=== PATIENT | male | born 1955 | race Caucasian/White ===

== ENCOUNTER → 2017-01-29 | Day surgery (SDC) | payer OTHER ==
[2017-01-20 13:38] VITALS: Ht 175.3 cm; Wt 64.1 kg
[~2017-01-29] VITALS: Ht 175.3 cm; Wt 64.1 kg
[~2017-01-29] MED LIST: ACET-1311 PO; ALUMSUS2 PO; CALC500C3 PO; CHOL20007 PO; CLON0.5T3 PO; DIPH50TA10 PO; ESCI1TAB6 PO; EpHEDrine SULFATE 50MG/5ML SYR ONE; FERR325T51 PO; FLUT115A INH; GLIM4TAB PO; GUAI1TAB55 PO; LIDOCAINE HCL 2% 2 ML VIAL (20MG/ML) ONE; MAGN400T6 PO; METF-384 PO; METO-157 PO; ONDANSETRON INJ 2 MG/ML 2 ML VIAL IV PRN; PENT400T PO; PRLSR20 PO; PROPOFOL IV EMULSION 10 MG/ML 20 ML VIAL IV ONE; RISP0.258 PO; RSTOPS OP; SIMV40TA2 PO; SITA100T3 PO; TIOTCAP INH; TRAZ-119 PO; ZAFI1TAB10 PO
--- NOTE | 2017-01-29 10:32 | Endo History and Physical ---
History & Physical Date of Service: Jan 29, 2017. Chief Complaint: WEIGHT LOSS, HX OF POLYPS Referring Physician: DR MCDONALD History of Present Illness Patient referred for a history of weight loss and numerous colon polyps. Past Medical History Diabetes, Osteoporosis, Fractures, Reflux, High Cholesterol, Sleep Apnea, Thrombophlebitis, COPD, Kidney Disease Past Surgical History Hx Cardiac Surgery: No Hx Internal Defibrillator: No Hx Pacemaker: No Hx Abdominal Surgery: No Hx of Implantable Prosthesis: No Hx Post-Op Nausea and Vomiting: No Hx Cancer Surgery: No Hx Thoracic Surgery: No Hx Orthopedic: No Hx Urinary Tract Surgery: No Family History None Social History Smoking Status: Former Smoker Hx Substance Use: No Hx Alcohol Use: No Allergies Coded Allergies: Aspirin (Verified Allergy, Unknown, UNKNOWN REACTION, 01/29/17) Cephalexin (Verified Allergy, Unknown, UNKNOWN REACTION, 01/29/17) Cephalosporins (Verified Allergy, Unknown, UNKNOWN REACTION, 01/29/17) Corticosteroids (Verified Allergy, Unknown, UNKNOWN REACTION, 01/29/17) Lactose Intolerance (GI) (Verified Allergy, Unknown, GI SYMPTOMS, 01/29/17) Caregiver reports diarrhea after drinking milk Methylprednisolone (Verified Allergy, Unknown, UNKNOWN REACTION, 01/29/17) Shellfish (Verified Allergy, Unknown, UNKNOWN REACTION, 01/29/17) Current Medications Reported Home Medications Medications Dose Route/Sig Max Daily Dose Days Date Category Lexapro (Escitalopram Oxalate) 5 Mg Tab 5 Mg PO QAM 01/20/17 Reported Accolate (Zafirlukast) 20 Mg Tab 20 Mg PO BID 01/20/17 Reported Advair Hfa 115/21 Mcg (Fluticasone-Salmeterol 115/21 Mcg) 1 Aer Aer 2 Puff INH BID 01/20/17 Reported Diphenhydramine Hcl (Diphenhydramine Hcl (Sleep)) 50 Mg Tab 25 Mg PO DAILY PRN 09/08/16 Reported Zocor (Simvastatin) 40 Mg Tab 40 Mg PO HS 12/13/15 Reported Restasis Eye Drops (Cyclosporine) Soln 1 Drop OP BID PRN 12/13/15 Reported Desyrel (Trazodone Hcl) 50 Mg Tab 50 Mg PO HS 12/13/15 Reported Maalox Max Susp (Al Hydrox/Mg Hydrox/Simethicone) Susp 30 Ml PO HS 10/04/15 Reported Amaryl (Glimepiride) 4 Mg Tab 4 Mg PO BIDM 10/04/15 Reported Vitamin D3 (Cholecalciferol) 2,000 Unit Tab 2,000 Unit PO QAM 10/04/15 Reported Mucinex Ext Rel (Guaifenesin) 600 Mg Tab 600 Mg PO Q12 10/04/15 Reported Mag-Ox (Magnesium Oxide) 400 Mg Tab 400 Mg PO BID 10/04/15 Reported Januvia (Sitagliptin Phosphate) 100 Mg Tab 100 Mg PO HS 09/22/15 Reported Risperdal (Risperidone) 0.25 Mg Tab 0.25 Mg PO HS 07/29/15 Reported Klonopin (Clonazepam) 0.5 Mg Tab 1 Tab PO HS 07/29/15 Reported Iron Supplement (Ferrous Sulfate) 325 Mg Tab 1 Tab PO BID 07/29/15 Reported Tums (Calcium Carbonate) 500 Mg Chew 1 Tab PO BID 07/29/15 Reported Prilosec (Omeprazole) 20 Mg Capcr 20 Mg PO QAM 07/29/15 Reported Spiriva Handihaler (Tiotropium [place]) 18 Mcg/ Aerp 1 Cap INH BID 07/29/15 Reported Reglan (Metoclopramide HCl) 10 Mg Tab 5 Mg PO QID 07/28/15 Reported Glucophage (Metformin Hcl) 1,000 Mg Tab 1,000 Mg PO BID 07/28/15 Reported Tylenol (Acetaminophen) 325 Mg Tab 650 Mg PO QAM 07/31/11 Reported Trental (Pentoxifylline) 400 Mg Tabcr 400 Mg PO TIDM 01/23/11 Reported Vital Signs Weight (Kilograms): 64.09 Height (Feet): 5 Height (Inches): 9 Date Time Temp Pulse Resp B/P Pulse Ox O2 Delivery O2 Flow Rate FiO2 01/29/17 10:25 36.9 68 20 123/61 97 Room Air Physical Exam General Appearance: no apparent distress Respiratory/Chest: Auscultation: deminished air movement Cardiovascular: Heart Auscultation: II/ RICHIE Abdomen: Inspection & Palpation: soft Assessment and Plan Patient with a history of numerous colon polyps for a surveillance colonoscopy today. Also referred by PCM for a history of weight loss (unclear if patient is having dysphagia today). plan EGD Colonoscopy
--- NOTE | 2017-01-29 11:19 | GI REPORT ---
Procedure Date: 01/29/2017 10:52 AM Procedure: Upper GI endoscopy Indications: Dysphagia, Weight loss Medicines: Monitored Anesthesia Care Complications: No immediate complications. Estimated blood loss: Minimal. Estimated Blood Loss: Estimated blood loss was minimal. Procedure: Pre-Anesthesia Assessment: - Prior to the procedure, a History and Physical was performed, and patient medications, allergies and sensitivities were reviewed. The patient's tolerance of previous anesthesia was reviewed. - The risks and benefits of the procedure and the sedation options and risks were discussed with the patient. All questions were answered and informed consent was obtained. - Patient identification and proposed procedure were verified prior to the procedure by the physician, the nurse and the cable tester. The procedure was verified in the procedure room. - Pre-procedure physical examination revealed no contraindications to sedation. - ASA Grade Assessment: III - A patient with severe systemic disease. - After reviewing the risks and benefits, the patient was deemed in satisfactory condition to undergo the procedure. - The anesthesia plan was to use monitored anesthesia care (MAC). - Immediately prior to administration of medications, the patient was re-assessed for adequacy to receive sedatives. - The heart rate, respiratory rate, oxygen saturations, blood pressure, adequacy of pulmonary ventilation, and response to care were monitored throughout the procedure. - The physical status of the patient was re-assessed after the procedure. After obtaining informed consent, the endoscope was passed under direct vision. Throughout the procedure, the patient's blood pressure, pulse, and oxygen saturations were monitored continuously. The scope was introduced through the mouth, and advanced to the second part of duodenum. The upper GI endoscopy was accomplished without difficulty. The patient tolerated the procedure well. Findings: Diffuse candidiasis was found in the entire esophagus. Cells for cytology were obtained by brushing. Estimated blood loss was minimal. No endoscopic abnormality was evident in the esophagus to explain the patient's complaint of dysphagia. It was decided, however, to proceed with dilation of the entire esophagus. A guidewire was placed and the scope was withdrawn. Dilation was performed with a Savary dilator with no resistance at 54 Fr. The endoscope was then reinserted to evaluate the success of the procedure. Estimated blood loss was minimal. The Z-line was regular and was found 36 cm from the incisors. Diffuse mild inflammation characterized by congestion (edema), erythema and granularity was found in the entire examined stomach. Biopsies were taken with a cold forceps for histology. Estimated blood loss was minimal. The examined duodenum was normal. Biopsies were taken with a cold forceps for histology. Estimated blood loss was minimal. Impression: - No endoscopic esophageal abnormality to explain patient's dysphagia (perhaps candidiasis). Esophagus dilated to 54 fr - Z-line regular, 36 cm from the incisors. - Gastritis. Biopsied. - Normal examined duodenum. Biopsied. Recommendation: - Perform a colonoscopy today. - Await pathology results. - Return to referring physician as previously scheduled. - Diflucan for 14 days. Mariana Leslie D.O. Mariana Leslie, 01/29/2017 11:19:41 AM This report has been signed electronically. Note Initiated On: 01/29/2017 10:52 AM I attest to the content of the Intraoperative Record and orders documented therein, exceptions below
--- NOTE | 2017-01-29 11:22 | GI REPORT ---
Procedure Date: 01/29/2017 10:52 AM Procedure: Colonoscopy Indications: High risk colon cancer surveillance: Personal history of colonic polyps Medicines: Monitored Anesthesia Care Complications: No immediate complications. Estimated blood loss: Minimal. Estimated Blood Loss: Estimated blood loss was minimal. Procedure: Pre-Anesthesia Assessment: - Prior to the procedure, a History and Physical was performed, and patient medications, allergies and sensitivities were reviewed. The patient's tolerance of previous anesthesia was reviewed. - The risks and benefits of the procedure and the sedation options and risks were discussed with the patient. All questions were answered and informed consent was obtained. - Patient identification and proposed procedure were verified prior to the procedure by the physician, the nurse and the gastroenterology technician. The procedure was verified in the procedure room. - Pre-procedure physical examination revealed no contraindications to sedation. - ASA Grade Assessment: III - A patient with severe systemic disease. - After reviewing the risks and benefits, the patient was deemed in satisfactory condition to undergo the procedure. - The anesthesia plan was to use monitored anesthesia care (MAC). - Immediately prior to administration of medications, the patient was re-assessed for adequacy to receive sedatives. - The heart rate, respiratory rate, oxygen saturations, blood pressure, adequacy of pulmonary ventilation, and response to care were monitored throughout the procedure. - The physical status of the patient was re-assessed after the procedure. After I obtained informed consent, the scope was passed under direct vision. Throughout the procedure, the patient's blood pressure, pulse, and oxygen saturations were monitored continuously. The scope was introduced through the anus and advanced to the cecum, identified by appendiceal orifice and ileocecal valve. The colonoscopy was performed without difficulty. The patient tolerated the procedure well. The quality of the bowel preparation was good. Findings: The digital rectal exam findings include non-thrombosed external hemorrhoids. Pertinent negatives include normal sphincter tone. The terminal ileum appeared normal. A 6 mm polyp was found in the ascending colon. The polyp was sessile. The polyp was removed with a hot snare. Resection and retrieval were complete. Estimated blood loss was minimal. A post polypectomy scar was found at the hepatic flexure. There was no evidence of the previous polyp. Internal hemorrhoids were found during retroflexion. The hemorrhoids were mild. The exam was otherwise without abnormality. Impression: - Non-thrombosed external hemorrhoids found on digital rectal exam. - The examined portion of the ileum was normal. - One 6 mm polyp in the ascending colon, removed with a hot snare. Resected and retrieved. - Post-polypectomy scar at the hepatic flexure. - Internal hemorrhoids. - The examination was otherwise normal. Recommendation: - Discharge patient to home (ambulatory). - Advance diet as tolerated today. - Await pathology results. - Repeat colonoscopy in 3 - 5 years for surveillance based on pathology results. - Return to GI office PRN. Mariana Leslie D.O. Mariana Leslie, 01/29/2017 11:22:12 AM This report has been signed electronically. Note Initiated On: 01/29/2017 10:52 AM I attest to the content of the Intraoperative Record and orders documented therein, exceptions below
--- NOTE | 2017-01-29 11:25 | Discharge Instructions ---
Endoscopy Patient Instructions Date / Procedure(s) Performed Jan 29, 2017. Colonoscopy, EGD Allergy Information Coded Allergies: Aspirin (Verified Allergy, Unknown, UNKNOWN REACTION, 01/29/17) Cephalexin (Verified Allergy, Unknown, UNKNOWN REACTION, 01/29/17) Cephalosporins (Verified Allergy, Unknown, UNKNOWN REACTION, 01/29/17) Corticosteroids (Verified Allergy, Unknown, UNKNOWN REACTION, 01/29/17) Lactose Intolerance (GI) (Verified Allergy, Unknown, GI SYMPTOMS, 01/29/17) Caregiver reports diarrhea after drinking milk Methylprednisolone (Verified Allergy, Unknown, UNKNOWN REACTION, 01/29/17) Shellfish (Verified Allergy, Unknown, UNKNOWN REACTION, 01/29/17) Discharge Date / Findings Jan 29, 2017. Jayshree esophagitis Mild gastirits 1 colon polyp Hemorrhoids Medication Instructions Stopped Medication(s): PER CAREGIVER PATIENT WAS TOLD TO HOLD MEDICATIONS AFTER FRIDAY Reported Home Medications Medications Dose Route/Sig Max Daily Dose Days Date Category Lexapro (Escitalopram Oxalate) 5 Mg Tab 5 Mg PO QAM 01/20/17 Reported Accolate (Zafirlukast) 20 Mg Tab 20 Mg PO BID 01/20/17 Reported Advair Hfa 115/21 Mcg (Fluticasone-Salmeterol 115/21 Mcg) 1 Aer Aer 2 Puff INH BID 01/20/17 Reported Diphenhydramine Hcl (Diphenhydramine Hcl (Sleep)) 50 Mg Tab 25 Mg PO DAILY PRN 09/08/16 Reported Zocor (Simvastatin) 40 Mg Tab 40 Mg PO HS 12/13/15 Reported Restasis Eye Drops (Cyclosporine) Soln 1 Drop OP BID PRN 12/13/15 Reported Desyrel (Trazodone Hcl) 50 Mg Tab 50 Mg PO HS 12/13/15 Reported Maalox Max Susp (Al Hydrox/Mg Hydrox/Simethicone) Susp 30 Ml PO HS 10/04/15 Reported Amaryl (Glimepiride) 4 Mg Tab 4 Mg PO BIDM 10/04/15 Reported Vitamin D3 (Cholecalciferol) 2,000 Unit Tab 2,000 Unit PO QAM 10/04/15 Reported Mucinex Ext Rel (Guaifenesin) 600 Mg Tab 600 Mg PO Q12 10/04/15 Reported Mag-Ox (Magnesium Oxide) 400 Mg Tab 400 Mg PO BID 10/04/15 Reported Januvia (Sitagliptin Phosphate) 100 Mg Tab 100 Mg PO HS 09/22/15 Reported Risperdal (Risperidone) 0.25 Mg Tab 0.25 Mg PO HS 07/29/15 Reported Klonopin (Clonazepam) 0.5 Mg Tab 1 Tab PO HS 07/29/15 Reported Iron Supplement (Ferrous Sulfate) 325 Mg Tab 1 Tab PO BID 07/29/15 Reported Tums (Calcium Carbonate) 500 Mg Chew 1 Tab PO BID 07/29/15 Reported Prilosec (Omeprazole) 20 Mg Capcr 20 Mg PO QAM 07/29/15 Reported Spiriva Handihaler (Tiotropium [place]) 18 Mcg/ Aerp 1 Cap INH BID 07/29/15 Reported Reglan (Metoclopramide HCl) 10 Mg Tab 5 Mg PO QID 07/28/15 Reported Glucophage (Metformin Hcl) 1,000 Mg Tab 1,000 Mg PO BID 07/28/15 Reported Tylenol (Acetaminophen) 325 Mg Tab 650 Mg PO QAM 07/31/11 Reported Trental (Pentoxifylline) 400 Mg Tabcr 400 Mg PO TIDM 01/23/11 Reported Provider Instructions Activity Restrictions - No exercising or heavy lifting for 24 hours. - Do not drink alcohol the day of the procedure. - Do not drive a car or operate machinery until the day after the procedure. - Do not make any important decisions or sign important papers in 24 hours after the procedure. Following Day: - Return to full activity which may include returning to work/school. Diet Start your diet with liquids and light foods (jello, soup, juice, toast). Then eat your usual diet if not nauseated. Treatment For Common After Affects For mild abdominal pain, bloating, or excessive gas: - Rest - Eat lightly - Lie on right side Follow-Up Information Diflucan 100 mg per day x 2 weeks Please stop Zocor 5 days prior to starting Anesthesia Information What You Should Know You have had a procedure that required some medicine to reduce anxiety and discomfort. This treatment is called moderate sedation. After receiving the treatment, you may be sleepy, but you will be able to breathe on your own. The effects of the treatment may last for several hours. Follow these instructions along with Activity/Diet recommendations noted above: * Do NOT do anything where dizziness or clumsiness would be dangerous. * Rest quietly at home today, then you can be up and about tomorrow. * Have a responsible person stay with you the rest of today. * You may have had an I.V. today. If so, you may take the dressing off later today. Recommendations Call your doctor if: * Trouble breathing * Continuous vomiting for more than 24 hours * Temperature above 101 degrees * Severe abdominal pain or bloating * Pain not relieved by pain medicine ordered * There is increased drainage or redness from any incision * A large amount of rectal bleeding greater than 2-3 tablespoons. (If you had a polyp/s removed or have hemorrhoids, a small amount of blood - from the rectum is to be expected.) * You have any unanswered questions or concerns. IN THE EVENT OF A SERIOUS EMERGENCY, GO TO THE NEAREST EMERGENCY ROOM Your discharge instructions were prepared by provider Mariana Leslie. Patient Instructions Signature Page Isai Kendall Patient (or Guardian) Signature/Date: I have read and understand the instructions given to me by my caregivers. Caregiver/RN/Doctor Signature/Date: The above-named patient and/or guardian has received patient instructions on this date. + Original Patient Signature Page (only) stays with chart. Please make copy for patient.
[2017-01-29 11:55] VITALS: BP 131/60; PULSE 84; O2SAT 100
--- NOTE | 2017-01-29 12:04 | Anesthesiology Progress Note ---
Anesthesia Post Op Note Date & Time Jan 29, 2017 at 12:04 Vital Signs Pain Intensity: 0 Vital Signs Past 12 Hours Date Time Temp Pulse Resp B/P Pulse Ox O2 Delivery O2 Flow Rate FiO2 01/29/17 11:55 84 20 131/60 100 Room Air 01/29/17 11:40 88 20 107/67 99 Room Air 01/29/17 11:25 90 16 88/56 99 Room Air 01/29/17 10:25 36.9 68 20 123/61 97 Room Air Notes Mental Status: alert / awake / arousable, participated in evaluation Pt Amnestic to Procedure: Yes Nausea / Vomiting: adequately controlled Pain: adequately controlled Airway Patency, RR, SpO2: stable & adequate BP & HR: stable & adequate Hydration State: stable & adequate Anesthetic Complications: no major complications apparent Pt doing well.
== END | disposition home or self-care (01) ==
LOC: C.GI 09:34
PROVIDERS: ATTEND Internal Medicine Gastroenterology
DX: Z12.11 Encounter for screening for malignant neoplasm of colon (principal); R13.10 Dysphagia, unspecified; Z86.010 Personal history of colon polyps; R63.4 Abnormal weight loss; D12.2 Benign neoplasm of ascending colon; K29.70 Gastritis, unspecified, without bleeding; K64.4 Residual hemorrhoidal skin tags; K64.8 Other hemorrhoids; K21.9 Gastro-esophageal reflux disease without esophagitis; E11.9 Type 2 diabetes mellitus without complications; G47.30 Sleep apnea, unspecified; J44.9 Chronic obstructive pulmonary disease, unspecified; M81.0 Age-related osteoporosis without current pathological fracture; I80.9 Phlebitis and thrombophlebitis of unspecified site; E78.5 Hyperlipidemia, unspecified; F17.210 Nicotine dependence, cigarettes, uncomplicated; Z88.5 Allergy status to narcotic agent; Z88.8 Allergy status to other drugs, medicaments and biological substances

== ENCOUNTER 2018-01-29 07:53 | Emergency (ER) | payer OTHER ==
[~2018-01-29 07:53] MED LIST changes: -EpHEDrine SULFATE 50MG/5ML SYR ONE; -LIDOCAINE HCL 2% 2 ML VIAL (20MG/ML) ONE; -ONDANSETRON INJ 2 MG/ML 2 ML VIAL IV PRN; -PROPOFOL IV EMULSION 10 MG/ML 20 ML VIAL IV ONE
[2018-01-29 08:04] VITALS: TEMP 36.8
--- NOTE | 2018-01-29 08:45 | EMERGENCY ROOM VISIT NOTE ---
ED Visit Note First contact with patient: 07:55 I have seen and examined this patient with Sandeep Horan and generally agree with the treatment plan as discussed. 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: Chronic (4) Diab Sunshine Wo Compl, Type Ii Or Unspec Type, Not Uncntrld Status: Chronic (5) Esophageal Reflux Status: Chronic (6) Pancreatic Disease Nos Status: Chronic Current/Historical Medications Scheduled Acetaminophen (Tylenol), 650 MG PO QAM Aluminum/Magnesium/Simeth (Maalox Max Susp), 30 ML PO HS Calcium Carbonate (Tums), 1 TAB PO BID Cholecalciferol (Vitamin D3), 2,000 UNIT PO QAM Clonazepam (Klonopin), 1 TAB PO HS Escitalopram Oxalate (Lexapro), 5 MG PO QAM Ferrous Sulfate (Iron Supplement), 1 TAB PO BID Fluticasone-Salmeterol 115/21 Mcg (Advair Hfa 115/21 Mcg), 2 PUFF INH BID Glimepiride (Amaryl), 4 MG PO BIDM Guaifenesin Ext Rel (Mucinex Ext Rel), 600 MG PO Q12 Magnesium Oxide (Mag-Ox), 400 MG PO BID Metformin Hcl (Glucophage), 1,000 MG PO BID Metoclopramide (Reglan), 5 MG PO QID Omeprazole (Prilosec), 20 MG PO QAM Pentoxifylline (Trental), 400 MG PO TIDM Risperidone (Risperdal), 0.25 MG PO HS Simvastatin (Zocor), 40 MG PO HS Sitagliptin Phosphate (Januvia), 100 MG PO HS Tiotropium [place] (Spiriva Handihaler), 1 CAP INH BID Trazodone Hcl (Desyrel), 50 MG PO HS Zafirlukast (Accolate), 20 MG PO BID Scheduled PRN Cyclosporine (Restasis Eye Drops), 1 DROP OP BID PRN for DRY EYES Diphenhydramine Hcl (Sleep) (Diphenhydramine Hcl), 25 MG PO DAILY PRN for allergies Allergies Coded Allergies: Aspirin (Verified Allergy, Unknown, UNKNOWN REACTION, 01/29/17) Cephalexin (Verified Allergy, Unknown, UNKNOWN REACTION, 01/29/17) Cephalosporins (Verified Allergy, Unknown, UNKNOWN REACTION, 01/29/17) Corticosteroids (Verified Allergy, Unknown, UNKNOWN REACTION, 01/29/17) Lactose Intolerance (GI) (Verified Allergy, Unknown, GI SYMPTOMS, 01/29/17) Caregiver reports diarrhea after drinking milk Methylprednisolone (Verified Allergy, Unknown, UNKNOWN REACTION, 01/29/17) Shellfish (Verified Allergy, Unknown, UNKNOWN REACTION, 01/29/17) Vital Signs Date Time Temp Pulse Resp B/P (MAP) Pulse Ox O2 Delivery O2 Flow Rate FiO2 01/29/18 08:04 36.8 86 20 127/62 96 Room Air Laboratory Results Test 01/29/18 08:24 Bedside Glucose 276 mg/dl (70-99) Departure Information Referrals Andrew Montague III, M.D. (PCP) Patient Instructions My [facility]
--- NOTE | 2018-01-29 09:01 | DIAGNOSTIC IMAGING REPORT ---
HEAD CT NONCONTRAST CT DOSE: 1612.57 mGycm HISTORY: Fall with injuries TECHNIQUE: Multiaxial CT images of the head were performed without the use of intravenous contrast. Automated exposure control was utilized for this study. A dose lowering technique was utilized adhering to the principles of ALARA. Comparison: None. Findings: The paranasal sinuses and mastoid air cells are clear. The calvarium and skull base are intact. There is no mass, hematoma, midline shift, acute infarct. White matter hypodensity is nonspecific but suggestive of microvascular ischemic change. The ventricles and sulci demonstrate mild age-related involutional changes. Mild motion artifact. Impression: No acute intracranial abnormality. Electronically signed by: Luan Nair M.D. 01/29/2018 8:59 AM Dictated Date/Time: 01/29/2018 8:53 AM
[2018-01-29] MEDS ORDERED: LACT12LO28 TOP (09:20)
[2018-01-29] MEDS ORDERED: DENO60SO SQ (09:20)
--- NOTE | 2018-01-29 09:23 | DIAGNOSTIC IMAGING REPORT ---
L HIP UNILATERAL 2 VIEWS CLINICAL HISTORY: Left hip pain status post trauma COMPARISON: None. DISCUSSION: No fractures or dislocations are visualized. IMPRESSION: No fractures identified. Electronically signed by: Blair Breaux M.D. 01/29/2018 9:22 AM Dictated Date/Time: 01/29/2018 9:22 AM
--- NOTE | 2018-01-29 09:27 | DIAGNOSTIC IMAGING REPORT ---
L KNEE 3 VIEWS CLINICAL HISTORY: Left knee pain status post trauma COMPARISON: None. DISCUSSION: The bones are osteopenic. There is an old proximal fibular fracture. There is proximal tibiofibular fusion. There are no acute fractures. There are degenerative changes with narrowing of the lateral joint compartment. There is corticated fragmentation of the medial patella. This is felt to be old. IMPRESSION: 1. Osteopenia 2. Old posttraumatic changes 3. No acute fractures 4. Degenerative changes within the lateral joint compartment Electronically signed by: Blair Breaux M.D. 01/29/2018 9:25 AM Dictated Date/Time: 01/29/2018 9:24 AM
[2018-01-29 10:13] VITALS: BP 134/87; PULSE 67; O2SAT 97
--- NOTE | 2018-01-29 13:13 | EMERGENCY ROOM VISIT NOTE ---
History First contact with patient: 07:55 Chief Complaint: FALL Stated Complaint: FALL/L-HIP PAIN History of Present Illness The patient is a 62 year old male [facility] patient, history of mental retardation , type 2 diabetes, bilateral hearing loss and COPD, who presents to the Emergency Room via ambulance for evaluation of injuries from a fall last night/ early this morning. According to EMS, it was uncertain as to whether this fall was witnessed. Upon their arrival, the patient was complaining of left hip pain , however was able to walk to the ambulance with his walker. When asked if the patient had any additional pain on initial evaluation in the emergency department, he reported left knee pain. He was found to have an area of bruising over the medial aspect of the knee. The patient currently denies any other pain, including back pain, neck pain, headache, chest pain or shortness of breath. The patient reports that he is otherwise been healthy recently. He rates his discomfort a 4 out of 10. After staff members arrived from [facility], it was determined that they did hear the patient fall this morning. He immediately called for help, and was found sitting on his buttocks against the wall. They believe that he hit his knee on his walker when he fell. There was no loss of consciousness. They report that he was able to ambulate with his walker, but elected to send him to the emergency department for further evaluation of injuries. Review of Systems Complete review of systems was difficult because of mental retardation history Past Medical/Surgical History Medical Problems: (1) Anemia Nos (2) Asthma, Unspecified (3) Dementia, Unspecified, Without Behavioral Disturbance (4) Diab Sunshine Wo Compl, Type Ii Or Unspec Type, Not Uncntrld (5) Esophageal Reflux (6) Hospital-acquired pneumonia (7) Pancreatic Disease Nos (8) Pneumonia Family History Heart disease Social History Smoking Status: Never Smoker Alcohol Use: occasionally Drug Use: none Marital Status: single Housing Status: other Occupation Status: unemployed, disabled Current/Historical Medications Scheduled Acetaminophen (Tylenol), 650 MG PO QAM Aluminum/Magnesium/Simeth (Maalox Max Susp), 30 ML PO HS Calcium Carbonate (Tums), 1 TAB PO BID Cholecalciferol (Vitamin D3), 2,000 UNIT PO QAM Clonazepam (Klonopin), 0.25 MG PO HS Denosumab (Prolia), 60 MG SQ Q6MO Escitalopram Oxalate (Lexapro), 5 MG PO QAM Ferrous Sulfate (Iron Supplement), 1 TAB PO BID Glimepiride (Amaryl), 4 MG PO BIDM Guaifenesin Ext Rel (Mucinex Ext Rel), 600 MG PO Q12 Magnesium Oxide (Mag-Ox), 400 MG PO BID Metoclopramide (Reglan), 5 MG PO QID Omeprazole (Prilosec), 20 MG PO QAM Pentoxifylline (Trental), 400 MG PO TIDM Risperidone (Risperdal), 0.25 MG PO HS Simvastatin (Zocor), 40 MG PO HS Sitagliptin Phosphate (Januvia), 100 MG PO HS Tiotropium [place] (Spiriva Handihaler), 1 CAP INH BID Trazodone Hcl (Desyrel), 50 MG PO 2000 Zafirlukast (Accolate), 20 MG PO BID Scheduled PRN Lactic Acid (Ammonium Lactate) (Ammonium Lactate), 0 TOP UD PRN for DRYNESS Physical Exam Vital Signs Date Time Temp Pulse Resp B/P (MAP) Pulse Ox O2 Delivery O2 Flow Rate FiO2 01/29/18 10:13 67 20 134/87 97 01/29/18 08:04 36.8 86 20 127/62 96 Room Air Physical Exam CONSTITUTIONAL: Healthy and well nourished. Alert and oriented X 3 with positive affect. Patient does not appear in any acute distress. GCS 15. HEENT: Normocephalic, atraumatic. Pupils equal, round and reactive. No obvious scalp hematomas, abrasions, ecchymosis, epistaxis, hemotympanum, raccoon 's eyes or leal sign. NECK: Full active range of motion without discomfort. No focal tenderness to palpation through the central cervical spine or cervical musculature. RESPIRATORY: Clear to auscultation bilaterally with no wheezing, crackles, rhonchi or stridor. CARDIOVASCULAR: Regular rate and rhythm with a grade 2 out of 6 systolic ejection murmur. No rubs or gallops. GASTROINTESTINAL: Bowel sounds present in all quadrants. Soft and nontender to palpation. MUSCULOSKELETAL: Examination shows generalized tenderness to palpation over the left lateral hip with an area of ecchymosis. He also has an area of ecchymosis and edema over the left medial knee region. Patient has no significant worsening discomfort with range of motion of the hip or knee. Pelvis stable with rock. Patient has no other tenderness to palpation through the other extremities, ribs or thoracic or lumbar spine. Equal handgrip bilaterally. Ankle plantar/dorsiflexion strength is 4 out of 5 and symmetric bilaterally. The patient has calluses over the lateral plantar foot region without evidence for infection. Distal pulses are intact. INTEGUMENTARY: No rash or other significant dermatologic conditions noted. NEUROLOGIC: No focal neurologic deficits noted. Upper and lower extremities are sensory intact. Medical Decision & Procedures ER Provider Diagnostic Interpretation: My interpretation of an ECG shows a normal sinus rhythm of [address] elevation or other conduction abnormalities. Noncontrast CT of the head does not show any intracranial bleed, midline shift or mass-effect. Radiologist report is as follows: HEAD CT NONCONTRAST CT DOSE: 1612.57 mGycm HISTORY: Fall with injuries TECHNIQUE: Multiaxial CT images of the head were performed without the use of intravenous contrast. Automated exposure control was utilized for this study. A dose lowering technique was utilized adhering to the principles of ALARA. Comparison: None. Findings: The paranasal sinuses and mastoid air cells are clear. The calvarium and skull base are intact. There is no mass, hematoma, midline shift, acute infarct. White matter hypodensity is nonspecific but suggestive of microvascular ischemic change. The ventricles and sulci demonstrate mild age-related involutional changes. Mild motion artifact. Impression: No acute intracranial abnormality. My interpretation of left hip x-rays does not show any obvious fractures or dislocation. Radiologist report is as follows: L HIP UNILATERAL 2 VIEWS CLINICAL HISTORY: Left hip pain status post trauma COMPARISON: None. DISCUSSION: No fractures or dislocations are visualized. IMPRESSION: No fractures identified. My interpretation of left knee x-rays does not show any obvious fractures, dislocation or joint effusion. Radiologist report is as follows: L KNEE 3 VIEWS CLINICAL HISTORY: Left knee pain status post trauma COMPARISON: None. DISCUSSION: The bones are osteopenic. There is an old proximal fibular fracture. There is proximal tibiofibular fusion. There are no acute fractures. There are degenerative changes with narrowing of the lateral joint compartment. There is corticated fragmentation of the medial patella. This is felt to be old. IMPRESSION: 1. Osteopenia 2. Old posttraumatic changes 3. No acute fractures 4. Degenerative changes within the lateral joint compartment Laboratory Results Test 01/29/18 08:24 Bedside Glucose 276 mg/dl (70-99) ED Course Patient history and physical exam were performed. Nurse's notes were reviewed. Vital signs were reviewed and were normal. Patient does not appear in any acute distress. BSG was 276.ECG was normal. Noncontrast CT of the head did not show any acute fractures or intracranial bleed. X-rays of the left hip and left knee were also both normal. On reexam, the nurse told me that the patient was able to ambulate to the bathroom with his walker without any obvious discomfort. At this point, staff from [facility] was present. They were encouraged to intermittently apply ice to areas of discomfort. Continue using his walker to minimize risk of falling. The patient already takes Tylenol daily as needed for pain. I did suggest PCP follow-up with any persistent pain. Both the patient and staff member voiced understanding of all discharge instructions, and the patient denied any significant pain at the time of discharge. The patient was also seen and examined by Dr. Herrera, ED attending physician, who agrees with workup and plan of care. Medical Decision Medication Reconcilliation Current Medication List: was personally reviewed by me Blood Pressure Screening Patient's blood pressure: Normal blood pressure Impression Primary Impression: Contusion of left hip Additional Impressions: Contusion of left knee Fall from ground level Departure Information Referrals Andrew Montague III, M.D. (PCP) Patient Instructions My [facility] Problem Qualifiers Primary Impression: Contusion of left hip Encounter type: initial encounter Qualified Codes: S70.02XA - Contusion of left hip, initial encounter Additional Impressions: Contusion of left knee Encounter type: initial encounter Qualified Codes: S80.02XA - Contusion of left knee, initial encounter
== END 2018-01-29 10:15 | disposition home or self-care (01) ==
LOC: EDBD 07:53 → C.EDB 07:56
DX: S70.02XA Contusion of left hip, initial encounter (principal); S80.02XA Contusion of left knee, initial encounter; W18.30XA Fall on same level, unspecified, initial encounter; E11.9 Type 2 diabetes mellitus without complications; F79 Unspecified intellectual disabilities; J44.9 Chronic obstructive pulmonary disease, unspecified; J45.909 Unspecified asthma, uncomplicated; F03.90 Unspecified dementia, unspecified severity, without behavioral disturbance, psychotic disturbance, mood disturbance, and anxiety; K21.9 Gastro-esophageal reflux disease without esophagitis; Z87.01 Personal history of pneumonia (recurrent); Z79.899 Other long term (current) drug therapy; Z88.6 Allergy status to analgesic agent; Z88.1 Allergy status to other antibiotic agents; Z88.8 Allergy status to other drugs, medicaments and biological substances; Z91.013 Allergy to seafood

== ENCOUNTER 2021-03-02 16:32 | Inpatient (IN) ==
[2021-03-02] MEDS ORDERED: ONDANSETRON INJ 2 MG/ML 2 ML VIAL IV STA (17:13)
[2021-03-02] MEDS ORDERED: SODIUM CHLORIDE 0.9% 500 ML IV SCH (17:15)
[2021-03-02] MEDS ORDERED: NovoLIN-R INSULIN PER UNIT CHARGE IV STA ×2 (17:16→18:28)
--- NOTE | 2021-03-02 17:19 | Emergency Department Note ---
Impression & Plan Hypotension, Pneumonia, Elevated troponin, Diffuse abdominal pain ED Provider Note NAME: JIMMY MABRY AGE: 65 SEX: M : 1955 ARRIVES VIA: Ambulance INFORMANT: [Patient][staff] ED PROVIDER(S): [Beka Sears MD] CHIEF COMPLAINT: Hyperglycemia HISTORY OF PRESENT ILLNESS: The patient is a 65-year-old male presents to the ER with high blood sugars. The sugar has been over 400. The patient has complained of some fatigue and abdominal pain. There has been no vomiting, no fever. The staff at [facility] has noticed a slight cough. The patient cannot give any real history because of his mental state. His caregivers provided the history for us. When asked, the patient complains of some abdominal pain, he denies other areas of pain. No further history obtainable given the mental state. REVIEW OF SYSTEMS: Unobtainable given his mental state. PMHx/PSHx: See Below SOCIAL HISTORY: See Below. PHYSICAL EXAM: GENERAL: Patient is in no acute distress. HEENT: No acute trauma, normocephalic atraumatic, mucous membranes moist, no nasal congestion, no scleral icterus. NECK: No stridor, no adenopathy, no meningismus, trachea is midline. LUNGS: Clear to auscultation bilaterally when listening anteriorly, no wheeze, no rhonchi, breath sounds equal. No respiratory distress. HEART: 2/6 systolic murmur, regular rate and rhythm. ABDOMEN: Soft, mildly diffusely tender, bowel sounds positive, no hernias, no peritonitis. EXTREMITIES: No cyanosis or edema, full range of motion of all the joints without pain or difficulty, no signs for acute trauma. NEUROLOGIC: Awake and alert, no acute motor or sensory deficits, no focal weakness. SKIN: No rash, no jaundice, no diaphoresis. DIFFERENTIAL DIAGNOSIS: Infection, dehydration, metabolic abnormality, diverticulitis, bowel obstruction, DKA, hypo/hyperglycemia, electrolyte disturbance, anemia, hypoxia, cardiac sources, intracerebral event, toxicologic issues, stroke, TIA, as well as other pathologies. EMERGENCY DEPARTMENT COURSE/PROCEDURES: ECG: Indication was abdominal pain. The ECG shows a normal sinus rhythm with a rate of 70. There is no ST elevation, no PVCs. The QTc is 408. Continuous Cardiac Monitoring: An order was placed for continuous cardiac monitoring. The monitor shows a rate of 75 with normal sinus rhythm. Critical Care Note: I have personally spent 47 minutes of critical care time in the direct management of this patient. This includes bedside care, interpreta tion of diagnostic studies, and testing, discussion with consultants, patient, and family members, and other required patient management activities. This 47 minutes is in excess of all separately billable procedures. MEDICAL DECISION MAKING: There is no leukocytosis. The patient does have anemia with a hemoglobin of 10.8. This is a slight drop for him but does not require any emergent correction. Patient did have a lower platelet count but this is baseline loo maldonado back at previous testing. There is no coagulopathy. No kidney failure. Glucose was high at over 300. Lactic acid level was not elevated making severe sepsis less likely. Magnesium was somewhat low at 1.6. No worrisome liver enzyme elevation. Patient appeared to be in a euthyroid state. ECG shows a sinus rhythm, no acute ischemic change. Cardiac enzyme testing x1 does show a slight elevation, this elevation would be consistent with cardiac injury or strain. Urinalysis does not show infection. Covid and influenza testing were negative. Chest film does show a left lung pneumonia. Abdominal and pelvis CT does not show any bowel obstruction. There was some constipation. The left lung pneumonia was seen on the CT. The patient received IV saline, he was given a total of 1 L. He received IV Levaquin as antibiotic coverage. He was given IV magnesium. Patient did receive IV insulin, 6 units. The patient presents with some abdominal pain and cough. He appears to have pne umonia by work-up. He does have a lower blood pressure, he has a high blood sugar. He has an elevated troponin. Given his findings and presentation, a hospital stay is warranted. I spoke to the patient and his staff. I spoke with case management. The on- call hospitalist was consulted. Past Med/Surg History Medical History COPD (chronic obstructive pulmonary disease) Diabetes mellitus, type II GERD (gastroesophageal reflux disease) Intellectual disability [place] (obstructive sleep apnea) PNA (pneumonia) Presence of IVC filter PVD (peripheral vascular disease) Surgical History History of cholecystectomy Family History (Updated 03/02/21 @ 21:34 by Ting Lara PA-C) Father Coronary heart disease Social History Smoking Status: Former smoker Hx Alcohol Use: No Hx Substance Use: No Current Living Situation: Other Current Living Situation Comment: Skills Feels Safe at Home: Yes Allergies Allergies Allergy/AdvReac Type Severity Reaction Status Date / Time lactose Allergy Intermediate GI SYMPTOMS Verified 03/02/21 17:17 aspirin Allergy Unknown UNKNOWN Verified 03/02/21 17:17 REACTION cephalexin Allergy Unknown UNKNOWN Verified 03/02/21 17:17 REACTION Cephalosporins Allergy Unknown UNKNOWN Verified 03/02/21 17:17 REACTION Corticosteroids Allergy Unknown UNKNOWN Verified 03/02/21 17:17 (Glucocorticoids) REACTION methylprednisolone Allergy Unknown UNKNOWN Verified 03/02/21 17:17 REACTION shellfish derived Allergy Unknown UNKNOWN Verified 03/02/21 17:17 REACTION Home Meds Home Medications Medication Instructions Recorded Confirmed acetaminophen 650 mg PO BID 12/23/18 03/02/21 acetaminophen 650 mg PO Q4H PRN MDD 3 GRAM/24 12/23/18 03/02/21 HOURS albuterol sulfate [ProAir HFA] 2 puff INHALATION Q4H PRN 12/23/18 03/02/21 calcium carbonate [Tums] 1 tab PO BID 12/23/18 03/02/21 cholecalciferol (vitamin D3) 1,000 unit PO QAM 12/23/18 03/02/21 [Vitamin D3] clonazepam 0.25 mg PO BID 12/23/18 03/02/21 denosumab [Prolia] 60 mg SUBCUT DIRECTED 12/23/18 03/02/21 escitalopram oxalate [Lexapro] 5 mg PO QAM 12/23/18 03/02/21 glimepiride [Amaryl] 4 mg PO BIDM 12/23/18 03/02/21 guaifenesin [Mucinex] 600 mg PO Q12H 12/23/18 03/02/21 loperamide [Imodium A-D] 2 mg PO UD PRN 12/23/18 03/02/21 magnesium oxide 400 mg PO BID 12/23/18 03/02/21 metformin 1,000 mg PO QAM 12/23/18 03/02/21 metoclopramide HCl [Reglan] 5 mg PO ACHS 12/23/18 03/02/21 omeprazole 20 mg PO QAM 12/23/18 03/02/21 simvastatin [Zocor] 40 mg PO HS 12/23/18 03/02/21 sitagliptin [Januvia] 100 mg PO QAM 12/23/18 03/02/21 trazodone 50 mg PO HS 12/23/18 03/02/21 zafirlukast [Accolate] 20 mg PO BID 12/23/18 03/02/21 alum-mag hydroxide-simeth [Maalox 30 ml PO QPM 04/03/20 03/02/21 Advanced] loratadine [Claritin] 10 mg PO DAILY 04/03/20 03/02/21 pentoxifylline 400 mg PO TID 04/03/20 03/02/21 risperidone 0.25 mg PO QPM 04/03/20 03/02/21 haloperidol 0.5 mg PO BID PRN 03/02/21 03/02/21 umeclidinium [Incruse Ellipta] 1 inh INHALATION DAILY 03/02/21 03/02/21 Results & Data (ED) Vital Signs Vital Signs - 24 hr 03/02/21 16:36 03/02/21 16:40 03/02/21 16:58 Temperature 37.3 C Temperature Source Oral Pulse Rate 77 75 79 Pulse Rate [Bilateral Apical] Pulse Rate from SpO2 Sensor 77 79 Pulse Rhythm Regular Regular Pulse Strength Normal Pulse Strength [Bilateral Apical] Respiratory Rate 25 H 24 25 H Respiratory Effort / Characteristics Non-Labored Spontaneous Respiratory Depth Normal Respiratory Pattern Regular Blood Pressure 101/54 L Blood Pressure [Left Arm] Blood Pressure Mean 69 Blood Pressure Mean [Left Arm] Blood Pressure Position Sitting Pulse Oximetry 95 90 95 Oxygen Delivery Method Room Air Room Air Sepsis Recent Fever Within 48 Hours Yes Sepsis New/Unexplained Change in Mental Status No Sepsis Action Taken by Nursing No Action Required 03/02/21 17:00 03/02/21 17:01 03/02/21 17:10 Temperature Temperature Source Pulse Rate 78 78 77 Pulse Rate [Bilateral Apical] Pulse Rate from SpO2 Sensor 78 78 78 Pulse Rhythm Pulse Strength Pulse Strength [Bilateral Apical] Respiratory Rate 22 25 H 22 Respiratory Effort / Characteristics Respiratory Depth Respiratory Pattern Blood Pressure 90/63 L Blood Pressure [Left Arm] Blood Pressure Mean 72 Blood Pressure Mean [Left Arm] Blood Pressure Position Pulse Oximetry 95 95 96 Oxygen Delivery Method Sepsis Recent Fever Within 48 Hours Sepsis New/Unexplained Change in Mental Status Sepsis Action Taken by Nursing 03/02/21 17:20 03/02/21 17:30 03/02/21 17:31 Temperature Temperature Source Pulse Rate 79 80 78 Pulse Rate [Bilateral Apical] Pulse Rate from SpO2 Sensor 78 79 78 Pulse Rhythm Pulse Strength Pulse Strength [Bilateral Apical] Respiratory Rate 26 H 18 24 Respiratory Effort / Characteristics Respiratory Depth Respiratory Pattern Blood Pressure 92/51 L Blood Pressure [Left Arm] Blood Pressure Mean 64 Blood Pressure Mean [Left Arm] Blood Pressure Position Pulse Oximetry 98 97 96 Oxygen Delivery Method Sepsis Recent Fever Within 48 Hours Sepsis New/Unexplained Change in Mental Status Sepsis Action Taken by Nursing 03/02/21 17:40 03/02/21 17:50 03/02/21 18:00 Temperature Temperature Source Pulse Rate 75 75 77 Pulse Rate [Bilateral Apical] Pulse Rate from SpO2 Sensor 75 75 77 Pulse Rhythm Pulse Strength Pulse Strength [Bilateral Apical] Respiratory Rate 24 26 H 23 Respiratory Effort / Characteristics Respiratory Depth Respiratory Pattern Blood Pressure 98/54 L Blood Pressure [Left Arm] Blood Pressure Mean 68 Blood Pressure Mean [Left Arm] Blood Pressure Position Pulse Oximetry 97 97 96 Oxygen Delivery Method Sepsis Recent Fever Within 48 Hours Sepsis New/Unexplained Change in Mental Status Sepsis Action Taken by Nursing 03/02/21 18:01 03/02/21 18:30 03/02/21 18:31 Temperature Temperature Source Pulse Rate 75 69 68 Pulse Rate [Bilateral Apical] Pulse Rate from SpO2 Sensor 75 69 69 Pulse Rhythm Pulse Strength Pulse Strength [Bilateral Apical] Respiratory Rate 23 21 20 Respiratory Effort / Characteristics Respiratory Depth Respiratory Pattern Blood Pressure 91/49 L Blood Pressure [Left Arm] Blood Pressure Mean 63 Blood Pressure Mean [Left Arm] Blood Pressure Position Pulse Oximetry 96 97 97 Oxygen Delivery Method Sepsis Recent Fever Within 48 Hours Sepsis New/Unexplained Change in Mental Status Sepsis Action Taken by Nursing 03/02/21 19:05 03/02/21 19:46 03/02/21 20:48 Temperature Temperature Source Pulse Rate Pulse Rate [Bilateral Apical] 77 71 Pulse Rate from SpO2 Sensor Pulse Rhythm Pulse Strength Pulse Strength [Bilateral Apical] Normal Respiratory Rate 20 20 20 Respiratory Effort / Characteristics Respiratory Depth Respiratory Pattern Blood Pressure Blood Pressure [Left Arm] 81/53 L 99/57 L 86/51 L Blood Pressure Mean Blood Pressure Mean [Left Arm] 62 71 62 Blood Pressure Position Pulse Oximetry 95 99 97 Oxygen Delivery Method Room Air Room Air Room Air Sepsis Recent Fever Within 48 Hours Sepsis New/Unexplained Change in Mental Status Sepsis Action Taken by Jail Medications Current Medication List: was personally reviewed by me Laboratory Data Attestation: I reviewed the patient's lab results. Result diagrams: 03/02/21 17:10 03/02/21 17:10 Lab Results 03/02/21 03/02/21 03/02/21 Range/Units 16:42 16:44 17:10 WBC 10.72 (4.8-10.8) K/uL RBC 3.37 L (4.7-6.1) M/uL Hgb 10.8 L (14.0-18.0) g/dL Hct 34.5 L (42-52) % MCV 102.4 H (80-100) fL MCH 32.0 (25-34) pg MCHC 31.3 L (32-36) g/dL RDW Std Deviation 53.4 H (36.4-46.3) fL RDW Coeff of Drew 14.2 (11.5-14.5) % Plt Count 129 L (130-400) K/uL MPV 11.1 H (7.4-10.4) fL Immature Gran % (Auto) 0.1 % Neut % (Auto) 86.4 % Lymph % (Auto) 6.7 % [place] % (Auto) 6.6 % Eos % (Auto) 0.1 % Baso % (Auto) 0.1 % Neut # (Auto) 9.26 H (1.4-6.5) K/uL Lymph # (Auto) 0.72 L (1.2-3.4) K/uL [place] # (Auto) 0.71 H (0.11-0.59) K/uL Eos # (Auto) 0.01 (0-0.5) K/uL Baso # (Auto) 0.01 (0-0.2) K/uL Immature Gran # (Auto) 0.01 (0.00-0.02) K/uL PT (9.0-12.0) Seconds INR (0.9-1.1) APTT (21.0-31.0) Seconds PTT Ratio Sodium (136-145) mmol/L Potassium (3.5-5.1) mmol/L Chloride (98-107) mmol/L Carbon Dioxide (21-32) mmol/L Anion Gap (3-11) BUN (7-18) mg/dl Creatinine (0.6-1.4) mg/dl Est Cr Clr Drug Dosing ml/min Est GFR ( Amer) Est GFR (Non-Af Amer) BUN/Creatinine Ratio (10-20) Glucose (70-99) mg/dl POC Glucose 328 H* 345 H* (70-99) mg/dl Lactate (0.4-2.0) mmol/L Calcium (8.5-10.1) mg/dl Magnesium (1.8-2.4) mg/dl Total Bilirubin (0.2-1) mg/dl AST (15-37) U/L ALT (12-78) U/L Alkaline Phosphatase (45-117) U/L Troponin I (0-0.045) ng/ml Total Protein (6.4-8.2) gm/dl Albumin (3.4-5.0) gm/dl Globulin (2.5-4.0) gm/dl Albumin/Globulin Ratio (0.9-2) Beta-Hydroxybutyric Acd TSH (0.300-4.500) uIu/ml Urine Color Urine Appearance (Clear) Urine pH (4.5-7.5) Ur Specific Led[place] (1.000-1.030) Urine Protein (Negative) Urine Glucose (UA) (Negative) Urine Ketones (Negative) Urine Blood (Negative) Urine Nitrite (Negative) Urine Bilirubin (Negative) Urine Urobilinogen (Negative) Ur Leukocyte Esterase (Negative) COVID-19 Eval Order SARS-CoV-2 (PCR) (Negative) Influenza Type A (PCR) (Neg) Influenza Type B (PCR) (Neg) RSV (RT-PCR) (Neg) 03/02/21 03/02/21 03/02/21 Range/Units 17:10 17:10 18:15 WBC (4.8-10.8) K/uL RBC (4.7-6.1) M/uL Hgb (14.0-18.0) g/dL Hct (42-52) % MCV (80-100) fL MCH (25-34) pg MCHC (32-36) g/dL RDW Std Deviation (36.4-46.3) fL RDW Coeff of Drew (11.5-14.5) % Plt Count (130-400) K/uL MPV (7.4-10.4) fL Immature Gran % (Auto) % Neut % (Auto) % Lymph % (Auto) % [place] % (Auto) % Eos % (Auto) % Baso % (Auto) % Neut # (Auto) (1.4-6.5) K/uL Lymph # (Auto) (1.2-3.4) K/uL [place] # (Auto) (0.11-0.59) K/uL Eos # (Auto) (0-0.5) K/uL Baso # (Auto) (0-0.2) K/uL Immature Gran # (Auto) (0.00-0.02) K/uL PT 10.7 (9.0-12.0) Seconds INR 1.1 (0.9-1.1) APTT 26.1 (21.0-31.0) Seconds PTT Ratio 1.0 Sodium 139 (136-145) mmol/L Potassium 4.6 (3.5-5.1) mmol/L Chloride 105 (98-107) mmol/L Carbon Dioxide 29 (21-32) mmol/L Anion Gap 4.0 (3-11) BUN 32 H (7-18) mg/dl Creatinine 1.17 (0.6-1.4) mg/dl Est Cr Clr Drug Dosing 57.7 ml/min Est GFR ( Amer) 74.9 Est GFR (Non-Af Amer) 64.6 BUN/Creatinine Ratio 27.0 H (10-20) Glucose 303 H* (70-99) mg/dl POC Glucose 297 H (70-99) mg/dl Lactate (0.4-2.0) mmol/L Calcium 9.8 (8.5-10.1) mg/dl Magnesium 1.6 L (1.8-2.4) mg/dl Total Bilirubin 0.4 (0.2-1) mg/dl AST 14 L (15-37) U/L ALT 17 (12-78) U/L Alkaline Phosphatase 70 (45-117) U/L Troponin I 0.061 H* (0-0.045) ng/ml Total Protein 6.1 L (6.4-8.2) gm/dl Albumin 3.0 L (3.4-5.0) gm/dl Globulin 3.1 (2.5-4.0) gm/dl Albumin/Globulin Ratio 1.0 (0.9-2) Beta-Hydroxybutyric Acd TNP TSH 1.730 (0.300-4.500) uIu/ml Urine Color Urine Appearance (Clear) Urine pH (4.5-7.5) Ur Specific Ledbetter (1.000-1.030) Urine Protein (Negative) Urine Glucose (UA) (Negative) Urine Ketones (Negative) Urine Blood (Negative) Urine Nitrite (Negative) Urine Bilirubin (Negative) Urine Urobilinogen (Negative) Ur Leukocyte Esterase (Negative) COVID-19 Eval Order SARS-CoV-2 (PCR) (Negative) Influenza Type A (PCR) (Neg) Influenza Type B (PCR) (Neg) RSV (RT-PCR) (Neg) 03/02/21 03/02/21 03/02/21 Range/Units 18:29 18:29 18:51 WBC (4.8-10.8) K/uL RBC (4.7-6.1) M/uL Hgb (14.0-18.0) g/dL Hct (42-52) % MCV (80-100) fL MCH (25-34) pg MCHC (32-36) g/dL RDW Std Deviation (36.4-46.3) fL RDW Coeff of Drew (11.5-14.5) % Plt Count (130-400) K/uL MPV (7.4-10.4) fL Immature Gran % (Auto) % Neut % (Auto) % Lymph % (Auto) % [place] % (Auto) % Eos % (Auto) % Baso % (Auto) % Neut # (Auto) (1.4-6.5) K/uL Lymph # (Auto) (1.2-3.4) K/uL [place] # (Auto) (0.11-0.59) K/uL Eos # (Auto) (0-0.5) K/uL Baso # (Auto) (0-0.2) K/uL Immature Gran # (Auto) (0.00-0.02) K/uL PT (9.0-12.0) Seconds INR (0.9-1.1) APTT (21.0-31.0) Seconds PTT Ratio Sodium (136-145) mmol/L Potassium (3.5-5.1) mmol/L Chloride (98-107) mmol/L Carbon Dioxide (21-32) mmol/L Anion Gap (3-11) BUN (7-18) mg/dl Creatinine (0.6-1.4) mg/dl Est Cr Clr Drug Dosing ml/min Est GFR ( Amer) Est GFR (Non-Af Amer) BUN/Creatinine Ratio (10-20) Glucose (70-99) mg/dl POC Glucose (70-99) mg/dl Lactate 1.9 (0.4-2.0) mmol/L Calcium (8.5-10.1) mg/dl Magnesium (1.8-2.4) mg/dl Total Bilirubin (0.2-1) mg/dl AST (15-37) U/L ALT (12-78) U/L Alkaline Phosphatase (45-117) U/L Troponin I (0-0.045) ng/ml Total Protein (6.4-8.2) gm/dl Albumin (3.4-5.0) gm/dl Globulin (2.5-4.0) gm/dl Albumin/Globulin Ratio (0.9-2) Beta-Hydroxybutyric Acd TSH (0.300-4.500) uIu/ml Urine Color Urine Appearance (Clear) Urine pH (4.5-7.5) Ur Specific [place] (1.000-1.030) Urine Protein (Negative) Urine Glucose (UA) (Negative) Urine Ketones (Negative) Urine Blood (Negative) Urine Nitrite (Negative) Urine Bilirubin (Negative) Urine Urobilinogen (Negative) Ur Leukocyte Esterase (Negative) COVID-19 Eval Order CovFluRsv at [facility] [place] SARS-CoV-2 (PCR) NEGATIVE (Negative) Influenza Type A (PCR) Negative (Neg) Influenza Type B (PCR) Negative (Neg) RSV (RT-PCR) Negative (Neg) 03/02/21 Range/Units 20:22 WBC (4.8-10.8) K/uL RBC (4.7-6.1) M/uL Hgb (14.0-18.0) g/dL Hct (42-52) % MCV (80-100) fL MCH (25-34) pg MCHC (32-36) g/dL RDW Std Deviation (36.4-46.3) fL RDW Coeff of Drew (11.5-14.5) % Plt Count (130-400) K/uL MPV (7.4-10.4) fL Immature Gran % (Auto) % Neut % (Auto) % Lymph % (Auto) % [place] % (Auto) % Eos % (Auto) % Baso % (Auto) % Neut # (Auto) (1.4-6.5) K/uL Lymph # (Auto) (1.2-3.4) K/uL [place] # (Auto) (0.11-0.59) K/uL Eos # (Auto) (0-0.5) K/uL Baso # (Auto) (0-0.2) K/uL Immature Gran # (Auto) (0.00-0.02) K/uL PT (9.0-12.0) Seconds INR (0.9-1.1) APTT (21.0-31.0) Seconds PTT Ratio Sodium (136-145) mmol/L Potassium (3.5-5.1) mmol/L Chloride (98-107) mmol/L Carbon Dioxide (21-32) mmol/L Anion Gap (3-11) BUN (7-18) mg/dl Creatinine (0.6-1.4) mg/dl Est Cr Clr Drug Dosing ml/min Est GFR ( Amer) Est GFR (Non-Af Amer) BUN/Creatinine Ratio (10-20) Glucose (70-99) mg/dl POC Glucose (70-99) mg/dl Lactate (0.4-2.0) mmol/L Calcium (8.5-10.1) mg/dl Magnesium (1.8-2.4) mg/dl Total Bilirubin (0.2-1) mg/dl AST (15-37) U/L ALT (12-78) U/L Alkaline Phosphatase (45-117) U/L Troponin I (0-0.045) ng/ml Total Protein (6.4-8.2) gm/dl Albumin (3.4-5.0) gm/dl Globulin (2.5-4.0) gm/dl Albumin/Globulin Ratio (0.9-2) Beta-Hydroxybutyric Acd TSH (0.300-4.500) uIu/ml Urine Color Yellow Urine Appearance Clear (Clear) Urine pH 5.5 (4.5-7.5) Ur Specific [place] 1.045 H (1.000-1.030) Urine Protein Negative (Negative) Urine Glucose (UA) Negative (Negative) Urine Ketones Negative (Negative) Urine Blood Negative (Negative) Urine Nitrite Negative (Negative) Urine Bilirubin Negative (Negative) Urine Urobilinogen Negative (Negative) Ur Leukocyte Esterase Negative (Negative) COVID-19 Eval Order SARS-CoV-2 (PCR) (Negative) Influenza Type A (PCR) (Neg) Influenza Type B (PCR) (Neg) RSV (RT-PCR) (Neg) Administered Medications Sodium Chloride (Nss 1000ml) 1,000 mls @ 100 mls/hr IV .Q10H STA Stop: 03/03/21 07:04 Last Admin: 03/02/21 21:35 Dose: 100 mls/hr Documented by: [id number] Discontinued Medications Sodium Chloride (Nss) 500 mls @ 999 mls/hr IV .Q31M SEN Stop: 03/02/21 17:45 Last Infusion: 03/02/21 19:38 Dose: 0 mls/hr Documented by: [id number] Admin: 03/02/21 18:17 Dose: 999 mls/hr Documented by: [id number] Magnesium Sulfate/Dextrose (Magnesium Sulfate / D5w) 1 gm in 100 mls @ 100 mls/hr IV NOW STA Stop: 03/02/21 18:53 Last Infusion: 03/02/21 19:47 Dose: 0 mls/hr Documented by: [id number] Admin: 03/02/21 18:49 Dose: 100 mls/hr Documented by: [id number] Levofloxacin/Dextrose (Levaquin/D5w) 750 mg in 150 mls @ 100 mls/hr IV NOW STA Stop: 03/02/21 19:35 Last Infusion: 03/02/21 21:23 Dose: 0 mls/hr Documented by: [id number] Admin: 03/02/21 19:49 Dose: 100 mls/hr Documented by: [id number] Sodium Chloride (Nss 1000ml) 500 mls @ 999 mls/hr IV .Q31M ONE Stop: 03/02/21 19:45 Last Infusion: 03/02/21 20:28 Dose: 0 mls/hr Documented by: [id number] Admin: 03/02/21 19:33 Dose: 999 mls/hr Documented by: [id number] Piperacillin Sod/Tazobactam Sod (Zosyn) 4.5 gm in 120 mls @ 240 mls/hr IV NOW STA Stop: 03/02/21 21:33 Last Admin: 03/02/21 21:35 Dose: 240 mls/hr Documented by: [id number] Insulin Glargine (Insulin Glargine Solostar 100 Units/Ml 3 Ml Pen) 10 units SC NOW STA Stop: 03/02/21 20:41 Last Admin: 03/02/21 21:36 Dose: 10 units Documented by: [id number] Cosigned by: [id number] Insulin Human Regular (Novolin-R Insulin Per Unit Charge) 8 units IV NOW STA Stop: 03/02/21 17:17 Last Admin: 03/02/21 18:42 Dose: Not Given Documented by: [id number] Insulin Human Regular (Novolin-R Insulin Per Unit Charge) 6 units IV NOW STA Stop: 03/02/21 18:29 Last Admin: 03/02/21 18:46 Dose: 6 units Documented by: [id number] Cosigned by: [id number] Ioversol (Optiray 300 100ml) 87 ml IV ONCE ONE Stop: 03/02/21 19:14 Last Admin: 03/02/21 19:14 Dose: 87 ml Documented by: [id number] Ondansetron HCl (Ondansetron Inj 2 Mg/Ml 2 Ml Vial) 4 mg IV NOW STA Stop: 03/02/21 17:14 Last Admin: 03/02/21 18:17 Dose: 4 mg Documented by: [id number] Imaging Data Radiologist's Impression: Abdomen/Pelvis CT 03/02/21 17:13 CT SCAN OF THE ABDOMEN AND PELVIS WITH IV CONTRAST CLINICAL HISTORY: Generalized abdominal pain. Nausea. COMPARISON STUDY: Abdominal CT dated 04/03/2020. TECHNIQUE: Following the IV administration of 87 cc of Optiray 300, CT scan of the abdomen and pelvis is performed from the lung bases to the proximal femora. Images are reviewed in the axial, sagittal, and coronal planes. IV contrast was administered without complication. A dose lowering technique was utilized adhering to the principles of ALARA. The Examination is compromised by motion artifact, as well as by streak artifact from the arms which could not be elevated above the abdomen. CT DOSE: 569.99 mGy.cm FINDINGS: Lung bases: The heart is mildly enlarged and without pericardial effusion. There are coronary artery calcifications. Airspace consolidation is seen at the left lung base, with trace left pleural effusion. Minimal opacities are also seen at the right lung base. Liver: The contrast-enhanced liver is enlarged, measuring 22.5 cm in length. The liver is otherwise normal in contour and attenuation. There is no intrahepatic biliary ductal dilatation. The hepatic veins and portal veins are patent. Gallbladder: Surgically absent noting clips in the gallbladder fossa. Spleen: Normal in size and attenuation. Pancreas: Unremarkable. Adrenal glands: Unremarkable. Kidneys: The contrast enhanced kidneys demonstrate cortical atrophy and are without hydronephrosis. The kidneys enhance symmetrically. Abdominal vasculature: The abdominal aorta is normal in course and caliber noting mild to moderate atherosclerotic calcification. A suprarenal IVC filter is in place. Bowel: There is no bowel obstruction. Moderate fecal retention is seen throughout the colon. The appendix is well-visualized and normal. Peritoneum: No intraperitoneal free air is identified. There is trace perihepatic and pelvic ascites. Lymphadenopathy: None. Pelvic viscera: The prostate gland is diminutive and heterogeneous. There is median lobe hypertrophy. The bladder wall appears thickened and trabeculated indicating chronic outlet obstruction. Skeletal structures: The skeletal structures are osteopenic. Mild lumbosacral spondylosis is noted. No lytic or blastic lesions are seen. There are chronic compression for his of T11, T12, and L1. There are healed bilateral pubic ring fractures. Chronic posterior matter deformity is also noted in the sacrum. There are numerous healed bilateral rib fractures. IMPRESSION: 1. Significantly streak and motion compromised examination. 2. Patchy airspace consolidation is seen throughout the left lower lobe with trace left pleural effusion. Minimal opacities are also seen at the right lung base. The appearance is typical for pneumonia/aspiration pneumonitis. Radiographic follow-up to resolution is recommended. 3. There is trace abdominopelvic ascites. 4. Hepatomegaly. 5. Mild/moderate constipation. 6. Additional findings as above. ACT 112: Negative or not required by law. Electronically signed by: Beka Irby M.D. 03/02/2021 7:55 PM Chest X-Ray 03/02/21 17:13 SINGLE VIEW CHEST CLINICAL HISTORY: Generalized weakness. FINDINGS: An AP, portable, upright chest radiograph is compared to study dated 04/03/2020 and correlated with chest CT dated 09/08/2016. The examination is degraded by portable technique and patient rotation. The heart is enlarged. The pulmonary vasculature is noncongested. There is mild elevation of the left hemidiaphragm. Airspace consolidation is seen in the left mid to lower lung. No large pleural effusion or pneumothorax is seen. The skeletal structures are osteopenic. There are numerous healed right-sided rib fractures. Degenerative change and scoliosis are noted in the thoracic spine. An IVC filter is noted in the upper abdomen. IMPRESSION: 1. Cardiomegaly without radiographic evidence of congestive failure. 2. Airspace consolidation is seen in the left mid to lower lung. Correlate clinically for evidence of pneumonia/aspiration pneumonitis. Radiographic follow-up to resolution is recommended. ACT 112: Negative or not required by law. Electronically signed by: Beka Irby M.D. 03/02/2021 6:00 PM Discharge Plan Visit Data Chief Complaint: Hyperglycemia Stated Complaint: HYPERGLYCEMIA, ILLNESS ED Provider: Beka Sears Discharge Problem: Hypotension, Pneumonia, Elevated troponin, Diffuse abdominal pain Patient Disposition: Admitted As Inpatient Condition: Fair Forms Stand Alone Forms: [facility] Prescriptions Prescriptions: No Action clonazepam 0.5 mg tablet 0.25 mg PO BID RF: 0 trazodone 50 mg Tablet 50 mg PO HS RF: 0 loperamide [Imodium A-D] 2 mg Tablet 2 mg PO UD PRN (Reason: Diarrhea) RF: 0 simvastatin [Zocor] 40 mg Tablet 40 mg PO HS RF: 0 acetaminophen 650 mg Tablet Extended Release 650 mg PO BID RF: 0 acetaminophen 650 mg Tablet Extended Release 650 mg PO Q4H MDD 3 GRAM/24 HOURS PRN (Reason: Pain) RF: 0 metoclopramide HCl [Reglan] 5 mg Tablet 5 mg PO ACHS RF: 0 glimepiride [Amaryl] 4 mg Tablet 4 mg PO BIDM RF: 0 calcium carbonate [Tums] 200 mg calcium (500 mg) Tablet,Chewable 1 tab PO BID RF: 0 zafirlukast [Accolate] 20 mg Tablet 20 mg PO BID RF: 0 albuterol sulfate [ProAir HFA] 90 mcg/actuation Hfa Aerosol Inhaler 2 puff INHALATION Q4H PRN (Reason: Shortness Of Breath) RF: 0 cholecalciferol (vitamin D3) [Vitamin D3] 1,000 unit Capsule 1,000 unit PO QAM RF: 0 escitalopram oxalate [Lexapro] 5 mg Tablet 5 mg PO QAM RF: 0 Januvia 100 mg tablet 100 mg PO QAM RF: 0 omeprazole 20 mg Tablet,Delayed Release (Dr/Ec) 20 mg PO QAM RF: 0 Prolia 60 mg/mL Syringe 60 mg SUBCUT DIRECTED RF: 0 guaifenesin [Mucinex] 600 mg Tablet Extended Release 12hr 600 mg PO Q12H RF: 0 magnesium oxide 400 mg magnesium Tablet 400 mg PO BID RF: 0 metformin 500 mg Tablet Extended Release 24 Hr 1,000 mg PO QAM RF: 0 risperidone 0.25 mg tablet 0.25 mg PO QPM RF: 0 pentoxifylline 400 mg tablet extended release 400 mg PO TID RF: 0 alum-mag hydroxide-simeth [Maalox Advanced] 200-200-20 mg/5 mL Suspension 30 ml PO QPM RF: 0 loratadine [Claritin] 10 mg Tablet 10 mg PO DAILY RF: 0 haloperidol 0.5 mg tablet 0.5 mg PO BID PRN (Reason: ANXIETY/AGGITATION) RF: 0 Incruse Ellipta 62.5 mcg/actuation blister with device 1 inh INHALATION DAILY RF: 0 Referrals Referrals: Andrew Montague MD [Primary Care Provider] - Discharge Problem: Hypotension Qualifiers: Hypotension type: unspecified hypotension type Qualified Code(s): I95.9 - Hypotension, unspecified Pneumonia Qualifiers: Pneumonia type: due to unspecified organism Laterality: left Lung location: lower lobe of lung Qualified Code(s): J18.9 - Pneumonia, unspecified organism
[2021-03-02 17:24] LABS: Basophils # (auto) 0.01 K/uL (0-0.2); Basophils % (auto) 0.1 %; Eosinophils # (auto) 0.01 K/uL (0-0.5); Eosinophils % (auto) 0.1 %; Hematocrit (blood only) 34.5 % (42-52); Hemoglobin 10.8 g/dL (14.0-18.0); Immature Granulocytes # (auto) 0.01 K/uL (0.00-0.02); Immature Granulocytes % (auto) 0.1 %; Lymphocytes # (auto) 0.72 K/uL (1.2-3.4); Lymphocytes % (auto) 6.7 %; Mean Corpuscular Hgb Conc 31.3 g/dL (32-36); Mean Corpuscular Volume 102.4 fL (80-100); Mean Platelet Volume 11.1 fL (7.4-10.4); Monocytes # (auto) 0.71 K/uL (0.11-0.59); Monocytes % (auto) 6.6 %; Neutrophils # (auto) 9.26 K/uL (1.4-6.5); Neutrophils % (auto) 86.4 %; Platelet Count 129 K/uL (130-400); RDW Coefficient of Variation 14.2 % (11.5-14.5); RDW Standard Deviation 53.4 fL (36.4-46.3); Red Blood Count 3.37 M/uL (4.7-6.1); White Blood Count 10.72 K/uL (4.8-10.8)
[2021-03-02 17:49] LABS: Alanine Aminotransferase 17 U/L (12-78); Alkaline Phosphatase 70 U/L (45-117); Aspartate Aminotransferase 14 U/L (15-37); Bilirubin,Total 0.4 mg/dl (0.2-1); Blood Urea Nitrogen 32 mg/dl (7-18); Calcium 9.8 mg/dl (8.5-10.1); Carbon Dioxide 29 mmol/L (21-32); Chloride 105 mmol/L (98-107); Creatinine Clr Calc Pharmacy 57.7 ml/min; Est GFR (African American) 74.9; Est GFR (Non-African American) 64.6; Globulin 3.1 gm/dl (2.5-4.0); Glucose 303 mg/dl (70-99); Magnesium 1.6 mg/dl (1.8-2.4); Potassium 4.6 mmol/L (3.5-5.1); Sodium 139 mmol/L (136-145); Total Protein 6.1 gm/dl (6.4-8.2)
[2021-03-02] MEDS ORDERED: MAGNESIUM SULFATE / D5W 1 GM/100 ML BAG IV STA ×2 (17:54→22:17)
--- NOTE | 2021-03-02 18:01 | XRay Report ---
SINGLE VIEW CHEST CLINICAL HISTORY: Generalized weakness. FINDINGS: An AP, portable, upright chest radiograph is compared to study dated 04/03/2020 and correlate d with chest CT dated 09/08/2016. The examination is degraded by portable technique and patient rotat ion. The heart is enlarged. The pulmonary vasculature is noncongested. There is mild elevation of t he left hemidiaphragm. Airspace consolidation is seen in the left mid to lower lung. No large pleural effusion or pneumothorax is seen. The skeletal structures are osteopenic. There are numerous healed right-sided rib fractures. Degenerative change and scoliosis are noted in the thoracic spine. An IVC filter is noted in the upper abdomen. IMPRESSION: 1. Cardiomegaly without radiographic evidence of congestive failure. 2. Airspace consolidation is seen in the left mid to lower lung. Correlate clinically for evidence of pneumonia/aspiration pneumonitis. Radiographic follow-up to resolution is recommended. ACT 112: Negative or not required by law. Electronically signed by: Beka Irby M.D. 03/02/2021 6:00 PM
[2021-03-02] MEDS ORDERED: levoFLOXacin/D5W 750 MG/150 ML BAG IV STA (18:06)
[2021-03-02 18:38] LABS: Troponin I 0.061 ng/ml (0-0.045)
[2021-03-02] MEDS ORDERED: OPTIRAY 300 100mL IV ONE (19:13)
[2021-03-02] MEDS ORDERED: SODIUM CHLORIDE 0.9% 1000ML 500 ML IV ONE (19:15)
--- NOTE | 2021-03-02 19:57 | CT Scan Report ---
CT SCAN OF THE ABDOMEN AND PELVIS WITH IV CONTRAST CLINICAL HISTORY: Generalized abdominal pain. Nausea. COMPARISON STUDY: Abdominal CT dated 04/03/2020. TECHNIQUE: Following the IV administration of 87 cc of Optiray 300, CT scan of the abdomen and pelvi s is performed from the lung bases to the proximal femora. Images are reviewed in the axial, sagittal , and coronal planes. IV contrast was administered without complication. A dose lowering technique wa s utilized adhering to the principles of ALARA. The Examination is compromised by motion artifact, as well as by streak artifact from the arms which could not be elevated above the abdomen. CT DOSE: 569.99 mGy.cm FINDINGS: Lung bases: The heart is mildly enlarged and without pericardial effusion. There are coronary artery calcifications. Airspace consolidation is seen at the left lung base, with trace left pleural effusio n. Minimal opacities are also seen at the right lung base. Liver: The contrast-enhanced liver is enlarged, measuring 22.5 cm in length. The liver is otherwise n ormal in contour and attenuation. There is no intrahepatic biliary ductal dilatation. The hepatic vei ns and portal veins are patent. Gallbladder: Surgically absent noting clips in the gallbladder fossa. Spleen: Normal in size and attenuation. Pancreas: Unremarkable. Adrenal glands: Unremarkable. Kidneys: The contrast enhanced kidneys demonstrate cortical atrophy and are without hydronephrosis. T he kidneys enhance symmetrically. Abdominal vasculature: The abdominal aorta is normal in course and caliber noting mild to moderate at herosclerotic calcification. A suprarenal IVC filter is in place. Bowel: There is no bowel obstruction. Moderate fecal retention is seen throughout the colon. The appe ndix is well-visualized and normal. Peritoneum: No intraperitoneal free air is identified. There is trace perihepatic and pelvic ascites. Lymphadenopathy: None. Pelvic viscera: The prostate gland is diminutive and heterogeneous. There is median lobe hypertrophy. The bladder wall appears thickened and trabeculated indicating chronic outlet obstruction. Skeletal structures: The skeletal structures are osteopenic. Mild lumbosacral spondylosis is noted. N o lytic or blastic lesions are seen. There are chronic compression for his of T11, T12, and L1. There are healed bilateral pubic ring fractures. Chronic posterior matter deformity is also noted in the s acrum. There are numerous healed bilateral rib fractures. IMPRESSION: 1. Significantly streak and motion compromised examination. 2. Patchy airspace consolidation is seen throughout the left lower lobe with trace left pleural effus ion. Minimal opacities are also seen at the right lung base. The appearance is typical for pneumonia/ aspiration pneumonitis. Radiographic follow-up to resolution is recommended. 3. There is trace abdominopelvic ascites. 4. Hepatomegaly. 5. Mild/moderate constipation. 6. Additional findings as above. ACT 112: Negative or not required by law. Electronically signed by: Beka Irby M.D. 03/02/2021 7:55 PM
[2021-03-02 20:05] LABS: Influenza A virus by PCR Negative (Neg); Influenza B virus by PCR Negative (Neg); RSV by PCR Negative (Neg); SARS CoV2 RNA(COVID-19) InHosp NEGATIVE (Negative)
[2021-03-02] MEDS ORDERED: PIPERACILL/TAZOBAC CONSULT ACTIVE PRN (20:31)
[2021-03-02 20:32] LABS: Appearance Urine Clear (Clear); Bilirubin Urine Negative (Negative); Blood Urine Negative (Negative); Color Urine Yellow; Glucose Urine UA Negative (Negative); Ketones Urine Negative (Negative); Leukocyte Esterase Urine Negative (Negative); Nitrite Urine Negative (Negative); Protein Urine Negative (Negative); Specific Gravity Urine 1.045 (1.000-1.030); Urobilinogen Urine Negative (Negative); pH Urine 5.5 (4.5-7.5)
[2021-03-02] MEDS ORDERED: INSULIN GLARGINE SOLOSTAR 100 UNITS/ML 3 ML PEN SC STA (20:40)
[2021-03-02] MEDS ORDERED: PIPERACILLIN/TAZOBACTAM 4.5 GM/120 ML BAG IV STA (21:04)
[2021-03-02] MEDS ORDERED: SODIUM CHLORIDE 0.9% 1000ML 1,000 ML IV STA (21:05)
[2021-03-02 21:36] LABS: INR 1.1 (0.9-1.1); Partial Thromboplastin Time 26.1 Seconds (21.0-31.0); Prothrombin Time 10.7 Seconds (9.0-12.0)
--- NOTE | 2021-03-02 21:37 | History & Physical Report ---
Date of Service March 02, 2021 Assessment & Plan (1) Pneumonia: (2) Hyperglycemia: (3) Elevated troponin: (4) Diabetes mellitus, type II: (5) COPD (chronic obstructive pulmonary disease): (6) GERD (gastroesophageal reflux disease): (7) TRINIDAD (obstructive sleep apnea): Pt is 65 y/o M with PMH intellectual disability, DM II, COPD, GERD, PVD, TRINIDAD presented to ER for hyperglycemia, dry cough, feeling ill, abdominal pain today. HPI, medical history, PE completed by Ting Lara PA-C. Assessment and Plan per Dr Cohen. See addendum History of Present Illness Chief Complaint: Elevated BSGs Primary Care Provider: Andrew Montague MD Pt is 65 y/o M with PMH intellectual disability, DM II, COPD, GERD, PVD, TRINIDAD presented to ER for hyperglycemia. Patient resides at [facility]. History assisted by caregiver. Reports that today patient was complaining of not feeling well complaining of neck pain and abdominal pain. Patient points to mid abdomen. She states they noticed dry cough today and noted patient's BSG is to be elevated so brought patient to the ER for evaluation. States patient with history of choking in past. Is unaware of any recent choking. Patient does require small bite sized food as she states he does not chew his food well. Caregiver feels pt appeared to be slightly short of breath today. Patient rec ently had pneumonia vaccine. He had to doses a COVID-19 vaccine second dose was in December 17. Denies any known COVID-19 exposures. Last BM 2 days ago. Denies any noted fever or chills, vomiting. Patient denies headache, dizziness, or pain in chest, dysuria, sore throat. Denies recent falls, syncope, diarrhea, extremity edema. Caregiver states pt makes medical decisions and no POA or living will on file. Allergies Allergy/AdvReac Type Severity Reaction Status Date / Time lactose Allergy Intermediate GI SYMPTOMS Verified 03/02/21 17:17 aspirin Allergy Unknown UNKNOWN Verified 03/02/21 17:17 REACTION cephalexin Allergy Unknown UNKNOWN Verified 03/02/21 17:17 REACTION Cephalosporins Allergy Unknown UNKNOWN Verified 03/02/21 17:17 REACTION Corticosteroids Allergy Unknown UNKNOWN Verified 03/02/21 17:17 (Glucocorticoids) REACTION methylprednisolone Allergy Unknown UNKNOWN Verified 03/02/21 17:17 REACTION shellfish derived Allergy Unknown UNKNOWN Verified 03/02/21 17:17 REACTION Home Medications Medication Instructions Recorded Confirmed Type acetaminophen 650 mg PO BID 12/23/18 03/02/21 History acetaminophen 650 mg PO Q4H PRN MDD 3 GRAM/24 12/23/18 03/02/21 History HOURS albuterol sulfate [ProAir HFA] 2 puff INHALATION Q4H PRN 12/23/18 03/02/21 History calcium carbonate [Tums] 1 tab PO BID 12/23/18 03/02/21 History cholecalciferol (vitamin D3) 1,000 unit PO QAM 12/23/18 03/02/21 History [Vitamin D3] clonazepam 0.25 mg PO BID 12/23/18 03/02/21 History denosumab [Prolia] 60 mg SUBCUT DIRECTED 12/23/18 03/02/21 History escitalopram oxalate [Lexapro] 5 mg PO QAM 12/23/18 03/02/21 History glimepiride [Amaryl] 4 mg PO BIDM 12/23/18 03/02/21 History guaifenesin [Mucinex] 600 mg PO Q12H 12/23/18 03/02/21 History loperamide [Imodium A-D] 2 mg PO UD PRN 12/23/18 03/02/21 History magnesium oxide 400 mg PO BID 12/23/18 03/02/21 History metformin 1,000 mg PO QAM 12/23/18 03/02/21 History metoclopramide HCl [Reglan] 5 mg PO ACHS 12/23/18 03/02/21 History omeprazole 20 mg PO QAM 12/23/18 03/02/21 History simvastatin [Zocor] 40 mg PO HS 12/23/18 03/02/21 History sitagliptin [Januvia] 100 mg PO QAM 12/23/18 03/02/21 History trazodone 50 mg PO HS 12/23/18 03/02/21 History zafirlukast [Accolate] 20 mg PO BID 12/23/18 03/02/21 History alum-mag hydroxide-simeth [Maalox 30 ml PO QPM 04/03/20 03/02/21 History Advanced] loratadine [Claritin] 10 mg PO DAILY 04/03/20 03/02/21 History pentoxifylline 400 mg PO TID 04/03/20 03/02/21 History risperidone 0.25 mg PO QPM 04/03/20 03/02/21 History haloperidol 0.5 mg PO BID PRN 03/02/21 03/02/21 History umeclidinium [Incruse Ellipta] 1 inh INHALATION DAILY 03/02/21 03/02/21 History Past Med/Surg History Medical History COPD (chronic obstructive pulmonary disease) Diabetes mellitus, type II GERD (gastroesophageal reflux disease) Intellectual disability TRINIDAD (obstructive sleep apnea) PNA (pneumonia) Presence of IVC filter PVD (peripheral vascular disease) Surgical History History of cholecystectomy Family History (Updated 03/02/21 @ 21:34 by Ting Lara PA-C) Father Coronary heart disease Social History Smoking Status: Former smoker Smoking End Date: 15 years ago; Second Hand Exposure: No; Do You Dip or Chew Tobacco: No; Tobacco Cessation Education Requested by Patient: No Hx Alcohol Use: Yes Alcohol type: beer Hx Substance Use: No Preferred Language: Upper Sorbian Communication Ability: Impaired Carcass Splitter Required: No Beliefs That Will Affect Care: None Current Living Situation: Boarding [place] Current Living Situation Comment: Lives in shelter Other Information That Helps Us Care for You: No Feels Safe at Home: Yes Safety Concerns: Feels Safe At This Time Assistive Devices: None Review of Systems Review of Systems: All systems reviewed & are unremarkable except as noted in HPI & below Physical Exam Physical Exam: General: no distress, WDWN Head: normocephalic, atraumatic Eyes: conjunctiva non-injected, anicteric ENT: normal inspection external ears, nose, mucous membranes mildly dry Neck: supple, trachea midline Lungs: no respiratory distress, +rales bilateral bases, no wheezing noted CV: RRR, no murmur, no pretibial edema Abd: normal BS, soft, non-tender Ext: no cyanosis, no calf tenderness; BLE with venous stasis skin discoloration Neuro: alert, oriented to person, pt with intellectual disability - is at baseline mental status per caregiver, no focal deficits noted, cooperative Skin: warm, dry Results & Data Results & Data ([facility]) Vital Signs (Past 12 Hours) Vital Signs Temp Pulse Pulse Resp BP BP Pulse Ox 03/02/21 20:48 20 86/51 L 97 03/02/21 19:46 71 20 99/57 L 99 03/02/21 19:05 77 20 81/53 L 95 03/02/21 18:31 68 20 97 03/02/21 18:30 69 21 91/49 L 97 03/02/21 18:01 75 23 96 03/02/21 18:00 77 23 98/54 L 96 03/02/21 17:50 75 26 H 97 03/02/21 17:40 75 24 97 03/02/21 17:31 78 24 96 03/02/21 17:30 80 18 92/51 L 97 03/02/21 17:20 79 26 H 98 03/02/21 17:10 77 22 96 03/02/21 17:01 78 25 H 95 03/02/21 17:00 78 22 90/63 L 95 03/02/21 16:58 79 25 H 95 03/02/21 16:40 75 24 90 03/02/21 16:36 37.3 C 77 25 H 101/54 L 95 Laboratory Results Short CBC 03/02/21 Range/Units 17:10 WBC 10.72 (4.8-10.8) K/uL Hgb 10.8 L (14.0-18.0) g/dL Hct 34.5 L (42-52) % Plt Count 129 L (130-400) K/uL BMP 03/02/21 17:10 Sodium 139 Potassium 4.6 Chloride 105 Carbon Dioxide 29 BUN 32 H Creatinine 1.17 Glucose 303 H* Calcium 9.8 Cardiac Enzymes 03/02/21 Range/Units 17:10 Troponin I 0.061 H* (0-0.045) ng/ml Liver Function 03/02/21 Range/Units 17:10 Total Bilirubin 0.4 (0.2-1) mg/dl AST 14 L (15-37) U/L ALT 17 (12-78) U/L Alkaline Phosphatase 70 (45-117) U/L Albumin 3.0 L (3.4-5.0) gm/dl Urine 03/02/21 Range/Units 20:22 Urine Color Yellow Urine Appearance Clear (Clear) Urine pH 5.5 (4.5-7.5) Ur Specific [place]il 1.045 H (1.000-1.030) Urine Protein Negative (Negative) Urine Glucose (UA) Negative (Negative) Diagnostic Findings Abdomen/Pelvis CT 03/02/21 17:13 CT SCAN OF THE ABDOMEN AND PELVIS WITH IV CONTRAST CLINICAL HISTORY: Generalized abdominal pain. Nausea. COMPARISON STUDY: Abdominal CT dated 04/03/2020. TECHNIQUE: Following the IV administration of 87 cc of Optiray 300, CT scan of the abdomen and pelvis is performed from the lung bases to the proximal femora. Images are reviewed in the axial, sagittal, and coronal planes. IV contrast was administered without complication. A dose lowering technique was utilized adhering to the principles of ALARA. The Examination is compromised by motion artifact, as well as by streak artifact from the arms which could not be elevated above the abdomen. CT DOSE: 569.99 mGy.cm FINDINGS: Lung bases: The heart is mildly enlarged and without pericardial effusion. There are coronary artery calcifications. Airspace consolidation is seen at the left lung base, with trace left pleural effusion. Minimal opacities are also seen at the right lung base. Liver: The contrast-enhanced liver is enlarged, measuring 22.5 cm in length. The liver is otherwise normal in contour and attenuation. There is no intrahepatic biliary ductal dilatation. The hepatic veins and portal veins are patent. Gallbladder: Surgically absent noting clips in the gallbladder fossa. Spleen: Normal in size and attenuation. Pancreas: Unremarkable. Adrenal glands: Unremarkable. Kidneys: The contrast enhanced kidneys demonstrate cortical atrophy and are without hydronephrosis. The kidneys enhance symmetrically. Abdominal vasculature: The abdominal aorta is normal in course and caliber noting mild to moderate atherosclerotic calcification. A suprarenal IVC filter is in place. Bowel: There is no bowel obstruction. Moderate fecal retention is seen throughout the colon. The appendix is well-visualized and normal. Peritoneum: No intraperitoneal free air is identified. There is trace perihepatic and pelvic ascites. Lymphadenopathy: None. Pelvic viscera: The prostate gland is diminutive and heterogeneous. There is median lobe hypertrophy. The bladder wall appears thickened and trabeculated indicating chronic outlet obstruction. Skeletal structures: The skeletal structures are osteopenic. Mild lumbosacral spondylosis is noted. No lytic or blastic lesions are seen. There are chronic compression for his of T11, T12, and L1. There are healed bilateral pubic ring fractures. Chronic posterior matter deformity is also noted in the sacrum. There are numerous healed bilateral rib fractures. IMPRESSION: 1. Significantly streak and motion compromised examination. 2. Patchy airspace consolidation is seen throughout the left lower lobe with trace left pleural effusion. Minimal opacities are also seen at the right lung base. The appearance is typical for pneumonia/aspiration pneumonitis. Radiographic follow-up to resolution is recommended. 3. There is trace abdominopelvic ascites. 4. Hepatomegaly. 5. Mild/moderate constipation. 6. Additional findings as above. ACT 112: Negative or not required by law. Electronically signed by: Beka Irby M.D. 03/02/2021 7:55 PM Chest X-Ray 03/02/21 17:13 SINGLE VIEW CHEST CLINICAL HISTORY: Generalized weakness. FINDINGS: An AP, portable, upright chest radiograph is compared to study dated 04/03/2020 and correlated with chest CT dated 09/08/2016. The examination is degraded by portable technique and patient rotation. The heart is enlarged. The pulmonary vasculature is noncongested. There is mild elevation of the left hemidiaphragm. Airspace consolidation is seen in the left mid to lower lung. No large pleural effusion or pneumothorax is seen. The skeletal structures are osteopenic. There are numerous healed right-sided rib fractures. Degenerative change and scoliosis are noted in the thoracic spine. An IVC filter is noted in the upper abdomen. IMPRESSION: 1. Cardiomegaly without radiographic evidence of congestive failure. 2. Airspace consolidation is seen in the left mid to lower lung. Correlate clinically for evidence of pneumonia/aspiration pneumonitis. Radiographic follow-up to resolution is recommended. ACT 112: Negative or not required by law. Electronically signed by: Beka Irby M.D. 03/02/2021 6:00 PM Supervising Physician Co-Signing Physician Notes IM ATTENDING : Patient seen and examined. History obtained from patient, caregiver, and records. Limited history from patient secondary to intellectual impairment. Preceding documentation by Ms. Ting Lara PA-C reviewed. FINAL ASSESSMENT AND PLAN as follows : HCAP, possible aspiration No overt sepsis for now. Hyperglycemia secondary to illness DM2 on oral medications, well-controlled as of recent hemoglobin A1c of 6.02 November 2020 Hypotension secondary to hypovolemia secondary to poor p.o. intake secondary to illness troponin elevation secondary to illness Abdominal pain secondary to constipation PVD as per records Chronic anemia, hemoglobin better than baseline of 10 likely secondary to hemoconcentration Chronic thrombocytopenia Intellectual impairment PCU given low blood pressure and troponin elevation Zosyn for HCAP Swallow eval, aspiration precautions IVF Follow troponin, TTE if with progression Bowel regimen Basal insulin, ISS BG goal 1 10-1 40, carb count coverage, update hemoglobin A1c DVT prophylaxis. SCDs Re: Chronic thrombocytopenia Full code Attempted to contact patient's brother/POA (Mr. Piter Kendall, contact #[phone]) to address CODE STATUS and give update on plan of care. No answer. Will request AM provider to reattempt contact in a.m. Text document was generated using Dragon Ports voice recognition software. It may contain grammatical or spelling errors. Kindly contact undersigned for clarification of any documentation item in question.
[2021-03-02] MEDS ORDERED: OLANZapine 10 MG/2.1 ML SDV IM PRN (23:20)
[2021-03-02] MEDS ORDERED: ACETAMINOPHEN 325 MG TAB PO PRN (23:20)
[2021-03-02] MEDS ORDERED: GLUCOSE 40% GEL 15 GM TUBE PO PRN (23:20)
[2021-03-02] MEDS ORDERED: CARBOHYDRATES FOR HYPOGLYCEMIA PO PRN (23:20)
[2021-03-02] MEDS ORDERED: PROMETHAZINE HCL 6.25 MG in SODIUM CHLORIDE 0.9% 50 ML IV PRN (23:20)
[2021-03-02] MEDS ORDERED: POLYETHYLENE (MIRALAX) 17 GM PACK PO PRN (23:20)
[2021-03-02] MEDS ORDERED: GLUCAGON FOR INJ 1 MG VIAL SQ PRN (23:20)
[2021-03-02] MEDS ORDERED: DEXTROSE 50% 50 ML SYRINGE IV PRN (23:20)
[2021-03-02] MEDS ORDERED: GLUCOSE 10 TABS/TUBE PO PRN (23:20)
[2021-03-02] MEDS ORDERED: POLYETHYLENE (MIRALAX) 17 GM PACK PO STA (23:57)
[2021-03-03] MEDS: DOCUSATE SODIUM/SENNA 50/8.6MG TAB PO SCH ×3 (00:32→21:04)
[2021-03-03] MEDS: INSULIN ASPART 100 UNITS/ML 3 ML PEN SC SCH ×5 (00:38→21:06)
[2021-03-03] MEDS ORDERED: MAGNESIUM SULFATE / D5W 1 GM/100 ML BAG IV SCH (00:45)
[2021-03-03] MEDS: PIPERACILLIN/TAZOBACTAM 3.375 GM in DEXTROSE 5% 100 ML IV SCH ×3 (02:03→17:17)
[2021-03-03 06:50] LABS: Estimated Average Glucose 131 mg/dl; Hemoglobin A1C 6.2 % (4.5-5.6)
[2021-03-03 07:27] LABS: Creatinine Clr Calc Pharmacy 86.9 ml/min; Est GFR (African American) 106.3; Est GFR (Non-African American) 91.7; Magnesium 2.2 mg/dl (1.8-2.4)
[2021-03-03] MEDS: ESCITALOPRAM OXALATE 10 MG TAB PO SCH (07:27)
[2021-03-03] MEDS: PANTOprazole 40 MG TAB PO SCH (07:29)
[2021-03-03] MEDS: MAGNESIUM OXIDE 400 MG TAB PO SCH ×2 (07:29→21:03)
[2021-03-03] MEDS: METOCLOPRAMIDE HCL 5 MG TABLET PO SCH ×4 (07:30→21:03)
[2021-03-03] MEDS: LORATADINE 10 MG TAB PO SCH (07:30)
[2021-03-03] MEDS: PENTOXIFYLLINE 400MG EXT REL TAB PO SCH ×3 (07:30→21:03)
[2021-03-03] MEDS: UMECLIDINIUM BROMIDE 62.5MCG/BLISTER 7 PUFFS/INHALER INH SCH (07:31)
[2021-03-03] MEDS: clonazePAM 0.25 MG TAB PO SCH ×4 (08:57→21:02)
--- NOTE | 2021-03-03 09:56 | Electrocardiogram Report ---
Test Reason : Blood Pressure : / mmHG Vent. Rate : 070 BPM Atrial Rate : 070 BPM P-R Int : 186 ms QRS Dur : 066 ms QT Int : 378 ms P-R-T Axes : 045 002 011 degrees QTc Int : 408 ms Normal sinus rhythm Nonspecific ST abnormality Abnormal ECG When compared with ECG of 03-APR-2020 11:10, Premature atrial complexes are no longer Present Confirmed by Harvey Bland ([id number]) on 03/03/2021 9:55:56 AM Referred By: REFERRED SELF Confirmed By:Harvey Bland
--- NOTE | 2021-03-03 15:28 | Electrocardiogram Report ---
Test Reason : Blood Pressure : / mmHG Vent. Rate : 078 BPM Atrial Rate : 078 BPM P-R Int : 178 ms QRS Dur : 064 ms QT Int : 368 ms P-R-T Axes : 035 017 019 degrees QTc Int : 419 ms Poor data quality, interpretation may be adversely affected Normal sinus rhythm Nonspecific T wave abnormality Abnormal ECG When compared with ECG of 02-MAR-2021 18:27, No significant change was found Confirmed by Harvey Bland ([id number]) on 03/03/2021 3:27:45 PM Referred By: REFERRED SELF Confirmed By:Harvey Bland
--- NOTE | 2021-03-03 17:22 | Hospitalist Progress Note ---
Date of Service March 03, 2021 Assessment & Plan (1) Pneumonia: CXR showed airspace consolidation is seen in the left mid to lower lung. Received Levaquin in the ER Pt was starting on IV Zosyn Blood cx pending Continue monitor closely (2) Diabetes mellitus, type II: (3) Hyperglycemia: Hgb A1c 6.2 on 03/03/21 Continue to hold PO diabetes meds Continue lantus and novolog sliding scale while inpatient Continue monitor BS (4) Elevated troponin: Troponin elevated on admission at 0.060, then trending down 0.058 EKG showed no ischemic changes Will get an echo (5) Neck pain: Will get an xray of the neck Continue tylenol for pain (6) COPD (chronic obstructive pulmonary disease): Continue inhaler Continue monitor (7) GERD (gastroesophageal reflux disease): Coontinue PPI (8) TRINIDAD (obstructive sleep apnea): Will call brother to confirm if pt used Cpap at night Thrombocytopenia Platelet 129 today No sign of bleeding Continue monitor CBC DVT px on SCD Admission and Anticipated Discharge Date Admission Date: March 02, 2021 Subjective Pt was seen and examined for follow of neck pain and abdominal pain Sitting in bed with no distress eating lunch Pt said that he continues to have neck tenderness Denies any chest pain, palpitation and fever Review of Systems Review of Systems: All systems reviewed & are unremarkable except as noted in Subjective Physical Exam Physical Exam: General- No acute distress Head- atraumatic Eyes- PERRL, EOMI, ENT- oropharynx clear Neck- supple, no JVD Lungs- Coarse BS Heart- regular rhythm; no murmur Abdomen- normal bowel sounds, soft, nontender Extremities- no calf tenderness Neuro- alert, oriented x 3; PERRL, EOMI; no facial palsy; no dysarthria Skin- warm & dry Results & Data Results & Data ([facility]) Vital Signs (Past 12 Hours) Vital Signs Temp Pulse Pulse Resp BP Pulse Ox Pulse Ox 03/03/21 15:36 37.0 C 66 18 90/56 L 96 03/03/21 12:45 37.1 C 68 17 99/61 L 93 03/03/21 08:00 72 96 03/03/21 07:47 36.6 C 69 17 100/60 96
--- NOTE | 2021-03-03 18:34 | XRay Report ---
XR cervical spine 2 or 3V CLINICAL HISTORY: neck pain COMPARISON STUDY: Cervical spine CT August 11, 2014. FINDINGS: S-shaped scoliosis of the thoracic spine is incidentally noted. Several old left rib fractu res are incidentally noted. No acute fracture within the cervical spine is noted. Mild multilevel deg enerative disc disease and facet arthrosis is noted. Prevertebral soft tissues are unremarkable. IMPRESSION: 1. No acute cervical spine fracture or subluxation. 2. Mild multilevel degenerative changes within the cervical spine. ACT 112: Negative or not required by law. Electronically signed by: Matias Benson M.D. 03/03/2021 6:33 PM
[2021-03-03] MEDS: SIMVASTATIN 40 MG TAB PO SCH (21:02)
[2021-03-03] MEDS: risperiDONE 0.5 MG TABLET PO SCH (21:02)
[2021-03-03] MEDS: traZODone HCL 50 MG TAB PO SCH (21:02)
[2021-03-03] MEDS: INSULIN GLARGINE SOLOSTAR 100 UNITS/ML 3 ML PEN SC SCH (21:06)
[2021-03-04] MEDS: PIPERACILLIN/TAZOBACTAM 3.375 GM in DEXTROSE 5% 100 ML IV SCH ×3 (01:56→17:58)
[2021-03-04 08:09] LABS: Creatinine Clr Calc Pharmacy 83.9 ml/min; Est GFR (African American) 104.7; Est GFR (Non-African American) 90.4
[2021-03-04] MEDS: INSULIN ASPART 100 UNITS/ML 3 ML PEN SC SCH ×4 (08:30→21:04)
[2021-03-04] MEDS: PENTOXIFYLLINE 400MG EXT REL TAB PO SCH ×3 (08:31→21:06)
[2021-03-04] MEDS: ESCITALOPRAM OXALATE 10 MG TAB PO SCH (08:31)
[2021-03-04] MEDS: METOCLOPRAMIDE HCL 5 MG TABLET PO SCH ×4 (08:31→21:05)
[2021-03-04] MEDS: LORATADINE 10 MG TAB PO SCH (08:31)
[2021-03-04] MEDS: PANTOprazole 40 MG TAB PO SCH (08:31)
[2021-03-04] MEDS: MAGNESIUM OXIDE 400 MG TAB PO SCH ×2 (08:32→21:05)
[2021-03-04] MEDS: DOCUSATE SODIUM/SENNA 50/8.6MG TAB PO SCH ×2 (08:32→21:04)
[2021-03-04] MEDS: UMECLIDINIUM BROMIDE 62.5MCG/BLISTER 7 PUFFS/INHALER INH SCH (08:33)
[2021-03-04] MEDS: clonazePAM 0.25 MG TAB PO SCH ×2 (09:53→21:04)
--- NOTE | 2021-03-04 18:13 | Hospitalist Progress Note ---
Date of Service March 04, 2021 Assessment & Plan (1) Pneumonia: CXR showed airspace consolidation is seen in the left mid to lower lung. Received Levaquin in the ER Continue IV Zosyn for now, will transition to PO in am Blood cx no growth Continue monitor closely (2) Diabetes mellitus, type II: (3) Hyperglycemia: Hgb A1c 6.2 on 03/03/21 Continue to hold PO diabetes meds Continue lantus and novolog sliding scale while inpatient Continue monitor BS (4) Elevated troponin: Troponin elevated on admission at 0.060, then trending down 0.058 EKG showed no ischemic changes ECHO showed no wall motion abnormality with EF 55-60% Denies any chest pain (5) Neck pain: CXR showed no acute cervical spine fracture or subluxation. Mild multilevel degenerative changes within the cervical spine. Continue tylenol for pain (6) COPD (chronic obstructive pulmonary disease): Continue inhaler Continue monitor (7) GERD (gastroesophageal reflux disease): Coontinue PPI (8) TRINIDAD (obstructive sleep apnea): Will call brother to confirm if pt used Cpap at night Thrombocytopenia Platelet 129 today No sign of bleeding Continue monitor CBC DVT px on SCD Admission and Anticipated Discharge Date Admission Date: March 02, 2021 Subjective Pt was seen and examined for follow of neck pain and abdominal pain Sitting in bed with no distress Pt said that the neck tenderness improves Denies any chest pain, palpitation and fever Review of Systems Review of Systems: All systems reviewed & are unremarkable except as noted in Subjective Physical Exam Physical Exam: General- No acute distress Head- atraumatic Eyes- PERRL, EOMI, ENT- oropharynx clear Neck- supple, no JVD Lungs- Coarse BS Heart- regular rhythm; +murmur Abdomen- normal bowel sounds, soft, nontender Extremities- no calf tenderness Neuro- alert, oriented x 3; PERRL, EOMI; no facial palsy; no dysarthria Skin- warm & dry Results & Data Results & Data ([facility]) Vital Signs (Past 12 Hours) Vital Signs Temp Pulse Pulse Resp BP Pulse Ox Pulse Ox 03/04/21 15:53 37.2 C 58 L 19 132/68 94 03/04/21 15:52 51 L 03/04/21 11:29 36.8 C 48 L 18 126/72 94 03/04/21 08:17 36.9 C 53 L 19 120/72 95 03/04/21 08:00 57 L 95
[2021-03-04] MEDS: INSULIN GLARGINE SOLOSTAR 100 UNITS/ML 3 ML PEN SC SCH (21:05)
[2021-03-04] MEDS: risperiDONE 0.5 MG TABLET PO SCH (21:06)
[2021-03-04] MEDS: SIMVASTATIN 40 MG TAB PO SCH (21:06)
[2021-03-04] MEDS: traZODone HCL 50 MG TAB PO SCH (21:06)
[2021-03-05] MEDS: PIPERACILLIN/TAZOBACTAM 3.375 GM in DEXTROSE 5% 100 ML IV SCH ×3 (02:12→17:05)
[2021-03-05 06:45] LABS: Hematocrit (blood only) 33.7 % (42-52); Hemoglobin 10.3 g/dL (14.0-18.0); Mean Corpuscular Hemoglobin 31.7 pg (25-34); Mean Corpuscular Hgb Conc 30.6 g/dL (32-36); Mean Corpuscular Volume 103.7 fL (80-100); Mean Platelet Volume 10.6 fL (7.4-10.4); Platelet Count 102 K/uL (130-400); RDW Coefficient of Variation 13.9 % (11.5-14.5); RDW Standard Deviation 53.2 fL (36.4-46.3); Red Blood Count 3.25 M/uL (4.7-6.1); White Blood Count 4.27 K/uL (4.8-10.8)
[2021-03-05 07:16] LABS: BUN Creatinine Ratio 18.3 (10-20); Calcium 9.1 mg/dl (8.5-10.1); Creatinine Clr Calc Pharmacy 87.9 ml/min; Est GFR (African American) 105.7; Est GFR (Non-African American) 91.2; Potassium 4.5 mmol/L (3.5-5.1)
[2021-03-05] MEDS: METOCLOPRAMIDE HCL 5 MG TABLET PO SCH ×4 (08:11→21:59)
[2021-03-05] MEDS: MAGNESIUM OXIDE 400 MG TAB PO SCH ×2 (08:11→21:59)
[2021-03-05] MEDS: PENTOXIFYLLINE 400MG EXT REL TAB PO SCH ×3 (08:11→21:59)
[2021-03-05] MEDS: UMECLIDINIUM BROMIDE 62.5MCG/BLISTER 7 PUFFS/INHALER INH SCH (08:11)
[2021-03-05] MEDS: PANTOprazole 40 MG TAB PO SCH (08:12)
[2021-03-05] MEDS: LORATADINE 10 MG TAB PO SCH (08:12)
[2021-03-05] MEDS: ESCITALOPRAM OXALATE 10 MG TAB PO SCH (08:12)
[2021-03-05] MEDS: DOCUSATE SODIUM/SENNA 50/8.6MG TAB PO SCH ×2 (08:12→21:53)
[2021-03-05] MEDS: clonazePAM 0.25 MG TAB PO SCH ×2 (08:14→21:59)
[2021-03-05] MEDS: INSULIN ASPART 100 UNITS/ML 3 ML PEN SC SCH ×4 (08:16→22:00)
--- NOTE | 2021-03-05 13:49 | XRay Report ---
KUB CLINICAL HISTORY: Abdominal pain. COMPARISON STUDY: CT of the abdomen and pelvis March 02, 2021. FINDINGS: Incidental note is made of an IVC filter and cholecystectomy clips. Old pelvic, rib and spi ne fractures are noted. The bowel gas pattern is normal. Sensitivity for detection of free air is dim inished on this unenhanced exam but there is no evidence for free air. IMPRESSION: No evidence for a bowel obstruction. ACT 112: Negative or not required by law. Electronically signed by: Matias Benson M.D. 03/05/2021 1:48 PM
--- NOTE | 2021-03-05 17:24 | Hospitalist Progress Note ---
Date of Service March 05, 2021 Assessment & Plan (1) Pneumonia: Sepsis r/o CXR showed airspace consolidation is seen in the left mid to lower lung. Received Levaquin in the ER Continue IV Zosyn for now, will transition to PO in am Blood cx no growth Continue monitor closely (2) Diabetes mellitus, type II: (3) Hyperglycemia: Hgb A1c 6.2 on 03/03/21 Continue to hold PO diabetes meds Continue lantus and novolog sliding scale while inpatient Continue monitor BS (4) Elevated troponin: Demand ischemia in setting of pneumonia Troponin elevated on admission at 0.060, then trending down 0.058 EKG showed no ischemic changes ECHO showed no wall motion abnormality with EF 55-60% Denies any chest pain (5) Neck pain: CXR showed no acute cervical spine fracture or subluxation. Mild multilevel degenerative changes within the cervical spine. Continue tylenol for pain Abdominal pain Possible due to mild ingestion since pt is lactose intolerant KUB showed No evidence for a bowel obstruction. Clinically improves (6) COPD (chronic obstructive pulmonary disease): Continue inhaler Continue monitor (7) GERD (gastroesophageal reflux disease): Coontinue PPI (8) TRINIDAD (obstructive sleep apnea): Will call brother to confirm if pt used Cpap at night Thrombocytopenia Platelet 102 today No sign of bleeding Continue monitor CBC DVT px on SCD Admission and Anticipated Discharge Date Admission Date: March 02, 2021 Subjective Pt was seen and examined for follow of neck pain and abdominal pain Lying in bed with no distress. Pt was having mid abdominal discomfort Nurse said that they spoke to outpatient pharmacy manager and said that pt is lactose intolerant that whenever he drinks mild that it caused him to have abdominal tenderness Denies any chest pain, palpitation and fever Review of Systems Review of Systems: All systems reviewed & are unremarkable except as noted in Subjective Physical Exam Physical Exam: General- No acute distress Head- atraumatic Eyes- PERRL, EOMI, ENT- oropharynx clear Neck- supple, no JVD Lungs- Coarse BS Heart- regular rhythm; +murmur Abdomen- normal bowel sounds, soft, nontender Extremities- no calf tenderness Neuro- alert, oriented x 3; PERRL, EOMI; no facial palsy; no dysarthria Skin- warm & dry Results & Data Results & Data ([facility]) Vital Signs (Past 12 Hours) Vital Signs Temp Pulse Pulse Resp BP Pulse Ox 05/10/21 15:58 36.7 C 60 20 121/70 92 03/05/21 15:54 36.8 C 67 20 161/72 H 93 03/05/21 11:00 36.6 C 63 18 127/68 96 03/05/21 08:00 61 03/05/21 07:30 36.8 C 87 20 125/63 95
[2021-03-05] MEDS: SIMVASTATIN 40 MG TAB PO SCH (21:58)
[2021-03-05] MEDS: risperiDONE 0.5 MG TABLET PO SCH (21:59)
[2021-03-05] MEDS: traZODone HCL 50 MG TAB PO SCH (21:59)
[2021-03-05] MEDS: INSULIN GLARGINE SOLOSTAR 100 UNITS/ML 3 ML PEN SC SCH (22:00)
[2021-03-06] MEDS: PIPERACILLIN/TAZOBACTAM 3.375 GM in DEXTROSE 5% 100 ML IV SCH ×2 (02:01→12:22)
[2021-03-06 06:36] LABS: Hematocrit (blood only) 34.5 % (42-52); Hemoglobin 10.9 g/dL (14.0-18.0); Mean Corpuscular Hemoglobin 32.5 pg (25-34); Mean Corpuscular Hgb Conc 31.6 g/dL (32-36); Mean Platelet Volume 10.9 fL (7.4-10.4); Platelet Count 123 K/uL (130-400); RDW Standard Deviation 52.8 fL (36.4-46.3); Red Blood Count 3.35 M/uL (4.7-6.1); White Blood Count 4.43 K/uL (4.8-10.8)
[2021-03-06 07:15] LABS: Creatinine Clr Calc Pharmacy 75.4 ml/min; Est GFR (African American) 100.1; Est GFR (Non-African American) 86.4
[2021-03-06] MEDS: INSULIN ASPART 100 UNITS/ML 3 ML PEN SC SCH ×2 (07:43→12:25)
[2021-03-06] MEDS: MAGNESIUM OXIDE 400 MG TAB PO SCH (07:45)
[2021-03-06] MEDS: METOCLOPRAMIDE HCL 5 MG TABLET PO SCH ×2 (07:45→12:26)
[2021-03-06] MEDS: PENTOXIFYLLINE 400MG EXT REL TAB PO SCH ×2 (07:46→12:26)
[2021-03-06] MEDS: PANTOprazole 40 MG TAB PO SCH (07:46)
[2021-03-06] MEDS: ESCITALOPRAM OXALATE 10 MG TAB PO SCH (07:47)
[2021-03-06] MEDS: clonazePAM 0.25 MG TAB PO SCH (07:56)
[2021-03-06] MEDS: DOCUSATE SODIUM/SENNA 50/8.6MG TAB PO SCH ×2 (09:26→09:27)
[2021-03-06] MEDS: LORATADINE 10 MG TAB PO SCH (09:27)
[2021-03-06] MEDS: UMECLIDINIUM BROMIDE 62.5MCG/BLISTER 7 PUFFS/INHALER INH SCH (09:27)
--- NOTE | 2021-03-06 15:15 | Hospitalist Progress Note ---
Date of Service March 06, 2021 Assessment & Plan (1) Pneumonia: Sepsis r/o CXR showed airspace consolidation is seen in the left mid to lower lung. Received Levaquin in the ER Continue IV Zosyn for now, will transition to PO augmentin to complete a total of 7 days course Blood cx no growth Continue monitor closely (2) Diabetes mellitus, type II: (3) Hyperglycemia: Hgb A1c 6.2 on 03/03/21 Continue to hold PO diabetes meds Continue lantus and novolog sliding scale while inpatient Continue monitor BS (4) Elevated troponin: Demand ischemia in setting of pneumonia Troponin elevated on admission at 0.060, then trending down 0.058 EKG showed no ischemic changes ECHO showed no wall motion abnormality with EF 55-60% Denies any chest pain (5) Neck pain: CXR showed no acute cervical spine fracture or subluxation. Mild multilevel degenerative changes within the cervical spine. Continue tylenol for pain Abdominal pain Possible due to mild ingestion since pt is lactose intolerant KUB showed No evidence for a bowel obstruction. Clinically improves (6) COPD (chronic obstructive pulmonary disease): Continue inhaler Continue monitor (7) GERD (gastroesophageal reflux disease): Coontinue PPI (8) TRINIDAD (obstructive sleep apnea): Will call brother to confirm if pt used Cpap at night Thrombocytopenia Platelet 123 today No sign of bleeding Continue monitor CBC DVT px on SCD Admission and Anticipated Discharge Date Admission Date: March 02, 2021 Subjective Pt was seen and examined for follow of neck pain and abdominal pain Lying in bed with no distress. Pt said that he feels much better Nurse said that he had diarrhea early Abdominal pain improves Denies any chest pain, palpitation and fever Review of Systems Review of Systems: All systems reviewed & are unremarkable except as noted in Subjective Physical Exam Physical Exam: General- No acute distress Head- atraumatic Eyes- PERRL, EOMI, ENT- oropharynx clear Neck- supple, no JVD Lungs- Coarse BS Heart- regular rhythm; +murmur Abdomen- normal bowel sounds, soft, nontender Extremities- no calf tenderness Neuro- alert, oriented x 3; PERRL, EOMI; no facial palsy; no dysarthria Skin- warm & dry Results & Data Results & Data ([facility]) Vital Signs (Past 12 Hours) Vital Signs Temp Pulse Pulse Resp BP Pulse Ox 03/06/21 11:36 36.6 C 62 155/73 H 95 03/06/21 09:20 60 03/06/21 07:30 36.9 C 61 18 138/72 91 03/06/21 03:27 37 C 50 L 18 100/56 L 92
[2021-03-06] MEDS ORDERED: AMOXICILLIN/CLAVULANATE 875 MG TAB PO SCH (17:00)
--- NOTE | 2021-03-14 00:05 | Discharge Summary ---
Date of Service March 06, 2021 Admission HPI Per Admitting Provider Pt is 65 y/o M with PMH intellectual disability, DM II, COPD, GERD, PVD, TRINIDAD presented to ER for hyperglycemia. Patient resides at [facility]. History assisted by caregiver. Reports that today patient was complaining of not feeling well complaining of neck pain and abdominal pain. Patient points to mid abdomen. She states they noticed dry cough today and noted patient's BSG is to be elevated so brought patient to the ER for evaluation. States patient with history of choking in past. Is unaware of any recent choking. Patient does require small bite sized food as she states he does not chew his food well. Caregiver feels pt appeared to be slightly short of breath today. Patient recently had pneumonia vaccine. He had to doses a COVID-19 vaccine second dose was in December 17. Denies any known COVID-19 exposures. Last BM 2 days ago. Denies any noted fever or chills, vomiting. Patient denies headache, dizziness, or pain in chest, dysuria, sore throat. Denies recent falls, syncope, diarrhea, extremity edema. Caregiver states pt makes medical decisions and no POA or living will on file. Admission Exam Per Admitting Provider General: no distress, WDWN Head: normocephalic, atraumatic Eyes: conjunctiva non-injected, anicteric ENT: normal inspection external ears, nose, mucous membranes mildly dry Neck: supple, trachea midline Lungs: no respiratory distress, +rales bilateral bases, no wheezing noted CV: RRR, no murmur, no pretibial edema Abd: normal BS, soft, non-tender Ext: no cyanosis, no calf tenderness; BLE with venous stasis skin discoloration Neuro: alert, oriented to person, pt with intellectual disability - is at baseline mental status per caregiver, no focal deficits noted, cooperative Skin: warm, dry Principal Diagnosis Pneumonia: Diabetes mellitus, type II: Hyperglycemia: Elevated troponin: Neck pain: Abdominal pain COPD (chronic obstructive pulmonary disease): GERD (gastroesophageal reflux disease): TRINIDAD (obstructive sleep apnea): Thrombocytopenia Discharge Exam General- No acute distress Head- atraumatic Eyes- PERRL, EOMI, ENT- oropharynx clear Neck- supple, no JVD Lungs- Coarse BS Heart- regular rhythm; +murmur Abdomen- normal bowel sounds, soft, nontender Extremities- no calf tenderness Neuro- alert, oriented x 3; PERRL, EOMI; no facial palsy; no dysarthria Skin- warm & dry Discharge Data Allergies Allergy/AdvReac Type Severity Reaction Status Date / Time lactose Allergy Intermediate GI SYMPTOMS Verified 03/11/21 01:49 aspirin Allergy Unknown UNKNOWN Verified 03/11/21 01:49 REACTION cephalexin Allergy Unknown UNKNOWN Verified 03/11/21 01:49 REACTION Cephalosporins Allergy Unknown UNKNOWN Verified 03/11/21 01:49 REACTION Corticosteroids Allergy Unknown UNKNOWN Verified 03/11/21 01:49 (Glucocorticoids) REACTION methylprednisolone Allergy Unknown UNKNOWN Verified 03/11/21 01:49 REACTION shellfish derived Allergy Unknown UNKNOWN Verified 03/11/21 01:49 REACTION Consultations 03/02/21 20:17 ED Decision to Admit Stat Ordered Studies 03/02/21 17:13 CT abd pelvis IV con only Stat KUB CLINICAL HISTORY: Abdominal pain. COMPARISON STUDY: CT of the abdomen and pelvis March 02, 2021. FINDINGS: Incidental note is made of an IVC filter and cholecystectomy clips. Old pelvic, rib and spine fractures are noted. The bowel gas pattern is normal. Sensitivity for detection of free air is diminished on this unenhanced exam but there is no evidence for free air. IMPRESSION: No evidence for a bowel obstruction. ACT 112: Negative or not required by law. XR cervical spine 2 or 3V CLINICAL HISTORY: neck pain COMPARISON STUDY: Cervical spine CT August 11, 2014. FINDINGS: S-shaped scoliosis of the thoracic spine is incidentally noted. Several old left rib fractures are incidentally noted. No acute fracture within the cervical spine is noted. Mild multilevel degenerative disc disease and facet arthrosis is noted. Prevertebral soft tissues are unremarkable. IMPRESSION: 1. No acute cervical spine fracture or subluxation. 2. Mild multilevel degenerative changes within the cervical spine. ACT 112: Negative or not required by law. Electronically signed by: Matias Benson M.D. 03/03/2021 6:33 PM Dictated: 03/03/[id number]: 03/03/211830 SINGLE VIEW CHEST CLINICAL HISTORY: Generalized weakness. FINDINGS: An AP, portable, upright chest radiograph is compared to study dated 04/03/2020 and correlated with chest CT dated 09/08/2016. The examination is degraded by portable technique and patient rotation. The heart is enlarged. The pulmonary vasculature is noncongested. There is mild elevation of the left hemidiaphragm. Airspace consolidation is seen in the left mid to lower lung. No large pleural effusion or pneumothorax is seen. The skeletal structures are osteopenic. There are numerous healed right-sided rib fractures. Degenerative change and scoliosis are noted in the thoracic spine. An IVC filter is noted in the upper abdomen. IMPRESSION: 1. Cardiomegaly without radiographic evidence of congestive failure. 2. Airspace consolidation is seen in the left mid to lower lung. Correlate clinically for evidence of pneumonia/aspiration pneumonitis. Radiographic follow-up to resolution is recommended. ACT 112: Negative or not required by law. Electronically signed by: Beka Irby M.D. 03/02/2021 6:00 PM Dictated: 03/02/[id number]: 03/02/211757 CT SCAN OF THE ABDOMEN AND PELVIS WITH IV CONTRAST CLINICAL HISTORY: Generalized abdominal pain. Nausea. COMPARISON STUDY: Abdominal CT dated 04/03/2020. TECHNIQUE: Following the IV administration of 87 cc of Optiray 300, CT scan of the abdomen and pelvis is performed from the lung bases to the proximal femora. Images are reviewed in the axial, sagittal, and coronal planes. IV contrast was administered without complication. A dose lowering technique was utilized adhering to the principles of ALARA. The Examination is compromised by motion artifact, as well as by streak artifact from the arms which could not be elevated above the abdomen. CT DOSE: 569.99 mGy.cm FINDINGS: Lung bases: The heart is mildly enlarged and without pericardial effusion. There are coronary artery calcifications. Airspace consolidation is seen at the left lung base, with trace left pleural effusion. Minimal opacities are also seen at the right lung base. Liver: The contrast-enhanced liver is enlarged, measuring 22.5 cm in length. The liver is otherwise normal in contour and attenuation. There is no intrahepatic biliary ductal dilatation. The hepatic veins and portal veins are patent. Gallbladder: Surgically absent noting clips in the gallbladder fossa. Spleen: Normal in size and attenuation. Pancreas: Unremarkable. Adrenal glands: Unremarkable. Kidneys: The contrast enhanced kidneys demonstrate cortical atrophy and are without hydronephrosis. The kidneys enhance symmetrically. Abdominal vasculature: The abdominal aorta is normal in course and caliber noting mild to moderate atherosclerotic calcification. A suprarenal IVC filter is in place. Bowel: There is no bowel obstruction. Moderate fecal retention is seen throughout the colon. The appendix is well-visualized and normal. Peritoneum: No intraperitoneal free air is identified. There is trace perihepatic and pelvic ascites. Lymphadenopathy: None. Pelvic viscera: The prostate gland is diminutive and heterogeneous. There is median lobe hypertrophy. The bladder wall appears thickened and trabeculated indicating chronic outlet obstruction. Skeletal structures: The skeletal structures are osteopenic. Mild lumbosacral spondylosis is noted. No lytic or blastic lesions are seen. There are chronic compression for his of T11, T12, and L1. There are healed bilateral pubic ring fractures. Chronic posterior matter deformity is also noted in the sacrum. There are numerous healed bilateral rib fractures. IMPRESSION: 1. Significantly streak and motion compromised examination. 2. Patchy airspace consolidation is seen throughout the left lower lobe with trace left pleural effusion. Minimal opacities are also seen at the right lung base. The appearance is typical for pneumonia/aspiration pneumonitis. Radiographic follow-up to resolution is recommended. 3. There is trace abdominopelvic ascites. 4. Hepatomegaly. 5. Mild/moderate constipation. 6. Additional findings as above. ACT 112: Negative or not required by law. Electronically signed by: Beka Irby M.D. 03/02/2021 7:55 PM Dictated: 03/02/[id number]: 03/02/211947 Hospital Course (1) Pneumonia: Sepsis r/o CXR showed airspace consolidation is seen in the left mid to lower lung. Received Levaquin in the ER Continue IV Zosyn for now, will transition to PO augmentin to complete a total of 7 days course Blood cx no growth Continue monitor closely (2) Diabetes mellitus, type II: (3) Hyperglycemia: Hgb A1c 6.2 on 03/03/21 Continue to hold PO diabetes meds Continue lantus and novolog sliding scale while inpatient Continue monitor BS (4) Elevated troponin: Demand ischemia in setting of pneumonia Troponin elevated on admission at 0.060, then trending down 0.058 EKG showed no ischemic changes ECHO showed no wall motion abnormality with EF 55-60% Denies any chest pain (5) Neck pain: CXR showed no acute cervical spine fracture or subluxation. Mild multilevel degenerative changes within the cervical spine. Continue tylenol for pain Abdominal pain Possible due to mild ingestion since pt is lactose intolerant KUB showed No evidence for a bowel obstruction. Clinically improves (6) COPD (chronic obstructive pulmonary disease): Continue inhaler Continue monitor (7) GERD (gastroesophageal reflux disease): Coontinue PPI (8) TRINIDAD (obstructive sleep apnea): Will call brother to confirm if pt used Cpap at night Thrombocytopenia Platelet 123 today No sign of bleeding Continue monitor CBC DVT px on SCD Total Time Total Time Spent Total Time Spent (In Minutes): 35 minutes Total Time Includes: Examination of the Patient, Discharge Planning, Medication Reconciliation, Communication With Other Providers and Other Discharge Plan Discharge Items Patient Disposition: Personal Senior Care Reason For Visit: ANEMIA, GI BLEED Discharge Diagnosis: Pneumonia: Diabetes mellitus, type II: Hyperglycemia: Elevated troponin: Neck pain: Abdominal pain COPD (chronic obstructive pulmonary disease): GERD (gastroesophageal reflux disease): TRINIDAD (obstructive sleep apnea): Thrombocytopenia Condition on Discharge: Fair Activity: Resume your previous activity Non-emergency contact: Primary Care Provider Call non-emergency contact if: you have any medication questions, your symptoms worsen and your temperature is above 101 Follow-up/Referrals: Andrew Montague MD [Primary Care Provider] - (Date & Time 03/08/2021 11:00 AM Provider Andrew Montague III, MD Department [facility] ) Diet: Lactose Intolerant Diet Texture: Easy to Chew Addtl Attending Provider Instructions: Follow up with your primary care provider Dr. Montague on 03/08/2021 @ 11:00 AM at the [facility] Fall precaution Complete the course of the antibiotic Speech recommended easy to chew food and aspiration precaution Pending Studies at Discharge: No Stand-Alone Forms: [facility] CANDDi, Smoking Cessation Skilled Items Patient informed of condition?: Yes DNR: No Discharge Level of Care: Other Communicable Disease: No Discharge Prognosis: Stable Lines: None Urinary Catheter: No Medications and DC Order Prescriptions: Continued clonazepam 0.5 mg tablet 0.5 mg PO BID RF: 0 trazodone 50 mg Tablet 50 mg PO HS RF: 0 loperamide [Imodium A-D] 2 mg Tablet 2 mg PO UD PRN (Reason: Diarrhea) RF: 0 simvastatin [Zocor] 40 mg Tablet 40 mg PO HS RF: 0 acetaminophen 650 mg Tablet Extended Release 650 mg PO DAILY RF: 0 acetaminophen 650 mg Tablet Extended Release 650 mg PO Q4H MDD 3 GRAM/24 HOURS PRN (Reason: Pain) RF: 0 metoclopramide HCl [Reglan] 5 mg Tablet 5 mg PO ACHS RF: 0 glimepiride [Amaryl] 4 mg Tablet 4 mg PO BIDM RF: 0 calcium carbonate [Tums] 200 mg calcium (500 mg) Tablet,Chewable 1 tab PO BID RF: 0 albuterol sulfate [ProAir HFA] 90 mcg/actuation Hfa Aerosol Inhaler 2 puff INHALATION Q4H PRN (Reason: Shortness Of Breath) RF: 0 cholecalciferol (vitamin D3) [Vitamin D3] 1,000 unit Capsule 1,000 unit PO QAM RF: 0 Januvia 100 mg tablet 100 mg PO QAM RF: 0 omeprazole 20 mg Tablet,Delayed Release (Dr/Ec) 20 mg PO QAM RF: 0 Prolia 60 mg/mL Syringe 60 mg SUBCUT DIRECTED RF: 0 guaifenesin [Mucinex] 600 mg Tablet Extended Release 12hr 600 mg PO Q12H RF: 0 magnesium oxide 400 mg magnesium Tablet 400 mg PO BID RF: 0 metformin 500 mg Tablet Extended Release 24 Hr 1,000 mg PO BID RF: 0 pentoxifylline 400 mg tablet extended release 400 mg PO TID RF: 0 alum-mag hydroxide-simeth [Maalox Advanced] 200-200-20 mg/5 mL Suspension 30 ml PO QPM RF: 0 loratadine [Claritin] 10 mg Tablet 10 mg PO DAILY RF: 0 Incruse Ellipta 62.5 mcg/actuation blister with device 1 inh INHALATION DAILY RF: 0 No Action haloperidol 0.5 mg tablet 0.5 mg PO BID RF: 0 risperidone 2 mg tablet 2 mg PO BID RF: 0 escitalopram oxalate 10 mg tablet 10 mg PO DAILY RF: 0 Incruse Ellipta 62.5 mcg/actuation blister with device 1 inh INHALATION DAILY RF: 0 Discharge Orders: Discharge Order (Routine); Ordered 03/06/21 Ordered By: Florecita Brandon Admission Data Admit Date/Time: 03/02/21 22:04 Attending Provider: Florecita Brandon Admit Provider: Jose Daniel Cohen Primary Care Provider: Andrew Montague Other Providers: Jose Daniel Cohen Other Interventions: Discharge Summary Assessment (RN) Last Done: 03/06/21 15:55
--- NOTE | 2021-03-15 11:35 | Coding Query ---
SEPSIS To promote full compliance with coding requirements relating to patient care, physician participation is requested in all cases of protective signal operator uncertainty. Please assist us with the question(s) below: In responding to this query, please exercise your independent professional judgement. The fact that a question is asked does not imply that any particular answer is desired or expected. We appreciate your clarification on this issue. Throughout the medical record, you have clearly documented a localized infection and your patient has clinical evidence of a generalized sepsis or severe sepsis. The term urosepsis is a nonspecific entity and is coded as an UTI. If the patient has sepsis, severe sepsis, from an urinary source or some other source, please clarify in your response below. The medical record reflects the following clinical findings: Patient presenting with pneumonia and hypotention. Progress notes and D/S mention rule out sepsis . Please check below the applicable phrase regarding the presence/absence of Sepsis .Thank you. Lukas Loo [employer] [facility] ____ ( )Bacteremia (Nonspecific laboratory finding of bacteria in the blood) Specify Organism ( ) Present on Admission ( ) Not present on admission ( ) Unable to clinically determine ( ) Septicemia (Systemic disease associated with the presence of pathogenic microorganisms in the blood): Specify Organism ( ) Present on Admission ( ) Not present on admission ( ) Unable to clinically determine ( ) Sepsis Specify Organism Specify Associated Condition/Diagnosis ( ) Present on Admission ( ) Not present on admission ( ) Unable to clinically determine ( ) Severe Sepsis (Sepsis associated with acute organ dysfunction) Specify Organism Specify Associated Condition/Diagnosis ( ) Present on Admission ( ) Not present on admission ( ) Unable to clinically determine ( ) Septic Shock (Severe sepsis with acute circulatory failure, unexplained by other causes) ( ) Present on Admission ( ) Not present on admission ( ) Unable to clinically determine (x ) Other, patient has: No bacteremia. Sepsis ruled out MTDD
== END 2021-03-06 16:25 | disposition home or self-care (01) | DRG 194 ==
LOC: ED 16:32 → SUATTDRO 22:04 → 2S 22:04

== ENCOUNTER 2022-01-03 06:37 | Inpatient (IN) ==
--- NOTE | 2022-01-03 06:41 | Emergency Department Note ---
Impression & Plan Acute hypoxemic respiratory failure, Intellectual disability, Anemia, Sepsis, Pneumonia, Elevated troponin, Decubital ulcer ED Provider Note NAME: JIMMY MABRY AGE: 66 SEX: M : 1955 ARRIVES VIA: Ambulance INFORMANT: Patient, ED PROVIDER(S): Ronaldo Rodrigues MD Chief Complaint: Mental status change, shortness of breath HPI: Patient presents from skills and has known history of CP and COPD where staff noted the patient has been a little more lethargic than normal. Upon arrival by EMS they noted patient was hypotensive 70/40 hypoxic 88% on room air seemed improved with 4 L nasal cannula. Patient was incontinent of stool and was to see wound care for a wound to the buttocks. Patient reportedly has been compliant with his medications. Upon questioning the patient denies any chest pains or abdominal pain. Patient denies any leg pain or upper extremity pain. ROS: See HPI for pertinent positives and negatives. A total of 10 systems were reviewed and otherwise negative. Past medical history: See below Surgical history: See below Social history: See below Physical Exam: GENERAL: Mildly ill in appearance, wearing a mask, nasal cannula in place. EYE EXAM: Normal conjunctiva. PERRL, no anisocoria and EOM's grossly intact w/o pain. NECK: Supple, no nuchal rigidity, no adenopathy, non-tender. No signs of meningismus. LUNGS: Scant wheezing bilaterally. Normal chest wall mechanics. HEART: Tachycardic and regular, no MRG. ABDOMEN: Abdomen soft, non-tender, normo-active bowel sounds, no masses, no rebound or guarding. BACK: No CVA TTP. SKIN: No rashes and no bruising. Stage II ulceration over the right side of the sacrum. No active drainage. : No obvious swelling redness or crepitus to the scrotum or perineum. UPPER EXTREMITIES: Upper extremities are grossly normal. Slight skin breakdown to the webspace between between the first and second digit with no obvious erythema fluctuance or drainage. No crepitus. LOWER EXTREMITIES: Grossly normal, no edema. NEURO EXAM: Awake and alert, follows basic commands, moves all 4 extremities. Differential diagnoses: Sepsis, UTI, pneumonia, metabolic, electrolyte abnormalities, cardiac sources, intracerebral event, toxicologic, neurologic, as well as other pathologies. Course: Patient was seen and evaluated the bedside. Full history physical exam was performed. EKG interpreted by me Sinus tachycardia, rate of 126, normal intervals, normal axis, no obvious ST changes. Imaging Studies: See Below Cardiac monitoring: An order was placed for continuous cardiac monitoring. The monitor shows a rate of 119 with tachycardia tachycardic and regular rhythm. MDM: Was seen due to concern for hypoxemia and cough. Blood work was obtained along with blood cultures and the patient was treated empirically with Zosyn. MRSA swab and Covid swabs obtained. The patient did receive IV fluids for dehydration. Patient did receive 1500 mL which was somewhat precautionary as well as the patient does have a history of aortic stenosis ie not 30 cc/kg bolus. Patient does have leukopenia with anemia that is chronic and stable at 10.6. Platelet count is unremarkable. Patient's kidney function grossly unremarkable but believe the patient to be likely volume down. Initial lactate 2.2. Patient's initial troponin 2.2. No obvious ST elevations on EKG. currently believe this to be likely demand ischemia. His history concerning for left-sided pneumonia. Pro-Ja of 12. Patient was ordered vancomycin to broaden coverage. MRSA screen negative with negative Covid. I did speak with the on- call hospitalist Brittney Robledo and the patient was admitted by Dr. Martin. Patient's tachycardia has improved significantly. Critical Care: I have personally spent 55 minutes of critical care time in direct management of this patient. This includes bedside care, interpretation of diagnostic studies, and testing, discussion with consultants, patient, and family members, and other require inpatient management activities. This 55 minutes is in excess of all separately billable procedures. Past Med/Surg History Medical History (Updated 01/03/22 @ 13:52 by Ronaldo Rodrigues MD) Anxiety Aortic stenosis Mild per 09/2021 ECHO CAP (community acquired pneumonia) Cerebral palsy Chronic obstructive pulmonary disease Well controlled > hasnt used res inh for 2 yrs Depression Diabetes mellitus, type 2 DJD (degenerative joint disease) Femoral condyle fracture GERD (gastroesophageal reflux disease) History of COVID-19 Tested positive 09/21/21 [facility] ([facility] Sinus congestion only. no hospitalization. No current problems. Hospital-acquired pneumonia Hyperlipidemia Hypotension Intellectual disability Lives at [facility] facility Neuropathy [place] (obstructive sleep apnea) Per records Osteoporosis Peroneal palsy Presence of IVC filter Placed in 1997 per records PVD (peripheral vascular disease) Scoliosis Tibia fracture TMJ (temporomandibular joint disorder) Venous insufficiency Surgical History History of cholecystectomy History of colonoscopy History of tooth extraction S/P cataract surgery Left and Right Family History Father Coronary heart disease Social History Smoking Status: Smoker, status unknown Second Hand Exposure: No; Hx Alcohol Use: Yes Alcohol type: beer Hx Substance Use: No Preferred Language: Polish Communication Ability: Impaired Fire Engineer Required: No Beliefs That Will Affect Care: None marital status: Single Current Living Situation: Boarding Home and Personal Care Facility Current Living Situation Comment: [facility] > with caregivers Feels Safe at Home: Yes Assistive Devices: Denture - Upper, Glasses, Hearing Aid - Left and Walker Allergies Allergies Allergy/AdvReac Type Severity Reaction Status Date / Time lactose Allergy Intermediate GI SYMPTOMS Verified 01/03/22 08:18 aspirin Allergy Unknown UNKNOWN Verified 01/03/22 08:06 REACTION cephalexin Allergy Unknown UNKNOWN Verified 01/03/22 08:06 REACTION Cephalosporins Allergy Unknown UNKNOWN Verified 01/03/22 08:18 REACTION Corticosteroids Allergy Unknown UNKNOWN Verified 01/03/22 08:06 (Glucocorticoids) REACTION methylprednisolone Allergy Unknown UNKNOWN Verified 01/03/22 08:06 REACTION shellfish derived Allergy Unknown UNKNOWN Verified 01/03/22 08:18 REACTION Home Meds Home Medications Medication Instructions Recorded Confirmed albuterol sulfate 90 mcg/actuation 2 puff INHALATION Q4H PRN 12/23/18 01/03/22 aerosol inhaler (ProAir HFA) cholecalciferol (vitamin D3) 25 1,000 unit PO QAM 12/23/18 01/03/22 mcg (1,000 unit) capsule (Vitamin D3) guaifenesin 600 mg tablet, 600 mg PO Q12H 12/23/18 01/03/22 extended release 12 hr (Mucinex) loperamide 2 mg tablet (Imodium 2 mg PO UD PRN 12/23/18 01/03/22 A-D) magnesium oxide 400 mg PO BID 12/23/18 01/03/22 metoclopramide HCl 5 mg tablet 5 mg PO ACHS 12/23/18 01/03/22 (Reglan) omeprazole 20 mg tablet,delayed 20 mg PO QAM 12/23/18 01/03/22 release simvastatin 40 mg tablet (Zocor) 40 mg PO HS 12/23/18 01/03/22 sitagliptin 100 mg tablet (Januvia) 100 mg PO QAM 12/23/18 01/03/22 trazodone 50 mg tablet 50 mg PO HS 12/23/18 01/03/22 loratadine 10 mg tablet (Claritin) 10 mg PO QAM 04/03/20 01/03/22 pentoxifylline 400 mg 400 mg PO TID 04/03/20 01/03/22 tablet,extended release umeclidinium 62.5 mcg/actuation 1 inh INHALATION QAM 03/02/21 01/03/22 blister powder for inhalation (Incruse Ellipta) risperidone 2 mg tablet 2 mg PO BID 03/11/21 01/03/22 artificial tears(hypromellose) 0.3 1 drp OPB QID 11/09/21 01/03/22 % eye gel (Systane Gel) guaifenesin 100 mg/5 mL oral 200 mg PO TID PRN 11/09/21 01/03/22 liquid (Siltussin SA) aluminum-mag hydroxide-simethicone 30 ml PO QPM 11/23/21 01/03/22 200 mg-200 mg-20 mg/5 mL oral susp calcium carbonate 500 mg calcium 500 mg PO BID 11/23/21 01/03/22 (1,250 mg) chewable tablet clonazepam 0.5 mg tablet 0.5 mg PO BID 11/23/21 01/03/22 glimepiride 4 mg tablet 4 mg PO BID 11/23/21 01/03/22 multivitamin (Daily-Shaka) 1 tab PO QAM #0 11/23/21 01/03/22 acetaminophen 650 mg 650 mg PO AMHS MDD 3gm/24hr 01/03/22 01/03/22 tablet,extended release (Arthritis Pain Reliever) escitalopram oxalate 20 mg tablet 20 mg PO QAM 01/03/22 01/03/22 metformin 500 mg tablet,extended 500 - 1,000 mg PO BIDM 01/03/22 01/03/22 release 24 hr mupirocin 2 % topical ointment 1 applic TOPICAL BID 01/03/22 01/03/22 Results & Data (ED) Vital Signs Vital Signs - 24 hr 01/03/22 06:28 01/03/22 06:55 01/03/22 07:30 Temperature 37.6 C H Temperature Source Oral Pulse Rate 121 H Pulse Rate [Apical] 110 H 101 H Pulse Rate from SpO2 Sensor Pulse Rhythm Regular Pulse Rhythm [Apical] Regular Regular Pulse Strength Normal Pulse Strength [Apical] Normal Normal Respiratory Rate 16 20 20 Respiratory Effort / Characteristics Non-Labored Non-Labored Spontaneous Non-Labored Spontaneous Respiratory Depth Normal Normal Normal Respiratory Pattern Regular Regular Blood Pressure 89/63 L Blood Pressure [Right Arm] 83/52 L 82/54 L Blood Pressure Mean 71 Blood Pressure Mean [Right Arm] 62 63 Blood Pressure Position Lying Blood Pressure Position [Right Arm] Sitting Sitting Pulse Oximetry 94 98 98 Oxygen Delivery Method Nasal Cannula Nasal Cannula Nasal Cannula Oxygen Flow Rate 2 2 2 Sepsis Recent Fever Within 48 Hours No Sepsis New/Unexplained Change in Mental Status Yes Sepsis Action Taken by Nursing Physician Notified 01/03/22 08:08 01/03/22 08:15 01/03/22 08:30 Temperature Temperature Source Pulse Rate 120 H 112 H 105 H Pulse Rate [Apical] Pulse Rate from SpO2 Sensor 121 H 113 H 106 H Pulse Rhythm Pulse Rhythm [Apical] Pulse Strength Pulse Strength [Apical] Respiratory Rate 20 22 22 Respiratory Effort / Characteristics Respiratory Depth Respiratory Pattern Blood Pressure 87/41 L 82/47 L 86/43 L Blood Pressure [Right Arm] Blood Pressure Mean 56 58 57 Blood Pressure Mean [Right Arm] Blood Pressure Position Blood Pressure Position [Right Arm] Pulse Oximetry 94 93 95 Oxygen Delivery Method Nasal Cannula Nasal Cannula Nasal Cannula Oxygen Flow Rate 2 2 2 Sepsis Recent Fever Within 48 Hours Sepsis New/Unexplained Change in Mental Status Sepsis Action Taken by Nursing 01/03/22 08:45 01/03/22 09:00 01/03/22 09:15 Temperature Temperature Source Pulse Rate 101 H 108 H 98 H Pulse Rate [Apical] Pulse Rate from SpO2 Sensor 104 H 111 H 99 H Pulse Rhythm Pulse Rhythm [Apical] Pulse Strength Pulse Strength [Apical] Respiratory Rate 20 22 18 Respiratory Effort / Characteristics Respiratory Depth Respiratory Pattern Blood Pressure 89/45 L 95/48 L 93/48 L Blood Pressure [Right Arm] Blood Pressure Mean 59 63 63 Blood Pressure Mean [Right Arm] Blood Pressure Position Blood Pressure Position [Right Arm] Pulse Oximetry 95 98 97 Oxygen Delivery Method Nasal Cannula Nasal Cannula Nasal Cannula Oxygen Flow Rate 2 2 2 Sepsis Recent Fever Within 48 Hours Sepsis New/Unexplained Change in Mental Status Sepsis Action Taken by Detention Medications Current Medication List: was personally reviewed by me Laboratory Data Attestation: I reviewed the patient's lab results. Result diagrams: 01/03/22 06:55 01/03/22 06:55 Lab Results 01/03/22 01/03/22 01/03/22 Range/Units 06:55 06:55 06:55 WBC 2.43 L (4.8-10.8) K/uL RBC 3.16 L (4.7-6.1) M/uL Hgb 10.6 L (14.0-18.0) g/dL Hct 33.4 L (42-52) % MCV 105.7 H (80-100) fL MCH 33.5 (25-34) pg MCHC 31.7 L (32-36) g/dL RDW Std Deviation 56.5 H (36.4-46.3) fL RDW Coeff of Drew 14.5 (11.5-14.5) % Plt Count 182 (130-400) K/uL MPV 10.7 H (7.4-10.4) fL Neutrophils % (Manual) 88.6 % Lymphocytes % (Manual) 9.6 % Monocytes % (Manual) 1.8 % Neutrophils # (Manual) 2.15 (1.4-6.5) K/uL Total Absolute Neuts 2.15 (1.4-6.5) K/uL Lymphocytes # (Manual) 0.23 L (1.2-3.4) K/uL Total Abs Lymphocytes 0.23 L (1.2-3.4) K/uL Monocytes # (Manual) 0.04 L (0.11-0.59) K/uL PT (9.0-12.0) Seconds INR (0.9-1.1) APTT (21.0-31.0) Seconds PTT Ratio Sodium 140 (136-145) mmol/L Potassium 4.3 (3.5-5.1) mmol/L Chloride 105 (98-107) mmol/L Carbon Dioxide 27 (21-32) mmol/L Anion Gap 8 (3-11) BUN 22 (6-23) mg/dl Creatinine 0.76 (0.6-1.4) mg/dl Est Cr Clr Drug Dosing 82.4 ml/min Est GFR ( Amer) 109.4 ml/min Est GFR (Non-Af Amer) 94.4 ml/min BUN/Creatinine Ratio 28.9 H (10-20) Glucose 205 H (70-99(Fasting)) mg/dl Lactate (0.4-2.0) mmol/L Calcium 8.5 (8.5-10.1) mg/dl Magnesium 1.4 L (1.7-2.4) mg/dl Total Bilirubin 0.3 (0.2-1.0) mg/dl AST 15 (13-39) U/L ALT 13 (7-52) U/L Alkaline Phosphatase 83 (34-104) U/L Troponin I 0.20 H* (0-0.04) ng/ml Total Protein 5.3 L (6.0-8.3) gm/dl Albumin 2.8 L (3.4-5.0) gm/dl Globulin 2.5 (2.5-4.0) gm/dl Albumin/Globulin Ratio 1.1 (0.9-2) Procalcitonin Cancelled Nasal Screen MRSA (PCR) (Negative) SARS-CoV-2, RNA, NAAT (NEGATIVE) 01/03/22 01/03/22 01/03/22 Range/Units 06:55 06:55 07:26 WBC (4.8-10.8) K/uL RBC (4.7-6.1) M/uL Hgb (14.0-18.0) g/dL Hct (42-52) % MCV (80-100) fL MCH (25-34) pg MCHC (32-36) g/dL RDW Std Deviation (36.4-46.3) fL RDW Coeff of Drew (11.5-14.5) % Plt Count (130-400) K/uL MPV (7.4-10.4) fL Neutrophils % (Manual) % Lymphocytes % (Manual) % Monocytes % (Manual) % Neutrophils # (Manual) (1.4-6.5) K/uL Total Absolute Neuts (1.4-6.5) K/uL Lymphocytes # (Manual) (1.2-3.4) K/uL Total Abs Lymphocytes (1.2-3.4) K/uL Monocytes # (Manual) (0.11-0.59) K/uL PT 10.3 (9.0-12.0) Seconds INR 1.0 (0.9-1.1) APTT 22.0 (21.0-31.0) Seconds PTT Ratio 0.8 Sodium (136-145) mmol/L Potassium (3.5-5.1) mmol/L Chloride (98-107) mmol/L Carbon Dioxide (21-32) mmol/L Anion Gap (3-11) BUN (6-23) mg/dl Creatinine (0.6-1.4) mg/dl Est Cr Clr Drug Dosing ml/min Est GFR ( Amer) ml/min Est GFR (Non-Af Amer) ml/min BUN/Creatinine Ratio (10-20) Glucose (70-99(Fasting)) mg/dl Lactate 2.2 H* (0.4-2.0) mmol/L Calcium (8.5-10.1) mg/dl Magnesium (1.7-2.4) mg/dl Total Bilirubin (0.2-1.0) mg/dl AST (13-39) U/L ALT (7-52) U/L Alkaline Phosphatase (34-104) U/L Troponin I (0-0.04) ng/ml Total Protein (6.0-8.3) gm/dl Albumin (3.4-5.0) gm/dl Globulin (2.5-4.0) gm/dl Albumin/Globulin Ratio (0.9-2) Procalcitonin Nasal Screen MRSA (PCR) (Negative) SARS-CoV-2, RNA, NAAT NEGATIVE (NEGATIVE) 01/03/22 01/03/22 Range/Units 07:26 07:36 WBC (4.8-10.8) K/uL RBC (4.7-6.1) M/uL Hgb (14.0-18.0) g/dL Hct (42-52) % MCV (80-100) fL MCH (25-34) pg MCHC (32-36) g/dL RDW Std Deviation (36.4-46.3) fL RDW Coeff of Drew (11.5-14.5) % Plt Count (130-400) K/uL MPV (7.4-10.4) fL Neutrophils % (Manual) % Lymphocytes % (Manual) % Monocytes % (Manual) % Neutrophils # (Manual) (1.4-6.5) K/uL Total Absolute Neuts (1.4-6.5) K/uL Lymphocytes # (Manual) (1.2-3.4) K/uL Total Abs Lymphocytes (1.2-3.4) K/uL Monocytes # (Manual) (0.11-0.59) K/uL PT (9.0-12.0) Seconds INR (0.9-1.1) APTT (21.0-31.0) Seconds PTT Ratio Sodium (136-145) mmol/L Potassium (3.5-5.1) mmol/L Chloride (98-107) mmol/L Carbon Dioxide (21-32) mmol/L Anion Gap (3-11) BUN (6-23) mg/dl Creatinine (0.6-1.4) mg/dl Est Cr Clr Drug Dosing ml/min Est GFR ( Amer) ml/min Est GFR (Non-Af Amer) ml/min BUN/Creatinine Ratio (10-20) Glucose (70-99(Fasting)) mg/dl Lactate (0.4-2.0) mmol/L Calcium (8.5-10.1) mg/dl Magnesium (1.7-2.4) mg/dl Total Bilirubin (0.2-1.0) mg/dl AST (13-39) U/L ALT (7-52) U/L Alkaline Phosphatase (34-104) U/L Troponin I (0-0.04) ng/ml Total Protein (6.0-8.3) gm/dl Albumin (3.4-5.0) gm/dl Globulin (2.5-4.0) gm/dl Albumin/Globulin Ratio (0.9-2) Procalcitonin 12.42 H Nasal Screen MRSA (PCR) Negative (Negative) SARS-CoV-2, RNA, NAAT (NEGATIVE) Administered Medications Artificial Tears (Artificial Tears) 1 drops OPB QID SEN Stop: 02/02/22 12:59 Last Admin: 01/03/22 13:22 Dose: 1 drops Documented by: [id number] Guaifenesin (Guaifenesin 600 Mg Tabcr) 600 mg PO Q12H [facility] Stop: 02/02/22 11:14 Last Admin: 01/03/22 12:03 Dose: 600 mg Documented by: [id number] Magnesium Sulfate/Dextrose (Magnesium Sulfate / D5w) 1 gm in 100 mls @ 50 mls/hr IV Q2H SEN Stop: 01/03/22 15:51 Last Admin: 01/03/22 13:14 Dose: 50 mls/hr Documented by: [id number] Infusion: 01/03/22 12:47 Dose: 50 mls/hr Documented by: [id number] Admin: 01/03/22 10:47 Dose: 50 mls/hr Documented by: [id number] Piperacillin Sod/Tazobactam (Sod 3.375 gm/ Dextrose) 115 mls @ 28.75 mls/hr IV Q8H [facility]; Protocol Stop: 01/10/22 11:59 Last Admin: 01/03/22 11:48 Dose: 28.8 mls/hr Documented by: [id number] Sodium Chloride (Nss 1000ml) 1,000 mls @ 80 mls/hr IV .[id number] [facility] Stop: 01/03/22 23:59 Last Admin: 01/03/22 11:47 Dose: 80 mls/hr Documented by: [id number] Insulin Aspart (Insulin Aspart Per Unit) 0 units SC [facility] Stop: 02/02/22 11:29 Last Admin: 01/03/22 12:03 Dose: 6 units Documented by: [id number] Cosigned by: [id number] Metoclopramide HCl (Metoclopramide Hcl 5 Mg Tablet) 5 mg PO ACHS [facility] Stop: 02/02/22 11:29 Last Admin: 01/03/22 12:03 Dose: 5 mg Documented by: [id number] Pentoxifylline (Pentoxifylline 400mg Ext Rel Tab) 400 mg PO TID [facility] Stop: 02/02/22 13:59 Last Admin: 01/03/22 12:03 Dose: 400 mg Documented by: [id number] Discontinued Medications Albuterol (Albut/Ipratrop 3mg/0.5mg Neb 3 Ml Vial) 3 ml NEB NOW STA; Protocol Stop: 01/03/22 06:52 Last Admin: 01/03/22 07:35 Dose: 3 ml Documented by: [id number] Sodium Chloride (Nss 1000ml) 1,000 mls @ 999 mls/hr IV .Q1H1M SEN Stop: 01/03/22 08:00 Last Infusion: 01/03/22 08:29 Dose: 0 mls/hr Documented by: [id number] Admin: 01/03/22 07:29 Dose: 999 mls/hr Documented by: [id number] Piperacillin Sod/Tazobactam Sod (Zosyn) 4.5 gm in 120 mls @ 240 mls/hr IV NOW ONE Stop: 01/03/22 07:22 Last Infusion: 01/03/22 08:05 Dose: 0 mls/hr Documented by: [id number] Admin: 01/03/22 07:35 Dose: 240 mls/hr Documented by: [id number] Sodium Chloride (Nss) 500 mls @ 999 mls/hr IV .Q31M ONE Stop: 01/03/22 08:16 Last Infusion: 01/03/22 08:50 Dose: 0 mls/hr Documented by: [id number] Admin: 01/03/22 08:20 Dose: 999 mls/hr Documented by: [id number] Vancomycin HCl 1,500 mg/ (Sodium Chloride) 530 mls @ 200 mls/hr IV NOW ONE Stop: 01/03/22 11:01 Last Infusion: 01/03/22 11:46 Dose: 0 mls/hr Documented by: [id number] Admin: 01/03/22 08:47 Dose: 200 mls/hr Documented by: [id number] Imaging Data Radiologist's Impression: Chest X-Ray 01/03/22 06:52 XR chest 1V portable CLINICAL HISTORY: SEPSIS. Evaluate cardiopulmonary status COMPARISON STUDY: 11/09/2021 TECHNIQUE: 1 view of the chest FINDINGS: Single frontal view of the chest demonstrates the cardiomediastinal silhouette to be within normal limits. Compared to previous examination, there has been interval development of a large alveolar opacity within the left mid to lower lung with air bronchograms present. The findings are characteristic of pneumonia. The remainder of the lungs are clear of alveolar opacities. There is no evidence for pleural effusion. There is no evidence for vascular congestion. There is no acute osseous pathology. IMPRESSION: 1. Large alveolar opacity within the left mid to lower lung most characteristic of pneumonia. ACT 112: Negative or not required by law. Electronically signed by: Melvin Rivera M.D. 01/03/2022 7:09 AM Discharge Plan Visit Data Chief Complaint: Illness Stated Complaint: illness ED Provider: Ronaldo Rodrigues Discharge Problem: Acute hypoxemic respiratory failure, Intellectual disability, Anemia, Sepsis, Pneumonia, Elevated troponin, Decubital ulcer Patient Disposition: Admitted As Inpatient Discharge Instructions Interventions: ED Discharge Assessment Last Done: 01/03/22 09:50
[2022-01-03] MEDS ORDERED: ALBUT/IPRATROP 3MG/0.5MG NEB 3 ML VIAL NEB STA (06:51)
[2022-01-03] MEDS ORDERED: PIPERACILL/TAZOBAC CONSULT ACTIVE PRN (06:53)
[2022-01-03] MEDS ORDERED: PIPERACILLIN/TAZOBACTAM 4.5 GM/120 ML BAG IV ONE (06:53)
[2022-01-03] MEDS ORDERED: SODIUM CHLORIDE 0.9% 1000ML 1,000 ML IV SCH ×2 (07:00→11:30)
--- NOTE | 2022-01-03 07:11 | XRay Report ---
XR chest 1V portable CLINICAL HISTORY: SEPSIS. Evaluate cardiopulmonary status COMPARISON STUDY: 11/09/2021 TECHNIQUE: 1 view of the chest FINDINGS: Single frontal view of the chest demonstrates the cardiomediastinal silhouette to be within normal li mits. Compared to previous examination, there has been interval development of a large alveolar opaci ty within the left mid to lower lung with air bronchograms present. The findings are characteristic o f pneumonia. The remainder of the lungs are clear of alveolar opacities. There is no evidence for pleural effusio n. There is no evidence for vascular congestion. There is no acute osseous pathology. IMPRESSION: 1. Large alveolar opacity within the left mid to lower lung most characteristic of pneumonia. ACT 112: Negative or not required by law. Electronically signed by: Melvin Rivera M.D. 01/03/2022 7:09 AM
[2022-01-03 07:14] LABS: Hematocrit (blood only) 33.4 % (42-52); Hemoglobin 10.6 g/dL (14.0-18.0); Mean Corpuscular Hemoglobin 33.5 pg (25-34); Mean Corpuscular Hgb Conc 31.7 g/dL (32-36); Mean Corpuscular Volume 105.7 fL (80-100); Mean Platelet Volume 10.7 fL (7.4-10.4); Platelet Count 182 K/uL (130-400); RDW Coefficient of Variation 14.5 % (11.5-14.5); RDW Standard Deviation 56.5 fL (36.4-46.3); Red Blood Count 3.16 M/uL (4.7-6.1); White Blood Count 2.43 K/uL (4.8-10.8)
[2022-01-03 07:25] LABS: Partial Thromboplastin Ratio 0.8; Prothrombin Time 10.3 Seconds (9.0-12.0)
[2022-01-03 07:41] LABS: ALC (manual) 0.23 K/uL (1.2-3.4); ANC (manual) 2.15 K/uL (1.4-6.5); Lymphocytes # (manual) 0.23 K/uL (1.2-3.4); Lymphocytes % (manual) 9.6 %; Monocytes # (manual) 0.04 K/uL (0.11-0.59); Monocytes % (manual) 1.8 %; Neutrophils # (manual) 2.15 K/uL (1.4-6.5); Neutrophils % (manual) 88.6 %
[2022-01-03 07:43] LABS: Troponin I 0.2 ng/ml (0-0.04)
[2022-01-03] MEDS ORDERED: SODIUM CHLORIDE 0.9% 500 ML IV ONE (07:46)
[2022-01-03 07:48] LABS: Albumin Globulin Ratio 1.1 (0.9-2); Albumin Level 2.8 gm/dl (3.4-5.0); BUN Creatinine Ratio 28.9 (10-20); Bilirubin,Total 0.3 mg/dl (0.2-1.0); Calcium 8.5 mg/dl (8.5-10.1); Creatinine Clr Calc Pharmacy 82.4 ml/min; Est GFR (African American) 109.4 ml/min; Est GFR (Non-African American) 94.4 ml/min; Globulin 2.5 gm/dl (2.5-4.0); Magnesium 1.4 mg/dl (1.7-2.4); Potassium 4.3 mmol/L (3.5-5.1); Total Protein 5.3 gm/dl (6.0-8.3)
[2022-01-03] MEDS ORDERED: VANCOMYCIN HCL 1,500 MG in SODIUM CHLORIDE 0.9% 500 ML IV ONE (08:23)
[2022-01-03] MEDS ORDERED: VANCOMYCIN CONSULT ACTIVE PRN (08:23)
--- NOTE | 2022-01-03 08:48 | Electrocardiogram Report ---
Test Reason : Blood Pressure : / mmHG Vent. Rate : 126 BPM Atrial Rate : 126 BPM P-R Int : 150 ms QRS Dur : 092 ms QT Int : 310 ms P-R-T Axes : 044 -09 032 degrees QTc Int : 448 ms Poor data quality, interpretation may be adversely affected Sinus tachycardia Incomplete right bundle branch block Borderline Criteria for Septal infarct Abnormal ECG When compared with ECG of 11-MAR-2021 00:10, Vent. rate has increased BY 50 BPM Incomplete right bundle branch block is now Present Confirmed by Bro Prather ([id number]) on 01/03/2022 8:47:54 AM Referred By: REFERRED SELF Confirmed By:Bro Prather
--- NOTE | 2022-01-03 09:26 | History & Physical Report ---
Date of Service January 03, 2022 Assessment & Plan (1) Sepsis: Plan: IVF started in ED - 1500 ml ordered due to hx of aortic stenosis. Will re-eval BP after initial IVF to determine additional need for IVF. - Admit to PCU - Repeat lactate per protocol - Blood cultures pending - Discussed empiric antibiotics with pharmacy - will start with broad coverage with Zosyn/Vanco but will deescalate when able (2) Pneumonia: Plan: No noted episode of aspiration or concerns for aspiration per staff at long term. - Antibiotic coverage as above - Incentive spirometry/flutter valve - Continue O2 prn to maintain sats (3) Elevated troponin: Plan: No acute changes noted on EKG in ED - Monitor on telemetry - Trend troponin - Repeat EKG in AM (4) Decubital ulcer: Plan: - Consult wound care nurse for additional recommendations - pt was to see [facility] wound care as outpatient today, staff would like pt to f/u with them at discharge - Wound culture (5) Acute hypoxemic respiratory failure: Plan: See plan for #2 (6) Chronic obstructive pulmonary disease: (7) Diabetes mellitus, type 2: (8) GERD (gastroesophageal reflux disease): (9) Intellectual disability: (10) PVD (peripheral vascular disease): Plan: - Continue other home meds as appropriate - PT/OT evals once medically improving Pt seen and reviewed with collaborating physician, Dr. Whiting. Plan of care discussed and as outlined above. Code Status: Full Code DVT Prophylaxis: SCDs, Lovenox Oliva Robledo PA-C History of Present Illness Chief Complaint: cough, lethargy Primary Care Provider: Andrew Montague MD This is a 66 y/o male with a PMH of intellectual disability, DM2, COPD, PVD, TRINIDAD, GERD, chronic stasis dermatitis, hearing loss, osteoporosis, and valvular heart disease (mild MR/TR/Aortic Stenosis) who presents to the ED today from his long term with new-onset cough, lethargy, and abnormal vital signs including hypoxia. History obtained from both the patient and his caregiver at the bedside. Pt was apparently in his usual state of health yesterday - had a visit with his PCP, went out to eat, and was interacting as per usual. This morning when he woke up, he had developed a cough with some questionable wheezing. His AM vital signs revealed hypotension, tachycardia, and hypoxia so EMS was called. Pt was also noted to be more lethargic this usual. Temp this AM was 98.8F and pt did not c/o any chills or sweats. He has not had any vomiting, diarrhea, or loss of appetite. There was no known aspiration episode. He has not been complaining of any more pain than usual. Pt did have a radial shaft fracture earlier this year that did not heal with non-operative management so he underwent surgical intervention in November. He was wearing a splint, which has rubbed the webspace of his left hand to the point that he now has an open wound. He also has a known stage II decubitus ulcer on his buttock. He had been referred to wound care for both of these issues and was to be seen today. Caregiver reports that they saw orthopedics this week who said that pt could discontinue the splint. Pt does have a history of pneumonia with most recent episode in February 2021. Pt also has a hx of MRSA per outpt records. NOTE: Caregiver from his long term states that pt makes all of his own medical decisions and there is no POA or living will on file. He does have a brother but he is only listed as "next of kin" in their records. Allergies Allergy/AdvReac Type Severity Reaction Status Date / Time lactose Allergy Intermediate GI SYMPTOMS Verified 01/03/22 08:18 aspirin Allergy Unknown UNKNOWN Verified 01/03/22 08:06 REACTION cephalexin Allergy Unknown UNKNOWN Verified 01/03/22 08:06 REACTION Cephalosporins Allergy Unknown UNKNOWN Verified 01/03/22 08:18 REACTION Corticosteroids Allergy Unknown UNKNOWN Verified 01/03/22 08:06 (Glucocorticoids) REACTION methylprednisolone Allergy Unknown UNKNOWN Verified 01/03/22 08:06 REACTION shellfish derived Allergy Unknown UNKNOWN Verified 01/03/22 08:18 REACTION Home Medications Medication Instructions Recorded Confirmed Type albuterol sulfate 90 mcg/actuation 2 puff INHALATION Q4H PRN 12/23/18 01/03/22 History aerosol inhaler (ProAir HFA) cholecalciferol (vitamin D3) 25 1,000 unit PO QAM 12/23/18 01/03/22 History mcg (1,000 unit) capsule (Vitamin D3) guaifenesin 600 mg tablet, 600 mg PO Q12H 12/23/18 01/03/22 History extended release 12 hr (Mucinex) loperamide 2 mg tablet (Imodium 2 mg PO UD PRN 12/23/18 01/03/22 History A-D) magnesium oxide 400 mg PO BID 12/23/18 01/03/22 History metoclopramide HCl 5 mg tablet 5 mg PO ACHS 12/23/18 01/03/22 History (Reglan) omeprazole 20 mg tablet,delayed 20 mg PO QAM 12/23/18 01/03/22 History release simvastatin 40 mg tablet (Zocor) 40 mg PO HS 12/23/18 01/03/22 History sitagliptin 100 mg tablet (Januvia) 100 mg PO QAM 12/23/18 01/03/22 History trazodone 50 mg tablet 50 mg PO HS 12/23/18 01/03/22 History loratadine 10 mg tablet (Claritin) 10 mg PO QAM 04/03/20 01/03/22 History pentoxifylline 400 mg 400 mg PO TID 04/03/20 01/03/22 History tablet,extended release umeclidinium 62.5 mcg/actuation 1 inh INHALATION QAM 03/02/21 01/03/22 History blister powder for inhalation (Incruse Ellipta) risperidone 2 mg tablet 2 mg PO BID 03/11/21 01/03/22 History artificial tears(hypromellose) 0.3 1 drp OPB QID 11/09/21 01/03/22 History % eye gel (Systane Gel) guaifenesin 100 mg/5 mL oral 200 mg PO TID PRN 11/09/21 01/03/22 History liquid (Siltussin SA) aluminum-mag hydroxide-simethicone 30 ml PO QPM 11/23/21 01/03/22 History 200 mg-200 mg-20 mg/5 mL oral susp calcium carbonate 500 mg calcium 500 mg PO BID 11/23/21 01/03/22 History (1,250 mg) chewable tablet clonazepam 0.5 mg tablet 0.5 mg PO BID 11/23/21 01/03/22 History glimepiride 4 mg tablet 4 mg PO BID 11/23/21 01/03/22 History multivitamin (Daily-Shaka) 1 tab PO QAM #0 11/23/21 01/03/22 History acetaminophen 650 mg 650 mg PO AMHS MDD 3gm/24hr 01/03/22 01/03/22 History tablet,extended release (Arthritis Pain Reliever) escitalopram oxalate 20 mg tablet 20 mg PO QAM 01/03/22 01/03/22 History metformin 500 mg tablet,extended 500 - 1,000 mg PO BIDM 01/03/22 01/03/22 History release 24 hr mupirocin 2 % topical ointment 1 applic TOPICAL BID 01/03/22 01/03/22 History Past Med/Surg History Medical History (Updated 01/03/22 @ 09:47 by Lorie Robledo PA-C) Anxiety Aortic stenosis Mild per 09/2021 ECHO CAP (community acquired pneumonia) Cerebral palsy Chronic obstructive pulmonary disease Well controlled > hasnt used res inh for 2 yrs Depression Diabetes mellitus, type 2 DJD (degenerative joint disease) Femoral condyle fracture GERD (gastroesophageal reflux disease) History of COVID-19 Tested positive 09/21/21 [facility] ([facility] Sinus congestion only. no hospitalization. No current problems. Hospital-acquired pneumonia Hyperlipidemia Hypotension Intellectual disability [facility] at [facility] Neuropathy TRINIDAD (obstructive sleep apnea) Per records Osteoporosis Peroneal palsy Presence of IVC filter Placed in 1997 per records PVD (peripheral vascular disease) Scoliosis Tibia fracture TMJ (temporomandibular joint disorder) Venous insufficiency Surgical History History of cholecystectomy History of colonoscopy History of tooth extraction S/P cataract surgery Left and Right Family History Father Coronary heart disease Social History Smoking Status: Smoker, status unknown Second Hand Exposure: No; Hx Alcohol Use: Yes Alcohol type: beer Hx Substance Use: No Preferred Language: Vietnamese Communication Ability: Impaired Manager Change Required: No Beliefs That Will Affect Care: None marital status: Single Current Living Situation: [facility] Current Living Situation Comment: long term with [facility] with caregivers Feels Safe at Home: Yes Assistive Devices: Denture - Upper, Glasses, Hearing Aid - Left and Walker Review of Systems Review of Systems: Other (Limited due to intellectual disability - please see HPI for additional details.) Physical Exam Constitutional: + thin and + frail appearing; no acute distress Eyes: PERRL, conjunctivae normal, anicteric sclerae Neck: trachea midline Respiratory: no respiratory distress and no labored breathing Auscultation: + crackles (left mid to lower lung); no wheezes otherwise clear Cardiovascular: Rate/Rhythm: regular rhythm and + tachycardic Heart Sounds: + murmur Vessels: posterior tibial pulses present and radial pulses present Extremities: no pedal edema Gastrointestinal (Abdomen): Inspection/Auscultation: normal bowel sounds; abdomen not distended Percussion/Palpation: abdomen soft; abdomen nontender Musculoskeletal: Head/Neck/Chest: normocephalic, head atraumatic and neck supple Skin: chronic stasis changes bilateral LE. Ulcer webspace of left hand - dressing applied by nursing. stage 2 ulcer right sacral area Neurologic: moves all extremities; no focal motor deficits Results & Data Results & Data ([facility]) Vital Signs (Past 12 Hours) Vital Signs Temp Pulse Pulse Resp BP BP Pulse Ox 01/03/22 07:30 101 H 20 82/54 L 98 01/03/22 06:55 110 H 20 83/52 L 98 01/03/22 06:28 37.6 C H 121 H 16 89/63 L 94 Laboratory Results Laboratory Results - last 24 hr 01/03/22 01/03/22 01/03/22 06:55 06:55 06:55 WBC 2.43 L RBC 3.16 L Hgb 10.6 L Hct 33.4 L MCV 105.7 H MCH 33.5 MCHC 31.7 L RDW Std Deviation 56.5 H RDW Coeff of Drew 14.5 Plt Count 182 MPV 10.7 H Neutrophils % (Manual) 88.6 Lymphocytes % (Manual) 9.6 Monocytes % (Manual) 1.8 Neutrophils # (Manual) 2.15 Total Absolute Neuts 2.15 Lymphocytes # (Manual) 0.23 L Total Abs Lymphocytes 0.23 L Monocytes # (Manual) 0.04 L PT INR APTT PTT Ratio Sodium 140 Potassium 4.3 Chloride 105 Carbon Dioxide 27 Anion Gap 8 BUN 22 Creatinine 0.76 Est Cr Clr Drug Dosing 82.4 Est GFR ( Amer) 109.4 Est GFR (Non-Af Amer) 94.4 BUN/Creatinine Ratio 28.9 H Glucose 205 H Lactate Calcium 8.5 Magnesium 1.4 L Total Bilirubin 0.3 AST 15 ALT 13 Alkaline Phosphatase 83 Troponin I 0.20 H* Total Protein 5.3 L Albumin 2.8 L Globulin 2.5 Albumin/Globulin Ratio 1.1 Procalcitonin Cancelled Nasal Screen MRSA (PCR) SARS-CoV-2, RNA, NAAT 01/03/22 01/03/22 01/03/22 06:55 06:55 07:26 WBC RBC Hgb Hct MCV MCH MCHC RDW Std Deviation RDW Coeff of Drew Plt Count MPV Neutrophils % (Manual) Lymphocytes % (Manual) Monocytes % (Manual) Neutrophils # (Manual) Total Absolute Neuts Lymphocytes # (Manual) Total Abs Lymphocytes Monocytes # (Manual) PT 10.3 INR 1.0 APTT 22.0 PTT Ratio 0.8 Sodium Potassium Chloride Carbon Dioxide Anion Gap BUN Creatinine Est Cr Clr Drug Dosing Est GFR ( Amer) Est GFR (Non-Af Amer) BUN/Creatinine Ratio Glucose Lactate 2.2 H* Calcium Magnesium Total Bilirubin AST ALT Alkaline Phosphatase Troponin I Total Protein Albumin Globulin Albumin/Globulin Ratio Procalcitonin Nasal Screen MRSA (PCR) SARS-CoV-2, RNA, NAAT NEGATIVE 01/03/22 01/03/22 07:26 07:36 WBC RBC Hgb Hct MCV MCH MCHC RDW Std Deviation RDW Coeff of Drew Plt Count MPV Neutrophils % (Manual) Lymphocytes % (Manual) Monocytes % (Manual) Neutrophils # (Manual) Total Absolute Neuts Lymphocytes # (Manual) Total Abs Lymphocytes Monocytes # (Manual) PT INR APTT PTT Ratio Sodium Potassium Chloride Carbon Dioxide Anion Gap BUN Creatinine Est Cr Clr Drug Dosing Est GFR ( Amer) Est GFR (Non-Af Amer) BUN/Creatinine Ratio Glucose Lactate Calcium Magnesium Total Bilirubin AST ALT Alkaline Phosphatase Troponin I Total Protein Albumin Globulin Albumin/Globulin Ratio Procalcitonin 12.42 H Nasal Screen MRSA (PCR) Negative SARS-CoV-2, RNA, NAAT Diagnostic Findings Chest X-ray 01/03/22 - IMPRESSION: 1. Large alveolar opacity within the left mid to lower lung most characteristic of pneumonia. Medications Administered Vancomycin HCl 1,500 mg/ (Sodium Chloride) 530 mls @ 200 mls/hr IV NOW ONE Stop: 01/03/22 11:01 Last Admin: 01/03/22 08:47 Dose: 200 mls/hr Documented by: [id number] Discontinued Medications Albuterol (Albut/Ipratrop 3mg/0.5mg Neb 3 Ml Vial) 3 ml NEB NOW STA; Protocol Stop: 01/03/22 06:52 Last Admin: 01/03/22 07:35 Dose: 3 ml Documented by: [id number] Sodium Chloride (Nss 1000ml) 1,000 mls @ 999 mls/hr IV .Q1H1M SEN Stop: 01/03/22 08:00 Last Infusion: 01/03/22 08:29 Dose: 0 mls/hr Documented by: [id number] Admin: 01/03/22 07:29 Dose: 999 mls/hr Documented by: [id number] Piperacillin Sod/Tazobactam Sod (Zosyn) 4.5 gm in 120 mls @ 240 mls/hr IV NOW ONE Stop: 01/03/22 07:22 Last Infusion: 01/03/22 08:05 Dose: 0 mls/hr Documented by: [id number] Admin: 01/03/22 07:35 Dose: 240 mls/hr Documented by: [id number] Sodium Chloride (Nss) 500 mls @ 999 mls/hr IV .Q31M ONE Stop: 01/03/22 08:16 Last Infusion: 01/03/22 08:50 Dose: 0 mls/hr Documented by: [id number] Admin: 01/03/22 08:20 Dose: 999 mls/hr Documented by: [id number] Code Status & VTE Plan VTE Prophylaxis Plan VTE Prophylaxis will be ordered: Yes Supervising Physician Co-Signing Physician Notes Attending addendum: The patient was seen and examined in telemetry unit He is a 66-year-old male with cerebral palsy apparently was brought into ER with change in mental status, hypotension, hypoxia with increasing lactate and procalcitonin level Noted to have sepsis secondary to multilobar pneumonia on the left side He has been minimally communicative but denies any acute distress On examination Minimally communicative but no acute distress at rest Blood pressure noted to be low at 87/49 Chestdecreased breath sounds by basally with crackles at the left base HeartS1, S2 with a 2/6 ESM over precordium Abdomenbenign Extremitieschronic skin changes but no edema has osteoarthritic changes with deformity involving the toes CNSalert and awake. Minimally communicative. Generally very weak. No focal weakness Her admission labs, EKG and imaging studies reviewed Has severe sepsis secondary to left-sided multilobar pneumonia and likely complicated by sacral decubiti Blood cultures were taken and received appropriate amount of IV fluid(history of aortic stenosis) and antibiotics Agree with assessment and plan as outlined above by CHERELLE Curran Dr
[2022-01-03] MEDS ORDERED: NITROGLYCERIN SL 0.4 MG/TAB TAB SL PRN (10:25)
[2022-01-03] MEDS ORDERED: GLUCOSE 40% GEL 15 GM TUBE PO PRN (10:47)
[2022-01-03] MEDS ORDERED: GLUCOSE 10 TABS/TUBE PO PRN (10:47)
[2022-01-03] MEDS: MAGNESIUM SULFATE / D5W 1 GM/100 ML BAG IV SCH ×3 (10:47→15:37)
[2022-01-03] MEDS ORDERED: GLUCAGON FOR INJ 1 MG VIAL SQ PRN (10:47)
[2022-01-03] MEDS ORDERED: DEXTROSE 50% 50 ML SYRINGE IV PRN (10:47)
--- NOTE | 2022-01-03 10:58 | Pharmacy Report ---
Pharmacy Vanc AUC Short Note - Date of Service January 03, 2022 - Assessment & Plan Assessment 66 year old M receiving empiric vancomycin and Zosyn for treatment of possible pneumonia/concern for infected wounds with history of MRSA (per outpatient records). Pertinent microbiologic data includes: MRSA nasal swab negative, blood cultures x 2 ordered/pending. Day # 1 of antimicrobial therapy. Open wound noted on left hand and stage II decubitus ulcer on buttock. Uncertain if aspiration event occurred. Follow cultures. Regimen can likely be de- escalated in next couple of days. Plan Vancomycin * Loading dose of 1500 mg IV x 1 (~24 mg/kg) given at 0847 today 01/03/22 * AUC/HOPE is the preferred PK/PD target for vancomycin * AUC guided dosing is effective and associated with decreased risk of nephrotoxicity compared to traditional trough targets * Ordered dose of 750 mg IV q12h is predicted to achieve target AUC/HOPE of 400- 600 mg/L.hr and may be associated with a 9 % risk of nephrotoxicity * Will order vanco trough once at steady-state and if extended beyond 48 hours Zosyn * 3.375 g IV q8h - okay for now Pharmacy will continue to follow and will adjust dose/frequency as necessary. Thank you.
[2022-01-03] MEDS: PIPERACILLIN/TAZOBACTAM 3.375 GM in DEXTROSE 5% 100 ML IV SCH ×2 (11:48→19:56)
[2022-01-03] MEDS: PENTOXIFYLLINE 400MG EXT REL TAB PO SCH ×2 (12:03→21:03)
[2022-01-03] MEDS: METOCLOPRAMIDE HCL 5 MG TABLET PO SCH ×3 (12:03→21:02)
[2022-01-03] MEDS: guaiFENesin 600 MG TABCR PO SCH ×2 (12:03→21:06)
[2022-01-03] MEDS: INSULIN ASPART PER UNIT SC SCH ×3 (12:03→21:34)
[2022-01-03] MEDS: ARTIFICIAL TEARS OPB SCH ×3 (13:22→21:00)
[2022-01-03 16:39] LABS: Appearance Urine Clear (Clear); Bilirubin Urine Negative (Negative); Blood Urine Negative (Negative); Color Urine Yellow; Glucose Urine UA Negative (Negative); Ketones Urine Negative (Negative); Leukocyte Esterase Urine Negative (Negative); Nitrite Urine Negative (Negative); Protein Urine Negative (Negative); Urobilinogen Urine Negative (Negative); pH Urine 5.5 (4.5-7.5)
[2022-01-03] MEDS: VANCOMYCIN HCL 750 MG in SODIUM CHLORIDE 0.9% 250 ML IV SCH (18:29)
[2022-01-03] MEDS ORDERED: Flu Vaccine-High Dose (Fluzone-HD) PF 65+ 0.7mL SYR IM ONE (18:45)
[2022-01-03] MEDS ORDERED: PNEUMOCOCCAL Polysaccharide Vaccine 25mcg/0.5mL vial/Syr IM ONE (18:45)
[2022-01-03] MEDS: clonazePAM 0.5 MG TAB PO SCH (21:01)
[2022-01-03] MEDS: MAGNESIUM OXIDE 400 MG TAB PO SCH (21:02)
[2022-01-03] MEDS: risperiDONE 2 MG TABLET PO SCH (21:04)
[2022-01-03] MEDS: traZODone HCL 50 MG TAB PO SCH (21:04)
[2022-01-03] MEDS: SIMVASTATIN 40 MG TAB PO SCH (21:05)
[2022-01-04] MEDS: PIPERACILLIN/TAZOBACTAM 3.375 GM in DEXTROSE 5% 100 ML IV SCH ×3 (04:47→19:12)
[2022-01-04] MEDS: VANCOMYCIN HCL 750 MG in SODIUM CHLORIDE 0.9% 250 ML IV SCH (04:57)
[2022-01-04] MEDS: ACETAMINOPHEN 325 MG TAB PO PRN (05:04)
--- NOTE | 2022-01-04 07:08 | Electrocardiogram Report ---
Test Reason : Blood Pressure : / mmHG Vent. Rate : 069 BPM Atrial Rate : 069 BPM P-R Int : 162 ms QRS Dur : 080 ms QT Int : 388 ms P-R-T Axes : 060 009 014 degrees QTc Int : 415 ms Sinus rhythm Abnormal ECG When compared with ECG of 03-JAN-2022 06:44, Vent. rate has decreased BY 57 BPM Incomplete right bundle branch block is no longer Present Borderline Criteria for Septal infarct no longer present Confirmed by Bro Prather ([id number]) on 01/04/2022 7:08:22 AM Referred By: REFERRED SELF Confirmed By:Bro Prather
[2022-01-04 07:59] LABS: Hematocrit (blood only) 30.3 % (42-52); Hemoglobin 9.4 g/dL (14.0-18.0); Mean Corpuscular Hemoglobin 32.8 pg (25-34); Mean Corpuscular Volume 105.6 fL (80-100); Mean Platelet Volume 10.7 fL (7.4-10.4); Platelet Count 146 K/uL (130-400); RDW Coefficient of Variation 14.9 % (11.5-14.5); RDW Standard Deviation 57.4 fL (36.4-46.3); Red Blood Count 2.87 M/uL (4.7-6.1); White Blood Count 7.78 K/uL (4.8-10.8)
[2022-01-04 08:28] LABS: Basophils # (auto) 0.02 K/uL (0-0.2); Basophils % (auto) 0.3 %; Eosinophils # (auto) 0.03 K/uL (0-0.5); Eosinophils % (auto) 0.4 %; Immature Granulocytes # (auto) 0.14 K/uL (0.00-0.02); Immature Granulocytes % (auto) 1.8 %; Lymphocytes # (auto) 0.85 K/uL (1.2-3.4); Lymphocytes % (auto) 10.9 %; Monocytes # (auto) 0.46 K/uL (0.11-0.59); Monocytes % (auto) 5.9 %; Neutrophils # (auto) 6.28 K/uL (1.4-6.5); Neutrophils % (auto) 80.7 %
[2022-01-04] MEDS: METOCLOPRAMIDE HCL 5 MG TABLET PO SCH ×4 (08:34→20:09)
[2022-01-04] MEDS: CHOLECALCIFEROL 1,000 UNITS 25 MCG TAB PO SCH (08:34)
[2022-01-04] MEDS: ARTIFICIAL TEARS OPB SCH ×4 (08:34→20:07)
[2022-01-04] MEDS: clonazePAM 0.5 MG TAB PO SCH ×2 (08:34→20:08)
[2022-01-04] MEDS: ENOXAPARIN INJ 30 MG/0.3 ML SYR SQ SCH (08:34)
[2022-01-04] MEDS: MAGNESIUM OXIDE 400 MG TAB PO SCH ×2 (08:35→20:10)
[2022-01-04] MEDS: ESCITALOPRAM OXALATE 20 MG TAB PO SCH (08:35)
[2022-01-04] MEDS: LORATADINE 10 MG TAB PO SCH (08:35)
[2022-01-04] MEDS: MULTIVITAMIN TAB PO SCH (08:35)
[2022-01-04] MEDS: PANTOprazole 40 MG TAB PO SCH (08:36)
[2022-01-04] MEDS: guaiFENesin 600 MG TABCR PO SCH ×2 (08:38→20:11)
[2022-01-04] MEDS: UMECLIDINIUM BROMIDE 62.5MCG/BLISTER 7 PUFFS/INHALER INH SCH (08:38)
[2022-01-04] MEDS: risperiDONE 2 MG TABLET PO SCH ×2 (08:38→20:12)
[2022-01-04] MEDS: PENTOXIFYLLINE 400MG EXT REL TAB PO SCH ×3 (08:38→20:10)
[2022-01-04] MEDS ORDERED: INSULIN GLARGINE SOLOSTAR 100 UNITS/ML 3 ML PEN SC SCH (09:00)
[2022-01-04 09:12] LABS: BUN Creatinine Ratio 28.3 (10-20); Calcium 7.9 mg/dl (8.5-10.1); Creatinine Clr Calc Pharmacy 109.5 ml/min; Est GFR (African American) 120.6 ml/min; Magnesium 1.6 mg/dl (1.7-2.4); Potassium 4.1 mmol/L (3.5-5.1)
[2022-01-04] MEDS ORDERED: SODIUM CHLORIDE 0.9% 1000ML 1,000 ML IV SCH ×2 (09:15→22:30)
[2022-01-04] MEDS: INSULIN ASPART PER UNIT SC SCH ×4 (09:27→20:35)
[2022-01-04 10:25] LABS: Estimated Average Glucose 114 mg/dl; Hemoglobin A1C 5.6 % (4.5-5.6)
--- NOTE | 2022-01-04 13:27 | Hospitalist Progress Note ---
Date of Service January 04, 2022 Assessment & Plan (1) Sepsis: Plan: Sepsis Multifocal pneumonia --CXR:Large alveolar opacity within the left mid to lower lung most characteristic of pneumonia. --Blood Culture:Negative to date Lactic acid levels normalized with IV fluids Procalcitonin 12.42 Continue vancomycin, Zosyn Continue IV fluids Follow-up cultures Influenza, RSV screen pending Aspiration precautions Wean off of supplemental oxygen as able (2) Pneumonia: (3) Elevated troponin: Plan: Likely demand ischemia secondary to above Troponin trended down (4) Decubital ulcer: Plan: Stage II decubitus ulcer Continue wound care Needs follow-up with wound care clinic upon discharge (5) Acute hypoxemic respiratory failure: Plan: Management as above (6) Chronic obstructive pulmonary disease: Plan: No signs of exacerbation Continue home inhalers (7) Diabetes mellitus, type 2: Plan: Hold p.o. medications Continue insulin treatment Glycemic pharmacy consulted to help with glycemic management Hypomagnesemia Magnesium 1.6 Replace electrolytes as needed (8) GERD (gastroesophageal reflux disease): Plan: Continue PPI (9) Intellectual disability: Plan: On risperidone, escitalopram (10) PVD (peripheral vascular disease): Plan: DVT Px: Lovenox SQ Code Status: Full Code Admission and Anticipated Discharge Date Admission Date: January 03, 2022 Subjective Patient is seen and examined at bedside Poor historian secondary to intellectual disability No distress on exam BP low today Saturating well on minimal supplemental oxygen Afebrile No significant cough as per staff Review of Systems Review of Systems: All systems reviewed & are unremarkable except as noted in Subjective Physical Exam Physical Exam: Physical Exam: Vitals signs as noted above General Appearance:Thin, frail, chronic ill appearing, no apparent distress Head: normocephalic, Atraumatic Eyes: normal inspection, EOMI Neck: supple, Trachea midline Respiratory/Chest: Normal breath sounds, L basal crackles, No accessory muscle use Cardiovascular: S1, S2, + murmur Abdomen/GI:Soft, Non tender, Bowel sounds present Extremities/Musculoskeletal:normal inspection, Trace edema, + chronic venous st asis changes, stage 2 sacral ulcer Neurologic/Psych:grossly no focal neurological deficits, + Intellectual disability Skin: normal color, warm Results & Data Results & Data ([facility]) Vital Signs (Past 12 Hours) Vital Signs Temp Pulse Pulse Resp BP BP Pulse Ox 01/04/22 13:12 16 95 01/04/22 11:28 36.9 C 80 17 94/58 L 97 01/04/22 10:22 66 01/04/22 10:00 98 01/04/22 08:11 36.5 C 57 L 16 90/53 L 97 01/04/22 08:00 85 96 01/04/22 04:49 36.8 C 78 16 93/52 L 92 Laboratory Results Short CBC 01/04/22 Range/Units 07:42 WBC 7.78 (4.8-10.8) K/uL Hgb 9.4 L (14.0-18.0) g/dL Hct 30.3 L (42-52) % Plt Count 146 (130-400) K/uL BMP 01/04/22 07:42 Sodium 136 Potassium 4.1 Chloride 106 Carbon Dioxide 26 BUN 17 Creatinine 0.60 Glucose 168 H Calcium 7.9 L Cardiac Enzymes 01/03/22 01/03/22 Range/Units 13:01 19:00 Troponin I 0.14 H* 0.08 H* (0-0.04) ng/ml Urine 01/03/22 Range/Units 14:22 Urine Color Yellow Urine Appearance Clear (Clear) Urine pH 5.5 (4.5-7.5) Ur Specific Dix 1.010 (1.000-1.030) Urine Protein Negative (Negative) Urine Glucose (UA) Negative (Negative) (1) Sepsis Acute respiratory failure type: with hypoxia Sepsis acute organ dysfunction status: with acute organ dysfunction Sepsis type: sepsis due to unspecified organism Severe sepsis acute organ dysfunction type: acute respiratory failure Severe sepsis shock status: unspecified Qualified Code(s): A41.9 - Sepsis, unspecified organism; R65.20 - Severe sepsis without septic shock; J96.01 - Acute respiratory failure with hypoxia (2) Pneumonia Laterality: left Lung location: unspecified part of lung Pneumonia type: due to unspecified organism Qualified Code(s): J18.9 - Pneumonia, unspecified organism (3) Decubital ulcer Pressure injury location: sacral region Pressure injury stage: stage 2 Qualified Code(s): L89.152 - Pressure ulcer of sacral region, stage 2
[2022-01-04] MEDS ORDERED: PHARMACY GLYCEMIC MGMT CONSULT PRN (13:34)
[2022-01-04] MEDS ORDERED: INSULIN GLARGINE SOLOSTAR 100 UNITS/ML 3 ML PEN SC ONE (14:00)
--- NOTE | 2022-01-04 14:31 | Pharmacy Report ---
Pharmacy Glycemic Short Note 2 - Date of Service January 04, 2022 - Glycemic Short BSG Results (Last 24 hours): 01/03/22 01/03/22 01/04/22 16:29 21:22 07:17 Glucose POC Glucose 210 H 129 H 196 H 01/04/22 01/04/22 01/04/22 07:42 13:23 13:25 Glucose 168 H POC Glucose 351 H* 346 H* OUTPATIENT ANTIDIABETIC REGIMEN: * Metformin 1000 mg PO qAM, 500 mg PO qPM * Januvia 100 mg PO daily * Glimepiride 4 mg PO BID * HbA1c: 5.6% (01/04/22) ASSESSMENT: * BC is a 66 year old male admitted on 01/03/22 with sepsis secondary to suspected multifocal pneumonia * Pharmacy consulted for glycemic management due to lunch BSG of 346 mg/dL * Patient has excellent HbA1c on three oral medications * Will be slightly conservative with initial insulin dosing PLAN FOR INPATIENT GLYCEMIC CONTROL: * Hold outpatient oral diabetes medications * Basal insulin * Lantus 5 units SC given this morning * Will order one-time 10 unit dose (15 units total for full weight-based in between stress of 1-2) * Bolus insulin * NovoLog per scale ACHS or Q6hrs while NPO * Goal Range: Low 110 mg/dL - High 140 mg/dL * Correction Factor: 30 mg/dL/unit * Nutritional / Prandial insulin per carb ratio of 1 unit per 10 grams CHO consumed * Overnight checks with same parameters at 00,04
[2022-01-04 15:19] LABS: Influenza A virus by PCR Negative (Neg); Influenza B virus by PCR Negative (Neg); RSV by PCR Negative (Neg); SARS CoV2 RNA(COVID-19) InHosp NEGATIVE (Negative)
[2022-01-04] MEDS: DOXYCYCLINE HYCLATE 100 MG CAP PO SCH (16:53)
[2022-01-04] MEDS ORDERED: MAGNESIUM SULFATE / D5W 1 GM/100 ML BAG IV ONE (17:00)
[2022-01-04] MEDS: SIMVASTATIN 40 MG TAB PO SCH (20:12)
[2022-01-04] MEDS: traZODone HCL 50 MG TAB PO SCH (20:12)
[2022-01-04] MEDS ORDERED: SODIUM CHLORIDE 0.9% 1000ML 1,000 ML IV ONE (21:25)
[2022-01-04] MEDS ORDERED: AMIODARONE / D5W 150 MG/100 ML BAG IV STA (21:26)
[2022-01-04] MEDS ORDERED: 0.2 MICRON FILTER SET 1 EA IV ONE (21:26)
[2022-01-04] MEDS ORDERED: STAT IV Infusion **Titration per Protocol STA (21:26)
[2022-01-04] MEDS ORDERED: AMIODARONE IV BOLUS & DRIP IV STA (21:26)
--- NOTE | 2022-01-04 21:26 | Communication Note ---
Date of Service: January 04, 2022 Patient noted to be tachycardic, heart rate 1 50-1 60s, SBP 70s as per RN. SVT on the monitor briefly as per RN. Patient unable to express symptoms secondary to intellectual disability. AP Hypotension secondary to SVT IVF bolus Amiodarone infusion TTE, Cardiology consult Re: SVT Will relay to AM provider.
[2022-01-04] MEDS ORDERED: AMIODARONE / D5W 360 MG/200 ML BAG IV ONE (21:37)
[2022-01-04] MEDS: MAGNESIUM SULFATE / D5W 1 GM/100 ML BAG IV SCH (22:39)
[2022-01-05] MEDS: MAGNESIUM SULFATE / D5W 1 GM/100 ML BAG IV SCH (00:35)
[2022-01-05] MEDS ORDERED: SODIUM CHLORIDE 0.9% 1000ML 1,000 ML IV ONE (01:09)
[2022-01-05] MEDS ORDERED: INSULIN ASPART PER UNIT SC SCH ×2 (02:00)
[2022-01-05] MEDS: AMIODARONE / D5W 360 MG/200 ML BAG IV SCH ×2 (03:01→14:57)
[2022-01-05] MEDS: PIPERACILLIN/TAZOBACTAM 3.375 GM in DEXTROSE 5% 100 ML IV SCH ×3 (04:49→20:19)
[2022-01-05] MEDS: DOXYCYCLINE HYCLATE 100 MG CAP PO SCH ×2 (05:44→17:25)
[2022-01-05 06:59] LABS: Basophils # (auto) 0.01 K/uL (0-0.2); Basophils % (auto) 0.1 %; Eosinophils # (auto) 0.06 K/uL (0-0.5); Eosinophils % (auto) 0.8 %; Hematocrit (blood only) 29.6 % (42-52); Hemoglobin 9.1 g/dL (14.0-18.0); Immature Granulocytes # (auto) 0.03 K/uL (0.00-0.02); Immature Granulocytes % (auto) 0.4 %; Lymphocytes # (auto) 0.74 K/uL (1.2-3.4); Lymphocytes % (auto) 10.2 %; Mean Corpuscular Hemoglobin 32.9 pg (25-34); Mean Corpuscular Hgb Conc 30.7 g/dL (32-36); Mean Corpuscular Volume 106.9 fL (80-100); Mean Platelet Volume 10.8 fL (7.4-10.4); Monocytes # (auto) 0.33 K/uL (0.11-0.59); Monocytes % (auto) 4.6 %; Neutrophils # (auto) 6.08 K/uL (1.4-6.5); Neutrophils % (auto) 83.9 %; Platelet Count 151 K/uL (130-400); RDW Coefficient of Variation 14.9 % (11.5-14.5); RDW Standard Deviation 57.9 fL (36.4-46.3); Red Blood Count 2.77 M/uL (4.7-6.1); White Blood Count 7.25 K/uL (4.8-10.8)
[2022-01-05 07:27] LABS: Calcium 7.6 mg/dl (8.5-10.1); Est GFR (Non-African American) 112.1 ml/min; Magnesium 1.9 mg/dl (1.7-2.4); Potassium 4.2 mmol/L (3.5-5.1)
--- NOTE | 2022-01-05 08:09 | Electrocardiogram Report ---
Test Reason : Blood Pressure : / mmHG Vent. Rate : 081 BPM Atrial Rate : 081 BPM P-R Int : 156 ms QRS Dur : 068 ms QT Int : 364 ms P-R-T Axes : 023 -04 075 degrees QTc Int : 422 ms Sinus rhythm with Premature atrial complexes with Aberrant conduction Diffuse Minor Nonspecific T wave abnormality Abnormal ECG When compared with ECG of 04-JAN-2022 04:56, Aberrant conduction is now Present Nonspecific T wave abnormality now present Confirmed by Bro Prather ([id number]) on 01/05/2022 8:09:23 AM Referred By: REFERRED SELF Confirmed By:Bro Prather
[2022-01-05] MEDS: INSULIN ASPART PER UNIT SC SCH ×4 (08:11→21:54)
--- NOTE | 2022-01-05 08:11 | Electrocardiogram Report ---
Test Reason : Blood Pressure : / mmHG Vent. Rate : 115 BPM Atrial Rate : 082 BPM P-R Int : 000 ms QRS Dur : 112 ms QT Int : 362 ms P-R-T Axes : 000 -25 025 degrees QTc Int : 500 ms Atrial fibrillation with rapid ventricular response with premature ventricular or aberrantly conducte d complexes Incomplete right bundle branch block Diffuse Minor Nonspecific T wave abnormality Abnormal ECG When compared with ECG of 04-JAN-2022 16:26, Atrial fibrillation has replaced Sinus rhythm HR has increased 34 bpm Incomplete right bundle branch block is now Present Confirmed by Bro Prather ([id number]) on 01/05/2022 8:11:14 AM Referred By: REFERRED SELF Confirmed By:Bro Prather
[2022-01-05] MEDS: METOCLOPRAMIDE HCL 5 MG TABLET PO SCH ×4 (08:17→20:32)
[2022-01-05] MEDS: ARTIFICIAL TEARS OPB SCH ×4 (08:18→20:31)
[2022-01-05] MEDS: UMECLIDINIUM BROMIDE 62.5MCG/BLISTER 7 PUFFS/INHALER INH SCH (08:19)
[2022-01-05] MEDS: PENTOXIFYLLINE 400MG EXT REL TAB PO SCH ×3 (08:21→20:33)
[2022-01-05] MEDS: MULTIVITAMIN TAB PO SCH (08:21)
[2022-01-05] MEDS: CHOLECALCIFEROL 1,000 UNITS 25 MCG TAB PO SCH (08:21)
[2022-01-05] MEDS: MAGNESIUM OXIDE 400 MG TAB PO SCH ×2 (08:21→20:32)
[2022-01-05] MEDS: risperiDONE 2 MG TABLET PO SCH ×2 (08:21→20:33)
[2022-01-05] MEDS: ESCITALOPRAM OXALATE 20 MG TAB PO SCH (08:21)
[2022-01-05] MEDS: LORATADINE 10 MG TAB PO SCH (08:21)
--- NOTE | 2022-01-05 08:21 | Electrocardiogram Report ---
Test Reason : Blood Pressure : / mmHG Vent. Rate : 160 BPM Atrial Rate : 170 BPM P-R Int : 000 ms QRS Dur : 104 ms QT Int : 282 ms P-R-T Axes : 000 -73 037 degrees QTc Int : 460 ms Atrial fibrillation Incomplete right bundle branch block Left anterior fascicular block Abnormal ECG When compared with ECG of 04-JAN-2022 16:27, HR has increased by 45 bpm Left anterior fascicular block is now Present Nonspecific T wave abnormality no longer evident in Anterior leads Confirmed by Bro Prather ([id number]) on 01/05/2022 8:21:45 AM Referred By: REFERRED SELF Confirmed By:Bro Prather
[2022-01-05] MEDS: PANTOprazole 40 MG TAB PO SCH (08:22)
[2022-01-05] MEDS: INSULIN GLARGINE SOLOSTAR 100 UNITS/ML 3 ML PEN SC SCH (08:22)
[2022-01-05] MEDS: ENOXAPARIN INJ 30 MG/0.3 ML SYR SQ SCH (08:22)
[2022-01-05] MEDS: clonazePAM 0.5 MG TAB PO SCH ×2 (08:25→20:32)
--- NOTE | 2022-01-05 08:58 | Cardiology Consultation ---
Date of Consultation January 05, 2022 Assessment & Plan (1) Acute hypoxemic respiratory failure: (2) Pneumonia: (3) Sepsis: (4) Elevated troponin: (5) Anemia: (6) Presence of IVC filter: (7) Intellectual disability: (8) PAF (paroxysmal atrial fibrillation): I would tend to agree with not fully anticoagulating the patient at this time. He has an IVC filter in place. He has an anemia. He also has a low burden of PAF. I would continue with the IV amiodarone at present. Reassess andrea m daily and consider switching him over to a beta-justine. Troponin elevation is most likely a type II. History of Present Illness Attending Physician: Tab Martin MD History of Present Illness This is a 66-year-old male patient who is mentally challenged and admitted from a [facility]. He was admitted with sepsis and pneumonia. The patient has no significant cardiac history according to records. After admission he had atrial fibrillation. He has been on IV amiodarone following that episode and has maintained sinus rhythm. He is currently on DVT prophylaxis with Lovenox He does have anemia which is of concern and obviously he is a risk for long-term an ticoagulation. He does have an IVC filter. He appears comfortable. He is not able to provide any history. It appears that he may have had mild aortic stenosis on a previous echocardiogram. No other significant valvular pathology. Mildly dilated left atrium. LV function was preserved. Allergies Allergy/AdvReac Type Severity Reaction Status Date / Time lactose Allergy Intermediate GI SYMPTOMS Verified 01/03/22 08:18 aspirin Allergy Unknown UNKNOWN Verified 01/03/22 08:06 REACTION cephalexin Allergy Unknown UNKNOWN Verified 01/03/22 08:06 REACTION Cephalosporins Allergy Unknown UNKNOWN Verified 01/03/22 08:18 REACTION Corticosteroids Allergy Unknown UNKNOWN Verified 01/03/22 08:06 (Glucocorticoids) REACTION methylprednisolone Allergy Unknown UNKNOWN Verified 01/03/22 08:06 REACTION shellfish derived Allergy Unknown UNKNOWN Verified 01/03/22 08:18 REACTION Home Medications Medication Instructions Recorded Confirmed Type albuterol sulfate 90 mcg/actuation 2 puff INHALATION Q4H PRN 12/23/18 01/03/22 History aerosol inhaler (ProAir HFA) cholecalciferol (vitamin D3) 25 1,000 unit PO QAM 12/23/18 01/03/22 History mcg (1,000 unit) capsule (Vitamin D3) guaifenesin 600 mg tablet, 600 mg PO Q12H 12/23/18 01/03/22 History extended release 12 hr (Mucinex) loperamide 2 mg tablet (Imodium 2 mg PO UD PRN 12/23/18 01/03/22 History A-D) magnesium oxide 400 mg PO BID 12/23/18 01/03/22 History metoclopramide HCl 5 mg tablet 5 mg PO ACHS 12/23/18 01/03/22 History (Reglan) omeprazole 20 mg tablet,delayed 20 mg PO QAM 12/23/18 01/03/22 History release simvastatin 40 mg tablet (Zocor) 40 mg PO HS 12/23/18 01/03/22 History sitagliptin 100 mg tablet (Januvia) 100 mg PO QAM 12/23/18 01/03/22 History trazodone 50 mg tablet 50 mg PO HS 12/23/18 01/03/22 History loratadine 10 mg tablet (Claritin) 10 mg PO QAM 04/03/20 01/03/22 History pentoxifylline 400 mg 400 mg PO TID 04/03/20 01/03/22 History tablet,extended release umeclidinium 62.5 mcg/actuation 1 inh INHALATION QAM 03/02/21 01/03/22 History blister powder for inhalation (Incruse Ellipta) risperidone 2 mg tablet 2 mg PO BID 03/11/21 01/03/22 History artificial tears(hypromellose) 0.3 1 drp OPB QID 11/09/21 01/03/22 History % eye gel (Systane Gel) guaifenesin 100 mg/5 mL oral 200 mg PO TID PRN 11/09/21 01/03/22 History liquid (Siltussin SA) aluminum-mag hydroxide-simethicone 30 ml PO QPM 11/23/21 01/03/22 History 200 mg-200 mg-20 mg/5 mL oral susp calcium carbonate 500 mg calcium 500 mg PO BID 11/23/21 01/03/22 History (1,250 mg) chewable tablet clonazepam 0.5 mg tablet 0.5 mg PO BID 11/23/21 01/03/22 History glimepiride 4 mg tablet 4 mg PO BID 11/23/21 01/03/22 History multivitamin (Daily-Shaka) 1 tab PO QAM #0 11/23/21 01/03/22 History acetaminophen 650 mg 650 mg PO [facility]HS MDD 3gm/24hr 01/03/22 01/03/22 History tablet,extended release (Arthritis Pain Reliever) escitalopram oxalate 20 mg tablet 20 mg PO QAM 01/03/22 01/03/22 History metformin 500 mg tablet,extended 500 - 1,000 mg PO BIDM 01/03/22 01/03/22 History release 24 hr mupirocin 2 % topical ointment 1 applic TOPICAL BID 01/03/22 01/03/22 History Patient History Medical History Anxiety Aortic stenosis Mild per 09/2021 ECHO CAP (community acquired pneumonia) Cerebral palsy Chronic obstructive pulmonary disease Well controlled > hasnt used res inh for 2 yrs Depression Diabetes mellitus, type 2 DJD (degenerative joint disease) Femoral condyle fracture GERD (gastroesophageal reflux disease) History of COVID-19 Tested positive 09/21/21 [facility] ([facility] Sinus congestion only. no hospitalization. No current problems. Hospital-acquired pneumonia Hyperlipidemia Hypotension Intellectual disability [facility] Neuropathy [place] (obstructive sleep apnea) Per records Osteoporosis Peroneal palsy Presence of IVC filter Placed in 1997 per records PVD (peripheral vascular disease) Scoliosis Tibia fracture TMJ (temporomandibular joint disorder) Venous insufficiency Surgical History History of cholecystectomy History of colonoscopy History of tooth extraction S/P cataract surgery Left and Right Family History Father Coronary heart disease Social History Smoking Status: Unknown if ever smoked Second Hand Exposure: No; Preferred Language: Slovak Communication Ability: Effective Payroll Assistant Required: No Beliefs That Will Affect Care: None marital status: Single Current Living Situation: Personal Care Facility Current Living Situation Comment: [facility] with caregivers How many Children do You have: 0 Feels Safe at Home: Yes Assistive Devices: Oxygen - Continuous Review of Systems Review of Systems: Review of Systems: See HPI for pertinent positives. All other 10 point review of systems are negative. Physical Exam Physical Exam: General: no acute distress and stated age Head: normocephalic, no masses, lesions, tenderness or abnormalities Eyes: conjunctiva are pink and non-injected, sclera clear Neck: supple, no adenopathy, no bruits, normal jugular venous pulse, no hepatojugular reflux Chest: normal shape and normal respiratory effort Lungs: clear to auscultation and percussion Cardiac Exam: - regular rate & rhythm, no murmurs gallops or rubs - normal S1, normal S2 Pulses: 2(+) throughout Abdomen: abdomen soft, non-tender, no abnormal masses and no hepatosplenomegaly Musculoskeletal: no gait disturbance, no joint inflammation, no deforming arthritis Extremities: no edema and no cyanosis Neuro: grossly normal exam Results & Data ([facility]) Vital Signs (Past 12 Hours) Vital Signs Temp Pulse Pulse Resp BP BP Pulse Ox 01/05/22 08:00 72 96 01/05/22 07:33 90/56 L 01/05/22 07:29 36.4 C L 66 16 89/43 L 96 01/05/22 02:41 36.7 C 81 16 103/59 L 95 01/04/22 23:43 95 H 01/04/22 22:32 37.4 C 102 H 16 91/54 L 97 01/04/22 21:22 153 H 88/54 L 94 01/04/22 21:20 162 H 91/46 L 95 01/04/22 21:18 36.8 C 154 H 72/39 L 96 Laboratory Results Laboratory Results - last 24 hr 01/04/22 01/04/22 01/04/22 07:42 07:42 07:42 WBC RBC Hgb Hct MCV MCH MCHC RDW Std Deviation RDW Coeff of Drew Plt Count MPV Immature Gran % (Auto) Neut % (Auto) Lymph % (Auto) Gem % (Auto) Eos % (Auto) Baso % (Auto) Neut # (Auto) Lymph # (Auto) Gem # (Auto) Eos # (Auto) Baso # (Auto) Immature Gran # (Auto) Sodium 136 Potassium 4.1 Chloride 106 Carbon Dioxide 26 Anion Gap 4 BUN 17 Creatinine 0.60 Est Cr Clr Drug Dosing 109.5 Est GFR ( Amer) 120.6 Est GFR (Non-Af Amer) 104.0 BUN/Creatinine Ratio 28.3 H Glucose 168 H POC Glucose Estimat Average Glucose 114 Hemoglobin A1c 5.6 Lactate Calcium 7.9 L Magnesium 1.6 L Procalcitonin TSH 2.234 SARS-CoV-2 (PCR) Influenza Type A (PCR) Influenza Type B (PCR) RSV (RT-PCR) 01/04/22 01/04/22 01/04/22 13:23 13:25 16:37 WBC RBC Hgb Hct MCV MCH MCHC RDW Std Deviation RDW Coeff of Drew Plt Count MPV Immature Gran % (Auto) Neut % (Auto) Lymph % (Auto) Gem % (Auto) Eos % (Auto) Baso % (Auto) Neut # (Auto) Lymph # (Auto) Gem # (Auto) Eos # (Auto) Baso # (Auto) Immature Gran # (Auto) Sodium Potassium Chloride Carbon Dioxide Anion Gap BUN Creatinine Est Cr Clr Drug Dosing Est GFR ( Amer) Est GFR (Non-Af Amer) BUN/Creatinine Ratio Glucose POC Glucose 351 H* 346 H* 110 H Estimat Average Glucose Hemoglobin A1c Lactate Calcium Magnesium Procalcitonin TSH SARS-CoV-2 (PCR) Influenza Type A (PCR) Influenza Type B (PCR) RSV (RT-PCR) 01/04/22 01/04/22 01/04/22 20:31 22:58 Unknown WBC RBC Hgb Hct MCV MCH MCHC RDW Std Deviation RDW Coeff of Drew Plt Count MPV Immature Gran % (Auto) Neut % (Auto) Lymph % (Auto) Gem % (Auto) Eos % (Auto) Baso % (Auto) Neut # (Auto) Lymph # (Auto) Gem # (Auto) Eos # (Auto) Baso # (Auto) Immature Gran # (Auto) Sodium Potassium Chloride Carbon Dioxide Anion Gap BUN Creatinine Est Cr Clr Drug Dosing Est GFR ( Amer) Est GFR (Non-Af Amer) BUN/Creatinine Ratio Glucose POC Glucose 91 Estimat Average Glucose Hemoglobin A1c Lactate 0.8 Calcium Magnesium Procalcitonin TSH SARS-CoV-2 (PCR) NEGATIVE Influenza Type A (PCR) Negative Influenza Type B (PCR) Negative RSV (RT-PCR) Negative 01/05/22 01/05/22 01/05/22 01:27 05:44 05:44 WBC RBC Hgb Hct MCV MCH MCHC RDW Std Deviation RDW Coeff of Drew Plt Count MPV Immature Gran % (Auto) Neut % (Auto) Lymph % (Auto) Gem % (Auto) Eos % (Auto) Baso % (Auto) Neut # (Auto) Lymph # (Auto) Gem # (Auto) Eos # (Auto) Baso # (Auto) Immature Gran # (Auto) Sodium 139 Potassium 4.2 Chloride 109 H Carbon Dioxide 26 Anion Gap 4 BUN 14 Creatinine 0.50 L Est Cr Clr Drug Dosing 133.0 Est GFR ( Amer) 130.0 Est GFR (Non-Af Amer) 112.1 BUN/Creatinine Ratio 28.0 H Glucose 117 H POC Glucose 208 H Estimat Average Glucose Hemoglobin A1c Lactate Calcium 7.6 L Magnesium 1.9 Procalcitonin 27.32 H TSH SARS-CoV-2 (PCR) Influenza Type A (PCR) Influenza Type B (PCR) RSV (RT-PCR) 01/05/22 01/05/22 05:44 07:47 WBC 7.25 RBC 2.77 L Hgb 9.1 L Hct 29.6 L MCV 106.9 H MCH 32.9 MCHC 30.7 L RDW Std Deviation 57.9 H RDW Coeff of Drew 14.9 H Plt Count 151 MPV 10.8 H Immature Gran % (Auto) 0.4 Neut % (Auto) 83.9 Lymph % (Auto) 10.2 Gem % (Auto) 4.6 Eos % (Auto) 0.8 Baso % (Auto) 0.1 Neut # (Auto) 6.08 Lymph # (Auto) 0.74 L Gem # (Auto) 0.33 Eos # (Auto) 0.06 Baso # (Auto) 0.01 Immature Gran # (Auto) 0.03 H Sodium Potassium Chloride Carbon Dioxide Anion Gap BUN Creatinine Est Cr Clr Drug Dosing Est GFR ( Amer) Est GFR (Non-Af Amer) BUN/Creatinine Ratio Glucose POC Glucose 141 H Estimat Average Glucose Hemoglobin A1c Lactate Calcium Magnesium Procalcitonin TSH SARS-CoV-2 (PCR) Influenza Type A (PCR) Influenza Type B (PCR) RSV (RT-PCR) Medications Administered Current Inpatient Medications Acetaminophen (Acetaminophen 325 Mg Tab) 650 mg PO Q4H PRN PRN Reason: Pain or Fever Stop: 02/02/22 10:24 Last Admin: 01/04/22 05:04 Dose: 650 mg Documented by: Artificial Tears (Artificial Tears) 1 drops OPB QID [facility] Stop: 02/02/22 12:59 Last Admin: 01/05/22 08:18 Dose: 1 drops Documented by: Clonazepam (Clonazepam 0.5 Mg Tab) 0.5 mg PO BID [facility] Stop: 02/02/22 20:59 Last Admin: 01/05/22 08:25 Dose: 0.5 mg Documented by: Dextrose (Dextrose 50% 50 Ml Syringe) 25 - 50 ml IV UD PRN; Protocol PRN Reason: Hypoglycemia Protocol Stop: 02/02/22 10:46 Doxycycline Hyclate (Doxycycline Hyclate 100 Mg Cap) 100 mg PO BID@0600,1800 [facility]; Protocol Stop: 01/11/22 14:59 Last Admin: 01/05/22 05:44 Dose: 100 mg Documented by: Enoxaparin Sodium (Enoxaparin Inj 30 Mg/0.3 Ml Syr) 30 mg SQ QAM [facility] Stop: 02/03/22 08:59 Last Admin: 01/05/22 08:22 Dose: 30 mg Documented by: Escitalopram Oxalate (Escitalopram Oxalate 20 Mg Tab) 20 mg PO QAM [facility] Stop: 02/03/22 08:59 Last Admin: 01/05/22 08:21 Dose: 20 mg Documented by: Glucagon (Glucagon For Inj 1 Mg Vial) 1 mg SQ UD PRN; Protocol PRN Reason: Hypoglycemia Protocol Stop: 02/02/22 10:46 Glucose (Glucose 10 Tabs/Tube) 4 - 8 tabs PO UD PRN; Protocol PRN Reason: Hypoglycemia Protocol Stop: 02/02/22 10:46 Glucose (Glucose 40% Gel 15 Gm Tube) 15 - 30 gm PO UD PRN; Protocol PRN Reason: Hypoglycemia Protocol Stop: 02/02/22 10:46 Guaifenesin (Guaifenesin 600 Mg Tabcr) 600 mg PO Q12H [facility] Stop: 02/02/22 11:14 Last Admin: 01/04/22 20:11 Dose: 600 mg Documented by: Piperacillin Sod/Tazobactam (Sod 3.375 gm/ Dextrose) 115 mls @ 28.75 mls/hr IV Q8H [facility]; Protocol Stop: 01/10/22 11:59 Last Admin: 01/05/22 04:49 Dose: 28.8 mls/hr Documented by: Amiodarone HCl/Dextrose (Nexterone / D5w) 360 mg in 200 mls @ 16.667 mls/hr IV .Q12H [facility] Stop: 02/04/22 03:29 Last Infusion: 01/05/22 06:56 Dose: 0.5 mg/min, 16.7 mls/hr Documented by: Sodium Chloride (Nss 1000ml) 1,000 mls @ 100 mls/hr IV .Q10H [facility] Stop: 01/05/22 11:08 Last Admin: 01/05/22 01:15 Dose: 100 mls/hr Documented by: Insulin Aspart (Insulin Aspart Per Unit) 0 units [facility] Stop: 02/02/22 11:29 Last Admin: 01/05/22 08:11 Dose: 10 units Documented by: Insulin Glargine (Insulin Glargine Solostar 100 Units/Ml 3 Ml Pen) 18 units SC DAILY [facility]; Protocol Stop: 02/04/22 08:59 Last Admin: 01/05/22 08:22 Dose: 18 units Documented by: Loratadine ([facility]ine 10 Mg Tab) [facility]: 02/03/22 08:59 Last Admin: 01/05/22 08:21 Dose: 10 mg Documented by: Magnesium Oxide (Magnesium Oxide 400 Mg Tab) 400 mg PO BID [facility] Stop: 02/02/22 20:59 Last Admin: 01/05/22 08:21 Dose: 400 mg Documented by: Metoclopramide HCl (Metoclopramide Hcl 5 Mg Tablet) 5 mg PO [facility] Stop: 02/02/22 11:29 Last Admin: 01/05/22 08:17 Dose: 5 mg Documented by: Miscellaneous (Carbohydrates For Hypoglycemia ) 15 - 30 gm PO UD PRN PRN Reason: Hypoglycemia Protocol Stop: 02/02/22 10:46 Miscellaneous Information (Piperacill/Tazobac Consult Active) 1 ea N/A UD PRN PRN Reason: Consult Stop: 02/02/22 06:52 Miscellaneous Information (Pharmacy Glycemic Mgmt Consult) 1 ea N/A UD PRN PRN Reason: Consult Stop: 02/03/22 13:33 Multivitamins (Multivitamin Tab) 1 tab PO QAM [facility] Stop: 02/03/22 08:59 Last Admin: 01/05/22 08:21 Dose: 1 tab Documented by: Nitroglycerin (Nitroglycerin Sl 0.4 Mg/Tab Tab) 0.4 mg SL UD PRN PRN Reason: Chest Pain Stop: 02/02/22 10:24 Pantoprazole Sodium (Pantoprazole 40 Mg Tab) 40 mg PO QAM [facility] Stop: 02/03/22 08:59 Last Admin: 01/05/22 08:22 Dose: 40 mg Documented by: Pentoxifylline (Pentoxifylline 400mg Ext Rel Tab) 400 mg PO TID [facility] Stop: 02/02/22 13:59 Last Admin: 01/05/22 08:21 Dose: 400 mg Documented by: Risperidone (Risperidone 2 Mg Tablet) 2 mg PO BID [facility] Stop: 02/02/22 20:59 Last Admin: 01/05/22 08:21 Dose: 2 mg Documented by: Simvastatin (Simvastatin 20 Mg Tab) 20 mg [address] [facility] Stop: 02/04/22 20:59 Trazodone HCl (Trazodone Hcl 50 Mg Tab) 50 mg [address] [facility] Stop: 02/02/22 20:59 Last Admin: 01/04/22 20:12 Dose: 50 mg Documented by: Umeclidinium Chappells (Umeclidinium Chappells 62.5mcg/Blister 7 Puffs/Inhaler) 1 puffs INH [facility] Stop: 02/03/22 08:59 Last Admin: 01/05/22 08:19 Dose: 1 puffs Documented by: Vitamin D (Cholecalciferol 1,000 Units 25 Mcg Tab) 1,000 units PO [facility] Stop: 02/03/22 08:59 Last Admin: 01/05/22 08:21 Dose: 1,000 units Documented by: (1) Anemia Anemia type: unspecified type Qualified Code(s): D64.9 - Anemia, unspecified (2) Sepsis Acute respiratory failure type: with hypoxia Sepsis acute organ dysfunction status: with acute organ dysfunction Sepsis type: sepsis due to unspecified organism Severe sepsis acute organ dysfunction type: acute respiratory failure Severe sepsis shock status: unspecified Qualified Code(s): A41.9 - Sepsis, unspecified organism; R65.20 - Severe sepsis without septic shock; J96.01 - Acute respiratory failure with hypoxia (3) Pneumonia Laterality: left Lung location: unspecified part of lung Pneumonia type: due to unspecified organism Qualified Code(s): J18.9 - Pneumonia, unspecified organism
--- NOTE | 2022-01-05 10:55 | Pharmacy Report ---
Pharmacy Glycemic Short Note 2 - Date of Service January 05, 2022 - Glycemic Short BSG Results (Last 24 hours): 01/04/22 01/04/22 01/04/22 13:23 13:25 16:37 Glucose POC Glucose 351 H* 346 H* 110 H 01/04/22 01/05/22 01/05/22 20:31 01:27 05:44 Glucose 117 H POC Glucose 91 208 H 01/05/22 07:47 Glucose POC Glucose 141 H OUTPATIENT ANTIDIABETIC REGIMEN: * Metformin 1000 mg PO qAM, 500 mg PO qPM * Januvia 100 mg PO daily * Glimepiride 4 mg PO BID * HbA1c: 5.6% (01/04/22) ASSESSMENT: 01/05/22 * Patient received 37 units of insulin yesterday, 15 units basal, fasting blood sugar 141mg/dl after 3 units of correctional for BSG 208mg/dl overnight * Increase basal slightly, continue CF/CR, pt sensitive to insulin 01/04/22 * BC is a 66 year old male admitted on 01/03/22 with sepsis secondary to suspected multifocal pneumonia * Pharmacy consulted for glycemic management due to lunch BSG of 346 mg/dL * Patient has excellent HbA1c on three oral medications * Will be slightly conservative with initial insulin dosing PLAN FOR INPATIENT GLYCEMIC CONTROL: * Hold outpatient oral diabetes medications * Basal insulin * Lantus 18 units SQ daily * Bolus insulin * NovoLog per scale ACHS or Q6hrs while NPO * Goal Range: Low 110 mg/dL - High 140 mg/dL * Correction Factor: 30 mg/dL/unit * Nutritional / Prandial insulin per carb ratio of 1 unit per 10 grams CHO consumed
[2022-01-05] MEDS: guaiFENesin 600 MG TABCR PO SCH ×2 (12:25→21:54)
--- NOTE | 2022-01-05 15:36 | Hospitalist Progress Note ---
Date of Service January 05, 2022 Assessment & Plan (1) Sepsis: Plan: Sepsis Multifocal pneumonia --CXR:Large alveolar opacity within the left mid to lower lung most characteristic of pneumonia. --COVID, Influenza, RSV negative --Blood Culture:Negative to date Lactic acid levels normalized with IV fluids Procalcitonin 12.42 MRSA Negative Continue vancomycin, Zosyn>>Transitioned to Doxy, Zosyn Blood Cultures: Negative to date Received IV fluids Aspiration precautions Wean off of supplemental oxygen as able Currently on 1 L supplemental Oxygen Paroxysmal atrial fibrillation Continue Amiodarone ggt Plan to transition to Metoprolol when BP more stable Appreciate Cardiology Input Patient has IVC filter No full anticoagulation as recommended by Cardiology (2) Pneumonia: (3) Elevated troponin: Plan: Likely demand ischemia secondary to above Troponin trended down (4) Decubital ulcer: Plan: Stage II decubitus ulcer Continue wound care Needs follow-up with wound care clinic upon discharge (5) Acute hypoxemic respiratory failure: Plan: Management as above (6) Chronic obstructive pulmonary disease: Plan: No signs of exacerbation Continue home inhalers (7) Diabetes mellitus, type 2: Plan: Hold p.o. medications Continue insulin treatment Glycemic pharmacy consulted to help with glycemic management Hypomagnesemia Replace electrolytes as needed (8) GERD (gastroesophageal reflux disease): Plan: Continue PPI (9) Intellectual disability: Plan: On risperidone, escitalopram (10) PVD (peripheral vascular disease): Plan: DVT Px: Lovenox SQ Code Status: Full Code Admission and Anticipated Discharge Date Admission Date: January 03, 2022 Subjective Patient is seen and examined at bedside Poor historian secondary to intellectual disability Currently on IV Amiodarone Discussed with Cardiology today Afebrile Sleepy during my encounter Review of Systems Review of Systems: Unobtainable due to cognitive status Physical Exam Physical Exam: Physical Exam: Vitals signs as noted above General Appearance:Thin, frail, chronic ill appearing, no apparent distress Head: normocephalic, Atraumatic Eyes: normal inspection, EOMI Neck: supple, Trachea midline Respiratory/Chest: Normal breath sounds, L basal crackles, No accessory muscle use Cardiovascular: S1, S2, + murmur Abdomen/GI:Soft, Non tender, Bowel sounds present Extremities/Musculoskeletal:normal inspection, Trace edema, + chronic venous stasis changes, stage 2 sacral ulcer Neurologic/Psych:grossly no focal neurological deficits, + Intellectual disability Skin: normal color, warm Results & Data Results & [facility] Vital Signs (Past 12 Hours) Vital Signs Temp Pulse Pulse Resp BP BP Pulse Ox 01/05/22 14:00 20 95 01/05/22 12:00 20 95 01/05/22 11:45 36.7 C 78 20 91/54 L 95 01/05/22 10:00 16 96 01/05/22 08:00 72 96 01/05/22 07:33 90/56 L 01/05/22 07:29 36.4 C L 66 16 89/43 L 96 Laboratory Results Short CBC 01/05/22 Range/Units 05:44 WBC 7.25 (4.8-10.8) K/uL Hgb 9.1 L (14.0-18.0) g/dL Hct 29.6 L (42-52) % Plt Count 151 (130-400) K/uL BMP 01/05/22 05:44 Sodium 139 Potassium 4.2 Chloride 109 H Carbon Dioxide 26 BUN 14 Creatinine 0.50 L Glucose 117 H Calcium 7.6 L (1) Sepsis Acute respiratory failure type: with hypoxia Sepsis acute organ dysfunction status: with acute organ dysfunction Sepsis type: sepsis due to unspecified organism Severe sepsis acute organ dysfunction type: acute respiratory failure Severe sepsis shock status: unspecified Qualified Code(s): A41.9 - Sepsis, unspecified organism; R65.20 - Severe sepsis without septic shock; J96.01 - Acute respiratory failure with hypoxia (2) Pneumonia Laterality: left Lung location: unspecified part of lung Pneumonia type: due to unspecified organism Qualified Code(s): J18.9 - Pneumonia, unspecified organism (3) Decubital ulcer Pressure injury location: sacral region Pressure injury stage: stage 2 Qualified Code(s): L89.152 - Pressure ulcer of sacral region, stage 2
[2022-01-05] MEDS: ACETAMINOPHEN 325 MG TAB PO PRN (20:27)
[2022-01-05] MEDS: SIMVASTATIN 20 MG TAB PO SCH (20:33)
[2022-01-05] MEDS: traZODone HCL 50 MG TAB PO SCH (20:34)
[2022-01-06] MEDS: AMIODARONE / D5W 360 MG/200 ML BAG IV SCH (03:39)
[2022-01-06] MEDS: PIPERACILLIN/TAZOBACTAM 3.375 GM in DEXTROSE 5% 100 ML IV SCH ×3 (04:50→20:56)
[2022-01-06] MEDS: DOXYCYCLINE HYCLATE 100 MG CAP PO SCH ×2 (05:36→17:15)
[2022-01-06 06:34] LABS: Hematocrit (blood only) 29.4 % (42-52); Mean Corpuscular Hemoglobin 32.5 pg (25-34); Mean Corpuscular Hgb Conc 30.6 g/dL (32-36); Mean Corpuscular Volume 106.1 fL (80-100); Mean Platelet Volume 9.9 fL (7.4-10.4); Platelet Count 158 K/uL (130-400); RDW Coefficient of Variation 14.9 % (11.5-14.5); RDW Standard Deviation 58.1 fL (36.4-46.3); Red Blood Count 2.77 M/uL (4.7-6.1); White Blood Count 5.28 K/uL (4.8-10.8)
[2022-01-06 07:12] LABS: Calcium 8.9 mg/dl (8.5-10.1); Creatinine Clr Calc Pharmacy 137.8 ml/min; Est GFR (African American) 127.9 ml/min; Est GFR (Non-African American) 110.3 ml/min; Magnesium 1.4 mg/dl (1.7-2.4); Potassium 4.4 mmol/L (3.5-5.1)
[2022-01-06] MEDS: METOCLOPRAMIDE HCL 5 MG TABLET PO SCH ×4 (07:19→20:52)
[2022-01-06] MEDS: INSULIN ASPART PER UNIT SC SCH ×4 (08:04→20:51)
[2022-01-06] MEDS: INSULIN GLARGINE SOLOSTAR 100 UNITS/ML 3 ML PEN SC SCH (08:05)
[2022-01-06] MEDS: LORATADINE 10 MG TAB PO SCH (08:38)
[2022-01-06] MEDS: clonazePAM 0.5 MG TAB PO SCH ×2 (08:38→20:50)
[2022-01-06] MEDS: ENOXAPARIN INJ 30 MG/0.3 ML SYR SQ SCH (08:38)
[2022-01-06] MEDS: ESCITALOPRAM OXALATE 20 MG TAB PO SCH (08:38)
[2022-01-06] MEDS: CHOLECALCIFEROL 1,000 UNITS 25 MCG TAB PO SCH (08:38)
[2022-01-06] MEDS: PENTOXIFYLLINE 400MG EXT REL TAB PO SCH ×3 (08:39→20:53)
[2022-01-06] MEDS: MAGNESIUM OXIDE 400 MG TAB PO SCH ×2 (08:39→21:41)
[2022-01-06] MEDS: MULTIVITAMIN TAB PO SCH (08:39)
[2022-01-06] MEDS: ARTIFICIAL TEARS OPB SCH ×4 (08:39→20:50)
[2022-01-06] MEDS: PANTOprazole 40 MG TAB PO SCH (08:39)
[2022-01-06] MEDS: UMECLIDINIUM BROMIDE 62.5MCG/BLISTER 7 PUFFS/INHALER INH SCH (08:40)
[2022-01-06] MEDS: risperiDONE 2 MG TABLET PO SCH ×2 (08:40→21:41)
[2022-01-06] MEDS ORDERED: MAGNESIUM SULFATE / D5W 1 GM/100 ML BAG IV ONE (09:00)
--- NOTE | 2022-01-06 11:21 | Cardiology Progress Note ---
Date of Service January 06, 2022 Assessment & Plan (1) Acute hypoxemic respiratory failure: (2) Pneumonia: (3) Sepsis: (4) Elevated troponin: (5) Anemia: (6) Presence of IVC filter: (7) Intellectual disability: (8) PAF (paroxysmal atrial fibrillation): Plan: The patient is clinically stable and I believe doing better. I reviewed his entire telemetry this morning. When he presented with his acute pneumonia and sepsis he was having a SVT which is most likely PAF. The patient was started on amiodarone and spontaneously converted to normal sinus rhythm. Now that his pneumonia has been treated and he is improving he has not had any additional atrial arrhythmias and has maintained sinus rhythm. I think it is reasonable to stop the amiodarone infusion. I would continue the telemetry. If he develops atrial fibrillation with RVR again then the amiodarone can be restarted and/or the patient can be treated with a beta-justine. Admission and Anticipated Discharge Date Admission Date: January 03, 2022 Subjective The patient appears to be alert and in no acute distress Review of Systems Review of Systems: Not obtainable Physical Exam Physical Exam: General: no acute distress and stated age Head: normocephalic, no masses, lesions, tenderness or abnormalities Eyes: conjunctiva are pink and non-injected, sclera clear Neck: supple, no adenopathy, no bruits, normal jugular venous pulse, no hepatojugular reflux Chest: normal shape and normal respiratory effort Lungs: clear to auscultation and percussion Cardiac Exam: - regular rate & rhythm, no murmurs gallops or rubs - normal S1, normal S2 Pulses: 2(+) throughout Abdomen: abdomen soft, non-tender, no abnormal masses and no hepatosplenomegaly Musculoskeletal: no gait disturbance, no joint inflammation, no deforming arthritis Extremities: no edema and no cyanosis Neuro: grossly normal exam Results & Data ([facility]) Vital Signs (Past 12 Hours) Vital Signs Temp Pulse Pulse Resp BP Pulse Ox 01/06/22 08:00 36.6 C 73 18 102/67 91 01/06/22 07:00 16 91 01/06/22 05:23 36.6 C 70 16 91/53 L 91 01/05/22 23:59 65 01/05/22 23:23 36.7 C 67 16 85/45 L 90 Laboratory Results Laboratory Results - last 24 hr 01/05/22 01/05/22 01/05/22 11:19 16:14 20:49 WBC RBC Hgb Hct MCV MCH MCHC RDW Std Deviation RDW Coeff of Drew Plt Count MPV Sodium Potassium Chloride Carbon Dioxide Anion Gap BUN Creatinine Est Cr Clr Drug Dosing Est GFR ( Amer) Est GFR (Non-Af Amer) BUN/Creatinine Ratio Glucose POC Glucose 185 H 71 150 H Calcium Magnesium 01/06/22 01/06/22 01/06/22 06:12 06:12 07:37 WBC 5.28 RBC 2.77 L Hgb 9.0 L Hct 29.4 L MCV 106.1 H MCH 32.5 MCHC 30.6 L RDW Std Deviation 58.1 H RDW Coeff of Drew 14.9 H Plt Count 158 MPV 9.9 Sodium 140 Potassium 4.4 Chloride 106 Carbon Dioxide 28 Anion Gap 6 BUN 13 Creatinine 0.52 L Est Cr Clr Drug Dosing 137.8 Est GFR ( Amer) 127.9 Est GFR (Non-Af Amer) 110.3 BUN/Creatinine Ratio 25.0 H Glucose 143 H POC Glucose 208 H Calcium 8.9 Magnesium 1.4 L 01/06/22 11:16 WBC RBC Hgb Hct MCV MCH MCHC RDW Std Deviation RDW Coeff of Drew Plt Count MPV Sodium Potassium Chloride Carbon Dioxide Anion Gap BUN Creatinine Est Cr Clr Drug Dosing Est GFR ( Amer) Est GFR (Non-Af Amer) BUN/Creatinine Ratio Glucose POC Glucose 109 H Calcium Magnesium Medications Administered Current Inpatient Medications Acetaminophen (Acetaminophen 325 Mg Tab) 650 mg PO Q4H PRN PRN Reason: Pain or Fever Stop: 02/02/22 10:24 Last Admin: 01/05/22 20:27 Dose: 650 mg Documented by: Artificial Tears (Artificial Tears) 1 drops OPB QID [facility] Stop: 02/02/22 12:59 Last Admin: 01/06/22 08:39 Dose: 1 drops Documented by: Clonazepam (Clonazepam 0.5 Mg Tab) 0.5 mg PO BID [facility] Stop: 02/02/22 20:59 Last Admin: 01/06/22 08:38 Dose: 0.5 mg Documented by: Dextrose (Dextrose 50% 50 Ml Syringe) 25 - 50 ml IV UD PRN; Protocol PRN Reason: Hypoglycemia Protocol Stop: 02/02/22 10:46 Doxycycline Hyclate (Doxycycline Hyclate 100 Mg Cap) 100 mg PO BID@0600,1800 [facility]; Protocol Stop: 01/11/22 14:59 Last Admin: 01/06/22 05:36 Dose: 100 mg Documented by: Enoxaparin Sodium (Enoxaparin Inj 30 Mg/0.3 Ml Syr) 30 mg SQ QAM [facility] Stop: 02/03/22 08:59 Last Admin: 01/06/22 08:38 Dose: 30 mg Documented by: Escitalopram Oxalate (Escitalopram Oxalate 20 Mg Tab) 20 mg PO QAM [facility] Stop: 02/03/22 08:59 Last Admin: 01/06/22 08:38 Dose: 20 mg Documented by: Glucagon (Glucagon For Inj 1 Mg Vial) 1 mg SQ UD PRN; Protocol PRN Reason: Hypoglycemia Protocol Stop: 02/02/22 10:46 Glucose (Glucose 10 Tabs/Tube) 4 - 8 tabs PO UD PRN; Protocol PRN Reason: Hypoglycemia Protocol Stop: 02/02/22 10:46 Glucose (Glucose 40% Gel 15 Gm Tube) 15 - 30 gm PO UD PRN; Protocol PRN Reason: Hypoglycemia Protocol Stop: 02/02/22 10:46 Guaifenesin (Guaifenesin 600 Mg Tabcr) 600 mg PO Q12H [facility] Stop: 02/02/22 11:14 Last Admin: 01/05/22 21:54 Dose: 600 mg Documented by: Piperacillin Sod/Tazobactam (Sod 3.375 gm/ Dextrose) 115 mls @ 28.75 mls/hr IV Q8H [facility]; Protocol Stop: 01/10/22 11:59 Last Infusion: 01/06/22 08:53 Dose: Infused Documented by: Insulin Aspart (Insulin Aspart Per Unit) 0 units SC ACHS [facility] Stop: 02/02/22 11:29 Last Admin: 01/06/22 08:04 Dose: 13 units Documented by: Insulin Glargine (Insulin Glargine Solostar 100 Units/Ml 3 Ml Pen) 18 units SC DAILY [facility]; Protocol Stop: 02/04/22 08:59 Last Admin: 01/06/22 08:05 Dose: 18 units Documented by: Loratadine (Loratadine 10 Mg Tab) 10 mg PO QAM [facility] Stop: 02/03/22 08:59 Last Admin: 03/13/22 08:38 Dose: 10 mg Documented by: Magnesium Oxide (Magnesium Oxide 400 Mg Tab) 400 mg PO BID [facility] Stop: 02/02/22 20:59 Last Admin: 01/06/22 08:39 Dose: 400 mg Documented by: Metoclopramide HCl (Metoclopramide Hcl 5 Mg Tablet) 5 mg PO ACHS [facility] Stop: 02/02/22 11:29 Last Admin: 01/06/22 07:19 Dose: 5 mg Documented by: Miscellaneous (Carbohydrates For Hypoglycemia ) 15 - 30 gm PO UD PRN PRN Reason: Hypoglycemia Protocol Stop: 02/02/22 10:46 Miscellaneous Information (Piperacill/Tazobac Consult Active) 1 ea N/A UD PRN PRN Reason: Consult Stop: 02/02/22 06:52 Miscellaneous Information (Pharmacy Glycemic Mgmt Consult) 1 ea N/A UD PRN PRN Reason: Consult Stop: 02/03/22 13:33 Multivitamins (Multivitamin Tab) 1 tab PO QAM [facility] Stop: 02/03/22 08:59 Last Admin: 01/06/22 08:39 Dose: 1 tab Documented by: Nitroglycerin (Nitroglycerin Sl 0.4 Mg/Tab Tab) 0.4 mg SL UD PRN PRN Reason: Chest Pain Stop: 02/02/22 10:24 Pantoprazole Sodium (Pantoprazole 40 Mg Tab) 40 mg PO QAM [facility] Stop: 02/03/22 08:59 Last Admin: 01/06/22 08:39 Dose: 40 mg Documented by: Pentoxifylline (Pentoxifylline 400mg Ext Rel Tab) 400 mg PO TID [facility] Stop: 02/02/22 13:59 Last Admin: 01/06/22 08:39 Dose: 400 mg Documented by: Risperidone (Risperidone 2 Mg Tablet) 2 mg PO BID [facility] Stop: 02/02/22 20:59 Last Admin: 01/06/22 08:40 Dose: 2 mg Documented by: Simvastatin (Simvastatin 20 Mg Tab) 20 mg PO HS [facility] Stop: 02/04/22 20:59 Last Admin: 01/05/22 20:33 Dose: 20 mg Documented by: Trazodone HCl (Trazodone Hcl 50 Mg Tab) 50 mg PO [facility] Stop: 04/09/22 20:59 Last Admin: 01/05/22 20:34 Dose: 50 mg Documented by: Umeclidinium [place] (Umeclidinium [place] 62.5mcg/Blister 7 Puffs/Inhaler) 1 puffs INH QAM [facility] Stop: 02/03/22 08:59 Last Admin: 01/06/22 08:40 Dose: 1 puffs Documented by: Vitamin D (Cholecalciferol 1,000 Units 25 Mcg Tab) 1,000 units PO QAM [facility] Stop: 02/03/22 08:59 Last Admin: 01/06/22 08:38 Dose: 1,000 units Documented by: (1) Anemia Anemia type: unspecified type Qualified Code(s): D64.9 - Anemia, unspecified (2) Sepsis Acute respiratory failure type: with hypoxia Sepsis acute organ dysfunction status: with acute organ dysfunction Sepsis type: sepsis due to unspecified organism Severe sepsis acute organ dysfunction type: acute respiratory failure Severe sepsis shock status: unspecified Qualified Code(s): A41.9 - Sepsis, unspecified organism; R65.20 - Severe sepsis without septic shock; J96.01 - Acute respiratory failure with hypoxia (3) Pneumonia Laterality: left Lung location: unspecified part of lung Pneumonia type: due to unspecified organism Qualified Code(s): J18.9 - Pneumonia, unspecified organism
[2022-01-06] MEDS: guaiFENesin 600 MG TABCR PO SCH (12:20)
--- NOTE | 2022-01-06 16:18 | Hospitalist Progress Note ---
Date of Service January 06, 2022 Assessment & Plan (1) Sepsis: Plan: Sepsis Multifocal pneumonia --CXR:Large alveolar opacity within the left mid to lower lung most characteristic of pneumonia. --COVID, Influenza, RSV negative --Blood Culture:Negative to date Lactic acid levels normalized with IV fluids Procalcitonin 12.42 MRSA Negative Continue vancomycin, Zosyn>>Transitioned to Doxy, Zosyn Blood Cultures: Negative to date Received IV fluids Aspiration precautions Wean off of supplemental oxygen as able Still on 1 L supplemental Oxygen Slowly improving Paroxysmal atrial fibrillation Amiodarone ggt discontinued Appreciate Cardiology Input Patient has IVC filter No full anticoagulation as recommended by Cardiology Spontaneously converted to Sinus (2) Pneumonia: (3) Elevated troponin: Plan: Likely demand ischemia secondary to above Troponin trended down (4) Decubital ulcer: Plan: Stage II decubitus ulcer Continue wound care Needs follow-up with wound care clinic upon discharge (5) Acute hypoxemic respiratory failure: Plan: Management as above (6) Chronic obstructive pulmonary disease: Plan: No signs of exacerbation Continue home inhalers (7) Diabetes mellitus, type 2: Plan: Hold p.o. medications Continue insulin treatment Glycemic pharmacy consulted to help with glycemic management Hypomagnesemia Replace electrolytes as needed (8) GERD (gastroesophageal reflux disease): Plan: Continue PPI (9) Intellectual disability: Plan: On risperidone, escitalopram (10) PVD (peripheral vascular disease): Plan: DVT Px: Lovenox SQ Code Status: Full Code Admission and Anticipated Discharge Date Admission Date: January 03, 2022 Subjective Patient is seen and examined at bedside Poor historian secondary to intellectual disability Spontaneously converted to sinus yesterday Pleasant during my encounter Review of Systems Review of Systems: Unobtainable due to cognitive status Physical Exam Physical Exam: Physical Exam: Vitals signs as noted above General Appearance:Thin, frail, chronic ill appearing, no apparent distress Head: normocephalic, Atraumatic Eyes: normal inspection, EOMI Neck: supple, Trachea midline Respiratory/Chest: Normal breath sounds, L basal crackles improving, No accessory muscle use Cardiovascular: S1, S2, + murmur Abdomen/GI:Soft, Non tender, Bowel sounds present Extremities/Musculoskeletal:normal inspection, Trace edema, + chronic venous stasis changes, stage 2 sacral ulcer Neurologic/Psych:grossly no focal neurological deficits, + Intellectual disability Skin: normal color, warm Results & Data Results & Data ([facility]) Vital Signs (Past 12 Hours) Vital Signs Temp Pulse Pulse Resp BP Pulse Ox 01/06/22 15:38 36.5 C 74 20 104/62 95 01/06/22 15:00 18 95 01/06/22 14:45 70 01/06/22 13:00 18 96 01/06/22 11:30 37.0 C 66 18 107/58 L 96 01/06/22 11:21 75 01/06/22 11:00 18 91 01/06/22 09:00 16 91 01/06/22 08:00 36.6 C 73 18 102/67 91 01/06/22 07:00 16 91 01/06/22 05:23 36.6 C 70 16 91/53 L 91 Laboratory Results Short CBC 01/06/22 Range/Units 06:12 WBC 5.28 (4.8-10.8) K/uL Hgb 9.0 L (14.0-18.0) g/dL Hct 29.4 L (42-52) % Plt Count 158 (130-400) K/uL BMP 01/06/22 06:12 Sodium 140 Potassium 4.4 Chloride 106 Carbon Dioxide 28 BUN 13 Creatinine 0.52 L Glucose 143 H Calcium 8.9 (1) Sepsis Acute respiratory failure type: with hypoxia Sepsis acute organ dysfunction status: with acute organ dysfunction Sepsis type: sepsis due to unspecified organism Severe sepsis acute organ dysfunction type: acute respiratory failure Severe sepsis shock status: unspecified Qualified Code(s): A41.9 - Sepsis, unspecified organism; R65.20 - Severe sepsis without septic shock; J96.01 - Acute respiratory failure with hypoxia (2) Pneumonia Laterality: left Lung location: unspecified part of lung Pneumonia type: due to unspecified organism Qualified Code(s): J18.9 - Pneumonia, unspecified organism (3) Decubital ulcer Pressure injury location: sacral region Pressure injury stage: stage 2 Qualified Code(s): L89.152 - Pressure ulcer of sacral region, stage 2
[2022-01-06] MEDS: traZODone HCL 50 MG TAB PO SCH (20:52)
[2022-01-06] MEDS: SIMVASTATIN 20 MG TAB PO SCH (21:41)
[2022-01-07] MEDS: guaiFENesin 600 MG TABCR PO SCH ×3 (01:16→20:13)
[2022-01-07] MEDS: PIPERACILLIN/TAZOBACTAM 3.375 GM in DEXTROSE 5% 100 ML IV SCH ×3 (04:17→20:12)
[2022-01-07] MEDS: DOXYCYCLINE HYCLATE 100 MG CAP PO SCH ×2 (05:42→17:00)
[2022-01-07 06:43] LABS: Hematocrit (blood only) 29.5 % (42-52); Hemoglobin 9.2 g/dL (14.0-18.0)
[2022-01-07 07:07] LABS: BUN Creatinine Ratio 29.8 (10-20); Calcium 9.2 mg/dl (8.5-10.1); Creatinine Clr Calc Pharmacy 152.5 ml/min; Est GFR (African American) 133.3 ml/min; Magnesium 1.4 mg/dl (1.7-2.4); Potassium 4.3 mmol/L (3.5-5.1)
[2022-01-07] MEDS: METOCLOPRAMIDE HCL 5 MG TABLET PO SCH ×4 (08:02→20:14)
[2022-01-07] MEDS: INSULIN ASPART PER UNIT SC SCH ×4 (08:08→22:18)
[2022-01-07] MEDS: ENOXAPARIN INJ 30 MG/0.3 ML SYR SQ SCH (08:13)
[2022-01-07] MEDS: PENTOXIFYLLINE 400MG EXT REL TAB PO SCH ×3 (08:14→20:13)
[2022-01-07] MEDS: LORATADINE 10 MG TAB PO SCH (08:14)
[2022-01-07] MEDS: risperiDONE 2 MG TABLET PO SCH ×2 (08:14→20:13)
[2022-01-07] MEDS: PANTOprazole 40 MG TAB PO SCH (08:15)
[2022-01-07] MEDS: CHOLECALCIFEROL 1,000 UNITS 25 MCG TAB PO SCH (08:15)
[2022-01-07] MEDS: MULTIVITAMIN TAB PO SCH (08:15)
[2022-01-07] MEDS: ESCITALOPRAM OXALATE 20 MG TAB PO SCH (08:16)
[2022-01-07] MEDS: MAGNESIUM OXIDE 400 MG TAB PO SCH ×2 (08:16→20:14)
[2022-01-07] MEDS: UMECLIDINIUM BROMIDE 62.5MCG/BLISTER 7 PUFFS/INHALER INH SCH (08:17)
[2022-01-07] MEDS: clonazePAM 0.5 MG TAB PO SCH ×2 (08:20→20:12)
[2022-01-07] MEDS ORDERED: INSULIN GLARGINE SOLOSTAR 100 UNITS/ML 3 ML PEN SC SCH (09:00)
[2022-01-07] MEDS: MAGNESIUM SULFATE / D5W 1 GM/100 ML BAG IV SCH ×2 (09:36→11:22)
[2022-01-07] MEDS: ARTIFICIAL TEARS OPB SCH ×4 (09:37→20:12)
[2022-01-07] MEDS: ADVANCED PROBIOTIC 1250 MG CAPSULE PO SCH (10:10)
--- NOTE | 2022-01-07 10:41 | Cardiology Progress Note ---
Date of Service January 07, 2022 Assessment & Plan (1) Acute hypoxemic respiratory failure: (2) Pneumonia: (3) Sepsis: (4) Elevated troponin: (5) Anemia: (6) Presence of IVC filter: (7) Intellectual disability: (8) PAF (paroxysmal atrial fibrillation): Plan: Reviewed the patient's telemetry for the past several days and he has been in sinus rhythm. At this point I would continue current treatment. No additional cardiac testing is indicated. At this time I do not believe any additional treatment is required for his cardiac rhythm. Admission and Anticipated Discharge Date Admission Date: January 03, 2022 Subjective The patient appears to be comfortable. Review of Systems Review of Systems: Not obtainable Physical Exam Physical Exam: General: no acute distress and stated age Head: normocephalic, no masses, lesions, tenderness or abnormalities Eyes: conjunctiva are pink and non-injected, sclera clear Neck: supple, no adenopathy, no bruits, normal jugular venous pulse, no hepatojugular reflux Chest: normal shape and normal respiratory effort Lungs: clear to auscultation and percussion Cardiac Exam: - regular rate & rhythm, no murmurs gallops or rubs - normal S1, normal S2 Pulses: 2(+) throughout Abdomen: abdomen soft, non-tender, no abnormal masses and no hepatosplenomegaly Musculoskeletal: no gait disturbance, no joint inflammation, no deforming arthritis Extremities: no edema and no cyanosis Neuro: grossly normal exam Results & Data ([facility]) Vital Signs (Past 12 Hours) Vital Signs Temp Pulse Pulse Resp BP Pulse Ox 01/07/22 09:07 59 L 01/07/22 09:00 18 97 01/07/22 07:16 36.4 C L 70 18 100/60 97 01/07/22 03:21 37.1 C 77 17 115/69 95 01/06/22 23:59 58 L 01/06/22 23:32 37.0 C 72 18 108/61 96 Laboratory Results Laboratory Results - last 24 hr 01/06/22 01/06/22 01/06/22 11:16 16:27 20:09 Hgb Hct Sodium Potassium Chloride Carbon Dioxide Anion Gap BUN Creatinine Est Cr Clr Drug Dosing Est GFR ( Amer) Est GFR (Non-Af Amer) BUN/Creatinine Ratio Glucose POC Glucose 109 H 84 215 H Calcium Magnesium 01/07/22 01/07/22 01/07/22 06:03 06:20 07:14 Hgb 9.2 L Hct 29.5 L Sodium 141 Potassium 4.3 Chloride 106 Carbon Dioxide 30 Anion Gap 5 BUN 14 Creatinine 0.47 L Est Cr Clr Drug Dosing 152.5 Est GFR ( Amer) 133.3 Est GFR (Non-Af Amer) 115.0 BUN/Creatinine Ratio 29.8 H Glucose 94 POC Glucose 193 H Calcium 9.2 Magnesium 1.4 L Medications Administered Current Inpatient Medications Acetaminophen (Acetaminophen 325 Mg Tab) 650 mg PO Q4H PRN PRN Reason: Pain or Fever Stop: 02/02/22 10:24 Last Admin: 01/05/22 20:27 Dose: 650 mg Documented by: Artificial Tears (Artificial Tears) 1 drops OPB QID [facility] Stop: 02/02/22 12:59 Last Admin: 01/07/22 09:37 Dose: 1 drops Documented by: Clonazepam (Clonazepam 0.5 Mg Tab) 0.5 mg PO BID [facility] Stop: 02/02/22 20:59 Last Admin: 01/07/22 08:20 Dose: 0.5 mg Documented by: Dextrose (Dextrose 50% 50 Ml Syringe) 25 - 50 ml IV UD PRN; Protocol PRN Reason: Hypoglycemia Protocol Stop: 02/02/22 10:46 Doxycycline Hyclate (Doxycycline Hyclate 100 Mg Cap) 100 mg PO BID@0600,1800 [facility]; Protocol Stop: 01/11/22 14:59 Last Admin: 01/07/22 05:42 Dose: 100 mg Documented by: Enoxaparin Sodium (Enoxaparin Inj 30 Mg/0.3 Ml Syr) 30 mg SQ QAM [facility] Stop: 02/03/22 08:59 Last Admin: 01/07/22 08:13 Dose: 30 mg Documented by: Escitalopram Oxalate (Escitalopram Oxalate 20 Mg Tab) 20 mg PO QAM [facility] Stop: 02/03/22 08:59 Last Admin: 01/07/22 08:16 Dose: 20 mg Documented by: Glucagon (Glucagon For Inj 1 Mg Vial) 1 mg SQ UD PRN; Protocol PRN Reason: Hypoglycemia Protocol Stop: 02/02/22 10:46 Glucose (Glucose 10 Tabs/Tube) 4 - 8 tabs PO UD PRN; Protocol PRN Reason: Hypoglycemia Protocol Stop: 02/02/22 10:46 Glucose (Glucose 40% Gel 15 Gm Tube) 15 - 30 gm PO UD PRN; Protocol PRN Reason: Hypoglycemia Protocol Stop: 02/02/22 10:46 Guaifenesin (Guaifenesin 600 Mg Tabcr) 600 mg PO Q12H [facility] Stop: 02/02/22 11:14 Last Admin: 01/07/22 01:16 Dose: Not Given Documented by: Piperacillin Sod/Tazobactam (Sod 3.375 gm/ Dextrose) 115 mls @ 28.75 mls/hr IV Q8H [facility]; Protocol Stop: 01/10/22 11:59 Last Infusion: 01/07/22 08:45 Dose: Infused Documented by: Magnesium Sulfate/Dextrose (Magnesium Sulfate / D5w) 1 gm in 100 mls @ 50 mls/hr IV Q2H [facility] Stop: 01/07/22 13:29 Last Admin: 01/07/22 09:36 Dose: 50 mls/hr Documented by: Insulin Aspart (Insulin Aspart Per Unit) 0 units SC [facility] Stop: 02/02/22 11:29 Last Admin: 01/07/22 08:08 Dose: 9 units Documented by: Insulin Glargine (Insulin Glargine Solostar 100 Units/Ml 3 Ml Pen) 15 units SC DAILY [facility]; Protocol Stop: 02/06/22 08:59 Last Admin: 01/07/22 08:17 Dose: 15 units Documented by: Lactobacillus Acidophilus (Advanced Probiotic 1250 Mg Capsule) 2 cap PO DAILY [facility] Stop: 02/06/22 08:59 Last Admin: 01/07/22 10:10 Dose: 2 cap Documented by: Loratadine (Loratadine 10 Mg Tab) 10 mg PO QAM [facility] Stop: 02/03/22 08:59 Last Admin: 01/07/22 08:14 Dose: 10 mg Documented by: Magnesium Oxide (Magnesium Oxide 400 Mg Tab) 400 mg PO BID [facility] Stop: 02/02/22 20:59 Last Admin: 01/07/22 08:16 Dose: 400 mg Documented by: Metoclopramide HCl (Metoclopramide Hcl 5 Mg Tablet) 5 mg PO ACHS [facility] Stop: 02/02/22 11:29 Last Admin: 01/07/22 08:02 Dose: 5 mg Documented by: Miscellaneous (Carbohydrates For Hypoglycemia ) 15 - 30 gm PO UD PRN PRN Reason: Hypoglycemia Protocol Stop: 02/02/22 10:46 Miscellaneous Information (Piperacill/Tazobac Consult Active) 1 ea N/A UD PRN PRN Reason: Consult Stop: 02/02/22 06:52 Miscellaneous Information (Pharmacy Glycemic Mgmt Consult) 1 ea N/A UD PRN PRN Reason: Consult Stop: 02/03/22 13:33 Multivitamins (Multivitamin Tab) 1 tab PO QAM [facility] Stop: 02/03/22 08:59 Last Admin: 01/07/22 08:15 Dose: 1 tab Documented by: Nitroglycerin (Nitroglycerin Sl 0.4 Mg/Tab Tab) 0.4 mg SL UD PRN PRN Reason: Chest Pain Stop: 02/02/22 10:24 Pantoprazole Sodium (Pantoprazole 40 Mg Tab) [facility] Stop: 02/03/22 08:59 Last Admin: 01/07/22 08:15 Dose: 40 mg Documented by: Pentoxifylline (Pentoxifylline 400mg Ext Rel Tab) 400 mg PO TID [facility] Stop: 02/02/22 13:59 Last Admin: 01/07/22 08:14 Dose: 400 mg Documented by: Risperidone (Risperidone 2 Mg Tablet) 2 mg PO BID [facility] Stop: 02/02/22 20:59 Last Admin: 01/07/22 08:14 Dose: 2 mg Documented by: Simvastatin (Simvastatin 20 Mg Tab) [address] [facility] Stop: 02/04/22 20:59 Last Admin: 01/06/22 21:41 Dose: 20 mg Documented by: Trazodone HCl (Trazodone Hcl 50 Mg Tab) [address] [facility] Stop: 02/02/22 20:59 Last Admin: 01/06/22 20:52 Dose: 50 mg Documented by: Umeclidinium [place] (Umeclidinium [place] 62.5mcg/Blister 7 Puffs/Inhaler) 1 puffs INH [facility] Stop: 02/03/22 08:59 Last Admin: 01/07/22 08:17 Dose: 1 puffs Documented by: Vitamin D (Cholecalciferol 1,000 Units 25 Mcg Tab) 1,000 [facility] Stop: 02/03/22 08:59 Last Admin: 01/07/22 08:15 Dose: 1,000 units Documented by: (1) Pneumonia Laterality: left Lung location: unspecified part of lung Pneumonia type: due to unspecified organism Qualified Code(s): J18.9 - Pneumonia, unspecified organism (2) Sepsis Acute respiratory failure type: with hypoxia Sepsis acute organ dysfunction status: with acute organ dysfunction Sepsis type: sepsis due to unspecified organism Severe sepsis acute organ dysfunction type: acute respiratory failure Severe sepsis shock status: unspecified Qualified Code(s): A41.9 - Sepsis, unspecified organism; R65.20 - Severe sepsis without septic shock; J96.01 - Acute respiratory failure with hypoxia (3) Anemia Anemia type: unspecified type Qualified Code(s): D64.9 - Anemia, unspecified
--- NOTE | 2022-01-07 11:35 | Pharmacy Report ---
Pharmacy Glycemic Short Note 2 - Date of Service January 07, 2022 - Glycemic Short BSG Results (Last 24 hours): 01/06/22 01/06/22 01/07/22 16:27 20:09 06:20 Glucose 94 POC Glucose 84 215 H 01/07/22 01/07/22 07:14 11:03 Glucose POC Glucose 193 H 132 H OUTPATIENT ANTIDIABETIC REGIMEN: * Metformin 1000 mg PO qAM, 500 mg PO qPM * Januvia 100 mg PO daily * Glimepiride 4 mg PO BID * HbA1c: 5.6% (01/04/22) ASSESSMENT: 01/07/22 * Patient's BSGs yesterday were [phone] mg/dL. * Patient received 43 units of insulin yesterday (18 units of basal and 25 units of bolus). * Fasting today was 94 on PRP and 193 on POC. * Will decrease basal insulin since PRP BSG was much lower than yesterday. * Loosen CF/CR as patient tends to drop throughout the day. Change lower BSG to 80 to prevent rebound hyperglycemia. 01/05/22 * Patient received 37 units of insulin yesterday, 15 units basal, fasting blood sugar 141mg/dl after 3 units of correctional for BSG 208mg/dl overnight * Increase basal slightly, continue CF/CR, pt sensitive to insulin 01/04/22 * BC is a 66 year old male admitted on 01/03/22 with sepsis secondary to suspected multifocal pneumonia * Pharmacy consulted for glycemic management due to lunch BSG of 346 mg/dL * Patient has excellent HbA1c on three oral medications * Will be slightly conservative with initial insulin dosing PLAN FOR INPATIENT GLYCEMIC CONTROL: * Hold outpatient oral diabetes medications * Basal insulin * Lantus 15 units SQ daily * Bolus insulin * NovoLog per scale ACHS or Q6hrs while NPO * Goal Range: Low 80 mg/dL - High 140 mg/dL * Correction Factor: 35 mg/dL/unit * Nutritional / Prandial insulin per carb ratio of 1 unit per 12 grams CHO consumed
--- NOTE | 2022-01-07 14:43 | Hospitalist Progress Note ---
Date of Service January 07, 2022 Assessment & Plan (1) Sepsis: Plan: Sepsis Multifocal pneumonia --CXR:Large alveolar opacity within the left mid to lower lung most characteristic of pneumonia. --COVID, Influenza, RSV negative --Blood Culture:Negative to date Lactic acid levels normalized with IV fluids Procalcitonin 12.42 MRSA Negative Continue vancomycin, Zosyn>>Transitioned to Doxy, Zosyn Blood Cultures: Negative to date Received IV fluids Aspiration precautions Wean off of supplemental oxygen as able Recheck procalcitonin tmw De-escalate antibiotics as able Needs 2 step prior to discharge Paroxysmal atrial fibrillation Amiodarone ggt discontinued Appreciate Cardiology Input Patient has IVC filter No full anticoagulation as recommended by Cardiology Spontaneously converted to Sinus (2) Pneumonia: (3) Elevated troponin: Plan: Likely demand ischemia secondary to above Troponin trended down (4) Decubital ulcer: Plan: Stage II decubitus ulcer Continue wound care Needs follow-up with wound care clinic upon discharge (5) Acute hypoxemic respiratory failure: Plan: Management as above (6) Chronic obstructive pulmonary disease: Plan: No signs of exacerbation Continue home inhalers (7) Diabetes mellitus, type 2: Plan: Hold p.o. medications Continue insulin treatment Glycemic pharmacy consulted to help with glycemic management Hypomagnesemia Replace electrolytes as needed (8) GERD (gastroesophageal reflux disease): Plan: Continue PPI (9) Intellectual disability: Plan: On risperidone, escitalopram (10) PVD (peripheral vascular disease): Plan: DVT Px: Lovenox SQ Code Status: Full Code Admission and Anticipated Discharge Date Admission Date: January 03, 2022 Subjective Patient is seen and examined at bedside Poor historian secondary to intellectual disability Remains in Sinus Afebrile Currently on 1 L KS Review of Systems Review of Systems: Unobtainable due to cognitive status Physical Exam Physical Exam: Physical Exam: Vitals signs as noted above General Appearance:Thin, frail, chronic ill appearing, no apparent distress Head: normocephalic, Atraumatic Eyes: normal inspection, EOMI Neck: supple, Trachea midline Respiratory/Chest: Normal breath sounds, basal crackles, No accessory muscle use Cardiovascular: S1, S2, + murmur Abdomen/GI:Soft, Non tender, Bowel sounds present Extremities/Musculoskeletal:normal inspection, Trace edema, + chronic venous stasis changes, stage 2 sacral ulcer Neurologic/Psych:grossly no focal neurological deficits, + Intellectual disability Skin: normal color, warm Results & Data Results & Data ([facility]) Vital Signs (Past 12 Hours) Vital Signs Temp Pulse Pulse Resp BP Pulse Ox 01/07/22 10:54 36.7 C 57 L 16 112/67 97 01/07/22 09:07 59 L 01/07/22 09:00 18 97 01/07/22 07:16 36.4 C L 70 18 100/60 97 01/07/22 03:21 37.1 C 77 17 115/69 95 (1) Sepsis Acute respiratory failure type: with hypoxia Sepsis acute organ dysfunction status: with acute organ dysfunction Sepsis type: sepsis due to unspecified organism Severe sepsis acute organ dysfunction type: acute respiratory failure Severe sepsis shock status: unspecified Qualified Code(s): A41.9 - Sepsis, unspecified organism; R65.20 - Severe sepsis without septic shock; J96.01 - Acute respiratory failure with hypoxia (2) Pneumonia Laterality: left Lung location: unspecified part of lung Pneumonia type: due to unspecified organism Qualified Code(s): J18.9 - Pneumonia, unspecified organism (3) Decubital ulcer Pressure injury location: sacral region Pressure injury stage: stage 2 Qualified Code(s): L89.152 - Pressure ulcer of sacral region, stage 2
[2022-01-07] MEDS: SIMVASTATIN 20 MG TAB PO SCH (20:14)
[2022-01-07] MEDS: traZODone HCL 50 MG TAB PO SCH (20:14)
[2022-01-08] MEDS: PIPERACILLIN/TAZOBACTAM 3.375 GM in DEXTROSE 5% 100 ML IV SCH ×3 (03:45→20:01)
[2022-01-08] MEDS: ACETAMINOPHEN 325 MG TAB PO PRN (05:21)
[2022-01-08] MEDS: DOXYCYCLINE HYCLATE 100 MG CAP PO SCH ×2 (05:21→17:19)
[2022-01-08 07:43] LABS: BUN Creatinine Ratio 23.4 (10-20); Calcium 7.9 mg/dl (8.5-10.1); Est GFR (African American) 117.4 ml/min; Est GFR (Non-African American) 101.3 ml/min; Magnesium 1.5 mg/dl (1.7-2.4); Potassium 4.4 mmol/L (3.5-5.1)
[2022-01-08] MEDS: INSULIN ASPART PER UNIT SC SCH ×4 (08:11→20:30)
[2022-01-08] MEDS: ENOXAPARIN INJ 30 MG/0.3 ML SYR SQ SCH (08:15)
[2022-01-08] MEDS: CHOLECALCIFEROL 1,000 UNITS 25 MCG TAB PO SCH (08:16)
[2022-01-08] MEDS: PANTOprazole 40 MG TAB PO SCH (08:17)
[2022-01-08] MEDS: MAGNESIUM OXIDE 400 MG TAB PO SCH ×2 (08:17→20:02)
[2022-01-08] MEDS: ADVANCED PROBIOTIC 1250 MG CAPSULE PO SCH (08:18)
[2022-01-08] MEDS: PENTOXIFYLLINE 400MG EXT REL TAB PO SCH ×3 (08:18→20:08)
[2022-01-08] MEDS: MULTIVITAMIN TAB PO SCH (08:18)
[2022-01-08] MEDS: ESCITALOPRAM OXALATE 20 MG TAB PO SCH (08:19)
[2022-01-08] MEDS: METOCLOPRAMIDE HCL 5 MG TABLET PO SCH ×4 (08:19→20:02)
[2022-01-08] MEDS: LORATADINE 10 MG TAB PO SCH (08:19)
[2022-01-08] MEDS: risperiDONE 2 MG TABLET PO SCH ×2 (08:20→20:08)
[2022-01-08] MEDS: UMECLIDINIUM BROMIDE 62.5MCG/BLISTER 7 PUFFS/INHALER INH SCH (08:21)
[2022-01-08] MEDS: clonazePAM 0.5 MG TAB PO SCH ×2 (08:25→20:01)
[2022-01-08] MEDS: ARTIFICIAL TEARS OPB SCH ×4 (08:26→20:01)
[2022-01-08] MEDS ORDERED: METOPROLOL TARTRATE 25 MG TAB PO SCH (09:00)
[2022-01-08] MEDS ORDERED: INSULIN GLARGINE SOLOSTAR 100 UNITS/ML 3 ML PEN SC SCH (09:00)
[2022-01-08] MEDS: MAGNESIUM SULFATE / D5W 1 GM/100 ML BAG IV SCH ×2 (09:07→11:01)
--- NOTE | 2022-01-08 09:21 | Pharmacy Report ---
Pharmacy Glycemic Short Note 2 - Date of Service January 08, 2022 - Glycemic Short BSG Results (Last 24 hours): 01/07/22 01/07/22 01/07/22 11:03 16:10 16:11 Glucose POC Glucose 132 H 65 L* 58 L* 01/07/22 01/07/22 01/07/22 17:49 20:20 20:21 Glucose POC Glucose 128 H 66 L* 70 01/08/22 01/08/22 07:03 07:20 Glucose 196 H POC Glucose 202 H OUTPATIENT ANTIDIABETIC REGIMEN: * Metformin 1000 mg PO qAM, 500 mg PO qPM * Januvia 100 mg PO daily * Glimepiride 4 mg PO BID * HbA1c: 5.6% (01/04/22) ASSESSMENT: 01/08/22 * Isai received 29 units of insulin yesterday with the majority of BSGs at goal * 15 units Lantus + 14 units novolog * Fasting BSG of 202 mg/dL this morning. Lantus dose was decreased ~17% yesterday. I will slightly increase today. * BSG at bedtime was below goal last evening (70 mg/dL). If this becomes a trend, may consider loosening CF/CR with dinner. 01/07/22 * Patient's BSGs yesterday were 161-031-54-215 mg/dL. * Patient received 43 units of insulin yesterday (18 units of basal and 25 units of bolus). * Fasting today was 94 on PRP and 193 on POC. * Will decrease basal insulin since PRP BSG was much lower than yesterday. * Loosen CF/CR as patient tends to drop throughout the day. Change lower BSG to 80 to prevent rebound hyperglycemia. 01/05/22 * Patient received 37 units of insulin yesterday, 15 units basal, fasting blood sugar 141mg/dl after 3 units of correctional for BSG 208mg/dl overnight * Increase basal slightly, continue CF/CR, pt sensitive to insulin 01/04/22 * BC is a 66 year old male admitted on 01/03/22 with sepsis secondary to suspected multifocal pneumonia * Pharmacy consulted for glycemic management due to lunch BSG of 346 mg/dL * Patient has excellent HbA1c on three oral medications * Will be slightly conservative with initial insulin dosing PLAN FOR INPATIENT GLYCEMIC CONTROL: * Hold outpatient oral diabetes medications * Basal insulin * Lantus 17 units SQ daily * Bolus insulin * NovoLog per scale ACHS or Q6hrs while NPO * Goal Range: Low 80 mg/dL - High 140 mg/dL * Correction Factor: 35 mg/dL/unit * Nutritional / Prandial insulin per carb ratio of 1 unit per 12 grams CHO consumed
--- NOTE | 2022-01-08 09:44 | XRay Report ---
SINGLE VIEW CHEST CLINICAL HISTORY: Pneumonia. FINDINGS: An AP, portable, upright chest radiograph is compared to study dated 01/03/2022 and correlat ed with chest CT dated 08/15/2021. The examination is mild degraded by portable technique and patient rotation. The heart is enlarged. The pulmonary vasculature is noncongested. Chronic interstitial th ickening and mild elevation of the left hemidiaphragm is similar to previous. Airspace consolidation in the left lower lung has partially cleared as compared to previous. The right lung is clear noting basilar atelectasis. No large pleural effusion is identified. No pneumothorax is seen. The skeletal s tructures are osteopenic. There are healed bilateral rib fractures. Degenerative change and scoliosis is noted in the thoracic spine. An IVC filter is noted in the upper abdomen. IMPRESSION: 1. Airspace consolidation in the left lower lung has partially cleared as compared to 01/03/2022. Cont inued follow-up to resolution is recommended. 2. Cardiomegaly without radiographic evidence of congestive failure. ACT 112: Negative or not required by law. Electronically signed by: Beka Irby M.D. 01/08/2022 9:43 AM
[2022-01-08] MEDS: METOPROLOL TARTRATE 25 MG TAB PO SCH ×2 (11:19→20:31)
[2022-01-08] MEDS: guaiFENesin 600 MG TABCR PO SCH ×2 (11:20→21:53)
--- NOTE | 2022-01-08 16:59 | Hospitalist Progress Note ---
Date of Service January 08, 2022 Assessment & Plan (1) Sepsis: Plan: Sepsis Multifocal pneumonia --CXR:Large alveolar opacity within the left mid to lower lung most characteristic of pneumonia. --COVID, Influenza, RSV negative --Blood Culture:Negative to date Lactic acid levels normalized with IV fluids Procalcitonin 12.42>>27.32>>3.86 MRSA Negative Continue vancomycin, Zosyn>>Transitioned to Doxy, Zosyn Blood Cultures: Negative to date Received IV fluids Aspiration precautions Wean off of supplemental oxygen as able procalcitonin trending down but febrile today Needs 2 step prior to discharge Continue Current antibiotics Consider repeat Blood cultures if fever persists CXR today showed improved airspace consolidation of the left lower lung when compared to prior imaging. NSVT Paroxysmal atrial fibrillation Amiodarone ggt discontinued Appreciate Cardiology Input Patient has IVC filter No full anticoagulation as recommended by Cardiology Spontaneously converted to Sinus Started on Metoprolol 12.5mg BID Monitor Hypomagnesemia Replete electrolytes as needed (2) Pneumonia: (3) Elevated troponin: Plan: Likely demand ischemia secondary to above Troponin trended down (4) Decubital ulcer: Plan: Stage II decubitus ulcer Continue wound care Needs follow-up with wound care clinic upon discharge (5) Acute hypoxemic respiratory failure: Plan: Management as above (6) Chronic obstructive pulmonary disease: Plan: No signs of exacerbation Continue home inhalers (7) Diabetes mellitus, type 2: Plan: Hold p.o. medications Continue insulin treatment Glycemic pharmacy consulted to help with glycemic management (8) GERD (gastroesophageal reflux disease): Plan: Continue PPI (9) Intellectual disability: Plan: On risperidone, escitalopram (10) PVD (peripheral vascular disease): Plan: DVT Px: Lovenox SQ Code Status: Full Code Admission and Anticipated Discharge Date Admission Date: January 03, 2022 Subjective Patient is seen and examined at bedside Poor historian secondary to intellectual disability Patient had 7 beats of NSVT today Asymptomatic during my encounter Febrile this AM No distress on exam Review of Systems Review of Systems: Unobtainable due to cognitive status Physical Exam Physical Exam: Physical Exam: Vitals signs as noted above General Appearance:Thin, frail, chronic ill appearing, no apparent distress Head: normocephalic, Atraumatic Eyes: normal inspection, EOMI Neck: supple, Trachea midline Respiratory/Chest: Normal breath sounds, Minimal crackles at bases, No accessory muscle use Cardiovascular: S1, S2, + murmur Abdomen/GI:Soft, Non tender, Bowel sounds present Extremities/Musculoskeletal:normal inspection, Trace edema, + chronic venous stasis changes, stage 2 sacral ulcer Neurologic/Psych:grossly no focal neurological deficits, + Intellectual disability Skin: normal color, warm Results & Data Results & Data ([facility]) Vital Signs (Past 12 Hours) Vital Signs Temp Pulse Pulse Resp BP Pulse Ox 01/08/22 15:28 36.5 C 66 19 112/61 94 01/08/22 14:49 68 01/08/22 11:15 36.9 C 65 18 109/58 L 94 01/08/22 10:03 66 91/51 L 01/08/22 07:21 36.5 C 60 18 124/62 96 01/08/22 06:25 64 01/08/22 05:00 18 Laboratory Results BMP 01/08/22 07:03 Sodium 138 Potassium 4.4 Chloride 103 Carbon Dioxide 29 BUN 15 Creatinine 0.64 Glucose 196 H Calcium 7.9 L (1) Sepsis Acute respiratory failure type: with hypoxia Sepsis acute organ dysfunction status: with acute organ dysfunction Sepsis type: sepsis due to unspecified org anism Severe sepsis acute organ dysfunction type: acute respiratory failure Severe sepsis shock status: unspecified Qualified Code(s): A41.9 - Sepsis, unspecified organism; R65.20 - Severe sepsis without septic shock; J96.01 - Acute respiratory failure with hypoxia (2) Pneumonia Laterality: left Lung location: unspecified part of lung Pneumonia type: due to unspecified organism Qualified Code(s): J18.9 - Pneumonia, unspecified organism (3) Decubital ulcer Pressure injury location: sacral region Pressure injury stage: stage 2 Qualified Code(s): L89.152 - Pressure ulcer of sacral region, stage 2
[2022-01-08] MEDS: traZODone HCL 50 MG TAB PO SCH (20:08)
[2022-01-08] MEDS: SIMVASTATIN 20 MG TAB PO SCH (20:08)
[2022-01-09] MEDS: PIPERACILLIN/TAZOBACTAM 3.375 GM in DEXTROSE 5% 100 ML IV SCH ×3 (03:52→20:51)
[2022-01-09] MEDS: DOXYCYCLINE HYCLATE 100 MG CAP PO SCH ×2 (05:43→17:31)
[2022-01-09 06:19] LABS: Hematocrit (blood only) 25.8 % (42-52); Hemoglobin 8.2 g/dL (14.0-18.0); Mean Corpuscular Hemoglobin 32.9 pg (25-34); Mean Corpuscular Hgb Conc 31.8 g/dL (32-36); Mean Corpuscular Volume 103.6 fL (80-100); Platelet Count 178 K/uL (130-400); RDW Coefficient of Variation 14.8 % (11.5-14.5); RDW Standard Deviation 56.4 fL (36.4-46.3); Red Blood Count 2.49 M/uL (4.7-6.1)
[2022-01-09] MEDS: PANTOprazole 40 MG TAB PO SCH (08:02)
[2022-01-09] MEDS: LORATADINE 10 MG TAB PO SCH (08:02)
[2022-01-09] MEDS: ENOXAPARIN INJ 30 MG/0.3 ML SYR SQ SCH (08:02)
[2022-01-09] MEDS: PENTOXIFYLLINE 400MG EXT REL TAB PO SCH ×3 (08:02→20:54)
[2022-01-09] MEDS: ADVANCED PROBIOTIC 1250 MG CAPSULE PO SCH (08:02)
[2022-01-09] MEDS: MAGNESIUM OXIDE 400 MG TAB PO SCH ×2 (08:02→20:55)
[2022-01-09] MEDS: risperiDONE 2 MG TABLET PO SCH ×2 (08:02→20:53)
[2022-01-09] MEDS: CHOLECALCIFEROL 1,000 UNITS 25 MCG TAB PO SCH (08:02)
[2022-01-09] MEDS: METOCLOPRAMIDE HCL 5 MG TABLET PO SCH ×4 (08:02→20:52)
[2022-01-09] MEDS: METOPROLOL TARTRATE 25 MG TAB PO SCH (08:02)
[2022-01-09] MEDS: MULTIVITAMIN TAB PO SCH (08:02)
[2022-01-09] MEDS: ESCITALOPRAM OXALATE 20 MG TAB PO SCH (08:02)
[2022-01-09] MEDS: UMECLIDINIUM BROMIDE 62.5MCG/BLISTER 7 PUFFS/INHALER INH SCH (08:03)
[2022-01-09] MEDS: ARTIFICIAL TEARS OPB SCH ×4 (08:03→20:54)
[2022-01-09] MEDS: clonazePAM 0.5 MG TAB PO SCH ×2 (08:10→21:00)
[2022-01-09 08:11] LABS: BUN Creatinine Ratio 29.5 (10-20); Calcium 8.9 mg/dl (8.5-10.1); Creatinine Clr Calc Pharmacy 91.9 ml/min; Est GFR (African American) 108.3 ml/min; Est GFR (Non-African American) 93.4 ml/min; Magnesium 1.6 mg/dl (1.7-2.4); Potassium 4.2 mmol/L (3.5-5.1)
[2022-01-09] MEDS ORDERED: INSULIN GLARGINE SOLOSTAR 100 UNITS/ML 3 ML PEN SC SCH (09:00)
[2022-01-09] MEDS: INSULIN ASPART PER UNIT SC SCH ×5 (09:19→20:32)
--- NOTE | 2022-01-09 10:57 | Pharmacy Report ---
Pharmacy Glycemic Short Note 2 - Date of Service January 09, 2022 - Glycemic Short BSG Results (Last 24 hours): 01/08/22 01/08/22 01/08/22 11:20 16:13 20:10 Glucose POC Glucose 258 H 93 66 L* 01/08/22 01/09/22 01/09/22 20:57 05:27 07:16 Glucose 82 POC Glucose 117 H 120 H OUTPATIENT ANTIDIABETIC REGIMEN: * Metformin 1000 mg PO qAM, 500 mg PO qPM * Januvia 100 mg PO daily * Glimepiride 4 mg PO BID * HbA1c: 5.6% (01/04/22) ASSESSMENT: 01/09/22 * Stressors stable * Hypoglycemia noted yesterday evening after tightened CHO ratio at dinner. However, post-prandial BSG's before lunch was significantly elevated and managed prior with a tighter CHO ratio with breakfast. Will therefore have tighter CHO ratio at breakfast and looser CHO ratio at the other checks * AM fasting BSG trended down significantly after dose increase in Lantus yesterday. Will slightly decrease Lantus to prevent further decline 01/08/22 * Isai received 29 units of insulin yesterday with the majority of BSGs at goal * 15 units Lantus + 14 units novolog * Fasting BSG of 202 mg/dL this morning. Lantus dose was decreased ~17% yesterday. I will slightly increase today. * BSG at bedtime was below goal last evening (70 mg/dL). If this becomes a trend, may consider loosening CF/CR with dinner. 01/07/22 * Patient's BSGs yesterday were 604-722-13-215 mg/dL. * Patient received 43 units of insulin yesterday (18 units of basal and 25 units of bolus). * Fasting today was 94 on PRP and 193 on POC. * Will decrease basal insulin since PRP BSG was much lower than yesterday. * Loosen CF/CR as patient tends to drop throughout the day. Change lower BSG to 80 to prevent rebound hyperglycemia. 01/05/22 * Patient received 37 units of insulin yesterday, 15 units basal, fasting blood sugar 141mg/dl after 3 units of correctional for BSG 208mg/dl overnight * Increase basal slightly, continue CF/CR, pt sensitive to insulin 01/04/22 * BC is a 66 year old male admitted on 01/03/22 with sepsis secondary to suspected multifocal pneumonia * Pharmacy consulted for glycemic management due to lunch BSG of 346 mg/dL * Patient has excellent HbA1c on three oral medications * Will be slightly conservative with initial insulin dosing PLAN FOR INPATIENT GLYCEMIC CONTROL: * Hold outpatient oral diabetes medications * Basal insulin * Lantus 13-17 units SQ daily, based on BSG * Bolus insulin * NovoLog per scale ACHS or Q6hrs while NPO * Goal Range: Low 80 mg/dL - High 140 mg/dL * Correction Factor: 35 mg/dL/unit * CHO ratio: 10 g CHO/unit with breakfast, 12 g CHO/unit with lunch, dinner, bedtime
[2022-01-09] MEDS: guaiFENesin 600 MG TABCR PO SCH ×2 (12:19→23:37)
--- NOTE | 2022-01-09 13:45 | Hospitalist Progress Note ---
Date of Service January 09, 2022 Assessment & Plan (1) Pneumonia: (2) Acute hypoxemic respiratory failure: (3) Sepsis: Plan: Sepsis Multifocal pneumonia --CXR:Large alveolar opacity within the left mid to lower lung most characteristic of pneumonia. --COVID, Influenza, RSV negative --Blood Culture:Negative to date Lactic acid levels normalized with IV fluids Procalcitonin 12.42>>27.32>>3.86 MRSA Negative Continue vancomycin, Zosyn>>Transitioned to Doxy, Zosyn Blood Cultures: Negative to date Received IV fluids Aspiration precautions Weaned off supplemental oxygen as able Had temp of 38 yesterday Continue antibiotics to complete 7 days if no more fevers NSVT Paroxysmal atrial fibrillation Appreciate Cardiology Input Patient has IVC filter No full anticoagulation as recommended by Cardiology Spontaneously converted to Sinus Was bradycardic this morning. Metoprolol started yesterday discontinued Hypomagnesemia Replete and monitor (4) Elevated troponin: Plan: Likely demand ischemia secondary to above Troponin trended down (5) Decubital ulcer: Plan: Stage II decubitus ulcer Continue wound care Needs follow-up with wound care clinic upon discharge (6) Chronic obstructive pulmonary disease: Plan: No signs of exacerbation Continue home inhalers (7) Diabetes mellitus, type 2: Plan: Hold p.o. medications Continue insulin treatment Glycemic pharmacy on board with glycemic management (8) GERD (gastroesophageal reflux disease): Plan: Continue PPI (9) Intellectual disability: Plan: On risperidone, escitalopram (10) PVD (peripheral vascular disease): Plan: DVT Px: Lovenox SQ Code Status: Full Code Admission and Anticipated Discharge Date Admission Date: January 03, 2022 Subjective Patient seen and examined Patient is a poor historian. Difficulty getting ROS due to intellectual disability No complaints No event overnight per RN Physical Exam Constitutional: + well hydrated; no acute distress Thin, chronic ill looking Eyes: PERRL, conjunctivae normal, anicteric sclerae ENMT: external ear and nose normal, oropharynx normal Respiratory: Normal respiratory effort. Not in respiratory distress. On room air Mild basilar crackles. Cardiovascular: Rate/Rhythm: regular rate and regular rhythm S1 S2 Gastrointestinal (Abdomen): normal bowel sounds, soft, nontender, no hepatosplenomegaly Musculoskeletal: Trace edema Chronic venous stasis changes Neurologic: PERRL, EOMI. Intellectual disability Results & Data Results & Data ([facility]) Vital Signs (Past 12 Hours) Vital Signs Temp Pulse Resp BP BP Pulse Ox 01/09/22 11:50 36.5 C 64 16 95/61 L 90 01/09/22 08:02 36.6 C 55 L 16 120/57 L 91 01/09/22 07:58 77 121/77 01/09/22 05:00 16 01/09/22 03:23 36.6 C 64 15 104/63 95 Laboratory Results Abnormal lab results 01/08/22 01/08/22 01/09/22 Range/Units 20:10 20:57 05:27 WBC (4.8-10.8) K/uL RBC (4.7-6.1) M/uL Hgb (14.0-18.0) g/dL Hct (42-52) % MCV (80-100) fL MCHC (32-36) g/dL RDW Std Deviation (36.4-46.3) fL RDW Coeff of Drew (11.5-14.5) % BUN/Creatinine Ratio 29.5 H (10-20) POC Glucose 66 L* 117 H (70-99) mg/dl Magnesium 1.6 L (1.7-2.4) mg/dl 01/09/22 01/09/22 01/09/22 Range/Units 05:27 07:16 11:14 WBC 4.10 L (4.8-10.8) K/uL RBC 2.49 L (4.7-6.1) M/uL Hgb 8.2 L (14.0-18.0) g/dL Hct 25.8 L (42-52) % MCV 103.6 H (80-100) fL MCHC 31.8 L (32-36) g/dL RDW Std Deviation 56.4 H (36.4-46.3) fL RDW Coeff of Drew 14.8 H (11.5-14.5) % BUN/Creatinine Ratio (10-20) POC Glucose 120 H 183 H (70-99) mg/dl Magnesium (1.7-2.4) mg/dl 01/09/22 Range/Units 16:02 WBC (4.8-10.8) K/uL RBC (4.7-6.1) M/uL Hgb (14.0-18.0) g/dL Hct (42-52) % MCV (80-100) fL MCHC (32-36) g/dL RDW Std Deviation (36.4-46.3) fL RDW Coeff of Drew (11.5-14.5) % BUN/Creatinine Ratio (10-20) POC Glucose 103 H (70-99) mg/dl Magnesium (1.7-2.4) mg/dl (1) Sepsis Acute respiratory failure type: with hypoxia Sepsis acute organ dysfunction status: with acute organ dysfunction Sepsis type: sepsis due to unspecified organism Severe sepsis acute organ dysfunction type: acute respiratory failure Severe sepsis shock status: unspecified Qualified Code(s): A41.9 - Sepsis, unspecified organism; R65.20 - Severe sepsis without septic shock; J96.01 - Acute respiratory failure with hypoxia (2) Pneumonia Laterality: left Lung location: unspecified part of lung Pneumonia type: due to unspecified organism Qualified Code(s): J18.9 - Pneumonia, unspecified organism (3) Decubital ulcer Pressure injury location: sacral region Pressure injury stage: stage 2 Qualified Code(s): L89.152 - Pressure ulcer of sacral region, stage 2
[2022-01-09] MEDS ORDERED: MAGNESIUM SULFATE / D5W 1 GM/100 ML BAG IV ONE (17:00)
[2022-01-09] MEDS: SIMVASTATIN 20 MG TAB PO SCH (20:54)
[2022-01-09] MEDS: traZODone HCL 50 MG TAB PO SCH (21:00)
[2022-01-10] MEDS: PIPERACILLIN/TAZOBACTAM 3.375 GM in DEXTROSE 5% 100 ML IV SCH (04:07)
[2022-01-10] MEDS: DOXYCYCLINE HYCLATE 100 MG CAP PO SCH ×2 (05:02→17:20)
[2022-01-10 06:53] LABS: BUN Creatinine Ratio 28.6 (10-20); Calcium 8.9 mg/dl (8.5-10.1); Creatinine Clr Calc Pharmacy 93.1 ml/min; Est GFR (African American) 108.8 ml/min; Est GFR (Non-African American) 93.9 ml/min; Potassium 4.2 mmol/L (3.5-5.1)
[2022-01-10 06:55] LABS: Hematocrit (blood only) 28.4 % (42-52); Hemoglobin 8.8 g/dL (14.0-18.0); Mean Corpuscular Hemoglobin 32.1 pg (25-34); Mean Corpuscular Volume 103.6 fL (80-100); Mean Platelet Volume 10.3 fL (7.4-10.4); Platelet Count 197 K/uL (130-400); RDW Coefficient of Variation 14.9 % (11.5-14.5); RDW Standard Deviation 56.3 fL (36.4-46.3); Red Blood Count 2.74 M/uL (4.7-6.1); White Blood Count 4.04 K/uL (4.8-10.8)
[2022-01-10] MEDS: MULTIVITAMIN TAB PO SCH (08:33)
[2022-01-10] MEDS: risperiDONE 2 MG TABLET PO SCH ×2 (08:33→20:23)
[2022-01-10] MEDS: MAGNESIUM OXIDE 400 MG TAB PO SCH ×2 (08:34→20:25)
[2022-01-10] MEDS: PENTOXIFYLLINE 400MG EXT REL TAB PO SCH ×3 (08:34→20:26)
[2022-01-10] MEDS: ESCITALOPRAM OXALATE 20 MG TAB PO SCH (08:34)
[2022-01-10] MEDS: PANTOprazole 40 MG TAB PO SCH (08:34)
[2022-01-10] MEDS: METOCLOPRAMIDE HCL 5 MG TABLET PO SCH ×4 (08:34→20:24)
[2022-01-10] MEDS: ENOXAPARIN INJ 30 MG/0.3 ML SYR SQ SCH (08:34)
[2022-01-10] MEDS: ADVANCED PROBIOTIC 1250 MG CAPSULE PO SCH (08:34)
[2022-01-10] MEDS: LORATADINE 10 MG TAB PO SCH (08:34)
[2022-01-10] MEDS: ARTIFICIAL TEARS OPB SCH ×4 (08:34→20:31)
[2022-01-10] MEDS: INSULIN GLARGINE SOLOSTAR 100 UNITS/ML 3 ML PEN SC SCH (08:35)
[2022-01-10] MEDS: UMECLIDINIUM BROMIDE 62.5MCG/BLISTER 7 PUFFS/INHALER INH SCH (08:35)
[2022-01-10] MEDS: CHOLECALCIFEROL 1,000 UNITS 25 MCG TAB PO SCH (08:35)
[2022-01-10] MEDS: INSULIN ASPART PER UNIT SC SCH ×4 (08:37→20:45)
[2022-01-10] MEDS: clonazePAM 0.5 MG TAB PO SCH ×2 (08:39→20:41)
[2022-01-10] MEDS: guaiFENesin 600 MG TABCR PO SCH ×2 (12:29→23:34)
--- NOTE | 2022-01-10 12:38 | Hospitalist Progress Note ---
Date of Service January 10, 2022 Assessment & Plan (1) Pneumonia: (2) Acute hypoxemic respiratory failure: (3) Sepsis: Plan: Sepsis Multifocal pneumonia --CXR:Large alveolar opacity within the left mid to lower lung most characteristic of pneumonia. --COVID, Influenza, RSV negative --Blood Culture:Negative to date Lactic acid levels normalized with IV fluids Procalcitonin 12.42>>27.32>>3.86 MRSA Negative Blood Cultures: Negative to date Received IV fluids Aspiration precautions Weaned off supplemental oxygen Fever resolved Completed antibiotics NSVT Paroxysmal atrial fibrillation Appreciate Cardiology Input Patient has IVC filter No full anticoagulation as recommended by Cardiology Spontaneously converted to Sinus Was bradycardic and metoprolol was stopped Hypomagnesemia Monitor (4) Elevated troponin: Plan: Likely demand ischemia secondary to above Troponin trended down (5) Decubital ulcer: Plan: Stage II decubitus ulcer Continue wound care Needs follow-up with wound care clinic upon discharge (6) Chronic obstructive pulmonary disease: Plan: No signs of exacerbation Continue home inhalers (7) Diabetes mellitus, type 2: Plan: Hold p.o. medications Continue insulin treatment Glycemic pharmacy on board with glycemic management (8) GERD (gastroesophageal reflux disease): Plan: Continue PPI (9) Intellectual disability: Plan: On risperidone, escitalopram (10) PVD (peripheral vascular disease): Plan: DVT Px: Lovenox SQ Code Status: Full Code PT/OT evaluation noted Patient will need some rehab/SNF Patient is currently medically stable for DC CM working with [facility] regarding dc needs/possible rehab placement Admission and Anticipated Discharge Date Admission Date: January 03, 2022 Subjective Patient seen and examined Patient is a poor historian. Difficulty getting ROS due to intellectual disability No event overnight per RN Physical Exam Constitutional: + well hydrated; no acute distress Eyes: PERRL, conjunctivae normal, anicteric sclerae ENMT: external ear and nose normal, oropharynx normal Respiratory: normal respiratory effort, lungs clear to auscultation Cardiovascular: Rate/Rhythm: regular rate and regular rhythm S1 S2 Gastrointestinal (Abdomen): normal bowel sounds, soft, nontender, no hepatosplenomegaly Musculoskeletal: Trace pedal. Chronic venous stasis changes Neurologic: PERRL, EOMI. Intellectual disability Results & Data Results & Data ([facility]) Vital Signs (Past 12 Hours) Vital Signs Temp Pulse Pulse Pulse Pulse Resp Resp 01/10/22 11:30 36.8 C 80 16 01/10/22 10:42 100 H 95 H 22 01/10/22 08:28 36.5 C 73 18 01/10/22 06:04 19 01/10/22 04:51 19 01/10/22 03:55 36.9 C 82 16 01/10/22 03:00 17 01/10/22 01:53 70 01/10/22 01:00 17 Resp BP BP Pulse Ox Pulse Ox Pulse Ox 01/10/22 11:30 131/68 98 01/10/22 10:42 18 94 96 01/10/22 08:28 93/60 L 93 01/10/22 06:04 95 01/10/22 04:51 97 01/10/22 03:55 108/63 90 01/10/22 03:00 01/10/22 01:53 01/10/22 01:00 96 (1) Pneumonia Laterality: left Lung location: unspecified part of lung Pneumonia type: due to unspecified organism Qualified Code(s): J18.9 - Pneumonia, unspecified organ ism (2) Sepsis Acute respiratory failure type: with hypoxia Sepsis acute organ dysfunction status: with acute organ dysfunction Sepsis type: sepsis due to unspecified organism Severe sepsis acute organ dysfunction type: acute respiratory failure Severe sepsis shock status: unspecified Qualified Code(s): A41.9 - Sepsis, unspecified organism; R65.20 - Severe sepsis without septic shock; J96.01 - Acute respiratory failure with hypoxia (3) Decubital ulcer Pressure injury location: sacral region Pressure injury stage: stage 2 Qualified Code(s): L89.152 - Pressure ulcer of sacral region, stage 2
[2022-01-10] MEDS: SIMVASTATIN 20 MG TAB PO SCH (20:24)
[2022-01-10] MEDS: traZODone HCL 50 MG TAB PO SCH (20:41)
[2022-01-11] MEDS: DOXYCYCLINE HYCLATE 100 MG CAP PO SCH (05:01)
[2022-01-11] MEDS: LORATADINE 10 MG TAB PO SCH (08:09)
[2022-01-11] MEDS: CHOLECALCIFEROL 1,000 UNITS 25 MCG TAB PO SCH (08:09)
[2022-01-11] MEDS: PANTOprazole 40 MG TAB PO SCH (08:09)
[2022-01-11] MEDS: METOCLOPRAMIDE HCL 5 MG TABLET PO SCH ×4 (08:09→20:42)
[2022-01-11] MEDS: ADVANCED PROBIOTIC 1250 MG CAPSULE PO SCH (08:09)
[2022-01-11] MEDS: MAGNESIUM OXIDE 400 MG TAB PO SCH ×2 (08:09→20:42)
[2022-01-11] MEDS: risperiDONE 2 MG TABLET PO SCH ×2 (08:09→20:42)
[2022-01-11] MEDS: ESCITALOPRAM OXALATE 20 MG TAB PO SCH (08:09)
[2022-01-11] MEDS: PENTOXIFYLLINE 400MG EXT REL TAB PO SCH ×3 (08:09→20:42)
[2022-01-11] MEDS: MULTIVITAMIN TAB PO SCH (08:10)
[2022-01-11] MEDS: UMECLIDINIUM BROMIDE 62.5MCG/BLISTER 7 PUFFS/INHALER INH SCH (08:10)
[2022-01-11] MEDS: ARTIFICIAL TEARS OPB SCH ×4 (08:11→20:43)
[2022-01-11] MEDS: ACETAMINOPHEN 325 MG TAB PO PRN ×2 (08:21→15:49)
[2022-01-11] MEDS: clonazePAM 0.5 MG TAB PO SCH ×2 (08:21→20:47)
[2022-01-11 08:32] LABS: BUN Creatinine Ratio 32.1 (10-20); Calcium 8.7 mg/dl (8.5-10.1); Creatinine Clr Calc Pharmacy 91.9 ml/min; Est GFR (African American) 108.3 ml/min; Est GFR (Non-African American) 93.4 ml/min; Magnesium 1.4 mg/dl (1.7-2.4); Potassium 4.3 mmol/L (3.5-5.1)
[2022-01-11] MEDS: INSULIN GLARGINE SOLOSTAR 100 UNITS/ML 3 ML PEN SC SCH (09:24)
[2022-01-11] MEDS: INSULIN ASPART PER UNIT SC SCH ×4 (09:33→20:50)
[2022-01-11] MEDS: ENOXAPARIN INJ 30 MG/0.3 ML SYR SQ SCH (09:37)
--- NOTE | 2022-01-11 10:27 | Pharmacy Report ---
Pharmacy Glycemic Short Note 2 - Date of Service January 11, 2022 - Glycemic Short BSG Results (Last 24 hours): 01/10/22 01/10/22 01/10/22 11:34 16:12 20:35 Glucose POC Glucose 159 H 114 H 83 01/11/22 01/11/22 07:42 08:09 Glucose 207 H POC Glucose 225 H OUTPATIENT ANTIDIABETIC REGIMEN: * Metformin 1000 mg PO qAM, 500 mg PO qPM * Januvia 100 mg PO daily * Glimepiride 4 mg PO BID * HbA1c: 5.6% (01/04/22) ASSESSMENT: 01/11/22 * Patient received total of 41 units of insulin yesterday, of which 16 units were basal * Fasting BSG 207 mg/dL - will continue with 16 units for now (day 2 of dose in crease). Appears patient sensitive to changes with basal. * BSGs trending down throughout the day yesterday, will loosen CR more at lunch time today 01/09/22 * Stressors stable * Hypoglycemia noted yesterday evening after tightened CHO ratio at dinner. However, post-prandial BSG's before lunch was significantly elevated and managed prior with a tighter CHO ratio with breakfast. Will therefore have tighter CHO ratio at breakfast and looser CHO ratio at the other checks * AM fasting BSG trended down significantly after dose increase in Lantus yesterday. Will slightly decrease Lantus to prevent further decline 01/08/22 * Isai received 29 units of insulin yesterday with the majority of BSGs at goal * 15 units Lantus + 14 units novolog * Fasting BSG of 202 mg/dL this morning. Lantus dose was decreased ~17% yesterday. I will slightly increase today. * BSG at bedtime was below goal last evening (70 mg/dL). If this becomes a trend, may consider loosening CF/CR with dinner. 01/07/22 * Patient's BSGs yesterday were 545-795-23-215 mg/dL. * Patient received 43 units of insulin yesterday (18 units of basal and 25 units of bolus). * Fasting today was 94 on PRP and 193 on POC. * Will decrease basal insulin since PRP BSG was much lower than yesterday. * Loosen CF/CR as patient tends to drop throughout the day. Change lower BSG to 80 to prevent rebound hyperglycemia. 01/05/22 * Patient received 37 units of insulin yesterday, 15 units basal, fasting blood sugar 141mg/dl after 3 units of correctional for BSG 208mg/dl overnight * Increase basal slightly, continue CF/CR, pt sensitive to insulin 01/04/22 * BC is a 66 year old male admitted on 01/03/22 with sepsis secondary to suspected multifocal pneumonia * Pharmacy consulted for glycemic management due to lunch BSG of 346 mg/dL * Patient has excellent HbA1c on three oral medications * Will be slightly conservative with initial insulin dosing PLAN FOR INPATIENT GLYCEMIC CONTROL: * Hold outpatient oral diabetes medications * Basal insulin * Lantus 16 units daily * Bolus insulin * NovoLog per scale ACHS or Q6hrs while NPO * Goal Range: Low 80 mg/dL - High 140 mg/dL * Correction Factor: 35-40 mg/dL/unit * CHO ratio: 10 g CHO/unit with breakfast, 16 g CHO/unit with lunch, dinner, bedtime
[2022-01-11] MEDS: guaiFENesin 600 MG TABCR PO SCH ×2 (12:45→23:49)
--- NOTE | 2022-01-11 16:49 | Hospitalist Progress Note ---
Date of Service January 11, 2022 Assessment & Plan (1) Pneumonia: (2) Acute hypoxemic respiratory failure: (3) Sepsis: Plan: Sepsis Multifocal pneumonia --CXR:Large alveolar opacity within the left mid to lower lung most characteristic of pneumonia. --COVID, Influenza, RSV negative --Blood Culture:Negative to date Lactic acid levels normalized with IV fluids Procalcitonin 12.42>>27.32>>3.86 MRSA Negative Blood Cultures: Negative to date Received IV fluids Aspiration precautions Weaned off supplemental oxygen Fever resolved Completed antibiotics NSVT Paroxysmal atrial fibrillation Appreciate Cardiology Input Patient has IVC filter No full anticoagulation as recommended by Cardiology Spontaneously converted to Sinus Was bradycardic and metoprolol was stopped Hypomagnesemia Replete and monitor (4) Elevated troponin: Plan: Likely demand ischemia secondary to above Troponin trended down (5) Decubital ulcer: Plan: Stage II decubitus ulcer Continue wound care Needs follow-up with wound care clinic upon discharge (6) Chronic obstructive pulmonary disease: Plan: No signs of exacerbation Continue home inhalers (7) Diabetes mellitus, type 2: Plan: Hold p.o. medications Continue insulin treatment Glycemic pharmacy on board with glycemic management (8) GERD (gastroesophageal reflux disease): Plan: Continue PPI (9) Intellectual disability: Plan: On risperidone, escitalopram (10) PVD (peripheral vascular disease): Plan: DVT Px: Lovenox SQ Code Status: Full Code PT/OT evaluation noted CM working on placement Admission and Anticipated Discharge Date Admission Date: January 03, 2022 Subjective Patient seen and examined Patient is a poor historian. Reports some pain in knee that improved with tylenol Difficulty getting ROS due to intellectual disability No concern per RN Physical Exam Constitutional: + well hydrated; no acute distress Eyes: PERRL, conjunctivae normal, anicteric sclerae ENMT: external ear and nose normal, oropharynx normal Respiratory: normal respiratory effort, lungs clear to auscultation Cardiovascular: Rate/Rhythm: regular rate and regular rhythm S1 S2 Gastrointestinal (Abdomen): normal bowel sounds, soft, nontender, no hepatosplenomegaly Musculoskeletal: Trace pedal. Chronic venous stasis changes Neurologic: PERRL, EOMI, accommodation nl, no face palsy, no dysarthria Results & Data Results & Data ([facility]) Vital Signs (Past 12 Hours) Vital Signs Temp Pulse Resp BP BP Pulse Ox 01/11/22 15:45 37 C 78 16 98/59 L 93 01/11/22 07:35 36.7 C 66 18 122/72 93 Laboratory Results Abnormal lab results 01/11/22 01/11/22 01/11/22 Range/Units 07:42 08:09 11:59 BUN 25 H (6-23) mg/dl BUN/Creatinine Ratio 32.1 H (10-20) Glucose 207 H (70-99(Fasting)) mg/dl POC Glucose 225 H 236 H (70-99) mg/dl Magnesium 1.4 L (1.7-2.4) mg/dl (1) Pneumonia Laterality: left Lung location: unspecified part of lung Pneumonia type: due to unspecified organism Qualified Code(s): J18.9 - Pneumonia, unspecified organism (2) Sepsis Acute respiratory failure type: with hypoxia Sepsis acute organ dysfunction status: with acute organ dysfunction Sepsis type: sepsis due to unspecified organism Severe sepsis acute organ dysfunction type: acute respiratory failure Severe sepsis shock status: unspecified Qualified Code(s): A41.9 - Sepsis, unspecified organism; R65.20 - Severe sepsis without septic shock; J96.01 - Acute respiratory failure with hypoxia (3) Decubital ulcer Pressure injury location: sacral region Pressure injury stage: stage 2 Q ualified Code(s): L89.152 - Pressure ulcer of sacral region, stage 2
[2022-01-11] MEDS: MAGNESIUM SULFATE / D5W 1 GM/100 ML BAG IV SCH ×2 (19:29→21:32)
[2022-01-11] MEDS: SIMVASTATIN 20 MG TAB PO SCH (20:42)
[2022-01-11] MEDS: traZODone HCL 50 MG TAB PO SCH (20:47)
[2022-01-12] MEDS: clonazePAM 0.5 MG TAB PO SCH ×2 (08:34→21:00)
[2022-01-12] MEDS: METOCLOPRAMIDE HCL 5 MG TABLET PO SCH ×4 (08:34→21:03)
[2022-01-12] MEDS: MAGNESIUM OXIDE 400 MG TAB PO SCH ×2 (08:34→21:02)
[2022-01-12] MEDS: CHOLECALCIFEROL 1,000 UNITS 25 MCG TAB PO SCH (08:35)
[2022-01-12] MEDS: ESCITALOPRAM OXALATE 20 MG TAB PO SCH (08:35)
[2022-01-12] MEDS: PANTOprazole 40 MG TAB PO SCH (08:35)
[2022-01-12] MEDS: ADVANCED PROBIOTIC 1250 MG CAPSULE PO SCH (08:35)
[2022-01-12] MEDS: PENTOXIFYLLINE 400MG EXT REL TAB PO SCH ×3 (08:35→21:01)
[2022-01-12] MEDS: LORATADINE 10 MG TAB PO SCH (08:35)
[2022-01-12] MEDS: risperiDONE 2 MG TABLET PO SCH ×2 (08:35→21:02)
[2022-01-12] MEDS: UMECLIDINIUM BROMIDE 62.5MCG/BLISTER 7 PUFFS/INHALER INH SCH (08:36)
[2022-01-12] MEDS: ARTIFICIAL TEARS OPB SCH ×4 (08:36→20:50)
[2022-01-12] MEDS: ENOXAPARIN INJ 30 MG/0.3 ML SYR SQ SCH (08:36)
[2022-01-12] MEDS: ACETAMINOPHEN 325 MG TAB PO PRN (08:40)
[2022-01-12] MEDS: INSULIN ASPART PER UNIT SC SCH ×4 (08:49→21:00)
[2022-01-12] MEDS: INSULIN GLARGINE SOLOSTAR 100 UNITS/ML 3 ML PEN SC SCH (08:50)
[2022-01-12 09:12] LABS: BUN Creatinine Ratio 37.9 (10-20); Calcium 8.8 mg/dl (8.5-10.1); Creatinine Clr Calc Pharmacy 108.6 ml/min; Magnesium 1.8 mg/dl (1.7-2.4); Phosphorus 4.6 mg/dl (2.5-4.9); Potassium 4.1 mmol/L (3.5-5.1)
[2022-01-12] MEDS: MULTIVITAMIN TAB PO SCH (09:18)
[2022-01-12] MEDS ORDERED: Nursing to Pharmacy Communication SCH (11:30)
[2022-01-12] MEDS: guaiFENesin 600 MG TABCR PO SCH ×2 (11:35→21:04)
--- NOTE | 2022-01-12 12:04 | Hospitalist Progress Note ---
Date of Service January 12, 2022 Assessment & Plan (1) Pneumonia: (2) Acute hypoxemic respiratory failure: (3) Sepsis: Plan: Sepsis Multifocal pneumonia --CXR:Large alveolar opacity within the left mid to lower lung most characteristic of pneumonia. --COVID, Influenza, RSV negative --Blood Culture:Negative to date Lactic acid levels normalized with IV fluids Procalcitonin 12.42>>27.32>>3.86 MRSA Negative Blood Cultures: Negative to date Received IV fluids Aspiration precautions Weaned off supplemental oxygen Fever resolved Completed antibiotics NSVT Paroxysmal atrial fibrillation Appreciate Cardiology Input Patient has IVC filter No full anticoagulation as recommended by Cardiology Spontaneously converted to Sinus Was bradycardic and metoprolol was stopped (4) Elevated troponin: Plan: Likely demand ischemia secondary to above Troponin trended down (5) Decubital ulcer: Plan: Stage II decubitus ulcer Continue wound care Needs follow-up with wound care clinic upon discharge (6) Chronic obstructive pulmonary disease: Plan: No signs of exacerbation Continue home inhalers (7) Diabetes mellitus, type 2: Plan: Hold p.o. medications Continue insulin treatment Hyperglycemic due to patient requesting a lot of snacks/soda. RN to minimize these Glycemic pharmacy on board with glycemic management (8) GERD (gastroesophageal reflux disease): Plan: Continue PPI (9) Intellectual disability: Plan: On risperidone, escitalopram (10) PVD (peripheral vascular disease): Plan: DVT Px: Lovenox SQ Code Status: Full Code PT/OT evaluation noted CM working on placement Admission and Anticipated Discharge Date Admission Date: January 03, 2022 Subjective Patient seen and examined Patient is a poor historian. Difficulty getting ROS due to intellectual disability No concern per RN Physical Exam Constitutional: + well hydrated; no acute distress Eyes: PERRL, conjunctivae normal, anicteric sclerae ENMT: external ear and nose normal, oropharynx normal Respiratory: normal respiratory effort, lungs clear to auscultation Cardiovascular: Rate/Rhythm: regular rate and regular rhythm S1 S2 Gastrointestinal (Abdomen): normal bowel sounds, soft, nontender, no hepatosplenomegaly Musculoskeletal: Trace pedal edema. Chronic stasis changes Neurologic: PERRL, EOMI, accommodation nl, no face palsy, no dysarthria Results & Data Results & Data ([facility]) Vital Signs (Past 12 Hours) Vital Signs Temp Pulse Resp BP Pulse Ox 01/12/22 07:17 36.5 C 60 17 123/64 92 Laboratory Results Abnormal lab results 01/11/22 01/12/22 01/12/22 Range/Units 20:33 08:05 08:17 BUN 25 H (6-23) mg/dl BUN/Creatinine Ratio 37.9 H (10-20) Glucose 176 H (70-99(Fasting)) mg/dl POC Glucose 173 H 185 H (70-99) mg/dl 01/12/22 01/12/22 01/12/22 Range/Units 11:43 11:44 14:07 BUN (6-23) mg/dl BUN/Creatinine Ratio (10-20) Glucose (70-99(Fasting)) mg/dl POC Glucose 349 H* 348 H* 256 H (70-99) mg/dl (1) Pneumonia Laterality: left Lung location: unspecified part of lung Pneumonia type: due to unspecified organism Qualified Code(s): J18.9 - Pneumonia, unspecified organism (2) Sepsis Acute respiratory failure type: with hypoxia Sepsis acute organ dysfunction status: with acute organ dysfunction Sepsis type: sepsis due to unspecified organism Severe sepsis acute organ dysfunction type: acute respiratory failure Severe sepsis shock status: unspecified Qualified Code(s): A41.9 - Sepsis, unspecified organism; R65.20 - Severe sepsis without septic shock; J96.01 - Acute respiratory failure with hypoxia (3) Decubital ulcer Pressure injury location: sacral region Pressure injury stage: stage 2 Qualified Code(s): L89.152 - Pressure ulcer of sacral region, stage 2
--- NOTE | 2022-01-12 15:06 | Pharmacy Report ---
Pharmacy Glycemic Short Note 2 - Date of Service January 12, 2022 - Glycemic Short BSG Results (Last 24 hours): 01/11/22 01/11/22 01/12/22 17:17 20:33 08:05 Glucose POC Glucose 97 173 H 185 H 01/12/22 01/12/22 01/12/22 08:17 11:43 11:44 Glucose 176 H POC Glucose 349 H* 348 H* 01/12/22 14:07 Glucose POC Glucose 256 H OUTPATIENT ANTIDIABETIC REGIMEN: * Metformin 1000 mg PO qAM, 500 mg PO qPM * Januvia 100 mg PO daily * Glimepiride 4 mg PO BID * HbA1c: 5.6% (01/04/22) ASSESSMENT: 01/12/22: * Patient received total 35 units of insulin yesterday; 16 units basal + 19 units bolus * BSGs yesterday were [phone] mg/dl. * Fasting BSG today was 185 mg/dl, continued with same basal dose but tightened Novolog CR slightly at breakfast. * Nurse called with lunch BSG check greater than 300 mg/dl. She reported that patient with intellectual disability and he consumed 4 bowls of crackers before the lunch check. So the high BSG is post-prandial. 01/11/22 * Patient received total of 41 units of insulin yesterday, of which 16 units were basal * Fasting BSG 207 mg/dL - will continue with 16 units for now (day 2 of dose increase). Appears patient sensitive to changes with basal. * BSGs trending down throughout the day yesterday, will loosen CR more at lunch time today 01/09/22 * Stressors stable * Hypoglycemia noted yesterday evening after tightened CHO ratio at dinner. However, post-prandial BSG's before lunch was significantly elevated and managed prior with a tighter CHO ratio with breakfast. Will therefore have tighter CHO ratio at breakfast and looser CHO ratio at the other checks * AM fasting BSG trended down significantly after dose increase in Lantus yesterday. Will slightly decrease Lantus to prevent further decline 01/08/22 * Isai received 29 units of insulin yesterday with the majority of BSGs at goal * 15 units Lantus + 14 units novolog * Fasting BSG of 202 mg/dL this morning. Lantus dose was decreased ~17% yesterday. I will slightly increase today. * BSG at bedtime was below goal last evening (70 mg/dL). If this becomes a trend, may consider loosening CF/CR with dinner. 01/07/22 * Patient's BSGs yesterday were [phone] mg/dL. * Patient received 43 units of insulin yesterday (18 units of basal and 25 units of bolus). * Fasting today was 94 on PRP and 193 on POC. * Will decrease basal insulin since PRP BSG was much lower than yesterday. * Loosen CF/CR as patient tends to drop throughout the day. Change lower BSG to 80 to prevent rebound hyperglycemia. 01/05/22 * Patient received 37 units of insulin yesterday, 15 units basal, fasting blood sugar 141mg/dl after 3 units of correctional for BSG 208mg/dl overnight * Increase basal slightly, continue CF/CR, pt sensitive to insulin 01/04/22 * BC is a 66 year old male admitted on 01/03/22 with sepsis secondary to suspected multifocal pneumonia * Pharmacy consulted for glycemic management due to lunch BSG of 346 mg/dL * Patient has excellent HbA1c on three oral medications * Will be slightly conservative with initial insulin dosing PLAN FOR INPATIENT GLYCEMIC CONTROL: * Hold outpatient oral diabetes medications * Basal insulin * Lantus 16 units daily * Bolus insulin * NovoLog per scale ACHS or Q6hrs while NPO * Goal Range: Low 80 mg/dL - High 140 mg/dL * Correction Factor: 35-40 mg/dL/unit * CHO ratio: 9 g CHO/unit with breakfast, 16 g CHO/unit with lunch, dinner, bedtime
[2022-01-12] MEDS: SIMVASTATIN 20 MG TAB PO SCH (21:02)
[2022-01-12] MEDS: traZODone HCL 50 MG TAB PO SCH (21:03)
[2022-01-13] MEDS ORDERED: Nursing to Pharmacy Communication SCH (08:15)
[2022-01-13] MEDS: LOPERAMIDE HCL 2 MG CAP PO PRN ×2 (08:47→16:46)
[2022-01-13 09:50] LABS: BUN Creatinine Ratio 34.5 (10-20); Calcium 8.5 mg/dl (8.5-10.1); Creatinine Clr Calc Pharmacy 130.3 ml/min; Est GFR (Non-African American) 107.8 ml/min; Potassium 4.6 mmol/L (3.5-5.1)
[2022-01-13] MEDS: ENOXAPARIN INJ 30 MG/0.3 ML SYR SQ SCH (09:57)
[2022-01-13] MEDS: MAGNESIUM OXIDE 400 MG TAB PO SCH ×2 (09:57→20:02)
[2022-01-13] MEDS: guaiFENesin 600 MG TABCR PO SCH ×2 (09:57→20:01)
[2022-01-13] MEDS: MULTIVITAMIN TAB PO SCH (09:57)
[2022-01-13] MEDS: PENTOXIFYLLINE 400MG EXT REL TAB PO SCH ×3 (09:57→20:02)
[2022-01-13] MEDS: ACETAMINOPHEN 325 MG TAB PO PRN ×3 (09:57→23:41)
[2022-01-13] MEDS: LORATADINE 10 MG TAB PO SCH (09:57)
[2022-01-13] MEDS: ADVANCED PROBIOTIC 1250 MG CAPSULE PO SCH (09:57)
[2022-01-13] MEDS: risperiDONE 2 MG TABLET PO SCH ×2 (09:58→20:02)
[2022-01-13] MEDS: PANTOprazole 40 MG TAB PO SCH (09:58)
[2022-01-13] MEDS: ARTIFICIAL TEARS OPB SCH ×4 (09:58→20:01)
[2022-01-13] MEDS: ESCITALOPRAM OXALATE 20 MG TAB PO SCH (09:58)
[2022-01-13] MEDS: CHOLECALCIFEROL 1,000 UNITS 25 MCG TAB PO SCH (09:58)
[2022-01-13] MEDS: METOCLOPRAMIDE HCL 5 MG TABLET PO SCH ×4 (09:58→20:03)
[2022-01-13] MEDS: clonazePAM 0.5 MG TAB PO SCH ×2 (09:59→20:01)
[2022-01-13] MEDS: UMECLIDINIUM BROMIDE 62.5MCG/BLISTER 7 PUFFS/INHALER INH SCH (10:00)
[2022-01-13] MEDS: INSULIN GLARGINE SOLOSTAR 100 UNITS/ML 3 ML PEN SC SCH (10:07)
[2022-01-13] MEDS: INSULIN ASPART PER UNIT SC SCH ×5 (10:08→20:15)
--- NOTE | 2022-01-13 15:00 | Hospitalist Progress Note ---
Date of Service January 13, 2022 Assessment & Plan (1) Pneumonia: (2) Acute hypoxemic respiratory failure: (3) Sepsis: Plan: Sepsis Multifocal pneumonia --CXR:Large alveolar opacity within the left mid to lower lung most characteristic of pneumonia. --COVID, Influenza, RSV negative --Blood Culture:Negative to date Lactic acid levels normalized with IV fluids Procalcitonin 12.42>>27.32>>3.86 MRSA Negative Blood Cultures: Negative to date Received IV fluids Aspiration precautions Weaned off supplemental oxygen Fever resolved Completed antibiotics NSVT Paroxysmal atrial fibrillation Appreciate Cardiology Input Patient has IVC filter No full anticoagulation as recommended by Cardiology Spontaneously converted to Sinus Was bradycardic and metoprolol was stopped (4) Elevated troponin: Plan: Likely demand ischemia secondary to above Troponin trended down (5) Decubital ulcer: Plan: Stage II decubitus ulcer Continue wound care Needs follow-up with wound care clinic upon discharge (6) Chronic obstructive pulmonary disease: Plan: No signs of exacerbation Continue home inhalers (7) Diabetes mellitus, type 2: Plan: Hold p.o. medications Continue insulin treatment Hyperglycemic due to patient requesting a lot of snacks/soda. RN to minimize these Glycemic pharmacy on board with glycemic management (8) GERD (gastroesophageal reflux disease): Plan: Continue PPI (9) Intellectual disability: Plan: On risperidone, escitalopram (10) PVD (peripheral vascular disease): Plan: DVT Px: Lovenox SQ Left knee pain Patient does have OA from old XRays Tylenol prn Code Status: Full Code PT/OT evaluation noted CM working on placement Admission and Anticipated Discharge Date Admission Date: January 03, 2022 Subjective Patient seen and examined Patient is a poor historian. Though ROS is usually difficult to obtain, he was able to report some left knee pain RN reported some loose stools in the past 24h. C diff is negative. Home loperamide resumed Physical Exam Constitutional: + well hydrated; no acute distress Eyes: PERRL, conjunctivae normal, anicteric sclerae ENMT: external ear and nose normal, oropharynx normal Respiratory: normal respiratory effort, lungs clear to auscultation Cardiovascular: Rate/Rhythm: regular rate and regular rhythm S1 S2 Gastrointestinal (Abdomen): normal bowel sounds, soft, nontender, no hepatosplenomegaly Musculoskeletal: Chronic stasis changes No erythema/swelling/tenderness of right knee Neurologic: PERRL, EOMI, accommodation nl, no face palsy, no dysarthria Results & Data Results & Data ([facility]) Vital Signs (Past 12 Hours) Vital Signs Temp Pulse Resp BP BP Pulse Ox 01/13/22 13:54 36.5 C 76 17 114/62 94 01/13/22 07:09 36.8 C 63 18 101/57 L 92 Laboratory Results Abnormal lab results 01/12/22 01/13/22 01/13/22 Range/Units 20:28 08:04 09:13 Sodium 130 L (136-145) mmol/L Creatinine 0.55 L (0.6-1.4) mg/dl BUN/Creatinine Ratio 34.5 H (10-20) Glucose 269 H (70-99(Fasting)) mg/dl POC Glucose 107 H 159 H (70-99) mg/dl 01/13/22 Range/Units 12:11 Sodium (136-145) mmol/L Creatinine (0.6-1.4) mg/dl BUN/Creatinine Ratio (10-20) Glucose (70-99(Fasting)) mg/dl POC Glucose 219 H (70-99) mg/dl (1) Sepsis Acute respiratory failure type: with hypoxia Sepsis acute organ dysfunction status: with acute organ dysfunction Sepsis type: sepsis due to unspecified organism Severe sepsis acute organ dysfunction type: acute respiratory failure Severe sepsis shock status: unspecified Qualified Code(s): A41.9 - Sepsis, unspecified organism; R65.20 - Severe sepsis without septic shock; J96.01 - Acute respiratory failure with hypoxia (2) Decubital ulcer Pressure injury location: sacral region Pressure injury stage: stage 2 Qualified Code(s): L89.152 - Pressure ulcer of sacral region, stage 2 (3) Pneumonia Laterality: left Lung location: unspecified part of lung Pneumonia type: due to unspecified organism Qualified Code(s): J18.9 - Pneumonia, unspecified organism
[2022-01-13] MEDS: traZODone HCL 50 MG TAB PO SCH (20:01)
[2022-01-13] MEDS: SIMVASTATIN 20 MG TAB PO SCH (20:03)
[2022-01-14] MEDS: LOPERAMIDE HCL 2 MG CAP PO PRN (07:49)
[2022-01-14] MEDS: ACETAMINOPHEN 325 MG TAB PO PRN ×2 (07:53→13:27)
[2022-01-14] MEDS: INSULIN ASPART PER UNIT SC SCH ×4 (09:08→20:31)
[2022-01-14] MEDS ORDERED: INSULIN ASPART PER UNIT SC PRN (09:08)
[2022-01-14] MEDS: INSULIN GLARGINE SOLOSTAR 100 UNITS/ML 3 ML PEN SC SCH (09:09)
--- NOTE | 2022-01-14 09:15 | Pharmacy Report ---
Pharmacy Glycemic Short Note 2 - Date of Service January 14, 2022 - Glycemic Short BSG Results (Last 24 hours): 01/13/22 01/13/22 01/13/22 09:13 12:11 17:11 Glucose 269 H POC Glucose 219 H 87 01/13/22 01/14/22 01/14/22 20:05 08:08 08:09 Glucose POC Glucose 145 H 403 H* 417 H* OUTPATIENT ANTIDIABETIC REGIMEN: * Metformin 1000 mg PO qAM, 500 mg PO qPM * Januvia 100 mg PO daily * Glimepiride 4 mg PO BID * HbA1c: 5.6% (01/04/22) ASSESSMENT: 01/14/22: * BSGs yesterday of 159, 219, 87, and 145 mg/dL * Received 33 units of insulin (16 units of Lantus and 17 units of prandial/correctional Novolog) * Unfortunately, BSG is 417 mg/dL this morning, although not a true fasting BSG * Per RN, patient ate many packs of soda crackers overnight * Will add PRN Novolog order today to cover snacks/although snacking should be discouraged as best as possible * BSG of 56 mg/dL at lunch, likely overcorrected AM BSG - patient asymptomatic per RN 01/12/22: * Patient received total 35 units of insulin yesterday; 16 units basal + 19 units bolus * BSGs yesterday were 692-904-24-173 mg/dl. * Fasting BSG today was 185 mg/dl, continued with same basal dose but tightened Novolog CR slightly at breakfast. * Nurse called with lunch BSG check greater than 300 mg/dl. She reported that patient with intellectual disability and he consumed 4 bowls of crackers before the lunch check. So the high BSG is post-prandial. 01/11/22 * Patient received total of 41 units of insulin yesterday, of which 16 units were basal * Fasting BSG 207 mg/dL - will continue with 16 units for now (day 2 of dose increase). Appears patient sensitive to changes with basal. * BSGs trending down throughout the day yesterday, will loosen CR more at lunch time today Background: * BC is a 66 year old male admitted on 01/03/22 with sepsis secondary to suspected multifocal pneumonia * Pharmacy consulted for glycemic management due to lunch BSG of 346 mg/dL * Patient has excellent HbA1c on three oral medications * Will be slightly conservative with initial insulin dosing PLAN FOR INPATIENT GLYCEMIC CONTROL: * Hold outpatient oral diabetes medications * Basal insulin * Lantus 16 units daily * Bolus insulin * NovoLog per scale ACHS or Q6hrs while NPO * Goal Range: Low 80 mg/dL - High 140 mg/dL * Correction Factor: 35-40 mg/dL/unit * CHO ratio: 9 g CHO/unit with breakfast, 16 g CHO/unit with lunch, dinner, bedtime * PRN order added to cover soda crackers/snacks using CHO ratio of 12 g CHO/unit
[2022-01-14] MEDS: risperiDONE 2 MG TABLET PO SCH ×2 (09:16→20:17)
[2022-01-14] MEDS: MAGNESIUM OXIDE 400 MG TAB PO SCH ×2 (09:17→20:17)
[2022-01-14] MEDS: PENTOXIFYLLINE 400MG EXT REL TAB PO SCH ×3 (09:17→20:17)
[2022-01-14] MEDS: LORATADINE 10 MG TAB PO SCH (09:17)
[2022-01-14] MEDS: MULTIVITAMIN TAB PO SCH (09:17)
[2022-01-14] MEDS: PANTOprazole 40 MG TAB PO SCH (09:17)
[2022-01-14] MEDS: CHOLECALCIFEROL 1,000 UNITS 25 MCG TAB PO SCH (09:18)
[2022-01-14] MEDS: guaiFENesin 600 MG TABCR PO SCH ×2 (09:18→20:16)
[2022-01-14] MEDS: ADVANCED PROBIOTIC 1250 MG CAPSULE PO SCH (09:18)
[2022-01-14] MEDS: ESCITALOPRAM OXALATE 20 MG TAB PO SCH (09:18)
[2022-01-14] MEDS: METOCLOPRAMIDE HCL 5 MG TABLET PO SCH ×4 (09:19→20:17)
[2022-01-14] MEDS: ENOXAPARIN INJ 30 MG/0.3 ML SYR SQ SCH (09:19)
[2022-01-14] MEDS: clonazePAM 0.5 MG TAB PO SCH ×2 (09:19→20:16)
[2022-01-14] MEDS: ARTIFICIAL TEARS OPB SCH ×4 (09:20→20:16)
[2022-01-14] MEDS: UMECLIDINIUM BROMIDE 62.5MCG/BLISTER 7 PUFFS/INHALER INH SCH (09:20)
[2022-01-14] MEDS: CARBOHYDRATES FOR HYPOGLYCEMIA PO PRN (12:15)
--- NOTE | 2022-01-14 13:26 | Hospitalist Progress Note ---
Date of Service January 14, 2022 Assessment & Plan (1) Pneumonia: (2) Acute hypoxemic respiratory failure: (3) Sepsis: Plan: Sepsis Multifocal pneumonia --CXR:Large alveolar opacity within the left mid to lower lung most characteristic of pneumonia. --COVID, Influenza, RSV negative --Blood Culture:Negative to date Lactic acid levels normalized with IV fluids Procalcitonin 12.42>>27.32>>3.86 MRSA Negative Blood Cultures: Negative to date Received IV fluids Aspiration precautions Weaned off supplemental oxygen Fever resolved Completed antibiotics NSVT Paroxysmal atrial fibrillation Appreciate Cardiology Input Patient has IVC filter No full anticoagulation as recommended by Cardiology Spontaneously converted to Sinus Was bradycardic and metoprolol was stopped (4) Elevated troponin: Plan: Likely demand ischemia secondary to above Troponin trended down (5) Decubital ulcer: Plan: Stage II decubitus ulcer Continue wound care Needs follow-up with wound care clinic upon discharge (6) Chronic obstructive pulmonary disease: Plan: No signs of exacerbation Continue home inhalers (7) Diabetes mellitus, type 2: Plan: Hold p.o. medications Continue insulin treatment Hyperglycemic due to patient requesting a lot of snacks/soda.Discussed with RN to moderate this Glycemic pharmacy on board with glycemic management (8) GERD (gastroesophageal reflux disease): Plan: Continue PPI (9) Intellectual disability: Plan: On risperidone, escitalopram (10) PVD (peripheral vascular disease): Plan: DVT Px: Lovenox SQ Left knee pain Patient does have OA from old XRays Tylenol prn Code Status: Full Code PT/OT evaluation noted CM working on placement Admission and Anticipated Discharge Date Admission Date: January 03, 2022 Subjective Patient seen and examined Patient is a poor historian. Difficulty getting ROS due to intellectual disability No concern per RN Physical Exam Constitutional: + well hydrated; no acute distress Eyes: PERRL, conjunctivae normal, anicteric sclerae ENMT: external ear and nose normal, oropharynx normal Respiratory: normal respiratory effort, lungs clear to auscultation Cardiovascular: Rate/Rhythm: regular rate and regular rhythm S1 S2 Gastrointestinal (Abdomen): normal bowel sounds, soft, nontender, no hepatosplenomegaly Musculoskeletal: Chronic stasis changes Trace pedal edema Neurologic: PERRL, EOMI, accommodation nl, no face palsy, no dysarthria Results & Data Results & Data ([facility]) Vital Signs (Past 12 Hours) Vital Signs Temp Pulse Resp BP Pulse Ox 01/14/22 07:22 36.8 C 75 16 105/58 L 93 Laboratory Results Abnormal lab results 01/13/22 01/14/22 01/14/22 Range/Units 20:05 08:08 08:09 POC Glucose 145 H 403 H* 417 H* (70-99) mg/dl 01/14/22 01/14/22 Range/Units 12:11 12:12 POC Glucose 56 L* 57 L* (70-99) mg/dl (1) Pneumonia Laterality: left Lung location: unspecified part of lung Pneumonia type: due to unspecified organism Qualified Code(s): J18.9 - Pneumonia, unspecified organism (2) Sepsis Acute respiratory failure type: with hypoxia Sepsis acute organ dysfunction status: with acute organ dysfunction Sepsis type: sepsis due to unspecified organism Severe sepsis acute organ dysfunction type: acute respiratory failure Severe sepsis shock status: unspecified Qualified Code(s): A41.9 - Sepsis, unspecified organism; R65.20 - Severe sepsis without septic shock; J96.01 - Acute respiratory failure with hypoxia (3) Decubital ulcer Pressure injury location: sacral region Pressure injury stage: stage 2 Qualified Code(s): L89.152 - Pressure ulcer of sacral region, stage 2
[2022-01-14] MEDS: traZODone HCL 50 MG TAB PO SCH (20:17)
[2022-01-14] MEDS: SIMVASTATIN 20 MG TAB PO SCH (20:17)
[2022-01-15] MEDS: ACETAMINOPHEN 325 MG TAB PO PRN ×2 (00:08→09:34)
[2022-01-15 07:44] VITALS: TEMP 97.9
[2022-01-15] MEDS: METOCLOPRAMIDE HCL 5 MG TABLET PO SCH ×3 (09:33→17:34)
[2022-01-15] MEDS: INSULIN GLARGINE SOLOSTAR 100 UNITS/ML 3 ML PEN SC SCH (09:46)
[2022-01-15] MEDS: INSULIN ASPART PER UNIT SC SCH ×3 (09:47→17:34)
[2022-01-15] MEDS: UMECLIDINIUM BROMIDE 62.5MCG/BLISTER 7 PUFFS/INHALER INH SCH (09:53)
[2022-01-15] MEDS: clonazePAM 0.5 MG TAB PO SCH (09:57)
[2022-01-15] MEDS: CHOLECALCIFEROL 1,000 UNITS 25 MCG TAB PO SCH (09:57)
[2022-01-15] MEDS: ENOXAPARIN INJ 30 MG/0.3 ML SYR SQ SCH (09:57)
[2022-01-15] MEDS: ARTIFICIAL TEARS OPB SCH ×3 (09:58→17:35)
[2022-01-15] MEDS: ESCITALOPRAM OXALATE 20 MG TAB PO SCH (09:59)
[2022-01-15] MEDS: guaiFENesin 600 MG TABCR PO SCH (09:59)
[2022-01-15] MEDS: ADVANCED PROBIOTIC 1250 MG CAPSULE PO SCH (09:59)
[2022-01-15] MEDS: MULTIVITAMIN TAB PO SCH (10:00)
[2022-01-15] MEDS: PANTOprazole 40 MG TAB PO SCH (10:00)
[2022-01-15] MEDS: LORATADINE 10 MG TAB PO SCH (10:00)
[2022-01-15] MEDS: MAGNESIUM OXIDE 400 MG TAB PO SCH (10:00)
[2022-01-15] MEDS: risperiDONE 2 MG TABLET PO SCH (10:01)
[2022-01-15] MEDS: PENTOXIFYLLINE 400MG EXT REL TAB PO SCH ×2 (10:01→12:59)
[2022-01-15 11:06] VITALS: O2SAT 95
--- NOTE | 2022-01-15 14:50 | Discharge Summary ---
Date of Service January 15, 2022 Admission HPI Per Admitting Provider This is a 66 y/o male with a PMH of intellectual disability, DM2, COPD, PVD, TRINIDAD, GERD, chronic stasis dermatitis, hearing loss, osteoporosis, and valvular heart disease (mild MR/TR/Aortic Stenosis) who presents to the ED today from his snf with new-onset cough, lethargy, and abnormal vital signs including hypoxia. History obtained from both the patient and his caregiver at the bedside. Pt was apparently in his usual state of health yesterday - had a visit with his PCP, went out to eat, and was interacting as per usual. This morning when he woke up, he had developed a cough with some questionable wheezing. His AM vital signs revealed hypotension, tachycardia, and hypoxia so EMS was called. Pt was also noted to be more lethargic this usual. Temp this AM was 98.8F and pt did not c/o any chills or sweats. He has not had any vomiting, diarrhea, or loss of appetite. There was no known aspiration episode. He has not been complaining of any more pain than usual. Pt did have a radial shaft fracture earlier this year that did not heal with non-operative management so he underwent surgical intervention in November. He was wearing a splint, which has rubbed the webspace of his left hand to the point that he now has an open wound. He also has a known stage II decubitus ulcer on his buttock. He had been referred to wound care for both of these issues and was to be seen today. Caregiver reports that they saw orthopedics this week who said that pt could discontinue the splint. Pt does have a history of pneumonia with most recent episode in February 2021. Pt also has a hx of MRSA per outpt records. NOTE: Caregiver from his snf states that pt makes all of his own medical decisions and there is no POA or living will on file. He does have a brother but he is only listed as "next of kin" in their records. Principal Diagnosis Constitutional: + thin and + frail appearing; no acute d istress Eyes: PERRL, conjunctivae normal, anicteric sclerae Neck: trachea midline Respiratory: no respiratory distress and no labored breathing Auscultation: + crackles (left mid to lower lung); no wheezes otherwise clear Cardiovascular: Rate/Rhythm: regular rhythm and + tachycardic Heart Sounds: + murmur Vessels: posterior tibial pulses present and radial pulses present Extremities: no pedal edema Gastrointestinal (Abdomen): Inspection/Auscultation: normal bowel sounds; abdomen not distended Percussion/Palpation: abdomen soft; abdomen nontender Musculoskeletal: Head/Neck/Chest: normocephalic, head atraumatic and neck supple Skin: chronic stasis changes bilateral LE. Ulcer webspace of left hand - dressing applied by nursing. stage 2 ulcer right sacral area Neurologic: moves all extremities; no focal motor deficits Discharge Exam Constitutional + well hydrated; no acute distress Eyes PERRL, conjunctivae normal, anicteric sclerae ENMT external ear and nose normal, oropharynx normal Respiratory normal respiratory effort, lungs clear to auscultation Cardiovascular Rate/Rhythm: regular rate and regular rhythm S1 S2 Gastrointestinal (Abdomen) normal bowel sounds, soft, nontender, no hepatosplenomegaly Musculoskeletal Chronic stasis changes Trace pedal edema Neurologic PERRL, EOMI, accommodation nl, no face palsy, no dysarthria Discharge Data Allergies Allergy/AdvReac Type Severity Reaction Status Date / Time lactose Allergy Intermediate GI SYMPTOMS Verified 01/03/22 08:18 aspirin Allergy Unknown UNKNOWN Verified 01/03/22 08:06 REACTION cephalexin Allergy Unknown UNKNOWN Verified 01/03/22 08:06 REACTION Cephalosporins Allergy Unknown UNKNOWN Verified 01/03/22 08:18 REACTION Corticosteroids Allergy Unknown UNKNOWN Verified 01/03/22 08:06 (Glucocorticoids) REACTION methylprednisolone Allergy Unknown UNKNOWN Verified 01/03/22 08:06 REACTION shellfish derived Allergy Unknown UNKNOWN Verified 01/03/22 08:18 REACTION Consultations 01/03/22 08:23 ED Decision to Admit Stat 01/04/22 21:44 Consult Cardiology Routine Hospital Course (1) Pneumonia: (2) Acute hypoxemic respiratory failure: (3) Sepsis: Sepsis Multifocal pneumonia --CXR:Large alveolar opacity within the left mid to lower lung most characteristic of pneumonia. --COVID, Influenza, RSV negative --Blood Culture:Negative to date Lactic acid levels normalized with IV fluids Procalcitonin 12.42>>27.32>>3.86 MRSA Negative Blood Cultures: Negative to date Received IV fluids Aspiration precautions Weaned off supplemental oxygen Fever resolved Completed antibiotics NSVT Paroxysmal atrial fibrillation Appreciate Cardiology Input Patient has IVC filter No full anticoagulation as recommended by Cardiology Spontaneously converted to Sinus (4) Elevated troponin: Likely demand ischemia secondary to above Troponin trended down (5) Decubital ulcer: Stage II decubitus ulcer Healing well Continue care (6) Chronic obstructive pulmonary disease: No signs of exacerbation Continue home inhalers (7) Diabetes mellitus, type 2: Continue home antidiabetics (8) GERD (gastroesophageal reflux disease): Continue PPI (9) Intellectual disability: On risperidone, escitalopram (10) PVD (peripheral vascular disease): Total Time Total Time Spent Total Time Spent (In Minutes): 45 Total Time Includes: Examination of the Patient, Discharge Planning and Medication Reconciliation Discharge Plan Discharge Items Patient Disposition: Transfer Inpatient Rehab Fac Reason For Visit: SEPSIS, PNEUMONIA, HYPOXIA Discharge Diagnosis: Sepsis Multifocal pneumonia Activity: As commented below Activity Comment: Per physical therapy instructions Non-emergency contact: Primary Care Provider Call non-emergency contact if: you have any medication questions and your s ymptoms worsen Follow-up/Referrals: Andrew Montague MD [Primary Care Provider] - 01/16/22 2:00 pm (Date & Time 01/16/2022 2:00 PM Provider Andrew Montague III, MD Department [facility] ) Diet: Carb Consistent or DM2 and Heart Healthy Addtl Attending Provider Instructions: Mr Enoch Jensen were brought to the hospital for cough and lethargy. You were evaluated and managed for sepsis and pneumonia. You also required oxygen for sometime but has been successfully weaned off. You completed treatment while inpatient. You are being discharged to rehab. Please continue medications as prescribed. Please follow up with your Primary Doctor It was a pleasure taking care of you. Pending Studies at Discharge: No Stand-Alone Forms: My [facility] Skilled Items Patient informed of condition?: Yes DNR: No Discharge Level of Care: Acute rehab Communicable Disease: No Discharge Prognosis: Stable Lines: None Urinary Catheter: No Medications and DC Order Prescriptions: Continued trazodone 50 mg Tablet 50 mg PO HS RF: 0 loperamide [Imodium A-D] 2 mg Tablet 2 mg PO UD PRN (Reason: Diarrhea) RF: 0 simvastatin [Zocor] 40 mg Tablet 40 mg PO HS RF: 0 metoclopramide HCl [Reglan] 5 mg Tablet 5 mg PO ACHS RF: 0 albuterol sulfate [ProAir HFA] 90 mcg/actuation Hfa Aerosol Inhaler 2 puff INHALATION Q4H PRN (Reason: Shortness Of Breath) RF: 0 cholecalciferol (vitamin D3) [Vitamin D3] 1,000 unit Capsule 1,000 unit PO QAM RF: 0 Januvia 100 mg tablet 100 mg PO QAM RF: 0 omeprazole 20 mg Tablet,Delayed Release (Dr/Ec) 20 mg PO QAM RF: 0 guaifenesin [Mucinex] 600 mg Tablet Extended Release 12hr 600 mg PO Q12H RF: 0 magnesium oxide 400 mg magnesium Tablet 400 mg PO BID RF: 0 pentoxifylline 400 mg tablet extended release 400 mg PO TID RF: 0 loratadine [Claritin] 10 mg Tablet 10 mg PO QAM RF: 0 Incruse Ellipta 62.5 mcg/actuation blister with device 1 inh INHALATION QAM RF: 0 multivitamin [Daily-Shaka] Tablet 1 tab PO QAM Qty: 0 RF: 0 clonazepam 0.5 mg Tablet 0.5 mg PO BID RF: 0 glimepiride 4 mg Tablet 4 mg PO BID RF: 0 calcium carbonate 500 mg calcium (1,250 mg) Tablet,Chewable 500 mg PO BID RF: 0 alum-mag hydroxide-simeth 200-200-20 mg/5 mL Suspension 30 ml PO QPM RF: 0 acetaminophen [Arthritis Pain Reliever] 650 mg Tablet Extended Release 650 mg PO AMHS MDD 3gm/24hr RF: 0 escitalopram oxalate 20 mg tablet 20 mg PO QAM RF: 0 metformin 500 mg tablet extended release 24 hr 500 - 1,000 mg PO BIDM RF: 0 mupirocin 2 % ointment 1 applic TOPICAL BID RF: 0 risperidone 2 mg tablet 2 mg PO BID RF: 0 guaifenesin [Siltussin SA] 100 mg/5 mL Liquid 200 mg PO TID PRN (Reason: Cough) RF: 0 Systane Gel 0.3 % Gel 1 drp OPB QID RF: 0 Discharge Orders: Discharge Order (Routine); Ordered 01/15/22 Ordered By: Galilea Parham Admission Data Admit Date/Time: 01/03/22 09:16 Attending Provider: Galilea Parham I. Admit Provider: Bebe Whiting Primary Care Provider: Andrew Montague Other Providers: [facility] ; Tab Martin ; Jef Muro ; Andrew Becker ; Delonte Saldivar ; Juan Daniel Myers ; Rome Stein ; Aditya Conte ; Jenn Fraser ; Karlee Gray ; Natasha Avery ; Inocente Gale Other Interventions: Discharge Summary Assessment (RN) Last Done: 01/15/22 13:35
[2022-01-15 15:06] VITALS: BP 100/59; PULSE 72
[2022-01-15] MEDS: CARBOHYDRATES FOR HYPOGLYCEMIA PO PRN (17:28)
== END 2022-01-15 18:12 | DRG 871 ==
LOC: ED 06:37 → SUATTDRO 09:16 → 2S 09:16 → 3W 01-10 18:14

== ENCOUNTER 2022-05-01 08:08 | Inpatient (IN) ==
--- NOTE | 2022-05-01 08:39 | Emergency Department Note ---
Impression & Plan Fracture of pubic ramus, Ambulatory dysfunction, Hyponatremia, Fall ED Provider Note NAME: JIMMY MABRY AGE: 66 SEX: M : 1955 ARRIVES VIA: Ambulance INFORMANT: Patient, ED PROVIDER(S): Ronaldo Rodrigues MD Chief Complaint: Fall HPI: Patient presents from skills with the caregiver and the patient had a repor estephania unwitnessed fall this morning. This was from standing presumptively but this was unwitnessed. The patient does complain of some left hip and femur pain. Patient does not take any blood thinning medications. Patient reportedly has prior history of broken femur in the past. Patient did not take anything for pain prior to arrival. History is somewhat limited given the patient's history of CP and intellectual disability. ROS: Limited given the patient's history of cerebral palsy and intellectual disability. Past medical history: See below Surgical history: See below Social history: See below Physical Exam: GENERAL: NAD, wearing glasses, wearing a mask, non-toxic. EYE EXAM: Normal conjunctiva. PERRL, no anisocoria and EOM's grossly intact w/o pain. Head: Normocephalic/atraumatic, more pronounced occiput. No obvious deformity. OROPHARYNX: Moist mucus membranes. Grossly normal dentition. NECK: Supple, no nuchal rigidity, no adenopathy, non-tender. No signs of meningismus. No midline C-spine TTP. Chest: No reproducible chest wall pain LUNGS: Clear to auscultation. Normal chest wall mechanics. HEART: NSR, no MRG. ABDOMEN: Abdomen soft, non-tender, normo-active bowel sounds, no masses, no rebound or guarding. BACK: No CVA TTP. SKIN: No rashes and no bruising. UPPER EXTREMITIES: Upper extremities are grossly normal. No TTP or obvious deformity. LOWER EXTREMITIES: Pain to left proximal hip/pelvis and femur area, no obvious deformity, small bruise to distal anterior portion of femur but soft compartments neurovascular intact distally but decreased range of motion seco ndary to pain NEURO EXAM: A&O x3, cranial nerves II-XII grossly intact, normal speech, moves all 4 extremities on command w/o issue. Good finger to nose, no drift, no sensory deficits. Differential diagnoses: Course: Patient was seen and evaluated the bedside. Full history physical exam was per formed. EKG interpreted by me Normal sinus rhythm, rate of 74, normal intervals, normal axis, no obvious ST elevations Imaging Studies: See Below Cardiac monitoring: An order was placed for continuous cardiac monitoring. The monitor shows a rate of 72 with regular rhythm. MDM: Patient did have a CT ordered of the head and the patient also had plain films completed of the pelvis left hip and femur. CT had negative. The patient's plain films do show concern for pubic rami fractures. The patient does walk with a walker at baseline. I did speak with Dr. Ledbetter with [facility] stated the patient may be weightbearing as tolerated but if he was unable to do so may benefit from admission PT OT and orthopedic consultation. The patient was attempted with an ambulatory trial but was unsuccessful. I did speak to the on-call hospitalist when CHERELLE Lynn and the patient was admitted by Dr. Yanes. Blood work was ordered along with COVID swab. Patient has a normal white counts with mild anemia with hemoglobin of 10. Patient's platelet count is unremarkable. Kidney function with prerenal azotemia. Patient's hemoglobin is chronic and stable COVID-negative. As the patient was unable to ambulate appropriately I did message Kin Gusman PA-C with orthopedics. He is aware the patient will be admitted inpatient. Past Med/Surg History Medical History Anxiety Aortic stenosis Mild per 09/2021 ECHO CAP (community acquired pneumonia) Cerebral palsy Chronic obstructive pulmonary disease Well controlled > hasnt used res inh for 2 yrs Depression Diabetes mellitus, type 2 DJD (degenerative joint disease) Femoral condyle fracture GERD (gastroesophageal reflux disease) History of COVID-19 Tested positive 09/21/21 [facility] ([facility] Sinus congestion only. no hospitalization. No current problems. Hospital-acquired pneumonia Hyperlipidemia Hypotension Intellectual disability Lives at [facility] facility Neuropathy TRINIDAD (obstructive sleep apnea) Per records Osteoporosis Peroneal palsy Presence of IVC filter Placed in 1997 per records PVD (peripheral vascular disease) Scoliosis Tibia fracture TMJ (temporomandibular joint disorder) Venous insufficiency Surgical History History of cholecystectomy History of colonoscopy History of tooth extraction S/P cataract surgery Left and Right Family History Father Coronary heart disease Social History Smoking Status: Never smoker Second Hand Exposure: No; Hx Alcohol Use: No Hx Substance Use: No Preferred Language: French Communication Ability: Impaired Communication Tools: Other Visual Impairment: No Limitations Hearing Ability: Use of Hearing Aid Liquefaction And Regasification Helper Required: No Beliefs That Will Affect Care: None marital status: Single marital status details: Skills Current Living Situation: Personal Care Facility Current Living Situation Comment: alf with Skills > with caregivers current occupational status: disabled How many Children do You have: 0 Feels Safe at Home: Yes caffeine: No Assistive Devices: Denture - Upper, Hearing Aid - Bilateral, Special Shoe and Walker Allergies Allergies Allergy/AdvReac Type Severity Reaction Status Date / Time lactose Allergy Intermediate GI SYMPTOMS Verified 04/08/22 09:04 aspirin Allergy Unknown UNKNOWN Verified 04/08/22 09:04 REACTION cephalexin Allergy Unknown UNKNOWN Verified 04/08/22 09:04 REACTION Cephalosporins Allergy Unknown UNKNOWN Verified 04/08/22 09:04 REACTION Corticosteroids Allergy Unknown UNKNOWN Verified 04/08/22 09:04 (Glucocorticoids) REACTION methylprednisolone Allergy Unknown UNKNOWN Verified 04/08/22 09:04 REACTION shellfish derived Allergy Unknown UNKNOWN Verified 04/08/22 09:04 REACTION Home Meds Home Medications Medication Instructions Recorded Confirmed albuterol sulfate 90 mcg/actuation 2 puff INHALATION Q4H PRN 12/23/18 05/01/22 aerosol inhaler (ProAir HFA) cholecalciferol (vitamin D3) 25 1,000 unit PO QAM 12/23/18 05/01/22 mcg (1,000 unit) capsule (Vitamin D3) guaifenesin 600 mg tablet, 600 mg PO Q12H 12/23/18 05/01/22 extended release 12 hr (Mucinex) loperamide 2 mg tablet (Imodium 2 mg PO UD PRN 12/23/18 05/01/22 A-D) magnesium oxide 400 mg PO BID 12/23/18 05/01/22 metoclopramide HCl 5 mg tablet 5 mg PO ACHS 12/23/18 05/01/22 (Reglan) omeprazole 20 mg tablet,delayed 20 mg PO QAM 12/23/18 05/01/22 release simvastatin 40 mg tablet (Zocor) 40 mg PO HS 12/23/18 05/01/22 sitagliptin 100 mg tablet (Januvia) 100 mg PO QAM 12/23/18 05/01/22 trazodone 50 mg tablet 50 mg PO HS 12/23/18 05/01/22 loratadine 10 mg tablet (Claritin) 10 mg PO QAM 04/03/20 05/01/22 pentoxifylline 400 mg 400 mg PO TID 04/03/20 05/01/22 tablet,extended release umeclidinium 62.5 mcg/actuation 1 inh INHALATION QAM 03/02/21 05/01/22 blister powder for inhalation (Incruse Ellipta) risperidone 2 mg tablet 2 mg PO TID 03/11/21 05/01/22 aluminum-mag hydroxide-simethicone 30 ml PO QPM 11/23/21 05/01/22 200 mg-200 mg-20 mg/5 mL oral susp clonazepam 0.5 mg tablet 0.5 mg PO BID 11/23/21 05/01/22 glimepiride 4 mg tablet 4 mg PO BID 11/23/21 05/01/22 multivitamin (Daily-Shaka) 1 tab PO QAM #0 11/23/21 05/01/22 escitalopram oxalate 20 mg tablet 20 mg PO QAM 01/03/22 05/01/22 metformin 500 mg tablet,extended 1,000 mg PO BIDM 01/03/22 05/01/22 release 24 hr acetaminophen 325 mg tablet 650 mg PO BID tab 04/08/22 05/01/22 (Tylenol) artificial tears(hypromellose) 0.3 1 drp OPHTHALMIC (EYE) QID PRN 04/08/22 05/01/22 % eye gel (Systane Gel) oxcarbazepine 150 mg tablet 150 mg PO BID 04/08/22 05/01/22 Results & Data (ED) Vital Signs Vital Signs - 24 hr 05/01/22 08:01 05/01/22 12:39 Temperature 36.7 C Temperature Source Oral Pulse Rate 70 Respiratory Rate 20 Blood Pressure 152/70 H Blood Pressure Mean 97 Pulse Oximetry 98 98 Oxygen Delivery Method Room Air Room Air Sepsis Recent Fever Within 48 Hours No Sepsis New/Unexplained Change in Mental Status No Sepsis Action Taken by Nursing No Action Required Home Medications Current Medication List: was personally reviewed by me Laboratory Data Attestation: I reviewed the patient's lab results. Result diagrams: 05/01/22 13:04 05/01/22 13:04 Lab Results 05/01/22 05/01/22 05/01/22 Range/Units 12:55 13:04 13:04 WBC 6.82 (4.8-10.8) K/ul RBC 3.47 L (4.63-6.08) M/uL Hgb 10.7 L (14.0-18.0) g/dl Hct 33.7 L (40.1-51.0) % MCV 97.1 (80.0-100.0) fL MCH 30.8 (25.0-34.0) pg MCHC 31.8 L (32.0-36.0) g/dL RDW Std Deviation 50.8 H (36.4-46.3) fL RDW Coeff of Drew 14.3 (11.5-14.5) % Plt Count 141 (130-400) K/uL MPV 10.4 (9.4-12.4) fL Immature Gran % (Auto) 0.3 % Neut % (Auto) 81.8 % Lymph % (Auto) 11.0 % [place] % (Auto) 6.2 % Eos % (Auto) 0.1 % Baso % (Auto) 0.6 % Neut # (Auto) 5.58 (1.4-6.5) K/uL Lymph # (Auto) 0.75 L (1.2-3.4) K/uL [place] # (Auto) 0.42 (0.24-0.82) K/uL Eos # (Auto) 0.01 (0-0.50) K/uL Baso # (Auto) 0.04 (0-0.2) K/uL Immature Gran # (Auto) 0.02 (0.00-0.02) K/uL Sodium 132 L (136-145) mmol/L Potassium 4.8 (3.5-5.1) mmol/L Chloride 97 L (98-107) mmol/L Carbon Dioxide 30 (21-32) mmol/L Anion Gap 5 (3-11) BUN 28 H (6-23) mg/dl Creatinine 0.57 L (0.6-1.4) mg/dl Est Cr Clr Drug Dosing Not Reportable Est GFR ( Amer) 123.2 ml/min Est GFR (Non-Af Amer) 106.3 ml/min BUN/Creatinine Ratio 49.1 H (10-20) Glucose 158 H (70-99(Fasting)) mg/dl Calcium 9.7 (8.5-10.1) mg/dl Total Bilirubin 0.5 (0.2-1.0) mg/dl AST 21 (13-39) U/L ALT 23 (7-52) U/L Alkaline Phosphatase 79 (34-104) U/L Total Protein 6.8 (6.0-8.3) gm/dl Albumin 4.0 (3.4-5.0) gm/dl Globulin 2.8 (2.5-4.0) gm/dl Albumin/Globulin Ratio 1.4 (0.9-2) TSH (0.300-4.500) uIu/ml SARS-CoV-2, RNA, NAAT NEGATIVE (NEGATIVE) 05/01/22 Range/Units 13:04 WBC (4.8-10.8) K/ul RBC (4.63-6.08) M/uL Hgb (14.0-18.0) g/dl Hct (40.1-51.0) % MCV (80.0-100.0) fL MCH (25.0-34.0) pg MCHC (32.0-36.0) g/dL RDW Std Deviation (36.4-46.3) fL RDW Coeff of Drew (11.5-14.5) % Plt Count (130-400) K/uL MPV (9.4-12.4) fL Immature Gran % (Auto) % Neut % (Auto) % Lymph % (Auto) % [place] % (Auto) % Eos % (Auto) % Baso % (Auto) % Neut # (Auto) (1.4-6.5) K/uL Lymph # (Auto) (1.2-3.4) K/uL [place] # (Auto) (0.24-0.82) K/uL Eos # (Auto) (0-0.50) K/uL Baso # (Auto) (0-0.2) K/uL Immature Gran # (Auto) (0.00-0.02) K/uL Sodium (136-145) mmol/L Potassium (3.5-5.1) mmol/L Chloride (98-107) mmol/L Carbon Dioxide (21-32) mmol/L Anion Gap (3-11) BUN (6-23) mg/dl Creatinine (0.6-1.4) mg/dl Est Cr Clr Drug Dosing Est GFR ( Amer) ml/min Est GFR (Non-Af Amer) ml/min BUN/Creatinine Ratio (10-20) Glucose (70-99(Fasting)) mg/dl Calcium (8.5-10.1) mg/dl Total Bilirubin (0.2-1.0) mg/dl AST (13-39) U/L ALT (7-52) U/L Alkaline Phosphatase (34-104) U/L Total Protein (6.0-8.3) gm/dl Albumin (3.4-5.0) gm/dl Globulin (2.5-4.0) gm/dl Albumin/Globulin Ratio (0.9-2) TSH 1.547 (0.300-4.500) uIu/ml SARS-CoV-2, RNA, NAAT (NEGATIVE) Administered Medications Discontinued Medications Acetaminophen (Acetaminophen 500 Mg Tab) 1,000 mg PO NOW STA Stop: 05/01/22 08:55 Last Admin: 05/01/22 09:04 Dose: 1,000 mg Documented by: [id number] Imaging Data Radiologist's Impression: Femur X-Ray 05/01/22 08:54 XR hip LT 2V w pelvis, XR femur LT 2V routine CLINICAL HISTORY: fall, L hip/femur pain. COMPARISON STUDY: 11/09/2021 TECHNIQUE: AP pelvis along with 2 left hip and AP and lateral left femur views FINDINGS: Bones: There is evidence for minimally displaced ischial pubic rami fracture present on the left. There is no evidence for an acute hip fracture or dislocation. There is no lytic or blastic lesion. Joints: There is mild to moderate narrowing of the left hip joint space superio rly. The right hip joint space is maintained. The bones are in anatomic alignment. Soft tissues: There is no focal soft tissue abnormality. There is no radiopaque foreign body. IMPRESSION: 1. Evidence for minimally displaced fractures of the ischial pubic rami on the left. ACT 112: Negative or not required by law. Electronically signed by: Melvin Rivera M.D. 05/01/2022 10:[address] 05/01/22 08:54 CT SCAN OF THE BRAIN WITHOUT IV CONTRAST CLINICAL HISTORY: Fall. COMPARISON STUDY: CT of the brain dated 03/23/2022. TECHNIQUE: Unenhanced axial CT scan of the brain is performed from the vertex to the skull base. A dose lowering technique was utilized adhering to the principles of ALARA. The examination is degraded by motion artifact. The patient was scanned twice in an effort to improve image quality. CT DOSE: 1646.23 mGy.cm FINDINGS: Brain parenchyma: There is age-related involutional change noting mild subcor tical and periventricular microangiopathic disease. There is no hemorrhage, mass effect, or evidence of acute territorial ischemia by CT criteria. Alvarez-white matter differentiation is preserved. No extra-axial fluid collection is seen. Mineralization is noted in the basal ganglia. Ventricles, sulci, cisterns: Prominent secondary to involutional change. Intracranial vasculature: There is atherosclerotic calcification of the cavernous carotid and vertebral arteries. Calvarium: The skeletal structures are osteopenic. No depressed calvarial fracture is identified. Sinuses and mastoids: The paranasal sinuses are clear. There is trace left mastoid effusion. The right mastoid air cells are well pneumatized. Orbits: The bony orbits are grossly intact. There are bilateral ocular lens implants. IMPRESSION: There is no hemorrhage, mass effect, or evidence of acute territorial ischemia by CT criteria. ACT 112: Negative or not required by law. Electronically signed by: Beka Irby M.D. 05/01/2022 9:41 AM Hip/Pelvis X-Ray 05/01/22 08:54 XR hip LT 2V w pelvis, XR femur LT 2V routine CLINICAL HISTORY: fall, L hip/femur pain. COMPARISON STUDY: 11/09/2021 TECHNIQUE: AP pelvis along with 2 left hip and AP and lateral left femur views FINDINGS: Bones: There is evidence for minimally displaced ischial pubic rami fracture pr esent on the left. There is no evidence for an acute hip fracture or dislocation. There is no lytic or blastic lesion. Joints: There is mild to moderate narrowing of the left hip joint space superiorly. The right hip joint space is maintained. The bones are in anatomic alignment. Soft tissues: There is no focal soft tissue abnormality. There is no radiopaque foreign body. IMPRESSION: 1. Evidence for minimally displaced fractures of the ischial pubic rami on the left. ACT 112: Negative or not required by law. Electronically signed by: Melvin Rivera M.D. 05/01/2022 10:47 AM Discharge Plan Visit Data Chief Complaint: Fall Stated Complaint: fall ED Provider: Ronaldo Rodrigues Discharge Problem: Fracture of pubic ramus, Ambulatory dysfunction, Hyponatremia, Fall Patient Disposition: Admitted As Inpatient Discharge Instructions Interventions: ED Discharge Assessment Last Done: 05/01/22 16:17
[2022-05-01] MEDS ORDERED: ACETAMINOPHEN 500 MG TAB PO STA (08:54)
--- NOTE | 2022-05-01 09:42 | CT Scan Report ---
CT SCAN OF THE BRAIN WITHOUT IV CONTRAST CLINICAL HISTORY: Fall. COMPARISON STUDY: CT of the brain dated 03/23/2022. TECHNIQUE: Unenhanced axial CT scan of the brain is performed from the vertex to the skull base. A do se lowering technique was utilized adhering to the principles of ALARA. The examination is degraded b y motion artifact. The patient was scanned twice in an effort to improve image quality. CT DOSE: 1646.23 mGy.cm FINDINGS: Brain parenchyma: There is age-related involutional change noting mild subcortical and periventricula r microangiopathic disease. There is no hemorrhage, mass effect, or evidence of acute territorial isc hemia by CT criteria. Alvarez-white matter differentiation is preserved. No extra-axial fluid collection is seen. Mineralization is noted in the basal ganglia. Ventricles, sulci, cisterns: Prominent secondary to involutional change. Intracranial vasculature: There is atherosclerotic calcification of the cavernous carotid and vertebr al arteries. Calvarium: The skeletal structures are osteopenic. No depressed calvarial fracture is identified. Sinuses and mastoids: The paranasal sinuses are clear. There is trace left mastoid effusion. The righ t mastoid air cells are well pneumatized. Orbits: The bony orbits are grossly intact. There are bilateral ocular lens implants. IMPRESSION: There is no hemorrhage, mass effect, or evidence of acute territorial ischemia by CT anna humphreys. ACT 112: Negative or not required by law. Electronically signed by: Beka Irby M.D. 05/01/2022 9:41 AM
--- NOTE | 2022-05-01 10:49 | XRay Report ---
XR hip LT 2V w pelvis, XR femur LT 2V routine CLINICAL HISTORY: fall, L hip/femur pain. COMPARISON STUDY: 11/09/2021 TECHNIQUE: AP pelvis along with 2 left hip and AP and lateral left femur views FINDINGS: Bones: There is evidence for minimally displaced ischial pubic rami fracture present on the left. The re is no evidence for an acute hip fracture or dislocation. There is no lytic or blastic lesion. Joints: There is mild to moderate narrowing of the left hip joint space superiorly. The right hip frieda nt space is maintained. The bones are in anatomic alignment. Soft tissues: There is no focal soft tissue abnormality. There is no radiopaque foreign body. IMPRESSION: 1. Evidence for minimally displaced fractures of the ischial pubic rami on the left. ACT 112: Negative or not required by law. Electronically signed by: Melvin Rivera M.D. 05/01/2022 10:47 AM
[2022-05-01 13:19] LABS: Basophils # (auto) 0.04 K/uL (0-0.2); Basophils % (auto) 0.6 %; Eosinophils # (auto) 0.01 K/uL (0-0.50); Eosinophils % (auto) 0.1 %; Hematocrit (blood only) 33.7 % (40.1-51.0); Hemoglobin 10.7 g/dl (14.0-18.0); Immature Granulocytes # (auto) 0.02 K/uL (0.00-0.02); Immature Granulocytes % (auto) 0.3 %; Lymphocytes # (auto) 0.75 K/uL (1.2-3.4); Mean Corpuscular Hemoglobin 30.8 pg (25.0-34.0); Mean Corpuscular Hgb Conc 31.8 g/dL (32.0-36.0); Mean Corpuscular Volume 97.1 fL (80.0-100.0); Mean Platelet Volume 10.4 fL (9.4-12.4); Monocytes # (auto) 0.42 K/uL (0.24-0.82); Monocytes % (auto) 6.2 %; Neutrophils # (auto) 5.58 K/uL (1.4-6.5); Neutrophils % (auto) 81.8 %; Platelet Count 141 K/uL (130-400); RDW Coefficient of Variation 14.3 % (11.5-14.5); RDW Standard Deviation 50.8 fL (36.4-46.3); Red Blood Count 3.47 M/uL (4.63-6.08); White Blood Count 6.82 K/ul (4.8-10.8)
[2022-05-01 13:40] LABS: Alanine Aminotransferase 23 U/L (7-52); Albumin Globulin Ratio 1.4 (0.9-2); Alkaline Phosphatase 79 U/L (34-104); Anion Gap 5 (3-11); Aspartate Aminotransferase 21 U/L (13-39); BUN Creatinine Ratio 49.1 (10-20); Bilirubin,Total 0.5 mg/dl (0.2-1.0); Blood Urea Nitrogen 28 mg/dl (6-23); Calcium 9.7 mg/dl (8.5-10.1); Carbon Dioxide 30 mmol/L (21-32); Chloride 97 mmol/L (98-107); Est GFR (African American) 123.2 ml/min; Est GFR (Non-African American) 106.3 ml/min; Globulin 2.8 gm/dl (2.5-4.0); Glucose 158 mg/dl (70-99(Fasting)); Potassium 4.8 mmol/L (3.5-5.1); Sodium 132 mmol/L (136-145); Total Protein 6.8 gm/dl (6.0-8.3)
--- NOTE | 2022-05-01 13:46 | History & Physical Report ---
Date of Service May 01, 2022 Assessment & Plan (1) Fracture of pubic ramus: (2) Ambulatory dysfunction: Plan: - Admit to med surg with tele - Ortho consulted - Dr. Ledbetter, no plans for surgical intervention but will consult for ambulation recommendations - PT/OT consults - possible placement needed - pt is resident of [facility] and lives in a residential alf -Pain control with Tylenol 1000 mg every 8 hours -Continue bowel regimen -Patient has cane and walker for outside of home use, will work asked that PT/OT encourage use, provide educational material regarding fall precautions, trip hazards etc. (3) Intellectual disability: Plan: -Noted, patient is unable to provide reliable ROS due to intellectual disability (4) Aortic stenosis: Plan: -Stable, [place] on exam - Echo from december reviewed : EF of 60 to 65%, no WMA, systolic function is normal, left atrium mildly dilated, no ASD defect detected, mild aortic stenosis - Was admitted in December 2021 where he had paroxysmal atrial fibrillation, they did not anticoagulate him at that time as he has an IVC filter in place, low burden of PAF per Dr. Stein's note. -monitor on telemetry with unwitnessed fall as described above (5) Diabetes mellitus, type 2: Plan: - ISS with Accu-Cheks ACHS- Allow HH/DM and lactose intolerant diet -Holding Jardiance, glimepiride -Last A1c = 5.6 in December 2021, recheck with a.m. labs (6) Hyponatremia: Plan: - Na is 132 on admission, possibly contributed to the reason the patient fell - Will give NSS at 125 mL /hr for 1 L and recheck BMP this evening - Trend BMP with am labs (7) Chronic obstructive pulmonary disease: Plan: -Noted, chronic, poor compliance with inhalers per caregiver we will order Incruse Ellipta while admitted DVT PPx - teds, scds, heparin subcu CODE: DNR/DNI-discussed with the patient's caregiver and reviewed advanced directive at bedside Dispo: From home, likely to remain in the hospital x 1-2 days History of Present Illness Chief Complaint: Fall Primary Care Provider: Andrew Montague MD This is a 66 yo F with PMHx of intellectual disability, DM2, COPD, PVD, TRINIDAD, GERD, chronic stasis dermatitis, hearing loss, osteoporosis, and valvular heart disease (mild MR/TR/Aortic Stenosis)who presents after unwitnessed fall. He is a member of [employer], and caregiver is here with him at bedside. Caregiver provides the majority of the history as the patient mostly nods his head yes to all my questions. His intellectual disability makes it difficult to understand him as his speech is slurred/muffled at baseline. He reports having pain and points to "down there", referring to his pelvis. He admits to falling this morning. Caregiver states he was walking in the hallway and fell. Inside the home he does not use ambulatory device, but outside, uses either a cane or a walker. Pt does not report pain anywhere else. Caregiver notes he didn't get any of his morning medications today. The patient is pleasant, and asks if I have any cats during our visit. Caregiver states he will say yes to all questions, and loves attention from others. Pt is found to have left sided pubic rami fracture which is minimally displaced on admission. Allergies Allergy/AdvReac Type Severity Reaction Status Date / Time lactose Allergy Intermediate GI SYMPTOMS Verified 04/08/22 09:04 aspirin Allergy Unknown UNKNOWN Verified 04/08/22 09:04 REACTION cephalexin Allergy Unknown UNKNOWN Verified 04/08/22 09:04 REACTION Cephalosporins Allergy Unknown UNKNOWN Verified 04/08/22 09:04 REACTION Corticosteroids Allergy Unknown UNKNOWN Verified 04/08/22 09:04 (Glucocorticoids) REACTION methylprednisolone Allergy Unknown UNKNOWN Verified 04/08/22 09:04 REACTION shellfish derived Allergy Unknown UNKNOWN Verified 04/08/22 09:04 REACTION Home Medications Medication Instructions Recorded Confirmed Type albuterol sulfate 90 mcg/actuation 2 puff INHALATION Q4H PRN 12/23/18 05/01/22 History aerosol inhaler (ProAir HFA) cholecalciferol (vitamin D3) 25 1,000 unit PO QAM 12/23/18 05/01/22 History mcg (1,000 unit) capsule (Vitamin D3) guaifenesin 600 mg tablet, 600 mg PO Q12H 12/23/18 05/01/22 History extended release 12 hr (Mucinex) loperamide 2 mg tablet (Imodium 2 mg PO UD PRN 12/23/18 05/01/22 History A-D) magnesium oxide 400 mg PO BID 12/23/18 05/01/22 History metoclopramide HCl 5 mg tablet 5 mg PO ACHS 12/23/18 05/01/22 History (Reglan) omeprazole 20 mg tablet,delayed 20 mg PO QAM 12/23/18 05/01/22 History release simvastatin 40 mg tablet (Zocor) 40 mg PO HS 12/23/18 05/01/22 History sitagliptin 100 mg tablet (Januvia) 100 mg PO QAM 12/23/18 05/01/22 History trazodone 50 mg tablet 50 mg PO HS 12/23/18 05/01/22 History loratadine 10 mg tablet (Claritin) 10 mg PO QAM 04/03/20 05/01/22 History pentoxifylline 400 mg 400 mg PO TID 04/03/20 05/01/22 History tablet,extended release umeclidinium 62.5 mcg/actuation 1 inh INHALATION QAM 03/02/21 05/01/22 History blister powder for inhalation (Incruse Ellipta) risperidone 2 mg tablet 2 mg PO TID 03/11/21 05/01/22 History aluminum-mag hydroxide-simethicone 30 ml PO QPM 11/23/21 05/01/22 History 200 mg-200 mg-20 mg/5 mL oral susp clonazepam 0.5 mg tablet 0.5 mg PO BID 11/23/21 05/01/22 History glimepiride 4 mg tablet 4 mg PO BID 11/23/21 05/01/22 History multivitamin (Daily-Shaka) 1 tab PO QAM #0 11/23/21 05/01/22 History escitalopram oxalate 20 mg tablet 20 mg PO QAM 01/03/22 05/01/22 History metformin 500 mg tablet,extended 1,000 mg PO BIDM 01/03/22 05/01/22 History release 24 hr acetaminophen 325 mg tablet 650 mg PO BID tab 04/08/22 05/01/22 History (Tylenol) artificial tears(hypromellose) 0.3 1 drp OPHTHALMIC (EYE) QID PRN 04/08/22 05/01/22 History % eye gel (Systane Gel) oxcarbazepine 150 mg tablet 150 mg PO BID 04/08/22 05/01/22 History Past Med/Surg History Medical History Anxiety Aortic stenosis Mild per 09/2021 ECHO CAP (community acquired pneumonia) Cerebral palsy Chronic obstructive pulmonary disease Well controlled > hasnt used res inh for 2 yrs Depression Diabetes mellitus, type 2 DJD (degenerative joint disease) Femoral condyle fracture GERD (gastroesophageal reflux disease) History of COVID-19 Tested positive 09/21/21 [facility] ([facility] Sinus congestion only. no hospitalization. No current problems. Hospital-acquired pneumonia Hyperlipidemia Hypotension Intellectual disability Lives at [facility] facility Neuropathy TRINIDAD (obstructive sleep apnea) Per records Osteoporosis Peroneal palsy Presence of IVC filter Placed in 1997 per records PVD (peripheral vascular disease) Scoliosis Tibia fracture TMJ (temporomandibular joint disorder) Venous insufficiency Surgical History History of cholecystectomy History of colonoscopy History of tooth extraction S/P cataract surgery Left and Right Family History Father Coronary heart disease Social History Smoking Status: Unknown if ever smoked Second Hand Exposure: No; Do You Dip or Chew Tobacco: No; Tobacco Cessation Education Requested by Patient: No Hx Alcohol Use: No Preferred Language: Swazi Communication Ability: Effective Communication Tools: Other Visual Impairment: No Limitations Hearing Ability: Use of Hearing Aid Handyman Required: No Beliefs That Will Affect Care: None marital status: Single marital status details: [facility] Current Living Situation: Other Current Living Situation Comment: [facility] in alf current occupational status: disabled How many Children do You have: 0 Other Information That Helps Us Care for You: No Feels Safe at Home: Yes caffeine: No Assistive Devices: Walker Review of Systems Review of Systems: Unobtainable due to mental health condition (Intellectual disability) Physical Exam Physical Exam: General: awake, alert, no apparent distress, + underbite Head: Normocephalic, atraumatic ENT: PERRL, EOMI, no pharyngeal exudate, mucous membranes moist Chest: Clear to auscultation, on room air, no adventitious breath sounds Cardiac: Regular rate and rhythm, + systolic ejection murmur, no JVD, normal peripheral pulses, good capillary refill Abdominal: NABS x 4 quadrants, soft, nondistended, nontender to palpation, no rebound or guarding Extremities: + few areas of ecchymosis on bilateral arms and legs, otherise normal inspection, no peripheral edema or erythema, calfs nontender to palpation Psych: Happy mood and affect Neuro: AAO x 3, strength intact bilaterally and rated 5/5, no motor deficits, speech is clear, no peripheral sensory deficits Results & Data Results & Data ([facility]) Vital Signs (Past 12 Hours) Vital Signs Temp Pulse Resp BP Pulse Ox 05/01/22 12:39 98 05/01/22 08:01 36.7 C 70 20 152/70 H 98 Laboratory Results 05/01/22 05/01/22 05/01/22 13:04 13:04 13:04 WBC 6.82 RBC 3.47 L Hgb 10.7 L Hct 33.7 L MCV 97.1 MCH 30.8 MCHC 31.8 L RDW Std Deviation 50.8 H RDW Coeff of Drew 14.3 Plt Count 141 MPV 10.4 Immature Gran % (Auto) 0.3 Neut % (Auto) 81.8 Lymph % (Auto) 11.0 [place] % (Auto) 6.2 Eos % (Auto) 0.1 Baso % (Auto) 0.6 Neut # (Auto) 5.58 Lymph # (Auto) 0.75 L [place] # (Auto) 0.42 Eos # (Auto) 0.01 Baso # (Auto) 0.04 Immature Gran # (Auto) 0.02 Sodium 132 L Potassium 4.8 Chloride 97 L Carbon Dioxide 30 Anion Gap 5 BUN 28 H Creatinine 0.57 L Est Cr Clr Drug Dosing Not Reportable Est GFR ( Amer) 123.2 Est GFR (Non-Af Amer) 106.3 BUN/Creatinine Ratio 49.1 H Glucose 158 H Calcium 9.7 Total Bilirubin 0.5 AST 21 ALT 23 Alkaline Phosphatase 79 Total Protein 6.8 Albumin 4.0 Globulin 2.8 Albumin/Globulin Ratio 1.4 TSH 1.547 SARS-CoV-2, RNA, NAAT 05/01/22 12:55 WBC RBC Hgb Hct MCV MCH MCHC RDW Std Deviation RDW Coeff of Drew Plt Count MPV Immature Gran % (Auto) Neut % (Auto) Lymph % (Auto) [place] % (Auto) Eos % (Auto) Baso % (Auto) Neut # (Auto) Lymph # (Auto) [place] # (Auto) Eos # (Auto) Baso # (Auto) Immature Gran # (Auto) Sodium Potassium Chloride Carbon Dioxide Anion Gap BUN Creatinine Est Cr Clr Drug Dosing Est GFR ( Amer) Est GFR (Non-Af Amer) BUN/Creatinine Ratio Glucose Calcium Total Bilirubin AST ALT Alkaline Phosphatase Total Protein Albumin Globulin Albumin/Globulin Ratio TSH SARS-CoV-2, RNA, NAAT NEGATIVE Diagnostic Findings Femur X-Ray 05/01/22 08:54 XR hip LT 2V w pelvis, XR femur LT 2V routine CLINICAL HISTORY: fall, L hip/femur pain. COMPARISON STUDY: 11/09/2021 TECHNIQUE: AP pelvis along with 2 left hip and AP and lateral left femur views FINDINGS: Bones: There is evidence for minimally displaced ischial pubic rami fracture present on the left. There is no evidence for an acute hip fracture or dislocation. There is no lytic or blastic lesion. Joints: There is mild to moderate narrowing of the left hip joint space superiorly. The right hip joint space is maintained. The bones are in anatomic alignment. Soft tissues: There is no focal soft tissue abnormality. There is no radiopaque foreign body. IMPRESSION: 1. Evidence for minimally displaced fractures of the ischial pubic rami on the left. ACT 112: Negative or not required by law. Electronically signed by: Melvin Rivera M.D. 05/01/2022 10:[address] 05/01/22 08:54 CT SCAN OF THE BRAIN WITHOUT IV CONTRAST CLINICAL HISTORY: Fall. COMPARISON STUDY: CT of the brain dated 03/23/2022. TECHNIQUE: Unenhanced axial CT scan of the brain is performed from the vertex to the skull base. A dose lowering technique was utilized adhering to the principles of ALARA. The examination is degraded by motion artifact. The patient was scanned twice in an effort to improve image quality. CT DOSE: 1646.23 mGy.cm FINDINGS: Brain parenchyma: There is age-related involutional change noting mild subcortical and periventricular microangiopathic disease. There is no hemorrhage, mass effect, or evidence of acute territorial ischemia by CT criteria. Alvarez-white matter differentiation is preserved. No extra-axial fluid collection is seen. Mineralization is noted in the basal ganglia. Ventricles, sulci, cisterns: Prominent secondary to involutional change. Intracranial vasculature: There is atherosclerotic calcification of the cavernous carotid and vertebral arteries. Calvarium: The skeletal structures are osteopenic. No depressed calvarial fracture is identified. Sinuses and mastoids: The paranasal sinuses are clear. There is trace left mastoid effusion. The right mastoid air cells are well pneumatized. Orbits: The bony orbits are grossly intact. There are bilateral ocular lens implants. IMPRESSION: There is no hemorrhage, mass effect, or evidence of acute territorial ischemia by CT criteria. ACT 112: Negative or not required by law. Electronically signed by: Beak Irby M.D. 05/01/2022 9:41 AM Hip/Pelvis X-Ray 05/01/22 08:54 XR hip LT 2V w pelvis, XR femur LT 2V routine CLINICAL HISTORY: fall, L hip/femur pain. COMPARISON STUDY: 11/09/2021 TECHNIQUE: AP pelvis along with 2 left hip and AP and lateral left femur views FINDINGS: Bones: There is evidence for minimally displaced ischial pubic rami fracture present on the left. There is no evidence for an acute hip fracture or dislocation. There is no lytic or blastic lesion. Joints: There is mild to moderate narrowing of the left hip joint space superiorly. The right hip joint space is maintained. The bones are in anatomic alignment. Soft tissues: There is no focal soft tissue abnormality. There is no radiopaque foreign body. IMPRESSION: 1. Evidence for minimally displaced fractures of the ischial pubic rami on the left. ACT 112: Negative or not required by law. Electronically signed by: Melvin Rivera M.D. 05/01/2022 10:47 AM Code Status & VTE Plan Code Status DNR/DNI - advanced directive reviewed with caregiver Supervising Physician Co-Signing Physician Notes Patient seen and examined by me, care coordinated with Odalis Lynn PA-C, please refer to her note above for further detail. Pt is a 66 yo M with intellectual disability, DM2, COPD, PVD, [place]INID[place], GERD, chronic stasis dermatitis, hearing loss, osteoporosis, and valvular heart disease (mild MR/TR/Aortic Stenosis)who presents after unwitnessed fall. He is a member of [employer]. Pt's intellectual disability makes it difficult to understand him as his speech is slurred/muffled at baseline. He reports that he tripped, and that he has pain in his leg. Per report, inside the home he does not use ambulatory device, but outside, uses either a cane or a walker. Pt was found to have left sided pubic rami fracture which is minimally displaced on admission. Currently he is sitting up in bed, in no acute distress. He is awake, able to answer few simple questions. Lungs are clear to auscultation bilaterally. Heart sounds regular, positive systolic murmur. Abdomen soft nontender nondistended. Given reported pain, did not move lower extremities by myself. Skin is warm and dry. Orthopedics consulted for pubic rami fracture. Given unwitnessed fall, will monitor on telemetry. Patient reports that he tripped. MD Farzana
[2022-05-01] MEDS ORDERED: DEXTROSE 50% 50 ML SYRINGE IV PRN (16:31)
[2022-05-01] MEDS ORDERED: GLUCOSE 40% GEL 15 GM TUBE PO PRN (16:31)
[2022-05-01] MEDS ORDERED: CARBOHYDRATES FOR HYPOGLYCEMIA PO PRN (16:31)
[2022-05-01] MEDS ORDERED: GLUCAGON FOR INJ 1 MG VIAL SQ PRN (16:31)
[2022-05-01] MEDS ORDERED: ONDANSETRON INJ 2 MG/ML 2 ML VIAL IV PRN (16:31)
[2022-05-01] MEDS ORDERED: GLUCOSE 10 TAB/TUBE PO PRN (16:31)
[2022-05-01] MEDS ORDERED: SODIUM CHLORIDE 0.9% 1000ML 1,000 ML IV SCH (16:31)
[2022-05-01] MEDS ORDERED: ARTIFICIAL TEARS OP PRN (17:05)
--- NOTE | 2022-05-01 17:27 | Orthopedic Consultation ---
Date of Consultation May 01, 2022 Assessment & Plan (1) Fracture of pubic ramus: Noted fracture of the left ischial pubic rami. Minimal displacement. No obvious fractures of the hip or femur. Patient can be weightbearing as tolerated on the left lower extremity. Pain control as needed. He will need PT and OT to work with him for bed to chair transfers and possible ambulation. It may be very difficult for him to be weightbearing at this time but we will see how he progresses. Patient may follow-up in the office with Dr. Purcell in 2 weeks. History of Present Illness Reason for Consultation: Left ischial pubic ring fracture Attending Physician: Champ Yanes MD History of Present Illness Patient is a 66 yo male with PMHx of intellectual disability, DM2, COPD, PVD, TRINIDAD, GERD, chronic stasis dermatitis, hearing loss, osteoporosis, and valvular heart disease (mild MR/TR/Aortic Stenosis)who presents after unwitnessed fall. Patient is a member of the [employer]. His current caregiver is not with him. Patient is somewhat difficult to understand but I can discern some information from him. Most information is from the chart. Patient apparently had a fall earlier today. He began complaining of pain in around his pelvis. He was having difficulty ambulating. Patient was brought to the emergency room here at [facility] and x-rays were taken. He was found to have a left ischial pubic ring fracture that was minimally displaced. Per the chart history, his caregiver states that the patient does ambulate inside without a assistive device. However when he does go outside he does use a cane or a walker. Apparently his caregiver had said he tends to answer yes to a lot of questions. Currently he appears comfortable. He is having pain in the left groin when moving the left lower extremity. We have been asked to see him for his left ischial pubic fracture. Allergies Allergy/AdvReac Type Severity Reaction Status Date / Time lactose Allergy Intermediate GI SYMPTOMS Verified 04/08/22 09:04 aspirin Allergy Unknown UNKNOWN Verified 04/08/22 09:04 REACTION cephalexin Allergy Unknown UNKNOWN Verified 04/08/22 09:04 REACTION Cephalosporins Allergy Unknown UNKNOWN Verified 04/08/22 09:04 REACTION Corticosteroids Allergy Unknown UNKNOWN Verified 04/08/22 09:04 (Glucocorticoids) REACTION methylprednisolone Allergy Unknown UNKNOWN Verified 04/08/22 09:04 REACTION shellfish derived Allergy Unknown UNKNOWN Verified 04/08/22 09:04 REACTION Home Medications Medication Instructions Recorded Confirmed Type albuterol sulfate 90 mcg/actuation 2 puff INHALATION Q4H PRN 12/23/18 05/01/22 History aerosol inhaler (ProAir HFA) cholecalciferol (vitamin D3) 25 1,000 unit PO QAM 12/23/18 05/01/22 History mcg (1,000 unit) capsule (Vitamin D3) guaifenesin 600 mg tablet, 600 mg PO Q12H 12/23/18 05/01/22 History extended release 12 hr (Mucinex) loperamide 2 mg tablet (Imodium 2 mg PO UD PRN 12/23/18 05/01/22 History A-D) magnesium oxide 400 mg PO BID 12/23/18 05/01/22 History metoclopramide HCl 5 mg tablet 5 mg PO ACHS 12/23/18 05/01/22 History (Reglan) omeprazole 20 mg tablet,delayed 20 mg PO QAM 12/23/18 05/01/22 History release simvastatin 40 mg tablet (Zocor) 40 mg PO HS 12/23/18 05/01/22 History sitagliptin 100 mg tablet (Januvia) 100 mg PO QAM 12/23/18 05/01/22 History trazodone 50 mg tablet 50 mg PO HS 12/23/18 05/01/22 History loratadine 10 mg tablet (Claritin) 10 mg PO QAM 04/03/20 05/01/22 History pentoxifylline 400 mg 400 mg PO TID 04/03/20 05/01/22 History tablet,extended release umeclidinium 62.5 mcg/actuation 1 inh INHALATION QAM 03/02/21 05/01/22 History blister powder for inhalation (Incruse Ellipta) risperidone 2 mg tablet 2 mg PO TID 03/11/21 05/01/22 History aluminum-mag hydroxide-simethicone 30 ml PO QPM 11/23/21 05/01/22 History 200 mg-200 mg-20 mg/5 mL oral susp clonazepam 0.5 mg tablet 0.5 mg PO BID 11/23/21 05/01/22 History glimepiride 4 mg tablet 4 mg PO BID 11/23/21 05/01/22 History multivitamin (Daily-Shaka) 1 tab PO QAM #0 11/23/21 05/01/22 History escitalopram oxalate 20 mg tablet 20 mg PO QAM 01/03/22 05/01/22 History metformin 500 mg tablet,extended 1,000 mg PO BIDM 01/03/22 05/01/22 History release 24 hr acetaminophen 325 mg tablet 650 mg PO BID tab 04/08/22 05/01/22 History (Tylenol) artificial tears(hypromellose) 0.3 1 drp OPHTHALMIC (EYE) QID PRN 04/08/22 05/01/22 History % eye gel (Systane Gel) oxcarbazepine 150 mg tablet 150 mg PO BID 04/08/22 05/01/22 History Patient History Medical History Anxiety Aortic stenosis Mild per 09/2021 ECHO CAP (community acquired pneumonia) Cerebral palsy Chronic obstructive pulmonary disease Well controlled > hasnt used res inh for 2 yrs Depression Diabetes mellitus, type 2 DJD (degenerative joint disease) Femoral condyle fracture GERD (gastroesophageal reflux disease) History of COVID-19 Tested positive 09/21/21 [facility] ([facility] Sinus congestion only. no hospitalization. No current problems. Hospital-acquired pneumonia Hyperlipidemia Hypotension Intellectual disability Lives at [facility] facility Neuropathy TRINIDAD (obstructive sleep apnea) Per records Osteoporosis Peroneal palsy Presence of IVC filter Placed in 1997 per records PVD (peripheral vascular disease) Scoliosis Tibia fracture TMJ (temporomandibular joint disorder) Venous insufficiency Surgical History History of cholecystectomy History of colonoscopy History of tooth extraction S/P cataract surgery Left and Right Family History Father Coronary heart disease Social History Smoking Status: Unknown if ever smoked Second Hand Exposure: No; Do You Dip or Chew Tobacco: No; Tobacco Cessation Education Requested by Patient: No Hx Alcohol Use: No Preferred Language: [place] Zeal[place] Communication Ability: Effective Communication Tools: Other Visual Impairment: No Limitations Hearing Ability: Use of Hearing Aid Senior Data [employer]st Required: No Beliefs That Will Affect Care: None marital status: Single marital status details: [employer] Current Living Situation: Other Current Living Situation Comment: [employer] in [employer] current occupational status: disabled How many Children do You have: 0 Other Information That Helps Us Care for You: No Feels Safe at Home: Declines to Answer caffeine: No Assistive Devices: None Physical Exam Physical Exam: Patient is a thin 66-year-old white male. No acute distress, pleasant and cooperative. He answers a lot of his questions with a yes but does answer some questions appropriately. He discusses that he fell this morning. Examination of the left lower extremity reveals the hip to be in flexion and his knee is in about 30 degrees of flexion which is comfortable for him. Attempts to do internal and external rotation of the left hip causes him discomfort. He also experiences some discomfort with flexion and abduction. His knee is nontender on palpation and there is no overt effusion. Left ankle appears nontender. He is not following some commands when asked to do range of motion of some portions of his lower extremities. His right lower extremity appears to be unaffected and he does not complain of pain in the hip, knee, ankle. Upper extremities appear to be unaffected and he is nontender at the shoulders, elbows, and wrist. Results & Data ([facility]) Vital Signs (Past 12 Hours) Vital Signs Temp Pulse Pulse Resp BP BP Pulse Ox 05/01/22 16:47 37.2 C 62 16 176/71 H 95 05/01/22 12:39 98 05/01/22 08:01 36.7 C 70 20 152/70 H 98 Diagnostic Findings Patient:JIMMY MABRY Admit Date:05/01/22 MR#:[id number] Address1:[address] [place] [address] Acct ID:[id number] Address2: Date:1955 [facility] Zip:[place] [address] Age:66 Location:ED Sex:M Room/Bed: Att Phy: Diagnosis:fall Kiki Phy:Andrew Montague III, MD Service Date:05/01/22 [facility] Phy: Interpreting Phy:Melvin Rivera MDAdmit Phy: Ordering Phy:Ronaldo Rodrigues MD cc: ~ XR hip LT 2V w pelvis, XR femur LT 2V routine CLINICAL HISTORY: fall, L hip/femur pain. COMPARISON STUDY: 11/09/2021 TECHNIQUE: AP pelvis along with 2 left hip and AP and lateral left femur views FINDINGS: Bones: There is evidence for minimally displaced ischial pubic rami fracture present on the left. There is no evidence for an acute hip fracture or dislocation. There is no lytic or blastic lesion. Joints: There is mild to moderate narrowing of the left hip joint space superiorly. The right hip joint space is maintained. The bones are in anatomic alignment. Soft tissues: There is no focal soft tissue abnormality. There is no radiopaque foreign body. IMPRESSION: 1. Evidence for minimally displaced fractures of the ischial pubic rami on the left. ACT 112: Negative or not required by law. (1) Fracture of pubic ramus Encounter type: initial encounter Fracture type: closed Laterality: left Qualified Code(s): S32.592A - Other specified fracture of left pubis, initial encounter for closed fracture
[2022-05-01] MEDS: INSULIN ASPART PER UNIT SC SCH ×2 (17:53→21:16)
[2022-05-01] MEDS: METOCLOPRAMIDE HCL 5 MG TABLET PO SCH ×2 (18:07→21:12)
[2022-05-01] MEDS: guaiFENesin 600 MG TABCR PO SCH (18:07)
[2022-05-01] MEDS: metFORMIN HCL ER 500 MG TABCR PO SCH (18:07)
[2022-05-01] MEDS: PENTOXIFYLLINE 400MG EXT REL TAB PO SCH (21:10)
[2022-05-01] MEDS: ACETAMINOPHEN 500 MG TAB PO SCH (21:10)
[2022-05-01] MEDS: risperiDONE 2 MG TABLET PO SCH (21:11)
[2022-05-01] MEDS: traZODone HCL 50 MG TAB PO SCH (21:11)
[2022-05-01] MEDS: clonazePAM 0.5 MG TAB PO SCH (21:11)
[2022-05-01] MEDS: SIMVASTATIN 40 MG TAB PO SCH (21:11)
[2022-05-01] MEDS: MAGNESIUM OXIDE 400 MG TAB PO SCH (21:11)
[2022-05-01] MEDS: HEPARIN SOD 5,000 UNIT/0.5 ML VIAL SQ SCH (21:18)
[2022-05-01 21:40] LABS: Anion Gap 5 (3-11); BUN Creatinine Ratio 33.3 (10-20); Blood Urea Nitrogen 23 mg/dl (6-23); Calcium 9.2 mg/dl (8.5-10.1); Carbon Dioxide 29 mmol/L (21-32); Chloride 98 mmol/L (98-107); Est GFR (African American) 113.9 ml/min; Est GFR (Non-African American) 98.2 ml/min; Glucose 100 mg/dl (70-99(Fasting)); Potassium 4.8 mmol/L (3.5-5.1); Sodium 132 mmol/L (136-145)
[2022-05-02] MEDS: ACETAMINOPHEN 500 MG TAB PO SCH ×3 (05:59→21:09)
[2022-05-02] MEDS: guaiFENesin 600 MG TABCR PO SCH ×2 (05:59→16:52)
[2022-05-02] MEDS: ESCITALOPRAM OXALATE 20 MG TAB PO SCH (08:12)
[2022-05-02] MEDS: METOCLOPRAMIDE HCL 5 MG TABLET PO SCH ×4 (08:12→21:07)
[2022-05-02] MEDS: MULTIVITAMIN TAB PO SCH (08:12)
[2022-05-02] MEDS: metFORMIN HCL ER 500 MG TABCR PO SCH ×2 (08:12→16:47)
[2022-05-02] MEDS: CHOLECALCIFEROL 1,000 UNITS 25 MCG TAB PO SCH (08:12)
[2022-05-02] MEDS: LORATADINE 10 MG TAB PO SCH (08:12)
[2022-05-02 08:13] LABS: Alanine Aminotransferase 19 U/L (7-52); Albumin Globulin Ratio 1.4 (0.9-2); Albumin Level 3.9 gm/dl (3.4-5.0); Alkaline Phosphatase 94 U/L (34-104); Anion Gap 5 (3-11); Aspartate Aminotransferase 19 U/L (13-39); BUN Creatinine Ratio 36.7 (10-20); Bilirubin,Total 0.4 mg/dl (0.2-1.0); Blood Urea Nitrogen 18 mg/dl (6-23); Calcium 9.3 mg/dl (8.5-10.1); Carbon Dioxide 28 mmol/L (21-32); Chloride 96 mmol/L (98-107); Est GFR (African American) 131.1 ml/min; Est GFR (Non-African American) 113.1 ml/min; Globulin 2.8 gm/dl (2.5-4.0); Glucose 180 mg/dl (70-99(Fasting)); Potassium 4.6 mmol/L (3.5-5.1); Sodium 129 mmol/L (136-145); Total Protein 6.7 gm/dl (6.0-8.3)
[2022-05-02] MEDS: UMECLIDINIUM BROMIDE 62.5MCG/BLISTER 7 PUFFS/INHALER INH SCH (08:13)
[2022-05-02] MEDS: PANTOprazole 40 MG TAB PO SCH (08:13)
[2022-05-02] MEDS: risperiDONE 2 MG TABLET PO SCH ×3 (08:13→21:07)
[2022-05-02] MEDS: MAGNESIUM OXIDE 400 MG TAB PO SCH ×2 (08:13→21:06)
[2022-05-02] MEDS: HEPARIN SOD 5,000 UNIT/0.5 ML VIAL SQ SCH ×2 (08:14→21:05)
[2022-05-02] MEDS: clonazePAM 0.5 MG TAB PO SCH ×2 (08:16→21:06)
[2022-05-02] MEDS: INSULIN ASPART PER UNIT SC SCH ×4 (08:17→21:03)
[2022-05-02 08:23] LABS: Estimated Average Glucose 137 mg/dl; Hemoglobin A1C 6.4 % (4.5-5.6)
[2022-05-02] MEDS: PENTOXIFYLLINE 400MG EXT REL TAB PO SCH ×3 (08:27→21:06)
[2022-05-02 08:43] LABS: Hematocrit (blood only) 34.4 % (40.1-51.0); Hemoglobin 10.9 g/dl (14.0-18.0); Mean Corpuscular Hemoglobin 30.4 pg (25.0-34.0); Mean Corpuscular Hgb Conc 31.7 g/dL (32.0-36.0); Mean Corpuscular Volume 95.8 fL (80.0-100.0); Mean Platelet Volume 10.1 fL (9.4-12.4); Platelet Count 128 K/uL (130-400); Platelet Estimate Decreased (Normal); RDW Coefficient of Variation 14.5 % (11.5-14.5); RDW Standard Deviation 50.8 fL (36.4-46.3); Red Blood Count 3.59 M/uL (4.63-6.08); White Blood Count 4.91 K/ul (4.8-10.8)
--- NOTE | 2022-05-02 10:50 | Hospitalist Progress Note ---
Date of Service May 02, 2022 Assessment & Plan (1) Fracture of pubic ramus: (2) Ambulatory dysfunction: Plan: Hip XR showed minimally displaced fractures of the ischial pubic rami on the left Ortho evaluation noted No surgical intervention required PT/OT eval Pain control (3) Intellectual disability: (4) Aortic stenosis: Plan: Echo from december reviewed : EF of 60 to 65%, no WMA, systolic function is normal, left atrium mildly dilated, no ASD defect detected, mild aortic stenosis Was admitted in December 2021 where he had paroxysmal atrial fibrillation, they did not anticoagulate him at that time as he has an IVC filter in place, low burden of PAF per Dr. Stein's note. Monitor on telemetry with unwitnessed fall as described above (5) Diabetes mellitus, type 2: Plan: ISS with Accu-Cheks ACHS- Allow HH/DM and lactose intolerant diet Holding Jardiance, glimepiride Last A1c = 5.6 in December 2021 A1c today is 6.4 (6) Hyponatremia: Plan: - Na is 132 on admission Got NSS at 125 mL /hr for 1 L on admission Na is 129 today Get Serum osm, urine osm, Gabe Monitor Na Monitor fluid intake. From my experience with patient in the past, he likes to drink a lot of soda Limit this and fluid restrict (7) Chronic obstructive pulmonary disease: Plan: -Noted, chronic, poor compliance with inhalers per caregiver we will order Incruse Ellipta while admitted DVT PPx - teds, scds, heparin subcu CODE: DNR/DNI-discussed with the patient's caregiver and reviewed advanced directive at bedside Admission and Anticipated Discharge Date Admission Date: May 01, 2022 Subjective Patient seen and examined ROS limited due to intellectual disability. Patient has limited speech and occasionally answers 'yes' to questions. Some speech is unintelligent No event per RN Physical Exam Constitutional: + well hydrated; no acute distress Eyes: PERRL, conjunctivae normal, anicteric sclerae ENMT: external ear and nose normal, oropharynx normal Respiratory: normal respiratory effort, lungs clear to auscultation Cardiovascular: Rate/Rhythm: regular rate and regular rhythm S1 S2 Gastrointestinal (Abdomen): normal bowel sounds, soft, nontender, no hepatosplenomegaly Musculoskeletal: No pedal edema Neurologic: Limited due to intellectual disability. Able to follow simple commands. Psychiatric: Difficult to assess Results & Data Results & Data ([facility]) Vital Signs (Past 12 Hours) Vital Signs Temp Pulse Pulse Resp BP Pulse Ox 05/02/22 07:41 36.6 C 53 L 18 167/80 H 96 05/02/22 02:50 37.1 C 70 20 108/63 95 05/01/22 23:17 62 05/01/22 23:14 36.8 C 70 19 97/60 L 94 Laboratory Results Abnormal lab results 05/01/22 05/01/22 05/01/22 Range/Units 17:09 20:45 20:58 RBC (4.63-6.08) M/uL Hgb (14.0-18.0) g/dl Hct (40.1-51.0) % MCHC (32.0-36.0) g/dL RDW Std Deviation (36.4-46.3) fL Plt Count (130-400) K/uL Platelet Estimate (Normal) Sodium 132 L (136-145) mmol/L Chloride (98-107) mmol/L Creatinine (0.6-1.4) mg/dl BUN/Creatinine Ratio 33.3 H (10-20) Glucose 100 H (70-99(Fasting)) mg/dl POC Glucose 167 H 105 H (70-99) mg/dl Hemoglobin A1c (4.5-5.6) % 05/02/22 05/02/22 05/02/22 Range/Units 07:23 07:37 07:37 RBC 3.59 L (4.63-6.08) M/uL Hgb 10.9 L (14.0-18.0) g/dl Hct 34.4 L (40.1-51.0) % MCHC 31.7 L (32.0-36.0) g/dL RDW Std Deviation 50.8 H (36.4-46.3) fL Plt Count 128 L (130-400) K/uL Platelet Estimate Decreased L (Normal) Sodium 129 L (136-145) mmol/L Chloride 96 L (98-107) mmol/L Creatinine 0.49 L (0.6-1.4) mg/dl BUN/Creatinine Ratio 36.7 H (10-20) Glucose 180 H (70-99(Fasting)) mg/dl POC Glucose 192 H (70-99) mg/dl Hemoglobin A1c (4.5-5.6) % 05/02/22 Range/Units 07:37 RBC (4.63-6.08) M/uL Hgb (14.0-18.0) g/dl Hct (40.1-51.0) % MCHC (32.0-36.0) g/dL RDW Std Deviation (36.4-46.3) fL Plt Count (130-400) K/uL Platelet Estimate (Normal) Sodium (136-145) mmol/L Chloride (98-107) mmol/L Creatinine (0.6-1.4) mg/dl BUN/Creatinine Ratio (10-20) Glucose (70-99(Fasting)) mg/dl POC Glucose (70-99) mg/dl Hemoglobin A1c 6.4 H (4.5-5.6) % (1) Fracture of pubic ramus Encounter type: initial encounter Fracture type: closed Laterality: left Qualified Code(s): S32.592A - Other specified fracture of left pubis, initial encounter for closed fracture
[2022-05-02] MEDS: SIMVASTATIN 40 MG TAB PO SCH (21:06)
[2022-05-02] MEDS: traZODone HCL 50 MG TAB PO SCH (21:06)
--- NOTE | 2022-05-02 22:29 | Electrocardiogram Report ---
Test Reason : Blood Pressure : / mmHG Vent. Rate : 074 BPM Atrial Rate : 074 BPM P-R Int : 172 ms QRS Dur : 076 ms QT Int : 364 ms P-R-T Axes : 064 035 041 degrees QTc Int : 404 ms Normal sinus rhythm with sinus arrhythmia Normal ECG When compared with ECG of 23-MAR-2022 15:36, Incomplete right bundle branch block is no longer Present Confirmed by Marcelino Gallegos ([id number]) on 05/02/2022 10:29:14 PM Referred By: REFERRED SELF Confirmed By:Marcelino Gallegos
[2022-05-03] MEDS: ACETAMINOPHEN 500 MG TAB PO SCH ×2 (06:09→13:28)
[2022-05-03] MEDS: guaiFENesin 600 MG TABCR PO SCH (06:10)
[2022-05-03 07:09] LABS: Hematocrit (blood only) 32.6 % (40.1-51.0); Hemoglobin 10.4 g/dl (14.0-18.0); Mean Corpuscular Hemoglobin 30.3 pg (25.0-34.0); Mean Corpuscular Hgb Conc 31.9 g/dL (32.0-36.0); Mean Platelet Volume 9.8 fL (9.4-12.4); Platelet Count 124 K/uL (130-400); RDW Coefficient of Variation 14.6 % (11.5-14.5); RDW Standard Deviation 50.1 fL (36.4-46.3); Red Blood Count 3.43 M/uL (4.63-6.08); White Blood Count 3.56 K/ul (4.8-10.8)
[2022-05-03 07:51] LABS: Alanine Aminotransferase 18 U/L (7-52); Albumin Globulin Ratio 1.3 (0.9-2); Albumin Level 3.6 gm/dl (3.4-5.0); Alkaline Phosphatase 85 U/L (34-104); Anion Gap 6 (3-11); Aspartate Aminotransferase 16 U/L (13-39); BUN Creatinine Ratio 28.2 (10-20); Bilirubin,Total 0.4 mg/dl (0.2-1.0); Blood Urea Nitrogen 20 mg/dl (6-23); Calcium 9.7 mg/dl (8.5-10.1); Carbon Dioxide 29 mmol/L (21-32); Chloride 98 mmol/L (98-107); Est GFR (African American) 112.5 ml/min; Est GFR (Non-African American) 97.1 ml/min; Globulin 2.7 gm/dl (2.5-4.0); Glucose 201 mg/dl (70-99(Fasting)); Potassium 4.6 mmol/L (3.5-5.1); Sodium 133 mmol/L (136-145); Total Protein 6.3 gm/dl (6.0-8.3)
[2022-05-03] MEDS: metFORMIN HCL ER 500 MG TABCR PO SCH (08:38)
[2022-05-03] MEDS: PENTOXIFYLLINE 400MG EXT REL TAB PO SCH (08:39)
[2022-05-03] MEDS: LORATADINE 10 MG TAB PO SCH (08:39)
[2022-05-03] MEDS: PANTOprazole 40 MG TAB PO SCH (08:39)
[2022-05-03] MEDS: MULTIVITAMIN TAB PO SCH (08:39)
[2022-05-03] MEDS: UMECLIDINIUM BROMIDE 62.5MCG/BLISTER 7 PUFFS/INHALER INH SCH (08:39)
[2022-05-03] MEDS: METOCLOPRAMIDE HCL 5 MG TABLET PO SCH ×2 (08:39→12:26)
[2022-05-03] MEDS: CHOLECALCIFEROL 1,000 UNITS 25 MCG TAB PO SCH (08:39)
[2022-05-03] MEDS: risperiDONE 2 MG TABLET PO SCH ×2 (08:39→13:28)
[2022-05-03] MEDS: ESCITALOPRAM OXALATE 20 MG TAB PO SCH (08:39)
[2022-05-03] MEDS: MAGNESIUM OXIDE 400 MG TAB PO SCH (08:40)
[2022-05-03] MEDS: HEPARIN SOD 5,000 UNIT/0.5 ML VIAL SQ SCH (08:40)
[2022-05-03] MEDS: clonazePAM 0.5 MG TAB PO SCH (08:46)
[2022-05-03] MEDS: INSULIN ASPART PER UNIT SC SCH ×2 (08:46→12:25)
--- NOTE | 2022-05-03 11:27 | Discharge Summary ---
Date of Service May 03, 2022 Admission HPI Per Admitting Provider This is a 66 yo F with PMHx of intellectual disability, DM2, COPD, PVD, TRINIDAD, GERD, chronic stasis dermatitis, hearing loss, osteoporosis, and valvular heart disease (mild MR/TR/Aortic Stenosis)who presents after unwitnessed fall. He is a member of [employer], and caregiver is here with him at bedside. Caregiver provides the majority of the history as the patient mostly nods his head yes to all my questions. His intellectual disability makes it difficult to understand him as his speech is slurred/muffled at baseline. He reports having pain and points to "down there", referring to his pelvis. He admits to falling this morning. Caregiver states he was walking in the hallway and fell. Inside the home he does not use ambulatory device, but outside, uses either a cane or a walker. Pt does not report pain anywhere else. Caregiver notes he didn't get any of his morning medications today. The patient is pleasant, and asks if I have any cats during our visit. Caregiver states he will say yes to all questions, and loves attention from others. Pt is found to have left sided pubic rami fracture which is minimally displaced on admission. Admission Exam Per Admitting Provider General: awake, alert, no apparent distress, + underbite Head: Normocephalic, atraumatic ENT: PERRL, EOMI, no pharyngeal exudate, mucous membranes moist Chest: Clear to auscultation, on room air, no adventitious breath sounds Cardiac: Regular rate and rhythm, + systolic ejection murmur, no JVD, normal peripheral pulses, good capillary refill Abdominal: NABS x 4 quadrants, soft, nondistended, nontender to palpation, no rebound or guarding Extremities: + few areas of ecchymosis on bilateral arms and legs, otherise normal inspection, no peripheral edema or erythema, calfs nontender to palpation Psych: Happy mood and affect Neuro: AAO x 3, strength intact bilaterally and rated 5/5, no motor deficits, speech is clear, no peripheral sensory deficits Principal Diagnosis Fracture of left pubic ramus Ambulatory dysfunction Hyponatremia Discharge Exam Constitutional + well hydrated; no acute distress Eyes PERRL, conjunctivae normal, anicteric sclerae ENMT external ear and nose normal, oropharynx normal Respiratory normal respiratory effort, lungs clear to auscultation Cardiovascular Rate/Rhythm: regular rate and regular rhythm S1 S2 Gastrointestinal (Abdomen) normal bowel sounds, soft, nontender, no hepatosplenomegaly Musculoskeletal No pedal edema Neurologic Follows simple commands Discharge Data Allergies Allergy/AdvReac Type Severity Reaction Status Date / Time lactose Allergy Intermediate GI SYMPTOMS Verified 04/08/22 09:04 aspirin Allergy Unknown UNKNOWN Verified 04/08/22 09:04 REACTION cephalexin Allergy Unknown UNKNOWN Verified 04/08/22 09:04 REACTION Cephalosporins Allergy Unknown UNKNOWN Verified 04/08/22 09:04 REACTION Corticosteroids Allergy Unknown UNKNOWN Verified 04/08/22 09:04 (Glucocorticoids) REACTION methylprednisolone Allergy Unknown UNKNOWN Verified 04/08/22 09:04 REACTION shellfish derived Allergy Unknown UNKNOWN Verified 04/08/22 09:04 REACTION Consultations 05/01/22 14:27 Consult Orthopedic Surgery Routine 05/01/22 14:53 ED Decision to Admit Stat Ordered Studies 05/01/22 08:54 CT head/brain wo con Stat Brain parenchyma: There is age-related involutional change noting mild subcortical and periventricular microangiopathic disease. There is no hemorrhage, mass effect, or evidence of acute territorial ischemia by CT criteria. Alvarez-white matter differentiation is preserved. No extra-axial fluid collection is seen. Mineralization is noted in the basal ganglia. Ventricles, sulci, cisterns: Prominent secondary to involutional change. Intracranial vasculature: There is atherosclerotic calcification of the cavernous carotid and vertebral arteries. Calvarium: The skeletal structures are osteopenic. No depressed calvarial fracture is identified. Sinuses and mastoids: The paranasal sinuses are clear. There is trace left mastoid effusion. The right mastoid air cells are well pneumatized. Orbits: The bony orbits are grossly intact. There are bilateral ocular lens implants. IMPRESSION: There is no hemorrhage, mass effect, or evidence of acute territorial ischemia by CT criteria. Hospital Course (1) Fracture of pubic ramus: (2) Ambulatory dysfunction: Hip XR showed minimally displaced fractures of the ischial pubic rami on the left Ortho evaluation noted No surgical intervention required PT/OT evaluated and rehab recommended (3) Intellectual disability: (4) Aortic stenosis: Echo from december : EF of 60 to 65%, no WMA, systolic function is normal, left atrium mildly dilated, no ASD defect detected, mild aortic stenosis Was admitted in December 2021 where he had paroxysmal atrial fibrillation, they did not anticoagulate him at that time as he has an IVC filter in place, low burden of PAF per Dr. Stein's note. Monitor on telemetry with unwitnessed fall as described above (5) Diabetes mellitus, type 2: Last A1c = 5.6 in December 2021 A1c today is 6.4 Continue home antidiabetics (6) Hyponatremia: - Na is 132 on admission Got NSS at 125 mL /hr for 1 L on admission Na is 133 today (7) Chronic obstructive pulmonary disease: -Noted, chronic, poor compliance with inhalers per caregiver we will order Incruse Ellipta while admitted Total Time Total Time Spent Total Time Spent (In Minutes): 35 Total Time Includes: Examination of the Patient, Discharge Planning and Medication Reconciliation Discharge Plan Discharge Items Patient Disposition: Transfer Inpatient Rehab Fac Reason For Visit: Fall Discharge Diagnosis: Fall Fracture of pubic ramus Hyponatremia Activity: As commented below Activity Comment: Per physical therapist Weightbearing Comment: Weight bearing as tolerated Non-emergency contact: Primary Care Provider Call non-emergency contact if: you have any medication questions Follow-up/Referrals: Andrew Montague MD [Primary Care Provider] - Maximiliano Purcell MD [Surgeon] - Diet: Carb Consistent or DM2 and Heart Healthy Addtl Attending Provider Instructions: Mr Kendall was brought to the hospital after an unwitnessed fall. Evaluation revealed a minimally displaced fracture of left ischial pubic ramus. He is discharged to [facility] for rehab. He may follow up with Surgeon Dr Purcell in 2 weeks. Pending Studies at Discharge: No Stand-Alone Forms: My [facility] Skilled Items Patient informed of condition?: Yes DNR: Yes Discharge Level of Care: Acute rehab Communicable Disease: No Discharge Prognosis: Stable Lines: None Urinary Catheter: No Medications and DC Order Prescriptions: Continued oxcarbazepine 150 mg tablet 150 mg PO BID RF: 0 Systane Gel 0.3 % gel 1 drp ophthalmic (eye) QID PRN (Reason: Dry Eyes) RF: 0 trazodone 50 mg Tablet 50 mg PO HS RF: 0 loperamide [Imodium A-D] 2 mg Tablet 2 mg PO UD PRN (Reason: Diarrhea) RF: 0 simvastatin [Zocor] 40 mg Tablet 40 mg PO HS RF: 0 metoclopramide HCl [Reglan] 5 mg Tablet 5 mg PO ACHS RF: 0 albuterol sulfate [ProAir HFA] 90 mcg/actuation Hfa Aerosol Inhaler 2 puff INHALATION Q4H PRN (Reason: Shortness Of Breath) RF: 0 cholecalciferol (vitamin D3) [Vitamin D3] 1,000 unit Capsule 1,000 unit PO QAM RF: 0 Januvia 100 mg tablet 100 mg PO QAM RF: 0 omeprazole 20 mg Tablet,Delayed Release (Dr/Ec) 20 mg PO QAM RF: 0 guaifenesin [Mucinex] 600 mg Tablet Extended Release 12hr 600 mg PO Q12H RF: 0 magnesium oxide 400 mg magnesium Tablet 400 mg PO BID RF: 0 pentoxifylline 400 mg tablet extended release 400 mg PO TID RF: 0 loratadine [Claritin] 10 mg Tablet 10 mg PO QAM RF: 0 Incruse Ellipta 62.5 mcg/actuation blister with device 1 inh INHALATION QAM RF: 0 multivitamin [Daily-Shaka] Tablet 1 tab PO QAM Qty: 0 RF: 0 clonazepam 0.5 mg Tablet 0.5 mg PO BID RF: 0 glimepiride 4 mg Tablet 4 mg PO BID RF: 0 alum-mag hydroxide-simeth 200-200-20 mg/5 mL Suspension 30 ml PO QPM RF: 0 escitalopram oxalate 20 mg tablet 20 mg PO QAM RF: 0 metformin 500 mg tablet extended release 24 hr 1,000 mg PO BIDM RF: 0 risperidone 2 mg tablet 2 mg PO TID RF: 0 Changed acetaminophen [Tylenol] 325 mg tablet 650 mg PO QID PRN (Reason: pain) Qty: 0 RF: 0 Discharge Orders: Discharge Order (Routine); Ordered 05/03/22 Ordered By: Galilea Parham Admission Data Admit Date/Time: 05/01/22 15:28 Attending Provider: Galilea Parham I. Admit Provider: Champ Yanes Primary Care Provider: Andrew Montague Other Providers: Renard Ledbetter ; Champ Yanes ; [facility] Other Interventions: Discharge Summary Assessment (RN) Last Done: 05/03/22 11:59
== END 2022-05-03 15:52 | DRG 536 ==
LOC: ED 08:08 → 3N 15:28 → SUATTDRO 15:28 → 3N 16:17 → 2N 19:05

== ENCOUNTER 2022-11-24 07:59 | Inpatient (IN) ==
[2022-11-24] MEDS ORDERED: SODIUM CHLORIDE 0.9% 1000ML 1,000 ML IV SCH ×2 (08:15→11:05)
--- NOTE | 2022-11-24 08:19 | Emergency Department Note ---
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 fib, type 2 diabetes who has been dealing with recurrent sacral ulcers. He arrives for evaluation of worsening mental status. On examination patient is encephalopathic he is dehydrated he has very poor lung sounds and he is hypoxic with tachycardia. Rectal temperature is elevated. This is consistent with sev ere sepsis given his hypoxia and encephalopathy. Initial blood pressures were stable. He was ordered 2.5 L normal saline bolus IV. He was given empiric Unasyn IV for presumed aspiration because of large pneumonia seen on chest x- ray. Laboratory findings are consistent with infectious etiology. His sacral ulcer is not consistent with acute infection. Following fluid resuscitation patient is much more awake and looking around room. He appears well-hydrated. Hospitalist consulted for further management. I will note that the chemistry machine in the lab was down and POC chemistries were done at bedside. Prior Medical Record and Triage/Nursing Notes reviewed by Me Extensive outpatient records reviewed including his wound care appointment from just a few days ago. Differentials:Sepsis, pneumonia, sacral infection, influenza, COVID, electrolyte imbalance, uti, ACS, neurologic amongst many other pathologies considered Vital Signs: reviewed and remarkable for mild tachycardia, hypoxia, fever Interventions: Normal saline bolus 2.5 L IV, Unasyn 3 g IV, acetaminophen 1 g IV Labs:Reviewed and remarkable for elevated procalcitonin, hyperglycemia Imagin view chest x-ray interpreted by me reveals a large right lower/middle lobe infiltrate which is new from previous x-rays EKG:As per my interpretation. Indication illness. Normal sinus rhythm at 78 bpm with a QTC of 423. There is a right bundle branch block which appears so mewhat new compared to the EKG from May 01, 2022. There is no ectopy nor significant ischemia Cardiac/Tele Monitoring: Cardiac Monitoring: An Order was placed for continuous cardiac monitoring. The monitor shows a rate of 80 with a normal sinus rhythm. [facility] Plan: Disposition:Hospitalization. Condition: Fair History of Present Illness:59-year-old male arrives for evaluation of illness. Patient with a long history of medical comorbidities including paroxysmal A. fib, cerebral palsy, GERD, diabetes, COPD, anemia, hyponatremia, difficulty dealing with pressure ulcers of sacrum and heels. He has been treated for a sacral ulcer the last few months which per wound care has been slowly improving. He has been on an amoxicillin regimen for the last 2 weeks for sacral infection as well. Over the last few days worsening weakness and fatigue. This morning cough and shortness of breath and confusion. EMS arrived to find patient hypoxic placed on nasal cannula O2 brought to ER. No interventions prior to arrival. Unknown if anything makes better or worse. No falls, trauma, injuries. No known sick contacts. Past History:See Below as per chart Home Medications:See Below Allergies:See Below Vitals:Blood Pressure: 110/60, Pulse 110, RR 24, T 38.6C, O2 82% on RA Physical Exam: GENERAL: Patient is chronically unwell appearing and in minimal distress. Appears somnolent but opens eyes to void EYES: No scleral icterus, unremarkable pupils. ENT: Mucous membranes moist, ++ nasal congestion. RESPIRATORY: Mild tachypnea with junky breath sounds throughout, Right worse than left CARDIOVASCULAR: Tachycardic irregular and mild systolic murmur GASTROINTESTINAL: Abdomen soft, non-tender, no peritonitis.Bowel sounds positive.No masses appreciated. EXTREMITIES: Generalized weakness all extremities at cachexia. Healing ulceration right heel. Mild erythema of the left foot no specific cellulitis noted NEUROLOGIC: Somnolent awakens to voice weakly moves arms no movement in legs noted. SKIN: No rash, no jaundice, no diaphoresis. ED Course: Times/Reassessments: Multiple repeat evaluations patient throughout his stay. He is vastly improved after IV hydration he is interactive his blood pressure has remained stable his heart rate is down into the 70s. Oxygenation remains at mid 90s while on nasal cannula. He is awake and much more interactive. Critical Care: I have personally spent 40 minutes of critical care time in the direct management of this patient. Acute severe sepsis secondary to pneumonia resulting in hypoxia and encephalopathy requiring rapid resuscitation. This was a life/limb threatening event. This 40 minutes is in excess of all separately billable procedures. Varun Win MD Past Med/Surg History Medical History Anxiety Aortic stenosis Mild per 09/2021 ECHO Asthma CAP (community acquired pneumonia) Cerebral palsy Chronic obstructive pulmonary disease Well controlled > hasnt used res inh for 2 yrs Depression Diabetes mellitus, type 2 DJD (degenerative joint disease) Femoral condyle fracture GERD (gastroesophageal reflux disease) History of COVID-19 Tested positive 09/21/21 [facility] ([facility] Sinus congestion only. no hospitalization. No current problems. Hospital-acquired pneumonia Hyperlipidemia Hypotension Intellectual disability Lives at [facility] Neuropathy [place] (obstructive sleep apnea) Per records Osteoporosis Peroneal palsy Pica Presence of IVC filter Placed in 1997 per records PVD (peripheral vascular disease) Scoliosis Tibia fracture TMJ (temporomandibular joint disorder) Venous insufficiency Surgical History History of cholecystectomy History of colonoscopy History of tooth extraction S/P cataract surgery Left and Right Family History Father Coronary heart disease Social History (Updated 11/24/22 @ 11:29 by Amy Huston PA-C) Smoking Status: Former smoker packs per day: 30; Second Hand Exposure: No; Hx Alcohol Use: No Preferred Language: Portuguese Communication Ability: Effective Communication Tools: Other Visual Impairment: No Limitations Hearing Ability: Use of Hearing Aid Fiscal Economist Required: No Beliefs That Will Affect Care: None marital status: Single marital status details: Skills Current Living Situation: Other Current Living Situation Comment: Skilled in intermediate current occupational status: disabled How many Children do You have: 0 Feels Safe at Home: Yes caffeine: No Assistive Devices: Walker Allergies Allergies Allergy/AdvReac Type Severity Reaction Status Date / Time lactose Allergy Intermediate GI SYMPTOMS Verified 11/24/22 09:50 aspirin Allergy Unknown UNKNOWN Verified 11/24/22 09:50 REACTION cephalexin Allergy Unknown UNKNOWN Verified 11/24/22 09:50 REACTION Cephalosporins Allergy Unknown UNKNOWN Verified 11/24/22 09:50 REACTION Corticosteroids Allergy Unknown UNKNOWN Verified 11/24/22 09:50 (Glucocorticoids) REACTION methylprednisolone Allergy Unknown UNKNOWN Verified 11/24/22 09:50 REACTION shellfish derived Allergy Unknown UNKNOWN Verified 11/24/22 09:50 REACTION Home Meds Home Medications Medication Instructions Recorded Confirmed albuterol sulfate 90 mcg/actuation 2 puff inhalation Q4H PRN 12/23/18 11/24/22 aerosol inhaler (ProAir HFA) Shortness Of Breath cholecalciferol (vitamin D3) 25 1,000 unit PO QAM 12/23/18 11/24/22 mcg (1,000 unit) capsule (Vitamin D3) guaifenesin 600 mg tablet, 600 mg PO Q12H 12/23/18 11/24/22 extended release 12 hr (Mucinex) loperamide 2 mg tablet (Imodium 2 mg PO UD PRN Diarrhea 12/23/18 11/24/22 A-D) magnesium oxide 400 mg PO BID 12/23/18 11/24/22 metoclopramide HCl 5 mg tablet 5 mg PO ACHS 12/23/18 11/24/22 (Reglan) omeprazole 20 mg tablet,delayed 20 mg PO QAM 12/23/18 11/24/22 release simvastatin 40 mg tablet (Zocor) 40 mg PO HS 12/23/18 11/24/22 sitagliptin phosphate 100 mg 100 mg PO QAM 12/23/18 11/24/22 tablet (Januvia) trazodone 50 mg tablet 50 mg PO HS MOOD 12/23/18 11/24/22 loratadine 10 mg tablet (Claritin) 10 mg PO QAM 04/03/20 11/24/22 pentoxifylline 400 mg 400 mg PO TID 04/03/20 11/24/22 tablet,extended release umeclidinium 62.5 mcg/actuation 1 inh inhalation QAM 03/02/21 11/24/22 blister powder for inhalation (Incruse Ellipta) risperidone 2 mg tablet 2 mg PO TID 03/11/21 11/24/22 aluminum-mag hydroxide-simethicone 30 ml PO QPM 11/23/21 11/24/22 200 mg-200 mg-20 mg/5 mL oral susp clonazepam 0.5 mg tablet 0.5 mg PO BID anxiety 11/23/21 11/24/22 multivitamin (Daily-Shaka tablet) 1 tab PO QAM ##0 11/23/21 11/24/22 escitalopram oxalate 20 mg tablet 20 mg PO QAM 01/03/22 11/24/22 metformin 500 mg tablet,extended 1,000 mg PO BIDM 01/03/22 11/24/22 release 24 hr artificial tears(hypromellose) 0.3 1 drp ophthalmic (eye) QID PRN Dry 04/08/22 11/24/22 % eye gel (Systane Gel) Eyes oxcarbazepine 150 mg tablet 150 mg PO BID 04/08/22 11/24/22 gabapentin 300 mg capsule 300 mg PO TID 11/24/22 11/24/22 glimepiride 1 mg tablet 1 mg PO DAILY 11/24/22 11/24/22 Previous Rx's Medication Instructions Recorded acetaminophen 325 mg tablet 650 mg PO QID PRN pain #0 tabs 05/03/22 (Tylenol) Results & Data (ED) Vital Signs Vital Signs - 24 hr 11/24/22 08:29 11/24/22 08:37 11/24/22 08:05 Temperature 38.8 C H Temperature Source Rectal Pulse Rate 97 H Pulse Rate from SpO2 Sensor Respiratory Rate 26 H Respiratory Effort / Characteristics Non-Labored Blood Pressure 110/54 L 111/55 L Blood Pressure Mean 72 73 Pulse Oximetry 97 97 Oxygen Delivery Method Nasal Cannula Nasal Cannula Oxygen Flow Rate 3 3 Sepsis Recent Fever Within 48 Hours Yes Sepsis New/Unexplained Change in Mental Status Yes Sepsis Action Taken by Nursing Physician Notified 11/24/22 08:05 11/24/22 08:22 11/24/22 08:22 Temperature Temperature Source Pulse Rate 99 H 97 H Pulse Rate from SpO2 Sensor 99 H 97 H Respiratory Rate 26 H 24 Respiratory Effort / Characteristics Blood Pressure 110/56 L Blood Pressure Mean 74 Pulse Oximetry 97 97 Oxygen Delivery Method Oxygen Flow Rate 3 3 Sepsis Recent Fever Within 48 Hours Sepsis New/Unexplained Change in Mental Status Sepsis Action Taken by Nursing 11/24/22 08:30 11/24/22 08:30 11/24/22 09:00 Temperature Temperature Source Pulse Rate 93 H Pulse Rate from SpO2 Sensor 93 H Respiratory Rate 21 Respiratory Effort / Characteristics Blood Pressure 110/54 L 109/51 L Blood Pressure Mean 72 70 Pulse Oximetry 98 Oxygen Delivery Method Oxygen Flow Rate 3 Sepsis Recent Fever Within 48 Hours Sepsis New/Unexplained Change in Mental Status Sepsis Action Taken by Nursing 11/24/22 09:00 Temperature Temperature Source Pulse Rate 92 H Pulse Rate from SpO2 Sensor 92 H Respiratory Rate 25 H Respiratory Effort / Characteristics Blood Pressure Blood Pressure Mean Pulse Oximetry 99 Oxygen Delivery Method Oxygen Flow Rate 3 Sepsis Recent Fever Within 48 Hours Sepsis New/Unexplained Change in Mental Status Sepsis Action Taken by Nursing Laboratory Data 11/24/22 08:26 11/24/22 08:26 Lab Results 11/24/22 11/24/22 11/24/22 Range/Units 08:24 08:24 08:26 WBC 8.15 (4.8-10.8) K/ul RBC 3.10 L (4.70-6.10) M/uL Hgb 10.1 L (14.0-18.0) g/dl Hct 31.0 L (42.0-52.0) % MCV 100.0 (80.0-100.0) fL MCH 32.6 (25.0-34.0) pg MCHC 32.6 (32.0-36.0) g/dL RDW Std Deviation 50.4 H (36.4-46.3) fL RDW Coeff of Drew 13.7 (11.5-14.5) % Plt Count 154 (130-400) K/uL MPV 11.4 (9.4-12.4) fL Immature Gran % (Auto) 0.5 % Neut % (Auto) 91.2 % Lymph % (Auto) 3.4 % [place] % (Auto) 4.5 % Eos % (Auto) 0.0 % Baso % (Auto) 0.4 % Neut # (Auto) 7.43 H (1.40-6.50) K/uL Lymph # (Auto) 0.28 L (1.2-3.4) K/uL [place] # (Auto) 0.37 (0.11-0.59) K/uL Eos # (Auto) 0.00 (0-0.50) K/uL Baso # (Auto) 0.03 (0-0.2) K/uL Immature Gran # (Auto) 0.04 (0.01-0.20) K/uL Toxic Vacuolation 1+ Lactate (0.4-2.0) mmol/L Troponin I High Sens (0-20) pg/ml Procalcitonin Urine Color Dark Yellow Urine Appearance Clear (Clear) Urine pH 5.0 (4.5-7.5) Ur Specific [place] 1.024 (1.000-1.030) Urine Protein Trace H (Negative) Urine Glucose (UA) Negative (Negative) Urine Ketones 1+ H (Negative) Urine Blood Negative (Negative) Urine Nitrite Negative (Negative) Urine Bilirubin Negative (Negative) Urine Urobilinogen Negative (Negative) Ur Leukocyte Esterase Negative (Negative) Urine WBC (Auto) 1-5 (0-5) /hpf Urine RBC (Auto) 0-4 (0-4) /hpf U Hyaline Cast (Auto) 1-5 (0-5) /lpf U Epithel Cells (Auto) 5-10 H (0-5) /lpf Urine Bacteria (Auto) Negative (Negative) Nasal Screen MRSA (PCR) (Negative) SARS-CoV-2 (PCR) NEGATIVE (Negative) Influenza Type A (PCR) Negative (Neg) Influenza Type B (PCR) Negative (Neg) RSV (RT-PCR) Negative (Neg) 11/24/22 11/24/22 11/24/22 Range/Units 08:26 08:26 08:26 WBC (4.8-10.8) K/ul RBC (4.70-6.10) M/uL Hgb (14.0-18.0) g/dl Hct (42.0-52.0) % MCV (80.0-100.0) fL MCH (25.0-34.0) pg MCHC (32.0-36.0) g/dL RDW Std Deviation (36.4-46.3) fL RDW Coeff of Drew (11.5-14.5) % Plt Count (130-400) K/uL MPV (9.4-12.4) fL Immature Gran % (Auto) % Neut % (Auto) % Lymph % (Auto) % [place] % (Auto) % Eos % (Auto) % Baso % (Auto) % Neut # (Auto) (1.40-6.50) K/uL Lymph # (Auto) (1.2-3.4) K/uL [place] # (Auto) (0.11-0.59) K/uL Eos # (Auto) (0-0.50) K/uL Baso # (Auto) (0-0.2) K/uL Immature Gran # (Auto) (0.01-0.20) K/uL Toxic Vacuolation Lactate 0.7 (0.4-2.0) mmol/L Troponin I High Sens 163.8 H* (0-20) pg/ml Procalcitonin Cancelled Urine Color Urine Appearance (Clear) Urine pH (4.5-7.5) Ur Specific [place] (1.000-1.030) Urine Protein (Negative) Urine Glucose (UA) (Negative) Urine Ketones (Negative) Urine Blood (Negative) Urine Nitrite (Negative) Urine Bilirubin (Negative) Urine Urobilinogen (Negative) Ur Leukocyte Esterase (Negative) Urine WBC (Auto) (0-5) /hpf Urine RBC (Auto) (0-4) /hpf U Hyaline Cast (Auto) (0-5) /lpf U Epithel Cells (Auto) (0-5) /lpf Urine Bacteria (Auto) (Negative) Nasal Screen MRSA (PCR) (Negative) SARS-CoV-2 (PCR) (Negative) Influenza Type A (PCR) (Neg) Influenza Type B (PCR) (Neg) RSV (RT-PCR) (Neg) 11/24/22 11/24/22 Range/Units 09:03 09:06 WBC (4.8-10.8) K/ul RBC (4.70-6.10) M/uL Hgb (14.0-18.0) g/dl Hct (42.0-52.0) % MCV (80.0-100.0) fL MCH (25.0-34.0) pg MCHC (32.0-36.0) g/dL RDW Std Deviation (36.4-46.3) fL RDW Coeff of Drew (11.5-14.5) % Plt Count (130-400) K/uL MPV (9.4-12.4) fL Immature Gran % (Auto) % Neut % (Auto) % Lymph % (Auto) % [place] % (Auto) % Eos % (Auto) % Baso % (Auto) % Neut # (Auto) (1.40-6.50) K/uL Lymph # (Auto) (1.2-3.4) K/uL [place] # (Auto) (0.11-0.59) K/uL Eos # (Auto) (0-0.50) K/uL Baso # (Auto) (0-0.2) K/uL Immature Gran # (Auto) (0.01-0.20) K/uL Toxic Vacuolation Lactate (0.4-2.0) mmol/L Troponin I High Sens (0-20) pg/ml Procalcitonin 9.29 H Urine Color Urine Appearance (Clear) Urine pH (4.5-7.5) Ur Specific [place] (1.000-1.030) Urine Protein (Negative) Urine Glucose (UA) (Negative) Urine Ketones (Negative) Urine Blood (Negative) Urine Nitrite (Negative) Urine Bilirubin (Negative) Urine Urobilinogen (Negative) Ur Leukocyte Esterase (Negative) Urine WBC (Auto) (0-5) /hpf Urine RBC (Auto) (0-4) /hpf U Hyaline Cast (Auto) (0-5) /lpf U Epithel Cells (Auto) (0-5) /lpf Urine Bacteria (Auto) (Negative) Nasal Screen MRSA (PCR) Negative (Negative) SARS-CoV-2 (PCR) (Negative) Influenza Type A (PCR) (Neg) Influenza Type B (PCR) (Neg) RSV (RT-PCR) (Neg) Administered Medications Guaifenesin (Guaifenesin 600 Mg Tabcr) 600 mg PO Q12 [facility] Stop: 12/24/22 11:04 Last Admin: 11/24/22 12:34 Dose: Not Given Documented By: GENOVEVA Sodium Chloride (Nss 1000ml) 1,000 mls @ 70 mls/hr IV .[id number] [facility] Stop: 11/25/22 01:22 Last Admin: 11/24/22 12:39 Dose: 70 mls/hr Documented By: GENOVEVA Insulin Aspart (Insulin Aspart Per Unit) 0 units SC [facility] Stop: 12/24/22 11:29 Last Admin: 11/24/22 12:39 Dose: 7 units Documented By: GENOVEVA Co-signed By: CONRADO Metoclopramide HCl (Metoclopramide Hcl 5 Mg Tablet) 5 mg PO [facility]; Protocol Stop: 12/24/22 11:29 Last Admin: 11/24/22 12:34 Dose: Not Given Documented By: GENOVEVA Risperidone (Risperidone 2 Mg Tablet) 2 mg PO TID [facility] Stop: 12/24/22 13:59 Last Admin: 11/24/22 14:02 Dose: Not Given Documented By: GENOVEVA Discontinued Medications Sodium Chloride (Nss 1000ml) 1,000 mls @ 999 mls/hr IV .Q1H1M SEN Stop: 11/24/22 09:15 Last Infusion: 11/24/22 09:36 Dose: 0 mls/hr Documented By: Admin: 11/24/22 08:28 Dose: 999 mls/hr Documented By: DARNELL Sodium Chloride (Nss 1000ml) 1,000 mls @ 999 mls/hr IV .Q1H1M ONE Stop: 11/24/22 09:50 Last Infusion: 11/24/22 10:16 Dose: 0 mls/hr Documented By: Admin: 11/24/22 08:58 Dose: 999 mls/hr Documented By: DARNELL Sodium Chloride (Nss 1000ml) 500 mls @ 999 mls/hr IV .Q31M ONE Stop: 11/24/22 09:20 Last Infusion: 11/24/22 09:36 Dose: 0 mls/hr Documented By: Admin: 11/24/22 08:59 Dose: 999 mls/hr Documented By: DARNELL Ampicillin Sodium/Sulbactam Sodium 3,000 mg/ Sodium Chloride 108 mls @ 200 mls/hr IV NOW STA; Protocol Stop: 11/24/22 09:22 Last Infusion: 11/24/22 09:45 Dose: 0 mls/hr Documented By: Admin: 11/24/22 09:08 Dose: 200 mls/hr Documented By: JM Acetaminophen (Ofirmev) 1,000 mg in 100 mls @ 400 mls/hr IV NOW STA Stop: 11/24/22 09:05 Last Infusion: 11/24/22 09:13 Dose: 0 mls/hr Documented By: Admin: 11/24/22 08:57 Dose: 400 mls/hr Documented By: DARNELL Insulin Glargine (Lantus Per Unit Charge) 10 units SQ NOW STA Stop: 11/24/22 12:49 Last Admin: 11/24/22 14:02 Dose: 10 units Documented By: GENOVEVA Co-signed By: [facility] Imaging Data Radiologist's Impression: Chest X-Ray 11/24/22 08:14 XR chest 1V portable CLINICAL HISTORY: Sepsis. COMPARISON STUDY: Chest CT August 15, 2021 and chest radiograph March 23, 2022. FINDINGS: IVC filter is unchanged in position. There is no pneumothorax or pleural effusion. Extensive right mid and lower lung airspace opacity has developed. Lower lung interstitial thickening is unchanged. Cardiomegaly is unchanged. There are old bilateral rib fractures. S-shaped thoracolumbar spine scoliosis. IMPRESSION: Right mid and lower lung consolidation suggestive of pneumonia. Pos t treatment radiographs to ensure resolution are recommended. ACT 112: Negative or not required by law. Electronically signed by: Matias Benson M.D. 11/24/2022 8:54 AM Discharge Plan Visit Data Chief Complaint: Illness Stated Complaint: illness ED Provider: Varun Win Discharge Problem: Severe sepsis, Hypoxia, Right lower lobe pneumonia Patient Disposition: Admitted As Inpatient Discharge Instructions Interventions: ED Discharge Assessment Last Done: 11/24/22 10:32 : Right lower lobe pneumonia Qualifiers: Pneumonia type: aspiration pneumonia Aspiration pneumonia type: unspecified Qualified Code(s): J69.0 - Pneumonitis due to inhalation of food and vomit
[2022-11-24 08:41] LABS: Hemoglobin 10.1 g/dl (14.0-18.0); Mean Corpuscular Hemoglobin 32.6 pg (25.0-34.0); Mean Corpuscular Hgb Conc 32.6 g/dL (32.0-36.0); Mean Platelet Volume 11.4 fL (9.4-12.4); Platelet Count 154 K/uL (130-400); RDW Coefficient of Variation 13.7 % (11.5-14.5); RDW Standard Deviation 50.4 fL (36.4-46.3); White Blood Count 8.15 K/ul (4.8-10.8)
[2022-11-24] MEDS ORDERED: SODIUM CHLORIDE 0.9% 1000ML 1,000 ML IV ONE (08:50)
[2022-11-24] MEDS ORDERED: AMPICILLIN/SULBACTAM SOD 3,000 MG in 0.9 % SODIUM CHLORIDE 100 ML IV STA (08:50)
[2022-11-24] MEDS ORDERED: SODIUM CHLORIDE 0.9% 1000ML 500 ML IV ONE (08:50)
[2022-11-24] MEDS ORDERED: ACETAMINOPHEN 1,000 MG/100 ML VIAL IV STA (08:51)
--- NOTE | 2022-11-24 08:55 | XRay Report ---
XR chest 1V portable CLINICAL HISTORY: Sepsis. COMPARISON STUDY: Chest CT August 15, 2021 and chest radiograph March 23, 2022. FINDINGS: IVC filter is unchanged in position. There is no pneumothorax or pleural effusion. Extensiv e right mid and lower lung airspace opacity has developed. Lower lung interstitial thickening is unch anged. Cardiomegaly is unchanged. There are old bilateral rib fractures. S-shaped thoracolumbar spine scoliosis. IMPRESSION: Right mid and lower lung consolidation suggestive of pneumonia. Post treatment radiograp hs to ensure resolution are recommended. ACT 112: Negative or not required by law. Electronically signed by: Matias Benson M.D. 11/24/2022 8:54 AM
[2022-11-24 09:00] LABS: Basophils # (auto) 0.03 K/uL (0-0.2); Basophils % (auto) 0.4 %; Immature Granulocytes # (auto) 0.04 K/uL (0.01-0.20); Immature Granulocytes % (auto) 0.5 %; Lymphocytes # (auto) 0.28 K/uL (1.2-3.4); Lymphocytes % (auto) 3.4 %; Monocytes # (auto) 0.37 K/uL (0.11-0.59); Monocytes % (auto) 4.5 %; Neutrophils # (auto) 7.43 K/uL (1.40-6.50); Neutrophils % (auto) 91.2 %; Toxic Vacuolation 1+
[2022-11-24 09:03] LABS: Appearance Urine Clear (Clear); Bacteria Urine Automated Negative (Negative); Bilirubin Urine Negative (Negative); Blood Urine Negative (Negative); Color Urine Dark Yellow; Glucose Urine UA Negative (Negative); Ketones Urine 1+ (Negative); Leukocyte Esterase Urine Negative (Negative); Nitrite Urine Negative (Negative); Protein Urine Trace (Negative); RBC Urine Automated 0-4 /hpf (0-4); Specific Gravity Urine 1.024 (1.000-1.030); Urobilinogen Urine Negative (Negative)
[2022-11-24 09:18] LABS: Troponin I High Sensitivity 163.8 pg/ml (0-20)
[2022-11-24 09:43] LABS: Influenza A virus by PCR Negative (Neg); Influenza B virus by PCR Negative (Neg); RSV by PCR Negative (Neg); SARS CoV2 RNA(COVID-19) Ceph NEGATIVE (Negative)
--- NOTE | 2022-11-24 09:58 | History & Physical Report ---
Date of Service November 24, 2022 Assessment & Plan (1) Sepsis: (2) Acute hypoxemic respiratory failure: (3) Pneumonia: (4) Elevated troponin: (5) Pressure ulcer of coccygeal region, stage 3: (6) Diabetes mellitus, type 2: (7) Anemia: (8) Intellectual disability: Plan This is a 67-year-old male who has a significant past medical history of PAF, T2DM, COPD, TRINIDAD, chronic stasis dermatitis, intellectual disability and hyperlipidemia who presents to ED secondary to unresponsiveness and hypoxia. Per CMS criteria patient meets for sepsis secondary to tachycardia and fever. In ED he received 2.7 L of IV fluid resuscitation with improvement in tachycardia. He received APAP for fever. Source: Right sided pneumonia He received broad-spectrum antibiotics with IV Unasyn. Blood cultures are pending He was hemodynamically stable at time of admission with low to normal blood p ressure 99/50 but heart rate of 85. Sepsis Acute hypoxic respiratory failure Right-sided pneumonia Admit to telemetry Continue IV Unasyn Supplemental oxygen, titrate as needed Albuterol neb treatment as needed, continue daily incruse Continue with gentle IV fluid for additional 1 L, 70 cc/h Aspirations precautions Speech therapy eval, former eval approximately 1 year ago, reviewed notes awaiting bmp, lactate results Elevated troponin No formal history of CAD documented Likely demand in setting of underlying sepsis, no reports of chest pain or ischemic EKG change Cycle troponins, repeat EKG in a.m. obtain echocardiogram Last echo December 2021 which revealed preserved EF 60 to 65%, mild concentric LVH, mild valvular aortic stenosis T2DM Last A1c 6.2 on 08/16/2022; obtain A1c in a.m. Lantus/NovoLog per protocol Hold home medications of metformin and Januvia Stage 3 coccyx wound following wound care has been on oral amoxicillin, to finish 11/25 currently on IV unasyn turn and position q2, consult wound care continue Howard Intellectual disability resides at [facility] longterm wheel chair bound at baseline continue oxcarbazepine, trazodone, risperidone COPD no acute exac continue incruse prn albuterol Hx of PAF in NSR, not on any rate/rhythm agents not on OAC HLD continue statin PVD/PAD Chronic stasis dermatitis no signs of cellulitis continue pentoxifylline DVT ppx: SQ Lovenox Dispo: Tele PCP: Clari FULL CODE - discussed with [facility] Pt was seen and examined in collaboration with Dr. Alcantar, please see addendum A total of 75 minutes were spent with greater than 50% of that time face to face with the patient, personally reviewing all current laboratories, imaging studies, past medication reconciliation, outpatient chart review, and discussion with specialists to collaborate care for the patient with attending. Please see attending documentation for corrections and/or additions. History of Present Illness Chief Complaint: Cough x 2 days. Primary Care Provider: Andrew Montague MD This is a 67-year-old male who has a significant past medical history of PAF, T2DM, COPD, TRINIDAD, chronic stasis dermatitis, intellectual disability and hyperlipidemia who presents to ED secondary to unresponsiveness and hypoxia. Patient has underlying intellectual ability and lives at [facility]. Per staff at facility they noted a decline in patient over the last 2 days. He has had a wet cough for the last 2 days and overall just moving more slow. They also report a decreased appetite over the last 2 days. He did have elevated temperature at 100.2 but denied any nausea, vomiting or diarrhea. At baseline patient is usually alert and happy. His blood sugars have been running in the 200s. ROS unreliable from patient. He is alert and somewhat able to answer questions but very difficult to understand given underlying electro disability. He is in a wheelchair at baseline. Patient presented via EMS and was hypoxic in the 80s requiring 3 L of oxygen supplementation. He was also febrile on arrival. He did meet sepsis criteria secondary to fever and tachycardia. According to chart he received 2700 mL of IV fluid in ED. His tachycardia did resolve. He did still remain febrile at 38.8. His WBC was WNL. His hemoglobin hematocrit were stable from baseline at 10.1 and 31.0. His BMP and LFTs are currently pending. He did have an elevated troponin at 163.8. His procalcitonin was elevated at 9.29. Urinalysis was negative for infection. Chest x-ray concerning for right-sided pneumonia. Blood cultures were sent. He did receive IV Unasyn in ED for concern for aspiration pneumonia. Per staff at [facility] he is a aspiration risk. Allergies Allergy/AdvReac Type Severity Reaction Status Date / Time lactose Allergy Intermediate GI SYMPTOMS Verified 11/24/22 09:50 aspirin Allergy Unknown UNKNOWN Verified 11/24/22 09:50 REACTION cephalexin Allergy Unknown UNKNOWN Verified 11/24/22 09:50 REACTION Cephalosporins Allergy Unknown UNKNOWN Verified 11/24/22 09:50 REACTION Corticosteroids Allergy Unknown UNKNOWN Verified 11/24/22 09:50 (Glucocorticoids) REACTION methylprednisolone Allergy Unknown UNKNOWN Verified 11/24/22 09:50 REACTION shellfish derived Allergy Unknown UNKNOWN Verified 11/24/22 09:50 REACTION Home Medications Medication Instructions Recorded Confirmed Type albuterol sulfate 90 mcg/actuation 2 puff inhalation Q4H PRN 12/23/18 11/24/22 History aerosol inhaler (ProAir HFA) Shortness Of Breath cholecalciferol (vitamin D3) 25 1,000 unit PO QAM 12/23/18 11/24/22 History mcg (1,000 unit) capsule (Vitamin D3) guaifenesin 600 mg tablet, 600 mg PO Q12H 12/23/18 11/24/22 History extended release 12 hr (Mucinex) loperamide 2 mg tablet (Imodium 2 mg PO UD PRN Diarrhea 12/23/18 11/24/22 History A-D) magnesium oxide 400 mg PO BID 12/23/18 11/24/22 History metoclopramide HCl 5 mg tablet 5 mg PO ACHS 12/23/18 11/24/22 History (Reglan) omeprazole 20 mg tablet,delayed 20 mg PO QAM 12/23/18 11/24/22 History release simvastatin 40 mg tablet (Zocor) 40 mg PO HS 12/23/18 11/24/22 History sitagliptin phosphate 100 mg 100 mg PO QAM 12/23/18 11/24/22 History tablet (Januvia) trazodone 50 mg tablet 50 mg PO HS MOOD 12/23/18 11/24/22 History loratadine 10 mg tablet (Claritin) 10 mg PO QAM 04/03/20 11/24/22 History pentoxifylline 400 mg 400 mg PO TID 04/03/20 11/24/22 History tablet,extended release umeclidinium 62.5 mcg/actuation 1 inh inhalation QAM 03/02/21 11/24/22 History blister powder for inhalation (Incruse Ellipta) risperidone 2 mg tablet 2 mg PO TID 03/11/21 11/24/22 History aluminum-mag hydroxide-simethicone 30 ml PO QPM 11/23/21 11/24/22 History 200 mg-200 mg-20 mg/5 mL oral susp clonazepam 0.5 mg tablet 0.5 mg PO BID anxiety 11/23/21 11/24/22 History multivitamin (Daily-Shaka tablet) 1 tab PO QAM ##0 11/23/21 11/24/22 History escitalopram oxalate 20 mg tablet 20 mg PO QAM 01/03/22 11/24/22 History metformin 500 mg tablet,extended 1,000 mg PO BIDM 01/03/22 11/24/22 History release 24 hr artificial tears(hypromellose) 0.3 1 drp ophthalmic (eye) QID PRN Dry 04/08/22 11/24/22 History % eye gel (Systane Gel) Eyes oxcarbazepine 150 mg tablet 150 mg PO BID 04/08/22 11/24/22 History acetaminophen 325 mg tablet 650 mg PO QID PRN pain #0 tabs 05/03/22 11/24/22 Rx (Tylenol) gabapentin 300 mg capsule 300 mg PO TID 11/24/22 11/24/22 History glimepiride 1 mg tablet 1 mg PO DAILY 11/24/22 11/24/22 History Past Med/Surg History Medical History Anxiety Aortic stenosis Mild per 09/2021 ECHO Asthma CAP (community acquired pneumonia) Cerebral palsy Chronic obstructive pulmonary disease Well controlled > hasnt used res inh for 2 yrs Depression Diabetes mellitus, type 2 DJD (degenerative joint disease) Femoral condyle fracture GERD (gastroesophageal reflux disease) History of COVID-19 Tested positive 09/21/21 [facility] Sinus congestion only. no hospitalization. No current problems. Hospital-acquired pneumonia Hyperlipidemia Hypotension Intellectual disability Lives at [facility] facility Neuropathy TRINIDAD (obstructive sleep apnea) Per records Osteoporosis Peroneal palsy Pica Presence of IVC filter Placed in 1997 per records PVD (peripheral vascular disease) Scoliosis Tibia fracture TMJ (temporomandibular joint disorder) Venous insufficiency Surgical History History of cholecystectomy History of colonoscopy History of tooth extraction S/P cataract surgery Left and Right Family History Father Coronary heart disease Social History (Updated 11/24/22 @ 11:29 by Amy Huston PA-C) Smoking Status: Former smoker packs per day: 30; Second Hand Exposure: No; Hx Alcohol Use: No Preferred Language: Dutch Communication Ability: Effective Communication Tools: Other Visual Impairment: No Limitations Hearing Ability: Use of Hearing Aid Conche Operator Required: No Beliefs That Will Affect Care: None marital status: Single marital status details: Skills Current Living Situation: Other Current Living Situation Comment: Skilled in longterm current occupational status: disabled How many Children do You have: 0 Feels Safe at Home: Yes caffeine: No Assistive Devices: Walker Review of Systems Review of Systems: Unobtainable due to cognitive status Physical Exam Physical Exam: Constitutional: WD/WN, male, appears older than stated age, vitals as above, NAD, sitting up in bed, alert and arousable to verbal stimulation, able to respond but difficult to understand given electrical stability Head: Normocephalic, Atraumatic Eyes: PERRL, conjunctivae normal, anicteric sclerae ENMT: external ear and nose normal, oropharynx normal very dry mucous membranes with dried sputum on lips Neck: trachea midline, no thyromegaly normal visual inspection Respiratory: normal respiratory effort, lungs clear to auscultation, no wheeze, rales, + rhonchi RLL. Normal insp/exp effort, no accessory muscle use Cardiovascular: RRR,1/6 mark, no edema but bilateral chronic venous stasis changes vessels: no JVD or carotid bruit Chest: normal inspection of chest Abdomen: normal bowel sounds, soft, nontender, no hepatosplenomegaly Musculoskeletal: no cyanosis or clubbing, unable to assess MSK due to pt unable to follow direction Skin: no rashes, warm and moderate normal turgor Neurologic: PERRL, EOMI, accommodation nl, no face palsy, no dysarthria CN's II-XI intact bilaterally and moves all extremities Psychiatric: A+O to self and place only, euthymic affect Lymphatic: no cervical or axillary lymphadenopathy : deferred Results & Data Results & Data ([facility]) Vital Signs (Past 12 Hours) Vital Signs Temp Pulse Resp BP Pulse Ox O2 Del Method O2 Flow Rate 11/24/22 09:30 90 19 97 11/24/22 09:30 91/46 L 11/24/22 09:00 92 H 25 H 99 3 11/24/22 09:00 109/51 L 11/24/22 08:30 93 H 21 98 3 11/24/22 08:30 110/54 L 11/24/22 08:22 97 H 24 97 3 11/24/22 08:22 110/56 L 11/24/22 08:05 99 H 26 H 97 3 11/24/22 08:05 111/55 L 11/24/22 08:37 97 Nasal Cannula 3 11/24/22 08:29 38.8 C H 97 H 26 H 110/54 L 97 Nasal Cannula 3 Diagnostic Findings Chest X-Ray 11/24/22 08:14 XR chest 1V portable CLINICAL HISTORY: Sepsis. COMPARISON STUDY: Chest CT August 15, 2021 and chest radiograph March 23, 2022. FINDINGS: IVC filter is unchanged in position. There is no pneumothorax or pleural effusion. Extensive right mid and lower lung airspace opacity has developed. Lower lung interstitial thickening is unchanged. Cardiomegaly is unchanged. There are old bilateral rib fractures. S-shaped thoracolumbar spine scoliosis. IMPRESSION: Right mid and lower lung consolidation suggestive of pneumonia. Post treatment radiographs to ensure resolution are recommended. ACT 112: Negative or not required by law. Electronically signed by: Matias Benson M.D. 11/24/2022 8:54 AM Medications Administered Medication List Discontinued Medications Sodium Chloride (Nss 1000ml) 1,000 mls @ 999 mls/hr IV .Q1H1M SEN Stop: 11/24/22 09:15 Last Infusion: 11/24/22 09:36 Dose: 0 mls/hr Documented By: Admin: 11/24/22 08:28 Dose: 999 mls/hr Documented By: DARNELL Sodium Chloride (Nss 1000ml) 1,000 mls @ 999 mls/hr IV .Q1H1M ONE Stop: 11/24/22 09:50 Last Admin: 11/24/22 08:58 Dose: 999 mls/hr Documented By: DARNELL Sodium Chloride (Nss 1000ml) 500 mls @ 999 mls/hr IV .Q31M ONE Stop: 11/24/22 09:20 Last Infusion: 11/24/22 09:36 Dose: 0 mls/hr Documented By: Admin: 11/24/22 08:59 Dose: 999 mls/hr Documented By: DARNELL Ampicillin Sodium/Sulbactam Sodium 3,000 mg/ Sodium Chloride 108 mls @ 200 mls/hr IV NOW STA; Protocol Stop: 11/24/22 09:22 Last Infusion: 11/24/22 09:45 Dose: 0 mls/hr Documented By: Admin: 11/24/22 09:08 Dose: 200 mls/hr Documented By: JM Acetaminophen (Ofirmev) 1,000 mg in 100 mls @ 400 mls/hr IV NOW STA Stop: 11/24/22 09:05 Last Infusion: 11/24/22 09:13 Dose: 0 mls/hr Documented By: Admin: 11/24/22 08:57 Dose: 400 mls/hr Documented By: DARNELL ECG Rate (beats per minute): 98 Additional Comments: NSR, incomblete RBBB, t wave inversion V1 and V2 new from previous incomplete RBBB noted on previous ecgs COVID-19 Results Results COVID-19 Adm Lab Results: RBC 3.10 M/uL (4.70-6.10) L 11/24/22 WBC 8.15 K/ul (4.8-10.8) 11/24/22 Hgb 10.1 g/dl (14.0-18.0) L 11/24/22 Hct 31.0 % (42.0-52.0) L 11/24/22 Plt Count 154 K/uL (130-400) 11/24/22 Neutrophils (%) (Auto) 91.2 % 11/24/22 Lymphocytes (%) (Auto) 3.4 % 11/24/22 Monocytes # (Auto) 0.37 K/uL (0.11-0.59) 11/24/22 Eosinophils # (Auto) 0.00 K/uL (0-0.50) 11/24/22 Immature Granulocyte % (Auto) 0.5 % 11/24/22 Neutrophils # (Auto) 7.43 K/uL (1.40-6.50) H 11/24/22 Lymphocytes # (Auto) 0.28 K/uL (1.2-3.4) L 11/24/22 Monocytes # (Auto) 0.37 K/uL (0.11-0.59) 11/24/22 Eosinophils # (Auto) 0.00 K/uL (0-0.50) 11/24/22 Basophils # (Auto) 0.03 K/uL (0-0.2) 11/24/22 Immature Granulocyte # (Auto) 0.04 K/uL (0.01-0.20) 3 Toxic Vacuolation 1+ 11/24/22 Na 136 mmol/L (136-145) 11/24/22 K 4.7 mmol/L (3.5-5.1) 11/24/22 Cl 102 mmol/L (98-107) 11/24/22 CO2 26 mmol/L (21-32) 11/24/22 Anion Gap 8 (3-11) 11/24/22 BUN 40 mg/dl (6-23) H 11/24/22 Creatinine 1.04 mg/dl (0.6-1.4) 11/24/22 BUN/Creatinine Ratio 38.5 (10-20) H 11/24/22 Glucose Level 361 mg/dl (70-99(Fasting)) H* 11/24/22 Ca 8.4 mg/dl (8.5-10.1) L 11/24/22 Total Bilirubin 0.3 mg/dl (0.2-1.0) 11/24/22 Direct Bilirubin 0.1 mg/dl (0-0.2) 11/24/22 AST/SGOT 44 U/L (13-39) H 11/24/22 ALT/SGPT 25 U/L (7-52) 11/24/22 Alkaline Phosphatase 64 U/L (34-104) 11/24/22 Total Protein 6.4 gm/dl (6.0-8.3) 11/24/22 Albumin 3.1 gm/dl (3.4-5.0) L 11/24/22 Procalcitonin 9.29 ng/ml (0-0.5) H 11/24/22 COVID-19 PCR NEGATIVE (Negative) 11/24/22 Influenza Virus Type A (PCR) Negative (Neg) 11/24/22 Influenza Virus Type B (PCR) Negative (Neg) 11/24/22 Chest X-Ray 11/24/22 Code Status & VTE Plan Code Status FULL CODE - discussed with SKILLS VTE Prophylaxis Plan VTE Prophylaxis will be ordered: Yes Supervising Physician Co-Signing Physician Notes I have seen and examined the patient and have discussed the case with the provider above. I agree with the assessment and plan as stated with the following exceptions. 67-year-old cerebral palsy patient who is bedridden with chronic issues with swallowing presents with decline in the last 2 days. Work-up reveals right- sided pneumonia likely related to aspiration as he is known to cough and choke during feeds. He is also less responsive and hypoxic. Head CT revealed no acute intracranial findings. He is minimally responsive although can follow instructions. Review of systems is unobtainable as patient is dehydrated, cognitively declined and unable to articulate how he feels clearly. On physical exam he is weak and appears dehydrated. He is a dentulous and small framed. Generalized weakness is present although he can perform handgrip bilaterally and he can somewhat move his arms on his own. He is unable to sit up independently. On pulmonary auscultation he has some decreased breath sounds at the bases bilaterally. There is no wheezing and there is no increased respiratory effort. Cardiac exam reveals S1/S2 heard with a systolic ejection murmur 3 out of 6 throughout the precordium. There is a regular rate and rhythm present. Abdomen is soft nontender nondistended. Extremities are warm and well-perfused and skin is dry. Agree with plan to continue with Unasyn for broad-spectrum coverage of presumed gram-negative pneumonia from aspiration. He was adequately resuscitated with IV fluids in the ER. Continuing with a small amount for maintenance at this time given ongoing dehydration and poor p.o. intake. Acute metabolic encephalopathy is likely although it is unclear what his baseline status is at this point. He is hyperglycemic and was started on basal bolus insulin with resolution this evening. Replacing magnesium and repeat in a.m. Otherwise continue with plan above. DO Ortiz (1) Anemia Anemia type: unspecified type Qualified Code(s): D64.9 - Anemia, unspecified (2) Sepsis Acute respiratory failure type: with hypoxia Sepsis acute organ dysfunction status: with acute organ dysfunction Sepsis type: sepsis due to unspecified organism Severe sepsis acute organ dysfunction type: acute respiratory failure Severe sepsis shock status: unspecified Qualified Code(s): A41.9 - Sepsis, unspecified organism; R65.20 - Severe sepsis without septic shock; J96.01 - Acute respiratory failure with hypoxia (3) Pneumonia Laterality: left Lung location: unspecified part of lung Pneumonia type: due to unspecified organism Qualified Code(s): J18.9 - Pneumonia, unspecified organism
[2022-11-24] MEDS ORDERED: DEXTROSE 50% 50 ML SYRINGE IV PRN (11:05)
[2022-11-24] MEDS ORDERED: GLUCAGON FOR INJ 1 MG VIAL SQ PRN (11:05)
[2022-11-24] MEDS ORDERED: GLUCOSE 10 TAB/TUBE PO PRN (11:05)
[2022-11-24] MEDS ORDERED: CARBOHYDRATES FOR HYPOGLYCEMIA PO PRN (11:05)
[2022-11-24] MEDS ORDERED: ALBUTEROL 0.083% NEBU SOLN 3 ML VIAL NEB PRN (11:05)
[2022-11-24] MEDS ORDERED: GLUCOSE 40% GEL 15 GM TUBE PO PRN (11:05)
[2022-11-24] MEDS ORDERED: ARTIFICIAL TEARS OP PRN (11:11)
[2022-11-24] MEDS: METOCLOPRAMIDE HCL 5 MG TABLET PO SCH ×3 (12:34→20:27)
[2022-11-24] MEDS: guaiFENesin 600 MG TABCR PO SCH ×2 (12:34→20:23)
[2022-11-24] MEDS: INSULIN ASPART PER UNIT SC SCH ×3 (12:39→20:14)
[2022-11-24] MEDS ORDERED: LANTUS PER UNIT CHARGE SQ STA (12:48)
[2022-11-24] MEDS: risperiDONE 2 MG TABLET PO SCH ×2 (14:02→20:29)
[2022-11-24 14:57] LABS: Adenovirus F 40/41 PCR Not Detected (NotDetected); Astrovirus PCR Not Detected (NotDetected); Campylobacter PCR Not Detected (NotDetected); Cryptosporidium PCR Not Detected (NotDetected); Cyclospora cayetanensis PCR Not Detected (NotDetected); Entamoeba histolytica PCR Not Detected (NotDetected); Enteroaggregative E.coli(EAEC) Not Detected (NotDetected); Enteropathogenic E.coli (EPEC) Not Detected (NotDetected); Enterotoxigenic E.coli (ETEC) Not Detected (NotDetected); Giardia lamblia PCR Not Detected (NotDetected); Norovirus GI/GII PCR Not Detected (NotDetected); Plesiomonas shigelloides PCR Not Detected (NotDetected); Rotavirus A PCR Not Detected (NotDetected); Salmonella PCR Not Detected (NotDetected); Sapovirus PCR Not Detected (NotDetected); Shiga-like Toxin E.coli (STEC) Not Detected (NotDetected); Shigella/Enteroinvasive E.coli Not Detected (NotDetected); Vibrio cholerae PCR Not Detected (NotDetected); Vibrio species PCR Not Detected (NotDetected); Yersinia enterocolitica PCR Not Detected (NotDetected)
[2022-11-24 15:02] LABS: BUN Creatinine Ratio 38.5 (10-20); Creatinine Clr Calc Pharmacy 64.3 ml/min; Est GFR (African American) 85.1 ml/min; Est GFR (Non-African American) 73.4 ml/min; Total Protein 6.4 gm/dl (6.0-8.3)
--- NOTE | 2022-11-24 15:07 | CT Scan Report ---
CT OF THE HEAD WITHOUT CONTRAST CLINICAL HISTORY: Confusion. COMPARISON STUDY: Head CT May 01, 2022. CT DOSE: 614.27 mGy.cm TECHNIQUE: Helical axial images of the head were obtained without IV contrast. Automated exposure con trol was utilized for the study. A dose lowering technique was utilized adhering to the principles o f ALARA. FINDINGS: No acute intracranial hemorrhage, midline shift or mass effect is present. White matter hyp odensities are unchanged and favor small vessel disease. There is bilateral basal ganglia calcificati on. The ventricular system is unremarkable. The basal cisterns are patent. No extra-axial collections are present. There are no findings to suggest acute dural sinus thrombosis or acute territorial infa rct. No significant calvarial abnormalities are present. Trace fluid within the left mastoid air cell s. Apparent rotation/subluxation of C1 on C2 is partially imaged on this exam. This is probably posit ional. IMPRESSION: No acute intracranial findings. No change in appearance of the brain. ACT 112: Negative or not required by law. Electronically signed by: Matias Benson M.D. 11/24/2022 3:05 PM
[2022-11-24 15:24] LABS: Albumin Level 3.1 gm/dl (3.4-5.0); Bilirubin Direct 0.1 mg/dl (0-0.2); Bilirubin,Total 0.3 mg/dl (0.2-1.0); Calcium 8.4 mg/dl (8.5-10.1); Magnesium 1.1 mg/dl (1.7-2.4); Potassium 4.7 mmol/L (3.5-5.1)
[2022-11-24] MEDS: AMPICILLIN/SULBACTAM SOD 3,000 MG in 0.9 % SODIUM CHLORIDE 100 ML IV SCH ×2 (15:45→23:00)
[2022-11-24] MEDS: PENTOXIFYLLINE 400MG EXT REL TAB PO SCH ×2 (15:46→20:19)
[2022-11-24] MEDS: MAGNESIUM SULFATE / D5W 1 GM/100 ML BAG IV SCH ×3 (16:30→20:25)
[2022-11-24 16:44] LABS: Cdiff Antigen Positive; Cdiff Toxin A+B Negative Cdiff Toxin (Negative)
[2022-11-24 16:46] LABS: Cdiff Toxin B Gene (2yr or >) Positive Cdiff Gene (Neg)
[2022-11-24] MEDS: ENOXAPARIN INJ 40 MG/0.4 ML SYR SQ SCH (20:13)
[2022-11-24] MEDS: LANTUS PER UNIT CHARGE SQ SCH (20:14)
[2022-11-24] MEDS: traZODone HCL 50 MG TAB PO SCH (20:21)
[2022-11-24] MEDS: clonazePAM 0.5 MG TAB PO SCH (20:22)
[2022-11-24] MEDS: MAGNESIUM OXIDE 400 MG TAB PO SCH (20:26)
[2022-11-24] MEDS: OXcarbazepine 150 MG TABLET PO SCH (20:28)
[2022-11-24] MEDS: SIMVASTATIN 40 MG TAB PO SCH (20:30)
--- NOTE | 2022-11-24 21:15 | Electrocardiogram Report ---
Test Reason : Blood Pressure : / mmHG Vent. Rate : 098 BPM Atrial Rate : 098 BPM P-R Int : 156 ms QRS Dur : 108 ms QT Int : 332 ms P-R-T Axes : 061 -07 021 degrees QTc Int : 423 ms Sinus rhythm with Premature atrial complexes Incomplete right bundle branch block Borderline ECG When compared with ECG of 01-MAY-2022 12:53, Premature atrial complexes are now Present Incomplete right bundle branch block is now Present Confirmed by Sreedhar Dowling ([id number]) on 11/24/2022 9:15:15 PM Referred By: REFERRED SELF Confirmed By:Evan Dowling
[2022-11-25] MEDS: AMPICILLIN/SULBACTAM SOD 3,000 MG in 0.9 % SODIUM CHLORIDE 100 ML IV SCH ×4 (03:18→20:59)
[2022-11-25 06:48] LABS: Hematocrit (blood only) 27.4 % (42.0-52.0); Hemoglobin 8.6 g/dl (14.0-18.0); Mean Corpuscular Hemoglobin 32.5 pg (25.0-34.0); Mean Corpuscular Hgb Conc 31.4 g/dL (32.0-36.0); Mean Corpuscular Volume 103.4 fL (80.0-100.0); Mean Platelet Volume 10.9 fL (9.4-12.4); Platelet Count 117 K/uL (130-400); RDW Coefficient of Variation 13.9 % (11.5-14.5); RDW Standard Deviation 52.5 fL (36.4-46.3); Red Blood Count 2.65 M/uL (4.70-6.10); White Blood Count 7.75 K/ul (4.8-10.8)
[2022-11-25 07:13] LABS: Estimated Average Glucose 171 mg/dl; Hemoglobin A1C 7.6 % (4.5-5.6)
[2022-11-25 07:20] LABS: Magnesium 1.9 mg/dl (1.7-2.4)
[2022-11-25 07:26] LABS: Phosphorus 3.1 mg/dl (2.5-4.9)
[2022-11-25] MEDS: CHOLECALCIFEROL 1,000 UNITS 25 MCG TAB PO SCH (08:17)
[2022-11-25] MEDS: ESCITALOPRAM OXALATE 20 MG TAB PO SCH (08:19)
[2022-11-25] MEDS: MULTIVITAMIN TAB PO SCH (08:19)
[2022-11-25] MEDS: LORATADINE 10 MG TAB PO SCH (08:19)
[2022-11-25] MEDS: PANTOprazole 40 MG TAB PO SCH (08:19)
[2022-11-25] MEDS: SACCHAROMYCES BOULARDII 250 MG CAP PO SCH (08:20)
[2022-11-25] MEDS: PENTOXIFYLLINE 400MG EXT REL TAB PO SCH ×3 (08:20→20:31)
[2022-11-25] MEDS: guaiFENesin 600 MG TABCR PO SCH ×2 (08:20→20:32)
[2022-11-25] MEDS: risperiDONE 2 MG TABLET PO SCH ×3 (08:20→20:33)
[2022-11-25] MEDS: MAGNESIUM OXIDE 400 MG TAB PO SCH ×2 (08:21→20:33)
[2022-11-25] MEDS: METOCLOPRAMIDE HCL 5 MG TABLET PO SCH ×4 (08:21→20:33)
[2022-11-25] MEDS: OXcarbazepine 150 MG TABLET PO SCH ×2 (08:22→20:33)
[2022-11-25] MEDS: UMECLIDINIUM BROMIDE 62.5MCG/BLISTER 7 PUFFS/INHALER INH SCH (08:23)
[2022-11-25] MEDS: INSULIN ASPART PER UNIT SC SCH ×4 (08:56→20:39)
[2022-11-25] MEDS: LANTUS PER UNIT CHARGE SQ SCH ×2 (08:57→20:42)
[2022-11-25] MEDS: clonazePAM 0.5 MG TAB PO SCH ×2 (08:58→20:32)
--- NOTE | 2022-11-25 10:05 | Electrocardiogram Report ---
Test Reason : Blood Pressure : / mmHG Vent. Rate : 072 BPM Atrial Rate : 072 BPM P-R Int : 174 ms QRS Dur : 074 ms QT Int : 370 ms P-R-T Axes : 064 045 056 degrees QTc Int : 405 ms Normal sinus rhythm Normal ECG When compared with ECG of 24-NOV-2022 08:03, Premature atrial complexes are no longer Present Incomplete right bundle branch block is no longer Present Confirmed by Harvey Bland ([id number]) on 11/25/2022 10:05:10 AM Referred By: REFERRED SELF Confirmed By:Harvey Bland
[2022-11-25] MEDS: ALBUTEROL 0.083% NEBU SOLN 3 ML VIAL NEB SCH ×2 (11:24→19:58)
--- NOTE | 2022-11-25 15:01 | Hospitalist Progress Note ---
Date of Service November 25, 2022 Assessment & Plan (1) Sepsis: (2) Acute hypoxemic respiratory failure: (3) Pneumonia: (4) Elevated troponin: (5) Pressure ulcer of coccygeal region, stage 3: (6) Diabetes mellitus, type 2: (7) Anemia: (8) Intellectual disability: Plan This is a 67-year-old male who has a significant past medical history of PAF, T2DM, COPD, [place], chronic stasis dermatitis, intellectual disability and hyperlipidemia who presents to ED secondary to unresponsiveness and hypoxia. Patient meets for sepsis secondary to tachycardia and fever. In ED he received 2.7 L of IV fluid resuscitation with improvement in tachycardia. He received APAP for fever. Source: Right sided pneumonia He received broad-spectrum antibiotics with IV Unasyn. Blood cultures are pending He was hemodynamically stable at time of admission. Sepsis Acute hypoxic respiratory failure Right-sided pneumonia Normotensive, oxygen requirement down trended to room air. Pro-Ja elevated to 18.6 Plan; - DOCUMENTUM CONSULTANT eval r; assuring bedside swallow evaluation. Will discuss if patient will need VFSS. Continue on Unasyn. Continue airway clearance with bilateral duo nebs and hypertonic saline and CoughAssist. Supplemental oxygen as needed. Elevated troponin likely Demand ischemia No formal history of CAD documented Likely demand in setting of underlying sepsis, no reports of chest pain or ischemic EKG change High sensitive troponin down trended from 160 to 70s. Last echo December 2021 which revealed preserved EF 60 to 65%, mild concentric LVH, mild valvular aortic stenosis We will obtain repeat echo T2DM Last A1c 6.2 on 08/16/2022; obtain A1c in a.m. Lantus/NovoLog per protocol Hold home medications of metformin and Januvia Stage 3 coccyx wound following wound care has been on oral amoxicillin, to finish 11/25 currently on IV unasyn turn and position q2, consult wound care continue [place] Intellectual disability resides at [facility] wheel chair bound at baseline continue oxcarbazepine, trazodone, risperidone COPD no acute exac continue incruse prn albuterol Hx of PAF in NSR, not on any rate/rhythm agents not on OAC HLD continue statin PVD/PAD Chronic stasis dermatitis no signs of cellulitis continue pentoxifylline DVT ppx: SQ Lovenox Dispo: Tele PCP: Clari FULL CODE Dispo- From skilled nursing. PT/OT ordered. Admission and Anticipated Discharge Date Admission Date: November 24, 2022 Subjective Patient seen and examined at bedside. He is wean off supplemental oxygen. Review of Systems Review of Systems: All systems reviewed & are unremarkable except as noted in Subjective Physical Exam Physical Exam: Constitutional: Alert, oriented to self; not in any distress. Respiratory: coarse crackles heard in bilateral bases; more in right side. Cardiovascular: RRR,1/6 mark, no edema but bilateral chronic venous stasis changes vessels: no JVD or carotid bruit Chest: normal inspection of chest Abdomen: normal bowel sounds, soft, nontender, no hepatosplenomegaly Musculoskeletal: no cyanosis or clubbing, unable to assess MSK due to pt unable to follow direction Skin: no rashes, warm and moderate normal turgor Neurologic: PERRL, EOMI, accommodation nl, no face palsy, no dysarthria CN's II-XI intact bilaterally and moves all extremities Psychiatric: A+O to self and place only, euthymic affect Lymphatic: no cervical or axillary lymphadenopathy : deferred Results & Data Results & Data ([facility]) Vital Signs (Past 12 Hours) Vital Signs Temp Pulse Pulse Resp BP BP Pulse Ox 11/25/22 11:24 72 18 91 11/25/22 11:11 36.8 C 71 17 108/64 93 11/25/22 11:20 69 11/25/22 11:09 69 11/25/22 08:14 11/25/22 07:21 36.4 C L 65 17 106/64 99 11/25/22 03:05 37.3 C 77 16 96/49 L 97 Pulse Ox O2 Del Method O2 Del Method O2 Flow Rate 11/25/22 11:24 Room Air 11/25/22 11:11 Room Air 11/25/22 11:20 11/25/22 11:09 11/25/22 08:14 97 Room Air 11/25/22 07:21 Nasal Cannula 2.0 11/25/22 03:05 Nasal Cannula 2 Laboratory Results Laboratory Results WBC 7.75 K/ul (4.8-10.8) 11/25/22 05:39 RBC 2.65 M/uL (4.70-6.10) L 11/25/22 05:39 Hgb 8.6 g/dl (14.0-18.0) L 11/25/22 05:39 Hct 27.4 % (42.0-52.0) L 11/25/22 05:39 MCV 103.4 fL (80.0-100.0) H 11/25/22 05:39 MCH 32.5 pg (25.0-34.0) 11/25/22 05:39 MCHC 31.4 g/dL (32.0-36.0) L 11/25/22 05:39 RDW Std Deviation 52.5 fL (36.4-46.3) H 11/25/22 05:39 RDW Coeff of Drew 13.9 % (11.5-14.5) 11/25/22 05:39 Plt Count 117 K/uL (130-400) L 11/25/22 05:39 MPV 10.9 fL (9.4-12.4) 11/25/22 05:39 Immature Gran % (Auto) 0.5 % 11/24/22 08:26 Neut % (Auto) 91.2 % 11/24/22 08:26 Lymph % (Auto) 3.4 % 11/24/22 08:26 [place] % (Auto) 4.5 % 11/24/22 08:26 Eos % (Auto) 0.0 % 11/24/22 08:26 Baso % (Auto) 0.4 % 11/24/22 08:26 Neut # (Auto) 7.43 K/uL (1.40-6.50) H 11/24/22 08:26 Lymph # (Auto) 0.28 K/uL (1.2-3.4) L 11/24/22 08:26 [place] # (Auto) 0.37 K/uL (0.11-0.59) 11/24/22 08:26 Eos # (Auto) 0.00 K/uL (0-0.50) 11/24/22 08:26 Baso # (Auto) 0.03 K/uL (0-0.2) 11/24/22 08:26 Immature Gran # (Auto) 0.04 K/uL (0.01-0.20) 11/24/22 08:26 Toxic Vacuolation 1+ 11/24/22 08:26 Sodium 136 mmol/L (136-145) 11/24/22 08:26 Potassium 4.7 mmol/L (3.5-5.1) 11/24/22 08:26 Chloride 102 mmol/L (98-107) 11/24/22 08:26 Carbon Dioxide 26 mmol/L (21-32) 11/24/22 08:26 Anion Gap 8 (3-11) 11/24/22 08:26 BUN 40 mg/dl (6-23) H 11/24/22 08:26 Creatinine 1.04 mg/dl (0.6-1.4) 11/24/22 08:26 Est Cr Clr Drug Dosing 64.3 ml/min 11/24/22 08:26 Est GFR ( Amer) 85.1 ml/min 11/24/22 08:26 Est GFR (Non-Af Amer) 73.4 ml/min 11/24/22 08:26 BUN/Creatinine Ratio 38.5 (10-20) H 11/24/22 08:26 Glucose 361 mg/dl (70-99(Fasting)) H* 11/24/22 08:26 POC Glucose 209 mg/dl (70-99) H 11/25/22 11:50 Estimat Average Glucose 171 mg/dl 11/25/22 05:39 Hemoglobin A1c 7.6 % (4.5-5.6) H 11/25/22 05:39 Lactate 0.7 mmol/L (0.4-2.0) 11/24/22 08:26 Calcium 8.4 mg/dl (8.5-10.1) L 11/24/22 08:26 Phosphorus 3.1 mg/dl (2.5-4.9) 11/25/22 05:39 Magnesium 1.9 mg/dl (1.7-2.4) 11/25/22 05:39 Total Bilirubin 0.3 mg/dl (0.2-1.0) 11/24/22 08:26 Direct Bilirubin 0.1 mg/dl (0-0.2) 11/24/22 08:26 AST 44 U/L (13-39) H 11/24/22 08:26 ALT 25 U/L (7-52) 11/24/22 08:26 Alkaline Phosphatase 64 U/L (34-104) 11/24/22 08:26 Troponin I High Sens 74.3 pg/ml (0-20) H* D 11/24/22 20:32 Total Protein 6.4 gm/dl (6.0-8.3) 11/24/22 08:26 Albumin 3.1 gm/dl (3.4-5.0) L 11/24/22 08:26 Procalcitonin 18.61 ng/ml (0-0.5) H 11/25/22 05:39 Urine Color Dark Yellow 11/24/22 08:24 Urine Appearance Clear (Clear) 11/24/22 08:24 Urine pH 5.0 (4.5-7.5) 11/24/22 08:24 Ur Specific [place] 1.024 (1.000-1.030) 11/24/22 08:24 Urine Protein Trace (Negative) H 11/24/22 08:24 Urine Glucose (UA) Negative (Negative) 11/24/22 08:24 Urine Ketones 1+ (Negative) H 11/24/22 08:24 Urine Blood Negative (Negative) 11/24/22 08:24 Urine Nitrite Negative (Negative) 11/24/22 08:24 Urine Bilirubin Negative (Negative) 11/24/22 08:24 Urine Urobilinogen Negative (Negative) 11/24/22 08:24 Ur Leukocyte Esterase Negative (Negative) 11/24/22 08:24 Urine WBC (Auto) 1-5 /hpf (0-5) 11/24/22 08:24 Urine RBC (Auto) 0-4 /hpf (0-4) 11/24/22 08:24 U Hyaline Cast (Auto) 1-5 /lpf (0-5) 11/24/22 08:24 U Epithel Cells (Auto) 5-10 /lpf (0-5) H 11/24/22 08:24 Urine Bacteria (Auto) Negative (Negative) 11/24/22 08:24 Nasal Screen MRSA (PCR) Negative (Negative) 11/25/22 09:42 Stl C. cayetanensis PCR Not Detected (NotDetected) 11/24/22 12:45 Stool Rotavirus A PCR Not Detected (NotDetected) 11/24/22 12:45 Stl Adenov F 40/41 PCR Not Detected (NotDetected) 11/24/22 12:45 Stool Astrovirus (PCR) Not Detected (NotDetected) 11/24/22 12:45 Stool Campylobacter PCR Not Detected (NotDetected) 11/24/22 12:45 Stl C. diff Tox B Gene Positive Cdiff Gene (Neg) H 11/24/22 12:45 Stl C.difficile Tox A&B Negative Cdiff Toxin (Negative) 11/24/22 12:45 Stool Cryptosporidium PCR Not Detected (NotDetected) 11/24/22 12:45 Stl E.coli Shiga Tox PCR Not Detected (NotDetected) 11/24/22 12:45 Stl Enterotoxigenic E PCR Not Detected (NotDetected) 11/24/22 12:45 Stool EPEC (PCR) Not Detected (NotDetected) 11/24/22 12:45 Stool EAEC (PCR) Not Detected (NotDetected) 11/24/22 12:45 Stl E. histolytica PCR Not Detected (NotDetected) 11/24/22 12:45 Stool Giardia Lamblia PCR Not Detected (NotDetected) 11/24/22 12:45 Stool Salmonella PCR Not Detected (NotDetected) 11/24/22 12:45 Stool Sapovirus (PCR) Not Detected (NotDetected) 11/24/22 12:45 Stl P. shigelloides PCR Not Detected (NotDetected) 11/24/22 12:45 Stl Shigella/EIEC PCR Not Detected (NotDetected) 11/24/22 12:45 St Y.enterocolitica PCR Not Detected (NotDetected) 11/24/22 12:45 Stool Vibrio (PCR) Not Detected (NotDetected) 11/24/22 12:45 Stl Vibrio cholerae PCR Not Detected (NotDetected) 11/24/22 12:45 Stl Norovirus GI/GII PCR Not Detected (NotDetected) 11/24/22 12:45 SARS-CoV-2 (PCR) NEGATIVE (Negative) 11/24/22 08:24 Influenza Type A (PCR) Negative (Neg) 11/24/22 08:24 Influenza Type B (PCR) Negative (Neg) 11/24/22 08:24 RSV (RT-PCR) Negative (Neg) 11/24/22 08:24 Impressions Chest X-Ray 11/24/22 08:14 XR chest 1V portable CLINICAL HISTORY: Sepsis. COMPARISON STUDY: Chest CT August 15, 2021 and chest radiograph March 23, 2022. FINDINGS: IVC filter is unchanged in position. There is no pneumothorax or pleural effusion. Extensive right mid and lower lung airspace opacity has developed. Lower lung interstitial thickening is unchanged. Cardiomegaly is unchanged. There are old bilateral rib fractures. S-shaped thoracolumbar spine scoliosis. IMPRESSION: Right mid and lower lung consolidation suggestive of pneumonia. Post treatment radiographs to ensure resolution are recommended. ACT 112: Negative or not required by law. Electronically signed by: Matias Benson M.D. 11/24/2022 8:[address] 11/24/22 13:31 CT OF THE HEAD WITHOUT CONTRAST CLINICAL HISTORY: Confusion. COMPARISON STUDY: Head CT May 01, 2022. CT DOSE: 614.27 mGy.cm TECHNIQUE: Helical axial images of the head were obtained without IV contrast. Automated exposure control was utilized for the study. A dose lowering technique was utilized adhering to the principles of ALARA. FINDINGS: No acute intracranial hemorrhage, midline shift or mass effect is present. White matter hypodensities are unchanged and favor small vessel disease. There is bilateral basal ganglia calcification. The ventricular system is unremarkable. The basal cisterns are patent. No extra-axial collections are present. There are no findings to suggest acute dural sinus thrombosis or acute territorial infarct. No significant calvarial abnormalities are present. Trace fluid within the left mastoid air cells. Apparent rotation/subluxation of C1 on C2 is partially imaged on this exam. This is probably positional. IMPRESSION: No acute intracranial findings. No change in appearance of the brain. ACT 112: Negative or not required by law. Electronically signed by: Matias Benson M.D. 11/24/2022 3:05 PM (1) Anemia Anemia type: unspecified type Qualified Code(s): D64.9 - Anemia, unspecified (2) Sepsis Acute respiratory failure type: with hypoxia Sepsis acute organ dysfunction status: with acute organ dysfunction Sepsis type: sepsis due to unspecified organism Severe sepsis acute organ dysfunction type: acute respiratory failure Severe sepsis shock status: unspecified Qualified Code(s): A41.9 - Sepsis, unspecified organism; R65.20 - Severe sepsis without septic shock; J96.01 - Acute respiratory failure with hypoxia (3) Pneumonia Laterality: left Lung location: unspecified part of lung Pneumonia type: due to unspecified organism Qualified Code(s): J18.9 - Pneumonia, unspecified organism
[2022-11-25] MEDS: ACETAMINOPHEN 325 MG TAB PO PRN (16:36)
[2022-11-25] MEDS: SODIUM CHLOR 7% 4 ML NEB NEB SCH (19:58)
[2022-11-25] MEDS: traZODone HCL 50 MG TAB PO SCH (20:32)
[2022-11-25] MEDS: ENOXAPARIN INJ 40 MG/0.4 ML SYR SQ SCH (20:32)
[2022-11-25] MEDS: SIMVASTATIN 40 MG TAB PO SCH (20:34)
[2022-11-26] MEDS: ACETAMINOPHEN 325 MG TAB PO PRN (03:36)
[2022-11-26] MEDS: AMPICILLIN/SULBACTAM SOD 3,000 MG in 0.9 % SODIUM CHLORIDE 100 ML IV SCH ×3 (03:42→14:17)
[2022-11-26 06:38] LABS: Albumin Globulin Ratio 1.2 (0.9-2); BUN Creatinine Ratio 41.7 (10-20); Bilirubin,Total 0.3 mg/dl (0.2-1.0); Calcium 8.8 mg/dl (8.5-10.1); Creatinine Clr Calc Pharmacy 111.4 ml/min; Est GFR (African American) 119.7 ml/min; Est GFR (Non-African American) 103.3 ml/min; Globulin 2.5 gm/dl (2.5-4.0); Potassium 4.7 mmol/L (3.5-5.1); Total Protein 5.5 gm/dl (6.0-8.3)
[2022-11-26 06:44] LABS: Basophils # (auto) 0.03 K/uL (0-0.2); Basophils % (auto) 0.5 %; Eosinophils # (auto) 0.02 K/uL (0-0.50); Eosinophils % (auto) 0.3 %; Hemoglobin 8.6 g/dl (14.0-18.0); Immature Granulocytes # (auto) 0.02 K/uL (0.01-0.20); Immature Granulocytes % (auto) 0.3 %; Lymphocytes # (auto) 0.71 K/uL (1.2-3.4); Lymphocytes % (auto) 11.5 %; Mean Corpuscular Hemoglobin 32.3 pg (25.0-34.0); Mean Corpuscular Hgb Conc 31.9 g/dL (32.0-36.0); Mean Corpuscular Volume 101.5 fL (80.0-100.0); Mean Platelet Volume 10.7 fL (9.4-12.4); Monocytes # (auto) 0.35 K/uL (0.11-0.59); Monocytes % (auto) 5.7 %; Neutrophils # (auto) 5.06 K/uL (1.40-6.50); Neutrophils % (auto) 81.7 %; Platelet Count 117 K/uL (130-400); Platelet Estimate Decreased (Normal); RDW Coefficient of Variation 13.5 % (11.5-14.5); RDW Standard Deviation 50.8 fL (36.4-46.3); Red Blood Count 2.66 M/uL (4.70-6.10); Rouleaux 1+; White Blood Count 6.19 K/ul (4.8-10.8)
[2022-11-26] MEDS: ALBUTEROL 0.083% NEBU SOLN 3 ML VIAL NEB SCH ×2 (06:52→19:46)
[2022-11-26] MEDS: SODIUM CHLOR 7% 4 ML NEB NEB SCH ×2 (06:53→19:46)
[2022-11-26] MEDS: clonazePAM 0.5 MG TAB PO SCH ×2 (08:03→21:17)
[2022-11-26] MEDS: MULTIVITAMIN TAB PO SCH (08:03)
[2022-11-26] MEDS: CHOLECALCIFEROL 1,000 UNITS 25 MCG TAB PO SCH (08:03)
[2022-11-26] MEDS: PANTOprazole 40 MG TAB PO SCH (08:03)
[2022-11-26] MEDS: SACCHAROMYCES BOULARDII 250 MG CAP PO SCH (08:03)
[2022-11-26] MEDS: ESCITALOPRAM OXALATE 20 MG TAB PO SCH (08:03)
[2022-11-26] MEDS: LORATADINE 10 MG TAB PO SCH (08:03)
[2022-11-26] MEDS: OXcarbazepine 150 MG TABLET PO SCH ×2 (08:04→21:00)
[2022-11-26] MEDS: MAGNESIUM OXIDE 400 MG TAB PO SCH ×2 (08:04→21:01)
[2022-11-26] MEDS: risperiDONE 2 MG TABLET PO SCH ×3 (08:04→20:56)
[2022-11-26] MEDS: PENTOXIFYLLINE 400MG EXT REL TAB PO SCH ×3 (08:04→20:58)
[2022-11-26] MEDS: METOCLOPRAMIDE HCL 5 MG TABLET PO SCH ×4 (08:04→21:01)
[2022-11-26] MEDS: UMECLIDINIUM BROMIDE 62.5MCG/BLISTER 7 PUFFS/INHALER INH SCH (08:05)
[2022-11-26] MEDS: guaiFENesin 600 MG TABCR PO SCH ×2 (08:05→20:59)
[2022-11-26] MEDS: LANTUS PER UNIT CHARGE SQ SCH ×3 (08:14→21:16)
[2022-11-26] MEDS: INSULIN ASPART PER UNIT SC SCH ×4 (08:14→21:16)
--- NOTE | 2022-11-26 10:38 | Fluoroscopy Report ---
FL video swallow CLINICAL HISTORY: 67 years-old Male with r/o aspiration. Dysphasia with possible aspiration TECHNIQUE: Video fluoroscopic evaluation of swallowing was performed in the AP and lateral projection s by the speech pathology staff. The patient is fed thin liquid, mildly thick and pudding consistenci es. FLUOROSCOPY TIME: 1.5 minutes. COMPARISON STUDY: CT cervical spine 03/23/2022 FINDINGS: The patient is edentulous. There is normal hyoid excursion and epiglottic deflection. No si gnificant penetration or aspiration identified. Swallowing function is within normal limits. IMPRESSION: 1. No aspiration identified. 2. Please see the speech pathologist report for detailed findings and recommendations. ACT 112: Negative or not required by law. Electronically signed by: Bradley Whalen M.D. 11/26/2022 10:37 AM
--- NOTE | 2022-11-26 12:40 | Hospitalist Progress Note ---
Date of Service November 26, 2022 Assessment & Plan (1) Sepsis: (2) Acute hypoxemic respiratory failure: (3) Pneumonia: (4) Elevated troponin: (5) Pressure ulcer of coccygeal region, stage 3: (6) Diabetes mellitus, type 2: (7) Anemia: (8) Intellectual disability: Plan This is a 67-year-old male who has a significant past medical history of PAF, T2DM, COPD, [place], chronic stasis dermatitis, intellectual disability and hyperlipidemia who presents to ED secondary to unresponsiveness and hypoxia. Patient meets for sepsis secondary to tachycardia and fever. In ED he received 2.7 L of IV fluid resuscitation with improvement in tachycardia. He received APAP for fever. Source: Right sided pneumonia He received broad-spectrum antibiotics with IV Unasyn. Blood cultures are pending He was hemodynamically stable at time of admission. Sepsis Acute hypoxic respiratory failure Right-sided pneumonia Normotensive, oxygen requirement down trended to room air. Pro-Ja elevated to 18.6 Plan; - SENIOR ARCHITECT/DESIGN MANAGER eval ; assuring bedside swallow evaluation. VFSS doesn't show any signs of aspiration. Continue on Unasyn. Continue airway clearance with bilateral duo nebs and hypertonic saline and CoughAssist. Supplemental oxygen as needed. Elevated troponin likely Demand ischemia SVT No formal history of CAD documented Likely demand in setting of underlying sepsis, no reports of chest pain or ischemic EKG change High sensitive troponin down trended from 160 to 70s. Last echo December 2021 which revealed preserved EF 60 to 65%, mild concentric LVH, mild valvular aortic stenosis Echo shows EF of 60 to 65%; grade 1 diastolic function. On telemetry on 11/26; patient had burst of SVT for short period. We will add metoprolol 12.5 twice daily and continue to monitor on telemetry. T2DM Last A1c 6.2 on 08/16/2022; obtain A1c in a.m. Lantus/NovoLog per protocol Hold home medications of metformin and Januvia Stage 3 coccyx wound following wound care has been on oral amoxicillin, to finish 11/25 currently on IV unasyn turn and position q2, consult wound care continue [place] Intellectual disability resides at [facility] wheel chair bound at baseline continue oxcarbazepine, trazodone, risperidone COPD no acute exac continue incruse prn albuterol Hx of PAF in NSR, not on any rate/rhythm agents not on OAC HLD continue statin PVD/PAD Chronic stasis dermatitis no signs of cellulitis continue pentoxifylline DVT ppx: SQ Lovenox Dispo: Tele PCP: Clari FULL CODE Dispo- From long term. PT/OT ordered. Admission and Anticipated Discharge Date Admission Date: November 24, 2022 Subjective Patient seen and examined at bedside. He is awake; not in any distress. He continues to saturate well in room air. Review of Systems Review of Systems: All systems reviewed & are unremarkable except as noted in Subjective Physical Exam Physical Exam: Constitutional: Alert, oriented to self; not in any distress. Respiratory: coarse crackles heard in bilateral bases; more in right side. Cardiovascular: RRR,1/6 mark, no edema but bilateral chronic venous stasis changes vessels: no JVD or carotid bruit Chest: normal inspection of chest Abdomen: normal bowel sounds, soft, nontender, no hepatosplenomegaly Musculoskeletal: no cyanosis or clubbing, unable to assess MSK due to pt unable to follow direction Skin: no rashes, warm and moderate normal turgor Neurologic: PERRL, EOMI, accommodation nl, no face palsy, no dysarthria CN's II-XI intact bilaterally and moves all extremities Psychiatric: A+O to self and place only, euthymic affect Lymphatic: no cervical or axillary lymphadenopathy : deferred Results & Data Results & Data ([facility]) Vital Signs (Past 12 Hours) Vital Signs Temp Pulse Pulse Resp BP BP Pulse Ox 11/26/22 10:42 36.8 C 68 16 117/68 91 11/26/22 08:51 11/26/22 08:50 11/26/22 08:48 71 11/26/22 08:00 36.8 C 78 20 113/53 L 93 11/26/22 06:53 68 16 94 11/26/22 02:02 37.2 C 76 16 104/56 L 91 Pulse Ox O2 Del Method O2 Del Method 11/26/22 10:42 Room Air 11/26/22 08:51 Room Air 11/26/22 08:50 92 Room Air 11/26/22 08:48 11/26/22 08:00 Room Air 11/26/22 06:53 Room Air 11/26/22 02:02 Room Air Laboratory Results Laboratory Results WBC 6.19 K/ul (4.8-10.8) 11/26/22 05:38 RBC 2.66 M/uL (4.70-6.10) L 11/26/22 05:38 Hgb 8.6 g/dl (14.0-18.0) L 11/26/22 05:38 Hct 27.0 % (42.0-52.0) L 11/26/22 05:38 MCV 101.5 fL (80.0-100.0) H 11/26/22 05:38 MCH 32.3 pg (25.0-34.0) 11/26/22 05:38 MCHC 31.9 g/dL (32.0-36.0) L 11/26/22 05:38 RDW Std Deviation 50.8 fL (36.4-46.3) H 11/26/22 05:38 RDW Coeff of Drew 13.5 % (11.5-14.5) 11/26/22 05:38 Plt Count 117 K/uL (130-400) L 11/26/22 05:38 MPV 10.7 fL (9.4-12.4) 11/26/22 05:38 Immature Gran % (Auto) 0.3 % 11/26/22 05:38 Neut % (Auto) 81.7 % 11/26/22 05:38 Lymph % (Auto) 11.5 % 11/26/22 05:38 Pope % (Auto) 5.7 % 11/26/22 05:38 Eos % (Auto) 0.3 % 11/26/22 05:38 Baso % (Auto) 0.5 % 11/26/22 05:38 Neut # (Auto) 5.06 K/uL (1.40-6.50) 11/26/22 05:38 Lymph # (Auto) 0.71 K/uL (1.2-3.4) L 11/26/22 05:38 Pope # (Auto) 0.35 K/uL (0.11-0.59) 11/26/22 05:38 Eos # (Auto) 0.02 K/uL (0-0.50) 11/26/22 05:38 Baso # (Auto) 0.03 K/uL (0-0.2) 11/26/22 05:38 Immature Gran # (Auto) 0.02 K/uL (0.01-0.20) 11/26/22 05:38 Toxic Vacuolation 1+ 11/24/22 08:26 Platelet Estimate Decreased (Normal) L 11/26/22 05:38 Rouleaux 1+ 11/26/22 05:38 Sodium 138 mmol/L (136-145) 11/26/22 05:38 Potassium 4.7 mmol/L (3.5-5.1) 11/26/22 05:38 Chloride 103 mmol/L (98-107) 11/26/22 05:38 Carbon Dioxide 30 mmol/L (21-32) 11/26/22 05:38 Anion Gap 5 (3-11) 11/26/22 05:38 BUN 25 mg/dl (6-23) H 11/26/22 05:38 Creatinine 0.60 mg/dl (0.6-1.4) D 11/26/22 05:38 Est Cr Clr Drug Dosing 111.4 ml/min 11/26/22 05:38 Est GFR ( Amer) 119.7 ml/min 11/26/22 05:38 Est GFR (Non-Af Amer) 103.3 ml/min 11/26/22 05:38 BUN/Creatinine Ratio 41.7 (10-20) H 11/26/22 05:38 Glucose 59 mg/dl (70-99(Fasting)) L 11/26/22 05:38 POC Glucose 249 mg/dl (70-99) H 11/26/22 12:05 Estimat Average Glucose 171 mg/dl 11/25/22 05:39 Hemoglobin A1c 7.6 % (4.5-5.6) H 11/25/22 05:39 Lactate 0.7 mmol/L (0.4-2.0) 11/24/22 08:26 Calcium 8.8 mg/dl (8.5-10.1) 11/26/22 05:38 Phosphorus 3.1 mg/dl (2.5-4.9) 11/25/22 05:39 Magnesium 1.9 mg/dl (1.7-2.4) 11/25/22 05:39 Total Bilirubin 0.3 mg/dl (0.2-1.0) 11/26/22 05:38 Direct Bilirubin 0.1 mg/dl (0-0.2) 11/24/22 08:26 AST 44 U/L (13-39) H 11/26/22 05:38 ALT 42 U/L (7-52) 11/26/22 05:38 Alkaline Phosphatase 67 U/L (34-104) 11/26/22 05:38 Troponin I High Sens 74.3 pg/ml (0-20) H* D 11/24/22 20:32 Total Protein 5.5 gm/dl (6.0-8.3) L 11/26/22 05:38 Albumin 3.0 gm/dl (3.4-5.0) L 11/26/22 05:38 Globulin 2.5 gm/dl (2.5-4.0) 11/26/22 05:38 Albumin/Globulin Ratio 1.2 (0.9-2) 11/26/22 05:38 Procalcitonin 18.61 ng/ml (0-0.5) H 11/25/22 05:39 Urine Color Dark Yellow 11/24/22 08:24 Urine Appearance Clear (Clear) 11/24/22 08:24 Urine pH 5.0 (4.5-7.5) 11/24/22 08:24 Ur Specific [place] 1.024 (1.000-1.030) 11/24/22 08:24 Urine Protein Trace (Negative) H 11/24/22 08:24 Urine Glucose (UA) Negative (Negative) 11/24/22 08:24 Urine Ketones 1+ (Negative) H 11/24/22 08:24 Urine Blood Negative (Negative) 11/24/22 08:24 Urine Nitrite Negative (Negative) 11/24/22 08:24 Urine Bilirubin Negative (Negative) 11/24/22 08:24 Urine Urobilinogen Negative (Negative) 11/24/22 08:24 Ur Leukocyte Esterase Negative (Negative) 11/24/22 08:24 Urine WBC (Auto) 1-5 /hpf (0-5) 11/24/22 08:24 Urine RBC (Auto) 0-4 /hpf (0-4) 11/24/22 08:24 U Hyaline Cast (Auto) 1-5 /lpf (0-5) 11/24/22 08:24 U Epithel Cells (Auto) 5-10 /lpf (0-5) H 11/24/22 08:24 Urine Bacteria (Auto) Negative (Negative) 11/24/22 08:24 Nasal Screen MRSA (PCR) Negative (Negative) 11/25/22 09:42 Stl C. cayetanensis PCR Not Detected (NotDetected) 11/24/22 12:45 Stool Rotavirus A PCR Not Detected (NotDetected) 11/24/22 12:45 Stl Adenov F 40/41 PCR Not Detected (NotDetected) 11/24/22 12:45 Stool Astrovirus (PCR) Not Detected (NotDetected) 11/24/22 12:45 Stool Campylobacter PCR Not Detected (NotDetected) 11/24/22 12:45 Stl C. diff Tox B Gene Positive Cdiff Gene (Neg) H 11/24/22 12:45 Stl C.difficile Tox A&B Negative Cdiff Toxin (Negative) 11/24/22 12:45 Stool Cryptosporidium PCR Not Detected (NotDetected) 11/24/22 12:45 Stl E.coli Shiga Tox PCR Not Detected (NotDetected) 11/24/22 12:45 Stl Enterotoxigenic E PCR Not Detected (NotDetected) 11/24/22 12:45 Stool EPEC (PCR) Not Detected (NotDetected) 11/24/22 12:45 Stool EAEC (PCR) Not Detected (NotDetected) 11/24/22 12:45 Stl E. histolytica PCR Not Detected (NotDetected) 11/24/22 12:45 Stool Giardia Lamblia PCR Not Detected (NotDetected) 11/24/22 12:45 Stool Salmonella PCR Not Detected (NotDetected) 11/24/22 12:45 Stool Sapovirus (PCR) Not Detected (NotDetected) 11/24/22 12:45 Stl P. shigelloides PCR Not Detected (NotDetected) 11/24/22 12:45 Stl Shigella/EIEC PCR Not Detected (NotDetected) 11/24/22 12:45 St Y.enterocolitica PCR Not Detected (NotDetected) 11/24/22 12:45 Stool Vibrio (PCR) Not Detected (NotDetected) 11/24/22 12:45 Stl Vibrio cholerae PCR Not Detected (NotDetected) 11/24/22 12:45 Stl Norovirus GI/GII PCR Not Detected (NotDetected) 11/24/22 12:45 SARS-CoV-2 (PCR) NEGATIVE (Negative) 11/24/22 08:24 Influenza Type A (PCR) Negative (Neg) 11/24/22 08:24 Influenza Type B (PCR) Negative (Neg) 11/24/22 08:24 RSV (RT-PCR) Negative (Neg) 11/24/22 08:[address] 11/24/22 13:31 CT OF THE HEAD WITHOUT CONTRAST CLINICAL HISTORY: Confusion. COMPARISON STUDY: Head CT May 01, 2022. CT DOSE: 614.27 mGy.cm TECHNIQUE: Helical axial images of the head were obtained without IV contrast. Automated exposure control was utilized for the study. A dose lowering technique was utilized adhering to the principles of ALARA. FINDINGS: No acute intracranial hemorrhage, midline shift or mass effect is present. White matter hypodensities are unchanged and favor small vessel disease. There is bilateral basal ganglia calcification. The ventricular system is unremarkable. The basal cisterns are patent. No extra-axial collections are present. There are no findings to suggest acute dural sinus thrombosis or acute territorial infarct. No significant calvarial abnormalities are present. Trace fluid within the left mastoid air cells. Apparent rotation/subluxation of C1 on C2 is partially imaged on this exam. This is probably positional. IMPRESSION: No acute intracranial findings. No change in appearance of the brain. ACT 112: Negative or not required by law. Electronically signed by: Matias Benson M.D. 11/24/2022 3:05 PM Videofluoroscopic Swallow 11/26/22 09:45 FL video swallow CLINICAL HISTORY: 67 years-old Male with r/o aspiration. Dysphasia with possible aspiration TECHNIQUE: Video fluoroscopic evaluation of swallowing was performed in the AP and lateral projections by the speech pathology staff. The patient is fed thin liquid, mildly thick and pudding consistencies. FLUOROSCOPY TIME: 1.5 minutes. COMPARISON STUDY: CT cervical spine 03/23/2022 FINDINGS: The patient is edentulous. There is normal hyoid excursion and epiglottic deflection. No significant penetration or aspiration identified. Swallowing function is within normal limits. IMPRESSION: 1. No aspiration identified. 2. Please see the speech pathologist report for detailed findings and recommendations. ACT 112: Negative or not required by law. Electronically signed by: Bradley Whalen M.D. 11/26/2022 10:37 AM (1) Sepsis Acute respiratory failure type: with hypoxia Sepsis acute organ dysfunction status: with acute organ dysfunction Sepsis type: sepsis due to unspecified organism Severe sepsis acute organ dysfunction type: acute respiratory failure Severe sepsis shock status: unspecified Qualified Code(s): A41.9 - Sepsis, unspecified organism; R65.20 - Severe sepsis without septic shock; J96.01 - Acute respiratory failure with hypoxia (2) Pneumonia Laterality: left Lung location: unspecified part of lung Pneumonia type: due to unspecified organism Qualified Code(s): J18.9 - Pneumonia, unspecified organism (3) Anemia Anemia type: unspecified type Qualified Code(s): D64.9 - Anemia, unspecified
[2022-11-26] MEDS: METOPROLOL TARTRATE 25 MG TAB PO SCH ×2 (14:17→21:02)
--- NOTE | 2022-11-26 14:18 | XRay Report ---
XR chest 1V portable CLINICAL HISTORY: Follow up on b/l lung infiltrates COMPARISON STUDY: Chest radiograph November 24, 2022. FINDINGS: Extensive bilateral airspace opacities have progressed since prior examination. Patient is rotated. There is no pneumothorax or pleural effusion. There is cardiomegaly. Multiple old bilateral rib fractures are incidentally noted. IMPRESSION: Progression of extensive bilateral airspace opacities. Multifocal pneumonia is favored h owever pulmonary edema could appear similar. ACT 112: Negative or not required by law. Electronically signed by: Matias Benson M.D. 11/26/2022 2:16 PM
[2022-11-26] MEDS: levoFLOXacin/D5W 750 MG/150 ML BAG IV SCH (15:06)
[2022-11-26] MEDS: traZODone HCL 50 MG TAB PO SCH (20:57)
[2022-11-26] MEDS: ENOXAPARIN INJ 40 MG/0.4 ML SYR SQ SCH (20:58)
[2022-11-26] MEDS: SIMVASTATIN 40 MG TAB PO SCH (20:59)
[2022-11-27] MEDS: SODIUM CHLOR 7% 4 ML NEB NEB SCH ×2 (07:23→19:19)
[2022-11-27] MEDS: ALBUTEROL 0.083% NEBU SOLN 3 ML VIAL NEB SCH ×2 (07:23→19:19)
[2022-11-27] MEDS: CHOLECALCIFEROL 1,000 UNITS 25 MCG TAB PO SCH (07:45)
[2022-11-27] MEDS: guaiFENesin 600 MG TABCR PO SCH ×2 (07:45→21:36)
[2022-11-27] MEDS: METOCLOPRAMIDE HCL 5 MG TABLET PO SCH ×4 (07:45→21:35)
[2022-11-27] MEDS: ESCITALOPRAM OXALATE 20 MG TAB PO SCH (07:45)
[2022-11-27] MEDS: SACCHAROMYCES BOULARDII 250 MG CAP PO SCH (07:46)
[2022-11-27] MEDS: MAGNESIUM OXIDE 400 MG TAB PO SCH ×2 (07:46→21:38)
[2022-11-27] MEDS: MULTIVITAMIN TAB PO SCH (07:46)
[2022-11-27] MEDS: PENTOXIFYLLINE 400MG EXT REL TAB PO SCH ×3 (07:46→21:35)
[2022-11-27] MEDS: risperiDONE 2 MG TABLET PO SCH ×3 (07:46→21:36)
[2022-11-27] MEDS: METOPROLOL TARTRATE 25 MG TAB PO SCH ×2 (07:46→21:14)
[2022-11-27] MEDS: PANTOprazole 40 MG TAB PO SCH (07:46)
[2022-11-27] MEDS: OXcarbazepine 150 MG TABLET PO SCH ×2 (07:46→21:37)
[2022-11-27] MEDS: LORATADINE 10 MG TAB PO SCH (07:47)
[2022-11-27] MEDS: UMECLIDINIUM BROMIDE 62.5MCG/BLISTER 7 PUFFS/INHALER INH SCH (07:47)
[2022-11-27] MEDS: clonazePAM 0.5 MG TAB PO SCH ×2 (07:51→21:34)
[2022-11-27] MEDS: INSULIN ASPART PER UNIT SC SCH ×4 (08:08→21:37)
[2022-11-27] MEDS: LANTUS PER UNIT CHARGE SQ SCH ×2 (08:08→21:39)
[2022-11-27] MEDS: levoFLOXacin/D5W 750 MG/150 ML BAG IV SCH (14:45)
--- NOTE | 2022-11-27 15:42 | Hospitalist Progress Note ---
Date of Service November 27, 2022 Assessment & Plan (1) Sepsis: (2) Acute hypoxemic respiratory failure: (3) Pneumonia: (4) Elevated troponin: (5) Pressure ulcer of coccygeal region, stage 3: (6) Diabetes mellitus, type 2: (7) Anemia: (8) Intellectual disability: Plan This is a 67-year-old male who has a significant past medical history of PAF, T2DM, COPD, [place], chronic stasis dermatitis, intellectual disability and hyperlipidemia who presents to ED secondary to unresponsiveness and hypoxia. Patient meets for sepsis secondary to tachycardia and fever. In ED he received 2.7 L of IV fluid resuscitation with improvement in tachycardia. He received APAP for fever. Source: Right sided pneumonia He received broad-spectrum antibiotics with IV Unasyn. Blood cultures are pending He was hemodynamically stable at time of admission. Sepsis Acute hypoxic respiratory failure Right-sided pneumonia Normotensive, oxygen requirement down trended to room air. Pro-Ja elevated to 18.6 Plan; - LUMBER STRAIGHTENED eval ; assuring bedside swallow evaluation. VFSS doesn't show any signs of aspiration. Switch over to Levaquin as aspiration is rule dout. Continue airway clearance with bilateral duo nebs and hypertonic saline and CoughAssist. Supplemental oxygen as needed. Elevated troponin Demand ischemia SVT No formal history of CAD documented Likely demand in setting of underlying sepsis, no reports of chest pain or ischemic EKG change High sensitive troponin down trended from 160 to 70s. Last echo December 2021 which revealed preserved EF 60 to 65%, mild concentric LVH, mild valvular aortic stenosis Echo shows EF of 60 to 65%; grade 1 diastolic function. On telemetry on 11/26; patient had burst of SVT for short period. We will add metoprolol 12.5 twice daily and continue to monitor on telemetry. T2DM Last A1c 6.2 on 08/16/2022; Lantus/NovoLog per protocol Hold home medications of metformin and Januvia Stage 3 coccyx wound following wound care has been on oral amoxicillin, to finish 11/25 currently on levaquin turn and position q2, consult wound care continue Howard Intellectual disability resides at [facility] wheel chair bound at baseline continue oxcarbazepine, trazodone, risperidone COPD no acute exac continue incruse prn albuterol Hx of PAF in NSR, not on any rate/rhythm agents not on OAC HLD continue statin PVD/PAD Chronic stasis dermatitis no signs of cellulitis continue pentoxifylline DVT ppx: SQ Lovenox Dispo: Tele PCP: Clari FULL CODE Dispo- From longterm. PT/OT ordered; dc back to [facility] if he continues to be clinically stable tomorrow am Admission and Anticipated Discharge Date Admission Date: November 24, 2022 Subjective He is comfortable; not in any distress. Currently in RA. Urine output of 4.5 Litre in last 24 hours. Review of Systems Review of Systems: All systems reviewed & are unremarkable except as noted in Subjective Physical Exam Physical Exam: Constitutional: Alert, oriented to self; not in any distress. Respiratory: coarse crackles heard in bilateral bases; more in right side. Cardiovascular: RRR,1/6 mark, no edema but bilateral chronic venous stasis changes vessels: no JVD or carotid bruit Chest: normal inspection of chest Abdomen: normal bowel sounds, soft, nontender, no hepatosplenomegaly Musculoskeletal: no cyanosis or clubbing, unable to assess MSK due to pt unable to follow direction Skin: no rashes, warm and moderate normal turgor Neurologic: PERRL, EOMI, accommodation nl, no face palsy, no dysarthria CN's II-XI intact bilaterally and moves all extremities Psychiatric: A+O to self and place only, euthymic affect Lymphatic: no cervical or axillary lymphadenopathy : deferred Results & Data Results & Data ([facility]) Vital Signs (Past 12 Hours) Vital Signs Temp Pulse Pulse Resp BP Pulse Ox O2 Del Method 11/27/22 11:35 37.1 C 64 18 123/74 92 Room Air 11/27/22 08:00 Room Air 11/27/22 08:00 66 11/27/22 07:52 36.6 C 66 18 132/73 91 Room Air 11/27/22 07:23 80 18 94 Room Air Laboratory Results Laboratory Results WBC 6.19 K/ul (4.8-10.8) 11/26/22 05:38 RBC 2.66 M/uL (4.70-6.10) L 11/26/22 05:38 Hgb 8.6 g/dl (14.0-18.0) L 11/26/22 05:38 Hct 27.0 % (42.0-52.0) L 11/26/22 05:38 MCV 101.5 fL (80.0-100.0) H 11/26/22 05:38 MCH 32.3 pg (25.0-34.0) 11/26/22 05:38 MCHC 31.9 g/dL (32.0-36.0) L 11/26/22 05:38 RDW Std Deviation 50.8 fL (36.4-46.3) H 11/26/22 05:38 RDW Coeff of Drew 13.5 % (11.5-14.5) 11/26/22 05:38 Plt Count 117 K/uL (130-400) L 11/26/22 05:38 MPV 10.7 fL (9.4-12.4) 11/26/22 05:38 Immature Gran % (Auto) 0.3 % 11/26/22 05:38 Neut % (Auto) 81.7 % 11/26/22 05:38 Lymph % (Auto) 11.5 % 11/26/22 05:38 [place] % (Auto) 5.7 % 11/26/22 05:38 Eos % (Auto) 0.3 % 11/26/22 05:38 Baso % (Auto) 0.5 % 11/26/22 05:38 Neut # (Auto) 5.06 K/uL (1.40-6.50) 11/26/22 05:38 Lymph # (Auto) 0.71 K/uL (1.2-3.4) L 11/26/22 05:38 [place] # (Auto) 0.35 K/uL (0.11-0.59) 11/26/22 05:38 Eos # (Auto) 0.02 K/uL (0-0.50) 11/26/22 05:38 Baso # (Auto) 0.03 K/uL (0-0.2) 11/26/22 05:38 Immature Gran # (Auto) 0.02 K/uL (0.01-0.20) 11/26/22 05:38 Toxic Vacuolation 1+ 11/24/22 08:26 Platelet Estimate Decreased (Normal) L 11/26/22 05:38 Rouleaux 1+ 11/26/22 05:38 Sodium 138 mmol/L (136-145) 11/26/22 05:38 Potassium 4.7 mmol/L (3.5-5.1) 11/26/22 05:38 Chloride 103 mmol/L (98-107) 11/26/22 05:38 Carbon Dioxide 30 mmol/L (21-32) 11/26/22 05:38 Anion Gap 5 (3-11) 11/26/22 05:38 BUN 25 mg/dl (6-23) H 11/26/22 05:38 Creatinine 0.60 mg/dl (0.6-1.4) D 11/26/22 05:38 Est Cr Clr Drug Dosing 111.4 ml/min 11/26/22 05:38 Est GFR ( Amer) 119.7 ml/min 11/26/22 05:38 Est GFR (Non-Af Amer) 103.3 ml/min 11/26/22 05:38 BUN/Creatinine Ratio 41.7 (10-20) H 11/26/22 05:38 Glucose 59 mg/dl (70-99(Fasting)) L 11/26/22 05:38 POC Glucose 234 mg/dl (70-99) H 11/27/22 11:27 Estimat Average Glucose 171 mg/dl 11/25/22 05:39 Hemoglobin A1c 7.6 % (4.5-5.6) H 11/25/22 05:39 Lactate 0.7 mmol/L (0.4-2.0) 11/24/22 08:26 Calcium 8.8 mg/dl (8.5-10.1) 11/26/22 05:38 Phosphorus 3.1 mg/dl (2.5-4.9) 11/25/22 05:39 Magnesium 1.9 mg/dl (1.7-2.4) 11/25/22 05:39 Total Bilirubin 0.3 mg/dl (0.2-1.0) 11/26/22 05:38 Direct Bilirubin 0.1 mg/dl (0-0.2) 11/24/22 08:26 AST 44 U/L (13-39) H 11/26/22 05:38 ALT 42 U/L (7-52) 11/26/22 05:38 Alkaline Phosphatase 67 U/L (34-104) 11/26/22 05:38 Troponin I High Sens 74.3 pg/ml (0-20) H* D 11/24/22 20:32 Total Protein 5.5 gm/dl (6.0-8.3) L 11/26/22 05:38 Albumin 3.0 gm/dl (3.4-5.0) L 11/26/22 05:38 Globulin 2.5 gm/dl (2.5-4.0) 11/26/22 05:38 Albumin/Globulin Ratio 1.2 (0.9-2) 11/26/22 05:38 Procalcitonin 18.61 ng/ml (0-0.5) H 11/25/22 05:39 Urine Color Dark Yellow 11/24/22 08:24 Urine Appearance Clear (Clear) 11/24/22 08:24 Urine pH 5.0 (4.5-7.5) 11/24/22 08:24 Ur Specific [place] 1.024 (1.000-1.030) 11/24/22 08:24 Urine Protein Trace (Negative) H 11/24/22 08:24 Urine Glucose (UA) Negative (Negative) 11/24/22 08:24 Urine Ketones 1+ (Negative) H 11/24/22 08:24 Urine Blood Negative (Negative) 11/24/22 08:24 Urine Nitrite Negative (Negative) 11/24/22 08:24 Urine Bilirubin Negative (Negative) 11/24/22 08:24 Urine Urobilinogen Negative (Negative) 11/24/22 08:24 Ur Leukocyte Esterase Negative (Negative) 11/24/22 08:24 Urine WBC (Auto) 1-5 /hpf (0-5) 11/24/22 08:24 Urine RBC (Auto) 0-4 /hpf (0-4) 11/24/22 08:24 U Hyaline Cast (Auto) 1-5 /lpf (0-5) 11/24/22 08:24 U Epithel Cells (Auto) 5-10 /lpf (0-5) H 11/24/22 08:24 Urine Bacteria (Auto) Negative (Negative) 11/24/22 08:24 Nasal Screen MRSA (PCR) Negative (Negative) 11/25/22 09:42 Stl C. cayetanensis PCR Not Detected (NotDetected) 11/24/22 12:45 Stool Rotavirus A PCR Not Detected (NotDetected) 11/24/22 12:45 Stl Adenov F 40/41 PCR Not Detected (NotDetected) 11/24/22 12:45 Stool Astrovirus (PCR) Not Detected (NotDetected) 11/24/22 12:45 Stool Campylobacter PCR Not Detected (NotDetected) 11/24/22 12:45 Stl C. diff Tox B Gene Positive Cdiff Gene (Neg) H 11/24/22 12:45 Stl C.difficile Tox A&B Negative Cdiff Toxin (Negative) 11/24/22 12:45 Stool Cryptosporidium PCR Not Detected (NotDetected) 11/24/22 12:45 Stl E.coli Shiga Tox PCR Not Detected (NotDetected) 11/24/22 12:45 Stl Enterotoxigenic E PCR Not Detected (NotDetected) 11/24/22 12:45 Stool EPEC (PCR) Not Detected (NotDetected) 11/24/22 12:45 Stool EAEC (PCR) Not Detected (NotDetected) 11/24/22 12:45 Stl E. histolytica PCR Not Detected (NotDetected) 11/24/22 12:45 Stool Giardia Lamblia PCR Not Detected (NotDetected) 11/24/22 12:45 Stool Salmonella PCR Not Detected (NotDetected) 11/24/22 12:45 Stool Sapovirus (PCR) Not Detected (NotDetected) 11/24/22 12:45 Stl P. shigelloides PCR Not Detected (NotDetected) 11/24/22 12:45 Stl Shigella/EIEC PCR Not Detected (NotDetected) 11/24/22 12:45 St Y.enterocolitica PCR Not Detected (NotDetected) 11/24/22 12:45 Stool Vibrio (PCR) Not Detected (NotDetected) 11/24/22 12:45 Stl Vibrio cholerae PCR Not Detected (NotDetected) 11/24/22 12:45 Stl Norovirus GI/GII PCR Not Detected (NotDetected) 11/24/22 12:45 SARS-CoV-2 (PCR) NEGATIVE (Negative) 11/24/22 08:24 Influenza Type A (PCR) Negative (Neg) 11/24/22 08:24 Influenza Type B (PCR) Negative (Neg) 11/24/22 08:24 RSV (RT-PCR) Negative (Neg) 11/24/22 08:[address] 11/24/22 13:31 CT OF THE HEAD WITHOUT CONTRAST CLINICAL HISTORY: Confusion. COMPARISON STUDY: Head CT May 01, 2022. CT DOSE: 614.27 mGy.cm TECHNIQUE: Helical axial images of the head were obtained without IV contrast. Automated exposure control was utilized for the study. A dose lowering technique was utilized adhering to the principles of ALARA. FINDINGS: No acute intracranial hemorrhage, midline shift or mass effect is present. White matter hypodensities are unchanged and favor small vessel disease. There is bilateral basal ganglia calcification. The ventricular system is unremarkable. The basal cisterns are patent. No extra-axial collections are present. There are no findings to suggest acute dural sinus thrombosis or acute territorial infarct. No significant calvarial abnormalities are present. Trace fluid within the left mastoid air cells. Apparent rotation/subluxation of C1 on C2 is partially imaged on this exam. This is probably positional. IMPRESSION: No acute intracranial findings. No change in appearance of the brain. ACT 112: Negative or not required by law. Electronically signed by: Matias Benson M.D. 11/24/2022 3:05 PM Videofluoroscopic Swallow 11/26/22 09:45 FL video swallow CLINICAL HISTORY: 67 years-old Male with r/o aspiration. Dysphasia with possible aspiration TECHNIQUE: Video fluoroscopic evaluation of swallowing was performed in the AP and lateral projections by the speech pathology staff. The patient is fed thin liquid, mildly thick and pudding consistencies. FLUOROSCOPY TIME: 1.5 minutes. COMPARISON STUDY: CT cervical spine 03/23/2022 FINDINGS: The patient is edentulous. There is normal hyoid excursion and epiglottic deflection. No significant penetration or aspiration identified. Swallowing function is within normal limits. IMPRESSION: 1. No aspiration identified. 2. Please see the speech pathologist report for detailed findings and recommendations. ACT 112: Negative or not required by law. Electronically signed by: Bradley Whalen M.D. 11/26/2022 10:37 AM Chest X-Ray 11/26/22 11:32 XR chest 1V portable CLINICAL HISTORY: Follow up on b/l lung infiltrates COMPARISON STUDY: Chest radiograph November 24, 2022. FINDINGS: Extensive bilateral airspace opacities have progressed since prior examination. Patient is rotated. There is no pneumothorax or pleural effusion. There is cardiomegaly. Multiple old bilateral rib fractures are incidentally noted. IMPRESSION: Progression of extensive bilateral airspace opacities. Multifocal pneumonia is favored however pulmonary edema could appear similar. ACT 112: Negative or not required by law. Electronically signed by: Maitas Benson M.D. 11/26/2022 2:16 PM (1) Sepsis Acute respiratory failure type: with hypoxia Sepsis acute organ dysfunction status: with acute organ dysfunction Sepsis type: sepsis due to unspecified organism Severe sepsis acute organ dysfunction type: acute respiratory failure Severe sepsis shock status: unspecified Qualified Code(s): A41.9 - Sepsis, unspecified organism; R65.20 - Severe sepsis without septic shock; J96.01 - Acute respiratory failure with hypoxia (2) Pneumonia Laterality: left Lung location: unspecified part of lung Pneumonia type: due to unspecified organism Qualified Code(s): J18.9 - Pneumonia, unspecified organism (3) Anemia Anemia type: unspecified type Qualified Code(s): D64.9 - Anemia, unspecified
[2022-11-27] MEDS: traZODone HCL 50 MG TAB PO SCH (21:35)
[2022-11-27] MEDS: ENOXAPARIN INJ 40 MG/0.4 ML SYR SQ SCH (21:38)
[2022-11-27] MEDS: SIMVASTATIN 40 MG TAB PO SCH (21:38)
[2022-11-28] MEDS: SODIUM CHLOR 7% 4 ML NEB NEB SCH ×2 (06:56→19:33)
[2022-11-28] MEDS: ALBUTEROL 0.083% NEBU SOLN 3 ML VIAL NEB SCH ×2 (06:56→19:33)
[2022-11-28] MEDS: CHOLECALCIFEROL 1,000 UNITS 25 MCG TAB PO SCH (08:23)
[2022-11-28] MEDS: MAGNESIUM OXIDE 400 MG TAB PO SCH ×2 (08:24→20:41)
[2022-11-28] MEDS: PENTOXIFYLLINE 400MG EXT REL TAB PO SCH ×3 (08:24→20:40)
[2022-11-28] MEDS: PANTOprazole 40 MG TAB PO SCH (08:24)
[2022-11-28] MEDS: METOPROLOL TARTRATE 25 MG TAB PO SCH ×2 (08:24→20:42)
[2022-11-28] MEDS: ESCITALOPRAM OXALATE 20 MG TAB PO SCH (08:24)
[2022-11-28] MEDS: METOCLOPRAMIDE HCL 5 MG TABLET PO SCH ×4 (08:24→20:42)
[2022-11-28] MEDS: LORATADINE 10 MG TAB PO SCH (08:24)
[2022-11-28] MEDS: SACCHAROMYCES BOULARDII 250 MG CAP PO SCH (08:24)
[2022-11-28] MEDS: UMECLIDINIUM BROMIDE 62.5MCG/BLISTER 7 PUFFS/INHALER INH SCH (08:25)
[2022-11-28] MEDS: risperiDONE 2 MG TABLET PO SCH ×3 (08:25→20:43)
[2022-11-28] MEDS: OXcarbazepine 150 MG TABLET PO SCH ×2 (08:25→20:43)
[2022-11-28] MEDS: MULTIVITAMIN TAB PO SCH (08:25)
[2022-11-28] MEDS: guaiFENesin 600 MG TABCR PO SCH ×2 (08:25→20:40)
[2022-11-28] MEDS: clonazePAM 0.5 MG TAB PO SCH ×2 (08:36→20:47)
[2022-11-28] MEDS: INSULIN ASPART PER UNIT SC SCH ×4 (09:39→21:59)
[2022-11-28] MEDS: LANTUS PER UNIT CHARGE SQ SCH (09:39)
[2022-11-28] MEDS ORDERED: PHARMACY GLYCEMIC MGMT CONSULT PRN (11:41)
[2022-11-28] MEDS ORDERED: LANTUS PER UNIT CHARGE SQ ONE (12:00)
--- NOTE | 2022-11-28 13:28 | Hospitalist Progress Note ---
Date of Service November 28, 2022 Assessment & Plan (1) Sepsis: (2) Acute hypoxemic respiratory failure: (3) Pneumonia: (4) Elevated troponin: (5) Pressure ulcer of coccygeal region, stage 3: (6) Diabetes mellitus, type 2: (7) Anemia: (8) Intellectual disability: Plan This is a 67-year-old male who has a significant past medical history of PAF, T2DM, COPD, [place], chronic stasis dermatitis, intellectual disability and hyperlipidemia who presents to ED secondary to unresponsiveness and hypoxia. Patient meets for sepsis secondary to tachycardia and fever. In ED he received 2.7 L of IV fluid resuscitation with improvement in tachycardia. He received APAP for fever. Source: Right sided pneumonia He received broad-spectrum antibiotics with IV Unasyn. Blood cultures are pending He was hemodynamically stable at time of admission. Sepsis Acute hypoxic respiratory failure Right-sided pneumonia Normotensive, oxygen requirement down trended to room air. Pro-Ja elevated to 18.6 Repeat x-ray shows persistent pneumonia. 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 VFSS doesn't show any signs of aspiration. Switch over to Levaquin as aspiration is rule out Continue airway clearance with bilateral duo nebs and hypertonic saline and CoughAssist. Supplemental oxygen as needed. Elevated troponin Demand ischemia SVT No formal history of CAD documented Likely demand in setting of underlying sepsis, no reports of chest pain or ischemic EKG change High sensitive troponin down trended from 160 to 70s. Last echo December 2021 which revealed preserved EF 60 to 65%, mild concentric LVH, mild valvular aortic stenosis Echo shows EF of 60 to 65%; grade 1 diastolic function. On telemetry on 11/26; patient had intermittent episodes of SVT for short period. We will add metoprolol 12.5 twice daily and continue to monitor on telemetry. T2DM Last A1c 6.2 on 08/16/2022; Lantus/NovoLog per protocol Pharmacy on board. Stage 3 coccyx wound following wound care has been on oral amoxicillin, to finish 11/25 currently on levaquin turn and position q2, consult wound care continue Howard Intellectual disability resides at [facility] wheel chair bound at baseline continue oxcarbazepine, trazodone, risperidone COPD no acute exac continue incruse Hx of PAF in NSR, not on any rate/rhythm agents not on OAC HLD continue statin PVD/PAD Chronic stasis dermatitis no signs of cellulitis continue pentoxifylline DVT ppx: SQ Lovenox Dispo: Tele PCP: Clari FULL CODE Dispo- From custodial. PT/OT ordered; patient will need rehab before he can go back to [facility]. Case management on board. Admission and Anticipated Discharge Date Admission Date: November 24, 2022 Subjective Patient seen and examined at bedside. Is comfortably sitting up; not in distress. He is saturating well on room air. Telemetry shows short run of SVT. Review of Systems Review of Systems: All systems reviewed & are unremarkable except as noted in Subjective Physical Exam Physical Exam: Constitutional: Alert, oriented to self; not in any distress. Respiratory: coarse crackles heard in bilateral bases; more in right side. Improved compared to admission. Cardiovascular: RRR,1/6 mark, no edema but bilateral chronic venous stasis changes vessels: no JVD or carotid bruit Chest: normal inspection of chest Abdomen: normal bowel sounds, soft, nontender, no hepatosplenomegaly Musculoskeletal: no cyanosis or clubbing, unable to assess MSK due to pt unable to follow direction Skin: no rashes, warm and moderate normal turgor Neurologic: PERRL, EOMI, accommodation nl, no face palsy, no dysarthria CN's II-XI intact bilaterally and moves all extremities Psychiatric: A+O to self and place only, euthymic affect Lymphatic: no cervical or axillary lymphadenopathy : deferred Results & Data Results & Data ([facility]) Vital Signs (Past 12 Hours) Vital Signs Temp Pulse Pulse Resp BP Pulse Ox O2 Del Method 11/28/22 08:00 95 H 11/28/22 10:29 36.7 C 74 18 110/67 93 Room Air 11/28/22 07:16 36.9 C 101 H 17 138/64 100 Room Air 11/28/22 06:56 104 H 16 93 Room Air 11/28/22 03:54 36.5 C 99 H 18 128/80 98 Room Air Laboratory Results Laboratory Results WBC 6.19 K/ul (4.8-10.8) 11/26/22 05:38 RBC 2.66 M/uL (4.70-6.10) L 11/26/22 05:38 Hgb 8.6 g/dl (14.0-18.0) L 11/26/22 05:38 Hct 27.0 % (42.0-52.0) L 11/26/22 05:38 MCV 101.5 fL (80.0-100.0) H 11/26/22 05:38 MCH 32.3 pg (25.0-34.0) 11/26/22 05:38 MCHC 31.9 g/dL (32.0-36.0) L 11/26/22 05:38 RDW Std Deviation 50.8 fL (36.4-46.3) H 11/26/22 05:38 RDW Coeff of Drew 13.5 % (11.5-14.5) 11/26/22 05:38 Plt Count 117 K/uL (130-400) L 11/26/22 05:38 MPV 10.7 fL (9.4-12.4) 11/26/22 05:38 Immature Gran % (Auto) 0.3 % 11/26/22 05:38 Neut % (Auto) 81.7 % 11/26/22 05:38 Lymph % (Auto) 11.5 % 11/26/22 05:38 [place] % (Auto) 5.7 % 11/26/22 05:38 Eos % (Auto) 0.3 % 11/26/22 05:38 Baso % (Auto) 0.5 % 11/26/22 05:38 Neut # (Auto) 5.06 K/uL (1.40-6.50) 11/26/22 05:38 Lymph # (Auto) 0.71 K/uL (1.2-3.4) L 11/26/22 05:38 [place] # (Auto) 0.35 K/uL (0.11-0.59) 11/26/22 05:38 Eos # (Auto) 0.02 K/uL (0-0.50) 11/26/22 05:38 Baso # (Auto) 0.03 K/uL (0-0.2) 11/26/22 05:38 Immature Gran # (Auto) 0.02 K/uL (0.01-0.20) 11/26/22 05:38 Toxic Vacuolation 1+ 11/24/22 08:26 Platelet Estimate Decreased (Normal) L 11/26/22 05:38 Rouleaux 1+ 11/26/22 05:38 Sodium 138 mmol/L (136-145) 11/26/22 05:38 Potassium 4.7 mmol/L (3.5-5.1) 11/26/22 05:38 Chloride 103 mmol/L (98-107) 11/26/22 05:38 Carbon Dioxide 30 mmol/L (21-32) 11/26/22 05:38 Anion Gap 5 (3-11) 11/26/22 05:38 BUN 25 mg/dl (6-23) H 11/26/22 05:38 Creatinine 0.60 mg/dl (0.6-1.4) D 11/26/22 05:38 Est Cr Clr Drug Dosing 111.4 ml/min 11/26/22 05:38 Est GFR ( Amer) 119.7 ml/min 11/26/22 05:38 Est GFR (Non-Af Amer) 103.3 ml/min 11/26/22 05:38 BUN/Creatinine Ratio 41.7 (10-20) H 11/26/22 05:38 Glucose 59 mg/dl (70-99(Fasting)) L 11/26/22 05:38 POC Glucose 326 mg/dl (70-99) H* 11/28/22 11:35 Estimat Average Glucose 171 mg/dl 11/25/22 05:39 Hemoglobin A1c 7.6 % (4.5-5.6) H 11/25/22 05:39 Lactate 0.7 mmol/L (0.4-2.0) 11/24/22 08:26 Calcium 8.8 mg/dl (8.5-10.1) 11/26/22 05:38 Phosphorus 3.1 mg/dl (2.5-4.9) 11/25/22 05:39 Magnesium 1.9 mg/dl (1.7-2.4) 11/25/22 05:39 Total Bilirubin 0.3 mg/dl (0.2-1.0) 11/26/22 05:38 Direct Bilirubin 0.1 mg/dl (0-0.2) 11/24/22 08:26 AST 44 U/L (13-39) H 11/26/22 05:38 ALT 42 U/L (7-52) 11/26/22 05:38 Alkaline Phosphatase 67 U/L (34-104) 11/26/22 05:38 Troponin I High Sens 74.3 pg/ml (0-20) H* D 11/24/22 20:32 Total Protein 5.5 gm/dl (6.0-8.3) L 11/26/22 05:38 Albumin 3.0 gm/dl (3.4-5.0) L 11/26/22 05:38 Globulin 2.5 gm/dl (2.5-4.0) 11/26/22 05:38 Albumin/Globulin Ratio 1.2 (0.9-2) 11/26/22 05:38 Procalcitonin 18.61 ng/ml (0-0.5) H 11/25/22 05:39 Urine Color Dark Yellow 11/24/22 08:24 Urine Appearance Clear (Clear) 11/24/22 08:24 Urine pH 5.0 (4.5-7.5) 11/24/22 08:24 Ur Specific [place] 1.024 (1.000-1.030) 11/24/22 08:24 Urine Protein Trace (Negative) H 11/24/22 08:24 Urine Glucose (UA) Negative (Negative) 11/24/22 08:24 Urine Ketones 1+ (Negative) H 11/24/22 08:24 Urine Blood Negative (Negative) 11/24/22 08:24 Urine Nitrite Negative (Negative) 11/24/22 08:24 Urine Bilirubin Negative (Negative) 11/24/22 08:24 Urine Urobilinogen Negative (Negative) 11/24/22 08:24 Ur Leukocyte Esterase Negative (Negative) 11/24/22 08:24 Urine WBC (Auto) 1-5 /hpf (0-5) 11/24/22 08:24 Urine RBC (Auto) 0-4 /hpf (0-4) 11/24/22 08:24 U Hyaline Cast (Auto) 1-5 /lpf (0-5) 11/24/22 08:24 U Epithel Cells (Auto) 5-10 /lpf (0-5) H 11/24/22 08:24 Urine Bacteria (Auto) Negative (Negative) 11/24/22 08:24 Nasal Screen MRSA (PCR) Negative (Negative) 11/25/22 09:42 Stl C. cayetanensis PCR Not Detected (NotDetected) 11/24/22 12:45 Stool Rotavirus A PCR Not Detected (NotDetected) 11/24/22 12:45 Stl Adenov F 40/41 PCR Not Detected (NotDetected) 11/24/22 12:45 Stool Astrovirus (PCR) Not Detected (NotDetected) 11/24/22 12:45 Stool Campylobacter PCR Not Detected (NotDetected) 11/24/22 12:45 Stl C. diff Tox B Gene Positive Cdiff Gene (Neg) H 11/24/22 12:45 Stl C.difficile Tox A&B Negative Cdiff Toxin (Negative) 11/24/22 12:45 Stool Cryptosporidium PCR Not Detected (NotDetected) 11/24/22 12:45 Stl E.coli Shiga Tox PCR Not Detected (NotDetected) 11/24/22 12:45 Stl Enterotoxigenic E PCR Not Detected (NotDetected) 11/24/22 12:45 Stool EPEC (PCR) Not Detected (NotDetected) 11/24/22 12:45 Stool EAEC (PCR) Not Detected (NotDetected) 11/24/22 12:45 Stl E. histolytica PCR Not Detected (NotDetected) 11/24/22 12:45 Stool Giardia Lamblia PCR Not Detected (NotDetected) 11/24/22 12:45 Stool Salmonella PCR Not Detected (NotDetected) 11/24/22 12:45 Stool Sapovirus (PCR) Not Detected (NotDetected) 11/24/22 12:45 Stl P. shigelloides PCR Not Detected (NotDetected) 11/24/22 12:45 Stl Shigella/EIEC PCR Not Detected (NotDetected) 11/24/22 12:45 St Y.enterocolitica PCR Not Detected (NotDetected) 11/24/22 12:45 Stool Vibrio (PCR) Not Detected (NotDetected) 11/24/22 12:45 Stl Vibrio cholerae PCR Not Detected (NotDetected) 11/24/22 12:45 Stl Norovirus GI/GII PCR Not Detected (NotDetected) 11/24/22 12:45 SARS-CoV-2 (PCR) NEGATIVE (Negative) 11/24/22 08:24 Influenza Type A (PCR) Negative (Neg) 11/24/22 08:24 Influenza Type B (PCR) Negative (Neg) 11/24/22 08:24 RSV (RT-PCR) Negative (Neg) 11/24/22 08:[address] 11/24/22 13:31 CT OF THE HEAD WITHOUT CONTRAST CLINICAL HISTORY: Confusion. COMPARISON STUDY: Head CT May 01, 2022. CT DOSE: 614.27 mGy.cm TECHNIQUE: Helical axial images of the head were obtained without IV contrast. Automated exposure control was utilized for the study. A dose lowering technique was utilized adhering to the principles of ALARA. FINDINGS: No acute intracranial hemorrhage, midline shift or mass effect is present. White matter hypodensities are unchanged and favor small vessel disease. There is bilateral basal ganglia calcification. The ventricular system is unremarkable. The basal cisterns are patent. No extra-axial collections are present. There are no findings to suggest acute dural sinus thrombosis or acute territorial infarct. No significant calvarial abnormalities are present. Trace fluid within the left mastoid air cells. Apparent rotation/subluxation of C1 on C2 is partially imaged on this exam. This is probably positional. IMPRESSION: No acute intracranial findings. No change in appearance of the brain. ACT 112: Negative or not required by law. Electronically signed by: Matias Benson M.D. 11/24/2022 3:05 PM Videofluoroscopic Swallow 11/26/22 09:45 FL video swallow CLINICAL HISTORY: 67 years-old Male with r/o aspiration. Dysphasia with possible aspiration TECHNIQUE: Video fluoroscopic evaluation of swallowing was performed in the AP and lateral projections by the speech pathology staff. The patient is fed thin liquid, mildly thick and pudding consistencies. FLUOROSCOPY TIME: 1.5 minutes. COMPARISON STUDY: CT cervical spine 03/23/2022 FINDINGS: The patient is edentulous. There is normal hyoid excursion and epiglottic deflection. No significant penetration or aspiration identified. Swallowing function is within normal limits. IMPRESSION: 1. No aspiration identified. 2. Please see the speech pathologist report for detailed findings and recommendations. ACT 112: Negative or not required by law. Electronically signed by: Bradley Whalen M.D. 11/26/2022 10:37 AM Chest X-Ray 11/26/22 11:32 XR chest 1V portable CLINICAL HISTORY: Follow up on b/l lung infiltrates COMPARISON STUDY: Chest radiograph November 24, 2022. FINDINGS: Extensive bilateral airspace opacities have progressed since prior examination. Patient is rotated. There is no pneumothorax or pleural effusion. There is cardiomegaly. Multiple old bilateral rib fractures are incidentally noted. IMPRESSION: Progression of extensive bilateral airspace opacities. Multifocal pneumonia is favored however pulmonary edema could appear similar. ACT 112: Negative or not required by law. Electronically signed by: Matias Benson M.D. 11/26/2022 2:16 PM (1) Sepsis Acute respiratory failure type: with hypoxia Sepsis acute organ dysfunction status: with acute organ dysfunction Sepsis type: sepsis due to unspecified organism Severe sepsis acute organ dysfunction type: acute respiratory failure Severe sepsis shock status: unspecified Qualified Code(s): A41.9 - Sepsis, unspecified organism; R65.20 - Severe sepsis without septic shock; J96.01 - Acute respiratory failure with hypoxia (2) Pneumonia Laterality: left Lung location: unspecified part of lung Pneumonia type: due to unspecified organism Qualified Code(s): J18.9 - Pneumonia, unspecified organism (3) Anemia Anemia type: unspecified type Qualified Code(s): D64.9 - Anemia, unspecified
[2022-11-28] MEDS: levoFLOXacin/D5W 750 MG/150 ML BAG IV SCH (13:32)
--- NOTE | 2022-11-28 14:02 | Pharmacy Report ---
Pharmacy Glycemic Short Note 2 - Date of Service November 28, 2022 - Glycemic Short BSG Results (Last 24 hours): 11/27/22 11/27/22 11/28/22 16:47 21:24 07:51 POC Glucose 241 H 134 H 230 H 11/28/22 11/28/22 11/28/22 11:33 11:34 11:35 POC Glucose 313 H* 285 H 326 H* OUTPATIENT ANTIDIABETIC REGIMEN: * Metformin 1 g PO BIDM * Glimepiride 1 mg PO daily HbA1c: 7.6% (11/25/22) ASSESSMENT: * ALLYN is a 67 year old male admitted on 11/24/22 with sepsis secondary to possible infected coccyx wound/aspiration pneumonia * BSGs have been labile since time of admission, pharmacy consulted for glycemic management today at lunchtime for BSG of 326 mg/dL * Historical inpatient data suggests hx of labile BSGs with both hyper/hypoglycemia * Provider originally tightened Novolog parameters at time of consult, but will loosen carb ratio with dinner given past lows with too much bolus insulin * Previously seemed to be reasonable controlled with 16 units of basal - will give total of 15 units today and reassess in AM * T2DM diet ordered PLAN FOR INPATIENT GLYCEMIC CONTROL: * Hold outpatient oral diabetes medications * Basal insulin * Lantus 5 units SC x 1 this morning, 10 units SC x 1 this afternoon at time of consult * Reassess in AM * Bolus insulin * NovoLog per scale ACHS or Q6hrs while NPO * Goal Range: Low 110 mg/dL - High 140 mg/dL * Correction Factor: 35 mg/dL/unit * Nutritional / Prandial insulin per carb ratio of 1 unit per 15 grams CHO consumed
--- NOTE | 2022-11-28 14:12 | Electrocardiogram Report ---
Test Reason : Blood Pressure : / mmHG Vent. Rate : 089 BPM Atrial Rate : 089 BPM P-R Int : 158 ms QRS Dur : 074 ms QT Int : 336 ms P-R-T Axes : 069 038 060 degrees QTc Int : 408 ms Sinus rhythm with Premature atrial complexes with Aberrant conduction Otherwise normal ECG When compared with ECG of 25-NOV-2022 05:02, Aberrant conduction is now Present Confirmed by Harvey Bland ([id number]) on 11/28/2022 2:12:03 PM Referred By: REFERRED SELF Confirmed By:Harvey Bland
[2022-11-28] MEDS: traZODone HCL 50 MG TAB PO SCH (20:38)
[2022-11-28] MEDS: ENOXAPARIN INJ 40 MG/0.4 ML SYR SQ SCH (20:39)
[2022-11-28] MEDS: SIMVASTATIN 40 MG TAB PO SCH (20:44)
[2022-11-28] MEDS ORDERED: LANTUS PER UNIT CHARGE SQ SCH (21:00)
[2022-11-29 05:31] LABS: Basophils # (auto) 0.04 K/uL (0-0.2); Basophils % (auto) 0.8 %; Eosinophils # (auto) 0.09 K/uL (0-0.50); Eosinophils % (auto) 1.7 %; Hematocrit (blood only) 29.3 % (42.0-52.0); Hemoglobin 9.3 g/dl (14.0-18.0); Immature Granulocytes # (auto) 0.01 K/uL (0.01-0.20); Immature Granulocytes % (auto) 0.2 %; Lymphocytes # (auto) 1.39 K/uL (1.2-3.4); Lymphocytes % (auto) 26.8 %; Mean Corpuscular Hemoglobin 31.6 pg (25.0-34.0); Mean Corpuscular Hgb Conc 31.7 g/dL (32.0-36.0); Mean Corpuscular Volume 99.7 fL (80.0-100.0); Mean Platelet Volume 10.6 fL (9.4-12.4); Monocytes # (auto) 0.46 K/uL (0.11-0.59); Monocytes % (auto) 8.9 %; Neutrophils % (auto) 61.6 %; Platelet Count 177 K/uL (130-400); RDW Coefficient of Variation 13.4 % (11.5-14.5); Red Blood Count 2.94 M/uL (4.70-6.10); White Blood Count 5.19 K/ul (4.8-10.8)
[2022-11-29 05:44] LABS: Albumin Globulin Ratio 1.1 (0.9-2); BUN Creatinine Ratio 42.2 (10-20); Bilirubin,Total 0.4 mg/dl (0.2-1.0); Calcium 9.3 mg/dl (8.5-10.1); Creatinine Clr Calc Pharmacy 80.5 ml/min; Est GFR (African American) 104.8 ml/min; Est GFR (Non-African American) 90.4 ml/min; Globulin 2.8 gm/dl (2.5-4.0); Potassium 4.8 mmol/L (3.5-5.1); Total Protein 5.8 gm/dl (6.0-8.3)
[2022-11-29] MEDS: ALBUTEROL 0.083% NEBU SOLN 3 ML VIAL NEB SCH ×2 (06:53→19:10)
[2022-11-29] MEDS: SODIUM CHLOR 7% 4 ML NEB NEB SCH ×2 (06:53→19:10)
[2022-11-29] MEDS: MULTIVITAMIN TAB PO SCH (08:34)
[2022-11-29] MEDS: METOCLOPRAMIDE HCL 5 MG TABLET PO SCH ×4 (08:34→20:45)
[2022-11-29] MEDS: PENTOXIFYLLINE 400MG EXT REL TAB PO SCH ×3 (08:34→20:42)
[2022-11-29] MEDS: PANTOprazole 40 MG TAB PO SCH (08:34)
[2022-11-29] MEDS: ESCITALOPRAM OXALATE 20 MG TAB PO SCH (08:34)
[2022-11-29] MEDS: SACCHAROMYCES BOULARDII 250 MG CAP PO SCH (08:34)
[2022-11-29] MEDS: LORATADINE 10 MG TAB PO SCH (08:34)
[2022-11-29] MEDS: OXcarbazepine 150 MG TABLET PO SCH ×2 (08:35→20:45)
[2022-11-29] MEDS: CHOLECALCIFEROL 1,000 UNITS 25 MCG TAB PO SCH (08:35)
[2022-11-29] MEDS: risperiDONE 2 MG TABLET PO SCH ×3 (08:35→20:44)
[2022-11-29] MEDS: METOPROLOL TARTRATE 25 MG TAB PO SCH (08:35)
[2022-11-29] MEDS: guaiFENesin 600 MG TABCR PO SCH ×2 (08:35→20:46)
[2022-11-29] MEDS: INSULIN ASPART PER UNIT SC SCH ×4 (08:37→20:34)
[2022-11-29] MEDS: clonazePAM 0.5 MG TAB PO SCH ×2 (08:37→20:42)
[2022-11-29] MEDS: LANTUS PER UNIT CHARGE SQ SCH (08:39)
[2022-11-29] MEDS: UMECLIDINIUM BROMIDE 62.5MCG/BLISTER 7 PUFFS/INHALER INH SCH (08:57)
[2022-11-29] MEDS: MAGNESIUM OXIDE 400 MG TAB PO SCH ×2 (08:57→20:46)
--- NOTE | 2022-11-29 12:52 | Pharmacy Report ---
Pharmacy Glycemic Short Note 2 - Date of Service November 29, 2022 - Glycemic Short BSG Results (Last 24 hours): 11/28/22 11/28/22 11/28/22 14:53 16:37 16:38 Glucose POC Glucose 159 H 69 L* 75 11/28/22 11/29/22 11/29/22 20:26 04:35 07:39 Glucose 204 H POC Glucose 173 H 247 H 11/29/22 11:54 Glucose POC Glucose 216 H OUTPATIENT ANTIDIABETIC REGIMEN: * Metformin 1 g PO BIDM * Glimepiride 1 mg PO daily HbA1c: 7.6% (11/25/22) ASSESSMENT: 11/29/22: * Hypoglycemia noted at dinnertime yesterday following tightened Novolog parameters, parameters loosened at time of consult and will continue these * Fasting BSG elevated this morning, likely related to inadequate basal insulin on days prior * Previous admission data shows that 16 units SC daily is typically appropriate - will continue this now * Novolog parameters per last admission as well 11/28/22: * BC is a 67 year old male admitted on 11/24/22 with sepsis secondary to possible infected coccyx wound/aspiration pneumonia * BSGs have been labile since time of admission, pharmacy consulted for glycemic management today at lunchtime for BSG of 326 mg/dL * Historical inpatient data suggests hx of labile BSGs with both hyper/h ypoglycemia * Provider originally tightened Novolog parameters at time of consult, but will loosen carb ratio with dinner given past lows with too much bolus insulin * Previously seemed to be reasonable controlled with 16 units of basal - will give total of 15 units today and reassess in AM * T2DM diet ordered PLAN FOR INPATIENT GLYCEMIC CONTROL: * Hold outpatient oral diabetes medications * Basal insulin * Lantus 16 units SC daily * Bolus insulin * NovoLog per scale ACHS or Q6hrs while NPO * Goal Range: Low 110 mg/dL - High 140 mg/dL * Correction Factor: 35 mg/dL/unit at breakfast and 40 mg/dL/unit at lunch, dinner, HS * Nutritional / Prandial insulin per carb ratio of 1 unit per 9 grams CHO consumed with breakfast, 1 unit per 16 grams CHO consumed with lunch, dinner, and HS
--- NOTE | 2022-11-29 14:37 | Hospitalist Progress Note ---
Date of Service November 29, 2022 Assessment & Plan (1) Sepsis: (2) Acute hypoxemic respiratory failure: (3) Pneumonia: (4) Elevated troponin: (5) Pressure ulcer of coccygeal region, stage 3: (6) Diabetes mellitus, type 2: (7) Anemia: (8) Intellectual disability: Plan This is a 67-year-old male who has a significant past medical history of PAF, T2DM, COPD, [place], chronic stasis dermatitis, intellectual disability and hyperlipidemia who presents to ED secondary to unresponsiveness and hypoxia. Patient meets for sepsis secondary to tachycardia and fever. In ED he received 2.7 L of IV fluid resuscitation with improvement in tachycardia. He received APAP for fever. Source: Right sided pneumonia He received broad-spectrum antibiotics with IV Unasyn. Blood cultures are pending He was hemodynamically stable at time of admission. Sepsis Acute hypoxic respiratory failure Right-sided pneumonia Normotensive, oxygen requirement down trended to room air. Pro-Ja elevated to 18.6 Repeat x-ray shows persistent pneumonia. Plan; - ELECTRICIAN DECK eval ; assuring bedside swallow evaluation. VFSS doesn't show any signs of aspiration. Switch over to Levaquin as aspiration is rule out Continue airway clearance withduo nebs and hypertonic . Supplemental oxygen as needed. Elevated troponin Demand ischemia SVT No formal history of CAD documented Likely demand in setting of underlying sepsis, no reports of chest pain or ischemic EKG change High sensitive troponin down trended from 160 to 70s. Last echo December 2021 which revealed preserved EF 60 to 65%, mild concentric LVH, mild valvular aortic stenosis Echo shows EF of 60 to 65%; grade 1 diastolic function. On telemetry on 11/26; patient had intermittent episodes of SVT for short period. We will add metoprolol 12.5 twice daily and continue to monitor on telemetry. T2DM Last A1c 6.2 on 08/16/2022; Lantus/NovoLog per protocol Pharmacy on board. Stage 3 coccyx wound following wound care has been on oral amoxicillin, to finish 11/25 currently on levaquin turn and position q2, consult wound care continue Howard Intellectual disability resides at [facility] home wheel chair bound at baseline continue oxcarbazepine, trazodone, risperidone COPD no acute exac continue incruse Hx of PAF in NSR, not on any rate/rhythm agents not on OAC HLD continue statin PVD/PAD Chronic stasis dermatitis no signs of cellulitis continue pentoxifylline DVT ppx: SQ Lovenox Dispo: Tele PCP: Clari FULL CODE Dispo- From residential. PT/OT ordered; patient will need rehab before he can go back to detention. Case management on board. Admission and Anticipated Discharge Date Admission Date: November 24, 2022 Subjective Patient seen and examined at bedside. Comfortable; not in any distress. Saturating well in RA. Review of Systems Review of Systems: All systems reviewed & are unremarkable except as noted in Subjective Physical Exam Physical Exam: Constitutional: Alert, oriented to self; not in any distress. Respiratory: coarse crackles heard in bilateral bases; more in right side. Improved compared to admission. Cardiovascular: RRR,1/6 mark, no edema but bilateral chronic venous stasis changes vessels: no JVD or carotid bruit Chest: normal inspection of chest Abdomen: normal bowel sounds, soft, nontender, no hepatosplenomegaly Musculoskeletal: no cyanosis or clubbing, unable to assess MSK due to pt unable to follow direction Skin: no rashes, warm and moderate normal turgor Neurologic: PERRL, EOMI, accommodation nl, no face palsy, no dysarthria CN's II-XI intact bilaterally and moves all extremities Psychiatric: A+O to self and place only, euthymic affect Lymphatic: no cervical or axillary lymphadenopathy : deferred Results & Data Results & Data ([facility]) Vital Signs (Past 12 Hours) Vital Signs Temp Pulse Pulse Resp BP Pulse Ox O2 Del Method 11/29/22 11:44 36.8 C 64 18 111/67 92 Room Air 11/29/22 08:00 58 L 11/29/22 07:30 36.4 C L 64 20 121/69 92 Room Air 11/29/22 06:56 68 18 95 Room Air Laboratory Results Laboratory Results WBC 5.19 K/ul (4.8-10.8) 11/29/22 04:35 RBC 2.94 M/uL (4.70-6.10) L 11/29/22 04:35 Hgb 9.3 g/dl (14.0-18.0) L 11/29/22 04:35 Hct 29.3 % (42.0-52.0) L 11/29/22 04:35 MCV 99.7 fL (80.0-100.0) 11/29/22 04:35 MCH 31.6 pg (25.0-34.0) 11/29/22 04:35 MCHC 31.7 g/dL (32.0-36.0) L 11/29/22 04:35 RDW Std Deviation 49.0 fL (36.4-46.3) H 11/29/22 04:35 RDW Coeff of Drew 13.4 % (11.5-14.5) 11/29/22 04:35 Plt Count 177 K/uL (130-400) 11/29/22 04:35 MPV 10.6 fL (9.4-12.4) 11/29/22 04:35 Immature Gran % (Auto) 0.2 % 11/29/22 04:35 Neut % (Auto) 61.6 % 11/29/22 04:35 Lymph % (Auto) 26.8 % 11/29/22 04:35 [place] % (Auto) 8.9 % 11/29/22 04:35 Eos % (Auto) 1.7 % 11/29/22 04:35 Baso % (Auto) 0.8 % 11/29/22 04:35 Neut # (Auto) 3.20 K/uL (1.40-6.50) 11/29/22 04:35 Lymph # (Auto) 1.39 K/uL (1.2-3.4) 11/29/22 04:35 [place]ay # (Auto) 0.46 K/uL (0.11-0.59) 11/29/22 04:35 Eos # (Auto) 0.09 K/uL (0-0.50) 11/29/22 04:35 Baso # (Auto) 0.04 K/uL (0-0.2) 11/29/22 04:35 Immature Gran # (Auto) 0.01 K/uL (0.01-0.20) 11/29/22 04:35 Toxic Vacuolation 1+ 11/24/22 08:26 Platelet Estimate Decreased (Normal) L 11/26/22 05:38 Rouleaux 1+ 11/26/22 05:38 Sodium 136 mmol/L (136-145) 11/29/22 04:35 Potassium 4.8 mmol/L (3.5-5.1) 11/29/22 04:35 Chloride 100 mmol/L (98-107) 11/29/22 04:35 Carbon Dioxide 33 mmol/L (21-32) H 11/29/22 04:35 Anion Gap 3 (3-11) 11/29/22 04:35 BUN 35 mg/dl (6-23) H 11/29/22 04:35 Creatinine 0.83 mg/dl (0.6-1.4) 11/29/22 04:35 Est Cr Clr Drug Dosing 80.5 ml/min 11/29/22 04:35 Est GFR ( Amer) 104.8 ml/min 11/29/22 04:35 Est GFR (Non-Af Amer) 90.4 ml/min 11/29/22 04:35 BUN/Creatinine Ratio 42.2 (10-20) H 11/29/22 04:35 Glucose 204 mg/dl (70-99(Fasting)) H 11/29/22 04:35 POC Glucose 216 mg/dl (70-99) H 11/29/22 11:54 Estimat Average Glucose 171 mg/dl 11/25/22 05:39 Hemoglobin A1c 7.6 % (4.5-5.6) H 11/25/22 05:39 Lactate 0.7 mmol/L (0.4-2.0) 11/24/22 08:26 Calcium 9.3 mg/dl (8.5-10.1) 11/29/22 04:35 Phosphorus 3.1 mg/dl (2.5-4.9) 11/25/22 05:39 Magnesium 1.9 mg/dl (1.7-2.4) 11/25/22 05:39 Total Bilirubin 0.4 mg/dl (0.2-1.0) 11/29/22 04:35 Direct Bilirubin 0.1 mg/dl (0-0.2) 11/24/22 08:26 AST 22 U/L (13-39) 11/29/22 04:35 ALT 36 U/L (7-52) 11/29/22 04:35 Alkaline Phosphatase 86 U/L (34-104) 11/29/22 04:35 Troponin I High Sens 74.3 pg/ml (0-20) H* D 11/24/22 20:32 Total Protein 5.8 gm/dl (6.0-8.3) L 11/29/22 04:35 Albumin 3.0 gm/dl (3.4-5.0) L 11/29/22 04:35 Globulin 2.8 gm/dl (2.5-4.0) 11/29/22 04:35 Albumin/Globulin Ratio 1.1 (0.9-2) 11/29/22 04:35 Procalcitonin 18.61 ng/ml (0-0.5) H 11/25/22 05:39 Urine Color Dark Yellow 11/24/22 08:24 Urine Appearance Clear (Clear) 11/24/22 08:24 Urine pH 5.0 (4.5-7.5) 11/24/22 08:24 Ur Specific [place] 1.024 (1.000-1.030) 11/24/22 08:24 Urine Protein Trace (Negative) H 11/24/22 08:24 Urine Glucose (UA) Negative (Negative) 11/24/22 08:24 Urine Ketones 1+ (Negative) H 11/24/22 08:24 Urine Blood Negative (Negative) 11/24/22 08:24 Urine Nitrite Negative (Negative) 11/24/22 08:24 Urine Bilirubin Negative (Negative) 11/24/22 08:24 Urine Urobilinogen Negative (Negative) 11/24/22 08:24 Ur Leukocyte Esterase Negative (Negative) 11/24/22 08:24 Urine WBC (Auto) 1-5 /hpf (0-5) 11/24/22 08:24 Urine RBC (Auto) 0-4 /hpf (0-4) 11/24/22 08:24 U Hyaline Cast (Auto) 1-5 /lpf (0-5) 11/24/22 08:24 U Epithel Cells (Auto) 5-10 /lpf (0-5) H 11/24/22 08:24 Urine Bacteria (Auto) Negative (Negative) 11/24/22 08:24 Nasal Screen MRSA (PCR) Negative (Negative) 11/25/22 09:42 Stl C. cayetanensis PCR Not Detected (NotDetected) 11/24/22 12:45 Stool Rotavirus A PCR Not Detected (NotDetected) 11/24/22 12:45 Stl Adenov F 40/41 PCR Not Detected (NotDetected) 11/24/22 12:45 Stool Astrovirus (PCR) Not Detected (NotDetected) 11/24/22 12:45 Stool Campylobacter PCR Not Detected (NotDetected) 11/24/22 12:45 Stl C. diff Tox B Gene Positive Cdiff Gene (Neg) H 11/24/22 12:45 Stl C.difficile Tox A&B Negative Cdiff Toxin (Negative) 11/24/22 12:45 Stool Cryptosporidium PCR Not Detected (NotDetected) 11/24/22 12:45 Stl E.coli Shiga Tox PCR Not Detected (NotDetected) 11/24/22 12:45 Stl Enterotoxigenic E PCR Not Detected (NotDetected) 11/24/22 12:45 Stool EPEC (PCR) Not Detected (NotDetected) 11/24/22 12:45 Stool EAEC (PCR) Not Detected (NotDetected) 11/24/22 12:45 Stl E. histolytica PCR Not Detected (NotDetected) 11/24/22 12:45 Stool Giardia Lamblia PCR Not Detected (NotDetected) 11/24/22 12:45 Stool Salmonella PCR Not Detected (NotDetected) 11/24/22 12:45 Stool Sapovirus (PCR) Not Detected (NotDetected) 11/24/22 12:45 Stl P. shigelloides PCR Not Detected (NotDetected) 11/24/22 12:45 Stl Shigella/EIEC PCR Not Detected (NotDetected) 11/24/22 12:45 St Y.enterocolitica PCR Not Detected (NotDetected) 11/24/22 12:45 Stool Vibrio (PCR) Not Detected (NotDetected) 11/24/22 12:45 Stl Vibrio cholerae PCR Not Detected (NotDetected) 11/24/22 12:45 Stl Norovirus GI/GII PCR Not Detected (NotDetected) 11/24/22 12:45 SARS-CoV-2 (PCR) NEGATIVE (Negative) 11/24/22 08:24 Influenza Type A (PCR) Negative (Neg) 11/24/22 08:24 Influenza Type B (PCR) Negative (Neg) 11/24/22 08:24 RSV (RT-PCR) Negative (Neg) 11/24/22 08:[address] 11/24/22 13:31 CT OF THE HEAD WITHOUT CONTRAST CLINICAL HISTORY: Confusion. COMPARISON STUDY: Head CT May 01, 2022. CT DOSE: 614.27 mGy.cm TECHNIQUE: Helical axial images of the head were obtained without IV contrast. Automated exposure control was utilized for the study. A dose lowering technique was utilized adhering to the principles of ALARA. FINDINGS: No acute intracranial hemorrhage, midline shift or mass effect is present. White matter hypodensities are unchanged and favor small vessel disease. There is bilateral basal ganglia calcification. The ventricular system is unremarkable. The basal cisterns are patent. No extra-axial collections are present. There are no findings to suggest acute dural sinus thrombosis or acute territorial infarct. No significant calvarial abnormalities are present. Trace fluid within the left mastoid air cells. Apparent rotation/subluxation of C1 on C2 is partially imaged on this exam. This is probably positional. IMPRESSION: No acute intracranial findings. No change in appearance of the brain. ACT 112: Negative or not required by law. Electronically signed by: Matias Benson M.D. 11/24/2022 3:05 PM Videofluoroscopic Swallow 11/26/22 09:45 FL video swallow CLINICAL HISTORY: 67 years-old Male with r/o aspiration. Dysphasia with p ossible aspiration TECHNIQUE: Video fluoroscopic evaluation of swallowing was performed in the AP and lateral projections by the speech pathology staff. The patient is fed thin liquid, mildly thick and pudding consistencies. FLUOROSCOPY TIME: 1.5 minutes. COMPARISON STUDY: CT cervical spine 03/23/2022 FINDINGS: The patient is edentulous. There is normal hyoid excursion and epiglottic deflection. No significant penetration or aspiration identified. Swallowing function is within normal limits. IMPRESSION: 1. No aspiration identified. 2. Please see the speech pathologist report for detailed findings and recommendations. ACT 112: Negative or not required by law. Electronically signed by: Bradley Whalen M.D. 11/26/2022 10:37 AM Chest X-Ray 11/26/22 11:32 XR chest 1V portable CLINICAL HISTORY: Follow up on b/l lung infiltrates COMPARISON STUDY: Chest radiograph November 24, 2022. FINDINGS: Extensive bilateral airspace opacities have progressed since prior examination. Patient is rotated. There is no pneumothorax or pleural effusion. There is cardiomegaly. Multiple old bilateral rib fractures are incidentally noted. IMPRESSION: Progression of extensive bilateral airspace opacities. Multifocal pneumonia is favored however pulmonary edema could appear similar. ACT 112: Negative or not required by law. Electronically signed by: Matias Benson M.D. 11/26/2022 2:16 PM (1) Anemia Anemia type: unspecified type Qualified Code(s): D64.9 - Anemia, unspecified (2) Sepsis Acute respiratory failure type: with hypoxia Sepsis acute organ dysfunction status: with acute organ dysfunction Sepsis type: sepsis due to unspecified organism Severe sepsis acute organ dysfunction type: acute respiratory failure Severe sepsis shock status: unspecified Qualified Code(s): A41.9 - Sepsis, unspecified organism; R65.20 - Severe sepsis without septic shock; J96.01 - Acute respiratory failure with hypoxia (3) Pneumonia Laterality: left Lung location: unspecified part of lung Pneumonia type: due to unspecified organism Qualified Code(s): J18.9 - Pneumonia, unspecified organism
[2022-11-29] MEDS: levoFLOXacin/D5W 750 MG/150 ML BAG IV SCH (14:54)
[2022-11-29] MEDS: traZODone HCL 50 MG TAB PO SCH (20:43)
[2022-11-29] MEDS: ENOXAPARIN INJ 40 MG/0.4 ML SYR SQ SCH (20:47)
[2022-11-29] MEDS: SIMVASTATIN 40 MG TAB PO SCH (20:48)
[2022-11-30] MEDS: METOPROLOL TARTRATE 25 MG TAB PO SCH ×2 (00:36→08:41)
[2022-11-30 05:21] LABS: Basophils # (auto) 0.03 K/uL (0-0.2); Basophils % (auto) 0.8 %; Eosinophils % (auto) 2.7 %; Hematocrit (blood only) 30.3 % (42.0-52.0); Hemoglobin 9.4 g/dl (14.0-18.0); Immature Granulocytes # (auto) 0.02 K/uL (0.01-0.20); Immature Granulocytes % (auto) 0.5 %; Lymphocytes # (auto) 1.19 K/uL (1.2-3.4); Lymphocytes % (auto) 32.4 %; Mean Corpuscular Hemoglobin 31.9 pg (25.0-34.0); Mean Corpuscular Volume 102.7 fL (80.0-100.0); Mean Platelet Volume 10.5 fL (9.4-12.4); Monocytes # (auto) 0.36 K/uL (0.11-0.59); Monocytes % (auto) 9.8 %; Neutrophils # (auto) 1.97 K/uL (1.40-6.50); Neutrophils % (auto) 53.8 %; Platelet Count 188 K/uL (130-400); RDW Coefficient of Variation 13.5 % (11.5-14.5); RDW Standard Deviation 50.9 fL (36.4-46.3); Red Blood Count 2.95 M/uL (4.70-6.10); White Blood Count 3.67 K/ul (4.8-10.8)
[2022-11-30] MEDS: SODIUM CHLOR 7% 4 ML NEB NEB SCH (07:05)
[2022-11-30] MEDS: ALBUTEROL 0.083% NEBU SOLN 3 ML VIAL NEB SCH (07:05)
[2022-11-30 07:22] LABS: Bilirubin,Total 0.3 mg/dl (0.2-1.0); Calcium 9.9 mg/dl (8.5-10.1); Potassium 4.8 mmol/L (3.5-5.1)
[2022-11-30 07:28] LABS: Albumin Globulin Ratio 1.1 (0.9-2); BUN Creatinine Ratio 52.7 (10-20); Creatinine Clr Calc Pharmacy 73.5 ml/min; Est GFR (Non-African American) 86.3 ml/min; Globulin 2.7 gm/dl (2.5-4.0); Total Protein 5.7 gm/dl (6.0-8.3)
[2022-11-30] MEDS: MAGNESIUM OXIDE 400 MG TAB PO SCH (08:41)
[2022-11-30] MEDS: OXcarbazepine 150 MG TABLET PO SCH (08:41)
[2022-11-30] MEDS: guaiFENesin 600 MG TABCR PO SCH (08:41)
[2022-11-30] MEDS: METOCLOPRAMIDE HCL 5 MG TABLET PO SCH ×2 (08:41→12:25)
[2022-11-30] MEDS: risperiDONE 2 MG TABLET PO SCH ×2 (08:42→14:20)
[2022-11-30] MEDS: CHOLECALCIFEROL 1,000 UNITS 25 MCG TAB PO SCH (08:42)
[2022-11-30] MEDS: PENTOXIFYLLINE 400MG EXT REL TAB PO SCH (08:42)
[2022-11-30] MEDS: PANTOprazole 40 MG TAB PO SCH (08:42)
[2022-11-30] MEDS: ESCITALOPRAM OXALATE 20 MG TAB PO SCH (08:42)
[2022-11-30] MEDS: LORATADINE 10 MG TAB PO SCH (08:42)
[2022-11-30] MEDS: MULTIVITAMIN TAB PO SCH (08:42)
[2022-11-30] MEDS: SACCHAROMYCES BOULARDII 250 MG CAP PO SCH (08:42)
[2022-11-30] MEDS: UMECLIDINIUM BROMIDE 62.5MCG/BLISTER 7 PUFFS/INHALER INH SCH (08:43)
[2022-11-30] MEDS: clonazePAM 0.5 MG TAB PO SCH (08:47)
[2022-11-30] MEDS: INSULIN ASPART PER UNIT SC SCH ×2 (09:12→12:32)
[2022-11-30] MEDS: LANTUS PER UNIT CHARGE SQ SCH (09:12)
[2022-11-30] MEDS: ACETAMINOPHEN 325 MG TAB PO PRN (09:47)
--- NOTE | 2022-11-30 12:21 | Hospitalist Progress Note ---
Date of Service November 30, 2022 Assessment & Plan (1) Sepsis: (2) Acute hypoxemic respiratory failure: (3) Pneumonia: (4) Elevated troponin: (5) Pressure ulcer of coccygeal region, stage 3: (6) Diabetes mellitus, type 2: (7) Anemia: (8) Intellectual disability: Plan This is a 67-year-old male who has a significant past medical history of PAF, T2DM, COPD, TRINIDAD, chronic stasis dermatitis, intellectual disability and hyperlipidemia who presents to ED secondary to unresponsiveness and hypoxia. Patient meets for sepsis secondary to tachycardia and fever. In ED he received 2.7 L of IV fluid resuscitation with improvement in tachycardia. He received APAP for fever. Source: Right sided pneumonia He received broad-spectrum antibiotics with IV Unasyn. Blood cultures are pending He was hemodynamically stable at time of admission. Sepsis Acute hypoxic respiratory failure Right-sided pneumonia Normotensive, oxygen requirement down trended to room air. Pro-Ja elevated to 18.6 on admission; Pro-Ja repeated today; 0.70. Repeat x-ray shows persistent pneumonia. Plan; - ASSISTANT PROFESSOR OF PHYSICS eval ; assuring bedside swallow evaluation. VFSS doesn't show any signs of aspiration. Last dose of antibiotic today with Levaquin; will finish 7-day course. Continue airway clearance withduo nebs and hypertonic . Supplemental oxygen as needed. Elevated troponin Demand ischemia SVT No formal history of CAD documented Likely demand in setting of underlying sepsis, no reports of chest pain or ischemic EKG change High sensitive troponin down trended from 160 to 70s. Last echo December 2021 which revealed preserved EF 60 to 65%, mild concentric LVH, mild valvular aortic stenosis Echo shows EF of 60 to 65%; grade 1 diastolic function. On telemetry on 11/26; patient had intermittent episodes of SVT for short period. Metoprolol 12.5 twice daily added; frequency of SVT has improved. He has occasional PACs. T2DM Last A1c 6.2 on 08/16/2022; Lantus/NovoLog per protocol Pharmacy on board. Stage 3 coccyx wound following wound care turn and position q2, consult wound care continue Howard Intellectual disability resides at [facility] home wheel chair bound at baseline continue oxcarbazepine, trazodone, risperidone COPD no acute exac continue incruse Hx of PAF in NSR, not on any rate/rhythm agents not on OAC HLD continue statin PVD/PAD Chronic stasis dermatitis no signs of cellulitis continue pentoxifylline DVT ppx: SQ Lovenox Dispo: Tele PCP: Clari FULL CODE Dispo- From halfway. PT/OT ordered; patient will need rehab before he can go back to correction. Case management on board. Admission and Anticipated Discharge Date Admission Date: November 24, 2022 Subjective Patient seen and examined at bedside. He is sitting up on the bed; not in any distress. He continues to be on room air. Telemetry review shows normal sinus rhythm with occasional PAC. Frequency of SVT decreased. Review of Systems Review of Systems: All systems reviewed & are unremarkable except as noted in Subjective Physical Exam Physical Exam: Constitutional: Alert, oriented to self; not in any distress. Respiratory: coarse crackles heard in bilateral bases; more in right side. Improved compared to admission. Cardiovascular: RRR,1/6 mark, no edema but bilateral chronic venous stasis changes vessels: no JVD or carotid bruit Chest: normal inspection of chest Abdomen: normal bowel sounds, soft, nontender, no hepatosplenomegaly Musculoskeletal: no cyanosis or clubbing, unable to assess MSK due to pt unable to follow direction Skin: no rashes, warm and moderate normal turgor Neurologic: PERRL, EOMI, accommodation nl, no face palsy, no dysarthria CN's II-XI intact bilaterally and moves all extremities Psychiatric: A+O to self and place only, euthymic affect Lymphatic: no cervical or axillary lymphadenopathy : deferred Results & Data Results & Data ([facility]) Vital Signs (Past 12 Hours) Vital Signs Temp Pulse Pulse Resp BP Pulse Ox O2 Del Method 11/30/22 08:00 62 11/30/22 07:22 36.7 C 66 20 123/62 96 Room Air 11/30/22 07:05 67 18 90 Room Air 11/30/22 04:01 75 11/30/22 02:46 36.7 C 80 16 110/66 96 Room Air Laboratory Results Laboratory Results WBC 3.67 K/ul (4.8-10.8) L 11/30/22 04:27 RBC 2.95 M/uL (4.70-6.10) L 11/30/22 04:27 Hgb 9.4 g/dl (14.0-18.0) L 11/30/22 04:27 Hct 30.3 % (42.0-52.0) L 11/30/22 04:27 MCV 102.7 fL (80.0-100.0) H 11/30/22 04:27 MCH 31.9 pg (25.0-34.0) 11/30/22 04: MCHC 31.0 g/dL (32.0-36.0) L 11/30/22 04: RDW Std Deviation 50.9 fL (36.4-46.3) H 11/30/22 04: RDW Coeff of Drew 13.5 % (11.5-14.5) 11/30/22 04:27 Plt Count 188 K/uL (130-400) 11/30/22 04: MPV 10.5 fL (9.4-12.4) 11/30/22 04: Immature Gran % (Auto) 0.5 % 11/30/22 04: Neut % (Auto) 53.8 % 11/30/22 04:27 Lymph % (Auto) 32.4 % 11/30/22 04:27 Charles % (Auto) 9.8 % 11/30/22 04:27 Eos % (Auto) 2.7 % 11/30/22 04:27 Baso % (Auto) 0.8 % 11/30/22 04:27 Neut # (Auto) 1.97 K/uL (1.40-6.50) 11/30/22 04:27 Lymph # (Auto) 1.19 K/uL (1.2-3.4) L 11/30/22 04:27 Charles # (Auto) 0.36 K/uL (0.11-0.59) 11/30/22 04:27 Eos # (Auto) 0.10 K/uL (0-0.50) 11/30/22 04:27 Baso # (Auto) 0.03 K/uL (0-0.2) 11/30/22 04:27 Immature Gran # (Auto) 0.02 K/uL (0.01-0.20) 11/30/22 04:27 Toxic Vacuolation 1+ 11/24/22 08:26 Platelet Estimate Decreased (Normal) L 11/26/22 05:38 Rouleaux 1+ 11/26/22 05:38 Sodium 139 mmol/L (136-145) 11/30/22 04:27 Potassium 4.8 mmol/L (3.5-5.1) 11/30/22 04:27 Chloride 101 mmol/L (98-107) 11/30/22 04:27 Carbon Dioxide 35 mmol/L (21-32) H 11/30/22 04:27 Anion Gap 3 (3-11) 11/30/22 04:27 BUN 48 mg/dl (6-23) H 11/30/22 04:27 Creatinine 0.91 mg/dl (0.6-1.4) 11/30/22 04:27 Est Cr Clr Drug Dosing 73.5 ml/min 11/30/22 04:27 Est GFR ( Amer) 100.0 ml/min 11/30/22 04:27 Est GFR (Non-Af Amer) 86.3 ml/min 11/30/22 04:27 BUN/Creatinine Ratio 52.7 (10-20) H 11/30/22 04:27 Glucose 141 mg/dl (70-99(Fasting)) H 11/30/22 04:27 POC Glucose 275 mg/dl (70-99) H 11/30/22 08:15 Estimat Average Glucose 171 mg/dl 11/25/22 05:39 Hemoglobin A1c 7.6 % (4.5-5.6) H 11/25/22 05:39 Lactate 0.7 mmol/L (0.4-2.0) 11/24/22 08:26 Calcium 9.9 mg/dl (8.5-10.1) 11/30/22 04:27 Phosphorus 3.1 mg/dl (2.5-4.9) 11/25/22 05:39 Magnesium 1.9 mg/dl (1.7-2.4) 11/25/22 05:39 Total Bilirubin 0.3 mg/dl (0.2-1.0) 11/30/22 04:27 Direct Bilirubin 0.1 mg/dl (0-0.2) 11/24/22 08:26 AST 21 U/L (13-39) 11/30/22 04:27 ALT 32 U/L (7-52) 11/30/22 04:27 Alkaline Phosphatase 85 U/L (34-104) 11/30/22 04:27 Troponin I High Sens 74.3 pg/ml (0-20) H* D 11/24/22 20:32 Total Protein 5.7 gm/dl (6.0-8.3) L 11/30/22 04:27 Albumin 3.0 gm/dl (3.4-5.0) L 11/30/22 04:27 Globulin 2.7 gm/dl (2.5-4.0) 11/30/22 04:27 Albumin/Globulin Ratio 1.1 (0.9-2) 11/30/22 04:27 Procalcitonin 0.73 ng/ml (0-0.5) H 11/30/22 04:27 Urine Color Dark Yellow 11/24/22 08:24 Urine Appearance Clear (Clear) 11/24/22 08:24 Urine pH 5.0 (4.5-7.5) 11/24/22 08:24 Ur Specific Cranberry 1.024 (1.000-1.030) 11/24/22 08:24 Urine Protein Trace (Negative) H 11/24/22 08:24 Urine Glucose (UA) Negative (Negative) 11/24/22 08:24 Urine Ketones 1+ (Negative) H 11/24/22 08:24 Urine Blood Negative (Negative) 11/24/22 08:24 Urine Nitrite Negative (Negative) 11/24/22 08:24 Urine Bilirubin Negative (Negative) 11/24/22 08:24 Urine Urobilinogen Negative (Negative) 11/24/22 08:24 Ur Leukocyte Esterase Negative (Negative) 11/24/22 08:24 Urine WBC (Auto) 1-5 /hpf (0-5) 11/24/22 08:24 Urine RBC (Auto) 0-4 /hpf (0-4) 11/24/22 08:24 U Hyaline Cast (Auto) 1-5 /lpf (0-5) 11/24/22 08:24 U Epithel Cells (Auto) 5-10 /lpf (0-5) H 11/24/22 08:24 Urine Bacteria (Auto) Negative (Negative) 11/24/22 08:24 Nasal Screen MRSA (PCR) Negative (Negative) 11/25/22 09:42 Stl C. cayetanensis PCR Not Detected (NotDetected) 11/24/22 12:45 Stool Rotavirus A PCR Not Detected (NotDetected) 11/24/22 12:45 Stl Adenov F 40/41 PCR Not Detected (NotDetected) 11/24/22 12:45 Stool Astrovirus (PCR) Not Detected (NotDetected) 11/24/22 12:45 Stool Campylobacter PCR Not Detected (NotDetected) 11/24/22 12:45 Stl C. diff Tox B Gene Positive Cdiff Gene (Neg) H 11/24/22 12:45 Stl C.difficile Tox A&B Negative Cdiff Toxin (Negative) 11/24/22 12:45 Stool Cryptosporidium PCR Not Detected (NotDetected) 11/24/22 12:45 Stl E.coli Shiga Tox PCR Not Detected (NotDetected) 11/24/22 12:45 Stl Enterotoxigenic E PCR Not Detected (NotDetected) 11/24/22 12:45 Stool EPEC (PCR) Not Detected (NotDetected) 11/24/22 12:45 Stool EAEC (PCR) Not Detected (NotDetected) 11/24/22 12:45 Stl E. histolytica PCR Not Detected (NotDetected) 11/24/22 12:45 Stool Giardia Lamblia PCR Not Detected (NotDetected) 11/24/22 12:45 Stool Salmonella PCR Not Detected (NotDetected) 11/24/22 12:45 Stool Sapovirus (PCR) Not Detected (NotDetected) 11/24/22 12:45 Stl P. shigelloides PCR Not Detected (NotDetected) 11/24/22 12:45 Stl Shigella/EIEC PCR Not Detected (NotDetected) 11/24/22 12:45 St Y.enterocolitica PCR Not Detected (NotDetected) 11/24/22 12:45 Stool Vibrio (PCR) Not Detected (NotDetected) 11/24/22 12:45 Stl Vibrio cholerae PCR Not Detected (NotDetected) 11/24/22 12:45 Stl Norovirus GI/GII PCR Not Detected (NotDetected) 11/24/22 12:45 SARS-CoV-2 (PCR) NEGATIVE (Negative) 11/24/22 08:24 Influenza Type A (PCR) Negative (Neg) 11/24/22 08:24 Influenza Type B (PCR) Negative (Neg) 11/24/22 08:24 RSV (RT-PCR) Negative (Neg) 11/24/22 08:[address] 11/24/22 13:31 CT OF THE HEAD WITHOUT CONTRAST CLINICAL HISTORY: Confusion. COMPARISON STUDY: Head CT May 01, 2022. CT DOSE: 614.27 mGy.cm TECHNIQUE: Helical axial images of the head were obtained without IV contrast. Automated exposure control was utilized for the study. A dose lowering technique was utilized adhering to the principles of ALARA. FINDINGS: No acute intracranial hemorrhage, midline shift or mass effect is present. White matter hypodensities are unchanged and favor small vessel disease. There is bilateral basal ganglia calcification. The ventricular system is unremarkable. The basal cisterns are patent. No extra-axial collections are present. There are no findings to suggest acute dural sinus thrombosis or acute territorial infarct. No significant calvarial abnormalities are present. Trace fluid within the left mastoid air cells. Apparent rotation/subluxation of C1 on C2 is partially imaged on this exam. This is probably positional. IMPRESSION: No acute intracranial findings. No change in appearance of the brain. ACT 112: Negative or not required by law. Electronically signed by: Matias Benson M.D. 11/24/2022 3:05 PM Videofluoroscopic Swallow 11/26/22 09:45 FL video swallow CLINICAL HISTORY: 67 years-old Male with r/o aspiration. Dysphasia with possible aspiration TECHNIQUE: Video fluoroscopic evaluation of swallowing was performed in the AP and lateral projections by the speech pathology staff. The patient is fed thin liquid, mildly thick and pudding consistencies. FLUOROSCOPY TIME: 1.5 minutes. COMPARISON STUDY: CT cervical spine 03/23/2022 FINDINGS: The patient is edentulous. There is normal hyoid excursion and epiglottic deflection. No significant penetration or aspiration identified. Swallowing function is within normal limits. IMPRESSION: 1. No aspiration identified. 2. Please see the speech pathologist report for detailed findings and recommendations. ACT 112: Negative or not required by law. Electronically signed by: Bradley Whalen M.D. 11/26/2022 10:37 AM Chest X-Ray 01/31/23 11:32 XR chest 1V portable CLINICAL HISTORY: Follow up on b/l lung infiltrates COMPARISON STUDY: Chest radiograph November 24, 2022. FINDINGS: Extensive bilateral airspace opacities have progressed since prior examination. Patient is rotated. There is no pneumothorax or pleural effusion. There is cardiomegaly. Multiple old bilateral rib fractures are incidentally noted. IMPRESSION: Progression of extensive bilateral airspace opacities. Multifocal pneumonia is favored however pulmonary edema could appear similar. ACT 112: Negative or not required by law. Electronically signed by: Matias Benson M.D. 11/26/2022 2:16 PM (1) Sepsis Acute respiratory failure type: with hypoxia Sepsis acute organ dysfunction status: with acute organ dysfunction Sepsis type: sepsis due to unspecified organism Severe sepsis acute organ dysfunction type: acute respiratory failure Severe sepsis shock status: unspecified Qualified Code(s): A41.9 - Sepsis, unspecified organism; R65.20 - Severe sepsis without septic shock; J96.01 - Acute respiratory failure with hypoxia (2) Pneumonia Laterality: left Lung location: unspecified part of lung Pneumonia type: due to unspecified organism Qualified Code(s): J18.9 - Pneumonia, unspecified organism (3) Anemia Anemia type: unspecified type Qualified Code(s): D64.9 - Anemia, unspecified
[2022-11-30] MEDS ORDERED: levoFLOXacin/D5W 750 MG/150 ML BAG IV ONE (13:00)
--- NOTE | 2022-11-30 13:53 | Discharge Summary ---
Date of Service November 30, 2022 Admission HPI Per Admitting Provider This is a 67-year-old male who has a significant past medical history of PAF, T2DM, COPD, TRINIDAD, chronic stasis dermatitis, intellectual disability and hyperlipidemia who presents to ED secondary to unresponsiveness and hypoxia. Patient has underlying intellectual ability and lives at [facility]. Per staff at [facility] they noted a decline in patient over the last 2 days. He has had a wet cough for the last 2 days and overall just moving more slow. They also report a decreased appetite over the last 2 days. He did have elevated temperature at 100.2 but denied any nausea, vomiting or diarrhea. At baseline patient is usually alert and happy. His blood sugars have been running in the 200s. ROS unreliable from patient. He is alert and somewhat able to answer questions but very difficult to understand given underlying electro disability. He is in a wheelchair at baseline. Patient presented via EMS and was hypoxic in the 80s requiring 3 L of oxygen supplementation. He was also febrile on arr ival. He did meet sepsis criteria secondary to fever and tachycardia. According to chart he received 2700 mL of IV fluid in ED. His tachycardia did resolve. He did still remain febrile at 38.8. His WBC was WNL. His hemoglobin hematocrit were stable from baseline at 10.1 and 31.0. His BMP and LFTs are currently pending. He did have an elevated troponin at 163.8. His procalcitonin was elevated at 9.29. Urinalysis was negative for infection. Chest x-ray concerning for right-sided pneumonia. Blood cultures were sent. He did receive IV Unasyn in ED for concern for aspiration pneumonia. Per staff at [facility] he is a aspiration risk. Admission Exam Per Admitting Provider Constitutional: WD/WN, male, appears older than stated age, vitals as above, NAD, sitting up in bed, alert and arousable to verbal stimulation, able to respond but difficult to understand given electrical stability Head: Normocephalic, Atraumatic Eyes: PERRL, conjunctivae normal, anicteric sclerae ENMT: external ear and nose normal, oropharynx normal very dry mucous membranes with dried sputum on lips Neck: trachea midline, no thyromegaly normal visual inspection Respiratory: normal respiratory effort, lungs clear to auscultation, no wheeze, rales, + rhonchi RLL. Normal insp/exp effort, no accessory muscle use Cardiovascular: RRR,1/6 mark, no edema but bilateral chronic venous stasis changes vessels: no JVD or carotid bruit Chest: normal inspection of chest Abdomen: normal bowel sounds, soft, nontender, no hepatosplenomegaly Musculoskeletal: no cyanosis or clubbing, unable to assess MSK due to pt unable to follow direction Skin: no rashes, warm and moderate normal turgor Neurologic: PERRL, EOMI, accommodation nl, no face palsy, no dysarthria CN's II-XI intact bilaterally and moves all extremities Psychiatric: A+O to self and place only, euthymic affect Lymphatic: no cervical or axillary lymphadenopathy : deferred Principal Diagnosis Sepsis Acute hypoxic respiratory failure Right-sided pneumonia Discharge Exam Constitutional: Alert, oriented to self; not in any distress. Respiratory: coarse crackles heard in bilateral bases; more in right side. Improved compared to admission. Cardiovascular: RRR,1/6 mark, no edema but bilateral chronic venous stasis changes vessels: no JVD or carotid bruit Chest: normal inspection of chest Abdomen: normal bowel sounds, soft, nontender, no hepatosplenomegaly Musculoskeletal: no cyanosis or clubbing, unable to assess MSK due to pt unable to follow direction Skin: no rashes, warm and moderate normal turgor Neurologic: PERRL, EOMI, accommodation nl, no face palsy, no dysarthria CN's II-XI intact bilaterally and moves all extremities Psychiatric: A+O to self and place only, euthymic affect Lymphatic: no cervical or axillary lymphadenopathy : deferred Discharge Data Allergies Allergy/AdvReac Type Severity Reaction Status Date / Time lactose Allergy Intermediate GI SYMPTOMS Verified 11/24/22 09:50 aspirin Allergy Unknown UNKNOWN Verified 11/24/22 09:50 REACTION cephalexin Allergy Unknown UNKNOWN Verified 11/24/22 09:50 REACTION Cephalosporins Allergy Unknown UNKNOWN Verified 11/24/22 09:50 REACTION Corticosteroids Allergy Unknown UNKNOWN Verified 11/24/22 09:50 (Glucocorticoids) REACTION methylprednisolone Allergy Unknown UNKNOWN Verified 11/24/22 09:50 REACTION shellfish derived Allergy Unknown UNKNOWN Verified 11/24/22 09:50 REACTION Consultations 11/24/22 09:13 ED Decision to Admit Stat Ordered Studies 11/24/22 13:[address] [CT head/brain wo con] Routine 01/31/23 09:45 FL video swallow Routine Hospital Course (1) Sepsis: (2) Acute hypoxemic respiratory failure: (3) Pneumonia: (4) Elevated troponin: (5) Pressure ulcer of coccygeal region, stage 3: (6) Diabetes mellitus, type 2: (7) Anemia: (8) Intellectual disability: Plan This is a 67-year-old male who has a significant past medical history of PAF, T2DM, COPD, TRINIDAD, chronic stasis dermatitis, intellectual disability, wheelchair- bound and hyperlipidemia who presents to ED secondary to unresponsiveness and hypoxia. On presentation to the ED, patient was tachycardic and febrile. In the ED, he was given IV fluid resuscitation. Chest x-ray showed bilateral pneumonia more on the right side. Pro-Ja was elevated. Patient was placed on oxygen by nasal cannula and admitted to telemetry floor. Patient was initially placed on Unasyn. He was treated with duo nebs and hypertonic saline for airway clearance. Patient's oxygenation improved throughout the course of the hospitalization; was saturating well in room air. STOCK SPECULATOR evaluation was done which was reassuring. Video swallow evaluation was done which did not show any signs of aspiration. Patient was treated with 7 days of Unasyn and Levaquin total. Patient had occasional run of SVT on telemetry. Echocardiogram was done which showed EF of 60 to 65% with grade 1 diastolic dysfunction. Metoprolol 12.5 twice daily was added. Patient's SVT frequency improved. He was mostly sinus rhythm with occasional PACs for the remainder of the hospitalization. Wound care evaluation was done; wound care instruction placed in the discharge instructions. PT OT evaluation was done; recommending inpatient rehab. Patient will need to be in rehab prior to going to senior care. Patient will need follow-up with his primary care doctor after discharge from rehab. Total Time Total Time Spent Total Time Spent (In Minutes): 45 Total Time Includes: Examination of the Patient, Discharge Planning, Medication Reconciliation, Communication With Other Providers and Other Discharge Plan Discharge Items Patient Disposition: Transfer Inpatient Rehab Fac Reason For Visit: HYPOXIA, ASPIRATION PNEUMONIA Discharge Diagnosis: (1) Sepsis: (2) Acute hypoxemic respiratory failure: (3) Pneumonia: (4) Elevated troponin Activity: Resume your previous activity Non-emergency contact: Primary Care Provider Call non-emergency contact if: you have any medication questions and your symptoms worsen Follow-up/Referrals: Andrew Montague MD [Primary Care Provider] - ( ) Diet: Carb Consistent or DM2 Diet Texture: Pureed (blended smooth) Addtl Attending Provider Instructions: Patient is a 67-year-old male who was admitted with pneumonia. During the hospitalization he completed 7-day course of antibiotic. He had brief episodes of supraventricular tachycardia for which he is started on metoprolol 12.5 twice daily. All other medication are continued as before. Please follow-up following wound care instructions; 1) coccyx woundclean with saline. Cover with Aquacel and secured with OPTifoam. Change every other day and as needed for drainage or swelling 2) scrotumapply Yennifer antifungal cream after cleaning Pending Studies at Discharge: No Stand-Alone Forms: My [facility] Skilled Items Patient informed of condition?: Yes DNR: No Discharge Level of Care: Acute rehab Communicable Disease: No Discharge Prognosis: Stable Lines: None Urinary Catheter: No Medications and DC Order Prescriptions: New metoprolol tartrate 25 mg Tablet 12.5 mg PO BID Qty: 60 0RF Continued oxcarbazepine 150 mg tablet 150 mg PO BID Systane Gel 0.3 % gel 1 drp ophthalmic (eye) QID PRN (Reason: Dry Eyes) trazodone 50 mg Tablet 50 mg PO HS Rx Instructions: take at 1999. loperamide [Imodium A-D] 2 mg Tablet 2 mg PO UD PRN (Reason: Diarrhea) Rx Instructions: Chewable simvastatin [Zocor] 40 mg Tablet 40 mg PO HS metoclopramide HCl [Reglan] 5 mg Tablet 5 mg PO ACHS Rx Instructions: take 4X daily with meals and at bedtime. Friday Through Friday albuterol sulfate [ProAir HFA] 90 mcg/actuation Hfa Aerosol Inhaler 2 puff INHALATION Q4H PRN (Reason: Shortness Of Breath) cholecalciferol (vitamin D3) [Vitamin D3] 1,000 unit Capsule 1,000 unit PO QAM Januvia 100 mg tablet 100 mg PO QAM omeprazole 20 mg Tablet,Delayed Release (Dr/Ec) 20 mg PO QAM guaifenesin [Mucinex] 600 mg Tablet Extended Release 12hr 600 mg PO Q12H magnesium oxide 400 mg magnesium Tablet 400 mg PO BID pentoxifylline 400 mg tablet extended release 400 mg PO TID Rx Instructions: Daily at 0800, 1600, & 2000 loratadine [Claritin] 10 mg Tablet 10 mg PO QAM Incruse Ellipta 62.5 mcg/actuation blister with device 1 inh INHALATION QAM multivitamin [Daily-Shaka] Tablet 1 tab PO QAM Qty: 0 clonazepam 0.5 mg Tablet 0.5 mg PO BID alum-mag hydroxide-simeth 200-200-20 mg/5 mL Suspension 30 ml PO QPM escitalopram oxalate 20 mg tablet 20 mg PO QAM metformin 500 mg tablet extended release 24 hr 1,000 mg PO BIDM glimepiride 1 mg tablet 1 mg PO DAILY gabapentin 300 mg capsule 300 mg PO TID risperidone 2 mg tablet 2 mg PO TID acetaminophen [Tylenol] 325 mg tablet 650 mg PO QID PRN (Reason: pain) Qty: 0 0RF Discharge Orders: Discharge Order (Routine); Ordered 11/30/22 Ordered By: Joe Ingram/Other Patient Handouts: Managing Type 2 Diabetes Admission Data Admit Date/Time: 11/24/22 09:16 Attending Provider: Joe Lopez Admit Provider: Stefany Alcantar Primary Care Provider: Andrew Montague Other Providers: Stefany Alcantar ; [facility]
== END 2022-11-30 15:25 | DRG 871 ==
LOC: ED 07:59 → SUATTDRO 09:16 → 4W 09:16

== ENCOUNTER 2022-12-14 07:14 | Inpatient (IN) ==
--- NOTE | 2022-12-14 07:23 | Emergency Department Note ---
History of Present Illness General Chief complaint: Shortness of Breath/Dyspnea Stated complaint: HYPOXIA, ILLNESS Time Seen by Provider: 12/14/22 07:16 History of Present Illness Provider complaint: Hypoxia confusion 59-year-old male with intellectual disability from skills snf presents emergency department for altered mental status and low oxygen level. Home Medications Medication Instructions Recorded Confirmed Type albuterol sulfate 90 mcg/actuation 2 puff inhalation Q4H PRN 12/23/18 12/14/22 History aerosol inhaler (ProAir HFA) Shortness Of Breath cholecalciferol (vitamin D3) 25 1,000 unit PO QAM 12/23/18 12/14/22 History mcg (1,000 unit) capsule (Vitamin D3) loperamide 2 mg tablet (Imodium 2 mg PO UD PRN Diarrhea 12/23/18 12/14/22 History A-D) magnesium oxide 200 mg PO BID 12/23/18 12/14/22 History metoclopramide HCl 5 mg tablet 5 mg PO ACHS 12/23/18 12/14/22 History (Reglan) omeprazole 20 mg tablet,delayed 20 mg PO QAM 12/23/18 12/14/22 History release simvastatin 40 mg tablet (Zocor) 40 mg PO HS 12/23/18 12/14/22 History sitagliptin phosphate 100 mg 100 mg PO QAM 12/23/18 12/14/22 History tablet (Januvia) trazodone 50 mg tablet 50 mg PO HS MOOD 12/23/18 12/14/22 History loratadine 10 mg tablet (Claritin) 10 mg PO QAM 04/03/20 12/14/22 History pentoxifylline 400 mg 400 mg PO TID 04/03/20 12/14/22 History tablet,extended release umeclidinium 62.5 mcg/actuation 1 inh inhalation QAM 03/02/21 12/14/22 History blister powder for inhalation (Incruse Ellipta) risperidone 2 mg tablet 2 mg PO TID 03/11/21 12/14/22 History aluminum-mag hydroxide-simethicone 30 ml PO QPM 11/23/21 12/14/22 History 200 mg-200 mg-20 mg/5 mL oral susp clonazepam 0.5 mg tablet 0.5 mg PO BID anxiety 11/23/21 12/14/22 History multivitamin (Daily-Shaka tablet) 1 tab PO QAM ##0 11/23/21 12/14/22 History escitalopram oxalate 20 mg tablet 20 mg PO QAM 01/03/22 12/14/22 History metformin 500 mg tablet,extended 1,000 mg PO BIDM 01/03/22 12/14/22 History release 24 hr oxcarbazepine 150 mg tablet 150 mg PO BID 04/08/22 12/14/22 History acetaminophen 325 mg tablet 650 mg PO QID PRN pain #0 tabs 05/03/22 12/14/22 Rx (Tylenol) gabapentin 300 mg capsule 300 mg PO TID 11/24/22 12/14/22 History glimepiride 1 mg tablet 1 mg PO DAILY 11/24/22 12/14/22 History metoprolol tartrate 25 mg tablet 12.5 mg PO BID #60 tabs 11/30/22 12/14/22 Rx Allergies Allergy/AdvReac Type Severity Reaction Status Date / Time lactose Allergy Intermediate GI SYMPTOMS Verified 11/24/22 09:50 aspirin Allergy Unknown UNKNOWN Verified 11/24/22 09:50 REACTION cephalexin Allergy Unknown UNKNOWN Verified 11/24/22 09:50 REACTION Cephalosporins Allergy Unknown UNKNOWN Verified 11/24/22 09:50 REACTION Corticosteroids Allergy Unknown UNKNOWN Verified 11/24/22 09:50 (Glucocorticoids) REACTION methylprednisolone Allergy Unknown UNKNOWN Verified 11/24/22 09:50 REACTION shellfish derived Allergy Unknown UNKNOWN Verified 11/24/22 09:50 REACTION Past Med/Surg History Medical History Anxiety Aortic stenosis Mild per 09/2021 ECHO Asthma CAP (community acquired pneumonia) Cerebral palsy Chronic obstructive pulmonary disease Well controlled > hasnt used res inh for 2 yrs Depression Diabetes mellitus, type 2 DJD (degenerative joint disease) Femoral condyle fracture GERD (gastroesophageal reflux disease) History of COVID-19 Tested positive 09/21/21 [facility] ([facility] Sinus congestion only. no hospitalization. No current problems. Hospital-acquired pneumonia Hyperlipidemia Hypotension Intellectual disability Lives at Located Within [facility] facility Neuropathy [place] (obstructive sleep apnea) Per records Osteoporosis Peroneal palsy Pica Presence of IVC filter Placed in 1997 per records PVD (peripheral vascular disease) Scoliosis Tibia fracture TMJ (temporomandibular joint disorder) Venous insufficiency Surgical History History of cholecystectomy History of colonoscopy History of tooth extraction S/P cataract surgery Left and Right Family History Father Coronary heart disease Social History Smoking Status: Former smoker packs per day: 30; Second Hand Exposure: No; Hx Alcohol Use: No Hx Substance Use: No Preferred Language: Kazakh Communication Ability: Impaired Communication Ability Comment: MR [facility] SKILL[facility] Communication Tools: Other Visual Impairment: No Limitations Hearing Ability: Use of Hearing Aid Regional Psychiatric Director Required: No Beliefs That Will Affect Care: None marital status: Single marital status details: Skills Current Living Situation: Personal Care Facility Current Living Situation Comment: Skilled in snf current occupational status: disabled How many Children do You have: 0 Other Information That Helps Us Care for You: No Feels Safe at Home: Yes Safety Concerns: Feels Safe At This Time caffeine: No Assistive Devices: Wheelchair Physical Exam Vital Signs Vital Signs - 24 hr 12/14/22 07:17 12/14/22 07:17 12/14/22 07:20 Temperature 37.7 C H Temperature Source Oral Pulse Rate 98 H Pulse Rate [Apical] Pulse Rhythm [Apical] Respiratory Rate 18 Respiratory Effort / Characteristics Non-Labored Respiratory Depth Normal Blood Pressure 99/46 L Blood Pressure [Left Arm] Blood Pressure Mean 63 Blood Pressure Mean [Left Arm] Pulse Oximetry 86 L 95 Oxygen Delivery Method Room Air Room Air Nasal Cannula Oxygen Flow Rate 3 Sepsis Recent Fever Within 48 Hours Yes Sepsis New/Unexplained Change in Mental Status No Sepsis Action Taken by Nursing No Action Required 12/14/22 07:45 12/14/22 08:02 12/14/22 08:06 Temperature Temperature Source Pulse Rate 77 Pulse Rate [Apical] 80 79 Pulse Rhythm [Apical] Respiratory Rate 16 16 Respiratory Effort / Characteristics Non-Labored Respiratory Depth Normal Blood Pressure Blood Pressure [Left Arm] 110/49 L 102/52 L Blood Pressure Mean Blood Pressure Mean [Left Arm] 69 68 Pulse Oximetry 96 97 Oxygen Delivery Method Nasal Cannula Nasal Cannula Oxygen Flow Rate 3 3 Sepsis Recent Fever Within 48 Hours Sepsis New/Unexplained Change in Mental Status Sepsis Action Taken by Nursing 12/14/22 09:00 Temperature Temperature Source Pulse Rate Pulse Rate [Apical] 80 Pulse Rhythm [Apical] Regular Respiratory Rate 16 Respiratory Effort / Characteristics Non-Labored Respiratory Depth Normal Blood Pressure Blood Pressure [Left Arm] 96/51 L Blood Pressure Mean Blood Pressure Mean [Left Arm] 66 Pulse Oximetry 98 Oxygen Delivery Method Nasal Cannula Oxygen Flow Rate 2 Sepsis Recent Fever Within 48 Hours Sepsis New/Unexplained Change in Mental Status Sepsis Action Taken by Nursing Physical Exam HENT: Exam performed. - Head: Normocephalic and atraumatic. EYES: Conjunctivae and EOM are normal. Right eye exhibits no discharge. Left eye exhibits no discharge. No scleral icterus. NECK: Normal range of motion. Neck supple. No JVD present. CV: Normal rate, regular rhythm, normal heart sounds and intact distal pulses. There is no peripheral edema. Palpable radial pulses bue. PULM/CHEST: Rhonchi bilaterally and rales at the bases bilaterally. ABD: The abdomen is soft. There is no tenderness. NEURO: Motor and sensation grossly intact. SKIN: Skin is warm and dry. He is not diaphoretic. Stage II sacral decubitus ulcer that is clean no surrounding erythema or discharge. Course Course 07: The patient was evaluated in room B4. A complete history and physical exam was performed Cardiac monitoring: An order was placed for continuous cardiac monitoring. The monitor shows a rate of 100 with sinus rhythm interpreted by me. Patient was found to be hypoxic on room air at 86%. Supplemental oxygen was applied via nasal cannula which improved the patient's oxygen saturation 0930: Vital signs stable on supplemental oxygen. Labs show white blood cell count 5.39 hemoglobin 10.8 VBG within normal limits. Patient's magnesium is 0.9. Magnesium repletion was started in the emergency department. Patient's BNP is elevated at 180. Troponin negative. Chest x-ray reviewed by me showed cardiomegaly with cephalization. Chest x-ray formal read showed pulmonary edema and mild left greater than right mid to lower lung zone dominant airspace opacities. Given that the patient was recently admitted for pneumonia and does live in assisted living facility the patient will be treated with antibiotics for HCAP with Zosyn and vancomycin ordered for the patient. Discussed the case with [facility] hospitalist Brittney who stated to admit to Dr. Camilo and they will determine diuretics for the patient Administered Medications Escitalopram Oxalate (Escitalopram Oxalate 20 Mg Tab) [facility] Stop: 01/13/23 11:06 Last Admin: 12/14/22 12:12 Dose: 20 mg Documented By: IRIS Magnesium Sulfate/Dextrose (Magnesium Sulfate / D5w) 1 gm in 100 mls @ 50 mls/h r IV Q2H [facility] Stop: 12/14/22 14:14 Last Admin: 12/14/22 12:19 Dose: 50 mls/hr Documented By: Infusion: 12/14/22 12:18 Dose: 0 mls/hr Documented By: Admin: 12/14/22 11:14 Dose: 50 mls/hr Documented By: IRIS Insulin Aspart (Insulin Aspart Per Unit) 0 units SC [facility] Stop: 01/13/23 11:29 Last Admin: 12/14/22 12:15 Dose: 7 units Documented By: IRIS Co-signed By: IVETTE Loratadine (Loratadine 10 Mg Tab) 10 mg PO [facility] Stop: 01/13/23 11:06 Last Admin: 12/14/22 12:12 Dose: 10 mg Documented By: IRIS Metoclopramide HCl (Metoclopramide Hcl 5 Mg Tablet) 5 mg PO [facility] Stop: 01/13/23 11:29 Last Admin: 12/14/22 12:15 Dose: 5 mg Documented By: IRIS Oxcarbazepine (Oxcarbazepine 150 Mg Tablet) 150 mg PO BID [facility] Stop: 01/13/23 11:06 Last Admin: 12/14/22 12:12 Dose: 150 mg Documented By: IRIS Pantoprazole Sodium (Pantoprazole 40 Mg Tab) 40 mg PO [facility] Stop: 01/13/23 11:06 Last Admin: 12/14/22 12:11 Dose: 40 mg Documented By: IRIS Umeclidinium [place] (Umeclidinium [place] 62.5mcg/Blister 7 Puffs/Inhaler) 1 puffs INH [facility] Stop: 01/13/23 11:06 Last Admin: 12/14/22 12:12 Dose: 1 puffs Documented By: IRIS Discontinued Medications Sodium Chloride (Nss 1000ml) 1,000 mls @ 999 mls/hr IV .Q1H1M [facility] Stop: 12/14/22 08:30 Last Infusion: 12/14/22 08:37 Dose: 0 mls/hr Documented By: Admin: 12/14/22 07:32 Dose: 999 mls/hr Documented By: TOM Magnesium Sulfate/Dextrose (Magnesium Sulfate / D5w) 1 gm in 100 mls @ 100 mls/hr IV Q1H [facility] Stop: 12/14/22 10:29 Last Infusion: 12/14/22 12:20 Dose: 0 mls/hr Documented By: Admin: 12/14/22 11:14 Dose: 100 mls/hr Documented By: Infusion: 12/14/22 11:12 Dose: 0 mls/hr Documented By: Admin: 12/14/22 09:38 Dose: 100 mls/hr Documented By: TOM Piperacillin Sod/Tazobactam Sod (Zosyn) 4.5 gm in 120 mls @ 240 mls/hr IV NOW ONE Stop: 12/14/22 09:58 Last Infusion: 12/14/22 10:09 Dose: 0 mls/hr Documented By: Admin: 12/14/22 09:38 Dose: 240 mls/hr Documented By: TOM Vancomycin HCl 1,500 mg/ (Sodium Chloride) 530 mls @ 200 mls/hr IV NOW ONE Stop: 12/14/22 12:07 Last Admin: 12/14/22 10:21 Dose: 200 mls/hr Documented By: TOM Medical Decision Making Medical Records Attestation: I reviewed the patient's medical records. External medical records reviewed. Patient was admitted to this facility from November 24 to November 30, 2022. He was admitted for sepsis and aspiration pneumonia. Patient presented with similar chief complaint and appearance hypoxic and febrile. While admitted to the hospital patient had several runs of SVT. Patient was started on metoprolol to control his SVT and was treated with Unasyn for his aspiration pneumonia. Patient had an echo done which showed a 60 to 65% ejection fraction and mild aortic stenosis. Patient also has a coccyx wound. Patient was discharged to [facility] External medical records from [facility] were reviewed and the patient was admitted from November 30 to December 06, 2022 at [facility] and received rehab and then was discharged back to halfway home. Laboratory Data Attestation: I reviewed the patient's lab results. 12/14/22 07:26 12/14/22 07:26 Lab Results 02/12/14/22 12/14/22 Range/Units 07:26 07:26 07:26 WBC 5.39 (4.8-10.8) K/ul RBC 3.36 L (4.70-6.10) M/uL Hgb 10.8 L (14.0-18.0) g/dl Hct 33.8 L (42.0-52.0) % MCV 100.6 H (80.0-100.0) fL MCH 32.1 (25.0-34.0) pg MCHC 32.0 (32.0-36.0) g/dL RDW Std Deviation 50.9 H (36.4-46.3) fL RDW Coeff of Drew 13.9 (11.5-14.5) % Plt Count 163 (130-400) K/uL MPV 10.1 (9.4-12.4) fL Immature Gran % (Auto) 0.2 % Neut % (Auto) 87.7 % Lymph % (Auto) 5.0 % Chase % (Auto) 6.5 % Eos % (Auto) 0.2 % Baso % (Auto) 0.4 % Neut # (Auto) 4.73 (1.40-6.50) K/uL Lymph # (Auto) 0.27 L (1.2-3.4) K/uL Chase # (Auto) 0.35 (0.11-0.59) K/uL Eos # (Auto) 0.01 (0-0.50) K/uL Baso # (Auto) 0.02 (0-0.2) K/uL Immature Gran # (Auto) 0.01 (0.01-0.20) K/uL PT 10.8 (9.0-12.0) Seconds INR 1.0 (0.9-1.1) APTT 24.7 (21.0-31.0) Seconds PTT Ratio 0.9 VBG pH (7.36-7.41) VBG pCO2 (38-50) mmHg VBG pO2 mmHg VBG HCO3 mmol/L VBG O2 Saturation % VBG Base Excess mEq/L Sodium 134 L (136-145) mmol/L Potassium 4.4 (3.5-5.1) mmol/L Chloride 98 (98-107) mmol/L Carbon Dioxide 33 H (21-32) mmol/L Anion Gap 3 (3-11) BUN 21 (6-23) mg/dl Creatinine 0.67 (0.6-1.4) mg/dl Est Cr Clr Drug Dosing Not Reportable Est GFR ( Amer) 114.4 ml/min Est GFR (Non-Af Amer) 98.7 ml/min BUN/Creatinine Ratio 31.3 H (10-20) Glucose 279 H (70-99(Fasting)) mg/dl Calcium 9.6 (8.5-10.1) mg/dl Magnesium 0.9 L* (1.7-2.4) mg/dl Total Bilirubin 0.4 (0.2-1.0) mg/dl Direct Bilirubin 0.1 (0-0.2) mg/dl AST 15 (13-39) U/L ALT 15 (7-52) U/L Alkaline Phosphatase 77 (34-104) U/L Troponin I High Sens 19.0 (0-20) pg/ml B-Natriuretic Peptide (0-100) pg/ml Total Protein 6.4 (6.0-8.3) gm/dl Albumin 3.8 (3.4-5.0) gm/dl Procalcitonin (0-0.5) ng/ml Urine Color Urine Appearance (Clear) Urine pH (4.5-7.5) Ur Specific [place] (1.000-1.030) Urine Protein (Negative) Urine Glucose (UA) (Negative) Urine Ketones (Negative) Urine Blood (Negative) Urine Nitrite (Negative) Urine Bilirubin (Negative) Urine Urobilinogen (Negative) Ur Leukocyte Esterase (Negative) SARS-CoV-2 (PCR) (Negative) Influenza Type A (PCR) (Neg) Influenza Type B (PCR) (Neg) RSV (RT-PCR) (Neg) 12/14/22 12/14/22 12/14/22 Range/Units 07:26 07:36 07:39 WBC (4.8-10.8) K/ul RBC (4.70-6.10) M/uL Hgb (14.0-18.0) g/dl Hct (42.0-52.0) % MCV (80.0-100.0) fL MCH (25.0-34.0) pg MCHC (32.0-36.0) g/dL RDW Std Deviation (36.4-46.3) fL RDW Coeff of Drew (11.5-14.5) % Plt Count (130-400) K/uL MPV (9.4-12.4) fL Immature Gran % (Auto) % Neut % (Auto) % Lymph % (Auto) % Chase % (Auto) % Eos % (Auto) % Baso % (Auto) % Neut # (Auto) (1.40-6.50) K/uL Lymph # (Auto) (1.2-3.4) K/uL Chase # (Auto) (0.11-0.59) K/uL Eos # (Auto) (0-0.50) K/uL Baso # (Auto) (0-0.2) K/uL Immature Gran # (Auto) (0.01-0.20) K/uL PT (9.0-12.0) Seconds INR (0.9-1.1) APTT (21.0-31.0) Seconds PTT Ratio VBG pH 7.45 H (7.36-7.41) VBG pCO2 46 (38-50) mmHg VBG pO2 52 mmHg VBG HCO3 32 mmol/L VBG O2 Saturation 86.1 % VBG Base Excess 7.1 mEq/L Sodium (136-145) mmol/L Potassium (3.5-5.1) mmol/L Chloride (98-107) mmol/L Carbon Dioxide (21-32) mmol/L Anion Gap (3-11) BUN (6-23) mg/dl Creatinine (0.6-1.4) mg/dl Est Cr Clr Drug Dosing Est GFR ( Amer) ml/min Est GFR (Non-Af Amer) ml/min BUN/Creatinine Ratio (10-20) Glucose (70-99(Fasting)) mg/dl Calcium (8.5-10.1) mg/dl Magnesium (1.7-2.4) mg/dl Total Bilirubin (0.2-1.0) mg/dl Direct Bilirubin (0-0.2) mg/dl AST (13-39) U/L ALT (7-52) U/L Alkaline Phosphatase (34-104) U/L Troponin I High Sens (0-20) pg/ml B-Natriuretic Peptide 180 H (0-100) pg/ml Total Protein (6.0-8.3) gm/dl Albumin (3.4-5.0) gm/dl Procalcitonin 0.45 (0-0.5) ng/ml Urine Color Urine Appearance (Clear) Urine pH (4.5-7.5) Ur Specific [place] (1.000-1.030) Urine Protein (Negative) Urine Glucose (UA) (Negative) Urine Ketones (Negative) Urine Blood (Negative) Urine Nitrite (Negative) Urine Bilirubin (Negative) Urine Urobilinogen (Negative) Ur Leukocyte Esterase (Negative) SARS-CoV-2 (PCR) (Negative) Influenza Type A (PCR) (Neg) Influenza Type B (PCR) (Neg) RSV (RT-PCR) (Neg) 12/14/22 12/14/22 Range/Units 07:40 07:55 WBC (4.8-10.8) K/ul RBC (4.70-6.10) M/uL Hgb (14.0-18.0) g/dl Hct (42.0-52.0) % MCV (80.0-100.0) fL MCH (25.0-34.0) pg MCHC (32.0-36.0) g/dL RDW Std Deviation (36.4-46.3) fL RDW Coeff of Drew (11.5-14.5) % Plt Count (130-400) K/uL MPV (9.4-12.4) fL Immature Gran % (Auto) % Neut % (Auto) % Lymph % (Auto) % Chase % (Auto) % Eos % (Auto) % Baso % (Auto) % Neut # (Auto) (1.40-6.50) K/uL Lymph # (Auto) (1.2-3.4) K/uL Chase # (Auto) (0.11-0.59) K/uL Eos # (Auto) (0-0.50) K/uL Baso # (Auto) (0-0.2) K/uL Immature Gran # (Auto) (0.01-0.20) K/uL PT (9.0-12.0) Seconds INR (0.9-1.1) APTT (21.0-31.0) Seconds PTT Ratio VBG pH (7.36-7.41) VBG pCO2 (38-50) mmHg VBG pO2 mmHg VBG HCO3 mmol/L VBG O2 Saturation % VBG Base Excess mEq/L Sodium (136-145) mmol/L Potassium (3.5-5.1) mmol/L Chloride (98-107) mmol/L Carbon Dioxide (21-32) mmol/L Anion Gap (3-11) BUN (6-23) mg/dl Creatinine (0.6-1.4) mg/dl Est Cr Clr Drug Dosing Est GFR ( Amer) ml/min Est GFR (Non-Af Amer) ml/min BUN/Creatinine Ratio (10-20) Glucose (70-99(Fasting)) mg/dl Calcium (8.5-10.1) mg/dl Magnesium (1.7-2.4) mg/dl Total Bilirubin (0.2-1.0) mg/dl Direct Bilirubin (0-0.2) mg/dl AST (13-39) U/L ALT (7-52) U/L Alkaline Phosphatase (34-104) U/L Troponin I High Sens (0-20) pg/ml B-Natriuretic Peptide (0-100) pg/ml Total Protein (6.0-8.3) gm/dl Albumin (3.4-5.0) gm/dl Procalcitonin (0-0.5) ng/ml Urine Color Yellow Urine Appearance Clear (Clear) Urine pH 5.5 (4.5-7.5) Ur Specific [place] 1.013 (1.000-1.030) Urine Protein Negative (Negative) Urine Glucose (UA) Negative (Negative) Urine Ketones Negative (Negative) Urine Blood Negative (Negative) Urine Nitrite Negative (Negative) Urine Bilirubin Negative (Negative) Urine Urobilinogen Negative (Negative) Ur Leukocyte Esterase Negative (Negative) SARS-CoV-2 (PCR) NEGATIVE (Negative) Influenza Type A (PCR) Negative (Neg) Influenza Type B (PCR) Negative (Neg) RSV (RT-PCR) Negative (Neg) Imaging Data Attestation: I personally reviewed and interpreted this imaging study as follows: My Impression: Chest x-ray reviewed by me showed cardiomegaly with cephalization. Radiologist's Impression: Chest X-Ray 12/14/22 07:17 XR chest 1V portable HISTORY: 67 years-old Male Sepsis acute sepsis with altered mental status COMPARISON: November 26, 2022 TECHNIQUE: AP view of the chest FINDINGS: Cardiac silhouette is enlarged. Pulmonary vascular congestion with interstitial coarsening. No pneumothorax. Small pleural effusions with mild left greater than right bibasilar densities. There is improved aeration of the lungs compared to the prior study. IVC filter. Degenerative changes of the shoulders and spine with sigmoidal scoliosis. IMPRESSION: 1. Cardiomegaly with pulmonary edema and small pleural effusions. 2. Mild left greater than right mid to lower lung zone predominant airspace opacities have improved from the prior study. Correlate clinically to exclude pneumonia. ACT 112: Negative or not required by law. The above report was generated using voice recognition software. It may contain grammatical, syntax or spelling errors. Electronically signed by: Bradley Whalen M.D. 12/14/2022 8:[address] 12/14/22 07:17 CT head/brain wo con CLINICAL HISTORY: 67 years-old Male with ams. Acutely altered mental status TECHNIQUE: Multiple axial CT images of the head were obtained without contrast. A dose lowering technique was utilized adhering to the principles of ALARA. CT DOSE: 1944.98 mGy.cm COMPARISON: 11/24/2022 FINDINGS: No acute intracranial hemorrhage, midline shift, intracranial mass, hydrocephalus, territorial ischemia or abnormal extra-axial collection. Motion degraded exam. Involutional changes with chronic microvascular ischemic disease. Unchanged calcifications of the anterior falx cerebri. The calvarium is intact. Prior bilateral lens repair. The paranasal sinuses, mastoid air cells, and middle ear cavities are clear. IMPRESSION: Motion degraded exam. No acute intracranial abnormality identified. ACT 112: Negative or not required by law. The above report was generated using voice recognition software. It may contain grammatical, syntax or spelling errors. Electronically signed by: Bradley Whalen M.D. 12/14/2022 9:10 AM ECG Data Attestation: I personally reviewed and interpreted this ECG as follows: Indication: + altered mental status Rate (beats per minute): 101 Rhythm: + sinus tachycardia ECG Intervals/blocks: + Right Bundle branch block, + Normal QRS, + Normal MT and + Normal QT-c ECG ST segments: + Normal ST segments Comparison ECG Date: from (October 2022) Change: the following changes noted (Right bundle branch block is new when compared to EKGs from October 2022) [facility] Narrative 0716: The patient was evaluated in room B4. A complete history and physical exam was performed Cardiac monitoring: An order was placed for continuous cardiac monitoring. The monitor shows a rate of 100 with sinus rhythm interpreted by me. Patient was found to be hypoxic on room air at 86%. Supplemental oxygen was applied via nasal cannula which improved the patient's oxygen saturation 0930: Vital signs stable on supplemental oxygen. Labs show white blood cell count 5.39 hemoglobin 10.8 VBG within normal limits. Patient's magnesium is 0.9. Magnesium repletion was started in the emergency department. Patient's BNP is elevated at 180. Troponin negative. Chest x-ray reviewed by me showed cardiomegaly with cephalization. Chest x-ray formal read showed pulmonary edema and mild left greater than right mid to lower lung zone dominant airspace opacities. Given that the patient was recently admitted for pneumonia and does live in assisted living facility the patient will be treated with antibiotics for HCAP with Zosyn and vancomycin ordered for the patient. Discussed the case with [facility] hospitalist Brittney who stated to admit to Dr. Camilo and they will determine diuretics for the patient Impression & Plan Hypoxia, Hypomagnesemia, Decubital ulcer, CHF exacerbation Discharge Plan Visit Data Chief Complaint: Shortness of Breath/Dyspnea Stated Complaint: HYPOXIA, ILLNESS ED Provider: Jose Rutherford Discharge Problem: Hypoxia, Hypomagnesemia, Decubital ulcer, CHF exacerbation Patient Disposition: Admitted As Inpatient Discharge Instructions Interventions: ED Discharge Assessment Last Done: 12/14/22 10:24
[2022-12-14] MEDS ORDERED: SODIUM CHLORIDE 0.9% 1000ML 1,000 ML IV SCH (07:30)
[2022-12-14 07:52] LABS: Base Excess VBG 7.1 mEq/L; HCO3 VBG 32 mmol/L; Oxygen Saturation VBG 86.1 %; PCO2 VBG 46 mmHg (38-50); PO2 VBG 52 mmHg; pH VBG 7.45 (7.36-7.41)
[2022-12-14 07:54] LABS: Basophils # (auto) 0.02 K/uL (0-0.2); Basophils % (auto) 0.4 %; Eosinophils # (auto) 0.01 K/uL (0-0.50); Eosinophils % (auto) 0.2 %; Hematocrit (blood only) 33.8 % (42.0-52.0); Hemoglobin 10.8 g/dl (14.0-18.0); Immature Granulocytes # (auto) 0.01 K/uL (0.01-0.20); Immature Granulocytes % (auto) 0.2 %; Lymphocytes # (auto) 0.27 K/uL (1.2-3.4); Mean Corpuscular Hemoglobin 32.1 pg (25.0-34.0); Mean Corpuscular Volume 100.6 fL (80.0-100.0); Mean Platelet Volume 10.1 fL (9.4-12.4); Monocytes # (auto) 0.35 K/uL (0.11-0.59); Monocytes % (auto) 6.5 %; Neutrophils # (auto) 4.73 K/uL (1.40-6.50); Neutrophils % (auto) 87.7 %; Platelet Count 163 K/uL (130-400); RDW Coefficient of Variation 13.9 % (11.5-14.5); RDW Standard Deviation 50.9 fL (36.4-46.3); Red Blood Count 3.36 M/uL (4.70-6.10); White Blood Count 5.39 K/ul (4.8-10.8)
[2022-12-14 08:04] LABS: Appearance Urine Clear (Clear); Bilirubin Urine Negative (Negative); Blood Urine Negative (Negative); Color Urine Yellow; Glucose Urine UA Negative (Negative); Ketones Urine Negative (Negative); Leukocyte Esterase Urine Negative (Negative); Nitrite Urine Negative (Negative); Protein Urine Negative (Negative); Specific Gravity Urine 1.013 (1.000-1.030); Urobilinogen Urine Negative (Negative); pH Urine 5.5 (4.5-7.5)
[2022-12-14 08:12] LABS: Anion Gap 3 (3-11); BUN Creatinine Ratio 31.3 (10-20); Blood Urea Nitrogen 21 mg/dl (6-23); Calcium 9.6 mg/dl (8.5-10.1); Carbon Dioxide 33 mmol/L (21-32); Chloride 98 mmol/L (98-107); Est GFR (African American) 114.4 ml/min; Est GFR (Non-African American) 98.7 ml/min; Glucose 279 mg/dl (70-99(Fasting)); Potassium 4.4 mmol/L (3.5-5.1); Sodium 134 mmol/L (136-145)
[2022-12-14 08:19] LABS: Alanine Aminotransferase 15 U/L (7-52); Albumin Level 3.8 gm/dl (3.4-5.0); Alkaline Phosphatase 77 U/L (34-104); Aspartate Aminotransferase 15 U/L (13-39); Bilirubin Direct 0.1 mg/dl (0-0.2); Bilirubin,Total 0.4 mg/dl (0.2-1.0); Magnesium 0.9 mg/dl (1.7-2.4); Total Protein 6.4 gm/dl (6.0-8.3)
--- NOTE | 2022-12-14 08:27 | XRay Report ---
XR chest 1V portable HISTORY: 67 years-old Male Sepsis acute sepsis with altered mental status COMPARISON: November 26, 2022 TECHNIQUE: AP view of the chest FINDINGS: Cardiac silhouette is enlarged. Pulmonary vascular congestion with interstitial coarsening. No pneumo thorax. Small pleural effusions with mild left greater than right bibasilar densities. There is impro lauren aeration of the lungs compared to the prior study. IVC filter. Degenerative changes of the should ers and spine with sigmoidal scoliosis. IMPRESSION: 1. Cardiomegaly with pulmonary edema and small pleural effusions. 2. Mild left greater than right mid to lower lung zone predominant airspace opacities have improved f rom the prior study. Correlate clinically to exclude pneumonia. ACT 112: Negative or not required by law. The above report was generated using voice recognition software. It may contain grammatical, syntax o r spelling errors. Electronically signed by: Bradley Whalen M.D. 12/14/2022 8:26 AM
[2022-12-14 08:42] LABS: Influenza A virus by PCR Negative (Neg); Influenza B virus by PCR Negative (Neg); RSV by PCR Negative (Neg); SARS CoV2 RNA(COVID-19) Ceph NEGATIVE (Negative)
[2022-12-14 08:43] LABS: Partial Thromboplastin Ratio 0.9; Partial Thromboplastin Time 24.7 Seconds (21.0-31.0); Prothrombin Time 10.8 Seconds (9.0-12.0)
--- NOTE | 2022-12-14 09:12 | CT Scan Report ---
CT head/brain wo con CLINICAL HISTORY: 67 years-old Male with ams. Acutely altered mental status TECHNIQUE: Multiple axial CT images of the head were obtained without contrast. A dose lowering tech nique was utilized adhering to the principles of ALARA. CT DOSE: 1944.98 mGy.cm COMPARISON: 11/24/2022 FINDINGS: No acute intracranial hemorrhage, midline shift, intracranial mass, hydrocephalus, territorial ischem ia or abnormal extra-axial collection. Motion degraded exam. Involutional changes with chronic microv ascular ischemic disease. Unchanged calcifications of the anterior falx cerebri. The calvarium is intact. Prior bilateral lens repair. The paranasal sinuses, mastoid air cells, and m iddle ear cavities are clear. IMPRESSION: Motion degraded exam. No acute intracranial abnormality identified. ACT 112: Negative or not required by law. The above report was generated using voice recognition software. It may contain grammatical, syntax o r spelling errors. Electronically signed by: Bradley Whalen M.D. 12/14/2022 9:10 AM
[2022-12-14] MEDS ORDERED: VANCOMYCIN CONSULT ACTIVE PRN (09:29)
[2022-12-14] MEDS ORDERED: VANCOMYCIN HCL 1,500 MG in SODIUM CHLORIDE 0.9% 500 ML IV ONE (09:29)
[2022-12-14] MEDS ORDERED: PIPERACILLIN/TAZOBACTAM 4.5 GM/120 ML BAG IV ONE (09:29)
[2022-12-14] MEDS: MAGNESIUM SULFATE / D5W 1 GM/100 ML BAG IV SCH ×4 (09:38→12:19)
--- NOTE | 2022-12-14 10:40 | History & Physical Report ---
Date of Service December 14, 2022 Assessment & Plan (1) Bilateral pneumonia: Plan: 67 y/o male with complicated medical history of DM2, COPD, multiple admissions for pneumonia and hypoxia with recent discharge on 11/30/22 for same, PAF, aortic stenosis, PVD, and chronic ambulatory dysfunction, typically using a wheelchair at baseline who presented to the ED this morning with new fever and hypoxia. Work-up in the ED seems most consistent with recurrent pneumonia. Pt was evaluated for aspiration during last admission, which was negative, and caregiver denies recent witnessed aspiration episodes. Concern for a hospital- acquired pneumonia with recent admission to [facility] then discharge to [facility] so broad-spectrum antibiotics started in the ED. - Admit to PCU - Continue broad-spectrum antibiotics - Zosyn and Vancomycin - Continue O2 for now but will wean as tolerated once respiratory status improves - Minced and moist diet with thin liquids as per facility (2) Hypoxemia: Plan: See plan for #1 (3) Hypomagnesemia: Plan: Noted to have marked hypomag with a level of 0.9 on presentation today - has a history of hypomag in the past for which he is on oral mag oxide 200 mg BID at baselined - Replete IV - given two grams mag sulfate in the ED, will give an additional two grams and repeat mag level tonight (4) Pressure ulcer of coccygeal region, stage 3: Plan: Consult wound care nurse - documentation from facility about what dressings pt is currently using placed on the chart for reference (5) Diabetes mellitus, type 2: Plan: Hold oral meds while admitted Diabetic diet Insulin sliding scale (6) Cerebral palsy: (7) PAF (paroxysmal atrial fibrillation): (8) GERD (gastroesophageal reflux disease): (9) Aortic stenosis: (10) Chronic obstructive pulmonary disease: (11) PVD (peripheral vascular disease): (12) Intellectual disability: Plan Medication list from facility reviewed and reconciled. Continue home meds as appropriate. PT/OT consults - of note, pt did not seem to do well at [facility] after last admission, refused to participate per staff. Pt seen and reviewed with collaborating physician, Dr. Gillespie. Plan of care discussed and as outlined above. Code Status: Full code per caregiver DVT Prophylaxis: Andres Robledo PA-C History of Present Illness Chief Complaint: Low oxygen level and fever Primary Care Provider: Andrew Montague MD This is a 66 y/o male with a PMH of intellectual disability due to cerebral palsy, DM2, COPD, PVD, TRINIDAD, GERD, chronic stasis dermatitis, hearing loss, osteoporosis, and valvular heart disease (mild MR/TR/Aortic Stenosis) who presents to the ED today from [facility] with new-onset hypoxia and fever early this morning. History was obtained by extensive review of patient's chart and from the pt's caregiver at bedside as pt was unable to contribute to the history due to intellectual disability. Pt recently admitted to this facility from 11/24-11/30/22 with acute hypoxemic respiratory failure and sepsis with underlying pneumonia. Pt was treated with Unasyn and Levaquin. Evaluated by speech therapy due to concerns for aspiration - video swallow was negative for aspiration. Discharged to [facility] for rehab. However, pt apparently refused to participate with much of the rehab activities so he was sent back to [facility] after a few days. When he first returned, he continued to have weakness and some issues with falls. Over the last several days, this has been improving with no falls in the last few days per caregiver. Appetite was initially decreased but has gradually improved back to baseline. Pt was seen by PCP yesterday and was doing well. Sometime overnight, pt developed a fever with a temp this AM of 102F. Staff also noted pt to be hypoxic on room air with a Pox of 84%. Due to these findings, pt was referred to the ED for evaluation. In the ED, he had persistent hypoxia but improved with 2-3L of O2. Given broad spectrum IV antibiotics with Zosyn and Vancomycin due to concern for hospital- acquired pneumonia in view of recent admission. Magnesium also noted to be low despite oral supplementation at baseline - IV mag repletion started in the ED. No vomiting, diarrhea, urinary difficulties. Chronic cough has not been worse than usual. Per caregiver, they have noted intermittent LE described as "noticeable" but not severe. She notes that pt's gabapentin dose was recently increased. Allergies Allergy/AdvReac Type Severity Reaction Status Date / Time lactose Allergy Intermediate GI SYMPTOMS Verified 11/24/22 09:50 aspirin Allergy Unknown UNKNOWN Verified 11/24/22 09:50 REACTION cephalexin Allergy Unknown UNKNOWN Verified 11/24/22 09:50 REACTION Cephalosporins Allergy Unknown UNKNOWN Verified 11/24/22 09:50 REACTION Corticosteroids Allergy Unknown UNKNOWN Verified 11/24/22 09:50 (Glucocorticoids) REACTION methylprednisolone Allergy Unknown UNKNOWN Verified 11/24/22 09:50 REACTION shellfish derived Allergy Unknown UNKNOWN Verified 11/24/22 09:50 REACTION Home Medications Medication Instructions Recorded Confirmed Type albuterol sulfate 90 mcg/actuation 2 puff inhalation Q4H PRN 12/23/18 12/14/22 History aerosol inhaler (ProAir HFA) Shortness Of Breath cholecalciferol (vitamin D3) 25 1,000 unit PO QAM 12/23/18 12/14/22 History mcg (1,000 unit) capsule (Vitamin D3) loperamide 2 mg tablet (Imodium 2 mg PO UD PRN Diarrhea 12/23/18 12/14/22 History A-D) magnesium oxide 200 mg PO BID 12/23/18 12/14/22 History metoclopramide HCl 5 mg tablet 5 mg PO ACHS 12/23/18 12/14/22 History (Reglan) omeprazole 20 mg tablet,delayed 20 mg PO QAM 12/23/18 12/14/22 History release simvastatin 40 mg tablet (Zocor) 40 mg PO HS 12/23/18 12/14/22 History sitagliptin phosphate 100 mg 100 mg PO QAM 12/23/18 12/14/22 History tablet (Januvia) trazodone 50 mg tablet 50 mg PO HS MOOD 12/23/18 12/14/22 History loratadine 10 mg tablet (Claritin) 10 mg PO QAM 04/03/20 12/14/22 History pentoxifylline 400 mg 400 mg PO TID 04/03/20 12/14/22 History tablet,extended release umeclidinium 62.5 mcg/actuation 1 inh inhalation QAM 03/02/21 12/14/22 History blister powder for inhalation (Incruse Ellipta) risperidone 2 mg tablet 2 mg PO TID 03/11/21 12/14/22 History aluminum-mag hydroxide-simethicone 30 ml PO QPM 11/23/21 12/14/22 History 200 mg-200 mg-20 mg/5 mL oral susp clonazepam 0.5 mg tablet 0.5 mg PO BID anxiety 11/23/21 12/14/22 History multivitamin (Daily-Shaka tablet) 1 tab PO QAM ##0 11/23/21 12/14/22 History escitalopram oxalate 20 mg tablet 20 mg PO QAM 01/03/22 12/14/22 History metformin 500 mg tablet,extended 1,000 mg PO BIDM 01/03/22 12/14/22 History release 24 hr oxcarbazepine 150 mg tablet 150 mg PO BID 04/08/22 12/14/22 History acetaminophen 325 mg tablet 650 mg PO QID PRN pain #0 tabs 05/03/22 12/14/22 Rx (Tylenol) gabapentin 300 mg capsule 300 mg PO TID 11/24/22 12/14/22 History glimepiride 1 mg tablet 1 mg PO DAILY 11/24/22 12/14/22 History metoprolol tartrate 25 mg tablet 12.5 mg PO BID #60 tabs 11/30/22 12/14/22 Rx Past Med/Surg History Medical History Anxiety Aortic stenosis Mild per 09/2021 ECHO Asthma CAP (community acquired pneumonia) Cerebral palsy Chronic obstructive pulmonary disease Well controlled > hasnt used res inh for 2 yrs Depression Diabetes mellitus, type 2 DJD (degenerative joint disease) Femoral condyle fracture GERD (gastroesophageal reflux disease) History of COVID-19 Tested positive 09/21/21 [facility]). Sinus congestion only. no hospitalization. No current problems. Hospital-acquired pneumonia Hyperlipidemia Hypotension Intellectual disability Lives at [facility] facility Neuropathy TRINIDAD (obstructive sleep apnea) Per records Osteoporosis Peroneal palsy Pica Presence of IVC filter Placed in 1997 per records PVD (peripheral vascular disease) Scoliosis Tibia fracture TMJ (temporomandibular joint disorder) Venous insufficiency Surgical History History of cholecystectomy History of colonoscopy History of tooth extraction S/P cataract surgery Left and Right Family History Father Coronary heart disease Social History Smoking Status: Former smoker packs per day: 30; Second Hand Exposure: No; Hx Alcohol Use: No Hx Substance Use: No Preferred Language: Turkish Communication Ability: Impaired Communication Ability Comment: [facility] Communication Tools: Other Visual Impairment: No Limitations Hearing Ability: Use of Hearing Aid Resistor Coater Required: No Beliefs That Will Affect Care: None marital status: Single marital status details: [facility] Current Living Situation: Personal Care Facility Current Living Situation Comment: [facility] current occupational status: disabled How many Children do You have: 0 Other Information That Helps Us Care for You: No Feels Safe at Home: Yes Safety Concerns: Feels Safe At This Time caffeine: No Assistive Devices: Wheelchair Review of Systems Review of Systems: Unobtainable due to cognitive status Physical Exam Constitutional: + cachectic; no acute distress Eyes: + anicteric sclerae Neck: trachea midline Respiratory: no respiratory distress and no labored breathing Auscultation: + crackles and + rales (left > right ) Cardiovascular: Rate/Rhythm: regular rate and regular rhythm Heart Sounds: + murmur Vessels: dorsalis pedis pulses present and radial pulses present Extremities: no pedal edema Gastrointestinal (Abdomen): Inspection/Auscultation: normal bowel sounds; abdomen not distended Percussion/Palpation: abdomen soft; abdomen nontender Musculoskeletal: Head/Neck/Chest: normocephalic and neck supple Skin: stasis changes bilateral LE Neurologic: moves all extremities; no focal motor deficits Psychiatric: Orientation: alert and oriented to person Results & Data Results & Data ([facility]) Vital Signs (Past 12 Hours) Vital Signs Temp Pulse Pulse Resp BP BP Pulse Ox 12/14/22 10:00 72 16 96 12/14/22 09:00 80 16 96/51 L 98 12/14/22 08:06 77 12/14/22 08:02 79 16 102/52 L 97 12/14/22 07:45 80 16 110/49 L 96 12/14/22 07:20 95 12/14/22 07:17 12/14/22 07:17 37.7 C H 98 H 18 99/46 L 86 L O2 Del Method O2 Flow Rate 12/14/22 10:00 Nasal Cannula 2 12/14/22 09:00 Nasal Cannula 2 12/14/22 08:06 12/14/22 08:02 Nasal Cannula 3 12/14/22 07:45 Nasal Cannula 3 12/14/22 07:20 Nasal Cannula 3 12/14/22 07:17 Room Air 12/14/22 07:17 Room Air Laboratory Results Laboratory Results - last 24 hr 12/14/22 12/14/22 12/14/22 07:26 07:26 07:26 WBC 5.39 RBC 3.36 L Hgb 10.8 L Hct 33.8 L MCV 100.6 H MCH 32.1 MCHC 32.0 RDW Std Deviation 50.9 H RDW Coeff of Drew 13.9 Plt Count 163 MPV 10.1 Immature Gran % (Auto) 0.2 Neut % (Auto) 87.7 Lymph % (Auto) 5.0 [place] % (Auto) 6.5 Eos % (Auto) 0.2 Baso % (Auto) 0.4 Neut # (Auto) 4.73 Lymph # (Auto) 0.27 L [place] # (Auto) 0.35 Eos # (Auto) 0.01 Baso # (Auto) 0.02 Immature Gran # (Auto) 0.01 PT 10.8 INR 1.0 APTT 24.7 PTT Ratio 0.9 VBG pH VBG pCO2 VBG pO2 VBG HCO3 VBG O2 Saturation VBG Base Excess Sodium 134 L Potassium 4.4 Chloride 98 Carbon Dioxide 33 H Anion Gap 3 BUN 21 Creatinine 0.67 Est Cr Clr Drug Dosing Not Reportable Est GFR ( Amer) 114.4 Est GFR (Non-Af Amer) 98.7 BUN/Creatinine Ratio 31.3 H Glucose 279 H Lactate Calcium 9.6 Magnesium 0.9 L* Total Bilirubin 0.4 Direct Bilirubin 0.1 AST 15 ALT 15 Alkaline Phosphatase 77 Troponin I High Sens 19.0 B-Natriuretic Peptide Total Protein 6.4 Albumin 3.8 Procalcitonin Urine Color Urine Appearance Urine pH Ur Specific [place] Urine Protein Urine Glucose (UA) Urine Ketones Urine Blood Urine Nitrite Urine Bilirubin Urine Urobilinogen Ur Leukocyte Esterase SARS-CoV-2 (PCR) Influenza Type A (PCR) Influenza Type B (PCR) RSV (RT-PCR) 12/14/22 12/14/22 12/14/22 07:26 07:36 07:39 WBC RBC Hgb Hct MCV MCH MCHC RDW Std Deviation RDW Coeff of [place] Plt Count MPV Immature Gran % (Auto) Neut % (Auto) Lymph % (Auto) [place] % (Auto) Eos % (Auto) Baso % (Auto) Neut # (Auto) Lymph # (Auto) [place] # (Auto) Eos # (Auto) Baso # (Auto) Immature Gran # (Auto) PT INR APTT PTT Ratio VBG pH 7.45 H VBG pCO2 46 VBG pO2 52 VBG HCO3 32 VBG O2 Saturation 86.1 VBG Base Excess 7.1 Sodium Potassium Chloride Carbon Dioxide Anion Gap BUN Creatinine Est Cr Clr Drug Dosing Est GFR ( Amer) Est GFR (Non-Af Amer) BUN/Creatinine Ratio Glucose Lactate Calcium Magnesium Total Bilirubin Direct Bilirubin AST ALT Alkaline Phosphatase Troponin I High Sens B-Natriuretic Peptide 180 H Total Protein Albumin Procalcitonin 0.45 Urine Color Urine Appearance Urine pH Ur Specific [place] Urine Protein Urine Glucose (UA) Urine Ketones Urine Blood Urine Nitrite Urine Bilirubin Urine Urobilinogen Ur Leukocyte Esterase SARS-CoV-2 (PCR) Influenza Type A (PCR) Influenza Type B (PCR) RSV (RT-PCR) 12/14/22 12/14/22 12/14/22 07:40 07:55 09:54 WBC RBC Hgb Hct MCV MCH MCHC RDW Std Deviation RDW Coeff of Drew Plt Count MPV Immature Gran % (Auto) Neut % (Auto) Lymph % (Auto) [place] % (Auto) Eos % (Auto) Baso % (Auto) Neut # (Auto) Lymph # (Auto) [place] # (Auto) Eos # (Auto) Baso # (Auto) Immature Gran # (Auto) PT INR APTT PTT Ratio VBG pH VBG pCO2 VBG pO2 VBG HCO3 VBG O2 Saturation VBG Base Excess Sodium Potassium Chloride Carbon Dioxide Anion Gap BUN Creatinine Est Cr Clr Drug Dosing Est GFR ( Amer) Est GFR (Non-Af Amer) BUN/Creatinine Ratio Glucose Lactate 1.0 Calcium Magnesium Total Bilirubin Direct Bilirubin AST ALT Alkaline Phosphatase Troponin I High Sens B-Natriuretic Peptide Total Protein Albumin Procalcitonin Urine Color Yellow Urine Appearance Clear Urine pH 5.5 Ur Specific [place] 1.013 Urine Protein Negative Urine Glucose (UA) Negative Urine Ketones Negative Urine Blood Negative Urine Nitrite Negative Urine Bilirubin Negative Urine Urobilinogen Negative Ur Leukocyte Esterase Negative SARS-CoV-2 (PCR) NEGATIVE Influenza Type A (PCR) Negative Influenza Type B (PCR) Negative RSV (RT-PCR) Negative Diagnostic Findings CT Head 12/14/22 - IMPRESSION: Motion degraded exam. No acute intracranial abnormality identified. CXR 12/14/22 - IMPRESSION: 1. Cardiomegaly with pulmonary edema and small pleural effusions. 2. Mild left greater than right mid to lower lung zone predominant airspace opacities have improved from the prior study. Correlate clinically to exclude pneumonia. Medications Administered Vancomycin HCl 1,500 mg/ (Sodium Chloride) 530 mls @ 200 mls/hr IV NOW ONE Stop: 12/14/22 12:07 Last Admin: 12/14/22 10:21 Dose: 200 mls/hr Documented By: TOM Discontinued Medications Sodium Chloride (Nss 1000ml) 1,000 mls @ 999 mls/hr IV .Q1H1M [facility] Stop: 12/14/22 08:30 Last Infusion: 12/14/22 08:37 Dose: 0 mls/hr Documented By: Admin: 12/14/22 07:32 Dose: 999 mls/hr Documented By: TOM Magnesium Sulfate/Dextrose (Magnesium Sulfate / D5w) 1 gm in 100 mls @ 100 mls/hr IV Q1H [facility] Stop: 12/14/22 10:29 Last Admin: 12/14/22 09:38 Dose: 100 mls/hr Documented By: TOM Piperacillin Sod/Tazobactam Sod (Zosyn) 4.5 gm in 120 mls @ 240 mls/hr IV NOW ONE Stop: 12/14/22 09:58 Last Infusion: 12/14/22 10:09 Dose: 0 mls/hr Documented By: Admin: 12/14/22 09:38 Dose: 240 mls/hr Documented By: TOM Supervising Physician Co-Signing Physician Notes Pt is a 67 y/o M with hx of Intellectual disability, ambulatory dysfunction with wheelchair bound, DMII, hx of aspiration pneumonia, Afib, TRINIDAD, decreased hearing, Mild brought admitted for acute respiratory failure due to pneumonia PE: NAD, NC in place, well developed Lungs: fair air entry b/l with b/l lower lobes rales (L>R) Cardiac: Normal S1/S2 with systolic murmur Abd: ND, NT, Soft MSK: no LE edema Skin: stage 3 5x3mm ulcer near the gluteal cleft. No erythema or drainage Psych: AAOx1 with minimally verbal (at his baseline) A/P: Acute respiratory failure 2/2 pneumonia: -CXR: Mild left greater than right mid to lower lung zone predominant airspace opacities have improved from the prior study. Correlate clinically to exclude pneumonia. - SpO2 improved with 2L of oxygen - recent Video swallow study did not show aspiration ---- however will cover for anaerobes empirically with zosyn -continue vanc and zosyn -taper off oxygen as tolerates -at this time not suspecting fluid overload ---however if no improvement in respiratory status then will repeat CXR HypoMg: -will replete and monitor the level more frequently Stage 3 Sacral ulcer: -no signs of infection -appeared to be healing well -will get wound consult Other chronic conditions: plan as above Agree with A/p By Lorie Robledo PA-C
[2022-12-14] MEDS ORDERED: GLUCOSE 10 TAB/TUBE PO PRN (11:07)
[2022-12-14] MEDS ORDERED: ALBUTEROL HFA 8 GM INHALER INH PRN (11:07)
[2022-12-14] MEDS ORDERED: CARBOHYDRATES FOR HYPOGLYCEMIA PO PRN (11:07)
[2022-12-14] MEDS ORDERED: GLUCOSE 40% GEL 15 GM TUBE PO PRN (11:07)
[2022-12-14] MEDS ORDERED: GLUCAGON FOR INJ 1 MG VIAL SQ PRN (11:07)
[2022-12-14] MEDS ORDERED: DEXTROSE 50% 50 ML SYRINGE IV PRN (11:07)
--- NOTE | 2022-12-14 11:39 | Electrocardiogram Report ---
Test Reason : Blood Pressure : / mmHG Vent. Rate : 101 BPM Atrial Rate : 101 BPM P-R Int : 150 ms QRS Dur : 104 ms QT Int : 344 ms P-R-T Axes : 061 004 033 degrees QTc Int : 446 ms Poor data quality, interpretation may be adversely affected Sinus tachycardia Incomplete right bundle branch block Abnormal ECG When compared with ECG of 28-NOV-2022 03:33, PAC's with Aberrant conduction is no longer Present Incomplete right bundle branch block now present Confirmed by Pepe Knowles ([id number]) on 12/14/2022 11:39:10 AM Referred By: Confirmed By:Pepe Knowles
[2022-12-14] MEDS: PANTOprazole 40 MG TAB PO SCH (12:11)
[2022-12-14] MEDS: UMECLIDINIUM BROMIDE 62.5MCG/BLISTER 7 PUFFS/INHALER INH SCH (12:12)
[2022-12-14] MEDS: OXcarbazepine 150 MG TABLET PO SCH ×2 (12:12→20:43)
[2022-12-14] MEDS: LORATADINE 10 MG TAB PO SCH (12:12)
[2022-12-14] MEDS: ESCITALOPRAM OXALATE 20 MG TAB PO SCH (12:12)
--- NOTE | 2022-12-14 12:14 | Pharmacy Report ---
Pharmacy PK ABX Note - Date of Service December 14, 2022 - Assessment and Plan Assessment 67 year old M receiving Vancomycin and Zosyn for treatment of HAP * Patient presents from [facility] with new onset fever and hypoxia * H/o COPD and multiple admissions for pneumonia * Blood cultures pending Plan Vancomycin * Loading dose: 1500 mg IV x 1 * Maintenance dose: 1000 mg IV every 12 hours * Regimen is predicted to achieve target AUC/HOPE of 400-600 mg/L.hr * Random level ordered for: 12/16/22 Zosyn * 4.5 g IV x 1 loading dose followed by 3.375 g IV every 8 hours Pharmacy will continue to follow and will adjust dose/frequency as necessary. Thank you. Pharmacy has transitioned to AUC monitoring for vancomycin. AUC/HOPE is the preferred PK/PD target and is associated with decreased risk of nephrotoxicity compared to traditional trough targets.
[2022-12-14] MEDS: INSULIN ASPART PER UNIT SC SCH ×3 (12:15→20:34)
[2022-12-14] MEDS: METOCLOPRAMIDE HCL 5 MG TABLET PO SCH ×3 (12:15→20:43)
[2022-12-14] MEDS: risperiDONE 2 MG TABLET PO SCH ×2 (14:10→20:43)
[2022-12-14] MEDS: GABAPENTIN 300 MG CAP PO SCH ×2 (14:10→20:43)
[2022-12-14] MEDS: PIPERACILLIN/TAZOBACTAM 3.375 GM in DEXTROSE 5% 100 ML IV SCH ×2 (14:35→23:01)
[2022-12-14] MEDS: PENTOXIFYLLINE 400MG EXT REL TAB PO SCH ×2 (16:57→20:43)
[2022-12-14] MEDS: SIMVASTATIN 40 MG TAB PO SCH (20:42)
[2022-12-14] MEDS: MAGNESIUM OXIDE 400 MG TAB PO SCH (20:43)
[2022-12-14] MEDS: traZODone HCL 50 MG TAB PO SCH (20:43)
[2022-12-14] MEDS: METOPROLOL TARTRATE 25 MG TAB PO SCH (20:43)
[2022-12-14] MEDS: VANCOMYCIN HCL 1,000 MG in SODIUM CHLORIDE 0.9% 250 ML IV SCH (23:01)
[2022-12-15] MEDS ORDERED: ONDANSETRON INJ 2 MG/ML 2 ML VIAL IV STA (04:11)
[2022-12-15] MEDS: PIPERACILLIN/TAZOBACTAM 3.375 GM in DEXTROSE 5% 100 ML IV SCH ×3 (05:30→23:39)
[2022-12-15] MEDS: ACETAMINOPHEN 325 MG TAB PO PRN ×2 (06:34→16:51)
[2022-12-15 06:51] LABS: Basophils # (auto) 0.02 K/uL (0-0.2); Basophils % (auto) 0.3 %; Eosinophils # (auto) 0.04 K/uL (0-0.50); Eosinophils % (auto) 0.6 %; Hematocrit (blood only) 28.5 % (42.0-52.0); Hemoglobin 9.2 g/dl (14.0-18.0); Immature Granulocytes # (auto) 0.02 K/uL (0.01-0.20); Immature Granulocytes % (auto) 0.3 %; Lymphocytes # (auto) 0.66 K/uL (1.2-3.4); Lymphocytes % (auto) 10.1 %; Mean Corpuscular Hemoglobin 32.1 pg (25.0-34.0); Mean Corpuscular Hgb Conc 32.3 g/dL (32.0-36.0); Mean Corpuscular Volume 99.3 fL (80.0-100.0); Mean Platelet Volume 10.4 fL (9.4-12.4); Monocytes # (auto) 0.39 K/uL (0.11-0.59); Neutrophils # (auto) 5.39 K/uL (1.40-6.50); Neutrophils % (auto) 82.7 %; Platelet Count 119 K/uL (130-400); Red Blood Count 2.87 M/uL (4.70-6.10); White Blood Count 6.52 K/ul (4.8-10.8)
[2022-12-15 07:01] LABS: BUN Creatinine Ratio 33.9 (10-20); Calcium 9.2 mg/dl (8.5-10.1); Creatinine Clr Calc Pharmacy 127.1 ml/min; Est GFR (African American) 123.2 ml/min; Est GFR (Non-African American) 106.3 ml/min; Magnesium 1.4 mg/dl (1.7-2.4); Potassium 4.6 mmol/L (3.5-5.1)
[2022-12-15] MEDS: INSULIN ASPART PER UNIT SC SCH ×4 (08:51→20:44)
[2022-12-15] MEDS: GABAPENTIN 300 MG CAP PO SCH ×3 (08:52→20:43)
[2022-12-15] MEDS: METOPROLOL TARTRATE 25 MG TAB PO SCH ×3 (08:52→20:52)
[2022-12-15] MEDS: OXcarbazepine 150 MG TABLET PO SCH ×2 (08:52→20:43)
[2022-12-15] MEDS: MAGNESIUM OXIDE 400 MG TAB PO SCH ×2 (08:52→20:44)
[2022-12-15] MEDS: METOCLOPRAMIDE HCL 5 MG TABLET PO SCH ×4 (08:52→20:43)
--- NOTE | 2022-12-15 08:54 | Hospitalist Progress Note ---
Date of Service December 15, 2022 Assessment & Plan (1) Bilateral pneumonia: Plan: 67 y/o male with complicated medical history of DM2, COPD, multiple admissions for pneumonia and hypoxia with recent discharge on 11/30/22 for same, PAF, aortic stenosis, PVD, and chronic ambulatory dysfunction, typically using a wheelchair at baseline who presented to the ED with new fever and hypoxia. Work-up in the ED seems most consistent with recurrent pneumonia/ hosp-acquired. Pt was evaluated for aspiration during last admission, which was negative, and caregiver denies recent witnessed aspiration episodes. Concern for a hospital-acquired pneumonia with recent admission to [facility] then discharge to [facility] so broad-spectrum antibiotics started in the ED. - Admitted to PCU - Continue broad-spectrum antibiotics - Zosyn and Vancomycin - hypoxic 84-86% on RA on admission and required 2L O2 for now on RA - crackles on left side noted - will repeat CXR - add guafenesin, flutter valve, IS - discussed w/ RN - Minced and moist diet with thin liquids as per facility (2) Hypoxemia: Plan: See plan for #1 (3) Hypomagnesemia: Plan: Noted to have marked hypomag with a level of 0.9 in ED - has a history of hypomag in the past for which he is on oral mag oxide 200 mg BID at baselined - Replete and monitor (4) Pressure ulcer of coccygeal region, stage 3: Plan: Consult wound care nurse - documentation from facility about what dressings pt is currently using placed on the chart for reference (5) Diabetes mellitus, type 2: Plan: Hold oral meds while admitted Diabetic diet Insulin sliding scale (6) Cerebral palsy: (7) PAF (paroxysmal atrial fibrillation): (8) GERD (gastroesophageal reflux disease): (9) Aortic stenosis: (10) Chronic obstructive pulmonary disease: (11) PVD (peripheral vascular disease): (12) Intellectual disability: Plan PT/OT consults - of note, pt did not seem to do well at [facility] after last admission, refused to participate per staff. Code Status: Full code per caregiver DVT Prophylaxis: Lovenox Admission and Anticipated Discharge Date Admission Date: December 14, 2022 Subjective Patient seen in follow-up of hypoxia, pneumonia, recent admission for pneumonia Patient with intellectual disability, now treated for hospital-acquired pneumonia, hypomagnesemia Laying /sitting up in bed in no acute distress, he is awake and alert, laying on his left side, and says that his left side feels uncomfortable He is currently on room air Reports minimal cough Currently no other complaints, also somewhat difficult to get full history /ROS from the patient Review of Systems Review of Systems: All systems reviewed & are unremarkable except as noted in Subjective Physical Exam Physical Exam: Constitutional:L + cachectic M; no acute distress Eyes: + anicteric sclera e Neck: supple Respiratory: no respiratory dis tress and no labor ed breathing Ausc ultation: + crackl es and + rales (le ft > right ) Cardiovascular:L Rate/Rhythm: regul ar rate and regula r rhythm Heart So unds: + murmur, E xtremities: no ped al edema Gastrointestinal ( Abdomen): normal bowel soun ds; abdomen not di stended, soft, non tender Musculoskeletal: Head/Neck/Chest: n ormocephalic and n rigoberto supple Skin: stasis changes bi lateral LE Neuro/Psych: awake and alert, p leasant, able to a nswer simple quest ions, moves all ex tremities Results & Data Results & Data ([facility]) Vital Signs (Past 12 Hours) Vital Signs Temp Pulse Pulse Resp BP Pulse Ox O2 Del Method 12/15/22 07:56 36.7 C 64 19 113/56 L 93 Room Air 12/15/22 02:57 36.6 C 61 20 110/64 96 Room Air 12/14/22 23:37 68 12/14/22 22:39 36.8 C 66 20 121/65 96 Room Air Laboratory Results 12/15/22 12/15/22 12/15/22 Range/Units 07:22 07:21 06:18 WBC (4.8-10.8) K/ul RBC (4.70-6.10) M/uL Hgb (14.0-18.0) g/dl Hct (42.0-52.0) % MCV (80.0-100.0) fL MCH (25.0-34.0) pg MCHC (32.0-36.0) g/dL RDW Std Deviation (36.4-46.3) fL RDW Coeff of Drew (11.5-14.5) % Plt Count (130-400) K/uL MPV (9.4-12.4) fL Immature Gran % (Auto) % Neut % (Auto) % Lymph % (Auto) % [place] % (Auto) % Eos % (Auto) % Baso % (Auto) % Neut # (Auto) (1.40-6.50) K/uL Lymph # (Auto) (1.2-3.4) K/uL [place] # (Auto) (0.11-0.59) K/uL Eos # (Auto) (0-0.50) K/uL Baso # (Auto) (0-0.2) K/uL Immature Gran # (Auto) (0.01-0.20) K/uL Sodium 129 L (136-145) mmol/L Potassium 4.6 (3.5-5.1) mmol/L Chloride 95 L (98-107) mmol/L Carbon Dioxide 31 (21-32) mmol/L Anion Gap 3 (3-11) BUN 19 (6-23) mg/dl Creatinine 0.56 L (0.6-1.4) mg/dl Est Cr Clr Drug Dosing 127.1 ml/min Est GFR ( Amer) 123.2 ml/min Est GFR (Non-Af Amer) 106.3 ml/min BUN/Creatinine Ratio 33.9 H (10-20) Glucose 251 H (70-99(Fasting)) mg/dl POC Glucose 291 H 304 H* (70-99) mg/dl Lactate (0.4-2.0) mmol/L Calcium 9.2 (8.5-10.1) mg/dl Magnesium 1.4 L (1.7-2.4) mg/dl Nasal Screen MRSA (PCR) (Negative) 12/15/22 12/14/22 12/14/22 Range/Units 06:18 Unknown 20:07 WBC 6.52 (4.8-10.8) K/ul RBC 2.87 L (4.70-6.10) M/uL Hgb 9.2 L (14.0-18.0) g/dl Hct 28.5 L (42.0-52.0) % MCV 99.3 (80.0-100.0) fL MCH 32.1 (25.0-34.0) pg MCHC 32.3 (32.0-36.0) g/dL RDW Std Deviation 51.0 H (36.4-46.3) fL RDW Coeff of Drew 14.0 (11.5-14.5) % Plt Count 119 L (130-400) K/uL MPV 10.4 (9.4-12.4) fL Immature Gran % (Auto) 0.3 % Neut % (Auto) 82.7 % Lymph % (Auto) 10.1 % [place] % (Auto) 6.0 % Eos % (Auto) 0.6 % Baso % (Auto) 0.3 % Neut # (Auto) 5.39 (1.40-6.50) K/uL Lymph # (Auto) 0.66 L (1.2-3.4) K/uL [place] # (Auto) 0.39 (0.11-0.59) K/uL Eos # (Auto) 0.04 (0-0.50) K/uL Baso # (Auto) 0.02 (0-0.2) K/uL Immature Gran # (Auto) 0.02 (0.01-0.20) K/uL Sodium (136-145) mmol/L Potassium (3.5-5.1) mmol/L Chloride (98-107) mmol/L Carbon Dioxide (21-32) mmol/L Anion Gap (3-11) BUN (6-23) mg/dl Creatinine (0.6-1.4) mg/dl Est Cr Clr Drug Dosing ml/min Est GFR ( Amer) ml/min Est GFR (Non-Af Amer) ml/min BUN/Creatinine Ratio (10-20) Glucose (70-99(Fasting)) mg/dl POC Glucose 205 H (70-99) mg/dl Lactate (0.4-2.0) mmol/L Calcium (8.5-10.1) mg/dl Magnesium (1.7-2.4) mg/dl Nasal Screen MRSA (PCR) Negative (Negative) 12/14/22 12/14/22 12/14/22 Range/Units 18:08 16:14 11:17 WBC (4.8-10.8) K/ul RBC (4.70-6.10) M/uL Hgb (14.0-18.0) g/dl Hct (42.0-52.0) % MCV (80.0-100.0) fL MCH (25.0-34.0) pg MCHC (32.0-36.0) g/dL RDW Std Deviation (36.4-46.3) fL RDW Coeff of Drew (11.5-14.5) % Plt Count (130-400) K/uL MPV (9.4-12.4) fL Immature Gran % (Auto) % Neut % (Auto) % Lymph % (Auto) % [place] % (Auto) % Eos % (Auto) % Baso % (Auto) % Neut # (Auto) (1.40-6.50) K/uL Lymph # (Auto) (1.2-3.4) K/uL [place] # (Auto) (0.11-0.59) K/uL Eos # (Auto) (0-0.50) K/uL Baso # (Auto) (0-0.2) K/uL Immature Gran # (Auto) (0.01-0.20) K/uL Sodium (136-145) mmol/L Potassium (3.5-5.1) mmol/L Chloride (98-107) mmol/L Carbon Dioxide (21-32) mmol/L Anion Gap (3-11) BUN (6-23) mg/dl Creatinine (0.6-1.4) mg/dl Est Cr Clr Drug Dosing ml/min Est GFR ( Amer) ml/min Est GFR (Non-Af Amer) ml/min BUN/Creatinine Ratio (10-20) Glucose (70-99(Fasting)) mg/dl POC Glucose 97 257 H (70-99) mg/dl Lactate (0.4-2.0) mmol/L Calcium (8.5-10.1) mg/dl Magnesium 1.5 L (1.7-2.4) mg/dl Nasal Screen MRSA (PCR) (Negative) 12/14/22 Range/Units 09:54 WBC (4.8-10.8) K/ul RBC (4.70-6.10) M/uL Hgb (14.0-18.0) g/dl Hct (42.0-52.0) % MCV (80.0-100.0) fL MCH (25.0-34.0) pg MCHC (32.0-36.0) g/dL RDW Std Deviation (36.4-46.3) fL RDW Coeff of Drew (11.5-14.5) % Plt Count (130-400) K/uL MPV (9.4-12.4) fL Immature Gran % (Auto) % Neut % (Auto) % Lymph % (Auto) % [place] % (Auto) % Eos % (Auto) % Baso % (Auto) % Neut # (Auto) (1.40-6.50) K/uL Lymph # (Auto) (1.2-3.4) K/uL [place] # (Auto) (0.11-0.59) K/uL Eos # (Auto) (0-0.50) K/uL Baso # (Auto) (0-0.2) K/uL Immature Gran # (Auto) (0.01-0.20) K/uL Sodium (136-145) mmol/L Potassium (3.5-5.1) mmol/L Chloride (98-107) mmol/L Carbon Dioxide (21-32) mmol/L Anion Gap (3-11) BUN (6-23) mg/dl Creatinine (0.6-1.4) mg/dl Est Cr Clr Drug Dosing ml/min Est GFR ( Amer) ml/min Est GFR (Non-Af Amer) ml/min BUN/Creatinine Ratio (10-20) Glucose (70-99(Fasting)) mg/dl POC Glucose (70-99) mg/dl Lactate 1.0 (0.4-2.0) mmol/L Calcium (8.5-10.1) mg/dl Magnesium (1.7-2.4) mg/dl Nasal Screen MRSA (PCR) (Negative) Medications Administered Current Inpatient Medications Acetaminophen (Acetaminophen 325 Mg Tab) 650 mg PO Q4H PRN PRN Reason: Pain or Fever Stop: 01/13/23 11:06 Last Admin: 12/15/22 06:34 Dose: 650 mg Albuterol (Albuterol Hfa 8 Gm Inhaler) 2 puffs INH Q4H PRN PRN Reason: Shortness Of Breath Stop: 01/13/23 11:06 Dextrose (Dextrose 50% 50 Ml Syringe) 25 - 50 ml IV UD PRN; Protocol PRN Reason: Hypoglycemia Protocol Stop: 01/13/23 11:06 Enoxaparin Sodium (Enoxaparin Inj 40 Mg/0.4 Ml Syr) 40 mg SQ QAM [facility] Stop: 01/14/23 08:59 Escitalopram Oxalate (Escitalopram Oxalate 20 Mg Tab) 20 mg PO QAM [facility] Stop: 01/13/23 11:06 Last Admin: 12/14/22 12:12 Dose: 20 mg Gabapentin (Gabapentin 300 Mg Cap) 300 mg PO TID [facility] Stop: 01/13/23 13:59 Last Admin: 12/14/22 20:43 Dose: 300 mg Glucagon (Glucagon For Inj 1 Mg Vial) 1 mg SQ UD PRN; Protocol PRN Reason: Hypoglycemia Protocol Stop: 01/13/23 11:06 Glucose (Glucose 10 Tab/Tube) 4 - 8 tab PO UD PRN; Protocol PRN Reason: Hypoglycemia Treatment Stop: 01/13/23 11:06 Glucose (Glucose 40% Gel 15 Gm Tube) 15 - 30 gm PO UD PRN; Protocol PRN Reason: Hypoglycemia Protocol Stop: 01/13/23 11:06 Piperacillin Sod/Tazobactam (Sod 3.375 gm/ Dextrose) 115 mls @ 28.75 mls/hr IV Q8H [facility]; Protocol Stop: 12/21/22 17:29 Last Admin: 12/15/22 05:30 Dose: 28.8 mls/hr Vancomycin HCl 1,000 mg/ (Sodium Chloride) 270 mls @ 200 mls/hr IV Q12H [facility]; Protocol Stop: 12/21/22 21:59 Last Infusion: 12/15/22 00:38 Dose: Infused Insulin Aspart (Insulin Aspart Per Unit) 0 units SC [facility] Stop: 01/13/23 11:29 Last Admin: 12/14/22 20:34 Dose: 5 units Loratadine (Loratadine 10 Mg Tab) 10 mg PO QAM [facility] Stop: 01/13/23 11:06 Last Admin: 12/14/22 12:12 Dose: 10 mg Magnesium Oxide (Magnesium Oxide 400 Mg Tab) 400 mg PO BID [facility] Stop: 01/13/23 20:59 Last Admin: 12/14/22 20:43 Dose: 400 mg Metoclopramide HCl (Metoclopramide Hcl 5 Mg Tablet) 5 mg PO ACHS [facility] Stop: 01/13/23 11:29 Last Admin: 12/14/22 20:43 Dose: 5 mg Metoprolol Tartrate (Metoprolol Tartrate 25 Mg Tab) 12.5 mg PO BID [facility] Stop: 01/13/23 20:59 Last Admin: 12/14/22 20:43 Dose: 12.5 mg Miscellaneous (Carbohydrates For Hypoglycemia ) 15 - 30 gm PO UD PRN PRN Reason: Hypoglycemia Protocol Stop: 01/13/23 11:06 Miscellaneous Information (Vancomycin Consult Active) 1 each N/A UD PRN PRN Reason: Consult Stop: 01/13/23 09:28 Multivitamins (Multivitamin Tab) 1 tab PO QAM [facility] Stop: 01/14/23 08:59 Oxcarbazepine (Oxcarbazepine 150 Mg Tablet) 150 mg PO BID [facility] Stop: 01/13/23 11:06 Last Admin: 12/14/22 20:43 Dose: 150 mg Pantoprazole Sodium (Pantoprazole 40 Mg Tab) 40 mg PO QAM [facility] Stop: 01/13/23 11:06 Last Admin: 12/14/22 12:11 Dose: 40 mg Pentoxifylline (Pentoxifylline 400mg Ext Rel Tab) 400 mg PO TID@0800,1600,2000 [facility] Stop: 01/13/23 15:59 Last Admin: 12/14/22 20:43 Dose: 400 mg Risperidone (Risperidone 2 Mg Tablet) 2 mg PO TID [facility] Stop: 01/13/23 13:59 Last Admin: 12/14/22 20:43 Dose: 2 mg Simvastatin (Simvastatin 40 Mg Tab) 40 mg PO HS [facility] Stop: 01/13/23 20:59 Last Admin: 12/14/22 20:42 Dose: 40 mg Trazodone HCl (Trazodone Hcl 50 Mg Tab) 50 mg PO Q24H [facility] Stop: 01/13/23 19:59 Last Admin: 12/14/22 20:43 Dose: 50 mg Umeclidinium Smilax (Umeclidinium Smilax 62.5mcg/Blister 7 Puffs/Inhaler) 1 puffs INH QAM [facility] Stop: 01/13/23 11:06 Last Admin: 12/14/22 12:12 Dose: 1 puffs Vitamin D (Cholecalciferol 1,000 Units 25 Mcg Tab) 1,000 units PO QAM [facility] Stop: 01/14/23 08:59
[2022-12-15] MEDS: PENTOXIFYLLINE 400MG EXT REL TAB PO SCH ×3 (08:55→19:48)
[2022-12-15] MEDS ORDERED: MAGNESIUM SULFATE / D5W 1 GM/100 ML BAG IV ONE (08:55)
[2022-12-15] MEDS: CHOLECALCIFEROL 1,000 UNITS 25 MCG TAB PO SCH (08:55)
[2022-12-15] MEDS: LORATADINE 10 MG TAB PO SCH (08:55)
[2022-12-15] MEDS: MULTIVITAMIN TAB PO SCH (08:56)
[2022-12-15] MEDS: ENOXAPARIN INJ 40 MG/0.4 ML SYR SQ SCH (08:56)
[2022-12-15] MEDS: ESCITALOPRAM OXALATE 20 MG TAB PO SCH (08:56)
[2022-12-15] MEDS: risperiDONE 2 MG TABLET PO SCH ×3 (08:56→20:42)
[2022-12-15] MEDS: PANTOprazole 40 MG TAB PO SCH (08:57)
[2022-12-15] MEDS: UMECLIDINIUM BROMIDE 62.5MCG/BLISTER 7 PUFFS/INHALER INH SCH (08:57)
[2022-12-15] MEDS: VANCOMYCIN HCL 1,000 MG in SODIUM CHLORIDE 0.9% 250 ML IV SCH ×2 (10:54→22:09)
[2022-12-15] MEDS: guaiFENesin 600 MG TABCR PO SCH ×2 (11:01→20:43)
--- NOTE | 2022-12-15 11:05 | XRay Report ---
SINGLE VIEW CHEST CLINICAL HISTORY: Follow-up congestive failure FINDINGS: An AP, portable, upright chest radiograph is compared to study dated 12/14/2022. Correlation is made with chest CT dated 08/15/2021. The examination is degraded by portable technique and patien t rotation. The heart is enlarged with atherosclerotic calcification of the thoracic aorta. There is pulmonary vascular congestion with evidence of interstitial edema . Atelectasis is seen at the lung b ases. No large pleural effusion or pneumothorax is identified. The skeletal structures are osteopenic . There are chronic/healed bilateral rib fractures. Degenerative change and scoliosis is noted in the spine. IVC filter is seen below the right hemidiaphragm. IMPRESSION: 1. Cardiomegaly with evidence of congestive failure and pulmonary edema. This as worsened as compared to yesterday. Correlate clinically for evidence of a superimposed infectious/inflammatory pneumoniti s. 2. No large pleural effusion is identified. ACT 112: Negative or not required by law. Electronically signed by: Beka Irby M.D. 12/15/2022 11:04 AM
[2022-12-15] MEDS ORDERED: FUROSEMIDE INJ 20 MG/2 ML VIAL IV ONE ×2 (14:15→18:03)
[2022-12-15] MEDS: traZODone HCL 50 MG TAB PO SCH (19:48)
[2022-12-15 19:51] LABS: BUN Creatinine Ratio 38.2 (10-20); Calcium 8.9 mg/dl (8.5-10.1); Creatinine Clr Calc Pharmacy 93.7 ml/min; Est GFR (African American) 108.7 ml/min; Est GFR (Non-African American) 93.7 ml/min; Magnesium 1.4 mg/dl (1.7-2.4); Potassium 4.5 mmol/L (3.5-5.1)
[2022-12-15] MEDS: SIMVASTATIN 40 MG TAB PO SCH (20:42)
[2022-12-16] MEDS: PIPERACILLIN/TAZOBACTAM 3.375 GM in DEXTROSE 5% 100 ML IV SCH ×3 (06:00→21:04)
[2022-12-16] MEDS: ACETAMINOPHEN 325 MG TAB PO PRN (06:00)
[2022-12-16] MEDS ORDERED: MAGNESIUM SULFATE / D5W 1 GM/100 ML BAG IV ONE (07:17)
--- NOTE | 2022-12-16 07:17 | Hospitalist Progress Note ---
Date of Service December 16, 2022 Assessment & Plan (1) Bilateral pneumonia: Plan: 67 y/o male with complicated medical history of DM2, COPD, multiple admissions for pneumonia and hypoxia with recent discharge on 11/30/22 for same, PAF, aortic stenosis, PVD, and chronic ambulatory dysfunction, typically using a wheelchair at baseline who presented to the ED with new fever and hypoxia. Work-up in the ED seems most consistent with recurrent pneumonia/ hosp-acquired. Pt was evaluated for aspiration during last admission, which was negative, and caregiver denies recent witnessed aspiration episodes. Concern for a hospital-acquired pneumonia with recent admission to [facility] then discharge to [facility] so broad-spectrum antibiotics started in the ED. - Admitted to PCU - Continue broad-spectrum antibiotics - Zosyn and Vancomycin - hypoxic 84-86% on RA on admission and required 2L O2, now on RA - crackles on left side noted - repeat CXR - significant for pulm. vasc. congestion - added guafenesin, flutter valve, IS - discussed w/ RN - Minced and moist diet with thin liquids as per facility - started IV lasix for pulm. congestion, fluid overload - discussed w/ nephro (2) Hypoxemia: Plan: See plan for #1 (3) Hypomagnesemia: Plan: Noted to have marked hypomag with a level of 0.9 in ED - has a history of hypomag in the past for which he is on oral mag oxide 200 mg BID at baselined - Replete and monitor Hyponatremia Na 129 on 12/15 Discussed with nephrology, Dr. Stevenson, seems that this is hypervolemic, recommend to give small dose IV Lasix. 20 IV Lasix given, BMP rechecked in the evening sodium 122 Checked this a.m. sodium 126 Nephrology consulted - continue with IV lasix, urea, cont. to monitor BMP at least twice a day (4) Pressure ulcer of coccygeal region, stage 3: Plan: Consult wound care nurse - documentation from facility about what dressings pt is currently using placed on the chart for reference (5) Diabetes mellitus, type 2: Plan: Hold oral meds while admitted Diabetic diet Insulin sliding scale (6) Cerebral palsy: (7) PAF (paroxysmal atrial fibrillation): (8) GERD (gastroesophageal reflux disease): (9) Aortic stenosis: (10) Chronic obstructive pulmonary disease: (11) PVD (peripheral vascular disease): (12) Intellectual disability: Plan PT/OT consults - of note, pt did not seem to do well at [facility] after last admission, refused to participate per staff. Code Status: Full code per caregiver DVT Prophylaxis: Lovenox Admission and Anticipated Discharge Date Admission Date: December 14, 2022 Subjective Patient seen in follow-up of hypoxia, pneumonia, recent admission for pneumonia Patient with intellectual disability, now treated for hospital-acquired pneumonia, hypomagnesemia, hyponatremia Laying /sitting up in bed in no acute distress, he is awake and alert, 1:! sitter present at the bedside Patient appears comfortable, currently on room air Reports minimal cough Currently no other complaints, also somewhat difficult to get full history /ROS from the patient Review of Systems Review of Systems: Other Physical Exam Physical Exam: Constitutional:L + cachectic M; no acute distress Eyes: + anicteric sclera e Neck: supple Respiratory: no respiratory dis tress and no labor ed breathing Ausc ultation: + crackl es and + rales (le ft > right ) Cardiovascular:L Rate/Rhythm: regul ar rate and regula r rhythm Heart So unds: + murmur, E xtremities: no ped al edema Gastrointestinal ( Abdomen): normal bowel soun ds; abdomen not di stended, soft, non tender Musculoskeletal: Head/Neck/Chest: n ormocephalic and n rigoberto supple Skin: stasis changes bi lateral LE Neuro/Psych: awake and alert, p leasant, able to a nswer simple quest ions, moves all ex tremities Results & Data Results & Data ([facility]) Vital Signs (Past 12 Hours) Vital Signs Temp Pulse Pulse Pulse Resp BP Pulse Ox 12/16/22 06:58 36.7 C 58 L 20 133/79 92 12/16/22 03:57 36.7 C 57 L 16 97/57 L 93 12/15/22 22:03 68 12/15/22 19:30 12/15/22 23:38 36.5 C 60 16 100/58 L 91 12/15/22 20:51 66 92/54 L 12/15/22 19:59 37.1 C 64 18 103/61 94 O2 Del Method 12/16/22 06:58 Room Air 12/16/22 03:57 Room Air 12/15/22 22:03 12/15/22 19:30 Room Air 12/15/22 23:38 Room Air 12/15/22 20:51 12/15/22 19:59 Room Air Laboratory Results 12/16/22 12/16/22 12/16/22 Range/Units 07:11 06:56 06:56 WBC 5.53 (4.8-10.8) K/ul RBC 2.88 L (4.70-6.10) M/uL Hgb 9.3 L (14.0-18.0) g/dl Hct 28.3 L (42.0-52.0) % MCV 98.3 (80.0-100.0) fL MCH 32.3 (25.0-34.0) pg MCHC 32.9 (32.0-36.0) g/dL RDW Std Deviation 49.1 H (36.4-46.3) fL RDW Coeff of Drew 13.6 (11.5-14.5) % Plt Count 113 L (130-400) K/uL MPV 11.0 (9.4-12.4) fL Sodium 126 L (136-145) mmol/L Potassium 4.5 (3.5-5.1) mmol/L Chloride 90 L (98-107) mmol/L Carbon Dioxide 32 (21-32) mmol/L Anion Gap 4 (3-11) BUN 26 H (6-23) mg/dl Creatinine 0.65 (0.6-1.4) mg/dl Est Cr Clr Drug Dosing 110.3 ml/min Est GFR ( Amer) 115.9 ml/min Est GFR (Non-Af Amer) 100.0 ml/min BUN/Creatinine Ratio 40.0 H (10-20) Glucose 218 H (70-99(Fasting)) mg/dl POC Glucose 222 H (70-99) mg/dl Calcium 9.3 (8.5-10.1) mg/dl Phosphorus 3.9 (2.5-4.9) mg/dl Magnesium 1.4 L (1.7-2.4) mg/dl Random Vancomycin (10-20) mcg/ml 12/16/22 12/15/22 12/15/22 Range/Units 06:56 19:06 16:08 WBC (4.8-10.8) K/ul RBC (4.70-6.10) M/uL Hgb (14.0-18.0) g/dl Hct (42.0-52.0) % MCV (80.0-100.0) fL MCH (25.0-34.0) pg MCHC (32.0-36.0) g/dL RDW Std Deviation (36.4-46.3) fL RDW Coeff of Drew (11.5-14.5) % Plt Count (130-400) K/uL MPV (9.4-12.4) fL Sodium 122 L (136-145) mmol/L Potassium 4.5 (3.5-5.1) mmol/L Chloride 88 L (98-107) mmol/L Carbon Dioxide 30 (21-32) mmol/L Anion Gap 4 (3-11) BUN 29 H (6-23) mg/dl Creatinine 0.76 (0.6-1.4) mg/dl Est Cr Clr Drug Dosing 93.7 ml/min Est GFR ( Amer) 108.7 ml/min Est GFR (Non-Af Amer) 93.7 ml/min BUN/Creatinine Ratio 38.2 H (10-20) Glucose 184 H (70-99(Fasting)) mg/dl POC Glucose 119 H (70-99) mg/dl Calcium 8.9 (8.5-10.1) mg/dl Phosphorus (2.5-4.9) mg/dl Magnesium 1.4 L (1.7-2.4) mg/dl Random Vancomycin 16.4 (10-20) mcg/ml 12/15/22 Range/Units 11:22 WBC (4.8-10.8) K/ul RBC (4.70-6.10) M/uL Hgb (14.0-18.0) g/dl Hct (42.0-52.0) % MCV (80.0-100.0) fL MCH (25.0-34.0) pg MCHC (32.0-36.0) g/dL RDW Std Deviation (36.4-46.3) fL RDW Coeff of Drew (11.5-14.5) % Plt Count (130-400) K/uL MPV (9.4-12.4) fL Sodium (136-145) mmol/L Potassium (3.5-5.1) mmol/L Chloride (98-107) mmol/L Carbon Dioxide (21-32) mmol/L Anion Gap (3-11) BUN (6-23) mg/dl Creatinine (0.6-1.4) mg/dl Est Cr Clr Drug Dosing ml/min Est GFR ( Amer) ml/min Est GFR (Non-Af Amer) ml/min BUN/Creatinine Ratio (10-20) Glucose (70-99(Fasting)) mg/dl POC Glucose 231 H (70-99) mg/dl Calcium (8.5-10.1) mg/dl Phosphorus (2.5-4.9) mg/dl Magnesium (1.7-2.4) mg/dl Random Vancomycin (10-20) mcg/ml Medications Administered Current Inpatient Medications Acetaminophen (Acetaminophen 325 Mg Tab) 650 mg PO Q4H PRN PRN Reason: Pain or Fever Stop: 01/13/23 11:06 Last Admin: 12/16/22 06:00 Dose: 650 mg Albuterol (Albuterol Hfa 8 Gm Inhaler) 2 puffs INH Q4H PRN PRN Reason: Shortness Of Breath Stop: 01/13/23 11:06 Dextrose (Dextrose 50% 50 Ml Syringe) 25 - 50 ml IV UD PRN; Protocol PRN Reason: Hypoglycemia Protocol Stop: 01/13/23 11:06 Enoxaparin Sodium (Enoxaparin Inj 40 Mg/0.4 Ml Syr) 40 mg SQ QAM [facility]1983 Stop: 01/14/23 08:59 Last Admin: 12/15/22 08:56 Dose: 40 mg Escitalopram Oxalate (Escitalopram Oxalate 20 Mg Tab) 20 mg PO QAM [facility]1983 Stop: 01/13/23 11:06 Last Admin: 12/15/22 08:56 Dose: 20 mg Gabapentin (Gabapentin 300 Mg Cap) 300 mg PO TID [facility]1983 Stop: 01/13/23 13:59 Last Admin: 12/15/22 20:43 Dose: 300 mg Glucagon (Glucagon For Inj 1 Mg Vial) 1 mg SQ UD PRN; Protocol PRN Reason: Hypoglycemia Protocol Stop: 01/13/23 11:06 Glucose (Glucose 10 Tab/Tube) 4 - 8 tab PO UD PRN; Protocol PRN Reason: Hypoglycemia Treatment Stop: 01/13/23 11:06 Glucose (Glucose 40% Gel 15 Gm Tube) 15 - 30 gm PO UD PRN; Protocol PRN Reason: Hypoglycemia Protocol Stop: 01/13/23 11:06 Guaifenesin (Guaifenesin 600 Mg Tabcr) 600 mg PO Q12 [facility]1983 Stop: 01/14/23 10:14 Last Admin: 12/15/22 20:43 Dose: 600 mg Piperacillin Sod/Tazobactam (Sod 3.375 gm/ Dextrose) 115 mls @ 28.75 mls/hr IV Q8H [facility], [facility]; Protocol Stop: 12/21/22 17:29 Last Admin: 12/16/22 06:00 Dose: 29 mls/hr Vancomycin HCl 1,000 mg/ (Sodium Chloride) 270 mls @ 200 mls/hr IV Q12H [facility], [facility]; Protocol Stop: 12/21/22 21:59 Last Infusion: 12/15/22 23:30 Dose: Infused Magnesium Sulfate/Dextrose (Magnesium Sulfate / D5w) 1 gm in 100 mls @ 50 mls/hr IV ONE ONE Stop: 12/16/22 09:16 Insulin Aspart (Insulin Aspart Per Unit) 0 units SC ACHS [facility] Stop: 01/13/23 11:29 Last Admin: 12/15/22 20:44 Dose: 1 units Loratadine (Loratadine 10 Mg Tab) 10 mg PO QAM [facility] Stop: 01/13/23 11:06 Last Admin: 12/15/22 08:55 Dose: 10 mg Magnesium Oxide (Magnesium Oxide 400 Mg Tab) 400 mg PO BID [facility] Stop: 01/13/23 20:59 Last Admin: 12/15/22 20:44 Dose: 400 mg Metoclopramide HCl (Metoclopramide Hcl 5 Mg Tablet) 5 mg PO ACHS [facility]1983 Stop: 01/13/23 11:29 Last Admin: 12/15/22 20:43 Dose: 5 mg Metoprolol Tartrate (Metoprolol Tartrate 25 Mg Tab) 12.5 mg PO BID [facility] Stop: 01/13/23 20:59 Last Admin: 12/15/22 20:52 Dose: Not Given Miscellaneous (Carbohydrates For Hypoglycemia ) 15 - 30 gm PO UD PRN PRN Reason: Hypoglycemia Protocol Stop: 01/13/23 11:06 Miscellaneous Information (Vancomycin Consult Active) 1 each N/A UD PRN PRN Reason: Consult Stop: 01/13/23 09:28 Multivitamins (Multivitamin Tab) 1 tab PO QAM [facility] Stop: 01/14/23 08:59 Last Admin: 12/15/22 08:56 Dose: 1 tab Oxcarbazepine (Oxcarbazepine 150 Mg Tablet) 150 mg PO BID [facility] Stop: 01/13/23 11:06 Last Admin: 12/15/22 20:43 Dose: 150 mg Pantoprazole Sodium (Pantoprazole 40 Mg Tab) [facility] Stop: 01/13/23 11:06 Last Admin: 12/15/22 08:57 Dose: 40 mg Pentoxifylline (Pentoxifylline 400mg Ext Rel Tab) 400 mg PO TID@0800,1600,2000 [facility] Stop: 01/13/23 15:59 Last Admin: 12/15/22 19:48 Dose: 400 mg Risperidone (Risperidone 2 Mg Tablet) 2 mg PO TID [facility] Stop: 01/13/23 13:59 Last Admin: 12/15/22 20:42 Dose: 2 mg Simvastatin (Simvastatin 40 Mg Tab) 40 mg PO HS [facility] Stop: 01/13/23 20:59 Last Admin: 12/15/22 20:42 Dose: 40 mg Trazodone HCl (Trazodone Hcl 50 Mg Tab) 50 mg PO Q24H [facility] Stop: 01/13/23 19:59 Last Admin: 12/15/22 19:48 Dose: 50 mg Umeclidinium [place] (Umeclidinium [place] 62.5mcg/Blister 7 Puffs/Inhaler) [address] [facility] Stop: 01/13/23 11:06 Last Admin: 12/15/22 08:57 Dose: 1 puffs Vitamin D (Cholecalciferol 1,000 Units 25 Mcg Tab) 1,000 units PO QAM [facility] Stop: 01/14/23 08:59 Last Admin: 12/15/22 08:55 Dose: 1,000 units
[2022-12-16 07:31] LABS: Hematocrit (blood only) 28.3 % (42.0-52.0); Hemoglobin 9.3 g/dl (14.0-18.0); Mean Corpuscular Hemoglobin 32.3 pg (25.0-34.0); Mean Corpuscular Hgb Conc 32.9 g/dL (32.0-36.0); Mean Corpuscular Volume 98.3 fL (80.0-100.0); Platelet Count 113 K/uL (130-400); RDW Coefficient of Variation 13.6 % (11.5-14.5); RDW Standard Deviation 49.1 fL (36.4-46.3); Red Blood Count 2.88 M/uL (4.70-6.10); White Blood Count 5.53 K/ul (4.8-10.8)
[2022-12-16 07:43] LABS: Calcium 9.3 mg/dl (8.5-10.1); Creatinine Clr Calc Pharmacy 110.3 ml/min; Est GFR (African American) 115.9 ml/min; Magnesium 1.4 mg/dl (1.7-2.4); Phosphorus 3.9 mg/dl (2.5-4.9); Potassium 4.5 mmol/L (3.5-5.1)
[2022-12-16] MEDS: risperiDONE 2 MG TABLET PO SCH ×3 (08:27→20:33)
[2022-12-16] MEDS: PANTOprazole 40 MG TAB PO SCH (08:27)
[2022-12-16] MEDS: METOPROLOL TARTRATE 25 MG TAB PO SCH ×2 (08:27→20:35)
[2022-12-16] MEDS: UMECLIDINIUM BROMIDE 62.5MCG/BLISTER 7 PUFFS/INHALER INH SCH (08:27)
[2022-12-16] MEDS: OXcarbazepine 150 MG TABLET PO SCH ×2 (08:27→20:32)
[2022-12-16] MEDS: CHOLECALCIFEROL 1,000 UNITS 25 MCG TAB PO SCH (08:28)
[2022-12-16] MEDS: guaiFENesin 600 MG TABCR PO SCH ×2 (08:28→20:32)
[2022-12-16] MEDS: ENOXAPARIN INJ 40 MG/0.4 ML SYR SQ SCH (08:28)
[2022-12-16] MEDS: GABAPENTIN 300 MG CAP PO SCH ×3 (08:28→20:31)
[2022-12-16] MEDS: LORATADINE 10 MG TAB PO SCH (08:28)
[2022-12-16] MEDS: MULTIVITAMIN TAB PO SCH (08:28)
[2022-12-16] MEDS: MAGNESIUM OXIDE 400 MG TAB PO SCH ×2 (08:28→20:31)
[2022-12-16] MEDS: PENTOXIFYLLINE 400MG EXT REL TAB PO SCH ×3 (08:28→20:32)
[2022-12-16] MEDS: METOCLOPRAMIDE HCL 5 MG TABLET PO SCH ×4 (08:28→20:31)
[2022-12-16] MEDS: INSULIN ASPART PER UNIT SC SCH ×4 (08:41→21:04)
[2022-12-16] MEDS: ESCITALOPRAM OXALATE 20 MG TAB PO SCH (08:42)
[2022-12-16] MEDS: FUROSEMIDE INJ 20 MG/2 ML VIAL IV SCH ×2 (09:48→21:05)
--- NOTE | 2022-12-16 10:35 | Consultation Report ---
NEPHROLOGY CONSULTATION NOTE REASON FOR CONSULTATION: Hyponatremia. HISTORY OF PRESENT ILLNESS: The patient is a 67-year-old male with intellectual disability due to cerebral palsy and a resident of [facility] who presented to the hospital 2 days ago with new onset hypoxia, fever. The patient has extensive baseline medical problems including COPD, peripheral vascular disease, type 2 diabetes, sleep apnea, GERD, chronic stasis dermatitis, osteoporosis. The patient was recently admitted to the hospital from 11/24 to 11/30 with a diagnosis of acute hypoxemic respiratory failure and sepsis with underlying pneumonia. He was treated with Unasyn and Levaquin. On admission 3 days ago, his sodium was 134, but since then it started to drop into 129 and 122. Yesterday, he had a chest x-ray done, which shows pulmonary congestion with pulmonary edema after which he received Lasix IV, with that he did increase his urine output and sodium also improved to 126 this morning. Patient is unable to give me any history because of intellectual disability. As per the bedside attendant, patient is eating everything. He is not on any fluid restriction at this time. He is also presumed to have bilateral pneumonia at this time and he is being treated accordingly with broad-spectrum antibiotics. He also has a low magnesium for which he is getting IV magnesium. He has a urine catheter and he is making urine. After the Lasix yesterday, his urine output went up to 2200 mL, but the day prior, it was only 875 mL. Patient vital signs looks normal. He is on 2 liter nasal cannula. PAST MEDICAL AND SURGICAL HISTORY: Includes cerebral palsy with intellectual disability and long-term resident of [facility] facility, COPD, depression, type 2 diabetes, degenerative joint disease, GERD, obstructive sleep apnea, hyperlipidemia, history of hypertension, presence of IVC filter in 1997, peripheral vascular disease, scoliosis, cholecystectomy, tooth extraction, cataract surgery. FAMILY HISTORY: Negative for renal disease or dialysis. SOCIAL HISTORY: The patient is a permanent resident in a personal care facility in a [facility]. He is fully disabled. He uses wheelchair for ambulation. He has severe intellectual disability from cerebral palsy. He is a former smoker. No alcohol. ALLERGIES: Allergy list was reviewed in detail and is as per the H and P and the medicine reconciliation list. MEDICATIONS: Home medication list was reviewed in detail and is as per the reconciliation list. He is not on any diuretics as an outpatient, he does take magnesium supplement. REVIEW OF SYSTEMS: Unable to obtain secondary to cognitive status. PHYSICAL EXAMINATION: GENERAL: Middle-aged white male who is awake and alert. I could not test orientation secondary to intellectual disability. He is cachectic. He looks pale, does not appear to be in overt respiratory distress at rest. HEENT: Mucous membranes moist. NECK: Supple. No jugular venous distention. CHEST: Bilateral decreased breath sounds, occasional crackles. Poor inspiratory effort. CARDIOVASCULAR: S1 and S2, regular. Systolic murmur heard. ABDOMEN: Soft, nontender. EXTREMITIES: Show 1+ edema with some chronic venous stasis changes. VITAL SIGNS: Shows blood pressure 123/79, pulse rate 61, temperature 36.7, 92% on 2 liters nasal cannula. LABORATORY TEST: Blood work showed sodium of 134 on admission 2 days ago. Since then dropped to 122 yesterday evening, but this morning it is slightly higher at 126. Potassium is 4.5, BUN 26, creatinine 0.6, magnesium 1.4. Chest x-ray done yesterday shows clear evidence of cardiomegaly with evidence of congestive heart failure and pulmonary edema and is worse than the day prior. Hemoglobin is 9.3, WBC count is 5.5, platelet count 113. ASSESSMENT AND PLAN: A 67-year-old male with severe intellectual disability, long-term resident of [facility], now admitted with hypoxia and shortness of breath. He developed progressive hyponatremia while in the hospital for which I have been consulted. 1. Hyponatremia: This appears to be hypervolemic hyponatremia given the picture of the x-ray. It is also encouraging to see that after significant increase in the urine output yesterday with IV Lasix, sodium actually went up from 122 to 126. Prior to Lasix, his sodium was actually dropping. I will give him Lasix 20 mg IV now and twice daily and continue to monitor urine output and labs. At this point, I would like to do BMP at least twice daily. I would also add urea 15 grams twice daily to help with the sodium correction. Also put him on fluid restriction 1500 mL per day. 2. Hypoxic respiratory failure, looks like a combination of congestive heart failure/pulmonary edema as well as bilateral pneumonia for which he is getting antibiotics. Now with the addition of IV Lasix and some diuresis, hopefully his breathing will also get slightly better. I will continue to follow the patient. Thank you very much for the consult. Job ID: [id number] [email or web address]
[2022-12-16] MEDS: UREA (UREA-NA) 15 GM PACK PO SCH ×2 (10:58→20:31)
[2022-12-16 18:45] LABS: BUN Creatinine Ratio 56.5 (10-20); Calcium 9.7 mg/dl (8.5-10.1); Creatinine Clr Calc Pharmacy 84.4 ml/min; Est GFR (African American) 103.8 ml/min; Est GFR (Non-African American) 89.5 ml/min; Potassium 4.7 mmol/L (3.5-5.1)
[2022-12-16] MEDS: traZODone HCL 50 MG TAB PO SCH (20:32)
[2022-12-16] MEDS: SIMVASTATIN 40 MG TAB PO SCH (20:32)
[2022-12-17] MEDS: PIPERACILLIN/TAZOBACTAM 3.375 GM in DEXTROSE 5% 100 ML IV SCH ×3 (05:46→20:41)
[2022-12-17] MEDS: ACETAMINOPHEN 325 MG TAB PO PRN (06:04)
--- NOTE | 2022-12-17 07:02 | Hospitalist Progress Note ---
Date of Service December 17, 2022 Assessment & Plan (1) Bilateral pneumonia: Plan: 67 y/o male with complicated medical history of DM2, COPD, multiple admissions for pneumonia and hypoxia with recent discharge on 11/30/22 for same, PAF, aortic stenosis, PVD, and chronic ambulatory dysfunction, typically using a wheelchair at baseline who presented to the ED with new fever and hypoxia. Work-up in the ED seems most consistent with recurrent pneumonia/ hosp-acquired. Pt was evaluated for aspiration during last admission, which was negative, and caregiver denies recent witnessed aspiration episodes. Concern for a hospital-acquired pneumonia with recent admission to [facility] then discharge to [facility] so broad-spectrum antibiotics started in the ED. - Admitted to PCU - Continue broad-spectrum antibiotics - Zosyn and Vancomycin - hypoxic 84-86% on RA on admission and required 2L O2 - crackles on left side noted - repeat CXR - significant for pulm. vasc. congestion - added guafenesin, flutter valve, IS - discussed w/ RN - Minced and moist diet with thin liquids as per facility - started IV lasix for pulm. congestion, fluid overload - discussed w/ nephro (2) Hypoxemia: Plan: See plan for #1 (3) Hypomagnesemia: Plan: Noted to have marked hypomag with a level of 0.9 in ED - has a history of hypomag in the past for which he is on oral mag oxide 200 mg BID at baselined - Replete and monitor Hyponatremia Na 129 on 12/15 Na 122 on 12/15 pm Now Na 133 Discussed with nephrology, likely hypervolemic Nephrology consulted - continue with IV lasix, urea stopped -cont. to monitor BMP, repeat BMP AM (4) Pressure ulcer of coccygeal region, stage 3: Plan: Consult wound care nurse - documentation from facility about what dressings pt is currently using placed on the chart for reference (5) Diabetes mellitus, type 2: Plan: Hold oral meds while admitted Diabetic diet Insulin sliding scale (6) Cerebral palsy: (7) PAF (paroxysmal atrial fibrillation): (8) GERD (gastroesophageal reflux disease): (9) Aortic stenosis: (10) Chronic obstructive pulmonary disease: (11) PVD (peripheral vascular disease): (12) Intellectual disability: Plan PT/OT consults - of note, pt did not seem to do well at [facility] after last admission, refused to participate per staff. Code Status: Full code per caregiver DVT Prophylaxis: Lovenox Admission and Anticipated Discharge Date Admission Date: December 14, 2022 Subjective Patient seen in follow-up of hypoxia, pneumonia, recent admission for pneumonia Patient with intellectual disability, now treated for hospital-acquired pneumon ia, hypomagnesemia, hyponatremia, fluid overload Laying /sitting up in bed in no acute distress, he is awake and alert, 1:1 sitter present at the bedside Patient appears comfortable, currently on 2L of suppl. O2 Reports minimal cough Currently no other complaints, also somewhat difficult to get full history /ROS from the patient Review of Systems Review of Systems: Unobtainable due to cognitive status Physical Exam Physical Exam: Constitutional:L + cachectic M; no acute distress Eyes: + anicteric sclera e Neck: supple Respiratory: no respiratory dis tress and no labor ed breathing Ausc ultation: + crackl es (left > right b ut much improved f rom previous exam) Cardiovascular:L Rate/Rhythm: regul ar rate and regula r rhythm Heart So unds: + murmur, E xtremities: no ped al edema Gastrointestinal ( Abdomen): normal bowel soun ds; abdomen not di stended, soft, non tender Musculoskeletal: Head/Neck/Chest: n ormocephalic and n rigoberto supple Skin: stasis changes bi lateral LE Neuro/Psych: awake and alert, p leasant, able to s omewhat answer sim ple questions, mov es all extremities Results & Data Results & Data ([facility]) Vital Signs (Past 12 Hours) Vital Signs Temp Pulse Resp BP Pulse Ox O2 Del Method O2 Flow Rate 12/17/22 05:45 36.7 C 81 17 115/65 97 Nasal Cannula 2 12/17/22 01:21 93 Nasal Cannula 2 12/17/22 01:01 36.7 C 67 16 103/62 88 L Room Air 12/16/22 20:24 36.8 C 61 16 116/69 93 Room Air Laboratory Results 12/17/22 12/17/22 12/16/22 Range/Units 07:09 06:30 20:28 Sodium 133 L (136-145) mmol/L Potassium 4.3 (3.5-5.1) mmol/L Chloride 91 L (98-107) mmol/L Carbon Dioxide 38 H (21-32) mmol/L Anion Gap 4 (3-11) BUN 54 H (6-23) mg/dl Creatinine 0.75 (0.6-1.4) mg/dl Est Cr Clr Drug Dosing 87.5 ml/min Est GFR ( Amer) 109.2 ml/min Est GFR (Non-Af Amer) 94.3 ml/min BUN/Creatinine Ratio 72.0 H (10-20) Glucose 281 H (70-99(Fasting)) mg/dl POC Glucose 269 H 311 H* (70-99) mg/dl Calcium 9.9 (8.5-10.1) mg/dl Phosphorus 5.6 H (2.5-4.9) mg/dl Magnesium 1.5 L (1.7-2.4) mg/dl 12/16/22 12/16/22 12/16/22 Range/Units 17:52 16:27 11:28 Sodium 129 L (136-145) mmol/L Potassium 4.7 (3.5-5.1) mmol/L Chloride 89 L (98-107) mmol/L Carbon Dioxide 38 H (21-32) mmol/L Anion Gap 2 L (3-11) BUN 48 H D (6-23) mg/dl Creatinine 0.85 (0.6-1.4) mg/dl Est Cr Clr Drug Dosing 84.4 ml/min Est GFR ( Amer) 103.8 ml/min Est GFR (Non-Af Amer) 89.5 ml/min BUN/Creatinine Ratio 56.5 H (10-20) Glucose 168 H (70-99(Fasting)) mg/dl POC Glucose 91 238 H (70-99) mg/dl Calcium 9.7 (8.5-10.1) mg/dl Phosphorus (2.5-4.9) mg/dl Magnesium (1.7-2.4) mg/dl Medications Administered Current Inpatient Medications Acetaminophen (Acetaminophen 325 Mg Tab) 650 mg PO Q4H PRN PRN Reason: Pain or Fever Stop: 01/13/23 11:06 Last Admin: 12/17/22 06:04 Dose: 650 mg Albuterol (Albuterol Hfa 8 Gm Inhaler) 2 puffs INH Q4H PRN PRN Reason: Shortness Of Breath Stop: 01/13/23 11:06 Dextrose (Dextrose 50% 50 Ml Syringe) 25 - 50 ml IV UD PRN; Protocol PRN Reason: Hypoglycemia Protocol Stop: 01/13/23 11:06 Enoxaparin Sodium (Enoxaparin Inj 40 Mg/0.4 Ml Syr) 40 mg SQ QAM [facility] Stop: 01/14/23 08:59 Last Admin: 12/16/22 08:28 Dose: 40 mg Escitalopram Oxalate (Escitalopram Oxalate 20 Mg Tab) 20 mg PO QAM [facility] Stop: 01/13/23 11:06 Last Admin: 12/16/22 08:42 Dose: 20 mg Furosemide (Furosemide Inj 20 Mg/2 Ml Vial) 20 mg IV Q12H [facility] Stop: 01/15/23 09:14 Last Admin: 12/16/22 21:05 Dose: 20 mg Gabapentin (Gabapentin 300 Mg Cap) 300 mg PO TID [facility] Stop: 01/13/23 13:59 Last Admin: 12/16/22 20:31 Dose: 300 mg Glucagon (Glucagon For Inj 1 Mg Vial) 1 mg SQ UD PRN; Protocol PRN Reason: Hypoglycemia Protocol Stop: 01/13/23 11:06 Glucose (Glucose 10 Tab/Tube) 4 - 8 tab PO UD PRN; Protocol PRN Reason: Hypoglycemia Treatment Stop: 01/13/23 11:06 Glucose (Glucose 40% Gel 15 Gm Tube) 15 - 30 gm PO UD PRN; Protocol PRN Reason: Hypoglycemia Protocol Stop: 01/13/23 11:06 Guaifenesin (Guaifenesin 600 Mg Tabcr) 600 mg PO Q12 [facility] Stop: 01/14/23 10:14 Last Admin: 12/16/22 20:32 Dose: 600 mg Piperacillin Sod/Tazobactam (Sod 3.375 gm/ Dextrose) 115 mls @ 28.75 mls/hr IV Q8H [facility]; Protocol Stop: 12/21/22 17:29 Last Admin: 12/17/22 05:46 Dose: 28.8 mls/hr Insulin Aspart (Insulin Aspart Per Unit) 0 units SC ACHS [facility] Stop: 01/13/23 11:29 Last Admin: 12/16/22 21:04 Dose: 6 units Loratadine (Loratadine 10 Mg Tab) 10 mg PO QAM [facility] Stop: 01/13/23 11:06 Last Admin: 12/16/22 08:28 Dose: 10 mg Magnesium Oxide (Magnesium Oxide 400 Mg Tab) 400 mg PO BID [facility] Stop: 01/13/23 20:59 Last Admin: 12/16/22 20:31 Dose: 400 mg Metoclopramide HCl (Metoclopramide Hcl 5 Mg Tablet) 5 mg PO ACHS [facility] Stop: 01/13/23 11:29 Last Admin: 12/16/22 20:31 Dose: 5 mg Metoprolol Tartrate (Metoprolol Tartrate 25 Mg Tab) 12.5 mg PO BID [facility] Stop: 01/13/23 20:59 Last Admin: 12/16/22 20:35 Dose: Not Given Miscellaneous (Carbohydrates For Hypoglycemia ) 15 - 30 gm PO UD PRN PRN Reason: Hypoglycemia Protocol Stop: 01/13/23 11:06 Multivitamins (Multivitamin Tab) 1 tab PO QAM [facility] Stop: 01/14/23 08:59 Last Admin: 12/16/22 08:28 Dose: 1 tab Oxcarbazepine (Oxcarbazepine 150 Mg Tablet) 150 mg PO BID [facility] Stop: 01/13/23 11:06 Last Admin: 12/16/22 20:32 Dose: 150 mg Pantoprazole Sodium (Pantoprazole 40 Mg Tab) 40 mg PO QAM [facility] Stop: 01/13/23 11:06 Last Admin: 12/16/22 08:27 Dose: 40 mg Pentoxifylline (Pentoxifylline 400mg Ext Rel Tab) 400 mg PO TID@0800,1600,2000 [facility] Stop: 01/13/23 15:59 Last Admin: 12/16/22 20:32 Dose: 400 mg Risperidone (Risperidone 2 Mg Tablet) 2 mg PO TID [facility] Stop: 01/13/23 13:59 Last Admin: 12/16/22 20:33 Dose: 2 mg Simvastatin (Simvastatin 40 Mg Tab) 40 mg PO HS [facility] Stop: 01/13/23 20:59 Last Admin: 12/16/22 20:32 Dose: 40 mg Trazodone HCl (Trazodone Hcl 50 Mg Tab) 50 mg PO Q24H [facility] Stop: 01/13/23 19:59 Last Admin: 12/16/22 20:32 Dose: 50 mg Umeclidinium [place] (Umeclidinium [place] 62.5mcg/Blister 7 Puffs/Inhaler) 1 puffs INH QAM [facility] Stop: 01/13/23 11:06 Last Admin: 12/16/22 08:27 Dose: 1 puffs Urea (Urea (Urea-Na) 15 Gm Pack) 15 gm PO BID [facility] Stop: 01/15/23 09:29 Last Admin: 12/16/22 20:31 Dose: 15 gm Vitamin D (Cholecalciferol 1,000 Units 25 Mcg Tab) 1,000 units PO QAM [facility] Stop: 01/14/23 08:59 Last Admin: 12/16/22 08:28 Dose: 1,000 units
[2022-12-17 07:42] LABS: Calcium 9.9 mg/dl (8.5-10.1); Creatinine Clr Calc Pharmacy 87.5 ml/min; Est GFR (African American) 109.2 ml/min; Est GFR (Non-African American) 94.3 ml/min; Magnesium 1.5 mg/dl (1.7-2.4); Phosphorus 5.6 mg/dl (2.5-4.9); Potassium 4.3 mmol/L (3.5-5.1)
[2022-12-17] MEDS: guaiFENesin 600 MG TABCR PO SCH ×2 (08:25→20:40)
[2022-12-17] MEDS: UMECLIDINIUM BROMIDE 62.5MCG/BLISTER 7 PUFFS/INHALER INH SCH (08:25)
[2022-12-17] MEDS: UREA (UREA-NA) 15 GM PACK PO SCH (08:25)
[2022-12-17] MEDS: METOPROLOL TARTRATE 25 MG TAB PO SCH ×2 (08:26→20:41)
[2022-12-17] MEDS: OXcarbazepine 150 MG TABLET PO SCH ×2 (08:26→20:39)
[2022-12-17] MEDS: PANTOprazole 40 MG TAB PO SCH (08:26)
[2022-12-17] MEDS: MULTIVITAMIN TAB PO SCH (08:26)
[2022-12-17] MEDS: risperiDONE 2 MG TABLET PO SCH ×3 (08:26→20:38)
[2022-12-17] MEDS: ENOXAPARIN INJ 40 MG/0.4 ML SYR SQ SCH (08:26)
[2022-12-17] MEDS: PENTOXIFYLLINE 400MG EXT REL TAB PO SCH ×3 (08:27→20:38)
[2022-12-17] MEDS: ESCITALOPRAM OXALATE 20 MG TAB PO SCH (08:27)
[2022-12-17] MEDS: GABAPENTIN 300 MG CAP PO SCH ×3 (08:27→20:38)
[2022-12-17] MEDS: METOCLOPRAMIDE HCL 5 MG TABLET PO SCH ×4 (08:27→20:39)
[2022-12-17] MEDS: FUROSEMIDE INJ 20 MG/2 ML VIAL IV SCH ×2 (08:27→20:41)
[2022-12-17] MEDS: MAGNESIUM OXIDE 400 MG TAB PO SCH ×2 (08:27→20:40)
[2022-12-17] MEDS: LORATADINE 10 MG TAB PO SCH (08:27)
[2022-12-17] MEDS: CHOLECALCIFEROL 1,000 UNITS 25 MCG TAB PO SCH (08:27)
[2022-12-17] MEDS: INSULIN ASPART PER UNIT SC SCH ×4 (08:33→20:41)
[2022-12-17] MEDS ORDERED: MAGNESIUM SULFATE / D5W 1 GM/100 ML BAG IV ONE (09:08)
--- NOTE | 2022-12-17 09:26 | Nephrology Progress Note ---
Date of Service December 17, 2022 Assessment & Plan Admission and Anticipated Discharge Date Admission Date: December 14, 2022 Subjective S--no new issues. very good urine output with iv lasix. na went up also. \ PHYSICAL EXAMINATION: GENERAL: Middle-aged white male who is awake and alert. I could not test orientation secondary to intellectual disability. He is cachectic. He looks pale, does not appear to be in overt respiratory distress at rest. HEENT: Mucous membranes moist. NECK: Supple. No jugular venous distention. CHEST: Bilateral decreased breath sounds, occasional crackles. Poor inspira tory effort. CARDIOVASCULAR: S1 and S2, regular. Systolic murmur heard. ABDOMEN: Soft, nontender. EXTREMITIES: Show 1+ edema with some chronic venous stasis changes. VITAL SIGNS: Shows blood pressure 123/79, pulse rate 61, temperature 36.7, 92% on 2 liters nasal cannula. LABORATORY TEST:na now 133. Chest x-ray done yesterday shows clear evidence of cardiomegaly with evidence of congestive heart failure and pulmonary edema and is worse than the day prior. Hemoglobin is 9.3, WBC count is 5.5, platelet count 113. ASSESSMENT AND PLAN: A 67-year-old male with severe intellectual disability, long-term resident of [facility], now admitted with hypoxia and shortness of breath. He developed progressive hyponatremia while in the hospital for which I have been consulted. 1. Hyponatremia: This appears to be hypervolemic hyponatremia given the picture of the x-ray. It is also encouraging to see that after significant increase in the urine output yesterday with IV Lasix, sodium actually went up t0 133 Prior to Lasix, his sodium was actually dropping. Continue Lasix 20 mg IV twice daily and continue to monitor urine output and labs. At this point, I would like to do BMP at least daily. D/c Urea. fluid restriction 1500 mL per day. 2. Hypoxic respiratory failure, looks like a combination of congestive heart failure/pulmonary edema as well as bilateral pneumonia for which he is getting antibiotics. Now with the addition of IV Lasix and some diuresis, hopefully his breathing will also get slightly better. I will continue to follow the patient. Results & Data ([facility]) Vital Signs (Past 12 Hours) Vital Signs Temp Pulse Pulse Resp BP Pulse Ox O2 Del Method 12/17/22 07:24 67 12/17/22 07:24 Nasal Cannula 12/17/22 07:13 36.7 C 58 L 16 128/66 100 Nasal Cannula 12/17/22 05:45 36.7 C 81 17 115/65 97 Nasal Cannula 12/17/22 01:21 93 Nasal Cannula 12/17/22 01:01 36.7 C 67 16 103/62 88 L Room Air O2 Flow Rate 12/17/22 07:24 12/17/22 07:24 2 12/17/22 07:13 2 12/17/22 05:45 2 12/17/22 01:21 2 12/17/22 01:01
[2022-12-17] MEDS: LANTUS PER UNIT CHARGE SQ SCH (12:14)
[2022-12-17] MEDS: SIMVASTATIN 40 MG TAB PO SCH (20:39)
[2022-12-17] MEDS: traZODone HCL 50 MG TAB PO SCH (20:40)
[2022-12-18] MEDS: PIPERACILLIN/TAZOBACTAM 3.375 GM in DEXTROSE 5% 100 ML IV SCH ×2 (06:02→14:02)
[2022-12-18 06:34] LABS: Hematocrit (blood only) 32.9 % (42.0-52.0); Hemoglobin 10.9 g/dl (14.0-18.0); Mean Corpuscular Hemoglobin 32.9 pg (25.0-34.0); Mean Corpuscular Hgb Conc 33.1 g/dL (32.0-36.0); Mean Corpuscular Volume 99.4 fL (80.0-100.0); Mean Platelet Volume 10.5 fL (9.4-12.4); Platelet Count 157 K/uL (130-400); RDW Coefficient of Variation 13.9 % (11.5-14.5); RDW Standard Deviation 51.3 fL (36.4-46.3); Red Blood Count 3.31 M/uL (4.70-6.10); White Blood Count 4.02 K/ul (4.8-10.8)
[2022-12-18 07:25] LABS: BUN Creatinine Ratio 58.4 (10-20); Calcium 10.4 mg/dl (8.5-10.1); Creatinine Clr Calc Pharmacy 73.7 ml/min; Est GFR (African American) 101.8 ml/min; Est GFR (Non-African American) 87.9 ml/min; Magnesium 1.7 mg/dl (1.7-2.4); Phosphorus 4.7 mg/dl (2.5-4.9); Potassium 4.2 mmol/L (3.5-5.1)
[2022-12-18] MEDS: OXcarbazepine 150 MG TABLET PO SCH ×2 (08:42→20:53)
[2022-12-18] MEDS: PANTOprazole 40 MG TAB PO SCH (08:42)
[2022-12-18] MEDS: guaiFENesin 600 MG TABCR PO SCH ×2 (08:42→20:52)
[2022-12-18] MEDS: MAGNESIUM OXIDE 400 MG TAB PO SCH ×2 (08:42→20:52)
[2022-12-18] MEDS: ESCITALOPRAM OXALATE 20 MG TAB PO SCH (08:42)
[2022-12-18] MEDS: MULTIVITAMIN TAB PO SCH (08:43)
[2022-12-18] MEDS: GABAPENTIN 300 MG CAP PO SCH ×3 (08:43→20:51)
[2022-12-18] MEDS: risperiDONE 2 MG TABLET PO SCH ×3 (08:43→20:52)
[2022-12-18] MEDS: LORATADINE 10 MG TAB PO SCH (08:43)
[2022-12-18] MEDS: CHOLECALCIFEROL 1,000 UNITS 25 MCG TAB PO SCH (08:43)
[2022-12-18] MEDS: PENTOXIFYLLINE 400MG EXT REL TAB PO SCH ×3 (08:43→20:51)
[2022-12-18] MEDS: METOCLOPRAMIDE HCL 5 MG TABLET PO SCH ×4 (08:43→20:53)
[2022-12-18] MEDS: ENOXAPARIN INJ 40 MG/0.4 ML SYR SQ SCH (08:44)
[2022-12-18] MEDS: METOPROLOL TARTRATE 25 MG TAB PO SCH ×2 (08:44→20:49)
[2022-12-18] MEDS: UMECLIDINIUM BROMIDE 62.5MCG/BLISTER 7 PUFFS/INHALER INH SCH (08:44)
--- NOTE | 2022-12-18 08:44 | Hospitalist Progress Note ---
Date of Service December 18, 2022 Assessment & Plan (1) Bilateral pneumonia: Plan: 67 y/o male with complicated medical history of DM2, COPD, multiple admissions for pneumonia and hypoxia with recent discharge on 11/30/22 for same, PAF, aortic stenosis, PVD, and chronic ambulatory dysfunction, typically using a wheelchair at baseline who presented to the ED with new fever and hypoxia. Work-up in the ED seems most consistent with recurrent pneumonia/ hosp-acquired. Pt was evaluated for aspiration during last admission, which was negative, and caregiver denies recent witnessed aspiration episodes. Concern for a hospital-acquired pneumonia with recent admission to [facility] then discharge to [facility] so broad-spectrum antibiotics started in the ED. - Admitted to PCU - Continued broad-spectrum antibiotics - Zosyn and Vancomycin, vanco stopped - hypoxic 84-86% on RA on admission and required 2L O2 - crackles on left side noted - repeat CXR - significant for pulm. vasc. congestion - added guafenesin, flutter valve, IS - discussed w/ RN - Minced and moist diet with thin liquids as per facility - started IV lasix for pulm. congestion, fluid overload - discussed w/ nephro 12/18 Appears that pt diuresed quite a bit, Na much improved and bicarb up Will obtain procalcitonin, will repeat chest x-ray to further assess Pt reports some abd. discomfort -even though on physical exam abdomen is soft, and per one-on-one sitter, patient has been having good appetite, it is difficult to obtain detailed history from the patient with intel. disability - will obtain KUB (2) Hypoxemia: Plan: See plan for #1 (3) Hypomagnesemia: Plan: Noted to have marked hypomag with a level of 0.9 in ED - has a history of hypomag in the past for which he is on oral mag oxide 200 mg BID at baselined - Replete and monitor Hyponatremia Na 129 on 12/15 Na 122 on 12/15 pm Na 133 on 12/17 Now Na 139 Discussed with nephrology, likely hypervolemic Nephrology consulted - continued with IV lasix, urea stopped - bicarb now elevated and Na up as well, stop lasix (4) Pressure ulcer of coccygeal region, stage 3: Plan: Consult wound care nurse - documentation from facility about what dressings pt is currently using placed on the chart for reference (5) Diabetes mellitus, type 2: Plan: Hold oral meds while admitted Diabetic diet Insulin sliding scale (6) Cerebral palsy: (7) PAF (paroxysmal atrial fibrillation): (8) GERD (gastroesophageal reflux disease): (9) Aortic stenosis: (10) Chronic obstructive pulmonary disease: (11) PVD (peripheral vascular disease): (12) Intellectual disability: Plan PT/OT consults - of note, pt did not seem to do well at [facility] after last admission, refused to participate per staff. Code Status: Full code per caregiver DVT Prophylaxis: Lovenox Admission and Anticipated Discharge Date Admission Date: December 14, 2022 Subjective Patient seen in follow-up of hypoxia, pneumonia, recent admission for pneumonia Patient with intellectual disability, now treated for hospital-acquired pneumonia, hypomagnesemia, hyponatremia, fluid overload Laying /sitting up in bed in no acute distress, he is awake and alert, 1:1 sitter present at the bedside Patient appears comfortable, currently on 2L of suppl. O2 Reports minimal cough Reports some epigastric discomfort When asked about appetite, patient grimaces and appears that she is not appetite. However sitter present at the bedside says that he has been eating everything the whole time. We will obtain KUB somewhat difficult to get full history /ROS from the patient due to his intellectual disability CXR - pending, procalcitonin pending Review of Systems Review of Systems: All systems reviewed & are unremarkable except as noted in Subjective Physical Exam Physical Exam: BConstitutional:L + cachectic M; no acute distress Eyes: + anicteric sclera e Neck: supple Respiratory: no respiratory dis tress and no labor ed breathing Ausc ultation: + minima l crackles (left > right, but much i mproved from previ ous exam) Cardiovascular:L Rate/Rhythm: regul ar rate and regula r rhythm Heart So unds: + murmur, E xtremities: no ped al edema Gastrointestinal ( Abdomen): normal bowel soun ds; abdomen not di stended, soft, non tender Musculoskeletal: Head/Neck/Chest: n ormocephalic and n rigoberto supple Skin: stasis changes bi lateral LE Neuro/Psych: awake and alert, p leasant, able to s omewhat answer sim ple questions, mov es all extremities Results & Data Results & Data ([facility]) Vital Signs (Past 12 Hours) Vital Signs Temp Pulse Pulse Resp BP Pulse Ox O2 Del Method 12/18/22 07:00 69 12/18/22 07:00 Nasal Cannula 12/18/22 06:51 36.7 C 65 16 125/67 94 Nasal Cannula 12/18/22 03:00 36.4 C L 60 16 101/63 96 Room Air O2 Flow Rate 12/18/22 07:00 12/18/22 07:00 2 12/18/22 06:51 2 12/18/22 03:00 Laboratory Results 12/18/22 12/18/22 12/18/22 Range/Units 07:16 05:59 05:59 WBC 4.02 L (4.8-10.8) K/ul RBC 3.31 L (4.70-6.10) M/uL Hgb 10.9 L (14.0-18.0) g/dl Hct 32.9 L (42.0-52.0) % MCV 99.4 (80.0-100.0) fL MCH 32.9 (25.0-34.0) pg MCHC 33.1 (32.0-36.0) g/dL RDW Std Deviation 51.3 H (36.4-46.3) fL RDW Coeff of Drew 13.9 (11.5-14.5) % Plt Count 157 (130-400) K/uL MPV 10.5 (9.4-12.4) fL Sodium 139 (136-145) mmol/L Potassium 4.2 (3.5-5.1) mmol/L Chloride 91 L (98-107) mmol/L Carbon Dioxide 44 H* (21-32) mmol/L Anion Gap 4 (3-11) BUN 52 H (6-23) mg/dl Creatinine 0.89 (0.6-1.4) mg/dl Est Cr Clr Drug Dosing 73.7 ml/min Est GFR ( Amer) 101.8 ml/min Est GFR (Non-Af Amer) 87.9 ml/min BUN/Creatinine Ratio 58.4 H (10-20) Glucose 224 H (70-99(Fasting)) mg/dl POC Glucose 223 H (70-99) mg/dl Calcium 10.4 H (8.5-10.1) mg/dl Phosphorus 4.7 (2.5-4.9) mg/dl Magnesium 1.7 (1.7-2.4) mg/dl 12/17/22 12/17/22 12/17/22 Range/Units 20:08 16:27 11:23 WBC (4.8-10.8) K/ul RBC (4.70-6.10) M/uL Hgb (14.0-18.0) g/dl Hct (42.0-52.0) % MCV (80.0-100.0) fL MCH (25.0-34.0) pg MCHC (32.0-36.0) g/dL RDW Std Deviation (36.4-46.3) fL RDW Coeff of Drew (11.5-14.5) % Plt Count (130-400) K/uL MPV (9.4-12.4) fL Sodium (136-145) mmol/L Potassium (3.5-5.1) mmol/L Chloride (98-107) mmol/L Carbon Dioxide (21-32) mmol/L Anion Gap (3-11) BUN (6-23) mg/dl Creatinine (0.6-1.4) mg/dl Est Cr Clr Drug Dosing ml/min Est GFR ( Amer) ml/min Est GFR (Non-Af Amer) ml/min BUN/Creatinine Ratio (10-20) Glucose (70-99(Fasting)) mg/dl POC Glucose 100 H 123 H 267 H (70-99) mg/dl Calcium (8.5-10.1) mg/dl Phosphorus (2.5-4.9) mg/dl Magnesium (1.7-2.4) mg/dl Medications Administered Current Inpatient Medications Acetaminophen (Acetaminophen 325 Mg Tab) 650 mg PO Q4H PRN PRN Reason: Pain or Fever Stop: 01/13/23 11:06 Last Admin: 12/17/22 06:04 Dose: 650 mg Albuterol (Albuterol Hfa 8 Gm Inhaler) 2 puffs INH Q4H PRN PRN Reason: Shortness Of Breath Stop: 01/13/23 11:06 Dextrose (Dextrose 50% 50 Ml Syringe) 25 - 50 ml IV UD PRN; Protocol PRN Reason: Hypoglycemia Protocol Stop: 01/13/23 11:06 Enoxaparin Sodium (Enoxaparin Inj 40 Mg/0.4 Ml Syr) 40 mg SQ QAM [facility] Stop: 01/14/23 08:59 Last Admin: 12/17/22 08:26 Dose: 40 mg Escitalopram Oxalate (Escitalopram Oxalate 20 Mg Tab) 20 mg PO QAM [facility] Stop: 01/13/23 11:06 Last Admin: 12/17/22 08:27 Dose: 20 mg Furosemide (Furosemide Inj 20 Mg/2 Ml Vial) 20 mg IV Q12H [facility] Stop: 01/15/23 09:14 Last Admin: 12/17/22 20:41 Dose: 20 mg Gabapentin (Gabapentin 300 Mg Cap) 300 mg PO TID [facility] Stop: 01/13/23 13:59 Last Admin: 12/17/22 20:38 Dose: 300 mg Glucagon (Glucagon For Inj 1 Mg Vial) 1 mg SQ UD PRN; Protocol PRN Reason: Hypoglycemia Protocol Stop: 01/13/23 11:06 Glucose (Glucose 10 Tab/Tube) 4 - 8 tab PO UD PRN; Protocol PRN Reason: Hypoglycemia Treatment Stop: 01/13/23 11:06 Glucose (Glucose 40% Gel 15 Gm Tube) 15 - 30 gm PO UD PRN; Protocol PRN Reason: Hypoglycemia Protocol Stop: 01/13/23 11:06 Guaifenesin (Guaifenesin 600 Mg Tabcr) 600 mg PO Q12 [facility] Stop: 01/14/23 10:14 Last Admin: 12/17/22 20:40 Dose: 600 mg Piperacillin Sod/Tazobactam (Sod 3.375 gm/ Dextrose) 115 mls @ 28.75 mls/hr IV Q8H [facility]; Protocol Stop: 12/21/22 17:29 Last Admin: 12/18/22 06:02 Dose: 28.8 mls/hr Insulin Aspart (Insulin Aspart Per Unit) 0 units SC ACHS [facility] Stop: 01/13/23 11:29 Last Admin: 12/17/22 20:41 Dose: Not Given Insulin Glargine (Lantus Per Unit Charge) 10 units SQ DAILY [facility] Stop: 01/16/23 10:44 Last Admin: 12/17/22 12:14 Dose: 10 units Loratadine (Loratadine 10 Mg Tab) 10 mg PO QAM [facility] Stop: 01/13/23 11:06 Last Admin: 12/17/22 08:27 Dose: 10 mg Magnesium Oxide (Magnesium Oxide 400 Mg Tab) 400 mg PO BID [facility] Stop: 01/13/23 20:59 Last Admin: 12/17/22 20:40 Dose: 400 mg Metoclopramide HCl (Metoclopramide Hcl 5 Mg Tablet) 5 mg PO ACHS [facility] Stop: 01/13/23 11:29 Last Admin: 12/17/22 20:39 Dose: 5 mg Metoprolol Tartrate (Metoprolol Tartrate 25 Mg Tab) 12.5 mg PO BID [facility] Stop: 01/13/23 20:59 Last Admin: 12/17/22 20:41 Dose: 12.5 mg Miscellaneous (Carbohydrates For Hypoglycemia ) 15 - 30 gm PO UD PRN PRN Reason: Hypoglycemia Protocol Stop: 01/13/23 11:06 Multivitamins (Multivitamin Tab) 1 tab PO QAM [facility] Stop: 01/14/23 08:59 Last Admin: 12/17/22 08:26 Dose: 1 tab Oxcarbazepine (Oxcarbazepine 150 Mg Tablet) 150 mg PO BID [facility] Stop: 01/13/23 11:06 Last Admin: 12/17/22 20:39 Dose: 150 mg Pantoprazole Sodium (Pantoprazole 40 Mg Tab) 40 mg PO QAM [facility] Stop: 01/13/23 11:06 Last Admin: 12/17/22 08:26 Dose: 40 mg Pentoxifylline (Pentoxifylline 400mg Ext Rel Tab) 400 mg PO TID@0800,1600,2000 [facility] Stop: 01/13/23 15:59 Last Admin: 12/17/22 20:38 Dose: 400 mg Risperidone (Risperidone 2 Mg Tablet) 2 mg PO TID [facility] Stop: 01/13/23 13:59 Last Admin: 12/17/22 20:38 Dose: 2 mg Simvastatin (Simvastatin 40 Mg Tab) 40 mg PO HS [facility] Stop: 01/13/23 20:59 Last Admin: 12/17/22 20:39 Dose: 40 mg Trazodone HCl (Trazodone Hcl 50 Mg Tab) 50 mg PO Q24H [facility] Stop: 01/13/23 19:59 Last Admin: 12/17/22 20:40 Dose: 50 mg Umeclidinium [place] (Umeclidinium [place] 62.5mcg/Blister 7 Puffs/Inhaler) 1 puffs INH [facility] Stop: 01/13/23 11:06 Last Admin: 12/17/22 08:25 Dose: 1 puffs Vitamin D (Cholecalciferol 1,000 Units 25 Mcg Tab) 1,000 units PO [facility] Stop: 01/14/23 08:59 Last Admin: 12/17/22 08:27 Dose: 1,000 units
[2022-12-18] MEDS: INSULIN ASPART PER UNIT SC SCH ×4 (08:56→20:35)
[2022-12-18] MEDS: LANTUS PER UNIT CHARGE SQ SCH (08:57)
--- NOTE | 2022-12-18 09:54 | Nephrology Progress Note ---
Date of Service December 18, 2022 Assessment & Plan Admission and Anticipated Discharge Date Admission Date: December 14, 2022 Subjective Subjective S--no new issues. very good urine output 2900 ml urine \ PHYSICAL EXAMINATION: GENERAL: Middle-aged white male who is awake and alert. I could not test orientation secondary to intellectual disability. He is cachectic. He looks pale, does not appear to be in overt respiratory distress at rest. HEENT: Mucous membranes moist. NECK: Supple. No jugular venous distention. CHEST: Bilateral decreased breath sounds, occasional crackles. Poor inspiratory effort. CARDIOVASCULAR: S1 and S2, regular. Systolic murmur heard. ABDOMEN: Soft, nontender. EXTREMITIES: No edema w LABORATORY TEST:na now 133. Chest x-ray done yesterday shows clear evidence of cardiomegaly with evidence of congestive heart failure and pulmonary edema and is worse than the day prior. Hemoglobin is 9.3, WBC count is 5.5, platelet count 113. ASSESSMENT AND PLAN: A 67-year-old male with severe intellectual disability, long-term resident of [facility], now admitted with hypoxia and shortness of breath. He developed progressive hyponatremia while in the hospital for which I have been consulted. 1. Hyponatremia: This was hypervolemic hyponatremia given the picture of the x-ray. Na now normal after few days of good diuresis At this point, I would like to do BMP at least daily. Fluid restriction 2000 mL per day. No Iv lasix today--he had enough diuresis and now having high bicarb. 2. Hypoxic respiratory failure, looks like a combination of congestive heart failure/pulmonary edema as well as bilateral pneumonia for which he is getting antibiotics. Now with the addition of IV Lasix and some diuresis, hopefully his breathing will also get slightly better. I will continue to follow the patient. Results & Data ([facility]) Vital Signs (Past 12 Hours) Vital Signs Temp Pulse Pulse Resp BP Pulse Ox O2 Del Method 12/18/22 07:00 69 12/18/22 07:00 Nasal Cannula 12/18/22 06:51 36.7 C 65 16 125/67 94 Nasal Cannula 12/18/22 03:00 36.4 C L 60 16 101/63 96 Room Air O2 Flow Rate 12/18/22 07:00 12/18/22 07:00 2 12/18/22 06:51 2 12/18/22 03:00
--- NOTE | 2022-12-18 11:50 | XRay Report ---
XR chest 1V portable CLINICAL HISTORY: follow up COMPARISON STUDY: Chest radiograph December 15, 2022. FINDINGS: Patient is rotated. S-shaped scoliosis of the thoracic spine is incidentally noted. There i s an IVC filter. Old bilateral fractures are present. No pneumothorax or pleural effusion is present. Interstitial and alveolar opacities have moderately improved since exam of December 15, 2022. Cardio megaly is unchanged. IMPRESSION: Moderate interval improvement in interstitial thickening and bilateral airspace opacitie s since prior exam. The findings favor improving pulmonary edema. An infectious process could appear similar. ACT 112: Negative or not required by law. Electronically signed by: Matias Benson M.D. 12/18/2022 11:48 AM
--- NOTE | 2022-12-18 16:08 | XRay Report ---
KUB HISTORY: Abdominal discomfort. COMPARISON: KUB 03/05/2021. FINDINGS: An IVC filter and cholecystectomy clips remain unchanged in position. Scoliosis and old com pression deformities within the thoracolumbar spine remain unchanged. There are old, healed bilateral rib fractures again noted. There are old pubic bone fractures. Moderate fecal retention. No dilated loops of bowel to suggest an obstruction. No renal calculi. No ureteral calculi. No pneumoperitoneum or pneumatosis. IMPRESSION: 1. No evidence for a bowel obstruction. 2. Moderate fecal retention. ACT 112: Negative or not required by law. Electronically signed by: Luan Nair M.D. 12/18/2022 4:06 PM
[2022-12-18] MEDS: SIMVASTATIN 40 MG TAB PO SCH (20:51)
[2022-12-18] MEDS: traZODone HCL 50 MG TAB PO SCH (20:52)
[2022-12-19] MEDS ORDERED: METOPROLOL TARTRATE 25 MG TAB PO SCH (01:45)
--- NOTE | 2022-12-19 01:57 | Communication Note ---
Date of Service: December 19, 2022
[2022-12-19] MEDS ORDERED: ALBUMIN 25% 12.5 GM/50 ML VIAL IV ONE (01:59)
[2022-12-19] MEDS ORDERED: METOPROLOL TARTRATE 1 MG/ML VIAL IV STA (01:59)
[2022-12-19] MEDS: MAGNESIUM SULFATE / D5W 1 GM/100 ML BAG IV SCH ×2 (02:30→04:25)
[2022-12-19 07:28] LABS: Hemoglobin 9.4 g/dl (14.0-18.0); Mean Corpuscular Hemoglobin 32.2 pg (25.0-34.0); Mean Corpuscular Hgb Conc 31.3 g/dL (32.0-36.0); Mean Corpuscular Volume 102.7 fL (80.0-100.0); Mean Platelet Volume 10.6 fL (9.4-12.4); Platelet Count 148 K/uL (130-400); RDW Coefficient of Variation 13.8 % (11.5-14.5); RDW Standard Deviation 51.6 fL (36.4-46.3); Red Blood Count 2.92 M/uL (4.70-6.10); White Blood Count 4.49 K/ul (4.8-10.8)
[2022-12-19 07:47] LABS: BUN Creatinine Ratio 51.9 (10-20); Calcium 9.7 mg/dl (8.5-10.1); Creatinine Clr Calc Pharmacy 81.8 ml/min; Est GFR (African American) 106.9 ml/min; Est GFR (Non-African American) 92.3 ml/min; Magnesium 2.2 mg/dl (1.7-2.4); Potassium 4.3 mmol/L (3.5-5.1)
[2022-12-19 07:59] LABS: Partial Thromboplastin Ratio 0.8; Partial Thromboplastin Time 22.6 Seconds (21.0-31.0)
[2022-12-19] MEDS: METOPROLOL TARTRATE 25 MG TAB PO SCH ×2 (08:29→20:37)
[2022-12-19] MEDS: INSULIN ASPART PER UNIT SC SCH ×4 (08:30→20:39)
[2022-12-19] MEDS: LANTUS PER UNIT CHARGE SQ SCH (08:32)
[2022-12-19] MEDS: GABAPENTIN 300 MG CAP PO SCH ×3 (08:33→20:36)
[2022-12-19] MEDS: guaiFENesin 600 MG TABCR PO SCH ×2 (08:33→20:40)
[2022-12-19] MEDS: OXcarbazepine 150 MG TABLET PO SCH ×2 (08:33→20:38)
[2022-12-19] MEDS: MAGNESIUM OXIDE 400 MG TAB PO SCH ×2 (08:33→20:35)
[2022-12-19] MEDS: risperiDONE 2 MG TABLET PO SCH ×3 (08:33→20:36)
[2022-12-19] MEDS: AMOXICILLIN/CLAVULANATE 875 MG TAB PO SCH ×2 (08:34→17:12)
[2022-12-19] MEDS: METOCLOPRAMIDE HCL 5 MG TABLET PO SCH ×4 (08:34→20:39)
[2022-12-19] MEDS: LORATADINE 10 MG TAB PO SCH (08:34)
[2022-12-19] MEDS: PENTOXIFYLLINE 400MG EXT REL TAB PO SCH ×3 (08:34→20:38)
[2022-12-19] MEDS: MULTIVITAMIN TAB PO SCH (08:34)
[2022-12-19] MEDS: ESCITALOPRAM OXALATE 20 MG TAB PO SCH (08:34)
[2022-12-19] MEDS: PANTOprazole 40 MG TAB PO SCH (08:34)
[2022-12-19] MEDS: CHOLECALCIFEROL 1,000 UNITS 25 MCG TAB PO SCH (08:34)
[2022-12-19] MEDS: ENOXAPARIN INJ 40 MG/0.4 ML SYR SQ SCH (08:35)
[2022-12-19] MEDS: UMECLIDINIUM BROMIDE 62.5MCG/BLISTER 7 PUFFS/INHALER INH SCH (08:35)
--- NOTE | 2022-12-19 10:36 | Hospitalist Progress Note ---
Date of Service December 19, 2022 Assessment & Plan (1) Bilateral pneumonia: Plan: 67 y/o male with complicated medical history of DM2, COPD, multiple admissions for pneumonia and hypoxia with recent discharge on 11/30/22 for same, PAF, aortic stenosis, PVD, and chronic ambulatory dysfunction, typically using a wheelchair at baseline who presented to the ED with new fever and hypoxia. Work-up in the ED seems most consistent with recurrent pneumonia/ hosp-acquired. Pt was evaluated for aspiration during last admission, which was negative, and caregiver denies recent witnessed aspiration episodes. Concern for a hospital-acquired pneumonia with recent admission to [facility] then discharge to [facility] so broad-spectrum antibiotics started in the ED. - Admitted to PCU - Continued broad-spectrum antibiotics - Zosyn and Vancomycin, vanco stopped -> and zosyn switched to PO Augmentin - hypoxic 84-86% on RA on admission and required 2L O2 - crackles on left side noted - repeat CXR - significant for pulm. vasc. congestion - added guafenesin, flutter valve, IS - discussed w/ RN - Minced and moist diet with thin liquids as per facility - started IV lasix for pulm. congestion, fluid overload - discussed w/ nephro 12/18 Appears that pt diuresed quite a bit, Na much improved and bicarb up Repeated CXR - pulm. congestion much improved 12/19 Na improved, IV lasix on hold - will give PO lasix (2) Hypoxemia: Plan: See plan for #1 (3) Hypomagnesemia: Plan: Noted to have marked hypomag with a level of 0.9 in ED - has a history of hypomag in the past for which he is on oral mag oxide 200 mg BID at baselined - Replete and monitor Hyponatremia Na 129 on 12/15 Na 122 on 12/15 pm Na 133 on 12/17 Na 139 on 12/18 and IV lasix held Na 135 now Discussed with nephrology, likely hypervolemic Nephrology consulted - continued with IV lasix, urea stopped - bicarb now elevated and Na up as well, stopped IV lasix - give one dose PO lasix today Afib w/ RVR - overnight pt had short burst of afib w/ RVR, received metoprolol, magnesium -converted back to sinus rhythm immediately - monitor K and Mag w/ diuresis - replete as needed goal K ~4 and Mag ~2 (4) Pressure ulcer of coccygeal region, stage 3: Plan: Consult wound care nurse - documentation from facility about what dressings pt is currently using placed on the chart for reference (5) Diabetes mellitus, type 2: Plan: Hold oral meds while admitted Diabetic diet Insulin sliding scale (6) Cerebral palsy: (7) PAF (paroxysmal atrial fibrillation): (8) GERD (gastroesophageal reflux disease): (9) Aortic stenosis: (10) Chronic obstructive pulmonary disease: (11) PVD (peripheral vascular disease): (12) Intellectual disability: Plan PT/OT consults - of note, pt did not seem to do well at [facility] after last admission, refused to participate per staff. Code Status: Full code per caregiver DVT Prophylaxis: Lovenox Admission and Anticipated Discharge Date Admission Date: December 14, 2022 Subjective Patient seen in follow-up of hypoxia, pneumonia, recent admission for pneumonia Patient with intellectual disability, now treated for hospital-acquired p neumonia, hypomagnesemia, hyponatremia, fluid overload Laying /sitting up in bed in no acute distress, he is awake and alert Patient appears comfortable, currently on 2L of suppl. O2 Reports minimal cough somewhat difficult to get full history /ROS from the patient due to his intellectual disability nephrology following for hyponatremia Review of Systems Review of Systems: Unobtainable due to cognitive status Physical Exam Physical Exam: Constitutional:L + cachectic M; no acute distress Eyes: + anicteric sclera e Neck: supple Respiratory: no respiratory dis tress and no labor ed breathing Ausc ultation: + minima l crackles (left > right, but much i mproved from previ ous exam) Cardiovascular:L Rate/Rhythm: regul ar rate and regula r rhythm Heart So unds: + murmur, E xtremities: no ped al edema Gastrointestinal ( Abdomen): normal bowel soun ds; abdomen not di stended, soft, non tender Musculoskeletal: Head/Neck/Chest: n ormocephalic and n rigoberto supple Skin: stasis changes bi lateral LE Neuro/Psych: awake and alert, p leasant, able to s omewhat answer sim ple questions, mov es all extremities Results & Data Results & Data ([facility]) Vital Signs (Past 12 Hours) Vital Signs Temp Pulse Pulse Resp BP BP Pulse Ox 02/23/23 08:00 65 12/19/22 08:00 12/19/22 07:05 36.7 C 70 18 134/68 95 12/19/22 02:40 36.6 C 63 18 108/58 L 94 12/19/22 01:30 120 H 14 103/63 12/18/22 22:45 36.3 C L 66 18 127/72 95 12/19/22 02:15 122 H 103/63 O2 Del Method O2 Flow Rate 12/19/22 08:00 12/19/22 08:00 Nasal Cannula 2 12/19/22 07:05 Nasal Cannula 2 12/19/22 02:40 Nasal Cannula 2 12/19/22 01:30 12/18/22 22:45 Nasal Cannula 2 12/19/22 02:15 Laboratory Results 12/19/22 12/19/22 12/19/22 Range/Units 07:39 06:47 06:47 WBC (4.8-10.8) K/ul RBC (4.70-6.10) M/uL Hgb (14.0-18.0) g/dl Hct (42.0-52.0) % MCV (80.0-100.0) fL MCH (25.0-34.0) pg MCHC (32.0-36.0) g/dL RDW Std Deviation (36.4-46.3) fL RDW Coeff of Drew (11.5-14.5) % Plt Count (130-400) K/uL MPV (9.4-12.4) fL APTT 22.6 (21.0-31.0) Seconds PTT Ratio 0.8 Sodium (136-145) mmol/L Potassium (3.5-5.1) mmol/L Chloride (98-107) mmol/L Carbon Dioxide (21-32) mmol/L Anion Gap (3-11) BUN (6-23) mg/dl Creatinine (0.6-1.4) mg/dl Est Cr Clr Drug Dosing ml/min Est GFR ( Amer) ml/min Est GFR (Non-Af Amer) ml/min BUN/Creatinine Ratio (10-20) Glucose (70-99(Fasting)) mg/dl POC Glucose 250 H (70-99) mg/dl Calcium (8.5-10.1) mg/dl Magnesium (1.7-2.4) mg/dl Procalcitonin (0-0.5) ng/ml TSH 1.373 (0.300-4.500) uIu/ml 12/19/22 12/19/22 12/18/22 Range/Units 06:47 06:47 20:08 WBC 4.49 L (4.8-10.8) K/ul RBC 2.92 L (4.70-6.10) M/uL Hgb 9.4 L (14.0-18.0) g/dl Hct 30.0 L (42.0-52.0) % MCV 102.7 H (80.0-100.0) fL MCH 32.2 (25.0-34.0) pg MCHC 31.3 L (32.0-36.0) g/dL RDW Std Deviation 51.6 H (36.4-46.3) fL RDW Coeff of Drew 13.8 (11.5-14.5) % Plt Count 148 (130-400) K/uL MPV 10.6 (9.4-12.4) fL APTT (21.0-31.0) Seconds PTT Ratio Sodium 135 L (136-145) mmol/L Potassium 4.3 (3.5-5.1) mmol/L Chloride 92 L (98-107) mmol/L Carbon Dioxide 40 H (21-32) mmol/L Anion Gap 3 (3-11) BUN 41 H (6-23) mg/dl Creatinine 0.79 (0.6-1.4) mg/dl Est Cr Clr Drug Dosing 81.8 ml/min Est GFR ( Amer) 106.9 ml/min Est GFR (Non-Af Amer) 92.3 ml/min BUN/Creatinine Ratio 51.9 H (10-20) Glucose 263 H (70-99(Fasting)) mg/dl POC Glucose 135 H (70-99) mg/dl Calcium 9.7 (8.5-10.1) mg/dl Magnesium 2.2 (1.7-2.4) mg/dl Procalcitonin (0-0.5) ng/ml TSH (0.300-4.500) uIu/ml 12/18/22 12/18/22 12/18/22 Range/Units 16:07 11:24 09:14 WBC (4.8-10.8) K/ul RBC (4.70-6.10) M/uL Hgb (14.0-18.0) g/dl Hct (42.0-52.0) % MCV (80.0-100.0) fL MCH (25.0-34.0) pg MCHC (32.0-36.0) g/dL RDW Std Deviation (36.4-46.3) fL RDW Coeff of Drew (11.5-14.5) % Plt Count (130-400) K/uL MPV (9.4-12.4) fL APTT (21.0-31.0) Seconds PTT Ratio Sodium (136-145) mmol/L Potassium (3.5-5.1) mmol/L Chloride (98-107) mmol/L Carbon Dioxide (21-32) mmol/L Anion Gap (3-11) BUN (6-23) mg/dl Creatinine (0.6-1.4) mg/dl Est Cr Clr Drug Dosing ml/min Est GFR ( Amer) ml/min Est GFR (Non-Af Amer) ml/min BUN/Creatinine Ratio (10-20) Glucose (70-99(Fasting)) mg/dl POC Glucose 82 234 H (70-99) mg/dl Calcium (8.5-10.1) mg/dl Magnesium (1.7-2.4) mg/dl Procalcitonin 0.41 (0-0.5) ng/ml TSH (0.300-4.500) uIu/ml Medications Administered Current Inpatient Medications Acetaminophen (Acetaminophen 325 Mg Tab) 650 mg PO Q4H PRN PRN Reason: Pain or Fever Stop: 01/13/23 11:06 Last Admin: 12/17/22 06:04 Dose: 650 mg Albuterol (Albuterol Hfa 8 Gm Inhaler) 2 puffs INH Q4H PRN PRN Reason: Shortness Of Breath Stop: 01/13/23 11:06 Amoxicillin/Clavulanate Potassium (Amoxicillin/Clavulanate 875 Mg Tab) 1 tab PO BIDM SEN Stop: 12/26/22 07:59 Last Admin: 12/19/22 08:34 Dose: 1 tab Dextrose (Dextrose 50% 50 Ml Syringe) 25 - 50 ml IV UD PRN; Protocol PRN Reason: Hypoglycemia Protocol Stop: 01/13/23 11:06 Enoxaparin Sodium (Enoxaparin Inj 40 Mg/0.4 Ml Syr) 40 mg SQ QAM SEN Stop: 01/14/23 08:59 Last Admin: 12/19/22 08:35 Dose: 40 mg Escitalopram Oxalate (Escitalopram Oxalate 20 Mg Tab) 20 mg PO QAM SEN Stop: 01/13/23 11:06 Last Admin: 12/19/22 08:34 Dose: 20 mg Gabapentin (Gabapentin 300 Mg Cap) 300 mg PO TID SEN Stop: 01/13/23 13:59 Last Admin: 12/19/22 08:33 Dose: 300 mg Glucagon (Glucagon For Inj 1 Mg Vial) 1 mg SQ UD PRN; Protocol PRN Reason: Hypoglycemia Protocol Stop: 01/13/23 11:06 Glucose (Glucose 10 Tab/Tube) 4 - 8 tab PO UD PRN; Protocol PRN Reason: Hypoglycemia Treatment Stop: 01/13/23 11:06 Glucose (Glucose 40% Gel 15 Gm Tube) 15 - 30 gm PO UD PRN; Protocol PRN Reason: Hypoglycemia Protocol Stop: 01/13/23 11:06 Guaifenesin (Guaifenesin 600 Mg Tabcr) 600 mg PO Q12 [facility] Stop: 01/14/23 10:14 Last Admin: 12/19/22 08:33 Dose: 600 mg Insulin Aspart (Insulin Aspart Per Unit) 0 units SC [facility] Stop: 01/13/23 11:29 Last Admin: 12/19/22 08:30 Dose: 8 units Insulin Glargine (Lantus Per Unit Charge) 10 units SQ DAILY SEN Stop: 01/16/23 10:44 Last Admin: 12/19/22 08:32 Dose: 10 units Loratadine (Loratadine 10 Mg Tab) 10 mg PO QAM [facility] Stop: 01/13/23 11:06 Last Admin: 12/19/22 08:34 Dose: 10 mg Magnesium Oxide (Magnesium Oxide 400 Mg Tab) 400 mg PO BID [facility] Stop: 01/13/23 20:59 Last Admin: 12/19/22 08:33 Dose: 400 mg Metoclopramide HCl (Metoclopramide Hcl 5 Mg Tablet) 5 mg PO ACHS SEN Stop: 01/13/23 11:29 Last Admin: 12/19/22 08:34 Dose: 5 mg Metoprolol Tartrate (Metoprolol Tartrate 25 Mg Tab) 12.5 mg PO BID SEN Stop: 01/18/23 08:59 Last Admin: 12/19/22 08:29 Dose: 12.5 mg Miscellaneous (Carbohydrates For Hypoglycemia ) 15 - 30 gm PO UD PRN PRN Reason: Hypoglycemia Protocol Stop: 01/13/23 11:06 Multivitamins (Multivitamin Tab) 1 tab PO QAM SEN Stop: 01/14/23 08:59 Last Admin: 12/19/22 08:34 Dose: 1 tab Oxcarbazepine (Oxcarbazepine 150 Mg Tablet) 150 mg PO BID SEN Stop: 01/13/23 11:06 Last Admin: 12/19/22 08:33 Dose: 150 mg Pantoprazole Sodium (Pantoprazole 40 Mg Tab) 40 mg PO QAM SEN Stop: 01/13/23 11:06 Last Admin: 12/19/22 08:34 Dose: 40 mg Pentoxifylline (Pentoxifylline 400mg Ext Rel Tab) 400 mg PO TID@0800,1600,2000 SEN Stop: 01/13/23 15:59 Last Admin: 12/19/22 08:34 Dose: 400 mg Risperidone (Risperidone 2 Mg Tablet) 2 mg PO TID SEN Stop: 01/13/23 13:59 Last Admin: 12/19/22 08:33 Dose: 2 mg Simvastatin (Simvastatin 40 Mg Tab) 40 mg PO HS SEN Stop: 01/13/23 20:59 Last Admin: 12/18/22 20:51 Dose: 40 mg Trazodone HCl (Trazodone Hcl 50 Mg Tab) 50 mg PO Q24H SEN Stop: 01/13/23 19:59 Last Admin: 12/18/22 20:52 Dose: 50 mg Umeclidinium Bradford (Umeclidinium Bradford 62.5mcg/Blister 7 Puffs/Inhaler) 1 puffs INH QAM SEN Stop: 01/13/23 11:06 Last Admin: 12/19/22 08:35 Dose: 1 puffs Vitamin D (Cholecalciferol 1,000 Units 25 Mcg Tab) 1,000 units PO QAM SEN Stop: 01/14/23 08:59 Last Admin: 12/19/22 08:34 Dose: 1,000 units
--- NOTE | 2022-12-19 11:04 | Electrocardiogram Report ---
Test Reason : Blood Pressure : / mmHG Vent. Rate : 064 BPM Atrial Rate : 064 BPM P-R Int : 170 ms QRS Dur : 070 ms QT Int : 390 ms P-R-T Axes : 060 025 036 degrees QTc Int : 402 ms Sinus rhythm When compared with ECG of 14-DEC-2022 07:16, Vent. rate has decreased BY 37 BPM Confirmed by Sreedhar Dowling ([id number]) on 12/19/2022 11:03:54 AM Referred By: REFERRED SELF Confirmed By:Evan Dowling
--- NOTE | 2022-12-19 11:23 | Electrocardiogram Report ---
Test Reason : Blood Pressure : / mmHG Vent. Rate : 125 BPM Atrial Rate : 159 BPM P-R Int : 000 ms QRS Dur : 110 ms QT Int : 322 ms P-R-T Axes : 000 014 047 degrees QTc Int : 464 ms Atrial fibrillation with rapid ventricular response Incomplete right bundle branch block Abnormal ECG When compared with ECG of 18-DEC-2022 17:07, (unconfirmed) Atrial fibrillation has replaced sinus rhythm Vent. rate has increased BY 61 BPM Incomplete right bundle branch block is now Present Confirmed by Sreedhar Dowling ([id number]) on 12/19/2022 11:23:21 AM Referred By: REFERRED SELF Confirmed By:Evan Dowling
--- NOTE | 2022-12-19 13:49 | Nephrology Progress Note ---
Date of Service December 19, 2022 Assessment & Plan (1) Hyponatremia: Plan: This was hypervolemic hyponatremia given the picture of the x-ray. Na now normal after few days of good diuresis. -Lasix was withheld yesterday, UOP has decreased , but sodium is still acceptable , His Co2 continues to be high. -Continue to hold lasix . -Fluid restriction 2000 mL per day. (2) Acute hypoxemic respiratory failure: Plan: Likley 2/ combination of congestive heart failure/pulmonary edema and bilateral pneumonia -Improved with Diuresis, presnetly on hold 2/ Alkalosis. -Low threshold for restarting the diuretic if Oxygen requirements increase. Admission and Anticipated Discharge Date Admission Date: December 14, 2022 Subjective Patient with intellectual disability,a/w hospital-acquired pneumonia, hypomagnesemia, hyponatremia, fluid overload Patient appears comfortable, currently on 2L of suppl. O2 Review of Systems Review of Systems: All systems reviewed & are unremarkable except as noted in HPI & below Physical Exam Physical Exam: General - Comfortable. Lungs: fair air entry b/l with b/l lower lobes rales (L>R) Cardiac: Normal S1/S2 with systolic murmur Abd: ND, NT, Soft MSK: no LE edema Skin: stage 3 5x3mm ulcer near the gluteal cleft. No erythema or drainage Psych: AAOx1 with minimally verbal (at his baseline) Results & Data ([facility]) Vital Signs (Past 12 Hours) Vital Signs Temp Pulse Pulse Resp BP BP Pulse Ox 12/19/22 11:15 36.4 C L 58 L 18 123/66 96 12/19/22 08:00 65 12/19/22 08:00 12/19/22 07:05 36.7 C 70 18 134/68 95 12/19/22 02:40 36.6 C 63 18 108/58 L 94 12/19/22 02:15 122 H 103/63 O2 Del Method O2 Flow Rate 12/19/22 11:15 Room Air 12/19/22 08:00 12/19/22 08:00 Nasal Cannula 2 12/19/22 07:05 Nasal Cannula 2 12/19/22 02:40 Nasal Cannula 2 12/19/22 02:15 Laboratory Results 12/19/22 06:47 12/19/22 06:47
[2022-12-19] MEDS ORDERED: FUROSEMIDE 40 MG TAB PO ONE (14:55)
[2022-12-19] MEDS: POLYETHYLENE (MIRALAX) 17 GM PACK PO SCH (15:28)
[2022-12-19] MEDS: SIMVASTATIN 40 MG TAB PO SCH (20:38)
[2022-12-19] MEDS: traZODone HCL 50 MG TAB PO SCH (20:39)
[2022-12-20] MEDS: ACETAMINOPHEN 325 MG TAB PO PRN (05:17)
[2022-12-20 06:04] LABS: Hemoglobin 9.4 g/dl (14.0-18.0); Mean Corpuscular Hgb Conc 31.3 g/dL (32.0-36.0); Mean Platelet Volume 10.4 fL (9.4-12.4); Platelet Count 143 K/uL (130-400); RDW Coefficient of Variation 13.6 % (11.5-14.5); RDW Standard Deviation 50.9 fL (36.4-46.3); Red Blood Count 2.94 M/uL (4.70-6.10); White Blood Count 3.71 K/ul (4.8-10.8)
[2022-12-20 06:22] LABS: BUN Creatinine Ratio 58.7 (10-20); Calcium 9.7 mg/dl (8.5-10.1); Creatinine Clr Calc Pharmacy 103.2 ml/min; Est GFR (African American) 117.4 ml/min; Est GFR (Non-African American) 101.3 ml/min; Magnesium 1.7 mg/dl (1.7-2.4); Phosphorus 3.1 mg/dl (2.5-4.9); Potassium 4.1 mmol/L (3.5-5.1)
--- NOTE | 2022-12-20 07:59 | Hospitalist Progress Note ---
Date of Service December 20, 2022 Assessment & Plan (1) Bilateral pneumonia: Plan: 67 y/o male with complicated medical history of DM2, COPD, multiple admissions for pneumonia and hypoxia with recent discharge on 11/30/22 for same, PAF, aortic stenosis, PVD, and chronic ambulatory dysfunction, typically using a wheelchair at baseline who presented to the ED with new fever and hypoxia. Work-up in the ED seems most consistent with recurrent pneumonia/ hosp-acquired. Pt was evaluated for aspiration during last admission, which was negative, and caregiver denies recent witnessed aspiration episodes. Concern for a hospital-acquired pneumonia with recent admission to [facility] then discharge to [facility] so broad-spectrum antibiotics started in the ED. - Admitted to PCU - Continued broad-spectrum antibiotics - Zosyn and Vancomycin, vanco stopped -> and zosyn switched to PO Augmentin - hypoxic 84-86% on RA on admission and required 2L O2 - crackles on left side noted - repeat CXR - significant for pulm. vasc. congestion - added guafenesin, flutter valve, IS - discussed w/ RN - Minced and moist diet with thin liquids as per facility - started IV lasix for pulm. congestion, fluid overload - discussed w/ nephro 12/18 Appears that pt diuresed quite a bit, Na much improved and bicarb up Repeated CXR - pulm. congestion much improved 12/19 Na improved, IV lasix on hold - gave PO lasix (2) Hypoxemia: Plan: See plan for #1 (3) Hypomagnesemia: Plan: Noted to have marked hypomag with a level of 0.9 in ED - has a history of hypomag in the past for which he is on oral mag oxide 200 mg BID at baselined - Replete and monitor Hyponatremia Na 129 on 12/15 Na 122 on 12/15 pm Na 133 on 12/17 Na 139 on 12/18 and IV lasix held Na 134-135 now Discussed with nephrology, likely hypervolemic Nephrology consulted - continued with IV lasix, urea stopped - bicarb then elevated and Na up as well, stopped IV lasix - give one dose PO lasix yesterday (12/19) Afib w/ RVR - overnight pt had short burst of afib w/ RVR, received metoprolol, magnesium -converted back to sinus rhythm immediately - monitor K and Mag w/ diuresis - replete as needed goal K ~4 and Mag ~2 (4) Pressure ulcer of coccygeal region, stage 3: Plan: Consult wound care nurse - documentation from facility about what dressings pt is currently using placed on the chart for reference (5) Diabetes mellitus, type 2: Plan: Hold oral meds while admitted Diabetic diet Insulin sliding scale (6) Cerebral palsy: (7) PAF (paroxysmal atrial fibrillation): (8) GERD (gastroesophageal reflux disease): (9) Aortic stenosis: (10) Chronic obstructive pulmonary disease: (11) PVD (peripheral vascular disease): (12) Intellectual disability: Plan PT/OT consults - of note, pt did not seem to do well at [facility] after last admission, refused to participate per staff. Code Status: Full code per caregiver DVT Prophylaxis: Lovenox Admission and Anticipated Discharge Date Admission Date: December 14, 2022 Subjective Patient seen in follow-up of hypoxia, pneumonia, recent admission for pneumonia Patient with intellectual disability, now treated for hospital-acquired pneumonia, hypomagnesemia, hyponatremia, fluid overload Laying /sitting up in bed in no acute distress, he is awake and alert Patient appears comfortable, currently on 2L of suppl. O2 Reports minimal cough somewhat difficult to get full history /ROS from the patient due to his intellectual disability nephrology following for hyponatremia Review of Systems Review of Systems: All systems reviewed & are unremarkable except as noted in Subjective Physical Exam 2 Physical Exam: Constitutional:L + cachectic M; no acute distress Eyes: + anicteric sclera e Neck: supple Respiratory: no respiratory dis tress and no labor ed breathing Ausc ultation: + minima l crackles (left > right, but much i mproved from previ ous exam) Cardiovascular:L Rate/Rhythm: regul ar rate and regula r rhythm Heart So unds: + murmur, E xtremities: no ped al edema Gastrointestinal ( Abdomen): normal bowel soun ds; abdomen not di stended, soft, non tender Musculoskeletal: Head/Neck/Chest: n ormocephalic and n rigoberto supple Skin: stasis changes bi lateral LE Neuro/Psych: awake and alert, p leasant, able to s omewhat answer sim ple questions, mov es all extremities Results & Data Results & Data ([facility]) Vital Signs (Past 12 Hours) Vital Signs Temp Pulse Pulse Resp BP Pulse Ox O2 Del Method 12/20/22 02:45 36.5 C 97 H 20 126/64 97 Nasal Cannula 12/19/22 23:41 56 L 12/19/22 22:38 37.0 C 60 16 101/57 L 97 Nasal Cannula 12/19/22 20:45 Nasal Cannula O2 Flow Rate 12/20/22 02:45 2 12/19/22 23:41 12/19/22 22:38 2 12/19/22 20:45 2 Laboratory Results 12/20/22 12/20/22 12/20/22 Range/Units 07:10 05:35 05:35 WBC 3.71 L (4.8-10.8) K/ul RBC 2.94 L (4.70-6.10) M/uL Hgb 9.4 L (14.0-18.0) g/dl Hct 30.0 L (42.0-52.0) % MCV 102.0 H (80.0-100.0) fL MCH 32.0 (25.0-34.0) pg MCHC 31.3 L (32.0-36.0) g/dL RDW Std Deviation 50.9 H (36.4-46.3) fL RDW Coeff of Drew 13.6 (11.5-14.5) % Plt Count 143 (130-400) K/uL MPV 10.4 (9.4-12.4) fL APTT (21.0-31.0) Seconds PTT Ratio Sodium 134 L (136-145) mmol/L Potassium 4.1 (3.5-5.1) mmol/L Chloride 91 L (98-107) mmol/L Carbon Dioxide 40 H (21-32) mmol/L Anion Gap 3 (3-11) BUN 37 H (6-23) mg/dl Creatinine 0.63 (0.6-1.4) mg/dl Est Cr Clr Drug Dosing 103.2 ml/min Est GFR ( Amer) 117.4 ml/min Est GFR (Non-Af Amer) 101.3 ml/min BUN/Creatinine Ratio 58.7 H (10-20) Glucose 161 H (70-99(Fasting)) mg/dl POC Glucose 170 H (70-99) mg/dl Calcium 9.7 (8.5-10.1) mg/dl Phosphorus 3.1 D (2.5-4.9) mg/dl Magnesium 1.7 (1.7-2.4) mg/dl TSH (0.300-4.500) uIu/ml 12/19/22 12/19/22 12/19/22 Range/Units 20:30 16:18 11:14 WBC (4.8-10.8) K/ul RBC (4.70-6.10) M/uL Hgb (14.0-18.0) g/dl Hct (42.0-52.0) % MCV (80.0-100.0) fL MCH (25.0-34.0) pg MCHC (32.0-36.0) g/dL RDW Std Deviation (36.4-46.3) fL RDW Coeff of Drew (11.5-14.5) % Plt Count (130-400) K/uL MPV (9.4-12.4) fL APTT (21.0-31.0) Seconds PTT Ratio Sodium (136-145) mmol/L Potassium (3.5-5.1) mmol/L Chloride (98-107) mmol/L Carbon Dioxide (21-32) mmol/L Anion Gap (3-11) BUN (6-23) mg/dl Creatinine (0.6-1.4) mg/dl Est Cr Clr Drug Dosing ml/min Est GFR ( Amer) ml/min Est GFR (Non-Af Amer) ml/min BUN/Creatinine Ratio (10-20) Glucose (70-99(Fasting)) mg/dl POC Glucose 100 H 75 199 H (70-99) mg/dl Calcium (8.5-10.1) mg/dl Phosphorus (2.5-4.9) mg/dl Magnesium (1.7-2.4) mg/dl TSH (0.300-4.500) uIu/ml 12/19/22 12/19/22 Range/Units 06:47 06:47 WBC (4.8-10.8) K/ul RBC (4.70-6.10) M/uL Hgb (14.0-18.0) g/dl Hct (42.0-52.0) % MCV (80.0-100.0) fL MCH (25.0-34.0) pg MCHC (32.0-36.0) g/dL RDW Std Deviation (36.4-46.3) fL RDW Coeff of Drew (11.5-14.5) % Plt Count (130-400) K/uL MPV (9.4-12.4) fL APTT 22.6 (21.0-31.0) Seconds PTT Ratio 0.8 Sodium (136-145) mmol/L Potassium (3.5-5.1) mmol/L Chloride (98-107) mmol/L Carbon Dioxide (21-32) mmol/L Anion Gap (3-11) BUN (6-23) mg/dl Creatinine (0.6-1.4) mg/dl Est Cr Clr Drug Dosing ml/min Est GFR ( Amer) ml/min Est GFR (Non-Af Amer) ml/min BUN/Creatinine Ratio (10-20) Glucose (70-99(Fasting)) mg/dl POC Glucose (70-99) mg/dl Calcium (8.5-10.1) mg/dl Phosphorus (2.5-4.9) mg/dl Magnesium (1.7-2.4) mg/dl TSH 1.373 (0.300-4.500) uIu/ml Medications Administered Current Inpatient Medications Acetaminophen (Acetaminophen 325 Mg Tab) 650 mg PO Q4H PRN PRN Reason: Pain or Fever Stop: 01/13/23 11:06 Last Admin: 12/20/22 05:17 Dose: 650 mg Albuterol (Albuterol Hfa 8 Gm Inhaler) 2 puffs INH Q4H PRN PRN Reason: Shortness Of Breath Stop: 01/13/23 11:06 Amoxicillin/Clavulanate Potassium (Amoxicillin/Clavulanate 875 Mg Tab) 1 tab PO BIDM [facility] Stop: 12/26/22 07:59 Last Admin: 12/19/22 17:12 Dose: 1 tab Dextrose (Dextrose 50% 50 Ml Syringe) 25 - 50 ml IV UD PRN; Protocol PRN Reason: Hypoglycemia Protocol Stop: 01/13/23 11:06 Enoxaparin Sodium (Enoxaparin Inj 40 Mg/0.4 Ml Syr) 40 mg SQ QAM [facility] Stop: 01/14/23 08:59 Last Admin: 12/19/22 08:35 Dose: 40 mg Escitalopram Oxalate (Escitalopram Oxalate 20 Mg Tab) 20 mg PO QAM [facility] Stop: 01/13/23 11:06 Last Admin: 12/19/22 08:34 Dose: 20 mg Gabapentin (Gabapentin 300 Mg Cap) 300 mg PO TID [facility] Stop: 01/13/23 13:59 Last Admin: 12/19/22 20:36 Dose: 300 mg Glucagon (Glucagon For Inj 1 Mg Vial) 1 mg SQ UD PRN; Protocol PRN Reason: Hypoglycemia Protocol Stop: 01/13/23 11:06 Glucose (Glucose 10 Tab/Tube) 4 - 8 tab PO UD PRN; Protocol PRN Reason: Hypoglycemia Treatment Stop: 01/13/23 11:06 Glucose (Glucose 40% Gel 15 Gm Tube) 15 - 30 gm PO UD PRN; Protocol PRN Reason: Hypoglycemia Protocol Stop: 01/13/23 11:06 Guaifenesin (Guaifenesin 600 Mg Tabcr) 600 mg PO Q12 [facility] Stop: 01/14/23 10:14 Last Admin: 12/19/22 20:40 Dose: 600 mg Insulin Aspart (Insulin Aspart Per Unit) 0 units SC [facility] Stop: 01/13/23 11:29 Last Admin: 12/19/22 20:39 Dose: Not Given Insulin Glargine (Lantus Per Unit Charge) 10 units SQ DAILY [facility] Stop: 01/16/23 10:44 Last Admin: 12/19/22 08:32 Dose: 10 units [facility]atadine ([facility] 10 Mg Tab) [facility] [place]: 01/13/23 11:06 Last Admin: 12/19/22 08:34 Dose: 10 mg Magnesium Oxide (Magnesium Oxide 400 Mg Tab) 400 mg PO BID [facility] Stop: 01/13/23 20:59 Last Admin: 12/19/22 20:35 Dose: 400 mg Metoclopramide HCl (Metoclopramide Hcl 5 Mg Tablet) 5 mg PO ACHS [facility] Stop: 01/13/23 11:29 Last Admin: 12/19/22 20:39 Dose: 5 mg Metoprolol Tartrate (Metoprolol Tartrate 25 Mg Tab) 12.5 mg PO BID [facility] Stop: 01/18/23 08:59 Last Admin: 12/19/22 20:37 Dose: 12.5 mg Miscellaneous (Carbohydrates For Hypoglycemia ) 15 - 30 gm PO UD PRN PRN Reason: Hypoglycemia Protocol Stop: 01/13/23 11:06 Multivitamins (Multivitamin Tab) 1 tab PO QA [facility] Stop: 01/14/23 08:59 Last Admin: 12/19/22 08:34 Dose: 1 tab Oxcarbazepine (Oxcarbazepine 150 Mg Tablet) 150 mg PO BID [facility] Stop: 01/13/23 11:06 Last Admin: 12/19/22 20:38 Dose: 150 mg Pantoprazole Sodium (Pantoprazole 40 Mg Tab) 40 mg PO QAM [facility] Stop: 01/13/23 11:06 Last Admin: 12/19/22 08:34 Dose: 40 mg Pentoxifylline (Pentoxifylline 400mg Ext Rel Tab) 400 mg PO TID@0800,1600,2000 [facility] Stop: 01/13/23 15:59 Last Admin: 12/19/22 20:38 Dose: 400 mg Polyethylene Glycol (Polyethylene (Miralax) 17 Gm Pack) 17 gm PO DAILY [facility] Stop: 01/18/23 14:59 Last Admin: 12/19/22 15:28 Dose: Not Given Risperidone (Risperidone 2 Mg Tablet) 2 mg PO TID [facility] Stop: 01/13/23 13:59 Last Admin: 12/19/22 20:36 Dose: 2 mg Simvastatin (Simvastatin 40 Mg Tab) 40 mg PO HS [facility] Stop: 01/13/23 20:59 Last Admin: 12/19/22 20:38 Dose: 40 mg Trazodone HCl (Trazodone Hcl 50 Mg Tab) 50 mg PO Q24H [facility] Stop: 01/13/23 19:59 Last Admin: 12/19/22 20:39 Dose: 50 mg Umeclidinium [place] (Umeclidinium [place] 62.5mcg/Blister 7 Puffs/Inhaler) 1 puffs [facility] [place]: 01/13/23 11:06 Last Admin: 12/19/22 08:35 Dose: 1 puffs Vitamin D (Cholecalciferol 1,000 Units 25 Mcg Tab) 1,000 units PO QAM [facility] Stop: 01/14/23 08:59 Last Admin: 12/19/22 08:34 Dose: 1,000 units
[2022-12-20] MEDS: AMOXICILLIN/CLAVULANATE 875 MG TAB PO SCH ×2 (08:26→17:22)
[2022-12-20] MEDS: METOCLOPRAMIDE HCL 5 MG TABLET PO SCH ×3 (08:26→17:21)
[2022-12-20] MEDS: PENTOXIFYLLINE 400MG EXT REL TAB PO SCH ×2 (08:27→15:14)
[2022-12-20] MEDS: ESCITALOPRAM OXALATE 20 MG TAB PO SCH (08:27)
[2022-12-20] MEDS: CHOLECALCIFEROL 1,000 UNITS 25 MCG TAB PO SCH (08:27)
[2022-12-20] MEDS: ENOXAPARIN INJ 40 MG/0.4 ML SYR SQ SCH (08:27)
[2022-12-20] MEDS: LORATADINE 10 MG TAB PO SCH (08:28)
[2022-12-20] MEDS: guaiFENesin 600 MG TABCR PO SCH (08:28)
[2022-12-20] MEDS: MAGNESIUM OXIDE 400 MG TAB PO SCH (08:28)
[2022-12-20] MEDS: GABAPENTIN 300 MG CAP PO SCH ×2 (08:28→15:13)
[2022-12-20] MEDS: OXcarbazepine 150 MG TABLET PO SCH (08:29)
[2022-12-20] MEDS: METOPROLOL TARTRATE 25 MG TAB PO SCH (08:29)
[2022-12-20] MEDS: PANTOprazole 40 MG TAB PO SCH (08:29)
[2022-12-20] MEDS: MULTIVITAMIN TAB PO SCH (08:29)
[2022-12-20] MEDS: UMECLIDINIUM BROMIDE 62.5MCG/BLISTER 7 PUFFS/INHALER INH SCH (08:30)
[2022-12-20] MEDS: risperiDONE 2 MG TABLET PO SCH ×2 (08:30→15:13)
[2022-12-20] MEDS: POLYETHYLENE (MIRALAX) 17 GM PACK PO SCH (08:30)
[2022-12-20] MEDS: LANTUS PER UNIT CHARGE SQ SCH (08:49)
[2022-12-20] MEDS: INSULIN ASPART PER UNIT SC SCH ×3 (08:50→17:19)
[2022-12-20] MEDS ORDERED: MAGNESIUM SULFATE / D5W 1 GM/100 ML BAG IV ONE (10:55)
[2022-12-20] MEDS: ADVANCED PROBIOTIC 1250 MG CAPSULE PO SCH (13:32)
[2022-12-21] MEDS: GABAPENTIN 300 MG CAP PO SCH ×4 (00:02→22:39)
[2022-12-21] MEDS: OXcarbazepine 150 MG TABLET PO SCH ×3 (00:02→22:43)
[2022-12-21] MEDS: MAGNESIUM OXIDE 400 MG TAB PO SCH ×3 (00:02→22:43)
[2022-12-21] MEDS: traZODone HCL 50 MG TAB PO SCH ×2 (00:02→23:07)
[2022-12-21] MEDS: PENTOXIFYLLINE 400MG EXT REL TAB PO SCH ×4 (00:02→22:40)
[2022-12-21] MEDS: METOCLOPRAMIDE HCL 5 MG TABLET PO SCH ×5 (00:02→22:43)
[2022-12-21] MEDS: risperiDONE 2 MG TABLET PO SCH ×4 (00:02→22:39)
[2022-12-21] MEDS: SIMVASTATIN 40 MG TAB PO SCH ×2 (00:02→22:43)
[2022-12-21] MEDS: METOPROLOL TARTRATE 25 MG TAB PO SCH ×3 (00:02→22:43)
[2022-12-21] MEDS: INSULIN ASPART PER UNIT SC SCH ×5 (00:21→23:46)
[2022-12-21] MEDS: ACETAMINOPHEN 325 MG TAB PO PRN ×4 (00:24→23:07)
[2022-12-21 07:34] LABS: Hematocrit (blood only) 31.2 % (42.0-52.0); Hemoglobin 9.8 g/dl (14.0-18.0); Mean Corpuscular Hemoglobin 31.9 pg (25.0-34.0); Mean Corpuscular Hgb Conc 31.4 g/dL (32.0-36.0); Mean Corpuscular Volume 101.6 fL (80.0-100.0); Mean Platelet Volume 10.2 fL (9.4-12.4); Platelet Count 153 K/uL (130-400); RDW Coefficient of Variation 13.7 % (11.5-14.5); RDW Standard Deviation 50.7 fL (36.4-46.3); Red Blood Count 3.07 M/uL (4.70-6.10); White Blood Count 3.24 K/ul (4.8-10.8)
[2022-12-21 07:43] LABS: Calcium 9.6 mg/dl (8.5-10.1); Creatinine Clr Calc Pharmacy 98.8 ml/min; Est GFR (African American) 115.1 ml/min; Est GFR (Non-African American) 99.3 ml/min; Magnesium 1.7 mg/dl (1.7-2.4); Potassium 4.3 mmol/L (3.5-5.1)
[2022-12-21] MEDS: guaiFENesin 600 MG TABCR PO SCH ×3 (08:31→22:43)
[2022-12-21] MEDS: POLYETHYLENE (MIRALAX) 17 GM PACK PO SCH (08:31)
[2022-12-21] MEDS: UMECLIDINIUM BROMIDE 62.5MCG/BLISTER 7 PUFFS/INHALER INH SCH (08:32)
[2022-12-21] MEDS: ESCITALOPRAM OXALATE 20 MG TAB PO SCH (08:32)
[2022-12-21] MEDS: LANTUS PER UNIT CHARGE SQ SCH (08:32)
[2022-12-21] MEDS: PANTOprazole 40 MG TAB PO SCH (08:32)
[2022-12-21] MEDS: ADVANCED PROBIOTIC 1250 MG CAPSULE PO SCH (08:32)
[2022-12-21] MEDS: AMOXICILLIN/CLAVULANATE 875 MG TAB PO SCH ×2 (08:32→16:59)
[2022-12-21] MEDS: LORATADINE 10 MG TAB PO SCH (08:32)
[2022-12-21] MEDS: MULTIVITAMIN TAB PO SCH (08:32)
[2022-12-21] MEDS: CHOLECALCIFEROL 1,000 UNITS 25 MCG TAB PO SCH (08:32)
[2022-12-21] MEDS: ENOXAPARIN INJ 40 MG/0.4 ML SYR SQ SCH (08:33)
--- NOTE | 2022-12-21 10:11 | CT Scan Report ---
CT OF THE CHEST WITHOUT IV CONTRAST CLINICAL HISTORY: pulmonary edema, effusion vs pneumonia COMPARISON STUDY: Chest radiograph December 18, 2022. Chest CT August 15, 2021. CT DOSE: 556.03 mGy.cm TECHNIQUE: Axial images of the chest were obtained without IV contrast. Images were reviewed in the axial, sagittal, and coronal planes. IV contrast was not administered for this examination. Automat ed exposure control was utilized for the study. A dose lowering technique was utilized adhering to t he principles of ALARA. FINDINGS: This study is compromised by motion artifact. Moderate cardiomegaly and dilatation of the central pulmonary arteries is again noted. There is no pericardial effusion. No pneumothorax or pleur al effusion is present. There is no thoracic lymphadenopathy. Levoscoliosis centered within the lower thoracic spine is again noted. There are multiple old thoracic spine compression fractures. These ar e unchanged since CT of August 15, 2021. Central airways are grossly patent. Moderate multifocal air space opacities throughout the lungs are present. These are similar to chest radiograph of November 282022 and remain improved since CT of December 15, 2022. The abdomen and pelvis CT will be reported separately. There are old bilateral rib fractures. IMPRESSION: 1. Moderate airspace opacities throughout the lungs, similar to chest radiograph of December 18, 2022 but improved since chest radiograph of December 15, 2022. These may reflect pneumonia or pulmonary e suhail. No pleural effusions. No pneumothorax. 2. Cardiomegaly. Dilatation of the central pulmonary arteries which suggests pulmonary arterial hyper tension. ACT 112: Negative or not required by law. Electronically signed by: Matias Benson M.D. 12/21/2022 10:09 AM
--- NOTE | 2022-12-21 10:26 | CT Scan Report ---
CT OF THE ABDOMEN AND PELVIS WITHOUT CONTRAST CLINICAL HISTORY: Right sided abdominal pain. COMPARISON STUDY: KUB December 18, 2022. CT of the abdomen and pelvis August 15, 2021. TECHNIQUE: Axial images of the abdomen and pelvis were obtained without IV contrast. Images were revi ewed in the axial, sagittal, and coronal planes. Automated exposure control was utilized for the jonathan dy. A dose lowering technique was utilized adhering to the principles of ALARA. FINDINGS: Moderate airspace opacities are noted within the lungs. The chest CT will be reported separ ately. This study is significantly compromised by motion artifact. No pneumatosis, free air or portal venous gas is present. Gallbladder is surgically absent. IVC filter is in place. Unenhanced images o f the liver, spleen, adrenal glands, kidneys and pancreas are grossly unremarkable. There is no hydro nephrosis. There is no evidence for a bowel obstruction. The appendix is unremarkable. Bladder is dis tended. No fluid collection is identified. There is minimal presacral stranding. Moderate amount of s tool within the colon and rectum is present. No definite lymphadenopathy. Multiple old fractures are noted, clearing fractures of multiple lower thoracic vertebra, bilateral pubic rami, the sacrum and m edial left iliac bone. No acute fractures are identified. IMPRESSION: 1. Exam significantly compromised by motion artifact. No definite acute process. No bowel obstruction . 2. Moderate amount of stool within the colon and rectum. 3. Airspace opacities within lungs which may reflect pneumonia or pulmonary edema. ACT 112: Negative or not required by law. Electronically signed by: Matias Benson M.D. 12/21/2022 10:23 AM
--- NOTE | 2022-12-21 10:28 | Nephrology Progress Note ---
Date of Service December 21, 2022 Assessment & Plan (1) Hyponatremia: Plan: This was hypervolemic hyponatremia given the picture of the x-ray. Na now normal after few days of good diuresis. -Resume Lasix at 20 mg p.o. twice daily -Fluid restriction 2000 mL per day. (2) Acute hypoxemic respiratory failure: Plan: Jasmin 2/ combination of congestive heart failure/pulmonary edema and bilateral pneumonia -Improved with Diuresis but still requiring oxygen nasal cannula Admission and Anticipated Discharge Date Admission Date: December 14, 2022 Subjective Seen for electrolyte imbalance and CHF. Patient is pleasant and follows in structions. He is on oxygen nasal cannula. Review of Systems Review of Systems: Unable to obtain due to altered mental status Physical Exam Physical Exam: General exam: Appears comfortable, no acute distress HEENT: Pupils are equal and reactive to light Neck: No JVD, neck is supple trachea is midline Respiratory system: Clear breath sounds bilaterally. Gastrointestinal: Abdomen is soft, non distended, non tender, bowel sounds are present CVS: Regular rate and rhythm. No murmurs, rubs or gallops Musculoskeletal: No joint or muscle tenderness Extremities: Non tender, no edema, peripheral pulses are present Neuro: Oriented, no tremors, no focal neurological deficits Skin: No rashes Results & Data ([facility]) Vital Signs (Past 12 Hours) Vital Signs Temp Pulse Pulse Resp BP Pulse Ox O2 Del Method 12/21/22 08:00 36.6 C 59 L 16 160/89 H 99 Nasal Cannula 12/21/22 07:30 66 12/20/22 23:57 95 Nasal Cannula 12/20/22 23:56 36.5 C 76 16 132/69 O2 Flow Rate 12/21/22 08:00 2 12/21/22 07:30 12/20/22 23:57 2 12/20/22 23:56 Laboratory Results 12/21/22 06:50 12/21/22 06:50 WBC 3.24 L RBC 3.07 L MCV 101.6 H MCH 31.9 MCHC 31.4 L RDW Std Deviation 50.7 H RDW Coeff of Drew 13.7 Plt Count 153 MPV 10.2
[2022-12-21] MEDS ORDERED: FUROSEMIDE 40 MG TAB PO ONE (13:25)
--- NOTE | 2022-12-21 13:27 | Hospitalist Progress Note ---
Date of Service December 21, 2022 Assessment & Plan (1) Bilateral pneumonia: Plan: per Dr. Yanes's notes with addendum: 67 y/o male with complicated medical history of DM2, COPD, multiple admissions for pneumonia and hypoxia with recent discharge on 11/30/22 for same, PAF, aortic stenosis, PVD, and chronic ambulatory dysfunction, typically using a wheelchair at baseline who presented to the ED with new fever and hypoxia. Work-up in the ED seems most consistent with recurrent pneumonia/ hosp-acquired. Pt was evaluated for aspiration during last admission, which was negative, and caregiver denies recent witnessed aspiration episodes. Concern for a hospital-acquired pneumonia with recent admission to [facility] then discharge to [facility] so broad-spectrum antibiotics started in the ED. - Admitted to PCU - Continued broad-spectrum antibiotics - Zosyn and Vancomycin, vanco stopped -> and zosyn switched to PO Augmentin - hypoxic 84-86% on RA on admission and required 2L O2 - crackles on left side noted - repeat CXR - significant for pulm. vasc. congestion - added guafenesin, flutter valve, IS - discussed w/ RN - Minced and moist diet with thin liquids as per facility - started IV lasix for pulm. congestion, fluid overload - discussed w/ nephro 12/18 Appears that pt diuresed quite a bit, Na much improved and bicarb up Repeated CXR - pulm. congestion much improved 12/19 Na improved, IV lasix on hold - gave PO lasix 12/21 still on 2 L via nasal cannula CT Chest: 1. Moderate airspace opacities throughout the lungs, similar to chest radiograph of December 18, 2022 but improved since chest radiograph of December 15, 2022. These may reflect pneumonia or pulmonary edema. No pleural effusions. No pneumothorax. 2. Cardiomegaly. Dilatation of the central pulmonary arteries which suggests pulmonary arterial hypertension. already completed Unasyn + Levaquin x 7 days during last admission completed Zosyn x 4 days this admission, on Augmentin Day 3 resume Lasix 40mg today then 20mg po BID monitor BMP wean off o2 accordingly (2) Hypoxemia: Plan: See plan for #1 (3) Hypomagnesemia: Plan: Noted to have marked hypomag with a level of 0.9 in ED - has a history of hypomag in the past for which he is on oral mag oxide 200 mg BID at baselined - Replete and monitor Hyponatremia Na 129 on 12/15 Na 122 on 12/15 pm Na 133 on 12/17 Na 139 on 12/18 and IV lasix held Na 134-135 now Discussed with nephrology, likely hypervolemic Nephrology consulted - continued with IV lasix, urea stopped - bicarb then elevated and Na up as well, stopped IV lasix - give one dose PO lasix yesterday (12/19) 12/21 Na 137 monitor Afib w/ RVR - overnight pt had short burst of afib w/ RVR, received metoprolol, magnesium -converted back to sinus rhythm immediately - monitor K and Mag w/ diuresis - replete as needed goal K ~4 and Mag ~2 12/21 currently in SR K and Mg stable (4) Pressure ulcer of coccygeal region, stage 3: Plan: Consult wound care nurse - documentation from facility about what dressings pt is currently using placed on the chart for reference (5) Diabetes mellitus, type 2: Plan: Hold oral meds while admitted Diabetic diet Insulin sliding scale (6) Cerebral palsy: (7) PAF (paroxysmal atrial fibrillation): (8) GERD (gastroesophageal reflux disease): (9) Aortic stenosis: (10) Chronic obstructive pulmonary disease: (11) PVD (peripheral vascular disease): (12) Intellectual disability: Plan PT/OT consults - of note, pt did not seem to do well at [facility] after last admission, refused to participate per staff. Code Status: Full code per caregiver DVT Prophylaxis: Lovenox Admission and Anticipated Discharge Date Admission Date: December 14, 2022 Subjective ff up for hypoxia, CHF, pneumonia, etc seen resting in bed, seems to be crying initially reassured, patient became calm on 2 L NS no signs of distress per RN, patient having r sided abdominal tenderness (+) BM no other symptoms Review of Systems Review of Systems: all noted and negative except for above Physical Exam Physical Exam: General- oriented x 0, not in distress,breathing with no effort or accessory muscle use Eyes- anicteric Neck- no JVD Lungs- clear breath sounds bilaterally, no rales/wheezes Heart- normal rate, regular rhythm; no murmurs Abdomen- normal bowel sounds, nondistended, soft, nontender Extremities- trace pretibial edema, no calf tenderness Neuro- alert, oriented x 0; no gross focal neurologic deficits Skin- warm & dry Results & Data Results & Data ([facility]) Vital Signs (Past 12 Hours) Vital Signs Temp Pulse Pulse Resp BP Pulse Ox O2 Del Method 12/21/22 11:09 36.6 C 62 18 113/65 97 Room Air 12/21/22 08:00 36.6 C 59 L 16 160/89 H 99 Nasal Cannula 12/21/22 07:30 66 O2 Flow Rate 12/21/22 11:09 12/21/22 08:00 2 12/21/22 07:30 all noted and reviewed including below
[2022-12-22] MEDS: ACETAMINOPHEN 325 MG TAB PO PRN ×2 (04:06→10:59)
[2022-12-22 08:34] LABS: BUN Creatinine Ratio 57.4 (10-20); Calcium 10.1 mg/dl (8.5-10.1); Creatinine Clr Calc Pharmacy 108.9 ml/min; Est GFR (African American) 118.9 ml/min; Est GFR (Non-African American) 102.6 ml/min; Magnesium 1.6 mg/dl (1.7-2.4); Potassium 4.6 mmol/L (3.5-5.1)
[2022-12-22] MEDS: FUROSEMIDE 20 MG TAB PO SCH ×2 (09:03→17:01)
[2022-12-22] MEDS: METOCLOPRAMIDE HCL 5 MG TABLET PO SCH ×4 (09:04→20:25)
[2022-12-22] MEDS: METOPROLOL TARTRATE 25 MG TAB PO SCH ×2 (09:04→19:58)
[2022-12-22] MEDS: AMOXICILLIN/CLAVULANATE 875 MG TAB PO SCH ×2 (09:04→17:01)
[2022-12-22] MEDS: LORATADINE 10 MG TAB PO SCH (09:05)
[2022-12-22] MEDS: MULTIVITAMIN TAB PO SCH (09:05)
[2022-12-22] MEDS: INSULIN ASPART PER UNIT SC SCH ×4 (09:05→19:57)
[2022-12-22] MEDS: OXcarbazepine 150 MG TABLET PO SCH ×2 (09:05→20:24)
[2022-12-22] MEDS: ESCITALOPRAM OXALATE 20 MG TAB PO SCH (09:05)
[2022-12-22] MEDS: PANTOprazole 40 MG TAB PO SCH (09:05)
[2022-12-22] MEDS: risperiDONE 2 MG TABLET PO SCH ×3 (09:05→20:24)
[2022-12-22] MEDS: guaiFENesin 600 MG TABCR PO SCH ×2 (09:05→20:26)
[2022-12-22] MEDS: MAGNESIUM OXIDE 400 MG TAB PO SCH ×2 (09:05→20:25)
[2022-12-22] MEDS: ADVANCED PROBIOTIC 1250 MG CAPSULE PO SCH (09:05)
[2022-12-22] MEDS: CHOLECALCIFEROL 1,000 UNITS 25 MCG TAB PO SCH (09:05)
[2022-12-22] MEDS: PENTOXIFYLLINE 400MG EXT REL TAB PO SCH ×3 (09:05→20:26)
[2022-12-22] MEDS: GABAPENTIN 300 MG CAP PO SCH ×3 (09:06→20:27)
[2022-12-22] MEDS: ENOXAPARIN INJ 40 MG/0.4 ML SYR SQ SCH (09:06)
[2022-12-22] MEDS: LANTUS PER UNIT CHARGE SQ SCH (09:06)
[2022-12-22] MEDS: UMECLIDINIUM BROMIDE 62.5MCG/BLISTER 7 PUFFS/INHALER INH SCH (09:07)
[2022-12-22] MEDS: POLYETHYLENE (MIRALAX) 17 GM PACK PO SCH (09:07)
--- NOTE | 2022-12-22 09:14 | Nephrology Progress Note ---
Date of Service December 22, 2022 Assessment & Plan (1) Hyponatremia: Plan: This was hypervolemic hyponatremia given the picture of the x-ray. Na now normal after few days of good diuresis. -Continue Lasix at 20 mg p.o. twice daily -Fluid restriction 2000 mL per day. -Renal will sign off case. Please call if additional questions or concerns (2) Acute hypoxemic respiratory failure: Plan: Likely 2/ combination of congestive heart failure/pulmonary edema and bilateral pneumonia -Improving with Diuresis Admission and Anticipated Discharge Date Admission Date: December 14, 2022 Subjective Seen for volume management. Patient is now off oxygen. He is tolerating Lasix well. Labs stable Review of Systems Review of Systems: Unable to obtain due to altered mental status Physical Exam Physical Exam: General exam: Appears comfortable, no acute distress HEENT: Pupils are equal and reactive to light Neck: No JVD, neck is supple trachea is midline Respiratory system: Clear breath sounds bilaterally. Gastrointestinal: Abdomen is soft, non distended, non tender, bowel sounds are present CVS: Regular rate and rhythm. No murmurs, rubs or gallops Musculoskeletal: No joint or muscle tenderness Extremities: Non tender, no edema, peripheral pulses are present Neuro: Oriented, no tremors, no focal neurological deficits Skin: No rashes Results & Data ([facility]) Vital Signs (Past 12 Hours) Vital Signs Temp Pulse Pulse Resp BP BP Pulse Ox 12/22/22 07:45 36.6 C 63 18 158/84 H 93 12/22/22 07:14 61 12/22/22 04:26 36.4 C L 58 L 16 124/71 94 12/21/22 23:00 12/21/22 22:02 64 12/21/22 23:31 36.7 C 63 16 120/72 92 12/21/22 23:50 36 C L 67 16 151/78 H 96 O2 Del Method 12/22/22 07:45 Room Air 12/22/22 07:14 12/22/22 04:26 Room Air 12/21/22 23:00 Room Air 12/21/22 22:02 12/21/22 23:31 Room Air 12/21/22 23:50 Room Air Laboratory Results 12/22/22 07:10
--- NOTE | 2022-12-22 14:32 | Hospitalist Progress Note ---
Date of Service December 22, 2022 Assessment & Plan (1) Bilateral pneumonia: Plan: per Dr. Yanes's notes with addendum: 67 y/o male with complicated medical history of DM2, COPD, multiple admissions for pneumonia and hypoxia with recent discharge on 11/30/22 for same, PAF, aortic stenosis, PVD, and chronic ambulatory dysfunction, typically using a wheelchair at baseline who presented to the ED with new fever and hypoxia. Work-up in the ED seems most consistent with recurrent pneumonia/ hosp-acquired. Pt was evaluated for aspiration during last admission, which was negative, and caregiver denies recent witnessed aspiration episodes. Concern for a hospital-acquired pneumonia with recent admission to [facility] then discharge to [facility] so broad-spectrum antibiotics started in the ED. - Admitted to PCU - Continued broad-spectrum antibiotics - Zosyn and Vancomycin, vanco stopped -> and zosyn switched to PO Augmentin - hypoxic 84-86% on RA on admission and required 2L O2 - crackles on left side noted - repeat CXR - significant for pulm. vasc. congestion - added guafenesin, flutter valve, IS - discussed w/ RN - Minced and moist diet with thin liquids as per facility - started IV lasix for pulm. congestion, fluid overload - discussed w/ nephro 12/18 Appears that pt diuresed quite a bit, Na much improved and bicarb up Repeated CXR - pulm. congestion much improved 12/19 Na improved, IV lasix on hold - gave PO lasix 12/21 still on 2 L via nasal cannula CT Chest: 1. Moderate airspace opacities throughout the lungs, similar to chest radiograph of December 18, 2022 but improved since chest radiograph of December 15, 2022. These may reflect pneumonia or pulmonary edema. No pleural effusions. No pneumothorax. 2. Cardiomegaly. Dilatation of the central pulmonary arteries which suggests pulmonary arterial hypertension. already completed Unasyn + Levaquin x 7 days during last admission completed Zosyn x 4 days this admission, on Augmentin Day 3 resume Lasix 40mg today then 20mg po BID monitor BMP wean off o2 accordingly 12/22 Currently on room air Breath sounds clear Continue Lasix 20 mg p.o. twice daily today, may just need daily dosing Monitor closely (2) Hypoxemia: Plan: See plan for #1 (3) Hypomagnesemia: Plan: Noted to have marked hypomag with a level of 0.9 in ED - has a history of hypomag in the past for which he is on oral mag oxide 200 mg BID at baselined - Replete and monitor Hyponatremia Na 129 on 12/15 Na 122 on 12/15 pm Na 133 on 12/17 Na 139 on 12/18 and IV lasix held Na 134-135 now Discussed with nephrology, likely hypervolemic Nephrology consulted - continued with IV lasix, urea stopped - bicarb then elevated and Na up as well, stopped IV lasix - give one dose PO lasix yesterday (12/19) 12/21 Na 137 monitor Afib w/ RVR - overnight pt had short burst of afib w/ RVR, received metoprolol, magnesium -converted back to sinus rhythm immediately - monitor K and Mag w/ diuresis - replete as needed goal K ~4 and Mag ~2 12/22 currently in SR K stable Replace magnesium (4) Pressure ulcer of coccygeal region, stage 3: Plan: Consult wound care nurse - documentation from facility about what dressings pt is currently using placed on the chart for reference (5) Diabetes mellitus, type 2: Plan: Hold oral meds while admitted Diabetic diet Insulin sliding scale BSG 296 will consult Pharmacy Glycemic Control (6) Cerebral palsy: (7) PAF (paroxysmal atrial fibrillation): (8) GERD (gastroesophageal reflux disease): (9) Aortic stenosis: (10) Chronic obstructive pulmonary disease: (11) PVD (peripheral vascular disease): (12) Intellectual disability: Plan PT/OT consults - of note, pt did not seem to do well at [facility] after last admission, refused to participate per staff. Code Status: Full code per caregiver DVT Prophylaxis: Lovenox Admission and Anticipated Discharge Date Admission Date: December 14, 2022 Subjective ff up for hypoxia, CHF, pneumonia, etc seen resting in bed, not in distress appears comfortable awake, alert, gestures he wants to drink no signs of pain, distress No other symptoms noted by anchor operator of Systems Review of Systems: all noted and negative except for above Physical Exam Physical Exam: General- oriented x 0, not in distress, speaks in sentences with no effort or accessory muscle use Eyes- anicteric Neck- no JVD Lungs- clear breath sounds bilaterally, no wheezing Heart- normal rate, regular rhythm; no murmurs Abdomen- normal bowel sounds, nondistended, soft, no tenderness Extremities- no pretibial edema, no calf tenderness Neuro- alert, oriented x 0; no new gross focal neurologic deficits Skin- warm & dry Results & Data Results & Data ([facility]) Vital Signs (Past 12 Hours) Vital Signs Temp Pulse Pulse Resp BP Pulse Ox O2 Del Method 12/22/22 11:38 36.9 C 65 19 121/66 93 Room Air 12/22/22 07:45 36.6 C 63 18 158/84 H 93 Room Air 12/22/22 07:14 61 12/22/22 04:26 36.4 C L 58 L 16 124/71 94 Room Air all noted and reviewed including below
[2022-12-22] MEDS ORDERED: PHARMACY GLYCEMIC MGMT CONSULT PRN (17:46)
[2022-12-22] MEDS: SIMVASTATIN 40 MG TAB PO SCH (20:24)
[2022-12-22] MEDS: traZODone HCL 50 MG TAB PO SCH (20:24)
[2022-12-23] MEDS ORDERED: INSULIN ASPART PER UNIT SC ONE (08:45)
--- NOTE | 2022-12-23 08:53 | Pharmacy Report ---
Pharmacy Glycemic Short Note 2 - Date of Service December 23, 2022 - Glycemic Short BSG Results (Last 24 hours): 12/22/22 12/22/22 12/22/22 11:30 15:32 16:59 POC Glucose 213 H 88 180 H 12/22/22 12/23/22 12/23/22 19:52 08:21 08:32 POC Glucose 104 H 379 H* 389 H* OUTPATIENT ANTIDIABETIC REGIMEN: * 7.6% 11/25/25 * Metformin 1 gm BID, glimepiride 1 mg qd, Januvia 100 mg qd ASSESSMENT: * Patient with complicated PMH including type II diabetes, consulted on day 10 of admission for hyperglycemia. AM BSGs have been elevated in the 300s. Discussed with RN this AM, patient was eating overnight and AM BSG was while patient was eating breakfast. Do suspect patient needs more basal but difficult to determine amount given uncovered carbohydrates overnight. Will increase basal to 15 units this morning. * T2DM diet ordered, will tighten novolog parameters with breakfast and loosen for other meals, patient trends down throughout the day. * Add overnight checks for tonight PLAN FOR INPATIENT GLYCEMIC CONTROL: * Hold outpatient oral diabetes medications * Basal insulin * Lantus 15 units SQ this AM * Bolus insulin * NovoLog per scale ACHS or Q6hrs while NPO * Goal Range: Low 110 mg/dL - High 150 mg/dL * Correction Factor: 35 mg/dL/unit * Nutritional / Prandial insulin per carb ratio of 1 unit per 10 grams CHO consumed with breakfast, 12 grams CHO consumed lunch, dinner, HS
[2022-12-23] MEDS ORDERED: ALUMINUM/MAGNESIUM SUSP 30 ML UDC PO STA (09:10)
[2022-12-23] MEDS ORDERED: ALUMINUM/MAGNESIUM SUSP 30 ML UDC PO PRN (09:10)
[2022-12-23] MEDS: POLYETHYLENE (MIRALAX) 17 GM PACK PO SCH (09:51)
[2022-12-23] MEDS: OXcarbazepine 150 MG TABLET PO SCH ×2 (09:51→21:54)
[2022-12-23] MEDS: GABAPENTIN 300 MG CAP PO SCH ×3 (09:51→21:54)
[2022-12-23] MEDS: ADVANCED PROBIOTIC 1250 MG CAPSULE PO SCH (09:51)
[2022-12-23] MEDS: PANTOprazole 40 MG TAB PO SCH (09:51)
[2022-12-23] MEDS: METOCLOPRAMIDE HCL 5 MG TABLET PO SCH ×4 (09:51→21:55)
[2022-12-23] MEDS: PENTOXIFYLLINE 400MG EXT REL TAB PO SCH ×3 (09:51→21:54)
[2022-12-23] MEDS: METOPROLOL TARTRATE 25 MG TAB PO SCH ×2 (09:51→21:51)
[2022-12-23] MEDS: MAGNESIUM OXIDE 400 MG TAB PO SCH ×2 (09:51→21:53)
[2022-12-23] MEDS: guaiFENesin 600 MG TABCR PO SCH ×2 (09:51→21:55)
[2022-12-23] MEDS: ESCITALOPRAM OXALATE 20 MG TAB PO SCH (09:51)
[2022-12-23] MEDS: risperiDONE 2 MG TABLET PO SCH ×3 (09:51→21:55)
[2022-12-23] MEDS: CHOLECALCIFEROL 1,000 UNITS 25 MCG TAB PO SCH (09:51)
[2022-12-23] MEDS: MULTIVITAMIN TAB PO SCH (09:52)
[2022-12-23] MEDS: AMOXICILLIN/CLAVULANATE 875 MG TAB PO SCH ×2 (09:52→17:58)
[2022-12-23] MEDS: UMECLIDINIUM BROMIDE 62.5MCG/BLISTER 7 PUFFS/INHALER INH SCH (09:52)
[2022-12-23] MEDS: LORATADINE 10 MG TAB PO SCH (09:52)
[2022-12-23] MEDS: FUROSEMIDE 20 MG TAB PO SCH ×2 (09:52→17:57)
[2022-12-23] MEDS: ENOXAPARIN INJ 40 MG/0.4 ML SYR SQ SCH (09:53)
[2022-12-23] MEDS: ACETAMINOPHEN 325 MG TAB PO PRN (09:58)
[2022-12-23] MEDS: INSULIN ASPART PER UNIT SC SCH ×4 (09:59→21:52)
[2022-12-23] MEDS: LANTUS PER UNIT CHARGE SQ SCH (09:59)
--- NOTE | 2022-12-23 10:04 | XRay Report ---
KUB CLINICAL HISTORY: Abdominal pain. COMPARISON STUDY: CT of the abdomen and pelvis December 21, 2022. FINDINGS: IVC filter and cholecystectomy clips are incidentally noted noted. There are old bilateral pubic ring and rib fractures. Gas throughout small and large bowel is noted. There is no evidence for a bowel obstruction. Amount of stool is within normal limits. No evidence for free air although sens itivity diminished on supine exam. IMPRESSION: No evidence for a bowel obstruction. ACT 112: Negative or not required by law. Electronically signed by: Matias Benson M.D. 12/23/2022 10:03 AM
[2022-12-23] MEDS ORDERED: DICYCLOMINE HCL 10 MG CAP PO ONE (12:31)
--- NOTE | 2022-12-23 17:11 | Hospitalist Progress Note ---
Date of Service December 23, 2022 Assessment & Plan (1) Hypoxia: Plan: (1) Bilateral pneumonia: Plan: per Dr. Yanes's notes with addendum: 67 y/o male with complicated medical history of DM2, COPD, multiple admissions for pneumonia and hypoxia with recent discharge on 11/30/22 for same, PAF, aortic stenosis, PVD, and chronic ambulatory dysfunction, typically using a wheelchair at baseline who presented to the ED with new fever and hypoxia. Work-up in the ED seems most consistent with recurrent pneumonia/ hosp- acquired. Pt was evaluated for aspiration during last admission, which was negative, and caregiver denies recent witnessed aspiration episodes. Concern for a hospital-acquired pneumonia with recent admission to [facility] then discharge to [facility] so broad-spectrum antibiotics started in the ED. - Admitted to PCU - Continued broad-spectrum antibiotics - Zosyn and Vancomycin, vanco stopped -> and zosyn switched Jeannine Augmentin - hypoxic 84-86% on RA on admission and required 2L O2 - crackles on left side noted - repeat CXR - significant for pulm. vasc. congestion - added guafenesin, flutter valve, IS - discussed w/ RN - Minced and moist diet with thin liquids as per facility - started IV lasix for pulm. congestion, fluid overload - discussed w/ nephro 12/18 Appears that pt diuresed quite a bit, Na much improved and bicarb up Repeated CXR - pulm. congestion much improved 12/19 Na improved, IV lasix on hold - gavePO lasix 12/21 still on 2 L via nasal cannula CT Chest: 1. Moderate airspace opacities throughout the lungs, similar to chest radiograph of December 18, 2022 but improved since chest radiograph of December 15, 2022. These may reflect pneumonia or pulmonary edema. No pleural effusions. No pneumothorax. 2. Cardiomegaly. Dilatation of the central pulmonary arteries which suggests pulmonary arterial hypertension. already completed Unasyn + Levaquin x 7 days during last admission completed Zosyn x 4 days this admission, on Augmentin Day 3 resume Lasix 40mg today then 20mg po BID monitor BMP wean off o2 accordingly 12/22 Currently on room air Breath sounds clear Continue Lasix 20 mg p.o. twice daily today, may just need daily dosing Monitor closely 12/23 Remains on room air Euvolemic Change Lasix to 20 mg p.o. daily Repeat chest x-ray tomorrow Monitor (2) Hypoxemia: Plan: See plan for #1 (3) Hypomagnesemia: Plan: Noted to have marked hypomag with a level of 0.9 in ED - has a history of hypomag in the past for which he is on oral mag oxide 200 mg BID at baselined - Replete and monitor Hyponatremia Na 129 on 12/15 Na 122 on 12/15 pm Na 133 on 12/17 Na 139 on 12/18 and IV lasix held Na 134-135 now Discussed with nephrology, likely hypervolemic Nephrology consulted - continued with IV lasix, urea stopped - bicarb then elevated and Na up as well, stopped IV lasix - give one dose PO lasix yesterday (12/19) 12/21 Na 137 monitor Afib w/ RVR - overnight pt had short burst of afib w/ RVR, received metoprolol, magnesium -converted back to sinus rhythm immediately - monitor K and Mag w/ diuresis - replete as needed goal K ~4 and Mag ~2 12/22 currently in SR K stable Replace magnesium 12/23 In sinus rhythm (4) Pressure ulcer of coccygeal region, stage 3: Plan: Consult wound care nurse - documentation from facility about what dressings pt is currently using placed on the chart for reference Abdominal pain Per caregiver at long term, patient frequently gestures/indicates abdominal pain Work-up previously unrevealing CT abdomen pelvis: Unrevealing Repeat KUB today: Also unrevealing Given Maalox, and Tylenol Patient reassessed in the afternoon, patient more comfortable, smiling Has a history of reflux disease, already on Protonix (5) Diabetes mellitus, type 2: Plan: Hold oral meds while admitted Diabetic diet Insulin sliding scale consult Pharmacy Glycemic Control (6) Cerebral palsy: (7) PAF (paroxysmal atrial fibrillation): (8) GERD (gastroesophageal reflux disease): (9) Aortic stenosis: (10) Chronic obstructive pulmonary disease: (11) PVD (peripheral vascular disease): (12) Intellectual disability: Admission and Anticipated Discharge Date Admission Date: December 14, 2022 Subjective Follow-up for hypoxia, pneumonia, diastolic CHF, etc. seen resting in bed patient was calm, watching tv but upon seeing me enter the room, seemed to be upset, almost crying when asked if he is in pain, patient nodded when asked where the pain is, patient puts hand on his abdomen no signs of shortness of breath or any other issues RN also observed similar behavior discussed with caregiver at long term- confirms patient does behave this way frequently at , has had 2 ER visits for abdominal pain, but work up unrevealing Review of Systems Constitutional: all noted and negative except for above Physical Exam Physical Exam: General- oriented x 3, not in distress, speaks in sentences with no effort or accessory muscle use Eyes- anicteric Neck- no JVD Lungs- clear breath sounds bilaterally, no rales/wheezes Heart- normal rate, regular rhythm; no murmurs Abdomen- normal bowel sounds, nondistended, soft, nontender Extremities- no pretibial edema, no calf tenderness Neuro- alert, oriented x 3; no gross focal neurologic deficits Skin- warm & dry Results & Data Results & Data ([facility]) Vital Signs (Past 12 Hours) Vital Signs Temp Pulse Resp BP BP Pulse Ox O2 Del Method 12/23/22 15:35 36.7 C 67 18 109/63 94 Room Air 12/23/22 11:36 36.4 C L 56 L 20 152/83 H 93 Room Air 12/23/22 08:17 36.5 C 65 20 122/73 94 Room Air all noted and reviewed including below
[2022-12-23] MEDS ORDERED: LANTUS PER UNIT CHARGE SQ SCH (21:00)
[2022-12-23] MEDS: SIMVASTATIN 40 MG TAB PO SCH (21:54)
[2022-12-23] MEDS: traZODone HCL 50 MG TAB PO SCH (21:59)
[2022-12-24] MEDS: INSULIN ASPART PER UNIT SC SCH ×4 (00:41→12:11)
[2022-12-24] MEDS: CHOLECALCIFEROL 1,000 UNITS 25 MCG TAB PO SCH (08:24)
[2022-12-24] MEDS: LORATADINE 10 MG TAB PO SCH (08:25)
[2022-12-24] MEDS: risperiDONE 2 MG TABLET PO SCH ×2 (08:25→15:12)
[2022-12-24] MEDS: guaiFENesin 600 MG TABCR PO SCH (08:25)
[2022-12-24] MEDS: MULTIVITAMIN TAB PO SCH (08:27)
[2022-12-24] MEDS: AMOXICILLIN/CLAVULANATE 875 MG TAB PO SCH (08:27)
[2022-12-24] MEDS: ADVANCED PROBIOTIC 1250 MG CAPSULE PO SCH (08:27)
[2022-12-24] MEDS: MAGNESIUM OXIDE 400 MG TAB PO SCH (08:27)
[2022-12-24] MEDS: ESCITALOPRAM OXALATE 20 MG TAB PO SCH (08:27)
[2022-12-24] MEDS: PANTOprazole 40 MG TAB PO SCH (08:27)
[2022-12-24] MEDS: OXcarbazepine 150 MG TABLET PO SCH (08:28)
[2022-12-24] MEDS: PENTOXIFYLLINE 400MG EXT REL TAB PO SCH ×2 (08:28→15:40)
[2022-12-24] MEDS: GABAPENTIN 300 MG CAP PO SCH ×2 (08:30→15:00)
[2022-12-24] MEDS: METOPROLOL TARTRATE 25 MG TAB PO SCH (08:30)
[2022-12-24] MEDS: METOCLOPRAMIDE HCL 5 MG TABLET PO SCH ×2 (08:31→12:14)
[2022-12-24] MEDS: ENOXAPARIN INJ 40 MG/0.4 ML SYR SQ SCH (08:32)
[2022-12-24] MEDS: UMECLIDINIUM BROMIDE 62.5MCG/BLISTER 7 PUFFS/INHALER INH SCH (08:34)
[2022-12-24] MEDS: LANTUS PER UNIT CHARGE SQ SCH (08:41)
[2022-12-24] MEDS: POLYETHYLENE (MIRALAX) 17 GM PACK PO SCH (09:31)
[2022-12-24 12:28] LABS: Calcium 9.7 mg/dl (8.5-10.1); Creatinine Clr Calc Pharmacy 98.3 ml/min; Est GFR (African American) 115.1 ml/min; Est GFR (Non-African American) 99.3 ml/min; Potassium 4.2 mmol/L (3.5-5.1)
--- NOTE | 2022-12-24 12:45 | Pharmacy Report ---
Pharmacy Glycemic Short Note 2 - Date of Service December 24, 2022 - Glycemic Short BSG Results (Last 24 hours): 12/23/22 12/23/22 12/23/22 17:53 18:07 20:00 Glucose POC Glucose 101 H 120 H 214 H 12/24/22 12/24/22 12/24/22 00:39 04:17 07:25 Glucose POC Glucose 136 H 126 H 192 H 12/24/22 12/24/22 11:34 11:41 Glucose 178 H POC Glucose 177 H OUTPATIENT ANTIDIABETIC REGIMEN: * 7.6% 11/25/25 * Metformin 1 gm BID, glimepiride 1 mg qd, Januvia 100 mg qd ASSESSMENT: 12/24 * BSGs have trended down, AM BSG 192 mg/dL- will continue with 15 units of lantus qAM and set scale for pm 5/10 units * Lunch BSG slightly above goal but tending down. Continue current novolog parameters 12/23 * Patient with complicated PMH including type II diabetes, consulted on day 10 of admission for hyperglycemia. AM BSGs have been elevated in the 300s. Discussed with RN this AM, patient was eating overnight and AM BSG was while patient was eating breakfast. Do suspect patient needs more basal but difficult to determine amount given uncovered carbohydrates overnight. Will increase basal to 15 units this morning. * T2DM diet ordered, will tighten novolog parameters with breakfast and loosen for other meals, patient trends down throughout the day. * Add overnight checks for tonight PLAN FOR INPATIENT GLYCEMIC CONTROL: * Hold outpatient oral diabetes medications * Basal insulin * Lantus 15 units SQ this AM; 5/10 units this PM * Bolus insulin * NovoLog per scale ACHS or Q6hrs while NPO * Goal Range: Low 110 mg/dL - High 150 mg/dL * Correction Factor: 35 mg/dL/unit * Nutritional / Prandial insulin per carb ratio of 1 unit per 10 grams CHO consumed with breakfast, 12 grams CHO consumed lunch, dinner, HS
--- NOTE | 2022-12-24 14:42 | Hospitalist Progress Note ---
Date of Service December 24, 2022 Assessment & Plan (1) Hypoxia: Plan: ACUTE HYPOXIC RESPIRATORY FAILURE, SECONDARY TO ACUTE ON CHRONIC DIASTOLIC CHF EXACERBATION, PNEUMONIA per Dr. Yanes's notes with addendum: 67 y/o male with complicated medical history of DM2, COPD, multiple admissions for pneumonia and hypoxia with recent discharge on 11/30/22 for same, PAF, aortic stenosis, PVD, and chronic ambulatory dysfunction, typically using a wheelchair at baseline who presented to the ED with new fever and hypoxia. Work-up in the ED seems most consistent with recurrent pneumonia/ hosp- acquired. Pt was evaluated for aspiration during last admission, which was negative, and caregiver denies recent witnessed aspiration episodes. Concern for a hospital-acquired pneumonia with recent admission to [facility] then discharge to [facility] so broad-spectrum antibiotics started in the ED. - Admitted to PCU - Continued broad-spectrum antibiotics - Zosyn and Vancomycin, vanco stopped -> and zosyn switched Jeannine Augmentin - hypoxic 84-86% on RA on admission and required 2L O2 - crackles on left side noted - repeat CXR - significant for pulm. vasc. congestion - added guafenesin, flutter valve, IS - discussed w/ RN - Minced and moist diet with thin liquids as per facility - started IV lasix for pulm. congestion, fluid overload - discussed w/ nephro CT Chest: 1. Moderate airspace opacities throughout the lungs, similar to chest radiograph of December 18, 2022 but improved since chest radiograph of December 15, 2022. These may reflect pneumonia or pulmonary edema. No pleural effusions. No pneumothorax. 2. Cardiomegaly. Dilatation of the central pulmonary arteries which suggests pulmonary arterial hypertension. Patient completed 10-day course of antibiotics including Zosyn plus Augmentin Financial Counselor consulted Placed on Lasix 20 mg p.o. twice daily Patient gradually improved Weaned off oxygen supplement Chest x-ray showing improvement Hyponatremia resolved Discharge plan Lasix 20 mg p.o. daily Fluid restriction of 2 L/day Repeat basic metabolic profile in 2 to 3 days to monitor sodium level Monitor volume status closely Hypomagnesemia: Plan: -- Continue magnesium 400 mg twice daily Hyponatremia Secondary to volume overload Given Lasix as per #1 Sodium gradually improved, now 133 Management per #1 Pressure ulcer of coccygeal region, stage 3: Consulted wound care nurse Daily wound care and dressings Abdominal pain Per caregiver at long-term, patient frequently gestures/indicates abdominal pain Work-up previously unrevealing CT abdomen pelvis: Unrevealing Repeat KUB: Also unrevealing Given Maalox, and Tylenol Patient reassessed, patient more comfortable, smiling Has a history of reflux disease, already on Protonix -- Monitor closely Diabetes mellitus, type 2: Plan: --Continue usual medication regimen Other chronic issues: Cerebral palsy PAF (paroxysmal atrial fibrillation) GERD (gastroesophageal reflux disease) Aortic stenosis Chronic obstructive pulmonary disease PVD (peripheral vascular disease) Intellectual disability Admission and Anticipated Discharge Date Admission Date: December 14, 2022 Subjective ff up for hypoxia, diastolic CHF, pneumonia, etc seen resting in bed, comfortable smiling denies pain, shortness of breath in good spirits ate breakfast with no problems on room air no other issues Review of Systems Review of Systems: all noted and negative except for above Physical Exam Physical Exam: General- awake, alert, not in distress, speaks in sentences with no effort or accessory muscle use Eyes- anicteric Neck- no JVD Lungs- clear BS BL Heart- normal rate, regular rhythm; no murmurs Abdomen- normal bowel sounds, nondistended, soft, nontender Extremities- no pretibial edema, no calf tenderness Neuro- alert, oriented x 3; no gross focal neurologic deficits Skin- warm & dry Results & Data Results & Data ([facility]) Vital Signs (Past 12 Hours) Vital Signs Temp Pulse Pulse Resp BP BP Pulse Ox 12/24/22 11:18 36.5 C 67 117/61 93 12/24/22 08:46 12/24/22 07:46 36.7 C 64 117/73 91 12/24/22 07:19 59 L 12/24/22 03:53 36.8 C 61 18 112/63 91 O2 Del Method 12/24/22 11:18 Room Air 12/24/22 08:46 Room Air 12/24/22 07:46 Room Air 12/24/22 07:19 12/24/22 03:53 Room Air all noted and reviewed including below
--- NOTE | 2022-12-24 14:43 | XRay Report ---
XR chest 1V portable CLINICAL HISTORY: ff up pulmonary edema TECHNIQUE: Single frontal radiograph of the chest was obtained. Comparison: Comparison is made to chest radiograph 12/18/2022 FINDINGS: No lines and tubes are seen. The cardiomediastinal silhouette is normal. Interval improvement in airs pace opacities compatible with improving pulmonary edema. Residual opacity is seen at the left lower lung compatible with atelectasis, pneumonia, and/or aspiration. No evidence of pleural effusion or pn eumothorax. Old healed rib fractures are seen on the right. IMPRESSION: 1. Interval improvement in pulmonary edema, essentially resolved. 2. Redemonstration of left lower lung airspace opacity which may represent atelectasis, pneumonia, a nd/or aspiration. ACT 112: Negative or not required by law. Electronically signed by: Linwood Crews M.D. 12/24/2022 2:42 PM
--- NOTE | 2022-12-24 15:15 | Discharge Summary ---
Discharge Summary Date of Service December 24, 2022 Notes For Next Care Provider Please monitor volume status closely. Titrate Lasix p.o. accordingly. Repeat basic metabolic profile in 2 to 3 days. Monitor sodium level closely. Medication Changes From Visit Lasix 20 mg p.o. daily Increase magnesium from 200 mg twice a day to 400 mg twice a day MiraLAX daily Admission HPI Per Admitting Provider This is a 66 y/o male with a PMH of intellectual disability due to cerebral palsy, DM2, COPD, PVD, TRINIDAD, GERD, chronic stasis dermatitis, hearing loss, osteo porosis, and valvular heart disease (mild MR/TR/Aortic Stenosis) who presents to the ED today from [facility] with new-onset hypoxia and fever early this morning. History was obtained by extensive review of patient's chart and from the pt's caregiver at bedside as pt was unable to contribute to the history due to intellectual disability. Pt recently admitted to this facility from 11/24-11/30/22 with acute hypoxemic respiratory failure and sepsis with underlying pneumonia. Pt was treated with Unasyn and Levaquin. Evaluated by speech therapy due to concerns for aspiration - video swallow was negative for aspiration. Discharged to [facility] for rehab. However, pt apparently refused to participate with much of the rehab activities so he was sent back to [facility] after a few days. When he first returned, he continued to have weakness and some issues with falls. Over the last several days, this has been improving with no falls in the last few days per caregiver. Appetite was initially decreased but has gradually improved back to baseline. Pt was seen by PCP yesterday and was doing well. Sometime overnight, pt developed a fever with a temp this AM of 102F. Staff also noted pt to be hypoxic on room air with a Pox of 84%. Due to these findings, pt was referred to the ED for evaluation. In the ED, he had persistent hypoxia but improved with 2-3L of O2. Given broad spectrum IV antibiotics with Zosyn and Vancomycin due to concern for hospital- acquired pneumonia in view of recent admission. Magnesium also noted to be low despite oral supplementation at baseline - IV mag repletion started in the ED. No vomiting, diarrhea, urinary difficulties. Chronic cough has not been worse than usual. Per caregiver, they have noted intermittent LE described as "notic eable" but not severe. She notes that pt's gabapentin dose was recently increased. Admission Exam Per Admitting Provider Neck: trachea midline Respiratory: no respiratory distress and no labored breathing Auscultation: + crackles and + rales (left > right ) Cardiovascular: Rate/Rhythm: regular rate and regular rhythm Heart Sounds: + murmur Vessels: dorsalis pedis pulses present and radial pulses present Extremities: no pedal edema Gastrointestinal (Abdomen): Inspection/Auscultation: normal bowel sounds; abdomen not distended Percussion/Palpation: abdomen soft; abdomen nontender Musculoskeletal: Head/Neck/Chest: normocephalic and neck supple Skin: stasis changes bilateral LE Neurologic: moves all extremities; no focal motor deficits Psychiatric: Orientation: alert and oriented to person Principal Dx & Hospital Course #1 = Principal Diagnosis (1) Hypoxia: ACUTE HYPOXIC RESPIRATORY FAILURE, SECONDARY TO ACUTE ON CHRONIC DIASTOLIC CHF EXACERBATION, PNEUMONIA per Dr. Yanes's notes with addendum: 67 y/o male with complicated medical history of DM2, COPD, multiple admissions for pneumonia and hypoxia with recent discharge on 11/30/22 for same, PAF, aortic stenosis, PVD, and chronic ambulatory dysfunction, typically using a wheelchair at baseline who presented to the ED with new fever and hypoxia. Work-up in the ED seems most consistent with recurrent pneumonia/ hosp- acquired. Pt was evaluated for aspiration during last admission, which was negative, and caregiver denies recent witnessed aspiration episodes. Concern for a hospital-acquired pneumonia with recent admission to [facility] then discharge to [facility] so broad-spectrum antibiotics started in the ED. - Admitted to PCU - Continued broad-spectrum antibiotics - Zosyn and Vancomycin, vanco stopped -> and zosyn switched Jeannine Augmentin - hypoxic 84-86% on RA on admission and required 2L O2 - crackles on left side noted - repeat CXR - significant for pulm. vasc. conges tion - added guafenesin, flutter valve, IS - discussed w/ RN - Minced and moist diet with thin liquids as per facility - started IV lasix for pulm. congestion, fluid overload - discussed w/ nephro CT Chest: 1. Moderate airspace opacities throughout the lungs, similar to chest radiograph of December 18, 2022 but improved since chest radiograph of December 15, 2022. These may reflect pneumonia or pulmonary edema. No pleural effusions. No pneumothorax. 2. Cardiomegaly. Dilatation of the central pulmonary arteries which suggests pulmonary arterial hypertension. Patient completed 10-day course of antibiotics including Zosyn plus Augmentin Out Of Town Collection Clerk consulted Placed on Lasix 20 mg p.o. twice daily Patient gradually improved Weaned off oxygen supplement Chest x-ray showing improvement Hyponatremia resolved Discharge plan Lasix 20 mg p.o. daily Fluid restriction of 2 L/day Repeat basic metabolic profile in 2 to 3 days to monitor sodium level Monitor volume status closely Hypomagnesemia: Plan: -- Continue magnesium 400 mg twice daily Hyponatremia Secondary to volume overload Given Lasix as per #1 Sodium gradually improved, now 133 Management per #1 Pressure ulcer of coccygeal region, stage 3: Consulted wound care nurse Daily wound care and dressings Abdominal pain Per caregiver at [facility], patient frequently gestures/indicates abdominal pain Work-up previously unrevealing CT abdomen pelvis: Unrevealing Repeat KUB: Also unrevealing Given Maalox, and Tylenol Patient reassessed, patient more comfortable, smiling Has a history of reflux disease, already on Protonix -- Monitor closely Diabetes mellitus, type 2: Plan: --Continue usual medication regimen Other chronic issues: Cerebral palsy PAF (paroxysmal atrial fibrillation) GERD (gastroesophageal reflux disease) Aortic stenosis Chronic obstructive pulmonary disease PVD (peripheral vascular disease) Intellectual disability Discharge Exam General- awake, alert, not in distress, breathing with no effort or accessory muscle use Eyes- anicteric Neck- no JVD Lungs- clear BS BL Heart- normal rate, regular rhythm; no murmurs Abdomen- normal bowel sounds, nondistended, soft, nontender Extremities- no pretibial edema, no calf tenderness Neuro- alert, oriented x 3; no gross focal neurologic deficits Skin- warm & dry Updated Medication List Medication Instructions Recorded Confirmed Type albuterol sulfate 90 mcg/actuation 2 puff inhalation Q4H PRN 12/23/18 12/14/22 History aerosol inhaler (ProAir HFA) Shortness Of Breath cholecalciferol (vitamin D3) 25 1,000 unit PO QAM 12/23/18 12/14/22 History mcg (1,000 unit) capsule (Vitamin D3) loperamide 2 mg tablet (Imodium 2 mg PO UD PRN Diarrhea 12/23/18 12/14/22 History A-D) magnesium oxide 200 mg PO BID 12/23/18 12/14/22 History metoclopramide HCl 5 mg tablet 5 mg PO ACHS 12/23/18 12/14/22 History (Reglan) omeprazole 20 mg tablet,delayed 20 mg PO QAM 12/23/18 12/14/22 History release simvastatin 40 mg tablet (Zocor) 40 mg PO HS 12/23/18 12/14/22 History sitagliptin phosphate 100 mg 100 mg PO QAM 12/23/18 12/14/22 History tablet (Januvia) trazodone 50 mg tablet 50 mg PO HS MOOD 12/23/18 12/14/22 History loratadine 10 mg tablet (Claritin) 10 mg PO QAM 04/03/20 12/14/22 History pentoxifylline 400 mg 400 mg PO TID 04/03/20 12/14/22 History tablet,extended release umeclidinium 62.5 mcg/actuation 1 inh inhalation QAM 03/02/21 12/14/22 History blister powder for inhalation (Incruse Ellipta) risperidone 2 mg tablet 2 mg PO TID 03/11/21 12/14/22 History aluminum-mag hydroxide-simethicone 30 ml PO QPM 11/23/21 12/14/22 History 200 mg-200 mg-20 mg/5 mL oral susp clonazepam 0.5 mg tablet 0.5 mg PO BID anxiety 11/23/21 12/14/22 History multivitamin (Daily-Shaka tablet) 1 tab PO QAM ##0 11/23/21 12/14/22 History escitalopram oxalate 20 mg tablet 20 mg PO QAM 01/03/22 12/14/22 History metformin 500 mg tablet,extended 1,000 mg PO BIDM 01/03/22 12/14/22 History release 24 hr oxcarbazepine 150 mg tablet 150 mg PO BID 04/08/22 12/14/22 History acetaminophen 325 mg tablet 650 mg PO QID PRN pain #0 tabs 05/03/22 12/14/22 Rx (Tylenol) gabapentin 300 mg capsule 300 mg PO TID 11/24/22 12/14/22 History glimepiride 1 mg tablet 1 mg PO DAILY 11/24/22 12/14/22 History metoprolol tartrate 25 mg tablet 12.5 mg PO BID #60 tabs 11/30/22 12/14/22 Rx L.acidop,casei,lactis,rham-B.lact,lakia 2 cap PO DAILY 30 days #60 caps 12/24/22 Rx 625 mg (10 billion cell) capsule (Advanced Probiotic) furosemide 20 mg tablet 20 mg PO DAILY #30 tabs 12/24/22 Rx magnesium oxide 400 mg (241.3 mg 400 mg PO BID 30 days #60 tabs 12/24/22 Rx magnesium) tablet polyethylene glycol 3350 17 gram 17 g PO DAILY 30 days #30 ea 12/24/22 Rx oral powder packet (Miralax) Hospital Stay Data Consultations 12/14/22 09:27 ED Decision to Admit Stat 12/16/22 07:15 Consult Nephrology Routine Diagnostic Imagining Performed 12/14/22 07:17 CT head/brain wo con Stat CT DOSE: 1944.98 mGy.cm COMPARISON: 11/24/2022 FINDINGS: No acute intracranial hemorrhage, midline shift, intracranial mass, hydrocephalus, territorial ischemia or abnormal extra-axial collection. Motion degraded exam. Involutional changes with chronic microvascular ischemic disease. Unchanged calcifications of the anterior falx cerebri. The calvarium is intact. Prior bilateral lens repair. The paranasal sinuses, mastoid air cells, and middle ear cavities are clear. IMPRESSION: Motion degraded exam. No acute intracranial abnormality identified. ACT 112: Negative or not required by law. The above report was generated using voice recognition software. It may contain grammatical, syntax or spelling errors. Electronically signed by: Bradley Whalen M.D. 12/14/2022 9:10 AM 12/21/22 07:53 CT chest diagnostic wo con Routine CT DOSE: 556.03 mGy.cm TECHNIQUE: Axial images of the chest were obtained without IV contrast. Images were reviewed in the axial, sagittal, and coronal planes. IV contrast was not administered for this examination. Automated exposure control was utilized for the study. A dose lowering technique was utilized adhering to the principles of ALARA. FINDINGS: This study is compromised by motion artifact. Moderate cardiomegaly and dilatation of the central pulmonary arteries is again noted. There is no pericardial effusion. No pneumothorax or pleural effusion is present. There is no thoracic lymphadenopathy. Levoscoliosis centered within the lower thoracic spine is again noted. There are multiple old thoracic spine compression fractures. These are unchanged since CT of August 15, 2021. Central airways are grossly patent. Moderate multifocal airspace opacities throughout the lungs are present. These are similar to chest radiograph of December 16, 2022 and remain improved since CT of December 15, 2022. The abdomen and pelvis CT will be reported separately. There are old bilateral rib fractures. IMPRESSION: 1. Moderate airspace opacities throughout the lungs, similar to chest radiograph of December 18, 2022 but improved since chest radiograph of December 15, 2022. These may reflect pneumonia or pulmonary edema. No pleural effusions. No pneumothorax. 2. Cardiomegaly. Dilatation of the central pulmonary arteries which suggests pulmonary arterial hypertension. ACT 112: Negative or not required by law. 12/21/22 08:46 CT abd pelvis wo con Stat COMPARISON STUDY: KUB December 18, 2022. CT of the abdomen and pelvis August 15, 2021. TECHNIQUE: Axial images of the abdomen and pelvis were obtained without IV contrast. Images were reviewed in the axial, sagittal, and coronal planes. Automated exposure control was utilized for the study. A dose lowering technique was utilized adhering to the principles of ALARA. FINDINGS: Moderate airspace opacities are noted within the lungs. The chest CT will be reported separately. This study is significantly compromised by motion artifact. No pneumatosis, free air or portal venous gas is present. Gallbladder is surgically absent. IVC filter is in place. Unenhanced images of the liver, spleen, adrenal glands, kidneys and pancreas are grossly unremarkable. There is no hydronephrosis. There is no evidence for a bowel obstruction. The appendix is unremarkable. Bladder is distended. No fluid collection is identified. There is minimal presacral stranding. Moderate amount of stool within the colon and rectum is present. No definite lymphadenopathy. Multiple old fractures are noted, clearing fractures of multiple lower thoracic vertebra, bilateral pubic rami, the sacrum and medial left iliac bone. No acute fractures are identified. IMPRESSION: 1. Exam significantly compromised by motion artifact. No definite acute process. No bowel obstruction. 2. Moderate amount of stool within the colon and rectum. 3. Airspace opacities within lungs which may reflect pneumonia or pulmonary edema. ACT 112: Negative or not required by law. Electronically signed by: Matias Benson M.D. 12/21/2022 10:23 AM Pending Results Patient Have Any Pending Studies at Discharge: Yes Discharge Instructions Given to Patient (Per Discharging Provider) PLEASE REFER TO YOUR NEW MEDICATION LIST AND FOLLOW INSTRUCTIONS CAREFULLY. YOUR NEW MEDICATIONS INCLUDE: Lasix 20 mg p.o. daily Increase magnesium from 200 mg twice a day to 400 mg twice a day MiraLAX daily PLEASE CONTINUE FLUID RESTRICTION TO 2000ML OR 8 CUPS PER DAY. PLEASE CALL YOUR PRIMARY CARE PHYSICIAN OR RETURN TO THE ER IF WITH WORSENING OF SYMPTOMS, INCLUDING Shortness of breath, cough, fevers or chills, nausea vomiting, weakness, leg swelling, etc. FOLLOW UP WITH PRIMARY CARE PHYSICIAN OUTLINED ABOVE. Total Time Total Time Spent Total Time Spent (In Minutes): >30 minutes
[2022-12-25] MEDS ORDERED: FUROSEMIDE 20 MG TAB PO SCH (09:00)
== END 2022-12-24 16:19 | disposition home health service (06) | DRG 193 ==
LOC: ED 07:14 → SUATTDRO 09:49 → 2S 09:49 → 2W 12-20 14:18

== ENCOUNTER 2023-02-08 09:34 | Inpatient (IN) ==
[2023-02-08] MEDS ORDERED: SODIUM CHLORIDE 0.9% 1000ML 1,000 ML IV SCH (09:45)
--- NOTE | 2023-02-08 09:46 | Emergency Department Note ---
Impression & Plan Hypoxia ADMIT ED Provider Note HPI: The patient is a 59-year-old gentleman with history of intellectual disability secondary to cerebral palsy, presents the emergency department with a chief complaint from his long-term of fever and cough. Patient reportedly was hypox ic this morning and placed on nasal cannula oxygen via EMS. On arrival here to the ED the patient is noted to be hypotensive he is alert, does not appear to be in any acute physical distress, he is unable to provide me with history secondary to his disability. Patient is noted to be hypotensive in the 80s systolic on my initial assessment, he is not tachycardic, he arrives without fever, he is saturating well on nasal cannula oxygen on my initial assessment. ROS: - Per HPI *Outpatient medications and allergy history reviewed. *Pertinent external medical records reviewed. PE: General: Alert, frail-appearing, no acute distress HEENT: Normocephalic, trachea midline Eyes: Extraocular eye movement is intact, no scleral erythema Pulmonary: Diminished breath sounds bilaterally, somewhat coarse at the bases, no expiratory wheezing Cardio: Regular rate and rhythm GI: Abdomen is soft to palpation : No suprapubic tenderness MSK: No evidence of trauma or malformation of the extremities, no edema Skin: No evidence of rash Neuro: Alert, baseline deficits with history of cerebral palsy Psychiatric: Cooperative night monitor: (As interpreted by myself): - An order was placed for continuous cardiac monitoring - Patient was noted to be in sinus rhythm with a rate of 90 EKG: (As interpreted by myself): Rate: 110 Rhythm: Sinus tachycardia Intervals: Within normal limits ST changes: No ST elevation VA criteria present Time: 937 Interventions provided in ED: -IV fluid bolus, IV Zosyn Differential Diagnosis: Sepsis, urinary tract infection, pneumonia, pulmonary embolism, acute coronary syndrome, viral URI, acute colitis, viral gastroenteritis, amongst other potential pathologies. Medical Decision Making: The patient is a frail-appearing 67-year-old gentleman with history of cerebral palsy, presented to the emergency department with hypoxia from his living facility. On arrival here to the ED the patient did have oxygen saturations down to 88% and therefore was placed on nasal cannula oxygen with good improvement. IV was established and lab work obtained, patient was placed on groundwater monitoring technician. Chest x-ray did not show any evidence of pneumonia, septic work-up was initiated including blood cultures. There is no leukocytosis, hemoglobin is stable at 13.2, platelet count is slightly reduced at 129 which has been an issue for the patient previously. Venous blood gas was obtained and shows slight acidosis with pH of 7.30, PCO2 slightly elevated at 52, given the patient's history of COPD with diminished breath sounds bilaterally he was given DuoNeb breathing treatment and IV Solu-Medrol here in the ED. Patient's abdomen is soft on my exam, he did have several episodes of watery diarrhea while here in the ED. Stool PCR was sent. Did return positive for norovirus. C. difficile gene is positive, reflex is pending. Troponin slightly elevated at 25.6, patient denies any pain when asked, we will plan to trend upon admission, EKG does not show any evidence of ST elevation VA. Magnesium low at 1.0 which will be ordered for IV repletion. Sodium also slightly low at 131, patient was given IV fluids with normal saline. Glucose also elevated at 331, no evidence of any anion gap elevation. Urinalysis shows trace ketones, 2+ leukocyte Estrace, pyuria, nitrite negative. Patient's blood pressure did improve with IV fluid bolus at 30 cc/kg, he was given IV Zosyn given history of cephalosporin allergy for possible urinary tract infection. I did discuss all the above findings with the on-call hospitalist for [facility], Dr. King, patient was placed for admission in stable condition. All of the above was discussed with the patient's engine emission technician from his living facility at the bedside. She is updated and aware of the plan for admission. Consultants: Hospitalist service, Dr. King Disposition discussion held by myself with: Patient's engine emission technician at bedside Critical care time: (37 minutes) -Stabilization of hypoxia requiring supplemental oxygen for correction, time spent at the bedside, interpretation of diagnostic studies, discussion with patient support member at the bedside, discussion with other physicians and arrangement of admission Diagnosis: 1. Hypoxia, acute 2. COPD exacerbation with hypercapnia 3. Viral illness with diarrhea, norovirus positive 4. Hypomagnesemia, acute 5. Elevated high-sensitivity troponin level Disposition: Admission Aditya Andujar DO Emergency Medicine Past Med/Surg History Medical History Anxiety Aortic stenosis Mild per 09/2021 ECHO Asthma CAP (community acquired pneumonia) Cerebral palsy Chronic obstructive pulmonary disease Well controlled > hasnt used res inh for 2 yrs COPD (chronic obstructive pulmonary disease) Depression Diabetes mellitus, type 2 Diabetes mellitus, type II DJD (degenerative joint disease) Elevated troponin Femoral condyle fracture GERD (gastroesophageal reflux disease) GERD (gastroesophageal reflux disease) History of COVID-19 Tested positive 09/21/21 [facility] ([facility] Sinus congestion only. no hospitalization. No current problems. Hospital-acquired pneumonia Hyperglycemia Hyperlipidemia Hypotension Intellectual disability Lives at [facility] facility Neck pain Neuropathy TRINIDAD (obstructive sleep apnea) TRINIDAD (obstructive sleep apnea) Per records Osteoporosis Peroneal palsy Pica Pneumonia Presence of IVC filter Placed in 1997 per records PVD (peripheral vascular disease) Scoliosis Severe sepsis Tibia fracture TMJ (temporomandibular joint disorder) Venous insufficiency Surgical History History of cholecystectomy History of colonoscopy History of tooth extraction S/P cataract surgery Left and Right Family History Father Coronary heart disease Social History Smoking Status: Never smoker packs per day: 30; Second Hand Exposure: No; Hx Alcohol Use: No Hx Substance Use: No Preferred Language: Comoran Communication Ability: Impaired Communication Ability Comment: MR [facility]IVES AT [facility] Communication Tools: Other Visual Impairment: No Limitations Hearing Ability: Use of Hearing Aid Naphthalene Still Operator Required: No Beliefs That Will Affect Care: None marital status: Single marital status details: Skills Current Living Situation: Personal Care Facility Current Living Situation Comment: Skilled in long-term current occupational status: disabled How many Children do You have: 0 Feels Safe at Home: Yes caffeine: No Assistive Devices: Hospital Bed and Wheelchair Allergies Allergies Allergy/AdvReac Type Severity Reaction Status Date / Time lactose Allergy Intermediate GI SYMPTOMS Verified 01/13/23 11:09 aspirin Allergy Unknown UNKNOWN Verified 01/13/23 11:09 REACTION cephalexin Allergy Unknown UNKNOWN Verified 01/13/23 11:09 REACTION Cephalosporins Allergy Unknown UNKNOWN Verified 01/13/23 11:09 REACTION Corticosteroids Allergy Unknown UNKNOWN Verified 01/13/23 11:09 (Glucocorticoids) REACTION methylprednisolone Allergy Unknown UNKNOWN Verified 01/13/23 11:09 REACTION shellfish derived Allergy Unknown UNKNOWN Verified 01/13/23 11:09 REACTION Home Meds Home Medications Medication Instructions Recorded Confirmed albuterol sulfate 90 mcg/actuation 2 puff inhalation Q4H PRN 12/23/18 02/08/23 aerosol inhaler (ProAir HFA) Shortness Of Breath cholecalciferol (vitamin D3) 25 1,000 unit PO QAM 12/23/18 02/08/23 mcg (1,000 unit) capsule (Vitamin D3) loperamide 2 mg tablet (Imodium 2 mg PO UD PRN Diarrhea 12/23/18 02/08/23 A-D) metoclopramide HCl 5 mg tablet 5 mg PO ACHS 12/23/18 02/08/23 (Reglan) omeprazole 20 mg tablet,delayed 20 mg PO QAM 12/23/18 02/08/23 release simvastatin 40 mg tablet (Zocor) 40 mg PO HS 12/23/18 02/08/23 sitagliptin phosphate 100 mg 100 mg PO QAM 12/23/18 02/08/23 tablet (Januvia) trazodone 50 mg tablet 50 mg PO HS MOOD 12/23/18 02/08/23 loratadine 10 mg tablet (Claritin) 10 mg PO QAM 04/03/20 02/08/23 pentoxifylline 400 mg 400 mg PO TID 04/03/20 02/08/23 tablet,extended release umeclidinium 62.5 mcg/actuation 1 inh inhalation QAM 03/02/21 02/08/23 blister powder for inhalation (Incruse Ellipta) risperidone 2 mg tablet 2 mg PO TID 03/11/21 02/08/23 aluminum-mag hydroxide-simethicone 30 ml PO QPM 11/23/21 02/08/23 200 mg-200 mg-20 mg/5 mL oral susp clonazepam 0.5 mg tablet 0.5 mg PO BID anxiety 11/23/21 02/08/23 multivitamin (Daily-Shaka tablet) 1 tab PO QAM ##0 11/23/21 02/08/23 escitalopram oxalate 20 mg tablet 20 mg PO QAM 01/03/22 02/08/23 metformin 500 mg tablet,extended 1,000 mg PO BIDM 01/03/22 02/08/23 release 24 hr oxcarbazepine 150 mg tablet 225 mg PO BID 04/08/22 02/08/23 gabapentin 300 mg capsule 300 mg PO TID 11/24/22 02/08/23 glimepiride 1 mg tablet 1 mg PO DAILY 11/24/22 02/08/23 Previous Rx's Medication Instructions Recorded acetaminophen 325 mg tablet 650 mg PO QID PRN pain #0 tabs 05/03/22 (Tylenol) metoprolol tartrate 25 mg tablet 12.5 mg PO BID #60 tabs 11/30/22 L.acidop,casei,lactis,rham-B.lact,lakia 2 cap PO DAILY 30 days #60 caps 12/24/22 625 mg (10 billion cell) capsule (Advanced Probiotic) furosemide 20 mg tablet 20 mg PO DAILY #30 tabs 12/24/22 magnesium oxide 400 mg (241.3 mg 400 mg PO BID 30 days #60 tabs 12/24/22 magnesium) tablet polyethylene glycol 3350 17 gram 17 g PO DAILY 30 days #30 ea 12/24/22 oral powder packet (Miralax) Results & Data (ED) Vital Signs Vital Signs - 24 hr 02/08/23 09:37 02/08/23 09:43 02/08/23 09:44 Temperature 37.6 C H Temperature Source Oral Pulse Rate 108 H Pulse Rate [Apical] Pulse Rate from SpO2 Sensor Respiratory Rate 20 Respiratory Effort / Characteristics Non-Labored Respiratory Depth Normal Blood Pressure 85/46 L Blood Pressure Mean 59 Pulse Oximetry 91 89 L 92 Oxygen Delivery Method Room Air Room Air Nasal Cannula Oxygen Flow Rate 2 Sepsis Recent Fever Within 48 Hours Yes Sepsis New/Unexplained Change in Mental Status No Sepsis Action Taken by Nursing Physician Notified 02/08/23 09:45 02/08/23 09:45 02/08/23 10:00 Temperature Temperature Source Pulse Rate Pulse Rate [Apical] 107 H Pulse Rate from SpO2 Sensor Respiratory Rate Respiratory Effort / Characteristics Respiratory Depth Blood Pressure 88/47 L Blood Pressure Mean 60 Pulse Oximetry 94 Oxygen Delivery Method Nasal Cannula Oxygen Flow Rate 2 Sepsis Recent Fever Within 48 Hours Sepsis New/Unexplained Change in Mental Status Sepsis Action Taken by Nursing 02/08/23 10:00 02/08/23 10:22 02/08/23 10:22 Temperature Temperature Source Pulse Rate 95 H 96 H Pulse Rate [Apical] Pulse Rate from SpO2 Sensor 95 H 96 H Respiratory Rate 27 H 21 Respiratory Effort / Characteristics Respiratory Depth Blood Pressure 98/54 L Blood Pressure Mean 68 Pulse Oximetry 94 96 Oxygen Delivery Method Nasal Cannula Nasal Cannula Oxygen Flow Rate 2 2 Sepsis Recent Fever Within 48 Hours Sepsis New/Unexplained Change in Mental Status Sepsis Action Taken by Nursing 02/08/23 10:29 02/08/23 10:30 02/08/23 10:30 Temperature Temperature Source Pulse Rate 92 H 91 H Pulse Rate [Apical] Pulse Rate from SpO2 Sensor 91 H Respiratory Rate 18 Respiratory Effort / Characteristics Respiratory Depth Blood Pressure 91/52 L Blood Pressure Mean 65 Pulse Oximetry 98 Oxygen Delivery Method Nasal Cannula Oxygen Flow Rate 2 Sepsis Recent Fever Within 48 Hours Sepsis New/Unexplained Change in Mental Status Sepsis Action Taken by Nursing 02/08/23 11:00 02/08/23 11:00 02/08/23 11:15 Temperature Temperature Source Pulse Rate 91 H 99 H Pulse Rate [Apical] Pulse Rate from SpO2 Sensor Respiratory Rate 22 23 Respiratory Effort / Characteristics Respiratory Depth Blood Pressure 92/49 L Blood Pressure Mean 63 Pulse Oximetry Oxygen Delivery Method Oxygen Flow Rate 2 Sepsis Recent Fever Within 48 Hours Sepsis New/Unexplained Change in Mental Status Sepsis Action Taken by Nursing 02/08/23 11:30 02/08/23 11:30 02/08/23 11:45 Temperature Temperature Source Pulse Rate 86 93 H Pulse Rate [Apical] Pulse Rate from SpO2 Sensor 86 93 H Respiratory Rate 21 17 Respiratory Effort / Characteristics Respiratory Depth Blood Pressure 97/56 L Blood Pressure Mean 69 Pulse Oximetry 100 100 Oxygen Delivery Method Nebulizer Oxygen Flow Rate Sepsis Recent Fever Within 48 Hours Sepsis New/Unexplained Change in Mental Status Sepsis Action Taken by Nursing 02/08/23 12:00 02/08/23 12:00 02/08/23 12:15 Temperature Temperature Source Pulse Rate 93 H 90 Pulse Rate [Apical] Pulse Rate from SpO2 Sensor 90 Respiratory Rate 26 H 16 Respiratory Effort / Characteristics Respiratory Depth Blood Pressure 92/49 L Blood Pressure Mean 63 Pulse Oximetry 99 Oxygen Delivery Method Nasal Cannula Oxygen Flow Rate 2 Sepsis Recent Fever Within 48 Hours Sepsis New/Unexplained Change in Mental Status Sepsis Action Taken by Nursing 02/08/23 12:30 02/08/23 12:30 Temperature Temperature Source Pulse Rate 91 H Pulse Rate [Apical] Pulse Rate from SpO2 Sensor Respiratory Rate 21 Respiratory Effort / Characteristics Respiratory Depth Blood Pressure 102/56 L Blood Pressure Mean 71 Pulse Oximetry Oxygen Delivery Method Oxygen Flow Rate Sepsis Recent Fever Within 48 Hours Sepsis New/Unexplained Change in Mental Status Sepsis Action Taken by Nursing Laboratory Data 02/08/23 09:48 02/08/23 09:48 Lab Results 02/08/23 02/08/23 02/08/23 Range/Units 09:45 09:48 09:48 WBC 6.58 (4.8-10.8) K/ul RBC 4.05 L (4.70-6.10) M/uL Hgb 13.2 L (14.0-18.0) g/dl Hct 40.2 L (42.0-52.0) % MCV 99.3 (80.0-100.0) fL MCH 32.6 (25.0-34.0) pg MCHC 32.8 (32.0-36.0) g/dL RDW Std Deviation 51.7 H (36.4-46.3) fL RDW Coeff of Drew 14.1 (11.5-14.5) % Plt Count 129 L (130-400) K/uL MPV 11.4 (9.4-12.4) fL Immature Gran % (Auto) 0.3 % Neut % (Auto) 91.6 % Lymph % (Auto) 2.4 % [place] % (Auto) 5.2 % Eos % (Auto) 0.2 % Baso % (Auto) 0.3 % Neut # (Auto) 6.03 (1.40-6.50) K/uL Lymph # (Auto) 0.16 L (1.2-3.4) K/uL [place] # (Auto) 0.34 (0.11-0.59) K/uL Eos # (Auto) 0.01 (0-0.50) K/uL Baso # (Auto) 0.02 (0-0.2) K/uL Immature Gran # (Auto) 0.02 (0.01-0.20) K/uL RBC Morphology Unremarkable PT (9.0-12.0) Seconds INR (0.9-1.1) VBG pH (7.36-7.41) VBG pCO2 (38-50) mmHg VBG pO2 mmHg VBG HCO3 mmol/L VBG O2 Saturation % VBG Base Excess mEq/L Sodium 131 L (136-145) mmol/L Potassium 4.5 (3.5-5.1) mmol/L Chloride 96 L (98-107) mmol/L Carbon Dioxide 27 (21-32) mmol/L Anion Gap 8 (3-11) BUN 37 H (6-23) mg/dl Creatinine 0.97 (0.6-1.4) mg/dl Est Cr Clr Drug Dosing 68.1 ml/min Est GFR ( Amer) 92.6 ml/min Est GFR (Non-Af Amer) 79.9 ml/min BUN/Creatinine Ratio 38.1 H (10-20) Glucose 331 H* (70-99(Fasting)) mg/dl Lactate (0.4-2.0) mmol/L Calcium 9.4 (8.6-10.3) mg/dl Magnesium 1.0 L (1.7-2.4) mg/dl Total Bilirubin 0.3 (0.2-1.0) mg/dl Direct Bilirubin 0.0 (0-0.2) mg/dl AST 19 (13-39) U/L ALT 16 (7-52) U/L Alkaline Phosphatase 100 (34-104) U/L Troponin I High Sens 25.6 H (0-20) pg/ml Total Protein 7.2 (6.0-8.3) gm/dl Albumin 4.0 (3.4-5.0) gm/dl Procalcitonin (0-0.5) ng/ml Urine Color Urine Appearance (Clear) Urine pH (4.5-7.5) Ur Specific [place] (1.000-1.030) Urine Protein (Negative) Urine Glucose (UA) (Negative) Urine Ketones (Negative) Urine Blood (Negative) Urine Nitrite (Negative) Urine Bilirubin (Negative) Urine Urobilinogen (Negative) Ur Leukocyte Esterase (Negative) Urine WBC (Auto) (0-5) /hpf Urine RBC (Auto) (0-4) /hpf U Hyaline Cast (Auto) (0-5) /lpf U Epithel Cells (Auto) (0-5) /lpf Urine Bacteria (Auto) (Negative) Stl C. cayetanensis PCR (NotDetected) Stool Rotavirus A PCR (NotDetected) Stl Adenov F 40/41 PCR (NotDetected) Stool Astrovirus (PCR) (NotDetected) Stool Campylobacter PCR (NotDetected) Stl C. diff Tox B Gene (Neg) Stool Cryptosporidium PCR (NotDetected) Stl E.coli Shiga Tox PCR (NotDetected) Stl Enterotoxigenic E PCR (NotDetected) Stool EPEC (PCR) (NotDetected) Stool EAEC (PCR) (NotDetected) Stl E. histolytica PCR (NotDetected) Stool Giardia Lamblia PCR (NotDetected) Stool Salmonella PCR (NotDetected) Stool Sapovirus (PCR) (NotDetected) Stl P. shigelloides PCR (NotDetected) Stl Shigella/EIEC PCR (NotDetected) St Y.enterocolitica PCR (NotDetected) Stool Vibrio (PCR) (NotDetected) Stl Vibrio cholerae PCR (NotDetected) Stl Norovirus GI/GII PCR (NotDetected) Adenovirus (PCR) Not Detected (NotDetected) B. pertussis DNA (PCR) Not Detected (NotDetected) B.parapertussis DNA PCR Not Detected (NotDetected) C. pneumoniae DNA (PCR) Not Detected (NotDetected) Coronavirus OC43 (PCR) Not Detected (NotDetected) Coronavirus HKU1 (PCR) Not Detected (NotDetected) Coronavirus 229E (PCR) Not Detected (NotDetected) SARS-CoV-2 (PCR) Not Detected (NotDetected) Coronavirus NL63 (PCR) Not Detected (NotDetected) Human Metapneumovir PCR Not Detected (NotDetected) Influenza Type A (PCR) Not Detected (NotDetected) Influenza Type B (PCR) Not Detected (NotDetected) M. pneumoniae (PCR) Not Detected (NotDetected) Parainfluenza 1 (PCR) Not Detected (NotDetected) Parainfluenza 2 (PCR) Not Detected (NotDetected) Parainfluenza 3 (PCR) Not Detected (NotDetected) Parainfluenza 4 (PCR) Not Detected (NotDetected) RSV (PCR) Not Detected (NotDetected) Entero/Rhino (PCR) Not Detected (NotDetected) 02/08/23 02/08/23 02/08/23 Range/Units 09:48 09:48 09:48 WBC (4.8-10.8) K/ul RBC (4.70-6.10) M/uL Hgb (14.0-18.0) g/dl Hct (42.0-52.0) % MCV (80.0-100.0) fL MCH (25.0-34.0) pg MCHC (32.0-36.0) g/dL RDW Std Deviation (36.4-46.3) fL RDW Coeff of Drew (11.5-14.5) % Plt Count (130-400) K/uL MPV (9.4-12.4) fL Immature Gran % (Auto) % Neut % (Auto) % Lymph % (Auto) % [place] % (Auto) % Eos % (Auto) % Baso % (Auto) % Neut # (Auto) (1.40-6.50) K/uL Lymph # (Auto) (1.2-3.4) K/uL [place] # (Auto) (0.11-0.59) K/uL Eos # (Auto) (0-0.50) K/uL Baso # (Auto) (0-0.2) K/uL Immature Gran # (Auto) (0.01-0.20) K/uL RBC Morphology PT 10.9 (9.0-12.0) Seconds INR 1.0 (0.9-1.1) VBG pH (7.36-7.41) VBG pCO2 (38-50) mmHg VBG pO2 mmHg VBG HCO3 mmol/L VBG O2 Saturation % VBG Base Excess mEq/L Sodium (136-145) mmol/L Potassium (3.5-5.1) mmol/L Chloride (98-107) mmol/L Carbon Dioxide (21-32) mmol/L Anion Gap (3-11) BUN (6-23) mg/dl Creatinine (0.6-1.4) mg/dl Est Cr Clr Drug Dosing ml/min Est GFR ( Amer) ml/min Est GFR (Non-Af Amer) ml/min BUN/Creatinine Ratio (10-20) Glucose (70-99(Fasting)) mg/dl Lactate 2.5 H* (0.4-2.0) mmol/L Calcium (8.6-10.3) mg/dl Magnesium (1.7-2.4) mg/dl Total Bilirubin (0.2-1.0) mg/dl Direct Bilirubin (0-0.2) mg/dl AST (13-39) U/L ALT (7-52) U/L Alkaline Phosphatase (34-104) U/L Troponin I High Sens (0-20) pg/ml Total Protein (6.0-8.3) gm/dl Albumin (3.4-5.0) gm/dl Procalcitonin 0.49 (0-0.5) ng/ml Urine Color Urine Appearance (Clear) Urine pH (4.5-7.5) Ur Specific [place] (1.000-1.030) Urine Protein (Negative) Urine Glucose (UA) (Negative) Urine Ketones (Negative) Urine Blood (Negative) Urine Nitrite (Negative) Urine Bilirubin (Negative) Urine Urobilinogen (Negative) Ur Leukocyte Esterase (Negative) Urine WBC (Auto) (0-5) /hpf Urine RBC (Auto) (0-4) /hpf U Hyaline Cast (Auto) (0-5) /lpf U Epithel Cells (Auto) (0-5) /lpf Urine Bacteria (Auto) (Negative) Stl C. cayetanensis PCR (NotDetected) Stool Rotavirus A PCR (NotDetected) Stl Adenov F 40/41 PCR (NotDetected) Stool Astrovirus (PCR) (NotDetected) Stool Campylobacter PCR (NotDetected) Stl C. diff Tox B Gene (Neg) Stool Cryptosporidium PCR (NotDetected) Stl E.coli Shiga Tox PCR (NotDetected) Stl Enterotoxigenic E PCR (NotDetected) Stool EPEC (PCR) (NotDetected) Stool EAEC (PCR) (NotDetected) Stl E. histolytica PCR (NotDetected) Stool Giardia Lamblia PCR (NotDetected) Stool Salmonella PCR (NotDetected) Stool Sapovirus (PCR) (NotDetected) Stl P. shigelloides PCR (NotDetected) Stl Shigella/EIEC PCR (NotDetected) St Y.enterocolitica PCR (NotDetected) Stool Vibrio (PCR) (NotDetected) Stl Vibrio cholerae PCR (NotDetected) Stl Norovirus GI/GII PCR (NotDetected) Adenovirus (PCR) (NotDetected) B. pertussis DNA (PCR) (NotDetected) B.parapertussis DNA PCR (NotDetected) C. pneumoniae DNA (PCR) (NotDetected) Coronavirus OC43 (PCR) (NotDetected) Coronavirus HKU1 (PCR) (NotDetected) Coronavirus 229E (PCR) (NotDetected) SARS-CoV-2 (PCR) (NotDetected) Coronavirus NL63 (PCR) (NotDetected) Human Metapneumovir PCR (NotDetected) Influenza Type A (PCR) (NotDetected) Influenza Type B (PCR) (NotDetected) M. pneumoniae (PCR) (NotDetected) Parainfluenza 1 (PCR) (NotDetected) Parainfluenza 2 (PCR) (NotDetected) Parainfluenza 3 (PCR) (NotDetected) Parainfluenza 4 (PCR) (NotDetected) RSV (PCR) (NotDetected) Entero/Rhino (PCR) (NotDetected) 02/08/23 02/08/23 02/08/23 Range/Units 09:55 09:55 10:03 WBC (4.8-10.8) K/ul RBC (4.70-6.10) M/uL Hgb (14.0-18.0) g/dl Hct (42.0-52.0) % MCV (80.0-100.0) fL MCH (25.0-34.0) pg MCHC (32.0-36.0) g/dL RDW Std Deviation (36.4-46.3) fL RDW Coeff of Drew (11.5-14.5) % Plt Count (130-400) K/uL MPV (9.4-12.4) fL Immature Gran % (Auto) % Neut % (Auto) % Lymph % (Auto) % [place] % (Auto) % Eos % (Auto) % Baso % (Auto) % Neut # (Auto) (1.40-6.50) K/uL Lymph # (Auto) (1.2-3.4) K/uL [place] # (Auto) (0.11-0.59) K/uL Eos # (Auto) (0-0.50) K/uL Baso # (Auto) (0-0.2) K/uL Immature Gran # (Auto) (0.01-0.20) K/uL RBC Morphology PT (9.0-12.0) Seconds INR (0.9-1.1) VBG pH (7.36-7.41) VBG pCO2 (38-50) mmHg VBG pO2 mmHg VBG HCO3 mmol/L VBG O2 Saturation % VBG Base Excess mEq/L Sodium (136-145) mmol/L Potassium (3.5-5.1) mmol/L Chloride (98-107) mmol/L Carbon Dioxide (21-32) mmol/L Anion Gap (3-11) BUN (6-23) mg/dl Creatinine (0.6-1.4) mg/dl Est Cr Clr Drug Dosing ml/min Est GFR ( Amer) ml/min Est GFR (Non-Af Amer) ml/min BUN/Creatinine Ratio (10-20) Glucose (70-99(Fasting)) mg/dl Lactate (0.4-2.0) mmol/L Calcium (8.6-10.3) mg/dl Magnesium (1.7-2.4) mg/dl Total Bilirubin (0.2-1.0) mg/dl Direct Bilirubin (0-0.2) mg/dl AST (13-39) U/L ALT (7-52) U/L Alkaline Phosphatase (34-104) U/L Troponin I High Sens (0-20) pg/ml Total Protein (6.0-8.3) gm/dl Albumin (3.4-5.0) gm/dl Procalcitonin (0-0.5) ng/ml Urine Color Yellow Urine Appearance Cloudy A (Clear) Urine pH 5.5 (4.5-7.5) Ur Specific [place] 1.016 (1.000-1.030) Urine Protein Trace H (Negative) Urine Glucose (UA) Negative (Negative) Urine Ketones Trace H (Negative) Urine Blood Negative (Negative) Urine Nitrite Negative (Negative) Urine Bilirubin Negative (Negative) Urine Urobilinogen Negative (Negative) Ur Leukocyte Esterase 2+ H (Negative) Urine WBC (Auto) >30 H (0-5) /hpf Urine RBC (Auto) 0-4 (0-4) /hpf U Hyaline Cast (Auto) 1-5 (0-5) /lpf U Epithel Cells (Auto) 10-20 H (0-5) /lpf Urine Bacteria (Auto) Negative (Negative) Stl C. cayetanensis PCR Not Detected (NotDetected) Stool Rotavirus A PCR Not Detected (NotDetected) Stl Adenov F 40/41 PCR Not Detected (NotDetected) Stool Astrovirus (PCR) Not Detected (NotDetected) Stool Campylobacter PCR Not Detected (NotDetected) Stl C. diff Tox B Gene Positive Cdiff Gene H (Neg) Stool Cryptosporidium PCR Not Detected (NotDetected) Stl E.coli Shiga Tox PCR Not Detected (NotDetected) Stl Enterotoxigenic E PCR Not Detected (NotDetected) Stool EPEC (PCR) Not Detected (NotDetected) Stool EAEC (PCR) Not Detected (NotDetected) Stl E. histolytica PCR Not Detected (NotDetected) Stool Giardia Lamblia PCR Not Detected (NotDetected) Stool Salmonella PCR Not Detected (NotDetected) Stool Sapovirus (PCR) Not Detected (NotDetected) Stl P. shigelloides PCR Not Detected (NotDetected) Stl Shigella/EIEC PCR Not Detected (NotDetected) St Y.enterocolitica PCR Not Detected (NotDetected) Stool Vibrio (PCR) Not Detected (NotDetected) Stl Vibrio cholerae PCR Not Detected (NotDetected) Stl Norovirus GI/GII PCR DETECTED A* (NotDetected) Adenovirus (PCR) (NotDetected) B. pertussis DNA (PCR) (NotDetected) B.parapertussis DNA PCR (NotDetected) C. pneumoniae DNA (PCR) (NotDetected) Coronavirus OC43 (PCR) (NotDetected) Coronavirus HKU1 (PCR) (NotDetected) Coronavirus 229E (PCR) (NotDetected) SARS-CoV-2 (PCR) (NotDetected) Coronavirus NL63 (PCR) (NotDetected) Human Metapneumovir PCR (NotDetected) Influenza Type A (PCR) (NotDetected) Influenza Type B (PCR) (NotDetected) M. pneumoniae (PCR) (NotDetected) Parainfluenza 1 (PCR) (NotDetected) Parainfluenza 2 (PCR) (NotDetected) Parainfluenza 3 (PCR) (NotDetected) Parainfluenza 4 (PCR) (NotDetected) RSV (PCR) (NotDetected) Entero/Rhino (PCR) (NotDetected) 02/08/23 02/08/23 Range/Units 10:20 12:12 WBC (4.8-10.8) K/ul RBC (4.70-6.10) M/uL Hgb (14.0-18.0) g/dl Hct (42.0-52.0) % MCV (80.0-100.0) fL MCH (25.0-34.0) pg MCHC (32.0-36.0) g/dL RDW Std Deviation (36.4-46.3) fL RDW Coeff of Drew (11.5-14.5) % Plt Count (130-400) K/uL MPV (9.4-12.4) fL Immature Gran % (Auto) % Neut % (Auto) % Lymph % (Auto) % [place] % (Auto) % Eos % (Auto) % Baso % (Auto) % Neut # (Auto) (1.40-6.50) K/uL Lymph # (Auto) (1.2-3.4) K/uL [place] # (Auto) (0.11-0.59) K/uL Eos # (Auto) (0-0.50) K/uL Baso # (Auto) (0-0.2) K/uL Immature Gran # (Auto) (0.01-0.20) K/uL RBC Morphology PT (9.0-12.0) Seconds INR (0.9-1.1) VBG pH 7.30 L (7.36-7.41) VBG pCO2 52 H (38-50) mmHg VBG pO2 33 mmHg VBG HCO3 26 mmol/L VBG O2 Saturation < 60.0 % VBG Base Excess -1.3 mEq/L Sodium (136-145) mmol/L Potassium (3.5-5.1) mmol/L Chloride (98-107) mmol/L Carbon Dioxide (21-32) mmol/L Anion Gap (3-11) BUN (6-23) mg/dl Creatinine (0.6-1.4) mg/dl Est Cr Clr Drug Dosing ml/min Est GFR ( Amer) ml/min Est GFR (Non-Af Amer) ml/min BUN/Creatinine Ratio (10-20) Glucose (70-99(Fasting)) mg/dl Lactate 2.0 (0.4-2.0) mmol/L Calcium (8.6-10.3) mg/dl Magnesium (1.7-2.4) mg/dl Total Bilirubin (0.2-1.0) mg/dl Direct Bilirubin (0-0.2) mg/dl AST (13-39) U/L ALT (7-52) U/L Alkaline Phosphatase (34-104) U/L Troponin I High Sens (0-20) pg/ml Total Protein (6.0-8.3) gm/dl Albumin (3.4-5.0) gm/dl Procalcitonin (0-0.5) ng/ml Urine Color Urine Appearance (Clear) Urine pH (4.5-7.5) Ur Specific [place] (1.000-1.030) Urine Protein (Negative) Urine Glucose (UA) (Negative) Urine Ketones (Negative) Urine Blood (Negative) Urine Nitrite (Negative) Urine Bilirubin (Negative) Urine Urobilinogen (Negative) Ur Leukocyte Esterase (Negative) Urine WBC (Auto) (0-5) /hpf Urine RBC (Auto) (0-4) /hpf U Hyaline Cast (Auto) (0-5) /lpf U Epithel Cells (Auto) (0-5) /lpf Urine Bacteria (Auto) (Negative) Stl C. cayetanensis PCR (NotDetected) Stool Rotavirus A PCR (NotDetected) Stl Adenov F 40/41 PCR (NotDetected) Stool Astrovirus (PCR) (NotDetected) Stool Campylobacter PCR (NotDetected) Stl C. diff Tox B Gene (Neg) Stool Cryptosporidium PCR (NotDetected) Stl E.coli Shiga Tox PCR (NotDetected) Stl Enterotoxigenic E PCR (NotDetected) Stool EPEC (PCR) (NotDetected) Stool EAEC (PCR) (NotDetected) Stl E. histolytica PCR (NotDetected) Stool Giardia Lamblia PCR (NotDetected) Stool Salmonella PCR (NotDetected) Stool Sapovirus (PCR) (NotDetected) Stl P. shigelloides PCR (NotDetected) Stl Shigella/EIEC PCR (NotDetected) St Y.enterocolitica PCR (NotDetected) Stool Vibrio (PCR) (NotDetected) Stl Vibrio cholerae PCR (NotDetected) Stl Norovirus GI/GII PCR (NotDetected) Adenovirus (PCR) (NotDetected) B. pertussis DNA (PCR) (NotDetected) B.parapertussis DNA PCR (NotDetected) C. pneumoniae DNA (PCR) (NotDetected) Coronavirus OC43 (PCR) (NotDetected) Coronavirus HKU1 (PCR) (NotDetected) Coronavirus 229E (PCR) (NotDetected) SARS-CoV-2 (PCR) (NotDetected) Coronavirus NL63 (PCR) (NotDetected) Human Metapneumovir PCR (NotDetected) Influenza Type A (PCR) (NotDetected) Influenza Type B (PCR) (NotDetected) M. pneumoniae (PCR) (NotDetected) Parainfluenza 1 (PCR) (NotDetected) Parainfluenza 2 (PCR) (NotDetected) Parainfluenza 3 (PCR) (NotDetected) Parainfluenza 4 (PCR) (NotDetected) RSV (PCR) (NotDetected) Entero/Rhino (PCR) (NotDetected) Administered Medications Magnesium Sulfate/Dextrose (Magnesium Sulfate / D5w) 1 gm in 100 mls @ 50 mls/hr IV Q2H SEN Stop: 02/08/23 17:44 Last Admin: 02/08/23 12:25 Dose: 50 mls/hr Documented By: ANTONIETA Sodium Chloride (Nss 1000ml) 1,000 mls @ 70 mls/hr IV .[id number] SEN Stop: 03/10/23 12:14 Last Admin: 02/08/23 12:24 Dose: 70 mls/hr Documented By: ANTONIETA Discontinued Medications Albuterol (Albut/Ipratrop 3mg/0.5mg Neb 3 Ml Vial) 3 ml NEB NOW STA; Protocol Stop: 02/08/23 10:57 Last Admin: 02/08/23 11:24 Dose: 3 ml Documented By: ANTONIETA Sodium Chloride (Nss 1000ml) 1,000 mls @ 999 mls/hr IV .Q1H1M SEN Stop: 02/08/23 10:45 Last Infusion: 02/08/23 10:47 Dose: 0 mls/hr Documented By: Admin: 02/08/23 09:46 Dose: 999 mls/hr Documented By: RADHA Sodium Chloride (Nss 1000ml) 2,000 mls @ 999 mls/hr IV .Q2H1M ONE Stop: 02/08/23 12:14 Last Admin: 02/08/23 10:19 Dose: Not Given Documented By: ANTONIETA Sodium Chloride (Nss 1000ml) 1,000 mls @ 999 mls/hr IV .Q1H1M ONE Stop: 02/08/23 11:18 Last Infusion: 02/08/23 11:21 Dose: 0 mls/hr Documented By: Admin: 02/08/23 10:20 Dose: 999 mls/hr Documented By: ANTONIETA Piperacillin Sod/Tazobactam Sod (Zosyn) 4.5 gm in 120 mls @ 240 mls/hr IV NOW ONE Stop: 02/08/23 11:33 Last Infusion: 02/08/23 12:13 Dose: 0 mls/hr Documented By: Admin: 02/08/23 11:43 Dose: 240 mls/hr Documented By: ANTONIETA Methylprednisolone (Methylprednisolone 125 Mg/2 Ml Vial) 125 mg IV NOW STA Stop: 02/08/23 10:57 Last Admin: 02/08/23 11:03 Dose: 125 mg Documented By: ANTONIETA Imaging Data Radiologist's Impression: Chest X-Ray 02/08/23 09:43 SINGLE VIEW CHEST CLINICAL HISTORY: Sepsis. FINDINGS: 2 AP, portable, upright chest radiographs are compared to study dated 12/24/2022 and correlated with chest CT dated 12/21/2022. The heart is enlarged. The pulmonary vasculature is noncongested. Chronic interstitial thickening is similar to previous. Scarring/atelectasis is seen at the lung bases. No airspace consolidation or large pleural effusion is identified. No pneumothorax is seen. The skeletal structures are osteopenic. There are chronic/healed bilateral rib fractures. Degenerative change and scoliosis is noted in the spine. An IVC filter is seen below the right hemidiaphragm. IMPRESSION: Cardiomegaly with no acute cardiopulmonary abnormality identified. ACT 112: Negative or not required by law. Electronically signed by: Beka Irby M.D. 02/08/2023 10:28 AM Discharge Plan Visit Data Chief Complaint: Illness Stated Complaint: HYPOXIA, FEVER ED Provider: Aditya Andujar Discharge Problem: Hypoxia Forms Stand Alone Forms: [facility] Prescriptions Prescriptions: No Action oxcarbazepine 150 mg tablet 225 mg PO BID trazodone 50 mg Tablet 50 mg PO HS Rx Instructions: take at 1999. loperamide [Imodium A-D] 2 mg Tablet 2 mg PO UD PRN (Reason: Diarrhea) Rx Instructions: Chewable simvastatin [Zocor] 40 mg Tablet 40 mg PO HS metoclopramide HCl [Reglan] 5 mg Tablet 5 mg PO ACHS Rx Instructions: take 4X daily with meals and at bedtime. Friday Through Friday albuterol sulfate [ProAir HFA] 90 mcg/actuation Hfa Aerosol Inhaler 2 puff INHALATION Q4H PRN (Reason: Shortness Of Breath) cholecalciferol (vitamin D3) [Vitamin D3] 1,000 unit Capsule 1,000 unit PO QAM Januvia 100 mg tablet 100 mg PO QAM omeprazole 20 mg Tablet,Delayed Release (Dr/Ec) 20 mg PO QAM pentoxifylline 400 mg tablet extended release 400 mg PO TID Rx Instructions: Daily at 0800, 1600, & 2000 loratadine [Claritin] 10 mg Tablet 10 mg PO QAM Incruse Ellipta 62.5 mcg/actuation blister with device 1 inh INHALATION QAM multivitamin [Daily-Shaka] Tablet 1 tab PO QAM Qty: 0 clonazepam 0.5 mg Tablet 0.5 mg PO BID alum-mag hydroxide-simeth 200-200-20 mg/5 mL Suspension 30 ml PO QPM escitalopram oxalate 20 mg tablet 20 mg PO QAM metformin 500 mg tablet extended release 24 hr 1,000 mg PO BIDM glimepiride 1 mg tablet 1 mg PO DAILY gabapentin 300 mg capsule 300 mg PO TID metoprolol tartrate 25 mg Tablet 12.5 mg PO BID Qty: 60 0RF risperidone 2 mg tablet 2 mg PO TID acetaminophen [Tylenol] 325 mg tablet 650 mg PO QID PRN (Reason: pain) Qty: 0 0RF furosemide 20 mg Tablet 20 mg PO DAILY Qty: 30 2RF magnesium oxide 400 mg (241.3 mg magnesium) Tablet 400 mg PO BID 30 Days Qty: 60 2RF Advanced Probiotic 625 mg (10 billion cell) Capsule 2 cap PO DAILY 30 Days Qty: 60 1RF polyethylene glycol 3350 [Miralax] 17 gram Powder In Packet 17 g PO DAILY 30 Days Qty: 30 1RF Referrals Referrals: Andrew Montague MD [Primary Care Provider] -
[2023-02-08] MEDS ORDERED: SODIUM CHLORIDE 0.9% 1000ML 2,000 ML IV ONE (10:14)
[2023-02-08 10:18] LABS: Appearance Urine Cloudy (Clear); Bacteria Urine Automated Negative (Negative); Bilirubin Urine Negative (Negative); Blood Urine Negative (Negative); Color Urine Yellow; Glucose Urine UA Negative (Negative); Ketones Urine Trace (Negative); Leukocyte Esterase Urine 2+ (Negative); Nitrite Urine Negative (Negative); Protein Urine Trace (Negative); RBC Urine Automated 0-4 /hpf (0-4); Specific Gravity Urine 1.016 (1.000-1.030); Urobilinogen Urine Negative (Negative); WBC Urine Automated >30 /hpf (0-5); pH Urine 5.5 (4.5-7.5)
[2023-02-08] MEDS ORDERED: SODIUM CHLORIDE 0.9% 1000ML 1,000 ML IV ONE (10:18)
[2023-02-08 10:27] LABS: Base Excess VBG -1.3 mEq/L; HCO3 VBG 26 mmol/L; Oxygen Saturation VBG < 60.0 %; PCO2 VBG 52 mmHg (38-50); PO2 VBG 33 mmHg
--- NOTE | 2023-02-08 10:29 | XRay Report ---
SINGLE VIEW CHEST CLINICAL HISTORY: Sepsis. FINDINGS: 2 AP, portable, upright chest radiographs are compared to study dated 12/24/2022 and correla estephania with chest CT dated 12/21/2022. The heart is enlarged. The pulmonary vasculature is noncongested. Chronic interstitial thickening is similar to previous. Scarring/atelectasis is seen at the lung base s. No airspace consolidation or large pleural effusion is identified. No pneumothorax is seen. The sk eletal structures are osteopenic. There are chronic/healed bilateral rib fractures. Degenerative orozco ge and scoliosis is noted in the spine. An IVC filter is seen below the right hemidiaphragm. IMPRESSION: Cardiomegaly with no acute cardiopulmonary abnormality identified. ACT 112: Negative or not required by law. Electronically signed by: eBka Irby M.D. 02/08/2023 10:28 AM
[2023-02-08 10:32] LABS: Prothrombin Time 10.9 Seconds (9.0-12.0)
[2023-02-08 10:38] LABS: Basophils # (auto) 0.02 K/uL (0-0.2); Basophils % (auto) 0.3 %; Eosinophils # (auto) 0.01 K/uL (0-0.50); Eosinophils % (auto) 0.2 %; Hematocrit (blood only) 40.2 % (42.0-52.0); Hemoglobin 13.2 g/dl (14.0-18.0); Immature Granulocytes # (auto) 0.02 K/uL (0.01-0.20); Immature Granulocytes % (auto) 0.3 %; Lymphocytes # (auto) 0.16 K/uL (1.2-3.4); Lymphocytes % (auto) 2.4 %; Mean Corpuscular Hemoglobin 32.6 pg (25.0-34.0); Mean Corpuscular Hgb Conc 32.8 g/dL (32.0-36.0); Mean Corpuscular Volume 99.3 fL (80.0-100.0); Mean Platelet Volume 11.4 fL (9.4-12.4); Monocytes # (auto) 0.34 K/uL (0.11-0.59); Monocytes % (auto) 5.2 %; Neutrophils # (auto) 6.03 K/uL (1.40-6.50); Neutrophils % (auto) 91.6 %; Platelet Count 129 K/uL (130-400); RBC Morphology Unremarkable; RDW Coefficient of Variation 14.1 % (11.5-14.5); RDW Standard Deviation 51.7 fL (36.4-46.3); Red Blood Count 4.05 M/uL (4.70-6.10); White Blood Count 6.58 K/ul (4.8-10.8)
[2023-02-08 10:40] LABS: BUN Creatinine Ratio 38.1 (10-20); Bilirubin,Total 0.3 mg/dl (0.2-1.0); Calcium 9.4 mg/dl (8.6-10.3); Creatinine Clr Calc Pharmacy 68.1 ml/min; Est GFR (African American) 92.6 ml/min; Est GFR (Non-African American) 79.9 ml/min; Potassium 4.5 mmol/L (3.5-5.1); Total Protein 7.2 gm/dl (6.0-8.3); Troponin I High Sensitivity 25.6 pg/ml (0-20)
[2023-02-08] MEDS ORDERED: methylPREDNISolone 125 MG/2 ML VIAL IV STA (10:56)
[2023-02-08] MEDS ORDERED: ALBUT/IPRATROP 3MG/0.5MG NEB 3 ML VIAL NEB STA (10:56)
[2023-02-08 10:58] LABS: Adenovirus PCR Not Detected (NotDetected); Bordetella parapertussis PCR Not Detected (NotDetected); Bordetella pertussis PCR Not Detected (NotDetected); Chlamydia pneumoniae PCR Not Detected (NotDetected); Coronavirus 229E PCR Not Detected (NotDetected); Coronavirus CoV-2 (COVID19)PCR Not Detected (NotDetected); Coronavirus HKU1 PCR Not Detected (NotDetected); Coronavirus NL63 PCR Not Detected (NotDetected); Coronavirus OC43PCR Not Detected (NotDetected); Human Metapneumovirus PCR Not Detected (NotDetected); Influenza A PCR Not Detected (NotDetected); Influenza B PCR Not Detected (NotDetected); Mycoplasma pneumoniae PCR Not Detected (NotDetected); Parainfluenza Virus 1 PCR Not Detected (NotDetected); Parainfluenza Virus 2 PCR Not Detected (NotDetected); Parainfluenza Virus 3 PCR Not Detected (NotDetected); Parainfluenza Virus 4 PCR Not Detected (NotDetected); Respiratory Syncytial VirusPCR Not Detected (NotDetected); Rhinovirus/Enterovirus PCR Not Detected (NotDetected)
[2023-02-08] MEDS ORDERED: PIPERACILLIN/TAZOBACTAM 4.5 GM/120 ML BAG IV ONE (11:04)
--- NOTE | 2023-02-08 11:37 | History & Physical Report ---
Date of Service February 08, 2023 Assessment & Plan (1) Gastroenteritis: (2) Abnormal urinalysis: (3) Sepsis: (4) Hypoxia: (5) Diabetes mellitus, type 2: (6) Cerebral palsy: (7) Elevated troponin: (8) Aortic stenosis: (9) Chronic obstructive pulmonary disease: (10) Intellectual disability: (11) Pressure ulcer of coccygeal region, stage 3: Plan This is a 66yo male with a PMH of intellectual disability due to cerebral palsy, DM2, COPD, PVD, TRINIDAD, GERD, chronic stasis dermatitis, hearing loss, osteoporosis, and valvular heart disease (mild MR/TR/Aortic Stenosis) who presents to the ED today from [facility] with fever and cough. N/V, diarrhea 2/2 norovirus Developed symptoms overnight Stool cx gene positive but toxin negative CT abd/pelvis with liquid stool throughout colon, nonspecific proctitis Supportive care with fluids, antiemetics Hypomagnesemia Initial Mg 1 2/2 GI losses. Replaced, afternoon labs ordered Complicated UTI UA abnormal, follow urine culture. Given Zosyn in ED, will continue (cephalosporin allergy). Continue probiotics DM II A1c 7.6 in Oct 2022, repeat a1c tomorrow Hold home agents SSI while in-patient BSG AC HS Hypoxia 2/2 COPD, recent PNA Recent admissions for PNA, on minced and moist diet due to aspiration concerns. No worsening cough per [employer] CXR with cardiomegaly with no acute cardiopulmonary abnormality identified Has been weaned off of O2 previously during admission. Continue albuterol inh, Incruse Ellipta, consider bipap if patient becomes lethargic Stage 3 coccyx wound -> recently healed Has been following with wound care, Turn and position q2, keep area dry Intellectual disability Resides at [facility] Wheel chair bound at baseline Continue oxcarbazepine, trazodone, risperidone Hx of PAF In NSR, not on any rate/rhythm agents Not on anticoagulation HLD Continue statin PVD/PAD Chronic stasis dermatitis No signs of cellulitis. Continue pentoxifylline DVT ppx:SQ Lovenox Code status: FULL PCP: Clari Dispo: Admitted to PCU Patient seen in collaboration with Dr. King. Please see addendum. I spent a total of 80 minutes coordinating, documenting, and providing care for this patient excluding time spent in the performance of separately billed services. History of Present Illness Chief Complaint: SOB Primary Care Provider: Andrew Montague MD This is a 66yo male with a PMH of intellectual disability due to cerebral palsy, DM2, COPD, PVD, TRINIDAD, GERD, chronic stasis dermatitis, hearing loss, osteoporosis, and valvular heart disease (mild MR/TR/Aortic Stenosis) who presents to the ED today from [employer] [facility] with fever and cough. Was reportedly hypoxic this AM and placed on NC O2 by EMS. History was obtained by chart review and patient's caregiver at bedside as pt was unable to contribute to the history due to intellectual disability. Developed nausea, vomiting and diarrhea overnight and was felt to be little bit more lethargic than usual so brought in for further evaluation. Also notably had cough, although when discussed with care provider at bedside, this is residual from last month's pneumonia admission and not worsening. Has been admitted twice previously in 2022 for hypoxia in the setting of pneumonia. Caregiver denies any complaints of difficulty breathing from patient, although difficult to obtain reliable his tory from him. Appears comfortable at bedside but having multiple episodes of diarrhea. Taking medications as prescribed. At discharge from previous admission, sent out on increased magnesium dose to 400 mg twice daily, Lasix 20 daily. Is still taking a probiotic. Unable to obtain remainder of ROS due to patient's intellectual disability. Allergies Allergy/AdvReac Type Severity Reaction Status Date / Time lactose Allergy Intermediate GI SYMPTOMS Verified 01/13/23 11:09 aspirin Allergy Unknown UNKNOWN Verified 01/13/23 11:09 REACTION cephalexin Allergy Unknown UNKNOWN Verified 01/13/23 11:09 REACTION Cephalosporins Allergy Unknown UNKNOWN Verified 01/13/23 11:09 REACTION Corticosteroids Allergy Unknown UNKNOWN Verified 01/13/23 11:09 (Glucocorticoids) REACTION methylprednisolone Allergy Unknown UNKNOWN Verified 01/13/23 11:09 REACTION shellfish derived Allergy Unknown UNKNOWN Verified 01/13/23 11:09 REACTION Home Medications Medication Instructions Recorded Confirmed Type albuterol sulfate 90 mcg/actuation 2 puff inhalation Q4H PRN 12/23/18 02/08/23 History aerosol inhaler (ProAir HFA) Shortness Of Breath cholecalciferol (vitamin D3) 25 1,000 unit PO QAM 12/23/18 02/08/23 History mcg (1,000 unit) capsule (Vitamin D3) loperamide 2 mg tablet (Imodium 2 mg PO UD PRN Diarrhea 12/23/18 02/08/23 History A-D) metoclopramide HCl 5 mg tablet 5 mg PO ACHS 12/23/18 02/08/23 History (Reglan) omeprazole 20 mg tablet,delayed 20 mg PO QAM 12/23/18 02/08/23 History release simvastatin 40 mg tablet (Zocor) 40 mg PO HS 12/23/18 02/08/23 History sitagliptin phosphate 100 mg 100 mg PO QAM 12/23/18 02/08/23 History tablet (Januvia) trazodone 50 mg tablet 50 mg PO HS MOOD 12/23/18 02/08/23 History loratadine 10 mg tablet (Claritin) 10 mg PO QAM 04/03/20 02/08/23 History pentoxifylline 400 mg 400 mg PO TID 04/03/20 02/08/23 History tablet,extended release umeclidinium 62.5 mcg/actuation 1 inh inhalation QAM 03/02/21 02/08/23 History blister powder for inhalation (Incruse Ellipta) risperidone 2 mg tablet 2 mg PO TID 03/11/21 02/08/23 History aluminum-mag hydroxide-simethicone 30 ml PO QPM 11/23/21 02/08/23 History 200 mg-200 mg-20 mg/5 mL oral susp clonazepam 0.5 mg tablet 0.5 mg PO BID anxiety 11/23/21 02/08/23 History multivitamin (Daily-Shaka tablet) 1 tab PO QAM ##0 11/23/21 02/08/23 History escitalopram oxalate 20 mg tablet 20 mg PO QAM 01/03/22 02/08/23 History metformin 500 mg tablet,extended 1,000 mg PO BIDM 01/03/22 02/08/23 History release 24 hr oxcarbazepine 150 mg tablet 225 mg PO BID 04/08/22 02/08/23 History acetaminophen 325 mg tablet 650 mg PO QID PRN pain #0 tabs 05/03/22 02/08/23 Rx (Tylenol) gabapentin 300 mg capsule 300 mg PO TID 11/24/22 02/08/23 History glimepiride 1 mg tablet 1 mg PO DAILY 11/24/22 02/08/23 History metoprolol tartrate 25 mg tablet 12.5 mg PO BID #60 tabs 11/30/22 02/08/23 Rx L.acidop,casei,lactis,rham-B.lact,lakia 2 cap PO DAILY 30 days #60 caps 12/24/22 02/08/23 Rx 625 mg (10 billion cell) capsule (Advanced Probiotic) furosemide 20 mg tablet 20 mg PO DAILY #30 tabs 12/24/22 02/08/23 Rx magnesium oxide 400 mg (241.3 mg 400 mg PO BID 30 days #60 tabs 12/24/22 02/08/23 Rx magnesium) tablet polyethylene glycol 3350 17 gram 17 g PO DAILY 30 days #30 ea 12/24/22 02/08/23 Rx oral powder packet (Miralax) Past Med/Surg History Medical History Anxiety Aortic stenosis Mild per 09/2021 ECHO Asthma CAP (community acquired pneumonia) Cerebral palsy Chronic obstructive pulmonary disease Well controlled > hasnt used res inh for 2 yrs COPD (chronic obstructive pulmonary disease) Depression Diabetes mellitus, type 2 Diabetes mellitus, type II DJD (degenerative joint disease) Elevated troponin Femoral condyle fracture GERD (gastroesophageal reflux disease) GERD (gastroesophageal reflux disease) History of COVID-19 Tested positive 09/21/21 [facility] ([facility] Sinus congestion only. no hospitalization. No current problems. Hospital-acquired pneumonia Hyperglycemia Hyperlipidemia Hypotension Intellectual disability Lives at [facility] facility Neck pain Neuropathy TRINIDAD (obstructive sleep apnea) TRINIDAD (obstructive sleep apnea) Per records Osteoporosis Peroneal palsy Pica Pneumonia Presence of IVC filter Placed in 1997 per records PVD (peripheral vascular disease) Scoliosis Severe sepsis Tibia fracture TMJ (temporomandibular joint disorder) Venous insufficiency Surgical History History of cholecystectomy History of colonoscopy History of tooth extraction S/P cataract surgery Left and Right Family History Father Coronary heart disease Social History Smoking Status: Former smoker packs per day: 30; Second Hand Exposure: No; Do You Dip or Chew Tobacco: No; Tobacco Cessation Education Requested by Patient: No Hx Alcohol Use: No Hx Substance Use: No Preferred Language: [place] Communication Ability: Effective Communication Ability Comment: [facility] [employer] Communication Tools: Other Visual Impairment: No Limitations Hearing Ability: Use of Hearing Aid Meter Installer And Remover Required: No Beliefs That Will Affect Care: None marital status: Single marital status details: [employer] Current Living Situation: Personal Care Facility Current Living Situation Comment: [facility] current occupational status: disabled How many Children do You have: 0 Other Information That Helps Us Care for You: No Feels Safe at Home: Yes Safety Concerns: Feels Safe At This Time caffeine: No Assistive Devices: Hospital Bed, Mechanical Lift and Wheelchair Review of Systems Review of Systems: Unobtainable due to cognitive status Physical Exam Physical Exam: General Appearance: WD/WN, vitals as above, NAD, sitting up in bed, pleasant Head: normocephalic, atraumatic Eyes: normal inspection, PERRL, conjunctivae normal, anicteric sclerae ENT: external ear and nose normal, oropharynx normal Neck: normal visual inspection, trachea midline, no thyromegaly Respiratory: normal respiratory effort, decreased breath sounds but no wheeze or rhonchi Cardiovascular: tachycardic rate, regular rhythm, systolic murmur, normal peripheral pulses, trace BLE edema. Vessels: no JVD Chest: normal inspection of chest Abdomen/GI: hyperactive bowel sounds, soft, nontender, no hepatosplenomegaly Extremities/Musculoskeletal: no cyanosis or clubbing, extremities motor strength 5/5 Neurologic: PERRL, CN's II-XI intact bilaterally and moves all extremities Psychiatric: Alert and verbal although difficult to understand, at baseline with intellectual disability per care provider at baseline Skin: no rashes, normal color, warm/dry Results & Data Results & Data Vital Signs (Past 12 Hours) Vital Signs Temp Pulse Pulse Resp BP Pulse Ox O2 Del Method 02/08/23 11:30 86 21 100 Nebulizer 02/08/23 11:30 97/56 L 02/08/23 11:15 99 H 23 02/08/23 11:00 91 H 22 02/08/23 11:00 92/49 L 02/08/23 10:30 91 H 18 98 Nasal Cannula 02/08/23 10:30 91/52 L 02/08/23 10:29 92 H 02/08/23 10:22 96 H 21 96 Nasal Cannula 02/08/23 10:22 98/54 L 02/08/23 10:00 95 H 27 H 94 Nasal Cannula 02/08/23 10:00 88/47 L 02/08/23 09:45 107 H 02/08/23 09:45 94 Nasal Cannula 02/08/23 09:44 92 Nasal Cannula 02/08/23 09:43 89 L Room Air 02/08/23 09:37 37.6 C H 108 H 20 85/46 L 91 Room Air O2 Flow Rate 02/08/23 11:30 02/08/23 11:30 02/08/23 11:15 2 02/08/23 11:00 02/08/23 11:00 02/08/23 10:30 2 02/08/23 10:30 02/08/23 10:29 02/08/23 10:22 2 02/08/23 10:22 02/08/23 10:00 2 02/08/23 10:00 02/08/23 09:45 02/08/23 09:45 2 02/08/23 09:44 2 02/08/23 09:43 02/08/23 09:37 Laboratory Results Short CBC 02/08/23 Range/Units 09:48 WBC 6.58 (4.8-10.8) K/ul Hgb 13.2 L (14.0-18.0) g/dl Hct 40.2 L (42.0-52.0) % Plt Count 129 L (130-400) K/uL BMP 02/08/23 09:48 Sodium 131 L Potassium 4.5 Chloride 96 L Carbon Dioxide 27 BUN 37 H Creatinine 0.97 Glucose 331 H* Calcium 9.4 Liver Function 02/08/23 Range/Units 09:48 Total Bilirubin 0.3 (0.2-1.0) mg/dl Direct Bilirubin 0.0 (0-0.2) mg/dl AST 19 (13-39) U/L ALT 16 (7-52) U/L Alkaline Phosphatase 100 (34-104) U/L Albumin 4.0 (3.4-5.0) gm/dl Urine 02/08/23 Range/Units 10:03 Urine Color Yellow Urine Appearance Cloudy A (Clear) Urine pH 5.5 (4.5-7.5) Ur Specific [place] 1.016 (1.000-1.030) Urine Protein Trace H (Negative) Urine Glucose (UA) Negative (Negative) Diagnostic Findings Chest X-Ray 02/08/23 09:43 SINGLE VIEW CHEST CLINICAL HISTORY: Sepsis. FINDINGS: 2 AP, portable, upright chest radiographs are compared to study dated 12/24/2022 and correlated with chest CT dated 12/21/2022. The heart is enlarged. The pulmonary vasculature is noncongested. Chronic interstitial thickening is similar to previous. Scarring/atelectasis is seen at the lung bases. No airspace consolidation or large pleural effusion is identified. No pneumothorax is seen. The skeletal structures are osteopenic. There are chronic/healed bilateral rib fractures. Degenerative change and scoliosis is noted in the spine. An IVC filter is seen below the right hemidiaphragm. IMPRESSION: Cardiomegaly with no acute cardiopulmonary abnormality identified. ACT 112: Negative or not required by law. Electronically signed by: Beka Irby M.D. 02/08/2023 10:28 AM ECG Additional Comments: Sinus tachycardia at 110, nonspecific changes in anterior and septal leads, repeating EKG Code Status & VTE Plan VTE Prophylaxis Plan VTE Prophylaxis will be ordered: Yes Supervising Physician Co-Signing Physician Notes Patient was seen and examined independently. Chart reviewed. Case discussed with NELLY (3) Sepsis Acute respiratory failure type: with hypoxia Sepsis acute organ dysfunction status: with acute organ dysfunction Sepsis type: sepsis due to unspecified organism Severe sepsis acute organ dysfunction type: acute respiratory failure Severe sepsis shock status: unspecified Qualified Code(s): A41.9 - Sepsis, unspecified organism; R65.20 - Severe sepsis without septic shock; J96.01 - Acute respiratory failure with hypoxia
[2023-02-08 11:41] LABS: Cdiff Toxin B Gene (2yr or >) Positive Cdiff Gene (Neg)
[2023-02-08 11:48] LABS: Adenovirus F 40/41 PCR Not Detected (NotDetected); Astrovirus PCR Not Detected (NotDetected); Campylobacter PCR Not Detected (NotDetected); Cryptosporidium PCR Not Detected (NotDetected); Cyclospora cayetanensis PCR Not Detected (NotDetected); Entamoeba histolytica PCR Not Detected (NotDetected); Enteroaggregative E.coli(EAEC) Not Detected (NotDetected); Enteropathogenic E.coli (EPEC) Not Detected (NotDetected); Enterotoxigenic E.coli (ETEC) Not Detected (NotDetected); Giardia lamblia PCR Not Detected (NotDetected); Plesiomonas shigelloides PCR Not Detected (NotDetected); Rotavirus A PCR Not Detected (NotDetected); Salmonella PCR Not Detected (NotDetected); Sapovirus PCR Not Detected (NotDetected); Shiga-like Toxin E.coli (STEC) Not Detected (NotDetected); Shigella/Enteroinvasive E.coli Not Detected (NotDetected); Vibrio cholerae PCR Not Detected (NotDetected); Vibrio species PCR Not Detected (NotDetected); Yersinia enterocolitica PCR Not Detected (NotDetected)
--- NOTE | 2023-02-08 12:05 | Electrocardiogram Report ---
Test Reason : Blood Pressure : / mmHG Vent. Rate : 110 BPM Atrial Rate : 110 BPM P-R Int : 174 ms QRS Dur : 108 ms QT Int : 342 ms P-R-T Axes : 042 -28 003 degrees QTc Int : 462 ms Sinus tachycardia Incomplete right bundle branch block Abnormal ECG When compared with ECG of 19-DEC-2022 01:51, Sinus rhythm has replaced Atrial fibrillation QRS axis Shifted left Serial changes of evolving Anteroseptal infarct Present Confirmed by Sreedhar Dowling ([id number]) on 02/08/2023 12:04:54 PM Referred By: ED Confirmed By:Evan Dowling
[2023-02-08 12:18] LABS: Norovirus GI/GII PCR DETECTED (NotDetected)
[2023-02-08] MEDS: SODIUM CHLORIDE 0.9% 1000ML 1,000 ML IV SCH (12:24)
[2023-02-08] MEDS: MAGNESIUM SULFATE / D5W 1 GM/100 ML BAG IV SCH ×3 (12:25→16:49)
[2023-02-08 12:46] LABS: Cdiff Antigen Positive; Cdiff Toxin A+B Negative Cdiff Toxin (Negative)
[2023-02-08] MEDS ORDERED: GLUCAGON FOR INJ 1 MG VIAL SQ PRN (12:54)
[2023-02-08] MEDS ORDERED: GLUCOSE 40% GEL 15 GM TUBE PO PRN (12:54)
[2023-02-08] MEDS ORDERED: CARBOHYDRATES FOR HYPOGLYCEMIA PO PRN (12:54)
[2023-02-08] MEDS ORDERED: GLUCOSE 10 TAB/TUBE PO PRN (12:54)
[2023-02-08] MEDS ORDERED: ACETAMINOPHEN 500 MG TAB PO STA (13:30)
[2023-02-08] MEDS ORDERED: POLYETHYLENE (MIRALAX) 17 GM PACK PO PRN (13:31)
[2023-02-08] MEDS ORDERED: ONDANSETRON INJ 2 MG/ML 2 ML VIAL IV PRN (13:31)
[2023-02-08] MEDS ORDERED: ACETAMINOPHEN 325 MG TAB PO PRN ×2 (13:31)
[2023-02-08] MEDS ORDERED: ALBUTEROL HFA 8 GM INHALER INH PRN (13:31)
[2023-02-08] MEDS ORDERED: LOPERAMIDE HCL 2 MG CAP PO PRN (13:51)
[2023-02-08] MEDS ORDERED: OPTIRAY 350 100ml IV ONE (13:59)
--- NOTE | 2023-02-08 14:16 | CT Scan Report ---
CT SCAN OF THE ABDOMEN AND PELVIS WITH IV CONTRAST CLINICAL HISTORY: Nausea and vomiting. Diarrhea. COMPARISON STUDY: Abdominal CT dated 12/21/2022. TECHNIQUE: Following the IV administration of 88 cc of Optiray 350, CT scan of the abdomen and pelvi s is performed from the lung bases to the proximal femora. Images are reviewed in the axial, sagittal , and coronal planes. IV contrast was administered without complication. A dose lowering technique wa s utilized adhering to the principles of ALARA. The examination is compromised by motion artifact. CT DOSE: 294.45 mGy.cm FINDINGS: Lung bases: The heart is enlarged and without pericardial effusion. The aortic valve leaflets and antony ral annulus are densely calcified. Airspace consolidation is seen at both lung bases. No pleural effu zhanna is identified. A small hiatal hernia is noted. Liver: The contrast-enhanced liver is enlarged, measuring 21.7 cm in length. The liver is otherwise n ormal in contour and attenuation. There is no intrahepatic biliary ductal dilatation. The hepatic vei ns and portal veins are patent. Periportal edema is noted. Gallbladder: Surgically absent noting clips in the gallbladder fossa. Spleen: Normal in size and attenuation. Pancreas: Unremarkable. Adrenal glands: Unremarkable. Kidneys: The contrast enhanced kidneys demonstrate mild cortical atrophy and/or without hydronephrosi s. The kidneys enhance symmetrically. Abdominal vasculature: The abdominal aorta is normal in course and caliber noting mild to moderate at herosclerotic calcification. A suprarenal IVC filter is in place. Bowel: The rectal wall is thickened and hyperemic with mild surrounding infiltration. Liquid stool is seen throughout the colon. No bowel obstruction is seen. The appendix is not visualized. There is a small duodenal diverticulum. Peritoneum: There is no intraperitoneal free air or abdominal ascites. Lymphadenopathy: None. Pelvic viscera: The bladder wall is circumferentially thickened and appears hyperemic. The prostate g land is diminutive and heterogeneous. Skeletal structures: The skeletal structures are osteopenic. No lytic or blastic lesions are seen. Th ere is chronic posterior neck deformity of both pubic rings and the sacrum. There are chronic tamika zhanna deformities of T11, T12, and L1. Kmzs-ah-jrpgxnzt lumbosacral spondylosis is observed. There are numerous chronic/healed bilateral rib fractures. IMPRESSION: 1. There is evidence of a nonspecific proctitis. Correlate clinically. 2. Liquid stool is seen throughout the colon. Correlate for evidence of a diarrheal illness. 3. The bladder wall is thickened and hyperemic. Correlate with clinical findings and urinalysis. 4. Mild patchy airspace consolidation is seen at both lung bases. Correlate clinically for evidence o f an infectious/inflammatory pneumonitis. 5. Mild cardiomegaly. 6. Hepatomegaly. 7. Additional findings as above. ACT 112: Negative or not required by law. Electronically signed by: Beka Irby M.D. 02/08/2023 2:14 PM
[2023-02-08] MEDS ORDERED: LANTUS PER UNIT CHARGE SQ STA (14:35)
[2023-02-08] MEDS: ENOXAPARIN INJ 40 MG/0.4 ML SYR SQ SCH (14:47)
[2023-02-08] MEDS: risperiDONE 2 MG TABLET PO SCH ×2 (14:47→20:57)
[2023-02-08] MEDS: GABAPENTIN 300 MG CAP PO SCH ×2 (14:48→20:58)
[2023-02-08] MEDS: INSULIN ASPART PER UNIT CHARGE SC SCH ×3 (14:53→21:02)
[2023-02-08] MEDS ORDERED: PHARMACY GLYCEMIC MGMT CONSULT PRN (16:26)
[2023-02-08] MEDS ORDERED: INSULIN ASPART PER UNIT CHARGE SC SCH (16:30)
[2023-02-08] MEDS: PENTOXIFYLLINE 400MG EXT REL TAB PO SCH ×2 (17:28→20:54)
[2023-02-08 17:44] LABS: Calcium 8.1 mg/dl (8.6-10.3); Creatinine Clr Calc Pharmacy 84.5 ml/min; Est GFR (African American) 107.5 ml/min; Est GFR (Non-African American) 92.8 ml/min; Magnesium 1.7 mg/dl (1.7-2.4); Potassium 4.1 mmol/L (3.5-5.1)
[2023-02-08 17:53] LABS: Troponin I High Sensitivity 41.8 pg/ml (0-20)
[2023-02-08] MEDS: PIPERACILLIN/TAZOBACTAM 3.375 GM in DEXTROSE 5% 100 ML IV SCH (18:32)
[2023-02-08] MEDS ORDERED: SODIUM CHLORIDE 0.9% 500 ML IV SCH ×2 (20:00→22:45)
[2023-02-08] MEDS ORDERED: INSULIN HUMAN REGULAR PER UNIT 5 UNITS in SYRINGE 4.95 ML IV STA (20:11)
[2023-02-08] MEDS: traZODone HCL 50 MG TAB PO SCH (20:55)
[2023-02-08] MEDS: OXcarbazepine 150 MG TABLET PO SCH (20:55)
[2023-02-08] MEDS: SIMVASTATIN 40 MG TAB PO SCH (20:55)
[2023-02-08] MEDS: METOPROLOL TARTRATE 25 MG TAB PO SCH (20:56)
[2023-02-08] MEDS: MAGNESIUM OXIDE 400 MG TAB PO SCH (20:57)
[2023-02-08] MEDS: clonazePAM 0.5 MG TAB PO SCH (20:57)
[2023-02-08] MEDS ORDERED: LANTUS PER UNIT CHARGE SC SCH (21:00)
[2023-02-08] MEDS: ALUMINUM/MAGNESIUM/SIMETH (MAALOX MAX) 30 ML UDC PO SCH (21:01)
[2023-02-09] MEDS: INSULIN ASPART PER UNIT CHARGE SC SCH ×6 (00:16→20:30)
[2023-02-09] MEDS: SODIUM CHLORIDE 0.9% 1000ML 1,000 ML IV SCH (01:40)
[2023-02-09] MEDS: PIPERACILLIN/TAZOBACTAM 3.375 GM in DEXTROSE 5% 100 ML IV SCH ×3 (01:40→18:25)
[2023-02-09] MEDS: DEXTROSE 50% 50 ML SYRINGE IV PRN (04:14)
[2023-02-09 06:47] LABS: BUN Creatinine Ratio 42.9 (10-20); Calcium 7.5 mg/dl (8.6-10.3); Creatinine Clr Calc Pharmacy 116.8 ml/min; Est GFR (African American) 123.2 ml/min; Est GFR (Non-African American) 106.3 ml/min; Potassium 3.8 mmol/L (3.5-5.1)
[2023-02-09 06:50] LABS: Hematocrit (blood only) 29.5 % (42.0-52.0); Hemoglobin 9.8 g/dl (14.0-18.0); Mean Corpuscular Hemoglobin 32.8 pg (25.0-34.0); Mean Corpuscular Hgb Conc 33.2 g/dL (32.0-36.0); Mean Corpuscular Volume 98.7 fL (80.0-100.0); Mean Platelet Volume 11.1 fL (9.4-12.4); Platelet Count 91 K/uL (130-400); Platelet Estimate Decreased (Normal); RDW Coefficient of Variation 14.5 % (11.5-14.5); RDW Standard Deviation 52.3 fL (36.4-46.3); Red Blood Count 2.99 M/uL (4.70-6.10); White Blood Count 4.87 K/ul (4.8-10.8)
--- NOTE | 2023-02-09 07:17 | Electrocardiogram Report ---
Test Reason : Blood Pressure : / mmHG Vent. Rate : 062 BPM Atrial Rate : 062 BPM P-R Int : 280 ms QRS Dur : 080 ms QT Int : 428 ms P-R-T Axes : 057 002 -20 degrees QTc Int : 434 ms Sinus rhythm with 1st degree A-V block Otherwise normal ECG When compared with ECG of 08-FEB-2023 09:38, MS interval has increased Vent. rate has decreased BY 48 BPM Questionable change in QRS duration Criteria for Anteroseptal infarct are no longer Present Minimal criteria for Inferior infarct are no longer Present Confirmed by Sreedhar Dowling ([id number]) on 02/09/2023 7:17:16 AM Referred By: REFERRED SELF Confirmed By:Evan Dowling
[2023-02-09] MEDS: MULTIVITAMIN TAB PO SCH (08:24)
[2023-02-09] MEDS: MAGNESIUM OXIDE 400 MG TAB PO SCH ×2 (08:24→19:56)
[2023-02-09] MEDS: OXcarbazepine 150 MG TABLET PO SCH ×2 (08:24→19:56)
[2023-02-09] MEDS: CHOLECALCIFEROL 1,000 UNITS 25 MCG TAB PO SCH (08:24)
[2023-02-09] MEDS: LORATADINE 10 MG TAB PO SCH (08:25)
[2023-02-09] MEDS: PANTOprazole 40 MG TAB PO SCH (08:25)
[2023-02-09] MEDS: GABAPENTIN 300 MG CAP PO SCH ×3 (08:25→19:55)
[2023-02-09] MEDS: ADVANCED PROBIOTIC 1250 MG CAPSULE PO SCH (08:25)
[2023-02-09] MEDS: ENOXAPARIN INJ 40 MG/0.4 ML SYR SQ SCH (08:25)
[2023-02-09] MEDS: METOPROLOL TARTRATE 25 MG TAB PO SCH ×2 (08:25→19:55)
[2023-02-09] MEDS: risperiDONE 2 MG TABLET PO SCH ×3 (08:25→19:55)
[2023-02-09] MEDS: ESCITALOPRAM OXALATE 20 MG TAB PO SCH (08:25)
[2023-02-09] MEDS: PENTOXIFYLLINE 400MG EXT REL TAB PO SCH ×3 (08:25→19:56)
[2023-02-09] MEDS: clonazePAM 0.5 MG TAB PO SCH ×2 (08:40→19:55)
[2023-02-09] MEDS ORDERED: UMECLIDINIUM BROMIDE 62.5MCG/BLISTER 7 PUFFS/INHALER INH SCH (09:00)
--- NOTE | 2023-02-09 11:10 | Hospitalist Progress Note ---
Date of Service February 09, 2023 Assessment & Plan (1) Gastroenteritis: (2) Abnormal urinalysis: (3) Sepsis: (4) Hypoxia: (5) Diabetes mellitus, type 2: (6) Cerebral palsy: (7) Elevated troponin: (8) Aortic stenosis: (9) Chronic obstructive pulmonary disease: (10) Intellectual disability: (11) Pressure ulcer of coccygeal region, stage 3: Plan This is a 66yo male with a PMH of intellectual disability due to cerebral palsy, DM2, COPD, PVD, TRINIDAD, GERD, chronic stasis dermatitis, hearing loss, osteoporosis, and valvular heart disease (mild MR/TR/Aortic Stenosis) who presents to the ED today from [facility] with fever and cough. N/V, diarrhea 2/2 norovirus Presented from [facility] with fever and cough. C. difficile gene positive but toxin negative GI PCR panel positive for norovirus CT abd/pelvis with liquid stool throughout colon, nonspecific proctitis Patient tolerating food; continue on current diet. Monitor for diarrhea. Complicated UTI Urine analysis suggestive of infection Urine culture shows probable Enterococcus Continue on Zosyn for now; will follow final culture and sensitivity. Acute hypoxic respiratory failure History of frequent pneumonia in the past. CT abdomen pelvis also suggestive of consolidation. Aspiration precautions Airway clearance therapy with DuoNebs and hypertonic saline. Hypomagnesemia Repleted Repeat labs reviewed; improvement noted. DM II A1c 7.6 in Oct 2022, Hold home agents SSI while in-patient BSG AC HS Stage 3 coccyx wound -> recently healed Has been following with wound care, Turn and position q2, keep area dry Intellectual disability Resides at [facility] Wheel chair bound at baseline Continue oxcarbazepine, trazodone, risperidone Hx of SVT Continue on metoprolol Telemetry monitoring HLD Continue statin PVD/PAD Chronic stasis dermatitis No signs of cellulitis. Continue pentoxifylline DVT ppx:SQ Lovenox Code status: FULL PCP: Clari Dispo: Admitted to PCU Time spent evaluating patient, direct bedside care, chart review, placing orders, interpretation of diagnostic studies, discussion with consultants, patient, and family members, as well as other required patient management activities is 50 minutes. Please note the above document was generated using voice recognition software. It may contain grammatical, syntax or spelling errors. Any formal questions or concerns about the content, text or information contained within the body of this dictation should be directly addressed to the provider for clarification Admission and Anticipated Discharge Date Admission Date: February 08, 2023 Subjective Patient seen and examined at bedside. He is sitting up on the bed; comfortable. He ate all of his breakfast. Did not appear to be in significant discomfort. Review of Systems Review of Systems: Unobtainable due to mental health condition Physical Exam Physical Exam: Constitutional: Alert, oriented to self; not in any distress. Respiratory: Decreased breath sound at bases. Cardiovascular: RRR,1/6 mark, no edema but bilateral chronic venous stasis changes vessels: no JVD or carotid bruit Chest: normal inspection of chest Abdomen: normal bowel sounds, soft, nontender, no hepatosplenomegaly Musculoskeletal: no cyanosis or clubbing, unable to assess MSK due to pt unable to follow direction Skin: no rashes, warm and moderate normal turgor Neurologic: PERRL, EOMI, accommodation nl, no face palsy, no dysarthria CN's II-XI intact bilaterally and moves all extremities Psychiatric: A+O to self and place only, euthymic affect Lymphatic: no cervical or axillary lymphadenopathy : deferred Results & Data Results & Data Vital Signs (Past 12 Hours) Vital Signs Temp Pulse Pulse Resp BP Pulse Ox O2 Del Method 02/09/23 07:44 Nasal Cannula 02/09/23 07:26 36.7 C 61 17 96/52 L 100 Nasal Cannula 02/09/23 02:31 36.8 C 59 L 18 99/53 L 100 Nasal Cannula 02/08/23 23:35 59 L O2 Flow Rate 02/09/23 07:44 2 02/09/23 07:26 2 02/09/23 02:31 2 02/08/23 23:35 Laboratory Results Laboratory Results WBC 4.87 K/ul (4.8-10.8) 02/09/23 05:19 RBC 2.99 M/uL (4.70-6.10) L 02/09/23 05:19 Hgb 9.8 g/dl (14.0-18.0) L D 02/09/23 05:19 Hct 29.5 % (42.0-52.0) L 02/09/23 05:19 MCV 98.7 fL (80.0-100.0) 02/09/23 05:19 MCH 32.8 pg (25.0-34.0) 02/09/23 05:19 MCHC 33.2 g/dL (32.0-36.0) 02/09/23 05:19 RDW Std Deviation 52.3 fL (36.4-46.3) H 02/09/23 05:19 RDW Coeff of Drew 14.5 % (11.5-14.5) 02/09/23 05:19 Plt Count 91 K/uL (130-400) L 02/09/23 05:19 MPV 11.1 fL (9.4-12.4) 02/09/23 05:19 Immature Gran % (Auto) 0.3 % 02/08/23 09:48 Neut % (Auto) 91.6 % 02/08/23 09:48 Lymph % (Auto) 2.4 % 02/08/23 09:48 [place] % (Auto) 5.2 % 02/08/23 09:48 Eos % (Auto) 0.2 % 02/08/23 09:48 Baso % (Auto) 0.3 % 02/08/23 09:48 Neut # (Auto) 6.03 K/uL (1.40-6.50) 02/08/23 09:48 Lymph # (Auto) 0.16 K/uL (1.2-3.4) L 02/08/23 09:48 [place] # (Auto) 0.34 K/uL (0.11-0.59) 02/08/23 09:48 Eos # (Auto) 0.01 K/uL (0-0.50) 02/08/23 09:48 Baso # (Auto) 0.02 K/uL (0-0.2) 02/08/23 09:48 Immature Gran # (Auto) 0.02 K/uL (0.01-0.20) 02/08/23 09:48 Platelet Estimate Decreased (Normal) L 02/09/23 05:19 RBC Morphology Unremarkable 02/08/23 09:48 PT 10.9 Seconds (9.0-12.0) 02/08/23 09:48 INR 1.0 (0.9-1.1) 02/08/23 09:48 VBG pH 7.30 (7.36-7.41) L 02/08/23 10:20 VBG pCO2 52 mmHg (38-50) H 02/08/23 10:20 VBG pO2 33 mmHg 02/08/23 10:20 VBG HCO3 26 mmol/L 02/08/23 10:20 VBG O2 Saturation < 60.0 % 02/08/23 10:20 VBG Base Excess -1.3 mEq/L 02/08/23 10:20 Sodium 136 mmol/L (136-145) 02/09/23 05:19 Potassium 3.8 mmol/L (3.5-5.1) 02/09/23 05:19 Chloride 106 mmol/L (98-107) 02/09/23 05:19 Carbon Dioxide 25 mmol/L (21-32) 02/09/23 05:19 Anion Gap 5 (3-11) 02/09/23 05:19 BUN 24 mg/dl (6-23) H 02/09/23 05:19 Creatinine 0.56 mg/dl (0.6-1.4) L 02/09/23 05:19 Est Cr Clr Drug Dosing 116.8 ml/min 02/09/23 05:19 Est GFR ( Amer) 123.2 ml/min 02/09/23 05:19 Est GFR (Non-Af Amer) 106.3 ml/min 02/09/23 05:19 BUN/Creatinine Ratio 42.9 (10-20) H 02/09/23 05:19 Glucose 70 mg/dl (70-99(Fasting)) 02/09/23 05:19 POC Glucose 96 mg/dl (70-99) 02/09/23 07:13 Lactate 2.0 mmol/L (0.4-2.0) 02/08/23 12:12 Calcium 7.5 mg/dl (8.6-10.3) L 02/09/23 05:19 Magnesium 1.7 mg/dl (1.7-2.4) 02/08/23 16:59 Total Bilirubin 0.3 mg/dl (0.2-1.0) 02/08/23 09:48 Direct Bilirubin 0.0 mg/dl (0-0.2) 02/08/23 09:48 AST 19 U/L (13-39) 02/08/23 09:48 ALT 16 U/L (7-52) 02/08/23 09:48 Alkaline Phosphatase 100 U/L (34-104) 02/08/23 09:48 Troponin I High Sens 41.8 pg/ml (0-20) H D 02/08/23 16:59 Total Protein 7.2 gm/dl (6.0-8.3) 02/08/23 09:48 Albumin 4.0 gm/dl (3.4-5.0) 02/08/23 09:48 Procalcitonin 0.49 ng/ml (0-0.5) 02/08/23 09:48 Urine Color Yellow 02/08/23 10:03 Urine Appearance Cloudy (Clear) A 02/08/23 10:03 Urine pH 5.5 (4.5-7.5) 02/08/23 10:03 Ur Specific [place] 1.016 (1.000-1.030) 02/08/23 10:03 Urine Protein Trace (Negative) H 02/08/23 10:03 Urine Glucose (UA) Negative (Negative) 02/08/23 10:03 Urine Ketones Trace (Negative) H 02/08/23 10:03 Urine Blood Negative (Negative) 02/08/23 10:03 Urine Nitrite Negative (Negative) 02/08/23 10:03 Urine Bilirubin Negative (Negative) 02/08/23 10:03 Urine Urobilinogen Negative (Negative) 02/08/23 10:03 Ur Leukocyte Esterase 2+ (Negative) H 02/08/23 10:03 Urine WBC (Auto) >30 /hpf (0-5) H 02/08/23 10:03 Urine RBC (Auto) 0-4 /hpf (0-4) 02/08/23 10:03 U Hyaline Cast (Auto) 1-5 /lpf (0-5) 02/08/23 10:03 U Epithel Cells (Auto) 10-20 /lpf (0-5) H 02/08/23 10:03 Urine Bacteria (Auto) Negative (Negative) 02/08/23 10:03 Nasal Screen MRSA (PCR) Negative (Negative) 02/08/23 11:48 Stl C. cayetanensis PCR Not Detected (NotDetected) 02/08/23 09:55 Stool Rotavirus A PCR Not Detected (NotDetected) 02/08/23 09:55 Stl Adenov F 40/41 PCR Not Detected (NotDetected) 02/08/23 09:55 Stool Astrovirus (PCR) Not Detected (NotDetected) 02/08/23 09:55 Stool Campylobacter PCR Not Detected (NotDetected) 02/08/23 09:55 Stl C. diff Tox B Gene Positive Cdiff Gene (Neg) H 02/08/23 09:55 Stl C.difficile Tox A&B Negative Cdiff Toxin (Negative) 02/08/23 09:55 Stool Cryptosporidium PCR Not Detected (NotDetected) 02/08/23 09:55 Stl E.coli Shiga Tox PCR Not Detected (NotDetected) 02/08/23 09:55 Stl Enterotoxigenic E PCR Not Detected (NotDetected) 02/08/23 09:55 Stool EPEC (PCR) Not Detected (NotDetected) 02/08/23 09:55 Stool EAEC (PCR) Not Detected (NotDetected) 02/08/23 09:55 Stl E. histolytica PCR Not Detected (NotDetected) 02/08/23 09:55 Stool Giardia Lamblia PCR Not Detected (NotDetected) 02/08/23 09:55 Stool Salmonella PCR Not Detected (NotDetected) 02/08/23 09:55 Stool Sapovirus (PCR) Not Detected (NotDetected) 02/08/23 09:55 Stl P. shigelloides PCR Not Detected (NotDetected) 02/08/23 09:55 Stl Shigella/EIEC PCR Not Detected (NotDetected) 02/08/23 09:55 St Y.enterocolitica PCR Not Detected (NotDetected) 02/08/23 09:55 Stool Vibrio (PCR) Not Detected (NotDetected) 02/08/23 09:55 Stl Vibrio cholerae PCR Not Detected (NotDetected) 02/08/23 09:55 Stl Norovirus GI/GII PCR DETECTED (NotDetected) A* 02/08/23 09:55 Adenovirus (PCR) Not Detected (NotDetected) 02/08/23 09:45 B. pertussis DNA (PCR) Not Detected (NotDetected) 02/08/23 09:45 B.parapertussis DNA PCR Not Detected (NotDetected) 02/08/23 09:45 C. pneumoniae DNA (PCR) Not Detected (NotDetected) 02/08/23 09:45 Coronavirus OC43 (PCR) Not Detected (NotDetected) 02/08/23 09:45 Coronavirus HKU1 (PCR) Not Detected (NotDetected) 02/08/23 09:45 Coronavirus 229E (PCR) Not Detected (NotDetected) 02/08/23 09:45 SARS-CoV-2 (PCR) Not Detected (NotDetected) 02/08/23 09:45 Coronavirus NL63 (PCR) Not Detected (NotDetected) 02/08/23 09:45 Human Metapneumovir PCR Not Detected (NotDetected) 02/08/23 09:45 Influenza Type A (PCR) Not Detected (NotDetected) 02/08/23 09:45 Influenza Type B (PCR) Not Detected (NotDetected) 02/08/23 09:45 M. pneumoniae (PCR) Not Detected (NotDetected) 02/08/23 09:45 Parainfluenza 1 (PCR) Not Detected (NotDetected) 02/08/23 09:45 Parainfluenza 2 (PCR) Not Detected (NotDetected) 02/08/23 09:45 Parainfluenza 3 (PCR) Not Detected (NotDetected) 02/08/23 09:45 Parainfluenza 4 (PCR) Not Detected (NotDetected) 02/08/23 09:45 RSV (PCR) Not Detected (NotDetected) 02/08/23 09:45 Entero/Rhino (PCR) Not Detected (NotDetected) 02/08/23 09:45 Impressions Chest X-Ray 02/08/23 09:43 SINGLE VIEW CHEST CLINICAL HISTORY: Sepsis. FINDINGS: 2 AP, portable, upright chest radiographs are compared to study dated 12/24/2022 and correlated with chest CT dated 12/21/2022. The heart is enlarged. The pulmonary vasculature is noncongested. Chronic interstitial thickening is similar to previous. Scarring/atelectasis is seen at the lung bases. No airspace consolidation or large pleural effusion is identified. No pneumothorax is seen. The skeletal structures are osteopenic. There are chronic/healed bilateral rib fractures. Degenerative change and scoliosis is noted in the spine. An IVC filter is seen below the right hemidiaphragm. IMPRESSION: Cardiomegaly with no acute cardiopulmonary abnormality identified. ACT 112: Negative or not required by law. Electronically signed by: Beka Irby M.D. 02/08/2023 10:28 AM Abdomen/Pelvis CT 02/08/23 13:21 CT SCAN OF THE ABDOMEN AND PELVIS WITH IV CONTRAST CLINICAL HISTORY: Nausea and vomiting. Diarrhea. COMPARISON STUDY: Abdominal CT dated 12/21/2022. TECHNIQUE: Following the IV administration of 88 cc of Optiray 350, CT scan of the abdomen and pelvis is performed from the lung bases to the proximal femora. Images are reviewed in the axial, sagittal, and coronal planes. IV contrast was administered without complication. A dose lowering technique was utilized adhe ring to the principles of ALARA. The examination is compromised by motion artifact. CT DOSE: 294.45 mGy.cm FINDINGS: Lung bases: The heart is enlarged and without pericardial effusion. The aortic valve leaflets and mitral annulus are densely calcified. Airspace consolidation is seen at both lung bases. No pleural effusion is identified. A small hiatal hernia is noted. Liver: The contrast-enhanced liver is enlarged, measuring 21.7 cm in length. The liver is otherwise normal in contour and attenuation. There is no intrahepatic biliary ductal dilatation. The hepatic veins and portal veins are patent. Periportal edema is noted. Gallbladder: Surgically absent noting clips in the gallbladder fossa. Spleen: Normal in size and attenuation. Pancreas: Unremarkable. Adrenal glands: Unremarkable. Kidneys: The contrast enhanced kidneys demonstrate mild cortical atrophy and/or without hydronephrosis. The kidneys enhance symmetrically. Abdominal vasculature: The abdominal aorta is normal in course and caliber noting mild to moderate atherosclerotic calcification. A suprarenal IVC filter is in place. Bowel: The rectal wall is thickened and hyperemic with mild surrounding infi ltration. Liquid stool is seen throughout the colon. No bowel obstruction is seen. The appendix is not visualized. There is a small duodenal diverticulum. Peritoneum: There is no intraperitoneal free air or abdominal ascites. Lymphadenopathy: None. Pelvic viscera: The bladder wall is circumferentially thickened and appears hyperemic. The prostate gland is diminutive and heterogeneous. Skeletal structures: The skeletal structures are osteopenic. No lytic or blastic lesions are seen. There is chronic posterior neck deformity of both pubic rings and the sacrum. There are chronic compression deformities of T11, T12, and L1. [id number] lumbosacral spondylosis is observed. There are numerous chronic/healed bilateral rib fractures. IMPRESSION: 1. There is evidence of a nonspecific proctitis. Correlate clinically. 2. Liquid stool is seen throughout the colon. Correlate for evidence of a diarrheal illness. 3. The bladder wall is thickened and hyperemic. Correlate with clinical findings and urinalysis. 4. Mild patchy airspace consolidation is seen at both lung bases. Correlate clinically for evidence of an infectious/inflammatory pneumonitis. 5. Mild cardiomegaly. 6. Hepatomegaly. 7. Additional findings as above. ACT 112: Negative or not required by law. Electronically signed by: Beka Irby M.D. 02/08/2023 2:14 PM (3) Sepsis Acute respiratory failure type: with hypoxia Sepsis acute organ dysfunction status: with acute organ dysfunction Sepsis type: sepsis due to unspecified organism Severe sepsis acute organ dysfunction type: acute respiratory failure Severe sepsis shock status: unspecified Qualified Code(s): A41.9 - Sepsis, unspecified organism; R65.20 - Severe sepsis without septic shock; J96.01 - Acute respiratory failure with hypoxia
[2023-02-09] MEDS: ALBUT/IPRATROP 3MG/0.5MG NEB 3 ML VIAL NEB SCH ×2 (11:57→19:25)
--- NOTE | 2023-02-09 15:09 | Pharmacy Report ---
Pharmacy Glycemic Short Note 2 - Date of Service February 09, 2023 - Glycemic Short BSG Results (Last 24 hours): 02/08/23 02/08/23 02/08/23 16:14 16:59 20:01 Glucose 411 H* POC Glucose 413 H* 354 H* 02/08/23 02/09/23 02/09/23 20:02 00:10 04:10 Glucose POC Glucose 348 H* 168 H 57 L* 02/09/23 02/09/23 02/09/23 04:11 04:31 05:19 Glucose 70 POC Glucose 60 L* 111 H 02/09/23 02/09/23 02/09/23 05:28 07:13 11:12 Glucose POC Glucose 81 96 87 OUTPATIENT ANTIDIABETIC REGIMEN: * Metformin 1000 mg PO BID + Januvia 100 mg PO qAM * A1c = 7.6% ASSESSMENT: * 66yo male with a PMH of intellectual disability due to cerebral palsy, DM2, COPD, PVD, TRINIDAD, GERD, chronic stasis dermatitis, hearing loss, osteoporosis, and valvular heart disease (mild MR/TR/Aortic Stenosis) who presented with fever and cough. Recent gastroenteritis, however physician notes indicate patient is tolerating an oral diet. * Severe hyperglycemia on admission. Patient received 31 units of Lantus + 21 units of Novolog yesterday. * Today BSGs are below goal (70, 87 mg/dL). Review of past admission data shows that patient typically requires Lantus 16 units per day. I will start with a reduced Lantus scale this evening - may consider starting 16 units daily tomorrow if BSGs have recovered. PLAN FOR INPATIENT GLYCEMIC CONTROL: * Hold outpatient oral diabetes medications * Basal insulin * Lantus 0-10 units SQ HS (0 for BSG < 120, 5 for BSG 120-180, 10 for BSG > 180) * Bolus insulin * NovoLog per scale ACHS or Q6hrs while NPO * Goal Range: Low 120 mg/dL - High 150 mg/dL Breakfast: * Correction Factor: 35 mg/dL/unit * Nutritional / Prandial insulin per carb ratio of 1 unit per 9 grams CHO consumed Lunch/dinner/HS: * Correction Factor: 40 mg/dL/unit * Nutritional / Prandial insulin per carb ratio of 1 unit per 16 grams CHO consumed
[2023-02-09] MEDS ORDERED: INSULIN ASPART PER UNIT CHARGE SC SCH (16:30)
[2023-02-09] MEDS: SODIUM CHLOR 7% 4 ML NEB NEB SCH (19:25)
[2023-02-09] MEDS: traZODone HCL 50 MG TAB PO SCH (19:56)
[2023-02-09] MEDS: ALUMINUM/MAGNESIUM/SIMETH (MAALOX MAX) 30 ML UDC PO SCH (19:56)
[2023-02-09] MEDS: SIMVASTATIN 40 MG TAB PO SCH (19:56)
[2023-02-09] MEDS ORDERED: LANTUS PER UNIT CHARGE SC SCH (21:00)
[2023-02-10] MEDS ORDERED: DEXTROSE 50% 50 ML SYRINGE IV STA (00:13)
[2023-02-10] MEDS: PIPERACILLIN/TAZOBACTAM 3.375 GM in DEXTROSE 5% 100 ML IV SCH ×2 (02:09→08:50)
[2023-02-10 06:42] LABS: Albumin Globulin Ratio 1.3 (0.9-2); Albumin Level 3.1 gm/dl (3.4-5.0); BUN Creatinine Ratio 29.8 (10-20); Bilirubin,Total 0.2 mg/dl (0.2-1.0); Calcium 7.9 mg/dl (8.6-10.3); Est GFR (African American) 122.3 ml/min; Est GFR (Non-African American) 105.5 ml/min; Globulin 2.4 gm/dl (2.5-4.0); Potassium 4.9 mmol/L (3.5-5.1); Total Protein 5.5 gm/dl (6.0-8.3)
[2023-02-10] MEDS: SODIUM CHLOR 7% 4 ML NEB NEB SCH ×2 (07:00→20:49)
[2023-02-10] MEDS: ALBUT/IPRATROP 3MG/0.5MG NEB 3 ML VIAL NEB SCH ×2 (07:00→20:49)
[2023-02-10 07:10] LABS: Hematocrit (blood only) 29.8 % (42.0-52.0); Hemoglobin 9.5 g/dl (14.0-18.0); Mean Corpuscular Hemoglobin 32.8 pg (25.0-34.0); Mean Corpuscular Hgb Conc 31.9 g/dL (32.0-36.0); Mean Corpuscular Volume 102.8 fL (80.0-100.0); Mean Platelet Volume 10.9 fL (9.4-12.4); Platelet Count 99 K/uL (130-400); RDW Coefficient of Variation 14.6 % (11.5-14.5); RDW Standard Deviation 54.8 fL (36.4-46.3); White Blood Count 3.31 K/ul (4.8-10.8)
[2023-02-10 07:21] LABS: Basophils # (auto) 0.02 K/uL (0-0.2); Basophils % (auto) 0.6 %; Eosinophils # (auto) 0.05 K/uL (0-0.50); Eosinophils % (auto) 1.5 %; Immature Granulocytes # (auto) 0.01 K/uL (0.01-0.20); Immature Granulocytes % (auto) 0.3 %; Lymphocytes % (auto) 12.1 %; Monocytes # (auto) 0.21 K/uL (0.11-0.59); Monocytes % (auto) 6.3 %; Neutrophils # (auto) 2.62 K/uL (1.40-6.50); Neutrophils % (auto) 79.2 %
[2023-02-10] MEDS: INSULIN ASPART PER UNIT CHARGE SC SCH ×4 (08:40→21:13)
[2023-02-10] MEDS: PENTOXIFYLLINE 400MG EXT REL TAB PO SCH ×3 (08:40→19:59)
[2023-02-10] MEDS: CHOLECALCIFEROL 1,000 UNITS 25 MCG TAB PO SCH (08:41)
[2023-02-10] MEDS: ENOXAPARIN INJ 40 MG/0.4 ML SYR SQ SCH (08:41)
[2023-02-10] MEDS: ESCITALOPRAM OXALATE 20 MG TAB PO SCH (08:42)
[2023-02-10] MEDS: GABAPENTIN 300 MG CAP PO SCH ×3 (08:42→20:01)
[2023-02-10] MEDS: ADVANCED PROBIOTIC 1250 MG CAPSULE PO SCH (08:43)
[2023-02-10] MEDS: MULTIVITAMIN TAB PO SCH (08:44)
[2023-02-10] MEDS: OXcarbazepine 150 MG TABLET PO SCH ×2 (08:44→20:04)
[2023-02-10] MEDS: METOPROLOL TARTRATE 25 MG TAB PO SCH ×2 (08:44→20:02)
[2023-02-10] MEDS: LORATADINE 10 MG TAB PO SCH (08:44)
[2023-02-10] MEDS: MAGNESIUM OXIDE 400 MG TAB PO SCH ×2 (08:44→20:02)
[2023-02-10] MEDS: risperiDONE 2 MG TABLET PO SCH ×3 (08:45→20:07)
[2023-02-10] MEDS: PANTOprazole 40 MG TAB PO SCH (08:45)
[2023-02-10] MEDS: clonazePAM 0.5 MG TAB PO SCH ×2 (08:50→20:11)
--- NOTE | 2023-02-10 11:30 | Hospitalist Progress Note ---
Date of Service February 10, 2023 Assessment & Plan (1) Gastroenteritis: (2) Abnormal urinalysis: (3) Sepsis: (4) Hypoxia: (5) Diabetes mellitus, type 2: (6) Cerebral palsy: (7) Elevated troponin: (8) Aortic stenosis: (9) Chronic obstructive pulmonary disease: (10) Intellectual disability: (11) Pressure ulcer of coccygeal region, stage 3: Plan This is a 66yo male with a PMH of intellectual disability due to cerebral palsy, DM2, COPD, PVD, TRINIDAD, GERD, chronic stasis dermatitis, hearing loss, osteoporosis, and valvular heart disease (mild MR/TR/Aortic Stenosis) who presents to the ED today from [facility] with fever and cough. N/V, diarrhea 2/2 norovirus Presented from [facility] with fever and cough. C. difficile gene positive but toxin negative GI PCR panel positive for norovirus CT abd/pelvis personally reviewed; liquid stool throughout colon, nonspecific proctitis Patient tolerating food; continue on current diet. Monitor for diarrhea. Complicated UTI Urine analysis suggestive of infection Urine culture grew E faecalis; sensitive to penicillin We will change the antibiotics to amoxicillin 1 g 3 times daily for 3 more days. Discussed with pharmacy. Acute hypoxic respiratory failure History of frequent pneumonia in the past. CT abdomen pelvis also suggestive of consolidation. Aspiration precautions Airway clearance therapy with DuoNebs and hypertonic saline. Will complete antibiotic course with 3 more days of amoxicillin. Hypomagnesemia Repleted Repeat labs reviewed; improvement noted. DM II A1c 7.6 in Oct 2022, Hold home agents SSI while in-patient BSG AC HS Stage 3 coccyx wound -> recently healed Has been following with wound care, Turn and position q2, keep area dry Intellectual disability Resides at [facility] Wheel chair bound at baseline Continue oxcarbazepine, trazodone, risperidone Hx of SVT Continue on metoprolol Telemetry monitoring HLD Continue statin PVD/PAD Chronic stasis dermatitis No signs of cellulitis. Continue pentoxifylline DVT ppx:SQ Lovenox Code status: FULL PCP: Clari Dispo: Admitted to PCU. PT OT ordered. Plan to to eventually discharge back to [facility]; awaiting PT OT recommendation. Time spent evaluating patient, direct bedside care, chart review, placing orders, interpretation of diagnostic studies, discussion with consultants, patient, and family members, as well as other required patient management activities is 50 minutes. Please note the above document was generated using voice recognition software. It may contain grammatical, syntax or spelling errors. Any formal questions or concerns about the content, text or information contained within the body of this dictation should be directly addressed to the provider for clarification Admission and Anticipated Discharge Date Admission Date: February 08, 2023 Subjective Patient seen and examined at bedside. He is comfortably sitting up on the bed; not in any distress. Saturating well on room air. Review of Systems Review of Systems: Unobtainable due to mental health condition Physical Exam Physical Exam: Constitutional: Alert, oriented to self; not in any distress. Respiratory: Decreased breath sound at bases. Cardiovascular: RRR,1/6 mark, no edema but bilateral chronic venous stasis changes vessels: no JVD or carotid bruit Chest: normal inspection of chest Abdomen: normal bowel sounds, soft, nontender, no hepatosplenomegaly Musculoskeletal: no cyanosis or clubbing, unable to assess MSK due to pt unable to follow direction Skin: no rashes, warm and moderate normal turgor Neurologic: PERRL, EOMI, accommodation nl, no face palsy, no dysarthria CN's II-XI intact bilaterally and moves all extremities Psychiatric: A+O to self and place only, euthymic affect Lymphatic: no cervical or axillary lymphadenopathy : deferred Results & Data Results & Data Vital Signs (Past 12 Hours) Vital Signs Temp Pulse Pulse Resp BP Pulse Ox O2 Del Method 02/10/23 11:09 36.7 C 57 L 18 118/59 L 96 Room Air 02/10/23 11:09 Room Air 02/10/23 11:05 69 02/10/23 07:01 58 L 16 99 Nasal Cannula 02/10/23 06:48 36.8 C 62 18 126/65 99 Nasal Cannula 02/10/23 02:43 36.5 C 71 20 107/65 99 Room Air, Nasal Cannula O2 Flow Rate 02/10/23 11:09 02/10/23 11:09 02/10/23 11:05 02/10/23 07:01 2 02/10/23 06:48 2 02/10/23 02:43 2 Laboratory Results Laboratory Results WBC 3.31 K/ul (4.8-10.8) L 02/10/23 05:34 RBC 2.90 M/uL (4.70-6.10) L 02/10/23 05:34 Hgb 9.5 g/dl (14.0-18.0) L 02/10/23 05:34 Hct 29.8 % (42.0-52.0) L 02/10/23 05:34 MCV 102.8 fL (80.0-100.0) H 02/10/23 05:34 MCH 32.8 pg (25.0-34.0) 02/10/23 05:34 MCHC 31.9 g/dL (32.0-36.0) L 02/10/23 05:34 RDW Std Deviation 54.8 fL (36.4-46.3) H 02/10/23 05:34 RDW Coeff of Drew 14.6 % (11.5-14.5) H 02/10/23 05:34 Plt Count 99 K/uL (130-400) L 02/10/23 05:34 MPV 10.9 fL (9.4-12.4) 02/10/23 05:34 Immature Gran % (Auto) 0.3 % 02/10/23 05:34 Neut % (Auto) 79.2 % 02/10/23 05:34 Lymph % (Auto) 12.1 % 02/10/23 05:34 [place] % (Auto) 6.3 % 02/10/23 05:34 Eos % (Auto) 1.5 % 02/10/23 05:34 Baso % (Auto) 0.6 % 02/10/23 05:34 Neut # (Auto) 2.62 K/uL (1.40-6.50) 02/10/23 05:34 Lymph # (Auto) 0.40 K/uL (1.2-3.4) L 02/10/23 05:34 [place] # (Auto) 0.21 K/uL (0.11-0.59) 02/10/23 05:34 Eos # (Auto) 0.05 K/uL (0-0.50) 02/10/23 05:34 Baso # (Auto) 0.02 K/uL (0-0.2) 02/10/23 05:34 Immature Gran # (Auto) 0.01 K/uL (0.01-0.20) 02/10/23 05:34 Platelet Estimate Decreased (Normal) L 02/09/23 05:19 RBC Morphology Unremarkable 02/08/23 09:48 PT 10.9 Seconds (9.0-12.0) 02/08/23 09:48 INR 1.0 (0.9-1.1) 02/08/23 09:48 VBG pH 7.30 (7.36-7.41) L 02/08/23 10:20 VBG pCO2 52 mmHg (38-50) H 02/08/23 10:20 VBG pO2 33 mmHg 02/08/23 10:20 VBG HCO3 26 mmol/L 02/08/23 10:20 VBG O2 Saturation < 60.0 % 02/08/23 10:20 VBG Base Excess -1.3 mEq/L 02/08/23 10:20 Sodium 134 mmol/L (136-145) L 02/10/23 05:34 Potassium 4.9 mmol/L (3.5-5.1) D 02/10/23 05:34 Chloride 107 mmol/L (98-107) 02/10/23 05:34 Carbon Dioxide 28 mmol/L (21-32) 02/10/23 05:34 Anion Gap -1 (3-11) L 02/10/23 05:34 BUN 17 mg/dl (6-23) 02/10/23 05:34 Creatinine 0.57 mg/dl (0.6-1.4) L 02/10/23 05:34 Est Cr Clr Drug Dosing 116.0 ml/min 02/10/23 05:34 Est GFR ( Amer) 122.3 ml/min 02/10/23 05:34 Est GFR (Non-Af Amer) 105.5 ml/min 02/10/23 05:34 BUN/Creatinine Ratio 29.8 (10-20) H 02/10/23 05:34 Glucose 88 mg/dl (70-99(Fasting)) 02/10/23 05:34 POC Glucose 97 mg/dl (70-99) 02/10/23 11:15 Lactate 2.0 mmol/L (0.4-2.0) 02/08/23 12:12 Calcium 7.9 mg/dl (8.6-10.3) L 02/10/23 05:34 Magnesium 1.7 mg/dl (1.7-2.4) 02/08/23 16:59 Total Bilirubin 0.2 mg/dl (0.2-1.0) 02/10/23 05:34 Direct Bilirubin 0.0 mg/dl (0-0.2) 02/08/23 09:48 AST 25 U/L (13-39) 02/10/23 05:34 ALT 20 U/L (7-52) 02/10/23 05:34 Alkaline Phosphatase 61 U/L (34-104) 02/10/23 05:34 Troponin I High Sens 41.8 pg/ml (0-20) H D 02/08/23 16:59 Total Protein 5.5 gm/dl (6.0-8.3) L D 02/10/23 05:34 Albumin 3.1 gm/dl (3.4-5.0) L 02/10/23 05:34 Globulin 2.4 gm/dl (2.5-4.0) L 02/10/23 05:34 Albumin/Globulin Ratio 1.3 (0.9-2) 02/10/23 05:34 Procalcitonin 0.49 ng/ml (0-0.5) 02/08/23 09:48 Urine Color Yellow 02/08/23 10:03 Urine Appearance Cloudy (Clear) A 02/08/23 10:03 Urine pH 5.5 (4.5-7.5) 02/08/23 10:03 Ur Specific Embarrass 1.016 (1.000-1.030) 02/08/23 10:03 Urine Protein Trace (Negative) H 02/08/23 10:03 Urine Glucose (UA) Negative (Negative) 02/08/23 10:03 Urine Ketones Trace (Negative) H 02/08/23 10:03 Urine Blood Negative (Negative) 02/08/23 10:03 Urine Nitrite Negative (Negative) 02/08/23 10:03 Urine Bilirubin Negative (Negative) 02/08/23 10:03 Urine Urobilinogen Negative (Negative) 02/08/23 10:03 Ur Leukocyte Esterase 2+ (Negative) H 02/08/23 10:03 Urine WBC (Auto) >30 /hpf (0-5) H 02/08/23 10:03 Urine RBC (Auto) 0-4 /hpf (0-4) 02/08/23 10:03 U Hyaline Cast (Auto) 1-5 /lpf (0-5) 02/08/23 10:03 U Epithel Cells (Auto) 10-20 /lpf (0-5) H 02/08/23 10:03 Urine Bacteria (Auto) Negative (Negative) 02/08/23 10:03 Nasal Screen MRSA (PCR) Negative (Negative) 02/08/23 11:48 Stl C. cayetanensis PCR Not Detected (NotDetected) 02/08/23 09:55 Stool Rotavirus A PCR Not Detected (NotDetected) 02/08/23 09:55 Stl Adenov F 40/41 PCR Not Detected (NotDetected) 02/08/23 09:55 Stool Astrovirus (PCR) Not Detected (NotDetected) 02/08/23 09:55 Stool Campylobacter PCR Not Detected (NotDetected) 02/08/23 09:55 Stl C. diff Tox B Gene Positive Cdiff Gene (Neg) H 02/08/23 09:55 Stl C.difficile Tox A&B Negative Cdiff Toxin (Negative) 02/08/23 09:55 Stool Cryptosporidium PCR Not Detected (NotDetected) 02/08/23 09:55 Stl E.coli Shiga Tox PCR Not Detected (NotDetected) 02/08/23 09:55 Stl Enterotoxigenic E PCR Not Detected (NotDetected) 02/08/23 09:55 Stool EPEC (PCR) Not Detected (NotDetected) 02/08/23 09:55 Stool EAEC (PCR) Not Detected (NotDetected) 02/08/23 09:55 Stl E. histolytica PCR Not Detected (NotDetected) 02/08/23 09:55 Stool Giardia Lamblia PCR Not Detected (NotDetected) 02/08/23 09:55 Stool Salmonella PCR Not Detected (NotDetected) 02/08/23 09:55 Stool Sapovirus (PCR) Not Detected (NotDetected) 02/08/23 09:55 Stl P. shigelloides PCR Not Detected (NotDetected) 02/08/23 09:55 Stl Shigella/EIEC PCR Not Detected (NotDetected) 02/08/23 09:55 St Y.enterocolitica PCR Not Detected (NotDetected) 02/08/23 09:55 Stool Vibrio (PCR) Not Detected (NotDetected) 02/08/23 09:55 Stl Vibrio cholerae PCR Not Detected (NotDetected) 02/08/23 09:55 Stl Norovirus GI/GII PCR DETECTED (NotDetected) A* 02/08/23 09:55 Adenovirus (PCR) Not Detected (NotDetected) 02/08/23 09:45 B. pertussis DNA (PCR) Not Detected (NotDetected) 02/08/23 09:45 B.parapertussis DNA PCR Not Detected (NotDetected) 02/08/23 09:45 C. pneumoniae DNA (PCR) Not Detected (NotDetected) 02/08/23 09:45 Coronavirus OC43 (PCR) Not Detected (NotDetected) 02/08/23 09:45 Coronavirus HKU1 (PCR) Not Detected (NotDetected) 02/08/23 09:45 Coronavirus 229E (PCR) Not Detected (NotDetected) 02/08/23 09:45 SARS-CoV-2 (PCR) Not Detected (NotDetected) 02/08/23 09:45 Coronavirus NL63 (PCR) Not Detected (NotDetected) 02/08/23 09:45 Human Metapneumovir PCR Not Detected (NotDetected) 02/08/23 09:45 Influenza Type A (PCR) Not Detected (NotDetected) 02/08/23 09:45 Influenza Type B (PCR) Not Detected (NotDetected) 02/08/23 09:45 M. pneumoniae (PCR) Not Detected (NotDetected) 02/08/23 09:45 Parainfluenza 1 (PCR) Not Detected (NotDetected) 02/08/23 09:45 Parainfluenza 2 (PCR) Not Detected (NotDetected) 02/08/23 09:45 Parainfluenza 3 (PCR) Not Detected (NotDetected) 02/08/23 09:45 Parainfluenza 4 (PCR) Not Detected (NotDetected) 02/08/23 09:45 RSV (PCR) Not Detected (NotDetected) 02/08/23 09:45 Entero/Rhino (PCR) Not Detected (NotDetected) 02/08/23 09:45 Impressions Chest X-Ray 02/08/23 09:43 SINGLE VIEW CHEST CLINICAL HISTORY: Sepsis. FINDINGS: 2 AP, portable, upright chest radiographs are compared to study dated 12/24/2022 and correlated with chest CT dated 12/21/2022. The heart is enlarged. The pulmonary vasculature is noncongested. Chronic interstitial thickening is similar to previous. Scarring/atelectasis is seen at the lung bases. No airspace consolidation or large pleural effusion is identified. No pneumothorax is seen. The skeletal structures are osteopenic. There are chronic/healed bilateral rib fractures. Degenerative change and scoliosis is noted in the spine. An IVC filter is seen below the right hemidiaphragm. IMPRESSION: Cardiomegaly with no acute cardiopulmonary abnormality identified. ACT 112: Negative or not required by law. Electronically signed by: Beka Irby M.D. 02/08/2023 10:28 AM Abdomen/Pelvis CT 02/08/23 13:21 CT SCAN OF THE ABDOMEN AND PELVIS WITH IV CONTRAST CLINICAL HISTORY: Nausea and vomiting. Diarrhea. COMPARISON STUDY: Abdominal CT dated 12/21/2022. TECHNIQUE: Following the IV administration of 88 cc of Optiray 350, CT scan of the abdomen and pelvis is performed from the lung bases to the proximal femora. Images are reviewed in the axial, sagittal, and coronal planes. IV contrast was administered without complication. A dose lowering technique was utilized adhering to the principles of ALARA. The examination is compromised by motion artifact. CT DOSE: 294.45 mGy.cm FINDINGS: Lung bases: The heart is enlarged and without pericardial effusion. The aortic valve leaflets and mitral annulus are densely calcified. Airspace consolidation is seen at both lung bases. No pleural effusion is identified. A small hiatal hernia is noted. Liver: The contrast-enhanced liver is enlarged, measuring 21.7 cm in length. The liver is otherwise normal in contour and attenuation. There is no intrahepatic biliary ductal dilatation. The hepatic veins and portal veins are patent. Periportal edema is noted. Gallbladder: Surgically absent noting clips in the gallbladder fossa. Spleen: Normal in size and attenuation. Pancreas: Unremarkable. Adrenal glands: Unremarkable. Kidneys: The contrast enhanced kidneys demonstrate mild cortical atrophy and/or without hydronephrosis. The kidneys enhance symmetrically. Abdominal vasculature: The abdominal aorta is normal in course and caliber noting mild to moderate atherosclerotic calcification. A suprarenal IVC filter is in place. Bowel: The rectal wall is thickened and hyperemic with mild surrounding infiltration. Liquid stool is seen throughout the colon. No bowel obstruction is seen. The appendix is not visualized. There is a small duodenal diverticulum. Peritoneum: There is no intraperitoneal free air or abdominal ascites. Lymphadenopathy: None. Pelvic viscera: The bladder wall is circumferentially thickened and appears hyperemic. The prostate gland is diminutive and heterogeneous. Skeletal structures: The skeletal structures are osteopenic. No lytic or blastic lesions are seen. There is chronic posterior neck deformity of both pubic rings and the sacrum. There are chronic compression deformities of T11, T12, and L1. [id number] lumbosacral spondylosis is observed. There are numerous chronic/healed bilateral rib fractures. IMPRESSION: 1. There is evidence of a nonspecific proctitis. Correlate clinically. 2. Liquid stool is seen throughout the colon. Correlate for evidence of a diarr heal illness. 3. The bladder wall is thickened and hyperemic. Correlate with clinical findings and urinalysis. 4. Mild patchy airspace consolidation is seen at both lung bases. Correlate clinically for evidence of an infectious/inflammatory pneumonitis. 5. Mild cardiomegaly. 6. Hepatomegaly. 7. Additional findings as above. ACT 112: Negative or not required by law. Electronically signed by: Beka Irby M.D. 02/08/2023 2:14 PM (3) Sepsis Acute respiratory failure type: with hypoxia Sepsis acute organ dysfunction status: with acute organ dysfunction Sepsis type: sepsis due to unspecified o rganism Severe sepsis acute organ dysfunction type: acute respiratory failure Severe sepsis shock status: unspecified Qualified Code(s): A41.9 - Sepsis, unspecified organism; R65.20 - Severe sepsis without septic shock; J96.01 - Acute respiratory failure with hypoxia
[2023-02-10] MEDS: AMOXICILLIN 500 MG CAP PO SCH ×2 (12:20→19:59)
[2023-02-10] MEDS ORDERED: AMOXICILLIN SUSP 400 MG/5 ML UDP PO SCH (14:00)
[2023-02-10] MEDS ORDERED: AMOXICILLIN/CLAVULANATE SUSP 250/62.5MG 5 ML UDP PO SCH (14:00)
[2023-02-10] MEDS: DEXTROSE 50% 50 ML SYRINGE IV PRN (14:38)
[2023-02-10] MEDS: TAMSULOSIN HCL 0.4 MG CAP PO SCH (14:47)
--- NOTE | 2023-02-10 14:47 | Pharmacy Report ---
Pharmacy Glycemic Short Note 2 - Date of Service February 10, 2023 - Glycemic Short BSG Results (Last 24 hours): 02/09/23 02/09/23 02/09/23 16:05 20:20 23:04 Glucose POC Glucose 171 H 163 H 87 02/10/23 02/10/23 02/10/23 00:01 02:09 04:36 Glucose POC Glucose 75 94 92 02/10/23 02/10/23 02/10/23 05:34 07:20 11:15 Glucose 88 POC Glucose 104 H 97 OUTPATIENT ANTIDIABETIC REGIMEN: * Metformin 1000 mg PO BID + Januvia 100 mg PO qAM * A1c = 7.6% ASSESSMENT: 02/10 * BSGs yesterday were 61-73-266-163-75 mg/dL. Fasting this morning was 104 mg/dL * Will further loosen HS novolog to try and prevent overnight downtrend. Will also decrease evening scale, with the intent of transitioning to qam lantus if possible. * Patient is tolerating a diet 02/09 * 66yo male with a PMH of intellectual disability due to cerebral palsy, DM2, COPD, PVD, TRINIDAD, GERD, chronic stasis dermatitis, hearing loss, osteoporosis, and valvular heart disease (mild MR/TR/Aortic Stenosis) who presented with fever and cough. Recent gastroenteritis, however physician notes indicate patient is tolerating an oral diet. * Severe hyperglycemia on admission. Patient received 31 units of Lantus + 21 units of Novolog yesterday. * Today BSGs are below goal (70, 87 mg/dL). Review of past admission data shows that patient typically requires Lantus 16 units per day. I will start with a reduced Lantus scale this evening - may consider starting 16 units daily tomorrow if BSGs have recovered. PLAN FOR INPATIENT GLYCEMIC CONTROL: * Hold outpatient oral diabetes medications * Basal insulin * Lantus 0-5 units SQ HS (0 for BSG < 160, 5 for BSG > 160) * Bolus insulin * NovoLog per scale ACHS or Q6hrs while NPO * Goal Range: Low 120 mg/dL - High 150 mg/dL Breakfast: * Correction Factor: 35 mg/dL/unit * Nutritional / Prandial insulin per carb ratio of 1 unit per 9 grams CHO consumed Lunch/dinner/HS: * Correction Factor: 40 mg/dL/unit * Nutritional / Prandial insulin per carb ratio of 1 unit per 16 grams CHO consumed HS: * Correction Factor: 55 mg/dL/unit * Nutritional / Prandial insulin per carb ratio of 1 unit per 22 grams CHO consumed
[2023-02-10] MEDS: ALUMINUM/MAGNESIUM/SIMETH (MAALOX MAX) 30 ML UDC PO SCH (20:00)
[2023-02-10] MEDS: SIMVASTATIN 40 MG TAB PO SCH (20:08)
[2023-02-10] MEDS: traZODone HCL 50 MG TAB PO SCH (20:11)
[2023-02-11] MEDS: SODIUM CHLOR 7% 4 ML NEB NEB SCH ×2 (06:49→19:08)
[2023-02-11] MEDS: ALBUT/IPRATROP 3MG/0.5MG NEB 3 ML VIAL NEB SCH ×2 (06:49→19:08)
[2023-02-11 07:14] LABS: Basophils # (auto) 0.02 K/uL (0-0.2); Basophils % (auto) 0.7 %; Eosinophils # (auto) 0.05 K/uL (0-0.50); Eosinophils % (auto) 1.9 %; Hematocrit (blood only) 31.7 % (42.0-52.0); Hemoglobin 10.2 g/dl (14.0-18.0); Lymphocytes # (auto) 0.47 K/uL (1.2-3.4); Lymphocytes % (auto) 17.6 %; Mean Corpuscular Hemoglobin 32.7 pg (25.0-34.0); Mean Corpuscular Hgb Conc 32.2 g/dL (32.0-36.0); Mean Corpuscular Volume 101.6 fL (80.0-100.0); Monocytes # (auto) 0.25 K/uL (0.11-0.59); Monocytes % (auto) 9.4 %; Neutrophils # (auto) 1.88 K/uL (1.40-6.50); Neutrophils % (auto) 70.4 %; Platelet Count 97 K/uL (130-400); RDW Coefficient of Variation 14.6 % (11.5-14.5); Red Blood Count 3.12 M/uL (4.70-6.10); White Blood Count 2.67 K/ul (4.8-10.8)
[2023-02-11 07:18] LABS: Albumin Globulin Ratio 1.2 (0.9-2); Albumin Level 3.2 gm/dl (3.4-5.0); Bilirubin,Total 0.3 mg/dl (0.2-1.0); Calcium 8.4 mg/dl (8.6-10.3); Creatinine Clr Calc Pharmacy 132.2 ml/min; Est GFR (African American) 129.1 ml/min; Est GFR (Non-African American) 111.4 ml/min; Globulin 2.6 gm/dl (2.5-4.0); Potassium 5.1 mmol/L (3.5-5.1); Total Protein 5.8 gm/dl (6.0-8.3)
[2023-02-11] MEDS: INSULIN ASPART PER UNIT CHARGE SC SCH ×4 (08:37→20:13)
[2023-02-11] MEDS: ENOXAPARIN INJ 40 MG/0.4 ML SYR SQ SCH (08:38)
[2023-02-11] MEDS: CHOLECALCIFEROL 1,000 UNITS 25 MCG TAB PO SCH (08:39)
[2023-02-11] MEDS: PANTOprazole 40 MG TAB PO SCH (08:39)
[2023-02-11] MEDS: METOPROLOL TARTRATE 25 MG TAB PO SCH ×2 (08:39→20:14)
[2023-02-11] MEDS: ADVANCED PROBIOTIC 1250 MG CAPSULE PO SCH (08:39)
[2023-02-11] MEDS: ESCITALOPRAM OXALATE 20 MG TAB PO SCH (08:39)
[2023-02-11] MEDS: risperiDONE 2 MG TABLET PO SCH ×3 (08:39→20:14)
[2023-02-11] MEDS: GABAPENTIN 300 MG CAP PO SCH ×3 (08:39→20:13)
[2023-02-11] MEDS: OXcarbazepine 150 MG TABLET PO SCH ×2 (08:40→20:11)
[2023-02-11] MEDS: MULTIVITAMIN TAB PO SCH (08:40)
[2023-02-11] MEDS: PENTOXIFYLLINE 400MG EXT REL TAB PO SCH ×3 (08:41→20:14)
[2023-02-11] MEDS: LORATADINE 10 MG TAB PO SCH (08:41)
[2023-02-11] MEDS: AMOXICILLIN 500 MG CAP PO SCH ×3 (08:42→20:12)
[2023-02-11] MEDS: TAMSULOSIN HCL 0.4 MG CAP PO SCH (08:42)
[2023-02-11] MEDS: clonazePAM 0.5 MG TAB PO SCH ×2 (08:44→20:12)
[2023-02-11] MEDS ORDERED: LANTUS PER UNIT CHARGE SC SCH (09:00)
--- NOTE | 2023-02-11 11:10 | Hospitalist Progress Note ---
Date of Service February 11, 2023 Assessment & Plan (1) Gastroenteritis: (2) Abnormal urinalysis: (3) Sepsis: (4) Hypoxia: (5) Diabetes mellitus, type 2: (6) Cerebral palsy: (7) Elevated troponin: (8) Aortic stenosis: (9) Chronic obstructive pulmonary disease: (10) Intellectual disability: (11) Pressure ulcer of coccygeal region, stage 3: Plan This is a 66yo male with a PMH of intellectual disability due to cerebral palsy, DM2, COPD, PVD, TRINIDAD, GERD, chronic stasis dermatitis, hearing loss, osteoporosis, and valvular heart disease (mild MR/TR/Aortic Stenosis) who presents to the ED today from [facility] with fever and cough. N/V, diarrhea 2/2 norovirus Presented from [facility] with fever and cough. C. difficile gene positive but toxin negative GI PCR panel positive for norovirus CT abd/pelvis personally reviewed; liquid stool throughout colon, nonspecific proctitis Patient tolerating food; continue on current diet. Monitor for diarrhea. Complicated UTI Acute urinary retention acute urinary retention Urine analysis suggestive of infection Urine culture grew E faecalis; sensitive to penicillin We will change the antibiotics to amoxicillin 1 g 3 times daily for 3 more days (end date of February 13). Discussed with pharmacy. Blue placed due to repeated urinary retention on February 10. Maintain Blue for 1 week; trial of void in 1 week duration. Acute hypoxic respiratory failure He desaturated to less than 90% in room air and was tachypneic on admission. History of frequent pneumonia in the past. CT abdomen pelvis also suggestive of consolidation. Aspiration precautions Airway clearance therapy with DuoNebs and hypertonic saline. Will complete antibiotic course with 3 more days of amoxicillin. Hypomagnesemia Repleted Repeat labs reviewed; improvement noted. DM II A1c 7.6 in Oct 2022, Hold home agents SSI while in-patient BSG AC HS Stage 3 coccyx wound -> recently healed Has been following with wound care, Turn and position q2, keep area dry Intellectual disability Resides at [facility] Wheel chair bound at baseline Continue oxcarbazepine, trazodone, risperidone Hx of SVT Continue on metoprolol Telemetry monitoring HLD Continue statin PVD/PAD Chronic stasis dermatitis No signs of cellulitis. Continue pentoxifylline DVT ppx:SQ Lovenox Code status:FULL PCP:Clari Dispo:Admitted to PCU. PT OT ordered. Plan to to eventually discharge back to [facility]; awaiting PT OT recommendation. Please note the above document was generated using voice recognition software. It may contain grammatical, syntax or spelling errors. Any formal questions or concerns about the content, text or information contained within the body of this dictation should be directly addressed to the provider for clarification Admission and Anticipated Discharge Date Admission Date: February 08, 2023 Subjective Patient seen and examined at bedside. He is comfortable lying on the bed; not in any distress. Saturating well on room air. No episode of diarrhea. Review of Systems Review of Systems: All systems reviewed & are unremarkable except as noted in Subjective Physical Exam Physical Exam: Constitutional: Alert, oriented to self; not in any distress. Respiratory: Decreased breath sound at bases. Cardiovascular: RRR,1/6 mark, no edema but bilateral chronic venous stasis changes vessels: no JVD or carotid bruit Chest: normal inspection of chest Abdomen: normal bowel sounds, soft, nontender, no hepatosplenomegaly Musculoskeletal: no cyanosis or clubbing, unable to assess MSK due to pt unable to follow direction Skin: no rashes, warm and moderate normal turgor Neurologic: PERRL, EOMI, accommodation nl, no face palsy, no dysarthria CN's II-XI intact bilaterally and moves all extremities Psychiatric: A+O to self and place only, euthymic affect Lymphatic: no cervical or axillary lymphadenopathy : deferred Results & Data Results & Data Vital Signs (Past 12 Hours) Vital Signs Temp Pulse Pulse Resp BP Pulse Ox O2 Del Method 02/11/23 09:13 66 02/11/23 07:11 37.1 C 60 16 134/63 100 Nebulizer 02/11/23 06:49 77 18 94 Room Air 02/11/23 04:01 36.8 C 82 20 143/73 H 95 Room Air 02/10/23 23:28 65 O2 Flow Rate 02/11/23 09:13 02/11/23 07:11 8.5 02/11/23 06:49 02/11/23 04:01 02/10/23 23:28 Laboratory Results Laboratory Results WBC 2.67 K/ul (4.8-10.8) L 02/11/23 05:48 RBC 3.12 M/uL (4.70-6.10) L 02/11/23 05:48 Hgb 10.2 g/dl (14.0-18.0) L 02/11/23 05:48 Hct 31.7 % (42.0-52.0) L 02/11/23 05:48 MCV 101.6 fL (80.0-100.0) H 02/11/23 05:48 MCH 32.7 pg (25.0-34.0) 02/11/23 05:48 MCHC 32.2 g/dL (32.0-36.0) 02/11/23 05:48 RDW Std Deviation 54.0 fL (36.4-46.3) H 02/11/23 05:48 RDW Coeff of Drew 14.6 % (11.5-14.5) H 02/11/23 05:48 Plt Count 97 K/uL (130-400) L 02/11/23 05:48 MPV 11.0 fL (9.4-12.4) 02/11/23 05:48 Immature Gran % (Auto) 0.0 % 02/11/23 05:48 Neut % (Auto) 70.4 % 02/11/23 05:48 Lymph % (Auto) 17.6 % 02/11/23 05:48 [place] % (Auto) 9.4 % 02/11/23 05:48 Eos % (Auto) 1.9 % 02/11/23 05:48 Baso % (Auto) 0.7 % 02/11/23 05:48 Neut # (Auto) 1.88 K/uL (1.40-6.50) 02/11/23 05:48 Lymph # (Auto) 0.47 K/uL (1.2-3.4) L 02/11/23 05:48 [place] # (Auto) 0.25 K/uL (0.11-0.59) 02/11/23 05:48 Eos # (Auto) 0.05 K/uL (0-0.50) 02/11/23 05:48 Baso # (Auto) 0.02 K/uL (0-0.2) 02/11/23 05:48 Immature Gran # (Auto) 0.00 K/uL (0.01-0.20) L 02/11/23 05:48 Platelet Estimate Decreased (Normal) L 02/09/23 05:19 RBC Morphology Unremarkable 02/08/23 09:48 PT 10.9 Seconds (9.0-12.0) 02/08/23 09:48 INR 1.0 (0.9-1.1) 02/08/23 09:48 VBG pH 7.30 (7.36-7.41) L 02/08/23 10:20 VBG pCO2 52 mmHg (38-50) H 02/08/23 10:20 VBG pO2 33 mmHg 02/08/23 10:20 VBG HCO3 26 mmol/L 02/08/23 10:20 VBG O2 Saturation < 60.0 % 02/08/23 10:20 VBG Base Excess -1.3 mEq/L 02/08/23 10:20 Sodium 133 mmol/L (136-145) L 02/11/23 05:48 Potassium 5.1 mmol/L (3.5-5.1) 02/11/23 05:48 Chloride 101 mmol/L (98-107) 02/11/23 05:48 Carbon Dioxide 29 mmol/L (21-32) 02/11/23 05:48 Anion Gap 3 (3-11) 02/11/23 05:48 BUN 12 mg/dl (6-23) 02/11/23 05:48 Creatinine 0.50 mg/dl (0.6-1.4) L 02/11/23 05:48 Est Cr Clr Drug Dosing 132.2 ml/min 02/11/23 05:48 Est GFR ( Amer) 129.1 ml/min 02/11/23 05:48 Est GFR (Non-Af Amer) 111.4 ml/min 02/11/23 05:48 BUN/Creatinine Ratio 24.0 (10-20) H 02/11/23 05:48 Glucose 202 mg/dl (70-99(Fasting)) H 02/11/23 05:48 POC Glucose 229 mg/dl (70-99) H 02/11/23 07:18 Lactate 2.0 mmol/L (0.4-2.0) 02/08/23 12:12 Calcium 8.4 mg/dl (8.6-10.3) L 02/11/23 05:48 Magnesium 1.7 mg/dl (1.7-2.4) 02/08/23 16:59 Total Bilirubin 0.3 mg/dl (0.2-1.0) 02/11/23 05:48 Direct Bilirubin 0.0 mg/dl (0-0.2) 02/08/23 09:48 AST 23 U/L (13-39) 02/11/23 05:48 ALT 21 U/L (7-52) 02/11/23 05:48 Alkaline Phosphatase 75 U/L (34-104) 02/11/23 05:48 Troponin I High Sens 41.8 pg/ml (0-20) H D 02/08/23 16:59 Total Protein 5.8 gm/dl (6.0-8.3) L 02/11/23 05:48 Albumin 3.2 gm/dl (3.4-5.0) L 02/11/23 05:48 Globulin 2.6 gm/dl (2.5-4.0) 02/11/23 05:48 Albumin/Globulin Ratio 1.2 (0.9-2) 02/11/23 05:48 Procalcitonin 0.49 ng/ml (0-0.5) 02/08/23 09:48 Urine Color Yellow 02/08/23 10:03 Urine Appearance Cloudy (Clear) A 02/08/23 10:03 Urine pH 5.5 (4.5-7.5) 02/08/23 10:03 Ur Specific [place] 1.016 (1.000-1.030) 02/08/23 10:03 Urine Protein Trace (Negative) H 02/08/23 10:03 Urine Glucose (UA) Negative (Negative) 02/08/23 10:03 Urine Ketones Trace (Negative) H 02/08/23 10:03 Urine Blood Negative (Negative) 02/08/23 10:03 Urine Nitrite Negative (Negative) 02/08/23 10:03 Urine Bilirubin Negative (Negative) 02/08/23 10:03 Urine Urobilinogen Negative (Negative) 02/08/23 10:03 Ur Leukocyte Esterase 2+ (Negative) H 02/08/23 10:03 Urine WBC (Auto) >30 /hpf (0-5) H 02/08/23 10:03 Urine RBC (Auto) 0-4 /hpf (0-4) 02/08/23 10:03 U Hyaline Cast (Auto) 1-5 /lpf (0-5) 02/08/23 10:03 U Epithel Cells (Auto) 10-20 /lpf (0-5) H 02/08/23 10:03 Urine Bacteria (Auto) Negative (Negative) 02/08/23 10:03 Nasal Screen MRSA (PCR) Negative (Negative) 02/08/23 11:48 Stl C. cayetanensis PCR Not Detected (NotDetected) 02/08/23 09:55 Stool Rotavirus A PCR Not Detected (NotDetected) 02/08/23 09:55 Stl Adenov F 40/41 PCR Not Detected (NotDetected) 02/08/23 09:55 Stool Astrovirus (PCR) Not Detected (NotDetected) 02/08/23 09:55 Stool Campylobacter PCR Not Detected (NotDetected) 02/08/23 09:55 Stl C. diff Tox B Gene Positive Cdiff Gene (Neg) H 02/08/23 09:55 Stl C.difficile Tox A&B Negative Cdiff Toxin (Negative) 02/08/23 09:55 Stool Cryptosporidium PCR Not Detected (NotDetected) 02/08/23 09:55 Stl E.coli Shiga Tox PCR Not Detected (NotDetected) 02/08/23 09:55 Stl Enterotoxigenic E PCR Not Detected (NotDetected) 02/08/23 09:55 Stool EPEC (PCR) Not Detected (NotDetected) 02/08/23 09:55 Stool EAEC (PCR) Not Detected (NotDetected) 02/08/23 09:55 Stl E. histolytica PCR Not Detected (NotDetected) 02/08/23 09:55 Stool Giardia Lamblia PCR Not Detected (NotDetected) 02/08/23 09:55 Stool Salmonella PCR Not Detected (NotDetected) 02/08/23 09:55 Stool Sapovirus (PCR) Not Detected (NotDetected) 02/08/23 09:55 Stl P. shigelloides PCR Not Detected (NotDetected) 02/08/23 09:55 Stl Shigella/EIEC PCR Not Detected (NotDetected) 02/08/23 09:55 St Y.enterocolitica PCR Not Detected (NotDetected) 02/08/23 09:55 Stool Vibrio (PCR) Not Detected (NotDetected) 02/08/23 09:55 Stl Vibrio cholerae PCR Not Detected (NotDetected) 02/08/23 09:55 Stl Norovirus GI/GII PCR DETECTED (NotDetected) A* 02/08/23 09:55 Adenovirus (PCR) Not Detected (NotDetected) 02/08/23 09:45 B. pertussis DNA (PCR) Not Detected (NotDetected) 02/08/23 09:45 B.parapertussis DNA PCR Not Detected (NotDetected) 02/08/23 09:45 C. pneumoniae DNA (PCR) Not Detected (NotDetected) 02/08/23 09:45 Coronavirus OC43 (PCR) Not Detected (NotDetected) 02/08/23 09:45 Coronavirus HKU1 (PCR) Not Detected (NotDetected) 02/08/23 09:45 Coronavirus 229E (PCR) Not Detected (NotDetected) 02/08/23 09:45 SARS-CoV-2 (PCR) Not Detected (NotDetected) 02/08/23 09:45 Coronavirus NL63 (PCR) Not Detected (NotDetected) 02/08/23 09:45 Human Metapneumovir PCR Not Detected (NotDetected) 02/08/23 09:45 Influenza Type A (PCR) Not Detected (NotDetected) 02/08/23 09:45 Influenza Type B (PCR) Not Detected (NotDetected) 02/08/23 09:45 M. pneumoniae (PCR) Not Detected (NotDetected) 02/08/23 09:45 Parainfluenza 1 (PCR) Not Detected (NotDetected) 02/08/23 09:45 Parainfluenza 2 (PCR) Not Detected (NotDetected) 02/08/23 09:45 Parainfluenza 3 (PCR) Not Detected (NotDetected) 02/08/23 09:45 Parainfluenza 4 (PCR) Not Detected (NotDetected) 02/08/23 09:45 RSV (PCR) Not Detected (NotDetected) 02/08/23 09:45 Entero/Rhino (PCR) Not Detected (NotDetected) 02/08/23 09:45 Impressions Chest X-Ray 02/08/23 09:43 SINGLE VIEW CHEST CLINICAL HISTORY: Sepsis. FINDINGS: 2 AP, portable, upright chest radiographs are compared to study dated 12/24/2022 and correlated with chest CT dated 12/21/2022. The heart is enlarged. The pulmonary vasculature is noncongested. Chronic interstitial thickening is similar to previous. Scarring/atelectasis is seen at the lung bases. No airspace consolidation or large pleural effusion is identified. No pneumothorax is seen. The skeletal structures are osteopenic. There are chronic/healed bilateral rib fractures. Degenerative change and scoliosis is noted in the spine. An IVC filter is seen below the right hemidiaphragm. IMPRESSION: Cardiomegaly with no acute cardiopulmonary abnormality identified. ACT 112: Negative or not required by law. Electronically signed by: Beka Irby M.D. 02/08/2023 10:28 AM Abdomen/Pelvis CT 02/08/23 13:21 CT SCAN OF THE ABDOMEN AND PELVIS WITH IV CONTRAST CLINICAL HISTORY: Nausea and vomiting. Diarrhea. COMPARISON STUDY: Abdominal CT dated 12/21/2022. TECHNIQUE: Following the IV administration of 88 cc of Optiray 350, CT scan of the abdomen and pelvis is performed from the lung bases to the proximal femora. Images are reviewed in the axial, sagittal, and coronal planes. IV contrast was administered without complication. A dose lowering technique was utilized adhering to the principles of ALARA. The examination is compromised by motion artifact. CT DOSE: 294.45 mGy.cm FINDINGS: Lung bases: The heart is enlarged and without pericardial effusion. The aortic valve leaflets and mitral annulus are densely calcified. Airspace consolidation is seen at both lung bases. No pleural effusion is identified. A small hiatal hernia is noted. Liver: The contrast-enhanced liver is enlarged, measuring 21.7 cm in length. The liver is otherwise normal in contour and attenuation. There is no intrahepatic biliary ductal dilatation. The hepatic veins and portal veins are patent. Periportal edema is noted. Gallbladder: Surgically absent noting clips in the gallbladder fossa. Spleen: Normal in size and attenuation. Pancreas: Unremarkable. Adrenal glands: Unremarkable. Kidneys: The contrast enhanced kidneys demonstrate mild cortical atrophy and/or without hydronephrosis. The kidneys enhance symmetrically. Abdominal vasculature: The abdominal aorta is normal in course and caliber noting mild to moderate atherosclerotic calcification. A suprarenal IVC filter is in place. Bowel: The rectal wall is thickened and hyperemic with mild surrounding infiltration. Liquid stool is seen throughout the colon. No bowel obstruction is seen. The appendix is not visualized. There is a small duodenal diverticulum. Peritoneum: There is no intraperitoneal free air or abdominal ascites. Lymphadenopathy: None. Pelvic viscera: The bladder wall is circumferentially thickened and appears hyperemic. The prostate gland is diminutive and heterogeneous. Skeletal structures: The skeletal structures are osteopenic. No lytic or blastic lesions are seen. There is chronic posterior neck deformity of both pubic rings and the sacrum. There are chronic compression deformities of T11, T12, and L1. [id number] lumbosacral spondylosis is observed. There are numerous chronic/healed bilateral rib fractures. IMPRESSION: 1. There is evidence of a nonspecific proctitis. Correlate clinically. 2. Liquid stool is seen throughout the colon. Correlate for evidence of a diarrheal illness. 3. The bladder wall is thickened and hyperemic. Correlate with clinical findings and urinalysis. 4. Mild patchy airspace consolidation is seen at both lung bases. Correlate clinically for evidence of an infectious/inflammatory pneumonitis. 5. Mild cardiomegaly. 6. Hepatomegaly. 7. Additional findings as above. ACT 112: Negative or not required by law. Electronically signed by: Beka Irby M.D. 02/08/2023 2:14 PM (3) Sepsis Acute respiratory failure type: with hypoxia Sepsis acute organ dysfunction status: with acute organ dysfunction Sepsis type: sepsis due to unspecified organism Severe sepsis acute organ dysfunction type: acute respiratory failure Severe sepsis shock status: unspecified Qualified Code(s): A41.9 - Sepsis, unspecified organism; R65.20 - Severe sepsis without septic shock; J96.01 - Acute respiratory failure with hypoxia
[2023-02-11] MEDS: MAGNESIUM OXIDE 400 MG TAB PO SCH ×2 (11:53→20:14)
--- NOTE | 2023-02-11 13:13 | Pharmacy Report ---
Pharmacy Glycemic Short Note 2 - Date of Service February 11, 2023 - Glycemic Short BSG Results (Last 24 hours): 02/10/23 02/10/23 02/10/23 14:34 14:53 16:21 Glucose POC Glucose 60 L* 152 H 120 H 02/10/23 02/11/23 02/11/23 20:13 05:48 07:05 Glucose 202 H POC Glucose 170 H 231 H 02/11/23 02/11/23 07:18 11:22 Glucose POC Glucose 229 H 101 H OUTPATIENT ANTIDIABETIC REGIMEN: * Metformin 1000 mg PO BID + Januvia 100 mg PO qAM * A1c = 7.6% ASSESSMENT: 02/11 * Lantus held yesterday night, Fasting this AM in mid 200s-- will give 5 units of lantus this AM * Continue with current novolog parameters, down to 101 mg/dL at lunch, carb ratio removed with lunch and dinner 02/10 * BSGs yesterday were 30-65-563-163-75 mg/dL. Fasting this morning was 104 mg/dL * Will further loosen HS novolog to try and prevent overnight downtrend. Will also decrease evening scale, with the intent of transitioning to qam lantus if possible. * Patient is tolerating a diet 02/09 * 66yo male with a PMH of intellectual disability due to cerebral palsy, DM2, COPD, PVD, TRINIDAD, GERD, chronic stasis dermatitis, hearing loss, osteoporosis, and valvular heart disease (mild MR/TR/Aortic Stenosis) who presented with fever and cough. Recent gastroenteritis, however physician notes indicate patient is tolerating an oral diet. * Severe hyperglycemia on admission. Patient received 31 units of Lantus + 21 un its of Novolog yesterday. * Today BSGs are below goal (70, 87 mg/dL). Review of past admission data shows that patient typically requires Lantus 16 units per day. I will start with a reduced Lantus scale this evening - may consider starting 16 units daily tomorrow if BSGs have recovered. PLAN FOR INPATIENT GLYCEMIC CONTROL: * Hold outpatient oral diabetes medications * Basal insulin * Lantus 5 units qAM * Bolus insulin * NovoLog per scale ACHS or Q6hrs while NPO * Goal Range: Low 120 mg/dL - High 150 mg/dL Breakfast: * Correction Factor: 35 mg/dL/unit * Nutritional / Prandial insulin per carb ratio of 1 unit per 9 grams CHO consumed Lunch/dinner/HS: * Correction Factor: 40 mg/dL/unit * Nutritional / Prandial insulin per carb ratio of 1 unit per - grams CHO consumed HS: * Correction Factor: 55 mg/dL/unit * Nutritional / Prandial insulin per carb ratio of 1 unit per 40 grams CHO consumed
[2023-02-11] MEDS: ALUMINUM/MAGNESIUM/SIMETH (MAALOX MAX) 30 ML UDC PO SCH (20:12)
[2023-02-11] MEDS: traZODone HCL 50 MG TAB PO SCH (20:14)
[2023-02-11] MEDS: SIMVASTATIN 40 MG TAB PO SCH (20:14)
[2023-02-12 06:41] LABS: Basophils # (auto) 0.03 K/uL (0-0.2); Eosinophils # (auto) 0.05 K/uL (0-0.50); Eosinophils % (auto) 1.7 %; Hematocrit (blood only) 29.9 % (42.0-52.0); Hemoglobin 9.9 g/dl (14.0-18.0); Immature Granulocytes # (auto) 0.01 K/uL (0.01-0.20); Immature Granulocytes % (auto) 0.3 %; Lymphocytes # (auto) 0.69 K/uL (1.2-3.4); Lymphocytes % (auto) 24.1 %; Mean Corpuscular Hemoglobin 32.4 pg (25.0-34.0); Mean Corpuscular Hgb Conc 33.1 g/dL (32.0-36.0); Mean Corpuscular Volume 97.7 fL (80.0-100.0); Mean Platelet Volume 10.5 fL (9.4-12.4); Monocytes # (auto) 0.28 K/uL (0.11-0.59); Monocytes % (auto) 9.8 %; Neutrophils % (auto) 63.1 %; Platelet Count 100 K/uL (130-400); RDW Standard Deviation 50.1 fL (36.4-46.3); Red Blood Count 3.06 M/uL (4.70-6.10); White Blood Count 2.86 K/ul (4.8-10.8)
[2023-02-12] MEDS: ALBUT/IPRATROP 3MG/0.5MG NEB 3 ML VIAL NEB SCH (07:07)
[2023-02-12] MEDS: SODIUM CHLOR 7% 4 ML NEB NEB SCH (07:08)
[2023-02-12 07:12] LABS: Albumin Globulin Ratio 1.3 (0.9-2); Albumin Level 3.1 gm/dl (3.4-5.0); BUN Creatinine Ratio 22.4 (10-20); Bilirubin,Total 0.3 mg/dl (0.2-1.0); Calcium 8.7 mg/dl (8.6-10.3); Creatinine Clr Calc Pharmacy 134.9 ml/min; Est GFR (African American) 130.1 ml/min; Est GFR (Non-African American) 112.3 ml/min; Globulin 2.4 gm/dl (2.5-4.0); Potassium 5.2 mmol/L (3.5-5.1); Total Protein 5.5 gm/dl (6.0-8.3)
[2023-02-12] MEDS: OXcarbazepine 150 MG TABLET PO SCH ×2 (08:15→19:35)
[2023-02-12] MEDS: AMOXICILLIN 500 MG CAP PO SCH ×3 (08:16→19:31)
[2023-02-12] MEDS: GABAPENTIN 300 MG CAP PO SCH ×3 (08:17→19:33)
[2023-02-12] MEDS: MAGNESIUM OXIDE 400 MG TAB PO SCH ×2 (08:17→19:32)
[2023-02-12] MEDS: PENTOXIFYLLINE 400MG EXT REL TAB PO SCH ×3 (08:18→19:32)
[2023-02-12] MEDS: risperiDONE 2 MG TABLET PO SCH ×3 (08:18→19:35)
[2023-02-12] MEDS: PANTOprazole 40 MG TAB PO SCH (08:18)
[2023-02-12] MEDS: ADVANCED PROBIOTIC 1250 MG CAPSULE PO SCH (08:19)
[2023-02-12] MEDS: METOPROLOL TARTRATE 25 MG TAB PO SCH ×2 (08:19→19:29)
[2023-02-12] MEDS: ESCITALOPRAM OXALATE 20 MG TAB PO SCH (08:20)
[2023-02-12] MEDS: MULTIVITAMIN TAB PO SCH (08:20)
[2023-02-12] MEDS: CHOLECALCIFEROL 1,000 UNITS 25 MCG TAB PO SCH (08:21)
[2023-02-12] MEDS: LORATADINE 10 MG TAB PO SCH (08:21)
[2023-02-12] MEDS: TAMSULOSIN HCL 0.4 MG CAP PO SCH (08:21)
[2023-02-12] MEDS: ENOXAPARIN INJ 40 MG/0.4 ML SYR SQ SCH (08:22)
[2023-02-12] MEDS: INSULIN ASPART PER UNIT CHARGE SC SCH ×4 (08:40→19:44)
[2023-02-12] MEDS: clonazePAM 0.5 MG TAB PO SCH ×2 (08:41→19:41)
[2023-02-12] MEDS: LANTUS PER UNIT CHARGE SC SCH (08:46)
--- NOTE | 2023-02-12 13:43 | Pharmacy Report ---
Pharmacy Glycemic Short Note 2 - Date of Service February 12, 2023 - Glycemic Short BSG Results (Last 24 hours): 02/11/23 02/11/23 02/12/23 16:31 19:59 05:47 Glucose 198 H POC Glucose 147 H 217 H 02/12/23 02/12/23 07:22 11:34 Glucose POC Glucose 238 H 148 H OUTPATIENT ANTIDIABETIC REGIMEN: * Metformin 1000 mg PO BID + Januvia 100 mg PO qAM * A1c = 7.6% ASSESSMENT: 02/12 * Fasting continues to be elevated this morning, increased lantus dose to 10 units * BSG trended up yesterday, will add back loose carb ratio with lunch and dinner 02/11 * Lantus held yesterday night, Fasting this AM in mid 200s-- will give 5 units of lantus this AM * Continue with current novolog parameters, down to 101 mg/dL at lunch, carb ratio removed with lunch and dinner 02/10 * BSGs yesterday were 87-77-368-163-75 mg/dL. Fasting this morning was 104 mg/dL * Will further loosen HS novolog to try and prevent overnight downtrend. Will also decrease evening scale, with the intent of transitioning to qam lantus if possible. * Patient is tolerating a diet 02/09 * 66yo male with a PMH of intellectual disability due to cerebral palsy, DM2, COPD, PVD, TRINIDAD, GERD, chronic stasis dermatitis, hearing loss, osteoporosis, and valvular heart disease (mild MR/TR/Aortic Stenosis) who presented with fever and cough. Recent gastroenteritis, however physician notes indicate patient is tolerating an oral diet. * Severe hyperglycemia on admission. Patient received 31 units of Lantus + 21 units of Novolog yesterday. * Today BSGs are below goal (70, 87 mg/dL). Review of past admission data shows that patient typically requires Lantus 16 units per day. I will start with a reduced Lantus scale this evening - may consider starting 16 units daily tomorrow if BSGs have recovered. PLAN FOR INPATIENT GLYCEMIC CONTROL: * Hold outpatient oral diabetes medications * Basal insulin * Lantus 10 units qAM * Bolus insulin * NovoLog per scale ACHS or Q6hrs while NPO * Goal Range: Low 120 mg/dL - High 150 mg/dL Breakfast: * Correction Factor: 35 mg/dL/unit * Nutritional / Prandial insulin per carb ratio of 1 unit per 9 grams CHO consumed Lunch/dinner/HS: * Correction Factor: 40 mg/dL/unit * Nutritional / Prandial insulin per carb ratio of 1 unit per 25 grams CHO consumed HS: * Correction Factor: 55 mg/dL/unit * Nutritional / Prandial insulin per carb ratio of 1 unit per 40 grams CHO consumed
--- NOTE | 2023-02-12 15:24 | Hospitalist Progress Note ---
Date of Service February 12, 2023 Assessment & Plan (1) Gastroenteritis: (2) Abnormal urinalysis: (3) Sepsis: (4) Hypoxia: (5) Diabetes mellitus, type 2: (6) Cerebral palsy: (7) Elevated troponin: (8) Aortic stenosis: (9) Chronic obstructive pulmonary disease: (10) Intellectual disability: (11) Pressure ulcer of coccygeal region, stage 3: Plan per Dr. Lopez's notes with addendum: This is a 66yo male with a PMH of intellectual disability due to cerebral palsy, DM2, COPD, PVD, TRINIDAD, GERD, chronic stasis dermatitis, hearing loss, osteoporosis, and valvular heart disease (mild MR/TR/Aortic Stenosis) who presents to the ED today from [facility] with fever and cough. N/V, diarrhea 2/2 norovirus Presented from senior living with fever and cough. C. difficile gene positive but toxin negative GI PCR panel positive for norovirus CT abd/pelvis personally reviewed; liquid stool throughout colon, nonspecific proctitis Patient tolerating food; continue on current diet. Monitor for diarrhea. 02/12 GI symptoms resolved Tolerating diet well Complicated UTI Acute urinary retention acute urinary retention Urine analysis suggestive of infection Urine culture grew E faecalis; sensitive to penicillin We will change the antibiotics to amoxicillin 1 g 3 times daily for 3 more days (end date of February 13). Discussed with pharmacy. Blue placed due to repeated urinary retention on February 10. Maintain Blue for 1 week; trial of void in 1 week duration. 02/12 Continue oral amoxicillin until February 13 Trial of voiding in 1 week Acute hypoxic respiratory failure He desaturated to less than 90% in room air and was tachypneic on admission. History of frequent pneumonia in the past. CT abdomen pelvis also suggestive of consolidation. Aspiration precautions Airway clearance therapy with DuoNebs and hypertonic saline. Will complete antibiotic course with 3 more days of amoxicillin. 02/12 Add doxycycline p.o. twice daily x7 days Hypomagnesemia Repleted Repeat labs reviewed; improvement noted. DM II A1c 7.6 in Oct 2022, Hold home agents SSI while in-patient BSG AC HS Stage 3 coccyx wound -> recently healed Has been following with wound care, Turn and position q2, keep area dry Intellectual disability Resides at [facility] Wheel chair bound at baseline Continue oxcarbazepine, trazodone, risperidone Hx of SVT Continue on metoprolol Telemetry monitoring HLD Continue statin PVD/PAD Chronic stasis dermatitis No signs of cellulitis. Continue pentoxifylline DVT ppx:SQ Lovenox Code status:FULL PCP:Clari Dispo:Return to senior living when accepted Admission and Anticipated Discharge Date Admission Date: February 08, 2023 Subjective Follow-up for gastroenteritis, UTI, etc. Seen sitting up in bed, having lunch Patient awake and alert, very pleasant, in good spirits States he feels fine overall States breathing is okay, cough has resolved Still has some lower abdominal discomfort, but no nausea or vomiting Tolerating diet well No other new symptoms Review of Systems Review of Systems: all noted and negative except for above Physical Exam Physical Exam: General- oriented x 1-2, not in distress, speaks in sentences with no effort or accessory muscle use Eyes- anicteric Neck- no JVD Lungs-mild rhonchi at the bases, no crackles or wheezing, good air entry bilaterally Heart- normal rate, regular rhythm; no murmurs Abdomen- normal bowel sounds, nondistended, soft, very mild suprapubic tenderness Extremities- no pretibial edema, no calf tenderness Neuro- alert, oriented x 1-2; no new gross focal neurologic deficits Skin- warm & dry Results & Data Results & Data Vital Signs (Past 12 Hours) Vital Signs Temp Pulse Pulse Pulse Resp BP Pulse Ox 02/12/23 15:08 36.6 C 63 18 165/83 H 94 02/12/23 11:35 37.0 C 61 22 144/73 H 96 02/12/23 09:22 57 L 02/12/23 07:21 36.5 C 66 16 144/69 H 95 02/12/23 07:08 63 18 94 02/12/23 03:58 37.0 C 63 18 134/62 92 O2 Del Method 02/12/23 15:08 Room Air 02/12/23 11:35 Room Air 02/12/23 09:22 02/12/23 07:21 Room Air 02/12/23 07:08 Room Air 02/12/23 03:58 Room Air all noted and reviewed including below (3) Sepsis Acute respiratory failure type: with hypoxia Sepsis acute organ dysfunction status: with acute organ dysfunction Sepsis type: sepsis due to unspecified organism Severe sepsis acute organ dysfunction type: acute respiratory failure Severe sepsis shock status: unspecified Qualified Code(s): A41.9 - Sepsis, unspecified organism; R65.20 - Severe sepsis without septic shock; J96.01 - Acute respiratory failure with hypoxia
[2023-02-12] MEDS ORDERED: ALBUT/IPRATROP 3MG/0.5MG NEB 3 ML VIAL NEB PRN (15:50)
[2023-02-12] MEDS ORDERED: SODIUM CHLOR 7% 4 ML NEB NEB PRN (15:52)
[2023-02-12] MEDS: traZODone HCL 50 MG TAB PO SCH (19:28)
[2023-02-12] MEDS: DOXYCYCLINE HYCLATE 100 MG CAP PO SCH (19:28)
[2023-02-12] MEDS: ALUMINUM/MAGNESIUM/SIMETH (MAALOX MAX) 30 ML UDC PO SCH (19:29)
[2023-02-12] MEDS: SIMVASTATIN 40 MG TAB PO SCH (19:34)
[2023-02-13] MEDS: risperiDONE 2 MG TABLET PO SCH ×2 (07:30→12:24)
[2023-02-13] MEDS: AMOXICILLIN 500 MG CAP PO SCH ×2 (07:30→12:23)
[2023-02-13] MEDS: GABAPENTIN 300 MG CAP PO SCH ×2 (07:31→12:23)
[2023-02-13] MEDS: METOPROLOL TARTRATE 25 MG TAB PO SCH (07:32)
[2023-02-13] MEDS: TAMSULOSIN HCL 0.4 MG CAP PO SCH (07:32)
[2023-02-13] MEDS: LORATADINE 10 MG TAB PO SCH (07:32)
[2023-02-13] MEDS: OXcarbazepine 150 MG TABLET PO SCH (07:33)
[2023-02-13] MEDS: ADVANCED PROBIOTIC 1250 MG CAPSULE PO SCH (07:34)
[2023-02-13] MEDS: PENTOXIFYLLINE 400MG EXT REL TAB PO SCH (07:35)
[2023-02-13] MEDS: CHOLECALCIFEROL 1,000 UNITS 25 MCG TAB PO SCH (07:35)
[2023-02-13] MEDS: MULTIVITAMIN TAB PO SCH (07:35)
[2023-02-13] MEDS: ESCITALOPRAM OXALATE 20 MG TAB PO SCH (07:36)
[2023-02-13] MEDS: PANTOprazole 40 MG TAB PO SCH (07:37)
[2023-02-13] MEDS: MAGNESIUM OXIDE 400 MG TAB PO SCH (07:37)
[2023-02-13] MEDS: ENOXAPARIN INJ 40 MG/0.4 ML SYR SQ SCH (07:38)
[2023-02-13] MEDS: INSULIN ASPART PER UNIT CHARGE SC SCH ×2 (08:19→12:22)
[2023-02-13] MEDS: LANTUS PER UNIT CHARGE SC SCH (08:19)
[2023-02-13] MEDS: clonazePAM 0.5 MG TAB PO SCH (08:20)
[2023-02-13] MEDS: DOXYCYCLINE HYCLATE 100 MG CAP PO SCH (10:04)
[2023-02-13 10:09] LABS: BUN Creatinine Ratio 19.6 (10-20); Calcium 8.9 mg/dl (8.6-10.3); Est GFR (African American) 123.2 ml/min; Est GFR (Non-African American) 106.3 ml/min; Potassium 4.5 mmol/L (3.5-5.1)
--- NOTE | 2023-02-13 11:40 | Pharmacy Report ---
Pharmacy Glycemic Short Note 2 - Date of Service February 13, 2023 - Glycemic Short BSG Results (Last 24 hours): 02/12/23 02/12/23 02/13/23 16:28 19:40 07:36 Glucose POC Glucose 113 H 231 H 184 H 02/13/23 02/13/23 09:30 11:31 Glucose 240 H POC Glucose 113 H OUTPATIENT ANTIDIABETIC REGIMEN: * Metformin 1000 mg PO BID + Januvia 100 mg PO qAM * A1c = 7.6% ASSESSMENT: 02/13: * Fasting BSG 184 today (240 appears to be post prandial). BSG trending down from yesterday, will wait another day to assess trend before making any further basal adjustments * Post prandials adequate but continue to be somewhat labile. Will monitor and adjust as needed. 02/12 * Fasting continues to be elevated this morning, increased lantus dose to 10 units * BSG trended up yesterday, will add back loose carb ratio with lunch and dinner 02/11 * Lantus held yesterday night, Fasting this AM in mid 200s-- will give 5 units of lantus this AM * Continue with current novolog parameters, down to 101 mg/dL at lunch, carb ratio removed with lunch and dinner 02/10 * BSGs yesterday were [id number] mg/dL. Fasting this morning was 104 mg/dL * Will further loosen HS novolog to try and prevent overnight downtrend. Will al so decrease evening scale, with the intent of transitioning to qam lantus if possible. * Patient is tolerating a diet 02/09 * 66yo male with a PMH of intellectual disability due to cerebral palsy, DM2, COPD, PVD, TRINIDAD, GERD, chronic stasis dermatitis, hearing loss, osteoporosis, and valvular heart disease (mild MR/TR/Aortic Stenosis) who presented with fever and cough. Recent gastroenteritis, however physician notes indicate patient is tolerating an oral diet. * Severe hyperglycemia on admission. Patient received 31 units of Lantus + 21 units of Novolog yesterday. * Today BSGs are below goal (70, 87 mg/dL). Review of past admission data shows that patient typically requires Lantus 16 units per day. I will start with a reduced Lantus scale this evening - may consider starting 16 units daily to beatris if BSGs have recovered. PLAN FOR INPATIENT GLYCEMIC CONTROL: * Hold outpatient oral diabetes medications * Basal insulin * Lantus 10 units qAM * Bolus insulin * NovoLog per scale ACHS or Q6hrs while NPO * Goal Range: Low 120 mg/dL - High 150 mg/dL Breakfast: * Correction Factor: 35 mg/dL/unit * Nutritional / Prandial insulin per carb ratio of 1 unit per 9 grams CHO consumed Lunch/dinner/HS: * Correction Factor: 40 mg/dL/unit * Nutritional / Prandial insulin per carb ratio of 1 unit per 25 grams CHO consumed HS: * Correction Factor: 55 mg/dL/unit * Nutritional / Prandial insulin per carb ratio of 1 unit per 40 grams CHO consumed
--- NOTE | 2023-02-13 11:52 | Hospitalist Progress Note ---
Date of Service February 13, 2023 Assessment & Plan (1) Gastroenteritis: (2) Abnormal urinalysis: (3) Sepsis: (4) Hypoxia: (5) Diabetes mellitus, type 2: (6) Cerebral palsy: (7) Elevated troponin: (8) Aortic stenosis: (9) Chronic obstructive pulmonary disease: (10) Intellectual disability: (11) Pressure ulcer of coccygeal region, stage 3: Plan per Dr. Lopez's notes with addendum: This is a 66yo male with a PMH of intellectual disability due to cerebral palsy, DM2, COPD, PVD, TRINIDAD, GERD, chronic stasis dermatitis, hearing loss, osteoporosis, and valvular heart disease (mild MR/TR/Aortic Stenosis) who presents to the ED today from [facility] with fever and cough. N/V, diarrhea 2/ norovirus Presented from long term with fever and cough. C. difficile gene positive but toxin negative GI PCR panel positive for norovirus CT abd/pelvis personally reviewed; liquid stool throughout colon, nonspecific proctitis 02/13 GI symptoms resolved Tolerating diet well Complicated UTI Acute urinary retention acute urinary retention Urine culture grew E faecalis; sensitive to penicillin Changed from Zosyn to amoxicillin 1 g 3 times daily Blue placed due to repeated urinary retention on February 10. 02/13 Continue oral amoxicillin 1 g 3 times daily until February 13 Maintain Blue catheter for 1 week, trial of voiding in 1 week Acute hypoxic respiratory failure He desaturated to less than 90% in room air and was tachypneic on admission. History of frequent pneumonia in the past. CT abdomen pelvis also suggestive of consolidation. Aspiration precautions Given DuoNebs and hypertonic saline 02/12 doxycycline p.o. twice daily x 6 more days Probiotics x1 month Hypomagnesemia Repleted DM II A1c 7.6 in Oct 2022, Resume usual regimen Follow-up as an outpatient Stage 3 coccyx wound -> recently healed Has been following with wound care Turn and position q2, keep area dry Intellectual disability Resides at [facility] Wheel chair bound at baseline Continue oxcarbazepine, trazodone, risperidone Hx of SVT Continue on metoprolol HLD Continue statin PVD/PAD Chronic stasis dermatitis No signs of cellulitis. Continue pentoxifylline DVT ppx:SQ Lovenox Code status:FULL PCP:[place] Dispo:Return to long term today Follow-up with PCP in 1 week Admission and Anticipated Discharge Date Admission Date: February 08, 2023 Subjective Follow-up for gastroenteritis, etc. Seen resting in bed, sleeping but easily awakened Not in distress Feels fine overall Denies shortness of breath, abdominal pain, nausea or vomiting Appetite is good Discussed with RN, no other issues No other symptoms Patient states he is okay with discharge back to long term today Review of Systems Review of Systems: all noted and negative except for above Physical Exam Physical Exam: General- oriented x 1-2, not in distress, speaks in sentences with no effort or accessory muscle use Eyes- anicteric Neck- no JVD Lungs- clear breath sounds bilaterally, no rales/wheezes Heart- normal rate, regular rhythm; no murmurs Abdomen- normal bowel sounds, nondistended, soft, nontender Extremities- no pretibial edema, no calf tenderness Neuro- alert, oriented x 1-2; no gross focal neurologic deficits Skin- warm & dry Results & Data Results & Data Vital Signs (Past 12 Hours) Vital Signs Temp Pulse Pulse Resp BP Pulse Ox O2 Del Method 02/13/23 11:03 36.6 C 62 18 134/54 L 95 Room Air 02/13/23 08:00 79 02/13/23 02:47 36.8 C 59 L 18 124/58 L 94 Room Air all noted and reviewed including below (3) Sepsis Acute respiratory failure type: with hypoxia Sepsis acute organ dysfunction status: with acute organ dysfunction Sepsis type: sepsis due to unspecified organism Severe sepsis acute organ dysfunction type: acute respiratory failure Severe sepsis shock status: unspecified Qualified Code(s): A41.9 - Sepsis, unspecified organism; R65.20 - Severe sepsis without septic shock; J96.01 - Acute respiratory failure with hypoxia
--- NOTE | 2023-02-13 12:02 | Discharge Summary ---
Discharge Summary Date of Service February 13, 2023 Notes For Next Care Provider Please maintain Blue catheter for 1 week, then perform trial of voiding. Please repeat sodium level in 2 to 3 days. Medication Changes From Visit New medications: Amoxicillin 1 g 3 times daily x5 more days to complete 10-day course Doxycycline 1 mg p.o. twice daily x6 more days to complete 7-day course Flomax 0.4 mg daily Probiotics daily x1 month Admission HPI Per Admitting Provider This is a 66yo male with a PMH of intellectual disability due to cerebral palsy, DM2, COPD, PVD, TRINIDAD, GERD, chronic stasis dermatitis, hearing loss, osteoporosis, and valvular heart disease (mild MR/TR/Aortic Stenosis) who presents to the ED today from [facility] with fever and cough. Was reportedly hypoxic this AM and placed on NC O2 by EMS. History was obtained by chart review and patient's caregiver at bedside as pt was unable to contribute to the history due to intellectual disability. Developed nausea, vomiting and diarrhea overnight and was felt to be little bit more lethargic than usual so brought in for further evaluation. Also notably had cough, although when di scussed with care provider at bedside, this is residual from last month's pneumonia admission and not worsening. Has been admitted twice previously in 2022 for hypoxia in the setting of pneumonia. Caregiver denies any complaints of difficulty breathing from patient, although difficult to obtain reliable history from him. Appears comfortable at bedside but having multiple episodes of diarrhea. Taking medications as prescribed. At discharge from previous admission, sent out on increased magnesium dose to 400 mg twice daily, Lasix 20 daily. Is still taking a probiotic. Unable to obtain remainder of ROS due to patient's intellectual disability. Admission Exam Per Admitting Provider General Appearance:WD/WN, vitals as above, NAD, sitting up in bed, pleasant Head: normocephalic, atraumatic Eyes:normal inspection, PERRL, conjunctivae normal, anicteric sclerae ENT: external ear and nose normal, oropharynx normal Neck: normal visual inspection, trachea midline, no thyromegaly Respiratory:normal respiratory effort, decreased breath sounds but no wheeze or rhonchi Cardiovascular: tachycardic rate, regular rhythm, systolic murmur, normal peripheral pulses, trace BLE edema. Vessels: no JVD Chest: normal inspection of chest Abdomen/GI: hyperactive bowel sounds, soft, nontender, no hepatosplenomegaly Extremities/Musculoskeletal: no cyanosis or clubbing, extremities motor strength 5/5 Neurologic: PERRL, CN's II-XI intact bilaterally and moves all extremities Psychiatric:Alert and verbal although difficult to understand, at baseline with intellectual disability per care provider at baseline Skin: no rashes, normal color, warm/dry Principal Dx & Hospital Course #1 = Principal Diagnosis (1) Gastroenteritis: (2) Abnormal urinalysis: (3) Sepsis: (4) Hypoxia: (5) Diabetes mellitus, type 2: (6) Cerebral palsy: (7) Elevated troponin: (8) Aortic stenosis: (9) Chronic obstructive pulmonary disease: (10) Intellectual disability: (11) Pressure ulcer of coccygeal region, stage 3: Plan per Dr. Lopez's notes with addendum: This is a 66yo male with a PMH of intellectual disability due to cerebral palsy, DM2, COPD, PVD, TRINIDAD, GERD, chronic stasis dermatitis, hearing loss, osteoporosis, and valvular heart disease (mild MR/TR/Aortic Stenosis) who presents to the ED today from [facility] with fever and cough. N/V, diarrhea 2/2 norovirus Presented from [facility] with fever and cough. C. difficile gene positive but toxin negative GI PCR panel positive for norovirus CT abd/pelvis personally reviewed; liquid stool throughout colon, nonspecific proctitis 02/13 GI symptoms resolved Tolerating diet well Complicated UTI Acute urinary retention acute urinary retention Urine culture grew E faecalis; sensitive to penicillin Changed from Zosyn to amoxicillin 1 g 3 times daily Blue placed due to repeated urinary retention on February 10. 02/13 Continue oral amoxicillin 1 g 3 times daily x 5 more days to complete 10 day course Maintain Blue catheter for 1 week, trial of voiding in 1 week continue Tamsulosin 0.4mg po daily Acute hypoxic respiratory failure He desaturated to less than 90% in room air and was tachypneic on admission. History of frequent pneumonia in the past. CT abdomen pelvis also suggestive of consolidation. Aspiration precautions Given DuoNebs and hypertonic saline 02/12 doxycycline p.o. twice daily x 6 more days to complete 7 day course Probiotics x1 month Hepatomegaly Seen on CT abdomen pelvis Further work-up and management as an outpatient Hypomagnesemia Repleted DM II A1c 7.6 in Oct 2022, Resume usual regimen Follow-up as an outpatient Stage 3 coccyx wound -> recently healed Has been following with wound care Turn and position q2, keep area dry Intellectual disability Resides at [facility] Wheel chair bound at baseline Continue oxcarbazepine, trazodone, risperidone Hx of SVT Continue on metoprolol HLD Continue statin PVD/PAD Chronic stasis dermatitis No signs of cellulitis. Continue pentoxifylline DVT ppx:SQ Lovenox Code status:FULL PCP:Clari Dispo:Return to [facility] today Follow-up with PCP in 1 week Discharge Exam General- oriented x 1-2, not in distress, speaks in sentences with no effort or accessory muscle use Eyes- anicteric Neck- no JVD Lungs- clear breath sounds bilaterally, no rales/wheezes Heart- normal rate, regular rhythm; no murmurs Abdomen- normal bowel sounds, nondistended, soft, nontender Extremities- no pretibial edema, no calf tenderness Neuro- alert, oriented x 1-2; no gross focal neurologic deficits Skin- warm & dry Updated Medication List Medication Instructions Recorded Confirmed Type albuterol sulfate 90 mcg/actuation 2 puff inhalation Q4H PRN 12/23/18 02/08/23 History aerosol inhaler (ProAir HFA) Shortness Of Breath cholecalciferol (vitamin D3) 25 1,000 unit PO QAM 12/23/18 02/08/23 History mcg (1,000 unit) capsule (Vitamin D3) loperamide 2 mg tablet (Imodium 2 mg PO UD PRN Diarrhea 12/23/18 02/08/23 History A-D) metoclopramide HCl 5 mg tablet 5 mg PO ACHS 12/23/18 02/08/23 History (Reglan) omeprazole 20 mg tablet,delayed 20 mg PO QAM 12/23/18 02/08/23 History release simvastatin 40 mg tablet (Zocor) 40 mg PO HS 12/23/18 02/08/23 History sitagliptin phosphate 100 mg 100 mg PO QAM 12/23/18 02/08/23 History tablet (Januvia) trazodone 50 mg tablet 50 mg PO HS MOOD 12/23/18 02/08/23 History loratadine 10 mg tablet (Claritin) 10 mg PO QAM 04/03/20 02/08/23 History pentoxifylline 400 mg 400 mg PO TID 04/03/20 02/08/23 History tablet,extended release umeclidinium 62.5 mcg/actuation 1 inh inhalation QAM 03/02/21 02/08/23 History blister powder for inhalation (Incruse Ellipta) risperidone 2 mg tablet 2 mg PO TID 03/11/21 02/08/23 History aluminum-mag hydroxide-simethicone 30 ml PO QPM 11/23/21 02/08/23 History 200 mg-200 mg-20 mg/5 mL oral susp clonazepam 0.5 mg tablet 0.5 mg PO BID anxiety 11/23/21 02/08/23 History multivitamin (Daily-Shaka tablet) 1 tab PO QAM ##0 11/23/21 02/08/23 History escitalopram oxalate 20 mg tablet 20 mg PO QAM 01/03/22 02/08/23 History metformin 500 mg tablet,extended 1,000 mg PO BIDM 01/03/22 02/08/23 History release 24 hr oxcarbazepine 150 mg tablet 225 mg PO BID 04/08/22 02/08/23 History acetaminophen 325 mg tablet 650 mg PO QID PRN pain #0 tabs 05/03/22 02/08/23 Rx (Tylenol) gabapentin 300 mg capsule 300 mg PO TID 11/24/22 02/08/23 History glimepiride 1 mg tablet 1 mg PO DAILY 11/24/22 02/08/23 History metoprolol tartrate 25 mg tablet 12.5 mg PO BID #60 tabs 11/30/22 02/08/23 Rx L.acidop,casei,lactis,rham-B.lact,lakia 2 cap PO DAILY 30 days #60 caps 12/24/22 02/08/23 Rx 625 mg (10 billion cell) capsule (Advanced Probiotic) furosemide 20 mg tablet 20 mg PO DAILY #30 tabs 12/24/22 02/08/23 Rx magnesium oxide 400 mg (241.3 mg 400 mg PO BID 30 days #60 tabs 12/24/22 02/08/23 Rx magnesium) tablet polyethylene glycol 3350 17 gram 17 g PO DAILY 30 days #30 ea 12/24/22 02/08/23 Rx oral powder packet (Miralax) amoxicillin 500 mg capsule 1,000 mg PO TID 5 days #30 caps 02/13/23 Rx doxycycline hyclate 100 mg capsule 100 mg PO BID 6 days #12 caps 02/13/23 Rx tamsulosin 0.4 mg capsule 0.4 mg PO QAM 14 days #14 caps 02/13/23 Rx Hospital Stay Data Consultations 02/08/23 11:12 ED Decision to Admit Stat Diagnostic Imagining Performed 02/08/23 13:21 CT Abd and Pelvis [CT abd pelvis IV con only] Routine CT SCAN OF THE ABDOMEN AND PELVIS WITH IV CONTRAST CLINICAL HISTORY: Nausea and vomiting. Diarrhea. COMPARISON STUDY: Abdominal CT dated 12/21/2022. TECHNIQUE: Following the IV administration of 88 cc of Optiray 350, CT scan of the abdomen and pelvis is performed from the lung bases to the proximal femora. Images are reviewed in the axial, sagittal, and coronal planes. IV contrast was administered without complication. A dose lowering technique was utilized adhering to the principles of ALARA. The examination is compromised by motion artifact. CT DOSE: 294.45 mGy.cm FINDINGS: Lung bases: The heart is enlarged and without pericardial effusion. The aortic valve leaflets and mitral annulus are densely calcified. Airspace consolidation is seen at both lung bases. No pleural effusion is identified. A small hiatal hernia is noted. Liver: The contrast-enhanced liver is enlarged, measuring 21.7 cm in length. The liver is otherwise normal in contour and attenuation. There is no intrahepatic biliary ductal dilatation. The hepatic veins and portal veins are patent. Periportal edema is noted. Gallbladder: Surgically absent noting clips in the gallbladder fossa. Spleen: Normal in size and attenuation. Pancreas: Unremarkable. Adrenal glands: Unremarkable. Kidneys: The contrast enhanced kidneys demonstrate mild cortical atrophy and/or without hydronephrosis. The kidneys enhance symmetrically. Abdominal vasculature: The abdominal aorta is normal in course and caliber noting mild to moderate atherosclerotic calcification. A suprarenal IVC filter is in place. Bowel: The rectal wall is thickened and hyperemic with mild surrounding infiltration. Liquid stool is seen throughout the colon. No bowel obstruction is seen. The appendix is not visualized. There is a small duodenal diverticulum. Peritoneum: There is no intraperitoneal free air or abdominal ascites. Lymphadenopathy: None. Pelvic viscera: The bladder wall is circumferentially thickened and appears hyperemic. The prostate gland is diminutive and heterogeneous. Skeletal structures: The skeletal structures are osteopenic. No lytic or blastic lesions are seen. There is chronic posterior neck deformity of both pubic rings and the sacrum. There are chronic compression deformities of T11, T12, and L1. [id number] lumbosacral spondylosis is observed. There are numerous chronic/healed bilateral rib fractures. IMPRESSION: 1. There is evidence of a nonspecific proctitis. Correlate clinically. 2. Liquid stool is seen throughout the colon. Correlate for evidence of a diarrheal illness. 3. The bladder wall is thickened and hyperemic. Correlate with clinical findings and urinalysis. 4. Mild patchy airspace consolidation is seen at both lung bases. Correlate clinically for evidence of an infectious/inflammatory pneumonitis. 5. Mild cardiomegaly. 6. Hepatomegaly. 7. Additional findings as above. ACT 112: Negative or not required by law. Pending Results Patient Have Any Pending Studies at Discharge: No Discharge Instructions Given to Patient (Per Discharging Provider) PLEASE REFER TO YOUR NEW MEDICATION LIST AND FOLLOW INSTRUCTIONS CAREFULLY. YOUR NEW MEDICATIONS INCLUDE: Amoxicillin-antibiotic for urinary tract infection Doxycycline-antibiotic for possible pneumonia Tamsulosin-for urinary retention Please provide patient with probiotics x1 month. Trial of voiding in 1 week. PLEASE CALL YOUR PRIMARY CARE PHYSICIAN OR RETURN TO THE ER IF WITH WORSENING OF SYMPTOMS, INCLUDING Fever/chills, abdominal pain, nausea vomiting, cough, sputum production, shortness of breath, etc. FOLLOW UP WITH PRIMARY CARE PHYSICIAN OUTLINED ABOVE. Total Time Total Time Spent Total Time Spent (In Minutes): > 30 minutes
== END 2023-02-13 14:31 | disposition home or self-care (01) | DRG 871 ==
LOC: ED 09:34 → SUATTDRO 11:32 → 2E 11:32

== ENCOUNTER 2023-09-15 21:42 | Inpatient (IN) ==
[2023-09-15] MEDS ORDERED: SODIUM CHLORIDE 0.9% 1,000 ML IV STA (22:22)
--- NOTE | 2023-09-15 22:33 | Emergency Department Note ---
Impression & Plan Nausea vomiting and diarrhea ADMIT ED Provider Note HPI: History obtained from patient's arch support maker at bedside. The patient is a 68-year-old gentleman with history of cerebral palsy, paroxysmal atrial fibrillation, aortic stenosis, type 2 diabetes, COPD, intellectual disability, presents emergency department with an episode of vomiting and diarrhea today. Patient has a arch support maker member at the bedside, states that the patient does live in a group facility and tonight when she was with him he had an episode of yellowish colored vomit and a large bowel movement that was loose in nature. Patient has also been belching fairly consistently. Patient is able to communicate with simple words and seem to at some point point to his chest and indicate he was having some pain. On arrival here to the ED the patient is alert, he is hemodynamically stable on arrival. He is unable to provide me with any history. ROS: - Per HPI Differential Diagnosis: Small bowel obstruction, viral gastroenteritis, C. difficile colitis, acute coronary syndrome, diverticulitis flare, acute cholecystitis, acute pancreatitis, amongst other potential pathologies. *Outpatient medications and allergy history reviewed. *Pertinent external medical records reviewed - PE: General: Alert HEENT: Normocephalic, trachea midline Eyes: Extraocular eye movement is intact, no scleral erythema Pulmonary: Clear to auscultation bilaterally, no wheezing Cardio: Regular rate and rhythm GI: Abdomen is distended, slightly tender to palpation diffusely : No suprapubic tenderness MSK: No evidence of trauma or malformation of the extremities, no edema Skin: No evidence of rash Neuro: Alert, no focal deficits Psychiatric: Cooperative INDEPENDENT INTERPRETATIONS: surveillance monitor: (As interpreted by myself): - An order was placed for continuous cardiac monitoring - Patient was noted to be in sinus rhythm with a rate of 75 EKG: (As interpreted by myself): Rate: 83 Rhythm: Sinus rhythm Intervals: Within normal limits ST changes: No ST elevation Time: 2218 Interventions provided in ED: -IV fluid bolus, IV Zofran Medical Decision Making: IV was established and lab work obtained, patient was placed on copper etcher. Lab work shows no leukocytosis, hemoglobin is stable at 11.4, platelet count is slightly low at 128, CMP shows mild hyponatremia 134, potassium is normal, serum bicarbonate level is normal, no evidence of acute kidney injury, no transaminitis. Troponin is negative. EKG shows sinus rhythm without any acute ischemic changes per my interpretation. Lipase is slightly elevated at 144. CT imaging of the abdomen pelvis was obtained that shows large distended loops of bowel without obvious transition point, concerning for possible ileus versus small bowel obstruction. Given patient's exam and these findings on CT imaging I do suspect he has likely ileus or small bowel obstruction. He has not been actively vomiting since receiving IV fluids and Zofran here, he has had significant diarrhea however stool testing and C. difficile testing are both negative for pathogens. Urinalysis does not show any evidence of infection. Given the patient's symptoms, he will be admitted for observation and further management of her concern for possible small bowel obstruction. Will defer NG tube at this time as the patient has not been vomiting and this will be difficult placement with his intellectual disability and he is at high risk for removing the tube on his own. I did discuss the patient's CT imaging findings with on-call general surgery, Dr. Doty, he is in agreement for consultation and recommends admission to the medicine service. Patient was placed to admission to the medicine service following my discussion with the on-call hospitalist, Dr. Cohen. I did discuss all these findings with the patient's support provider from his group facility and they expressed agreement understanding. Patient was placed for admission in stable condition. Consultants/Discussions held with other healthcare providers: -General surgery, Dr. Doty -Hospitalist, Dr. Cohen Disposition discussion held by myself with: -Patient and arch support maker at bedside Diagnosis: 1. Small bowel obstruction, acute 2. Diarrhea, acute 3. Nausea and vomiting, acute 4. Hyponatremia, acute, mild Disposition: Admission Aditya Andujar DO Emergency Medicine Past Med/Surg History Medical History Anxiety Aortic stenosis Mild per 09/2021 ECHO Asthma CAP (community acquired pneumonia) Cerebral palsy Chronic obstructive pulmonary disease Well controlled > hasnt used res inh for 2 yrs COPD (chronic obstructive pulmonary disease) Depression Diabetes mellitus, type 2 Diabetes mellitus, type II DJD (degenerative joint disease) Elevated troponin Femoral condyle fracture GERD (gastroesophageal reflux disease) GERD (gastroesophageal reflux disease) History of COVID-19 Tested positive 09/21/21 [facility] ([facility] Sinus congestion only. no hospitalization. No current problems. Hospital-acquired pneumonia Hyperglycemia Hyperlipidemia Hypotension Intellectual disability Lives at Skills facility Neck pain Neuropathy TRINIDAD (obstructive sleep apnea) TRINIDAD (obstructive sleep apnea) Per records Osteoporosis Peroneal palsy Pica Pneumonia Presence of IVC filter Placed in 1997 per records PVD (peripheral vascular disease) Scoliosis Severe sepsis Tibia fracture TMJ (temporomandibular joint disorder) Venous insufficiency Surgical History History of cholecystectomy History of colonoscopy History of tooth extraction S/P cataract surgery Left and Right Family History Father Coronary heart disease Social History Smoking Status: Never smoker packs per day: 30; Second Hand Exposure: No; Do You Dip or Chew Tobacco: No; Hx Alcohol Use: No Hx Substance Use: No Preferred Language: Polish Communication Ability: Effective Communication Ability Comment: LIVES AT [facility] Communication Tools: Other Visual Impairment: No Limitations Hearing Ability: Use of Hearing Aid Apartment Property Manager Required: No Beliefs That Will Affect Care: None marital status: Single marital status details: [facility] Current Living Situation: Personal Care Facility Current Living Situation Comment: SNF current occupational status: disabled How many Children do You have: 0 Feels Safe at Home: Yes Diet: diabetic caffeine: No Assistive Devices: Hospital Bed, Mechanical Lift and Wheelchair Allergies Allergies Allergy/AdvReac Type Severity Reaction Status Date / Time lactose Allergy Intermediate GI SYMPTOMS Verified 09/16/23 03:01 aspirin Allergy Unknown UNKNOWN Verified 09/16/23 03:01 REACTION cephalexin Allergy Unknown UNKNOWN Verified 09/16/23 03:01 REACTION Cephalosporins Allergy Unknown UNKNOWN Verified 09/16/23 03:01 REACTION Corticosteroids Allergy Unknown UNKNOWN Verified 09/16/23 03:01 (Glucocorticoids) REACTION methylprednisolone Allergy Unknown UNKNOWN Verified 09/16/23 03:01 REACTION shellfish derived Allergy Unknown UNKNOWN Verified 09/16/23 03:01 REACTION Home Meds Home Medications Medication Instructions Recorded Confirmed Lactobacillus rhamnosus GG 15 2 cap PO DAILY 09/16/23 09/16/23 billion cell sprinkle capsule (Culturelle) acetaminophen 325 mg tablet 650 mg PO Q4 PRN Fever 09/16/23 09/16/23 (Tylenol) acetaminophen 650 mg 1,300 mg PO AMHS 09/16/23 09/16/23 tablet,extended release albuterol sulfate 90 mcg/actuation 2 puff inhalation Q4 PRN Shortness 09/16/23 09/16/23 aerosol inhaler Of Breath Or Wheezing bismuth subsalicylate 262 mg 1 tab PO Q12 PRN .UPSET STOMACH 09/16/23 09/16/23 chewable tablet (Pepto-Bismol) carboxymethylcellulose sodium 0.5 1 drp OPB BID 09/16/23 09/16/23 % eye drops (Refresh Tears) cholecalciferol (vitamin D3) 25 25 mcg PO QAM 09/16/23 09/16/23 mcg (1,000 unit) capsule (Vitamin D3) clonazepam 0.5 mg tablet 0.5 mg PO TID 09/16/23 09/16/23 diphenhydramine HCl 12.5 mg 12.5 mg PO BID PRN Itching 09/16/23 09/16/23 chewable tablet dulaglutide 3 mg/0.5 mL 3 mg subcut .WEEKLY 09/16/23 09/16/23 subcutaneous pen injector (Trulicity) finasteride 5 mg tablet 5 mg PO QAM 09/16/23 09/16/23 food supplemt, lactose-reduced 1 ea PO BID 09/16/23 09/16/23 furosemide 20 mg tablet 20 mg PO DAILY 09/16/23 09/16/23 gabapentin 300 mg capsule 300 mg PO TID 09/16/23 09/16/23 glimepiride 1 mg tablet 1 mg PO DAILY 09/16/23 09/16/23 guaifenesin 100 mg/5 mL oral liquid 200 mg PO TID PRN Cough 09/16/23 09/16/23 guaifenesin 600 mg tablet, 600 mg PO Q12H 09/16/23 09/16/23 extended release 12 hr (Mucinex) loperamide 2 mg capsule (Imodium 2 mg PO TID PRN Diarrhea 09/16/23 09/16/23 A-D) loratadine 10 mg tablet 10 mg PO DAILY 09/16/23 09/16/23 magnesium oxide 400 mg PO BID 09/16/23 09/16/23 metformin 1,000 mg tablet 1,000 mg PO BID 09/16/23 09/16/23 metoprolol tartrate 25 mg tablet 12.5 mg PO BID 09/16/23 09/16/23 multivitamin 1 tab PO DAILY 09/16/23 09/16/23 neomycin-bacitracn Zn-polymyxn 3.5 1 applic topical DIRECTED WOUND 09/16/23 09/16/23 mg-400 unit-5,000 unit top oint CARE pkt (Neosporin(cpi-qvp-weckb)) oxcarbazepine 300 mg tablet 300 mg PO BID 09/16/23 09/16/23 pentoxifylline 400 mg 400 mg PO TID 09/16/23 09/16/23 tablet,extended release polyethylene glycol 3350 17 gram 17 g PO DIRECTED PRN 09/16/23 09/16/23 oral powder packet (Miralax) Constipation quetiapine 100 mg tablet 100 mg PO TID 09/16/23 09/16/23 sertraline 50 mg tablet 50 mg PO DAILY 09/16/23 09/16/23 simvastatin 40 mg tablet 40 mg PO QPM 09/16/23 09/16/23 tamsulosin 0.4 mg capsule 0.4 mg PO DAILY 09/16/23 09/16/23 trazodone 50 mg tablet 50 mg PO HS 09/16/23 09/16/23 umeclidinium 62.5 mcg/actuation 1 inh inhalation DAILY 09/16/23 09/16/23 blister powder for inhalation (Incruse Ellipta) Results & Data (ED) Vital Signs Vital Signs - 24 hr 09/15/23 21:38 09/15/23 21:55 09/15/23 22:44 Temperature 36.8 C Temperature Source Oral Pulse Rate 89 89 78 Pulse Rhythm Regular Respiratory Rate 19 18 Blood Pressure 105/68 Blood Pressure Mean 80 Pulse Oximetry 92 94 Oxygen Delivery Method Room Air Room Air Oxygen Flow Rate Sepsis Recent Fever Within 48 Hours No Sepsis New/Unexplained Change in Mental Status N/A Sepsis Action Taken by Nursing No Action Required 09/15/23 22:45 09/16/23 01:54 Temperature Temperature Source Pulse Rate 78 Pulse Rhythm Respiratory Rate Blood Pressure Blood Pressure Mean Pulse Oximetry 94 Oxygen Delivery Method Room Air Oxygen Flow Rate 0 Sepsis Recent Fever Within 48 Hours Sepsis New/Unexplained Change in Mental Status Sepsis Action Taken by Nursing Laboratory Data 09/16/23 08:11 09/16/23 08:11 Lab Results 09/15/23 09/15/2323 Range/Units 22:00 22:38 Unknown WBC 5.37 (4.8-10.8) K/ul RBC 3.44 L (4.70-6.10) M/uL Hgb 11.4 L (14.0-18.0) g/dl Hct 35.7 L (42.0-52.0) % MCV 103.8 H (80.0-100.0) fL MCH 33.1 (25.0-34.0) pg MCHC 31.9 L (32.0-36.0) g/dL RDW Std Deviation 49.4 H (36.4-46.3) fL RDW Coeff of Drew 13.1 (11.5-14.5) % Plt Count 128 L (130-400) K/uL MPV 11.6 (9.4-12.4) fL Immature Gran % (Auto) 0.2 % Neut % (Auto) 63.6 % Lymph % (Auto) 25.9 % [place] % (Auto) 8.6 % Eos % (Auto) 1.1 % Baso % (Auto) 0.6 % Neut # (Auto) 3.42 (1.40-6.50) K/uL Lymph # (Auto) 1.39 (1.20-3.40) K/uL [place] # (Auto) 0.46 (0.11-0.59) K/uL Eos # (Auto) 0.06 (0.00-0.50) K/uL Baso # (Auto) 0.03 (0.00-0.20) K/uL Immature Gran # (Auto) 0.01 (0.01-0.20) K/uL PT 9.8 (9.0-12.0) Seconds INR 0.9 (0.9-1.1) Sodium 134 L (136-145) mmol/L Potassium 4.3 (3.5-5.1) mmol/L Chloride 101 (98-107) mmol/L Carbon Dioxide 24 (21-32) mmol/L Anion Gap 9 (3-11) BUN 32 H (6-23) mg/dl Creatinine 0.69 (0.6-1.4) mg/dl Est Cr Clr Drug Dosing 94.3 ml/min Est GFR ( Amer) 112.3 ml/min Est GFR (Non-Af Amer) 96.9 ml/min BUN/Creatinine Ratio 46.4 H (10-20) Glucose 264 H (70-99(Fasting)) mg/dl Calcium 9.6 (8.6-10.3) mg/dl Magnesium 1.2 L (1.7-2.4) mg/dl Total Bilirubin 0.3 (0.2-1.0) mg/dl AST 22 (13-39) U/L ALT 20 (7-52) U/L Alkaline Phosphatase 98 (34-104) U/L Troponin I High Sens 8.7 (0-20) pg/ml Total Protein 6.5 (6.0-8.3) gm/dl Albumin 3.7 (3.4-5.0) gm/dl Globulin 2.8 (2.5-4.0) gm/dl Albumin/Globulin Ratio 1.3 (0.9-2) Lipase 144 H (11-82) U/L Urine Color Yellow Urine Appearance Clear (Clear) Urine pH 6.5 (4.5-7.5) Ur Specific [place] 1.020 (1.000-1.030) Urine Protein Negative (Negative) Urine Glucose (UA) Negative (Negative) Urine Ketones Negative (Negative) Urine Blood Negative (Negative) Urine Nitrite Negative (Negative) Urine Bilirubin Negative (Negative) Urine Urobilinogen Negative (Negative) Ur Leukocyte Esterase Negative (Negative) Stl C. cayetanensis PCR Not Detected (NotDetected) Stool Rotavirus A PCR Not Detected (NotDetected) Stl Adenov F 40/41 PCR Not Detected (NotDetected) Stool Astrovirus (PCR) Not Detected (NotDetected) Stool Campylobacter PCR Not Detected (NotDetected) Stl C. diff Tox B Gene Negative Cdiff Gene (Neg) Stool Cryptosporidium PCR Not Detected (NotDetected) Stl E.coli Shiga Tox PCR Not Detected (NotDetected) Stl Enterotoxigenic E PCR Not Detected (NotDetected) Stool EPEC (PCR) Not Detected (NotDetected) Stool EAEC (PCR) Not Detected (NotDetected) Stl E. histolytica PCR Not Detected (NotDetected) Stool Giardia Lamblia PCR Not Detected (NotDetected) Stool Salmonella PCR Not Detected (NotDetected) Stool Sapovirus (PCR) Not Detected (NotDetected) Stl P. shigelloides PCR Not Detected (NotDetected) Stl Shigella/EIEC PCR Not Detected (NotDetected) St Y.enterocolitica PCR Not Detected (NotDetected) Stool Vibrio (PCR) Not Detected (NotDetected) Stl Vibrio cholerae PCR Not Detected (NotDetected) Stl Norovirus GI/GII PCR Not Detected (NotDetected) Administered Medications Clonazepam (Clonazepam 0.5 Mg Tab) 0.5 mg PO TID@0800,1600,2000 [facility] Stop: 10/16/23 07:59 Last Admin: 09/16/23 07:25 Dose: 0.5 mg Documented By: FARRAH Promethazine HCl 6.25 mg/ (Sodium Chloride) 50.25 mls @ 201 mls/hr IV Q6H PRN PRN Reason: Nausea And Vomiting Stop: 10/16/23 02:56 Last Admin: 09/16/23 06:42 Dose: 201 mls/hr Documented By: Sodium Chloride (Nss) 1,000 mls @ 75 mls/hr IV .[id number] ONE Stop: 09/16/23 16:18 Last Admin: 09/16/23 03:40 Dose: 75 mls/hr Documented By: Insulin Aspart (Insulin Aspart Per Unit Charge) 0 units SC Q6 SEN Stop: 10/16/23 05:59 Last Admin: 09/16/23 08:00 Dose: Not Given Documented By: FARRAH Discontinued Medications Sodium Chloride (Nss) 1,000 mls @ 999 mls/hr IV .Q1H1M STA Stop: 09/15/23 23:22 Last Infusion: 09/16/23 03:01 Dose: Infused Documented By: Admin: 09/16/23 01:25 Dose: 999 mls/hr Documented By: ACC Sodium Chloride (Nss) 1,000 mls @ 999 mls/hr IV .Q1H1M ONE Stop: 09/16/23 03:00 Last Admin: 09/16/23 03:20 Dose: Not Given Documented By: Famotidine (Pepcid 20mg Iv Push) 20 mg in 5 mls @ 2.5 mls/min IV NOW STA Stop: 09/16/23 02:46 Last Admin: 09/16/23 03:39 Dose: 2.5 mls/min Documented By: Acetaminophen (Ofirmev) 1,000 mg in 100 mls @ 400 mls/hr IV NOW STA Stop: 09/16/23 03:00 Last Infusion: 09/16/23 04:23 Dose: Infused Documented By: Admin: 09/16/23 03:39 Dose: 400 mls/hr Documented By: Magnesium Sulfate/Dextrose (Magnesium Sulfate / D5w) 1 gm in 100 mls @ 50 mls/hr IV Q2H SEN Stop: 09/16/23 08:59 Last Admin: 09/16/23 07:55 Dose: 50 mls/hr Documented By: Infusion: 09/16/23 07:55 Dose: Infused Documented By: Admin: 09/16/23 06:04 Dose: 50 mls/hr Documented By: Infusion: 09/16/23 06:04 Dose: Infused Documented By: Admin: 09/16/23 03:39 Dose: 50 mls/hr Documented By: Insulin Aspart (Insulin Aspart Per Unit Charge) 0 units SC Q6 SEN Stop: 10/16/23 02:59 Last Admin: 09/16/23 04:37 Dose: Not Given Documented By: Co-signed By: TIMMY Insulin Glargine (Lantus Per Unit Charge) 5 units SQ NOW STA Stop: 09/16/23 02:58 Last Admin: 09/16/23 04:37 Dose: Not Given Documented By: Ondansetron HCl (Ondansetron Inj 2 Mg/Ml 2 Ml Vial) 4 mg IV NOW STA Stop: 09/16/23 02:10 Last Admin: 09/16/23 03:39 Dose: 4 mg Documented By: Imaging Data Radiologist's Impression: Abdomen/Pelvis CT 09/15/23 22:29 Exam(s): CT ABDOMEN + PELVIS Without Contrast EXAM: CT Abdomen and Pelvis Without Intravenous Contrast CLINICAL HISTORY: Reason for exam: N/V, eval for SBO, contrast allx. TECHNIQUE: Axial computed tomography images of the abdomen and pelvis without intravenous contrast. Automated exposure control was utilized for the study. A dose lowering technique was utilized adhering to the principles of ALARA. COMPARISON: 12/21/2022. FINDINGS: Lung bases: Bilateral lower lobe consolidation suggestive of atelectasis versus infiltrate. Heart: Unremarkable. No cardiomegaly. No significant pericardial effusion. Normal cardiac size with coronary artery calcifications. ABDOMEN: Liver: Unremarkable. Gallbladder and bile ducts: Status post cholecystectomy with biliary distention. No ductal dilation. Pancreas: Suboptimally seen pancreatic head. No ductal dilation. Spleen: Unremarkable. No splenomegaly. Adrenals: Unremarkable. No mass. Kidneys and ureters: Unremarkable. No obstructing stones. No hydronephrosis. Stomach and bowel: Nonspecific distention of the small bowel and stomach reaching approximately 4.6 cm suggestive of small bowel ileus versus small bowel obstruction with indeterminate zone of transition. There is mild distention of the right colon with air-fluid level. There is fluid within the descending. No mucosal thickening. PELVIS: Appendix: No findings to suggest acute appendicitis. Bladder: Unremarkable. No stones. Reproductive: Unremarkable as visualized. ABDOMEN and PELVIS: Intraperitoneal space: Unremarkable. No free air. No significant fluid collection. Bones/joints: Multilevel degenerative disease of the spine with scoliosis. Sacral level fractures involving the bilateral superior and inferior pubic. Decrease in vertebral body heights are well done lower thoracic spine and L1, likely sequela of compression fractures, exact age indeterminate and likely old given morphology. There is a good level fractures involving the bilateral ribs. Soft tissues: High density at the level of the left buttock, just lateral to the left greater trochanter suggestive of small hematoma measuring 3.6 x 2.3 cm. Vasculature: IVC filter in place. Tortuosity of aorta with no aneurysm. Calcified atherosclerotic disease of bilateral iliac arteries with no aneurysm. Lymph nodes: Unremarkable. No enlarged lymph nodes. IMPRESSION: 1. Diffuse distention of the small bowel and stomach with air-fluid levels suggestive of ileus versus enteritis. Due to distention of the right colon with fluid within the lumen and presence of fluid within the descending colon, differential diagnosis includes ileus with small bowel obstruction of indeterminate zone of transition less likely but not entirely excluded. 2. Clinical correlation recommended and follow-up with 2 views of the abdomen recommended for further evaluation to evaluate progression. Electronically signed by: Mireya Mccollum MD 09/16/23 01:55 AM Discharge Plan Visit Data Chief Complaint: Cardiac Assessment Stated Complaint: CHEST PAIN, VOMITING ED Provider: Aditya Andujar Discharge Problem: Nausea vomiting and diarrhea Patient Disposition: Admitted As Inpatient Discharge Instructions Interventions: ED Discharge Assessment Last Done: 09/16/23 04:13
[2023-09-15 22:43] LABS: Basophils # (auto) 0.03 K/uL (0.00-0.20); Basophils % (auto) 0.6 %; Eosinophils # (auto) 0.06 K/uL (0.00-0.50); Eosinophils % (auto) 1.1 %; Hematocrit (blood only) 35.7 % (42.0-52.0); Hemoglobin 11.4 g/dl (14.0-18.0); Immature Granulocytes # (auto) 0.01 K/uL (0.01-0.20); Immature Granulocytes % (auto) 0.2 %; Lymphocytes # (auto) 1.39 K/uL (1.20-3.40); Lymphocytes % (auto) 25.9 %; Mean Corpuscular Hemoglobin 33.1 pg (25.0-34.0); Mean Corpuscular Hgb Conc 31.9 g/dL (32.0-36.0); Mean Corpuscular Volume 103.8 fL (80.0-100.0); Mean Platelet Volume 11.6 fL (9.4-12.4); Monocytes # (auto) 0.46 K/uL (0.11-0.59); Monocytes % (auto) 8.6 %; Neutrophils # (auto) 3.42 K/uL (1.40-6.50); Neutrophils % (auto) 63.6 %; Platelet Count 128 K/uL (130-400); RDW Coefficient of Variation 13.1 % (11.5-14.5); RDW Standard Deviation 49.4 fL (36.4-46.3); Red Blood Count 3.44 M/uL (4.70-6.10); White Blood Count 5.37 K/ul (4.8-10.8)
[2023-09-15 22:58] LABS: Albumin Globulin Ratio 1.3 (0.9-2); Albumin Level 3.7 gm/dl (3.4-5.0); BUN Creatinine Ratio 46.4 (10-20); Bilirubin,Total 0.3 mg/dl (0.2-1.0); Calcium 9.6 mg/dl (8.6-10.3); Creatinine Clr Calc Pharmacy 94.3 ml/min; Est GFR (African American) 112.3 ml/min; Est GFR (Non-African American) 96.9 ml/min; Globulin 2.8 gm/dl (2.5-4.0); Potassium 4.3 mmol/L (3.5-5.1); Total Protein 6.5 gm/dl (6.0-8.3)
[2023-09-15 23:05] LABS: Troponin I High Sensitivity 8.7 pg/ml (0-20)
[2023-09-15 23:18] LABS: INR 0.9 (0.9-1.1); Prothrombin Time 9.8 Seconds (9.0-12.0)
--- NOTE | 2023-09-16 01:56 | CT Scan Report ---
Exam(s): CT ABDOMEN + PELVIS Without Contrast EXAM: CT Abdomen and Pelvis Without Intravenous Contrast CLINICAL HISTORY: Reason for exam: N/V, eval for SBO, contrast allx. TECHNIQUE: Axial computed tomography images of the abdomen and pelvis without intravenous contrast. Automated exposure control was utilized for the study. A dose lowering technique was utilized adhering to the principles of ALARA. COMPARISON: 12/21/2022. FINDINGS: Lung bases: Bilateral lower lobe consolidation suggestive of atelectasis versus infiltrate. Heart: Unremarkable. No cardiomegaly. No significant pericardial effusion. Normal cardiac size with coronary artery calcifications. ABDOMEN: Liver: Unremarkable. Gallbladder and bile ducts: Status post cholecystectomy with biliary distention. No ductal dilation. Pancreas: Suboptimally seen pancreatic head. No ductal dilation. Spleen: Unremarkable. No splenomegaly. Adrenals: Unremarkable. No mass. Kidneys and ureters: Unremarkable. No obstructing stones. No hydronephrosis. Stomach and bowel: Nonspecific distention of the small bowel and stomach reaching approximately 4.6 cm suggestive of small bowel ileus versus small bowel obstruction with indeterminate zone of transition. There is mild distention of the right colon with air-fluid level. There is fluid within the descending. No mucosal thickening. PELVIS: Appendix: No findings to suggest acute appendicitis. Bladder: Unremarkable. No stones. Reproductive: Unremarkable as visualized. ABDOMEN and PELVIS: Intraperitoneal space: Unremarkable. No free air. No significant fluid collection. Bones/joints: Multilevel degenerative disease of the spine with scoliosis. Sacral level fractures involving the bilateral superior and inferior pubic. Decrease in vertebral body heights are well done lower thoracic spine and L1, likely sequela of compression fractures, exact age indeterminate and likely old given morphology. There is a good level fractures involving the bilateral ribs. Soft tissues: High density at the level of the left buttock, just lateral to the left greater trochanter suggestive of small hematoma measuring 3.6 x 2.3 cm. Vasculature: IVC filter in place. Tortuosity of aorta with no aneurysm. Calcified atherosclerotic disease of bilateral iliac arteries with no aneurysm. Lymph nodes: Unremarkable. No enlarged lymph nodes. IMPRESSION: 1. Diffuse distention of the small bowel and stomach with air-fluid levels suggestive of ileus versus enteritis. Due to distention of the right colon with fluid within the lumen and presence of fluid within the descending colon, differential diagnosis includes ileus with small bowel obstruction of indeterminate zone of transition less likely but not entirely excluded. 2. Clinical correlation recommended and follow-up with 2 views of the abdomen recommended for further evaluation to evaluate progression. Electronically signed by: Mireya Mccollum MD 09/16/23 01:55 AM
[2023-09-16] MEDS ORDERED: SODIUM CHLORIDE 0.9% 1,000 ML IV ONE ×2 (02:00→02:59)
[2023-09-16 02:08] LABS: Adenovirus F 40/41 PCR Not Detected (NotDetected); Astrovirus PCR Not Detected (NotDetected); Campylobacter PCR Not Detected (NotDetected); Cryptosporidium PCR Not Detected (NotDetected); Cyclospora cayetanensis PCR Not Detected (NotDetected); Entamoeba histolytica PCR Not Detected (NotDetected); Enteroaggregative E.coli(EAEC) Not Detected (NotDetected); Enteropathogenic E.coli (EPEC) Not Detected (NotDetected); Enterotoxigenic E.coli (ETEC) Not Detected (NotDetected); Giardia lamblia PCR Not Detected (NotDetected); Norovirus GI/GII PCR Not Detected (NotDetected); Plesiomonas shigelloides PCR Not Detected (NotDetected); Rotavirus A PCR Not Detected (NotDetected); Salmonella PCR Not Detected (NotDetected); Sapovirus PCR Not Detected (NotDetected); Shiga-like Toxin E.coli (STEC) Not Detected (NotDetected); Shigella/Enteroinvasive E.coli Not Detected (NotDetected); Vibrio cholerae PCR Not Detected (NotDetected); Vibrio species PCR Not Detected (NotDetected); Yersinia enterocolitica PCR Not Detected (NotDetected)
[2023-09-16] MEDS ORDERED: ONDANSETRON INJ 2 MG/ML 2 ML VIAL IV STA (02:09)
[2023-09-16 02:42] LABS: Magnesium 1.2 mg/dl (1.7-2.4)
[2023-09-16] MEDS ORDERED: FAMOTIDINE 20MG IV PUSH 20 MG/5 ML SYR IV STA (02:45)
[2023-09-16] MEDS ORDERED: ACETAMINOPHEN 1,000 MG/100 ML VIAL IV STA (02:46)
--- NOTE | 2023-09-16 02:48 | History & Physical Report ---
Date of Service September 16, 2023 Assessment & Plan (1) Hypomagnesemia: Plan: Secondary to GI illness SBO versus ileus secondary to gastroenteritis rule out C. difficile chronic diastolic heart failure (EF 60-65%, TTE 2022), patient on dry side PAF not on anticoagulation due to fall risk, patient NSR mild PVD on Pentoxifylline hypertension, BP on the lower side hyperlipidemia, on statin Rx COPD, stable lung status currently DM 2 on oral medications, suboptimal control as of recent hemoglobin A1c of 8 last April 2023 hyperprolactinemia attributed to antipsychotic medications as per [facility] Endocrinology note hx cerebral palsy/Klinefelter syndrome, intellectual disability as per records Possible hematoma left buttock on CT read, unclear if patient had recent trauma, hemoglobin currently at baseline chronic thrombocytopenia Past tobacco abuse Medical telemetry Replace magnesium Bowel rest for now General surgery consult Re: Possible SBO (ER provider already in touch with Dr. Doty.) Stool C. difficile IVF Basal bolus insulin adjusted for n.p.o. status, ISS BG goal 1 10-1 40 Follow H&H, hold pentoxifylline for now given left buttock hematoma on initial CT, resume if hemoglobin stable DVT prophylaxis. SCDs Re: Thrombocytopenia, hematoma DNR as per patient prior directives as per discussion with patient guardian/caregiver Ms. Gracia Nichols. She requests updates from providers through [phone]. Text document was generated using [employer] voice recognition software. It may contain grammatical or spelling errors. Kindly contact undersigned for clarification of any documentation item in question. History of Present Illness Chief Complaint: Abdominal pain Primary Care Provider: Andrew Montague MD History obtained from patient, caregiver, and records. Limited history from patient secondary to intellectual impairment. Medical history significant for chronic diastolic heart failure (EF 60-65%, TTE 2022), PAF not on anticoagulation due to fall risk, PSVT, mild , PVD on pentoxifylline, hypertension, hyperlipidemia, COPD, TRINIDAD, DM 2 on oral medicati ons, hyperprolactinemia, cerebral palsy, chronic anemia (baseline hemoglobin of 10), chronic thrombocytopenia, mood disorder, Klinefelter syndrome, intellectual disability, past tobacco abuse. Last confinement January 2023 for gastroenteritis and Enterococcus UTI status post amoxicillin Rx. Patient had sudden onset of abdominal pain going to the chest with diarrhea symptoms yesterday. No bleeding. Patient felt short of breath. Denies cough symptoms or headache symptoms. Patient brought to the ER for evaluation by caregiver. Medical History as above Surgical History : Cataract surgeries, IVC filter placement, cholecystectomy, kidney stone procedures Family History : Heart disease Personal/Social history : Past tobacco abuse, no EtOH intake, [facility] resident Allergies Allergy/AdvReac Type Severity Reaction Status Date / Time lactose Allergy Intermediate GI SYMPTOMS Verified 09/16/23 03:01 aspirin Allergy Unknown UNKNOWN Verified 09/16/23 03:01 REACTION cephalexin Allergy Unknown UNKNOWN Verified 09/16/23 03:01 REACTION Cephalosporins Allergy Unknown UNKNOWN Verified 09/16/23 03:01 REACTION Corticosteroids Allergy Unknown UNKNOWN Verified 09/16/23 03:01 (Glucocorticoids) REACTION methylprednisolone Allergy Unknown UNKNOWN Verified 09/16/23 03:01 REACTION shellfish derived Allergy Unknown UNKNOWN Verified 09/16/23 03:01 REACTION Home Medications Medication Instructions Recorded Confirmed Type Lactobacillus rhamnosus GG 15 2 cap PO DAILY 09/16/23 09/16/23 History billion cell sprinkle capsule (Culturelle) acetaminophen 325 mg tablet 650 mg PO Q4 PRN Fever 09/16/23 09/16/23 History (Tylenol) acetaminophen 650 mg 1,300 mg PO AMHS 09/16/23 09/16/23 History tablet,extended release albuterol sulfate 90 mcg/actuation 2 puff inhalation Q4 PRN Shortness 09/16/23 09/16/23 History aerosol inhaler Of Breath Or Wheezing bismuth subsalicylate 262 mg 1 tab PO Q12 PRN .UPSET STOMACH 09/16/23 09/16/23 History chewable tablet (Pepto-Bismol) carboxymethylcellulose sodium 0.5 1 drp OPB BID 09/16/23 09/16/23 History % eye drops (Refresh Tears) cholecalciferol (vitamin D3) 25 25 mcg PO QAM 09/16/23 09/16/23 History mcg (1,000 unit) capsule (Vitamin D3) clonazepam 0.5 mg tablet 0.5 mg PO TID 09/16/23 09/16/23 History diphenhydramine HCl 12.5 mg 12.5 mg PO BID PRN Itching 09/16/23 09/16/23 History chewable tablet dulaglutide 3 mg/0.5 mL 3 mg subcut .WEEKLY 09/16/23 09/16/23 History subcutaneous pen injector (Trulicity) finasteride 5 mg tablet 5 mg PO QAM 09/16/23 09/16/23 History food supplemt, lactose-reduced 1 ea PO BID 09/16/23 09/16/23 History furosemide 20 mg tablet 20 mg PO DAILY 09/16/23 09/16/23 History gabapentin 300 mg capsule 300 mg PO TID 09/16/23 09/16/23 History glimepiride 1 mg tablet 1 mg PO DAILY 09/16/23 09/16/23 History guaifenesin 100 mg/5 mL oral liquid 200 mg PO TID PRN Cough 09/16/23 09/16/23 History guaifenesin 600 mg tablet, 600 mg PO Q12H 09/16/23 09/16/23 History extended release 12 hr (Mucinex) loperamide 2 mg capsule (Imodium 2 mg PO TID PRN Diarrhea 09/16/23 09/16/23 History A-D) loratadine 10 mg tablet 10 mg PO DAILY 09/16/23 09/16/23 History magnesium oxide 400 mg PO BID 09/16/23 09/16/23 History metformin 1,000 mg tablet 1,000 mg PO BID 09/16/23 09/16/23 History metoprolol tartrate 25 mg tablet 12.5 mg PO BID 09/16/23 09/16/23 History multivitamin 1 tab PO DAILY 09/16/23 09/16/23 History neomycin-bacitracn Zn-polymyxn 3.5 1 applic topical DIRECTED WOUND 09/16/23 09/16/23 History mg-400 unit-5,000 unit top oint CARE pkt (Neosporin([id number])) oxcarbazepine 300 mg tablet 300 mg PO BID 09/16/23 09/16/23 History pentoxifylline 400 mg 400 mg PO TID 09/16/23 09/16/23 History tablet,extended release polyethylene glycol 3350 17 gram 17 g PO DIRECTED PRN 09/16/23 09/16/23 History oral powder packet (Miralax) Constipation quetiapine 100 mg tablet 100 mg PO TID 09/16/23 09/16/23 History sertraline 50 mg tablet 50 mg PO DAILY 09/16/23 09/16/23 History simvastatin 40 mg tablet 40 mg PO QPM 09/16/23 09/16/23 History tamsulosin 0.4 mg capsule 0.4 mg PO DAILY 09/16/23 09/16/23 History trazodone 50 mg tablet 50 mg PO HS 09/16/23 09/16/23 History umeclidinium 62.5 mcg/actuation 1 inh inhalation DAILY 09/16/23 09/16/23 History blister powder for inhalation (Incruse Ellipta) Past Med/Surg History Medical History Anxiety Aortic stenosis Mild per 09/2021 ECHO Asthma CAP (community acquired pneumonia) Cerebral palsy Chronic obstructive pulmonary disease Well controlled > hasnt used res inh for 2 yrs COPD (chronic obstructive pulmonary disease) Depression Diabetes mellitus, type 2 Diabetes mellitus, type II DJD (degenerative joint disease) Elevated troponin Femoral condyle fracture GERD (gastroesophageal reflux disease) GERD (gastroesophageal reflux disease) History of COVID-19 Tested positive 09/21/21 [facility] Sinus congestion only. no hospitalization. No current problems. Hospital-acquired pneumonia Hyperglycemia Hyperlipidemia Hypotension Intellectual disability Lives at [facility] Neck pain Neuropathy TRINIDAD (obstructive sleep apnea) TRINIDAD (obstructive sleep apnea) Per records Osteoporosis Peroneal palsy Pica Pneumonia Presence of IVC filter Placed in 1997 per records PVD (peripheral vascular disease) Scoliosis Severe sepsis Tibia fracture TMJ (temporomandibular joint disorder) Venous insufficiency Surgical History History of cholecystectomy History of colonoscopy History of tooth extraction S/P cataract surgery Left and Right Family History Father Coronary heart disease Social History Smoking Status: Never smoker packs per day: 30; Second Hand Exposure: No; Do You Dip or Chew Tobacco: No; Hx Alcohol Use: No Hx Substance Use: No Preferred Language: French Communication Ability: Effective Communication Ability Comment: [facility] Communication Tools: Other Visual Impairment: No Limitations Hearing Ability: Use of Hearing Aid 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: No Beliefs That Will Affect Care: None marital status: Single marital status details: Skills Current Living Situation: Personal Care Facility Current Living Situation Comment: LONG TERM current occupational status: disabled How many Children do You have: 0 Feels Safe at Home: Yes Diet: diabetic caffeine: No Assistive Devices: Hospital Bed, Mechanical Lift and Wheelchair Review of Systems Review of Systems: Could not be reliably obtained secondary to intellectual impairment Physical Exam Physical Exam: GENERAL: uncomfortable, no respiratory distress SKIN: Normal color, warm HEENT: [place] palpebral conjunctivae, no ptosis, dry buccal mucosa NECK : Supple, no tenderness CHEST : Decreased breath sounds, no tenderness HEART : RRR, systolic murmur ABDOMEN: Some distention, central abdominal tenderness EXTREMITIES : No LE swelling/tenderness, no other conspicuous deformities noted NEUROLOGIC : Coherent, no facial asymmetry, no other gross focality Results & Data Results & Data Vital Signs (Past 12 Hours) Vital Signs Temp Pulse Resp BP Pulse Ox O2 Del Method O2 Flow Rate 09/16/23 01:54 78 09/15/23 22:45 94 Room Air 0 09/15/23 22:44 78 18 94 Room Air 09/15/23 21:55 89 09/15/23 21:38 36.8 C 89 19 105/68 92 Room Air Laboratory Results Laboratory Results WBC 5.37 K/ul (4.8-10.8) 09/15/23 22:00 RBC 3.44 M/uL (4.70-6.10) L 09/15/23 22:00 Hgb 11.4 g/dl (14.0-18.0) L 09/15/23 22:00 Hct 35.7 % (42.0-52.0) L 09/15/23 22:00 MCV 103.8 fL (80.0-100.0) H 09/15/23 22:00 MCH 33.1 pg (25.0-34.0) 09/15/23 22:00 MCHC 31.9 g/dL (32.0-36.0) L 09/15/23 22:00 RDW Std Deviation 49.4 fL (36.4-46.3) H 09/15/23 22:00 RDW Coeff of Drew 13.1 % (11.5-14.5) 09/15/23 22:00 Plt Count 128 K/uL (130-400) L 09/15/23 22:00 MPV 11.6 fL (9.4-12.4) 09/15/23 22:00 Immature Gran % (Auto) 0.2 % 09/15/23 22:00 Neut % (Auto) 63.6 % 09/15/23 22:00 Lymph % (Auto) 25.9 % 09/15/23 22:00 [place] % (Auto) 8.6 % 09/15/23 22:00 Eos % (Auto) 1.1 % 09/15/23 22:00 Baso % (Auto) 0.6 % 09/15/23 22:00 Neut # (Auto) 3.42 K/uL (1.40-6.50) 09/15/23 22:00 Lymph # (Auto) 1.39 K/uL (1.20-3.40) 09/15/23 22:00 [place] # (Auto) 0.46 K/uL (0.11-0.59) 09/15/23 22:00 Eos # (Auto) 0.06 K/uL (0.00-0.50) 09/15/23 22:00 Baso # (Auto) 0.03 K/uL (0.00-0.20) 09/15/23 22:00 Immature Gran # (Auto) 0.01 K/uL (0.01-0.20) 09/15/23 22:00 PT 9.8 Seconds (9.0-12.0) 09/15/23 22:38 INR 0.9 (0.9-1.1) 09/15/23 22:38 Sodium 134 mmol/L (136-145) L 09/15/23 22:00 Potassium 4.3 mmol/L (3.5-5.1) 09/15/23 22:00 Chloride 101 mmol/L (98-107) 09/15/23 22:00 Carbon Dioxide 24 mmol/L (21-32) 09/15/23 22:00 Anion Gap 9 (3-11) 09/15/23 22:00 BUN 32 mg/dl (6-23) H 09/15/23 22:00 Creatinine 0.69 mg/dl (0.6-1.4) 09/15/23 22:00 Est Cr Clr Drug Dosing 94.3 ml/min 09/15/23 22:00 Est GFR ( Amer) 112.3 ml/min 09/15/23 22:00 Est GFR (Non-Af Amer) 96.9 ml/min 09/15/23 22:00 BUN/Creatinine Ratio 46.4 (10-20) H 09/15/23 22:00 Glucose 264 mg/dl (70-99(Fasting)) H 09/15/23 22:00 Calcium 9.6 mg/dl (8.6-10.3) 09/15/23 22:00 Magnesium 1.2 mg/dl (1.7-2.4) L 09/15/23 22:00 Total Bilirubin 0.3 mg/dl (0.2-1.0) 09/15/23 22:00 AST 22 U/L (13-39) 09/15/23 22:00 ALT 20 U/L (7-52) 09/15/23 22:00 Alkaline Phosphatase 98 U/L (34-104) 09/15/23 22:00 Troponin I High Sens 8.7 pg/ml (0-20) 09/15/23 22:00 Total Protein 6.5 gm/dl (6.0-8.3) 09/15/23 22:00 Albumin 3.7 gm/dl (3.4-5.0) 09/15/23 22:00 Globulin 2.8 gm/dl (2.5-4.0) 09/15/23 22:00 Albumin/Globulin Ratio 1.3 (0.9-2) 09/15/23 22:00 Lipase 144 U/L (11-82) H 09/15/23 22:00 Stl C. cayetanensis PCR Not Detected (NotDetected) 09/15/23 Unknown Stool Rotavirus A PCR Not Detected (NotDetected) 09/15/23 Unknown Stl Adenov F 40/41 PCR Not Detected (NotDetected) 09/15/23 Unknown Stool Astrovirus (PCR) Not Detected (NotDetected) 09/15/23 Unknown Stool Campylobacter PCR Not Detected (NotDetected) 09/15/23 Unknown Stl C. diff Tox B Gene Negative Cdiff Gene (Neg) 09/15/23 Unknown Stool Cryptosporidium PCR Not Detected (NotDetected) 09/15/23 Unknown Stl E.coli Shiga Tox PCR Not Detected (NotDetected) 09/15/23 Unknown Stl Enterotoxigenic E PCR Not Detected (NotDetected) 09/15/23 Unknown Stool EPEC (PCR) Not Detected (NotDetected) 09/15/23 Unknown Stool EAEC (PCR) Not Detected (NotDetected) 09/15/23 Unknown Stl E. histolytica PCR Not Detected (NotDetected) 09/15/23 Unknown Stool Giardia Lamblia PCR Not Detected (NotDetected) 09/15/23 Unknown Stool Salmonella PCR Not Detected (NotDetected) 09/15/23 Unknown Stool Sapovirus (PCR) Not Detected (NotDetected) 09/15/23 Unknown Stl P. shigelloides PCR Not Detected (NotDetected) 09/15/23 Unknown Stl Shigella/EIEC PCR Not Detected (NotDetected) 09/15/[address].enterocolitica PCR Not Detected (NotDetected) 09/15/23 Unknown Stool Vibrio (PCR) Not Detected (NotDetected) 09/15/23 Unknown Stl Vibrio cholerae PCR Not Detected (NotDetected) 09/15/23 Unknown Stl Norovirus GI/GII PCR Not Detected (NotDetected) 09/15/23 Unknown Impressions Abdomen/Pelvis CT 09/15/23 22:29 Exam(s): CT ABDOMEN + PELVIS Without Contrast EXAM: CT Abdomen and Pelvis Without Intravenous Contrast CLINICAL HISTORY: Reason for exam: N/V, eval for SBO, contrast allx. TECHNIQUE: Axial computed tomography images of the abdomen and pelvis without intravenous contrast. Automated exposure control was utilized for the study. A dose lowering technique was utilized adhering to the principles of ALARA. COMPARISON: 12/21/2022. FINDINGS: Lung bases: Bilateral lower lobe consolidation suggestive of atelectasis versus infiltrate. Heart: Unremarkable. No cardiomegaly. No significant pericardial effusion. Normal cardiac size with coronary artery calcifications. ABDOMEN: Liver: Unremarkable. Gallbladder and bile ducts: Status post cholecystectomy with biliary distention. No ductal dilation. Pancreas: Suboptimally seen pancreatic head. No ductal dilation. Spleen: Unremarkable. No splenomegaly. Adrenals: Unremarkable. No mass. Kidneys and ureters: Unremarkable. No obstructing stones. No hydronephrosis. Stomach and bowel: Nonspecific distention of the small bowel and stomach reaching approximately 4.6 cm suggestive of small bowel ileus versus small bowel obstruction with indeterminate zone of transition. There is mild distention of the right colon with air-fluid level. There is fluid within the descending. No mucosal thickening. PELVIS: Appendix: No findings to suggest acute appendicitis. Bladder: Unremarkable. No stones. Reproductive: Unremarkable as visualized. ABDOMEN and PELVIS: Intraperitoneal space: Unremarkable. No free air. No significant fluid collection. Bones/joints: Multilevel degenerative disease of the spine with scoliosis. Sacral level fractures involving the bilateral superior and inferior pubic. Decrease in vertebral body heights are well done lower thoracic spine and L1, likely sequela of compression fractures, exact age indeterminate and likely old given morphology. There is a good level fractures involving the bilateral ribs. Soft tissues: High density at the level of the left buttock, just lateral to the left greater trochanter suggestive of small hematoma measuring 3.6 x 2.3 cm. Vasculature: IVC filter in place. Tortuosity of aorta with no aneurysm. Calcified atherosclerotic disease of bilateral iliac arteries with no aneurysm. Lymph nodes: Unremarkable. No enlarged lymph nodes. IMPRESSION: 1. Diffuse distention of the small bowel and stomach with air-fluid levels suggestive of ileus versus enteritis. Due to distention of the right colon with fluid within the lumen and presence of fluid within the descending colon, differential diagnosis includes ileus with small bowel obstruction of indeterminate zone of transition less likely but not entirely excluded. 2. Clinical correlation recommended and follow-up with 2 views of the abdomen recommended for further evaluation to evaluate progression. Electronically signed by: Mireya Mccollum MD 09/16/23 01:55 AM Diagnostic Findings EKG as per my interpretation : Rate 85, NSR, LAD, LAFB, incomplete RBBB, T wave abnormalities inferior leads, PVCs
[2023-09-16] MEDS ORDERED: PROMETHAZINE HCL 6.25 MG in SODIUM CHLORIDE 0.9% 50 ML IV PRN (02:57)
[2023-09-16] MEDS ORDERED: GLUCOSE 10 TAB/TUBE PO PRN (02:57)
[2023-09-16] MEDS ORDERED: GLUCAGON FOR INJ 1 MG VIAL SQ PRN (02:57)
[2023-09-16] MEDS ORDERED: GLUCOSE 40% GEL 15 GM TUBE PO PRN (02:57)
[2023-09-16] MEDS ORDERED: LANTUS PER UNIT CHARGE SQ STA (02:57)
[2023-09-16] MEDS ORDERED: INSULIN ASPART PER UNIT CHARGE SC SCH (03:00)
--- OUTSIDE RECORDS SUMMARY | 2023-09-16 03:07 | External Medical Summary | Summary of Care ---
Author Name Unknown Organization [facility] Address [address] [place] [address] Phone [phone] Care Team Providers Care Pullman Conductor Name Role Phone Clari ORELLANA MD, Andrew Lane Primary Care Provider [phone] Reason for Visit * Reason Onset Date Comments Medication Problem 05/14/2023 Encounter Details Date Type Department Care Team Description 05/14/2023 Telephone Family Practice [facility] [address] [place] [address] Andrew Montague III, MD [address] [place] [address] Medication Problem Allergies Active Allergy Reactions Severity Noted Date Comments Aspirin 04/06/2015 Cephalexin Unknown 11/07/2010 Cephalexin 05/27/2022 Cephalosporins Unknown 01/14/2001 Corticosteroids Unknown 01/14/2001 MEDROL PACK Haloperidol 10/25/2021 Tilactase Diarrhea 05/19/2018 Levofloxacin 07/28/2020 QUESTIONABLE allergy- rash AFTER finishing course of abx on chest Shellfish Allergy 04/06/2015 documented as of this encounter (statuses as of 08/13/2023) Medications Medication Sig Dispensed Refills Start Date End Date Status [facility] SYSTEM W/DEVICE KITIndications:D M type 2, goal A1c below 7 Use up to four times a day as directed 1 Kit 0 1 Active traZODone (DESYREL) 50 MG Tablet TAKE 1 TABLET BY MOUTH ONCE DAILY AT 8PM *MOOD* 28 Tab 5 5 Active denosumab (PROLIA) 60 MG/ML injection Inject 60 mg under the skin. 1 inj every 6 mo. 0 Active Underpads LargeIndications :Urinary incontinence Use as directed for incontinence 90 Each 5 1 Active Escitalopram Oxalate 20 MG Oral TabletIndication s:in am Take 1 Tablet by mouth in the morning. 30 Tab 5 1 Active clonazePAM 0.5 MG Oral Tablet One pill in the AM and one pill at night. 30 Tablet 5 2 Active risperiDONE 2 MG Oral Tablet (RisperDAL) Take 1 Tablet by mouth in the morning and 1 Tablet at noon and 1 Tablet before bedtime. 0 2 Active ProAir HFA 108 (90 Base) MCG/ACT Inhalation Aerosol Solution Inhale by mouth 2 Puffs every 6 hours as needed for Wheezing. 8.5 g 5 2 Active OXcarbazepine 150 MG Oral Tablet (Trileptal) Take 1 Tablet by mouth in the morning and 1 Tablet before bedtime. 0 Active Triple Antibiotic 3.5-400-5000 External Ointment Apply topically to affected area as needed for Wound Care. Apply to * minor cuts / scrapes 28.4 g 5 2 Active guaiFENesin 100 MG/5ML Oral Syrup (Robitussin) Take by mouth 10 mL as needed in the morning AND 10 mL as needed at noon AND 10 mL as needed in the evening for Cough. 120 mL 0 2 Active Theravim-M Oral Tablet TAKE ONE TABLET BY MOUTH ONCE DAILY 90 Tablet 1 2 Active Calmoseptine 0.44-20.6 % External Ointment (Menthol-Zinc Oxide)Indication s:Skin irritation Apply topically to affected area at bedtime as needed for Irritation or Other (Skin breakdown). Apply to buttocks/sacrum 20 g 3 2 Active Acetaminophen 325 MG Oral Tablet (Tylenol)Indicat ions:Inferior pubic ramus fracture, left, with routine healing, subsequent encounter,Closed fracture of multiple pubic rami, left, sequela Take by mouth 2 Tablets every 4 hours as needed for Fever >38C(100.5F) or Pain, Moderate. Do not exceed 4G of Tylenol in a 24 hour period. 100 Tablet 1 2 Active Prevail Breezers XL USE DIRECTED FOR INCONTINENCE 60 Each 5 2 Active Pepto-Bismol 262 MG Oral Tablet (Bismuth Subsalicylate) Take 1 by mouth every 12 hours as needed for upset stomach 60 Tablet 5 2 Active Boost Oral Liquid Take 237 mL by mouth in the morning and 237 mL before bedtime. 90 Each 3 2 Active Refresh Tears 0.5 % Ophthalmic Solution 0 2 Active Magnesium 400 MG Oral Tablet Take 1 Tablet by mouth in the morning and 1 Tablet in the evening. 100 Tablet 8 3 Active DIURETIC TITRATION PLAN If no improvement on day 3, contact heart failure managing provider. 1 Each 0 3 Active Finasteride 5 MG Oral Tablet (Proscar) Take 1 Tablet by mouth in the morning. 90 Tablet 3 3 Active Tamsulosin HCl 0.4 MG Oral Capsule (Flomax) Take 1 Capsule by mouth in the morning. 90 Capsule 3 3 Active Arthritis Pain Relief 650 MG Oral Tablet Extended Release (Acetaminophen ER)Indications:I nferior pubic ramus fracture, left, with routine healing, subsequent encounter,Closed fracture of multiple pubic rami, left, sequela TAKE 2 TABLET BY MOUTH IN THE MORNING AND BEFORE BEDTIME FOR PAIN *MAX 3GMS APAP IN 24HRS* 112 Tablet 5 3 Active Furosemide 20 MG Oral Tablet (Lasix) Take one tab by mouth on Thursday 03/29 and Friday 03/30 in addition to the routine 20 mg daily dose. (Total daily dose for Thursday 03/29 and Friday 03/30 will be 40 mg). 2 Tablet 3 3 Active Polyethylene Glycol 3350 17 GM/SCOOP Oral Powder (MiraLax) Take 17 g by mouth as needed for Constipation. Dissolve one heaping tablespoon in 8 ounces of water or juice.Give every 72 hours if no bowel movement 507 g 8 3 Active Underpads Extra Large Use as directed for incontinence. 90 Each 11 3 Active Testosterone 20.25 MG/ACT (1.62%) Transdermal Gel (AndroGel Pump) APPLY ONE PUMP TO THE SHOULDER DAILY.To clean, dry, unbroken skin on the shoulders or upper arms. 75 g 0 3 Active metFORMIN HCl 1000 MG Oral Tablet (Glucophage) TAKE 1 TABLET BY MOUTH TWICE DAILY WITH MEALS DM 56 Tablet 5 3 Active Loratadine 10 MG Oral Tablet (Claritin) TAKE ONE TABLET BY MOUTH ONCE DAILY FOR ALLERGIES 28 Tablet 5 3 Active Gabapentin 300 MG Oral Capsule (Neurontin) TAKE 1 CAPSULE BY MOUTH THREE TIMES DAILY AT 8AM,4PM AND BEDTIME *PAIN* 84 Capsule 5 3 Active Magnesium Oxide -Mg Supplement 400 (240 Mg) MG Oral Tablet (Mag-Ox) TAKE 1 TABLET BY MOUTH TWICE DAILY IN THE MORNING AND IN THE EVENING FOR SUPPLEMENT 56 Tablet 5 3 Active Petroleum Jelly 100 % External GelIndications:P ruritus Apply topically to affected area 2 times a day. Apply to arms, chest and areas of scratches until feels better then change in once a day 212 g 3 Active diphenhydrAMINE HCl 12.5 MG Oral Tablet Chewable (Benadryl Allergy Childrens)Indica tions:Pruritus Take 12.5 mg by mouth in the morning and 12.5 mg in the evening. For 2 weeks then as needed for itching. 30 Tablet 2 3 Active Incontinence Brief Large USE DIRECTED FOR INCONTINENCE 60 Each 1 07/14/20 23 Discontinued(Re fill) Loperamide HCl 2 MG Oral Tablet (Immodium (A-D)) Take by mouth 1 Tablet as needed in the morning AND 1 Tablet as needed at noon AND 1 Tablet as needed in the evening for Diarrhea. 30 Tablet 0 2 07/07/20 23 Discontinued(Re fill) Incruse Ellipta 62.5 MCG/INH Inhalation Aerosol Powder Breath Activated (umeclidinium Gloster) Inhale by mouth 1 Puff in the morning. 30 Each 2 07/07/20 23 Discontinued(Re fill) D3-1000 25 MCG (1000 UT) Oral Capsule (Cholecalciferol ) Take by mouth 1 Capsule in the morning. 30 Capsule 2 06/18/20 23 Discontinued Metoprolol Tartrate 25 MG Oral Tablet (Lopressor) Take 1/2 tablet 2 times a day. 90 Tablet 1 3 06/18/20 Discontinued guaiFENesin ER 600 MG Oral Tablet Extended Release 12 Hour (Mucinex)Indicat ions:Cough Take 1 Tablet by mouth in the morning and 1 Tablet before bedtime. 60 Tablet 11 3 06/23/20 23 Discontinued(Re fill) Omeprazole 20 MG Oral Capsule Delayed Release (PriLOSEC) TAKE ONE CAPSULE BY MOUTH ONCE DAILY FOR GERD 28 Capsule 5 3 08/07/20 23 Discontinued Simvastatin 40 MG Oral Tablet (Zocor) TAKE ONE TABLET BY MOUTH EVERY EVENING *CHOLESTEROL* 28 Tablet 5 3 08/07/20 23 Discontinued Pentoxifylline ER 400 MG Oral Tablet Extended Release (TRENtal) TAKE ONE TABLET BY MOUTH THREE TIMES DAILY *CIRCULATION* 84 Tablet 5 3 08/07/20 23 Discontinued Probiotic Acidophilus BioBeads Oral Capsule Take 1 Capsule by mouth in the morning and 1 Capsule at noon and 1 Capsule in the evening. Take with meals. 0 07/15/20 23 Discontinued(Re fill) Januvia 100 MG Oral Tablet (SITagliptin)Ind ications:Type 2 diabetes mellitus with hemoglobin A1c goal of less than 7.0% (HCC) TAKE ONE TABLET BY MOUTH ONCE DAILY FOR DM 28 Tablet 5 3 05/23/20 23 Discontinued Glimepiride 1 MG Oral Tablet (Amaryl) TAKE ONE TABLET BY MOUTH DAILY. *DM* 28 Tablet 5 3 07/25/20 23 Discontinued OneTouch Ultra In Vitro Strip (Glucose Blood)Indication s:DM type 2, not at goal (HCC) Please check patients blood sugar before lunch on days that he attends the day program 400 Strip 3 07/03/20 23 Discontinued(Re fill) OneTouch Delica Plus [id number] ions:Type 2 diabetes mellitus with hemoglobin A1c goal of less than 7.0% (HCC) Please check patients blood sugar before lunch on days that he attends the day program 400 Each 3 3 07/03/20 23 Discontinued(Re fill) hydrOXYzine HCl 25 MG Oral TabletIndication s:Pruritus Take 0.5 Tablets by mouth in the morning and 0.5 Tablets at noon and 0.5 Tablets in the evening. For 2 weeks then as needed. 40 Tablet 2 3 05/14/20 23 Discontinued(Fo rmulary/Cost) Triamcinolone Acetonide 0.1 % External Ointment (Aristocort)Jo cations:Pruritus ,Dermatitis Apply topically to affected area 2 times a day. To affected area for 4 weeks or until healed 80 g 1 3 07/10/20 23 Discontinued(Re fill) Hospital, Clinic, or Other Facility Administered Medication Ordered Dose Route Frequency Start Date End Date Status Zinc Oxide (Desitin/Kevon) 40 % ointmentIndications:Skin ulcer of sacrum, unspecified ulcer stage (HCC) TOP Daily(AM) 04/08/2022 Active Zinc Oxide (Desitin) 40 % pasteIndications:Open bite of buttock, unspecified laterality, initial encounter TOP BID (.AM/PM) 11/05/2022 Active documented as of this encounter (statuses as of 08/13/2023) Active Problems Problem Noted Date Primary male hypogonadism 04/14/2023 Cerebral palsy 02/20/2023 Type 2 diabetes mellitus wit h diabetic polyneuropathy, without long-term current use of insulin 02/20/2023 Hyperprolactinemia 02/20/2023 COPD, group A, by GOLD 2017 classificati on 10/07/2022 Overview: Per COPD GOLD Classification PAF (paroxysmal atrial fibrillation) 08/2022 Dyslipidemia 09/06/2022 Protein-calorie malnutrition 05/27/2022 Protein-calorie malnutrition 05/27/2022 Thrombocytopenia 02/06/2022 Diabetes mellitus with peripheral angiop athy 03/03/2019 Type 2 diabetes mellitus with diabetic d ermatitis 11/25/2018 Diabetic complication 11/25/2018 Peripheral vascular disease 11/25/2018 Senile osteoporosis 06/10/2018 Cataract 06/23/2012 History of epistaxis 03/04/2012 Hearing loss 07/05/2011 Obstructive sleep apnea 08/07/2010 Overview: 07/16/10 - AHI 8.7 (no central/mixed), significant nocturnal hypoxemia , started on 3 LPM at bedtime ICD-10 update of inactive term Type 2 diabetes mellitus with hemoglobin A1c goal of less than 7.0% 08/24/2009 Overview: Per Diabetes Taxonomy. ICD-10 update of inactive term Sensorineural hearing loss, bilateral Chronic otitis externa 04/05/2009 ADVANCE DIRECTIVE INFORMATION 09/23/2006 Overview: No, Advance Directive brochure given to patient. Esophageal reflux 04/16/2005 chronic stasis dermatitis 06/09/2002 Mitral valve disorder Intellectual disability Overview: ICD-10 update of inactive term Venous insufficiency Temporomandibular joint disorders, unspe cified documented as of this encounter (statuses as of 08/13/2023) Resolved Problems Problem Noted Date Resolved Date Protein-calorie malnutrition 09/26/202111/2021 Protein-calorie malnutrition 11/25/201805/2019 Chronic obstructive pulmonary disease 05/21/2017 10/10/2022 Overview: Per COPD GOLD Classification Diabetic angiopathy 03/28/2017 12/22/2017 Osteoporosis 02/25/2013 06/10/2018 Keratoconjunctivitis 06/23/2012 09/22/2019 HYPOXEMIA - NOCTURNAL 09/11/2010 09/22/2019 Overview: 09/10/10 on 3 LPM: <=88% for 47 mins, low 83%, mean 92%, CHANDRA 26 11/14/10: Increase to 4 LPM nightly [facility] DM type 2 causing neurological disease 9 03/28/2017 Overview: Per Diabetes Taxonomy. ACTIVE CASE MANAGEMENT Shanthi Dawson RN 05/20/2008 08/13/2010 Type 2 diabetes mellitus wit h hemoglobin A1c goal of less than 7.0% 03/18/2007 08/24/2009 Overview: Per Diabetes Taxonomy. ICD-10 update of inactive term Tobacco use disorder 09/05/2005 11/13/2007 Overview: 30+ pack years DIAB NEURO MANIF ADULT 01/26/2002 9 Overview: Per Diabetes Taxonomy. Type 2 diabetes mellitus wit h hemoglobin A1c goal of less than 7.0% 02/22/2009 Overview: ICD-10 update of inactive term PANCREATIC DISORDER NOS 09/22/20 19 Pressure ulcer 12/31/2016 Overview: ICD-10 update of inactive term ULCER OF LOWER LIMB,UNSPEC 06/01 Phlebitis and thrombophlebitis 0 04/26/2020 Other acute otitis externa 12/22 Overview: Resolved per Benign Acute Dxs Protocol #3 Deviated nasal septum 09/22/2019 documented as of this encounter (statuses as of 08/13/2023) Immunizations Name Administration Dates Next Due COVID-19 mRNA, LNP-s, No Pre serve, 2-Dose Series ([employer]) 09/11/2021,12/20/2020,11/29/2020 Covid-19, Mrna, Lnp-s, Pf, B ivalent, 30 Mcg, IM, 12 yrs and above ([employer]) 09/13/2022 H1N1 2009 Influenza, IM 09/04/2009 Hepatitis B, 20+ yrs 04/06/2014,11/05/19 14,09/29/2013,02/2012,07/23/2010 PPD 04/14/2023,,05/03/2019,04/27,06/10/2014,07/01/2012,07/02/20 11,06/28/2009,07/22/2007,01/08/2006,0 05/27/1998 06/30/2009 Pneumococcal Conjugate Vacc, 13 Valent (Prevnar) 09/22/2019 Pneumococcal Polysaccharide PPV23 (Pneumovax) 02/21/2021,08/13/2014,10/27/1997,10/1988 SEASONAL INFLUENZA, PF, 6 M & Above, IM , (FLULAVAL or FLUZONE) 07/28/2020,08/20/2018,08/21/2017 Seasonal Influenza, Quadriva lent Hd (Fluzone Hd) 07/09/2022,08/22/2021 Seasonal Influenza, Quadriva lent, No Preserve, IM 09/16/2016 Seasonal Influenza, Split, I IV3, With Preserve, Inj 08/02/2015,08/27/2013,07/01/2012,07/28,07/23/2010,09/14/2009,08/01/20 08,08/03/2007,08/06/2006 Seasonal Influenza, Trivalen t, Adjuvanted, 65+ yrs 09/22/2019 TD, Preservative Free 07/04/2020 TDAP (age 11 and older)(Adacel) 05/02/2020,06/29 Varicella Vaccine (Chicken Pox) 06/02/2015 Varicella Zoster Vaccine (Adult) 06/02/2015 Zoster Vaccine Recombinant (Shingrix) 02/13/2019 ,12/12/2018 documented as of this encounter Social History Tobacco Use Types Packs/Day Years Used Date Smoking Tobacco: Former Cigarettes 2 30 Q uit: 12/25/2010 Smokeless Tobacco: Never Comments:04/2010 - unsure tot al amount of years smoked Alcohol Use Standard Drinks/Week Comments No 0 (1 standard drink = 0.6 oz pur e alcohol) Food Insecurity Answer Date Recorded Within the past 12 months, y ou worried that your food would run out before you got money to buy more. Never true 07/09/2022 Within the past 12 months, t he food you bought just didn't last and you didn't have money to get more. Never true 07/09/2022 Sex Assigned at Date Recorded Male 07/09/2022 11:29 AM EDT Job Start Date Occupation Industry Not on file Not on file Not on file documented as of this encounter Miscellaneous Notes * Telephone Encounter - Miladis Latham MD - 05/14/2023 4:10 PM EDT Jose Luis sent * Telephone Encounter - Karen Lopez - 05/14/2023 2:58 PM EDT Roseanna, TECHNICAL WRITER AND EDITOR calling stating hydroxyzine needs a prior auth. Caller said she was told benadryl wont need a prior auth. Caller was wondering if could sen din a d/c order for hydroxyzine and then a new script for benadryl. Thanks, Karen Lopez [employer] [facility] 05/14/2023,3:00 PM documented in this encounter Plan of Treatment Upcoming Encounters Date Type Specialty Care Team Description 08/27/2023 Office Visit Endocrinology Rogers Dwyer MD [address] [place] [address] 08/30/2023 Office Visit Family Medicine ClariAndrew forbes III, MD [address] [place] [address] 09/09/2023 Office Visit Rheumatology Austin Saravia CRNP [address] [place] [address] 09/29/2023 Office Visit Cardiology Natasha Avery CRNP [address] [place] [address] 11/26/2023 Imaging Radiology 12/11/2023 Imaging Radiology 12/23/2023 Telemedicine Urology Joseph Doty MD [address] [place] [id number], Telemed [facility] Urology Ex Rm [address] [place] [id number] Scheduled Procedures Name Priority Associated Diagnoses Date/Ti me COLONOSCOPY FLEXIBLE PROXIMAL DIAGNOSTIC Recall History of colon polyps Health Maintenance Due Date Last Done Comments Alpha-1 Antitrypsin 1972 Albumin/Creatinine Ratio 03/19/2023 022, 04/26/2020, 05/20/2019, Additional history exists DIABETES-EYE EXAM 05/31/2023 05/31/2022, , 05/28/2019, Additional history exists COVID-19 Vaccine (2022- season) 2023 09/13/2022, 09/11/2021, 12/20/2020, Additional history exists Depression Screening 07/09/2023 07/09/2022 B-12 08/01/2023 08/01/2022, 08/0 10/2021, 10/04/2021, Additional history exists HbA1c 11/22/2023 05/22/2023, 04/26, 08/16/2022, Additional history exists GFR 07/09/2024 07/09/2023, 04/27, 05/14/2023, Additional history exists Diabetic Foot Exam 07/16/2024 07/16/2023, 0 07/09/2022, 11/08/2020, Additional history exists O2 ASSESSMENT COMPLETED IN PAST YEAR FOR COPD 07/25/2024 07/25/2023 DXA Scan 03/11/2025 03/11/2023, 04/0 04/2021, 01/18/2019, Additional history exists COLONOSCOPY-EVERY 5 YRS AGES 18-100 02/21/2027 02/21/2022, 02/21/2022, 01/31/2017, Additional history exists Lipid Panel 08/01/2027 08/01/2022, 04/27, 05/12/2018, Additional history exists DTaP,Tdap,and Td Vaccines (4 - Td or Tdap) 07/04/2030 07/04/2020, 05/02/2020, 06/29/2010, Additional history exists Hepatitis B Completed 04/06/2014, 10/27, 09/29/2013, Additional history exists Zoster Vaccines Completed 02/13/2019, 11/27, 06/02/2015 Pneumococcal Vaccine: 65+ Years Completed 02/21/2021, 09/22/2019, 08/13/2014, Additional history exists AAA Screening Completed 05/15/2021, 10/05/2019 VITAMIN D LEVEL ONCE IN A LIFETIME-USE SMARTSET# [id number] Completed 09/26/2022, 08/01/2022, 01/03/2021, Additional history exists LUNG CANCER SCREENING - USE SMARTSET [id number] Completed 11/22/2022, 11/20/2021, 09/04/2020, Additional history exists Influenza Vaccine (FLU shot) Completed , 07/09/2022, 08/22/2021, Additional history exists GARDASIL-HPV IMMUNIZATION SERIES Aged Out No longer eligible based on patient's age to complete this topic MENINGOCOCCAL (MENACTRA/MENVEO) Aged Out No longer eligible based on patient's age to complete this topic documented as of this encounter Medical Devices Not on filedocumented as of this encounter Visit Diagnoses Diagnosis Pruritus- Primary Unspecified pruritic disorder documented in this encounter Additional Health Concerns Infection Onset Date Last Indicated Resolved Time Gastrointestinal Rule-Out 07/23/2023 07/23/2023 5:06 PM EDT documented as of this encounter Care Teams Pullman Conductor Relationship Specialty Start Date End Date Andrew Montague III, MD [address] [place] [id number] PCP - General 12/22/01 documented as of this encounter
--- OUTSIDE RECORDS SUMMARY | 2023-09-16 03:07 | External Medical Summary | Summary of Care ---
Author Name Unknown Organization [facility] Address [address] [place] [address] Phone [phone] Care Team Providers Care Pipeline Inspector Name Role Phone Clari ORELLANA MD, Andrew Lane Primary Care Provider [phone] Reason for Visit * Reason Onset Date Comments Pre Cert/Prior Auth 06/25/2023 Encounter Details Date Type Department Care Team ([facility] Contact Info) Description 06/25/20[address] Medicine [facility] [address] [place] [address] Miladis Latham MD [address] [place] [address] Pre Cert/Prior Auth Allergies Active Allergy Reactions Criticality Noted Date Comments Aspirin 04/06/2015 Cephalexin Unknown 11/07/2010 Cephalexin 05/27/2022 Cephalosporins Unknown 01/14/2001 Corticosteroids Unknown 01/14/2001 MEDROL PACK Haloperidol 10/25/2021 Tilactase Diarrhea 05/19/2018 Levofloxacin 07/28/2020 QUESTIONABLE allergy- rash AFTER finishing course of abx on chest Shellfish Allergy 04/06/2015 documented as of this encounter (statuses as of 08/19/2023) Medications Medication Sig Dispensed Refills Start Date End Date Status scrible SYSTEM W/DEVICE KITIndications:D M type 2, goal [...] for itching. 30 Tablet 2 3 Active D3-1000 25 MCG (1000 UT) Oral Capsule (Cholecalciferol ) TAKE ONE CAPSULE BY MOUTH DAILY. *SUPPLEMENT* 28 Capsule 5 3 Active Metoprolol Tartrate 25 MG Oral Tablet (Lopressor) TAKE 1/2 TABLET (12.5MG) BY MOUTH TWICE DAILY FOR HTN 90 Tablet 3 3 Active guaiFENesin ER 600 MG Oral Tablet Extended Release 12 Hour (Mucinex)Indicat ions:Cough Take 1 Tablet by mouth in the morning and 1 Tablet before bedtime. 60 Tablet 5 3 Active Incontinence Brief Large USE DIRECTED [...] MCG/INH Inhalation Aerosol Powder Breath Activated (umeclidinium [place]) Inhale by mouth 1 Puff in the morning. 30 Each 11 2 07/07/20 23 Discontinued(Re fill) Omeprazole 20 MG Oral [...] with meals. 0 07/15/20 23 Discontinued(Re fill) Glimepiride 1 MG Oral Tablet (Amaryl) TAKE ONE TABLET BY MOUTH DAILY. *DM* 28 Tablet 5 3 07/25/20 23 Discontinued OneTouch Ultra In Vitro Strip (Glucose Blood)Indication s:DM type 2, not at goal (HCC) Please check patients blood sugar before lunch on days that he attends the day program 400 Strip 3 07/03/20 23 Discontinued(Re fill) OneTouch Delica Plus [id number] ions:Type 2 diabetes mellitus with hemoglobin A1c goal of less than 7.0% (HCC) Please check patients blood sugar before lunch on days that he attends the day program 400 Each 3 3 07/03/20 23 Discontinued(Re fill) Triamcinolone Acetonide 0.1 % External Ointment (Aristocort)Jo cations:Pruritus ,Dermatitis Apply topically to affected area 2 times a day. To affected area for 4 weeks or until healed 80 g 1 3 07/10/20 23 Discontinued(Re fill) Trulicity 0.75 MG/0.5ML Subcutaneous Solution Pen-injector (Dulaglutide) Inject 0.75 mg under the skin once a week. 6 mL 6 3 07/25/20 23 Discontinued Hospital, Clinic, or Other Facility Administered Medication Ordered Dose Route Frequency Start Date End Date Status Zinc Oxide (Desitin/Kevon) 40 % ointmentIndications:Skin ulcer of sacrum, unspecified ulcer stage (HCC) TOP Daily(AM) 04/08/2022 Active Zinc Oxide (Desitin) 40 % pasteIndications:Open bite of buttock, unspecified laterality, initial encounter TOP BID (.AM/PM) 11/05/2022 Active documented as of this encounter (statuses as of 08/19/2023) Active Problems Problem Noted Date Diagnosed Date Primary male hypogonadism 04/14/2023 Cerebral palsy 02/20/2023 Type 2 diabetes mellitus wit h diabetic polyneuropathy, without long-term current use of insulin 02/20/2023 Hyperprolactinemia 02/20/2023 COPD, group A, by GOLD 2017 classification 10/07 Overview: Per COPD GOLD Classification PAF (paroxysmal atrial fibrillation) 09/06/2022 Dyslipidemia 09/06/2022 Protein-calorie malnutrition 05/27/2022 Protein-calorie malnutrition 05/27/2022 Thrombocytopenia 02/06/2022 Diabetes mellitus with peripheral angiopathy 05/2019 Type 2 diabetes mellitus with diabetic dermatiti s 11/25/2018 Diabetic complication 11/25/2018 Peripheral vascular disease 11/25/2018 Senile osteoporosis 06/10/2018 Cataract 06/23/2012 History of epistaxis 03/04/2012 Hearing loss 07/05/2011 Obstructive sleep apnea 08/07/2010 Overview: 07/16/10 - AHI 8.7 (no central/mixed), significant nocturnal hypoxemia , started on 3 LPM at bedtime ICD-10 update of inactive term Type 2 diabetes mellitus wit h hemoglobin A1c goal of less than 7.0% 08/24/2009 Overview: Per Diabetes Taxonomy. ICD-10 update of inactive term Sensorineural hearing loss, bilateral 04/05/2009 Chronic otitis externa 04/05/2009 ADVANCE DIRECTIVE INFORMATION 09/23/2006 Overview: No, Advance Directive brochure given to patient. Esophageal reflux 04/16/2005 chronic stasis dermatitis 06/09/2002 Mitral valve disorder Intellectual disability Overview: ICD-10 update of inactive term Venous insufficiency Temporomandibular joint disorders, unspecified documented as of this encounter (statuses as of 08/19/2023) Resolved Problems Problem Noted Date Diagnosed Date Resolved Date Protein-calorie malnutrition 09/26/2021 02/25/2022 Protein-calorie malnutrition 11/25/2018 03/03/2019 Chronic obstructive pulmonary disease 05/21/2017 10/10/2022 Overview: Per COPD GOLD Classification Diabetic angiopathy 03/28/2017 12/22/19 18 Osteoporosis 02/25/2013 06/10/2018 Keratoconjunctivitis 06/23/2012 019 HYPOXEMIA - NOCTURNAL 09/11/20102018 Overview: 09/10/10 on 3 LPM: <=88% for 47 mins, low 83%, mean 92%, CHANDRA 26 11/14/10: Increase to 4 LPM nightly [facility] DM type 2 causing neurological disease 08/24/2009 03/28/2017 Overview: Per Diabetes Taxonomy. ACTIVE CASE MANAGEMENT Shanthi Dawson RN [phone] 05/20/2008 08/13/2010 Type 2 diabetes mellitus wit h hemoglobin A1c goal of less than 7.0% 03/18/2007 08/24/2009 Overview: Per Diabetes Taxonomy. ICD-10 update of inactive term Tobacco use disorder 09/05/2005 008 Overview: 30+ pack years DIAB NEURO MANIF ADULT 01/26/200208/24 Overview: Per Diabetes Taxonomy. Type 2 diabetes mellitus wit h hemoglobin A1c goal of less than 7.0% 02/22/2009 Overview: ICD-10 update of inactive term PANCREATIC DISORDER NOS 08/28 Pressure ulcer 12/31/2016 Overview: ICD-10 update of inactive term ULCER OF LOWER LIMB,UNSPEC 0 06/01/2015 Phlebitis and thrombophlebitis 04/26/2020 Other acute otitis externa 0 12/22/2008 Overview: Resolved per Benign Acute Dxs Protocol #3 Deviated nasal septum 2018 documented as of this encounter (statuses as of 08/19/2023) Immunizations Name Administration Dates Next Due COVID-19 mRNA, LNP-s, No Pre serve, 2-Dose Series ([facility]) 09/11/2021,12/20/2020,11/29/2020 Covid-19, Mrna, Lnp-s, Pf, B ivalent, 30 Mcg, IM, 12 yrs and above ([facility]) 09/13/2022 H1N1 2009 Influenza, IM 09/04/2009 Hepatitis [...] drink = 0.6 oz pur e alcohol) Sex and Gender Information Value Date Recorded Sex Assigned at Male 07/09/2022 11:29 AM EDT Gender Identity Male 07/09/2022 11:29 AM EDT Sexual Orientation Choose not to disclose 2021 11:29 AM EDT Job Start Date Occupation Industry Not on file Not on file Not on file documented as of this encounter Miscellaneous Notes * Telephone Encounter - Effie Nova LPN - 06/26/2023 3:21 PM EDT [place] submitted via covermymeds. Guzman: [email or web address] * Telephone Encounter - TRINIDAD Jimenez - 06/25/2023 12:18 PM EDT Prior auth request Medication: triamcinolone documented in this encounter Plan of Treatment Upcoming Encounters Date Type Department Care Team (Late st Contact Info) Description 08/27/2023 12:00 PM EDT Office Visit Endocrinology, [place] [address] [facility] [place] [address] Rogers Dwyer MD [address] [place] [address] 08/30/2023 1:00 PM EDT Office Visit Family Practice [facility] [address] [facility] [place] [address] Andrew Montague III, MD [address] [place] [address] 09/09/2023 2:00 PM EST Office Visit Rheumatology [place] [id number] [facility] [place] [address] Austin Saravia CRNP [address] [facility] [place] [address] 09/29/2023 1:00 PM EST Office Visit Cardiology, [facility] [address] [facility] [place] [address] Nat[facility]very [facility] [address] [facility] [address] 11/26/2023 10:15 AM EST Imaging Radiology [facility] [address] [address] [place] [address] 12/11/2023 10:00 AM EST Imaging Radiology [facility] [address] [facility] [address] 12/23/2023 11:30 AM EST Telemedicine Urology [address] [place] [address] Joseph Doty MD [address] [place] [address] 7, Telemed [facility] Urology Ex Rm [address] [facility] [place] [address] Scheduled Procedures Name Priority Associated Diagnoses Date/Ti me COLONOSCOPY FLEXIBLE PROXIMAL DIAGNOSTIC Recall History of colon polyps Health Maintenance Due Date Last Done Comments Alpha-1 Antitrypsin 1972 Albumin/Creatinine Ratio 03/19/2023 022, 04/26/2020, 05/20/2019, Additional history exists DIABETES-EYE EXAM 05/31/2023 05/31/2022, , 05/28/2019, Additional history exists COVID-19 Vaccine ( season) 2023 09/13/2022, 09/11/2021, 12/20/2020, Additional history [...] D LEVEL ONCE IN A LIFETIME-USE SMARTSET# [id number] Completed 09/26/2022, 08/01/2022, 01/03/2021, Additional history exists LUNG CANCER SCREENING - USE SMARTSET [id number] Completed 11/22/2022, 11/20/2021, 09/04/2020, Additional history exists Influenza Vaccine (FLU shot) Completed , 07/09/2022, 08/22/2021, Additional history exists GARDASIL-HPV IMMUNIZATION SERIES Aged Out No longer eligible based on patient's age to complete this topic MENINGOCOCCAL (MENACTRA/MENVEO) Aged Out No longer eligible based on patient's age to complete this topic documented as of this encounter Medical Devices Not on filedocumented as of this encounter Additional Health Concerns Infection Onset Date Last Indicated Resolved Time Gastrointestinal Rule-Out 07/23/2023 07/23/2023 5:06 PM EDT documented as of this encounter Care Teams Pipeline Inspector Relationship Specialty Start Date End Date Andrew Montague III, MD [address] [facility] [address] PCP - General 12/22/01 documented as of this encounter
--- OUTSIDE RECORDS SUMMARY | 2023-09-16 03:07 | External Medical Summary | Summary of Care ---
Author Name Unknown Organization [facility] Address [address] [place] [address] Phone [phone] Care Team Providers Care Compounding Technician Name Role Phone Clari ORELLANA MD, Andrew Lane Primary Care Provider [phone] Reason for Visit * Reason Comments Follow Up Encounter Details Date Type Department Care Team ([facility] st Contact Info) Description 08/27/2023 12:00 PM EDT Office Visit Endocrinology, [place] [address] [place] [address] Rogers Dwyer MD [address] [place] [address] Primary male hypogonadism*; Hyperprolactinemia (HCC); Age-related osteoporosis without current pathological fracture; Type 2 diabetes mellitus with diabetic polyneuropathy, without long-term current use of insulin (HCC); Klinefelter syndrome Allergies Active Allergy Reactions Criticality Noted Date Comments Aspirin 04/06/2015 Cephalexin Unknown 11/07/2010 Cephalexin 05/27/2022 Cephalosporins Unknown 01/14/2001 Corticosteroids Unknown 01/14/2001 MEDROL PACK Haloperidol 10/25/2021 Tilactase Diarrhea 05/19/2018 Levofloxacin 07/28/2020 QUESTIONABLE allergy- rash AFTER finishing course of abx on chest Shellfish Allergy 04/06/2015 documented as of this encounter (statuses as of 08/27/2023) Medications Medication Sig Dispensed Refills Start Date End Date Status [email or web address] SYSTEM W/DEVICE KITIndications:DM type 2, goal A1c below 7 Use up to four times a day as directed 1 Kit 0 1 Active traZODone (DESYREL) 50 MG Tablet TAKE 1 TABLET BY MOUTH ONCE DAILY AT 8PM *MOOD* 28 Tab 5 5 Active denosumab (PROLIA) 60 MG/ML injection Inject 60 mg under the skin. 1 inj every 6 mo. 0 Active Underpads LargeIndications: Urinary incontinence Use as directed for incontinence 90 Each 5 1 Active Escitalopram Oxalate 20 MG Oral TabletIndications :in am Take 1 Tablet by mouth in [...] Active Calmoseptine 0.44-20.6 % External Ointment (Menthol-Zinc Oxide)Indications :Skin irritation Apply topically to affected area at bedtime as needed for Irritation or Other (Skin breakdown). Apply to buttocks/sacrum 20 g 3 2 Active Acetaminophen 325 MG Oral Tablet (Tylenol)Indicati ons:Inferior pubic ramus fracture, left, with routine healing, [...] 650 MG Oral Tablet Extended Release (Acetaminophen ER)Indications:In ferior pubic ramus fracture, left, with routine healing, [...] for incontinence. 90 Each 11 3 Active metFORMIN HCl 1000 MG Oral [...] 3 Active Petroleum Jelly 100 % External GelIndications:Pr uritus Apply topically to affected area 2 times a day. Apply to arms, chest and areas of scratches until feels better then change in once a day 212 g 3 Active diphenhydrAMINE HCl 12.5 MG Oral Tablet Chewable (Benadryl Allergy Childrens)Indicat ions:Pruritus Take 12.5 mg by mouth in the morning and 12.5 mg in the evening. For 2 weeks then as needed for itching. 30 Tablet 2 3 Active D3-1000 25 MCG (1000 UT) Oral Capsule (Cholecalciferol) TAKE ONE CAPSULE BY MOUTH DAILY. *SUPPLEMENT* 28 Capsule 5 3 Active Metoprolol Tartrate 25 MG Oral Tablet (Lopressor) TAKE 1/2 TABLET (12.5MG) BY MOUTH TWICE DAILY FOR HTN 90 Tablet 3 3 Active guaiFENesin ER 600 MG Oral Tablet Extended Release 12 Hour (Mucinex)Indicati ons:Cough Take 1 Tablet by mouth in the morning and 1 Tablet before bedtime. 60 Tablet 5 3 Active OneTouch Delica Plus [id number] ons:Type 2 diabetes mellitus with hemoglobin A1c goal of less than 7.0% ([facility]) Please check patients blood sugar before lunch on days that he attends the day program 400 Each 3 3 Active Loperamide HCl 2 MG Oral Tablet (Immodium (A-D)) Take 1 Tablet by mouth 3 times a day as needed for Diarrhea. 30 Tablet 0 3 Active Incruse Ellipta 62.5 MCG/ACT Inhalation Aerosol Powder Breath Activated (umeclidinium Caney) Inhale 1 Puff by mouth in the morning. 30 Each 3 Active Triamcinolone Acetonide 0.1 % External Ointment (Aristocort)Indic ations:Dermatitis ,Pruritus Apply topically to affected area 2 times a day. To affected area for 4 weeks or until healed 80 g 1 3 Active Incontinence Brief Large USE DIRECTED FOR INCONTINENCE and throughout the day program 90 Each 5 3 Active Probiotic Acidophilus BioBeads Oral Capsule Take 1 Capsule by mouth in the morning and 1 Capsule at noon and 1 Capsule in the evening. Take with meals. 100 Capsule 3 3 Active OneTouch Ultra In Vitro Strip (Glucose Blood)Indications :DM type 2, not at goal ([facility]) Please check patients blood sugar before lunch on days that he attends the day program 400 Strip 3 3 Active Amoxicillin-Pot Clavulanate 875-125 MG Oral Tablet 1 Tablet. 0 3 Active Dulaglutide 1.5 MG/0.5ML Subcutaneous Solution Pen-injector ([facility])Indica tions:Type 2 diabetes mellitus with diabetic mononeuropathy, without long-term current use of insulin ([facility]) Inject 1.5 mg under the skin once a week. 2 mL 11 3 Active Glimepiride 1 MG Oral Tablet Take 1 Tablet by mouth in the morning. 30 Tablet 5 3 Active Pentoxifylline ER 400 MG Oral Tablet Extended Release (TRENtal) TAKE ONE TABLET BY MOUTH THREE TIMES DAILY *CIRCULATION* 270 Tablet 1 3 Active Simvastatin 40 MG Oral Tablet (Zocor) TAKE ONE TABLET BY MOUTH EVERY EVENING *CHOLESTEROL* 90 Tablet 1 3 Active Omeprazole 20 MG Oral Capsule Delayed Release (PriLOSEC) TAKE ONE CAPSULE BY MOUTH ONCE DAILY FOR GERD 90 Capsule 1 3 Active Testosterone 20.25 MG/ACT (1.62%) Transdermal Gel (AndroGel Pump) APPLY ONE PUMP TO THE SHOULDER DAILY.To clean, dry, unbroken skin on the shoulders or upper arms. 75 g 0 3 08/27/20 23 Discontinued Hospital, Clinic, or Other Facility Administered Medication Ordered Dose Route Frequency Start Date End Date Status Zinc Oxide (Desitin/Kevon) 40 % ointmentIndications:Skin ulcer of sacrum, unspecified ulcer stage (HCC) TOP Daily(AM) 04/08/2022 Active Zinc Oxide (Desitin) 40 % pasteIndications:Open bite of buttock, unspecified laterality, initial encounter TOP BID (.AM/PM) 11/05/2022 Active documented as of this encounter (statuses as of 08/27/2023) Active Problems Problem Noted Date Diagnosed Date [...] as of this encounter (statuses as of 08/27/2023) Resolved Problems Problem Noted Date Diagnosed Date [...] 26 11/14/10: Increase to 4 LPM nightly [facility] DM type 2 causing neurological disease 08/24/2009 03/28/2017 Overview: Per Diabetes Taxonomy. ACTIVE CASE MANAGEMENT Shanthi Dawson RN [phone] 05/20/2008 08/13/2010 Type 2 diabetes mellitus wit [...] as of this encounter (statuses as of 08/27/2023) Immunizations Name Administration Dates Next Due COVID-19 mRNA, LNP-s, No Pre serve, 2-Dose Series (BTIG) 09/11/2021,12/20/2020,11/29/2020 Covid-19, Mrna, Lnp-s, Pf, B ivalent, 30 Mcg, IM, 12 yrs and above (BTIG) 09/13/2022 H1N1 2009 Influenza, IM 09/04/2009 Hepatitis B, 20+ yrs 04/06/2014,11/05/19 14,09/29/2013,02/2012,07/23/2010 PPD 04/14/2023,,05/03/2019,04/27,06/10/2014,07/01/2012,07/02/20 11,06/28/2009,07/22/2007,01/08/2006,0 05/27/1998 06/30/2009 Pneumococcal Conjugate Vacc, 13 Valent (Prevnar) 09/22/2019 Pneumococcal Polysaccharide PPV23 (Pneumovax) 02/21/2021,08/13/2014,10/27/1997,10/1988 SEASONAL INFLUENZA, PF, 6 M & Above, IM , (FLULAVAL or FLUZONE) 07/28/2020,08/20/2018,08/21/2017 Seasonal Influenza, Quadriva lent Hd (Fluzone Hd) 07/16/2023,07/09/2022,08/22/2021 Seasonal Influenza, Quadriva lent, No Preserve, IM [...] 30 Q uit: 12/25/2010 Smokeless Tobacco: Never Tobacco Cessation:Counseling Given: Not Answered Comments:04/2010 - unsure total amount of years smoked Alcohol Use Standard Drinks/Week Comments No 0 (1 standard drink = 0.6 oz pur e alcohol) PHQ-2 Answer Date Recorded PHQ Adult Total Score 0 07/09/2022 Hunger Vital Sign Answer Date Recorded Within the past 12 months, y ou worried that your food would run out before you got the money to buy more. Never true 07/09/20 22 Within the past 12 months, t he food you bought just didn't last and you didn't have money to get more. Never true 07/09/2022 Sex and Gender Information Value Date Recorded Sex Assigned at Male 07/09/2022 11:29 AM EDT Gender Identity Male 07/09/2022 11:29 AM EDT Sexual Orientation Choose not to disclose 2021 11:29 AM EDT Job Start Date Occupation Industry Not on file Not on file Not on file documented as of this encounter Last Filed Vital Signs Vital Sign Reading Time Taken Comments Blood Pressure 133/81 08/27/2023 11:41 AM EDT Pulse 77 08/27/2023 11:41 AM EDT Temperature - - Respiratory Rate - - Oxygen Saturation - - Inhaled Oxygen Concentration - - Weight 65.1 kg (143 lb 9.6 oz) 08/27/2023 11:41 AM EDT Height 175.3 cm (5' 9") 08/27/2023 11:41 AM EDT Body Mass Index 21.21 08/27/2023 11:41 AM EDT documented in this encounter Patient Instructions * Patient Instructions* Reymundo, Mccloud, MD - 08/27/2023 12:01 PM EDT Continue prolia q 6 months. Continue calcium and vit D supplements Take strict fall precautions. Discontinue androgel as pt is unable to tolerate it. Endocrine fu as needed documented in this encounter Progress Notes * Rogers Dwyer MD - 08/27/2023 11:39 AM EDT Images from the original note were not included. Referring provider: Andrew Montague III, MD Reason for follow-up: Male hypogonadism Date of service: 08/27/2023 Last outpatient endocrine visit: 02/21/2023 Chief complaint: Follow-up for male hypogonadism History of present illness: This is a pleasant 68-year-old male with history of intellectual disability, severe osteoporosis with multiple fragility fractures in past, type 2 diabetes mellitus and sensorineural hearing loss who is followed in endocrinology for hypogonadism. He is accompanied with nurse and caregiver from [facility]. He is resident of [facility] since age 15. He himself is a very limited historian. History obtained partially from patient and partially from from staff and chart review. Background history: He had workup to determine secondary causes of osteoporosis which showed undetectable testosterone levels. PTH, calcium, vitamin-D, TSH were normal. No prior testosterone levels were available for comparison. Labs were repeated which confirmed very low total, free and bioavailable testosterone. He reported symptoms of fatigue, night sweats, loss of muscle mass and mood irritability. He has minimal androgenic hairs (facial hairs, chest, armpit or pubic hairs). He has never fathered any children.He is unable to elaborate on sexual symptoms. He has history of mood disorder and is on trazodone, risperidone, Lexapro and clonazepam. No reported galactorrhea. Noted to have elevated prolactin. No headaches or double vision. For further evaluation, he had MRI sella. Study was limited due to motion artifact and given those limitations did notshow any obvious pituitary adenoma. Elevated prolactin was suspected to be due to being on risperidone and reglan. He was not initiated on cabergoline. IMPRESSION MRI Sella 09/2022: 1. Suboptimal study due to motion artifact. 2. Patchy/confluent nonspecific cerebral white matter T2/FLAIR hyperintense and nonenhancing foci, compatible with moderate microvascular ischemic changes, greater in extent/number for stated age. 3. Chronic brain parenchymal volume loss. 4. Otherwise, negative motion compromised contrast-enhanced sella/pituitary MR. No discrete pituitary microadenoma. Neither definite restricted diffusion concerning for acute CVA nor abnormal enhancement. Interval history: Since last visit, he had chromosomal analysis which confirm diagnosis of Klinefelter syndrome with 49 XXXY karyotyping. Scrotal ultrasound showed hypoplastic/absent testes. He was started on AndroGel1 pump on each shoulder daily. After starting AndroGel, staff noted significant changes in behavior including frequent crying, mood irritability, sexual gestures. These symptoms persisted despite reducing AndroGel dose from 2 pumps a day to 1 pump a day. Given aggression in his behavior and inability to tolerate even very low-dose of AndroGel, TRT therapy was discontinued. He has remained off of TRT at least for past 6 months. Mood is now back to his baseline. He has remained on Prolia along with calcium and vitamin-D supplements. No interval falls or fractures. Diabetes was noted to be deteriorating. Januvia has been switched with Trulicity. He has remained on Amaryl as well as metformin. His weight has remained stable. His appetite is good. Other issues: TRINIDAD has been mentioned in his history. He is not on CPAP. There is no history of erythrocytosis. Infact, he was noted to be anemic. He denies personal or family history of prostate issues. Staff reported urinary urgency and hesitancy. On abdominal imaging in past, prostatic calcifications were noted. PSA was normal. He denies history of ASCVD. He has history of osteoporosis as outlined below. He had left forearm fracture and pubic ramus fracture in 2021 (despite being on denosumab) . On calcium and vitamin-D supplements. Last Prolia injection was in 02/2023. He had DEXA scan in 02/2023 which showed stable BMD at lumbar spine and at hip with out significant change. BMD still in osteoporosis range at hip. Labs: Latest Reference Range & Units 05/14/23 12:47 05/22/23 10:20 Hemoglobin A1C 4.0 - 5.6 % 7.5 (H) 8.0 (H) Testosterone, Total 193.0 - 740.0 ng/dL 2.7 (L) Free Testosterone, Calculation 35.0 - 130.0 pg/mL 0.2 (L) Bioavailable Testosterone Calculation 79.0 - 335.0 ng/dL 0.4 (L) Sex Hormone Binding Globulin 12 - 91 nmol/L 95 (H) Latest Reference Range & Units 05/14/23 12:47 07/09/23 14:09 HGB 14.0 - 16.8 g/dL 11.2 (L) 11.1 (L) HCT 40.0 - 48.4 % 36.6 (L) 36.0 (L) Latest Reference Range & Units 08/16/22 08:15 Testosterone, Total 193.0 - 740.0 ng/dL 5.7 (L) Free Testosterone, Calculation 35.0 - 130.0 pg/mL 0.4 (L) Bioavailable Testosterone Calculation 79.0 - 335.0 ng/dL 0.9 (L) FSH 1.5 - 12.4 mIU/mL 30.0 (H) LH 1.7 - 8.6 mIU/mL 29.0 (H) Prolactin 4.0 - 15.2 ng/mL 112.6 (H) Sex Hormone Binding Globulin 12 - 91 nmol/L 12 - 91 nmol/L 121 (H) Latest Reference Range & Units 08/16/22 08:15 PSA <4.10 ng/mL <0.02 Latest Reference Range & Units 09/26/22 10:00 12/01/22 05:50 HGB 14.0 - 16.8 g/dL 11.5 (L) 9.3 (L) HCT 40.0 - 48.4 % 37.2 (L) 30.4 (L) Ref. Range 08/01/2022 11:23 Testosterone, Total Latest Ref Range: 193.0 - 740.0 ng/dL <2.5 (L) FREE TESTOSTERONE Unknown Uninterpretable Result Bioavailable Testosterone Unknown Uninterpretable Result Sex Hormone Binding Globulin Latest Ref Range: 12 - 91 nmol/L 134 (H) Ref. Range 05/07/2022 06:30 05/14/2022 07:49 08/01/2022 11:23 HCT Latest Ref Range: 40.0 - 48.4 % 32.3 (L) 29.7 (L) 35.1 (L) HGB Latest Ref Range: 14.0 - 16.8 g/dL 9.9 (L) 9.1 (L) 11.2 (L) Ref. Range 03/04/2012 08:17 12/31/2012 10:27 PSA SCREENING Latest Ref Range: <3.1 ng/mL <0.02 <0.02 Imaging: Lumbar spine BMD/T score Left femoral neck BMD/T score 02/2023 [facility] 0.870/-2.2 0.521/-3.0 01/2021 [facility] 0.891/ -2.0 0.543/-2.8 12/2018 [facility] 0.914/-1.8 0.523/-3.0 12/2016 [facility] 0.846/-2.4 0.540/-2.9 12/2014 [facility] 0.853/-2.4 0.559/-2.7 09/2012 [facility] 0.825/-2.6 0.393/-4.0 08/2010 [facility] 0.820/-2.7 0.527/-3.0 Has been on Prolia since 03/2017. So far, has received 12 doses. Last dose was on 02/2023. BMD at lumbar spine and at left femoral neck has been stable since patient is on Prolia. Follows up in [facility]. Next prolia: 08/2023 Noted to have stable compression deformities involving T11, T12 and L1 on recent vertebral imaging (x-ray C-spine, T-spine, L-spine 07/2022). No new or acute fractures noted. Latest Reference Range & Units 08/01/22 11:23 09/26/22 10:00 PTH 15 - 65 pg/mL 22 25-Hydroxy Vitamin D >19 ng/mL 53 70 Latest Reference Range & Units 05/22/23 10:20 07/09/23 14:09 Creatinine 0.6 - 1.2 mg/dL 0.7 0.6 Estimated Glomerular Filtration Rate >=60 mL/min >90 >90 Anion Gap 7 - 15 mmol/L 11 11 Glucose 70 - 120 mg/dL 242 (H) 168 (H) Calcium 8.4 - 10.2 mg/dL 9.7 9.8 Latest Reference Range & Units 09/26/22 10:00 12/01/22 05:50 12/31/22 12:09 01/02/23 00:00 02/20/23 16:12 Creatinine 0.6 - 1.2 mg/dL 0.7 0.7 0.7 0.6 CREATININE-OUTSIDE LAB 0.6 - 1.4 MG/DL 0.70 (E) Estimated Glomerular Filtration Rate >=60 mL/min >90 >90 >90 >90 EGFR-OUTSIDE LAB ML/MIN 97.0 (E) Calcium 8.4 - 10.2 mg/dL 10.0 9.0 10.4 (H) 9.9 PMH, PSH, FH, SH reviewed and no changes noted except for what is mentioned in HPI. Current Outpatient Medications Medication Sig Dispense Refill Acetaminophen 325 MG Oral Tablet (Tylenol) Take by mouth 2 Tablets every 4 hours as needed for Fever >38C(100.5F) or Pain, Moderate. Do not exceed 4G of Tylenol in a 24 hour period. 100 Tablet 1 Amoxicillin-Pot Clavulanate 875-125 MG Oral Tablet 1 Tablet. Arthritis Pain Relief 650 MG Oral Tablet Extended Release (Acetaminophen ER) TAKE 2 TABLET BY MOUTHIN THE MORNING AND BEFORE BEDTIME FOR PAIN *MAX 3GMS APAP IN 24HRS* 112 Tablet 5 Boost Oral Liquid Take 237 mL by mouth in the morning and 237 mL before bedtime. 90 Each 3 Calmoseptine 0.44-20.6 % External Ointment (Menthol-Zinc Oxide) Apply topically to affected area atbedtime as needed for Irritation or Other (Skin breakdown). Apply to buttocks/sacrum 20 g 3 clonazePAM 0.5 MG Oral Tablet One pill in the AM and one pill at night. 30 Tablet 5 D3-1000 25 MCG (1000 UT) Oral Capsule (Cholecalciferol) TAKE ONE CAPSULE BY MOUTH DAILY. *SUPPLEMENT* 28 Capsule 5 denosumab (PROLIA) 60 MG/ML injection Inject 60 mg under the skin. 1 inj every 6 mo. diphenhydrAMINE HCl 12.5 MG Oral Tablet Chewable (Benadryl Allergy Childrens) Take 12.5 mg by mouthin the morning and 12.5 mg in the evening. For 2 weeks then as needed for itching. 30 Tablet 2 DIURETIC TITRATION PLAN If no improvement on day 3, contact heart failure managing provider. 1 Each0 Dulaglutide 1.5 MG/0.5ML Subcutaneous Solution Pen-injector ([employer]) Inject 1.5 mg under the skin once a week. 2 mL 11 Escitalopram Oxalate 20 MG Oral Tablet Take 1 Tablet by mouth in the morning. 30 Tab 5 Finasteride 5 MG Oral Tablet (Proscar) Take 1 Tablet by mouth in the morning. 90 Tablet 3 Furosemide 20 MG Oral Tablet (Lasix) Take one tab by mouth on Thursday 03/29 and Friday 03/30 in addition to the routine 20 mg daily dose. (Total daily dose for Thursday 03/29 and Friday 03/30 will be 40 mg). 2 Tablet 3 Gabapentin 300 MG Oral Capsule (Neurontin) TAKE 1 CAPSULE BY MOUTH THREE TIMES DAILY AT 8AM,4PM ANDBEDTIME *PAIN* 84 Capsule 5 Glimepiride 1 MG Oral Tablet Take 1 Tablet by mouth in the morning. 30 Tablet 5 guaiFENesin 100 MG/5ML Oral Syrup (Robitussin) Take by mouth 10 mL as needed in the morning AND 10 mL as needed at noon AND 10 mL as needed in the evening for Cough. 120 mL 0 guaiFENesin ER 600 MG Oral Tablet Extended Release 12 Hour (Mucinex) Take 1 Tablet by mouth in the morning and 1 Tablet before bedtime. 60 Tablet 5 Incontinence Brief Large USE DIRECTED FOR INCONTINENCE and throughout the day program 90 Each 5 Incruse Ellipta 62.5 MCG/ACT Inhalation Aerosol Powder Breath Activated (umeclidinium Caney) Inhale 1 Puff by mouth in the morning. 30 Each 11 Loperamide HCl 2 MG Oral Tablet (Immodium (A-D)) Take 1 Tablet by mouth 3 times a day as needed forDiarrhea. 30 Tablet 0 Loratadine 10 MG Oral Tablet (Claritin) TAKE ONE TABLET BY MOUTH ONCE DAILY FOR ALLERGIES 28 Tablet5 Magnesium 400 MG Oral Tablet Take 1 Tablet by mouth in the morning and 1 Tablet in the evening. 100Tablet 8 Magnesium Oxide -Mg Supplement 400 (240 Mg) MG Oral Tablet (Mag-Ox) TAKE 1 TABLET BY MOUTH TWICE DAILY IN THE MORNING AND IN THE EVENING FOR SUPPLEMENT 56 Tablet 5 metFORMIN HCl 1000 MG Oral Tablet (Glucophage) TAKE 1 TABLET BY MOUTH TWICE DAILY WITH MEALS DM 56 Tablet 5 Metoprolol Tartrate 25 MG Oral Tablet (Lopressor) TAKE 1/2 TABLET (12.5MG) BY MOUTH TWICE DAILY FORHTN 90 Tablet 3 Omeprazole 20 MG Oral Capsule Delayed Release (PriLOSEC) TAKE ONE CAPSULE BY MOUTH ONCE DAILY FOR GERD 90 Capsule 1 [employer] Delica Plus [id number] Please check patients blood sugar before lunch on days that he attends the day program 400 Each 3 [employer] Ultra In Vitro Strip (Glucose Blood) Please check patients blood sugar before lunch on days that he attends the day program 400 Strip 3 [email or web address] SYSTEM W/DEVICE KIT Use up to four times a day as directed 1 Kit 0 OXcarbazepine 150 MG Oral Tablet (Trileptal) Take 1 Tablet by mouth in the morning and 1 Tablet before bedtime. Pentoxifylline ER 400 MG Oral Tablet Extended Release (TRENtal) TAKE ONE TABLET BY MOUTH THREE TIMES DAILY *CIRCULATION* 270 Tablet 1 Pepto-Bismol 262 MG Oral Tablet (Bismuth Subsalicylate) Take 1 by mouth every 12 hours as needed for upset stomach 60 Tablet 5 Petroleum Jelly 100 % External Gel Apply topically to affected area 2 times a day. Apply to arms, chest and areas of scratches until feels better then change in once a day 212 g 5 Polyethylene Glycol 3350 17 GM/SCOOP Oral Powder (MiraLax) Take 17 g by mouth as needed for Constipation. Dissolve one heaping tablespoon in 8 ounces of water or juice.Give every 72 hours if no bowelmovement 507 g 8 Prevail Breezers XL USE DIRECTED FOR INCONTINENCE 60 Each 5 ProAir HFA 108 (90 Base) MCG/ACT Inhalation Aerosol Solution Inhale by mouth 2 Puffs every 6 hours as needed for Wheezing. 8.5 g 5 Probiotic Acidophilus BioBeads Oral Capsule Take 1 Capsule by mouth in the morning and 1 Capsule atnoon and 1 Capsule in the evening. Take with meals. 100 Capsule 3 Refresh Tears 0.5 % Ophthalmic Solution risperiDONE 2 MG Oral Tablet (RisperDAL) Take 1 Tablet by mouth in the morning and 1 Tablet at noonand 1 Tablet before bedtime. Simvastatin 40 MG Oral Tablet (Zocor) TAKE ONE TABLET BY MOUTH EVERY EVENING *CHOLESTEROL* 90 Tablet 1 Tamsulosin HCl 0.4 MG Oral Capsule (Flomax) Take 1 Capsule by mouth in the morning. 90 Capsule 3 Testosterone 20.25 MG/ACT (1.62%) Transdermal Gel (AndroGel Pump) APPLY ONE PUMP TO THE SHOULDER DAILY.To clean, dry, unbroken skin on the shoulders or upper arms. 75 g 0 Theravim-M Oral Tablet TAKE ONE TABLET BY MOUTH ONCE DAILY 90 Tablet 1 traZODone (DESYREL) 50 MG Tablet TAKE 1 TABLET BY MOUTH ONCE DAILY AT 8PM *MOOD* 28 Tab 5 Triamcinolone Acetonide 0.1 % External Ointment (Aristocort) Apply topically to affected area 2 times a day. To affected area for 4 weeks or until healed 80 g 1 Triple Antibiotic 3.5-400-5000 External Ointment Apply topically to affected area as needed for Wound Care. Apply to * minor cuts / scrapes 28.4 g 5 Underpads Extra Large Use as directed for incontinence. 90 Each 11 Underpads Large Use as directed for incontinence 90 Each 5 Current Facility-Administered Medications Medication Dose Route Frequency Provider Last Rate Last Admin Zinc Oxide (Desitin) 40 % paste Topical BID(AM/PM) Andrew Montague III, MD Zinc Oxide (Desitin/Kevon) 40 % ointment Topical Daily(AM) Andrew Montague III, MD Review of patient's allergies indicates: Allergen Reactions Aspirin Cephalexin Unknown Cephalexin Cephalosporins Unknown Corticosteroids Unknown MEDROL PACK Haldol [Haloperidol] Lactose Intolerance [Tilactase] Diarrhea Levaquin [Levofloxacin] QUESTIONABLE allergy- rash AFTER finishing course of abx on chest Shellfish Allergy As per HPI. Others reviewed and noted to be negative Physical examination: Filed Vitals: 08/27/23 1141 BP: 133/81 Pulse: 77 Weight: 65.1 kg (143 lb 9.6 oz) Height: 1.753 m (5' 9") Body mass index is 21.21 kg/m. Wt Readings from Last 10 Encounters: 08/27/23 65.1 kg (143 lb 9.6 oz) 07/25/23 65.8 kg (145 lb) 07/16/23 66.6 kg (146 lb 12.8 oz) 05/22/23 64.9 kg (143 lb) 05/14/23 64.4 kg (142 lb) 04/14/23 65.2 kg (143 lb 12.8 oz) 04/03/23 64.9 kg (143 lb) 02/07/23 67 kg (147 lb 12.8 oz) 12/13/22 67.1 kg (148 lb) 11/05/22 67 kg (147 lb 9.6 oz) Constitutional: Appears older than his stated age. In wheelchair. Noted to have temporal wasting. Suspected to have microcephaly. Eyes: No Periorbital puffiness, chemosis, diplopia on conjugate gaze.No jaundice noted. Neck: Thyroid appears normal in size. No palpable cervical lymphadenopathy. Skin: Intact without rash or ulcers. Heat conduction noted to be normal. No facial hair noted. Cardiovascular: Murmur along right parasternal border noted. Minimal lower extremity edema noted. Respiratory:Patient is able to speak in complete sentences. No wheeze rhonchi or crackles noted on auscultation. Musculoskeletal: Severe kyphosis noted. Neuro: Minimally verbal. No focal motor or sensory deficits noted. Psych: Patient makes goodeye contact. Endocrine: No fine tremors in hands, sweaty palms, dorsocervical fat pads, hyperpigmentation, or acanthosis nigricans. Records: I have reviewed available records in [facility] including provider notes, labs and imaging and summarizedmy findings in HPI. 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 Assessment & Plan Hypogonadism in male (Primary) Comments and plan: Patient is followed in endocrinology for evaluation and management of severe male hypogonadism in setting of severe osteoporosis with history of fragility fractures, despite being on Prolia for past 6 years. Risk factors for osteoporosis include hypogonadism, low BMI, medicationsincluding oxcarbazepine, PPI, lasix, steroid inhalers and medical conditions including diabetes. He himself is limited historian on account of underlying intellectual disability. Notable points on history and Observations: Loss of muscle mass Loss of androgenic hairs Fatigue, mood irritability Severe osteoporosis Anemia No documented history of ASCVD or BPH or prostate cancer. Prostate calcifications were noted on CT pelvis. He is noted to be on Flomax and Finasteride. PSA noted to be very low. He is on high dose of risperidone ( 6 mg daily) which is commonly associated with hyperprolactinemia which can lead to hypogonadotropic hypogonadism (secondary hypogonadism) . Lab work showed elevated prolactin. MRI Sella ( with limitations) did not show any obvious pituitary adenoma. FSH/LH noted to be significantly elevated and consistent with primary hypogonadism. Since last visit, workup confirms diagnosis of Klinefelter syndrome with [id number] karyotype. Testicular ultrasound showed hypoplastic/absent testes. Given sever hypogonadism, osteoporosis and anemia, he was considered to be a good candidate for TRT(Low dose to keep testosterone level in low normal range). Unfortunately, he was unable to tolerateeven very low-dose of TRT due to changes in his mood and changes in his sexual behavior. TRT has been discontinued. In order to maintain his bone health, I will suggest to continue using once every six-month Prolia along with calcium and vitamin-D supplements. I have reviewed his DEXA scan from 02/2023. Stable BMDcompared to 2020 though still in osteoporotic range at hip with high-risk of fracture. As osteoporosis is being managed by Rheumatology, diabetes is managed by primary care provider and as he is not a good candidate for testosterone replacement, endocrine follow-up is not needed unlessthere is change in clinical status. Primary care provider to consider revising his antipsychotics (if appropriate) regimen given hyperprolactinemia. Type 2 diabetes mellitus with diabetic polyneuropathy, without long-term current use of insulin ([facility]) Comments and plan: Patient has longstanding history of type 2 diabetes mellitus which is complicated with diabetic peripheral neuropathy. Diabetes has deteriorated since last visit with last A1c of 8.0%. He has been switched to Trulicity from Januvia. Continue to take metformin and Amaryl. Target A1c for this patient is 7.5% or less given his underlying neurological issues. Management per primary care provider. I spent a total of 30-39 minutes (exact time 36 mins) on the date of service in preparation, delivery, and documentation of the care provided to Isai Kendall excluding any time spent in the performance of separately billed services. This chart was completed in part utilizing [employer] Voice Recognition Software. Grammatical errors, random word insertions, pronoun errors, and incomplete sentences are an occasional consequence of this system due to software limitations, ambient noise, and hardware issues. Any formal questions or concerns about the content, text, or information contained within the body of this dictation should be directly addressed to the provider for clarification. Rogers Dwyer MD Endocrinology Physician [address], [place] [address] CC:Andrew Montague III, MD documented in this encounter Nursing Notes * Jenifer Ozuna LPN - 08/27/2023 11:32 AM EDT Patient was instructed to not get up on the exam table/exam chair until directed and assisted by their provider; patient is to remain seated in the chair/ wheelchair/ exam table/ exam chair for fall prevention and safety reasons. Patient is aware to have assistance to step down off exam table/exam chair with personnel. Patient voiced full comprehension of instructions. Jenifer Ozuna LPN documented in this encounter Plan of Treatment Upcoming Encounters Date Type Department Care Team (Late st Contact Info) Description 08/30/2023 1:00 PM EDT Office Visit Family Practice [facility] [address] [place] [id number] Andrew Montague III, MD [address] [place] [address] [place] [id number] 09/09/2023 2:00 PM EST Office Visit [place]ology [address] [place] [address] Austin Saravia CRNP [facility] [place] [address] 09/29/2023 1:00 PM EST Office Visit Cardiology, [facility] [address] [address] Natasha Avery CRNP [address] [place] [address] 11/26/2023 10:15 AM EST Imaging Radiology [facility] 1st Floor, [place] [address] [place] [address] [address] 12/11/2023 10:00 AM EST Imaging Radiology [facility] [address] [place] [address] 12/23/2023 11:30 AM EST Telemedicine Urology [facility] [address] [place] [address] [place] [address] Joseph Doty MD [address] [place] [address] [place] [address] 7, Telemed [facility] Ex Rm [address] [place] [id number] Scheduled Procedures Name Priority Associated Diagnoses Date/Ti me COLONOSCOPY FLEXIBLE PROXIMAL DIAGNOSTIC Recall History of colon polyps Health Maintenance Due Date Last Done Comments Alpha-1 Antitrypsin 1972 Albumin/Creatinine Ratio 03/19/2023 022, 04/26/2020, 05/20/2019, Additional history exists Diabetic Eye Exam 05/31/2023 05/31/2022, , 05/28/2019, Additional history exists COVID-19 Vaccine ( season) 2023 09/13/2022, 09/11/2021, 12/20/2020, Additional history exists Depression Screening 07/09/2023 07/09/2022 B-12 08/01/2023 08/01/2022, 08/0 10/2021, 10/04/2021, Additional history exists HbA1c 11/22/2023 05/22/2023, 0706/2023, 08/16/2022, Additional history exists GFR 07/09/2024 07/09/2023, 04/27, 05/14/2023, Additional history exists Diabetic Foot Exam 07/16/2024 07/16/2023, 0 07/09/2022, 11/08/2020, Additional history exists O2 ASSESSMENT COMPLETED IN PAST YEAR FOR COPD 07/25/2024 07/25/2023 DXA Scan 03/11/2025 03/11/2023, 04/2021, 01/18/2019, Additional history exists COLONOSCOPY-EVERY 5 [...] D LEVEL ONCE IN A LIFETIME-USE SMARTSET# [id number] Completed 09/26/2022, 08/01/2022, 01/03/2021, Additional history exists LUNG CANCER SCREENING - USE SMARTSET [id number] Completed 11/22/2022, 11/20/2021, 09/04/2020, Additional history exists [...] as of this encounter Visit Diagnoses Diagnosis Primary male hypogonadism- Primary Other testicular hypofunction Hyperprolactinemia (HCC) Other and unspecified anterior pituitary hyperfunction Age-related osteoporosis without current pathological fracture Senile osteoporosis Type 2 diabetes mellitus with diabetic polyneuropathy, without long-term current use of insulin (HCC) Klinefelter syndrome Klinefelter's syndrome documented in this encounter Care Teams Compounding Technician Relationship Specialty Start Date End Date Andrew Mnotague III, MD [address] [facility] [place] [address] PCP - General 12/22/01 documented as of this encounter
--- OUTSIDE RECORDS SUMMARY | 2023-09-16 03:07 | External Medical Summary | Summary of Care ---
Author Name Unknown Organization [facility] Address [address] [place] [address] Phone [phone] Care Team Providers Care Android Ios Developer Name Role Phone Clari ORELLANA MD, Andrew Lane Primary Care Provider [phone] Reason for Visit * Reason Comments Follow Up Encounter Details Date Type Department Care Team ([facility] st Contact Info) Description 08/30/2023 1:00 PM EDT Office Visit Family Practice [facility] [address] [place] [address] Andrew Montague III, MD [address] [place] [address] Self-injurious behavior*; Type 2 diabetes mellitus with hemoglobin A1c goal of less than 7.5% ([facility]) Allergies Active Allergy Reactions Criticality Noted Date Comments Aspirin 04/06/2015 Cephalexin Unknown 11/07/2010 Cephalexin 05/27/2022 Cephalosporins Unknown 01/14/2001 Corticosteroids Unknown 01/14/2001 MEDROL PACK Haloperidol 10/25/2021 Tilactase Diarrhea 05/19/2018 Levofloxacin 07/28/2020 QUESTIONABLE allergy- rash AFTER finishing course of abx on chest Shellfish Allergy 04/06/2015 documented as of this encounter (statuses as of 08/30/2023) Medications Medication Sig Dispensed Refills Start Date End Date Status Speed Commerce SYSTEM W/DEVICE KITIndications:D M type 2, goal [...] for incontinence 90 Each 5 1 Active ProAir HFA 108 (90 Base) MCG/ACT [...] in once a day 212 g 5 3 Active diphenhydrAMINE HCl 12.5 MG Oral [...] Tablet 5 3 Active OneTouch Delica Plus [id number] ions:Type 2 diabetes mellitus with hemoglobin A1c goal of less than 7.0% ([facility]) Please check patients blood sugar before lunch on days that he attends the day program 400 Each 3 3 Active Loperamide HCl 2 MG Oral Tablet (Immodium (A-D)) Take 1 Tablet by mouth 3 times a day as needed for Diarrhea. 30 Tablet 0 3 Active Incruse Ellipta 62.5 MCG/ACT Inhalation Aerosol Powder Breath Activated (umeclidinium Phoenix) Inhale 1 Puff by mouth in the morning. 30 Each 11 3 Active Triamcinolone Acetonide 0.1 % External Ointment (Aristocort)Jo cations:Dermatit is,Pruritus Apply topically to affected area 2 times [...] Active OneTouch Ultra In Vitro Strip (Glucose Blood)Indication s:DM type 2, not at goal (HCC) Please check patients blood sugar before lunch on days that he attends the day program 400 Strip 3 3 Active Glimepiride 1 MG Oral Tablet [...] FOR GERD 90 Capsule 1 3 Active QUEtiapine Fumarate 100 MG Oral Tablet (SEROquel) Take 1 Tablet by mouth in the morning and 1 Tablet at noon and 1 Tablet before bedtime. 90 Tablet 3 Active Sertraline HCl 50 MG Oral Tablet (Zoloft) Take 1 Tablet by mouth in the morning. 30 Tablet 11 3 Active clonazePAM 0.5 MG Oral Tablet (KlonoPIN) At 0800 and 4 pm 8 pm 45 Tablet 5 3 Active Trulicity 3 MG/0.5ML Subcutaneous Solution Pen-injector (Dulaglutide) Inject 3 mg under the skin once a week. 2 mL 8 3 Active Escitalopram Oxalate 20 MG Oral TabletIndication s:in am Take 1 Tablet by mouth in the morning. 30 Tab 5 1 08/30/20 23 Discontinued(Me dication/Dose Changed) clonazePAM 0.5 MG Oral Tablet Take 1 Tablet by mouth in the morning and 1 Tablet before bedtime. At 0800 and 4 pm.. 30 Tablet 5 2 08/30/20 23 Discontinued(Re fill) risperiDONE 2 MG Oral Tablet (RisperDAL) Take 1 Tablet by mouth in the morning and 1 Tablet at noon and 1 Tablet before bedtime. 0 2 08/30/20 23 Discontinued(Me dication/Dose Changed) Amoxicillin-Pot Clavulanate 875-125 MG Oral Tablet 1 Tablet. 0 3 08/30/20 23 Discontinued(Me dication List Clean Up) Dulaglutide 1.5 MG/0.5ML Subcutaneous Solution Pen-injector ([facility])Indic ations:Type 2 diabetes mellitus with diabetic mononeuropathy, without long-term current use of insulin ([facility]) Inject 1.5 mg under the skin once a week. 2 mL 11 3 08/30/20 23 Discontinued Hospital, Clinic, or Other Facility Administered Medication Ordered Dose Route Frequency Start Date End Date Status Zinc Oxide (Desitin/Kevon) 40 % ointmentIndications:Skin ulcer of sacrum, unspecified ulcer stage ([facility]) TOP Daily(AM) 04/08/2022 Active Zinc Oxide (Desitin) 40 % pasteIndications:Open bite of buttock, unspecified laterality, initial encounter TOP BID (.AM/PM) 11/05/2022 Active documented as of this encounter (statuses as of 08/30/2023) Active Problems Problem Noted Date Diagnosed Date [...] as of this encounter (statuses as of 08/30/2023) Resolved Problems Problem Noted Date Diagnosed Date [...] Taxonomy. ACTIVE CASE MANAGEMENT Shanthi Dawson RN [phone] 05/20/2008 08/13/2010 Type 2 diabetes mellitus wit [...] as of this encounter (statuses as of 08/30/2023) Immunizations Name Administration Dates Next Due COVID-19 mRNA, LNP-s, No Pre serve, 2-Dose Series ([employer]) 09/11/2021,12/20/2020,11/29/2020 Covid-19, Mrna, Lnp-s, Pf, B ivalent, 30 Mcg, IM, 12 yrs and above ([employer]) 09/13/2022 H1N1 2009 Influenza, IM 09/04/2009 Hepatitis [...] 12/25/2010 Smokeless Tobacco: Never Tobacco Cessation:Counseling Given: Yes Comments:04/2010 - unsure total amount of years [...] Sign Reading Time Taken Comments Blood Pressure 128/74 08/30/2023 1:03 PM EDT Pulse 80 08/30/2023 1:03 PM EDT Temperature 36.2 C (97.2 F) 08/30/2023 1:03 PM ED T Respiratory Rate 16 08/30/2023 1:03 PM EDT Oxygen Saturation - - Inhaled Oxygen Concentration - - Weight 65 kg (143 lb 6.4 oz) 08/30/2023 1:03 PM EDT Height 175.3 cm (5' 9") 08/30/2023 1:03 PM EDT Body Mass Index 21.18 08/30/2023 1:03 PM EDT documented in this encounter Progress Notes * Andrew Montague III, MD - 08/30/2023 1:37 PM EDT Subjective: Isai Kendall is a 68 year old male. Chief Complaint Patient presents with Follow Up HPI: Follow-up has been punching himself in the face scratching ask a doc message has been sent beginning of the year this is reviewed also last A1c was 8.0 Trulicity to be increased PMH: Patient Active Problem List Diagnosis Code chronic stasis dermatitis L57.0 Esophageal reflux K21.9 ADVANCE DIRECTIVE INFORMATION Mitral valve disorder I05.9 Intellectual disability F79 Venous insufficiency I87.2 Temporomandibular joint disorders, unspecified M26.609 Sensorineural hearing loss, bilateral H90.3 Chronic otitis externa H60.60 Type 2 diabetes mellitus with hemoglobin A1c goal of less than 7.0% ([facility]) E11.9 Obstructive sleep apnea G47.33 Hearing loss H91.90 History of epistaxis Z87.898 Cataract H26.9 Senile osteoporosis M81.0 Type 2 diabetes mellitus with diabetic dermatitis ([facility]) E11.620 Diabetic complication ([facility]) E11.8 Peripheral vascular disease ([facility]) I73.9 Diabetes mellitus with peripheral angiopathy ([facility]) E11.51 Thrombocytopenia (HCC) D69.6 Protein-calorie malnutrition (HCC) E46 Protein-calorie malnutrition (HCC) E46 PAF (paroxysmal atrial fibrillation) ([facility]) I48.0 Dyslipidemia E78.5 COPD, group A, by GOLD 2017 classification ([facility]) J44.9 Cerebral palsy ([facility]) G80.9 Type 2 diabetes mellitus with diabetic polyneuropathy, without long-term current use of insulin ([facility]) E11.42 Hyperprolactinemia ([facility]) E22.1 Primary male hypogonadism E29.1 Current Outpatient Medications Medication Sig Dispense Refill traZODone (DESYREL) 50 MG Tablet TAKE 1 TABLET BY MOUTH ONCE DAILY AT 8PM *MOOD* 28 Tab 5 ProAir HFA 108 (90 Base) MCG/ACT Inhalation Aerosol Solution Inhale by mouth 2 Puffs every 6 hours as needed for Wheezing. 8.5 g 5 OXcarbazepine 150 MG Oral Tablet (Trileptal) Take 1 Tablet by mouth in the morning and 1 Tablet before bedtime. Acetaminophen 325 MG Oral Tablet (Tylenol) Take by mouth 2 Tablets every 4 hours as needed for Fever >38C(100.5F) or Pain, Moderate. Do not exceed 4G of Tylenol in a 24 hour period. 100 Tablet 1 Boost Oral Liquid Take 237 mL by mouth in the morning and 237 mL before bedtime. 90 Each 3 Magnesium 400 MG Oral Tablet Take 1 Tablet by mouth in the morning and 1 Tablet in the evening. 100Tablet 8 Finasteride 5 MG Oral Tablet (Proscar) Take 1 Tablet by mouth in the morning. 90 Tablet 3 Tamsulosin HCl 0.4 MG Oral Capsule (Flomax) Take 1 Capsule by mouth in the morning. 90 Capsule 3 Arthritis Pain Relief 650 MG Oral Tablet Extended Release (Acetaminophen ER) TAKE 2 TABLET BY MOUTHIN THE MORNING AND BEFORE BEDTIME FOR PAIN *MAX 3GMS APAP IN 24HRS* 112 Tablet 5 Furosemide 20 MG Oral Tablet (Lasix) Take one tab by mouth on Thursday 03/29 and Friday 03/30 in addition to the routine 20 mg daily dose. (Total daily dose for Thursday 03/29 and Friday 03/30 will be 40 mg). 2 Tablet 3 Polyethylene Glycol 3350 17 GM/SCOOP Oral Powder (MiraLax) Take 17 g by mouth as needed for Constipation. Dissolve one heaping tablespoon in 8 ounces of water or juice.Give every 72 hours if no bowelmovement 507 g 8 metFORMIN HCl 1000 MG Oral Tablet (Glucophage) TAKE 1 TABLET BY MOUTH TWICE DAILY WITH MEALS DM 56 Tablet 5 Loratadine 10 MG Oral Tablet (Claritin) TAKE ONE TABLET BY MOUTH ONCE DAILY FOR ALLERGIES 28 Tablet5 Gabapentin 300 MG Oral Capsule (Neurontin) TAKE 1 CAPSULE BY MOUTH THREE TIMES DAILY AT 8AM,4PM ANDBEDTIME *PAIN* 84 Capsule 5 diphenhydrAMINE HCl 12.5 MG Oral Tablet Chewable (Benadryl Allergy Childrens) Take 12.5 mg by mouthin the morning and 12.5 mg in the evening. For 2 weeks then as needed for itching. 30 Tablet 2 D3-1000 25 MCG (1000 UT) Oral Capsule (Cholecalciferol) TAKE ONE CAPSULE BY MOUTH DAILY. *SUPPLEMENT* 28 Capsule 5 Metoprolol Tartrate 25 MG Oral Tablet (Lopressor) TAKE 1/2 TABLET (12.5MG) BY MOUTH TWICE DAILY FORHTN 90 Tablet 3 Loperamide HCl 2 MG Oral Tablet (Immodium (A-D)) Take 1 Tablet by mouth 3 times a day as needed forDiarrhea. 30 Tablet 0 Incruse Ellipta 62.5 MCG/ACT Inhalation Aerosol Powder Breath Activated (umeclidinium Phoenix) Inhale 1 Puff by mouth in the morning. 30 Each 11 Probiotic Acidophilus BioBeads Oral Capsule Take 1 Capsule by mouth in the morning and 1 Capsule atnoon and 1 Capsule in the evening. Take with meals. 100 Capsule 3 Glimepiride 1 MG Oral Tablet Take 1 Tablet by mouth in the morning. 30 Tablet 5 Pentoxifylline ER 400 MG Oral Tablet Extended Release (TRENtal) TAKE ONE TABLET BY MOUTH THREE TIMES DAILY *CIRCULATION* 270 Tablet 1 Simvastatin 40 MG Oral Tablet (Zocor) TAKE ONE TABLET BY MOUTH EVERY EVENING *CHOLESTEROL* 90 Tablet 1 Omeprazole 20 MG Oral Capsule Delayed Release (PriLOSEC) TAKE ONE CAPSULE BY MOUTH ONCE DAILY FOR GERD 90 Capsule 1 QUEtiapine Fumarate 100 MG Oral Tablet (SEROquel) Take 1 Tablet by mouth in the morning and 1 Tablet at noon and 1 Tablet before bedtime. 90 Tablet 11 Sertraline HCl 50 MG Oral Tablet (Zoloft) Take 1 Tablet by mouth in the morning. 30 Tablet 11 clonazePAM 0.5 MG Oral Tablet (KlonoPIN) At 0800 and 4 pm 8 pm 45 Tablet 5 Trulicity 3 MG/0.5ML Subcutaneous Solution Pen-injector (Dulaglutide) Inject 3 mg under the skin once a week. 2 mL 8 Speed [employer] SYSTEM W/DEVICE KIT Use up to four times a day as directed 1 Kit 0 denosumab (PROLIA) 60 MG/ML injection Inject 60 mg under the skin. 1 inj every 6 mo. Underpads Large Use as directed for incontinence 90 Each 5 Triple Antibiotic 3.5-400-5000 External Ointment Apply topically to affected area as needed for Wound Care. Apply to * minor cuts / scrapes 28.4 g 5 guaiFENesin 100 MG/5ML Oral Syrup (Robitussin) Take by mouth 10 mL as needed in the morning AND 10 mL as needed at noon AND 10 mL as needed in the evening for Cough. 120 mL 0 Theravim-M Oral Tablet TAKE ONE TABLET BY MOUTH ONCE DAILY 90 Tablet 1 Calmoseptine 0.44-20.6 % External Ointment (Menthol-Zinc Oxide) Apply topically to affected area atbedtime as needed for Irritation or Other (Skin breakdown). Apply to buttocks/sacrum 20 g 3 Prevail Breezers XL USE DIRECTED FOR INCONTINENCE 60 Each 5 Pepto-Bismol 262 MG Oral Tablet (Bismuth Subsalicylate) Take 1 by mouth every 12 hours as needed for upset stomach 60 Tablet 5 Refresh Tears 0.5 % Ophthalmic Solution DIURETIC TITRATION PLAN If no improvement on day 3, contact heart failure managing provider. 1 Each0 Underpads Extra Large Use as directed for incontinence. 90 Each 11 Magnesium Oxide -Mg Supplement 400 (240 Mg) MG Oral Tablet (Mag-Ox) TAKE 1 TABLET BY MOUTH TWICE DAILY IN THE MORNING AND IN THE EVENING FOR SUPPLEMENT 56 Tablet 5 Petroleum Jelly 100 % External Gel Apply topically to affected area 2 times a day. Apply to arms, chest and areas of scratches until feels better then change in once a day 212 g 5 guaiFENesin ER 600 MG Oral Tablet Extended Release 12 Hour (Mucinex) Take 1 Tablet by mouth in the morning and 1 Tablet before bedtime. 60 Tablet 5 OneTouch Delica Plus [id number] Please check patients blood sugar before lunch on days that he attends the day program 400 Each 3 Triamcinolone Acetonide 0.1 % External Ointment (Aristocort) Apply topically to affected area 2 times a day. To affected area for 4 weeks or until healed 80 g 1 Incontinence Brief Large USE DIRECTED FOR INCONTINENCE and throughout the day program 90 Each 5 OneTouch Ultra In Vitro Strip (Glucose Blood) Please check patients blood sugar before lunch on days that he attends the day program 400 Strip 3 Current Facility-Administered Medications Medication Dose Route Frequency Provider Last Rate Last Admin Zinc Oxide (Desitin/Kevon) 40 % ointment Topical Daily(AM) Andrew Montague III, MD Zinc Oxide (Desitin) 40 % paste Topical BID(AM/PM) Andrew Montague III, MD Review of patient's allergies indicates: Allergen Reactions Aspirin Cephalexin Unknown Cephalexin Cephalosporins Unknown Corticosteroids Unknown MEDROL PACK Haldol [Haloperidol] Lactose Intolerance [Tilactase] Diarrhea Levaquin [Levofloxacin] QUESTIONABLE allergy- rash AFTER finishing course of abx on chest Shellfish Allergy Past Medical History: Diagnosis Date Acute pancreatitis atrophie mumtaz 05/27 legs chronic stasis dermatitis 05/27 legs Closed fracture of pelvis (HCC) Developmental disorder Deviated nasal septum DM type 2, goal A1c below 7 Gout Mitral valve disorder Mitral Valve Prolapse Moderate intellectual disabilities Other acute otitis externa Other specified gastritis without mention of hemorrhage 05/10/08 moderate chronic Phlebitis and thrombophlebitis of other deep vessels of lower extremities previous stasis ulcers 05/27 legs Temporomandibular joint disorders, unspecified Tobacco use disorder 30+ pack years Venous insufficiency Past Surgical History: Procedure Laterality Date CATARACT SURGERY,COMPLEX Left 09/17/2021 CATARACT SURGERY,COMPLEX Right 10/29/2021 COLONOSCOPY, DIAGNOSTIC (RECTUM) 12/19/2015 adenomatous polyps, repeat 1 yr/[facility] COLONOSCOPY, DIAGNOSTIC (RECTUM) 01/29/2017 adenomatous polyps, repeat 5 yrs/[facility] COLONOSCOPY, DIAGNOSTIC (RECTUM) 02/21/2022 normal, repeat 5 yrs / COLONOSCOPY FLEXIBLE PROXIMAL DIAGNOSTIC performed by Jessica Nuno DO at ENDOSCOPY [facility] EGD, FLEXIBLE, DIAGNOSTIC 01/29/2017 gastritis/[facility] EGD, FLEXIBLE, DIAGNOSTIC 02/21/2022 mild gastric irriation on bx / ESOPHAGOGASTRODUODENOSCOPY (EGD), FLEXIBLE, TRANSORAL, DIAGNOSTIC performed by Jessica Nuno DO at ENDOSCOPY [facility] EGD, FLEXIBLE, W/BIOPSY 05/10/2008 mod chronic inflammation FRAGMENT KIDNEY STONE BY SHOCK WAVE 11/27/2005 Lithotripsy (ESWL) rt ureteroscopic laser INSERT URETERAL SUPPORT 11/27/2005 stent placed MA OPEN TREATMENT RADIAL SHAFT FRACTURE Left 11/28/2021 REMOVE GALLBLADDER VEIN FILTER PLACEMENT 02/1998 Objective: The patient is a 68 year old male BP 128/74 | Pulse 80 | Temp 36.2 C (97.2 F) | Resp 16 | Ht 1.753 m (5' 9") | Wt 65 kg (143 lb 6.4 oz) | BMI 21.18 kg/m | BSA 1.78 m General: alert Heart: regular rate & rhythm, no murmur, and no gallops ASSESSMENT: Z72.89 Self-injurious behavior (primary encounter diagnosis) E11.9 Type 2 diabetes mellitus with hemoglobin A1c goal of less than 7.5% ([facility]) PLAN: Discussed caregivers will discontinue Lexapro begin sertraline discontinue Risperdal begin Quetapine increase clonazepam to 3 times daily call if problems Follow up in 1 month(s). Andrew Montague III, MD documented in this encounter Nursing Notes * Clau Hernandez LPN - 08/30/2023 1:03 PM EDT Problems with behavior, scratching himself and punching himself. documented in this encounter Plan of Treatment Upcoming Encounters Date Type Department Care Team (Late st Contact Info) Description 09/09/2023 2:00 PM EST Office Visit Rheumatology [facility] [address] [facility] [place] [address] Austin Saravia CRNP [facility] [place] [address] 09/29/2023 11:00 AM EST [facility] [address] [place] [address] Shayna Lea PA-C [address] [place] [address] 09/29/2023 1:00 PM EST Office Visit Cardiology, [facility] [address] [facility] [place] [address] Natasha Avery CRNP [address] [place] [address] 11/26/2023 10:15 AM EST Imaging Radiology [facility] 1st Floor, [place] [address] [facility] [place] [address] 12/11/2023 10:00 AM EST Imaging Radiology [facility] [address] [facility] [place] [address] 12/23/2023 11:30 AM EST Telemedicine Urology Hernan Calhoun [address] [place] [address] Joseph Doty MD [address] [place] [address] 7, Telemed [facility] Urology Ex Rm [address] [place] [address] Scheduled Procedures Name Priority Associated Diagnoses Date/Ti [...] D LEVEL ONCE IN A LIFETIME-USE SMARTSET# [id number] Completed 09/26/2022, 08/01/2022, 01/03/2021, Additional history exists LUNG CANCER SCREENING - USE SMARTSET [id number] Completed 11/22/2022, 11/20/2021, 09/04/2020, Additional history exists [...] as of this encounter Visit Diagnoses Diagnosis Self-injurious behavior- Primary Unspecified nonpsychotic mental disorder Type 2 diabetes mellitus with hemoglobin A1c goal of less than 7.5% (HCC) documented in this encounter Care Teams Android Ios Developer Relationship Specialty Start Date End Date Andrew Montague III, MD [address] [place] [address] PCP - General 12/22/01 documented as of this encounter
--- OUTSIDE RECORDS SUMMARY | 2023-09-16 03:07 | External Medical Summary | Summary of Care ---
Author Name Unknown Organization [facility] Address [address] [place] [address] Phone [phone] Care Team Providers Care Design Engineer Name Role Phone Clari ORELLANA MD, Andrew Lane Primary Care Provider [phone] Reason for Visit * Reason Onset Date Comments Rheum Follow Up Prolia Medication Administration 09/09/2023 Prolia Encounter Details Date Type Department Care Team ([facility] st Contact Info) Description 09/09/2023 2:00 PM EST Office Visit Rheumatology [address] [address] Austin Saravia CRNP [address] [place] [id number] Senile osteoporosis* Allergies Active Allergy Reactions Criticality Noted Date Comments Aspirin 04/06/2015 Cephalexin Unknown 11/07/2010 Cephalexin 05/27/2022 Cephalosporins Unknown 01/14/2001 Corticosteroids Unknown 01/14/2001 MEDROL PACK Haloperidol 10/25/2021 Tilactase Diarrhea 05/19/2018 Levofloxacin 07/28/2020 QUESTIONABLE allergy- rash AFTER finishing course of abx on chest Shellfish Allergy 04/06/2015 documented as of this encounter (statuses as of 09/10/2023) Medications Medication Sig Dispensed Refills Start Date End Date Status Loopd Via SYSTEM W/DEVICE KITIndications:DM type 2, goal A1c below 7 Use up to four times a day as directed 1 Kit 0 02/14/2011 Active traZODone (DESYREL) 50 MG Tablet TAKE 1 TABLET BY MOUTH ONCE DAILY AT 8PM *MOOD* 28 Tab 5 08/18/2015 Active denosumab (PROLIA) 60 MG/ML injection Inject 60 mg under the skin. 1 inj every 6 mo. 0 Active Underpads LargeIndications:Ur inary incontinence Use as directed for incontinence 90 Each 5 04/18/2021 Active ProAir HFA 108 (90 Base) MCG/ACT Inhalation Aerosol Solution Inhale by mouth 2 Puffs every 6 hours as needed for Wheezing. 8.5 g 5 03/27/2022 Active OXcarbazepine 150 MG Oral Tablet (Trileptal) Take 1 Tablet by mouth in the morning and 1 Tablet before bedtime. 0 Active Triple Antibiotic 3.5-400-5000 External Ointment Apply topically to affected area as needed for Wound Care. Apply to * minor cuts / scrapes 28.4 g 5 05/28/2022 Active guaiFENesin 100 MG/5ML Oral Syrup (Robitussin) Take by mouth 10 mL as needed in the morning AND 10 mL as needed at noon AND 10 mL as needed in the evening for Cough. 120 mL 0 05/29/2022 Active Theravim-M Oral Tablet TAKE ONE TABLET BY MOUTH ONCE DAILY 90 Tablet 1 06/12/2022 Active Calmoseptine 0.44-20.6 % External Ointment (Menthol-Zinc Oxide)Indications:S kin irritation Apply topically to affected area at bedtime as needed for Irritation or Other (Skin breakdown). Apply to buttocks/sacrum 20 g 3 07/10/2022 Active Acetaminophen 325 MG Oral Tablet (Tylenol)Indication s:Inferior pubic ramus fracture, left, with routine healing, subsequent encounter,Closed fracture of multiple pubic rami, left, sequela Take by mouth 2 Tablets every 4 hours as needed for Fever >38C(100.5F) or Pain, Moderate. Do not exceed 4G of Tylenol in a 24 hour period. 100 Tablet 1 07/11/2022 Active Prevail Breezers XL USE DIRECTED FOR INCONTINENCE 60 Each 5 08/16/2022 Active Pepto-Bismol 262 MG Oral Tablet (Bismuth Subsalicylate) Take 1 by mouth every 12 hours as needed for upset stomach 60 Tablet 5 09/30/2022 Active Boost Oral Liquid Take 237 mL by mouth in the morning and 237 mL before bedtime. 90 Each 3 10/24/2022 Active Refresh Tears 0.5 % Ophthalmic Solution 0 09/10/2022 Activ e Magnesium 400 MG Oral Tablet Take 1 Tablet by mouth in the morning and 1 Tablet in the evening. 100 Tablet 8 01/03/2023 Active DIURETIC TITRATION PLAN If no improvement on day 3, contact heart failure managing provider. 1 Each 0 01/28/2023 Active Finasteride 5 MG Oral Tablet (Proscar) Take 1 Tablet by mouth in the morning. 90 Tablet 3 02/21/2023 Active Tamsulosin HCl 0.4 MG Oral Capsule (Flomax) Take 1 Capsule by mouth in the morning. 90 Capsule 3 02/21/2023 Active Arthritis Pain Relief 650 MG Oral Tablet Extended Release (Acetaminophen ER)Indications:Infe rior pubic ramus fracture, left, with routine healing, subsequent encounter,Closed fracture of multiple pubic rami, left, sequela TAKE 2 TABLET BY MOUTH IN THE MORNING AND BEFORE BEDTIME FOR PAIN *MAX 3GMS APAP IN 24HRS* 112 Tablet 5 03/15/2023 Active Furosemide 20 MG Oral Tablet (Lasix) Take one tab by mouth on Thursday 03/29 and Friday 03/30 in addition to the routine 20 mg daily dose. (Total daily dose for Thursday 03/29 and Friday 03/30 will be 40 mg). 2 Tablet 3 04/02/2023 Active Polyethylene Glycol 3350 17 GM/SCOOP Oral Powder (MiraLax) Take 17 g by mouth as needed for Constipation. Dissolve one heaping tablespoon in 8 ounces of water or juice.Give every 72 hours if no bowel movement 507 g 8 04/03/2023 Active Underpads Extra Large Use as directed for incontinence. 90 Each 04/08/2023 Active metFORMIN HCl 1000 MG Oral Tablet (Glucophage) TAKE 1 TABLET BY MOUTH TWICE DAILY WITH MEALS DM 56 Tablet 04/20/2023 Active Loratadine 10 MG Oral Tablet (Claritin) TAKE ONE TABLET BY MOUTH ONCE DAILY FOR ALLERGIES 28 Tablet 5 04/20/2023 Active Gabapentin 300 MG Oral Capsule (Neurontin) TAKE 1 CAPSULE BY MOUTH THREE TIMES DAILY AT 8AM,4PM AND BEDTIME *PAIN* 84 Capsule 5 05/09/2023 Active Magnesium Oxide -Mg Supplement 400 (240 Mg) MG Oral Tablet (Mag-Ox) TAKE 1 TABLET BY MOUTH TWICE DAILY IN THE MORNING AND IN THE EVENING FOR SUPPLEMENT 56 Tablet 5 05/11/2023 Active Petroleum Jelly 100 % External GelIndications:Prur itus Apply topically to affected area 2 times a day. Apply to arms, chest and areas of scratches until feels better then change in once a day 212 g 05/14/2023 Active diphenhydrAMINE HCl 12.5 MG Oral Tablet Chewable (Benadryl Allergy Childrens)Indicatio ns:Pruritus Take 12.5 mg by mouth in the morning and 12.5 mg in the evening. For 2 weeks then as needed for itching. 30 Tablet 2 05/14/2023 Active D3-1000 25 MCG (1000 UT) Oral Capsule (Cholecalciferol) TAKE ONE CAPSULE BY MOUTH DAILY. *SUPPLEMENT* 28 Capsule 5 06/18/2023 Active Metoprolol Tartrate 25 MG Oral Tablet (Lopressor) TAKE 1/2 TABLET (12.5MG) BY MOUTH TWICE DAILY FOR HTN 90 Tablet 3 06/18/2023 Active guaiFENesin ER 600 MG Oral Tablet Extended Release 12 Hour (Mucinex)Indication s:Cough Take 1 Tablet by mouth in the morning and 1 Tablet before bedtime. 60 Tablet 5 06/23/2023 Active OneTouch Delica Plus [id number] s:Type 2 diabetes mellitus with hemoglobin A1c goal of less than 7.0% ([facility]) Please check patients blood sugar before lunch on days that he attends the day program 400 Each 3 07/03/2023 Active Loperamide HCl 2 MG Oral Tablet (Immodium (A-D)) Take 1 Tablet by mouth 3 times a day as needed for Diarrhea. 30 Tablet 0 07/08/2023 Active Incruse Ellipta 62.5 MCG/ACT Inhalation Aerosol Powder Breath Activated (umeclidinium Jelm) Inhale 1 Puff by mouth in the morning. 30 Each 11 07/08/2023 Active Triamcinolone Acetonide 0.1 % External Ointment (Aristocort)Indicat ions:Dermatitis,Pru ritus Apply topically to affected area 2 times a day. To affected area for 4 weeks or until healed 80 g 1 07/11/2023 Active Incontinence Brief Large USE DIRECTED FOR INCONTINENCE and throughout the day program 90 Each 5 07/14/2023 Active Probiotic Acidophilus BioBeads Oral Capsule Take 1 Capsule by mouth in the morning and 1 Capsule at noon and 1 Capsule in the evening. Take with meals. 100 Capsule 3 07/15/2023 Active OneTouch Ultra In Vitro Strip (Glucose Blood)Indications:D M type 2, not at goal ([facility]) Please check patients blood sugar before lunch on days that he attends the day program 400 Strip 3 07/26/2023 Active Glimepiride 1 MG Oral Tablet Take 1 Tablet by mouth in the morning. 30 Tablet 5 08/02/2023 Active Pentoxifylline ER 400 MG Oral Tablet Extended Release (TRENtal) TAKE ONE TABLET BY MOUTH THREE TIMES DAILY *CIRCULATION* 270 Tablet 1 08/07/2023 Active Simvastatin 40 MG Oral Tablet (Zocor) TAKE ONE TABLET BY MOUTH EVERY EVENING *CHOLESTEROL* 90 Tablet 1 08/07/2023 Active Omeprazole 20 MG Oral Capsule Delayed Release (PriLOSEC) TAKE ONE CAPSULE BY MOUTH ONCE DAILY FOR GERD 90 Capsule 1 08/07/2023 Active Sertraline HCl 50 MG Oral Tablet (Zoloft) Take 1 Tablet by mouth in the morning. 30 Tablet 11 08/30/2023 Active clonazePAM 0.5 MG Oral Tablet (KlonoPIN) At 0800 and 4 pm 8 pm 45 Tablet 5 08/30/2023 Active Trulicity 3 MG/0.5ML Subcutaneous Solution Pen-injector (Dulaglutide) Inject 3 mg under the skin once a week. 2 mL 8 08/30/2023 Active QUEtiapine Fumarate 100 MG Oral Tablet (SEROquel) Take 1 tablet by mouth at 8am and 1 tablet at 4pm and 1 tablet at 8pm. 90 Tablet 11 09/02/2023 Active Arexvy 120 MCG/0.5ML Intramuscular Suspension Reconstituted (RSVPreF3 Vac Recomb Adjuvanted) Inject 1 Each into a large muscle once for 1 dose. 1 Each 0 07/25/2023 3 Hospital, Clinic, or Other Facility Administered Medication Ordered Dose Route Frequency Start Date End Date Status Zinc Oxide (Desitin/Kevon) 40 % ointmentIndications:Skin ulcer of sacrum, unspecified ulcer stage ([facility]) TOP Daily(AM) 04/08/2022 Active Zinc Oxide (Desitin) 40 % pasteIndications:Open bite of buttock, unspecified laterality, initial encounter TOP BID (.AM/PM) 11/05/2022 Activ e Denosumab (Prolia) subcut inj 60 mgIndications:Senile osteoporosis 60 mg SC ONCE 09/09/2023 09/09/2023 Ended documented as of this encounter (statuses as of 09/10/2023) Active Problems Problem Noted Date Diagnosed Date [...] as of this encounter (statuses as of 09/10/2023) Resolved Problems Problem Noted Date Diagnosed Date [...] Taxonomy. ACTIVE CASE MANAGEMENT Shanthi Dawson RN [phone] 05/20/2008 08/13/2010 Type 2 diabetes mellitus wit [...] as of this encounter (statuses as of 09/10/2023) Immunizations Name Administration Dates Next Due COVID-19 mRNA, LNP-s, No Pre serve, 2-Dose Series ([facility]) 09/11/2021,12/20/2020,11/29/2020 Covid-19, Mrna, Lnp-s, Pf, B ivalent, 30 Mcg, IM, 12 yrs and above ([facility]) 09/13/2022 H1N1 2009 Influenza, IM 09/04/2009 Hepatitis [...] Sign Reading Time Taken Comments Blood Pressure 120/68 09/09/2023 2:07 PM EST Pulse - - Temperature 36.2 C (97.1 F) 09/09/2023 2:07 PM ES T Respiratory Rate - - Oxygen Saturation - - Inhaled Oxygen Concentration - - Weight - - Height - - Body Mass Index - - documented in this encounter Patient Instructions * Patient Instructions* Austin Saravia CRNP - 09/09/2023 2:21 PM EST Update Vit D Follow up with nurse/prolia visit in at least 6 months plus 1 day Follow up with provider/prolia visit 1 year plus 2 days Prolia administered today in left upper arm with no issues Contact clinic with any questions or concerns documented in this encounter Progress Notes * Austin Saravia CRNP - 09/09/2023 2:11 PM EST [facility] - Follow-up Date of last clinic visit reviewed: 09/03/2022 Current medication therapy: Prolia x13 this visit Prior medication therapy: Fosamax Date of last labs reviewed 07/09/2023: calcium 9.8, creatinine 0.6 09/26/2023 Vit D 70 HPI: Isai Kendall is a 68 year old male who is seen today for follow-up/evaluation and management of osteoporosis. He has tolerated the previous treatment with Prolia. No adverse effects of this medication. Since last visit no falls or fractures. Continues to take Vit D 1,000 IU daily. Gets adequate calcium in his diet. She had a DXA scan performed on 03/11/2023 reviewed with patient. RESULTS: Lumbar spine: 0.870 gms/cm2 T-score: -2.2 Z-score: -1.4 Left femoral neck: 0.521 gms/cm2 T-score: -3.0 Z-score: -1.9 FRAX not indicated. REVIEW OF SYSTEMS: . Constitutional: normal . Head normal . Eyes: normal . Ears, nose, throat, mouth: normal . Cardiovascular: normal . Respiratory: normal . Gastrointestinal: diarrhea and chronic . Musculoskeletal: normal . Neurologic: normal . Skin: normal Past Medical History: Diagnosis Date Acute pancreatitis [...] DIAGNOSTIC (RECTUM) 12/19/2015 adenomatous polyps, repeat 1 yr/[facility] COLONOSCOPY, DIAGNOSTIC (RECTUM) 01/29/2017 adenomatous polyps, repeat 5 yrs/[facility] COLONOSCOPY, DIAGNOSTIC (RECTUM) 02/21/2022 normal, repeat 5 yrs / COLONOSCOPY FLEXIBLE PROXIMAL DIAGNOSTIC performed by Jessica Nuno DO at ENDOSCOPY [facility] EGD, FLEXIBLE, DIAGNOSTIC 01/29/2017 gastritis/[facility] EGD, FLEXIBLE, DIAGNOSTIC 02/21/2022 mild gastric irriation on bx / ESOPHAGOGASTRODUODENOSCOPY (EGD), FLEXIBLE, TRANSORAL, DIAGNOSTIC performed by Jessica Nuno DO at ENDOSCOPY [facility] EGD, FLEXIBLE, W/BIOPSY 05/10/2008 mod chronic inflammation FRAGMENT KIDNEY STONE BY SHOCK WAVE 11/27/2005 Lithotripsy (ESWL) rt ureteroscopic laser INSERT URETERAL SUPPORT 11/27/2005 stent placed NM OPEN TREATMENT RADIAL SHAFT FRACTURE Left 11/28/2021 REMOVE GALLBLADDER VEIN FILTER PLACEMENT 02/1998 Current Outpatient Medications Medication Sig Dispense Refill Loopd Via SYSTEM W/DEVICE KIT Use up to four times a day as directed 1 Kit 0 traZODone (DESYREL) 50 MG Tablet TAKE 1 TABLET BY MOUTH ONCE DAILY AT 8PM *MOOD* 28 Tab 5 denosumab (PROLIA) 60 MG/ML injection Inject 60 mg under the skin. 1 inj every 6 mo. Underpads Large Use as directed for incontinence 90 Each 5 ProAir HFA 108 (90 Base) MCG/ACT Inhalation Aerosol Solution Inhale by mouth 2 Puffs every 6 hours as needed for Wheezing. 8.5 g 5 OXcarbazepine 150 MG Oral Tablet (Trileptal) Take 1 Tablet by mouth in the morning and 1 Tablet before bedtime. Triple Antibiotic 3.5-400-5000 External Ointment Apply topically [...] breakdown). Apply to buttocks/sacrum 20 g 3 Acetaminophen 325 MG Oral Tablet (Tylenol) Take by mouth 2 Tablets every 4 hours as needed for Fever >38C(100.5F) or Pain, Moderate. Do not exceed 4G of Tylenol in a 24 hour period. 100 Tablet 1 Prevail Breezers XL USE DIRECTED FOR INCONTINENCE 60 Each 5 Pepto-Bismol 262 MG Oral Tablet (Bismuth Subsalicylate) Take 1 by mouth every 12 hours as needed for upset stomach 60 Tablet 5 Boost Oral Liquid Take 237 mL by mouth in the morning and 237 mL before bedtime. 90 Each 3 Refresh Tears 0.5 % Ophthalmic Solution Magnesium 400 MG Oral Tablet Take 1 Tablet by mouth in the morning and 1 Tablet in the evening. 100Tablet 8 DIURETIC TITRATION PLAN If no improvement on day 3, contact heart failure managing provider. 1 Each0 Finasteride 5 MG Oral Tablet (Proscar) Take [...] hours if no bowelmovement 507 g 8 Underpads Extra Large Use as directed for incontinence. 90 Each 11 metFORMIN HCl 1000 MG Oral Tablet (Glucophage) TAKE 1 TABLET BY MOUTH TWICE DAILY WITH MEALS DM 56 Tablet 5 Loratadine 10 MG Oral Tablet (Claritin) TAKE ONE TABLET BY MOUTH ONCE DAILY FOR ALLERGIES 28 Tablet5 Gabapentin 300 MG Oral Capsule (Neurontin) TAKE 1 CAPSULE BY MOUTH THREE TIMES DAILY AT 8AM,4PM ANDBEDTIME *PAIN* 84 Capsule 5 Magnesium Oxide -Mg Supplement 400 (240 Mg) [...] in once a day 212 g 5 diphenhydrAMINE HCl 12.5 MG Oral Tablet [...] MOUTH TWICE DAILY FORHTN 90 Tablet 3 OneTouch Delica Plus [id number] Please check patients blood sugar before lunch on days that he attends the day program 400 Each 3 Loperamide HCl 2 MG Oral Tablet (Immodium (A-D)) Take 1 Tablet by mouth 3 times a day as needed forDiarrhea. 30 Tablet 0 Incruse Ellipta 62.5 MCG/ACT Inhalation Aerosol Powder Breath Activated (umeclidinium Jelm) Inhale 1 Puff by mouth in the morning. 30 Each 11 Triamcinolone Acetonide 0.1 % External Ointment (Aristocort) Apply topically to affected area 2 times a day. To affected area for 4 weeks or until healed 80 g 1 Incontinence Brief Large USE DIRECTED FOR INCONTINENCE and throughout the day program 90 Each 5 Probiotic Acidophilus BioBeads Oral Capsule Take 1 Capsule by mouth in the morning and 1 Capsule atnoon and 1 Capsule in the evening. Take with meals. 100 Capsule 3 OneTouch Ultra In Vitro Strip (Glucose Blood) Please check patients blood sugar before lunch on days that he attends the day program 400 Strip 3 Arexvy 120 MCG/0.5ML Intramuscular Suspension Reconstituted (RSVPreF3 Vac Recomb Adjuvanted) Inject1 Each into a large muscle once for 1 dose. 1 Each 0 Glimepiride 1 MG Oral Tablet Take 1 [...] ONCE DAILY FOR GERD 90 Capsule 1 Sertraline HCl 50 MG Oral Tablet (Zoloft) Take 1 Tablet by mouth in the morning. 30 Tablet 11 clonazePAM 0.5 MG Oral Tablet (KlonoPIN) At 0800 and 4 pm 8 pm 45 Tablet 5 Trulicity 3 MG/0.5ML Subcutaneous Solution Pen-injector (Dulaglutide) Inject 3 mg under the skin once a week. 2 mL 8 QUEtiapine Fumarate 100 MG Oral Tablet (SEROquel) Take 1 tablet by mouth at 8am and 1 tablet at 4pmand 1 tablet at 8pm. 90 Tablet 11 guaiFENesin ER 600 MG Oral Tablet Extended Release 12 Hour (Mucinex) Take 1 Tablet by mouth in the morning and 1 Tablet before bedtime. 60 Tablet 5 Current Facility-Administered Medications Medication Dose Route [...] course of abx on chest Shellfish Allergy Family Status Relation Status Mo Alive Fa at age ? ? Bro Social History Tobacco Use Smoking status: Former Packs/day: 2.00 Years: 30.00 Additional pack years: 0.00 Total pack years: 60.00 Types: Cigarettes Quit date: 12/25/2010 Years since quittin.7 Smokeless tobacco: Never Tobacco comments: 04/2010 - unsure total amount of years smoked Substance Use Topics Alcohol use: No Vaping/E-Cigarette Use Vaping/E-Cigarette Use Never User Passive Exposure No Counseling Given? No Vaping/E-Cigarette Substances Nicotine No Other No Flavoring No THC No Cannabidiol (CBD) No Vaping/E-Cigarette Devices Disposable No Pre-filled or Refillable Cartridge No Refillable Tank No Pre-filled Pod No PHYSICAL EXAM: BP 120/68 | Temp 36.2 C (97.1 F) EXAMINATION: Well developed, well nourished and in no acute distress. Skin: No significant lesions. Specifically, no sclerodactyly, telangiectasias, subcutaneous nodulesor periungual abnormalities. HEENT: PERCY. No ocular erythema. No lesions in oral mucosa. Normal oral mucosa moisture. Lymphatics: No palpable nodes. Neck: Supple with no palpable masses. Thyroid was normal. Chest: Clear to A&P. Heart: Rate regular. No murmurs, rubs or gallops. Abdomen: Soft, nontender. No hepatosplenomegaly. Extremities: No edema. Normal pulses. Neurological: Alert and oriented. No focal findings. Strength, reflexes and sensation were intact. No pathological reflexes. Musculoskeletal: Muscle strength 4/5, Kyphosis: Yes ASSESSMENT (M81.0) Senile osteoporosis (primary encounter diagnosis) Plan: Denosumab (Prolia) subcut inj 60 mg, 25-HYDROXY VITAMIN D Mr. Kendall is seen today for evaluation and treatment of osteoporosis. He received her 13 th prolia injection today and tolerated well. No signs or symptoms and muscle strength 4/5. Labs are up to date, need updated Vit D in September. I recommend continuation of a healthy diet with calcium rich foodsas well as calcium and vitamin D supplement. Patient encouraged to participate in weight- bearing exercise (i.e., walking). Discussed fall avoidance measures and recommend fall prevention. Although falls are never planned, I discussed with the patient the goal of therapy to slow down / stop the process of osteoporosis from progressing. Patient voiced understanding of the discussion. PLANS: 1. We discussed this condition in detail. Issues regarding the nature of the condition, clinical manifestations, evaluation, and treatment were discussed. Questions were answered. 2. An adequate amount of calcium and vitamin D intake was emphasized via dietary or supplemental sources. 3. The benefits of exercise and muscle strengthening were reviewed. 4. Issues regarding safety and fall prevention were addressed. 5. Prolia 60 mg subcutaneously was administered today. The patient tolerated the injection well 6. DEXA scan every 2 years 7. Update Vit D 8. Follow up with nurse/prolia visit in at least 6 months plus 1 day 9. Follow up with provider/prolia visit 1 year plus 2 days 10. Prolia administered today in left upper arm with no issues 11. Contact clinic with any questions or concerns CC. RACHEL Carrillo Rheumatology Department The patient was discussed with me. I agree with the findings and plan as documented by Austin RAMOS in this note. Shaq Huerta MD Rheumatology Department documented in this encounter Nursing Notes * Carina Hogan LPN - 09/09/2023 2:08 PM EST Chief Complaint Patient presents with Rheum Follow Up Prolia documented in this encounter Plan of Treatment Upcoming Encounters Date Type Department Care Team (Late st Contact Info) Description 09/29/2023 11:00 AM EST Office Visit [facility] [address] [facility] [place] [address] Shayna Lea PA-C [address] [place] [address] 09/29/2023 1:00 PM EST Office Visit Cardiology, [facility] [address] [facility] [place] [address] Natasha Avery CRNP [address] [place] [address] 11/26/2023 10:15 AM EST [facility] [address] [place] [address] 12/11/2023 10:00 AM EST Imaging Radiology [facility] [address] [facility] [place] [address] 12/23/2023 11:30 AM EST Telemedicine Urology Hernan Calhoun [address] [place] [address] Joseph Doty MD [address] [place] [address] 7, Telemed Kale Mcdonough Urology Ex Rm [address] [place] [address] 03/10/2024 1:30 PM EDT Nurse Only Rheumatology [address] [place] [address] Pf, Nurse Rheum [address] [place] [address] [place] [address] 09/13/2024 2:00 PM EST Office Visit Rheumatology [address] [place] [address] Austin Saravia CRNP [address] [place] [address] [place] [address] Scheduled Orders Name Type Priority Associated Diagnoses Orde r Schedule 25-HYDROXY VITAMIN D Lab Routine Senile osteoporosis Expected: 09/09/2023, Expires: 09/09/2024 Scheduled Procedures Name Priority Associated Diagnoses Date/Ti [...] Depression Screening 07/09/2023 07/09/2022 B-12 08/01/2023 08/01/2022, 0810/2021, 10/04/2021, Additional history exists *BISPHONATE OR OTHER ACCEPTABLE MEDICATION NEEDED FOR OSTEOPOROSIS (REFER TO SMARTSET #[id number]) 09/06/2023 HbA1c 11/22/2023 05/22/2023, 04/26, 08/16/2022, Additional history [...] D LEVEL ONCE IN A LIFETIME-USE SMARTSET# [id number] Completed 09/26/2022, 08/01/2022, 01/03/2021, Additional history exists LUNG CANCER SCREENING - USE SMARTSET [id number] Completed 11/22/2022, 11/20/2021, 09/04/2020, Additional history exists [...] as of this encounter Visit Diagnoses Diagnosis Senile osteoporosis- Primary documented in this encounter Administered Medications Inactive Administered Medications - up to 3 most recent administrations Medication Order MAR Action Action Date Dose Rate Site Denosumab (Prolia) subcut inj 60 mg 60 mg, Subcutaneous, ONCE, On Fri09/09/23 at 1500, For 1 dose Given 09/09/2023 2:22 PM EST 60 mg Arm L eft Upper documented in this encounter Care Teams Design Engineer Relationship Specialty Start Date End Date [place] III, Andrew Lane MD [address] [facility], [place] [id number] PCP - General 12/22/01 documented as of this encounter"
--- OUTSIDE RECORDS SUMMARY | 2023-09-16 03:08 | External Medical Summary | Summary of Care ---
Author Name Unknown Organization [facility] Address [address] [place] [address] Phone [phone] Care Team Providers Care Dyslexia Teacher Name Role Phone Clari ORELLANA MD, Og Lane Primary Care Provider [phone] Reason for Visit * Reason Comments eRx-Medication Refill Encounter Details Date Type Department Care Team Description 08/06/2023 Refill Family Practice [facility] [address] [place] [address] Og Mcdonald III, MD [address] [place] [address] Allergies Active Allergy Reactions Severity Noted Date Comments Aspirin 04/06/2015 Cephalexin Unknown 11/07/2010 Cephalexin 05/27/2022 Cephalosporins Unknown 01/14/2001 Corticosteroids Unknown 01/14/2001 MEDROL PACK Haloperidol 10/25/2021 Tilactase Diarrhea 05/19/2018 Levofloxacin 07/28/2020 QUESTIONABLE allergy- rash AFTER finishing course of abx on chest Shellfish Allergy 04/06/2015 documented as of this encounter (statuses as of 08/07/2023) Medications Medication Sig Dispensed Refills Start Date End Date Status ISIS SYSTEM W/DEVICE KITIndications:DM type 2, goal A1c [...] Tablet 5 3 Active OneTouch Delica Plus [id number] ons:Type 2 diabetes mellitus with hemoglobin A1c goal of less than 7.0% ([facility]) Please check patients blood sugar before lunch on days that he attends the day program 400 Each 3 3 Active Loperamide HCl 2 MG Oral Tablet (Immodium (A-D)) Take 1 Tablet by mouth 3 times a day as needed for Diarrhea. 30 Tablet 0 3 Active Incruse Ellipta 62.5 MCG/ACT Inhalation Aerosol Powder Breath Activated (umeclidinium [place]) Inhale 1 Puff by mouth in the [...] Blood)Indications :DM type 2, not at goal ([facility]) Please check patients blood sugar before lunch on days that he attends the day program 400 Strip 3 3 Active Amoxicillin-Pot Clavulanate 875-125 MG Oral Tablet 1 Tablet. 0 3 Active Dulaglutide 1.5 MG/0.5ML Subcutaneous Solution Pen-injector ([facility])Indica tions:Type 2 diabetes mellitus with diabetic mononeuropathy, without long-term current use of insulin ([facility]) Inject 1.5 mg under the skin once [...] FOR GERD 90 Capsule 1 3 Active Omeprazole 20 MG Oral [...] 84 Tablet 5 3 08/07/20 23 Discontinued Hospital, Clinic, or Other Facility Administered Medication Ordered Dose Route Frequency Start Date End Date Status Zinc Oxide (Desitin/Kevon) 40 % ointmentIndications:Skin ulcer of sacrum, unspecified ulcer stage (HCC) TOP Daily(AM) 04/08/2022 Active Zinc Oxide (Desitin) 40 % pasteIndications:Open bite of buttock, unspecified laterality, initial encounter TOP BID (.AM/PM) 11/05/2022 Active documented as of this encounter (statuses as of 08/07/2023) Active Problems Problem Noted Date Primary male [...] as of this encounter (statuses as of 08/07/2023) Resolved Problems Problem Noted Date Resolved Date [...] as of this encounter (statuses as of 08/07/2023) Immunizations Name Administration Dates Next Due COVID-19 mRNA, LNP-s, No Pre serve, 2-Dose Series ([employer]) 09/11/2021,12/20/2020,11/29/2020 Covid-19, Mrna, Lnp-s, Pf, B ivalent, 30 Mcg, IM, 12 yrs and above ([facility]) 09/13/2022 H1N1 2009 Influenza, IM 09/04/2009 Hepatitis [...] encounter Miscellaneous Notes * Telephone Encounter - Bradley Taylor, [facility] - 08/07/2023 7:47 AM EDTSigned Prescriptions: Disp Refills Pentoxifylline ER 400 MG Oral Tablet Exten*270 Ta*1 Sig: TAKE ONE TABLET BY MOUTH THREE TIMES DAILY *CIRCULATION*Authorizing Provider: OG MCDONALD III User: BRADLEY TAYLOR Simvastatin 40 MG Oral Tablet (Zocor) 90 Tab*1 Sig: TAKE ONE TABLET BY MOUTH EVERY EVENING *CHOLESTEROL*Authorizing Provider: OG MCDONALD III User: BRADLEY TAYLOR Omeprazole 20 MG Oral Capsule Delayed Rele*90 Cap*1 Sig: TAKE ONE CAPSULE BY MOUTH ONCE DAILY FOR GERDAuthorizing Provider: OG MCDONALD III User: BRADLEY TAYLOR documented in this encounter Plan of Treatment Upcoming Encounters Date Type Specialty Care Team Description 08/27/2023 Office Visit Endocrinology Rogers Dwyer MD [address] [place] [address] 08/30/2023 Office Visit Family Medicine Og Mcdonald III, MD [address] [place] [address] 09/09/2023 Office Visit Rheumatology Austin Saravia CRNP [address] [place] [address] 09/29/2023 [facility] [address] [facility] [address] 11/26/2023 Imaging Radiology 12/11/2023 Imaging Radiology 12/23/2023 Telemedicine Urology Joseph Doty MD [address] [place] [address] 7, Telemed [facility] Urology Ex [address] [place] [address] Scheduled Procedures Name Priority Associated Diagnoses Date/Ti [...] D LEVEL ONCE IN A LIFETIME-USE SMARTSET# [id number] Completed 09/26/2022, 08/01/2022, 01/03/2021, Additional history exists LUNG CANCER SCREENING - USE SMARTSET [id number] Completed 11/22/2022, 11/20/2021, 09/04/2020, Additional history exists Influenza Vaccine (FLU shot) Completed , 07/09/2022, 08/22/2021, Additional history exists GARDASIL-HPV IMMUNIZATION SERIES Aged Out No longer eligible based on patient's age to complete this topic MENINGOCOCCAL (MENACTRA/MENVEO) Aged Out No longer eligible based on patient's age to complete this topic documented as of this encounter Medical Devices Not on filedocumented as of this encounter Care Teams Dyslexia Teacher Relationship Specialty Start Date End Date Og Mcdonald III, MD [address] [place] [address], [place] [address] PCP - General 12/22/01 documented as of this encounter
--- OUTSIDE RECORDS SUMMARY | 2023-09-16 03:08 | External Medical Summary | Summary of Care ---
Author Name Unknown Organization [facility] Address [address] [place] [address] Phone [phone] Care Team Providers Care Plant Maintenance Technician Name Role Phone Clari ORELLANA MD, Andrew Lane Primary Care Provider [phone] Encounter Details Date Type Department Care Team Description 07/19/2023 Result Scan Unspecified Department <No scans attached> Allergies Active Allergy Reactions Severity Noted Date Comments Aspirin 04/06/2015 Cephalexin Unknown 11/07/2010 Cephalexin 05/27/2022 Cephalosporins Unknown 01/14/2001 Corticosteroids Unknown 01/14/2001 MEDROL PACK Haloperidol 10/25/2021 Tilactase Diarrhea 05/19/2018 Levofloxacin 07/28/2020 QUESTIONABLE allergy- rash AFTER finishing course of abx on chest Shellfish Allergy 04/06/2015 documented as of this encounter (statuses as of 2023) Medications Medication Sig Dispensed Refills Start Date End Date Status [employer] SYSTEM W/DEVICE KITIndications:DM type 2, goal A1c below 7 Use up to four times a day as directed 1 Kit 0 02/14/2011 Active traZODone (DESYREL) 50 MG Tablet TAKE 1 TABLET BY MOUTH ONCE DAILY AT 8PM *MOOD* 28 Tab 5 08/18/2015 Active denosumab (PROLIA) 60 MG/ML injection Inject 60 mg under the skin. 1 inj every 6 mo. 0 Active Underpads LargeIndications:U rinary incontinence Use as directed for incontinence 90 Each 5 04/18/2021 Active Escitalopram Oxalate 20 MG Oral TabletIndications: in am Take 1 Tablet by mouth in the morning. 30 Tab 5 08/22/2021 Active clonazePAM 0.5 MG Oral Tablet One pill in the AM and one pill at night. 30 Tablet 5 02/04/2022 Active risperiDONE 2 MG Oral Tablet (RisperDAL) Take 1 Tablet by mouth in the morning and 1 Tablet at noon and 1 Tablet before bedtime. 0 02/04/2022 Active ProAir HFA 108 (90 Base) MCG/ACT [...] Active Calmoseptine 0.44-20.6 % External Ointment (Menthol-Zinc Oxide)Indications: Skin irritation Apply topically to affected area at bedtime as needed for Irritation or Other (Skin breakdown). Apply to buttocks/sacrum 20 g 3 07/10/2022 Active Acetaminophen 325 MG Oral Tablet (Tylenol)Indicatio ns:Inferior pubic ramus fracture, left, with routine healing, [...] Tears 0.5 % Ophthalmic Solution 0 09/10/2022 Active Magnesium 400 MG Oral Tablet Take [...] 650 MG Oral Tablet Extended Release (Acetaminophen ER)Indications:Inf erior pubic ramus fracture, left, with routine healing, [...] directed for incontinence. 90 Each 04/08/2023 Active Testosterone 20.25 MG/ACT (1.62%) Transdermal Gel (AndroGel Pump) APPLY ONE PUMP TO THE SHOULDER DAILY.To clean, dry, unbroken skin on the shoulders or upper arms. 75 g 0 04/14/2023 Active metFORMIN HCl 1000 MG Oral Tablet (Glucophage) TAKE 1 TABLET BY MOUTH TWICE DAILY WITH MEALS DM 56 Tablet 5 04/20/2023 Active Loratadine 10 MG Oral Tablet [...] 05/11/2023 Active Petroleum Jelly 100 % External GelIndications:Pru ritus Apply topically to affected area 2 times a day. Apply to arms, chest and areas of scratches until feels better then change in once a day 212 g 05/14/2023 Active diphenhydrAMINE HCl 12.5 MG Oral Tablet Chewable (Benadryl Allergy Childrens)Indicati ons:Pruritus Take 12.5 mg by mouth in the [...] MOUTH TWICE DAILY FOR HTN 90 Tablet 06/18/2023 Active guaiFENesin ER 600 MG Oral Tablet Extended Release 12 Hour (Mucinex)Indicatio ns:Cough Take 1 Tablet by mouth in the morning and 1 Tablet before bedtime. 60 Tablet 5 06/23/2023 Active OneTouch Delica Plus [id number] ns:Type 2 diabetes mellitus with hemoglobin A1c goal of less than 7.0% ([facility]) Please check patients blood sugar before lunch on days that he attends the day program 400 Each 3 07/03/2023 Active Loperamide HCl 2 MG Oral Tablet (Immodium (A-D)) Take 1 Tablet by mouth 3 times a day as needed for Diarrhea. 30 Tablet 0 07/08/2023 Active Incruse Ellipta 62.5 MCG/ACT Inhalation Aerosol Powder Breath Activated (umeclidinium [place]) Inhale 1 Puff by mouth in the morning. 30 Each 11 07/08/2023 Active Triamcinolone Acetonide 0.1 % External Ointment (Aristocort)Indica tions:Dermatitis,P ruritus Apply topically to affected area 2 [...] with meals. 100 Capsule 3 07/15/2023 Active Hospital, Clinic, or Other Facility Administered Medication Ordered Dose Route Frequency Start Date End Date Status Zinc Oxide (Desitin/Kevon) 40 % ointmentIndications:Skin ulcer of sacrum, unspecified ulcer stage (HCC) TOP Daily(AM) 04/08/2022 Active Zinc Oxide (Desitin) 40 % pasteIndications:Open bite of buttock, unspecified laterality, initial encounter TOP BID (.AM/PM) 11/05/2022 Active documented as of this encounter (statuses as of 2023) Active Problems Problem Noted Date Primary male [...] as of this encounter (statuses as of 2023) Resolved Problems Problem Noted Date Resolved Date [...] as of this encounter (statuses as of 2023) Immunizations Name Administration Dates Next Due COVID-19 mRNA, LNP-s, No Pre serve, 2-Dose Series ([employer]) 09/11/2021,12/20/2020,11/29/2020 Covid-19, Mrna, Lnp-s, Pf, B ivalent, 30 Mcg, IM, 12 yrs and above ([employer]) 09/13/2022 H1N1 2009 Influenza, IM 09/04/2009 Hepatitis [...] on file documented as of this encounter Plan of Treatment Upcoming Encounters Date Type Specialty Care Team Description 08/27/2023 [facility] [address] [facility] [address] 08/30/2023 Office Visit Family Medicine Liberty III, Andrew Lane MD [address] [place] [address] 09/09/2023 Office Visit Rheumatology Austin Saravia CRNP [address] [facility], [place] [address] 09/29/2023 Office Visit Cardiology Natasha Avery CRNP [address] [place] [address] 11/26/2023 Imaging Radiology 12/11/2023 Imaging Radiology 12/23/2023 Telemedicine Urology Joseph Doty MD [address] [place] [address] 7, Telemed [facility] Urology Ex R[address] [place] [address] Scheduled Procedures Name Priority Associated Diagnoses Date/Ti [...] D LEVEL ONCE IN A LIFETIME-USE SMARTSET# [id number] Completed 09/26/2022, 08/01/2022, 01/03/2021, Additional history exists LUNG CANCER SCREENING - USE SMARTSET [id number] Completed 11/22/2022, 11/20/2021, 09/04/2020, Additional history exists Influenza Vaccine (FLU shot) Completed , 07/09/2022, 08/22/2021, Additional history exists GARDASIL-HPV IMMUNIZATION SERIES Aged Out No longer eligible based on patient's age to complete this topic MENINGOCOCCAL (MENACTRA/MENVEO) Aged Out No longer eligible based on patient's age to complete this topic documented as of this encounter Medical Devices Not on filedocumented as of this encounter Procedures Procedure Name Priority Date/Time Associated Diagnosis Comments OUTSIDE LAB RESULTS 07/19/2023 documented in this encounter Results * OUTSIDE LAB RESULTS (07/19/2023) 07/19/2023 No Physician Data Unknown LABORATORY documented in this encounter Additional Health Concerns Infection Onset Date Last Indicated Resolved Time Gastrointestinal Rule-Out 07/23/2023 07/23/2023 5:06 PM EDT documented as of this encounter Care Teams Plant Maintenance Technician Relationship Specialty Start Date End Date Clari ORELLANA, Andrew Lane MD [address] [place] [id number] PCP - General 12/22/01 documented as of this encounter
--- OUTSIDE RECORDS SUMMARY | 2023-09-16 03:08 | External Medical Summary | Summary of Care ---
Author Name Unknown Organization [facility] Address [address] [place] [address] Phone [phone] Care Team Providers Care Shipping Support Clerk Name Role Phone Clari ORELLANA MD, Andrew Lane Primary Care Provider [phone] Reason for Visit * Reason Comments Emergency Department Follow-Up Encounter Details Date Type Department Care Team Description 07/25/2023 Office Visit Family Practice [facility] [address] [facility] [place] [address] Zahraa Portillo, [address] [place] [address] Uncontrolled type 2 diabetes mellitus with hyperglycemia (HCC)*; Urinary tract infection without hematuria, site unspecified Allergies Active Allergy Reactions Severity Noted Date Comments Aspirin 04/06/2015 Cephalexin Unknown 11/07/2010 Cephalexin 05/27/2022 Cephalosporins Unknown 01/14/2001 Corticosteroids Unknown 01/14/2001 MEDROL PACK Haloperidol 10/25/2021 Tilactase Diarrhea 05/19/2018 Levofloxacin 07/28/2020 QUESTIONABLE allergy- rash AFTER finishing course of abx on chest Shellfish Allergy 04/06/2015 documented as of this encounter (statuses as of 08/12/2023) Medications Medication Sig Dispensed Refills Start Date End Date Status m[employer] Gateway SYSTEM W/DEVICE KITIndications:DM type 2, goal A1c [...] CAPSULE BY MOUTH DAILY. *SUPPLEMENT* 28 Capsule 3 Active Metoprolol Tartrate 25 MG Oral Tablet (Lopressor) TAKE 1/2 TABLET (12.5MG) BY MOUTH TWICE DAILY FOR HTN 90 Tablet 3 3 Active guaiFENesin ER 600 MG Oral Tablet Extended Release 12 Hour (Mucinex)Indicati ons:Cough Take 1 Tablet by mouth in the morning and 1 Tablet before bedtime. 60 Tablet 5 3 Active OneTouch Delica Plus [id number] ons:Type 2 diabetes mellitus with hemoglobin A1c goal of less than 7.0% ([facility]) Please check patients blood sugar before lunch on days that he attends the day program 400 Each 3 3 Active Loperamide HCl 2 MG Oral Tablet (Immodium (A-D)) Take 1 Tablet by mouth 3 times a day as needed for Diarrhea. 30 Tablet 0 3 Active Incruse Ellipta 62.5 MCG/ACT Inhalation Aerosol Powder Breath Activated (umeclidinium [place]) Inhale 1 Puff by mouth in the morning. 30 Each 3 Active Triamcinolone Acetonide 0.1 % External Ointment (Aristocort)Indic ations:Dermatitis ,Pruritus Apply topically to affected area 2 times a day. To affected area for 4 weeks or until healed 80 g 1 3 Active Incontinence Brief Large USE DIRECTED FOR INCONTINENCE and throughout the day program 90 Each 3 Active Probiotic Acidophilus BioBeads Oral Capsule Take 1 Capsule by mouth in the morning and 1 Capsule at noon and 1 Capsule in the evening. Take with meals. 100 Capsule 3 3 Active Amoxicillin-Pot Clavulanate 875-125 MG Oral Tablet 1 Tablet. 0 3 Active Omeprazole 20 MG Oral Capsule Delayed Release (PriLOSEC) TAKE ONE CAPSULE BY MOUTH ONCE DAILY FOR GERD 28 Capsule 5 3 023 Discontinued Simvastatin 40 MG Oral Tablet (Zocor) TAKE ONE TABLET BY MOUTH EVERY EVENING *CHOLESTEROL* 28 Tablet 3 023 Discontinued Pentoxifylline ER 400 MG Oral Tablet Extended Release (TRENtal) TAKE ONE TABLET BY MOUTH THREE TIMES DAILY *CIRCULATION* 84 Tablet 3 023 Discontinued Glimepiride 1 MG Oral Tablet (Amaryl) TAKE ONE TABLET BY MOUTH DAILY. *DM* 28 Tablet 3 023 Discontinued Trulicity 0.75 MG/0.5ML Subcutaneous Solution Pen-injector (Dulaglutide) Inject 0.75 mg under the skin once a week. 6 mL 3 023 Discontinued OneTouch Ultra In Vitro Strip (Glucose Blood)Indications :DM type 2, not at goal (HCC) Please check patients blood sugar before lunch on days that he attends the day program 400 Strip 3 3 023 Discontinued(Re fill) Trulicity 1.5 MG/0.5ML Subcutaneous Solution Pen-injector (Dulaglutide) Inject 1.5 mg under the skin once a week. 0.5 mL 1 3 023 Discontinued(Ca dication List Clean Up) Arexvy 120 MCG/0.5ML Intramuscular Suspension Reconstituted (RSVPreF3 Vac Recomb Adjuvanted) Inject 1 Each into a large muscle once for 1 dose. 1 Each 0 3 023 Hospital, Clinic, or Other Facility Administered Medication Ordered Dose Route Frequency Start Date End Date Status Zinc Oxide (Desitin/Kevon) 40 % ointmentIndications:Skin ulcer of sacrum, unspecified ulcer stage (HCC) TOP Daily(AM) 04/08/2022 Active Zinc Oxide (Desitin) 40 % pasteIndications:Open bite of buttock, unspecified laterality, initial encounter TOP BID (.AM/PM) 11/05/2022 Active documented as of this encounter (statuses as of 08/12/2023) Active Problems Problem Noted Date Primary male [...] as of this encounter (statuses as of 08/12/2023) Resolved Problems Problem Noted Date Resolved Date [...] Taxonomy. ACTIVE CASE MANAGEMENT Shanthi Dawson RN [phone] 05/20/2008 08/13/2010 Type 2 diabetes mellitus wit h hemoglobin A1c goal of less than 7.0% 03/18/2007 08/24/2009 Overview: Per Diabetes Taxonomy. ICD-10 update of inactive term Tobacco use disorder 09/05/2005 11/13/2007 Overview: 30+ pack years DIAB NEURO MANIF ADULT 01/26/2002 10/29/200 9 Overview: Per Diabetes Taxonomy. Type 2 [...] as of this encounter (statuses as of 08/12/2023) Immunizations Name Administration Dates Next Due COVID-19 mRNA, LNP-s, No Pre serve, 2-Dose Series ([employer] [place]) 09/11/2021,12/20/2020,11/29/2020 Covid-19, Mrna, Lnp-s, Pf, B ivalent, 30 Mcg, IM, 12 yrs and above ([employer] [place]) 09/13/2022 H1N1 2009 Influenza, IM 09/04/2009 Hepatitis [...] Sign Reading Time Taken Comments Blood Pressure 110/72 07/25/2023 11:27 AM EDT Pulse 74 07/25/2023 11:27 AM EDT Temperature 36.8 C (98.2 F) 07/25/2023 11:27 AM E DT Respiratory Rate 16 07/25/2023 11:27 AM EDT Oxygen Saturation 94% 07/25/2023 11:27 AM EDT Inhaled Oxygen Concentration - - Weight 65.8 kg (145 lb) 07/25/2023 11:27 AM EDT Height 175.3 cm (5' 9") 07/25/2023 11:27 AM EDT Body Mass Index 21.41 07/25/2023 11:27 AM EDT documented in this encounter Progress Notes * Zahraa Portillo, DO - 07/25/2023 11:52 AM EDT Subjective: Isai Kendall is a 67 year old male. Chief Complaint Patient presents with Emergency Department Follow-Up HPI: Patient's past medical, surgical, family, and social history were reviewed. Medications, allergies, immunizations, and health care maintenance screenings were also reviewed. Here with Aide, from [facility] Patient presents today for an Er follow up. He had a uti and was having bad behaviors. Diabetes Follow Up The patient is taking medications as instructed. No medication side effects are described. Compliance with Diet: good Compliance with exercise program: good The patient is not monitoring home blood pressures. The patient denies any acute focal neurologic symptoms. The patient reports no chest pain, no orthopnea, and no dyspnea on exertion. The patient denies intermittent claudication symptoms. Fasting home blood sugar readings: The patient is not recording home blood sugars. Reportedly all over the place 180s, 200s, occasional 300 Hypoglycemic symptoms: absent Visual changes: none Peripheral Neuropathy: none Patient is aware of possibility of myocardial infarction without any symptoms, and poor glycemic control will lead to poorer prognosis. Last Retinal Exam: within the last year PHM: Patient Active Problem List Diagnosis Code chronic stasis dermatitis L57.0 Esophageal reflux K21.9 ADVANCE DIRECTIVE INFORMATION Mitral valve disorder I05.9 Intellectual disability F79 Venous insufficiency I87.2 Temporomandibular joint disorders, unspecified M26.609 Sensorineural hearing loss, bilateral H90.3 Chronic otitis externa H60.60 Type 2 diabetes mellitus with hemoglobin A1c goal of less than 7.0% ([facility]) E11.9 Obstructive sleep apnea G47.33 Hearing loss H91.90 History of epistaxis Z87.898 Cataract H26.9 Senile osteoporosis M81.0 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) E11.620 Diabetic complication (HCC) E11.8 Peripheral vascular disease (HCC) I73.9 Diabetes mellitus with peripheral angiopathy (HCC) E11.51 Thrombocytopenia ([facility]) D69.6 Protein-calorie malnutrition (HCC) E46 Protein-calorie malnutrition ([facility]) E46 PAF (paroxysmal atrial fibrillation) ([facility]) I48.0 Dyslipidemia E78.5 COPD, group A, by GOLD 2017 classification ([facility]) J44.9 Cerebral palsy ([facility]) G80.9 Type 2 diabetes mellitus with diabetic polyneuropathy, without long-term current use of insulin ([facility]) E11.42 Hyperprolactinemia ([facility]) E22.1 Primary male hypogonadism E29.1 Outpatient Medications Prior to Visit Medication Sig Dispense Refill Amoxicillin-Pot Clavulanate 875-125 MG Oral Tablet 1 Tablet. Probiotic Acidophilus BioBeads Oral Capsule Take 1 Capsule by mouth in the morning and 1 Capsule atnoon and 1 Capsule in the evening. Take with meals. 100 Capsule 3 Incontinence Brief Large USE DIRECTED FOR INCONTINENCE and throughout the day program 90 Each 5 Triamcinolone Acetonide 0.1 % External Ointment (Aristocort) Apply topically to affected area 2 times a day. To affected area for 4 weeks or until healed 80 g 1 Incruse Ellipta 62.5 MCG/ACT Inhalation Aerosol Powder Breath Activated (umeclidinium [place]) Inhale 1 Puff by mouth in the morning. 30 Each 11 Loperamide HCl 2 MG Oral Tablet (Immodium (A-D)) Take 1 Tablet by mouth 3 times a day as needed forDiarrhea. 30 Tablet 0 OneTouch Delica Plus [id number] Please check patients blood sugar before lunch on days that he attends the day program 400 Each 3 [DISCONTINUED] OneTouch Ultra In Vitro Strip (Glucose Blood) Please check patients blood sugar before lunch on days that he attends the day program 400 Strip 3 guaiFENesin ER 600 MG Oral Tablet Extended Release 12 Hour (Mucinex) Take 1 Tablet by mouth in the morning and 1 Tablet before bedtime. 60 Tablet 5 D3-1000 25 MCG (1000 UT) Oral Capsule (Cholecalciferol) TAKE ONE CAPSULE BY MOUTH DAILY. *SUPPLEMENT* 28 Capsule 5 Metoprolol Tartrate 25 MG Oral Tablet (Lopressor) TAKE 1/2 TABLET (12.5MG) BY MOUTH TWICE DAILY FORHTN 90 Tablet 3 diphenhydrAMINE HCl 12.5 MG Oral Tablet Chewable (Benadryl Allergy Childrens) Take 12.5 mg by mouthin the morning and 12.5 mg in the evening. For 2 weeks then as needed for itching. 30 Tablet 2 Petroleum Jelly 100 % External Gel Apply topically to affected area 2 times a day. Apply to arms, chest and areas of scratches until feels better then change in once a day 212 g 5 Magnesium Oxide -Mg Supplement 400 (240 Mg) MG Oral Tablet (Mag-Ox) TAKE 1 TABLET BY MOUTH TWICE DAILY IN THE MORNING AND IN THE EVENING FOR SUPPLEMENT 56 Tablet 5 Gabapentin 300 MG Oral Capsule (Neurontin) TAKE 1 CAPSULE BY MOUTH THREE TIMES DAILY AT 8AM,4PM ANDBEDTIME *PAIN* 84 Capsule 5 Loratadine 10 MG Oral Tablet (Claritin) TAKE ONE TABLET BY MOUTH ONCE DAILY FOR ALLERGIES 28 Tablet5 metFORMIN HCl 1000 MG Oral Tablet (Glucophage) TAKE 1 TABLET BY MOUTH TWICE DAILY WITH MEALS DM 56 Tablet 5 Testosterone 20.25 MG/ACT (1.62%) Transdermal Gel (AndroGel Pump) APPLY ONE PUMP TO THE SHOULDER DAILY.To clean, dry, unbroken skin on the shoulders or upper arms. 75 g 0 Underpads Extra Large Use as directed for incontinence. 90 Each 11 Polyethylene Glycol 3350 17 GM/SCOOP Oral Powder (MiraLax) Take 17 g by mouth as needed for Constipation. Dissolve one heaping tablespoon in 8 ounces of water or juice.Give every 72 hours if no bowelmovement 507 g 8 Furosemide 20 MG Oral Tablet (Lasix) Take one tab by mouth on Thursday 03/29 and Friday 03/30 in addition to the routine 20 mg daily dose. (Total daily dose for Thursday 03/29 and Friday 03/30 will be 40 mg). 2 Tablet 3 Arthritis Pain Relief 650 MG Oral Tablet Extended Release (Acetaminophen ER) TAKE 2 TABLET BY MOUTHIN THE MORNING AND BEFORE BEDTIME FOR PAIN *MAX 3GMS APAP IN 24HRS* 112 Tablet 5 Finasteride 5 MG Oral Tablet (Proscar) Take 1 Tablet by mouth in the morning. 90 Tablet 3 Tamsulosin HCl 0.4 MG Oral Capsule (Flomax) Take 1 Capsule by mouth in the morning. 90 Capsule 3 DIURETIC TITRATION PLAN If no improvement on day 3, contact heart failure managing provider. 1 Each0 [DISCONTINUED] Omeprazole 20 MG Oral Capsule Delayed Release (PriLOSEC) TAKE ONE CAPSULE BY MOUTH ONCE DAILY FOR GERD 28 Capsule 5 [DISCONTINUED] Pentoxifylline ER 400 MG Oral Tablet Extended Release (TRENtal) TAKE ONE TABLET BY MOUTH THREE TIMES DAILY *CIRCULATION* 84 Tablet 5 [DISCONTINUED] Simvastatin 40 MG Oral Tablet (Zocor) TAKE ONE TABLET BY MOUTH EVERY EVENING *CHOLESTEROL* 28 Tablet 5 Magnesium 400 MG Oral Tablet Take 1 Tablet by mouth in the morning and 1 Tablet in the evening. 100Tablet 8 Refresh Tears 0.5 % Ophthalmic Solution Boost Oral Liquid Take 237 mL by mouth in the morning and 237 mL before bedtime. 90 Each 3 Pepto-Bismol 262 MG Oral Tablet (Bismuth Subsalicylate) Take 1 by mouth every 12 hours as needed for upset stomach 60 Tablet 5 Prevail Breezers XL USE DIRECTED FOR INCONTINENCE 60 Each 5 Acetaminophen 325 MG Oral Tablet (Tylenol) Take by mouth 2 Tablets every 4 hours as needed for Fever >38C(100.5F) or Pain, Moderate. Do not exceed 4G of Tylenol in a 24 hour period. 100 Tablet 1 Calmoseptine 0.44-20.6 % External Ointment (Menthol-Zinc Oxide) Apply topically to affected area atbedtime as needed for Irritation or Other (Skin breakdown). Apply to buttocks/sacrum 20 g 3 Theravim-M Oral Tablet TAKE ONE TABLET BY MOUTH ONCE DAILY 90 Tablet 1 guaiFENesin 100 MG/5ML Oral Syrup (Robitussin) Take by mouth 10 mL as needed in the morning AND 10 mL as needed at noon AND 10 mL as needed in the evening for Cough. 120 mL 0 Triple Antibiotic 3.5-400-5000 External Ointment Apply topically to affected area as needed for Wound Care. Apply to * minor cuts / scrapes 28.4 g 5 OXcarbazepine 150 MG Oral Tablet (Trileptal) Take 1 Tablet by mouth in the morning and 1 Tablet before bedtime. ProAir HFA 108 (90 Base) MCG/ACT Inhalation Aerosol Solution Inhale by mouth 2 Puffs every 6 hours as needed for Wheezing. 8.5 g 5 clonazePAM 0.5 MG Oral Tablet One pill in the AM and one pill at night. 30 Tablet 5 risperiDONE 2 MG Oral Tablet (RisperDAL) Take 1 Tablet by mouth in the morning and 1 Tablet at noonand 1 Tablet before bedtime. Escitalopram Oxalate 20 MG Oral Tablet Take 1 Tablet by mouth in the morning. 30 Tab 5 Underpads Large Use as directed for incontinence 90 Each 5 denosumab (PROLIA) 60 MG/ML injection Inject 60 mg under the skin. 1 inj every 6 mo. traZODone (DESYREL) 50 MG Tablet TAKE 1 TABLET BY MOUTH ONCE DAILY AT 8PM *MOOD* 28 Tab 5 OpinionLabTOvendome 1699 ULTRA SYSTEM W/DEVICE KIT Use up to four times a day as directed 1 Kit 0 [DISCONTINUED] Trulicity 0.75 MG/0.5ML Subcutaneous Solution Pen-injector (Dulaglutide) Inject 0.75mg under the skin once a week. 6 mL 6 [DISCONTINUED] Glimepiride 1 MG Oral Tablet (Amaryl) TAKE ONE TABLET BY MOUTH DAILY. *DM* 28 Tablet5 Facility-Administered Medications Prior to Visit Medication Dose Route Frequency Provider Last Rate Last Admin Zinc Oxide (Desitin) 40 % paste Topical BID(AM/PM) Andrew Montague III, MD Zinc Oxide (Desitin/Kevon) 40 % ointment Topical Daily(AM) Andrew Montague III, MD Last reviewed on 07/25/2023 11:26 AM by Georgia Casey LPN Review of patient's allergies indicates: Allergen Reactions Aspirin Cephalexin Unknown Cephalexin Cephalosporins Unknown Corticosteroids Unknown MEDROL PACK Haldol [Haloperidol] Lactose Intolerance [Tilactase] Diarrhea Levaquin [Levofloxacin] QUESTIONABLE allergy- rash AFTER finishing course of abx on chest Shellfish Allergy Objective: BP 110/72 | Pulse 74 | Temp 36.8 C (98.2 F) (Tympanic) | Resp 16 | Ht 1.753 m (5' 9") | Wt 65.8kg (145 lb) | SpO2 94% | BMI 21.41 kg/m | BSA 1.79 m Physical Exam: General: alert, healthy, and no distress Neck: supple, no adenopathy, no bruits, thyroid normal size, non-tender, without nodularity Heart: regular rate & rhythm, no murmur, and no gallops Lungs: chest symmetric with normal AP diameter, no chest deformities noted, no chest wall tenderness, lungs clear to auscultation Pulses: carotid=2/4 w/o bruits Extremities: less than 2 second capillary refill, no joint deformities, effusion, or inflammation Recent Labs: Lab Results Component Value Date/Time HEMOGLOBIN A1C 6.2 (H) 07/12/1996 11:03 AM HEMOGLOBIN A1C - [facility] 8.0 (H) 05/22/2023 10:20 AM HEMOGLOBIN A1C - [facility] 7.5 (H) 05/14/2023 12:47 PM HEMOGLOBIN A1C - [facility] 6.2 (H) 08/16/2022 08:15 AM HEMOGLOBIN A1C - [facility] 6.7 (H) 11/08/2020 10:22 AM HEMOGLOBIN A1C - [facility] 5.5 04/26/2020 09:49 AM HEMOGLOBIN A1C - [facility] 6.1 (H) 09/24/2019 09:02 AM Lab Results Component Value Date/Time CREATININE 0.7 07/12/1996 11:03 AM CREATININE - [facility] 0.6 07/09/2023 02:09 PM CREATININE - [facility] 0.7 05/22/2023 10:20 AM CREATININE - [facility] 0.7 05/14/2023 12:47 PM CREATININE - [facility] 0.9 12/23/2019 10:59 AM CREATININE - [facility] 0.8 11/25/2018 10:26 AM CREATININE - [facility] 0.9 12/10/2017 01:51 PM CREATININE, RANDOM URINE - [facility] 13 03/19/2022 12:20 PM CREATININE, RANDOM URINE - [facility] 81 04/26/2020 10:11 AM CREATININE, RANDOM URINE - [facility] 10 05/20/2019 04:31 PM CREATININE, RANDOM URINE - [facility] 48 05/12/2018 08:22 AM CREATININE-OUTSIDE LAB 0.70 01/02/2023 12:00 AM CREATININE-OUTSIDE LAB 0.82 10/12/2015 12:00 AM CREATININE-OUTSIDE LAB 0.92 10/04/2015 12:00 AM ASSESSMENT/PLAN: Uncontrolled type 2 diabetes mellitus with hyperglycemia (HCC) (Primary) Urinary tract infection without hematuria, site unspecified Other orders - Arexvy 120 MCG/0.5ML Intramuscular Suspension Reconstituted (RSVPreF3 Vac Recomb Adjuvanted); Inject 1 Each into a large muscle once for 1 dose. A healthy, low fat, low cholesterol diabetic diet and 30-60 minutes of cardiovascular exercise daily were encouraged. Maintaining a healthy weight/BMI was advised. A total of 1500mg of Calcium and 1000 IU of vitamin D were recommended daily, to be obtained from a combination of both diet and supplement sources. Zahraa Portillo DO documented in this encounter Nursing Notes * Georgia Casey LPN - 07/25/2023 11:26 AM EDT Patient presents today for an Er follow up. He had a uti and was having bad behaviors. documented in this encounter Plan of Treatment Upcoming Encounters Date Type Specialty Care Team Description 08/27/2023 Office Visit Endocrinology Rogers Dwyer MD [address] [place] [address] 08/30/2023 Office Visit Family Medicine [place] III, Andrew Lane MD [address] [place] [address] 09/09/2023 Office Visit Rheumatology Austin Saravia CRNP [address] [place] [address] 09/29/2023 Office Visit Cardiology Natasha Avery CRNP [address] [facility] [place] [address] 11/26/2023 Imaging Radiology 12/11/2023 Imaging Radiology 12/23/2023 Telemedicine Urology Joseph Doty MD [address] [place] [id number], Telemed [facility] Urology Ex [address] [place] [address] Scheduled Procedures Name Priority Associated Diagnoses Date/Ti [...] D LEVEL ONCE IN A LIFETIME-USE SMARTSET# [id number] Completed 09/26/2022, 08/01/2022, 01/03/2021, Additional history exists LUNG CANCER SCREENING - USE SMARTSET [id number] Completed 11/22/2022, 11/20/2021, 09/04/2020, Additional history exists [...] as of this encounter Visit Diagnoses Diagnosis Uncontrolled type 2 diabetes mellitus with hyperglycemia (HCC)- Primary Urinary tract infection without hematuria, site unspecified documented in this encounter Care Teams Shipping Support Clerk Relationship Specialty Start Date End Date Andrew Montague III, MD [address] [place] [address], [place] [address] PCP - General 12/22/01 documented as of this encounter
--- OUTSIDE RECORDS SUMMARY | 2023-09-16 03:08 | External Medical Summary | Summary of Care ---
Author Name Unknown Organization [facility] Address [address] [place] [address] Phone [phone] Care Team Providers Care Sql Manager Name Role Phone Clari ORELLANA MD, Andrew Lane Primary Care Provider [phone] Reason for Visit * Reason Onset Date Comments Medication Refill 07/31/2023 Encounter Details Date Type Department Care Team Description 07/31/2023 Refill Family Practice [facility] [address] [facility] [place] [address] Christy Portillo, 200 [place] [address] Type 2 diabetes mellitus with diabetic mononeuropathy, without long-term current use of insulin (HCC) Allergies Active Allergy Reactions Severity Noted Date Comments Aspirin 04/06/2015 Cephalexin Unknown 11/07/2010 Cephalexin 05/27/2022 Cephalosporins Unknown 01/14/2001 Corticosteroids Unknown 01/14/2001 MEDROL PACK Haloperidol 10/25/2021 Tilactase Diarrhea 05/19/2018 Levofloxacin 07/28/2020 QUESTIONABLE allergy- rash AFTER finishing course of abx on chest Shellfish Allergy 04/06/2015 documented as of this encounter (statuses as of 07/31/2023) Medications Medication Sig Dispensed Refills Start Date End Date Status [employer] SYSTEM W/DEVICE KITIndications:DM type 2, goal A1c [...] 04/18/2021 Active Escitalopram Oxalate 20 MG Oral TabletIndications [...] 07/10/2022 Active Acetaminophen 325 MG Oral Tablet (Tylenol)Indicati [...] the evening. 100 Tablet 8 01/03/2023 Active Omeprazole 20 MG Oral Capsule Delayed Release (PriLOSEC) TAKE ONE CAPSULE BY MOUTH ONCE DAILY FOR GERD 28 Capsule 5 01/28/2023 Active Simvastatin 40 MG Oral Tablet (Zocor) TAKE ONE TABLET BY MOUTH EVERY EVENING *CHOLESTEROL* 28 Tablet 5 01/28/2023 Active Pentoxifylline ER 400 MG Oral Tablet Extended Release (TRENtal) TAKE ONE TABLET BY MOUTH THREE TIMES DAILY *CIRCULATION* 84 Tablet 01/28/2023 Active DIURETIC TITRATION PLAN If no improvement [...] (Total daily dose for Thursday 03/29 and Chang 6/4 will be 40 mg). 2 Tablet 3 [...] AT 8AM,4PM AND BEDTIME *PAIN* 84 Capsule 05/09/2023 Active Magnesium Oxide -Mg Supplement 400 (240 Mg) MG Oral Tablet (Mag-Ox) TAKE 1 TABLET BY MOUTH TWICE DAILY IN THE MORNING AND IN THE EVENING FOR SUPPLEMENT 56 Tablet 5 05/11/2023 Active Petroleum Jelly 100 % External GelIndications:Pr [...] Tablet 5 06/23/2023 Active OneTouch Delica Plus [id number] ons:Type 2 diabetes mellitus with hemoglobin A1c goal of less than 7.0% ([facility]) Please check patients blood sugar before lunch on days that he attends the day program 400 Each 3 07/03/2023 Active Loperamide HCl 2 MG Oral Tablet (Immodium (A-D)) Take 1 Tablet by mouth 3 times a day as needed for Diarrhea. 30 Tablet 0 07/08/2023 Active Incruse Ellipta 62.5 MCG/ACT Inhalation Aerosol Powder Breath Activated (umeclidinium [place]) Inhale 1 Puff by mouth in the [...] Blood)Indications :DM type 2, not at goal ([facility]) Please check patients blood sugar before lunch on days that he attends the day program 400 Strip 3 07/26/2023 Active Amoxicillin-Pot Clavulanate 875-125 MG Oral Tablet 1 Tablet. 0 07/19/2023 Active Dulaglutide 1.5 MG/0.5ML Subcutaneous Solution Pen-injector (Trulicity)Indica tions:Type 2 diabetes mellitus with diabetic mononeuropathy, without long-term current use of insulin (HCC) Inject 1.5 mg under the skin once a week. 2 mL 11 07/31/2023 Active Trulicity 1.5 MG/0.5ML Subcutaneous Solution Pen-injector (Dulaglutide) Inject 1.5 mg under the skin once a week. 0.5 mL 1 07/25/2023 3 Discontinu ed(Medicat ion List Clean Up) Dulaglutide 1.5 MG/0.5ML Subcutaneous Solution Pen-injector (Trulicity) Inject 1.5 mg under the skin once a week. 2 mL 11 07/28/2023 3 Discontinu ed(Patient preference /discontin uation) Dulaglutide 1.5 MG/0.5ML Subcutaneous Solution Pen-injector (Trulicity)Indica tions:Type 2 diabetes mellitus with diabetic mononeuropathy, without long-term current use of insulin (HCC) Inject 1.5 mg under the skin once a week. 2 mL 11 07/29/2023 3 Discontinu ed(Patient preference /discontin uation) Hospital, Clinic, or Other Facility Administered Medication Ordered Dose Route Frequency Start Date End Date Status Zinc Oxide (Desitin/Kevon) 40 % ointmentIndications:Skin ulcer of sacrum, unspecified ulcer stage (HCC) TOP Daily(AM) 04/08/2022 Active Zinc Oxide (Desitin) 40 % pasteIndications:Open bite of buttock, unspecified laterality, initial encounter TOP BID (.AM/PM) 11/05/2022 Active documented as of this encounter (statuses as of 07/31/2023) Active Problems Problem Noted Date Primary male [...] as of this encounter (statuses as of 07/31/2023) Resolved Problems Problem Noted Date Resolved Date [...] as of this encounter (statuses as of 07/31/2023) Immunizations Name Administration Dates Next Due COVID-19 mRNA, LNP-s, No Pre serve, 2-Dose Series ([employer]) 09/11/2021,12/20/2020,11/29/2020 Covid-19, Mrna, Lnp-s, Pf, B ivalent, 30 Mcg, IM, 12 yrs and above ([employer]) 09/13/2022 H1N1 2009 Influenza, IM 09/04/2009 Hepatitis B, 20+ yrs 04/06/2014,11/05/19 14,09/29/2013,090 02/2012,07/23/2010 PPD 04/14/2023,,05/03/2019,04/27,06/10/2014,07/01/2012,07/02/20 11,06/28/2009,07/22/2007,01/08/2006,0 05/27/1998 06/30/2009 Pneumococcal Conjugate [...] encounter Miscellaneous Notes * Telephone Encounter - Jil Jeffers, [facility] - 07/31/2023 12:17 PM EDT Signed Prescriptions: Disp Refills Dulaglutide 1.5 MG/0.5ML Subcutaneous Solu*2 mL 11 Sig: Inject 1.5 mg under the skin once a week.Authorizing Provider: CHRISTY PORTILLO User: JIL JEFFERS * Telephone Encounter - Jil Jeffers [facility] - 07/31/2023 12:16 PM EDT Rerouted as requested. Thank you, Jil Jeffers, PharmD Clinical Pharmacist [facility] ([facility]) (formerly Telepharmacy) 07/31/23 12:16 PM [phone] * Telephone Encounter - Torie Cordero CPhT - 07/31/2023 12:12 PM EDT Please reroute Rx to [address] Pending Prescriptions: Disp Refills Dulaglutide 1.5 MG/0.5ML Subcutaneous Veronique*2 mL 11 Sig: Inject 1.5 mg under the skin once a week. Last Visit: 07/25/2023 (in office), 09/26/2021 (telemedicine) Visit date not found If no future appointments scheduled, and last appointment is greater than a year ago, please schedule patient for a follow-up appointment Last date the medication was ordered: 07/29/2023 Patient Phone Numbers Labs: Lab Results Component Value Date/Time CREAT 0.6 07/09/2023 02:09 PM CREAT 0.70 01/02/2023 12:00 AM CREAT 0.9 12/23/2019 10:59 AM CREAT 0.7 07/12/1996 11:03 AM POTASSIUM 4.6 07/09/2023 02:09 PM POTASSIUM 4.0 01/02/2023 12:00 AM POTASSIUM 5.0 11/25/2018 10:26 AM POTASSIUM 4.4 08/24/1996 10:49 AM TSH 1.19 08/01/2022 11:23 AM TSH 1.61 12/31/2016 02:50 PM LDLCALC 72 08/01/2022 11:23 AM LDLCALC 59 05/19/2019 08:17 AM LDLDIRECT 79 05/12/2018 08:22 AM ALT 22 07/09/2023 02:09 PM ALT 12 11/25/2018 10:26 AM ALT 23 07/12/1996 11:03 AM HGBA1C 8.0 (H) 05/22/2023 10:20 AM HGBA1C 6.7 (H) 11/08/2020 10:22 AM HGBA1C 6.2 (H) 07/12/1996 11:03 AM documented in this encounter Plan of Treatment Upcoming Encounters Date Type Specialty Care Team Description 08/27/2023 Office Visit Endocrinology Rogers Dwyer MD [address] [place] [address] 08/30/2023 Office Visit Family Medicine [place] IIIAndrew MD [address] [place] [address] 09/09/2023 Office Visit Rheumatology Austin Saravia CRNP [address] [place] [address] 09/29/2023 Office Visit Cardiology Natasha Avery CRNP [address] [place] [address] 11/26/2023 Imaging Radiology 12/11/2023 Imaging Radiology 12/23/2023 Office Visit Urology Joseph Doty MD [address] [facility] [address] [place] [address] Scheduled Procedures Name Priority Associated Diagnoses Date/Ti [...] D LEVEL ONCE IN A LIFETIME-USE SMARTSET# [id number] Completed 09/26/2022, 08/01/2022, 01/03/2021, Additional history exists LUNG CANCER SCREENING - USE SMARTSET 99599 Completed 11/22/2022, 11/20/2021, 09/04/2020, Additional history exists [...] as of this encounter Visit Diagnoses Diagnosis Type 2 diabetes mellitus with diabetic mononeuropathy, without long-term current use of insulin (HCC) documented in this encounter Care Teams Sql Manager Relationship Specialty Start Date End Date Andrew Montague III, MD [address] [place] [address], [place] [address] PCP - General 12/22/01 documented as of this encounter
--- OUTSIDE RECORDS SUMMARY | 2023-09-16 03:08 | External Medical Summary | Summary of Care ---
Author Name Unknown Organization [facility] Address [address] [place] [address] Phone [phone] Care Team Providers Care Waterproof Bag Cutting Machine Operator Name Role Phone Clari ORELLANA MD, Andrew Lane Primary Care Provider [phone] Reason for Visit * Reason Onset Date Comments Pharmacy Questions 07/25/2023 Trulicity 1.5 MG/0.5ML Subcutaneous Solution Pen-injector (Dulaglutide) Encounter Details Date Type Department Care Team Description 07/25/2023 Telephone Family Practice [facility] [address] [place] [address] Andrew Montague III, MD [address] [place] [address] Pharmacy Questions (Trulicity 1.5 MG/0.5ML... Allergies Active Allergy Reactions Severity Noted Date Comments Aspirin 04/06/2015 Cephalexin Unknown 11/07/2010 Cephalexin 05/27/2022 Cephalosporins Unknown 01/14/2001 Corticosteroids Unknown 01/14/2001 MEDROL PACK Haloperidol 10/25/2021 Tilactase Diarrhea 05/19/2018 Levofloxacin 07/28/2020 QUESTIONABLE allergy- rash AFTER finishing course of abx on chest Shellfish Allergy 04/06/2015 documented as of this encounter (statuses as of 07/29/2023) Medications Medication Sig Dispensed Refills Start Date End Date Status [employer] SYSTEM W/DEVICE KITIndications:DM type 2, goal A1c [...] in once a day 212 g 5 05/14/2023 Active diphenhydrAMINE HCl 12.5 MG Oral [...] Tablet 5 06/23/2023 Active OneTouch Delica Plus [id number] ns:Type 2 diabetes mellitus with hemoglobin A1c [...] MCG/ACT Inhalation Aerosol Powder Breath Activated (umeclidinium [place]) Inhale 1 Puff by mouth in the [...] with meals. 100 Capsule 3 07/15/2023 Active Amoxicillin-Pot Clavulanate 875-125 MG Oral Tablet 1 Tablet. 0 07/19/2023 Active Trulicity 1.5 MG/0.5ML Subcutaneous Solution Pen-injector (Dulaglutide) Inject 1.5 mg under the skin once a week. 0.5 mL 1 07/25/2023 Active Dulaglutide 1.5 MG/0.5ML Subcutaneous Solution Pen-injector (Trulicity) Inject 1.5 mg under the skin once a week. 2 mL 11 07/28/2023 Active Hospital, Clinic, or Other Facility Administered Medication Ordered Dose Route Frequency Start Date End Date Status Zinc Oxide (Desitin/Kevon) 40 % ointmentIndications:Skin ulcer of sacrum, unspecified ulcer stage ([facility]) TOP Daily(AM) 04/08/2022 Active Zinc Oxide (Desitin) 40 % pasteIndications:Open bite of buttock, unspecified laterality, initial encounter TOP BID (.AM/PM) 11/05/2022 Active documented as of this encounter (statuses as of 07/29/2023) Active Problems Problem Noted Date Primary male [...] as of this encounter (statuses as of 07/29/2023) Resolved Problems Problem Noted Date Resolved Date [...] as of this encounter (statuses as of 07/29/2023) Immunizations Name Administration Dates Next Due COVID-19 mRNA, LNP-s, No Pre serve, 2-Dose Series ([employer]) 09/11/2021,12/20/2020,11/29/2020 Covid-19, Mrna, Lnp-s, Pf, B ivalent, 30 Mcg, IM, 12 yrs and above ([employer]) 09/13/2022 H1N1 2009 Influenza, IM 09/04/2009 Hepatitis [...] encounter Miscellaneous Notes * Telephone Encounter - TRINIDAD Shepherd - 07/25/2023 1:29 PM EDT Patient calling in to check on the status of previous message. Patient Called within 48 hour timeframe. Reminded patient of 48 hour turn-around time. * Telephone Encounter - TRINIDAD Ellis - 07/25/2023 12:56 PM EDT [facility] calling regarding medication: Trulicity 1.5 MG/0.5ML Subcutaneous Solution Pen-injector (Dulaglutide) Pharmacy states rx only written for .5mL which is only one injection. Pharmacy asking for rx to be sent for 2mL. Needs new script sent with ICP ten code. Please advise. documented in this encounter Plan of Treatment Upcoming Encounters Date Type Specialty Care Team Description 08/27/2023 Office Visit Endocrinology Reymundo, Mccloud, MD [address] [place] [address] 08/30/2023 Office Visit Family Medicine Clari Andrew ORELLANA MD [address] [place] [address] 09/09/2023 Office Visit Rheumatology Austin Saravia CRNP [address] [facility] [place] [address] 09/29/2023 Office Visit Cardiology Natasha Avery CRNP [address] [place] [address] 11/26/2023 Imaging Radiology 12/11/2023 Imaging Radiology 12/23/2023 Office Visit Urology Joseph Doty MD [address] [place] [address] Scheduled Procedures [...] D LEVEL ONCE IN A LIFETIME-USE SMARTSET# [id number] Completed 09/26/2022, 08/01/2022, 01/03/2021, Additional history exists LUNG CANCER SCREENING - USE SMARTSET 99731 Completed 11/22/2022, 11/20/2021, 09/04/2020, Additional history exists [...] filedocumented as of this encounter Care Teams Waterproof Bag Cutting Machine Operator Relationship Specialty Start Date End Date Andrew Montague III, MD [address] [facility] [place] [address] PCP - General 12/22/01 documented as of this encounter
--- OUTSIDE RECORDS SUMMARY | 2023-09-16 03:09 | External Medical Summary ---
Author Name Unknown Address Unknown Organization K01:[facility] [place] [address] [place] [id number] Laboratory Report Ordering Provider Test Date Status HARRY FOLEY III 07/23/2023 09:30:12 Final Observation Date Value Abnormality Reference (Units) Status Bacteria identified in Specimen by Culture 07/23/2023 09:30:12 No Aeromonas species or Plesiomonas species isolated. Final Test: Gastrointestinal Patho gen Panel Culture
Specimen Source: Stool
Specimen Type: Stool
Specimen Date: 07/23/2023 9:30 AM
Result Date: 07/25/2023 2:04 PM
Result Status: Final result
Resulting Lab: [facility]
[address]
[place] [id number]

CULTURE

No Aeromonas species or Plesiomonas species isolated.

null Performing Location [facility] [place] [address] [place] [id number]
--- OUTSIDE RECORDS SUMMARY | 2023-09-16 03:09 | External Medical Summary | Summary of Care ---
Author Name Unknown Organization [facility] Address [address] [place] [address] Phone [phone] Care Team Providers Care Envelope Machine Operator Name Role Phone Clari ORELLANA MD, Andrew Lane Primary Care Provider [phone] Reason for Visit * Reason Comments Outpatient Testing Encounter Details Date Type Department Care Team Description 07/21/[address] [facility] [address] [place] [id number] [facility] [address] [place] [address] Arrived Allergies Active Allergy Reactions Severity Noted Date Comments Aspirin 04/06/2015 Cephalexin Unknown 11/07/2010 Cephalexin 05/27/2022 Cephalosporins Unknown 01/14/2001 Corticosteroids Unknown 01/14/2001 MEDROL PACK Haloperidol 10/25/2021 Tilactase Diarrhea 05/19/2018 Levofloxacin 07/28/2020 QUESTIONABLE allergy- rash AFTER finishing course of abx on chest Shellfish Allergy 04/06/2015 documented as of this encounter (statuses as of 07/21/2023) Medications Medication Sig Dispensed Refills Start Date End Date Status [employer] SYSTEM W/DEVICE KITIndications:DM type 2, goal A1c [...] THREE TIMES DAILY *CIRCULATION* 84 Tablet 5 01/28/2023 Active DIURETIC TITRATION PLAN If no [...] IN 24HRS* 112 Tablet 5 03/15/2023 Active Glimepiride 1 MG Oral Tablet (Amaryl) TAKE ONE TABLET BY MOUTH DAILY. *DM* 28 Tablet 5 03/14/2023 Active Furosemide 20 MG Oral Tablet (Lasix) Take one tab by mouth on Thursday 03/29 and Friday 03/30 in addition to the routine 20 mg daily dose. (Total daily dose for Thursday 03/29 and Chang 6/4 will be 40 mg). 2 Tablet 3 04/02/2023 Active Additional Information Patient not taking.Reported on 07/16/2023 Polyethylene Glycol 3350 17 GM/SCOOP Oral Powder (MiraLax) Take 17 g by mouth as needed for Constipation. Dissolve one heaping tablespoon in 8 ounces of water or juice.Give every 72 hours if no bowel movement 507 g 8 04/03/2023 Active Underpads Extra Large Use as directed for incontinence. 90 Each 11 04/08/2023 Active Testosterone 20.25 MG/ACT (1.62%) Transdermal Gel (AndroGel Pump) APPLY ONE PUMP TO THE SHOULDER DAILY.To clean, dry, unbroken skin on the shoulders or upper arms. 75 g 0 04/14/2023 Active Additional Information Patient not taking.Reported on 07/16/2023 metFORMIN HCl 1000 MG Oral Tablet (Glucophage) [...] a day 212 g 5 05/14/2023 Active Additional Information Patient not taking.Reported on 07/16/2023 diphenhydrAMINE HCl 12.5 MG Oral Tablet Chewable (Benadryl Allergy Childrens)Indicati ons:Pruritus Take 12.5 mg by mouth in the morning and 12.5 mg in the evening. For 2 weeks then as needed for itching. 30 Tablet 2 05/14/2023 Active Trulicity 0.75 MG/0.5ML Subcutaneous Solution Pen-injector (Dulaglutide) Inject 0.75 mg under the skin once a week. 6 mL 6 05/23/2023 Active D3-1000 25 MCG (1000 UT) Oral [...] bedtime. 60 Tablet 5 06/23/2023 Active OneTouch Ultra In Vitro Strip (Glucose Blood)Indications: DM type 2, not at goal ([facility]) Please check patients blood sugar before lunch on days that he attends the day program 400 Strip 3 07/03/2023 Active OneTouch Delica Plus [id number] ns:Type 2 diabetes mellitus with hemoglobin A1c goal of less than 7.0% ([facility]) Please check patients blood sugar before lunch on days that he attends the day program 400 Each 3 07/03/2023 Active Loperamide HCl 2 MG Oral Tablet (Immodium (A-D)) Take 1 Tablet by mouth 3 times a day as needed for Diarrhea. 30 Tablet 0 07/08/2023 Active Incruse Ellipta 62.5 MCG/ACT Inhalation Aerosol Powder Breath Activated (umeclidinium [place]) Inhale 1 Puff by mouth in the morning. 30 Each 11 07/08/2023 Active Triamcinolone Acetonide 0.1 % External Ointment (Aristocort)Indica tions:Dermatitis,P ruritus Apply topically to affected area 2 times a day. To affected area for 4 weeks or until healed 80 g 1 07/11/2023 Active Additional Information Patient not taking.Reported on 07/16/2023 Incontinence Brief Large USE DIRECTED FOR INCONTINENCE [...] as of this encounter (statuses as of 07/21/2023) Active Problems Problem Noted Date Primary male [...] as of this encounter (statuses as of 07/21/2023) Resolved Problems Problem Noted Date Resolved Date [...] as of this encounter (statuses as of 07/21/2023) Immunizations Name Administration Dates Next Due COVID-19 mRNA, LNP-s, No Pre serve, 2-Dose Series ([employer]) 09/11/2021,12/20/2020,11/29/2020 Covid-19, Mrna, Lnp-s, Pf, B ivalent, 30 Mcg, IM, 12 yrs and above ([employer]) 09/13/2022 H1N1 2009 Influenza, IM 09/04/2009 Hepatitis B, 20+ yrs 04/06/2014,11/05/19 14,09/29/2013,02/2012,07/23/2010 PPD 04/14/2023,,05/03/2019,04/27,06/10/2014,07/01/2012,07/02/20 11,06/28/2009,07/22/2007,01/08/2006,0 05/27/1998 06/30/2009 Pneumococcal Conjugate Vacc, 13 Valent (Prevnar) 09/22/2019 Pneumococcal Polysaccharide PPV23 (Pneumovax) 02/21/2021,08/13/2014,10/27/1997,10/1988 Seasonal Influenza, PF, 6 mo ns & Above, IM , (Flulaval) 07/28/2020,08/20/2018,08/21/2017 Seasonal Influenza, Quadriva lent Hd (Fluzone [...] Encounters Date Type Specialty Care Team Description 07/25/2023 Office Visit Family Medicine Zahraa Portillo DO [address] [place] [address] 08/27/2023 Office Visit Endocrinology Rogers Dwyer MD [address] [place] [address] 08/30/2023 Office Visit Family Medicine Andrew Montague III, MD [address] [place] [address] 09/09/2023 Office Visit Rheumatology Austin Saravia CRNP [address] [place] [address] 09/29/2023 Office Visit Cardiology Natasha Avery CRNP [address] [place] [address] 12/11/2023 Imaging Radiology 12/23/2023 Office Visit Urology Joseph Doty MD [address] [facility] [address] [address] Scheduled Procedures Name Priority Associated Diagnoses Date/Ti me COLONOSCOPY FLEXIBLE PROXIMAL DIAGNOSTIC Recall History of colon polyps Health Maintenance Due Date Last Done Comments Alpha-1 Antitrypsin 1972 Albumin/Creatinine Ratio 03/19/2023 022, 04/26/2020, 05/20/2019, Additional history exists DIABETES-EYE EXAM 05/31/2023 05/31/2022, , 05/28/2019, Additional history exists Depression Screening 07/09/2023 07/09/2022 B-12 08/01/2023 08/01/2022, 080 10/2021, 10/04/2021, Additional history exists HbA1c 11/22/2023 05/22/2023, 04/26, 08/16/2022, Additional history exists GFR 07/09/2024 07/09/2023, 04/27, 05/14/2023, Additional history exists Diabetic Foot Exam 07/16/2024 07/16/2023, 0 07/09/2022, 11/08/2020, Additional history exists O2 ASSESSMENT COMPLETED IN PAST YEAR FOR COPD 07/16/2024 07/16/2023 DXA Scan 03/11/2025 03/11/2023, 04/0 04/2021, 01/18/2019, [...] history exists AAA Screening Completed 05/15/2021, 10/05/2019 COVID-19 Vaccine Completed 09/13/2022, , 12/20/2020, Additional history exists VITAMIN D LEVEL ONCE IN A LIFETIME-USE SMARTSET# [id number] Completed 09/26/2022, 08/01/2022, 01/03/2021, Additional history exists LUNG CANCER SCREENING - USE SMARTSET [id number] Completed 11/22/2022, 11/20/2021, 09/04/2020, Additional history exists [...] filedocumented as of this encounter Care Teams Envelope Machine Operator Relationship Specialty Start Date End Date Clari ORELLANA, Andrew Lane MD [address] [place] [address], [place] [address] PCP - General 12/22/01 documented as of this encounter
--- OUTSIDE RECORDS SUMMARY | 2023-09-16 03:09 | External Medical Summary | Summary of Care ---
Author Name Unknown Organization [facility] Address [address] [place] [address] Phone [phone] Care Team Providers Care Bottom Cager Name Role Phone Clari ORELLANA MD, Andrew Lane Primary Care Provider [phone] Reason for Visit * Reason Comments Outpatient Testing Encounter Details Date Type Department Care Team Description 07/21/2023 Laboratory Laboratory Scenery [facility] [address] [place] [phone] [facility] Scenery [address] [place] [address] Arrived Allergies Active Allergy Reactions Severity Noted Date Comments Aspirin 04/06/2015 Cephalexin Unknown 11/07/2010 Cephalexin 05/27/2022 Cephalosporins Unknown 01/14/2001 Corticosteroids Unknown 01/14/2001 MEDROL PACK Haloperidol 10/25/2021 Tilactase Diarrhea 05/19/2018 Levofloxacin 07/28/2020 QUESTIONABLE allergy- rash AFTER finishing course of abx on chest Shellfish Allergy 04/06/2015 documented as of this encounter (statuses as of 07/21/2023) Medications Medication Sig Dispensed Refills Start Date End Date Status Roadtrippers SYSTEM W/DEVICE KITIndications:DM type 2, goal A1c [...] Blood)Indications: DM type 2, not at goal ([facility]) Please check patients blood sugar before lunch on days that he attends the day program 400 Strip 3 07/03/2023 Active OneTouch Delica Plus [id number] ns:Type 2 diabetes mellitus with hemoglobin A1c goal of less than 7.0% ([facility]) Please check patients blood sugar before lunch on days that he attends the day program 400 Each 3 07/03/2023 Active Loperamide HCl 2 MG Oral Tablet (Immodium (A-D)) Take 1 Tablet by mouth 3 times a day as needed for Diarrhea. 30 Tablet 0 07/08/2023 Active Incruse Ellipta 62.5 MCG/ACT Inhalation Aerosol Powder Breath Activated (umeclidinium [place]) Inhale 1 Puff by mouth in the [...] mRNA, LNP-s, No Pre serve, 2-Dose Series ([employer]) 09/11/2021,12/20/2020,11/29/2020 Covid-19, Mrna, Lnp-s, Pf, B ivalent, 30 Mcg, IM, 12 yrs and above ([employer]) 09/13/2022 H1N1 2009 Influenza, IM 09/04/2009 Hepatitis [...] Visit Family Medicine Zahraa Portillo DO [address] [place] [address] 08/27/2023 Office Visit Endocrinology Rogers Dwyer MD [address] [place] [address] 08/30/2023 Office Visit Family Medicine Andrew Montague III, MD [address] [place] [address] 09/09/2023 Office Visit Rheumatology Austin Saravia CRNP [address] [place] [address] 09/29/2023 Office Visit Cardiology Natasha Avery CRNP [address] [place] [address] 12/11/2023 Imaging Radiology 12/23/2023 Office Visit Urology Joseph Doty MD [address] [facility] [address] [place] [address] Scheduled Procedures [...] D LEVEL ONCE IN A LIFETIME-USE SMARTSET# [id number] Completed 09/26/2022, 08/01/2022, 01/03/2021, Additional history exists LUNG CANCER SCREENING - USE SMARTSET [id number] Completed 11/22/2022, 11/20/2021, 09/04/2020, Additional history exists [...] filedocumented as of this encounter Care Teams Bottom Cager Relationship Specialty Start Date End Date Clari ORELLANA, Andrew Lane MD [address] [place] [address], [place] [address] PCP - General 12/22/01 documented as of this encounter
--- OUTSIDE RECORDS SUMMARY | 2023-09-16 03:09 | External Medical Summary | Summary of Care ---
Author Name Unknown Organization [facility] Address [address] [place] [address] Phone [phone] Care Team Providers Care Fish Peddler Name Role Phone Clari ORELLANA MD, Og Lane Primary Care Provider [phone] Reason for Visit * Reason Onset Date Comments Medication Refill 07/25/2023 Encounter Details Date Type Department Care Team Description 07/25/[address] [facility] [address] [facility] [place] [address] Og Mcdonald III, MD [address] [place] [address] DM type 2, not at goal (HCC) Allergies Active Allergy Reactions Severity Noted Date Comments Aspirin 04/06/2015 Cephalexin Unknown 11/07/2010 Cephalexin 05/27/2022 Cephalosporins Unknown 01/14/2001 Corticosteroids Unknown 01/14/2001 MEDROL PACK Haloperidol 10/25/2021 Tilactase Diarrhea 05/19/2018 Levofloxacin 07/28/2020 QUESTIONABLE allergy- rash AFTER finishing course of abx on chest Shellfish Allergy 04/06/2015 documented as of this encounter (statuses as of 07/26/2023) Medications Medication Sig Dispensed Refills Start Date End Date Status Zumper SYSTEM W/DEVICE KITIndications:DM type 2, goal A1c [...] CAPSULE BY MOUTH DAILY. *SUPPLEMENT* 28 Capsule 06/18/2023 Active Metoprolol Tartrate 25 MG Oral Tablet (Lopressor) TAKE 1/2 TABLET (12.5MG) BY MOUTH TWICE DAILY FOR HTN 90 Tablet 3 06/18/2023 Active guaiFENesin ER 600 MG Oral Tablet Extended Release 12 Hour (Mucinex)Indicati ons:Cough Take 1 Tablet by mouth in the morning and 1 Tablet before bedtime. 60 Tablet 5 06/23/2023 Active OneTouch Delica Plus [id number] ons:Type 2 diabetes mellitus with hemoglobin A1c [...] MCG/ACT Inhalation Aerosol Powder Breath Activated (umeclidinium [place]) Inhale 1 Puff by mouth in the [...] a week. 0.5 mL 1 07/25/2023 Active OneTouch Ultra In Vitro Strip (Glucose Blood)Indications :DM type 2, not at goal (HCC) Please check patients blood sugar before lunch on days that he attends the day program 400 Strip 3 07/03/2023 3 Discontinu ed(Refill) Hospital, Clinic, or Other Facility Administered Medication Ordered Dose Route Frequency Start Date End Date Status Zinc Oxide (Desitin/Kevon) 40 % ointmentIndications:Skin ulcer of sacrum, unspecified ulcer stage (HCC) TOP Daily(AM) 04/08/2022 Active Zinc Oxide (Desitin) 40 % pasteIndications:Open bite of buttock, unspecified laterality, initial encounter TOP BID (.AM/PM) 11/05/2022 Active documented as of this encounter (statuses as of 07/26/2023) Active Problems Problem Noted Date Primary male [...] as of this encounter (statuses as of 07/26/2023) Resolved Problems Problem Noted Date Resolved Date [...] Taxonomy. ACTIVE CASE MANAGEMENT Shanthi Dawson RN [phone] 05/20/2008 08/13/2010 Type 2 diabetes mellitus wit [...] as of this encounter (statuses as of 07/26/2023) Immunizations Name Administration Dates Next Due COVID-19 mRNA, LNP-s, No Pre serve, 2-Dose Series ([employer]) 09/11/2021,12/20/2020,11/29/2020 Covid-19, Mrna, Lnp-s, Pf, B ivalent, 30 Mcg, IM, 12 yrs and above ([employer] [facility]) 09/13/2022 H1N1 2009 Influenza, IM 09/04/2009 Hepatitis [...] encounter Miscellaneous Notes * Telephone Encounter - Teresa Luong RPh - 07/26/2023 11:54 AM EDTSigned Prescriptions: Disp Refills OneTouch Ultra In Vitro Strip (Glucose Blo*[address] St*3 Sig: Please check patients blood sugar before lunch on days that he attends the day programAuthorizing Provider:OG MCDONALD III User: TERESA ALVAREZ documented in this encounter Plan of Treatment Upcoming Encounters Date Type Specialty Care Team Description 08/27/2023 Office Visit Endocrinology Rogers Dwyer MD [address] [place] [address] 08/30/2023 Office Visit Family Medicine Clari IIIOg MD [address] [place] [address] 09/09/2023 Office Visit Rheumatology Austin Saravia CRNP [address] [place] [address] 09/29/2023 Office Visit Cardiology Natasha Avery CRNP [address] [place] [address] 11/26/2023 Imaging Radiology 12/11/2023 Imaging Radiology 12/23/2023 [...] D LEVEL ONCE IN A LIFETIME-USE SMARTSET# [id number] Completed 09/26/2022, 08/01/2022, 01/03/2021, Additional history exists LUNG CANCER SCREENING - USE SMARTSET [id number] Completed 11/22/2022, 11/20/2021, 09/04/2020, Additional history exists [...] as of this encounter Visit Diagnoses Diagnosis DM type 2, not at goal (HCC) Type II or unspecified type diabetes mellitus without mention of complication, not stated as uncontrolled documented in this encounter Care Teams Fish Peddler Relationship Specialty Start Date End Date Og Mcdonald III, MD [address] [place] [address] [place] [address] PCP - General 12/22/01 documented as of this encounter
--- OUTSIDE RECORDS SUMMARY | 2023-09-16 03:09 | External Medical Summary ---
Author Name Unknown Address Unknown Organization K01:[facility] [address] [facility] [address] Laboratory Report Ordering Provider Test Date Status ISI FOLEYAZALIA ORELLANA 07/23/2023 09:30:12 Final Observation Date Value Abnormality Reference (Units ) Status Campylobacter sp DNA.diarrheagenic [Presence] in Stool by MARY with probe detection 07/23/2023 09:30:12 Negative Negative Final Salmonella sp rpoD gene [Presence] in Stool by MARY with probe detection 07/23/2023 09:30:12 Negative Negative Final Shigella species+EIEC invasion plasmid antigen H ipaH gene [Presence] in Stool by MARY with probe detection 07/23/2023 09:30:12 Negative Negative Final Vibrio sp DNA [Identifier] in Specimen by MARY with probe detection 07/23/2023 09:30:12 Negative Negative Final Yersinia enterocolitica recN gene [Presence] in Stool by MARY with probe detection 07/23/2023 09:30:12 Negative Negative Final Escherichia coli Stx1 toxin stx1 gene [Presence] in Stool by MARY with probe detection 07/23/2023 09:30:12 Negative Negative Final Escherichia coli Stx2 toxin stx2 gene [Presence] in Stool by MARY with probe detection 07/23/2023 09:30:12 Negative Negative Final Norovirus genogroups I and II RNA panel - Stool by MARY with probe detection 07/23/2023 09:30:12 Negative Negative Final Rotavirus A RNA [Presence] in Stool by MARY with probe detection 07/23/2023 09:30:12 Negative Negative Final Performing Location [facility] [address] [facility] [address]
--- OUTSIDE RECORDS SUMMARY | 2023-09-16 03:09 | External Medical Summary | Summary of Care ---
Author Name Unknown Organization [facility] Address [address] [place] [address] Phone [phone] Care Team Providers Care Supervisor Sewing Room Name Role Phone Clari ORELLANA MD, Andrew Lane Primary Care Provider [phone] Reason for Visit * Reason Comments Outpatient Testing Encounter Details Date Type Department Care Team Description 07/23/2023 Laboratory Laboratory [facility] [address] [facility] [place] [phone] Pod3, Specimen Drop Off [facility] [address] [facility] [place] [address] Diarrhea, unspecified type Allergies Active Allergy Reactions Severity Noted Date Comments Aspirin 04/06/2015 Cephalexin Unknown 11/07/2010 Cephalexin 05/27/2022 Cephalosporins Unknown 01/14/2001 Corticosteroids Unknown 01/14/2001 MEDROL PACK Haloperidol 10/25/2021 Tilactase Diarrhea 05/19/2018 Levofloxacin 07/28/2020 QUESTIONABLE allergy- rash AFTER finishing course of abx on chest Shellfish Allergy 04/06/2015 documented as of this encounter (statuses as of 07/23/2023) Medications Medication Sig Dispensed Refills Start Date End Date Status Attune Live SYSTEM W/DEVICE KITIndications:DM type 2, goal A1c [...] Blood)Indications: DM type 2, not at goal ([facility]) Please check patients blood sugar before lunch on days that he attends the day program 400 Strip 3 07/03/2023 Active OneTouch Delica Plus [id number] ns:Type 2 diabetes mellitus with hemoglobin A1c goal of less than 7.0% ([facility]) Please check patients blood sugar before lunch on days that he attends the day program 400 Each 3 07/03/2023 Active Loperamide HCl 2 MG Oral Tablet (Immodium (A-D)) Take 1 Tablet by mouth 3 times a day as needed for Diarrhea. 30 Tablet 0 07/08/2023 Active Incruse Ellipta 62.5 MCG/ACT Inhalation Aerosol Powder Breath Activated (umeclidinium [place]) Inhale 1 Puff by mouth in the [...] as of this encounter (statuses as of 07/23/2023) Active Problems Problem Noted Date Primary male [...] as of this encounter (statuses as of 07/23/2023) Resolved Problems Problem Noted Date Resolved Date [...] as of this encounter (statuses as of 07/23/2023) Immunizations Name Administration Dates Next Due COVID-19 mRNA, LNP-s, No Pre serve, 2-Dose Series ([employer]) 09/11/2021,12/20/2020,11/29/2020 Covid-19, Mrna, Lnp-s, Pf, B ivalent, 30 Mcg, IM, 12 yrs and above ([employer]) 09/13/2022 H1N1 2009 Influenza, IM 09/04/2009 Hepatitis [...] Visit Family Medicine Zahraa Portillo DO [address] [place] [address] 08/27/2023 Office Visit Endocrinology Rogers Dwyer MD [address] [place] [address] 08/30/2023 Office Visit Family Medicine Andrew Montague III, MD [address] [place] [address] 09/09/2023 Office Visit Rheumatology Austin Saravia CRNP [address] [facility] [place] [address] 09/29/2023 Office Visit Cardiology Natasha Avery CRNP [address] [place] [address] 12/11/2023 Imaging Radiology 12/23/2023 Office Visit Urology Joseph Doty MD [address] [facility] [address] [place] [address] Pending Results Name Type Priority Associated Diagnoses Date /Time GASTROINTESTINAL PATHOGEN PANEL, STOOL Lab Routine Diarrhea, unspecified type 07/23/2023 9:30 AM EDT GASTROINTESTINAL PATHOGEN PANEL PCR Lab Routine Diarrhea, unspecified type 07/23/2023 9:30 AM EDT GASTROINTESTINAL PATHOGEN PANEL CULTURE Lab Routine Diarrhea, unspecified type 07/23/2023 9:30 AM EDT Scheduled Procedures Name Priority Associated Diagnoses Date/Ti [...] 08/16/2022, Additional history exists GFR 07/09/2024 07/09/2023, 07/2 04/2023, 05/14/2023, Additional history exists Diabetic Foot Exam [...] D LEVEL ONCE IN A LIFETIME-USE SMARTSET# [id number] Completed 09/26/2022, 08/01/2022, 01/03/2021, Additional history exists LUNG CANCER SCREENING - USE SMARTSET [id number] Completed 11/22/2022, 11/20/2021, 09/04/2020, Additional history exists [...] as of this encounter Visit Diagnoses Diagnosis Diarrhea, unspecified type documented in this encounter Additional Health Concerns Infection Onset Date Last Indicated Resolved Time Gastrointestinal Rule-Out 07/23/2023 07/23/2023 documented as of this encounter Care Teams Supervisor Sewing Room Relationship Specialty Start Date End Date Clari ORELLANA, Andrew Lane MD [address] [place] [address], [place] [address] PCP - General 12/22/01 documented as of this encounter
--- OUTSIDE RECORDS SUMMARY | 2023-09-16 03:10 | External Medical Summary | Summary of Care ---
Author Name Unknown Organization [facility] Address [address] [place] [address] Phone [phone] Care Team Providers Care Superintendent Police Name Role Phone Clari ORELLANA MD, Andrew Lane Primary Care Provider [phone] Reason for Visit * Reason Onset Date Comments Adult Annual Wellness Visit, Subsequent Visit Medication Administration 07/16/2023 Flu an d/or Pneumo Inj Encounter Details Date Type Department Care Team Description 07/16/[address] [facility] [address] [place] [id number] Im, Nurse Annual Wellness [facility] [address] [place] [address] Adult Annual Wellness Visit, Subsequent Vi... Allergies Active Allergy Reactions Severity Noted Date Comments Aspirin 04/06/2015 Cephalexin Unknown 11/07/2010 Cephalexin 05/27/2022 Cephalosporins Unknown 01/14/2001 Corticosteroids Unknown 01/14/2001 MEDROL PACK Haloperidol 10/25/2021 Tilactase Diarrhea 05/19/2018 Levofloxacin 07/28/2020 QUESTIONABLE allergy- rash AFTER finishing course of abx on chest Shellfish Allergy 04/06/2015 documented as of this encounter (statuses as of 07/16/2023) Medications Medication Sig Dispensed Refills Start Date End Date Status Videobot SYSTEM W/DEVICE KITIndications:DM type 2, goal A1c [...] Blood)Indications: DM type 2, not at goal ([facility]) Please check patients blood sugar before lunch on days that he attends the day program 400 Strip 3 07/03/2023 Active OneTouch Delica Plus [id number] ns:Type 2 diabetes mellitus with hemoglobin A1c goal of less than 7.0% ([facility]) Please check patients blood sugar before lunch on days that he attends the day program 400 Each 3 07/03/2023 Active Loperamide HCl 2 MG Oral Tablet (Immodium (A-D)) Take 1 Tablet by mouth 3 times a day as needed for Diarrhea. 30 Tablet 0 07/08/2023 Active Incruse Ellipta 62.5 MCG/ACT Inhalation Aerosol Powder Breath Activated (umeclidinium [place]) Inhale 1 Puff by mouth in the [...] as of this encounter (statuses as of 07/16/2023) Active Problems Problem Noted Date Primary male [...] as of this encounter (statuses as of 07/16/2023) Resolved Problems Problem Noted Date Resolved Date [...] as of this encounter (statuses as of 07/16/2023) Immunizations Name Administration Dates Next Due COVID-19 mRNA, LNP-s, No Pre serve, 2-Dose Series ([employer]) 09/11/2021,12/20/2020,11/29/2020 Covid-19, Mrna, Lnp-s, Pf, B ivalent, 30 Mcg, IM, 12 yrs and above ([employer]) 09/13/2022 H1N1 2009 Influenza, IM 09/04/2009 Hepatitis [...] Reading Time Taken Comments Blood Pressure 110/72 07/16/2023 10:06 AM EDT Pulse 64 07/16/2023 10:06 AM EDT Temperature 35.9 C (96.6 F) 07/16/2023 1 0:06 AM EDT Respiratory Rate - - Oxygen Saturation 96% 07/16/2023 10: 06 AM EDT Inhaled Oxygen Concentration - - Weight 66.6 kg (146 lb 12.8 oz) 023 10:06 AM EDT Height 175.3 cm (5' 9") 07/16/2023 10:0 6 AM EDT Body Mass Index 21.68 07/16/2023 10:06 AM EDT documented in this encounter Patient Instructions * Patient Instructions* Belen Barrios RN - 07/16/2023 9:30 AM EDT Diabetes: Keeping Feet Healthy Inspect your feet every day for signs of a problem. Diabetes can damage nerves in your feet and cause neuropathy. This condition makes it hard for you to feel injuries or sore spots. Diabetes can also change blood flow, making it harder for small problems, like a blister, to heal properly. In fact, minor injuries can quickly become serious infections that send you to the hospital. Practice self-care to protect your feet and keep them healthy. Take Special Care Inspect your feet daily for problems such as redness, blisters, cracks, dry skin, or numbness. Use a mirror to see the bottoms of your feet. Or, ask for help. Manage your diabetes. Monitor and control your blood sugar. Take all your medications as prescribed. Avoid walking barefoot, even indoors. Wash your feet with warm water and mild soap. Dry well, especially between toes. Dont treat corns or calluses yourself. Talk to your doctor or furnace checker (a doctor who specializes in foot care) if you need assistance trimming your toenails. Use moisturizing cream or lotion if you have dry skin, but dont use it between toes. Dont use heating pads on your feet. If you have neuropathy, you could get a burn and not feel it. Stop smoking. Smoking restricts blood flow and can make it harder for wounds to heal. Have Regular Checkups Foot problems can develop quickly. So be sure to follow your healthcare teams schedule for regular checkups. During office visits, take off your shoes and socks as soon as you get in the exam room. Ask your healthcare provider to examine your feet for problems. This will make it easier to find and treat small skin irritations before they get worse. Regular checkups can also help keep track of the blood flow and feeling in your feet. If you have neuropathy, you may need to have checkups more often. Wear Proper Footwear Wearing proper footwear is very important. If areas of your feet have been damaged by too much pressure, your healthcare provider may recommend changing your footwear. In some cases, avoiding high heels or tight work boots may be all thats needed. Or, your healthcare provider may recommend special shoes or custom inserts. These help protect your feet and keep existing irritations from getting worse. If you need special footwear, ask your healthcare provider if you qualify for [facility] diabetic shoe program. Make Sure Shoes and Socks Fit Any pair of shoes--new or old--should feel comfortable as soon as you put them on. There shouldnt be any rubbing when you walk. Wear the right shoe for any activity. For instance, a running shoe is designed to keep your feet injury-free while jogging. Buy shoes at the end of the day, when your feet are larger. Make sure they provide support without feeling too loose. Make sure your socks fit, t oo. Wear soft, seamless, well-padded socks for activity. Cotton or microfiber socks are best to help to absorb sweat. To protect your feet, avoid shoes that are open-toed or open-heeled. If you have questions about what kinds of shoes and socks are best, talk to your healthcare team. Get Regular Exercise Regular exercise improves blood flow in your feet. It also increases foot strength and flexibility.Gentle exercises, like walking or riding a stationary bicycle, are best. You can also do special foot exercises. Just be sure to talk with your healthcare provider before starting any exercise program. Also mention if any exercise causes pain, redness, or other signs of foot problems. Note: If you have any kind of break in the skin of your foot or ankle, keep the area clean. Then call your doctor--especially if the area doesnt appear to be healing. [phone] [employer], [address] [place] [address], [place] [id number]. All rights reserved. This information is not intended as a substitute for professional medical care. Always follow your healthcare professional's instructions. Patient Instructions - Fall Prevention (This education is for all patients over 65 regardless of symptoms) Remember to take your current medications as prescribed. In order to prevent falls, you are encouraged to: Exercise Utilize assistive/adaptive devices Avoid multifocal lenses when walking Avoid hazards in home Maintain a regular toileting schedule Any questions please contact our office. Preventing Falls in the Home (This education is for all patients over 65 regardless of symptoms) As you get older, falls are more likely. Thats because your reaction time slows. Your muscles and joints may also get stiffer, making them less flexible. Illness, medications, and vision changes can also affect your balance. A fall could leave you unable to live on your own. To make your home safer, follow these tips: Floors Put nonskid pads under area rugs Remove throw rugs Replace worn floor coverings Tack carpets firmly to each step on carpeted stairs. Put nonskid strips on the edges of uncarpeted stairs Keep floors and stairs free of clutter and cords Arrange furniture so there are clear pathways Clean up any spills right away Bathrooms Install grab bars in the tub or shower Apply nonskid strips or put a nonskid rubber mat in the tub or shower Sit on a bath chair to bathe Use bathmats with nonskid backing Lighting Keep a flashlight in each room Put a nightlight along the pathway between the bedroom and the bathroom [employer] Patient Education Copyright 2008 - 2010 Juan Jose except where otherwise noted Preventing Falls: Exercises to Improve Balance, Flexibility, Strength, and Staying Power (This education is for all patients over 65 regardless of symptoms) Certain types of exercises may help make you less likely to fall. Try the ones below. Or do other exercises that your healthcare provider suggests. Depending on your health, you may need to start slowly. Dont let that stop you. Even small amounts of exercise can help you. Be sure to talk to yourhealthcare provider before starting any exercise program. Improve Balance Many types of exercise can help improve balance. Danny chi and yoga are good examples. Heres another one to try. You can do it anytime and almost anywhere. Stand next to a counter or solid support. Push yourself up onto your tiptoes. Hold for 5 seconds. If you start to lose your balance, hold on to the counter. Rest and repeat 5 times. Work up to holding for 20 to 30 seconds, if you can. Increase Flexibility Being more flexible makes it easier for you to move around safely. Try exercises like the seated hamstring stretch. Sit in a chair and put one foot on a stool. Straighten your leg and reach with both hands down either side of your leg. Reach as far down your leg as you can. Hold for about 20 seconds. Go back to the starting position. Then repeat 5 times. Switch legs. Build Strength Resistance exercises help build strength. You can do them without equipment. Or you can use weights, elastic bands, or special machines. One such exercise is called the biceps curl. You can hold a 1 pound weight or even a can of soup. Do this exercise at least 3 times a week. Strive for everyday. Sit up straight in a chair. Keep your elbow close to your body and your wrist straight. Bend your arm, moving your hand up to your shoulder. Then slowly lower your arm. Repeat 5 times. Switch to the other arm. Build Your Staying Power Aerobic exercises make your heart and lungs stronger so you can keep moving longer. Walking and swimming are two of the best types of exercises you can do. Using a stationary bike is great, too. Find an aerobic exercise that you enjoy. Start slowly and build up. Even 5 minutes is helpful. Aimfor a goal of 30 minutes, at least 3 times a week. You dont have to do 30 minutes in one session. Break it up and walk a little throughout the day. More Helpful Tips Start easy. Slowly work up to doing more. Talk with your healthcare provider about the best exercises for you. Call senior centers or health clubs about exercise programs. If needed, have a family member watch you walk every so often to check your stability. Exercise with a friend. Choose an activity you both enjoy. Try exercises that you can do anytime, anywhere. Here are two examples. Have someone with you when you first try these: Practice walking by placing one foot right in front of the other. Stand up and sit down 10 times. Repeat this throughout the day. Juan Jose Patient Education Copyright 2009 - 2010 Juan Jose except where otherwise noted. Preventing Falls: Moving Safely Using a Cane or Walker (This education is for all patients over 65 regardless of symptoms) Keep the cane away from your feet so you dont trip. A walking aid, such as a cane or walker, can help you stay more independent and avoid falls. Remember to keep your walking aid within easy reach when youre in a chair or in bed. And learn how to use it safely so you dont injure yourself. Using a Cane If you have a stronger side, hold the cane on that side. Get your balance. Move the cane and your weaker leg forward. Support your weight on both the cane and your weaker side. Step with your stronger leg. Start again from step 1. If youre using a folding walker, be sure you know how to lock it open. Check that its locked open before each use. Using a Walker Roll the walker (or lift it, if youre using one without wheels) forward about 12 inches. Step forward with your weaker leg first. Use the walker to help keep your balance. Bring your other foot forward to the center of the walker. Start again from step 1. Helpful Tips Check with your healthcare provider about the right walking aid to use. Ask about a walker with a seat attached. Check the tips of your cane or walker to make sure they have nonskid covers. Move slowly from room to room. Dont waddell. Sit down to get dressed. Use a cruz pack or backpack to keep your hands free. Get help for jobs that mean climbing, even on a stepstool. NI Patient Education Copyright 2008 - 2010 NI except where otherwise noted. Treating Urinary Incontinence in Men (This education is for all patients over 65 regardless of symptoms) You can't always control the release of urine. You may leak urine. Or you may not be able to hold your urine until you can get to a bathroom. This is called urinary incontinence. The problem can be managed. Talk to your doctor about your treatment options. Taking Medications Prescription medications may help you. They may: Help the sphincter to work better. (This is the muscle that closes to keep urine from leaking out of the bladder.) Help stop the bladder from glynn too often to push urine out. Help the bladder muscles contract with more force. Help relax the sphincter muscle and allow urine to flow more freely. Making Changes to Your Routine Certain changes in your daily routine may help. These include: Avoiding caffeine and alcohol. Using timed voiding. This is following a schedule for drinking fluids and urinating. Doing Kegel exercises daily. These exercises involve tightening the muscles in your sphincter and around your bladder to help strengthen them. Your doctor can explain how to do them. Using a Catheter A catheter is a narrow tube that is inserted through the urethra into the bladder. It drains urine.A condom catheter covers the penis. It channels urine into a collection bag. It is worn most of thetime. Intermittent catheterization means inserting a catheter to drain the bladder, then removing it. This is done on a regular schedule. Having Surgery If other options don't work, surgery may be recommended. If surgery is an option, your healthcare provider can discuss it with you and explain its risks and benefits. Healing After Prostate Surgery Surgery on the prostate gland can cause incontinence. Most often, the incontinence is only for a short time. It clears up when healing is complete. Very rarely, prostate surgery can result in permanent incontinence. Hi Mr. Kendall, As your primary care physician, I know that regular visits with my patients who have several chronic conditions can go a long way in helping you stay healthy. Many times, the clinic team and I are in touch with you and/or other care team members between office visits to adjust medications, discuss any changes in your health, and review our care plan to make sure it is still meeting your needs. I am dedicated to helping you take a more active role in your overall care. It is important that there are resources available to you, so I created a personalized plan of care with a Health Calendar for you, which is included on the next page of this letter. Below is a list that summarizes your electronic health record: Health Maintenance Due: Health Maintenance Due Topic Date Due Alpha-1 Antitrypsin Never done Albumin/Creatinine Ratio 03/19/2023 DIABETES-EYE EXAM 05/31/2023 Influenza Vaccine (FLU shot) (1) 06/27/2023 Depression Screening 07/09/2023 Current Medication List: (as of Visit date not found (in office), Visit date not found (telemedicine) ) Current Outpatient Medications Medication Sig Dispense Refill Videobot SYSTEM W/DEVICE KIT Use up to four times a day as directed 1 Kit 0 traZODone (DESYREL) 50 MG Tablet TAKE 1 TABLET BY MOUTH ONCE DAILY AT 8PM *MOOD* 28 Tab 5 Underpads Large Use as directed for incontinence 90 Each 5 Escitalopram Oxalate 20 MG Oral Tablet Take 1 Tablet by mouth in the morning. 30 Tab 5 clonazePAM 0.5 MG Oral Tablet One pill in the AM and one pill at night. 30 Tablet 5 risperiDONE 2 MG Oral Tablet (RisperDAL) Take 1 Tablet by mouth in the morning and 1 Tablet at noon and 1 Tablet before bedtime. ProAir HFA 108 (90 Base) MCG/ACT Inhalation Aerosol Solution Inhale by mouth 2 Puffs every 6 hours as needed for Wheezing. 8.5 g 5 OXcarbazepine 150 MG Oral Tablet (Trileptal) Take 1 Tablet by mouth in the morning and 1 Tabletbefore bedtime. guaiFENesin 100 MG/5ML Oral Syrup (Robitussin) Take by mouth 10 mL as needed in the morning AND10 mL as needed at noon AND 10 mL as needed in the evening for Cough. 120 mL 0 Theravim-M Oral Tablet TAKE ONE TABLET BY MOUTH ONCE DAILY 90 Tablet 1 Calmoseptine 0.44-20.6 % External Ointment (Menthol-Zinc Oxide) Apply topically to affected area at bedtime as needed for Irritation or Other (Skin breakdown). Apply to buttocks/sacrum 20 g 3 Acetaminophen 325 MG Oral Tablet (Tylenol) Take by mouth 2 Tablets every 4 hours as needed for Fever >38C(100.5F) or Pain, Moderate. Do not exceed 4G of Tylenol in a 24 hour period. 100 Tablet1 Prevail Breezers XL USE DIRECTED FOR INCONTINENCE [...] the morning and 1 Tablet in the evening.100 Tablet 8 Omeprazole 20 MG Oral Capsule Delayed Release (PriLOSEC) TAKE ONE CAPSULE BY MOUTH ONCE DAILY FOR GERD 28 Capsule 5 Simvastatin 40 MG Oral Tablet (Zocor) TAKE ONE TABLET BY MOUTH EVERY EVENING *CHOLESTEROL* 28 Tablet 5 Pentoxifylline ER 400 MG Oral Tablet Extended Release (TRENtal) TAKE ONE TABLET BY MOUTH THREE TIMES DAILY *CIRCULATION* 84 Tablet 5 DIURETIC TITRATION PLAN If no improvement on day 3, contact heart failure managing provider. 1 Each 0 Finasteride 5 MG Oral Tablet (Proscar) Take 1 Tablet by mouth in the morning. 90 Tablet 3 Tamsulosin HCl 0.4 MG Oral Capsule (Flomax) Take 1 Capsule by mouth in the morning. 90 Capsule 3 Arthritis Pain Relief 650 MG Oral Tablet Extended Release (Acetaminophen ER) TAKE 2 TABLET BY MOUTH IN THE MORNING AND BEFORE BEDTIME FOR PAIN *MAX 3GMS APAP IN 24HRS* 112 Tablet 5 Glimepiride 1 MG Oral Tablet (Amaryl) TAKE ONE TABLET BY MOUTH DAILY. *DM* 28 Tablet 5 Underpads Extra Large Use as directed for incontinence. 90 Each 11 metFORMIN HCl 1000 MG Oral Tablet (Glucophage) TAKE 1 TABLET BY MOUTH TWICE DAILY WITH MEALS DM56 Tablet 5 Gabapentin 300 MG Oral Capsule (Neurontin) TAKE 1 CAPSULE BY MOUTH THREE TIMES DAILY AT 8AM,4PMAND BEDTIME *PAIN* 84 Capsule 5 Magnesium Oxide -Mg Supplement 400 (240 Mg) MG Oral Tablet (Mag-Ox) TAKE 1 TABLET BY MOUTH TWICE DAILY IN THE MORNING AND IN THE EVENING FOR SUPPLEMENT 56 Tablet 5 diphenhydrAMINE HCl 12.5 MG Oral Tablet Chewable (Benadryl Allergy Childrens) Take 12.5 mg by mouth in the morning and 12.5 mg in the evening. For 2 weeks then as needed for itching. 30 Tablet 2 Trulicity 0.75 MG/0.5ML Subcutaneous Solution Pen-injector (Dulaglutide) Inject 0.75 mg under the skin once a week. 6 mL 6 D3-1000 25 MCG (1000 UT) Oral Capsule (Cholecalciferol) TAKE ONE CAPSULE BY MOUTH DAILY. *SUPPLEMENT* 28 Capsule 5 Metoprolol Tartrate 25 MG Oral Tablet (Lopressor) TAKE 1/2 TABLET (12.5MG) BY MOUTH TWICE DAILYFOR HTN 90 Tablet 3 guaiFENesin ER 600 MG Oral Tablet Extended Release 12 Hour (Mucinex) Take 1 Tablet by mouth in the morning and 1 Tablet before bedtime. 60 Tablet 5 OneTouch Ultra In Vitro Strip (Glucose Blood) Please check patients blood sugar before lunch ondays that he attends the day program 400 Strip 3 OneTouch Delica Plus [id number] Please check patients blood sugar before lunch on days that he attends the day program 400 Each 3 Loperamide HCl 2 MG Oral Tablet (Immodium (A-D)) Take 1 Tablet by mouth 3 times a day as neededfor Diarrhea. 30 Tablet 0 Incruse Ellipta 62.5 MCG/ACT Inhalation Aerosol Powder Breath Activated (umeclidinium [place]) Inhale 1 Puff by mouth in the morning. 30 Each 11 Incontinence Brief Large USE DIRECTED FOR INCONTINENCE and throughout the day program 90 Each 5 Probiotic Acidophilus BioBeads Oral Capsule Take 1 Capsule by mouth in the morning and 1 Capsule at noon and 1 Capsule in the evening. Take with meals. 100 Capsule 3 denosumab (PROLIA) 60 MG/ML injection Inject 60 mg under the skin. 1 inj every 6 mo. Triple Antibiotic 3.5-400-5000 External Ointment Apply topically to affected area as needed forWound Care. Apply to * minor cuts / scrapes 28.4 g 5 Furosemide 20 MG Oral Tablet (Lasix) Take one tab by mouth on Thursday 03/29 and Friday 03/30 in addition to the routine 20 mg daily dose. (Total daily dose for Thursday 03/29 and Friday 03/30 will be 40mg). (Patient not taking: Reported on 07/16/2023) 2 Tablet 3 Polyethylene Glycol 3350 17 GM/SCOOP Oral Powder (MiraLax) Take 17 g by mouth as needed for Constipation. Dissolve one heaping tablespoon in 8 ounces of water or juice.Give every 72 hours if no bowel movement 507 g 8 Testosterone 20.25 MG/ACT (1.62%) Transdermal Gel (AndroGel Pump) APPLY ONE PUMP TO THE SHOULDER DAILY.To clean, dry, unbroken skin on the shoulders or upper arms. (Patient not taking: Reported on 07/16/2023) 75 g 0 Loratadine 10 MG Oral Tablet (Claritin) TAKE ONE TABLET BY MOUTH ONCE DAILY FOR ALLERGIES 28 Tablet 5 Petroleum Jelly 100 % External Gel Apply topically to affected area 2 times a day. Apply to arms, chest and areas of scratches until feels better then change in once a day (Patient not taking: Reported on 07/16/2023) 212 g 5 Triamcinolone Acetonide 0.1 % External Ointment (Aristocort) Apply topically to affected area 2times a day. To affected area for 4 weeks or until healed (Patient not taking: Reported on 07/16/2023) 80 g 1 Current Facility-Administered Medications Medication Dose Route Frequency Provider Last Rate Last Admin Zinc Oxide (Desitin/Kevon) 40 % ointment Topical Daily(AM) Andrew Montague III, MD Zinc Oxide (Desitin) 40 % paste Topical BID(AM/PM) Andrew Montague III, MD Current List of Allergies: (as of Visit date not found (in office), Visit date not found (telemedicine) ) Review of patient's allergies indicates: Allergen Reactions Aspirin Cephalexin Unknown Cephalexin Cephalosporins Unknown Corticosteroids Unknown MEDROL PACK Haldol [Haloperidol] Lactose Intolerance [Tilactase] Diarrhea Levaquin [Levofloxacin] QUESTIONABLE allergy- rash AFTER finishing course of abx on chest Shellfish Allergy Most Recent Lab Results: Results for orders placed or performed in visit on 07/09/23 ERYTHROCYTE SEDIMENTATION RATE (ESR) Result Value Ref Range ESR 22 (H) <20 mm/hour COMPREHENSIVE METABOLIC PANEL Result Value Ref Range BUN 28 (H) 6 - 20 mg/dL Creatinine 0.6 0.6 - 1.2 mg/dL Estimated Glomerular Filtration Rate >90 >=60 mL/min Sodium 135 135 - 146 mmol/L Potassium 4.6 3.5 - 5.1 mmol/L Chloride 94 (L) 98 - 107 mmol/L CO2 30 22 - 32 mmol/L Anion Gap 11 7 - 15 mmol/L Glucose 168 (H) 70 - 120 mg/dL Albumin 4.2 3.8 - 5.0 g/dL AST 19 10 - 50 U/L Alkaline Phosphatase 83 35 - 130 U/L Bilirubin, Total 0.2 <=1.2 mg/dL Calcium 9.8 8.4 - 10.2 mg/dL Protein 6.5 6.0 - 8.3 g/dL ALT 22 10 - 50 U/L CBC Result Value Ref Range WBC 4.04 4.00 - 10.80 K/uL RBC 3.38 4.50 - 5.25 M/uL HGB 11.1 (L) 14.0 - 16.8 g/dL HCT 36.0 (L) 40.0 - 48.4 % MCV 106.5 82.0 - 99.5 fL MCH 32.8 27.0 - 34.0 pg MCHC 30.8 32.0 - 36.0 g/dL RDW 13.3 11.5 - 15.5 % PLT 123 (L) 140 - 400 K/uL MPV 11.0 6.6 - 11.1 fL DIFFERENTIAL, AUTOMATED Result Value Ref Range WBC 4.04 4.00 - 10.80 K/uL Neutrophils % 68.6 40.0 - 75.0 % Lymphocytes % 22.0 18.0 - 42.0 % Monocytes % 7.9 1.0 - 11.0 % Eosinophils % 1.0 0.0 - 6.0 % Basophils % 0.5 0.0 - 2.0 % Absolute Neutrophils 2.77 1.80 - 7.70 K/uL Absolute Lymphocytes 0.89 (L) 1.00 - 4.80 K/ul Absolute Monocytes 0.32 0.00 - 1.10 K/uL Absolute Eosinophils 0.04 0.00 - 0.70 K/uL Absolute Basophils 0.02 0.00 - 0.20 K/uL IRON SCREEN, INCLUDING TIBC Result Value Ref Range Iron 80 45 - 176 ug/dL Iron Binding Capacity 287 250 - 425 ug/dL Transferrin Saturation Percent 28 15 - 55 % FERRITIN Result Value Ref Range Ferritin 326 30 - 400 ng/mL *Note: Due to a large number of results and/or encounters for the requested time period, some results have not been displayed. A complete set of results can be found in Results Review. Sincerely, Andrew Montague III, MD 07/16/2023 [facility] Calendar (as of Visit date not found (in office), Visit date not found (telemedicine) ) Care needs Care needs Last completed Due next Alpha-1 Antitrypsin --- Never done Urine albumin/creatinine test 03/19/2022 03/19/2023 Dilated eye exam (by eye doctor or retinal camera) 05/31/2022 05/31/2023 Flu vaccine (recommended) (1) 07/09/2022 06/27/2023 Yearly B-12 vitamin test 08/01/2022 08/01/2023 A1C blood sugar test 05/22/2023 11/22/2023 Yearly COPD oxygen test 05/14/2023 05/14/2024 Kidney Function Test 07/09/2023 07/09/2024 Diabetic Foot Exam 07/16/2023 07/16/2024 Bone Density 03/11/2023 03/11/2025 Colonoscopy - every 5 years 02/21/2022 02/21/2027 Lipid (cholesterol) disorder screening 08/01/2022 08/01/2027 Diphtheria, tetanus & pertussis vaccines (4 - Td or Tdap) 07/04/2020 07/04/2030 As you look over the recommended services, be sure to check with your insurance company to determine what's covered. [facility] is a great tool that helps you review your medical record online, including test results, doctor notes and your health summary. You can also schedule appointments with me and other members of your care team, request prescription refills and ask for advice related to your medical conditions at [email or web address]. documented in this encounter Progress Notes * Belen Barrios RN - 07/16/2023 9:25 AM EDT DM Foot Exam completed today. Provider aware. Belen Barrios RN Socks and Shoes Removed for Annual Diabetic Foot Screening RIGHT FOOT: Area of Concern: Feet are cool to touch and red. Some cracking of heels . RIGHT Dorsalis Pedis Pulse: Unable to locate RIGHT Posterior Tibial Pulse: Unable to locate RIGHT Monofilament:Patient reports feeling monofilament pressure on plantar surface of foot LEFT FOOT: Area of Concern Feet are cool to touch and red. Some cracking of heels. LEFT Dorsalis Pedis Pulse: Unable to locate LEFT Posterior Tibial Pulse: Unable to locate LEFT Monofilament:Patient reports feeling monofilament pressure on plantar surface of foot Do you need diabetic shoes: Yes. Caregiver states that he has a new pair of shoes on order. PRE - ADMINISTRATION DOCUMENTATION Are you experiencing any cold symptoms or fever? No Have you had Guillain-Denver Syndrome (an illness that causes paralysis) within the last 6 weeks? No Have you had the flu shot in the past? YES Have you ever had a reaction to the flu shot? No Belen Barrios RN, 07/16/2023 9:30 AM Immunization Administration Documentation Time Out Procedure Performed: Yes Patient Identified (Ask Name/Date of ): Yes Does the patient have a fever greater than 101 degrees today? No Patient allergic to latex? No VFC Stock: No Injection(s) verified: Yes, Injection Name: Fluzone Verified Side and Site: Yes Verified Shot(s) with Parent(s)/Patient: Yes Urinary Incontinence Plan of Care Documentation: (This education is for all patients over 65 regardless of symptoms) Current medications reconciled. Patient encouraged to: Practice kegal exercises Provide education materials Use the restroom every 2 hours throughout the day Limit caffeine, alcohol, spicy foods and acidic foods Keep a bladder diary Limit fluid intake 3-4 hours before bed Lose weight Prevent constipation Take fluid pills at a time when you can get to the bathroom quickly Control sugar better if diabetic Limit fluid intake to 60 oz. per day Wear support stockings (TEDs)if you have edema Belen Barrios RN 07/16/2023 AD8 Dementia Screening Interview Person answering questions: caregiver Unable to do screening interview. Patient is intellectually disabled and does not answer questions.He lives in a retirement where he is a maximum assistance with care. The final score is a sum of the number items marked "Yes, A Change". 0 - 1: Normal cognition; 2 or greater: Cognitive impairments is likely to be present - further testing required Adult Annual Wellness Visit: Isai Kendall is a 67 year old male who presents for an Adult Annual Wellness Visit. Depression Screening: Did the patient complete the screening questionnaire for Depression? No Unable to do screening interview. Patient is intellectually disabled and does not answer questions.He lives in a retirement where he is a maximum assistance with care. In general, compared to other people your age, what would you say that your health is? Poor. Patient unable to answer question. This nurse answered based on assessment. Ht Readings from Last 1 Encounters: 02/21/23 1.753 m (5' 9") Wt Readings from Last 1 Encounters: 05/22/23 64.9 kg (143 lb) Body Mass Index: 21.6 There is no height or weight on file to calculate BMI. BP Readings from Last 1 Encounters: 07/09/23 110/60 Medical/Surgical/Family History Reviewed: Yes Past Medical History: Diagnosis Date Acute pancreatitis [...] DIAGNOSTIC (RECTUM) 12/19/2015 adenomatous polyps, repeat 1 yr/[facility] COLONOSCOPY, DIAGNOSTIC (RECTUM) 01/29/2017 adenomatous polyps, repeat 5 yrs/[facility] COLONOSCOPY, DIAGNOSTIC (RECTUM) 02/21/2022 normal, repeat 5 yrs / COLONOSCOPY FLEXIBLE PROXIMAL DIAGNOSTIC performed by Jessica Nuno DO at [facility] EGD, FLEXIBLE, DIAGNOSTIC 01/29/2017 gastritis/[facility] EGD, FLEXIBLE, DIAGNOSTIC 02/21/2022 mild gastric irriation on bx / ESOPHAGOGASTRODUODENOSCOPY (EGD), FLEXIBLE, TRANSORAL, DIAGNOSTIC performed by Jessica Nuno DO at [facility] EGD, FLEXIBLE, W/BIOPSY 05/10/2008 mod chronic inflammation FRAGMENT KIDNEY STONE BY SHOCK WAVE 11/27/2005 Lithotripsy (ESWL) rt ureteroscopic laser INSERT URETERAL SUPPORT 11/27/2005 stent placed OK OPEN TREATMENT RADIAL SHAFT FRACTURE Left 11/28/2021 REMOVE GALLBLADDER VEIN FILTER PLACEMENT 02/1998 Family History Problem Relation Age of Onset Other (mi) Father Arthritis Mother pneumonia 2 Other (Other) Mother Has patient ever had cancer? No Social History Tobacco Use Smoking status: Former Packs/day: 2.00 Years: 30.00 Pack years: 60.00 Types: Cigarettes Quit date: 12/25/2010 Years since quittin.5 Smokeless tobacco: Never Tobacco comments: 04/2010 - unsure total amount of years smoked Substance Use Topics Alcohol use: No Vaping/E-Cigarette Use Vaping/E-Cigarette Use Never User Passive Exposure No Counseling Given? No Vaping/E-Cigarette Substances Nicotine No Other No Flavoring No THC No Cannabidiol (CBD) No Vaping/E-Cigarette Devices Disposable No Pre-filled or Refillable Cartridge No Refillable Tank No Pre-filled Pod No Tobacco/Alcohol screening completed today? Yes Hospital Care: Admissions (within the last year): Hospital, Location: [facility] Date of Admission: 02/13/2023 Gastroenteritis, abnormal urinalysis, Sepsis, Hypoxia, Elevated troponin, Aortic Stenosis ER within 30 days: No Does the patient have an Advance Directives/Living Will? No. Does the patient want information? No.Patient declined information Last Physical Exam: Last physical exam: 05/22/2023 Does patient see primary provider regularly? Yes Does patient see other providers? Yes, Specialist Patient Care Team updated? Yes Review of patient's allergies indicates: Allergen Reactions Aspirin Cephalexin Unknown Cephalexin Cephalosporins Unknown Corticosteroids Unknown MEDROL PACK Haldol [Haloperidol] Lactose Intolerance [Tilactase] Diarrhea Levaquin [Levofloxacin] QUESTIONABLE allergy- rash AFTER finishing course of abx on chest Shellfish Allergy Immunization History Administered Date(s) Administered COVID-19 mRNA, LNP-s, No Preserve, 2-Dose Series ([employer]) 11/29/2020, 12/20/2020, 09/11/2021 Covid-19, Mrna, Lnp-s, Pf, Bivalent, 30 Mcg, IM, 12 yrs and above ([employer]) 09/13/2022 H1N1 2009 Influenza, IM 09/04/2009 Hepatitis B, 20+ yrs 07/23/2010, 07/01/2012, 09/29/2013, 11/05/2013, 04/06/2014 PPD 05/27/1998, 01/25/2004, 01/08/2006, 07/22/2007, 06/28/2009, 07/02/2011, 07/01/2012, 06/10/2014,05/21/2017, 05/03/2019, 04/27/2021, 04/14/2023 Pneumococcal Conjugate Vacc, 13 Valent (Prevnar) 09/22/2019 Pneumococcal Polysaccharide PPV23 (Pneumovax) 10/27/1988, 10/27/1997, 08/13/2014, 02/21/2021 Seasonal Influenza, PF, 6 mons & Above, IM , (Flulaval) 08/21/2017, 08/20/2018, 07/28/2020 Seasonal Influenza, Quadrivalent Hd (Fluzone Hd) 08/22/2021, 07/09/2022 Seasonal Influenza, Quadrivalent, No Preserve, IM 09/16/2016 Seasonal Influenza, Split, IIV3, With Preserve, Inj 07/27/1994, 10/08/2000, 10/03/2001, 07/30/2002,09/11/2005, 08/06/2006, 08/03/2007, 08/01/2008, 09/14/2009, 07/23/2010, 08/19/2011, 07/01/2012, 08/27/2013, 08/02/2015 Seasonal Influenza, Trivalent, Adjuvanted, 65+ yrs 09/22/2019 TB Rubina Test 05/27/1998 TD - Tetanus/Diptheria (ADULT) 10/27/1985, 07/12/1996 TD, Preservative Free 06/21/2005, 07/04/2020 TDAP (age 11 and older)(Adacel) 06/29/2010, 05/02/2020 Varicella Vaccine (Chicken Pox) 06/02/2015 Varicella Zoster Vaccine (Adult) 06/02/2015 Zoster Vaccine Recombinant (Shingrix) 12/12/2018, 02/13/2019 Current Outpatient Medications Medication Sig Dispense Refill Videobot SYSTEM W/DEVICE KIT Use up to four times a day as directed 1 Kit 0 traZODone (DESYREL) 50 MG Tablet TAKE 1 TABLET BY MOUTH ONCE DAILY AT 8PM *MOOD* 28 Tab 5 Underpads Large Use as directed for incontinence 90 Each 5 Escitalopram Oxalate 20 MG Oral Tablet Take 1 Tablet by mouth in the morning. 30 Tab 5 clonazePAM 0.5 MG Oral Tablet One pill in the AM and one pill at night. 30 Tablet 5 risperiDONE 2 MG Oral Tablet (RisperDAL) Take 1 Tablet by mouth in the morning and 1 Tablet at noonand 1 Tablet before bedtime. ProAir HFA 108 (90 Base) MCG/ACT Inhalation Aerosol Solution Inhale by mouth 2 Puffs every 6 hours as needed for Wheezing. 8.5 g 5 OXcarbazepine 150 MG Oral Tablet (Trileptal) Take 1 Tablet by mouth in the morning and 1 Tablet before bedtime. guaiFENesin 100 MG/5ML Oral Syrup (Robitussin) Take [...] 1 Tablet in the evening. 100Tablet 8 Omeprazole 20 MG Oral Capsule Delayed Release (PriLOSEC) TAKE ONE CAPSULE BY MOUTH ONCE DAILY FOR GERD 28 Capsule 5 Simvastatin 40 MG Oral Tablet (Zocor) TAKE ONE TABLET BY MOUTH EVERY EVENING *CHOLESTEROL* 28 Tablet 5 Pentoxifylline ER 400 MG Oral Tablet Extended Release (TRENtal) TAKE ONE TABLET BY MOUTH THREE TIMES DAILY *CIRCULATION* 84 Tablet 5 DIURETIC TITRATION PLAN If no improvement on [...] 3GMS APAP IN 24HRS* 112 Tablet 5 Glimepiride 1 MG Oral Tablet (Amaryl) TAKE ONE TABLET BY MOUTH DAILY. *DM* 28 Tablet 5 Underpads Extra Large Use as directed for incontinence. 90 Each 11 metFORMIN HCl 1000 MG Oral Tablet (Glucophage) TAKE 1 TABLET BY MOUTH TWICE DAILY WITH MEALS DM 56 Tablet 5 Gabapentin 300 MG Oral Capsule (Neurontin) TAKE 1 CAPSULE BY MOUTH THREE TIMES DAILY AT 8AM,4PM ANDBEDTIME *PAIN* 84 Capsule 5 Magnesium Oxide -Mg Supplement 400 (240 Mg) MG Oral Tablet (Mag-Ox) TAKE 1 TABLET BY MOUTH TWICE DAILY IN THE MORNING AND IN THE EVENING FOR SUPPLEMENT 56 Tablet 5 diphenhydrAMINE HCl 12.5 MG Oral Tablet Chewable (Benadryl Allergy Childrens) Take 12.5 mg by mouthin the morning and 12.5 mg in the evening. For 2 weeks then as needed for itching. 30 Tablet 2 Trulicity 0.75 MG/0.5ML Subcutaneous Solution Pen-injector (Dulaglutide) Inject 0.75 mg under the skin once a week. 6 mL 6 D3-1000 25 MCG (1000 UT) Oral Capsule (Cholecalciferol) TAKE ONE CAPSULE BY MOUTH DAILY. *SUPPLEMENT* 28 Capsule 5 Metoprolol Tartrate 25 MG Oral Tablet (Lopressor) TAKE 1/2 TABLET (12.5MG) BY MOUTH TWICE DAILY FORHTN 90 Tablet 3 guaiFENesin ER 600 MG Oral Tablet Extended Release 12 Hour (Mucinex) Take 1 Tablet by mouth in the morning and 1 Tablet before bedtime. 60 Tablet 5 OneTouch Ultra In Vitro Strip (Glucose Blood) Please check patients blood sugar before lunch on days that he attends the day program 400 Strip 3 OneTouch Delica Plus [id number] Please check patients blood sugar before lunch on days that he attends the day program 400 Each 3 Loperamide HCl 2 MG Oral Tablet (Immodium (A-D)) Take 1 Tablet by mouth 3 times a day as needed forDiarrhea. 30 Tablet 0 Incruse Ellipta 62.5 MCG/ACT Inhalation Aerosol Powder Breath Activated (umeclidinium [place]) Inhale 1 Puff by mouth in the morning. 30 Each 11 Incontinence Brief Large USE DIRECTED FOR INCONTINENCE and throughout the day program 90 Each 5 Probiotic Acidophilus BioBeads Oral Capsule Take 1 Capsule by mouth in the morning and 1 Capsule atnoon and 1 Capsule in the evening. Take with meals. 100 Capsule 3 denosumab (PROLIA) 60 MG/ML injection Inject 60 mg under the skin. 1 inj every 6 mo. Triple Antibiotic 3.5-400-5000 External Ointment Apply topically to affected area as needed for Wound Care. Apply to * minor cuts / scrapes 28.4 g 5 Furosemide 20 MG Oral Tablet (Lasix) Take one tab by mouth on Thursday 03/29 and Friday 03/30 in addition to the routine 20 mg daily dose. (Total daily dose for Thursday 03/29 and Friday 03/30 will be 40 mg). (Patient not taking: Reported on 07/16/2023) 2 Tablet 3 Polyethylene Glycol 3350 17 GM/SCOOP Oral Powder (MiraLax) Take 17 g by mouth as needed for Constipation. Dissolve one heaping tablespoon in 8 ounces of water or juice.Give every 72 hours if no bowelmovement 507 g 8 Testosterone 20.25 MG/ACT (1.62%) Transdermal Gel (AndroGel Pump) APPLY ONE PUMP TO THE SHOULDER DAILY.To clean, dry, unbroken skin on the shoulders or upper arms. (Patient not taking: Reported on 07/16/2023) 75 g 0 Loratadine 10 MG Oral Tablet (Claritin) TAKE ONE TABLET BY MOUTH ONCE DAILY FOR ALLERGIES 28 Tablet5 Petroleum Jelly 100 % External Gel Apply topically to affected area 2 times a day. Apply to arms, chest and areas of scratches until feels better then change in once a day (Patient not taking: Reported on 07/16/2023) 212 g 5 Triamcinolone Acetonide 0.1 % External Ointment (Aristocort) Apply topically to affected area 2 times a day. To affected area for 4 weeks or until healed (Patient not taking: Reported on 07/16/2023) 80 g 1 Current Facility-Administered Medications Medication Dose Route Frequency Provider Last Rate Last Admin Zinc Oxide (Desitin/Kevon) 40 % ointment Topical Daily(AM) Andrew Montague III, MD Zinc Oxide (Desitin) 40 % paste Topical BID(AM/PM) Andrew Montague III, MD Patient Active Problem List Diagnosis Code chronic stasis dermatitis L57.0 Esophageal reflux K21.9 ADVANCE DIRECTIVE INFORMATION Mitral valve disorder I05.9 Intellectual disability F79 Venous insufficiency I87.2 Temporomandibular joint disorders, unspecified M26.609 Sensorineural hearing loss, bilateral H90.3 Chronic otitis externa H60.60 Type 2 diabetes mellitus with hemoglobin A1c goal of less than 7.0% ([facility]) E11.9 Obstructive sleep apnea G47.33 Hearing loss H91.90 History of epistaxis Z87.898 Cataract H26.9 Senile osteoporosis M81.0 Type 2 diabetes mellitus with diabetic dermatitis ([facility]) E11.620 Diabetic complication ([facility]) E11.8 Peripheral vascular disease ([facility]) I73.9 Diabetes mellitus with peripheral angiopathy ([facility]) E11.51 Thrombocytopenia ([facility]) D69.6 Protein-calorie malnutrition (HCC) E46 Protein-calorie malnutrition (HCC) E46 PAF (paroxysmal atrial fibrillation) ([facility]) I48.0 Dyslipidemia E78.5 COPD, group A, by GOLD 2017 classification ([facility]) J44.9 Cerebral palsy ([facility]) G80.9 Type 2 diabetes mellitus with diabetic polyneuropathy, without long-term current use of insulin ([facility]) E11.42 Hyperprolactinemia ([facility]) E22.1 Primary male hypogonadism E29.1 Medication Compliance: Patient is able to obtain all of his medications? Yes Patient takes medications as prescribed? Yes Patient manages own medications: No Patient uses a pill box? No, pt lives in retirement Dental Exam: Yes: Every Year Eye Screening: Yes: Every six months Are you having trouble with hearing? Yes Do you use an assistive device to help your hearing? Yes, hearing aids bilaterally. Exercise Screening: does not exercise regularly. Sits in wheel chair. Does no physical activity. Nutrition Assessment: Eats a balanced diet, Eats three meals a day, and caregiver states he has a good appetite and is on a fluid restriction, 64 oz daily due to CHF Pain Screening: Are you having any pain? No Sleep Screening Tool 'STOP': Unable to properly assess. Patient is intellectually disabled and does not answer questions Patient and Caregiver Support System: Patient lives lives in retirement Means of Transportation: day care home provider drives Patient lives in [place] Community Resources: Pt lives in retirement Functional Status and ADL Skills: Has patient ever had an amputation? No Functional Assessment: 40- Disabled: requires special care and assistance Ambulation: Patient does not ambulate. Wheelchair Dressing: Gets clothes and dresses without any assistance: Maximum Assistance Able to move freely in chair or bed including turning over: Maximum Assistance Repositioning (bed or chair): Not applicable Transfers: Independent Toileting: Goes to bathroom, uses toilet, arranges clothes and returns without any assistance: Maximum Assistance Toileting: incontinent of bladder, incontinent of bowel, and briefs Feeding: Self- food puree Bathing: Complete; Not Applicable Requires total assistance with ADLs. Instrumental ADL's: Shopping: lives in retirement Housekeeping: Maximum Assistance Handling Finances: Patient lives in retirement DME Vendor Name: Unknown Fall Risk Assessment: Can the patient demonstrate that he can stand from a sitting position? Yes Has the patient had a fall within the last 6 months? No Does the patient have a problem with his gait or balance? Yes Does the patient take 4 or more prescription medicines? Yes Does the patient use sedatives or narcotics? Yes Fall Risk Factors Present: Uses more than 4 medications Uses sedatives or narcotics Uses assistive devices -History of Cerebral Palsy Yzh-Ii-vyp-Go Test: Nhd-Mf-keb-Go Test completed? No, non-ambulatory Gender Specific Preventative Plan: Health Maintenance Topic Date Due Alpha-1 Antitrypsin Never done Albumin/Creatinine Ratio 03/19/2023 DIABETES-EYE EXAM 05/31/2023 Influenza Vaccine (FLU shot) (1) 06/27/2023 Depression Screening 07/09/2023 B-12 08/01/2023 HbA1c 11/22/2023 O2 ASSESSMENT COMPLETED IN PAST YEAR FOR COPD 05/14/2024 GFR 07/09/2024 Diabetic Foot Exam 07/16/2024 DXA Scan 03/11/2025 COLONOSCOPY-EVERY 5 YRS AGES 18-100 02/21/2027 Lipid Panel 08/01/2027 DTaP,Tdap,and Td Vaccines (4 - Td or Tdap) 07/04/2030 VITAMIN D LEVEL ONCE IN A LIFETIME-USE SMARTSET# [id number] Completed Hepatitis B Completed LUNG CANCER SCREENING - USE SMARTSET 25653 Completed AAA Screening Completed Zoster Vaccines Completed Pneumococcal Vaccine: 65+ Years Completed COVID-19 Vaccine Completed MENINGOCOCCAL (MENACTRA/MENVEO) Aged Out GARDASIL-HPV IMMUNIZATION SERIES Aged Out Follow Up/ Referrals/Handouts: Depression screening - Unable to complete. Patient is Patient is intellectually disabled and does not answer questions Functional assessment - Completed. As per caregiver, patient is wheelchair bound, is able to stand and transfer on his own but does not ambulate. Falls Risk screening - Completed. Fall risk is high due to history of Cerebral palsy, use of assistive devices (wheelchair) currently takes more than 4 medications, and uses sedatives. Exercise screening - Completed. Patient is non-ambulatory but does propel wheelchair on own and is able to transfer from bed to chair. Nutrition assessment -. Completed. BMI 21.6. Caregiver states that he eats a puree diet, is on a fluid restriction of 64 oz daily and does have a good appetite. Pain screening - Completed. Patient did respond when questioned about pain, shook his head no. Incontinence screening - Completed. Patient is incontinent of both bladder and bowel. Risk and functional assessment (Primary) Encounter for diabetic foot exam (HCC) - DIABETES FOOT EXAM Need for prophylactic vaccination and inoculation against influenza - INFLUENZA VACC, QUAD, HIGH DOSE (FLUZONE HD) - vaccine given in L deltoid. Routine general medical examination at a health care facility Type 2 diabetes mellitus with hemoglobin A1c goal of less than 7.0% ([facility]) - Med reconciliation completed and compliance discussed. - pt to continue present medications. -Continues to follow with PCP Component Latest Ref Rng 05/14/2023 Hemoglobin A1C 4.0 - 5.6 % 7.5 (H) Estimated Average Glucose <126 mg/dL 169 (H) COPD, group A, by GOLD 2017 classification ([facility]) - Med reconciliation completed and compliance discussed. - pt to continue present medications. -Continues to follow with PCP Sensorineural hearing loss, bilateral - patient wears bilateral hearing aids Senile osteoporosis - Med reconciliation completed and compliance discussed. - pt to continue present medications. -Continues to follow with PCP Protein-calorie malnutrition, unspecified severity ([facility]) -BMI 21.6 -caregiver states has a good appetite. PAF (paroxysmal atrial fibrillation) ([facility]) - Med reconciliation completed and compliance discussed. - pt to continue present medications. -Continues to follow with PCP Dyslipidemia - Med reconciliation completed and compliance discussed. - pt to continue present medications. -Continues to follow with PCP Patient has been verbally educated on the need or importance of patient is intellectually disabled.Was agreeable to a flu vaccine and a diabetic foot exam. Pt has completed the covid vaccines: Yes, Patient has had both vaccines and 2 boosters including the bivalent. Confirmed in immunization record. Would patient like to schedule next AWV visit? No Belen Barrios RN documented in this encounter Plan of Treatment Upcoming Encounters Date Type Specialty Care Team Description 08/27/2023 Office Visit Endocrinology Rogers Dwyer MD [address] [place] [address] 08/30/2023 Office Visit Family Medicine ClariAndrew forbes III, MD [address] [place] [address] 09/09/2023 Office Visit Rheumatology Austin Saravia CRNP [address] [place] [id number] 09/29/2023 Office Visit Cardiology Natasha Avery CRNP [address] [place] [address] 12/11/2023 Imaging Radiology 12/23/2023 Office Visit Urology Joseph Doty MD [address] [place] [id number] Scheduled Procedures Name Priority Associated Diagnoses Date/Ti me COLONOSCOPY FLEXIBLE PROXIMAL DIAGNOSTIC Recall History of colon polyps Health Maintenance Due Date Last Done Comments Alpha-1 Antitrypsin 1972 Albumin/Creatinine Ratio 03/19/2023 022, 04/26/2020, 05/20/2019, Additional history exists DIABETES-EYE EXAM 05/31/2023 05/31/2022, , 05/28/2019, Additional history exists Depression Screening 07/09/2023 07/09/2022 B-12 08/01/2023 08/01/2022, 0810/2021, 10/04/2021, Additional history exists HbA1c 11/22/2023 05/22/2023, 04/26, 08/16/2022, Additional history exists O2 ASSESSMENT COMPLETED IN PAST YEAR FOR COPD 05/14/2024 05/14/2023 GFR 07/09/2024 07/09/2023, 04/27, 05/14/2023, Additional history exists Diabetic Foot Exam 07/16/2024 07/16/2023, 0 07/09/2022, 11/08/2020, Additional history exists DXA Scan 03/11/2025 03/11/2023, 040 04/2021, 01/18/2019, Additional history exists COLONOSCOPY-EVERY 5 [...] D LEVEL ONCE IN A LIFETIME-USE SMARTSET# [id number] Completed 09/26/2022, 08/01/2022, 01/03/2021, Additional history exists LUNG CANCER SCREENING - USE SMARTSET 37851 Completed 11/22/2022, 11/20/2021, 09/04/2020, Additional history exists [...] as of this encounter Visit Diagnoses Diagnosis Risk and functional assessment- Primary Screening for unspecified condition Encounter for diabetic foot exam (HCC) Need for prophylactic vaccination and inoculation against influenza Routine general medical examination at a health care facility Type 2 diabetes mellitus with hemoglobin A1c goal of less than 7.0% (HCC) COPD, group A, by GOLD 2017 classification (HCC) Sensorineural hearing loss, bilateral Senile osteoporosis Protein-calorie malnutrition, unspecified severity (HCC) PAF (paroxysmal atrial fibrillation) (HCC) Atrial fibrillation Dyslipidemia Other and unspecified hyperlipidemia documented in this encounter Care Teams Superintendent Police Relationship Specialty Start Date End Date Andrew Montague III, MD [address] [place] [address], [place] [id number] PCP - General 12/22/01 documented as of this encounter
[2023-09-16] MEDS: MAGNESIUM SULFATE / D5W 1 GM/100 ML BAG IV SCH ×3 (03:39→07:55)
[2023-09-16 05:12] LABS: Appearance Urine Clear (Clear); Bilirubin Urine Negative (Negative); Blood Urine Negative (Negative); Color Urine Yellow; Glucose Urine UA Negative (Negative); Ketones Urine Negative (Negative); Leukocyte Esterase Urine Negative (Negative); Nitrite Urine Negative (Negative); Protein Urine Negative (Negative); Urobilinogen Urine Negative (Negative); pH Urine 6.5 (4.5-7.5)
[2023-09-16] MEDS: clonazePAM 0.5 MG TAB PO SCH ×3 (07:25→20:12)
[2023-09-16] MEDS: INSULIN ASPART PER UNIT CHARGE SC SCH ×3 (08:00→18:02)
[2023-09-16 08:30] LABS: Basophils # (auto) 0.03 K/uL (0.00-0.20); Basophils % (auto) 0.7 %; Eosinophils # (auto) 0.05 K/uL (0.00-0.50); Eosinophils % (auto) 1.2 %; Hematocrit (blood only) 33.4 % (42.0-52.0); Hemoglobin 10.9 g/dl (14.0-18.0); Immature Granulocytes # (auto) 0.01 K/uL (0.01-0.20); Immature Granulocytes % (auto) 0.2 %; Lymphocytes # (auto) 1.08 K/uL (1.20-3.40); Lymphocytes % (auto) 25.7 %; Mean Corpuscular Hemoglobin 32.8 pg (25.0-34.0); Mean Corpuscular Hgb Conc 32.6 g/dL (32.0-36.0); Mean Corpuscular Volume 100.6 fL (80.0-100.0); Mean Platelet Volume 10.8 fL (9.4-12.4); Monocytes # (auto) 0.33 K/uL (0.11-0.59); Monocytes % (auto) 7.9 %; Neutrophils % (auto) 64.3 %; Platelet Count 115 K/uL (130-400); RDW Coefficient of Variation 13.1 % (11.5-14.5); RDW Standard Deviation 48.4 fL (36.4-46.3); Red Blood Count 3.32 M/uL (4.70-6.10)
[2023-09-16 08:55] LABS: Calcium 9.1 mg/dl (8.6-10.3); Magnesium 1.8 mg/dl (1.7-2.4); Potassium 4.5 mmol/L (3.5-5.1)
[2023-09-16 09:00] LABS: BUN Creatinine Ratio 42.3 (10-20); Creatinine Clr Calc Pharmacy 125.2 ml/min; Est GFR (African American) 126.1 ml/min; Est GFR (Non-African American) 108.8 ml/min
--- NOTE | 2023-09-16 09:50 | Surgery Consultation ---
Date of Consultation September 16, 2023 Assessment & Plan (1) Gastroenteritis: (2) Cerebral palsy: (3) Ileus: Plan 68 year-old male with multiple medical comorbidities with cerebral palsy who presented to ED with vomiting and diarrhea. CT scan of abd/pelvis without contrast showing diffuse distention of stomach, small bowel and right colon likely gastroenteritis vs ileus. Last hospitalization in January 2023 for gastroenteritis. Multiple watery bowel movements last night per ER nurse with rectal tube placement and now just gas in the bag. Abdomen is moderately distended but soft and no peritonitis. Plan: No acute surgical intervention required at this time. Likely gastroenteritis causing moderate gastrointestinal ileus May benefit from NGT for decompression of stomach and small bowel, If any vomiting occurs would recommend NGT Keep NPO for bowel rest Continue medical management Dr. Doty has seen and examined patient, agrees with above. History of Present Illness Reason for Consultation: SBO Requesting Physician: Dr. Andujar Attending Physician: Vida Shankar MD History of Present Illness History obtained from chart as limited history from patient secondary to intellectual impairment. Medical history significant for chronic diastolic heart failure (EF 60-65%, TTE 2022), PAF not on anticoagulation due to fall risk, PSVT, mild , PVD on pentoxifylline, hypertension, hyperlipidemia, COPD, TRINIDAD, DM 2 on oral medications, hyperprolactinemia, cerebral palsy, chronic anemia (baseline hemoglobin of 10), chronic thrombocytopenia, mood disorder, Klinefelter syndrome, intellectual disability, past tobacco abuse. Last confinement January 2023 for gastroenteritis and Enterococcus UTI status post amoxicillin Rx. Patient had sudden onset of abdominal pain going to the chest with diarrhea symptoms yesterday. Er work-up included labs which showed no leukocytosis. CT scan of abd/pelvis without contrast showing diffuse gastric and small bowel distention with right colon distention with air fluid levels suggestive of ileus vs enteritis. Per ER nurse, patient had multiple liquid/watery bowel movements last evening and had rectal tube placed. Has only had gas via rectal tube since this am shift. No vomiting. Not complaining of pain. Allergies Allergy/AdvReac Type Severity Reaction Status Date / Time lactose Allergy Intermediate GI SYMPTOMS Verified 09/16/23 03:01 aspirin Allergy Unknown UNKNOWN Verified 09/16/23 03:01 REACTION cephalexin Allergy Unknown UNKNOWN Verified 09/16/23 03:01 REACTION Cephalosporins Allergy Unknown UNKNOWN Verified 09/16/23 03:01 REACTION Corticosteroids Allergy Unknown UNKNOWN Verified 09/16/23 03:01 (Glucocorticoids) REACTION methylprednisolone Allergy Unknown UNKNOWN Verified 09/16/23 03:01 REACTION shellfish derived Allergy Unknown UNKNOWN Verified 09/16/23 03:01 REACTION Home Medications Medication Instructions Recorded Confirmed Type Lactobacillus rhamnosus GG 15 2 cap PO DAILY 09/16/23 09/16/23 History billion cell sprinkle capsule (Culturelle) acetaminophen 325 mg tablet 650 mg PO Q4 PRN Fever 09/16/23 09/16/23 History (Tylenol) acetaminophen 650 mg 1,300 mg PO AMHS 09/16/23 09/16/23 History tablet,extended release albuterol sulfate 90 mcg/actuation 2 puff inhalation Q4 PRN Shortness 09/16/23 09/16/23 History aerosol inhaler Of Breath Or Wheezing bismuth subsalicylate 262 mg 1 tab PO Q12 PRN .UPSET STOMACH 09/16/23 09/16/23 History chewable tablet (Pepto-Bismol) carboxymethylcellulose sodium 0.5 1 drp OPB BID 09/16/23 09/16/23 History % eye drops (Refresh Tears) cholecalciferol (vitamin D3) 25 25 mcg PO QAM 09/16/23 09/16/23 History mcg (1,000 unit) capsule (Vitamin D3) clonazepam 0.5 mg tablet 0.5 mg PO TID 09/16/23 09/16/23 History diphenhydramine HCl 12.5 mg 12.5 mg PO BID PRN Itching 09/16/23 09/16/23 History chewable tablet dulaglutide 3 mg/0.5 mL 3 mg subcut .WEEKLY 09/16/23 09/16/23 History subcutaneous pen injector (Trulicity) finasteride 5 mg tablet 5 mg PO QAM 09/16/23 09/16/23 History food supplemt, lactose-reduced 1 ea PO BID 09/16/23 09/16/23 History furosemide 20 mg tablet 20 mg PO DAILY 09/16/23 09/16/23 History gabapentin 300 mg capsule 300 mg PO TID 09/16/23 09/16/23 History glimepiride 1 mg tablet 1 mg PO DAILY 09/16/23 09/16/23 History guaifenesin 100 mg/5 mL oral liquid 200 mg PO TID PRN Cough 09/16/23 09/16/23 History guaifenesin 600 mg tablet, 600 mg PO Q12H 09/16/23 09/16/23 History extended release 12 hr (Mucinex) loperamide 2 mg capsule (Imodium 2 mg PO TID PRN Diarrhea 09/16/23 09/16/23 History A-D) loratadine 10 mg tablet 10 mg PO DAILY 09/16/23 09/16/23 History magnesium oxide 400 mg PO BID 09/16/23 09/16/23 History metformin 1,000 mg tablet 1,000 mg PO BID 09/16/23 09/16/23 History metoprolol tartrate 25 mg tablet 12.5 mg PO BID 09/16/23 09/16/23 History multivitamin 1 tab PO DAILY 09/16/23 09/16/23 History neomycin-bacitracn Zn-polymyxn 3.5 1 applic topical DIRECTED WOUND 09/16/23 09/16/23 History mg-400 unit-5,000 unit top oint CARE pkt (Neosporin(cak-sst-axqoj)) oxcarbazepine 300 mg tablet 300 mg PO BID 09/16/23 09/16/23 History pentoxifylline 400 mg 400 mg PO TID 09/16/23 09/16/23 History tablet,extended release polyethylene glycol 3350 17 gram 17 g PO DIRECTED PRN 09/16/23 09/16/23 History oral powder packet (Miralax) Constipation quetiapine 100 mg tablet 100 mg PO TID 09/16/23 09/16/23 History sertraline 50 mg tablet 50 mg PO DAILY 09/16/23 09/16/23 History simvastatin 40 mg tablet 40 mg PO QPM 09/16/23 09/16/23 History tamsulosin 0.4 mg capsule 0.4 mg PO DAILY 09/16/23 09/16/23 History trazodone 50 mg tablet 50 mg PO HS 09/16/23 09/16/23 History umeclidinium 62.5 mcg/actuation 1 inh inhalation DAILY 09/16/23 09/16/23 History blister powder for inhalation (Incruse Ellipta) Patient History Medical History Anxiety Aortic stenosis Mild per 09/2021 ECHO Asthma CAP (community acquired pneumonia) Cerebral palsy Chronic obstructive pulmonary disease Well controlled > hasnt used res inh for 2 yrs COPD (chronic obstructive pulmonary disease) Depression Diabetes mellitus, type 2 Diabetes mellitus, type II DJD (degenerative joint disease) Elevated troponin Femoral condyle fracture GERD (gastroesophageal reflux disease) GERD (gastroesophageal reflux disease) History of COVID-19 Tested positive 09/21/21 [facility] ([facility] Sinus congestion only. no hospitalization. No current problems. Hospital-acquired pneumonia Hyperglycemia Hyperlipidemia Hypotension Intellectual disability Lives at [facility] Neck pain Neuropathy TRINIDAD (obstructive sleep apnea) TRINIDAD (obstructive sleep apnea) Per records Osteoporosis Peroneal palsy Pica Pneumonia Presence of IVC filter Placed in 1997 per records PVD (peripheral vascular disease) Scoliosis Severe sepsis Tibia fracture TMJ (temporomandibular joint disorder) Venous insufficiency Surgical History History of cholecystectomy History of colonoscopy History of tooth extraction S/P cataract surgery Left and Right Family History Father Coronary heart disease Social History Smoking Status: Never smoker packs per day: 30; Second Hand Exposure: No; Do You Dip or Chew Tobacco: No; Hx Alcohol Use: No Hx Substance Use: No Preferred Language: Gabonese Communication Ability: Effective Communication Ability Comment: MR LIVES AT [facility] Communication Tools: Other Visual Impairment: No Limitations Hearing Ability: Use of Hearing Aid Wordpress Developer Required: No Beliefs That Will Affect Care: None marital status: Single marital status details: [facility] Current Living Situation: Personal Care Facility Current Living Situation Comment: [facility] current occupational status: disabled How many Children do You have: 0 Feels Safe at Home: Yes Diet: diabetic caffeine: No Assistive Devices: Hospital Bed, Mechanical Lift and Wheelchair Review of Systems Review of Systems: Unable to obtain due to intellectual disability Physical Exam Constitutional: WD/WN, vitals as above cooperative and comfortable; no acute distress and not ill appearing Respiratory: normal respiratory effort; no respiratory distress, no labored breathing and no retractions Gastrointestinal (Abdomen): Inspection/Auscultation: + abdomen distended (moderate distention) and + high-pitched sounds; + abnormal bowel sounds Percussion/Palpation: + abdomen tender (Left mid to left lower quadrant) and abdomen soft; no guarding, abdomen not rigid and abdomen not firm Rectal tube with gas in bag, no stool Psychiatric: Orientation: alert, oriented to person and cooperative Results & Data Vital Signs (Past 12 Hours) Vital Signs Pulse Pulse Resp BP BP Pulse Ox Pulse Ox 09/16/23 07:00 74 09/16/23 06:00 75 16 135/71 95 09/16/23 05:23 74 16 125/66 97 09/16/23 04:12 96 09/16/23 04:08 74 09/16/23 02:59 77 18 117/65 95 09/16/23 01:54 78 09/15/23 22:45 94 09/15/23 22:44 78 18 94 09/15/23 21:55 89 O2 Del Method O2 Del Method O2 Flow Rate 09/16/23 07:00 09/16/23 06:00 Room Air 09/16/23 05:23 Room Air 09/16/23 04:12 Room Air 09/16/23 04:08 09/16/23 02:59 Room Air 09/16/23 01:54 09/15/23 22:45 Room Air 0 09/15/23 22:44 Room Air 09/15/23 21:55 Laboratory Results 09/16/23 09/16/23 09/16/23 Range/Units 08:11 07:00 04:33 WBC 4.20 L (4.8-10.8) K/ul RBC 3.32 L (4.70-6.10) M/uL Hgb 10.9 L (14.0-18.0) g/dl Hct 33.4 L (42.0-52.0) % MCV 100.6 H (80.0-100.0) fL MCH 32.8 (25.0-34.0) pg MCHC 32.6 (32.0-36.0) g/dL RDW Std Deviation 48.4 H (36.4-46.3) fL RDW Coeff of Drew 13.1 (11.5-14.5) % Plt Count 115 L (130-400) K/uL MPV 10.8 (9.4-12.4) fL Immature Gran % (Auto) 0.2 % Neut % (Auto) 64.3 % Lymph % (Auto) 25.7 % [place] % (Auto) 7.9 % Eos % (Auto) 1.2 % Baso % (Auto) 0.7 % Neut # (Auto) 2.70 (1.40-6.50) K/uL Lymph # (Auto) 1.08 L (1.20-3.40) K/uL [place] # (Auto) 0.33 (0.11-0.59) K/uL Eos # (Auto) 0.05 (0.00-0.50) K/uL Baso # (Auto) 0.03 (0.00-0.20) K/uL Immature Gran # (Auto) 0.01 (0.01-0.20) K/uL PT (9.0-12.0) Seconds INR (0.9-1.1) Sodium 135 L (136-145) mmol/L Potassium 4.5 (3.5-5.1) mmol/L Chloride 102 (98-107) mmol/L Carbon Dioxide 28 (21-32) mmol/L Anion Gap 5 (3-11) BUN 22 (6-23) mg/dl Creatinine 0.52 L (0.6-1.4) mg/dl Est Cr Clr Drug Dosing 125.2 ml/min Est GFR ( Amer) 126.1 ml/min Est GFR (Non-Af Amer) 108.8 ml/min BUN/Creatinine Ratio 42.3 H (10-20) Glucose 179 H (70-99(Fasting)) mg/dl POC Glucose 166 H 134 H (70-99) mg/dl Calcium 9.1 (8.6-10.3) mg/dl Magnesium 1.8 (1.7-2.4) mg/dl Total Bilirubin (0.2-1.0) mg/dl AST (13-39) U/L ALT (7-52) U/L Alkaline Phosphatase (34-104) U/L Troponin I High Sens (0-20) pg/ml Total Protein (6.0-8.3) gm/dl Albumin (3.4-5.0) gm/dl Globulin (2.5-4.0) gm/dl Albumin/Globulin Ratio (0.9-2) Lipase (11-82) U/L Urine Color Urine Appearance (Clear) Urine pH (4.5-7.5) Ur Specific [place] (1.000-1.030) Urine Protein (Negative) Urine Glucose (UA) (Negative) Urine Ketones (Negative) Urine Blood (Negative) Urine Nitrite (Negative) Urine Bilirubin (Negative) Urine Urobilinogen (Negative) Ur Leukocyte Esterase (Negative) Stl C. cayetanensis PCR (NotDetected) Stool Rotavirus A PCR (NotDetected) Stl Adenov F 40/41 PCR (NotDetected) Stool Astrovirus (PCR) (NotDetected) Stool Campylobacter PCR (NotDetected) Stl C. diff Tox B Gene (Neg) Stool Cryptosporidium PCR (NotDetected) Stl E.coli Shiga Tox PCR (NotDetected) Stl Enterotoxigenic E PCR (NotDetected) Stool EPEC (PCR) (NotDetected) Stool EAEC (PCR) (NotDetected) Stl E. histolytica PCR (NotDetected) Stool Giardia Lamblia PCR (NotDetected) Stool Salmonella PCR (NotDetected) Stool Sapovirus (PCR) (NotDetected) Stl P. shigelloides PCR (NotDetected) Stl Shigella/EIEC PCR (NotDetected) St Y.enterocolitica PCR (NotDetected) Stool Vibrio (PCR) (NotDetected) Stl Vibrio cholerae PCR (NotDetected) Stl Norovirus GI/GII PCR (NotDetected) 09/15/23 09/15/23 09/15/23 Range/Units Unknown 22:38 22:00 WBC 5.37 (4.8-10.8) K/ul RBC 3.44 L (4.70-6.10) M/uL Hgb 11.4 L (14.0-18.0) g/dl Hct 35.7 L (42.0-52.0) % MCV 103.8 H (80.0-100.0) fL MCH 33.1 (25.0-34.0) pg MCHC 31.9 L (32.0-36.0) g/dL RDW Std Deviation 49.4 H (36.4-46.3) fL RDW Coeff of Drew 13.1 (11.5-14.5) % Plt Count 128 L (130-400) K/uL MPV 11.6 (9.4-12.4) fL Immature Gran % (Auto) 0.2 % Neut % (Auto) 63.6 % Lymph % (Auto) 25.9 % [place] % (Auto) 8.6 % Eos % (Auto) 1.1 % Baso % (Auto) 0.6 % Neut # (Auto) 3.42 (1.40-6.50) K/uL Lymph # (Auto) 1.39 (1.20-3.40) K/uL [place] # (Auto) 0.46 (0.11-0.59) K/uL Eos # (Auto) 0.06 (0.00-0.50) K/uL Baso # (Auto) 0.03 (0.00-0.20) K/uL Immature Gran # (Auto) 0.01 (0.01-0.20) K/uL PT 9.8 (9.0-12.0) Seconds INR 0.9 (0.9-1.1) Sodium 134 L (136-145) mmol/L Potassium 4.3 (3.5-5.1) mmol/L Chloride 101 (98-107) mmol/L Carbon Dioxide 24 (21-32) mmol/L Anion Gap 9 (3-11) BUN 32 H (6-23) mg/dl Creatinine 0.69 (0.6-1.4) mg/dl Est Cr Clr Drug Dosing 94.3 ml/min Est GFR ( Amer) 112.3 ml/min Est GFR (Non-Af Amer) 96.9 ml/min BUN/Creatinine Ratio 46.4 H (10-20) Glucose 264 H (70-99(Fasting)) mg/dl POC Glucose (70-99) mg/dl Calcium 9.6 (8.6-10.3) mg/dl Magnesium 1.2 L (1.7-2.4) mg/dl Total Bilirubin 0.3 (0.2-1.0) mg/dl AST 22 (13-39) U/L ALT 20 (7-52) U/L Alkaline Phosphatase 98 (34-104) U/L Troponin I High Sens 8.7 (0-20) pg/ml Total Protein 6.5 (6.0-8.3) gm/dl Albumin 3.7 (3.4-5.0) gm/dl Globulin 2.8 (2.5-4.0) gm/dl Albumin/Globulin Ratio 1.3 (0.9-2) Lipase 144 H (11-82) U/L Urine Color Yellow Urine Appearance Clear (Clear) Urine pH 6.5 (4.5-7.5) Ur Specific [place] 1.020 (1.000-1.030) Urine Protein Negative (Negative) Urine Glucose (UA) Negative (Negative) Urine Ketones Negative (Negative) Urine Blood Negative (Negative) Urine Nitrite Negative (Negative) Urine Bilirubin Negative (Negative) Urine Urobilinogen Negative (Negative) Ur Leukocyte Esterase Negative (Negative) Stl C. cayetanensis PCR Not Detected (NotDetected) Stool Rotavirus A PCR Not Detected (NotDetected) Stl Adenov F 40/41 PCR Not Detected (NotDetected) Stool Astrovirus (PCR) Not Detected (NotDetected) Stool Campylobacter PCR Not Detected (NotDetected) Stl C. diff Tox B Gene Negative Cdiff Gene (Neg) Stool Cryptosporidium PCR Not Detected (NotDetected) Stl E.coli Shiga Tox PCR Not Detected (NotDetected) Stl Enterotoxigenic E PCR Not Detected (NotDetected) Stool EPEC (PCR) Not Detected (NotDetected) Stool EAEC (PCR) Not Detected (NotDetected) Stl E. histolytica PCR Not Detected (NotDetected) Stool Giardia Lamblia PCR Not Detected (NotDetected) Stool Salmonella PCR Not Detected (NotDetected) Stool Sapovirus (PCR) Not Detected (NotDetected) Stl P. shigelloides PCR Not Detected (NotDetected) Stl Shigella/EIEC PCR Not Detected (NotDetected) St Y.enterocolitica PCR Not Detected (NotDetected) Stool Vibrio (PCR) Not Detected (NotDetected) Stl Vibrio cholerae PCR Not Detected (NotDetected) Stl Norovirus GI/GII PCR Not Detected (NotDetected) Diagnostic Findings Exam(s): CT ABDOMEN + PELVIS Without Contrast EXAM: CT Abdomen and Pelvis Without Intravenous Contrast CLINICAL HISTORY: Reason for exam: N/V, eval for SBO, contrast allx. TECHNIQUE: Axial computed tomography images of the abdomen and pelvis without intravenous contrast. Automated exposure control was utilized for the study. A dose lowering technique was utilized adhering to the principles of ALARA. COMPARISON: 12/21/2022. FINDINGS: Lung bases: Bilateral lower lobe consolidation suggestive of atelectasis versus infiltrate. Heart: Unremarkable. No cardiomegaly. No significant pericardial effusion. Normal cardiac size with coronary artery calcifications. ABDOMEN: Liver: Unremarkable. Gallbladder and bile ducts: Status post cholecystectomy with biliary distention. No ductal dilation. Pancreas: Suboptimally seen pancreatic head. No ductal dilation. Spleen: Unremarkable. No splenomegaly. Adrenals: Unremarkable. No mass. Kidneys and ureters: Unremarkable. No obstructing stones. No hydronephrosis. Stomach and bowel: Nonspecific distention of the small bowel and stomach reaching approximately 4.6 cm suggestive of small bowel ileus versus small bowel obstruction with indeterminate zone of transition. There is mild distention of the right colon with air-fluid level. There is fluid within the descending. No mucosal thickening. PELVIS: Appendix: No findings to suggest acute appendicitis. Bladder: Unremarkable. No stones. Reproductive: Unremarkable as visualized. ABDOMEN and PELVIS: Intraperitoneal space: Unremarkable. No free air. No significant fluid collection. Bones/joints: Multilevel degenerative disease of the spine with scoliosis. Sacral level fractures involving the bilateral superior and inferior pubic. Decrease in vertebral body heights are well done lower thoracic spine and L1, likely sequela of compression fractures, exact age indeterminate and likely old given morphology. There is a good level fractures involving the bilateral ribs. Soft tissues: High density at the level of the left buttock, just lateral to the left greater trochanter suggestive of small hematoma measuring 3.6 x 2.3 cm. Vasculature: IVC filter in place. Tortuosity of aorta with no aneurysm. Calcified atherosclerotic disease of bilateral iliac arteries with no aneurysm. Lymph nodes: Unremarkable. No enlarged lymph nodes. IMPRESSION: 1. Diffuse distention of the small bowel and stomach with air-fluid levels suggestive of ileus versus enteritis. Due to distention of the right colon with fluid within the lumen and presence of fluid within the descending colon, differential diagnosis includes ileus with small bowel obstruction of indeterminate zone of transition less likely but not entirely excluded. 2. Clinical correlation recommended and follow-up with 2 views of the abdomen recommended for further evaluation to evaluate progression. Electronically signed by: Mireya Mccollum MD 09/16/23 01:55 AM
[2023-09-16] MEDS: TAMSULOSIN HCL 0.4 MG CAP PO SCH (11:45)
[2023-09-16] MEDS: UMECLIDINIUM BROMIDE 62.5MCG/BLISTER 7 PUFFS/INHALER INH SCH (11:45)
[2023-09-16] MEDS: FINASTERIDE 5 MG TAB PO SCH (11:45)
[2023-09-16] MEDS: METOPROLOL TARTRATE 25 MG TAB PO SCH ×2 (11:45→20:15)
[2023-09-16] MEDS: QUEtiapine FUMARATE 100 MG TABLET PO SCH ×3 (11:45→20:14)
[2023-09-16] MEDS: SERTRALINE HCL 50 MG TABLET PO SCH (11:45)
[2023-09-16] MEDS: GABAPENTIN 300 MG CAP PO SCH ×3 (11:45→20:14)
[2023-09-16] MEDS: OXcarbazepine 150 MG TABLET PO SCH ×2 (11:45→20:13)
[2023-09-16] MEDS: MULTIVITAMIN TAB PO SCH (11:45)
[2023-09-16] MEDS: ARTIFICIAL TEARS OP SCH ×2 (11:45→22:51)
--- NOTE | 2023-09-16 14:55 | Communication Note ---
Date of Service: September 16, 2023 Pt seen while down in the ED. Was being switched to a different bed, same room. Currently NPO, continue to hold insulin. General surgery on board- recommending NG tube if things worsen, no surgical intervention at this time. Pt stated abdomen was very tender on exam, soft to palpation. Continue IVF. Will continue to monitor.
--- NOTE | 2023-09-16 15:13 | XRay Report ---
XR KUB/Abdomen 1 view CLINICAL HISTORY: eval ileus vs obs, gastric distention, rectal tube TECHNIQUE: 1 view of the abdomen was obtained. Comparison: Comparison is made to abdomen radiograph 12/23/2022 FINDINGS: IVC filter is seen. Degenerative changes are seen with scoliosis. Numerous gas-distended loops of sma ll bowel are seen without juanis dilation. Small stool burden is seen. IMPRESSION: Gas-distended loops of small bowel without abnormal dilation, likely representing ileus, less likely early/partial obstruction. ACT 112: Negative or not required by law. Electronically signed by: Linwood Crews M.D. 09/16/2023 3:11 PM
[2023-09-16] MEDS ORDERED: INFLUENZA VACCINE HIGH-DOSE (HD-IIV4) PF 65+ 0.7mL SYR IM ONE (19:16)
[2023-09-16] MEDS ORDERED: PNEUMOCOCCAL VACCINE (PCV20) 20-VAL CONJ-DIP CRM/PF 0.5 ML SYR IM ONE (19:16)
[2023-09-16] MEDS: ACETAMINOPHEN 325 MG TAB PO PRN (20:12)
[2023-09-16] MEDS: SIMVASTATIN 40 MG TAB PO SCH (20:13)
[2023-09-16] MEDS: traZODone HCL 50 MG TAB PO SCH (20:14)
[2023-09-16] MEDS: LANTUS PER UNIT CHARGE SQ SCH (22:34)
[2023-09-16] MEDS: DOXYCYCLINE HYCLATE 100 MG CAP PO SCH (22:51)
[2023-09-17] MEDS: INSULIN ASPART PER UNIT CHARGE SC SCH ×4 (00:13→16:46)
[2023-09-17] MEDS: ACETAMINOPHEN 325 MG TAB PO PRN ×2 (05:16→21:29)
[2023-09-17] MEDS: BISMUTH SUBSALICYLATE 262 MG CHEW PO PRN (05:17)
[2023-09-17] MEDS: DOXYCYCLINE HYCLATE 100 MG CAP PO SCH ×2 (08:05→21:31)
[2023-09-17] MEDS: SERTRALINE HCL 50 MG TABLET PO SCH (08:05)
[2023-09-17] MEDS: QUEtiapine FUMARATE 100 MG TABLET PO SCH ×3 (08:05→21:51)
[2023-09-17] MEDS: MULTIVITAMIN TAB PO SCH (08:06)
[2023-09-17] MEDS: GABAPENTIN 300 MG CAP PO SCH ×3 (08:06→21:32)
[2023-09-17] MEDS: FINASTERIDE 5 MG TAB PO SCH (08:06)
[2023-09-17] MEDS: TAMSULOSIN HCL 0.4 MG CAP PO SCH (08:06)
[2023-09-17] MEDS: UMECLIDINIUM BROMIDE 62.5MCG/BLISTER 7 PUFFS/INHALER INH SCH (08:07)
[2023-09-17] MEDS: clonazePAM 0.5 MG TAB PO SCH ×3 (08:11→21:29)
[2023-09-17] MEDS: ARTIFICIAL TEARS OP SCH ×2 (11:25→21:31)
[2023-09-17] MEDS: OXcarbazepine 150 MG TABLET PO SCH ×2 (11:25→21:32)
[2023-09-17] MEDS: METOPROLOL TARTRATE 25 MG TAB PO SCH ×2 (11:26→21:33)
--- NOTE | 2023-09-17 12:40 | Surgery Progress Note ---
Date of Service September 17, 2023 Assessment & Plan (1) Gastroenteritis: (2) Cerebral palsy: (3) Ileus: Plan 68 year-old male with multiple medical comorbidities with cerebral palsy who presented to ED with vomiting and diarrhea. CT scan of abd/pelvis without contrast showing diffuse distention of stomach, small bowel and right colon likely gastroenteritis vs ileus. Last hospitalization in January 2023 for gastroenteritis. 09/17/2023: formed bowel movement this am and passing a lot of flatus per nurse abdomen still distended but softer, no peritonitis KUB yesterday showed Gas-distended loops of small bowel without abnormal dilation, likely representing ileus, less likely early/partial obstruction. Plan: No acute surgical intervention required at this time. Likely gastroenteritis causing moderate gastrointestinal ileus okay for clears Continue medical management Discussed with Dr. dye who agrees with above. Admission and Anticipated Discharge Date Admission Date: September 16, 2023 Subjective ROS limited given patients intellectual disability and mumbled speech states he is cold Nurse said he had formed bowel movement this morning before her shift, started on clears and then possibly had some belly pain. Now took clears away. Passing a lot of gas. Physical Exam Constitutional: WD/WN, vitals as above cooperative; no acute distress, not ill appearing and not in distress Gastrointestinal (Abdomen): Inspection/Auscultation: + abdomen distended (moderate) and normal bowel sounds; no high-pitched sounds Percussion/Palpation: + abdomen tender (epigastrium) and abdomen soft (softer than yesterday); no guarding and abdomen not rigid Skin: no rashes, warm and dry Psychiatric: Orientation: alert Results & Data Vital Signs (Past 12 Hours) Vital Signs Temp Pulse Pulse Resp BP Pulse Ox O2 Del Method 09/17/23 11:18 36.4 C L 69 153/68 H 100 Room Air 09/17/23 09:59 66 09/17/23 07:59 36.7 C 61 18 158/79 H 96 Room Air 09/17/23 07:40 Room Air 09/17/23 04:38 36.5 C 67 18 112/68 93 Room Air 09/17/23 04:32 Room Air Laboratory Results 09/17/23 09/17/23 09/17/23 Range/Units 12:19 08:20 06:22 POC Glucose 276 H 140 H 143 H (70-99) mg/dl Nasal Screen MRSA (PCR) (Negative) 09/17/23 09/17/23 09/16/23 Range/Units 05:50 00:12 22:09 POC Glucose 107 H 103 H (70-99) mg/dl Nasal Screen MRSA (PCR) Negative (Negative) 09/16/23 09/16/23 Range/Units 17:55 12:58 POC Glucose 171 H 148 H (70-99) mg/dl Nasal Screen MRSA (PCR) (Negative)
--- NOTE | 2023-09-17 17:43 | Hospitalist Progress Note ---
Date of Service September 17, 2023 Assessment & Plan (1) Ileus: Plan: SBO versus ileus secondary to gastroenteritis rule out C. difficile Kept on n.p.o. Appreciate surgery input and recommendation Has been moving bowels without any abdominal symptoms Will start clears oral Chronic diastolic heart failure (EF 60-65%, TTE 2022), patient on dry side PAF not on anticoagulation due to fall risk, patient NSR mild PVD on Pentoxifylline (2) Hypomagnesemia: Plan: Secondary to GI illness Supplemented and corrected (3) Gastroenteritis: Plan: Possible gastroenteritis on presentation With nausea and vomiting Has been feeling much better C. difficile toxin has been (4) Cerebral palsy: Plan: hx cerebral palsy/Klinefelter syndrome, intellectual disability as per records Remains stable (5) Intellectual disability: (6) Diabetes mellitus, type 2: Plan: Basal bolus insulin adjusted for n.p.o. status, ISS BG goal 1 10-1 40 Blood sugar remains stable (7) Chronic obstructive pulmonary disease: Plan: No acute exacerbation Plan Other significant medical conditions remained stable DVT prophylaxis. SCDs Re: Thrombocytopenia, hematoma Possible hematoma left buttock on CT read, unclear if patient had recent trauma, hemoglobin currently at baseline chronic thrombocytopenia DNR as per patient prior directives as per discussion with patient guardian/caregiver Ms. Gracia Nichols. She requests updates from providers through [phone]. Admission and Anticipated Discharge Date Admission Date: September 16, 2023 Subjective 09/17/2023 The patient was seen and examined in medical telemetry unit She denies any abdominal symptoms and wants to eat Has had a good bowel movement and has strong bowel sound Will start oral feeding with clears orally Review of Systems Review of Systems: All systems reviewed and are unremarkable except as noted below Physical Exam Physical Exam: Lying in bed without any acute distress Constitutional: + ill appearing and average body habitus Eyes: PERRL, conjunctivae normal, anicteric sclerae ENMT: external ear and nose normal, oropharynx normal Neck: trachea midline, no thyromegaly Respiratory: no respiratory distress Auscultation: + diminished lung sounds and + crackles (Minimal crackles at the bases) Cardiovascular: Rate/Rhythm: regular rate and regular rhythm; not tachycardic Heart Sounds: normal S1, normal S2 and + murmur Extremities: no edema Gastrointestinal (Abdomen): Inspection/Auscultation: normal bowel sounds; abdomen not distended Percussion/Palpation: abdomen soft; abdomen nontender Musculoskeletal: No acute arthritis involving any of the joint Neurologic: normal touch/pain/proprioception and moves all extremities; no focal motor deficits Lymphatic: no cervical or axillary lymphadenopathy Results & Data Results & Data Vital Signs (Past 12 Hours) Vital Signs Temp Pulse Pulse Resp BP Pulse Ox O2 Del Method 09/17/23 16:04 36.5 C 63 160/78 H 96 Room Air 09/17/23 15:19 72 09/17/23 11:18 36.4 C L 69 153/68 H 100 Room Air 09/17/23 09:59 66 09/17/23 07:59 36.7 C 61 18 158/79 H 96 Room Air 09/17/23 07:40 Room Air Medications Administered Current Inpatient Medications Acetaminophen (Acetaminophen 325 Mg Tab) 650 mg PO Q4H PRN PRN Reason: Pain or Fever Stop: 10/16/23 04:11 Last Admin: 09/17/23 05:16 Dose: 650 mg Artificial Tears (Artificial Tears) 1 drops OP BID [facility] Stop: 10/16/23 08:59 Last Admin: 09/17/23 11:25 Dose: Not Given Bismuth Subsalicylate (Bismuth Subsalicylate 262 Mg Chew) 1 tab PO Q12 PRN PRN Reason: .UPSET STOMACH Stop: 10/16/23 03:26 Last Admin: 09/17/23 05:17 Dose: 1 tab Clonazepam (Clonazepam 0.5 Mg Tab) 0.5 mg PO TID@0800,1600,2000 [facility] Stop: 10/16/23 07:59 Last Admin: 09/17/23 14:52 Dose: 0.5 mg Dextrose (Dextrose 50% 50 Ml Syringe) 25 - 50 ml IV UD PRN; Protocol PRN Reason: Hypoglycemia Protocol Stop: 10/16/23 02:56 Doxycycline Hyclate (Doxycycline Hyclate 100 Mg Cap) 100 mg PO BID [facility] Stop: 09/23/23 20:59 Last Admin: 09/17/23 08:05 Dose: 100 mg Finasteride (Finasteride 5 Mg Tab) 5 mg PO QAM [facility] Stop: 10/16/23 08:59 Last Admin: 09/17/23 08:06 Dose: 5 mg Gabapentin (Gabapentin 300 Mg Cap) 300 mg PO TID [facility] Stop: 10/16/23 08:59 Last Admin: 09/17/23 14:52 Dose: 300 mg Glucagon (Glucagon For Inj 1 Mg Vial) 1 mg SQ UD PRN; Protocol PRN Reason: Hypoglycemia Protocol Stop: 10/16/23 02:56 Glucose (Glucose 10 Tab/Tube) 4 - 8 tab PO UD PRN; Protocol PRN Reason: Hypoglycemia Treatment Stop: 10/16/23 02:56 Glucose (Glucose 40% Gel 15 Gm Tube) 15 - 30 gm PO UD PRN; Protocol PRN Reason: Hypoglycemia Protocol Stop: 10/16/23 02:56 Promethazine HCl 6.25 mg/ (Sodium Chloride) 50.25 mls @ 201 mls/hr IV Q6H PRN PRN Reason: Nausea And Vomiting Stop: 10/16/23 02:56 Last Infusion: 09/16/23 17:22 Dose: Infused Insulin Aspart (Insulin Aspart Per Unit Charge) 0 units SC Q6 [facility] Stop: 10/16/23 05:59 Last Admin: 09/17/23 16:46 Dose: Not Given Insulin Glargine (Lantus Per Unit Charge) 5 units SQ HS [facility] Stop: 10/16/23 20:59 Last Admin: 09/16/23 22:34 Dose: Not Given Metoprolol Tartrate (Metoprolol Tartrate 25 Mg Tab) 12.5 mg PO BID [facility] Stop: 10/16/23 08:59 Last Admin: 09/17/23 11:26 Dose: Not Given Miscellaneous (Carbohydrates For Hypoglycemia ) 15 - 30 gm PO UD PRN PRN Reason: Hypoglycemia Protocol Stop: 10/16/23 02:56 Multivitamins (Multivitamin Tab) 1 tab PO DAILY [facility] Stop: 10/16/23 08:59 Last Admin: 09/17/23 08:06 Dose: 1 tab Oxcarbazepine (Oxcarbazepine 150 Mg Tablet) 300 mg PO BID [facility] Stop: 10/16/23 08:59 Last Admin: 09/17/23 11:25 Dose: Not Given Quetiapine Fumarate (Quetiapine Fumarate 100 Mg Tablet) 100 mg PO TID [facility] Stop: 10/16/23 08:59 Last Admin: 09/17/23 14:53 Dose: 100 mg Sertraline HCl (Sertraline Hcl 50 Mg Tablet) 50 mg PO DAILY [facility] Stop: 10/16/23 08:59 Last Admin: 09/17/23 08:05 Dose: 50 mg Simvastatin (Simvastatin 40 Mg Tab) 40 mg PO QPM [facility] Stop: 10/16/23 20:59 Last Admin: 09/16/23 20:13 Dose: 40 mg Tamsulosin HCl (Tamsulosin Hcl 0.4 Mg Cap) 0.4 mg PO DAILY [facility] Stop: 10/16/23 08:59 Last Admin: 09/17/23 08:06 Dose: 0.4 mg Trazodone HCl (Trazodone Hcl 50 Mg Tab) 50 mg PO HS [facility] Stop: 10/16/23 20:59 Last Admin: 09/16/23 20:14 Dose: 50 mg Umeclidinium [place] (Umeclidinium [place] 62.5mcg/Blister 7 Puffs/Inhaler) 1 puffs INH DAILY [facility] Stop: 10/16/23 08:59 Last Admin: 09/17/23 08:07 Dose: 1 puffs
[2023-09-17] MEDS: traZODone HCL 50 MG TAB PO SCH (21:30)
[2023-09-17] MEDS: LANTUS PER UNIT CHARGE SQ SCH (21:31)
[2023-09-17] MEDS: SIMVASTATIN 40 MG TAB PO SCH (21:32)
[2023-09-18] MEDS: INSULIN ASPART PER UNIT CHARGE SC SCH ×5 (00:27→21:30)
--- NOTE | 2023-09-18 06:10 | Electrocardiogram Report ---
Test Reason : Blood Pressure : / mmHG Vent. Rate : 083 BPM Atrial Rate : 083 BPM P-R Int : 196 ms QRS Dur : 112 ms QT Int : 366 ms P-R-T Axes : 052 -09 -11 degrees QTc Int : 430 ms Sinus rhythm with Premature supraventricular complexes Incomplete right bundle branch block Septal infarct (cited on or before 15-SEP-2023) Abnormal ECG When compared with ECG of 19-JUL-2023 16:54, Inverted T waves have replaced nonspecific T wave abnormality in Inferior leads Confirmed by Marcelino Gallegos ([id number]) on 09/18/2023 6:10:19 AM Referred By: REFERRED SELF Confirmed By:Marcelino Gallegos
[2023-09-18 08:47] LABS: Hematocrit (blood only) 39.8 % (42.0-52.0); Hemoglobin 13.2 g/dl (14.0-18.0); Mean Corpuscular Hemoglobin 32.8 pg (25.0-34.0); Mean Corpuscular Hgb Conc 33.2 g/dL (32.0-36.0); Mean Platelet Volume 11.4 fL (9.4-12.4); Platelet Count 125 K/uL (130-400); RDW Coefficient of Variation 13.2 % (11.5-14.5); RDW Standard Deviation 47.4 fL (36.4-46.3); Red Blood Count 4.02 M/uL (4.70-6.10); White Blood Count 3.73 K/ul (4.8-10.8)
[2023-09-18 08:48] LABS: Basophils # (auto) 0.04 K/uL (0.00-0.20); Basophils % (auto) 1.1 %; Eosinophils # (auto) 0.07 K/uL (0.00-0.50); Eosinophils % (auto) 1.9 %; Immature Granulocytes # (auto) 0.01 K/uL (0.01-0.20); Immature Granulocytes % (auto) 0.3 %; Lymphocytes # (auto) 0.88 K/uL (1.20-3.40); Lymphocytes % (auto) 23.6 %; Monocytes # (auto) 0.34 K/uL (0.11-0.59); Monocytes % (auto) 9.1 %; Neutrophils # (auto) 2.39 K/uL (1.40-6.50); Platelet Estimate Decreased (Normal)
[2023-09-18 08:54] LABS: Anion Gap 4 (3-11); Blood Urea Nitrogen 9 mg/dl (6-23); Calcium 9.4 mg/dl (8.6-10.3); Carbon Dioxide 30 mmol/L (21-32); Chloride 95 mmol/L (98-107); Creatinine Clr Calc Pharmacy 127.8 ml/min; Est GFR (African American) 128.2 ml/min; Est GFR (Non-African American) 110.6 ml/min; Glucose 107 mg/dl (70-99(Fasting)); Magnesium 1.5 mg/dl (1.7-2.4); Phosphorus 3.7 mg/dl (2.5-4.9); Sodium 129 mmol/L (136-145)
[2023-09-18] MEDS: OXcarbazepine 150 MG TABLET PO SCH ×2 (08:57→21:32)
[2023-09-18] MEDS: QUEtiapine FUMARATE 100 MG TABLET PO SCH ×3 (08:57→21:31)
[2023-09-18] MEDS: TAMSULOSIN HCL 0.4 MG CAP PO SCH (08:57)
[2023-09-18] MEDS: SERTRALINE HCL 50 MG TABLET PO SCH (08:58)
[2023-09-18] MEDS: GABAPENTIN 300 MG CAP PO SCH ×3 (08:58→21:33)
[2023-09-18] MEDS: MULTIVITAMIN TAB PO SCH (08:58)
[2023-09-18] MEDS: DOXYCYCLINE HYCLATE 100 MG CAP PO SCH ×2 (08:58→21:31)
[2023-09-18] MEDS: FINASTERIDE 5 MG TAB PO SCH (08:58)
[2023-09-18] MEDS: UMECLIDINIUM BROMIDE 62.5MCG/BLISTER 7 PUFFS/INHALER INH SCH (09:00)
[2023-09-18] MEDS: METOPROLOL TARTRATE 25 MG TAB PO SCH ×2 (09:01→21:33)
[2023-09-18] MEDS: clonazePAM 0.5 MG TAB PO SCH ×3 (09:26→21:37)
[2023-09-18] MEDS: ARTIFICIAL TEARS OP SCH ×2 (09:26→21:33)
--- NOTE | 2023-09-18 13:59 | Hospitalist Progress Note ---
Date of Service September 18, 2023 Assessment & Plan (1) Ileus: Plan: SBO versus ileus secondary to gastroenteritis rule out C. difficile Kept on n.p.o. Appreciate surgery input and recommendation Has been moving bowels without any abdominal symptoms Will start clears oral She has been tolerating clears and will advance as tolerated Chronic diastolic heart failure (EF 60-65%, TTE 2022), patient on dry side PAF not on anticoagulation due to fall risk, patient NSR mild PVD on Pentoxifylline No signs and or symptoms of fluid overload and no chest pain or palpitation (2) Hypomagnesemia: Plan: Secondary to GI illness Supplemented and corrected Sodium level has been a little low at 129 on 09/18/2023 (3) Gastroenteritis: Plan: Possible gastroenteritis on presentation With nausea and vomiting Has been feeling much better C. difficile toxin has been negative (4) Cerebral palsy: Plan: hx cerebral palsy/Klinefelter syndrome, intellectual disability as per records Remains stable (5) Intellectual disability: (6) Diabetes mellitus, type 2: Plan: Basal bolus insulin adjusted for n.p.o. status, ISS BG goal 1 10-1 40 Blood sugar remains stable (7) Chronic obstructive pulmonary disease: Plan: No acute exacerbation Plan Other significant medical conditions remained stable DVT prophylaxis. SCDs Re: Thrombocytopenia, hematoma Possible hematoma left buttock on CT read, unclear if patient had recent trauma, hemoglobin currently at baseline chronic thrombocytopenia DNR as per patient prior directives as per discussion with patient guardian/caregiver Ms. Gracia Nichols. She requests updates from providers through [phone]. Admission and Anticipated Discharge Date Admission Date: September 16, 2023 Subjective 09/17/2023 The patient was seen and examined in medical telemetry unit She denies any abdominal symptoms and wants to eat Has had a good bowel movement and has strong bowel sound Will start oral feeding with clears orally 09/18/2023 The patient was seen and examined in medical telemetry unit She has been stable and denies any significant symptoms Has been eating and drinking reasonably as per the nursing staff Physical Exam Physical Exam: Lying in bed without any acute distress Constitutional: + ill appearing and average body habitus Eyes: PERRL, conjunctivae normal, anicteric sclerae ENMT: external ear and nose normal, oropharynx normal Neck: trachea midline, no thyromegaly Respiratory: no respiratory distress Auscultation: + diminished lung sounds and + crackles (Minimal crackles at the bases) Cardiovascular: Rate/Rhythm: regular rate and regular rhythm; not tachycardic Heart Sounds: normal S1, normal S2 and + murmur Extremities: no edema Gastrointestinal (Abdomen): Inspection/Auscultation: normal bowel sounds; abdomen not distended Percussion/Palpation: abdomen soft; abdomen nontender Musculoskeletal: No acute arthritis involving any joint Neurologic: normal touch/pain/proprioception and moves all extremities; no focal motor deficits Lymphatic: no cervical or axillary lymphadenopathy Results & Data Results & Data Vital Signs (Past 12 Hours) Vital Signs Temp Pulse Pulse Pulse Resp BP Pulse Ox 09/18/23 12:17 09/18/23 11:50 35.6 C L 61 20 161/85 H 100 09/18/23 07:54 62 09/18/23 07:52 65 18 162/82 H 100 09/18/23 03:39 37 C 55 L 18 144/72 H 98 O2 Del Method 09/18/23 12:17 Room Air 09/18/23 11:50 Room Air 09/18/23 07:54 09/18/23 07:52 Room Air 09/18/23 03:39 Room Air Laboratory Results Short CBC 09/18/23 Range/Units 08:01 WBC 3.73 L (4.8-10.8) K/ul Hgb 13.2 L (14.0-18.0) g/dl Hct 39.8 L (42.0-52.0) % Plt Count 125 L (130-400) K/uL BMP 09/18/23 09/18/23 08:01 09:46 Sodium 129 L Potassium TNP 4.8 Chloride 95 L Carbon Dioxide 30 BUN 9 Creatinine 0.50 L Glucose 107 H Calcium 9.4 Medications Administered Current Inpatient Medications Acetaminophen (Acetaminophen 325 Mg Tab) 650 mg PO Q4H PRN PRN Reason: Pain or Fever Stop: 10/16/23 04:11 Last Admin: 09/17/23 21:29 Dose: 650 mg Artificial Tears (Artificial Tears) 1 drops OP BID [facility] Stop: 10/16/23 08:59 Last Admin: 09/18/23 09:26 Dose: 1 drops Bismuth Subsalicylate (Bismuth Subsalicylate 262 Mg Chew) 1 tab PO Q12 PRN PRN Reason: .UPSET STOMACH Stop: 10/16/23 03:26 Last Admin: 09/17/23 05:17 Dose: 1 tab Clonazepam (Clonazepam 0.5 Mg Tab) 0.5 mg PO TID@0800,1600,2000 [facility] Stop: 10/16/23 07:59 Last Admin: 09/18/23 09:26 Dose: 0.5 mg Dextrose (Dextrose 50% 50 Ml Syringe) 25 - 50 ml IV UD PRN; Protocol PRN Reason: Hypoglycemia Protocol Stop: 10/16/23 02:56 Doxycycline Hyclate (Doxycycline Hyclate 100 Mg Cap) 100 mg PO BID [facility] Stop: 09/23/23 20:59 Last Admin: 09/18/23 08:58 Dose: 100 mg Finasteride (Finasteride 5 Mg Tab) 5 mg PO QAM [facility] Stop: 10/16/23 08:59 Last Admin: 09/18/23 08:58 Dose: 5 mg Gabapentin (Gabapentin 300 Mg Cap) 300 mg PO TID [facility] Stop: 10/16/23 08:59 Last Admin: 09/18/23 08:58 Dose: 300 mg Glucagon (Glucagon For Inj 1 Mg Vial) 1 mg SQ UD PRN; Protocol PRN Reason: Hypoglycemia Protocol Stop: 10/16/23 02:56 Glucose (Glucose 10 Tab/Tube) 4 - 8 tab PO UD PRN; Protocol PRN Reason: Hypoglycemia Treatment Stop: 10/16/23 02:56 Glucose (Glucose 40% Gel 15 Gm Tube) 15 - 30 gm PO UD PRN; Protocol PRN Reason: Hypoglycemia Protocol Stop: 10/16/23 02:56 Promethazine HCl 6.25 mg/ (Sodium Chloride) 50.25 mls @ 201 mls/hr IV Q6H PRN PRN Reason: Nausea And Vomiting Stop: 10/16/23 02:56 Last Infusion: 09/16/23 17:22 Dose: Infused Insulin Aspart (Insulin Aspart Per Unit Charge) 0 units SC ACHS [facility] Stop: 10/18/23 11:29 Insulin Glargine (Lantus Per Unit Charge) 5 units SQ HS [facility] Stop: 10/16/23 20:59 Last Admin: 09/17/23 21:31 Dose: 5 units Metoprolol Tartrate (Metoprolol Tartrate 25 Mg Tab) 12.5 mg PO BID [facility] Stop: 10/16/23 08:59 Last Admin: 09/18/23 09:01 Dose: 12.5 mg Miscellaneous (Carbohydrates For Hypoglycemia ) 15 - 30 gm PO UD PRN PRN Reason: Hypoglycemia Protocol Stop: 10/16/23 02:56 Multivitamins (Multivitamin Tab) 1 tab PO DAILY [facility] Stop: 10/16/23 08:59 Last Admin: 09/18/23 08:58 Dose: 1 tab Oxcarbazepine (Oxcarbazepine 150 Mg Tablet) 300 mg PO BID [facility] Stop: 10/16/23 08:59 Last Admin: 09/18/23 08:57 Dose: 300 mg Quetiapine Fumarate (Quetiapine Fumarate 100 Mg Tablet) 100 mg PO TID [facility] Stop: 10/16/23 08:59 Last Admin: 09/18/23 08:57 Dose: 100 mg Sertraline HCl (Sertraline Hcl 50 Mg Tablet) 50 mg PO DAILY [facility] Stop: 10/16/23 08:59 Last Admin: 09/18/23 08:58 Dose: 50 mg Simvastatin (Simvastatin 40 Mg Tab) 40 mg PO QPM [facility] Stop: 10/16/23 20:59 Last Admin: 09/17/23 21:32 Dose: 40 mg Tamsulosin HCl (Tamsulosin Hcl 0.4 Mg Cap) 0.4 mg PO DAILY [facility] Stop: 10/16/23 08:59 Last Admin: 09/18/23 08:57 Dose: 0.4 mg Trazodone HCl (Trazodone Hcl 50 Mg Tab) 50 mg PO HS [facility] Stop: 10/16/23 20:59 Last Admin: 09/17/23 21:30 Dose: 50 mg Umeclidinium [place] (Umeclidinium [place] 62.5mcg/Blister 7 Puffs/Inhaler) 1 puffs INH DAILY [facility] Stop: 10/16/23 08:59 Last Admin: 09/18/23 09:00 Dose: 1 puffs
[2023-09-18] MEDS: LANTUS PER UNIT CHARGE SQ SCH (21:30)
[2023-09-18] MEDS: BISMUTH SUBSALICYLATE 262 MG CHEW PO PRN (21:31)
[2023-09-18] MEDS: SIMVASTATIN 40 MG TAB PO SCH (21:32)
[2023-09-18] MEDS: traZODone HCL 50 MG TAB PO SCH (21:37)
[2023-09-19 06:45] LABS: BUN Creatinine Ratio 21.3 (10-20); Calcium 8.6 mg/dl (8.6-10.3); Est GFR (African American) 131.5 ml/min; Est GFR (Non-African American) 113.4 ml/min; Magnesium 1.2 mg/dl (1.7-2.4); Potassium 4.5 mmol/L (3.5-5.1)
[2023-09-19] MEDS: SERTRALINE HCL 50 MG TABLET PO SCH (07:48)
[2023-09-19] MEDS: ACETAMINOPHEN 325 MG TAB PO PRN (07:48)
[2023-09-19] MEDS: clonazePAM 0.5 MG TAB PO SCH ×3 (07:48→20:54)
[2023-09-19] MEDS: FINASTERIDE 5 MG TAB PO SCH (07:49)
[2023-09-19] MEDS: GABAPENTIN 300 MG CAP PO SCH ×3 (07:49→20:57)
[2023-09-19] MEDS: OXcarbazepine 150 MG TABLET PO SCH ×2 (07:49→20:55)
[2023-09-19] MEDS: DOXYCYCLINE HYCLATE 100 MG CAP PO SCH (07:49)
[2023-09-19] MEDS: MULTIVITAMIN TAB PO SCH (07:49)
[2023-09-19] MEDS: UMECLIDINIUM BROMIDE 62.5MCG/BLISTER 7 PUFFS/INHALER INH SCH (07:50)
[2023-09-19] MEDS: QUEtiapine FUMARATE 100 MG TABLET PO SCH ×3 (07:50→20:56)
[2023-09-19] MEDS: ARTIFICIAL TEARS OP SCH ×2 (07:50→20:57)
[2023-09-19] MEDS: TAMSULOSIN HCL 0.4 MG CAP PO SCH (07:50)
[2023-09-19] MEDS: METOPROLOL TARTRATE 25 MG TAB PO SCH ×2 (07:52→20:56)
[2023-09-19] MEDS: INSULIN ASPART PER UNIT CHARGE SC SCH ×4 (10:12→20:54)
[2023-09-19] MEDS: MAGNESIUM SULFATE / D5W 1 GM/100 ML BAG IV SCH ×2 (10:14→12:00)
[2023-09-19] MEDS: BISMUTH SUBSALICYLATE 262 MG CHEW PO PRN ×2 (10:50→20:55)
[2023-09-19] MEDS: PANTOprazole 40 MG TAB PO SCH (13:19)
--- NOTE | 2023-09-19 16:31 | Hospitalist Progress Note ---
Date of Service September 19, 2023 Assessment & Plan (1) Ileus: Plan: SBO versus ileus secondary to gastroenteritis rule out C. difficile Kept on n.p.o. Appreciate surgery input and recommendation Has been moving bowels without any abdominal symptoms Will start clears oral She has been tolerating clears and will advance as tolerated Remains stable without abdominal distention and bowel has been moving Chronic diastolic heart failure (EF 60-65%, TTE 2022), patient on dry side PAF not on anticoagulation due to fall risk, patient NSR mild PVD on Pentoxifylline No signs and or symptoms of fluid overload and no chest pain or palpitation (2) Hypomagnesemia: Plan: Secondary to GI illness Supplemented and corrected Sodium level has been a little low at 129 on 09/18/2023 Magnesium supplemented and will recheck Hyponatremia Likely secondary to less intake Sodium level remains low at 129 May need to have sodium tablet under normal saline infusion (3) Gastroenteritis: Plan: Possible gastroenteritis on presentation With nausea and vomiting Has been feeling much better C. difficile toxin has been negative Doxycycline has been discontinued Started with Protonix (4) Cerebral palsy: Plan: hx cerebral palsy/Klinefelter syndrome, intellectual disability as per records Remains stable (5) Intellectual disability: (6) Diabetes mellitus, type 2: Plan: Basal bolus insulin adjusted for n.p.o. status, ISS BG goal 1 10-1 40 Blood sugar remains stable (7) Chronic obstructive pulmonary disease: Plan: No acute exacerbation Plan Other significant medical conditions remained stable DVT prophylaxis. SCDs Re: Thrombocytopenia, hematoma Possible hematoma left buttock on CT read, unclear if patient had recent trauma, hemoglobin currently at baseline chronic thrombocytopenia DNR as per patient prior directives as per discussion with patient guardian/caregiver Ms. Gracia Nichols. She requests updates from providers through [phone]. Admission and Anticipated Discharge Date Admission Date: September 16, 2023 Subjective 09/17/2023 The patient was seen and examined in medical telemetry unit She denies any abdominal symptoms and wants to eat Has had a good bowel movement and has strong bowel sound Will start oral feeding with clears orally 09/18/2023 The patient was seen and examined in medical telemetry unit She has been stable and denies any significant symptoms Has been eating and drinking reasonably as per the nursing staff 09/19/2023 The patient was seen and examined in the medical telemetry unit He has been complaining of some abdominal discomfort with nausea but no vomiting Has been tolerating diet and moving her bowels Review of Systems Review of Systems: All systems reviewed and are unremarkable except as noted below Physical Exam Physical Exam: Lying in bed without any acute distress Constitutional: + ill appearing and average body habitus Eyes: PERRL, conjunctivae normal, anicteric sclerae ENMT: external ear and nose normal, oropharynx normal Neck: trachea midline, no thyromegaly Respiratory: no respiratory distress Auscultation: + diminished lung sounds and + crackles (Minimal crackles at the bases) Cardiovascular: Rate/Rhythm: regular rate and regular rhythm; not tachycardic Heart Sounds: normal S1, normal S2 and + murmur Extremities: no edema Gastrointestinal (Abdomen): Inspection/Auscultation: normal bowel sounds; abdomen not distended Percussion/Palpation: abdomen soft; abdomen nontender Musculoskeletal: No acute arthritis involving any of the joint Neurologic: normal touch/pain/proprioception and moves all extremities; no focal motor deficits Lymphatic: no cervical or axillary lymphadenopathy Results & Data Results & Data Vital Signs (Past 12 Hours) Vital Signs Temp Pulse Pulse Resp BP Pulse Ox O2 Del Method 09/19/23 15:19 36.1 C L 70 16 76/46 L 91 Room Air 09/19/23 11:29 36.6 C 63 16 109/75 98 Room Air 09/19/23 08:00 61 09/19/23 07:53 36.7 C 74 16 101/65 96 Room Air Laboratory Results [facility] 09/19/23 06:04 Sodium 129 L Potassium 4.5 Chloride 95 L Carbon Dioxide 29 BUN 10 Creatinine 0.47 L Glucose 108 H Calcium 8.6 Medications Administered Current Inpatient Medications Acetaminophen (Acetaminophen 325 Mg Tab) 650 mg PO Q4H PRN PRN Reason: Pain or Fever Stop: 10/16/23 04:11 Last Admin: 09/19/23 07:48 Dose: 650 mg Artificial Tears (Artificial Tears) 1 drops OP BID [facility] Stop: 10/16/23 08:59 Last Admin: 09/19/23 07:50 Dose: 1 drops Bismuth Subsalicylate (Bismuth Subsalicylate 262 Mg Chew) 1 tab PO Q12 PRN PRN Reason: .UPSET STOMACH Stop: 10/16/23 03:26 Last Admin: 09/19/23 10:50 Dose: 1 tab Clonazepam (Clonazepam 0.5 Mg Tab) 0.5 mg PO TID@0800,1600,2000 [facility] Stop: 10/16/23 07:59 Last Admin: 09/19/23 07:48 Dose: 0.5 mg Dextrose (Dextrose 50% 50 Ml Syringe) 25 - 50 ml IV UD PRN; Protocol PRN Reason: Hypoglycemia Protocol Stop: 10/16/23 02:56 Finasteride (Finasteride 5 Mg Tab) 5 mg PO QAM [facility] Stop: 10/16/23 08:59 Last Admin: 09/19/23 07:49 Dose: 5 mg Gabapentin (Gabapentin 300 Mg Cap) 300 mg PO TID [facility] Stop: 10/16/23 08:59 Last Admin: 09/19/23 13:16 Dose: 300 mg Glucagon (Glucagon For Inj 1 Mg Vial) 1 mg SQ UD PRN; Protocol PRN Reason: Hypoglycemia Protocol Stop: 10/16/23 02:56 Glucose (Glucose 10 Tab/Tube) 4 - 8 tab PO UD PRN; Protocol PRN Reason: Hypoglycemia Treatment Stop: 10/16/23 02:56 Glucose (Glucose 40% Gel 15 Gm Tube) 15 - 30 gm PO UD PRN; Protocol PRN Reason: Hypoglycemia Protocol Stop: 10/16/23 02:56 Promethazine HCl 6.25 mg/ (Sodium Chloride) 50.25 mls @ 201 mls/hr IV Q6H PRN PRN Reason: Nausea And Vomiting Stop: 10/16/23 02:56 Last Infusion: 09/16/23 17:22 Dose: Infused Insulin Aspart (Insulin Aspart Per Unit Charge) 0 units SC ACHS [facility] Stop: 10/18/23 11:29 Last Admin: 09/19/23 13:19 Dose: 8 units Insulin Glargine (Lantus Per Unit Charge) 5 units SQ HS [facility] Stop: 10/16/23 20:59 Last Admin: 09/18/23 21:30 Dose: 5 units Metoprolol Tartrate (Metoprolol Tartrate 25 Mg Tab) 12.5 mg PO BID [facility] Stop: 10/16/23 08:59 Last Admin: 09/19/23 07:52 Dose: 12.5 mg Miscellaneous (Carbohydrates For Hypoglycemia ) 15 - 30 gm PO UD PRN PRN Reason: Hypoglycemia Protocol Stop: 10/16/23 02:56 Multivitamins (Multivitamin Tab) 1 tab PO DAILY [facility] Stop: 10/16/23 08:59 Last Admin: 09/19/23 07:49 Dose: 1 tab Oxcarbazepine (Oxcarbazepine 150 Mg Tablet) 300 mg PO BID [facility] Stop: 10/16/23 08:59 Last Admin: 09/19/23 07:49 Dose: 300 mg Pantoprazole Sodium (Pantoprazole 40 Mg Tab) 40 mg PO QAM [facility] Stop: 10/19/23 12:44 Last Admin: 09/19/23 13:19 Dose: 40 mg Quetiapine Fumarate (Quetiapine Fumarate 100 Mg Tablet) 100 mg PO TID [facility] Stop: 10/16/23 08:59 Last Admin: 09/19/23 13:16 Dose: 100 mg Sertraline HCl (Sertraline Hcl 50 Mg Tablet) 50 mg PO DAILY [facility] Stop: 10/16/23 08:59 Last Admin: 09/19/23 07:48 Dose: 50 mg Simvastatin (Simvastatin 40 Mg Tab) 40 mg PO QPM [facility] Stop: 10/16/23 20:59 Last Admin: 09/18/23 21:32 Dose: 40 mg Tamsulosin HCl (Tamsulosin Hcl 0.4 Mg Cap) 0.4 mg PO DAILY [facility] Stop: 10/16/23 08:59 Last Admin: 09/19/23 07:50 Dose: 0.4 mg Trazodone HCl (Trazodone Hcl 50 Mg Tab) 50 mg PO HS [facility] Stop: 10/16/23 20:59 Last Admin: 09/18/23 21:37 Dose: 50 mg Umeclidinium [place] (Umeclidinium [place] 62.5mcg/Blister 7 Puffs/Inhaler) 1 puffs INH DAILY [facility] Stop: 10/16/23 08:59 Last Admin: 09/19/23 07:50 Dose: 1 puffs
[2023-09-19] MEDS ORDERED: ONDANSETRON INJ 2 MG/ML 2 ML VIAL IV STA (17:02)
[2023-09-19] MEDS: D5W AND NSS 1,000 ML IV SCH (17:19)
[2023-09-19] MEDS: SODIUM CHLORIDE 0.9% 500 ML IV SCH (18:26)
[2023-09-19] MEDS: traZODone HCL 50 MG TAB PO SCH (20:54)
[2023-09-19] MEDS: LANTUS PER UNIT CHARGE SQ SCH (20:54)
[2023-09-19] MEDS: SIMVASTATIN 40 MG TAB PO SCH (20:55)
[2023-09-19 23:56] LABS: Appearance Urine Clear (Clear); Bilirubin Urine Negative (Negative); Blood Urine Negative (Negative); Color Urine Yellow; Glucose Urine UA Negative (Negative); Ketones Urine Negative (Negative); Leukocyte Esterase Urine Negative (Negative); Nitrite Urine Negative (Negative); Protein Urine Negative (Negative); Specific Gravity Urine 1.009 (1.000-1.030); Urobilinogen Urine Negative (Negative)
[2023-09-20] MEDS: AMPICILLIN/SULBACTAM SOD 3,000 MG in SODIUM CHLOR 0.9% MINI-B 100 ML IV SCH ×5 (01:26→23:38)
[2023-09-20] MEDS: SODIUM CHLORIDE 0.9% 500 ML IV SCH ×5 (02:00→21:20)
[2023-09-20] MEDS ORDERED: Nursing to Pharmacy Communication SCH (02:15)
[2023-09-20] MEDS: BISMUTH SUBSALICYLATE 262 MG CHEW PO PRN ×2 (06:33→21:23)
[2023-09-20 08:37] LABS: Potassium 4.4 mmol/L (3.5-5.1)
[2023-09-20 08:43] LABS: BUN Creatinine Ratio 23.7 (10-20); Creatinine Clr Calc Pharmacy 110.1 ml/min; Est GFR (African American) 119.7 ml/min; Est GFR (Non-African American) 103.3 ml/min
[2023-09-20] MEDS: INSULIN ASPART PER UNIT CHARGE SC SCH ×4 (09:05→21:12)
[2023-09-20] MEDS: D5W AND NSS 1,000 ML IV SCH ×2 (09:06→17:45)
[2023-09-20] MEDS: MULTIVITAMIN TAB PO SCH (09:07)
[2023-09-20] MEDS: GABAPENTIN 300 MG CAP PO SCH ×3 (09:07→21:11)
[2023-09-20] MEDS: TAMSULOSIN HCL 0.4 MG CAP PO SCH (09:08)
[2023-09-20] MEDS: QUEtiapine FUMARATE 100 MG TABLET PO SCH ×3 (09:08→21:10)
[2023-09-20] MEDS: OXcarbazepine 150 MG TABLET PO SCH ×2 (09:08→21:10)
[2023-09-20] MEDS: FINASTERIDE 5 MG TAB PO SCH (09:08)
[2023-09-20] MEDS: SERTRALINE HCL 50 MG TABLET PO SCH (09:09)
[2023-09-20] MEDS: PANTOprazole 40 MG TAB PO SCH (09:09)
[2023-09-20] MEDS: UMECLIDINIUM BROMIDE 62.5MCG/BLISTER 7 PUFFS/INHALER INH SCH (09:10)
[2023-09-20] MEDS: ARTIFICIAL TEARS OP SCH ×2 (09:10→21:11)
[2023-09-20] MEDS: clonazePAM 0.5 MG TAB PO SCH ×3 (09:11→21:10)
[2023-09-20] MEDS: METOPROLOL TARTRATE 25 MG TAB PO SCH ×2 (10:51→21:11)
--- NOTE | 2023-09-20 12:49 | Hospitalist Progress Note ---
Date of Service September 20, 2023 Assessment & Plan (1) Ileus: Plan: SBO versus ileus secondary to gastroenteritis rule out C. difficile Kept on n.p.o. Appreciate surgery input and recommendation Has been moving bowels without any abdominal symptoms Will start clears oral She has been tolerating clears and will advance as tolerated Remains stable without abdominal distention and bowel has been moving No abdominal distention, nauseous at times but no vomiting Has been tolerating diet Chronic diastolic heart failure (EF 60-65%, TTE 2022), patient on dry side PAF not on anticoagulation due to fall risk, patient NSR mild PVD on Pentoxifylline No signs and or symptoms of fluid overload and no chest pain or palpitation (2) Hypomagnesemia: Plan: Secondary to GI illness Supplemented and corrected Sodium level has been a little low at 129 on 09/18/2023 Magnesium supplemented and will recheck tomorrow Hyponatremia Likely secondary to less intake Sodium level remains low at 129 May need to have sodium tablet under normal saline infusion Sodium level has gone up to 132 (3) Gastroenteritis: Plan: Possible gastroenteritis on presentation With nausea and vomiting Has been feeling much better C. difficile toxin has been negative Doxycycline has been discontinued Started with Protonix-will increase Protonix to twice daily (4) Cerebral palsy: Plan: hx cerebral palsy/Klinefelter syndrome, intellectual disability as per records Remains stable (5) Intellectual disability: (6) Diabetes mellitus, type 2: Plan: Basal bolus insulin adjusted for n.p.o. status, ISS BG goal 1 10-1 40 Blood sugar remains stable (7) Chronic obstructive pulmonary disease: Plan: No acute exacerbation Plan Other significant medical conditions remained stable DVT prophylaxis. SCDs Re: Thrombocytopenia, hematoma Possible hematoma left buttock on CT read, unclear if patient had recent trauma, hemoglobin currently at baseline chronic thrombocytopenia DNR as per patient prior directives as per discussion with patient guardian/caregiver Ms. Gracia Nichols. She requests updates from providers through [phone]. Discussed with the care provider will be coming tomorrow to have a [id number] discussion Admission and Anticipated Discharge Date Admission Date: September 16, 2023 Subjective 09/17/2023 The patient was seen and examined in medical telemetry unit She denies any abdominal symptoms and wants to eat Has had a good bowel movement and has strong bowel sound Will start oral feeding with clears orally 09/18/2023 The patient was seen and examined in medical telemetry unit She has been stable and denies any significant symptoms Has been eating and drinking reasonably as per the nursing staff 09/19/2023 The patient was seen and examined in the medical telemetry unit He has been complaining of some abdominal discomfort with nausea but no vomiting Has been tolerating diet and moving her bowels 09/20/2023 The patient was seen and examined in medical telemetry unit She has been complaining of some throat/epigastric discomfort with belching at times Not in any apparent distress Review of Systems Review of Systems: Unobtainable due to cognitive status Physical Exam Physical Exam: Lying in bed without any acute distress Constitutional: + ill appearing and average body habitus Eyes: PERRL, conjunctivae normal, anicteric sclerae ENMT: external ear and nose normal, oropharynx normal Neck: trachea midline, no thyromegaly Respiratory: no respiratory distress Auscultation: + diminished lung sounds and + crackles (Minimal crackles at the bases) Cardiovascular: Rate/Rhythm: regular rate and regular rhythm; not tachycardic Heart Sounds: normal S1, normal S2 and + murmur Extremities: no edema Gastrointestinal (Abdomen): Inspection/Auscultation: normal bowel sounds; abdomen not distended Percussion/Palpation: abdomen soft; abdomen nontender Musculoskeletal: No acute arthritis involving any of the joint Neurologic: normal touch/pain/proprioception and moves all extremities; no focal motor deficits Lymphatic: no cervical or axillary lymphadenopathy Results & Data Results & Data Vital Signs (Past 12 Hours) Vital Signs Temp Pulse Resp BP BP Pulse Ox O2 Del Method 09/20/23 07:59 36.8 C 75 20 101/57 L 95 Room Air 09/20/23 03:13 36.8 C 66 18 93/54 L 93 Room Air 09/20/23 01:47 Room Air Laboratory Results [facility] 09/20/23 07:44 Sodium 132 L Potassium 4.4 Chloride 100 Carbon Dioxide 27 BUN 14 Creatinine 0.59 L Glucose 160 H Calcium 8.0 L Urine 09/19/23 Range/Units 23:36 Urine Color Yellow Urine Appearance Clear (Clear) Urine pH 6.0 (4.5-7.5) Ur Specific [place] 1.009 (1.000-1.030) Urine Protein Negative (Negative) Urine Glucose (UA) Negative (Negative) Medications Administered Current Inpatient Medications Acetaminophen (Acetaminophen 325 Mg Tab) 650 mg PO Q4H PRN PRN Reason: Pain or Fever Stop: 10/16/23 04:11 Last Admin: 09/19/23 07:48 Dose: 650 mg Artificial Tears (Artificial Tears) 1 drops OP BID SEN Stop: 10/16/23 08:59 Last Admin: 09/20/23 09:10 Dose: 1 drops Bismuth Subsalicylate (Bismuth Subsalicylate 262 Mg Chew) 1 tab PO Q12 PRN PRN Reason: .UPSET STOMACH Stop: 10/16/23 03:26 Last Admin: 09/20/23 06:33 Dose: 1 tab Clonazepam (Clonazepam 0.5 Mg Tab) 0.5 mg PO TID@0800,1600,2000 [facility] Stop: 10/16/23 07:59 Last Admin: 09/20/23 09:11 Dose: 0.5 mg Dextrose (Dextrose 50% 50 Ml Syringe) 25 - 50 ml IV UD PRN; Protocol PRN Reason: Hypoglycemia Protocol Stop: 10/16/23 02:56 Finasteride (Finasteride 5 Mg Tab) 5 mg PO QAM [facility] Stop: 10/16/23 08:59 Last Admin: 09/20/23 09:08 Dose: 5 mg Gabapentin (Gabapentin 300 Mg Cap) 300 mg PO TID [facility] Stop: 10/16/23 08:59 Last Admin: 09/20/23 09:07 Dose: 300 mg Glucagon (Glucagon For Inj 1 Mg Vial) 1 mg SQ UD PRN; Protocol PRN Reason: Hypoglycemia Protocol Stop: 10/16/23 02:56 Glucose (Glucose 10 Tab/Tube) 4 - 8 tab PO UD PRN; Protocol PRN Reason: Hypoglycemia Treatment Stop: 10/16/23 02:56 Glucose (Glucose 40% Gel 15 Gm Tube) 15 - 30 gm PO UD PRN; Protocol PRN Reason: Hypoglycemia Protocol Stop: 10/16/23 02:56 Dextrose/Sodium Chloride (D5w And Nss) 1,000 mls @ 80 mls/hr IV .[id number] [facility] Stop: 10/19/23 16:59 Last Admin: 09/20/23 09:06 Dose: 80 mls/hr Sodium Chloride (Nss) 500 mls @ 80 mls/hr IV .[id number] [facility] Stop: 10/19/23 17:14 Last Admin: 09/20/23 11:38 Dose: 80 mls/hr Ampicillin Sodium/Sulbactam Sodium 3,000 mg/ Sodium Chloride 100 mls @ 200 mls/hr IV Q6H SEN Stop: 09/26/23 23:29 Last Admin: 09/20/23 11:44 Dose: 200 mls/hr Insulin Aspart (Insulin Aspart Per Unit Charge) 0 units SC ACHS SEN Stop: 10/18/23 11:29 Last Admin: 09/20/23 09:05 Dose: 4 units Insulin Glargine (Lantus Per Unit Charge) 5 units SQ HS [facility] Stop: 10/16/23 20:59 Last Admin: 09/19/23 20:54 Dose: 5 units Metoprolol Tartrate (Metoprolol Tartrate 25 Mg Tab) 12.5 mg PO BID SEN Stop: 10/16/23 08:59 Last Admin: 09/20/23 10:51 Dose: Not Given Miscellaneous (Carbohydrates For Hypoglycemia ) 15 - 30 gm PO UD PRN PRN Reason: Hypoglycemia Protocol Stop: 10/16/23 02:56 Multivitamins (Multivitamin Tab) 1 tab PO DAILY SEN Stop: 10/16/23 08:59 Last Admin: 09/20/23 09:07 Dose: 1 tab Oxcarbazepine (Oxcarbazepine 150 Mg Tablet) 300 mg PO BID SEN Stop: 10/16/23 08:59 Last Admin: 09/20/23 09:08 Dose: 300 mg Pantoprazole Sodium (Pantoprazole 40 Mg Tab) 40 mg PO QAM [facility] Stop: 10/19/23 12:44 Last Admin: 09/20/23 09:09 Dose: 40 mg Quetiapine Fumarate (Quetiapine Fumarate 100 Mg Tablet) 100 mg PO TID [facility] Stop: 10/16/23 08:59 Last Admin: 09/20/23 09:08 Dose: 100 mg Sertraline HCl (Sertraline Hcl 50 Mg Tablet) 50 mg PO DAILY SEN Stop: 10/16/23 08:59 Last Admin: 09/20/23 09:09 Dose: 50 mg Simvastatin (Simvastatin 40 Mg Tab) 40 mg PO QPM [facility] Stop: 10/16/23 20:59 Last Admin: 09/19/23 20:55 Dose: 40 mg Tamsulosin HCl (Tamsulosin Hcl 0.4 Mg Cap) 0.4 mg PO DAILY SEN Stop: 10/16/23 08:59 Last Admin: 09/20/23 09:08 Dose: 0.4 mg Trazodone HCl (Trazodone Hcl 50 Mg Tab) 50 mg PO HS [facility] Stop: 10/16/23 20:59 Last Admin: 09/19/23 20:54 Dose: 50 mg Umeclidinium [place] (Umeclidinium [place] 62.5mcg/Blister 7 Puffs/Inhaler) 1 puffs INH DAILY SEN Stop: 10/16/23 08:59 Last Admin: 09/20/23 09:10 Dose: 1 puffs
[2023-09-20] MEDS: ALUMINUM/MAGNESIUM SUSP 30 ML UDC PO PRN (16:13)
[2023-09-20] MEDS: SIMVASTATIN 40 MG TAB PO SCH (21:10)
[2023-09-20] MEDS: traZODone HCL 50 MG TAB PO SCH (21:10)
[2023-09-20] MEDS: LANTUS PER UNIT CHARGE SQ SCH (21:12)
[2023-09-21] MEDS: AMPICILLIN/SULBACTAM SOD 3,000 MG in SODIUM CHLOR 0.9% MINI-B 100 ML IV SCH ×3 (05:42→17:58)
[2023-09-21 06:52] LABS: BUN Creatinine Ratio 20.9 (10-20); Calcium 7.7 mg/dl (8.6-10.3); Creatinine Clr Calc Pharmacy 151.6 ml/min; Est GFR (African American) 136.4 ml/min; Est GFR (Non-African American) 117.6 ml/min; Magnesium 1.6 mg/dl (1.7-2.4); Potassium 4.4 mmol/L (3.5-5.1)
[2023-09-21] MEDS: SERTRALINE HCL 50 MG TABLET PO SCH (08:55)
[2023-09-21] MEDS: clonazePAM 0.5 MG TAB PO SCH ×3 (08:55→21:47)
[2023-09-21] MEDS: TAMSULOSIN HCL 0.4 MG CAP PO SCH (08:56)
[2023-09-21] MEDS: GABAPENTIN 300 MG CAP PO SCH ×3 (08:56→21:49)
[2023-09-21] MEDS: FINASTERIDE 5 MG TAB PO SCH (08:59)
[2023-09-21] MEDS: UMECLIDINIUM BROMIDE 62.5MCG/BLISTER 7 PUFFS/INHALER INH SCH (08:59)
[2023-09-21] MEDS: OXcarbazepine 150 MG TABLET PO SCH ×2 (08:59→21:49)
[2023-09-21] MEDS: QUEtiapine FUMARATE 100 MG TABLET PO SCH ×3 (08:59→21:48)
[2023-09-21] MEDS: PANTOprazole 40 MG TAB PO SCH (08:59)
[2023-09-21] MEDS: ARTIFICIAL TEARS OP SCH ×2 (09:01→21:49)
[2023-09-21] MEDS: MULTIVITAMIN TAB PO SCH (09:01)
[2023-09-21] MEDS: METOPROLOL TARTRATE 25 MG TAB PO SCH (09:02)
[2023-09-21] MEDS: INSULIN ASPART PER UNIT CHARGE SC SCH ×4 (09:02→21:47)
[2023-09-21] MEDS: ALUMINUM/MAGNESIUM SUSP 30 ML UDC PO PRN (11:25)
--- NOTE | 2023-09-21 14:02 | Hospitalist Progress Note ---
Date of Service September 21, 2023 Assessment & Plan (1) Ileus: Plan: SBO versus ileus secondary to gastroenteritis rule out C. difficile Kept on n.p.o. Appreciate surgery input and recommendation Has been moving bowels without any abdominal symptoms Will start clears oral She has been tolerating clears and will advance as tolerated Remains stable without abdominal distention and bowel has been moving No abdominal distention, nauseous at times but no vomiting Has been tolerating diet No abdominal distention, may have minimal discomfort and has been moving bowels Always asking for help Looks that he is in acute distress This is observed and confirmed by the caregiver that that is his normal No additional measures to be taken until the condition really gets worse Chronic diastolic heart failure (EF 60-65%, TTE 2022), patient on dry side PAF not on anticoagulation due to fall risk, patient NSR mild PVD on Pentoxifylline No signs and or symptoms of fluid overload and no chest pain or palpitation (2) Hypomagnesemia: Plan: Secondary to GI illness Supplemented and corrected Sodium level has been a little low at 129 on 09/18/2023 Magnesium supplemented and will recheck tomorrow Hyponatremia Likely secondary to less intake Sodium level remains low at 129 May need to have sodium tablet under normal saline infusion Sodium level has gone up to 132 (3) Gastroenteritis: Plan: Possible gastroenteritis on presentation With nausea and vomiting Has been feeling much better C. difficile toxin has been negative Doxycycline has been discontinued Started with Protonix-will increase Protonix to twice daily Will discontinue IV Unasyn might be causing stomach upset (4) Cerebral palsy: Plan: hx cerebral palsy/Klinefelter syndrome, intellectual disability as per records Remains stable (5) Intellectual disability: (6) Diabetes mellitus, type 2: Plan: Basal bolus insulin adjusted for n.p.o. status, ISS BG goal 1 10-1 40 Blood sugar remains stable (7) Chronic obstructive pulmonary disease: Plan: No acute exacerbation Plan Other significant medical conditions remained stable DVT prophylaxis. SCDs Re: Thrombocytopenia, hematoma Possible hematoma left buttock on CT read, unclear if patient had recent trauma, hemoglobin currently at baseline chronic thrombocytopenia DNR as per patient prior directives as per discussion with patient guardian/caregiver Ms. Gracia Nichols. She requests updates from providers through [phone]. Discussed with the care provider will be coming tomorrow to have a [id number] discussion Discussed with the caregiver Admission and Anticipated Discharge Date Admission Date: September 16, 2023 Subjective 09/17/2023 The patient was seen and examined in medical telemetry unit She denies any abdominal symptoms and wants to eat Has had a good bowel movement and has strong bowel sound Will start oral feeding with clears orally 09/18/2023 The patient was seen and examined in medical telemetry unit She has been stable and denies any significant symptoms Has been eating and drinking reasonably as per the nursing staff 09/19/2023 The patient was seen and examined in the medical telemetry unit He has been complaining of some abdominal discomfort with nausea but no vomiting Has been tolerating diet and moving her bowels 09/20/2023 The patient was seen and examined in medical telemetry unit She has been complaining of some throat/epigastric discomfort with belching at times Not in any apparent distress 09/21/2023 The patient was seen and examined in medical telemetry unit He was seen in presence of the caregiver He seems to be at his baseline as per the caregiver Denies any acute distress Review of Systems Review of Systems: All systems reviewed and are unremarkable except as noted below Physical Exam Physical Exam: Lying in bed without any acute distress Constitutional: + ill appearing and average body habitus Eyes: PERRL, conjunctivae normal, anicteric sclerae ENMT: external ear and nose normal, oropharynx normal Neck: trachea midline, no thyromegaly Respiratory: no respiratory distress Auscultation: + diminished lung sounds and + crackles (Minimal crackles at the bases) Cardiovascular: Rate/Rhythm: regular rate and regular rhythm; not tachycardic Heart Sounds: normal S1, normal S2 and + murmur Extremities: no edema Gastrointestinal (Abdomen): Inspection/Auscultation: normal bowel sounds; abdomen not distended Percussion/Palpation: abdomen soft; abdomen nontender Neurologic: normal touch/pain/proprioception and moves all extremities; no focal motor deficits Lymphatic: no cervical or axillary lymphadenopathy Results & Data Results & Data Vital Signs (Past 12 Hours) Vital Signs Temp Pulse Pulse Resp BP BP Pulse Ox 09/21/23 12:27 71 09/21/23 12:21 36.9 C 65 18 129/75 96 09/21/23 07:14 36.9 C 74 18 104/60 96 09/21/23 03:32 67 09/21/23 03:21 36.6 C 67 18 103/63 94 O2 Del Method 09/21/23 12:27 09/21/23 12:21 Room Air 09/21/23 07:14 Room Air 09/21/23 03:32 09/21/23 03:21 Room Air Laboratory Results [facility] 09/21/23 06:08 Sodium 132 L Potassium 4.4 Chloride 102 Carbon Dioxide 29 BUN 9 Creatinine 0.43 L Glucose 62 L Calcium 7.7 L Medications Administered Current Inpatient Medications Acetaminophen (Acetaminophen 325 Mg Tab) 650 mg PO Q4H PRN PRN Reason: Pain or Fever Stop: 10/16/23 04:11 Last Admin: 09/19/23 07:48 Dose: 650 mg Al Hydrox/Mg Hydrox/Simethicone (Aluminum/Magnesium Susp 30 Ml Udc) 15 ml PO Q6H PRN PRN Reason: Dyspepsia Stop: 10/20/23 15:42 Last Admin: 09/21/23 11:25 Dose: 15 ml Artificial Tears (Artificial Tears) 1 drops OP BID SEN Stop: 10/16/23 08:59 Last Admin: 09/21/23 09:01 Dose: 1 drops Bismuth Subsalicylate (Bismuth Subsalicylate 262 Mg Chew) 1 tab PO Q12 PRN PRN Reason: .UPSET STOMACH Stop: 10/16/23 03:26 Last Admin: 09/20/23 21:23 Dose: 1 tab Clonazepam (Clonazepam 0.5 Mg Tab) 0.5 mg PO TID@0800,1600,2000 [facility] Stop: 10/16/23 07:59 Last Admin: 09/21/23 08:55 Dose: 0.5 mg Dextrose (Dextrose 50% 50 Ml Syringe) 25 - 50 ml IV UD PRN; Protocol PRN Reason: Hypoglycemia Protocol Stop: 10/16/23 02:56 Finasteride (Finasteride 5 Mg Tab) 5 mg PO QAM SEN Stop: 10/16/23 08:59 Last Admin: 09/21/23 08:59 Dose: 5 mg Gabapentin (Gabapentin 300 Mg Cap) 300 mg PO TID SEN Stop: 10/16/23 08:59 Last Admin: 09/21/23 13:11 Dose: 300 mg Glucagon (Glucagon For Inj 1 Mg Vial) 1 mg SQ UD PRN; Protocol PRN Reason: Hypoglycemia Protocol Stop: 10/16/23 02:56 Glucose (Glucose 10 Tab/Tube) 4 - 8 tab PO UD PRN; Protocol PRN Reason: Hypoglycemia Treatment Stop: 10/16/23 02:56 Glucose (Glucose 40% Gel 15 Gm Tube) 15 - 30 gm PO UD PRN; Protocol PRN Reason: Hypoglycemia Protocol Stop: 10/16/23 02:56 Ampicillin Sodium/Sulbactam Sodium 3,000 mg/ Sodium Chloride 100 mls @ 200 mls/hr IV Q6H SEN Stop: 09/26/23 23:29 Last Infusion: 09/21/23 12:23 Dose: Infused Insulin Aspart (Insulin Aspart Per Unit Charge) 0 units SC ACHS SEN Stop: 10/18/23 11:29 Last Admin: 09/21/23 13:10 Dose: 6 units Insulin Glargine (Lantus Per Unit Charge) 5 units SQ HS SEN Stop: 10/16/23 20:59 Last Admin: 09/20/23 21:12 Dose: 5 units Metoprolol Tartrate (Metoprolol Tartrate 25 Mg Tab) 12.5 mg PO BID SEN Stop: 10/16/23 08:59 Last Admin: 09/21/23 09:02 Dose: Not Given Miscellaneous (Carbohydrates For Hypoglycemia ) 15 - 30 gm PO UD PRN PRN Reason: Hypoglycemia Protocol Stop: 10/16/23 02:56 Multivitamins (Multivitamin Tab) 1 tab PO DAILY SEN Stop: 10/16/23 08:59 Last Admin: 09/21/23 09:01 Dose: 1 tab Oxcarbazepine (Oxcarbazepine 150 Mg Tablet) 300 mg PO BID SEN Stop: 10/16/23 08:59 Last Admin: 09/21/23 08:59 Dose: 300 mg Pantoprazole Sodium (Pantoprazole 40 Mg Tab) 40 mg PO QAM SEN Stop: 10/19/23 12:44 Last Admin: 09/21/23 08:59 Dose: 40 mg Quetiapine Fumarate (Quetiapine Fumarate 100 Mg Tablet) 100 mg PO TID SEN Stop: 10/16/23 08:59 Last Admin: 09/21/23 13:11 Dose: 100 mg Sertraline HCl (Sertraline Hcl 50 Mg Tablet) 50 mg PO DAILY SEN Stop: 10/16/23 08:59 Last Admin: 09/21/23 08:55 Dose: 50 mg Simvastatin (Simvastatin 40 Mg Tab) 40 mg PO QPM SEN Stop: 10/16/23 20:59 Last Admin: 09/20/23 21:10 Dose: 40 mg Tamsulosin HCl (Tamsulosin Hcl 0.4 Mg Cap) 0.4 mg PO DAILY SEN Stop: 10/16/23 08:59 Last Admin: 09/21/23 08:56 Dose: 0.4 mg Trazodone HCl (Trazodone Hcl 50 Mg Tab) 50 mg PO HS SEN Stop: 10/16/23 20:59 Last Admin: 09/20/23 21:10 Dose: 50 mg Umeclidinium [place] (Umeclidinium [place] 62.5mcg/Blister 7 Puffs/Inhaler) 1 puffs INH DAILY SEN Stop: 10/16/23 08:59 Last Admin: 09/21/23 08:59 Dose: 1 puffs
[2023-09-21] MEDS: CARBOHYDRATES FOR HYPOGLYCEMIA PO PRN (17:32)
[2023-09-21] MEDS: DEXTROSE 50% 50 ML SYRINGE IV PRN (17:53)
[2023-09-21] MEDS: traZODone HCL 50 MG TAB PO SCH (21:47)
[2023-09-21] MEDS: LANTUS PER UNIT CHARGE SQ SCH (21:47)
[2023-09-21] MEDS: SIMVASTATIN 40 MG TAB PO SCH (21:48)
[2023-09-22] MEDS: AMPICILLIN/SULBACTAM SOD 3,000 MG in SODIUM CHLOR 0.9% MINI-B 100 ML IV SCH ×3 (00:05→11:57)
[2023-09-22 07:20] LABS: Basophils # (auto) 0.03 K/uL (0.00-0.20); Basophils % (auto) 0.6 %; Eosinophils # (auto) 0.07 K/uL (0.00-0.50); Eosinophils % (auto) 1.5 %; Hematocrit (blood only) 33.3 % (42.0-52.0); Hemoglobin 10.5 g/dl (14.0-18.0); Immature Granulocytes # (auto) 0.01 K/uL (0.01-0.20); Immature Granulocytes % (auto) 0.2 %; Lymphocytes # (auto) 0.75 K/uL (1.20-3.40); Lymphocytes % (auto) 15.8 %; Mean Corpuscular Hemoglobin 32.5 pg (25.0-34.0); Mean Corpuscular Hgb Conc 31.5 g/dL (32.0-36.0); Mean Corpuscular Volume 103.1 fL (80.0-100.0); Mean Platelet Volume 10.3 fL (9.4-12.4); Monocytes # (auto) 0.42 K/uL (0.11-0.59); Monocytes % (auto) 8.8 %; Neutrophils # (auto) 3.48 K/uL (1.40-6.50); Neutrophils % (auto) 73.1 %; Platelet Count 130 K/uL (130-400); RDW Coefficient of Variation 13.5 % (11.5-14.5); RDW Standard Deviation 51.4 fL (36.4-46.3); Red Blood Count 3.23 M/uL (4.70-6.10); White Blood Count 4.76 K/ul (4.8-10.8)
[2023-09-22 07:29] LABS: BUN Creatinine Ratio 13.5 (10-20); Calcium 7.9 mg/dl (8.6-10.3); Creatinine Clr Calc Pharmacy 125.3 ml/min; Est GFR (African American) 126.1 ml/min; Est GFR (Non-African American) 108.8 ml/min; Potassium 4.6 mmol/L (3.5-5.1)
[2023-09-22] MEDS: QUEtiapine FUMARATE 100 MG TABLET PO SCH ×3 (08:42→21:07)
[2023-09-22] MEDS: OXcarbazepine 150 MG TABLET PO SCH ×2 (08:42→21:08)
[2023-09-22] MEDS: GABAPENTIN 300 MG CAP PO SCH ×3 (08:42→21:08)
[2023-09-22] MEDS: clonazePAM 0.5 MG TAB PO SCH ×3 (08:42→21:07)
[2023-09-22] MEDS: TAMSULOSIN HCL 0.4 MG CAP PO SCH (08:43)
[2023-09-22] MEDS: FINASTERIDE 5 MG TAB PO SCH (08:43)
[2023-09-22] MEDS: SERTRALINE HCL 50 MG TABLET PO SCH (08:43)
[2023-09-22] MEDS: ARTIFICIAL TEARS OP SCH ×2 (08:43→21:07)
[2023-09-22] MEDS: MULTIVITAMIN TAB PO SCH (08:43)
[2023-09-22] MEDS: PANTOprazole 40 MG TAB PO SCH (08:43)
[2023-09-22] MEDS: UMECLIDINIUM BROMIDE 62.5MCG/BLISTER 7 PUFFS/INHALER INH SCH (08:44)
[2023-09-22] MEDS: INSULIN ASPART PER UNIT CHARGE SC SCH ×4 (08:49→21:06)
[2023-09-22] MEDS: BISMUTH SUBSALICYLATE 262 MG CHEW PO PRN (09:58)
[2023-09-22] MEDS: CLOTRIMAZOLE 1% CR 15 GM TUBE EXT SCH ×2 (13:32→21:07)
--- NOTE | 2023-09-22 15:41 | Hospitalist Progress Note ---
Date of Service September 22, 2023 Assessment & Plan (1) Ileus: Plan: SBO versus ileus secondary to gastroenteritis rule out C. difficile Kept on n.p.o. Appreciate surgery input and recommendation Has been moving bowels without any abdominal symptoms Will start clears oral She has been tolerating clears and will advance as tolerated Remains stable without abdominal distention and bowel has been moving No abdominal distention, nauseous at times but no vomiting Has been tolerating diet No abdominal distention, may have minimal discomfort and has been moving bowels Has been tolerating diet with some discomfort without any nausea and or vomiting Always asking for help Looks that he is in acute distress This is observed and confirmed by the caregiver that that is his normal No additional measures to be taken until the condition really gets worse This has been her baseline as per the caregiver Chronic diastolic heart failure (EF 60-65%, TTE 2022), patient on dry side PAF not on anticoagulation due to fall risk, patient NSR mild PVD on Pentoxifylline No signs and or symptoms of fluid overload and no chest pain or palpitation (2) Hypomagnesemia: Plan: Secondary to GI illness Supplemented and corrected Sodium level has been a little low at 129 on 09/18/2023 Magnesium supplemented and will recheck tomorrow Magnesium level went up to 1.6 Hyponatremia Likely secondary to less intake Sodium level remains low at 129 May need to have sodium tablet under normal saline infusion Sodium level has gone up to 132 Sodium level has been normalized as of 09/22/2023 (3) Gastroenteritis: Plan: Possible gastroenteritis on presentation With nausea and vomiting Has been feeling much better C. difficile toxin has been negative Doxycycline has been discontinued Started with Protonix-will increase Protonix to twice daily Will discontinue IV Unasyn might be causing stomach upset (4) Cerebral palsy: Plan: hx cerebral palsy/Klinefelter syndrome, intellectual disability as per records Remains stable (5) Intellectual disability: (6) Diabetes mellitus, type 2: Plan: Basal bolus insulin adjusted for n.p.o. status, ISS BG goal 1 10-1 40 Blood sugar remains stable (7) Chronic obstructive pulmonary disease: Plan: No acute exacerbation Plan Other significant medical conditions remained stable DVT prophylaxis. SCDs Re: Thrombocytopenia, hematoma Possible hematoma left buttock on CT read, unclear if patient had recent trauma, hemoglobin currently at baseline chronic thrombocytopenia DNR as per patient prior directives as per discussion with patient guardian/caregiver Ms. Gracia Nichols. She requests updates from providers through [phone]. Discussed with the care provider will be coming tomorrow to have a [id number] discussion Discussed with the caregiver Admission and Anticipated Discharge Date Admission Date: September 16, 2023 Subjective 09/17/2023 The patient was seen and examined in medical telemetry unit She denies any abdominal symptoms and wants to eat Has had a good bowel movement and has strong bowel sound Will start oral feeding with clears orally 09/18/2023 The patient was seen and examined in medical telemetry unit She has been stable and denies any significant symptoms Has been eating and drinking reasonably as per the nursing staff 09/19/2023 The patient was seen and examined in the medical telemetry unit He has been complaining of some abdominal discomfort with nausea but no vomiting Has been tolerating diet and moving her bowels 09/20/2023 The patient was seen and examined in medical telemetry unit She has been complaining of some throat/epigastric discomfort with belching at times Not in any apparent distress 09/21/2023 The patient was seen and examined in medical telemetry unit He was seen in presence of the caregiver He seems to be at his baseline as per the caregiver Denies any acute distress 09/22/2023 The patient was seen and examined in medical telemetry unit She has been stable and complains to have nonspecific symptoms Remains at her baseline as per the caregiver Review of Systems Review of Systems: Unobtainable due to cognitive status Physical Exam Physical Exam: Lying in bed without any acute distress Constitutional: + ill appearing and average body habitus Eyes: PERRL, conjunctivae normal, anicteric sclerae ENMT: external ear and nose normal, oropharynx normal Neck: trachea midline, no thyromegaly Respiratory: no respiratory distress Auscultation: + diminished lung sounds and + crackles (Minimal crackles at the bases) Cardiovascular: Rate/Rhythm: regular rate and regular rhythm; not tachycardic Heart Sounds: normal S1, normal S2 and + murmur Extremities: no edema Gastrointestinal (Abdomen): Inspection/Auscultation: normal bowel sounds; abdomen not distended Percussion/Palpation: abdomen soft; abdomen nontender Neurologic: normal touch/pain/proprioception and moves all extremities; no focal motor deficits Lymphatic: no cervical or axillary lymphadenopathy Results & Data Results & Data Vital Signs (Past 12 Hours) Vital Signs Temp Pulse Pulse Resp BP Pulse Ox O2 Del Method 09/22/23 12:13 36.7 C 63 20 144/76 H 97 Room Air 09/22/23 08:20 36.9 C 70 18 122/69 93 Room Air 09/22/23 07:48 Room Air 09/22/23 07:39 78 09/22/23 04:28 36.9 C 73 16 106/65 93 Room Air Laboratory Results Short CBC 09/22/23 Range/Units 06:45 WBC 4.76 L (4.8-10.8) K/ul Hgb 10.5 L (14.0-18.0) g/dl Hct 33.3 L (42.0-52.0) % Plt Count 130 (130-400) K/uL BMP 09/22/23 06:45 Sodium 137 Potassium 4.6 Chloride 107 Carbon Dioxide 28 BUN 7 Creatinine 0.52 L Glucose 64 L Calcium 7.9 L Medications Administered Current Inpatient Medications Acetaminophen (Acetaminophen 325 Mg Tab) 650 mg PO Q4H PRN PRN Reason: Pain or Fever Stop: 10/16/23 04:11 Last Admin: 09/19/23 07:48 Dose: 650 mg Al Hydrox/Mg Hydrox/Simethicone (Aluminum/Magnesium Susp 30 Ml Udc) 15 ml PO Q6H PRN PRN Reason: Dyspepsia Stop: 10/20/23 15:42 Last Admin: 09/21/23 11:25 Dose: 15 ml Artificial Tears (Artificial Tears) 1 drops OP BID [facility] Stop: 10/16/23 08:59 Last Admin: 09/22/23 08:43 Dose: 1 drops Bismuth Subsalicylate (Bismuth Subsalicylate 262 Mg Chew) 1 tab PO Q12 PRN PRN Reason: .UPSET STOMACH Stop: 10/16/23 03:26 Last Admin: 09/22/23 09:58 Dose: 1 tab Clonazepam (Clonazepam 0.5 Mg Tab) 0.5 mg PO TID@0800,1600,2000 [facility] Stop: 10/16/23 07:59 Last Admin: 09/22/23 08:42 Dose: 0.5 mg Clotrimazole (Clotrimazole 1% Cr 15 Gm Tube) 1 appln EXT BID [facility] Stop: 10/22/23 12:29 Last Admin: 09/22/23 13:32 Dose: 1 appln Dextrose (Dextrose 50% 50 Ml Syringe) 25 - 50 ml IV UD PRN; Protocol PRN Reason: Hypoglycemia Protocol Stop: 10/16/23 02:56 Last Admin: 09/21/23 17:53 Dose: 25 ml Finasteride (Finasteride 5 Mg Tab) 5 mg PO QAM SEN Stop: 10/16/23 08:59 Last Admin: 09/22/23 08:43 Dose: 5 mg Gabapentin (Gabapentin 300 Mg Cap) 300 mg PO TID SEN Stop: 10/16/23 08:59 Last Admin: 09/22/23 13:07 Dose: 300 mg Glucagon (Glucagon For Inj 1 Mg Vial) 1 mg SQ UD PRN; Protocol PRN Reason: Hypoglycemia Protocol Stop: 10/16/23 02:56 Glucose (Glucose 10 Tab/Tube) 4 - 8 tab PO UD PRN; Protocol PRN Reason: Hypoglycemia Treatment Stop: 10/16/23 02:56 Glucose (Glucose 40% Gel 15 Gm Tube) 15 - 30 gm PO UD PRN; Protocol PRN Reason: Hypoglycemia Protocol Stop: 10/16/23 02:56 Ampicillin Sodium/Sulbactam Sodium 3,000 mg/ Sodium Chloride 100 mls @ 200 mls/hr IV Q6H SEN Stop: 09/26/23 23:29 Last Infusion: 09/22/23 12:36 Dose: Infused Insulin Aspart (Insulin Aspart Per Unit Charge) 0 units SC ACHS SEN Stop: 10/18/23 11:29 Last Admin: 09/22/23 13:05 Dose: 4 units Insulin Glargine (Lantus Per Unit Charge) 5 units SQ HS [facility] Stop: 10/16/23 20:59 Last Admin: 09/21/23 21:47 Dose: 5 units Metoprolol Tartrate (Metoprolol Tartrate 25 Mg Tab) 12.5 mg PO BID [facility] Stop: 10/16/23 08:59 Last Admin: 09/21/23 09:02 Dose: Not Given Miscellaneous (Carbohydrates For Hypoglycemia ) 15 - 30 gm PO UD PRN PRN Reason: Hypoglycemia Protocol Stop: 10/16/23 02:56 Last Admin: 09/21/23 17:32 Dose: 15 gm Multivitamins (Multivitamin Tab) 1 tab PO DAILY [facility]EN Stop: 10/16/23 08:59 Last Admin: 09/22/23 08:43 Dose: 1 tab Oxcarbazepine (Oxcarbazepine 150 Mg Tablet) 300 mg PO BID [facility] Stop: 10/16/23 08:59 Last Admin: 09/22/23 08:42 Dose: 300 mg Pantoprazole Sodium (Pantoprazole 40 Mg Tab) 40 mg PO QAM SEN Stop: 10/19/23 12:44 Last Admin: 09/22/23 08:43 Dose: 40 mg Quetiapine Fumarate (Quetiapine Fumarate 100 Mg Tablet) 100 mg PO TID SEN Stop: 10/16/23 08:59 Last Admin: 09/22/23 13:07 Dose: 100 mg Sertraline HCl (Sertraline Hcl 50 Mg Tablet) 50 mg PO DAILY [facility]EN Stop: 10/16/23 08:59 Last Admin: 09/22/23 08:43 Dose: 50 mg Simvastatin (Simvastatin 40 Mg Tab) 40 mg PO QPM [facility]EN Stop: 10/16/23 20:59 Last Admin: 09/21/23 21:48 Dose: 40 mg Tamsulosin HCl (Tamsulosin Hcl 0.4 Mg Cap) 0.4 mg PO DAILY [facility]EN Stop: 10/16/23 08:59 Last Admin: 09/22/23 08:43 Dose: 0.4 mg Trazodone HCl (Trazodone Hcl 50 Mg Tab) 50 mg PO HS [facility]EN Stop: 10/16/23 20:59 Last Admin: 09/21/23 21:47 Dose: 50 mg Umeclidinium [place] (Umeclidinium [place] 62.5mcg/Blister 7 Puffs/Inhaler) 1 puffs INH DAILY [facility]EN Stop: 10/16/23 08:59 Last Admin: 09/22/23 08:44 Dose: 1 puffs
[2023-09-22] MEDS: DEXTROSE 50% 50 ML SYRINGE IV PRN (17:19)
[2023-09-22] MEDS ORDERED: ALBUMIN 25% 25 GM/100 ML VIAL IV ONE (18:15)
[2023-09-22 18:34] LABS: BUN Creatinine Ratio 13.3 (10-20); Calcium 7.6 mg/dl (8.6-10.3); Creatinine Clr Calc Pharmacy 108.6 ml/min; Est GFR (African American) 118.9 ml/min; Est GFR (Non-African American) 102.6 ml/min; Magnesium 1.8 mg/dl (1.7-2.4); Phosphorus 2.2 mg/dl (2.5-4.9); Potassium 4.1 mmol/L (3.5-5.1)
[2023-09-22] MEDS ORDERED: SODIUM PHOSPHATE 3 MMOL/1 ML INFUSION IV STA (18:37)
[2023-09-22] MEDS ORDERED: SODIUM PHOSPHATE 9 MMOL in SODIUM CHLORIDE 0.9% 250 ML IV ONE (18:45)
--- NOTE | 2023-09-22 19:02 | Communication Note ---
Date of Service: September 22, 2023 Per RN patient received regular scheduled Klonopin at 5:00pm. Then she went to check his blood sugar levels and found him barely responsive, blood sugar level was in the 40s. Received dextrose. Physician was contacted. On my evaluation patient was very drowsy, however able to open his eyes. Blood pressure was low, systolic in 90s. Positioned patient in Trendelenburg position, patient started to be more responsive and moving his extremities. Also ordered normal saline bolus and albumin. Ordered stat BMP mag and Phos. Changed the bed position to normal. Unfortunately patient again became unresponsive, and [facility] was called. Blood pressure low, placed bed again to Trendelenburg position. Patient remained in sinus rhythm. Normal saline bolus and albumin IV infusing. Patient then more responsive moving extremities and talking. Slowly positioned the bed back. Patient complaining of abdominal pain. Blood work came back, with some low Phos, replacement ordered. CT abdomen also ordered. Attending physician, Dr. Whiting was updated over the [place] text. MD Farzana
--- NOTE | 2023-09-22 19:58 | CT Scan Report ---
Exam(s): CT ABDOMEN + PELVIS Without Contrast EXAM: CT Abdomen and Pelvis Without Intravenous Contrast CLINICAL HISTORY: Reason for exam: abd. pain, low BP, LOC. TECHNIQUE: Axial computed tomography images of the abdomen and pelvis without intravenous contrast. CTDI is 25.99 mGy and DLP is 1314.92 mGy-cm. Automated exposure control was utilized for the study. A dose lowering technique was utilized adhering to the principles of ALARA. COMPARISON: No relevant prior studies available. FINDINGS: Lung bases: Atelectasis at the lung bases. Pleural space: Small RIGHT pleural effusion. ABDOMEN: Liver: Unremarkable. Gallbladder and bile ducts: Cholecystectomy. No ductal dilation. Pancreas: Unremarkable. No ductal dilation. Spleen: Unremarkable. No splenomegaly. Adrenals: Unremarkable. No mass. Kidneys and ureters: Unremarkable. No hydronephrosis or nephrolithiasis. Stomach and bowel: Mild fecal retention, correlate for constipation. No small bowel obstruction. No free air. No mucosal thickening. PELVIS: Appendix: No findings to suggest acute appendicitis. Bladder: Decompression or new bladder which contains a Blue catheter. Wall thickening of the urinary bladder, correlate for UTI. No stones. Reproductive: Unremarkable as visualized. ABDOMEN and PELVIS: Intraperitoneal space: See above. Bones/joints: Degenerative changes of the spine. Old fractures on the LEFT and RIGHT pubic rami. No dislocation. Soft tissues: Unremarkable. Vasculature: IVC filter. Atherosclerotic changes of the aorta. No abdominal aortic aneurysm. Lymph nodes: Unremarkable. No enlarged lymph nodes. IMPRESSION: 1. Decompression or new bladder which contains a Blue catheter. Wall thickening of the urinary bladder, correlate for UTI. 2. Small RIGHT pleural effusion. 3. Cholecystectomy. 4. IVC filter. 5. Mild fecal retention, correlate for constipation. No small bowel obstruction. No free air. Electronically signed by: Hector Elias MD 09/22/23 19:57 PM
[2023-09-22] MEDS: LANTUS PER UNIT CHARGE SQ SCH (21:06)
[2023-09-22] MEDS: traZODone HCL 50 MG TAB PO SCH (21:07)
[2023-09-22] MEDS: SIMVASTATIN 40 MG TAB PO SCH (21:07)
[2023-09-23] MEDS: ACETAMINOPHEN 325 MG TAB PO PRN ×2 (07:08→15:34)
[2023-09-23 07:31] LABS: Hematocrit (blood only) 30.2 % (42.0-52.0); Hemoglobin 9.7 g/dl (14.0-18.0); Mean Corpuscular Hemoglobin 32.6 pg (25.0-34.0); Mean Corpuscular Hgb Conc 32.1 g/dL (32.0-36.0); Mean Corpuscular Volume 101.3 fL (80.0-100.0); Mean Platelet Volume 10.7 fL (9.4-12.4); Platelet Count 132 K/uL (130-400); RDW Coefficient of Variation 13.4 % (11.5-14.5); RDW Standard Deviation 50.4 fL (36.4-46.3); Red Blood Count 2.98 M/uL (4.70-6.10); White Blood Count 4.57 K/ul (4.8-10.8)
[2023-09-23 07:54] LABS: BUN Creatinine Ratio 12.5 (10-20); Calcium 7.8 mg/dl (8.6-10.3); Creatinine Clr Calc Pharmacy 135.8 ml/min; Est GFR (African American) 130.3 ml/min; Est GFR (Non-African American) 112.4 ml/min; Magnesium 1.7 mg/dl (1.7-2.4); Phosphorus 2.2 mg/dl (2.5-4.9); Potassium 4.8 mmol/L (3.5-5.1)
[2023-09-23] MEDS: QUEtiapine FUMARATE 100 MG TABLET PO SCH ×3 (08:20→20:47)
[2023-09-23] MEDS: MULTIVITAMIN TAB PO SCH (08:21)
[2023-09-23] MEDS: GABAPENTIN 300 MG CAP PO SCH ×3 (08:21→20:47)
[2023-09-23] MEDS: OXcarbazepine 150 MG TABLET PO SCH ×2 (08:21→20:48)
[2023-09-23] MEDS: TAMSULOSIN HCL 0.4 MG CAP PO SCH (08:21)
[2023-09-23] MEDS: PANTOprazole 40 MG TAB PO SCH (08:21)
[2023-09-23] MEDS: FINASTERIDE 5 MG TAB PO SCH (08:21)
[2023-09-23] MEDS: SERTRALINE HCL 50 MG TABLET PO SCH (08:22)
[2023-09-23] MEDS: CLOTRIMAZOLE 1% CR 15 GM TUBE EXT SCH ×2 (08:22→20:45)
[2023-09-23] MEDS: ARTIFICIAL TEARS OP SCH ×2 (08:22→20:45)
[2023-09-23] MEDS: BISMUTH SUBSALICYLATE 262 MG CHEW PO PRN (08:26)
[2023-09-23] MEDS: INSULIN ASPART PER UNIT CHARGE SC SCH ×4 (08:51→20:45)
[2023-09-23] MEDS: clonazePAM 0.5 MG TAB PO SCH ×3 (08:52→20:44)
--- NOTE | 2023-09-23 13:20 | Hospitalist Progress Note ---
Date of Service September 23, 2023 Assessment & Plan (1) Ileus: Plan: SBO versus ileus secondary to gastroenteritis rule out C. difficile Kept on n.p.o. Appreciate surgery input and recommendation Has been moving bowels without any abdominal symptoms Will start clears oral She has been tolerating clears and will advance as tolerated Remains stable without abdominal distention and bowel has been moving No abdominal distention, nauseous at times but no vomiting Has been tolerating diet No abdominal distention, may have minimal discomfort and has been moving bowels Has been tolerating diet with some discomfort without any nausea and or vomiting Repeat CT of the abdomen pelvis did not show any intestinal obstruction or any other significant findings Hypoglycemic episode followed by unresponsive episode last evening Received intravenous dextrose followed by fluid bolus and IV albumin Came onto her normality last evening Remains stable this morning Always asking for help Looks that he is in acute distress This is observed and confirmed by the caregiver that that is his normal No additional measures to be taken until the condition really gets worse This has been her baseline as per the caregiver She is back to her baseline Chronic diastolic heart failure (EF 60-65%, TTE 2022), patient on dry side PAF not on anticoagulation due to fall risk, patient NSR mild PVD on Pentoxifylline No signs and or symptoms of fluid overload and no chest pain or palpitation Will stop her IV fluid (2) Hypomagnesemia: Plan: Secondary to GI illness Supplemented and corrected Sodium level has been a little low at 129 on 09/18/2023 Magnesium supplemented and will recheck tomorrow Magnesium level went up to 1.6 Hyponatremia Likely secondary to less intake Sodium level remains low at 129 May need to have sodium tablet under normal saline infusion Sodium level has gone up to 132 Sodium level has been normalized as of 09/22/2023 (3) Gastroenteritis: Plan: Possible gastroenteritis on presentation With nausea and vomiting Has been feeling much better C. difficile toxin has been negative Doxycycline has been discontinued Started with Protonix-will increase Protonix to twice daily Will discontinue IV Unasyn might be causing stomach upset (4) Cerebral palsy: Plan: hx cerebral palsy/Klinefelter syndrome, intellectual disability as per records Remains stable (5) Intellectual disability: (6) Diabetes mellitus, type 2: Plan: Basal bolus insulin adjusted for n.p.o. status, ISS BG goal 1 10-1 40 Blood sugar remains stable (7) Chronic obstructive pulmonary disease: Plan: No acute exacerbation Plan Other significant medical conditions remained stable DVT prophylaxis. SCDs Re: Thrombocytopenia, hematoma Possible hematoma left buttock on CT read, unclear if patient had recent trauma, hemoglobin currently at baseline chronic thrombocytopenia DNR as per patient prior directives as per discussion with patient guardian/caregiver Ms. Gracia Nichols. She requests updates from providers through [phone]. Discussed with the care provider will be coming tomorrow to have a [id number] discussion Discussed with the caregiver Awaiting placement Admission and Anticipated Discharge Date Admission Date: September 16, 2023 Subjective 09/17/2023 The patient was seen and examined in medical telemetry unit She denies any abdominal symptoms and wants to eat Has had a good bowel movement and has strong bowel sound Will start oral feeding with clears orally 09/18/2023 The patient was seen and examined in medical telemetry unit She has been stable and denies any significant symptoms Has been eating and drinking reasonably as per the nursing staff 09/19/2023 The patient was seen and examined in the medical telemetry unit He has been complaining of some abdominal discomfort with nausea but no vomiting Has been tolerating diet and moving her bowels 09/20/2023 The patient was seen and examined in medical telemetry unit She has been complaining of some throat/epigastric discomfort with belching at times Not in any apparent distress 09/21/2023 The patient was seen and examined in medical telemetry unit He was seen in presence of the caregiver He seems to be at his baseline as per the caregiver Denies any acute distress 09/22/2023 The patient was seen and examined in medical telemetry unit He has been stable and complains to have nonspecific symptoms Remains at her baseline as per the caregiver 09/23/2023 The patient was seen and examined in medical telemetry unit He has had hypoglycemic episode last evening followed by brief period of unresponsiveness and low blood pressure Responded well with IV fluid and lowering the head end of the bed and a CAT scan was requested This morning she has been back to her baseline Has a few nonspecific complaints like before Review of Systems Review of Systems: All systems reviewed and are unremarkable except as noted below Physical Exam Physical Exam: Lying in bed without any acute distress Constitutional: + ill appearing and average body habitus Eyes: PERRL, conjunctivae normal, anicteric sclerae ENMT: external ear and nose normal, oropharynx normal Neck: trachea midline, no thyromegaly Respiratory: no respiratory distress Auscultation: + diminished lung sounds and + crackles (Minimal crackles at the bases) Cardiovascular: Rate/Rhythm: regular rate and regular rhythm; not tachycardic Heart Sounds: normal S1, normal S2 and + murmur Extremities: no edema Gastrointestinal (Abdomen): Inspection/Auscultation: normal bowel sounds; abdomen not distended Percussion/Palpation: abdomen soft; abdomen nontender Musculoskeletal: No acute arthritis involving any of the joint Neurologic: normal touch/pain/proprioception and moves all extremities; no focal motor deficits Lymphatic: no cervical or axillary lymphadenopathy Results & Data Results & Data Vital Signs (Past 12 Hours) Vital Signs Temp Pulse Pulse Resp BP Pulse Ox O2 Del Method 09/23/23 11:05 36.9 C 74 18 147/80 H 95 Room Air 09/23/23 08:39 68 09/23/23 07:59 36.8 C 75 18 159/77 H 98 Room Air 09/23/23 07:40 Room Air 09/23/23 03:45 36.4 C L 64 16 119/77 97 Room Air Laboratory Results Short CBC 09/23/23 Range/Units 06:28 WBC 4.57 L (4.8-10.8) K/ul Hgb 9.7 L (14.0-18.0) g/dl Hct 30.2 L (42.0-52.0) % Plt Count 132 (130-400) K/uL BMP 09/22/23 09/23/23 18:00 06:28 Sodium 137 134 L Potassium 4.1 4.8 Chloride 107 104 Carbon Dioxide 28 26 BUN 8 6 Creatinine 0.60 0.48 L Glucose 135 H 201 H Calcium 7.6 L 7.8 L Medications Administered Current Inpatient Medications Acetaminophen (Acetaminophen 325 Mg Tab) 650 mg PO Q4H PRN PRN Reason: Pain or Fever Stop: 10/16/23 04:11 Last Admin: 09/23/23 07:08 Dose: 650 mg Al Hydrox/Mg Hydrox/Simethicone (Aluminum/Magnesium Susp 30 Ml Udc) 15 ml PO Q6H PRN PRN Reason: Dyspepsia Stop: 10/20/23 15:42 Last Admin: 09/21/23 11:25 Dose: 15 ml Artificial Tears (Artificial Tears) 1 drops OP BID [facility]EN Stop: 10/16/23 08:59 Last Admin: 09/23/23 08:22 Dose: 1 drops Bismuth Subsalicylate (Bismuth Subsalicylate 262 Mg Chew) 1 tab PO Q12 PRN PRN Reason: .UPSET STOMACH Stop: 10/16/23 03:26 Last Admin: 09/23/23 08:26 Dose: 1 tab Clonazepam (Clonazepam 0.5 Mg Tab) 0.5 mg PO TID@0800,1600,2000 [facility] Stop: 10/16/23 07:59 Last Admin: 09/23/23 08:52 Dose: 0.5 mg Clotrimazole (Clotrimazole 1% Cr 15 Gm Tube) 1 appln EXT BID [facility]EN Stop: 10/22/23 12:29 Last Admin: 09/23/23 08:22 Dose: 1 appln Dextrose (Dextrose 50% 50 Ml Syringe) 25 - 50 ml IV UD PRN; Protocol PRN Reason: Hypoglycemia Protocol Stop: 10/16/23 02:56 Last Admin: 09/22/23 17:19 Dose: 50 ml Finasteride (Finasteride 5 Mg Tab) 5 mg PO QAM SEN Stop: 10/16/23 08:59 Last Admin: 09/23/23 08:21 Dose: 5 mg Gabapentin (Gabapentin 300 Mg Cap) 300 mg PO TID SEN Stop: 10/16/23 08:59 Last Admin: 09/23/23 08:21 Dose: 300 mg Glucagon (Glucagon For Inj 1 Mg Vial) 1 mg SQ UD PRN; Protocol PRN Reason: Hypoglycemia Protocol Stop: 10/16/23 02:56 Glucose (Glucose 10 Tab/Tube) 4 - 8 tab PO UD PRN; Protocol PRN Reason: Hypoglycemia Treatment Stop: 10/16/23 02:56 Glucose (Glucose 40% Gel 15 Gm Tube) 15 - 30 gm PO UD PRN; Protocol PRN Reason: Hypoglycemia Protocol Stop: 10/16/23 02:56 Insulin Aspart (Insulin Aspart Per Unit Charge) 0 units SC ACHS [facility]EN Stop: 10/18/23 11:29 Last Admin: 09/23/23 12:46 Dose: Not Given Insulin Glargine (Lantus Per Unit Charge) 5 units SQ HS [facility]EN Stop: 10/16/23 20:59 Last Admin: 09/22/23 21:06 Dose: 5 units Metoprolol Tartrate (Metoprolol Tartrate 25 Mg Tab) 12.5 mg PO BID [facility] Stop: 10/16/23 08:59 Last Admin: 09/21/23 09:02 Dose: Not Given Miscellaneous (Carbohydrates For Hypoglycemia ) 15 - 30 gm PO UD PRN PRN Reason: Hypoglycemia Protocol Stop: 10/16/23 02:56 Last Admin: 09/21/23 17:32 Dose: 15 gm Multivitamins (Multivitamin Tab) 1 tab PO DAILY SEN Stop: 10/16/23 08:59 Last Admin: 09/23/23 08:21 Dose: 1 tab Oxcarbazepine (Oxcarbazepine 150 Mg Tablet) 300 mg PO BID [facility]EN Stop: 10/16/23 08:59 Last Admin: 09/23/23 08:21 Dose: 300 mg Pantoprazole Sodium (Pantoprazole 40 Mg Tab) 40 mg PO QAM SEN Stop: 10/19/23 12:44 Last Admin: 09/23/23 08:21 Dose: 40 mg Quetiapine Fumarate (Quetiapine Fumarate 100 Mg Tablet) 100 mg PO TID [facility]EN Stop: 10/16/23 08:59 Last Admin: 09/23/23 08:20 Dose: 100 mg Sertraline HCl (Sertraline Hcl 50 Mg Tablet) 50 mg PO DAILY SEN Stop: 10/16/23 08:59 Last Admin: 09/23/23 08:22 Dose: 50 mg Simvastatin (Simvastatin 40 Mg Tab) 40 mg PO QPM SEN Stop: 10/16/23 20:59 Last Admin: 09/22/23 21:07 Dose: 40 mg Tamsulosin HCl (Tamsulosin Hcl 0.4 Mg Cap) 0.4 mg PO DAILY SEN Stop: 10/16/23 08:59 Last Admin: 09/23/23 08:21 Dose: 0.4 mg Trazodone HCl (Trazodone Hcl 50 Mg Tab) 50 mg PO HS SEN Stop: 10/16/23 20:59 Last Admin: 09/22/23 21:07 Dose: 50 mg Umeclidinium [place] (Umeclidinium [place] 62.5mcg/Blister 7 Puffs/Inhaler) 1 puffs INH DAILY SEN Stop: 10/16/23 08:59 Last Admin: 09/22/23 08:44 Dose: 1 puffs
[2023-09-23] MEDS: UMECLIDINIUM BROMIDE 62.5MCG/BLISTER 7 PUFFS/INHALER INH SCH (13:27)
[2023-09-23] MEDS: LANTUS PER UNIT CHARGE SQ SCH (20:44)
[2023-09-23] MEDS: traZODone HCL 50 MG TAB PO SCH (20:44)
[2023-09-23] MEDS: SIMVASTATIN 40 MG TAB PO SCH (20:48)
[2023-09-24] MEDS: BISMUTH SUBSALICYLATE 262 MG CHEW PO PRN (07:38)
[2023-09-24] MEDS: ARTIFICIAL TEARS OP SCH ×2 (09:06→20:23)
[2023-09-24] MEDS: TAMSULOSIN HCL 0.4 MG CAP PO SCH (09:06)
[2023-09-24] MEDS: CLOTRIMAZOLE 1% CR 15 GM TUBE EXT SCH ×2 (09:06→20:23)
[2023-09-24] MEDS: MULTIVITAMIN TAB PO SCH (09:06)
[2023-09-24] MEDS: SERTRALINE HCL 50 MG TABLET PO SCH (09:07)
[2023-09-24] MEDS: GABAPENTIN 300 MG CAP PO SCH ×3 (09:07→20:24)
[2023-09-24] MEDS: PANTOprazole 40 MG TAB PO SCH (09:07)
[2023-09-24] MEDS: QUEtiapine FUMARATE 100 MG TABLET PO SCH ×3 (09:07→20:25)
[2023-09-24] MEDS: FINASTERIDE 5 MG TAB PO SCH (09:07)
[2023-09-24] MEDS: OXcarbazepine 150 MG TABLET PO SCH ×2 (09:08→20:24)
[2023-09-24] MEDS: INSULIN ASPART PER UNIT CHARGE SC SCH ×4 (09:14→20:24)
[2023-09-24] MEDS: clonazePAM 0.5 MG TAB PO SCH ×3 (09:14→20:23)
[2023-09-24] MEDS: UMECLIDINIUM BROMIDE 62.5MCG/BLISTER 7 PUFFS/INHALER INH SCH (11:13)
--- NOTE | 2023-09-24 16:16 | Hospitalist Progress Note ---
Date of Service September 24, 2023 Assessment & Plan (1) Ileus: Plan SBO versus ileus: Likely secondary to gastroenteritis Admitting CT abdomen/pelvis suggestive of ileus Repeat CT head scan of the abdomen pelvis did not show any intestinal obstruction. General surgery evaluated, appreciate recommendation. Patient moving bowels okay, advance diet as tolerated. No nausea or vomiting. Patient remained stable without abdominal distention. Gastroenteritis: Possible gastroenteritis at presentation. Was with nausea and vomiting. Currently feeling much better, c diff toxin negative. Hypoglycemic episode followed by unresponsive episode 09/22/2023: Status post hypoglycemia protocol with improvement. Continue to monitor. General distressful appearance: at baseline per records. Other chronic medical conditions: Continue with/resume home meds as and when able. Chronic diastolic heart failure (EF 60-65%, TTE 2022), patient on dry side PAF not on anticoagulation due to fall risk, patient NSR mild PVD on Pentoxifylline Cerebral palsy/Klinefelter syndrome, intellectual disability per records - stable Diabetes mellitus type 2: Sliding scale insulin while in hospital. COPD: Not in acute exacerbation. Hypomagnesemia: Monitor and replete, appears resolved. Chronic hyponatremia: Patient at baseline, continue to monitor. DVT prophylaxis. SCDs Re: Thrombocytopenia, hematoma DNR Admission and Anticipated Discharge Date Admission Date: September 16, 2023 Subjective Patient was seen and examined at bedside. Patient was lying in bed, on room air, NAD, reports being in pain overall which appears to be his baseline. Per RN, patient eating okay, moving bowels okay, no new acute events overnight. Physical Exam Physical Exam: GENERAL: Alert and oriented x3. NAD, on RA. HEENT: No pallor, no icterus. Pupils equal, round and reactive to light. Oral mucosa moist. NECK: No JVD, no neck masses. HEART: S1 and S2 heard. Regular rate and rhythm. + murmur, no gallop. RESPIRATORY SYSTEM: Normal AP diameter. No accessory muscle use. No wheezing, no crackles. ABDOMEN: Soft, bowel sounds present, nontender, no distention. CENTRAL NERVOUS SYSTEM: No facial droop. Speech is clear. Obeys simple comman ds. Moves extremities. EXTREMITIES: Trace BLE edema, no erythema seen. Urinary catheter with light yellow urine collection noted. Results & Data Results & Data Vital Signs (Past 12 Hours) Vital Signs Temp Pulse Pulse Resp BP Pulse Ox O2 Del Method 09/24/23 15:23 36.4 C L 64 20 130/74 97 Room Air 09/24/23 11:35 37.2 C 60 20 155/80 H 97 Room Air 09/24/23 07:49 36.7 C 68 20 145/78 H 94 Room Air 09/24/23 06:07 68
[2023-09-24] MEDS: CARBOHYDRATES FOR HYPOGLYCEMIA PO PRN (17:21)
[2023-09-24] MEDS: LANTUS PER UNIT CHARGE SQ SCH (20:24)
[2023-09-24] MEDS: SIMVASTATIN 40 MG TAB PO SCH (20:25)
[2023-09-24] MEDS: traZODone HCL 50 MG TAB PO SCH (20:45)
[2023-09-25 07:12] LABS: Mean Corpuscular Hemoglobin 32.7 pg (25.0-34.0); Mean Corpuscular Hgb Conc 33.3 g/dL (32.0-36.0); Mean Platelet Volume 10.2 fL (9.4-12.4); Platelet Count 147 K/uL (130-400); RDW Coefficient of Variation 13.1 % (11.5-14.5); RDW Standard Deviation 46.5 fL (36.4-46.3); Red Blood Count 3.06 M/uL (4.70-6.10)
[2023-09-25 07:29] LABS: BUN Creatinine Ratio 14.5 (10-20); Calcium 8.5 mg/dl (8.6-10.3); Est GFR (African American) 123.2 ml/min; Est GFR (Non-African American) 106.3 ml/min; Magnesium 1.4 mg/dl (1.7-2.4); Phosphorus 3.9 mg/dl (2.5-4.9); Potassium 4.6 mmol/L (3.5-5.1)
[2023-09-25] MEDS: CLOTRIMAZOLE 1% CR 15 GM TUBE EXT SCH ×2 (08:40→20:05)
[2023-09-25] MEDS: UMECLIDINIUM BROMIDE 62.5MCG/BLISTER 7 PUFFS/INHALER INH SCH (08:40)
[2023-09-25] MEDS: ARTIFICIAL TEARS OP SCH ×2 (08:40→20:04)
[2023-09-25] MEDS: GABAPENTIN 300 MG CAP PO SCH ×3 (08:41→20:05)
[2023-09-25] MEDS: QUEtiapine FUMARATE 100 MG TABLET PO SCH ×3 (08:41→20:07)
[2023-09-25] MEDS: OXcarbazepine 150 MG TABLET PO SCH ×2 (08:41→20:06)
[2023-09-25] MEDS: PANTOprazole 40 MG TAB PO SCH (08:42)
[2023-09-25] MEDS: SERTRALINE HCL 50 MG TABLET PO SCH (08:42)
[2023-09-25] MEDS: FINASTERIDE 5 MG TAB PO SCH (08:42)
[2023-09-25] MEDS: TAMSULOSIN HCL 0.4 MG CAP PO SCH (08:42)
[2023-09-25] MEDS: clonazePAM 0.5 MG TAB PO SCH ×3 (08:47→20:04)
[2023-09-25] MEDS: MAGNESIUM SULFATE / D5W 1 GM/100 ML BAG IV SCH ×2 (09:13→11:06)
[2023-09-25] MEDS: INSULIN ASPART PER UNIT CHARGE SC SCH ×4 (09:13→21:37)
[2023-09-25] MEDS: MULTIVITAMIN TAB PO SCH (09:33)
--- NOTE | 2023-09-25 15:46 | Hospitalist Progress Note ---
Date of Service September 25, 2023 Assessment & Plan (1) Ileus: Plan SBO versus ileus: Likely secondary to gastroenteritis Admitting CT abdomen/pelvis suggestive of ileus Repeat CT head scan of the abdomen pelvis did not show any intestinal obstruction. General surgery evaluated, appreciate recommendation. Patient moving bowels okay, eating ok. No nausea or vomiting. Patient remained stable without abdominal distention. Gastroenteritis: Possible gastroenteritis at presentation. Was with nausea and vomiting. Currently feeling much better, c diff negative. Hypoglycemic episode followed by unresponsive episode 09/22/2023: Status post hypoglycemia protocol with improvement. Continue to monitor. General distressful appearance: at baseline per records. Other chronic medical conditions: Continue with/resume home meds as and when able. Chronic diastolic heart failure (EF 60-65%, TTE 2022), patient on dry side PAF not on anticoagulation due to fall risk, patient NSR mild PVD on Pentoxifylline Cerebral palsy/Klinefelter syndrome, intellectual disability per records - stable Diabetes mellitus type 2: Sliding scale insulin while in hospital. COPD: Not in acute exacerbation. Hypomagnesemia: Monitor and replete, appears resolved. Chronic hyponatremia: Patient at baseline, continue to monitor. DVT prophylaxis. SCDs Re: Thrombocytopenia, hematoma DNR Awaiting placement. Admission and Anticipated Discharge Date Admission Date: September 16, 2023 Subjective Patient was seen and examined at bedside. Patient was lying in bed, on room air, NAD, reports being in pain overall which appears to be his baseline. Per RN, patient eating okay, moving bowels okay, no new acute events overnight. Physical Exam Physical Exam: GENERAL: Alert and oriented x3. NAD, on RA. HEENT: No pallor, no icterus. Pupils equal, round and reactive to light. Oral mucosa moist. NECK: No JVD, no neck masses. HEART: S1 and S2 heard. Regular rate and rhythm. + murmur, no gallop. RESPIRATORY SYSTEM: Normal AP diameter. No accessory muscle use. No wheezing, no crackles. ABDOMEN: Soft, bowel sounds present, nontender, no distention. CENTRAL NERVOUS SYSTEM: No facial droop. Speech is clear. Obeys simple comman ds. Moves extremities. EXTREMITIES: Trace BLE edema, no erythema seen. Urinary catheter with light yellow urine collection noted. Results & Data Results & Data Vital Signs (Past 12 Hours) Vital Signs Temp Pulse Pulse Resp BP BP Pulse Ox 09/25/23 11:11 36.7 C 80 19 131/74 95 09/25/23 08:23 36.8 C 63 18 136/77 96 09/25/23 05:58 64 O2 Del Method 09/25/23 11:11 Room Air 09/25/23 08:23 Room Air 09/25/23 05:58
[2023-09-25] MEDS: SIMVASTATIN 40 MG TAB PO SCH (20:07)
[2023-09-25] MEDS: traZODone HCL 50 MG TAB PO SCH (20:08)
[2023-09-25] MEDS: LANTUS PER UNIT CHARGE SQ SCH (21:36)
[2023-09-26 07:21] LABS: BUN Creatinine Ratio 25.8 (10-20); Calcium 8.8 mg/dl (8.6-10.3); Creatinine Clr Calc Pharmacy 100.2 ml/min; Est GFR (African American) 117.3 ml/min; Est GFR (Non-African American) 101.2 ml/min; Magnesium 1.3 mg/dl (1.7-2.4); Potassium 4.6 mmol/L (3.5-5.1)
[2023-09-26] MEDS: INSULIN ASPART PER UNIT CHARGE SC SCH ×4 (09:58→20:38)
[2023-09-26] MEDS: clonazePAM 0.5 MG TAB PO SCH ×3 (09:59→20:38)
[2023-09-26] MEDS: ARTIFICIAL TEARS OP SCH ×2 (09:59→20:39)
[2023-09-26] MEDS: CLOTRIMAZOLE 1% CR 15 GM TUBE EXT SCH ×2 (09:59→20:39)
[2023-09-26] MEDS: FINASTERIDE 5 MG TAB PO SCH (10:00)
[2023-09-26] MEDS: UMECLIDINIUM BROMIDE 62.5MCG/BLISTER 7 PUFFS/INHALER INH SCH (10:01)
[2023-09-26] MEDS: GABAPENTIN 300 MG CAP PO SCH ×3 (10:01→20:40)
[2023-09-26] MEDS: OXcarbazepine 150 MG TABLET PO SCH ×2 (10:02→20:40)
[2023-09-26] MEDS: QUEtiapine FUMARATE 100 MG TABLET PO SCH ×3 (10:02→20:40)
[2023-09-26] MEDS: MULTIVITAMIN TAB PO SCH (10:02)
[2023-09-26] MEDS: TAMSULOSIN HCL 0.4 MG CAP PO SCH (10:03)
[2023-09-26] MEDS: SERTRALINE HCL 50 MG TABLET PO SCH (10:03)
[2023-09-26] MEDS: PANTOprazole 40 MG TAB PO SCH (10:03)
[2023-09-26] MEDS: MAGNESIUM CHLORIDE W/CALCIUM 64MG DELAYED REL TAB PO SCH (11:17)
[2023-09-26] MEDS: MAGNESIUM SULFATE / D5W 1 GM/100 ML BAG IV SCH ×3 (11:17→17:44)
[2023-09-26] MEDS: SIMETHICONE 80 MG CHEW PO PRN (14:34)
--- NOTE | 2023-09-26 16:31 | Hospitalist Progress Note ---
Date of Service September 26, 2023 Assessment & Plan (1) Ileus: Plan SBO versus ileus: Likely secondary to gastroenteritis Admitting CT abdomen/pelvis suggestive of ileus Repeat CT head scan of the abdomen pelvis did not show any intestinal obstruction. General surgery evaluated, appreciate recommendation. Patient moving bowels okay, eating ok. No nausea or vomiting. Patient remained stable without abdominal distention. Gastroenteritis: Possible gastroenteritis at presentation. Was with nausea and vomiting. Currently feeling much better, c diff negative. Hypoglycemic episode followed by unresponsive episode 09/22/2023: Status post hypoglycemia protocol with improvement. Continue to monitor. General distressful appearance: at baseline per records. Other chronic medical conditions: Continue with/resume home meds as and when able. Chronic diastolic heart failure (EF 60-65%, TTE 2022), patient on dry side PAF not on anticoagulation due to fall risk, patient NSR mild PVD on Pentoxifylline Cerebral palsy/Klinefelter syndrome, intellectual disability per records - stable Diabetes mellitus type 2: Sliding scale insulin while in hospital. COPD: Not in acute exacerbation. Hypomagnesemia: Monitor and replete, appears resolved. Chronic hyponatremia: Patient at baseline, continue to monitor. DVT prophylaxis. SCDs Re: Thrombocytopenia, hematoma DNR Awaiting placement. Admission and Anticipated Discharge Date Admission Date: September 16, 2023 Subjective Patient was seen and examined at bedside. Patient was lying in bed, on room air, NAD, reports being in pain overall which appears to be his baseline. Per RN, patient eating okay, moving bowels okay, no new acute events overnight. Physical Exam Physical Exam: GENERAL: Alert and oriented x3. NAD, on RA. HEENT: No pallor, no icterus. Pupils equal, round and reactive to light. Oral mucosa moist. NECK: No JVD, no neck masses. HEART: S1 and S2 heard. Regular rate and rhythm. + murmur, no gallop. RESPIRATORY SYSTEM: Normal AP diameter. No accessory muscle use. No wheezing, no crackles. ABDOMEN: Soft, bowel sounds present, nontender, no distention. CENTRAL NERVOUS SYSTEM: No facial droop. Speech is clear. Obeys simple commands. Moves extremities. EXTREMITIES: Trace BLE edema, no erythema seen. Urinary catheter with light yellow urine collection noted. Results & Data Results & Data Vital Signs (Past 12 Hours) Vital Signs Temp Pulse Pulse Resp BP Pulse Ox O2 Del Method 09/26/23 11:10 37.2 C 68 18 149/71 H 92 Room Air 09/26/23 07:50 36.7 C 63 18 153/81 H 95 Room Air 09/26/23 06:00 63
[2023-09-26] MEDS: LANTUS PER UNIT CHARGE SQ SCH (20:38)
[2023-09-26] MEDS: traZODone HCL 50 MG TAB PO SCH (20:38)
[2023-09-26] MEDS: SIMVASTATIN 40 MG TAB PO SCH (20:41)
[2023-09-26] MEDS ORDERED: ALBUMIN 25% 25 GM/100 ML VIAL IV ONE (22:31)
[2023-09-26] MEDS ORDERED: LACTATED RINGER'S 500 ML IV ONE (22:39)
--- NOTE | 2023-09-26 22:48 | Communication Note ---
Date of Service: September 26, 2023 10:30 PM Patient noted to be lethargic, O2 sats 80s on 2 L as per RN. SBP currently 50s. Patient received nightly clonazepam, trazodone, gabapentin, oxcarbazepine, and Seroquel at 8:30 PM. BSG 130s. Code marko later called. PPE Obtunded No respiratory distress Bradycardic Sodium 128 from 131 in a.m. Serum creatinine 0.72 from 0.62 in a.m. UA WBC esterase AP Encephalopathy Multifactorial: Hypotension secondary to hypovolemia Acute on chronic hyponatremia Possible UTI Multiple neuropsychotropic meds contributory IVF Urine CS, Zosyn (hx Enterococcus and enteric organisms on previous urine CS) Appropriate to hold multiple neuropsychotropic medications for now. May benefit from Psych consult after episode of confusion RE multiple ne uropsychotropic medications, medication management, elderly patient
[2023-09-26] MEDS ORDERED: SODIUM CHLORIDE 0.9% 1,000 ML IV ONE (22:55)
[2023-09-26 23:08] LABS: Basophils # (auto) 0.04 K/uL (0.00-0.20); Basophils % (auto) 0.8 %; Eosinophils # (auto) 0.14 K/uL (0.00-0.50); Eosinophils % (auto) 2.8 %; Hematocrit (blood only) 30.3 % (42.0-52.0); Immature Granulocytes # (auto) 0.01 K/uL (0.01-0.20); Immature Granulocytes % (auto) 0.2 %; Lymphocytes # (auto) 1.83 K/uL (1.20-3.40); Lymphocytes % (auto) 37.2 %; Mean Corpuscular Hemoglobin 32.6 pg (25.0-34.0); Mean Corpuscular Volume 98.7 fL (80.0-100.0); Mean Platelet Volume 9.8 fL (9.4-12.4); Monocytes # (auto) 0.44 K/uL (0.11-0.59); Monocytes % (auto) 8.9 %; Neutrophils # (auto) 2.46 K/uL (1.40-6.50); Neutrophils % (auto) 50.1 %; Platelet Count 153 K/uL (130-400); Red Blood Count 3.07 M/uL (4.70-6.10); White Blood Count 4.92 K/ul (4.8-10.8)
[2023-09-26 23:23] LABS: iSTAT Art Bld Gas pCO2 Correct 47 mmHg (35-46); iSTAT Art Bld Gas pH Corrected 7.385 (7.35-7.45); iSTAT Arterial Blood Gas HCO3 28 meg/L (19-24); iSTAT Arterial Blood Gas pCO2 48 mmHg (35-46); iSTAT Arterial Blood Gas pH 7.38 (7.35-7.45); iSTAT Arterial Blood Gas pO2 143 mmHg (80-95); iSTAT Arterial Blood Gas pO2 C 139; iSTAT Carbon Dioxide 30 mmol/L (24-31); iSTAT Hematocrit 28 % (42-52); iSTAT Hemoglobin 9.5 g/dl (14.0-18.0); iSTAT Potassium 4.2 mmol/L (3.3-5.0); iSTAT Sodium 127 mmol/L (135-144)
[2023-09-27 00:07] LABS: Calcium 8.9 mg/dl (8.6-10.3); Magnesium 1.8 mg/dl (1.7-2.4); Potassium 4.2 mmol/L (3.5-5.1)
[2023-09-27 00:13] LABS: BUN Creatinine Ratio 23.6 (10-20); Creatinine Clr Calc Pharmacy 86.3 ml/min; Est GFR (African American) 110.3 ml/min; Est GFR (Non-African American) 95.2 ml/min
[2023-09-27 00:31] LABS: Appearance Urine Cloudy (Clear); Bacteria Urine Automated 2+ (Negative); Bilirubin Urine Negative (Negative); Blood Urine 2+ (Negative); Color Urine Yellow; Epithelial Cell Urine Auto 20-30 /lpf (0-5); Glucose Urine UA Negative (Negative); Ketones Urine Negative (Negative); Leukocyte Esterase Urine 2+ (Negative); Nitrite Urine Negative (Negative); Protein Urine 1+ (Negative); Specific Gravity Urine 1.016 (1.000-1.030); Urobilinogen Urine Negative (Negative); WBC Urine Automated >30 /hpf (0-5)
[2023-09-27 01:07] LABS: Thyroid Stimulating Hormone 4.507 uIu/ml (0.300-4.500)
[2023-09-27 01:50] LABS: T4 Free Thyroxine 0.65 ng/dl (0.61-1.60)
[2023-09-27] MEDS ORDERED: PIPERACILLIN/TAZOBACTAM 4.5 GM in DEXTROSE 5% MINI-B 100 ML IV ONE (03:30)
[2023-09-27 07:06] LABS: Basophils # (auto) 0.04 K/uL (0.00-0.20); Basophils % (auto) 1.1 %; Eosinophils % (auto) 2.8 %; Hematocrit (blood only) 30.6 % (42.0-52.0); Hemoglobin 10.2 g/dl (14.0-18.0); Immature Granulocytes # (auto) 0.01 K/uL (0.01-0.20); Immature Granulocytes % (auto) 0.3 %; Lymphocytes # (auto) 1.21 K/uL (1.20-3.40); Lymphocytes % (auto) 33.3 %; Mean Corpuscular Hemoglobin 32.5 pg (25.0-34.0); Mean Corpuscular Hgb Conc 33.3 g/dL (32.0-36.0); Mean Corpuscular Volume 97.5 fL (80.0-100.0); Mean Platelet Volume 10.3 fL (9.4-12.4); Monocytes # (auto) 0.31 K/uL (0.11-0.59); Monocytes % (auto) 8.5 %; Neutrophils # (auto) 1.96 K/uL (1.40-6.50); Platelet Count 152 K/uL (130-400); RDW Standard Deviation 46.4 fL (36.4-46.3); Red Blood Count 3.14 M/uL (4.70-6.10); White Blood Count 3.63 K/ul (4.8-10.8)
[2023-09-27 07:17] LABS: BUN Creatinine Ratio 25.5 (10-20); Calcium 8.5 mg/dl (8.6-10.3); Creatinine Clr Calc Pharmacy 117.6 ml/min; Est GFR (African American) 123.2 ml/min; Est GFR (Non-African American) 106.3 ml/min; Potassium 4.3 mmol/L (3.5-5.1)
[2023-09-27] MEDS: ARTIFICIAL TEARS OP SCH ×2 (08:13→20:39)
[2023-09-27] MEDS: PIPERACILLIN/TAZOBACTAM 4.5 GM in DEXTROSE 5% MINI-B 100 ML IV SCH ×3 (08:13→23:30)
[2023-09-27] MEDS: CLOTRIMAZOLE 1% CR 15 GM TUBE EXT SCH ×2 (08:13→20:39)
[2023-09-27] MEDS: FINASTERIDE 5 MG TAB PO SCH (08:14)
[2023-09-27] MEDS: TAMSULOSIN HCL 0.4 MG CAP PO SCH (08:14)
[2023-09-27] MEDS: MAGNESIUM CHLORIDE W/CALCIUM 64MG DELAYED REL TAB PO SCH (08:14)
[2023-09-27] MEDS: PANTOprazole 40 MG TAB PO SCH (08:14)
[2023-09-27] MEDS: SERTRALINE HCL 50 MG TABLET PO SCH (08:15)
[2023-09-27] MEDS: MULTIVITAMIN TAB PO SCH (08:15)
[2023-09-27] MEDS: UMECLIDINIUM BROMIDE 62.5MCG/BLISTER 7 PUFFS/INHALER INH SCH (08:15)
--- NOTE | 2023-09-27 08:51 | XRay Report ---
XR chest 1V portable CLINICAL HISTORY: low o2 COMPARISON STUDY: Chest CT December 21, 2022. Chest radiograph July 19, 2023. FINDINGS: Old right-sided rib fractures are incidentally noted. Cardiomegaly is again noted. There is pulmonary vascular congestion. This has slightly increased. Mild bibasilar opacities are present IVC filter is incidentally noted. No pneumothorax or pleural effusion is identified. IMPRESSION: 1. Cardiomegaly with pulmonary vascular congestion. 2. Mild bibasilar opacities which probably reflect atelectasis although an infectious process could a ppear similar. ACT 112: Negative or not required by law. Electronically signed by: Matias Benson M.D. 09/27/2023 8:49 AM
[2023-09-27] MEDS: INSULIN ASPART PER UNIT CHARGE SC SCH ×4 (09:39→20:40)
--- NOTE | 2023-09-27 15:58 | Hospitalist Progress Note ---
Date of Service September 27, 2023 Assessment & Plan (1) Ileus: Plan SBO versus ileus: Likely secondary to gastroenteritis Admitting CT abdomen/pelvis suggestive of ileus Repeat CT head scan of the abdomen pelvis did not show any intestinal obstruction. General surgery evaluated, appreciate recommendation. Patient moving bowels okay, eating ok. No nausea or vomiting. Patient remained stable without abdominal distention. Gastroenteritis: Possible gastroenteritis at presentation. Was with nausea and vomiting. Currently feeling much better, c diff negative. Hypoglycemic episode followed by unresponsive episode 09/22/2023: Status post hypoglycemia protocol with improvement. Continue to monitor. Likely metabolic encephalopathy: overnight 09/26-09/27; was bradycardic, low bp and SaO2 in 80s on 2L NC O2. Neuropsych meds held, UA s/o uti, atb started, f/u urine Cx. Psy consult to assist w/ neuropsych meds Mx/recommendation. UTI: see above, zosyn 09/27. f/u Cx. Bradycardia: metorprolol on hold. resume as able. General distressful appearance: at baseline per records. Other chronic medical conditions: Continue with/resume home meds as and when a ble. Chronic diastolic heart failure (EF 60-65%, TTE 2022), patient on dry side PAF not on anticoagulation due to fall risk, patient NSR mild PVD on Pentoxifylline Cerebral palsy/Klinefelter syndrome, intellectual disability per records - stable Diabetes mellitus type 2: Sliding scale insulin while in hospital. COPD: Not in acute exacerbation. Hypomagnesemia: Monitor and replete, appears resolved. Chronic hyponatremia: Patient at baseline, continue to monitor. DVT prophylaxis. SCDs Re: Thrombocytopenia, hematoma DNR Awaiting placement. Admission and Anticipated Discharge Date Admission Date: September 16, 2023 Subjective Patient was seen and examined at bedside. Patient was lying in bed, on room air, NAD, reports being in pain overall which appears to be his baseline. Per RN, patient eating okay, moving bowels okay. Overnight, pt was code purple (lethargic, SaO2 in 80s on 2L NC O2 and low BP, bradycardic), UA s/o infxn, atb started, UCx pending. BSG in 130s. Physical Exam Physical Exam: GENERAL: Alert and oriented x3. NAD, on RA. HEENT: No pallor, no icterus. Pupils equal, round and reactive to light. Oral mucosa moist. NECK: No JVD, no neck masses. HEART: S1 and S2 heard. Regular rate and rhythm. + murmur, no gallop. RESPIRATORY SYSTEM: Normal AP diameter. No accessory muscle use. No wheezing, no crackles. ABDOMEN: Soft, bowel sounds present, nontender, no distention. CENTRAL NERVOUS SYSTEM: No facial droop. Speech is clear. Obeys simple commands. Moves extremities. EXTREMITIES: Trace BLE edema, no erythema seen. Urinary catheter with light yellow urine collection noted. Results & Data Results & Data Vital Signs (Past 12 Hours) Vital Signs Temp Pulse Pulse Resp BP BP Pulse Ox 09/27/23 15:32 37.1 C 57 L 14 132/68 95 09/27/23 11:24 37.1 C 59 L 17 115/69 94 09/27/23 07:46 53 L 09/27/23 07:31 36.4 C L 55 L 14 154/84 H 96 O2 Del Method 09/27/23 15:32 Room Air 09/27/23 11:24 Room Air 09/27/23 07:46 09/27/23 07:31 Room Air
[2023-09-27] MEDS: LANTUS PER UNIT CHARGE SQ SCH (20:40)
[2023-09-27] MEDS: SIMVASTATIN 40 MG TAB PO SCH (20:41)
[2023-09-27] MEDS: SIMETHICONE 80 MG CHEW PO PRN (23:29)
[2023-09-28] MEDS: ALUMINUM/MAGNESIUM SUSP 30 ML UDC PO PRN (06:18)
[2023-09-28 06:29] LABS: Hematocrit (blood only) 30.2 % (42.0-52.0); Hemoglobin 10.4 g/dl (14.0-18.0); Mean Corpuscular Hemoglobin 32.5 pg (25.0-34.0); Mean Corpuscular Hgb Conc 34.4 g/dL (32.0-36.0); Mean Corpuscular Volume 94.4 fL (80.0-100.0); Mean Platelet Volume 10.2 fL (9.4-12.4); Platelet Count 175 K/uL (130-400); RDW Coefficient of Variation 12.5 % (11.5-14.5); RDW Standard Deviation 43.5 fL (36.4-46.3); White Blood Count 5.96 K/ul (4.8-10.8)
[2023-09-28 06:51] LABS: BUN Creatinine Ratio 20.6 (10-20); Calcium 8.9 mg/dl (8.6-10.3); Creatinine Clr Calc Pharmacy 92.4 ml/min; Est GFR (African American) 112.9 ml/min; Est GFR (Non-African American) 97.4 ml/min; Magnesium 1.4 mg/dl (1.7-2.4); Phosphorus 3.2 mg/dl (2.5-4.9); Potassium 4.3 mmol/L (3.5-5.1)
[2023-09-28] MEDS: ARTIFICIAL TEARS OP SCH ×2 (08:59→21:47)
[2023-09-28] MEDS: INSULIN ASPART PER UNIT CHARGE SC SCH ×4 (09:00→21:43)
[2023-09-28] MEDS: BISMUTH SUBSALICYLATE 262 MG CHEW PO PRN (09:03)
[2023-09-28] MEDS: CLOTRIMAZOLE 1% CR 15 GM TUBE EXT SCH ×2 (09:03→21:45)
[2023-09-28] MEDS: UMECLIDINIUM BROMIDE 62.5MCG/BLISTER 7 PUFFS/INHALER INH SCH (09:03)
[2023-09-28] MEDS: MAGNESIUM CHLORIDE W/CALCIUM 64MG DELAYED REL TAB PO SCH (09:04)
[2023-09-28] MEDS: MULTIVITAMIN TAB PO SCH (09:04)
[2023-09-28] MEDS: TAMSULOSIN HCL 0.4 MG CAP PO SCH (09:04)
[2023-09-28] MEDS: SIMETHICONE 80 MG CHEW PO PRN ×3 (09:05→21:46)
[2023-09-28] MEDS: SERTRALINE HCL 50 MG TABLET PO SCH (09:06)
[2023-09-28] MEDS: PANTOprazole 40 MG TAB PO SCH (09:07)
[2023-09-28] MEDS: FINASTERIDE 5 MG TAB PO SCH (09:07)
[2023-09-28] MEDS: MAGNESIUM SULFATE / D5W 1 GM/100 ML BAG IV SCH ×2 (09:20→11:28)
[2023-09-28] MEDS: cefTRIAXone SODIUM 2,000 MG in DEXTROSE 5 % MINI-B 50 ML IV SCH (11:28)
--- NOTE | 2023-09-28 13:12 | Psychiatric Consultation ---
Date of Consultation September 28, 2023 Impression / Recommendations Impression Based upon my observations today, and based upon a thorough review of the medical record, my conclusion is that several of his medications may be contributing to some of the presenting symptoms, including hypotension, as well as what I observed to be possibly photosensitivity, dyspepsia, hyponatremia, and, possibly, the patient's dysarthria and emotional lability. In particular, I would look at quetiapine and consider lowering his dose of this medication, particularly in combination with clonazepam, to a dose of 200 mg 3 times a day a day, and then in 3 days reducing the dose further to a dose of 100 mg 3 times a day a day, and, and then another 3 days reduce the dose to a dose of 100 mg twice a day (as tolerated) and then after another 3 days discontinue. I would not assist recommend reducing clonazepam at this point, but an option would be to decrease clonazepam to a dose of 0.5 mg twice daily, with an extra dose available as a as needed medication. It is not clear to why the patient is ta maldonado oxcarbazepine, but unless the patient is believed to be suffering from partial seizures, or for some other specific reason, I would suggest lowering gradually lowering the dose continuing this medication over the course of 4 weeks. This can be accomplished by using the oral suspension form of oxcarbazepine, or, albeit with some risk, the dose may be tapered from 300 mg twice daily to a dose of 150 mg in the morning and 300 mg in the afternoon or evening for a week, followed by a dose reduction of another 150 mg; i.e., 150 mg twice daily for another week. The dose could then be decreased to 75 mg twice a day (300 mg tablet is scored) for another week, and finally to 75 mg once a day before discontinuing it after 3 more days. (1) Nausea vomiting and diarrhea: (2) Ileus: (3) Gastroenteritis: (4) Cerebral palsy: (5) CHF exacerbation: (6) Intellectual disability: Plan *Continue clonazepam without dose change. *Reduce quetiapine from a dose of 300 mg 3 times a day to a dose of 100 mg 3 times a day for for 3 days, and then redosed the dose, as tolerated, to a dose of 100 mg twice a day, and then, if tolerated, discontinue. *Consider lowering the dose of Trileptal. This is recommended to occur over the course of 4 weeks. (See above under impression). I would not lower the dose of this medication if it is being used to treat his seizure disorder, including complex partial seizures. *Trazodone may be contributing to the patient's abdominal discomfort and other GI complaints. He is not on a high dose of this medication and I think that it is most likely to be causing significant adverse effects. However, it would be reasonable to try temporarily discontinuing this medication with a plan for as needed at bedtime for agitation or insomnia. Psych History Identifying Data This is a 68-year-old man who has been admitted to medicine for the evaluation and treatment of gastrointestinal complaints. He suffers from intellectual disability, cerebral palsy, and a number of other complaints. Chief Complaint Mr. Kendall unable to respond. He does indicate, non-verbally, that he wants the blinds on his brought down, which I did for him. History of Present Illness Mr. Isai Kendall is a 68-year-old man who was admitted because of gastrointestinal distress. His diagnoses of admission, and currently, include small bowel obstruction secondary to ileus, versus gastroenteritis. There are multiple other diagnoses, and these include, but are not limited to, congestive heart failure, peripheral vascular disease, COPD, type 2 diabetes mellitus, cerebral palsy (Klinefelter syndrome as referenced at least in 1 location), intellectual disability (estimated to be severe), mild aortic stenosis, and advanced osteoarthritis. A prominent concern is the fact that during the hospitalization the patient has had several bouts of marked hypotension, with systolic readings at least on 1 occasion dropping into the 50s. Complicating the clinical picture is the fact the patient is not able to communicate verbally. According to his current treatment team on [address] he likely makes guttural utterances, and periodically may speak intelligible words, but the words do not seem to be directly linked to a specific need for a specific response to a question has been asked. He was brought to the hospital's emergency room on 09/16/2023 because of his GI distress. The van loader has advised us that they are not able to meet the patient's current service needs, and, currently, Mr. Kendall is awaiting placement at [facility]. The patient is currently on a number of medications, including multiple psychiatric medications, and psychiatry has been consulted to review these medications in order to determine if these may be contributing to the above- referenced episodes of hypotension. I met with the patient [id number]. He was alert, and looked intently at me. He also spoke several unintelligible words. At one point, he seemed to be saying "hot." He then looked at the window, and made several gestures. At one point, I thought that he was saying "up" so I tried raising his blinds, but that caused a certain degree of agitation, and currently, I lowered the blinds lower than they have been, and the patient calm down and seems satisfied. I offered him a drink of ice water, given his report that he might be "hot," and he drank perhaps three quarters of a cup of water through a straw, and seemed satisfied. I made several attempts to test him ways that would not require him to respond verbally. I noted that he is able to select and lift items off his tray, indicating some degree of dexterity, despite tremulousness and choreoathetoid abnormal movements. For example, I asked him to show me "2 fingers." Seems to have distressed him, and repeated instructions several times, before raising 2 of my own fingers to show him what I meant. He did smile and nod at that, perhaps recognizing that he knew what I wanted him to do, but was unable to actually follow the command. I then explained that I was going to be making some recommendations concerning his treatment. As I turned to leave, the patient put out his right hand, in a manner that suggested that he wanted me to shake his hand, and so I did. He smiled broadly at that point. I have had an opportunity to review the patient's medical record and some detail. He is on a number of somatic and psychiatric medications. Current psychiatric medications include clonazepam 0.5 mg 3 times daily; gabapentin 300 mg 3 times daily; oxcarbazepine 300 mg 3 times daily; sertraline 50 mg daily, and trazodone 50 mg at bedtime. Of these, clonazepam and quetiapine include hypertension as a common side effect, although I would tend to doubt that a dose of clonazepam 0.5 mg 3 times daily would explain the degree of hypotension periodically measured. However, the hypotension may possibly be explained within the context of the fact that he is taking both clonazepam and carbamazepine. Cumulatively, I suppose that all of the patient's medications may explain the patient's bouts of low blood pressure. However, there are other possible adverse effects that may be able to help explain some of the patient's current presentation, in terms of some of his other presenting problems. For example, gabapentin includes dyspepsia, dysarthria, and emotional lability as common side effects. Trileptal (oxcarbazepine) has adverse effects that can commonly include hyponatremia, dyspepsia, and photosensitivity (note the patient's apparent request to have the blinds lowered, coupled with the fact that he blinked rapidly a number of times whenever he looked at the window.) Trazodone is commonly associated with nausea, constipation, diarrhea, and abdominal discomfort. The reasons for these various psychiatric medications remain uncertain, which makes it somewhat difficult to provide specific recommendations in this regard. For example, its not clear if medications such as Trileptal, and gabapentin are being prescribed for complex partial seizures, or off label for emotional lability and agitation. Past Psychiatric History Previous Psych History: Limited information is available in this regard. Is taking a number of psychiatric medications, including clonazepam, carbamazepine, Trileptal, quetiapine, sertraline, and trazodone. Current Psychiatric Diagnosis: None Outpatient Services: Known known psychiatric outpatient services Previous Psych Admissions: None Do You Have Access To A Gun?: No (Patient is unable to answer, but presumably he does not.) History of Previous Suicide Attempt: No (Unknown. The patient is not able to respond to questions.) Describe Attempts in the Past: Unable to respond. Unknown Past Medication Trials: See above. No additional psychiatric medications were identified Allergies Allergy/AdvReac Type Severity Reaction Status Date / Time lactose Allergy Intermediate GI SYMPTOMS Verified 09/16/23 03:01 aspirin Allergy Unknown UNKNOWN Verified 09/16/23 03:01 REACTION cephalexin Allergy Unknown UNKNOWN Verified 09/16/23 03:01 REACTION Cephalosporins Allergy Unknown UNKNOWN Verified 09/16/23 03:01 REACTION Corticosteroids Allergy Unknown UNKNOWN Verified 09/16/23 03:01 (Glucocorticoids) REACTION methylprednisolone Allergy Unknown UNKNOWN Verified 09/16/23 03:01 REACTION shellfish derived Allergy Unknown UNKNOWN Verified 09/16/23 03:01 REACTION Home Medications Medication Instructions Recorded Confirmed Type Lactobacillus rhamnosus GG 15 2 cap PO DAILY 09/16/23 09/16/23 History billion cell sprinkle capsule (Culturelle) acetaminophen 325 mg tablet 650 mg PO Q4 PRN Fever 09/16/23 09/16/23 History (Tylenol) acetaminophen 650 mg 1,300 mg PO AMHS 09/16/23 09/16/23 History tablet,extended release albuterol sulfate 90 mcg/actuation 2 puff inhalation Q4 PRN Shortness 09/16/23 09/16/23 History aerosol inhaler Of Breath Or Wheezing bismuth subsalicylate 262 mg 1 tab PO Q12 PRN .UPSET STOMACH 09/16/23 09/16/23 History chewable tablet (Pepto-Bismol) carboxymethylcellulose sodium 0.5 1 drp OPB BID 09/16/23 09/16/23 History % eye drops (Refresh Tears) cholecalciferol (vitamin D3) 25 25 mcg PO QAM 09/16/23 09/16/23 History mcg (1,000 unit) capsule (Vitamin D3) clonazepam 0.5 mg tablet 0.5 mg PO TID 09/16/23 09/16/23 History diphenhydramine HCl 12.5 mg 12.5 mg PO BID PRN Itching 09/16/23 09/16/23 History chewable tablet dulaglutide 3 mg/0.5 mL 3 mg subcut .WEEKLY 09/16/23 09/16/23 History subcutaneous pen injector (Trulicity) finasteride 5 mg tablet 5 mg PO QAM 09/16/23 09/16/23 History food supplemt, lactose-reduced 1 ea PO BID 09/16/23 09/16/23 History furosemide 20 mg tablet 20 mg PO DAILY 09/16/23 09/16/23 History gabapentin 300 mg capsule 300 mg PO TID 09/16/23 09/16/23 History glimepiride 1 mg tablet 1 mg PO DAILY 09/16/23 09/16/23 History guaifenesin 100 mg/5 mL oral liquid 200 mg PO TID PRN Cough 09/16/23 09/16/23 History guaifenesin 600 mg tablet, 600 mg PO Q12H 09/16/23 09/16/23 History extended release 12 hr (Mucinex) loperamide 2 mg capsule (Imodium 2 mg PO TID PRN Diarrhea 09/16/23 09/16/23 History A-D) loratadine 10 mg tablet 10 mg PO DAILY 09/16/23 09/16/23 History magnesium oxide 400 mg PO BID 09/16/23 09/16/23 History metformin 1,000 mg tablet 1,000 mg PO BID 09/16/23 09/16/23 History metoprolol tartrate 25 mg tablet 12.5 mg PO BID 09/16/23 09/16/23 History multivitamin 1 tab PO DAILY 09/16/23 09/16/23 History neomycin-bacitracn Zn-polymyxn 3.5 1 applic topical DIRECTED WOUND 09/16/23 09/16/23 History mg-400 unit-5,000 unit top oint CARE pkt (Neosporin(hdm-lor-idpos)) oxcarbazepine 300 mg tablet 300 mg PO BID 09/16/23 09/16/23 History pentoxifylline 400 mg 400 mg PO TID 09/16/23 09/16/23 History tablet,extended release polyethylene glycol 3350 17 gram 17 g PO DIRECTED PRN 09/16/23 09/16/23 History oral powder packet (Miralax) Constipation quetiapine 100 mg tablet 100 mg PO TID 09/16/23 09/16/23 History sertraline 50 mg tablet 50 mg PO DAILY 09/16/23 09/16/23 History simvastatin 40 mg tablet 40 mg PO QPM 09/16/23 09/16/23 History tamsulosin 0.4 mg capsule 0.4 mg PO DAILY 09/16/23 09/16/23 History trazodone 50 mg tablet 50 mg PO HS 09/16/23 09/16/23 History umeclidinium 62.5 mcg/actuation 1 inh inhalation DAILY 09/16/23 09/16/23 History blister powder for inhalation (Incruse Ellipta) Patient History Medical History Severe sepsis Pica Asthma Aortic stenosis Mild per 09/2021 ECHO [place] (obstructive sleep apnea) Per records Peroneal palsy DJD (degenerative joint disease) Neuropathy TMJ (temporomandibular joint disorder) Venous insufficiency History of COVID-19 Tested positive 09/21/21 [facility] ([facility] Sinus congestion only. no hospitalization. No current problems. Hyperlipidemia Depression Anxiety Osteoporosis Scoliosis GERD (gastroesophageal reflux disease) Diabetes mellitus, type 2 Chronic obstructive pulmonary disease Well controlled > hasnt used res inh for 2 yrs Cerebral palsy Neck pain Hypotension Elevated troponin Hyperglycemia Presence of IVC filter Placed in 1997 per records [place] (obstructive sleep apnea) PVD (peripheral vascular disease) Diabetes mellitus, type II GERD (gastroesophageal reflux disease) COPD (chronic obstructive pulmonary disease) Intellectual disability Lives at [facility] facility Tibia fracture Pneumonia Hospital-acquired pneumonia Femoral condyle fracture CAP (community acquired pneumonia) Surgical History S/P cataract surgery Left and Right History of colonoscopy History of tooth extraction History of cholecystectomy Family History Father Coronary heart disease Social History Smoking Status: Former smoker packs per day: 30; Second Hand Exposure: No; Do You Dip or Chew Tobacco: No; Hx Alcohol Use: No Hx Substance Use: No Preferred Language: Czech Communication Ability: Unable Communication Ability Comment: MR LIVES AT [facility] Communication Tools: Other Visual Impairment: No Limitations Hearing Ability: Use of Hearing Aid Carcass Washer Required: No Beliefs That Will Affect Care: None marital status: Single marital status details: [facility] Current Living Situation: Personal Care Facility Current Living Situation Comment: detention current occupational status: disabled How many Children do You have: 0 Other Information That Helps Us Care for You: No Feels Safe at Home: Yes Safety Concerns: Feels Safe At This Time Diet: diabetic caffeine: No Assistive Devices: Mechanical Lift and Wheelchair Physical Exam Psychiatric: The patient gives no indication that he is oriented to time, place or situation. He does respond when I call out his name, "John." Disheveled, but clean and appropriately dressed in a hospital gown. Poor eye contact Abnormal involuntary movements with choreal athetoid movements of his upper extremities, head and neck. His tongue also demonstrates abnormal involuntary movements with frequent and rapid extrusions through the mouth. Highly dysarthric. At times, his verbalizations are essentially guttural utterances Somewhat labile. He registers frustration fairly easily, but then smiles broadly appropriately. The patient was unable to respond to questions regarding mood Unable to assess. The patient is essentially nonverbal Unable to assess. The patient does not one-point signaled that he is "hot," and did not seem to be appreciative when I provided him with some ice water. At one point, he looked at his window, blink, and seem to say the word "up." However, when I raised his blinds, he became agitated, and I recognized that he might have meant "down." He calm down when I lowered the blinds so that the light was no longer shining on him. Unable to respond to questions. Unable to respond to questions. The patient does not appear to be hallucinating Based upon my observations today, based upon the information provided in the medical record, I would estimate that the patient's intellectual functioning falls in the moderately severe range. Cerebral palsy and medication adverse effects may be contributing. Formal testing of memory was not possible. Moderately severe intellectual disability Poor Poor Vital Signs (Past 24 Hours): Last Vital Signs Temp 37.4 C 09/28/23 11:26 Pulse 75 09/28/23 11:26 Resp 16 09/28/23 11:26 BP 155/75 H 09/28/23 11:26 Pulse Ox 93 09/28/23 11:26 O2 Del Method Room Air 09/28/23 11:26 O2 Flow Rate 0 09/15/23 22:45 Physical Examination: The patient's physical examination and admission reviewed, as well as the admission assessment and recent progress notes. During my assessment of him today, he belched regularly throughout the time I spent with him, sometimes in a prolonged and loud fashion. Review of Systems Unobtainable due to cognitive status Results & Data (PSY) Diagnostic Findings The patient's presenting symptoms can best be explained by his nonpsychiatric diagnoses which include intellectual disability and cerebral palsy. Medications Administered Acetaminophen (Acetaminophen 325 Mg Tab) 650 mg PO Q4H PRN PRN Reason: Pain or Fever Stop: 10/16/23 04:11 Last Admin: 09/23/23 15:34 Dose: 650 mg Documented By: СЕРГЕЙ Admin: 09/23/23 07:08 Dose: 650 mg Documented By: Admin: 09/19/23 07:48 Dose: 650 mg Documented By: Admin: 09/17/23 21:29 Dose: 650 mg Documented By: Admin: 09/17/23 05:16 Dose: 650 mg Documented By: Admin: 09/16/23 20:12 Dose: 650 mg Documented By: KRISTIN Al Hydrox/Mg Hydrox/Simethicone (Aluminum/Magnesium Susp 30 Ml Udc) 15 ml PO Q6H PRN PRN Reason: Dyspepsia Stop: 10/20/23 15:42 Last Admin: 09/28/23 06:18 Dose: 15 ml Documented By: Admin: 09/21/23 11:25 Dose: 15 ml Documented By: Admin: 09/20/23 16:13 Dose: 15 ml Documented By: GEORGE Artificial Tears (Artificial Tears) 1 drops OP BID SEN Stop: 10/16/23 08:59 Last Admin: 09/28/23 08:59 Dose: 1 drops Documented By: Admin: 09/27/23 20:39 Dose: 1 drops Documented By: Admin: 09/27/23 08:13 Dose: 1 drops Documented By: Admin: 09/26/23 20:39 Dose: 1 drops Documented By: Admin: 09/26/23 09:59 Dose: 1 drops Documented By: Admin: 09/25/23 20:04 Dose: 1 drops Documented By: Admin: 09/25/23 08:40 Dose: 1 drops Documented By: Admin: 09/24/23 20:23 Dose: 1 drops Documented By: Admin: 09/24/23 09:06 Dose: 1 drops Documented By: Admin: 09/23/23 20:45 Dose: 1 drops Documented By: Admin: 09/23/23 08:22 Dose: 1 drops Documented By: СЕРГЕЙ Admin: 09/22/23 21:07 Dose: 1 drops Documented By: Admin: 09/22/23 08:43 Dose: 1 drops Documented By: СЕРГЕЙ Admin: 09/21/23 21:49 Dose: 1 drops Documented By: Admin: 09/21/23 09:01 Dose: 1 drops Documented By: Admin: 09/20/23 21:11 Dose: 1 drops Documented By: Admin: 09/20/23 09:10 Dose: 1 drops Documented By: Admin: 09/19/23 20:57 Dose: 1 drops Documented By: Admin: 09/19/23 07:50 Dose: 1 drops Documented By: СРЕГЕЙ Admin: 09/18/23 21:33 Dose: 1 drops Documented By: RMJey Admin: 09/18/23 09:26 Dose: 1 drops Documented By: СЕРГЕЙ Admin: 09/17/23 21:31 Dose: 1 drops Documented By: Admin: 09/17/23 11:25 Dose: Not Given Documented By: Admin: 09/16/23 22:51 Dose: Not Given Documented By: Admin: 09/16/23 11:45 Dose: 1 drops Documented By: FARRAH Bismuth Subsalicylate (Bismuth Subsalicylate 262 Mg Chew) 1 tab PO Q12 PRN PRN Reason: .UPSET STOMACH Stop: 10/16/23 03:26 Last Admin: 09/28/23 09:03 Dose: 1 tab Documented By: Admin: 09/24/23 07:38 Dose: 1 tab Documented By: Admin: 09/23/23 08:26 Dose: 1 tab Documented By: СЕРГЕЙ Admin: 09/22/23 09:58 Dose: 1 tab Documented By: СЕРГЕЙ Admin: 09/20/23 21:23 Dose: 1 tab Documented By: Admin: 09/20/23 06:33 Dose: 1 tab Documented By: Admin: 09/19/23 20:55 Dose: 1 tab Documented By: Admin: 09/19/23 10:50 Dose: 1 tab Documented By: СЕРГЕЙ Admin: 09/18/23 21:31 Dose: 1 tab Documented By: Admin: 09/17/23 05:17 Dose: 1 tab Documented By: KRISTIN Clonazepam (Clonazepam 0.5 Mg Tab) 0.5 mg PO TID@0800,1600,2000 SEN Stop: 10/16/23 07:59 Last Admin: 09/26/23 20:38 Dose: 0.5 mg Documented By: Admin: 09/26/23 15:48 Dose: 0.5 mg Documented By: Admin: 09/26/23 09:59 Dose: 0.5 mg Documented By: Admin: 09/25/23 20:04 Dose: 0.5 mg Documented By: Admin: 09/25/23 15:54 Dose: 0.5 mg Documented By: Admin: 09/25/23 08:47 Dose: 0.5 mg Documented By: Admin: 09/24/23 20:23 Dose: 0.5 mg Documented By: Admin: 09/24/23 17:04 Dose: 0.5 mg Documented By: Admin: 09/24/23 09:14 Dose: 0.5 mg Documented By: Admin: 09/23/23 20:44 Dose: 0.5 mg Documented By: Admin: 09/23/23 15:34 Dose: 0.5 mg Documented By: Admin: 09/23/23 08:52 Dose: 0.5 mg Documented By: Admin: 09/22/23 21:07 Dose: 0.5 mg Documented By: Admin: 09/22/23 17:11 Dose: 0.5 mg Documented By: Admin: 09/22/23 08:42 Dose: 0.5 mg Documented By: Admin: 09/21/23 21:47 Dose: 0.5 mg Documented By: Admin: 09/21/23 17:59 Dose: Not Given Documented By: Admin: 09/21/23 08:55 Dose: 0.5 mg Documented By: Admin: 09/20/23 21:10 Dose: 0.5 mg Documented By: Admin: 09/20/23 16:13 Dose: 0.5 mg Documented By: Admin: 09/20/23 09:11 Dose: 0.5 mg Documented By: Admin: 09/19/23 20:54 Dose: 0.5 mg Documented By: Admin: 09/19/23 16:44 Dose: Not Given Documented By: Admin: 09/19/23 07:48 Dose: 0.5 mg Documented By: Admin: 09/18/23 21:37 Dose: 0.5 mg Documented By: Admin: 09/18/23 18:17 Dose: 0.5 mg Documented By: Admin: 09/18/23 09:26 Dose: 0.5 mg Documented By: Admin: 09/17/23 21:29 Dose: 0.5 mg Documented By: Admin: 09/17/23 14:52 Dose: 0.5 mg Documented By: Admin: 09/17/23 08:11 Dose: 0.5 mg Documented By: Admin: 09/16/23 20:12 Dose: 0.5 mg Documented By: Admin: 09/16/23 17:57 Dose: Not Given Documented By: Admin: 09/16/23 07:25 Dose: 0.5 mg Documented By: FARRAH Clotrimazole (Clotrimazole 1% Cr 15 Gm Tube) 1 appln EXT BID SEN Stop: 10/22/23 12:29 Last Admin: 09/28/23 09:03 Dose: 1 appln Documented By: Admin: 09/27/23 20:39 Dose: 1 appln Documented By: Admin: 09/27/23 08:13 Dose: 1 appln Documented By: Admin: 09/26/23 20:39 Dose: 1 appln Documented By: Admin: 09/26/23 09:59 Dose: 1 appln Documented By: Admin: 09/25/23 20:05 Dose: 1 appln Documented By: Admin: 09/25/23 08:40 Dose: 1 appln Documented By: Admin: 09/24/23 20:23 Dose: 1 appln Documented By: Admin: 09/24/23 09:06 Dose: 1 appln Documented By: Admin: 09/23/23 20:45 Dose: 1 appln Documented By: Admin: 09/23/23 08:22 Dose: 1 appln Documented By: СЕРГЕЙ Admin: 09/22/23 21:07 Dose: 1 appln Documented By: Admin: 09/22/23 13:32 Dose: 1 appln Documented By: СЕРГЕЙ Dextrose (Dextrose 50% 50 Ml Syringe) 25 - 50 ml IV UD PRN; Protocol PRN Reason: Hypoglycemia Protocol Stop: 10/16/23 02:56 Last Admin: 09/22/23 17:19 Dose: 50 ml Documented By: СЕРГЕЙ Admin: 09/21/23 17:53 Dose: 25 ml Documented By: GEORGE Finasteride (Finasteride 5 Mg Tab) 5 mg PO QAM SEN Stop: 10/16/23 08:59 Last Admin: 09/28/23 09:07 Dose: 5 mg Documented By: Admin: 09/27/23 08:14 Dose: 5 mg Documented By: Admin: 09/26/23 10:00 Dose: 5 mg Documented By: Admin: 09/25/23 08:42 Dose: 5 mg Documented By: Admin: 09/24/23 09:07 Dose: 5 mg Documented By: Admin: 09/23/23 08:21 Dose: 5 mg Documented By: Admin: 09/22/23 08:43 Dose: 5 mg Documented By: Admin: 09/21/23 08:59 Dose: 5 mg Documented By: Admin: 09/20/23 09:08 Dose: 5 mg Documented By: Admin: 09/19/23 07:49 Dose: 5 mg Documented By: Admin: 09/18/23 08:58 Dose: 5 mg Documented By: СЕРГЕЙ Admin: 09/17/23 08:06 Dose: 5 mg Documented By: Admin: 09/16/23 11:45 Dose: 5 mg Documented By: FARRAH Gabapentin (Gabapentin 300 Mg Cap) 300 mg PO TID SEN Stop: 10/16/23 08:59 Last Admin: 09/26/23 20:40 Dose: 300 mg Documented By: Admin: 09/26/23 15:45 Dose: 300 mg Documented By: Admin: 09/26/23 10:01 Dose: 300 mg Documented By: Admin: 09/25/23 20:05 Dose: 300 mg Documented By: Admin: 09/25/23 13:20 Dose: 300 mg Documented By: Admin: 09/25/23 08:41 Dose: 300 mg Documented By: Admin: 09/24/23 20:24 Dose: 300 mg Documented By: Admin: 09/24/23 14:04 Dose: 300 mg Documented By: Admin: 09/24/23 09:07 Dose: 300 mg Documented By: Admin: 09/23/23 20:47 Dose: 300 mg Documented By: Admin: 09/23/23 13:28 Dose: 300 mg Documented By: Admin: 09/23/23 08:21 Dose: 300 mg Documented By: Admin: 09/22/23 21:08 Dose: 300 mg Documented By: Admin: 09/22/23 13:07 Dose: 300 mg Documented By: Admin: 09/22/23 08:42 Dose: 300 mg Documented By: Admin: 09/21/23 21:49 Dose: 300 mg Documented By: Admin: 09/21/23 13:11 Dose: 300 mg Documented By: Admin: 09/21/23 08:56 Dose: 300 mg Documented By: Admin: 09/20/23 21:11 Dose: 300 mg Documented By: RMJey Admin: 09/20/23 14:47 Dose: 300 mg Documented By: Admin: 09/20/23 09:07 Dose: 300 mg Documented By: Admin: 09/19/23 20:57 Dose: 300 mg Documented By: Admin: 09/19/23 13:16 Dose: 300 mg Documented By: СЕРГЕЙ Admin: 09/19/23 07:49 Dose: 300 mg Documented By: СЕРГЕЙ Admin: 09/18/23 21:33 Dose: 300 mg Documented By: Admin: 09/18/23 14:31 Dose: 300 mg Documented By: СЕРГЕЙ Admin: 09/18/23 08:58 Dose: 300 mg Documented By: СЕРГЕЙ Admin: 09/17/23 21:32 Dose: 300 mg Documented By: Admin: 09/17/23 14:52 Dose: 300 mg Documented By: Admin: 09/17/23 08:06 Dose: 300 mg Documented By: Admin: 09/16/23 20:14 Dose: 300 mg Documented By: Admin: 09/16/23 17:57 Dose: Not Given Documented By: Admin: 09/16/23 11:45 Dose: 300 mg Documented By: FARRAH Magnesium Sulfate/Dextrose (Magnesium Sulfate / D5w) 1 gm in 100 mls @ 50 mls/hr IV Q2H SEN Stop: 09/28/23 12:59 Last Admin: 09/28/23 11:28 Dose: 50 mls/hr Documented By: Infusion: 09/28/23 11:28 Dose: Infused Documented By: Admin: 09/28/23 09:20 Dose: 50 mls/hr Documented By: EYAL Ceftriaxone Sodium 2,000 mg/ (Dextrose) 50 mls @ 100 mls/hr IV Q24H SEN; Protocol Stop: 10/08/23 08:59 Last Admin: 09/28/23 11:28 Dose: 100 mls/hr Documented By: EYAL Insulin Aspart (Insulin Aspart Per Unit Charge) 0 units SC ACHS SEN Stop: 10/18/23 11:29 Last Admin: 09/28/23 09:00 Dose: 1 units Documented By: EYAL Co-signed By: [id number] Admin: 09/27/23 20:40 Dose: 1 units Documented By: SUSAN Co-signed By: MIREILLE Admin: 09/27/23 18:14 Dose: 3 units Documented By: GRAEME Co-signed By: TEVIN Admin: 09/27/23 13:03 Dose: 1 units Documented By: GRAEME Co-signed By: TEVIN Admin: 09/27/23 09:39 Dose: 1 units Documented By: GRAEME Co-signed By: NEAL Admin: 09/26/23 20:38 Dose: 1 units Documented By: SUSAN Co-signed By: DEONDRE Admin: 09/26/23 18:38 Dose: 1 units Documented By: ANUJA Co-signed By: NEAL Admin: 09/26/23 13:48 Dose: 1 units Documented By: ANUJA Co-signed By: FRANCISCO JAVIER Admin: 09/26/23 09:58 Dose: 1 units Documented By: ANUJA Co-signed By: KALIE Admin: 09/25/23 21:37 Dose: 1 units Documented By: BLADE Co-signed By: EYAL(2) Admin: 09/25/23 17:57 Dose: 1 units Documented By: MG Co-signed By: KISHOR Admin: 09/25/23 13:12 Dose: 1 units Documented By: MG Co-signed By: AMS Admin: 09/25/23 09:13 Dose: 2 units Documented By: MG Co-signed By: TLG Admin: 09/24/23 20:24 Dose: 1 units Documented By: ALLAN Co-signed By: EYAL(2) Admin: 09/24/23 18:30 Dose: Not Given Documented By: MG Co-signed By: AMS Admin: 09/24/23 12:47 Dose: 3 units Documented By: MG Co-signed By: AMS Admin: 09/24/23 09:14 Dose: 2 units Documented By: MG Co-signed By: KS Admin: 09/23/23 20:45 Dose: Not Given Documented By: MCS Co-signed By: RISHI Admin: 09/23/23 17:59 Dose: 5 units Documented By: MES Co-signed By: TMP Admin: 09/23/23 12:46 Dose: Not Given Documented By: Admin: 09/23/23 08:51 Dose: 4 units Documented By: СЕРГЕЙ Co-signed By: LISA Admin: 09/22/23 21:06 Dose: 3 units Documented By: KMMaya Co-signed By: MITCH Admin: 09/22/23 17:52 Dose: Not Given Documented By: СЕРГЕЙ Admin: 09/22/23 13:05 Dose: 4 units Documented By: СЕРГЕЙ Co-signed By: KISHOR Admin: 09/22/23 08:49 Dose: Not Given Documented By: СЕРГЕЙ Admin: 09/21/23 21:47 Dose: 2 units Documented By: MOLLY Co-signed By: ALLAN Admin: 09/21/23 18:00 Dose: Not Given Documented By: Admin: 09/21/23 13:10 Dose: 6 units Documented By: GEORGE Co-signed By: YESSI Admin: 09/21/23 09:02 Dose: Not Given Documented By: Admin: 09/20/23 21:12 Dose: 1 units Documented By: MOLLY Co-signed By: LAURA Admin: 09/20/23 18:07 Dose: 2 units Documented By: GEORGE Co-signed By: VANDA Admin: 09/20/23 13:09 Dose: 4 units Documented By: GEORGE Co-signed By: JOHN Admin: 09/20/23 09:05 Dose: 4 units Documented By: GEORGE Co-signed By: JOHN Admin: 09/19/23 20:54 Dose: 3 units Documented By: MOLLY Co-signed By: LAURA Admin: 09/19/23 18:22 Dose: Not Given Documented By: СЕРГЕЙ Admin: 09/19/23 13:19 Dose: 8 units Documented By: СЕРГЕЙ Co-signed By: JOHN Admin: 09/19/23 10:12 Dose: 3 units Documented By: СЕРГЕЙ Co-signed By: JOHN Admin: 09/18/23 21:30 Dose: 2 units Documented By: MOLLY Co-signed By: LAURA Admin: 09/18/23 18:16 Dose: 1 units Documented By: СЕРГЕЙ Co-signed By: KALIE Admin: 09/18/23 14:30 Dose: 2 units Documented By: СЕРГЕЙ Co-signed By: KALIE Insulin Glargine (Lantus Per Unit Charge) 5 units SQ HS SEN Stop: 10/16/23 20:59 Last Admin: 09/27/23 20:40 Dose: 5 units Documented By: SUSAN Co-signed By: MIREILLE Admin: 09/26/23 20:38 Dose: 5 units Documented By: SUSAN Co-signed By: DEONDRE Admin: 09/25/23 21:36 Dose: 5 units Documented By: BLADE Co-signed By: EYAL(2) Admin: 09/24/23 20:24 Dose: 5 units Documented By: ALLAN Co-signed By: EYAL(2) Admin: 09/23/23 20:44 Dose: 5 units Documented By: VERÓNICA Co-signed By: RISHI Admin: 09/22/23 21:06 Dose: 5 units Documented By: SUSAN Co-signed By: MITCH Admin: 09/21/23 21:47 Dose: 5 units Documented By: MOLLY Co-signed By: ALLAN Admin: 09/20/23 21:12 Dose: 5 units Documented By: MOLLY Co-signed By: LAURA Admin: 09/19/23 20:54 Dose: 5 units Documented By: MOLLY Co-signed By: LAURA Admin: 09/18/23 21:30 Dose: 5 units Documented By: MOLLY Co-signed By: LAURA Admin: 09/17/23 21:31 Dose: 5 units Documented By: JEB Co-signed By: MIREILLE Admin: 09/16/23 22:34 Dose: Not Given Documented By: DMM Magnesium Chloride (Magnesium Chloride W/Calcium 64mg Delayed Rel Tab) 64 mg PO QAM SEN Stop: 10/26/23 08:59 Last Admin: 09/28/23 09:04 Dose: 64 mg Documented By: Admin: 09/27/23 08:14 Dose: 64 mg Documented By: Admin: 09/26/23 11:17 Dose: 64 mg Documented By: ANUJA Metoprolol Tartrate (Metoprolol Tartrate 25 Mg Tab) 12.5 mg PO BID SEN Stop: 10/16/23 08:59 Last Admin: 09/21/23 09:02 Dose: Not Given Documented By: Admin: 09/20/23 21:11 Dose: Not Given Documented By: Admin: 09/20/23 10:51 Dose: Not Given Documented By: Admin: 09/19/23 20:56 Dose: Not Given Documented By: Admin: 09/19/23 07:52 Dose: 12.5 mg Documented By: СЕРГЕЙ Admin: 09/18/23 21:33 Dose: Not Given Documented By: Admin: 09/18/23 09:01 Dose: 12.5 mg Documented By: СЕРГЕЙ Admin: 09/17/23 21:33 Dose: 12.5 mg Documented By: Admin: 09/17/23 11:26 Dose: Not Given Documented By: Admin: 09/16/23 20:15 Dose: 12.5 mg Documented By: Admin: 09/16/23 11:45 Dose: 12.5 mg Documented By: FARRAH Miscellaneous (Carbohydrates For Hypoglycemia ) 15 - 30 gm PO UD PRN PRN Reason: Hypoglycemia Protocol Stop: 10/16/23 02:56 Last Admin: 09/24/23 17:21 Dose: 15 gm Documented By: Admin: 09/21/23 17:32 Dose: 15 gm Documented By: GEORGE Multivitamins (Multivitamin Tab) 1 tab PO DAILY SEN Stop: 10/16/23 08:59 Last Admin: 09/28/23 09:04 Dose: 1 tab Documented By: Admin: 09/27/23 08:15 Dose: 1 tab Documented By: Admin: 09/26/23 10:02 Dose: 1 tab Documented By: Admin: 09/25/23 09:33 Dose: 1 tab Documented By: Admin: 09/24/23 09:06 Dose: 1 tab Documented By: Admin: 09/23/23 08:21 Dose: 1 tab Documented By: СЕРГЕЙ Admin: 09/22/23 08:43 Dose: 1 tab Documented By: СЕРГЕЙ Admin: 09/21/23 09:01 Dose: 1 tab Documented By: Admin: 09/20/23 09:07 Dose: 1 tab Documented By: Admin: 09/19/23 07:49 Dose: 1 tab Documented By: СЕРГЕЙ Admin: 09/18/23 08:58 Dose: 1 tab Documented By: СЕРГЕЙ Admin: 09/17/23 08:06 Dose: 1 tab Documented By: Admin: 09/16/23 11:45 Dose: 1 tab Documented By: FARRAH Oxcarbazepine (Oxcarbazepine 150 Mg Tablet) 300 mg PO BID SEN Stop: 10/16/23 08:59 Last Admin: 09/26/23 20:40 Dose: 300 mg Documented By: Admin: 09/26/23 10:02 Dose: 300 mg Documented By: Admin: 09/25/23 20:06 Dose: 300 mg Documented By: Admin: 09/25/23 08:41 Dose: 300 mg Documented By: Admin: 09/24/23 20:24 Dose: 300 mg Documented By: Admin: 09/24/23 09:08 Dose: 300 mg Documented By: Admin: 09/23/23 20:48 Dose: 300 mg Documented By: Admin: 09/23/23 08:21 Dose: 300 mg Documented By: Admin: 09/22/23 21:08 Dose: 300 mg Documented By: Admin: 09/22/23 08:42 Dose: 300 mg Documented By: Admin: 09/21/23 21:49 Dose: 300 mg Documented By: Admin: 09/21/23 08:59 Dose: 300 mg Documented By: Admin: 09/20/23 21:10 Dose: 300 mg Documented By: Admin: 09/20/23 09:08 Dose: 300 mg Documented By: Admin: 09/19/23 20:55 Dose: 300 mg Documented By: Admin: 09/19/23 07:49 Dose: 300 mg Documented By: Admin: 09/18/23 21:32 Dose: 300 mg Documented By: Admin: 09/18/23 08:57 Dose: 300 mg Documented By: Admin: 09/17/23 21:32 Dose: 300 mg Documented By: Admin: 09/17/23 11:25 Dose: Not Given Documented By: Admin: 09/16/23 20:13 Dose: 300 mg Documented By: Admin: 09/16/23 11:45 Dose: 300 mg Documented By: FARRAH Pantoprazole Sodium (Pantoprazole 40 Mg Tab) 40 mg PO QAM SEN Stop: 10/19/23 12:44 Last Admin: 09/28/23 09:07 Dose: 40 mg Documented By: Admin: 09/27/23 08:14 Dose: 40 mg Documented By: Admin: 09/26/23 10:03 Dose: 40 mg Documented By: Admin: 09/25/23 08:42 Dose: 40 mg Documented By: Admin: 09/24/23 09:07 Dose: 40 mg Documented By: Admin: 09/23/23 08:21 Dose: 40 mg Documented By: Admin: 09/22/23 08:43 Dose: 40 mg Documented By: Admin: 09/21/23 08:59 Dose: 40 mg Documented By: Admin: 09/20/23 09:09 Dose: 40 mg Documented By: Admin: 09/19/23 13:19 Dose: 40 mg Documented By: СЕРГЕЙ Quetiapine Fumarate (Quetiapine Fumarate 100 Mg Tablet) 100 mg PO TID SEN Stop: 10/16/23 08:59 Last Admin: 09/26/23 20:40 Dose: 100 mg Documented By: Admin: 09/26/23 15:45 Dose: 100 mg Documented By: KJCorbin Admin: 09/26/23 10:02 Dose: 100 mg Documented By: Admin: 09/25/23 20:07 Dose: 100 mg Documented By: Admin: 09/25/23 13:20 Dose: 100 mg Documented By: Admin: 09/25/23 08:41 Dose: 100 mg Documented By: Admin: 09/24/23 20:25 Dose: 100 mg Documented By: Admin: 09/24/23 14:04 Dose: 100 mg Documented By: Admin: 09/24/23 09:07 Dose: 100 mg Documented By: Admin: 09/23/23 20:47 Dose: 100 mg Documented By: Admin: 09/23/23 13:28 Dose: 100 mg Documented By: Admin: 09/23/23 08:20 Dose: 100 mg Documented By: Admin: 09/22/23 21:07 Dose: 100 mg Documented By: Admin: 09/22/23 13:07 Dose: 100 mg Documented By: Admin: 09/22/23 08:42 Dose: 100 mg Documented By: СЕРГЕЙ Admin: 09/21/23 21:48 Dose: 100 mg Documented By: Admin: 09/21/23 13:11 Dose: 100 mg Documented By: Admin: 09/21/23 08:59 Dose: 100 mg Documented By: Admin: 09/20/23 21:10 Dose: 100 mg Documented By: Admin: 09/20/23 14:47 Dose: 100 mg Documented By: Admin: 09/20/23 09:08 Dose: 100 mg Documented By: Admin: 09/19/23 20:56 Dose: 100 mg Documented By: Admin: 09/19/23 13:16 Dose: 100 mg Documented By: Admin: 09/19/23 07:50 Dose: 100 mg Documented By: Admin: 09/18/23 21:31 Dose: 100 mg Documented By: Admin: 09/18/23 14:31 Dose: 100 mg Documented By: Admin: 09/18/23 08:57 Dose: 100 mg Documented By: Admin: 09/17/23 21:51 Dose: 100 mg Documented By: Admin: 09/17/23 14:53 Dose: 100 mg Documented By: Admin: 09/17/23 08:05 Dose: 100 mg Documented By: Admin: 09/16/23 20:14 Dose: 100 mg Documented By: Admin: 09/16/23 17:57 Dose: Not Given Documented By: Admin: 09/16/23 11:45 Dose: 100 mg Documented By: FARRAH Sertraline HCl (Sertraline Hcl 50 Mg Tablet) 50 mg PO DAILY SEN Stop: 10/16/23 08:59 Last Admin: 09/28/23 09:06 Dose: 50 mg Documented By: Admin: 09/27/23 08:15 Dose: 50 mg Documented By: Admin: 09/26/23 10:03 Dose: 50 mg Documented By: Admin: 09/25/23 08:42 Dose: 50 mg Documented By: Admin: 09/24/23 09:07 Dose: 50 mg Documented By: Admin: 09/23/23 08:22 Dose: 50 mg Documented By: Admin: 09/22/23 08:43 Dose: 50 mg Documented By: Admin: 09/21/23 08:55 Dose: 50 mg Documented By: Admin: 09/20/23 09:09 Dose: 50 mg Documented By: Admin: 09/19/23 07:48 Dose: 50 mg Documented By: Admin: 09/18/23 08:58 Dose: 50 mg Documented By: Admin: 09/17/23 08:05 Dose: 50 mg Documented By: Admin: 09/16/23 11:45 Dose: 50 mg Documented By: FARRAH Simethicone (Simethicone 80 Mg Chew) 80 mg PO Q6H PRN PRN Reason: Flatulence Stop: 10/26/23 13:15 Last Admin: 09/28/23 09:05 Dose: 80 mg Documented By: Admin: 09/27/23 23:29 Dose: 80 mg Documented By: Admin: 09/26/23 14:34 Dose: 80 mg Documented By: ANUJA Simvastatin (Simvastatin 40 Mg Tab) 40 mg PO QPM SEN Stop: 10/16/23 20:59 Last Admin: 09/27/23 20:41 Dose: 40 mg Documented By: Admin: 09/26/23 20:41 Dose: 40 mg Documented By: Admin: 09/25/23 20:07 Dose: 40 mg Documented By: Admin: 09/24/23 20:25 Dose: 40 mg Documented By: Admin: 09/23/23 20:48 Dose: 40 mg Documented By: Admin: 09/22/23 21:07 Dose: 40 mg Documented By: Admin: 09/21/23 21:48 Dose: 40 mg Documented By: Admin: 09/20/23 21:10 Dose: 40 mg Documented By: RMJey Admin: 09/19/23 20:55 Dose: 40 mg Documented By: Admin: 09/18/23 21:32 Dose: 40 mg Documented By: Admin: 09/17/23 21:32 Dose: 40 mg Documented By: Admin: 09/16/23 20:13 Dose: 40 mg Documented By: RKISTIN Tamsulosin HCl (Tamsulosin Hcl 0.4 Mg Cap) 0.4 mg PO DAILY SEN Stop: 10/16/23 08:59 Last Admin: 09/28/23 09:04 Dose: 0.4 mg Documented By: Admin: 09/27/23 08:14 Dose: 0.4 mg Documented By: Admin: 09/26/23 10:03 Dose: 0.4 mg Documented By: Admin: 09/25/23 08:42 Dose: 0.4 mg Documented By: Admin: 09/24/23 09:06 Dose: 0.4 mg Documented By: Admin: 09/23/23 08:21 Dose: 0.4 mg Documented By: СЕРГЕЙ Admin: 09/22/23 08:43 Dose: 0.4 mg Documented By: СЕРГЕЙ Admin: 09/21/23 08:56 Dose: 0.4 mg Documented By: Admin: 09/20/23 09:08 Dose: 0.4 mg Documented By: Admin: 09/19/23 07:50 Dose: 0.4 mg Documented By: СЕРГЕЙ Admin: 09/18/23 08:57 Dose: 0.4 mg Documented By: СЕРГЕЙ Admin: 09/17/23 08:06 Dose: 0.4 mg Documented By: Admin: 09/16/23 11:45 Dose: 0.4 mg Documented By: FARRAH Trazodone HCl (Trazodone Hcl 50 Mg Tab) 50 mg PO HS SEN Stop: 10/16/23 20:59 Last Admin: 09/26/23 20:38 Dose: 50 mg Documented By: Admin: 09/25/23 20:08 Dose: 50 mg Documented By: Admin: 09/24/23 20:45 Dose: 50 mg Documented By: Admin: 09/23/23 20:44 Dose: 50 mg Documented By: Admin: 09/22/23 21:07 Dose: 50 mg Documented By: Admin: 09/21/23 21:47 Dose: 50 mg Documented By: Admin: 09/20/23 21:10 Dose: 50 mg Documented By: RMJey Admin: 09/19/23 20:54 Dose: 50 mg Documented By: Admin: 09/18/23 21:37 Dose: 50 mg Documented By: RMJey Admin: 09/17/23 21:30 Dose: 50 mg Documented By: Admin: 09/16/23 20:14 Dose: 50 mg Documented By: KRISTIN Umeclidinium [place] (Umeclidinium [place] 62.5mcg/Blister 7 Puffs/Inhaler) 1 puffs INH DAILY SEN Stop: 10/16/23 08:59 Last Admin: 09/28/23 09:03 Dose: 1 puffs Documented By: Admin: 09/27/23 08:15 Dose: 1 puffs Documented By: Admin: 09/26/23 10:01 Dose: 1 puffs Documented By: Admin: 09/25/23 08:40 Dose: 1 puffs Documented By: Admin: 09/24/23 11:13 Dose: 1 puffs Documented By: Admin: 09/23/23 13:27 Dose: Not Given Documented By: Admin: 09/22/23 08:44 Dose: 1 puffs Documented By: Admin: 09/21/23 08:59 Dose: 1 puffs Documented By: Admin: 09/20/23 09:10 Dose: 1 puffs Documented By: Admin: 09/19/23 07:50 Dose: 1 puffs Documented By: Admin: 09/18/23 09:00 Dose: 1 puffs Documented By: СЕРГЕЙ Admin: 09/17/23 08:07 Dose: 1 puffs Documented By: Admin: 09/16/23 11:45 Dose: 1 puffs Documented By: SW[place] [address] IN/OBS CONSULT LVL 4,60M Patient Type New History Expanded Problem Focused Exam Expanded Problem Focused Medical Decision Making Moderate Complexity Diagnoses Nausea vomiting and diarrhea R11.2; R19.7 Ileus K56.7 Gastroenteritis K52.9 Cerebral palsy G80.9 CHF exacerbation I50.9 Intellectual disability F79 Time Spent (min) 70
[2023-09-28] MEDS: PIPERACILLIN/TAZOBACTAM 4.5 GM in DEXTROSE 5% MINI-B 100 ML IV SCH (14:10)
[2023-09-28] MEDS ORDERED: traZODone HCL 50 MG TAB PO PRN (15:48)
--- NOTE | 2023-09-28 15:49 | Hospitalist Progress Note ---
Date of Service September 28, 2023 Assessment & Plan (1) Ileus: Plan SBO versus ileus: Likely secondary to gastroenteritis Admitting CT abdomen/pelvis suggestive of ileus Repeat CT head scan of the abdomen pelvis did not show any intestinal obstruction. General surgery evaluated, appreciate recommendation. Patient moving bowels okay, eating ok. No nausea or vomiting. Patient remained stable without abdominal distention. Gastroenteritis: Possible gastroenteritis at presentation. Was with nausea and vomiting. Currently feeling much better, c diff negative. Hypoglycemic episode followed by unresponsive episode 09/22/2023: Status post hypoglycemia protocol with improvement. Continue to monitor. Likely metabolic encephalopathy /2 Comp UTI: overnight 09/26-09/27; was bradycardic, low bp and SaO2 in 80s on 2L NC O2. Neuropsych meds held, UA s/o uti, atb started, UCx w/ GNB. Psy consult to assist w/ neuropsych meds Mx/recommendation --appreciate recs 09/28. Will gradually resume meds w/ psy recs. UTI: see above, zosyn 09/27. f/u Cx. zosyn to rocephin 09/28 Bradycardia: metorprolol on hold. resume as able. General distressful appearance: at baseline per records. Other chronic medical conditions: Continue with/resume home meds as and when able. Chronic diastolic heart failure (EF 60-65%, TTE 2022), patient on dry side PAF not on anticoagulation due to fall risk, patient NSR mild PVD on Pentoxifylline Cerebral palsy/Klinefelter syndrome, intellectual disability per records - stable Diabetes mellitus type 2: Sliding scale insulin while in hospital. COPD: Not in acute exacerbation. Hypomagnesemia: Monitor and replete, appears resolved. Chronic hyponatremia: Patient at baseline, continue to monitor. DVT prophylaxis. SCDs Re: Thrombocytopenia, hematoma DNR Awaiting placement. Admission and Anticipated Discharge Date Admission Date: September 16, 2023 Subjective Patient was seen and examined at bedside. Patient was lying in bed, on room air, NAD, reports being in pain overall which appears to be his baseline. Per RN, patient eating okay, moving bowels okay. Of note, Overnight of 09/26-09/27, pt was code purple (lethargic, SaO2 in 80s on 2L NC O2 and low BP, bradycardic), UA s/o infxn, atb started, UCx sent. BSG in 130s. Physical Exam Physical Exam: GENERAL: Alert and awake. NAD, on RA. HEENT: No pallor, no icterus. Pupils equal, round and reactive to light. Oral mucosa moist. NECK: No JVD, no neck masses. HEART: S1 and S2 heard. Regular rate and rhythm. + murmur, no gallop. RESPIRATORY SYSTEM: Normal AP diameter. No accessory muscle use. No wheezing, no crackles. ABDOMEN: Soft, bowel sounds present, nontender, no distention. CENTRAL NERVOUS SYSTEM: No facial droop. Speech is clear. Obeys simple commands. Moves extremities. EXTREMITIES: Trace BLE edema, no erythema seen. Urinary catheter with light yellow urine collection noted. Results & Data Results & Data Vital Signs (Past 12 Hours) Vital Signs Temp Pulse Resp BP Pulse Ox O2 Del Method 09/28/23 11:26 37.4 C 75 16 155/75 H 93 Room Air 09/28/23 07:51 37.0 C 63 15 113/66 96 Room Air
[2023-09-28] MEDS: clonazePAM 0.5 MG TAB PO SCH ×2 (17:19→21:45)
--- NOTE | 2023-09-28 18:00 | Communication Note ---
Date of Service: September 28, 2023 Clarification: Plan/Recommendation: *Continue clonazepam without dose change. *Reduce quetiapine from a dose of 300 mg 3 times a day to a dose of 100 mg 3 times a day for for 3 days, and then redosed the dose, as tolerated, to a dose of 100 mg twice a day, and then, if tolerated, discontinue. *Consider lowering the dose of Trileptal. This is recommended to occur over the course of 4 weeks. I would not lower the dose of this medication if it is being used to treat his seizure disorder, including complex partial seizures. However, it would be reasonable to try temporarily discontinuing this medication with a plan for as needed at bedtime for agitation or insomnia. A reasonable taper schedule for Trileptal would be: Lower the dose over the course of 4 weeks. This can be accomplished by using the oral suspension form of oxcarbazepine, or, albeit with some risk, the tablet dose may be tapered from 300 mg twice daily to a dose of 150 mg in the morning and 300 mg in the afternoon or evening for a week, followed by a dose reduction of another 150 mg; i.e., 150 mg twice daily for another week. The dose could then be decreased to 75 mg twice a day (150 mg tablet is scored) for another week, and finally to 75 mg once a day before discontinuing it after 3 more days. *Trazodone may be contributing to the patient's abdominal discomfort and other GI complaints. He is not on a high dose of this medication and I think that it is most likely to be causing significant adverse effects, but you could safely discontinue it and observe for increased nighttime anxiety and insomnia.
[2023-09-28] MEDS: LANTUS PER UNIT CHARGE SQ SCH (21:43)
[2023-09-28] MEDS: SIMVASTATIN 40 MG TAB PO SCH (21:46)
[2023-09-28] MEDS: OXcarbazepine 150 MG TABLET PO SCH (21:52)
[2023-09-28] MEDS: QUEtiapine FUMARATE 100 MG TABLET PO SCH (21:56)
[2023-09-28] MEDS: METOPROLOL TARTRATE 25 MG TAB PO SCH (22:29)
[2023-09-29 07:28] LABS: BUN Creatinine Ratio 13.2 (10-20); Calcium 9.4 mg/dl (8.6-10.3); Creatinine Clr Calc Pharmacy 114.4 ml/min; Est GFR (African American) 125.1 ml/min; Magnesium 1.7 mg/dl (1.7-2.4); Potassium 4.3 mmol/L (3.5-5.1)
[2023-09-29] MEDS: clonazePAM 0.5 MG TAB PO SCH ×3 (09:07→20:13)
[2023-09-29] MEDS: cefTRIAXone SODIUM 2,000 MG in DEXTROSE 5 % MINI-B 50 ML IV SCH (09:07)
[2023-09-29] MEDS: ARTIFICIAL TEARS OP SCH ×2 (09:07→20:13)
[2023-09-29] MEDS: FINASTERIDE 5 MG TAB PO SCH (09:08)
[2023-09-29] MEDS: METOPROLOL TARTRATE 25 MG TAB PO SCH ×2 (09:09→20:15)
[2023-09-29] MEDS: MAGNESIUM CHLORIDE W/CALCIUM 64MG DELAYED REL TAB PO SCH (09:09)
[2023-09-29] MEDS: MULTIVITAMIN TAB PO SCH (09:10)
[2023-09-29] MEDS: SERTRALINE HCL 50 MG TABLET PO SCH (09:11)
[2023-09-29] MEDS: PANTOprazole 40 MG TAB PO SCH (09:11)
[2023-09-29] MEDS: TAMSULOSIN HCL 0.4 MG CAP PO SCH (09:11)
[2023-09-29] MEDS: UMECLIDINIUM BROMIDE 62.5MCG/BLISTER 7 PUFFS/INHALER INH SCH (09:11)
[2023-09-29] MEDS: SIMETHICONE 80 MG CHEW PO PRN ×2 (09:12→17:24)
[2023-09-29] MEDS: INSULIN ASPART PER UNIT CHARGE SC SCH ×4 (09:59→20:12)
[2023-09-29] MEDS: OXcarbazepine 150 MG TABLET PO SCH ×2 (10:54→20:14)
[2023-09-29] MEDS: CLOTRIMAZOLE 1% CR 15 GM TUBE EXT SCH ×2 (10:55→20:13)
[2023-09-29] MEDS: QUEtiapine FUMARATE 100 MG TABLET PO SCH ×2 (12:41→20:14)
[2023-09-29] MEDS: ALUMINUM/MAGNESIUM SUSP 30 ML UDC PO PRN (13:32)
--- NOTE | 2023-09-29 16:00 | Hospitalist Progress Note ---
Date of Service September 29, 2023 Assessment & Plan (1) Ileus: Plan SBO versus ileus: Likely secondary to gastroenteritis Admitting CT abdomen/pelvis suggestive of ileus Repeat CT head scan of the abdomen pelvis did not show any intestinal obstruction. General surgery evaluated, appreciate recommendation. Patient moving bowels okay, eating ok. No nausea or vomiting. Patient remained stable without abdominal distention. Gastroenteritis: Possible gastroenteritis at presentation. Was with nausea and vomiting. Currently feeling much better, c diff negative. Hypoglycemic episode followed by unresponsive episode 09/22/2023: Status post hypoglycemia protocol with improvement. Continue to monitor. Likely metabolic encephalopathy 2/2 Comp UTI: overnight 09/26-09/27; was bradycardic, low bp and SaO2 in 80s on 2L NC O2. Neuropsych meds held, UA s/o uti, atb started, UCx w/ GNB. Psy consult to assist w/ neuropsych meds Mx/recommendation --appreciate recs 09/28. Will gradually resume meds w/ psy recs. Plan to taper quetiapine to stop. UTI: see above, zosyn 09/27. f/u Cx. zosyn to rocephin 09/28 General distressful appearance: at baseline per records. Other chronic medical conditions: Continue with/resume home meds as and when able. Chronic diastolic heart failure (EF 60-65%, TTE 2022), patient on dry side PAF not on anticoagulation due to fall risk, patient NSR mild PVD on Pentoxifylline Cerebral palsy/Klinefelter syndrome, intellectual disability per records - stable Diabetes mellitus type 2: Sliding scale insulin while in hospital. COPD: Not in acute exacerbation. Hypomagnesemia: Monitor and replete, appears resolved. Chronic hyponatremia: Patient at baseline, continue to monitor. DVT prophylaxis. SCDs Re: Thrombocytopenia, hematoma DNR Awaiting placement. Admission and Anticipated Discharge Date Admission Date: September 16, 2023 Subjective Patient was seen and examined at bedside. Patient was lying in bed, on room air, NAD, reports being in pain overall which appears to be his baseline. Per RN, patient eating okay, moving bowels okay. Of note, Overnight of 09/26-09/27, pt was code purple (lethargic, SaO2 in 80s on 2L NC O2 and low BP, bradycardic), UA s/o infxn, atb started, UCx sent. BSG in 130s. Physical Exam Physical Exam: GENERAL: Alert and awake. NAD, on RA. HEENT: No pallor, no icterus. Pupils equal, round and reactive to light. Oral mucosa moist. NECK: No JVD, no neck masses. HEART: S1 and S2 heard. Regular rate and rhythm. + murmur, no gallop. RESPIRATORY SYSTEM: Normal AP diameter. No accessory muscle use. No wheezing, no crackles. ABDOMEN: Soft, bowel sounds present, nontender, no distention. CENTRAL NERVOUS SYSTEM: No facial droop. Speech is clear. Obeys simple commands. Moves extremities. EXTREMITIES: Trace BLE edema, no erythema seen. Urinary catheter with light yellow urine collection noted. Results & Data Results & Data Vital Signs (Past 12 Hours) Vital Signs Temp Pulse Pulse Resp BP Pulse Ox O2 Del Method 09/29/23 11:41 36.5 C 68 14 146/80 H 96 Room Air 09/29/23 08:02 36.4 C L 72 14 143/78 H 92 Room Air 09/29/23 08:00 60
[2023-09-29] MEDS: LANTUS PER UNIT CHARGE SQ SCH (20:12)
[2023-09-29] MEDS: SIMVASTATIN 40 MG TAB PO SCH (20:16)
[2023-09-30] MEDS: cefTRIAXone SODIUM 2,000 MG in DEXTROSE 5 % MINI-B 50 ML IV SCH (08:43)
[2023-09-30] MEDS: clonazePAM 0.5 MG TAB PO SCH ×3 (08:43→21:27)
[2023-09-30] MEDS: ARTIFICIAL TEARS OP SCH ×2 (08:43→21:29)
[2023-09-30] MEDS: CLOTRIMAZOLE 1% CR 15 GM TUBE EXT SCH ×2 (08:44→21:30)
[2023-09-30] MEDS: OXcarbazepine 150 MG TABLET PO SCH ×2 (08:44→21:26)
[2023-09-30] MEDS: TAMSULOSIN HCL 0.4 MG CAP PO SCH (08:44)
[2023-09-30] MEDS: QUEtiapine FUMARATE 100 MG TABLET PO SCH ×2 (08:45→21:27)
[2023-09-30] MEDS: PANTOprazole 40 MG TAB PO SCH (08:45)
[2023-09-30] MEDS: SERTRALINE HCL 50 MG TABLET PO SCH (08:45)
[2023-09-30] MEDS: FINASTERIDE 5 MG TAB PO SCH (08:45)
[2023-09-30] MEDS: METOPROLOL TARTRATE 25 MG TAB PO SCH ×2 (08:47→21:26)
[2023-09-30] MEDS: SIMETHICONE 80 MG CHEW PO PRN (08:48)
[2023-09-30] MEDS: MULTIVITAMIN TAB PO SCH (08:49)
[2023-09-30] MEDS: MAGNESIUM CHLORIDE W/CALCIUM 64MG DELAYED REL TAB PO SCH (08:49)
[2023-09-30] MEDS: UMECLIDINIUM BROMIDE 62.5MCG/BLISTER 7 PUFFS/INHALER INH SCH (08:49)
[2023-09-30] MEDS: INSULIN ASPART PER UNIT CHARGE SC SCH ×4 (09:18→21:37)
--- NOTE | 2023-09-30 12:47 | Psychiatric Progress Note ---
Date of Service September 30, 2023 Impression / Recommendations Impression 68 yo male admit with GI issues, appears to have dealt with chronic hyponatremia since at least April, worse in the context of illness though was on high dose of Seroquel with Trileptal (both can cause hyponatremia). He reportedly has baseline TD, will need to monitor for transient worsening with med changes (though typically Seroquel doesn't have withdrawal dyskinesias). Seems to have some emotional lability today but otherwise cooperative--patient has marked difficulty expressing self due to ID and is out of usual environment. Current BP may limit retitration of Seroquel and his metabolic encephalopathy is likely still resolving though I'm not familiar with patient's baseline. Overall, I spent a total of 45 minutes with this case, including review of chart, direct evaluation of the patient, coordination with nursing, and documentation. (1) Encephalopathy: Plan monitor on Seroquel 100 mg BID, would not reduce further at this time as taper was aggressive and need to monitor for emerging behaviors. Taper may need to be slowed. hold on any Trileptal taper assuming sodium stabilizing if breakthrough anxiety may need to temporarily increase Klonopin but can be sedating will follow and attempt to coordinate care with Dr. Vazquez. Risk Factors Assessment Do You Have Access To A Gun?: No (Patient is unable to answer, but presumably he does not.) Interval History Identifying Information 68 yo male with ID/CP, residing at [facility] prior to hospitalization for GI issues since 09/16/23. Seen by Dr. Chaney 09/28/23 for initial consultation. Chief Complaint patient tearful, unable to express self Review of Systems Notes patient unable to complete Subjective Subjective Patient was seen, interim progress reviewed. Seroquel rec. to be lowered from 300 mg TID to 100 mg TID following incident of 09/26-09/27 tony, desat to 80s on 2L O2. Currently ordered 100 mg BID. BP and P trending down despite decrease in Seroquel. Physical Exam Psychiatric Orientation: alert and oriented to person Apperance: + disheveled Eye Contact: + fair eye contact Motor Behavior: + abnormal motor movements (tongue movements, reported hx TD) Speech: + abnormal rate/rhythm/volume of speech (poorly articulated) Affect: + tearful affect Mood: + anxious mood Thought Process: + thought process not goal directed unable to assess did not appear to be responding to internal stimuli Cognition: + language not intact Vital Signs (Past 24 Hours) Last Vital Signs Temp 36.8 C 09/30/23 11:15 Pulse 55 L 09/30/23 11:15 Resp 20 09/30/23 11:15 BP 95/51 L 09/30/23 11:15 Pulse Ox 96 09/30/23 11:15 O2 Del Method Room Air 09/30/23 11:15 O2 Flow Rate 0 09/15/23 22:45 Results & Data ([facility]) Laboratory Results Laboratory Results - last 24 hr 09/29/23 09/29/23 09/30/23 17:24 20:02 08:14 POC Glucose 270 H 217 H 163 H 09/30/23 11:51 POC Glucose 206 H Current Inpatient Medications Current Inpatient Medications: Current Inpatient Medications Acetaminophen (Acetaminophen 325 Mg Tab) 650 mg PO Q4H PRN PRN Reason: Pain or Fever Stop: 10/16/23 04:11 Last Admin: 09/23/23 15:34 Dose: 650 mg Al Hydrox/Mg Hydrox/Simethicone (Aluminum/Magnesium Susp 30 Ml Udc) 15 ml PO Q6H PRN PRN Reason: Dyspepsia Stop: 10/20/23 15:42 Last Admin: 09/29/23 13:32 Dose: 15 ml Artificial Tears (Artificial Tears) 1 drops OP BID SEN Stop: 10/16/23 08:59 Last Admin: 09/30/23 08:43 Dose: 1 drops Bismuth Subsalicylate (Bismuth Subsalicylate 262 Mg Chew) 1 tab PO Q12 PRN PRN Reason: .UPSET STOMACH Stop: 10/16/23 03:26 Last Admin: 09/28/23 09:03 Dose: 1 tab Clonazepam (Clonazepam 0.5 Mg Tab) 0.5 mg PO TID@0800,1600,2000 [facility] Stop: 10/16/23 07:59 Last Admin: 09/30/23 08:43 Dose: 0.5 mg Clotrimazole (Clotrimazole 1% Cr 15 Gm Tube) 1 appln EXT BID SEN Stop: 10/22/23 12:29 Last Admin: 09/30/23 08:44 Dose: 1 appln Dextrose (Dextrose 50% 50 Ml Syringe) 25 - 50 ml IV UD PRN; Protocol PRN Reason: Hypoglycemia Protocol Stop: 10/16/23 02:56 Last Admin: 09/22/23 17:19 Dose: 50 ml Finasteride (Finasteride 5 Mg Tab) 5 mg PO QAM [facility] Stop: 10/16/23 08:59 Last Admin: 09/30/23 08:45 Dose: 5 mg Gabapentin (Gabapentin 300 Mg Cap) 300 mg PO TID SEN Stop: 10/16/23 08:59 Last Admin: 09/26/23 20:40 Dose: 300 mg Glucagon (Glucagon For Inj 1 Mg Vial) 1 mg SQ UD PRN; Protocol PRN Reason: Hypoglycemia Protocol Stop: 10/16/23 02:56 Glucose (Glucose 10 Tab/Tube) 4 - 8 tab PO UD PRN; Protocol PRN Reason: Hypoglycemia Treatment Stop: 10/16/23 02:56 Glucose (Glucose 40% Gel 15 Gm Tube) 15 - 30 gm PO UD PRN; Protocol PRN Reason: Hypoglycemia Protocol Stop: 10/16/23 02:56 Ceftriaxone Sodium 2,000 mg/ (Dextrose) 50 mls @ 100 mls/hr IV Q24H [facility]; Protocol Stop: 10/08/23 08:59 Last Admin: 09/30/23 08:43 Dose: 100 mls/hr Insulin Aspart (Insulin Aspart Per Unit Charge) 0 units SC ACHS [facility] Stop: 10/18/23 11:29 Last Admin: 09/30/23 09:18 Dose: 1 units Insulin Glargine (Lantus Per Unit Charge) 5 units SQ HS [facility] Stop: 10/16/23 20:59 Last Admin: 09/29/23 20:12 Dose: 5 units Magnesium Chloride (Magnesium Chloride W/Calcium 64mg Delayed Rel Tab) 64 mg PO QAM [facility] Stop: 10/26/23 08:59 Last Admin: 09/30/23 08:49 Dose: 64 mg Metoprolol Tartrate (Metoprolol Tartrate 25 Mg Tab) 12.5 mg PO BID [facility] Stop: 10/16/23 08:59 Last Admin: 09/30/23 08:47 Dose: 12.5 mg Miscellaneous (Carbohydrates For Hypoglycemia ) 15 - 30 gm PO UD PRN PRN Reason: Hypoglycemia Protocol Stop: 10/16/23 02:56 Last Admin: 09/24/23 17:21 Dose: 15 gm Multivitamins (Multivitamin Tab) 1 tab PO DAILY SEN Stop: 10/16/23 08:59 Last Admin: 09/30/23 08:49 Dose: 1 tab Oxcarbazepine (Oxcarbazepine 150 Mg Tablet) 300 mg PO BID SEN Stop: 10/16/23 08:59 Last Admin: 09/30/23 08:44 Dose: 300 mg Pantoprazole Sodium (Pantoprazole 40 Mg Tab) 40 mg PO QAM SEN Stop: 10/19/23 12:44 Last Admin: 09/30/23 08:45 Dose: 40 mg Quetiapine Fumarate (Quetiapine Fumarate 100 Mg Tablet) 100 mg PO BID SEN Stop: 10/29/23 08:59 Last Admin: 09/30/23 08:45 Dose: 100 mg Sertraline HCl (Sertraline Hcl 50 Mg Tablet) 50 mg PO DAILY SEN Stop: 10/16/23 08:59 Last Admin: 09/30/23 08:45 Dose: 50 mg Simethicone (Simethicone 80 Mg Chew) 80 mg PO Q6H PRN PRN Reason: Flatulence Stop: 10/26/23 13:15 Last Admin: 09/30/23 08:48 Dose: 80 mg Simvastatin (Simvastatin 40 Mg Tab) 40 mg PO QPM SEN Stop: 10/16/23 20:59 Last Admin: 09/29/23 20:16 Dose: 40 mg Tamsulosin HCl (Tamsulosin Hcl 0.4 Mg Cap) 0.4 mg PO DAILY SEN Stop: 10/16/23 08:59 Last Admin: 09/30/23 08:44 Dose: 0.4 mg Trazodone HCl (Trazodone Hcl 50 Mg Tab) 50 mg PO HS PRN PRN Reason: agitation Stop: 10/16/23 20:59 Umeclidinium Clifford (Umeclidinium Clifford 62.5mcg/Blister 7 Puffs/Inhaler) 1 puffs INH DAILY SEN Stop: 10/16/23 08:59 Last Admin: 09/30/23 08:49 Dose: 1 puffs
--- NOTE | 2023-09-30 15:22 | Hospitalist Progress Note ---
Date of Service September 30, 2023 Assessment & Plan (1) Ileus: Plan SBO versus ileus: Likely secondary to gastroenteritis Admitting CT abdomen/pelvis suggestive of ileus Repeat CT head scan of the abdomen pelvis did not show any intestinal obstruction. General surgery evaluated, appreciate recommendation. Patient moving bowels okay, eating ok. No nausea or vomiting. Patient remained stable without abdominal distention. Gastroenteritis: Possible gastroenteritis at presentation. Was with nausea and vomiting. Currently feeling much better, c diff negative. Hypoglycemic episode followed by unresponsive episode 09/22/2023: Status post hypoglycemia protocol with improvement. Continue to monitor. Likely metabolic encephalopathy 2/2 Comp UTI: overnight 09/26-09/27; was bradycardic, low bp and SaO2 in 80s on 2L NC O2. Neuropsych meds held, UA s/o uti, atb started, UCx w/ GNB. Psy consult to assist w/ neuropsych meds Mx/recommendation --appreciate recs 09/28. Will gradually resume meds w/ psy recs. Plan to taper quetiapine to stop. UTI: see above, zosyn 09/27. f/u Cx. zosyn to rocephin 09/28 General distressful appearance: at baseline per records. Other chronic medical conditions: Continue with/resume home meds as and when able. Chronic diastolic heart failure (EF 60-65%, TTE 2022), patient on dry side PAF not on anticoagulation due to fall risk, patient NSR mild PVD on Pentoxifylline Cerebral palsy/Klinefelter syndrome, intellectual disability per records - stable Diabetes mellitus type 2: Sliding scale insulin while in hospital. COPD: Not in acute exacerbation. Hypomagnesemia: Monitor and replete, appears resolved. Chronic hyponatremia: Patient at baseline, continue to monitor. DVT prophylaxis. SCDs Re: Thrombocytopenia, hematoma DNR Awaiting placement. Admission and Anticipated Discharge Date Admission Date: September 16, 2023 Subjective Patient was seen and examined at bedside. Patient was lying in bed, on room air, NAD, reports being in pain overall which appears to be his baseline. Per RN, patient eating okay, moving bowels okay. Of note, Overnight of 09/26-09/27, pt was code purple (lethargic, SaO2 in 80s on 2L NC O2 and low BP, bradycardic), UA s/o infxn, atb started, UCx sent. BSG in 130s. Physical Exam Physical Exam: GENERAL: Alert and awake. NAD, on RA. HEENT: No pallor, no icterus. Pupils equal, round and reactive to light. Oral mucosa moist. NECK: No JVD, no neck masses. HEART: S1 and S2 heard. Regular rate and rhythm. + murmur, no gallop. RESPIRATORY SYSTEM: Normal AP diameter. No accessory muscle use. No wheezing, no crackles. ABDOMEN: Soft, bowel sounds present, nontender, no distention. CENTRAL NERVOUS SYSTEM: No facial droop. Speech is clear. Obeys simple commands. Moves extremities. EXTREMITIES: Trace BLE edema, no erythema seen. Urinary catheter with light yellow urine collection noted. Skin- has scratch fraser on the skin. Results & Data Results & Data Vital Signs (Past 12 Hours) Vital Signs Temp Pulse Pulse Resp BP Pulse Ox O2 Del Method 09/30/23 15:10 36.3 C L 58 L 20 104/64 97 Room Air 09/30/23 11:15 36.8 C 55 L 20 95/51 L 96 Room Air 09/30/23 08:05 36.3 C L 64 20 112/58 L 97 Room Air 09/30/23 07:59 55 L 09/30/23 07:59 Room Air
[2023-09-30] MEDS ORDERED: PHARMACY GLYCEMIC MGMT CONSULT PRN (18:48)
[2023-09-30] MEDS ORDERED: LANTUS PER UNIT CHARGE SQ SCH (21:00)
[2023-09-30] MEDS: SIMVASTATIN 40 MG TAB PO SCH (21:27)
[2023-09-30] MEDS: CEROVITE ADV FORMULA TAB PO SCH (21:29)
[2023-09-30] MEDS: NYSTATIN SUSP 500,000 U/5 ML UDC PO SCH (21:29)
[2023-09-30] MEDS: GABAPENTIN 300 MG CAP PO SCH (22:14)
[2023-10-01] MEDS: cefTRIAXone SODIUM 2,000 MG in DEXTROSE 5 % MINI-B 50 ML IV SCH (09:17)
[2023-10-01] MEDS: GABAPENTIN 300 MG CAP PO SCH ×3 (09:18→21:56)
[2023-10-01] MEDS: QUEtiapine FUMARATE 100 MG TABLET PO SCH ×2 (09:18→21:55)
[2023-10-01] MEDS: TAMSULOSIN HCL 0.4 MG CAP PO SCH (09:19)
[2023-10-01] MEDS: METOPROLOL TARTRATE 25 MG TAB PO SCH ×2 (09:19→21:56)
[2023-10-01] MEDS: FINASTERIDE 5 MG TAB PO SCH (09:19)
[2023-10-01] MEDS: SERTRALINE HCL 50 MG TABLET PO SCH (09:19)
[2023-10-01] MEDS: OXcarbazepine 150 MG TABLET PO SCH ×2 (09:20→21:56)
[2023-10-01] MEDS: SIMETHICONE 80 MG CHEW PO PRN (09:20)
[2023-10-01] MEDS: CEROVITE ADV FORMULA TAB PO SCH (09:20)
[2023-10-01] MEDS: MAGNESIUM CHLORIDE W/CALCIUM 64MG DELAYED REL TAB PO SCH (09:21)
[2023-10-01] MEDS: PANTOprazole 40 MG TAB PO SCH (09:21)
[2023-10-01] MEDS: MULTIVITAMIN TAB PO SCH (09:21)
[2023-10-01] MEDS: ARTIFICIAL TEARS OP SCH ×2 (09:22→21:57)
[2023-10-01] MEDS: CLOTRIMAZOLE 1% CR 15 GM TUBE EXT SCH ×2 (09:22→21:57)
[2023-10-01] MEDS: UMECLIDINIUM BROMIDE 62.5MCG/BLISTER 7 PUFFS/INHALER INH SCH (09:22)
[2023-10-01] MEDS: NYSTATIN SUSP 500,000 U/5 ML UDC PO SCH ×4 (09:23→21:56)
[2023-10-01] MEDS: INSULIN ASPART PER UNIT CHARGE SC SCH ×4 (09:28→20:35)
[2023-10-01] MEDS: LANTUS PER UNIT CHARGE SQ SCH (09:28)
[2023-10-01] MEDS: clonazePAM 0.5 MG TAB PO SCH ×3 (09:30→21:57)
[2023-10-01 09:36] LABS: Hematocrit (blood only) 32.5 % (42.0-52.0); Hemoglobin 10.9 g/dl (14.0-18.0); Mean Corpuscular Hgb Conc 33.5 g/dL (32.0-36.0); Mean Corpuscular Volume 95.3 fL (80.0-100.0); Mean Platelet Volume 9.9 fL (9.4-12.4); Platelet Count 220 K/uL (130-400); RDW Coefficient of Variation 12.9 % (11.5-14.5); RDW Standard Deviation 45.7 fL (36.4-46.3); Red Blood Count 3.41 M/uL (4.70-6.10); White Blood Count 5.09 K/ul (4.8-10.8)
[2023-10-01 10:03] LABS: BUN Creatinine Ratio 19.7 (10-20); Est GFR (African American) 118.1 ml/min; Est GFR (Non-African American) 101.9 ml/min; Magnesium 1.5 mg/dl (1.7-2.4); Potassium 4.7 mmol/L (3.5-5.1)
--- NOTE | 2023-10-01 13:32 | Hospitalist Progress Note ---
Date of Service October 01, 2023 Assessment & Plan (1) Ileus: Plan Mr. Kendall is a 68 year old gentleman with history of cognitive impairment/Klinefelter syndrome, cerebral palsy, DM2, COPD, PVD, TRINIDAD, GERD, chronic stasis dermatitis, hearing loss, osteoporosis, and valvular heart disease (mild MR/TR/Aortic Stenosis) who was admitted on 09/16 due to abdominal pain and diarrhea. Patient was found to have SBO v ileus and managed conservatively. #Hypomagnesemia: Monitor and replete #Acute on Chronic hyponatremia: Patient at baseline, continue to monitor. Will add FR 2L and serum/urine osmo #Acute toxic metabolic encephalopathy, likely 2/2 UTI #Intellectual Disability, Klinefelters #Cerebral Palsy overnight 09/26-09/27; was bradycardic, low bp and SaO2 in 80s on 2L NC O2. UA s/o uti, atb started, UCx w/ GNB; treat as follows Psychiatry consulted: neuropsych meds tapering, recommendations place 09/28 - appreciate recs 09/28. Will gradually resume meds w/ psy recs. Plan to taper quetiapine to stop. -Reduce quetiapine from a dose of 300 mg 3 times a day to a dose of 100 mg 3 times a day for for 3 days, now down to 100 mg twice a day x three days with plans to discontinue 10/05 -Resume Gabapentin upon discharge Outside record review demonstrates multiple antipsychotic medication changes (Risperidone discontinued 08/2023, quetiapine started) #Viral Gastroenteritis #SBO versus ileus: Likely secondary to gastroenteritis Admitting CT abdomen/pelvis suggestive of ileus Repeat CT head scan of the abdomen pelvis did not show any intestinal obstruction. General surgery evaluated, managed conservatively C.Diff negative Continues to tolerate diet, denies pain this am #Hypoglycemic episode followed by unresponsive episode 09/22/2023: Status post hypoglycemia protocol with improvement. Continue to monitor. #Complicated UTI 2/2 Klebsiella: see above, zosyn 09/27. f/u Cx. zosyn to rocephin 09/28. EOT 10/08, transition to po upon discharge Other chronic medical conditions: Continue with/resume home meds as and when able. #Chronic diastolic heart failure (EF 60-65%, TTE 2022), patient on dry side #Prior SVT/PAF not on anticoagulation due to fall risk, patient NSR, Continue Metoprolol #mild #PVD on Pentoxifylline #Diabetes mellitus type 2: Sliding scale insulin while in hospital. Resume home Trulicity, metformin and amaryl #COPD: Not in acute exacerbation. DVT prophylaxis. SCDs Re: Thrombocytopenia, hematoma DNR Awaiting placement. Admission and Anticipated Discharge Date Admission Date: September 16, 2023 Subjective Patient alert and sitting up in bed. Gestures towards window stating that its "bad outside" and seemingly wanting window closed Seemed to deny any pain, or needing anything at time of exam Physical Exam Constitutional: alert, follows simple commands Respiratory: normal respiratory effort, lungs clear to auscultation Cardiovascular: RRR, no murmur, no edema Gastrointestinal (Abdomen): soft NTND Results & Data Results & Data Vital Signs (Past 12 Hours) Vital Signs Temp Pulse Pulse Pulse Resp BP BP 10/01/23 12:20 36.6 C 55 L 16 112/66 10/01/23 07:40 56 L 10/01/23 07:30 36.6 C 57 L 14 99/56 L 10/01/23 03:33 36.0 C L 58 L 18 88/47 L Pulse Ox O2 Del Method 10/01/23 12:20 98 Room Air 10/01/23 07:40 10/01/23 07:30 93 Room Air 10/01/23 03:33 96 Room Air Laboratory Results Short CBC 10/01/23 Range/Units 08:37 WBC 5.09 (4.8-10.8) K/ul Hgb 10.9 L (14.0-18.0) g/dl Hct 32.5 L (42.0-52.0) % Plt Count 220 (130-400) K/uL BMP 10/01/23 08:37 Sodium 127 L Potassium 4.7 Chloride 94 L Carbon Dioxide 27 BUN 12 Creatinine 0.61 Glucose 186 H Calcium 9.0 Medications Administered Home Medications Medication Instructions Recorded Confirmed Last Taken Lactobacillus rhamnosus GG 15 2 cap PO DAILY 09/16/23 09/16/23 Unknown billion cell sprinkle capsule (Culturelle) acetaminophen 325 mg tablet 650 mg PO Q4 PRN Fever 09/16/23 09/16/23 Unknown (Tylenol) acetaminophen 650 mg 1,300 mg PO AMHS 09/16/23 09/16/23 Unknown tablet,extended release albuterol sulfate 90 mcg/actuation 2 puff inhalation Q4 PRN Shortness 09/16/23 09/16/23 Unknown aerosol inhaler Of Breath Or Wheezing bismuth subsalicylate 262 mg 1 tab PO Q12 PRN .UPSET STOMACH 09/16/23 09/16/23 Unknown chewable tablet (Pepto-Bismol) carboxymethylcellulose sodium 0.5 1 drp OPB BID 09/16/23 09/16/23 Unknown % eye drops (Refresh Tears) cholecalciferol (vitamin D3) 25 25 mcg PO QAM 09/16/23 09/16/23 Unknown mcg (1,000 unit) capsule (Vitamin D3) clonazepam 0.5 mg tablet 0.5 mg PO TID 09/16/23 09/16/23 Unknown diphenhydramine HCl 12.5 mg 12.5 mg PO BID PRN Itching 09/16/23 09/16/23 Unknown chewable tablet dulaglutide 3 mg/0.5 mL 3 mg subcut .WEEKLY 09/16/23 09/16/23 Unknown subcutaneous pen injector (Trulicity) finasteride 5 mg tablet 5 mg PO QAM 09/16/23 09/16/23 Unknown food supplemt, lactose-reduced 1 ea PO BID 09/16/23 09/16/23 Unknown furosemide 20 mg tablet 20 mg PO DAILY 09/16/23 09/16/23 Unknown gabapentin 300 mg capsule 300 mg PO TID 09/16/23 09/16/23 Unknown glimepiride 1 mg tablet 1 mg PO DAILY 09/16/23 09/16/23 Unknown guaifenesin 100 mg/5 mL oral liquid 200 mg PO TID PRN Cough 09/16/23 09/16/23 Unknown guaifenesin 600 mg tablet, 600 mg PO Q12H 09/16/23 09/16/23 Unknown extended release 12 hr (Mucinex) loperamide 2 mg capsule (Imodium 2 mg PO TID PRN Diarrhea 09/16/23 09/16/23 Unknown A-D) loratadine 10 mg tablet 10 mg PO DAILY 09/16/23 09/16/23 Unknown magnesium oxide 400 mg PO BID 09/16/23 09/16/23 Unknown metformin 1,000 mg tablet 1,000 mg PO BID 09/16/23 09/16/23 Unknown metoprolol tartrate 25 mg tablet 12.5 mg PO BID 09/16/23 09/16/23 Unknown multivitamin 1 tab PO DAILY 09/16/23 09/16/23 Unknown neomycin-bacitracn Zn-polymyxn 3.5 1 applic topical DIRECTED WOUND 09/16/23 09/16/23 Unknown mg-400 unit-5,000 unit top oint CARE pkt (Neosporin([id number])) oxcarbazepine 300 mg tablet 300 mg PO BID 09/16/23 09/16/23 Unknown pentoxifylline 400 mg 400 mg PO TID 09/16/23 09/16/23 Unknown tablet,extended release polyethylene glycol 3350 17 gram 17 g PO DIRECTED PRN 09/16/23 09/16/23 Unknown oral powder packet (Miralax) Constipation quetiapine 100 mg tablet 100 mg PO TID 09/16/23 09/16/23 Unknown sertraline 50 mg tablet 50 mg PO DAILY 09/16/23 09/16/23 Unknown simvastatin 40 mg tablet 40 mg PO QPM 09/16/23 09/16/23 Unknown tamsulosin 0.4 mg capsule 0.4 mg PO DAILY 09/16/23 09/16/23 Unknown trazodone 50 mg tablet 50 mg PO HS 09/16/23 09/16/23 Unknown umeclidinium 62.5 mcg/actuation 1 inh inhalation DAILY 09/16/23 09/16/23 Unknown blister powder for inhalation (Incruse Ellipta) Active Medications Generic Name Dose Route Start Last Admin Trade Name Freq PRN Reason Stop Dose Admin Acetaminophen 650 mg 09/16/23 04:12 09/23/23 15:34 Acetaminophen 325 Mg Tab PO 10/16/23 04:11 650 mg Q4H PRN Administration Pain or Fever Al Hydrox/Mg Hydrox/Simethicone 15 ml 09/20/23 15:43 09/29/23 13:32 Aluminum/Magnesium Susp 30 Ml Udc PO 10/20/23 15:42 15 ml Q6H PRN Administration Dyspepsia Artificial Tears 1 drops 09/16/23 09:00 10/01/23 09:22 Artificial Tears OP 10/16/23 08:59 1 drops BID SEN Administration Bismuth Subsalicylate 1 tab 09/16/23 03:27 09/28/23 09:03 Bismuth Subsalicylate 262 Mg Chew PO 10/16/23 03:26 1 tab Q12 PRN Administration .UPSET STOMACH Clonazepam 0.5 mg 09/16/23 08:00 10/01/23 09:30 Clonazepam 0.5 Mg Tab PO 10/16/23 07:59 0.5 mg TID@0800,1600,2000 SEN Administration Clotrimazole 1 appln 09/22/23 12:30 10/01/23 09:22 Clotrimazole 1% Cr 15 Gm Tube EXT 10/22/23 12:29 1 appln BID SEN Administration Dextrose 25 - 50 ml 09/16/23 02:57 09/22/23 17:19 Dextrose 50% 50 Ml Syringe IV 10/16/23 02:56 50 ml UD PRN Administration Hypoglycemia Protocol Protocol Finasteride 5 mg 09/16/23 09:00 10/01/23 09:19 Finasteride 5 Mg Tab PO 10/16/23 08:59 5 mg QAM SEN Administration Gabapentin 300 mg 09/16/23 09:00 10/01/23 13:49 Gabapentin 300 Mg Cap PO 10/16/23 08:59 300 mg TID SEN Administration Ceftriaxone Sodium 2,000 mg/ 50 mls @ 100 mls/hr 09/28/23 09:00 10/01/23 10:13 Dextrose IV 10/08/23 08:59 Infused Q24H SEN Infusion Protocol Insulin Aspart 0 units 09/18/23 11:30 10/01/23 13:24 Insulin Aspart Per Unit Charge SC 10/18/23 11:29 6 units ACHS SEN Administration Insulin Glargine 12 units 10/01/23 09:00 10/01/23 09:28 Lantus Per Unit Charge SQ 10/31/23 08:59 12 units QAM SEN Administration Magnesium Chloride 64 mg 09/26/23 09:00 10/01/23 09:21 Magnesium Chloride W/Calcium 64mg Delayed Rel Tab PO 10/26/23 08:59 64 mg QAM SEN Administration Metoprolol Tartrate 12.5 mg 09/16/23 09:00 10/01/23 09:19 Metoprolol Tartrate 25 Mg Tab PO 10/16/23 08:59 Not Given BID SEN Miscellaneous 15 - 30 gm 09/16/23 02:57 09/24/23 17:21 Carbohydrates For Hypoglycemia PO 10/16/23 02:56 15 gm UD PRN Administration Hypoglycemia Protocol Multivitamins 1 tab 09/16/23 09:00 10/01/23 09:21 Multivitamin Tab PO 10/16/23 08:59 1 tab DAILY SEN Administration Multivitamins/Minerals 1 tab 09/30/23 19:00 10/01/23 09:20 Cerovite Adv Formula Tab PO 10/30/23 18:59 1 tab QAM SEN Administration Nystatin 5 ml 09/30/23 21:00 10/01/23 13:49 Nystatin Susp 500,000 U/5 Ml Udc PO 10/30/23 20:59 5 ml QID SEN Administration Oxcarbazepine 300 mg 09/16/23 09:00 10/01/23 09:20 Oxcarbazepine 150 Mg Tablet PO 10/16/23 08:59 300 mg BID SEN Administration Pantoprazole Sodium 40 mg 09/19/23 12:45 10/01/23 09:21 Pantoprazole 40 Mg Tab PO 10/19/23 12:44 40 mg QAM SEN Administration Quetiapine Fumarate 100 mg 09/29/23 09:00 10/01/23 09:18 Quetiapine Fumarate 100 Mg Tablet PO 10/29/23 08:59 100 mg BID SEN Administration Sertraline HCl 50 mg 09/16/23 09:00 10/01/23 09:19 Sertraline Hcl 50 Mg Tablet PO 10/16/23 08:59 50 mg DAILY SEN Administration Simethicone 80 mg 09/26/23 13:16 10/01/23 09:20 Simethicone 80 Mg Chew PO 10/26/23 13:15 80 mg Q6H PRN Administration Flatulence Simvastatin 40 mg 09/16/23 21:00 09/30/23 21:27 Simvastatin 40 Mg Tab PO 10/16/23 20:59 40 mg QPM SEN Administration Tamsulosin HCl 0.4 mg 09/16/23 09:00 10/01/23 09:19 Tamsulosin Hcl 0.4 Mg Cap PO 10/16/23 08:59 0.4 mg DAILY SEN Administration Umeclidinium [place] 1 puffs 09/16/23 09:00 10/01/23 09:22 Umeclidinium [place] 62.5mcg/Blister 7 Puffs/Inhaler INH 10/16/23 08:59 1 puffs DAILY SEN Administration
--- NOTE | 2023-10-01 14:20 | Pharmacy Report ---
Pharmacy Glycemic Short Note 2 - Date of Service October 01, 2023 - Glycemic Short BSG Results (Last 24 hours): 09/30/23 09/30/23 10/01/23 17:09 20:05 08:20 Glucose POC Glucose 300 H 260 H 172 H 10/01/23 10/01/23 08:37 11:58 Glucose 186 H POC Glucose 110 H OUTPATIENT ANTIDIABETIC REGIMEN: * metformin 1000mg BID * glimeperide 1 mg PO daily * Trulicity 3mg SC Qwk * HbA1c 7.6% (11/25/22) * HbA1c pending (10/02/23) ASSESSMENT: * Isai is a 68 YOM admitted with diarrhea and vomitting, presently resolved awaiting placement with a history of T2DM. Pharmacy has been consulted for glycemic management while inpatient. * Isai received 21 units of insulin yesterday (10 were basal) * Fasting BSG elevated this AM, basal insulin increased by 20% * Novolog parameters initiated at around a weight based stress of 2, seems to be covering and correcting adequately at this time, no change PLAN FOR INPATIENT GLYCEMIC CONTROL: * Hold outpatient oral diabetes medications * Basal insulin * Lantus 12 units SC QAM * Bolus insulin * NovoLog per scale ACHS or Q6hrs while NPO * Goal Range: Low 110 mg/dL - High 140 mg/dL * Correction Factor: 30 mg/dL/unit * Nutritional / Prandial insulin per carb ratio of 1 unit per 10 grams CHO consumed
[2023-10-01] MEDS: MAGNESIUM SULFATE / D5W 1 GM/100 ML BAG IV SCH ×3 (14:26→18:05)
--- NOTE | 2023-10-01 16:02 | Communication Note ---
Date of Service: October 01, 2023 interim progress reviewed as patient is generally cooperative but has difficulty expressing self. Liaison contacted [facility] re: recent medication changes: Spoke with patient's Skills nurse, Roseanna Jain . Roseanna reports that the patient was seen by Dr. Montague PCP on August 30 where they addressed the patient's worsening behaviors. The behaviors consisted of yelling, swearing, punching pichardo/doors, pacing constantly. Dr. Montague then increased Klonopin to TID, started Zoloft, started Seroquel 300mg TID, and discontinued Risperdal. Dr. Vazquez, the patient's psychiatrist, is still managing patient's Trileptal and Trazodone. Roseanna reports that he sees Dr. Vazquez via telehealth through [facility]. Patient's medication changes were initiated on August 31. Per Roseanna, the patient appeared to be slightly calmer on the new medications but was still acting out at times. It appears surescripts that 100 mg Seroquel #84 for a 28 day supply was ordered on 09/22/23 rather than 300 mg TID, ?possible confusion with Trileptal dosing. Complicated by multiple psych med prescribers. Will attempt to confirmed intent of prescriber.
[2023-10-01] MEDS: CARBOHYDRATES FOR HYPOGLYCEMIA PO PRN (17:00)
[2023-10-01] MEDS: SIMVASTATIN 40 MG TAB PO SCH (21:56)
[2023-10-02] MEDS: clonazePAM 0.5 MG TAB PO SCH ×3 (08:26→20:39)
[2023-10-02] MEDS: cefTRIAXone SODIUM 2,000 MG in DEXTROSE 5 % MINI-B 50 ML IV SCH (08:27)
[2023-10-02] MEDS: CLOTRIMAZOLE 1% CR 15 GM TUBE EXT SCH ×2 (08:27→20:42)
[2023-10-02] MEDS: ARTIFICIAL TEARS OP SCH ×2 (08:27→20:43)
[2023-10-02] MEDS: OXcarbazepine 150 MG TABLET PO SCH ×2 (08:28→20:41)
[2023-10-02] MEDS: GABAPENTIN 300 MG CAP PO SCH ×3 (08:28→20:42)
[2023-10-02] MEDS: METOPROLOL TARTRATE 25 MG TAB PO SCH ×2 (08:29→20:45)
[2023-10-02] MEDS: QUEtiapine FUMARATE 100 MG TABLET PO SCH ×2 (08:32→20:41)
[2023-10-02] MEDS: TAMSULOSIN HCL 0.4 MG CAP PO SCH (08:33)
[2023-10-02] MEDS: MULTIVITAMIN TAB PO SCH (08:33)
[2023-10-02] MEDS: MAGNESIUM CHLORIDE W/CALCIUM 64MG DELAYED REL TAB PO SCH (08:33)
[2023-10-02] MEDS: SERTRALINE HCL 50 MG TABLET PO SCH (08:33)
[2023-10-02] MEDS: CEROVITE ADV FORMULA TAB PO SCH (08:34)
[2023-10-02] MEDS: PANTOprazole 40 MG TAB PO SCH (08:34)
[2023-10-02] MEDS: FINASTERIDE 5 MG TAB PO SCH (08:34)
[2023-10-02] MEDS: NYSTATIN SUSP 500,000 U/5 ML UDC PO SCH ×4 (08:35→20:43)
[2023-10-02 08:56] LABS: Hematocrit (blood only) 33.6 % (42.0-52.0); Hemoglobin 10.8 g/dl (14.0-18.0); Mean Corpuscular Hemoglobin 31.8 pg (25.0-34.0); Mean Corpuscular Hgb Conc 32.1 g/dL (32.0-36.0); Mean Corpuscular Volume 98.8 fL (80.0-100.0); Mean Platelet Volume 9.9 fL (9.4-12.4); Platelet Count 192 K/uL (130-400); RDW Standard Deviation 46.6 fL (36.4-46.3); White Blood Count 4.38 K/ul (4.8-10.8)
[2023-10-02] MEDS: INSULIN ASPART PER UNIT CHARGE SC SCH ×4 (09:01→20:39)
[2023-10-02] MEDS: LANTUS PER UNIT CHARGE SQ SCH (09:01)
[2023-10-02 09:12] LABS: BUN Creatinine Ratio 18.5 (10-20); Calcium 8.8 mg/dl (8.6-10.3); Creatinine Clr Calc Pharmacy 120.7 ml/min; Est GFR (African American) 124.2 ml/min; Est GFR (Non-African American) 107.1 ml/min; Magnesium 1.7 mg/dl (1.7-2.4); Phosphorus 3.6 mg/dl (2.5-4.9); Potassium 5.1 mmol/L (3.5-5.1)
--- NOTE | 2023-10-02 10:29 | Hospitalist Progress Note ---
Date of Service October 02, 2023 Assessment & Plan (1) Ileus: Plan Mr. Kendall is a 68 year old gentleman with history of cognitive impairment/Klinefelter syndrome, cerebral palsy, DM2, COPD, PVD, TRINIDAD, GERD, chronic stasis dermatitis, hearing loss, osteoporosis, and valvular heart disease (mild MR/TR/Aortic Stenosis) who was admitted on 09/16 due to abdominal pain and diarrhea. Patient was found to have SBO v ileus and managed conservatively. #Hypomagnesemia: Monitor and replete #Acute on Chronic hyponatremia*stable: Patient at baseline, continue to monitor; trial 10mg lasix as historically has been trialed on and off lasix #Acute toxic metabolic encephalopathy, likely 2/2 UTI #Intellectual Disability, Klinefelters #Cerebral Palsy overnight 09/26-09/27; was bradycardic, low bp and SaO2 in 80s on 2L NC O2. UA s/o uti, atb started, UCx w/ GNB; treat as follows Psychiatry consulted: neuropsych meds tapering, recommendations place 09/28 - appreciate recs 09/28. Will gradually resume meds w/ psy recs. Plan to taper quetiapine to stop. -Quetiapine taper to be completed on 10/03, d/c on 10/04 -Gabapentin resumed Outside record review demonstrates multiple antipsychotic medication changes (R isperidone discontinued 08/2023, quetiapine started) #Viral Gastroenteritis *resolved #SBO versus ileus: Likely secondary to gastroenteritis Admitting CT abdomen/pelvis suggestive of ileus Repeat CT head scan of the abdomen pelvis did not show any intestinal obstruction. General surgery evaluated, managed conservatively C.Diff negative Continues to tolerate diet, denies pain this am #Hypoglycemic episode followed by unresponsive episode 09/22/2023: Status post hypoglycemia protocol with improvement. Continue to monitor. #Complicated UTI 2/2 Klebsiella: see above, zosyn 09/27. f/u Cx. zosyn to rocephin 09/28. EOT 10/08, transition to po upon discharge Other chronic medical conditions: Continue with/resume home meds as and when able. #Chronic diastolic heart failure (EF 60-65%, TTE 2022), stable #Prior SVT/PAF not on anticoagulation due to fall risk, patient NSR, Continue Metoprolol #mild #PVD on Pentoxifylline #Diabetes mellitus type 2: Sliding scale insulin while in hospital. Resume home Trulicity, metformin and amaryl #COPD: Not in acute exacerbation. DVT prophylaxis. SCDs Re: Thrombocytopenia, hematoma DNR Awaiting placement. Admission and Anticipated Discharge Date Admission Date: September 16, 2023 Subjective NAEO Awake alert, does not appear to gesture in any distress or concerns Review of Systems Review of Systems: Unobtainable due to cognitive status Physical Exam Constitutional: WD/WN, vitals as above Respiratory: normal respiratory effort, lungs clear to auscultation Cardiovascular: RRR, no murmur, no edema Gastrointestinal (Abdomen): normal bowel sounds, soft, nontender, no hepatosplenomegaly Results & Data Results & Data Vital Signs (Past 12 Hours) Vital Signs Temp Pulse Pulse Resp BP BP Pulse Ox 10/02/23 08:32 36.6 C 81 16 119/71 99 10/02/23 07:47 59 L 10/02/23 03:11 36.3 C L 56 L 18 117/66 95 10/01/23 23:21 35.9 C L 53 L 18 102/57 L 95 O2 Del Method 10/02/23 08:32 Room Air 10/02/23 07:47 10/02/23 03:11 Room Air 10/01/23 23:21 Room Air Laboratory Results Short CBC 10/02/23 Range/Units 08:30 WBC 4.38 L (4.8-10.8) K/ul Hgb 10.8 L (14.0-18.0) g/dl Hct 33.6 L (42.0-52.0) % Plt Count 192 (130-400) K/uL BMP 10/02/23 08:30 Sodium 126 L Potassium 5.1 Chloride 92 L Carbon Dioxide 31 BUN 10 Creatinine 0.54 L Glucose 158 H Calcium 8.8 Medications Administered Home Medications Medication Instructions Recorded Confirmed Last Taken Lactobacillus rhamnosus GG 15 2 cap PO DAILY 09/16/23 09/16/23 Unknown billion cell sprinkle capsule (Culturelle) acetaminophen 325 mg tablet 650 mg PO Q4 PRN Fever 09/16/23 09/16/23 Unknown (Tylenol) acetaminophen 650 mg 1,300 mg PO AMHS 09/16/23 09/16/23 Unknown tablet,extended release albuterol sulfate 90 mcg/actuation 2 puff inhalation Q4 PRN Shortness 09/16/23 09/16/23 Unknown aerosol inhaler Of Breath Or Wheezing bismuth subsalicylate 262 mg 1 tab PO Q12 PRN .UPSET STOMACH 09/16/23 09/16/23 Unknown chewable tablet (Pepto-Bismol) carboxymethylcellulose sodium 0.5 1 drp OPB BID 09/16/23 09/16/23 Unknown % eye drops (Refresh Tears) cholecalciferol (vitamin D3) 25 25 mcg PO QAM 09/16/23 09/16/23 Unknown mcg (1,000 unit) capsule (Vitamin D3) clonazepam 0.5 mg tablet 0.5 mg PO TID 09/16/23 09/16/23 Unknown diphenhydramine HCl 12.5 mg 12.5 mg PO BID PRN Itching 09/16/23 09/16/23 Unknown chewable tablet dulaglutide 3 mg/0.5 mL 3 mg subcut .WEEKLY 09/16/23 09/16/23 Unknown subcutaneous pen injector (Trulicity) finasteride 5 mg tablet 5 mg PO QAM 09/16/23 09/16/23 Unknown food supplemt, lactose-reduced 1 ea PO BID 09/16/23 09/16/23 Unknown furosemide 20 mg tablet 20 mg PO DAILY 09/16/23 09/16/23 Unknown gabapentin 300 mg capsule 300 mg PO TID 09/16/23 09/16/23 Unknown glimepiride 1 mg tablet 1 mg PO DAILY 09/16/23 09/16/23 Unknown guaifenesin 100 mg/5 mL oral liquid 200 mg PO TID PRN Cough 09/16/23 09/16/23 Unknown guaifenesin 600 mg tablet, 600 mg PO Q12H 09/16/23 09/16/23 Unknown extended release 12 hr (Mucinex) loperamide 2 mg capsule (Imodium 2 mg PO TID PRN Diarrhea 09/16/23 09/16/23 Unknown A-D) loratadine 10 mg tablet 10 mg PO DAILY 09/16/23 09/16/23 Unknown magnesium oxide 400 mg PO BID 09/16/23 09/16/23 Unknown metformin 1,000 mg tablet 1,000 mg PO BID 09/16/23 09/16/23 Unknown metoprolol tartrate 25 mg tablet 12.5 mg PO BID 09/16/23 09/16/23 Unknown multivitamin 1 tab PO DAILY 09/16/23 09/16/23 Unknown neomycin-bacitracn Zn-polymyxn 3.5 1 applic topical DIRECTED WOUND 09/16/23 09/16/23 Unknown mg-400 unit-5,000 unit top oint CARE pkt (Neosporin([id number])) oxcarbazepine 300 mg tablet 300 mg PO BID 09/16/23 09/16/23 Unknown pentoxifylline 400 mg 400 mg PO TID 09/16/23 09/16/23 Unknown tablet,extended release polyethylene glycol 3350 17 gram 17 g PO DIRECTED PRN 09/16/23 09/16/23 Unknown oral powder packet (Miralax) Constipation quetiapine 100 mg tablet 100 mg PO TID 09/16/23 09/16/23 Unknown sertraline 50 mg tablet 50 mg PO DAILY 09/16/23 09/16/23 Unknown simvastatin 40 mg tablet 40 mg PO QPM 09/16/23 09/16/23 Unknown tamsulosin 0.4 mg capsule 0.4 mg PO DAILY 09/16/23 09/16/23 Unknown trazodone 50 mg tablet 50 mg PO HS 09/16/23 09/16/23 Unknown umeclidinium 62.5 mcg/actuation 1 inh inhalation DAILY 09/16/23 09/16/23 Unknown blister powder for inhalation (Incruse Ellipta) Active Medications Generic Name Dose Route Start Last Admin Trade Name Giovaniq PRN Reason Stop Dose Admin Acetaminophen 650 mg 09/16/23 04:12 09/23/23 15:34 Acetaminophen 325 Mg Tab PO 10/16/23 04:11 650 mg Q4H PRN Administration Pain or Fever Al Hydrox/Mg Hydrox/Simethicone 15 ml 09/20/23 15:43 09/29/23 13:32 Aluminum/Magnesium Susp 30 Ml Udc PO 10/20/23 15:42 15 ml Q6H PRN Administration Dyspepsia Artificial Tears 1 drops 09/16/23 09:00 10/02/23 08:27 Artificial Tears OP 10/16/23 08:59 1 drops BID SEN Administration Bismuth Subsalicylate 1 tab 09/16/23 03:27 09/28/23 09:03 Bismuth Subsalicylate 262 Mg Chew PO 10/16/23 03:26 1 tab Q12 PRN Administration .UPSET STOMACH Clonazepam 0.5 mg 09/16/23 08:00 10/02/23 08:26 Clonazepam 0.5 Mg Tab PO 10/16/23 07:59 0.5 mg TID@0800,1600,2000 SEN Administration Clotrimazole 1 appln 09/22/23 12:30 10/02/23 08:27 Clotrimazole 1% Cr 15 Gm Tube EXT 10/22/23 12:29 1 appln BID SEN Administration Dextrose 25 - 50 ml 09/16/23 02:57 09/22/23 17:19 Dextrose 50% 50 Ml Syringe IV 10/16/23 02:56 50 ml UD PRN Administration Hypoglycemia Protocol Protocol Finasteride 5 mg 09/16/23 09:00 10/02/23 08:34 Finasteride 5 Mg Tab PO 10/16/23 08:59 5 mg QAM SEN Administration Gabapentin 300 mg 09/16/23 09:00 10/02/23 08:28 Gabapentin 300 Mg Cap PO 10/16/23 08:59 300 mg TID SEN Administration Ceftriaxone Sodium 2,000 mg/ 50 mls @ 100 mls/hr 09/28/23 09:00 10/02/23 09:44 Dextrose IV 10/08/23 08:59 Infused Q24H SEN Infusion Protocol Insulin Aspart 0 units 09/18/23 11:30 10/02/23 09:01 Insulin Aspart Per Unit Charge SC 10/18/23 11:29 4 units ACHS SEN Administration Insulin Glargine 12 units 10/01/23 09:00 10/02/23 09:01 Lantus Per Unit Charge SQ 10/31/23 08:59 12 units QAM SEN Administration Magnesium Chloride 64 mg 09/26/23 09:00 10/02/23 08:33 Magnesium Chloride W/Calcium 64mg Delayed Rel Tab PO 10/26/23 08:59 64 mg QAM SEN Administration Metoprolol Tartrate 12.5 mg 09/16/23 09:00 10/02/23 08:29 Metoprolol Tartrate 25 Mg Tab PO 10/16/23 08:59 Not Given BID SEN Miscellaneous 15 - 30 gm 11/21/23 02:57 10/01/23 17:00 Carbohydrates For Hypoglycemia PO 10/16/23 02:56 15 gm UD PRN Administration Hypoglycemia Protocol Multivitamins 1 tab 09/16/23 09:00 10/02/23 08:33 Multivitamin Tab PO 10/16/23 08:59 1 tab DAILY SEN Administration Multivitamins/Minerals 1 tab 09/30/23 19:00 10/02/23 08:34 Cerovite Adv Formula Tab PO 10/30/23 18:59 1 tab QAM SEN Administration Nystatin 5 ml 09/30/23 21:00 10/02/23 08:35 Nystatin Susp 500,000 U/5 Ml Udc PO 10/30/23 20:59 5 ml QID SEN Administration Oxcarbazepine 300 mg 09/16/23 09:00 10/02/23 08:28 Oxcarbazepine 150 Mg Tablet PO 10/16/23 08:59 300 mg BID SEN Administration Pantoprazole Sodium 40 mg 09/19/23 12:45 10/02/23 08:34 Pantoprazole 40 Mg Tab PO 10/19/23 12:44 40 mg QAM SEN Administration Quetiapine Fumarate 100 mg 09/29/23 09:00 10/02/23 08:32 Quetiapine Fumarate 100 Mg Tablet PO 10/29/23 08:59 100 mg BID SEN Administration Sertraline HCl 50 mg 09/16/23 09:00 10/02/23 08:33 Sertraline Hcl 50 Mg Tablet PO 10/16/23 08:59 50 mg DAILY SEN Administration Simethicone 80 mg 09/26/23 13:16 10/01/23 09:20 Simethicone 80 Mg Chew PO 10/26/23 13:15 80 mg Q6H PRN Administration Flatulence Simvastatin 40 mg 09/16/23 21:00 10/01/23 21:56 Simvastatin 40 Mg Tab PO 10/16/23 20:59 40 mg QPM SEN Administration Tamsulosin HCl 0.4 mg 09/16/23 09:00 10/02/23 08:33 Tamsulosin Hcl 0.4 Mg Cap PO 10/16/23 08:59 0.4 mg DAILY SEN Administration Umeclidinium [place] 1 puffs 09/16/23 09:00 10/01/23 09:22 Umeclidinium [place] 62.5mcg/Blister 7 Puffs/Inhaler INH 10/16/23 08:59 1 puffs DAILY SEN Administration
[2023-10-02 11:01] LABS: Estimated Average Glucose 169 mg/dl; Hemoglobin A1C 7.5 % (4.5-5.6)
[2023-10-02] MEDS: UMECLIDINIUM BROMIDE 62.5MCG/BLISTER 7 PUFFS/INHALER INH SCH (11:34)
--- NOTE | 2023-10-02 13:20 | Pharmacy Report ---
Pharmacy Glycemic Short Note 2 - Date of Service October 02, 2023 - Glycemic Short BSG Results (Last 24 hours): 10/01/23 10/01/23 10/01/23 16:55 17:17 20:11 Glucose POC Glucose 64 L* 82 140 H 10/02/23 10/02/23 10/02/23 08:23 08:30 12:27 Glucose 158 H POC Glucose 156 H 130 H OUTPATIENT ANTIDIABETIC REGIMEN: * metformin 1000mg BID * glimeperide 1 mg PO daily * Trulicity 3mg SC Qwk * HbA1c 7.5% (10/02/23) ASSESSMENT: 10/02: * Patient received total 24 units of insulin yesterday; 12 units basal and 12 units bolus. * BSG at dinner was low at 64 mg/dl and patient did not require anymore bolus insulin at dinner or HS yesterday. * Novolog CR was loosened to 15 to prevent hypoglycemia. * Basal dose continued the same. 10/01/23: * Isai is a 68 YOM admitted with diarrhea and vomitting, presently resolved awaiting placement with a history of T2DM. Pharmacy has been consulted for glycemic management while inpatient. * Isai received 21 units of insulin yesterday (10 were basal) * Fasting BSG elevated this AM, basal insulin increased by 20% * Novolog parameters initiated at around a weight based stress of 2, seems to be covering and correcting adequately at this time, no change PLAN FOR INPATIENT GLYCEMIC CONTROL: * Hold outpatient oral diabetes medications * Basal insulin * Lantus 12 units SC QAM * Bolus insulin * NovoLog per scale ACHS or Q6hrs while NPO * Goal Range: Low 110 mg/dL - High 140 mg/dL * Correction Factor: 30 mg/dL/unit * Nutritional / Prandial insulin per carb ratio of 1 unit per 15 grams CHO consumed
[2023-10-02] MEDS: FUROSEMIDE 20 MG TAB PO SCH (13:33)
[2023-10-02] MEDS: SIMVASTATIN 40 MG TAB PO SCH (20:42)
[2023-10-03 07:28] LABS: Hematocrit (blood only) 29.6 % (42.0-52.0); Hemoglobin 10.1 g/dl (14.0-18.0); Mean Corpuscular Hemoglobin 32.5 pg (25.0-34.0); Mean Corpuscular Hgb Conc 34.1 g/dL (32.0-36.0); Mean Corpuscular Volume 95.2 fL (80.0-100.0); Mean Platelet Volume 9.9 fL (9.4-12.4); Platelet Count 183 K/uL (130-400); RDW Coefficient of Variation 12.4 % (11.5-14.5); RDW Standard Deviation 43.5 fL (36.4-46.3); Red Blood Count 3.11 M/uL (4.70-6.10); White Blood Count 4.05 K/ul (4.8-10.8)
[2023-10-03 07:54] LABS: BUN Creatinine Ratio 22.2 (10-20); Calcium 8.5 mg/dl (8.6-10.3); Creatinine Clr Calc Pharmacy 144.8 ml/min; Est GFR (African American) 133.8 ml/min; Est GFR (Non-African American) 115.5 ml/min; Magnesium 1.5 mg/dl (1.7-2.4); Phosphorus 3.4 mg/dl (2.5-4.9); Potassium 4.5 mmol/L (3.5-5.1)
[2023-10-03] MEDS: clonazePAM 0.5 MG TAB PO SCH ×3 (09:30→20:45)
[2023-10-03] MEDS: ARTIFICIAL TEARS OP SCH ×2 (09:30→20:45)
[2023-10-03] MEDS: INSULIN ASPART PER UNIT CHARGE SC SCH ×4 (09:30→20:46)
[2023-10-03] MEDS: cefTRIAXone SODIUM 2,000 MG in DEXTROSE 5 % MINI-B 50 ML IV SCH (09:31)
[2023-10-03] MEDS: CLOTRIMAZOLE 1% CR 15 GM TUBE EXT SCH ×2 (09:31→20:46)
[2023-10-03] MEDS: FUROSEMIDE 20 MG TAB PO SCH (09:32)
[2023-10-03] MEDS: GABAPENTIN 300 MG CAP PO SCH ×3 (09:33→20:46)
[2023-10-03] MEDS: FINASTERIDE 5 MG TAB PO SCH (09:33)
[2023-10-03] MEDS: MAGNESIUM CHLORIDE W/CALCIUM 64MG DELAYED REL TAB PO SCH (09:34)
[2023-10-03] MEDS: NYSTATIN SUSP 500,000 U/5 ML UDC PO SCH ×4 (09:35→20:47)
[2023-10-03] MEDS: MULTIVITAMIN TAB PO SCH (09:35)
[2023-10-03] MEDS: METOPROLOL TARTRATE 25 MG TAB PO SCH ×2 (09:36→20:47)
[2023-10-03] MEDS: SERTRALINE HCL 50 MG TABLET PO SCH (09:36)
[2023-10-03] MEDS: OXcarbazepine 150 MG TABLET PO SCH ×2 (09:37→20:47)
[2023-10-03] MEDS: PANTOprazole 40 MG TAB PO SCH (09:37)
[2023-10-03] MEDS: TAMSULOSIN HCL 0.4 MG CAP PO SCH (09:38)
[2023-10-03] MEDS: QUEtiapine FUMARATE 100 MG TABLET PO SCH ×2 (09:38→20:48)
[2023-10-03] MEDS: UMECLIDINIUM BROMIDE 62.5MCG/BLISTER 7 PUFFS/INHALER INH SCH (09:38)
[2023-10-03] MEDS: CEROVITE ADV FORMULA TAB PO SCH (09:39)
[2023-10-03] MEDS: ACETAMINOPHEN 325 MG TAB PO PRN ×2 (11:05→20:45)
--- NOTE | 2023-10-03 13:54 | Pharmacy Report ---
Pharmacy Glycemic Short Note 2 - Date of Service October 03, 2023 - Glycemic Short BSG Results (Last 24 hours): 10/02/23 10/02/23 10/03/23 17:17 19:49 06:46 Glucose 85 POC Glucose 72 159 H 10/03/23 10/03/23 08:22 12:34 Glucose POC Glucose 119 H 252 H OUTPATIENT ANTIDIABETIC REGIMEN: * metformin 1000mg BID * glimeperide 1 mg PO daily * Trulicity 3mg SC Qwk * HbA1c 7.5% (10/02/23) ASSESSMENT: 10/03: * Patient received total 22 units of insulin yesterday; 12 units basal and 10 units bolus. * BSG at dinner time yesterday = 72 mg/dl- was better than the day before but still lower than expected. * Basal insulin moved to HS today to see if this might prevent low BSG at dinner. However, holding the AM basal did result in a higher pre-lunch BSG today (252 mg/dl). 10/02: * Patient received total 24 units of insulin yesterday; 12 units basal and 12 units bolus. * BSG at dinner was low at 64 mg/dl and patient did not require anymore bolus insulin at dinner or HS yesterday. * Novolog CR was loosened to 15 to prevent hypoglycemia. * Basal dose continued the same. 10/01/23: * Isai is a 68 YOM admitted with diarrhea and vomitting, presently resolved awaiting placement with a history of T2DM. Pharmacy has been consulted for glycemic management while inpatient. * Isai received 21 units of insulin yesterday (10 were basal) * Fasting BSG elevated this AM, basal insulin increased by 20% * Novolog parameters initiated at around a weight based stress of 2, seems to be covering and correcting adequately at this time, no change PLAN FOR INPATIENT GLYCEMIC CONTROL: * Hold outpatient oral diabetes medications * Basal insulin * Lantus 12 units SC HS * Bolus insulin * NovoLog per scale ACHS or Q6hrs while NPO * Goal Range: Low 110 mg/dL - High 140 mg/dL * Correction Factor: 30 mg/dL/unit * Nutritional / Prandial insulin per carb ratio of 1 unit per 15 grams CHO consumed
--- NOTE | 2023-10-03 15:15 | Hospitalist Progress Note ---
Date of Service October 03, 2023 Assessment & Plan (1) Ileus: Plan Mr. Kendall is a 68 year old gentleman with history of cognitive impairment/Klinefelter syndrome, cerebral palsy, DM2, COPD, PVD, TRINIDAD, GERD, chronic stasis dermatitis, hearing loss, osteoporosis, and valvular heart disease (mild MR/TR/Aortic Stenosis) who was admitted on 09/16 due to abdominal pain and diarrhea. Patient was found to have SBO v ileus and managed conservatively. No acute changes in management. Course prolonged due to placement issues and coordinating with [facility]. #Hypomagnesemia: Monitor and replete #Acute on Chronic hyponatremia*stable: Patient at baseline, continue to monitor; continue qam lasix 10mg #Acute toxic metabolic encephalopathy, likely 2/2 UTI #Intellectual Disability, Klinefelters #Cerebral Palsy overnight 09/26-09/27; was bradycardic, low bp and SaO2 in 80s on 2L NC O2. UA s/o uti, atb started, UCx w/ GNB; treat as follows Psychiatry consulted: neuropsych meds tapering, recommendations place 09/28 - appreciate recs 09/28. Will gradually resume meds w/ psy recs. Plan to taper quetiapine to stop. -Quetiapine taper to be completed on 10/03, d/c on 10/04 -Gabapentin resumed Outside record review demonstrates multiple antipsychotic medication changes (Risperidone discontinued 08/2023, quetiapine started) #Viral Gastroenteritis *resolved #SBO versus ileus: Likely secondary to gastroenteritis Admitting CT abdomen/pelvis suggestive of ileus Repeat CT head scan of the abdomen pelvis did not show any intestinal obstruction. General surgery evaluated, managed conservatively C.Diff negative Continues to tolerate diet, denies pain this am #Hypoglycemic episode followed by unresponsive episode 09/22/2023: Status post hypoglycemia protocol with improvement. Continue to monitor. #Complicated UTI 2/2 Klebsiella: see above, zosyn 09/27. f/u Cx. zosyn to rocephin 09/28. EOT 10/08, transition to po upon discharge Other chronic medical conditions: Continue with/resume home meds as and when able. #Chronic diastolic heart failure (EF 60-65%, TTE 2022), stable #Prior SVT/PAF not on anticoagulation due to fall risk, patient NSR, Continue Metoprolol #mild #PVD on Pentoxifylline #Diabetes mellitus type 2: Sliding scale insulin while in hospital. Resume home Trulicity, metformin and amaryl #COPD: Not in acute exacerbation. DVT prophylaxis. SCDs Re: Thrombocytopenia, hematoma DNR Awaiting placement. Admission and Anticipated Discharge Date Admission Date: September 16, 2023 Subjective NAEO, evaluated at bedside. Physical Exam Constitutional: WD/WN, vitals as above Respiratory: normal respiratory effort, lungs clear to auscultation Cardiovascular: RRR, no murmur, no edema Results & Data Results & Data Vital Signs (Past 12 Hours) Vital Signs Temp Pulse Pulse Pulse Resp BP Pulse Ox 10/03/23 11:18 36.4 C L 70 14 124/68 99 10/03/23 08:19 36.5 C 79 12 120/62 97 10/03/23 05:50 56 L 10/03/23 03:34 37 C 58 L 18 108/63 100 O2 Del Method 10/03/23 11:18 Room Air 10/03/23 08:19 Room Air 10/03/23 05:50 10/03/23 03:34 Room Air Laboratory Results Short CBC 10/03/23 Range/Units 06:46 WBC 4.05 L (4.8-10.8) K/ul Hgb 10.1 L (14.0-18.0) g/dl Hct 29.6 L (42.0-52.0) % Plt Count 183 (130-400) K/uL BMP 10/03/23 06:46 Sodium 126 L Potassium 4.5 Chloride 92 L Carbon Dioxide 31 BUN 10 Creatinine 0.45 L Glucose 85 Calcium 8.5 L Medications Administered Home Medications Medication Instructions Recorded Confirmed Last Taken Lactobacillus rhamnosus GG 15 2 cap PO DAILY 09/16/23 09/16/23 Unknown billion cell sprinkle capsule (Culturelle) acetaminophen 325 mg tablet 650 mg PO Q4 PRN Fever 09/16/23 09/16/23 Unknown (Tylenol) acetaminophen 650 mg 1,300 mg PO AMHS 09/16/23 09/16/23 Unknown tablet,extended release albuterol sulfate 90 mcg/actuation 2 puff inhalation Q4 PRN Shortness 09/16/23 09/16/23 Unknown aerosol inhaler Of Breath Or Wheezing bismuth subsalicylate 262 mg 1 tab PO Q12 PRN .UPSET STOMACH 09/16/23 09/16/23 Unknown chewable tablet (Pepto-Bismol) carboxymethylcellulose sodium 0.5 1 drp OPB BID 09/16/23 09/16/23 Unknown % eye drops (Refresh Tears) cholecalciferol (vitamin D3) 25 25 mcg PO QAM 09/16/23 09/16/23 Unknown mcg (1,000 unit) capsule (Vitamin D3) clonazepam 0.5 mg tablet 0.5 mg PO TID 09/16/23 09/16/23 Unknown diphenhydramine HCl 12.5 mg 12.5 mg PO BID PRN Itching 09/16/23 09/16/23 Unknown chewable tablet dulaglutide 3 mg/0.5 mL 3 mg subcut .WEEKLY 09/16/23 09/16/23 Unknown subcutaneous pen injector (Trulicity) finasteride 5 mg tablet 5 mg PO QAM 09/16/23 09/16/23 Unknown food supplemt, lactose-reduced 1 ea PO BID 09/16/23 09/16/23 Unknown furosemide 20 mg tablet 20 mg PO DAILY 09/16/23 09/16/23 Unknown gabapentin 300 mg capsule 300 mg PO TID 09/16/23 09/16/23 Unknown glimepiride 1 mg tablet 1 mg PO DAILY 09/16/23 09/16/23 Unknown guaifenesin 100 mg/5 mL oral liquid 200 mg PO TID PRN Cough 09/16/23 09/16/23 Unknown guaifenesin 600 mg tablet, 600 mg PO Q12H 09/16/23 09/16/23 Unknown extended release 12 hr (Mucinex) loperamide 2 mg capsule (Imodium 2 mg PO TID PRN Diarrhea 09/16/23 09/16/23 Unknown A-D) loratadine 10 mg tablet 10 mg PO DAILY 09/16/23 09/16/23 Unknown magnesium oxide 400 mg PO BID 09/16/23 09/16/23 Unknown metformin 1,000 mg tablet 1,000 mg PO BID 09/16/23 09/16/23 Unknown metoprolol tartrate 25 mg tablet 12.5 mg PO BID 09/16/23 09/16/23 Unknown multivitamin 1 tab PO DAILY 09/16/23 09/16/23 Unknown neomycin-bacitracn Zn-polymyxn 3.5 1 applic topical DIRECTED WOUND 09/16/23 09/16/23 Unknown mg-400 unit-5,000 unit top oint CARE pkt (Neosporin([id number])) oxcarbazepine 300 mg tablet 300 mg PO BID 09/16/23 09/16/23 Unknown pentoxifylline 400 mg 400 mg PO TID 09/16/23 09/16/23 Unknown tablet,extended release polyethylene glycol 3350 17 gram 17 g PO DIRECTED PRN 09/16/23 09/16/23 Unknown oral powder packet (Miralax) Constipation quetiapine 100 mg tablet 100 mg PO TID 09/16/23 09/16/23 Unknown sertraline 50 mg tablet 50 mg PO DAILY 09/16/23 09/16/23 Unknown simvastatin 40 mg tablet 40 mg PO QPM 09/16/23 09/16/23 Unknown tamsulosin 0.4 mg capsule 0.4 mg PO DAILY 09/16/23 09/16/23 Unknown trazodone 50 mg tablet 50 mg PO HS 09/16/23 09/16/23 Unknown umeclidinium 62.5 mcg/actuation 1 inh inhalation DAILY 09/16/23 09/16/23 Unknown blister powder for inhalation (Incruse Ellipta) Active Medications Generic Name Dose Route Start Last Admin Trade Name Freq PRN Reason Stop Dose Admin Acetaminophen 650 mg 09/16/23 04:12 10/03/23 11:05 Acetaminophen 325 Mg Tab PO 10/16/23 04:11 650 mg Q4H PRN Administration Pain or Fever Al Hydrox/Mg Hydrox/Simethicone 15 ml 09/20/23 15:43 09/29/23 13:32 Aluminum/Magnesium Susp 30 Ml Udc PO 10/20/23 15:42 15 ml Q6H PRN Administration Dyspepsia Artificial Tears 1 drops 09/16/23 09:00 10/03/23 09:30 Artificial Tears OP 10/16/23 08:59 1 drops BID SEN Administration Bismuth Subsalicylate 1 tab 09/16/23 03:27 09/28/23 09:03 Bismuth Subsalicylate 262 Mg Chew PO 10/16/23 03:26 1 tab Q12 PRN Administration .UPSET STOMACH Clonazepam 0.5 mg 09/16/23 08:00 10/03/23 09:30 Clonazepam 0.5 Mg Tab PO 10/16/23 07:59 0.5 mg TID@0800,1600,2000 SEN Administration Clotrimazole 1 appln 09/22/23 12:30 10/03/23 09:31 Clotrimazole 1% Cr 15 Gm Tube EXT 10/22/23 12:29 1 appln BID SEN Administration Dextrose 25 - 50 ml 09/16/23 02:57 09/22/23 17:19 Dextrose 50% 50 Ml Syringe IV 10/16/23 02:56 50 ml UD PRN Administration Hypoglycemia Protocol Protocol Finasteride 5 mg 09/16/23 09:00 10/03/23 09:33 Finasteride 5 Mg Tab PO 10/16/23 08:59 5 mg QAM SEN Administration Furosemide 10 mg 10/02/23 10:45 10/03/23 09:32 Furosemide 20 Mg Tab PO 11/01/23 10:44 10 mg QAM SEN Administration Gabapentin 300 mg 09/16/23 09:00 10/03/23 13:31 Gabapentin 300 Mg Cap PO 10/16/23 08:59 300 mg TID SEN Administration Ceftriaxone Sodium 2,000 mg/ 50 mls @ 100 mls/hr 09/28/23 09:00 10/03/23 10:38 Dextrose IV 10/08/23 08:59 Infused Q24H SEN Infusion Protocol Insulin Aspart 0 units 09/18/23 11:30 10/03/23 13:30 Insulin Aspart Per Unit Charge SC 10/18/23 11:29 8 units ACHS SEN Administration Magnesium Chloride 64 mg 09/26/23 09:00 10/03/23 09:34 Magnesium Chloride W/Calcium 64mg Delayed Rel Tab PO 10/26/23 08:59 64 mg QAM SEN Administration Metoprolol Tartrate 12.5 mg 09/16/23 09:00 10/03/23 09:36 Metoprolol Tartrate 25 Mg Tab PO 10/16/23 08:59 12.5 mg BID SEN Administration Miscellaneous 15 - 30 gm 09/16/23 02:57 10/01/23 17:00 Carbohydrates For Hypoglycemia PO 10/16/23 02:56 15 gm UD PRN Administration Hypoglycemia Protocol Multivitamins 1 tab 09/16/23 09:00 10/03/23 09:35 Multivitamin Tab PO 10/16/23 08:59 1 tab DAILY SEN Administration Multivitamins/Minerals 1 tab 09/30/23 19:00 10/03/23 09:39 Cerovite Adv Formula Tab PO 10/30/23 18:59 1 tab QAM SEN Administration Nystatin 5 ml 09/30/23 21:00 10/03/23 13:31 Nystatin Susp 500,000 U/5 Ml Udc PO 10/30/23 20:59 5 ml QID SEN Administration Oxcarbazepine 300 mg 09/16/23 09:00 10/03/23 09:37 Oxcarbazepine 150 Mg Tablet PO 10/16/23 08:59 300 mg BID SEN Administration Pantoprazole Sodium 40 mg 09/19/23 12:45 10/03/23 09:37 Pantoprazole 40 Mg Tab PO 10/19/23 12:44 40 mg QAM SEN Administration Quetiapine Fumarate 100 mg 09/29/23 09:00 10/03/23 09:38 Quetiapine Fumarate 100 Mg Tablet PO 10/29/23 08:59 100 mg BID SEN Administration Sertraline HCl 50 mg 09/16/23 09:00 10/03/23 09:36 Sertraline Hcl 50 Mg Tablet PO 10/16/23 08:59 50 mg DAILY SEN Administration Simethicone 80 mg 09/26/23 13:16 10/01/23 09:20 Simethicone 80 Mg Chew PO 10/26/23 13:15 80 mg Q6H PRN Administration Flatulence Simvastatin 40 mg 09/16/23 21:00 10/02/23 20:42 Simvastatin 40 Mg Tab PO 10/16/23 20:59 40 mg QPM SEN Administration Tamsulosin HCl 0.4 mg 09/16/23 09:00 10/03/23 09:38 Tamsulosin Hcl 0.4 Mg Cap PO 10/16/23 08:59 0.4 mg DAILY SEN Administration Umeclidinium [place] 1 puffs 09/16/23 09:00 10/03/23 09:38 Umeclidinium [place] 62.5mcg/Blister 7 Puffs/Inhaler INH 10/16/23 08:59 1 puffs DAILY SEN Administration
--- NOTE | 2023-10-03 16:20 | Communication Note ---
Date of Service: October 03, 2023 Dr. Priest confirmed patient's Seroquel dosing per Dr. Montague was Seroquel 100 mg TID. Patient is awaiting placement but [facility] will be notified re: possible confusion with Trileptal dosing as 300 mg tabs.
[2023-10-03] MEDS: LANTUS PER UNIT CHARGE SQ SCH (20:46)
[2023-10-03] MEDS: SIMVASTATIN 40 MG TAB PO SCH (20:48)
[2023-10-03] MEDS ORDERED: SODIUM CHLORIDE 0.9% 1,000 ML IV SCH (23:45)
[2023-10-04 00:33] LABS: Base Excess ABG 5.3 mEq/L (-9-1.8); HCO3 ABG 31 mmol/L (19-24); Oxygen Saturation ABG 97.8 % (90-95); PCO2 ABG 49 mmHg (35-46); PO2 ABG 90 mmHg (80-95); pH ABG 7.41 (7.35-7.45)
[2023-10-04 00:44] LABS: Basophils # (auto) 0.04 K/uL (0.00-0.20); Basophils % (auto) 0.9 %; Eosinophils # (auto) 0.18 K/uL (0.00-0.50); Eosinophils % (auto) 3.8 %; Hematocrit (blood only) 26.5 % (42.0-52.0); Hemoglobin 9.2 g/dl (14.0-18.0); Lymphocytes # (auto) 1.49 K/uL (1.20-3.40); Lymphocytes % (auto) 31.7 %; Mean Corpuscular Hemoglobin 32.7 pg (25.0-34.0); Mean Corpuscular Hgb Conc 34.7 g/dL (32.0-36.0); Mean Corpuscular Volume 94.3 fL (80.0-100.0); Mean Platelet Volume 9.8 fL (9.4-12.4); Monocytes # (auto) 0.33 K/uL (0.11-0.59); Neutrophils # (auto) 2.66 K/uL (1.40-6.50); Neutrophils % (auto) 56.6 %; Platelet Count 178 K/uL (130-400); RDW Coefficient of Variation 12.5 % (11.5-14.5); RDW Standard Deviation 43.7 fL (36.4-46.3); Red Blood Count 2.81 M/uL (4.70-6.10)
[2023-10-04 00:49] LABS: Allen Test Pos (Pos)
[2023-10-04] MEDS ORDERED: SODIUM CHLORIDE 0.9% 1,000 ML IV SCH (01:00)
[2023-10-04 01:11] LABS: Albumin Globulin Ratio 1.2 (0.9-2); Albumin Level 2.8 gm/dl (3.4-5.0); BUN Creatinine Ratio 24.5 (10-20); Bilirubin,Total 0.2 mg/dl (0.2-1.0); Est GFR (African American) 125.1 ml/min; Globulin 2.3 gm/dl (2.5-4.0); Magnesium 1.2 mg/dl (1.7-2.4); Potassium 4.3 mmol/L (3.5-5.1); Total Protein 5.1 gm/dl (6.0-8.3)
[2023-10-04] MEDS: MAGNESIUM SULFATE / D5W 1 GM/100 ML BAG IV SCH ×2 (01:36→03:36)
[2023-10-04 05:52] LABS: BUN Creatinine Ratio 22.6 (10-20); Calcium 8.1 mg/dl (8.6-10.3); Est GFR (African American) 125.1 ml/min; Magnesium 1.8 mg/dl (1.7-2.4); Potassium 4.8 mmol/L (3.5-5.1)
--- NOTE | 2023-10-04 07:15 | Electrocardiogram Report ---
Test Reason : Blood Pressure : / mmHG Vent. Rate : 053 BPM Atrial Rate : 053 BPM P-R Int : 222 ms QRS Dur : 124 ms QT Int : 462 ms P-R-T Axes : 027 -01 003 degrees QTc Int : 433 ms Sinus bradycardia with 1st degree A-V block Right bundle branch block Abnormal ECG When compared with ECG of 15-SEP-2023 22:18, Premature supraventricular complexes are no longer Present Vent. rate has decreased BY 30 BPM Confirmed by Sreedhar Dowling ([id number]) on 10/04/2023 7:14:57 AM Referred By: REFERRED SELF Confirmed By:Evan Dowling
[2023-10-04] MEDS: NYSTATIN SUSP 500,000 U/5 ML UDC PO SCH ×3 (08:30→17:11)
[2023-10-04] MEDS: ARTIFICIAL TEARS OP SCH ×2 (08:30→21:19)
[2023-10-04] MEDS: UMECLIDINIUM BROMIDE 62.5MCG/BLISTER 7 PUFFS/INHALER INH SCH (08:30)
[2023-10-04] MEDS: PANTOprazole 40 MG TAB PO SCH (08:31)
[2023-10-04] MEDS: OXcarbazepine 150 MG TABLET PO SCH ×2 (08:31→21:19)
[2023-10-04] MEDS: FINASTERIDE 5 MG TAB PO SCH (08:31)
[2023-10-04] MEDS: MULTIVITAMIN TAB PO SCH (08:31)
[2023-10-04] MEDS: clonazePAM 0.5 MG TAB PO SCH ×3 (08:31→21:18)
[2023-10-04] MEDS: SERTRALINE HCL 50 MG TABLET PO SCH (08:31)
[2023-10-04] MEDS: MAGNESIUM CHLORIDE W/CALCIUM 64MG DELAYED REL TAB PO SCH (08:31)
[2023-10-04] MEDS: CLOTRIMAZOLE 1% CR 15 GM TUBE EXT SCH ×2 (08:31→21:21)
[2023-10-04] MEDS: GABAPENTIN 300 MG CAP PO SCH ×3 (08:31→21:19)
[2023-10-04] MEDS: TAMSULOSIN HCL 0.4 MG CAP PO SCH (08:31)
[2023-10-04] MEDS: CEROVITE ADV FORMULA TAB PO SCH (08:31)
[2023-10-04] MEDS: QUEtiapine FUMARATE 100 MG TABLET PO SCH ×2 (08:31→21:19)
[2023-10-04] MEDS: cefTRIAXone SODIUM 2,000 MG in DEXTROSE 5 % MINI-B 50 ML IV SCH (08:32)
[2023-10-04] MEDS: INSULIN ASPART PER UNIT CHARGE SC SCH ×4 (09:51→21:19)
--- NOTE | 2023-10-04 10:24 | Nephrology Consultation ---
Date of Consultation October 04, 2023 Assessment & Plan (1) Hyponatremia: Patient with hyponatremia likely due to syndrome of inappropriate ADH. Urine osmolality was 281 and urine sodium of 30 which would both support SIADH. Sodium dropped to 119 yesterday but slightly up to 121 today. -Will stop IV fluids -Will start urea 15 g twice daily. -Okay to monitor sodium daily -Encourage high-protein diet 3 meals. Patient should be allowed to salt his food. -Fluid limit 1.5 L daily. (2) Hypomagnesemia: Patient has had intermittent hypomagnesemia. Agree with the current rate of supplementation. History of Present Illness Reason for Consultation: Hyponatremia Requesting Physician: Cindy Priest MD Attending Physician: Cindy Priest MD History of Present Illness Mr. Kendall is a 68 year old gentleman being seen for hyponatremia. Past medical history of cognitive impairment/Klinefelter syndrome, cerebral palsy, DM2, COPD, PVD, TRINIDAD, GERD, chronic stasis dermatitis, hearing loss, osteoporosis, and valvular heart disease (mild MR/TR/Aortic Stenosis) who was admitted on 09/16 due to abdominal pain and diarrhea. Patient was found to have SBO v ileus and managed conservatively. Patient is now eating and drinking. His sodium dropped to 119 yesterday and slightly up to 121 today with IV fluids. Urine osmolality was 281, urine sodium of 30. Patient is unable to give history due to mental retardation. Allergies Allergy/AdvReac Type Severity Reaction Status Date / Time lactose Allergy Intermediate GI SYMPTOMS Verified 09/16/23 03:01 aspirin Allergy Unknown UNKNOWN Verified 09/16/23 03:01 REACTION cephalexin Allergy Unknown UNKNOWN Verified 09/16/23 03:01 REACTION Cephalosporins Allergy Unknown UNKNOWN Verified 09/16/23 03:01 REACTION Corticosteroids Allergy Unknown UNKNOWN Verified 09/16/23 03:01 (Glucocorticoids) REACTION methylprednisolone Allergy Unknown UNKNOWN Verified 09/16/23 03:01 REACTION shellfish derived Allergy Unknown UNKNOWN Verified 09/16/23 03:01 REACTION Home Medications Medication Instructions Recorded Confirmed Type Lactobacillus rhamnosus GG 15 2 cap PO DAILY 09/16/23 09/16/23 History billion cell sprinkle capsule (Culturelle) acetaminophen 325 mg tablet 650 mg PO Q4 PRN Fever 09/16/23 09/16/23 History (Tylenol) acetaminophen 650 mg 1,300 mg PO AMHS 09/16/23 09/16/23 History tablet,extended release albuterol sulfate 90 mcg/actuation 2 puff inhalation Q4 PRN Shortness 09/16/23 09/16/23 History aerosol inhaler Of Breath Or Wheezing bismuth subsalicylate 262 mg 1 tab PO Q12 PRN .UPSET STOMACH 09/16/23 09/16/23 History chewable tablet (Pepto-Bismol) carboxymethylcellulose sodium 0.5 1 drp OPB BID 09/16/23 09/16/23 History % eye drops (Refresh Tears) cholecalciferol (vitamin D3) 25 25 mcg PO QAM 09/16/23 09/16/23 History mcg (1,000 unit) capsule (Vitamin D3) clonazepam 0.5 mg tablet 0.5 mg PO TID 09/16/23 09/16/23 History diphenhydramine HCl 12.5 mg 12.5 mg PO BID PRN Itching 09/16/23 09/16/23 History chewable tablet dulaglutide 3 mg/0.5 mL 3 mg subcut .WEEKLY 09/16/23 09/16/23 History subcutaneous pen injector (Trulicity) finasteride 5 mg tablet 5 mg PO QAM 09/16/23 09/16/23 History food supplemt, lactose-reduced 1 ea PO BID 09/16/23 09/16/23 History furosemide 20 mg tablet 20 mg PO DAILY 09/16/23 09/16/23 History gabapentin 300 mg capsule 300 mg PO TID 09/16/23 09/16/23 History glimepiride 1 mg tablet 1 mg PO DAILY 09/16/23 09/16/23 History guaifenesin 100 mg/5 mL oral liquid 200 mg PO TID PRN Cough 09/16/23 09/16/23 History guaifenesin 600 mg tablet, 600 mg PO Q12H 09/16/23 09/16/23 History extended release 12 hr (Mucinex) loperamide 2 mg capsule (Imodium 2 mg PO TID PRN Diarrhea 09/16/23 09/16/23 History A-D) loratadine 10 mg tablet 10 mg PO DAILY 09/16/23 09/16/23 History magnesium oxide 400 mg PO BID 09/16/23 09/16/23 History metformin 1,000 mg tablet 1,000 mg PO BID 09/16/23 09/16/23 History metoprolol tartrate 25 mg tablet 12.5 mg PO BID 09/16/23 09/16/23 History multivitamin 1 tab PO DAILY 09/16/23 09/16/23 History neomycin-bacitracn Zn-polymyxn 3.5 1 applic topical DIRECTED WOUND 09/16/23 09/16/23 History mg-400 unit-5,000 unit top oint CARE pkt (Neosporin([id number])) oxcarbazepine 300 mg tablet 300 mg PO BID 09/16/23 09/16/23 History pentoxifylline 400 mg 400 mg PO TID 09/16/23 09/16/23 History tablet,extended release polyethylene glycol 3350 17 gram 17 g PO DIRECTED PRN 09/16/23 09/16/23 History oral powder packet (Miralax) Constipation quetiapine 100 mg tablet 100 mg PO TID 09/16/23 09/16/23 History sertraline 50 mg tablet 50 mg PO DAILY 09/16/23 09/16/23 History simvastatin 40 mg tablet 40 mg PO QPM 09/16/23 09/16/23 History tamsulosin 0.4 mg capsule 0.4 mg PO DAILY 09/16/23 09/16/23 History trazodone 50 mg tablet 50 mg PO HS 09/16/23 09/16/23 History umeclidinium 62.5 mcg/actuation 1 inh inhalation DAILY 09/16/23 09/16/23 History blister powder for inhalation (Incruse Ellipta) Patient History Medical History Severe sepsis Pica Asthma Aortic stenosis Mild per 09/2021 ECHO TRINIDAD (obstructive sleep apnea) Per records Peroneal palsy DJD (degenerative joint disease) Neuropathy TMJ (temporomandibular joint disorder) Venous insufficiency History of COVID-19 Tested positive 09/21/21 [facility]ly [facility] ([facility]). Sinus congestion only. no hospitalization. No current problems. Hyperlipidemia Depression Anxiety Osteoporosis Scoliosis GERD (gastroesophageal reflux disease) Diabetes mellitus, type 2 Chronic obstructive pulmonary disease Well controlled > hasnt used res inh for 2 yrs Cerebral palsy Neck pain Hypotension Elevated troponin Hyperglycemia Presence of IVC filter Placed in 1997 per records TRINIDAD (obstructive sleep apnea) PVD (peripheral vascular disease) Diabetes mellitus, type II GERD (gastroesophageal reflux disease) COPD (chronic obstructive pulmonary disease) Intellectual disability Lives at [facility] Tibia fracture Pneumonia Hospital-acquired pneumonia Femoral condyle fracture CAP (community acquired pneumonia) Surgical History S/P cataract surgery Left and Right History of colonoscopy History of tooth extraction History of cholecystectomy Family History Father Coronary heart disease Social History Smoking Status: Former smoker packs per day: 30; Second Hand Exposure: No; Do You Dip or Chew Tobacco: No; Hx Alcohol Use: No Hx Substance Use: No Preferred Language: Maltese Communication Ability: Unable Communication Ability Comment: MR LIVES AT [facility] Communication Tools: Other Visual Impairment: No Limitations Hearing Ability: Use of Hearing Aid Stock Buyer Required: No Beliefs That Will Affect Care: None marital status: Single marital status details: Skills Current Living Situation: Personal Care Facility Current Living Situation Comment: longterm current occupational status: disabled How many Children do You have: 0 Other Information That Helps Us Care for You: No Feels Safe at Home: Yes Safety Concerns: Feels Safe At This Time Diet: diabetic caffeine: No Assistive Devices: Mechanical Lift and Wheelchair Review of Systems 2 Review of Systems: Unable to obtain due to mental retardation Physical Exam 2 Physical Exam: General exam: Appears comfortable, no acute distress HEENT: Pupils are equal and reactive to light Neck: No JVD, neck is supple trachea is midline Respiratory system: Clear breath sounds bilaterally. Gastrointestinal: Abdomen is soft, non distended, non tender, bowel sounds are present CVS: Regular rate and rhythm. No murmurs, rubs or gallops Musculoskeletal: No joint or muscle tenderness Extremities: Non tender, no edema, peripheral pulses are present Neuro: Oriented, no tremors, no focal neurological deficits Skin: No rashes Results & Data Vital Signs (Past 12 Hours) Vital Signs Temp Pulse Pulse Resp BP BP Pulse Ox 10/04/23 08:34 36.5 C 56 L 17 106/61 97 10/04/23 04:20 36.3 C L 49 L 16 97/55 L 96 10/03/23 23:50 103/64 10/03/23 23:36 52 L 61/38 L 10/03/23 23:24 51 L 10/03/23 22:58 36.9 C 56 L 16 100/59 L 95 O2 Del Method 10/04/23 08:34 Room Air 10/04/23 04:20 Room Air 10/03/23 23:50 10/03/23 23:36 10/03/23 23:24 10/03/23 22:58 Room Air Laboratory Results 10/04/23 05:24 10/04/23 00:16 WBC 4.70 L RBC 2.81 L MCV 94.3 MCH 32.7 MCHC 34.7 RDW Std Deviation 43.7 RDW Coeff of Drew 12.5 Plt Count 178 MPV 9.8 Albumin 2.8 L
[2023-10-04] MEDS: UREA (UREA-NA) 15 GM PACK PO SCH ×2 (11:25→21:20)
[2023-10-04 11:42] LABS: BUN Creatinine Ratio 18.8 (10-20); Calcium 8.3 mg/dl (8.6-10.3); Creatinine Clr Calc Pharmacy 134.2 ml/min; Est GFR (African American) 130.3 ml/min; Est GFR (Non-African American) 112.4 ml/min; Potassium 4.7 mmol/L (3.5-5.1)
--- NOTE | 2023-10-04 14:44 | Hospitalist Progress Note ---
Date of Service October 04, 2023 Assessment & Plan (1) Ileus: Plan Mr. Kendall is a 68 year old gentleman with history of cognitive impairment/Klinefelter syndrome, cerebral palsy, DM2, COPD, PVD, TRINIDAD, GERD, chronic stasis dermatitis, hearing loss, osteoporosis, and valvular heart disease (mild MR/TR/Aortic Stenosis) who was admitted on 09/16 due to abdominal pain and diarrhea. Patient was found to have SBO v ileus and managed conservatively. No acute changes in management. Course prolonged due to placement issues and coordinating with [facility]. #Hypomagnesemia: Monitor and replete #Acute on Chronic hyponatremia*worsening initiallly, now improving -Thought to be SIADH picture per Nephrology -Trialed on lasix, no improvement, downtrended notably. discontinue diuertics -Nephrology consulted: Stop IVF, start UREA BID, encourage high protein diet, FR 1.5 L -Appreciate further recommendations -BMP in am #Acute toxic metabolic encephalopathy, likely 2/2 UTI #Intellectual Disability, Klinefelters #Cerebral Palsy overnight 09/26-09/27; was bradycardic, low bp and SaO2 in 80s on 2L NC O2. UA s/o uti, atb started, UCx w/ GNB; treat as follows Psychiatry consulted: neuropsych meds tapering, recommendations placed 09/28, taper reportedly possibly too fast per 09/30 recs, continue to monitor -Continuing Quetipine 100mg BID in order to not reduce taper and to monitor for any break through behaviors -Continue Gabapentin Outside record review demonstrates multiple antipsychotic medication changes (Risperidone discontinued 08/2023, quetiapine started) #Viral Gastroenteritis *resolved #SBO versus ileus: Likely secondary to gastroenteritis Admitting CT abdomen/pelvis suggestive of ileus Repeat CT head scan of the abdomen pelvis did not show any intestinal obstruction. General surgery evaluated, managed conservatively C.Diff negative Continues to tolerate diet, denies pain this am #Hypoglycemic episode followed by unresponsive episode 09/22/2023: Status post hypoglycemia protocol with improvement. Continue to monitor. #Complicated UTI 2/2 Klebsiella: see above, zosyn 09/27. f/u Cx. zosyn to rocephin 09/28. EOT 10/08, transition to po upon discharge Other chronic medical conditions: Continue with/resume home meds as and when able. #Chronic diastolic heart failure (EF 60-65%, TTE 2022), stable #Prior SVT/PAF not on anticoagulation due to fall risk, patient NSR, Continue Metoprolol #mild #PVD on Pentoxifylline #Diabetes mellitus type 2: Sliding scale insulin while in hospital. Resume home Trulicity, metformin and amaryl #COPD: Not in acute exacerbation. #Elevated TSH iso of infection: Repeat in 4-6 weeks DVT prophylaxis. SCDs DNR Awaiting placement. Admission and Anticipated Discharge Date Admission Date: September 16, 2023 Subjective Acute 24 hour events: reported hypotensive and altered overnight. Sodium 119, with quick improvement Informed patient had "massive bowel movement" prior to episode, possible vasovagal episode Pressures much improved this am Eating well this morning, denies any acute concerns, appears at baseline from prior examination Physical Exam Constitutional: WD/WN, vitals as above Respiratory: normal respiratory effort, lungs clear to auscultation Cardiovascular: RRR, no murmur, no edema Results & Data Results & Data Vital Signs (Past 12 Hours) Vital Signs Temp Pulse Resp BP Pulse Ox O2 Del Method 10/04/23 11:38 36.6 C 54 L 17 122/70 97 Room Air 10/04/23 08:34 36.5 C 56 L 17 106/61 97 Room Air 10/04/23 04:20 36.3 C L 49 L 16 97/55 L 96 Room Air Laboratory Results Short CBC 10/04/23 Range/Units 00:16 WBC 4.70 L (4.8-10.8) K/ul Hgb 9.2 L (14.0-18.0) g/dl Hct 26.5 L (42.0-52.0) % Plt Count 178 (130-400) K/uL BMP 10/04/23 10/04/23 10/04/23 00:16 05:24 10:56 Sodium 119 L* 121 L 123 L Potassium 4.3 4.8 4.7 Chloride 88 L 89 L 91 L Carbon Dioxide 27 28 27 BUN 13 12 9 Creatinine 0.53 L 0.53 L 0.48 L Glucose 123 H 158 H 213 H Calcium 8.0 L 8.1 L 8.3 L Liver Function 10/04/23 Range/Units 00:16 Total Bilirubin 0.2 (0.2-1.0) mg/dl AST 19 (13-39) U/L ALT 16 (7-52) U/L Alkaline Phosphatase 100 (34-104) U/L Albumin 2.8 L (3.4-5.0) gm/dl Medications Administered Home Medications Medication Instructions Recorded Confirmed Last Taken Lactobacillus rhamnosus GG 15 2 cap PO DAILY 09/16/23 09/16/23 Unknown billion cell sprinkle capsule (Culturelle) acetaminophen 325 mg tablet 650 mg PO Q4 PRN Fever 09/16/23 09/16/23 Unknown (Tylenol) acetaminophen 650 mg 1,300 mg PO AMHS 09/16/23 09/16/23 Unknown tablet,extended release albuterol sulfate 90 mcg/actuation 2 puff inhalation Q4 PRN Shortness 09/16/23 09/16/23 Unknown aerosol inhaler Of Breath Or Wheezing bismuth subsalicylate 262 mg 1 tab PO Q12 PRN .UPSET STOMACH 09/16/23 09/16/23 Unknown chewable tablet (Pepto-Bismol) carboxymethylcellulose sodium 0.5 1 drp OPB BID 09/16/23 09/16/23 Unknown % eye drops (Refresh Tears) cholecalciferol (vitamin D3) 25 25 mcg PO QAM 09/16/23 09/16/23 Unknown mcg (1,000 unit) capsule (Vitamin D3) clonazepam 0.5 mg tablet 0.5 mg PO TID 09/16/23 09/16/23 Unknown diphenhydramine HCl 12.5 mg 12.5 mg PO BID PRN Itching 09/16/23 09/16/23 Unknown chewable tablet dulaglutide 3 mg/0.5 mL 3 mg subcut .WEEKLY 09/16/23 09/16/23 Unknown subcutaneous pen injector (Trulicity) finasteride 5 mg tablet 5 mg PO QAM 09/16/23 09/16/23 Unknown food supplemt, lactose-reduced 1 ea PO BID 09/16/23 09/16/23 Unknown furosemide 20 mg tablet 20 mg PO DAILY 09/16/23 09/16/23 Unknown gabapentin 300 mg capsule 300 mg PO TID 09/16/23 09/16/23 Unknown glimepiride 1 mg tablet 1 mg PO DAILY 09/16/23 09/16/23 Unknown guaifenesin 100 mg/5 mL oral liquid 200 mg PO TID PRN Cough 09/16/23 09/16/23 Unknown guaifenesin 600 mg tablet, 600 mg PO Q12H 09/16/23 09/16/23 Unknown extended release 12 hr (Mucinex) loperamide 2 mg capsule (Imodium 2 mg PO TID PRN Diarrhea 09/16/23 09/16/23 Unknown A-D) loratadine 10 mg tablet 10 mg PO DAILY 09/16/23 09/16/23 Unknown magnesium oxide 400 mg PO BID 09/16/23 09/16/23 Unknown metformin 1,000 mg tablet 1,000 mg PO BID 09/16/23 09/16/23 Unknown metoprolol tartrate 25 mg tablet 12.5 mg PO BID 09/16/23 09/16/23 Unknown multivitamin 1 tab PO DAILY 09/16/23 09/16/23 Unknown neomycin-bacitracn Zn-polymyxn 3.5 1 applic topical DIRECTED WOUND 09/16/23 09/16/23 Unknown mg-400 unit-5,000 unit top oint CARE pkt (Neosporin([id number])) oxcarbazepine 300 mg tablet 300 mg PO BID 09/16/23 09/16/23 Unknown pentoxifylline 400 mg 400 mg PO TID 09/16/23 09/16/23 Unknown tablet,extended release polyethylene glycol 3350 17 gram 17 g PO DIRECTED PRN 09/16/23 09/16/23 Unknown oral powder packet (Miralax) Constipation quetiapine 100 mg tablet 100 mg PO TID 09/16/23 09/16/23 Unknown sertraline 50 mg tablet 50 mg PO DAILY 09/16/23 09/16/23 Unknown simvastatin 40 mg tablet 40 mg PO QPM 09/16/23 09/16/23 Unknown tamsulosin 0.4 mg capsule 0.4 mg PO DAILY 09/16/23 09/16/23 Unknown trazodone 50 mg tablet 50 mg PO HS 09/16/23 09/16/23 Unknown umeclidinium 62.5 mcg/actuation 1 inh inhalation DAILY 09/16/23 09/16/23 Unknown blister powder for inhalation (Incruse Ellipta) Active Medications Generic Name Dose Route Start Last Admin Trade Name Freq PRN Reason Stop Dose Admin Acetaminophen 650 mg 09/16/23 04:12 10/03/23 20:45 Acetaminophen 325 Mg Tab PO 10/16/23 04:11 650 mg Q4H PRN Administration Pain or Fever Al Hydrox/Mg Hydrox/Simethicone 15 ml 09/20/23 15:43 09/29/23 13:32 Aluminum/Magnesium Susp 30 Ml Udc PO 10/20/23 15:42 15 ml Q6H PRN Administration Dyspepsia Artificial Tears 1 drops 09/16/23 09:00 10/04/23 08:30 Artificial Tears OP 10/16/23 08:59 1 drops BID SEN Administration Bismuth Subsalicylate 1 tab 09/16/23 03:27 09/28/23 09:03 Bismuth Subsalicylate 262 Mg Chew PO 10/16/23 03:26 1 tab Q12 PRN Administration .UPSET STOMACH Clonazepam 0.5 mg 09/16/23 08:00 10/04/23 08:31 Clonazepam 0.5 Mg Tab PO 10/16/23 07:59 0.5 mg TID@0800,1600,2000 SEN Administration Clotrimazole 1 appln 09/22/23 12:30 10/04/23 08:31 Clotrimazole 1% Cr 15 Gm Tube EXT 10/22/23 12:29 1 appln BID SEN Administration Dextrose 25 - 50 ml 09/16/23 02:57 09/22/23 17:19 Dextrose 50% 50 Ml Syringe IV 10/16/23 02:56 50 ml UD PRN Administration Hypoglycemia Protocol Protocol Finasteride 5 mg 09/16/23 09:00 10/04/23 08:31 Finasteride 5 Mg Tab PO 10/16/23 08:59 5 mg QAM SEN Administration Furosemide 10 mg 10/02/23 10:45 10/03/23 09:32 Furosemide 20 Mg Tab PO 11/01/23 10:44 10 mg QAM SEN Administration Gabapentin 300 mg 09/16/23 09:00 10/04/23 08:31 Gabapentin 300 Mg Cap PO 10/16/23 08:59 300 mg TID SEN Administration Ceftriaxone Sodium 2,000 mg/ 50 mls @ 100 mls/hr 09/28/23 09:00 10/04/23 10:30 Dextrose IV 10/08/23 08:59 Infused Q24H SEN Infusion Protocol Insulin Aspart 0 units 09/18/23 11:30 10/04/23 13:49 Insulin Aspart Per Unit Charge SC 10/18/23 11:29 5 units ACHS SEN Administration Insulin Glargine 12 units 10/03/23 21:00 10/03/23 20:46 Lantus Per Unit Charge SQ 11/02/23 20:59 12 units HS SEN Administration Magnesium Chloride 64 mg 09/26/23 09:00 10/04/23 08:31 Magnesium Chloride W/Calcium 64mg Delayed Rel Tab PO 10/26/23 08:59 64 mg QAM SEN Administration Metoprolol Tartrate 12.5 mg 09/16/23 09:00 10/03/23 20:47 Metoprolol Tartrate 25 Mg Tab PO 10/16/23 08:59 12.5 mg BID SEN Administration Miscellaneous 15 - 30 gm 09/16/23 02:57 10/01/23 17:00 Carbohydrates For Hypoglycemia PO 10/16/23 02:56 15 gm UD PRN Administration Hypoglycemia Protocol Multivitamins 1 tab 09/16/23 09:00 10/04/23 08:31 Multivitamin Tab PO 10/16/23 08:59 1 tab DAILY SEN Administration Multivitamins/Minerals 1 tab 09/30/23 19:00 10/04/23 08:31 Cerovite Adv Formula Tab PO 10/30/23 18:59 1 tab QAM SEN Administration Nystatin 5 ml 09/30/23 21:00 10/04/23 08:30 Nystatin Susp 500,000 U/5 Ml Udc PO 10/30/23 20:59 5 ml QID SEN Administration Oxcarbazepine 300 mg 09/16/23 09:00 10/04/23 08:31 Oxcarbazepine 150 Mg Tablet PO 10/16/23 08:59 300 mg BID SEN Administration Pantoprazole Sodium 40 mg 09/19/23 12:45 10/04/23 08:31 Pantoprazole 40 Mg Tab PO 10/19/23 12:44 40 mg QAM SEN Administration Quetiapine Fumarate 100 mg 09/29/23 09:00 10/04/23 08:31 Quetiapine Fumarate 100 Mg Tablet PO 10/29/23 08:59 100 mg BID SEN Administration Sertraline HCl 50 mg 09/16/23 09:00 10/04/23 08:31 Sertraline Hcl 50 Mg Tablet PO 10/16/23 08:59 50 mg DAILY SEN Administration Simethicone 80 mg 09/26/23 13:16 10/01/23 09:20 Simethicone 80 Mg Chew PO 10/26/23 13:15 80 mg Q6H PRN Administration Flatulence Simvastatin 40 mg 09/16/23 21:00 10/03/23 20:48 Simvastatin 40 Mg Tab PO 10/16/23 20:59 40 mg QPM SEN Administration Tamsulosin HCl 0.4 mg 09/16/23 09:00 10/04/23 08:31 Tamsulosin Hcl 0.4 Mg Cap PO 10/16/23 08:59 0.4 mg DAILY SEN Administration Umeclidinium [place] 1 puffs 09/16/23 09:00 10/04/23 08:30 Umeclidinium [place] 62.5mcg/Blister 7 Puffs/Inhaler INH 10/16/23 08:59 1 puffs DAILY SEN Administration Urea 15 gm 10/04/23 09:45 10/04/23 11:25 Urea (Urea-Na) 15 Gm Pack PO 11/03/23 09:44 15 gm BID SEN Administration
[2023-10-04] MEDS: SIMETHICONE 80 MG CHEW PO PRN (14:51)
[2023-10-04] MEDS: ACETAMINOPHEN 325 MG TAB PO PRN ×2 (17:09→21:18)
[2023-10-04] MEDS: ALUMINUM/MAGNESIUM SUSP 30 ML UDC PO PRN (18:32)
[2023-10-04] MEDS ORDERED: LOPERAMIDE HCL 2 MG CAP PO STA (20:25)
[2023-10-04] MEDS: LANTUS PER UNIT CHARGE SQ SCH (21:19)
[2023-10-04] MEDS: SIMVASTATIN 40 MG TAB PO SCH (21:20)
[2023-10-05 07:07] LABS: Hematocrit (blood only) 31.4 % (42.0-52.0); Hemoglobin 10.7 g/dl (14.0-18.0); Mean Corpuscular Hemoglobin 32.9 pg (25.0-34.0); Mean Corpuscular Hgb Conc 34.1 g/dL (32.0-36.0); Mean Corpuscular Volume 96.6 fL (80.0-100.0); Mean Platelet Volume 9.8 fL (9.4-12.4); Platelet Count 185 K/uL (130-400); RDW Coefficient of Variation 12.7 % (11.5-14.5); RDW Standard Deviation 45.5 fL (36.4-46.3); Red Blood Count 3.25 M/uL (4.70-6.10); White Blood Count 3.63 K/ul (4.8-10.8)
[2023-10-05] MEDS: ACETAMINOPHEN 325 MG TAB PO PRN ×2 (07:32→20:24)
[2023-10-05] MEDS: clonazePAM 0.5 MG TAB PO SCH ×3 (07:34→20:24)
[2023-10-05 08:05] LABS: BUN Creatinine Ratio 47.8 (10-20); Creatinine Clr Calc Pharmacy 141.7 ml/min; Est GFR (African American) 132.6 ml/min; Est GFR (Non-African American) 114.4 ml/min; Magnesium 1.6 mg/dl (1.7-2.4); Phosphorus 3.8 mg/dl (2.5-4.9); Potassium 4.7 mmol/L (3.5-5.1)
[2023-10-05] MEDS: cefTRIAXone SODIUM 2,000 MG in DEXTROSE 5 % MINI-B 50 ML IV SCH (08:29)
[2023-10-05] MEDS: CARBOHYDRATES FOR HYPOGLYCEMIA PO PRN (09:05)
--- NOTE | 2023-10-05 09:13 | Pharmacy Report ---
Pharmacy Glycemic Short Note 2 - Date of Service October 05, 2023 - Glycemic Short BSG Results (Last 24 hours): 10/04/23 10/04/23 10/04/23 10:56 12:31 17:24 Glucose 213 H POC Glucose 166 H 81 10/04/23 10/05/23 10/05/23 20:47 06:19 08:19 Glucose 70 POC Glucose 127 H 62 L* 10/05/23 10/05/23 08:21 08:45 Glucose POC Glucose 56 L* 71 OUTPATIENT ANTIDIABETIC REGIMEN: * metformin 1000mg BID * glimeperide 1 mg PO daily * Trulicity 3mg SC Qwk * HbA1c 7.5% (10/02/23) ASSESSMENT: 10/05: * Patient received total 21 units of insulin yesterday; 12 units basal and 9 units bolus. * Blood sugars controlled, except hypoglycemic this morning, 62mg/dl - decrease basal. * Continue NovoLog parameters at this time. 10/03: * Patient received total 22 units of insulin yesterday; 12 units basal and 10 units bolus. * BSG at dinner time yesterday = 72 mg/dl- was better than the day before but still lower than expected. * Basal insulin moved to HS today to see if this might prevent low BSG at dinner. However, holding the AM basal did result in a higher pre-lunch BSG today (252 mg/dl). 10/02: * Patient received total 24 units of insulin yesterday; 12 units basal and 12 units bolus. * BSG at dinner was low at 64 mg/dl and patient did not require anymore bolus insulin at dinner or HS yesterday. * Novolog CR was loosened to 15 to prevent hypoglycemia. * Basal dose continued the same. 10/01/23: * Isai is a 68 YOM admitted with diarrhea and vomitting, presently resolved awaiting placement with a history of T2DM. Pharmacy has been consulted for glycemic management while inpatient. * Isai received 21 units of insulin yesterday (10 were basal) * Fasting BSG elevated this AM, basal insulin increased by 20% * Novolog parameters initiated at around a weight based stress of 2, seems to be covering and correcting adequately at this time, no change PLAN FOR INPATIENT GLYCEMIC CONTROL: * Hold outpatient diabetes medications * Basal insulin -decrease * Lantus 8 units SC HS * Bolus insulin * NovoLog per scale ACHS or Q6hrs while NPO * Goal Range: Low 110 mg/dL - High 140 mg/dL * Correction Factor: 30 mg/dL/unit * Nutritional / Prandial insulin per carb ratio of 1 unit per 15 grams CHO consumed
[2023-10-05] MEDS: ARTIFICIAL TEARS OP SCH ×2 (09:31→20:24)
[2023-10-05] MEDS: PANTOprazole 40 MG TAB PO SCH (09:31)
[2023-10-05] MEDS: OXcarbazepine 150 MG TABLET PO SCH ×2 (09:31→20:26)
[2023-10-05] MEDS: UMECLIDINIUM BROMIDE 62.5MCG/BLISTER 7 PUFFS/INHALER INH SCH (09:31)
[2023-10-05] MEDS: ALUMINUM/MAGNESIUM SUSP 30 ML UDC PO PRN (09:31)
[2023-10-05] MEDS: TAMSULOSIN HCL 0.4 MG CAP PO SCH (09:31)
[2023-10-05] MEDS: MAGNESIUM CHLORIDE W/CALCIUM 64MG DELAYED REL TAB PO SCH (09:31)
[2023-10-05] MEDS: GABAPENTIN 300 MG CAP PO SCH ×3 (09:31→20:25)
[2023-10-05] MEDS: CEROVITE ADV FORMULA TAB PO SCH (09:31)
[2023-10-05] MEDS: MULTIVITAMIN TAB PO SCH (09:31)
[2023-10-05] MEDS: UREA (UREA-NA) 15 GM PACK PO SCH ×2 (09:32→20:27)
[2023-10-05] MEDS: FINASTERIDE 5 MG TAB PO SCH (09:32)
[2023-10-05] MEDS: QUEtiapine FUMARATE 100 MG TABLET PO SCH ×2 (09:32→20:27)
[2023-10-05] MEDS: SERTRALINE HCL 50 MG TABLET PO SCH (09:32)
[2023-10-05] MEDS: INSULIN ASPART PER UNIT CHARGE SC SCH ×4 (09:34→20:25)
[2023-10-05] MEDS ORDERED: ALUMINUM/MAGNESIUM/SIMETH (MAALOX MAX) 30 ML UDC PO STA (09:40)
[2023-10-05] MEDS ORDERED: Nursing to Pharmacy Communication SCH (10:15)
--- NOTE | 2023-10-05 11:13 | Nephrology Progress Note ---
Date of Service October 05, 2023 Assessment & Plan (1) Hyponatremia: Plan: Patient with hyponatremia likely due to syndrome of inappropriate ADH. Urine osmolality was 281 and urine sodium of 30 which would both support SIADH. Sodium slightly up to 127 today. -Will continue urea 15 g twice daily. -Okay to monitor sodium daily -Encourage high-protein diet 3 meals. Patient should be allowed to salt his food. -Fluid limit 1.5 L daily. (2) Hypomagnesemia: Plan: Patient has had intermittent hypomagnesemia. Agree with the current rate of supplementation. Admission and Anticipated Discharge Date Admission Date: September 16, 2023 Subjective Seen for hyponatremia. Patient is eating and drinking well. Sodium slightly up trending Review of Systems 2 Review of Systems: Unable to obtain due to mental retardation Physical Exam 2 Physical Exam: General exam: Appears comfortable, no acute distress HEENT: Pupils are equal and reactive to light Neck: No JVD, neck is supple trachea is midline Respiratory system: Clear breath sounds bilaterally. Gastrointestinal: Abdomen is soft, non distended, non tender, bowel sounds are present CVS: Regular rate and rhythm. No murmurs, rubs or gallops Musculoskeletal: No joint or muscle tenderness Extremities: Non tender, no edema, peripheral pulses are present Neuro: Oriented, no tremors, no focal neurological deficits Skin: No rashes Results & Data Vital Signs (Past 12 Hours) Vital Signs Temp Pulse Pulse Resp BP BP Pulse Ox 10/05/23 08:10 36.6 C 56 L 16 101/52 L 96 10/05/23 04:13 36.5 C 50 L 18 116/67 98 10/04/23 23:49 52 L 10/04/23 23:33 36.5 C 60 18 127/70 95 O2 Del Method 10/05/23 08:10 Room Air 10/05/23 04:13 Room Air 10/04/23 23:49 10/04/23 23:33 Room Air Laboratory Results 10/05/23 06:19 10/05/23 06:19 WBC 3.63 L RBC 3.25 L MCV 96.6 MCH 32.9 MCHC 34.1 RDW Std Deviation 45.5 RDW Coeff of Drew 12.7 Plt Count 185 MPV 9.8 Phosphorus 3.8
[2023-10-05] MEDS: CLOTRIMAZOLE 1% CR 15 GM TUBE EXT SCH ×2 (11:16→20:25)
[2023-10-05] MEDS: BISMUTH SUBSALICYLATE 262 MG CHEW PO PRN (12:45)
--- NOTE | 2023-10-05 12:47 | Electrocardiogram Report ---
Test Reason : Blood Pressure : / mmHG Vent. Rate : 053 BPM Atrial Rate : 053 BPM P-R Int : 222 ms QRS Dur : 112 ms QT Int : 444 ms P-R-T Axes : 047 025 017 degrees QTc Int : 416 ms Sinus bradycardia with 1st degree A-V block Incomplete right bundle branch block Borderline ECG When compared with ECG of 03-OCT-2023 23:50, Criteria for Septal infarct are no longer Present Confirmed by Sreedhar Dowling ([id number]) on 10/05/2023 12:47:03 PM Referred By: REFERRED SELF Confirmed By:Evan Dowling
--- NOTE | 2023-10-05 13:15 | Hospitalist Progress Note ---
Date of Service October 05, 2023 Assessment & Plan (1) Ileus: Plan Mr. Kendall is a 68 year old gentleman with history of cognitive impairment/Klinefelter syndrome, cerebral palsy, DM2, COPD, PVD, TRINIDAD, GERD, chronic stasis dermatitis, hearing loss, osteoporosis, and valvular heart disease (mild MR/TR/Aortic Stenosis) who was admitted on 09/16 due to abdominal pain and diarrhea. Patient was found to have SBO v ileus and managed conservatively. No acute changes in management. Course prolonged due to placement issues and coordinating with [facility]. #Hypomagnesemia: Monitor and replete with current supplementation #Acute on Chronic hyponatremia*worsening initially, now improving -Thought to be SIADH picture per Nephrology -Trialed on lasix, no improvement, downtrended notably. discontinue diuertics -Nephrology consulted: continue Urea BID, encourage high protein diet, FR 1.5 L -Appreciate further recommendations -BMP in am, if stable tomorrow continue current course #Acute toxic metabolic encephalopathy, likely 2/2 UTI #Intellectual Disability, Klinefelters #Cerebral Palsy overnight 09/26-09/27; was bradycardic, low bp and SaO2 in 80s on 2L NC O2. UA s/o uti, atb started, UCx w/ GNB; treat as follows Psychiatry consulted: neuropsych meds tapering, recommendations placed 09/28, taper reportedly possibly too fast per 09/30 recs, continue to monitor -Continuing Quetipine 100mg BID in order to not reduce taper and to monitor for any break through behaviors -Continue Gabapentin Outside record review demonstrates multiple antipsychotic medication changes (Risperidone discontinued 08/2023, quetiapine started) #Viral Gastroenteritis *resolved #SBO versus ileus: Likely secondary to gastroenteritis Admitting CT abdomen/pelvis suggestive of ileus Repeat CT head scan of the abdomen pelvis did not show any intestinal obstruction. General surgery evaluated, managed conservatively C.Diff negative Continues to tolerate diet, denies pain this am Will continue miralax daily to ensure BM #Hypoglycemic episode followed by unresponsive episode 09/22/2023: Status post hypoglycemia protocol with improvement. Continue to monitor. #Complicated UTI 2/2 Klebsiella: see above, zosyn 09/27. f/u Cx. zosyn to rocephin 09/28. EOT 10/08, transition to po upon discharge Other chronic medical conditions: Continue with/resume home meds as and when able. #Chronic diastolic heart failure (EF 60-65%, TTE 2022), stable #Prior SVT/PAF not on anticoagulation due to fall risk, patient NSR, Continue Metoprolol #mild #PVD on Pentoxifylline #Diabetes mellitus type 2: Sliding scale insulin while in hospital. Resume home Trulicity, metformin and amaryl #COPD: Not in acute exacerbation. #Elevated TSH iso of infection: Repeat in 4-6 weeks DVT prophylaxis. SCDs DNR Awaiting placement. Admission and Anticipated Discharge Date Admission Date: September 16, 2023 Subjective Patient eating breakfast, endorses some GI discomfort, difficult to parse out Physical Exam Constitutional: WD/WN, vitals as above Respiratory: normal respiratory effort, lungs clear to auscultation Cardiovascular: RRR, no murmur, no edema Gastrointestinal (Abdomen): soft, NTND Results & Data Results & Data Vital Signs (Past 12 Hours) Vital Signs Temp Pulse Pulse Resp BP BP Pulse Ox 10/05/23 11:39 36.6 C 54 L 18 126/64 96 10/05/23 08:10 36.6 C 56 L 16 101/52 L 96 10/05/23 06:00 53 L 10/05/23 04:13 36.5 C 50 L 18 116/67 98 O2 Del Method 10/05/23 11:39 Room Air 10/05/23 08:10 Room Air 10/05/23 06:00 10/05/23 04:13 Room Air Laboratory Results Short CBC 10/05/23 Range/Units 06:19 WBC 3.63 L (4.8-10.8) K/ul Hgb 10.7 L (14.0-18.0) g/dl Hct 31.4 L (42.0-52.0) % Plt Count 185 (130-400) K/uL BMP 10/05/23 06:19 Sodium 127 L Potassium 4.7 Chloride 93 L Carbon Dioxide 32 BUN 22 Creatinine 0.46 L Glucose 70 Calcium 9.0 Medications Administered Home Medications Medication Instructions Recorded Confirmed Last Taken Lactobacillus rhamnosus GG 15 2 cap PO DAILY 09/16/23 09/16/23 Unknown billion cell sprinkle capsule (Culturelle) acetaminophen 325 mg tablet 650 mg PO Q4 PRN Fever 09/16/23 09/16/23 Unknown (Tylenol) acetaminophen 650 mg 1,300 mg PO AMHS 09/16/23 09/16/23 Unknown tablet,extended release albuterol sulfate 90 mcg/actuation 2 puff inhalation Q4 PRN Shortness 09/16/23 09/16/23 Unknown aerosol inhaler Of Breath Or Wheezing bismuth subsalicylate 262 mg 1 tab PO Q12 PRN .UPSET STOMACH 09/16/23 09/16/23 Unknown chewable tablet (Pepto-Bismol) carboxymethylcellulose sodium 0.5 1 drp OPB BID 09/16/23 09/16/23 Unknown % eye drops (Refresh Tears) cholecalciferol (vitamin D3) 25 25 mcg PO QAM 09/16/23 09/16/23 Unknown mcg (1,000 unit) capsule (Vitamin D3) clonazepam 0.5 mg tablet 0.5 mg PO TID 09/16/23 09/16/23 Unknown diphenhydramine HCl 12.5 mg 12.5 mg PO BID PRN Itching 09/16/23 09/16/23 Unknown chewable tablet dulaglutide 3 mg/0.5 mL 3 mg subcut .WEEKLY 09/16/23 09/16/23 Unknown subcutaneous pen injector (Trulicity) finasteride 5 mg tablet 5 mg PO QAM 09/16/23 09/16/23 Unknown food supplemt, lactose-reduced 1 ea PO BID 09/16/23 09/16/23 Unknown furosemide 20 mg tablet 20 mg PO DAILY 09/16/23 09/16/23 Unknown gabapentin 300 mg capsule 300 mg PO TID 09/16/23 09/16/23 Unknown glimepiride 1 mg tablet 1 mg PO DAILY 09/16/23 09/16/23 Unknown guaifenesin 100 mg/5 mL oral liquid 200 mg PO TID PRN Cough 09/16/23 09/16/23 Unknown guaifenesin 600 mg tablet, 600 mg PO Q12H 09/16/23 09/16/23 Unknown extended release 12 hr (Mucinex) loperamide 2 mg capsule (Imodium 2 mg PO TID PRN Diarrhea 09/16/23 09/16/23 Unknown A-D) loratadine 10 mg tablet 10 mg PO DAILY 09/16/23 09/16/23 Unknown magnesium oxide 400 mg PO BID 09/16/23 09/16/23 Unknown metformin 1,000 mg tablet 1,000 mg PO BID 09/16/23 09/16/23 Unknown metoprolol tartrate 25 mg tablet 12.5 mg PO BID 09/16/23 09/16/23 Unknown multivitamin 1 tab PO DAILY 09/16/23 09/16/23 Unknown neomycin-bacitracn Zn-polymyxn 3.5 1 applic topical DIRECTED WOUND 09/16/23 09/16/23 Unknown mg-400 unit-5,000 unit top oint CARE pkt (Neosporin(ryc-[id number])) oxcarbazepine 300 mg tablet 300 mg PO BID 09/16/23 09/16/23 Unknown pentoxifylline 400 mg 400 mg PO TID 09/16/23 09/16/23 Unknown tablet,extended release polyethylene glycol 3350 17 gram 17 g PO DIRECTED PRN 09/16/23 09/16/23 Unknown oral powder packet (Miralax) Constipation quetiapine 100 mg tablet 100 mg PO TID 09/16/23 09/16/23 Unknown sertraline 50 mg tablet 50 mg PO DAILY 09/16/23 09/16/23 Unknown simvastatin 40 mg tablet 40 mg PO QPM 09/16/23 09/16/23 Unknown tamsulosin 0.4 mg capsule 0.4 mg PO DAILY 09/16/23 09/16/23 Unknown trazodone 50 mg tablet 50 mg PO HS 09/16/23 09/16/23 Unknown umeclidinium 62.5 mcg/actuation 1 inh inhalation DAILY 09/16/23 09/16/23 Unknown blister powder for inhalation (Incruse Ellipta) Active Medications Generic Name Dose Route Start Last Admin Trade Name Freq PRN Reason Stop Dose Admin Acetaminophen 650 mg 09/16/23 04:12 10/05/23 07:32 Acetaminophen 325 Mg Tab PO 10/16/23 04:11 650 mg Q4H PRN Administration Pain or Fever Al Hydrox/Mg Hydrox/Simethicone 15 ml 09/20/23 15:43 10/05/23 09:31 Aluminum/Magnesium Susp 30 Ml Udc PO 10/20/23 15:42 15 ml Q6H PRN Administration Dyspepsia Artificial Tears 1 drops 09/16/23 09:00 10/05/23 09:31 Artificial Tears OP 10/16/23 08:59 1 drops BID SEN Administration Bismuth Subsalicylate 1 tab 09/16/23 03:27 10/05/23 12:45 Bismuth Subsalicylate 262 Mg Chew PO 10/16/23 03:26 1 tab Q12 PRN Administration .UPSET STOMACH Clonazepam 0.5 mg 09/16/23 08:00 10/05/23 07:34 Clonazepam 0.5 Mg Tab PO 10/16/23 07:59 0.5 mg TID@0800,1600,2000 SEN Administration Clotrimazole 1 appln 09/22/23 12:30 10/05/23 11:16 Clotrimazole 1% Cr 15 Gm Tube EXT 10/22/23 12:29 1 appln BID SEN Administration Dextrose 25 - 50 ml 09/16/23 02:57 09/22/23 17:19 Dextrose 50% 50 Ml Syringe IV 10/16/23 02:56 50 ml UD PRN Administration Hypoglycemia Protocol Protocol Finasteride 5 mg 09/16/23 09:00 10/05/23 09:32 Finasteride 5 Mg Tab PO 10/16/23 08:59 5 mg QAM SEN Administration Furosemide 10 mg 10/02/23 10:45 10/03/23 09:32 Furosemide 20 Mg Tab PO 11/01/23 10:44 10 mg QAM SEN Administration Gabapentin 300 mg 09/16/23 09:00 10/05/23 09:31 Gabapentin 300 Mg Cap PO 10/16/23 08:59 300 mg TID SEN Administration Ceftriaxone Sodium 2,000 mg/ 50 mls @ 100 mls/hr 09/28/23 09:00 10/05/23 10:35 Dextrose IV 10/08/23 08:59 Infused Q24H SEN Infusion Protocol Insulin Aspart 0 units 09/18/23 11:30 10/05/23 09:34 Insulin Aspart Per Unit Charge SC 10/18/23 11:29 Not Given ACHS SEN Magnesium Chloride 64 mg 09/26/23 09:00 10/05/23 09:31 Magnesium Chloride W/Calcium 64mg Delayed Rel Tab PO 10/26/23 08:59 64 mg QAM SEN Administration Metoprolol Tartrate 12.5 mg 09/16/23 09:00 10/03/23 20:47 Metoprolol Tartrate 25 Mg Tab PO 10/16/23 08:59 12.5 mg BID SEN Administration Miscellaneous 15 - 30 gm 09/16/23 02:57 10/05/23 09:05 Carbohydrates For Hypoglycemia PO 10/16/23 02:56 15 gm UD PRN Administration Hypoglycemia Protocol Multivitamins 1 tab 09/16/23 09:00 10/05/23 09:31 Multivitamin Tab PO 10/16/23 08:59 1 tab DAILY SEN Administration Multivitamins/Minerals 1 tab 09/30/23 19:00 10/05/23 09:31 Cerovite Adv Formula Tab PO 10/30/23 18:59 1 tab QAM SEN Administration Oxcarbazepine 300 mg 09/16/23 09:00 10/05/23 09:31 Oxcarbazepine 150 Mg Tablet PO 10/16/23 08:59 300 mg BID SEN Administration Pantoprazole Sodium 40 mg 09/19/23 12:45 10/05/23 09:31 Pantoprazole 40 Mg Tab PO 10/19/23 12:44 40 mg QAM SEN Administration Quetiapine Fumarate 100 mg 09/29/23 09:00 10/05/23 09:32 Quetiapine Fumarate 100 Mg Tablet PO 10/29/23 08:59 100 mg BID SEN Administration Sertraline HCl 50 mg 09/16/23 09:00 10/05/23 09:32 Sertraline Hcl 50 Mg Tablet PO 10/16/23 08:59 50 mg DAILY SEN Administration Simethicone 80 mg 09/26/23 13:16 10/04/23 14:51 Simethicone 80 Mg Chew PO 10/26/23 13:15 80 mg Q6H PRN Administration Flatulence Simvastatin 40 mg 09/16/23 21:00 10/04/23 21:20 Simvastatin 40 Mg Tab PO 10/16/23 20:59 40 mg QPM SEN Administration Tamsulosin HCl 0.4 mg 09/16/23 09:00 10/05/23 09:31 Tamsulosin Hcl 0.4 Mg Cap PO 10/16/23 08:59 0.4 mg DAILY SEN Administration Umeclidinium Mcpherson 1 puffs 09/16/23 09:00 10/05/23 09:31 Umeclidinium Mcpherson 62.5mcg/Blister 7 Puffs/Inhaler INH 10/16/23 08:59 1 puffs DAILY SEN Administration Urea 15 gm 10/04/23 09:45 10/05/23 09:32 Urea (Urea-Na) 15 Gm Pack PO 11/03/23 09:44 15 gm BID SEN Administration
[2023-10-05] MEDS: ALUMINUM/MAGNESIUM/SIMETH (MAALOX MAX) 30 ML UDC PO SCH ×2 (16:21→20:27)
[2023-10-05] MEDS: SIMVASTATIN 40 MG TAB PO SCH (20:27)
[2023-10-05] MEDS ORDERED: LANTUS PER UNIT CHARGE SQ SCH (21:00)
[2023-10-06] MEDS: ALUMINUM/MAGNESIUM/SIMETH (MAALOX MAX) 30 ML UDC PO SCH ×4 (04:08→21:54)
[2023-10-06 07:26] LABS: Calcium 9.3 mg/dl (8.6-10.3); Magnesium 1.6 mg/dl (1.7-2.4); Potassium 4.6 mmol/L (3.5-5.1)
[2023-10-06 07:32] LABS: BUN Creatinine Ratio 55.1 (10-20); Creatinine Clr Calc Pharmacy 126.2 ml/min; Est GFR (African American) 129.2 ml/min; Est GFR (Non-African American) 111.5 ml/min
[2023-10-06] MEDS: CLOTRIMAZOLE 1% CR 15 GM TUBE EXT SCH ×2 (08:00→21:57)
[2023-10-06] MEDS: GABAPENTIN 300 MG CAP PO SCH ×3 (08:00→21:56)
[2023-10-06] MEDS: cefTRIAXone SODIUM 2,000 MG in DEXTROSE 5 % MINI-B 50 ML IV SCH (08:01)
[2023-10-06] MEDS: QUEtiapine FUMARATE 100 MG TABLET PO SCH ×2 (08:01→21:55)
[2023-10-06] MEDS: OXcarbazepine 150 MG TABLET PO SCH ×2 (08:01→21:56)
[2023-10-06] MEDS: FINASTERIDE 5 MG TAB PO SCH (08:02)
[2023-10-06] MEDS: SERTRALINE HCL 50 MG TABLET PO SCH (08:02)
[2023-10-06] MEDS: TAMSULOSIN HCL 0.4 MG CAP PO SCH (08:02)
[2023-10-06] MEDS: MAGNESIUM CHLORIDE W/CALCIUM 64MG DELAYED REL TAB PO SCH (08:02)
[2023-10-06] MEDS: MULTIVITAMIN TAB PO SCH (08:03)
[2023-10-06] MEDS: PANTOprazole 40 MG TAB PO SCH (08:03)
[2023-10-06] MEDS: CEROVITE ADV FORMULA TAB PO SCH (08:03)
[2023-10-06] MEDS: UREA (UREA-NA) 15 GM PACK PO SCH ×2 (08:04→21:57)
[2023-10-06] MEDS: UMECLIDINIUM BROMIDE 62.5MCG/BLISTER 7 PUFFS/INHALER INH SCH (08:04)
[2023-10-06] MEDS: ARTIFICIAL TEARS OP SCH ×2 (08:04→21:57)
[2023-10-06] MEDS: POLYETHYLENE (MIRALAX) 17 GM PACK PO SCH (08:04)
[2023-10-06] MEDS: clonazePAM 0.5 MG TAB PO SCH ×3 (08:06→21:53)
[2023-10-06] MEDS: INSULIN ASPART PER UNIT CHARGE SC SCH ×4 (08:55→21:52)
--- NOTE | 2023-10-06 10:53 | Nephrology Progress Note ---
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 Urine osmolality was 281 and urine sodium of 30 which would both support SIADH. Sodium slightly up to 127 today. -Will continue urea 15 g twice daily. -Okay to monitor sodium daily -Encourage high-protein diet 3 meals. Patient should be allowed to salt his food. -Fluid limit 1.5 L daily. (2) Hypomagnesemia: Plan: Patient has had intermittent hypomagnesemia. Agree with the current rate of supplementation. mag 1.6 today Admission and Anticipated Discharge Date Admission Date: September 16, 2023 Subjective no interval events; pt unable to participate in ROS Review of Systems 2 Review of Systems: Unobtainable due to cognitive status Physical Exam 2 Constitutional: well developed, + acute distress, + cachectic, + behavioral limitations, + physical limitations and + frail appearing Eyes: EOM intact bilaterally (opens eyes, tracks) ENMT: Ears: no external ear abnormality Nose: no external nose abnormality Mouth: + dry oral mucous membranes vocalizes but does not make words Neck: no nuchal rigidity Respiratory: normal respiratory effort Auscultation: + diminished lung sounds Cardiovascular: RRR, no murmur, no edema Gastrointestinal (Abdomen): Inspection/Auscultation: normal bowel sounds and + scaphoid Percussion/Palpation: abdomen soft; abdomen nontender Musculoskeletal: Extremities: + abnormal strength and + muscle atrophy Skin: no rashes, warm and dry Neurologic: opens eyes, vocalizes, tracks; does not follow commands Results & Data Vital Signs (Past 12 Hours) Vital Signs Temp Pulse Pulse Pulse Resp BP BP 10/06/23 07:40 37.8 C H 54 L 18 112/60 10/06/23 07:30 51 L 10/06/23 03:07 36.3 C L 55 L 18 107/62 10/06/23 01:08 59 L 10/05/23 23:09 36.7 C 57 L 18 110/65 Pulse Ox O2 Del Method 10/06/23 07:40 97 Room Air 10/06/23 07:30 10/06/23 03:07 94 Room Air 10/06/23 01:08 10/05/23 23:09 94 Room Air Laboratory Results 10/05/23 06:19 10/06/23 06:06
--- NOTE | 2023-10-06 12:41 | Pharmacy Report ---
Pharmacy Glycemic Short Note 2 - Date of Service October 06, 2023 - Glycemic Short BSG Results (Last 24 hours): 10/05/23 10/05/23 10/06/23 17:09 20:09 06:06 Glucose 82 POC Glucose 88 145 H 10/06/23 10/06/23 10/06/23 08:14 08:54 12:06 Glucose POC Glucose 66 L* 115 H 173 H OUTPATIENT ANTIDIABETIC REGIMEN: * metformin 1000mg BID * glimeperide 1 mg PO daily * Trulicity 3mg SC Qwk * HbA1c 7.5% (10/02/23) ASSESSMENT: 10/06/23 * BSGs yesterday were 65/57-240-95-145 mg/dL. Patient received 15 units of insulin (8 units of basal and 7 units of bolus) * BSGs today are 66/115-173 * Will reduce Lantus slightly to 7 units today. PRP BSG was slightly higher at 82 today so suspect that patient's fasting will trend upwards today. Based upon previous days, Lantus 5 units is not sufficient. * Patient appears to overcorrect when BSG elevated. Loosen CF to 45 and up goal range. Tighten CR slightly. 10/05: * Patient received total 21 units of insulin yesterday; 12 units basal and 9 units bolus. * Blood sugars controlled, except hypoglycemic this morning, 62mg/dl - decrease basal. * Continue NovoLog parameters at this time. 10/03: * Patient received total 22 units of insulin yesterday; 12 units basal and 10 units bolus. * BSG at dinner time yesterday = 72 mg/dl- was better than the day before but still lower than expected. * Basal insulin moved to HS today to see if this might prevent low BSG at dinner. However, holding the AM basal did result in a higher pre-lunch BSG today (252 mg/dl). 10/02: * Patient received total 24 units of insulin yesterday; 12 units basal and 12 units bolus. * BSG at dinner was low at 64 mg/dl and patient did not require anymore bolus insulin at dinner or HS yesterday. * Novolog CR was loosened to 15 to prevent hypoglycemia. * Basal dose continued the same. 10/01/23: * Isai is a 68 YOM admitted with diarrhea and vomitting, presently resolved awaiting placement with a history of T2DM. Pharmacy has been consulted for glycemic management while inpatient. * Isai received 21 units of insulin yesterday (10 were basal) * Fasting BSG elevated this AM, basal insulin increased by 20% * Novolog parameters initiated at around a weight based stress of 2, seems to be covering and correcting adequately at this time, no change PLAN FOR INPATIENT GLYCEMIC CONTROL: * Hold outpatient diabetes medications * Basal insulin -decrease * Lantus 7 units SC HS * Bolus insulin * NovoLog per scale ACHS or Q6hrs while NPO * Goal Range: Low 120 mg/dL - High 160 mg/dL * Correction Factor: 45 mg/dL/unit * Nutritional / Prandial insulin per carb ratio of 1 unit per 10 grams CHO consumed
--- NOTE | 2023-10-06 13:49 | Hospitalist Progress Note ---
Date of Service October 06, 2023 Assessment & Plan (1) Ileus: Plan Mr. Kendall is a 68 year old gentleman with history of cognitive impairment/Klinefelter syndrome, cerebral palsy, DM2, COPD, PVD, TRINIDAD, GERD, chronic stasis dermatitis, hearing loss, osteoporosis, and valvular heart disease (mild MR/TR/Aortic Stenosis) who was admitted on 09/16 due to abdominal pain and diarrhea. Patient was found to have SBO v ileus and managed conservatively. No acute changes in management. Course prolonged due to placement issues and coordinating with [facility]. #Hypomagnesemia: Monitor and replete with current supplementation #Acute on Chronic hyponatremia*worsening initially, now improving -Thought to be SIADH picture per Nephrology -Trialed on lasix, no improvement, downtrended notably. discontinue diuertics -Nephrology consulted: continue Urea BID, encourage high protein diet, FR 1.5 L -Appreciate further recommendations--plan to hold above course with Urea BID #Acute toxic metabolic encephalopathy, likely 2/2 UTI *improved #Intellectual Disability, Klinefelters #Cerebral Palsy overnight 09/26-09/27; was bradycardic, low bp and SaO2 in 80s on 2L NC O2. UA s/o uti, atb started, UCx w/ GNB; treat as follows Psychiatry consulted: neuropsych meds tapering, recommendations placed 09/28, taper reportedly possibly too fast per 09/30 recs, continue to monitor -Continuing Quetipine 100mg BID in order to not reduce taper and to monitor for any break through behaviors -Continue Gabapentin Outside record review demonstrates multiple antipsychotic medication changes (Risperidone discontinued 08/2023, quetiapine started) #Viral Gastroenteritis *resolved #SBO versus ileus: Likely secondary to gastroenteritis Admitting CT abdomen/pelvis suggestive of ileus Repeat CT head scan of the abdomen pelvis did not show any intestinal obstruction. General surgery evaluated, managed conservatively C.Diff negative Continues to tolerate diet, denies pain this am Will continue miralax daily to ensure BM #Hypoglycemic episode followed by unresponsive episode 09/22/2023: Status post hypoglycemia protocol with improvement. Continue to monitor. #Diabetes mellitus type 2: Sliding scale insulin while in hospital. Resume home Trulicity, metformin and amaryl when discharged; glycemic consult following #Complicated UTI 2/2 Klebsiella: see above, zosyn 09/27. f/u Cx. zosyn to rocephin 09/28. EOT 10/08, transition to po upon discharge Other chronic medical conditions: Continue with/resume home meds as and when able. #Chronic diastolic heart failure (EF 60-65%, TTE 2022), stable #Prior SVT/PAF not on anticoagulation due to fall risk, patient NSR, Continue Metoprolol #mild #PVD on Pentoxifylline #COPD: Not in acute exacerbation. #Elevated TSH iso of infection: Repeat in 4-6 weeks DVT prophylaxis. SCDs DNR Awaiting placement. Admission and Anticipated Discharge Date Admission Date: September 16, 2023 Subjective NAEO Physical Exam Constitutional: WD/WN, vitals as above Respiratory: normal respiratory effort, lungs clear to auscultation Cardiovascular: RRR, no murmur, no edema Gastrointestinal (Abdomen): normal bowel sounds, soft, nontender, no hepatosplenomegaly Results & Data Results & Data Vital Signs (Past 12 Hours) Vital Signs Temp Pulse Pulse Pulse Resp BP BP 10/06/23 12:20 36.6 C 56 L 18 129/71 10/06/23 07:40 37.8 C H 54 L 18 112/60 10/06/23 07:30 51 L 10/06/23 03:07 36.3 C L 55 L 18 107/62 Pulse Ox O2 Del Method 10/06/23 12:20 95 Room Air 10/06/23 07:40 97 Room Air 10/06/23 07:30 10/06/23 03:07 94 Room Air Laboratory Results BMP 10/06/23 06:06 Sodium 129 L Potassium 4.6 Chloride 93 L Carbon Dioxide 32 BUN 27 H Creatinine 0.49 L Glucose 82 Calcium 9.3 Medications Administered Home Medications Medication Instructions Recorded Confirmed Last Taken Lactobacillus rhamnosus GG 15 2 cap PO DAILY 09/16/23 09/16/23 Unknown billion cell sprinkle capsule (Culturelle) acetaminophen 325 mg tablet 650 mg PO Q4 PRN Fever 09/16/23 09/16/23 Unknown (Tylenol) acetaminophen 650 mg 1,300 mg PO AMHS 09/16/23 09/16/23 Unknown tablet,extended release albuterol sulfate 90 mcg/actuation 2 puff inhalation Q4 PRN Shortness 09/16/23 09/16/23 Unknown aerosol inhaler Of Breath Or Wheezing bismuth subsalicylate 262 mg 1 tab PO Q12 PRN .UPSET STOMACH 09/16/23 09/16/23 Unknown chewable tablet (Pepto-Bismol) carboxymethylcellulose sodium 0.5 1 drp OPB BID 09/16/23 09/16/23 Unknown % eye drops (Refresh Tears) cholecalciferol (vitamin D3) 25 25 mcg PO QAM 09/16/23 09/16/23 Unknown mcg (1,000 unit) capsule (Vitamin D3) clonazepam 0.5 mg tablet 0.5 mg PO TID 09/16/23 09/16/23 Unknown diphenhydramine HCl 12.5 mg 12.5 mg PO BID PRN Itching 09/16/23 09/16/23 Unknown chewable tablet dulaglutide 3 mg/0.5 mL 3 mg subcut .WEEKLY 09/16/23 09/16/23 Unknown subcutaneous pen injector (Trulicity) finasteride 5 mg tablet 5 mg PO QAM 09/16/23 09/16/23 Unknown food supplemt, lactose-reduced 1 ea PO BID 09/16/23 09/16/23 Unknown furosemide 20 mg tablet 20 mg PO DAILY 09/16/23 09/16/23 Unknown gabapentin 300 mg capsule 300 mg PO TID 09/16/23 09/16/23 Unknown glimepiride 1 mg tablet 1 mg PO DAILY 09/16/23 09/16/23 Unknown guaifenesin 100 mg/5 mL oral liquid 200 mg PO TID PRN Cough 09/16/23 09/16/23 Unknown guaifenesin 600 mg tablet, 600 mg PO Q12H 09/16/23 09/16/23 Unknown extended release 12 hr (Mucinex) loperamide 2 mg capsule (Imodium 2 mg PO TID PRN Diarrhea 09/16/23 09/16/23 Unknown A-D) loratadine 10 mg tablet 10 mg PO DAILY 09/16/23 09/16/23 Unknown magnesium oxide 400 mg PO BID 09/16/23 09/16/23 Unknown metformin 1,000 mg tablet 1,000 mg PO BID 09/16/23 09/16/23 Unknown metoprolol tartrate 25 mg tablet 12.5 mg PO BID 09/16/23 09/16/23 Unknown multivitamin 1 tab PO DAILY 09/16/23 09/16/23 Unknown neomycin-bacitracn Zn-polymyxn 3.5 1 applic topical DIRECTED WOUND 09/16/23 09/16/23 Unknown mg-400 unit-5,000 unit top oint CARE pkt (Neosporin([id number])) oxcarbazepine 300 mg tablet 300 mg PO BID 09/16/23 09/16/23 Unknown pentoxifylline 400 mg 400 mg PO TID 09/16/23 09/16/23 Unknown tablet,extended release polyethylene glycol 3350 17 gram 17 g PO DIRECTED PRN 09/16/23 09/16/23 Unknown oral powder packet (Miralax) Constipation quetiapine 100 mg tablet 100 mg PO TID 09/16/23 09/16/23 Unknown sertraline 50 mg tablet 50 mg PO DAILY 09/16/23 09/16/23 Unknown simvastatin 40 mg tablet 40 mg PO QPM 09/16/23 09/16/23 Unknown tamsulosin 0.4 mg capsule 0.4 mg PO DAILY 09/16/23 09/16/23 Unknown trazodone 50 mg tablet 50 mg PO HS 09/16/23 09/16/23 Unknown umeclidinium 62.5 mcg/actuation 1 inh inhalation DAILY 09/16/23 09/16/23 Unknown blister powder for inhalation (Incruse Ellipta) Active Medications Generic Name Dose Route Start Last Admin Trade Name Freq PRN Reason Stop Dose Admin Acetaminophen 650 mg 09/16/23 04:12 10/05/23 20:24 Acetaminophen 325 Mg Tab PO 10/16/23 04:11 650 mg Q4H PRN Administration Pain or Fever Al Hydrox/Mg Hydrox/Simethicone 15 ml 09/20/23 15:43 10/05/23 09:31 Aluminum/Magnesium Susp 30 Ml Udc PO 10/20/23 15:42 15 ml Q6H PRN Administration Dyspepsia Al Hydrox/Mg Hydrox/Simethicone 15 ml 10/05/23 15:45 10/06/23 08:07 Aluminum/Magnesium/Simeth (Maalox Max) 30 Ml Udc PO 11/04/23 15:44 15 ml Q6H SEN Administration Artificial Tears 1 drops 09/16/23 09:00 10/06/23 08:04 Artificial Tears OP 10/16/23 08:59 1 drops BID SEN Administration Bismuth Subsalicylate 1 tab 09/16/23 03:27 10/05/23 12:45 Bismuth Subsalicylate 262 Mg Chew PO 10/16/23 03:26 1 tab Q12 PRN Administration .UPSET STOMACH Clonazepam 0.5 mg 09/16/23 08:00 10/06/23 08:06 Clonazepam 0.5 Mg Tab PO 10/16/23 07:59 0.5 mg TID@0800,1600,2000 SEN Administration Clotrimazole 1 appln 09/22/23 12:30 10/06/23 08:00 Clotrimazole 1% Cr 15 Gm Tube EXT 10/22/23 12:29 1 appln BID SEN Administration Dextrose 25 - 50 ml 09/16/23 02:57 09/22/23 17:19 Dextrose 50% 50 Ml Syringe IV 10/16/23 02:56 50 ml UD PRN Administration Hypoglycemia Protocol Protocol Finasteride 5 mg 09/16/23 09:00 10/06/23 08:02 Finasteride 5 Mg Tab PO 10/16/23 08:59 5 mg QAM SEN Administration Furosemide 10 mg 10/02/23 10:45 10/03/23 09:32 Furosemide 20 Mg Tab PO 11/01/23 10:44 10 mg QAM SEN Administration Gabapentin 300 mg 09/16/23 09:00 10/06/23 12:42 Gabapentin 300 Mg Cap PO 10/16/23 08:59 300 mg TID SEN Administration Ceftriaxone Sodium 2,000 mg/ 50 mls @ 100 mls/hr 09/28/23 09:00 10/06/23 08:56 Dextrose IV 10/08/23 08:59 Infused Q24H SEN Infusion Protocol Insulin Aspart 0 units 09/18/23 11:30 10/06/23 12:41 Insulin Aspart Per Unit Charge SC 10/18/23 11:29 6 units ACHS SEN Administration Magnesium Chloride 64 mg 09/26/23 09:00 10/06/23 08:02 Magnesium Chloride W/Calcium 64mg Delayed Rel Tab PO 10/26/23 08:59 64 mg QAM SEN Administration Metoprolol Tartrate 12.5 mg 09/16/23 09:00 10/03/23 20:47 Metoprolol Tartrate 25 Mg Tab PO 10/16/23 08:59 12.5 mg BID SEN Administration Miscellaneous 15 - 30 gm 09/16/23 02:57 10/05/23 09:05 Carbohydrates For Hypoglycemia PO 10/16/23 02:56 15 gm UD PRN Administration Hypoglycemia Protocol Multivitamins 1 tab 09/16/23 09:00 10/06/23 08:03 Multivitamin Tab PO 10/16/23 08:59 1 tab DAILY SEN Administration Multivitamins/Minerals 1 tab 09/30/23 19:00 10/06/23 08:03 Cerovite Adv Formula Tab PO 10/30/23 18:59 1 tab QAM SEN Administration Oxcarbazepine 300 mg 09/16/23 09:00 10/06/23 08:01 Oxcarbazepine 150 Mg Tablet PO 10/16/23 08:59 300 mg BID SEN Administration Pantoprazole Sodium 40 mg 09/19/23 12:45 10/06/23 08:03 Pantoprazole 40 Mg Tab PO 10/19/23 12:44 40 mg QAM SEN Administration Polyethylene Glycol 17 gm 10/06/23 09:00 10/06/23 08:04 Polyethylene (Miralax) 17 Gm Pack PO 11/05/23 08:59 17 gm DAILY SEN Administration Quetiapine Fumarate 100 mg 09/29/23 09:00 10/06/23 08:01 Quetiapine Fumarate 100 Mg Tablet PO 10/29/23 08:59 100 mg BID SEN Administration Sertraline HCl 50 mg 09/16/23 09:00 10/06/23 08:02 Sertraline Hcl 50 Mg Tablet PO 10/16/23 08:59 50 mg DAILY SEN Administration Simethicone 80 mg 09/26/23 13:16 10/04/23 14:51 Simethicone 80 Mg Chew PO 10/26/23 13:15 80 mg Q6H PRN Administration Flatulence Simvastatin 40 mg 09/16/23 21:00 10/05/23 20:27 Simvastatin 40 Mg Tab PO 10/16/23 20:59 40 mg QPM SEN Administration Tamsulosin HCl 0.4 mg 09/16/23 09:00 10/06/23 08:02 Tamsulosin Hcl 0.4 Mg Cap PO 10/16/23 08:59 0.4 mg DAILY SEN Administration Umeclidinium [employer] 1 puffs 09/16/23 09:00 10/06/23 08:04 [address]meclidinium [employer] 62.5mcg/Blister 7 Puffs/Inhaler INH 10/16/23 08:59 1 puffs DAILY SEN Administration Urea 15 gm 10/04/23 09:45 10/06/23 08:04 Urea (Urea-Na) 15 Gm Pack PO 11/03/23 09:44 15 gm BID SEN Administration
[2023-10-06] MEDS: ACETAMINOPHEN 325 MG TAB PO PRN (21:53)
[2023-10-06] MEDS: LANTUS PER UNIT CHARGE SQ SCH (21:54)
[2023-10-06] MEDS: SIMVASTATIN 40 MG TAB PO SCH (21:56)
[2023-10-07] MEDS: ALUMINUM/MAGNESIUM/SIMETH (MAALOX MAX) 30 ML UDC PO SCH ×4 (04:10→20:25)
[2023-10-07 06:33] LABS: BUN Creatinine Ratio 67.3 (10-20); Calcium 9.8 mg/dl (8.6-10.3); Creatinine Clr Calc Pharmacy 103.5 ml/min; Est GFR (African American) 123.2 ml/min; Est GFR (Non-African American) 106.3 ml/min; Potassium 4.7 mmol/L (3.5-5.1)
[2023-10-07] MEDS: OXcarbazepine 150 MG TABLET PO SCH ×2 (08:24→20:24)
[2023-10-07] MEDS: GABAPENTIN 300 MG CAP PO SCH ×3 (08:24→20:23)
[2023-10-07] MEDS: CLOTRIMAZOLE 1% CR 15 GM TUBE EXT SCH ×2 (08:24→20:25)
[2023-10-07] MEDS: QUEtiapine FUMARATE 100 MG TABLET PO SCH ×2 (08:25→20:24)
[2023-10-07] MEDS: MULTIVITAMIN TAB PO SCH (08:25)
[2023-10-07] MEDS: MAGNESIUM CHLORIDE W/CALCIUM 64MG DELAYED REL TAB PO SCH (08:26)
[2023-10-07] MEDS: PANTOprazole 40 MG TAB PO SCH (08:26)
[2023-10-07] MEDS: FINASTERIDE 5 MG TAB PO SCH (08:26)
[2023-10-07] MEDS: SERTRALINE HCL 50 MG TABLET PO SCH (08:26)
[2023-10-07] MEDS: CEROVITE ADV FORMULA TAB PO SCH (08:27)
[2023-10-07] MEDS: TAMSULOSIN HCL 0.4 MG CAP PO SCH (08:27)
[2023-10-07] MEDS: ARTIFICIAL TEARS OP SCH ×2 (08:27→20:25)
[2023-10-07] MEDS: POLYETHYLENE (MIRALAX) 17 GM PACK PO SCH (08:27)
[2023-10-07] MEDS: clonazePAM 0.5 MG TAB PO SCH ×3 (08:30→20:23)
[2023-10-07] MEDS: cefTRIAXone SODIUM 2,000 MG in DEXTROSE 5 % MINI-B 50 ML IV SCH (08:30)
[2023-10-07] MEDS: UMECLIDINIUM BROMIDE 62.5MCG/BLISTER 7 PUFFS/INHALER INH SCH (09:32)
[2023-10-07] MEDS: INSULIN ASPART PER UNIT CHARGE SC SCH ×4 (09:34→20:23)
[2023-10-07] MEDS: UREA (UREA-NA) 15 GM PACK PO SCH ×2 (09:35→20:25)
--- NOTE | 2023-10-07 11:31 | Nephrology Progress Note ---
Date of Service October 07, 2023 Assessment & Plan (1) Hyponatremia: Plan: presume due to syndrome of inappropriate ADH/low solute diet. Urine osmolality was 281 and urine sodium of 30 which would both support SIADH. chronic hyponatremia usually low 130s. yaneli value 119 on 10/04, several days after admission and improving at appropriate rate. Sodium up to 131 today. -continue urea 15 g twice daily. -daily bmp while in house -Encourage high-protein diet 3 meals. Patient should be allowed to salt his food. -Fluid limit 1.5 L daily. will sign off NEPH D/C RECS -will need urea at d/c 15 gm bid > may be challenging to obtain this med d/t cost/availability; recommend d/w d/c tool planner -hold lasix at d/c given relative hypotension -fluid limit 1.5 L daily -Encourage high-protein diet 3 meals. Patient should be allowed to salt his food. -d/c on mag supplements -bmp and mag w/in week of hospital d/c at PCP f/u -hospital d/c appt any physician [place] 2-4 wks after d/c with bmp, magnesium, urine osms, serum osms, rd urine sodium 3-5 days before appt to be ordered by [facility] nurse (2) Hypomagnesemia: Plan: Patient has had intermittent hypomagnesemia. Agree with the current rate of supplementation. mag 1.6 yesterday (3) Bradycardia: Plan: noted despite holding beta justine since 12/8 HR about 50 > defer to primary service but low threshold for further eval Admission and Anticipated Discharge Date Admission Date: September 16, 2023 Subjective c/o being cold and that his feet swell. no other c/o. alert and interactive today Review of Systems 2 Review of Systems: All systems reviewed & are unremarkable except as noted in Subjective (limited by cognitive status) Physical Exam 2 Constitutional: well developed, + acute distress, + cachectic, + behavioral limitations, + physical limitations and + frail appearing Eyes: EOM intact bilaterally (opens eyes, tracks) ENMT: Ears: no external ear abnormality Nose: no external nose abnormality Mouth: + dry oral mucous membranes Neck: no nuchal rigidity Respiratory: normal respiratory effort Auscultation: + diminished lung sounds Cardiovascular: RRR, no murmur, no edema Gastrointestinal (Abdomen): Inspection/Auscultation: normal bowel sounds and + scaphoid Percussion/Palpation: abdomen soft; abdomen nontender Musculoskeletal: Extremities: + abnormal strength and + muscle atrophy Skin: no rashes, warm and dry Results & Data Vital Signs (Past 12 Hours) Vital Signs Temp Pulse Pulse Resp BP Pulse Ox O2 Del Method 10/07/23 07:41 36.4 C L 53 L 18 90/52 L 97 Room Air 10/07/23 06:14 49 L 10/07/23 04:20 53 L 18 100/61 93 Room Air 10/07/23 03:54 36.3 C L 55 L 18 94/57 L 95 Room Air 10/06/23 23:30 36.8 C 63 18 108/68 93 Room Air Laboratory Results 10/05/23 06:19 10/07/23 05:51
--- NOTE | 2023-10-07 12:08 | Hospitalist Progress Note ---
Date of Service October 07, 2023 Assessment & Plan (1) Ileus: Plan Mr. Kendall is a 68 year old gentleman with history of cognitive impairment/Klinefelter syndrome, cerebral palsy, DM2, COPD, PVD, TRINIDAD, GERD, chronic stasis dermatitis, hearing loss, osteoporosis, and valvular heart disease (mild MR/TR/Aortic Stenosis) who was admitted on 09/16 due to abdominal pain and diarrhea. Patient was found to have SBO v ileus and managed conservatively. No acute changes in management. Course prolonged due to placement issues and coordinating with [facility]. Patients course was complicated by episode of AMS after large BM and found to have a drop in sodium to 119. Nephrology consulted and felt at this time likely SIADH and urea initiated, with a notable improvement in hyponatremia. Patient to complete course of antibiotics 10/08. #Hypomagnesemia: Monitor and replete with current supplementation #Acute on Chronic hyponatremia*worsening initially, now improving -Thought to be SIADH picture per Nephrology -Trialed on lasix, no improvement, downtrended notably. discontinue diuretics -Nephrology consulted: continue Urea BID, encourage high protein diet, FR 1.5 L -Appreciate further recommendations--plan to hold above course with Urea BID -The following are the discharge recommendations from nephrology: -will need urea at d/c 15 gm bid, ensure this is continued and discussed with placement agency to ensure it is obtained -hold further lasix at d/c given relative hypotension -fluid limit 1.5 L daily -Encourage high-protein diet 3 meals. Patient should be allowed to salt his food. -d/c with current mag supplements -Plan for bmp and mag w/in week of hospital d/c at PCP f/u -hospital d/c appt any physician [facility] 2-4 wks after d/c with bmp, magnesium, urine osms, serum osms, rd urine sodium 3-5 days before appt to be ordered by RENAL nurse #Acute toxic metabolic encephalopathy, likely 2/2 UTI *improved #Intellectual Disability, Klinefelters #Cerebral Palsy overnight 09/26-09/27; was bradycardic, low bp and SaO2 in 80s on 2L NC O2. UA s/o uti, atb started, UCx w/ GNB; treat as follows Psychiatry consulted: neuropsych meds tapering, recommendations placed 09/28, taper reportedly possibly too fast per 09/30 recs, continue to monitor -Continuing Quetipine 100mg BID in order to not reduce taper and to monitor for any break through behaviors -Continue Gabapentin as ordered' -Continue Trileptal 300mg BID -Continue klonipin 0.5mg TID #Viral Gastroenteritis *resolved #SBO versus ileus: Likely secondary to gastroenteritis Admitting CT abdomen/pelvis suggestive of ileus Repeat CT head scan of the abdomen pelvis did not show any intestinal obstruction. General surgery evaluated, managed conservatively C.Diff negative Continues to tolerate diet Will continue miralax daily to ensure BM #Hypoglycemic episode followed by unresponsive episode 09/22/2023: Status post hypoglycemia protocol with improvement. Continue to monitor. #Diabetes mellitus type 2: Sliding scale insulin while in hospital. Resume home Trulicity, metformin and amaryl when discharged; glycemic consult following #Complicated UTI 2/2 Klebsiella: see above, zosyn 09/27. f/u Cx. zosyn to rocephin 09/28. EOT 10/08, transition to po upon discharge Other chronic medical conditions: Continue with/resume home meds as and when able. #Chronic diastolic heart failure (EF 60-65%, TTE 2022), stable #Prior SVT/PAF not on anticoagulation due to fall risk, patient NSR, Continue Metoprolol #mild #PVD on Pentoxifylline #COPD: Not in acute exacerbation. #Elevated TSH iso of infection: Repeat in 4-6 weeks DVT prophylaxis. SCDs DNR Awaiting placement. Admission and Anticipated Discharge Date Admission Date: September 16, 2023 Subjective NAEO Physical Exam Constitutional: WD/WN, vitals as above Respiratory: normal respiratory effort, lungs clear to auscultation Cardiovascular: RRR, no murmur, no edema Gastrointestinal (Abdomen): normal bowel sounds, soft, nontender, no hepatosplenomegaly Results & Data Results & Data Vital Signs (Past 12 Hours) Vital Signs Temp Pulse Pulse Resp BP Pulse Ox O2 Del Method 10/07/23 11:34 36.3 C L 58 L 16 106/67 95 Room Air 10/07/23 07:41 36.4 C L 53 L 18 90/52 L 97 Room Air 10/07/23 06:14 49 L 10/07/23 04:20 53 L 18 100/61 93 Room Air 10/07/23 03:54 36.3 C L 55 L 18 94/57 L 95 Room Air Laboratory Results [facility] 10/07/23 05:51 Sodium 131 L Potassium 4.7 Chloride 93 L Carbon Dioxide 35 H BUN 37 H Creatinine 0.55 L Glucose 157 H Calcium 9.8 Medications Administered Home Medications Medication Instructions Recorded Confirmed Last Taken Lactobacillus rhamnosus GG 15 2 cap PO DAILY 09/16/23 09/16/23 Unknown billion cell sprinkle capsule (Culturelle) acetaminophen 325 mg tablet 650 mg PO Q4 PRN Fever 09/16/23 09/16/23 Unknown (Tylenol) acetaminophen 650 mg 1,300 mg PO AMHS 09/16/23 09/16/23 Unknown tablet,extended release albuterol sulfate 90 mcg/actuation 2 puff inhalation Q4 PRN Shortness 09/16/23 09/16/23 Unknown aerosol inhaler Of Breath Or Wheezing bismuth subsalicylate 262 mg 1 tab PO Q12 PRN .UPSET STOMACH 09/16/23 09/16/23 Unknown chewable tablet (Pepto-Bismol) carboxymethylcellulose sodium 0.5 1 drp OPB BID 09/16/23 09/16/23 Unknown % eye drops (Refresh Tears) cholecalciferol (vitamin D3) 25 25 mcg PO QAM 09/16/23 09/16/23 Unknown mcg (1,000 unit) capsule (Vitamin D3) clonazepam 0.5 mg tablet 0.5 mg PO TID 09/16/23 09/16/23 Unknown diphenhydramine HCl 12.5 mg 12.5 mg PO BID PRN Itching 09/16/23 09/16/23 Unknown chewable tablet dulaglutide 3 mg/0.5 mL 3 mg subcut .WEEKLY 09/16/23 09/16/23 Unknown subcutaneous pen injector (Trulicity) finasteride 5 mg tablet 5 mg PO QAM 09/16/23 09/16/23 Unknown food supplemt, lactose-reduced 1 ea PO BID 09/16/23 09/16/23 Unknown furosemide 20 mg tablet 20 mg PO DAILY 09/16/23 09/16/23 Unknown gabapentin 300 mg capsule 300 mg PO TID 09/16/23 09/16/23 Unknown glimepiride 1 mg tablet 1 mg PO DAILY 09/16/23 09/16/23 Unknown guaifenesin 100 mg/5 mL oral liquid 200 mg PO TID PRN Cough 09/16/23 09/16/23 Unknown guaifenesin 600 mg tablet, 600 mg PO Q12H 09/16/23 09/16/23 Unknown extended release 12 hr (Mucinex) loperamide 2 mg capsule (Imodium 2 mg PO TID PRN Diarrhea 09/16/23 09/16/23 Unknown A-D) loratadine 10 mg tablet 10 mg PO DAILY 09/16/23 09/16/23 Unknown magnesium oxide 400 mg PO BID 09/16/23 09/16/23 Unknown metformin 1,000 mg tablet 1,000 mg PO BID 09/16/23 09/16/23 Unknown metoprolol tartrate 25 mg tablet 12.5 mg PO BID 09/16/23 09/16/23 Unknown multivitamin 1 tab PO DAILY 09/16/23 09/16/23 Unknown neomycin-bacitracn Zn-polymyxn 3.5 1 applic topical DIRECTED WOUND 09/16/23 09/16/23 Unknown mg-400 unit-5,000 unit top oint CARE pkt (Neosporin([id number])) oxcarbazepine 300 mg tablet 300 mg PO BID 09/16/23 09/16/23 Unknown pentoxifylline 400 mg 400 mg PO TID 09/16/23 09/16/23 Unknown tablet,extended release polyethylene glycol 3350 17 gram 17 g PO DIRECTED PRN 09/16/23 09/16/23 Unknown oral powder packet (Miralax) Constipation quetiapine 100 mg tablet 100 mg PO TID 09/16/23 09/16/23 Unknown sertraline 50 mg tablet 50 mg PO DAILY 09/16/23 09/16/23 Unknown simvastatin 40 mg tablet 40 mg PO QPM 09/16/23 09/16/23 Unknown tamsulosin 0.4 mg capsule 0.4 mg PO DAILY 09/16/23 09/16/23 Unknown trazodone 50 mg tablet 50 mg PO HS 09/16/23 09/16/23 Unknown umeclidinium 62.5 mcg/actuation 1 inh inhalation DAILY 09/16/23 09/16/23 Unknown blister powder for inhalation (Incruse Ellipta) Active Medications Generic Name Dose Route Start Last Admin Trade Name Freq PRN Reason Stop Dose Admin Acetaminophen 650 mg 09/16/23 04:12 10/06/23 21:53 Acetaminophen 325 Mg Tab PO 10/16/23 04:11 650 mg Q4H PRN Administration Pain or Fever Al Hydrox/Mg Hydrox/Simethicone 15 ml 09/20/23 15:43 10/05/23 09:31 Aluminum/Magnesium Susp 30 Ml Udc PO 10/20/23 15:42 15 ml Q6H PRN Administration Dyspepsia Al Hydrox/Mg Hydrox/Simethicone 15 ml 10/05/23 15:45 10/07/23 09:35 Aluminum/Magnesium/Simeth (Maalox Max) 30 Ml Udc PO 11/04/23 15:44 15 ml Q6H SEN Administration Artificial Tears 1 drops 09/16/23 09:00 10/07/23 08:27 Artificial Tears OP 10/16/23 08:59 1 drops BID SEN Administration Bismuth Subsalicylate 1 tab 09/16/23 03:27 10/05/23 12:45 Bismuth Subsalicylate 262 Mg Chew PO 10/16/23 03:26 1 tab Q12 PRN Administration .UPSET STOMACH Clonazepam 0.5 mg 09/16/23 08:00 10/07/23 08:30 Clonazepam 0.5 Mg Tab PO 10/16/23 07:59 0.5 mg TID@0800,1600,2000 SEN Administration Clotrimazole 1 appln 09/22/23 12:30 10/07/23 08:24 Clotrimazole 1% Cr 15 Gm Tube EXT 10/22/23 12:29 1 appln BID SEN Administration Dextrose 25 - 50 ml 09/16/23 02:57 09/22/23 17:19 Dextrose 50% 50 Ml Syringe IV 10/16/23 02:56 50 ml UD PRN Administration Hypoglycemia Protocol Protocol Finasteride 5 mg 09/16/23 09:00 10/07/23 08:26 Finasteride 5 Mg Tab PO 10/16/23 08:59 5 mg QAM SEN Administration Furosemide 10 mg 10/02/23 10:45 10/03/23 09:32 Furosemide 20 Mg Tab PO 11/01/23 10:44 10 mg QAM SEN Administration Gabapentin 300 mg 09/16/23 09:00 10/07/23 08:24 Gabapentin 300 Mg Cap PO 10/16/23 08:59 300 mg TID SEN Administration Ceftriaxone Sodium 2,000 mg/ 50 mls @ 100 mls/hr 09/28/23 09:00 10/07/23 08:30 Dextrose IV 10/08/23 08:59 100 mls/hr Q24H SEN Administration Protocol Insulin Aspart 0 units 09/18/23 11:30 10/07/23 09:34 Insulin Aspart Per Unit Charge SC 10/18/23 11:29 4 units ACHS SEN Administration Insulin Glargine 7 units 10/06/23 21:00 10/06/23 21:54 Lantus Per Unit Charge SQ 11/05/23 20:59 7 units HS SEN Administration Magnesium Chloride 64 mg 09/26/23 09:00 10/07/23 08:26 Magnesium Chloride W/Calcium 64mg Delayed Rel Tab PO 10/26/23 08:59 64 mg QAM SEN Administration Metoprolol Tartrate 12.5 mg 09/16/23 09:00 10/03/23 20:47 Metoprolol Tartrate 25 Mg Tab PO 10/16/23 08:59 12.5 mg BID SEN Administration Miscellaneous 15 - 30 gm 09/16/23 02:57 10/05/23 09:05 Carbohydrates For Hypoglycemia PO 10/16/23 02:56 15 gm UD PRN Administration Hypoglycemia Protocol Multivitamins 1 tab 09/16/23 09:00 10/07/23 08:25 Multivitamin Tab PO 10/16/23 08:59 1 tab DAILY SEN Administration Multivitamins/Minerals 1 tab 09/30/23 19:00 10/07/23 08:27 Cerovite Adv Formula Tab PO 10/30/23 18:59 1 tab QAM SEN Administration Oxcarbazepine 300 mg 09/16/23 09:00 10/07/23 08:24 Oxcarbazepine 150 Mg Tablet PO 10/16/23 08:59 300 mg BID SEN Administration Pantoprazole Sodium 40 mg 09/19/23 12:45 10/07/23 08:26 Pantoprazole 40 Mg Tab PO 10/19/23 12:44 40 mg QAM SEN Administration Polyethylene Glycol 17 gm 10/06/23 09:00 10/07/23 08:27 Polyethylene (Miralax) 17 Gm Pack PO 11/05/23 08:59 Not Given DAILY SEN Quetiapine Fumarate 100 mg 09/29/23 09:00 10/07/23 08:25 Quetiapine Fumarate 100 Mg Tablet PO 10/29/23 08:59 100 mg BID SEN Administration Sertraline HCl 50 mg 09/16/23 09:00 10/07/23 08:26 Sertraline Hcl 50 Mg Tablet PO 10/16/23 08:59 50 mg DAILY SEN Administration Simethicone 80 mg 09/26/23 13:16 10/04/23 14:51 Simethicone 80 Mg Chew PO 10/26/23 13:15 80 mg Q6H PRN Administration Flatulence Simvastatin 40 mg 09/16/23 21:00 10/06/23 21:56 Simvastatin 40 Mg Tab PO 10/16/23 20:59 40 mg QPM SEN Administration Tamsulosin HCl 0.4 mg 09/16/23 09:00 10/07/23 08:27 Tamsulosin Hcl 0.4 Mg Cap PO 10/16/23 08:59 0.4 mg DAILY SEN Administration Umeclidinium [place] 1 puffs 09/16/23 09:00 10/07/23 09:32 Umeclidinium [place] 62.5mcg/Blister 7 Puffs/Inhaler INH 10/16/23 08:59 1 puffs DAILY SEN Administration Urea 15 gm 10/04/23 09:45 10/07/23 09:35 Urea (Urea-Na) 15 Gm Pack PO 11/03/23 09:44 15 gm BID SEN Administration
[2023-10-07] MEDS: ACETAMINOPHEN 325 MG TAB PO PRN (20:22)
[2023-10-07] MEDS: LANTUS PER UNIT CHARGE SQ SCH (20:23)
[2023-10-07] MEDS: SIMVASTATIN 40 MG TAB PO SCH (20:24)
[2023-10-08] MEDS: ALUMINUM/MAGNESIUM/SIMETH (MAALOX MAX) 30 ML UDC PO SCH ×4 (03:25→21:41)
[2023-10-08 06:42] LABS: Calcium 9.2 mg/dl (8.6-10.3); Magnesium 1.6 mg/dl (1.7-2.4); Potassium 4.5 mmol/L (3.5-5.1)
[2023-10-08 06:47] LABS: BUN Creatinine Ratio 63.8 (10-20); Creatinine Clr Calc Pharmacy 103.5 ml/min; Est GFR (African American) 120.6 ml/min; Phosphorus 3.7 mg/dl (2.5-4.9)
[2023-10-08 08:55] LABS: Hematocrit (blood only) 35.7 % (42.0-52.0); Hemoglobin 11.3 g/dl (14.0-18.0); Mean Corpuscular Hemoglobin 32.2 pg (25.0-34.0); Mean Corpuscular Hgb Conc 31.7 g/dL (32.0-36.0); Mean Corpuscular Volume 101.7 fL (80.0-100.0); Mean Platelet Volume 10.2 fL (9.4-12.4); Platelet Count 166 K/uL (130-400); RDW Coefficient of Variation 13.2 % (11.5-14.5); RDW Standard Deviation 49.6 fL (36.4-46.3); Red Blood Count 3.51 M/uL (4.70-6.10); White Blood Count 3.48 K/ul (4.8-10.8)
[2023-10-08] MEDS: MAGNESIUM CHLORIDE W/CALCIUM 64MG DELAYED REL TAB PO SCH (09:08)
[2023-10-08] MEDS: FINASTERIDE 5 MG TAB PO SCH (09:08)
[2023-10-08] MEDS: CLOTRIMAZOLE 1% CR 15 GM TUBE EXT SCH ×2 (09:08→21:35)
[2023-10-08] MEDS: GABAPENTIN 300 MG CAP PO SCH ×3 (09:08→21:35)
[2023-10-08] MEDS: PANTOprazole 40 MG TAB PO SCH (09:08)
[2023-10-08] MEDS: OXcarbazepine 150 MG TABLET PO SCH ×2 (09:08→21:37)
[2023-10-08] MEDS: CEROVITE ADV FORMULA TAB PO SCH (09:08)
[2023-10-08] MEDS: UREA (UREA-NA) 15 GM PACK PO SCH ×2 (09:08→21:41)
[2023-10-08] MEDS: SIMETHICONE 80 MG CHEW PO PRN (09:08)
[2023-10-08] MEDS: QUEtiapine FUMARATE 100 MG TABLET PO SCH ×2 (09:08→21:37)
[2023-10-08] MEDS: MULTIVITAMIN TAB PO SCH (09:09)
[2023-10-08] MEDS: SERTRALINE HCL 50 MG TABLET PO SCH (09:09)
[2023-10-08] MEDS: UMECLIDINIUM BROMIDE 62.5MCG/BLISTER 7 PUFFS/INHALER INH SCH (09:09)
[2023-10-08] MEDS: TAMSULOSIN HCL 0.4 MG CAP PO SCH (09:09)
[2023-10-08] MEDS: ARTIFICIAL TEARS OP SCH ×2 (09:10→21:34)
[2023-10-08] MEDS: POLYETHYLENE (MIRALAX) 17 GM PACK PO SCH (09:10)
--- NOTE | 2023-10-08 09:12 | Pharmacy Report ---
Pharmacy Glycemic Short Note 2 - Date of Service October 08, 2023 - Glycemic Short BSG Results (Last 24 hours): 10/07/23 10/07/23 10/07/23 12:02 17:14 20:08 Glucose POC Glucose 109 H 103 H 89 10/08/23 10/08/23 06:04 08:26 Glucose 147 H POC Glucose 139 H OUTPATIENT ANTIDIABETIC REGIMEN: * metformin 1000mg BID * glimeperide 1 mg PO daily * Trulicity 3mg SC Qwk * HbA1c 7.5% (10/02/23) ASSESSMENT: 10/08: * Isai received 19 units of insulin yesterday, 7 basal + 12 bolus. BSGs were: 799-774-798-89 mg/dL. * Fasting BSG was 139 mg/dL this AM. Will continue with current basal dose which was reduced on 10/06/23. * CF loosened yesterday but postprandials still trended down to below goal range throughout the day. Will loosen carb ratio this morning. 10/06: * BSGs yesterday were 65/10-790-65-145 mg/dL. Patient received 15 units of insulin (8 units of basal and 7 units of bolus) * BSGs today are 66/115-173 * Will reduce Lantus slightly to 7 units today. PRP BSG was slightly higher at 82 today so suspect that patient's fasting will trend upwards today. Based upon previous days, Lantus 5 units is not sufficient. * Patient appears to overcorrect when BSG elevated. Loosen CF to 45 and up goal range. Tighten CR slightly. 10/05: * Patient received total 21 units of insulin yesterday; 12 units basal and 9 units bolus. * Blood sugars controlled, except hypoglycemic this morning, 62mg/dl - decrease basal. * Continue NovoLog parameters at this time. 10/03: * Patient received total 22 units of insulin yesterday; 12 units basal and 10 units bolus. * BSG at dinner time yesterday = 72 mg/dl- was better than the day before but still lower than expected. * Basal insulin moved to HS today to see if this might prevent low BSG at dinner. However, holding the AM basal did result in a higher pre-lunch BSG today (252 mg/dl). 10/02: * Patient received total 24 units of insulin yesterday; 12 units basal and 12 units bolus. * BSG at dinner was low at 64 mg/dl and patient did not require anymore bolus insulin at dinner or HS yesterday. * Novolog CR was loosened to 15 to prevent hypoglycemia. * Basal dose continued the same. 10/01: * Isai is a 68 YOM admitted with diarrhea and vomitting, presently resolved awaiting placement with a history of T2DM. Pharmacy has been consulted for glycemic management while inpatient. * Isai received 21 units of insulin yesterday (10 were basal) * Fasting BSG elevated this AM, basal insulin increased by 20% * Novolog parameters initiated at around a weight based stress of 2, seems to be covering and correcting adequately at this time, no change PLAN FOR INPATIENT GLYCEMIC CONTROL: * Hold outpatient diabetes medications * Basal insulin * Lantus 7 units SC HS * Bolus insulin * NovoLog per scale ACHS or Q6hrs while NPO * Goal Range: Low 120 mg/dL - High 160 mg/dL * Correction Factor: 45 mg/dL/unit * Nutritional / Prandial insulin per carb ratio of 1 unit per 12 grams CHO consumed
[2023-10-08] MEDS: clonazePAM 0.5 MG TAB PO SCH ×3 (09:15→21:34)
[2023-10-08] MEDS: INSULIN ASPART PER UNIT CHARGE SC SCH ×4 (09:15→21:36)
--- NOTE | 2023-10-08 15:24 | Hospitalist Progress Note ---
Date of Service October 08, 2023 Assessment & Plan (1) Ileus: Plan per Dr. Pacheco's notes with addendum: Mr. Kendall is a 68 year old gentleman with history of cognitive impairment/Klinefelter syndrome, cerebral palsy, DM2, COPD, PVD, TRINIDAD, GERD, chronic stasis dermatitis, hearing loss, osteoporosis, and valvular heart disease (mild MR/TR/Aortic Stenosis) who was admitted on 09/16 due to abdominal pain and diarrhea. Patient was found to have SBO v ileus and managed conservatively. No acute changes in management. Course prolonged due to placement issues and coordinating with [facility]. Patients course was complicated by episode of AMS after large BM and found to have a drop in sodium to 119. Nephrology consulted and felt at this time likely SIADH and urea initiated, with a notable improvement in hyponatremia. Patient to complete course of antibiotics 10/08. #Hypomagnesemia: Monitor and replete with current supplementation #Acute on Chronic hyponatremia*worsening initially, now improving -Thought to be SIADH picture per Nephrology -Trialed on lasix, no improvement, downtrended notably. discontinue diuretics -Nephrology consulted: continue Urea BID, encourage high protein diet, FR 1.5 L -Appreciate further recommendations--plan to hold above course with Urea BID -The following are the discharge recommendations from nephrology: -will need urea at d/c 15 gm bid, ensure this is continued and discussed with placement agency to ensure it is obtained -hold further lasix at d/c given relative hypotension -fluid limit 1.5 L daily -Encourage high-protein diet 3 meals. Patient should be allowed to salt his food. -d/c with current mag supplements -Plan for bmp and mag w/in week of hospital d/c at PCP f/u -hospital d/c appt any physician [facility] 2-4 wks after d/c with bmp, magnesium, urine osms, serum osms, rd urine sodium 3-5 days before appt to be ordered by RENAL nurse 10/08 Na 130 #Acute toxic metabolic encephalopathy, likely 2/2 UTI *improved #Intellectual Disability, Klinefelters #Cerebral Palsy overnight 09/26-09/27; was bradycardic, low bp and SaO2 in 80s on 2L NC O2. UA s/o uti, atb started, UCx w/ GNB; treat as follows Psychiatry consulted: neuropsych meds tapering, recommendations placed 09/28, taper reportedly possibly too fast per 09/30 recs, continue to monitor -Continuing Quetipine 100mg BID in order to not reduce taper and to monitor for any break through behaviors -Continue Gabapentin as ordered' -Continue Trileptal 300mg BID -Continue klonipin 0.5mg TID 10/08 stable #Viral Gastroenteritis *resolved #SBO versus ileus: Likely secondary to gastroenteritis Admitting CT abdomen/pelvis suggestive of ileus Repeat CT head scan of the abdomen pelvis did not show any intestinal obstruction. General surgery evaluated, managed conservatively C.Diff negative Continues to tolerate diet Will continue miralax daily to ensure BM 10/08 stable #Hypoglycemic episode followed by unresponsive episode 09/22/2023: Status post hypoglycemia protocol with improvement. Continue to monitor 10/08 BSG 135 #Diabetes mellitus type 2: Sliding scale insulin while in hospital. Resume home Trulicity, metformin and amaryl when discharged; glycemic consult following #Complicated UTI 2/2 Klebsiella: see above, zosyn 09/27. f/u Cx. zosyn to rocephin 09/28. EOT 10/08, transition to po upon discharge 10/08 completed 10 day course of IV Ceftri Other chronic medical conditions: Continue with/resume home meds as and when able. #Chronic diastolic heart failure (EF 60-65%, TTE 2022), stable #Prior SVT/PAF not on anticoagulation due to fall risk, patient NSR, Continue Metoprolol #mild #PVD on Pentoxifylline #COPD: Not in acute exacerbation. #Elevated TSH iso of infection: Repeat in 4-6 weeks DVT prophylaxis. SCDs DNR Awaiting placement. Admission and Anticipated Discharge Date Admission Date: September 16, 2023 Subjective ff up for gastroenteritis, etc. Seen resting bed, sleeping but easily awakened Good spirits, comfortable States he feels fine overall Has some suprapubic area discomfort Otherwise, no chest pain, shortness of breath, palpitations, dizziness No other new symptoms Discussed with RN Appetite is good, no other issues Review of Systems Review of Systems: all noted and negative except for above Physical Exam Physical Exam: General- oalert, not in distress, speaks in sentences with no effort or accessory muscle use Eyes- anicteric Neck- no JVD Lungs- clear breath sounds bilaterally, no rales/wheezes Heart- normal rate, regular rhythm; no murmurs Abdomen- normal bowel sounds, nondistended, soft, nontender Extremities- no pretibial edema, no calf tenderness Neuro- alert; no new gross focal neurologic deficits Skin- warm & dry Results & Data Results & Data Vital Signs (Past 12 Hours) Vital Signs Temp Pulse Pulse Resp BP Pulse Ox O2 Del Method 10/08/23 15:15 36.6 C 61 16 104/57 L 97 Room Air 10/08/23 15:08 65 10/08/23 11:18 36.3 C L 58 L 18 95/59 L 97 Room Air 10/08/23 07:42 36.4 C L 55 L 18 102/63 99 Room Air 10/08/23 07:06 49 L all noted and reviewed including below
[2023-10-08] MEDS: LANTUS PER UNIT CHARGE SQ SCH (21:35)
[2023-10-08] MEDS: SIMVASTATIN 40 MG TAB PO SCH (21:41)
[2023-10-09] MEDS: ALUMINUM/MAGNESIUM/SIMETH (MAALOX MAX) 30 ML UDC PO SCH ×4 (04:27→21:11)
[2023-10-09] MEDS: PANTOprazole 40 MG TAB PO SCH (08:20)
[2023-10-09] MEDS: SERTRALINE HCL 50 MG TABLET PO SCH (08:20)
[2023-10-09] MEDS: MULTIVITAMIN TAB PO SCH (08:20)
[2023-10-09] MEDS: CEROVITE ADV FORMULA TAB PO SCH (08:21)
[2023-10-09] MEDS: FINASTERIDE 5 MG TAB PO SCH (08:21)
[2023-10-09] MEDS: GABAPENTIN 300 MG CAP PO SCH ×3 (08:21→21:10)
[2023-10-09] MEDS: TAMSULOSIN HCL 0.4 MG CAP PO SCH (08:21)
[2023-10-09] MEDS: UREA (UREA-NA) 15 GM PACK PO SCH ×2 (08:21→21:09)
[2023-10-09] MEDS: ARTIFICIAL TEARS OP SCH ×2 (08:22→21:10)
[2023-10-09] MEDS: QUEtiapine FUMARATE 100 MG TABLET PO SCH ×2 (08:22→21:54)
[2023-10-09] MEDS: OXcarbazepine 150 MG TABLET PO SCH ×2 (08:22→21:10)
[2023-10-09] MEDS: POLYETHYLENE (MIRALAX) 17 GM PACK PO SCH (08:22)
[2023-10-09] MEDS: UMECLIDINIUM BROMIDE 62.5MCG/BLISTER 7 PUFFS/INHALER INH SCH (08:23)
[2023-10-09] MEDS: MAGNESIUM CHLORIDE W/CALCIUM 64MG DELAYED REL TAB PO SCH (08:23)
[2023-10-09] MEDS: CLOTRIMAZOLE 1% CR 15 GM TUBE EXT SCH ×2 (08:24→21:19)
[2023-10-09] MEDS: clonazePAM 0.5 MG TAB PO SCH ×3 (08:26→21:11)
[2023-10-09] MEDS: INSULIN ASPART PER UNIT CHARGE SC SCH ×4 (08:56→21:14)
--- NOTE | 2023-10-09 16:20 | Hospitalist Progress Note ---
Date of Service October 09, 2023 Assessment & Plan (1) Ileus: Plan per Dr. Pacheco's notes with addendum: Mr. Kendall is a 68 year old gentleman with history of cognitive impairment/Klinefelter syndrome, cerebral palsy, DM2, COPD, PVD, TRINIDAD, GERD, chronic stasis dermatitis, hearing loss, osteoporosis, and valvular heart disease (mild MR/TR/Aortic Stenosis) who was admitted on 09/16 due to abdominal pain and diarrhea. Patient was found to have SBO v ileus and managed conservatively. No acute changes in management. Course prolonged due to placement issues and coordinating with [facility]. Patients course was complicated by episode of AMS after large BM and found to have a drop in sodium to 119. Nephrology consulted and felt at this time likely SIADH and urea initiated, with a notable improvement in hyponatremia. Patient to complete course of antibiotics 10/08. #Hypomagnesemia: Monitor and replete with current supplementation #Acute on Chronic hyponatremia*worsening initially, now improving -Thought to be SIADH picture per Nephrology -Trialed on lasix, no improvement, downtrended notably. discontinue diuretics -Nephrology consulted: continue Urea BID, encourage high protein diet, FR 1.5 L -Appreciate further recommendations--plan to hold above course with Urea BID -The following are the discharge recommendations from nephrology: -will need urea at d/c 15 gm bid, ensure this is continued and discussed with placement agency to ensure it is obtained -hold further lasix at d/c given relative hypotension -fluid limit 1.5 L daily -Encourage high-protein diet 3 meals. Patient should be allowed to salt his food. -d/c with current mag supplements -Plan for bmp and mag w/in week of hospital d/c at PCP f/u -hospital d/c appt any physician [facility] 2-4 wks after d/c with bmp, magnesium, urine osms, serum osms, rd urine sodium 3-5 days before appt to be ordered by RENAL nurse 10/09 repeat Na tomorrow #Acute toxic metabolic encephalopathy, likely 2/2 UTI *improved #Intellectual Disability, Klinefelters #Cerebral Palsy overnight 09/26-09/27; was bradycardic, low bp and SaO2 in 80s on 2L [place] O2. UA s/o uti, atb started, UCx w/ GNB; treat as follows Psychiatry consulted: neuropsych meds tapering, recommendations placed 09/28, taper reportedly possibly too fast per 09/30 recs, continue to monitor -Continuing Quetipine 100mg BID in order to not reduce taper and to monitor for any break through behaviors -Continue Gabapentin as ordered' -Continue Trileptal 300mg BID -Continue klonipin 0.5mg TID 10/09 stable #Viral Gastroenteritis *resolved #SBO versus ileus: Likely secondary to gastroenteritis Admitting CT abdomen/pelvis suggestive of ileus Repeat CT head scan of the abdomen pelvis did not show any intestinal obstruction. General surgery evaluated, managed conservatively C.Diff negative Continues to tolerate diet Will continue miralax daily to ensure BM 10/09 stable #Hypoglycemic episode followed by unresponsive episode 09/22/2023: Status post hypoglycemia protocol with improvement. Continue to monitor 10/08 BSG 186 #Diabetes mellitus type 2: Sliding scale insulin while in hospital. Resume home Trulicity, metformin and amaryl when discharged; glycemic consult following #Complicated UTI 2/2 Klebsiella: see above, zosyn 09/27. f/u Cx. zosyn to rocephin 09/28. EOT 10/08, transition to po upon discharge 10/09 completed 10 day course of IV Ceftri Other chronic medical conditions: Continue with/resume home meds as and when able. #Chronic diastolic heart failure (EF 60-65%, TTE 2022), stable #Prior SVT/PAF not on anticoagulation due to fall risk, patient NSR, Continue Metoprolol #mild #PVD on Pentoxifylline #COPD: Not in acute exacerbation. #Elevated TSH iso of infection: Repeat in 4-6 weeks DVT prophylaxis. SCDs DNR Awaiting placement. Admission and Anticipated Discharge Date Admission Date: September 16, 2023 Subjective Follow-up for ileus, etc. Seen resting in bed sleeping but easily awakened In good spirits States she feels fine overall Denies pain, Shortness of breath No other new symptoms Discussed with RN No new issues or symptoms Tolerating diet well Review of Systems Review of Systems: all noted and negative except for above Physical Exam Physical Exam: General- not in distress, breathing with no effort or accessory muscle use Eyes- anicteric Neck- no JVD Lungs- clear breath sounds bilaterally, no rales/wheezes Heart- normal rate, regular rhythm; no murmurs Abdomen- normal bowel sounds, nondistended, soft, no tenderness Extremities- no pretibial edema, no calf tenderness Neuro- alert, no new gross focal neurologic deficits Skin- warm & dry Results & Data Results & Data Vital Signs (Past 12 Hours) Vital Signs Temp Pulse Pulse Resp BP Pulse Ox O2 Del Method 10/09/23 15:08 36.5 C 60 20 133/72 98 Room Air 10/09/23 14:53 70 10/09/23 11:13 36.4 C L 54 L 20 128/72 98 Room Air 10/09/23 08:00 Room Air 10/09/23 07:53 36.4 C L 55 L 20 105/61 97 Room Air 10/09/23 07:00 53 L all noted and reviewed including below
[2023-10-09] MEDS ORDERED: LANTUS PER UNIT CHARGE SQ SCH (21:00)
[2023-10-09] MEDS: SIMVASTATIN 40 MG TAB PO SCH (21:10)
[2023-10-10] MEDS: ALUMINUM/MAGNESIUM/SIMETH (MAALOX MAX) 30 ML UDC PO SCH ×4 (04:58→22:46)
[2023-10-10 07:34] LABS: Calcium 9.6 mg/dl (8.6-10.3); Creatinine Clr Calc Pharmacy 118.5 ml/min; Est GFR (African American) 128.2 ml/min; Est GFR (Non-African American) 110.6 ml/min; Potassium 4.2 mmol/L (3.5-5.1)
[2023-10-10] MEDS: MULTIVITAMIN TAB PO SCH (08:05)
[2023-10-10] MEDS: QUEtiapine FUMARATE 100 MG TABLET PO SCH ×2 (08:05→20:34)
[2023-10-10] MEDS: CEROVITE ADV FORMULA TAB PO SCH (08:06)
[2023-10-10] MEDS: PANTOprazole 40 MG TAB PO SCH ×2 (08:06→20:36)
[2023-10-10] MEDS: TAMSULOSIN HCL 0.4 MG CAP PO SCH (08:06)
[2023-10-10] MEDS: MAGNESIUM CHLORIDE W/CALCIUM 64MG DELAYED REL TAB PO SCH (08:06)
[2023-10-10] MEDS: FINASTERIDE 5 MG TAB PO SCH (08:06)
[2023-10-10] MEDS: SERTRALINE HCL 50 MG TABLET PO SCH (08:07)
[2023-10-10] MEDS: OXcarbazepine 150 MG TABLET PO SCH ×2 (08:07→20:36)
[2023-10-10] MEDS: POLYETHYLENE (MIRALAX) 17 GM PACK PO SCH (08:07)
[2023-10-10] MEDS: UMECLIDINIUM BROMIDE 62.5MCG/BLISTER 7 PUFFS/INHALER INH SCH (08:07)
[2023-10-10] MEDS: GABAPENTIN 300 MG CAP PO SCH ×3 (08:07→22:46)
[2023-10-10] MEDS: UREA (UREA-NA) 15 GM PACK PO SCH ×2 (08:07→20:38)
[2023-10-10] MEDS: ARTIFICIAL TEARS OP SCH ×2 (08:08→20:34)
[2023-10-10] MEDS: CLOTRIMAZOLE 1% CR 15 GM TUBE EXT SCH ×2 (08:08→22:46)
[2023-10-10] MEDS: clonazePAM 0.5 MG TAB PO SCH ×3 (08:10→20:34)
[2023-10-10] MEDS: INSULIN ASPART PER UNIT CHARGE SC SCH ×4 (08:42→20:37)
--- NOTE | 2023-10-10 09:13 | Pharmacy Report ---
Pharmacy Glycemic Short Note 2 - Date of Service October 10, 2023 - Glycemic Short BSG Results (Last 24 hours): 10/09/23 10/09/23 10/09/23 12:07 17:05 19:59 Glucose POC Glucose 186 H 120 H 150 H 10/10/23 10/10/23 06:15 08:15 Glucose 75 POC Glucose 72 OUTPATIENT ANTIDIABETIC REGIMEN: * metformin 1000mg BID * glimeperide 1 mg PO daily * Trulicity 3mg SC Qwk * HbA1c 7.5% (10/02/23) ASSESSMENT: 10/10: * Patient received total of 13 units of insulin yesterday; 6 units basal + 7 units bolus. BSGs were 50-430-140-150 mg/dl. * Fasting BSG today was 72 mg/dl. Basal insulin reduced further to 5 units at HS to prevent BSG from going lower in the AM. 10/08: * Isai received 19 units of insulin yesterday, 7 basal + 12 bolus. BSGs were: 367-492-852-89 mg/dL. * Fasting BSG was 139 mg/dL this AM. Will continue with current basal dose which was reduced on 10/06/23. * CF loosened yesterday but postprandials still trended down to below goal range throughout the day. Will loosen carb ratio this morning. 10/06: * BSGs yesterday were 65/97-700-91-145 mg/dL. Patient received 15 units of insulin (8 units of basal and 7 units of bolus) * BSGs today are 66/115-173 * Will reduce Lantus slightly to 7 units today. PRP BSG was slightly higher at 82 today so suspect that patient's fasting will trend upwards today. Based upon previous days, Lantus 5 units is not sufficient. * Patient appears to overcorrect when BSG elevated. Loosen CF to 45 and up goal range. Tighten CR slightly. 10/05: * Patient received total 21 units of insulin yesterday; 12 units basal and 9 units bolus. * Blood sugars controlled, except hypoglycemic this morning, 62mg/dl - decrease basal. * Continue NovoLog parameters at this time. 10/03: * Patient received total 22 units of insulin yesterday; 12 units basal and 10 units bolus. * BSG at dinner time yesterday = 72 mg/dl- was better than the day before but still lower than expected. * Basal insulin moved to HS today to see if this might prevent low BSG at dinner. However, holding the AM basal did result in a higher pre-lunch BSG today (252 mg/dl). 10/02: * Patient received total 24 units of insulin yesterday; 12 units basal and 12 units bolus. * BSG at dinner was low at 64 mg/dl and patient did not require anymore bolus insulin at dinner or HS yesterday. * Novolog CR was loosened to 15 to prevent hypoglycemia. * Basal dose continued the same. 10/01: * Isai is a 68 YOM admitted with diarrhea and vomitting, presently resolved awaiting placement with a history of T2DM. Pharmacy has been consulted for glycemic management while inpatient. * Isai received 21 units of insulin yesterday (10 were basal) * Fasting BSG elevated this AM, basal insulin increased by 20% * Novolog parameters initiated at around a weight based stress of 2, seems to be covering and correcting adequately at this time, no change PLAN FOR INPATIENT GLYCEMIC CONTROL: * Hold outpatient diabetes medications * Basal insulin * Lantus 5 units SC HS * Bolus insulin * NovoLog per scale ACHS or Q6hrs while NPO * Goal Range: Low 120 mg/dL - High 160 mg/dL * Correction Factor: 45 mg/dL/unit * Nutritional / Prandial insulin per carb ratio of 1 unit per 15 grams CHO consumed
[2023-10-10] MEDS: BISMUTH SUBSALICYLATE 262 MG CHEW PO PRN (10:48)
[2023-10-10] MEDS: ADVANCED PROBIOTIC 1250 MG CAPSULE PO SCH (12:09)
--- NOTE | 2023-10-10 14:47 | Hospitalist Progress Note ---
Date of Service October 10, 2023 Assessment & Plan (1) Ileus: Plan per Dr. Pacheco's notes with addendum: Mr. Kendall is a 68 year old gentleman with history of cognitive impairment/Klinefelter syndrome, cerebral palsy, DM2, COPD, PVD, TRINIDAD, GERD, chronic stasis dermatitis, hearing loss, osteoporosis, and valvular heart disease (mild MR/TR/Aortic Stenosis) who was admitted on 09/16 due to abdominal pain and diarrhea. Patient was found to have SBO v ileus and managed conservatively. No acute changes in management. Course prolonged due to placement issues and coordinating with [facility]. Patients course was complicated by episode of AMS after large BM and found to have a drop in sodium to 119. Nephrology consulted and felt at this time likely SIADH and urea initiated, with a notable improvement in hyponatremia. Patient to complete course of antibiotics 10/08. #Hypomagnesemia: Monitor and replete with current supplementation #Acute on Chronic hyponatremia*worsening initially, now improving -Thought to be SIADH picture per Nephrology -Trialed on lasix, no improvement, downtrended notably. discontinue diuretics -Nephrology consulted: continue Urea BID, encourage high protein diet, FR 1.5 L -Appreciate further recommendations--plan to hold above course with Urea BID -The following are the discharge recommendations from nephrology: -will need urea at d/c 15 gm bid, ensure this is continued and discussed with placement agency to ensure it is obtained -hold further lasix at d/c given relative hypotension -fluid limit 1.5 L daily -Encourage high-protein diet 3 meals. Patient should be allowed to salt his food. -d/c with current mag supplements -Plan for bmp and mag w/in week of hospital d/c at PCP f/u -hospital d/c appt any physician [place] 2-4 wks after d/c with bmp, magnesium, urine osms, serum osms, rd urine sodium 3-5 days before appt to be ordered by RENAL nurse 10/10 Na 136 #Acute toxic metabolic encephalopathy, likely 2/2 UTI *improved #Intellectual Disability, Klinefelters #Cerebral Palsy overnight 09/26-09/27; was bradycardic, low bp and SaO2 in 80s on 2L [place] O2. UA s/o uti, atb started, UCx w/ GNB; treat as follows Psychiatry consulted: neuropsych meds tapering, recommendations placed 09/28, taper reportedly possibly too fast per 09/30 recs, continue to monitor -Continuing Quetipine 100mg BID in order to not reduce taper and to monitor for any break through behaviors -Continue Gabapentin as ordered' -Continue Trileptal 300mg BID -Continue klonipin 0.5mg TID 10/10 stable #Viral Gastroenteritis *resolved #SBO versus ileus: Likely secondary to gastroenteritis Admitting CT abdomen/pelvis suggestive of ileus Repeat CT head scan of the abdomen pelvis did not show any intestinal obstruction. General surgery evaluated, managed conservatively C.Diff negative Continues to tolerate diet Will continue miralax daily to ensure BM 10/10 stable (+) BMs #Hypoglycemic episode followed by unresponsive episode 09/22/2023: Status post hypoglycemia protocol with improvement. Continue to monitor resolved #Diabetes mellitus type 2: Sliding scale insulin while in hospital. Resume home Trulicity, metformin and amaryl when discharged; glycemic consult following #Complicated UTI 2/2 Klebsiella: see above, zosyn 09/27. f/u Cx. zosyn to rocephin 09/28. EOT 10/08, transition to po upon discharge 10/10 completed 10 day course of IV Ceftri Other chronic medical conditions: Continue with/resume home meds as and when able. #Chronic diastolic heart failure (EF 60-65%, TTE 2022), stable #Prior SVT/PAF not on anticoagulation due to fall risk, patient NSR, Continue Metoprolol #mild #PVD on Pentoxifylline #COPD: Not in acute exacerbation. #Elevated TSH iso of infection: Repeat in 4-6 weeks DVT prophylaxis. SCDs DNR Awaiting placement. Admission and Anticipated Discharge Date Admission Date: September 16, 2023 Subjective Follow-up for ileus, etc. Resting in bed, sleeping is awakened Some lower abdominal discomfort, no nausea or vomiting Discussed with RN, no symptoms or symptoms notes Review of Systems Review of Systems: all noted and negative except for above Physical Exam Physical Exam: General- not in distress, speaks in sentences with no effort or accessory muscle use Eyes- anicteric Neck- no JVD Lungs- clear breath sounds bl Heart- normal rate, regular rhythm; no murmurs Abdomen- normal bowel sounds, nondistended, soft, nontender Extremities- no pretibial edema, no calf tenderness Neuro- alert, oriented x 1; no new gross focal neurologic deficits Skin- warm & dry Results & Data Results & Data Vital Signs (Past 12 Hours) Vital Signs Temp Pulse Resp BP Pulse Ox O2 Del Method 10/10/23 11:58 36.4 C L 55 L 18 113/70 96 Room Air 10/10/23 08:00 Room Air 10/10/23 07:53 36.6 C 55 L 18 128/77 96 Room Air 10/10/23 04:00 36.5 C 54 L 18 109/58 L 95 Room Air all noted and reviewed including below
[2023-10-10] MEDS: SIMVASTATIN 40 MG TAB PO SCH (20:35)
[2023-10-10] MEDS ORDERED: LANTUS PER UNIT CHARGE SQ SCH (21:00)
[2023-10-11] MEDS: ALUMINUM/MAGNESIUM/SIMETH (MAALOX MAX) 30 ML UDC PO SCH ×4 (04:50→21:44)
[2023-10-11] MEDS: UREA (UREA-NA) 15 GM PACK PO SCH ×2 (07:31→20:13)
[2023-10-11] MEDS: MULTIVITAMIN TAB PO SCH (07:31)
[2023-10-11] MEDS: TAMSULOSIN HCL 0.4 MG CAP PO SCH (07:31)
[2023-10-11] MEDS: CEROVITE ADV FORMULA TAB PO SCH (07:32)
[2023-10-11] MEDS: GABAPENTIN 300 MG CAP PO SCH ×3 (07:32→20:15)
[2023-10-11] MEDS: SERTRALINE HCL 50 MG TABLET PO SCH (07:32)
[2023-10-11] MEDS: MAGNESIUM CHLORIDE W/CALCIUM 64MG DELAYED REL TAB PO SCH (07:32)
[2023-10-11] MEDS: ADVANCED PROBIOTIC 1250 MG CAPSULE PO SCH (07:33)
[2023-10-11] MEDS: FINASTERIDE 5 MG TAB PO SCH (07:33)
[2023-10-11] MEDS: POLYETHYLENE (MIRALAX) 17 GM PACK PO SCH (07:34)
[2023-10-11] MEDS: OXcarbazepine 150 MG TABLET PO SCH ×2 (07:34→20:15)
[2023-10-11] MEDS: QUEtiapine FUMARATE 100 MG TABLET PO SCH ×2 (07:34→20:15)
[2023-10-11] MEDS: ARTIFICIAL TEARS OP SCH ×2 (07:35→20:16)
[2023-10-11] MEDS: CLOTRIMAZOLE 1% CR 15 GM TUBE EXT SCH ×2 (07:35→20:17)
[2023-10-11] MEDS: UMECLIDINIUM BROMIDE 62.5MCG/BLISTER 7 PUFFS/INHALER INH SCH (07:36)
[2023-10-11] MEDS: PANTOprazole 40 MG TAB PO SCH ×2 (07:36→20:14)
[2023-10-11] MEDS: clonazePAM 0.5 MG TAB PO SCH ×3 (07:42→19:43)
[2023-10-11] MEDS: INSULIN ASPART PER UNIT CHARGE SC SCH ×4 (09:06→20:17)
--- NOTE | 2023-10-11 15:40 | Hospitalist Progress Note ---
Date of Service October 11, 2023 Assessment & Plan (1) Ileus: Plan per Dr. Pacheco's notes with addendum: Mr. Kendall is a 68 year old gentleman with history of cognitive impairment/Klinefelter syndrome, cerebral palsy, DM2, COPD, PVD, TRINIDAD, GERD, chronic stasis dermatitis, hearing loss, osteoporosis, and valvular heart disease (mild MR/TR/Aortic Stenosis) who was admitted on 09/16 due to abdominal pain and diarrhea. Patient was found to have SBO v ileus and managed conservatively. No acute changes in management. Course prolonged due to placement issues and coordinating with [facility]. Patients course was complicated by episode of AMS after large BM and found to have a drop in sodium to 119. Nephrology consulted and felt at this time likely SIADH and urea initiated, with a notable improvement in hyponatremia. Patient to complete course of antibiotics 10/08. #Hypomagnesemia: Monitor and replete with current supplementation #Acute on Chronic hyponatremia*worsening initially, now improving -Thought to be SIADH picture per Nephrology -Trialed on lasix, no improvement, downtrended notably. discontinue diuretics -Nephrology consulted: continue Urea BID, encourage high protein diet, FR 1.5 L -Appreciate further recommendations--plan to hold above course with Urea BID -The following are the discharge recommendations from nephrology: -will need urea at d/c 15 gm bid, ensure this is continued and discussed with placement agency to ensure it is obtained -hold further lasix at d/c given relative hypotension -fluid limit 1.5 L daily -Encourage high-protein diet 3 meals. Patient should be allowed to salt his food. -d/c with current mag supplements -Plan for bmp and mag w/in week of hospital d/c at PCP f/u -hospital d/c appt any physician [place] 2-4 wks after d/c with bmp, magnesium, urine osms, serum osms, rd urine sodium 3-5 days before appt to be ordered by RENAL nurse Na 136 #Acute toxic metabolic encephalopathy, likely 2/2 UTI *improved #Intellectual Disability, Klinefelters #Cerebral Palsy overnight 09/26-09/27; was bradycardic, low bp and SaO2 in 80s on 2L [place] O2. UA s/o uti, atb started, UCx w/ GNB; treat as follows Psychiatry consulted: neuropsych meds tapering, recommendations placed 09/28, taper reportedly possibly too fast per 09/30 recs, continue to monitor -Continuing Quetipine 100mg BID in order to not reduce taper and to monitor for any break through behaviors -Continue Gabapentin as ordered' -Continue Trileptal 300mg BID -Continue klonipin 0.5mg TID 10/11 stable #Viral Gastroenteritis *resolved #SBO versus ileus: Likely secondary to gastroenteritis Admitting CT abdomen/pelvis suggestive of ileus Repeat CT head scan of the abdomen pelvis did not show any intestinal obstruction. General surgery evaluated, managed conservatively C.Diff negative Continues to tolerate diet Will continue miralax daily to ensure BM 10/11 stable (+) BMs #Hypoglycemic episode followed by unresponsive episode 09/22/2023: Status post hypoglycemia protocol with improvement. Continue to monitor resolved #Diabetes mellitus type 2: Sliding scale insulin while in hospital. Resume home Trulicity, metformin and amaryl when discharged; glycemic consult following #Complicated UTI 2/2 Klebsiella: see above, zosyn 09/27. f/u Cx. zosyn to rocephin 09/28. EOT 10/08, transition to po upon discharge 10/11 completed 10 day course of IV Ceftri Other chronic medical conditions: Continue with/resume home meds as and when able. #Chronic diastolic heart failure (EF 60-65%, TTE 2022), stable -- BP on the lower side Lasix on hold Start gentle IV fluids #Prior SVT/PAF not on anticoagulation due to fall risk, patient NSR, Continue Metoprolol #mild #PVD on Pentoxifylline #COPD: Not in acute exacerbation. #Elevated TSH iso of infection: Repeat in 4-6 weeks DVT prophylaxis. SCDs DNR Awaiting placement. Admission and Anticipated Discharge Date Admission Date: September 16, 2023 Subjective Follow-up for gastroenteritis, etc. Seen sitting up in bed, comfortable, not in distress States he feels fine overall Denies pain, shortness of breath No other new symptoms No other issues per district court justice of Systems Review of Systems: all noted and negative except for above Physical Exam Physical Exam: General- awake, not in distress, speaks with no effort or accessory muscle use Eyes- anicteric Neck- no JVD Lungs- clear breath sounds bilaterally Heart- normal rate, regular rhythm; no murmurs Abdomen- normal bowel sounds, nondistended, soft, no tenderness Extremities- no pretibial edema, no calf tenderness Neuro- alert, no new Gross focal neurologic deficits Skin- warm & dry Results & Data Results & Data Vital Signs (Past 12 Hours) Vital Signs Temp Pulse Pulse Resp BP Pulse Ox O2 Del Method 10/11/23 12:16 36.8 C 61 16 88/43 L 96 Room Air 10/11/23 07:55 36.4 C L 54 L 16 128/75 96 Room Air 10/11/23 07:16 57 L all noted and reviewed including below
[2023-10-11] MEDS: SODIUM CHLORIDE 0.9% 1,000 ML IV SCH (16:28)
[2023-10-11] MEDS: SIMVASTATIN 40 MG TAB PO SCH (20:14)
[2023-10-11] MEDS: LANTUS PER UNIT CHARGE SQ SCH (20:21)
[2023-10-12] MEDS: ALUMINUM/MAGNESIUM/SIMETH (MAALOX MAX) 30 ML UDC PO SCH ×4 (05:09→21:11)
[2023-10-12] MEDS: OXcarbazepine 150 MG TABLET PO SCH ×2 (09:16→21:08)
[2023-10-12] MEDS: PANTOprazole 40 MG TAB PO SCH ×2 (09:17→21:09)
[2023-10-12] MEDS: ACETAMINOPHEN 325 MG TAB PO PRN (09:17)
[2023-10-12] MEDS: SIMETHICONE 80 MG CHEW PO PRN (09:17)
[2023-10-12] MEDS: CEROVITE ADV FORMULA TAB PO SCH (09:17)
[2023-10-12] MEDS: MAGNESIUM CHLORIDE W/CALCIUM 64MG DELAYED REL TAB PO SCH (09:17)
[2023-10-12] MEDS: MULTIVITAMIN TAB PO SCH (09:17)
[2023-10-12] MEDS: QUEtiapine FUMARATE 100 MG TABLET PO SCH ×2 (09:18→21:11)
[2023-10-12] MEDS: clonazePAM 0.5 MG TAB PO SCH ×3 (09:18→21:07)
[2023-10-12] MEDS: GABAPENTIN 300 MG CAP PO SCH ×3 (09:20→21:10)
[2023-10-12] MEDS: ADVANCED PROBIOTIC 1250 MG CAPSULE PO SCH (09:20)
[2023-10-12] MEDS: POLYETHYLENE (MIRALAX) 17 GM PACK PO SCH (09:21)
[2023-10-12] MEDS: FINASTERIDE 5 MG TAB PO SCH (09:22)
[2023-10-12] MEDS: SERTRALINE HCL 50 MG TABLET PO SCH (09:22)
[2023-10-12] MEDS: UMECLIDINIUM BROMIDE 62.5MCG/BLISTER 7 PUFFS/INHALER INH SCH (09:22)
[2023-10-12] MEDS: UREA (UREA-NA) 15 GM PACK PO SCH ×2 (09:23→21:12)
[2023-10-12] MEDS: TAMSULOSIN HCL 0.4 MG CAP PO SCH (09:23)
[2023-10-12] MEDS: INSULIN ASPART PER UNIT CHARGE SC SCH ×4 (09:24→21:08)
[2023-10-12] MEDS: CLOTRIMAZOLE 1% CR 15 GM TUBE EXT SCH ×2 (09:24→21:58)
[2023-10-12] MEDS: ARTIFICIAL TEARS OP SCH ×2 (09:24→21:10)
[2023-10-12] MEDS: SODIUM CHLORIDE 0.9% 1,000 ML IV SCH (10:03)
--- NOTE | 2023-10-12 16:37 | Hospitalist Progress Note ---
Date of Service October 12, 2023 Assessment & Plan (1) Gastroenteritis: (2) Nausea vomiting and diarrhea: (3) Encephalopathy: Plan: (1) Ileus: Plan per Dr. Pacheco's notes with addendum: Mr. Kendall is a 68 year old gentleman with history of cognitive impairment/Klinefelter syndrome, cerebral palsy, DM2, COPD, PVD, TRINIDAD, GERD, chronic stasis dermatitis, hearing loss, osteoporosis, and valvular heart disease (mild MR/TR/Aortic Stenosis) who was admitted on 09/16 due to abdominal pain and diarrhea. Patient was found to have SBO v ileus and managed conservatively. No acute changes in management. Course prolonged due to placement issues and coordinating with [facility] A[facility]. Patients course was complicated by episode of AMS after large BM and found to have a drop in sodium to 119. Nephrology consulted and felt at this time likely SIADH and urea initiated, with a notable improvement in hyponatremia. Patient to complete course of antibiotics 10/08. #Hypomagnesemia: Monitor and replete with current supplementation #Acute on Chronic hyponatremia*worsening initially, now improving -Thought to be SIADH picture per Nephrology -Trialed on lasix, no improvement, downtrended notably. discontinue diuretics -Nephrology consulted: continue Urea BID, encourage high protein diet, FR 1.5 L -Appreciate further recommendations--plan to hold above course with Urea BID -The following are the discharge recommendations from nephrology: -will need urea at d/c 15 gm bid, ensure this is continued and discussed with placement agency to ensure it is obtained -hold further lasix at d/c given relative hypotension -fluid limit 1.5 L daily -Encourage high-protein diet 3 meals. Patient should be allowed to salt his food. -d/c with current mag supplements -Plan for bmp and mag w/in week of hospital d/c at PCP f/u -hospital d/c appt any physician [place] 2-4 wks after d/c with bmp, magnesium, urine osms, serum osms, rd urine sodium 3-5 days before appt to be ordered by RENAL nurse Na 136 #Acute toxic metabolic encephalopathy, likely 2/2 UTI *improved #Intellectual Disability, Klinefelters #Cerebral Palsy overnight 09/26-09/27; was bradycardic, low bp and SaO2 in 80s on 2L [place] O2. UA s/o uti, atb started, UCx w/ GNB; treat as follows Psychiatry consulted: neuropsych meds tapering, recommendations placed 09/28, taper reportedly possibly too fast per 09/30 recs, continue to monitor -Continuing Quetipine 100mg BID in order to not reduce taper and to monitor for any break through behaviors -Continue Gabapentin as ordered' -Continue Trileptal 300mg BID -Continue klonipin 0.5mg TID 10/12 stable #Viral Gastroenteritis *resolved #SBO versus ileus: Likely secondary to gastroenteritis Admitting CT abdomen/pelvis suggestive of ileus Repeat CT head scan of the abdomen pelvis did not show any intestinal obstruction. General surgery evaluated, managed conservatively C.Diff negative Continues to tolerate diet Will continue miralax daily to ensure BM 10/12 stable (+) BMs #Hypoglycemic episode followed by unresponsive episode 09/22/2023: Status post hypoglycemia protocol with improvement. Continue to monitor resolved #Diabetes mellitus type 2: Sliding scale insulin while in hospital. Resume home Trulicity, metformin and amaryl when discharged; glycemic consult following #Complicated UTI 2/2 Klebsiella: see above, zosyn 09/27. f/u Cx. zosyn to rocephin 09/28. EOT 10/08, transition to po upon discharge 10/12 completed 10 day course of IV Ceftri Other chronic medical conditions: Continue with/resume home meds as and when able. #Chronic diastolic heart failure (EF 60-65%, TTE 2022), stable -- BP on the lower side Lasix on hold Started gentle IV fluids continue for now #Prior SVT/PAF not on anticoagulation due to fall risk, patient NSR, Continue Metoprolol #mild #PVD on Pentoxifylline #COPD: Not in acute exacerbation. #Elevated TSH iso of infection: Repeat in 4-6 weeks DVT prophylaxis. SCDs DNR Awaiting placement. Admission and Anticipated Discharge Date Admission Date: September 16, 2023 Subjective Follow-up for gastroenteritis, etc. Seen resting in bed, sitting up, having lunch Good spirits States he feels all right, happy Denies pain, shortness of breath, nausea No other issues per addiction social worker of Systems Review of Systems: all noted and negative except for above Physical Exam Physical Exam: General- alert, not in distress, speaks in sentences with no effort or accessory muscle use Eyes- anicteric Neck- no JVD Lungs- clear breath sounds BL Heart- normal rate, regular rhythm; no murmurs Abdomen- normal bowel sounds, nondistended, soft, nontender Extremities- no pretibial edema, no calf tenderness Neuro- alert, no new gross focal neurologic deficits Skin- warm & dry Results & Data Results & Data Vital Signs (Past 12 Hours) Vital Signs Temp Pulse Pulse Resp BP Pulse Ox O2 Del Method 10/12/23 12:10 36.7 C 54 L 16 129/72 94 Room Air 10/12/23 08:00 61 10/12/23 07:45 36.5 C 54 L 14 116/61 95 Room Air all noted and reviewed including below
[2023-10-12] MEDS: SIMVASTATIN 40 MG TAB PO SCH (21:07)
[2023-10-12] MEDS: LANTUS PER UNIT CHARGE SQ SCH (21:08)
[2023-10-13] MEDS: SODIUM CHLORIDE 0.9% 1,000 ML IV SCH ×2 (02:06→17:21)
[2023-10-13] MEDS: ALUMINUM/MAGNESIUM/SIMETH (MAALOX MAX) 30 ML UDC PO SCH ×4 (03:33→20:54)
[2023-10-13] MEDS: ACETAMINOPHEN 325 MG TAB PO PRN ×2 (08:17→15:51)
[2023-10-13] MEDS: PANTOprazole 40 MG TAB PO SCH ×2 (08:19→20:52)
[2023-10-13] MEDS: ARTIFICIAL TEARS OP SCH ×2 (08:19→20:51)
[2023-10-13] MEDS: OXcarbazepine 150 MG TABLET PO SCH ×2 (08:19→20:53)
[2023-10-13] MEDS: GABAPENTIN 300 MG CAP PO SCH ×3 (08:20→20:53)
[2023-10-13] MEDS: TAMSULOSIN HCL 0.4 MG CAP PO SCH (08:21)
[2023-10-13] MEDS: MAGNESIUM CHLORIDE W/CALCIUM 64MG DELAYED REL TAB PO SCH (08:22)
[2023-10-13] MEDS: MULTIVITAMIN TAB PO SCH (08:22)
[2023-10-13] MEDS: SERTRALINE HCL 50 MG TABLET PO SCH (08:22)
[2023-10-13] MEDS: CEROVITE ADV FORMULA TAB PO SCH (08:22)
[2023-10-13] MEDS: ADVANCED PROBIOTIC 1250 MG CAPSULE PO SCH (08:22)
[2023-10-13] MEDS: FINASTERIDE 5 MG TAB PO SCH (08:22)
[2023-10-13] MEDS: POLYETHYLENE (MIRALAX) 17 GM PACK PO SCH (08:23)
[2023-10-13] MEDS: CLOTRIMAZOLE 1% CR 15 GM TUBE EXT SCH ×2 (08:23→20:51)
[2023-10-13] MEDS: UREA (UREA-NA) 15 GM PACK PO SCH ×2 (08:23→20:51)
[2023-10-13] MEDS: QUEtiapine FUMARATE 100 MG TABLET PO SCH ×2 (08:23→20:51)
[2023-10-13] MEDS: UMECLIDINIUM BROMIDE 62.5MCG/BLISTER 7 PUFFS/INHALER INH SCH (08:23)
[2023-10-13] MEDS: INSULIN ASPART PER UNIT CHARGE SC SCH ×5 (08:33→23:51)
[2023-10-13] MEDS: clonazePAM 0.5 MG TAB PO SCH ×3 (08:34→20:50)
[2023-10-13] MEDS: LOPERAMIDE HCL 2 MG CAP PO PRN ×2 (09:30→20:50)
--- NOTE | 2023-10-13 09:53 | Pharmacy Report ---
Pharmacy Glycemic Short Note 2 - Date of Service October 13, 2023 - Glycemic Short BSG Results (Last 24 hours): 10/12/23 10/12/23 10/12/23 12: 16:52 20:50 POC Glucose 149 H 96 255 H 10/13/23 07:52 POC Glucose 135 H OUTPATIENT ANTIDIABETIC REGIMEN: * metformin 1000mg BID * glimeperide 1 mg PO daily * Trulicity 3mg SC Qwk * HbA1c 7.5% (10/02/23) ASSESSMENT: 10/13: * 22 units SQ insulin given over last 24 hours, while tolerating a diet * Fasting BSG at goal this AM; 6 units basal on board - however pt did receive correctional insulin last evening; continue same basal dose for now * Post-prandial BSGs at goal 2 of 3 yesterday. HS elevation likely due to lack of prandial coverage of late evening meal; continue the same CR/CF for now 10/10: * Patient received total of 13 units of insulin yesterday; 6 units basal + 7 units bolus. BSGs were [phone] mg/dl. * Fasting BSG today was 72 mg/dl. Basal insulin reduced further to 5 units at HS to prevent BSG from going lower in the AM. 10/08: * Isai received 19 units of insulin yesterday, 7 basal + 12 bolus. BSGs were: 962-380-277-89 mg/dL. * Fasting BSG was 139 mg/dL this AM. Will continue with current basal dose which was reduced on 10/06/23. * CF loosened yesterday but postprandials still trended down to below goal range throughout the day. Will loosen carb ratio this morning. PLAN FOR INPATIENT GLYCEMIC CONTROL: * Hold outpatient diabetes medications * Basal insulin * Lantus 6 units SC Q HS * Bolus insulin * NovoLog per scale ACHS or Q6hrs while NPO * Goal Range: Low 120 mg/dL - High 160 mg/dL * Correction Factor: 45 mg/dL/unit * Nutritional / Prandial insulin per carb ratio of 1 unit per 10 grams CHO consumed
--- NOTE | 2023-10-13 12:10 | XRay Report ---
XR knee LT 1 or 2V routine CLINICAL HISTORY: pain, r/o fracture TECHNIQUE: 2 views of the left knee were obtained. Comparison: Comparison is made to left femur radiographs 05/01/2022 FINDINGS: There is no evidence of an acute fracture. Mild degenerative changes are seen. Old healed fracture of the fibula is seen with bony bridging to the tibia. No joint effusion is seen. Vascular calcificatio ns are noted. IMPRESSION: Degenerative changes without evidence of acute injury. ACT 112: Negative or not required by law. Electronically signed by: Linwood Crews M.D. 10/13/2023 12:09 PM
[2023-10-13] MEDS: LIDOCAINE 5% 1 PATCH TD SCH (12:16)
--- NOTE | 2023-10-13 18:31 | Hospitalist Progress Note ---
Date of Service October 13, 2023 Assessment & Plan (1) Gastroenteritis: (2) Nausea vomiting and diarrhea: (3) Encephalopathy: Plan: (1) Ileus: Plan per Dr. Pacheco's notes with addendum: Mr. Kendall is a 68 year old gentleman with history of cognitive impairment/Klinefelter syndrome, cerebral palsy, DM2, COPD, PVD, TRINIDAD, GERD, chronic stasis dermatitis, hearing loss, osteoporosis, and valvular heart disease (mild MR/TR/Aortic Stenosis) who was admitted on 09/16 due to abdominal pain and diarrhea. Patient was found to have SBO v ileus and managed conservatively. No acute changes in management. Course prolonged due to placement issues and coordinating with [facility]. Patients course was complicated by episode of AMS after large BM and found to have a drop in sodium to 119. Nephrology consulted and felt at this time likely SIADH and urea initiated, with a notable improvement in hyponatremia. Patient to complete course of antibiotics 10/08. #Hypomagnesemia: Monitor and replete with current supplementation #Acute on Chronic hyponatremia*worsening initially, now improving -Thought to be SIADH picture per Nephrology -Trialed on lasix, no improvement, downtrended notably. discontinue diuretics -Nephrology consulted: continue Urea BID, encourage high protein diet, FR 1.5 L -Appreciate further recommendations--plan to hold above course with Urea BID -The following are the discharge recommendations from nephrology: -will need urea at d/c 15 gm bid, ensure this is continued and discussed with placement agency to ensure it is obtained -hold further lasix at d/c given relative hypotension -fluid limit 1.5 L daily -Encourage high-protein diet 3 meals. Patient should be allowed to salt his food. -d/c with current mag supplements -Plan for bmp and mag w/in week of hospital d/c at PCP f/u -hospital d/c appt any physician [facility] 2-4 wks after d/c with bmp, magnesium, urine osms, serum osms, rd urine sodium 3-5 days before appt to be ordered by RENAL nurse Na 136 #Acute toxic metabolic encephalopathy, likely 2/2 UTI *improved #Intellectual Disability, Klinefelters #Cerebral Palsy overnight 09/26-09/27; was bradycardic, low bp and SaO2 in 80s on 2L [place] O2. UA s/o uti, atb started, UCx w/ GNB; treat as follows Psychiatry consulted: neuropsych meds tapering, recommendations placed 09/28, taper reportedly possibly too fast per 09/30 recs, continue to monitor -Continuing Quetipine 100mg BID in order to not reduce taper and to monitor for any break through behaviors -Continue Gabapentin as ordered' -Continue Trileptal 300mg BID -Continue klonipin 0.5mg TID 10/13 stable #Viral Gastroenteritis *resolved #SBO versus ileus: Likely secondary to gastroenteritis Admitting CT abdomen/pelvis suggestive of ileus Repeat CT head scan of the abdomen pelvis did not show any intestinal obstruction. General surgery evaluated, managed conservatively C.Diff negative Continues to tolerate diet Will continue miralax daily to ensure BM 10/13 Still having soft stools Repeat C. difficile negative MiraLAX held As needed Imodium Monitor closely #Hypoglycemic episode followed by unresponsive episode 09/22/2023: Status post hypoglycemia protocol with improvement. Continue to monitor resolved #Diabetes mellitus type 2: Sliding scale insulin while in hospital. Resume home Trulicity, metformin and amaryl when discharged; glycemic consult following #Complicated UTI 2/2 Klebsiella: see above, zosyn 09/27. f/u Cx. zosyn to rocephin 09/28. EOT 10/08, transition to po upon discharge 10/13 completed 10 day course of IV Ceftri Other chronic medical conditions: Continue with/resume home meds as and when able. #Chronic diastolic heart failure (EF 60-65%, TTE 2022), stable -- BP on the lower side Lasix on hold Started gentle IV fluids--hold for now #Prior SVT/PAF not on anticoagulation due to fall risk, patient NSR, Continue Metoprolol #mild #PVD on Pentoxifylline #COPD: Not in acute exacerbation. #Elevated TSH iso of infection: Repeat in 4-6 weeks DVT prophylaxis. SCDs DNR Awaiting placement. Admission and Anticipated Discharge Date Admission Date: September 16, 2023 Subjective Follow-up for gastroenteritis, etc. Still having some soft stools per RN Patient seen resting in bed, not in distress Denies abdominal pain Reports left knee pain No other new symptoms Review of Systems Review of Systems: all noted and negative except for above Physical Exam Physical Exam: General-not in distress, speaks with no effort or accessory muscle use Eyes- anicteric Neck- no JVD Lungs- clear breath sounds bilaterally Heart- normal rate, regular rhythm; no murmurs Abdomen- normal bowel sounds, nondistended, soft, nontender Extremities- no pretibial edema, no calf tenderness Bilateral knees: No edema/warmth/tenderness Neuro- alert, no new gross focal neurologic deficits Skin- warm & dry Results & Data Results & Data Vital Signs (Past 12 Hours) Vital Signs Temp Pulse Pulse Resp BP BP Pulse Ox 10/13/23 16:25 36.8 C 57 L 16 108/64 96 10/13/23 11:59 36.4 C L 72 14 138/74 97 10/13/23 08:18 37.1 C 66 14 122/66 94 O2 Del Method 10/13/23 16:25 Room Air 10/13/23 11:59 Room Air 10/13/23 08:18 Room Air
[2023-10-13] MEDS: LANTUS PER UNIT CHARGE SQ SCH (20:50)
[2023-10-13] MEDS: SIMVASTATIN 40 MG TAB PO SCH (20:52)
[2023-10-14] MEDS: CARBOHYDRATES FOR HYPOGLYCEMIA PO PRN (04:15)
[2023-10-14] MEDS: INSULIN ASPART PER UNIT CHARGE SC SCH ×5 (04:31→21:00)
[2023-10-14] MEDS: DEXTROSE 50% 50 ML SYRINGE IV PRN (04:41)
[2023-10-14] MEDS: ALUMINUM/MAGNESIUM/SIMETH (MAALOX MAX) 30 ML UDC PO SCH ×4 (04:42→21:13)
[2023-10-14] MEDS: ARTIFICIAL TEARS OP SCH ×2 (08:51→21:01)
[2023-10-14] MEDS: UMECLIDINIUM BROMIDE 62.5MCG/BLISTER 7 PUFFS/INHALER INH SCH (08:52)
[2023-10-14] MEDS: UREA (UREA-NA) 15 GM PACK PO SCH ×2 (08:52→21:02)
[2023-10-14] MEDS: CLOTRIMAZOLE 1% CR 15 GM TUBE EXT SCH ×2 (08:52→21:02)
[2023-10-14] MEDS: OXcarbazepine 150 MG TABLET PO SCH ×2 (08:53→21:03)
[2023-10-14] MEDS: CEROVITE ADV FORMULA TAB PO SCH (08:53)
[2023-10-14] MEDS: GABAPENTIN 300 MG CAP PO SCH ×3 (08:53→21:03)
[2023-10-14] MEDS: SERTRALINE HCL 50 MG TABLET PO SCH (08:53)
[2023-10-14] MEDS: FINASTERIDE 5 MG TAB PO SCH (08:53)
[2023-10-14] MEDS: MAGNESIUM CHLORIDE W/CALCIUM 64MG DELAYED REL TAB PO SCH (08:53)
[2023-10-14] MEDS: MULTIVITAMIN TAB PO SCH (08:53)
[2023-10-14] MEDS: PANTOprazole 40 MG TAB PO SCH ×2 (08:53→21:01)
[2023-10-14] MEDS: TAMSULOSIN HCL 0.4 MG CAP PO SCH (08:53)
[2023-10-14] MEDS: ADVANCED PROBIOTIC 1250 MG CAPSULE PO SCH (08:54)
[2023-10-14] MEDS: QUEtiapine FUMARATE 100 MG TABLET PO SCH ×2 (08:54→21:02)
[2023-10-14] MEDS: LIDOCAINE 5% 1 PATCH TD SCH (08:54)
[2023-10-14] MEDS: POLYETHYLENE (MIRALAX) 17 GM PACK PO SCH (08:57)
[2023-10-14] MEDS: clonazePAM 0.5 MG TAB PO SCH ×3 (09:01→21:00)
[2023-10-14] MEDS: ACETAMINOPHEN 325 MG TAB PO PRN (10:11)
--- NOTE | 2023-10-14 13:24 | Pharmacy Report ---
Pharmacy Glycemic Short Note 2 - Date of Service October 14, 2023 - Glycemic Short BSG Results (Last 24 hours): 10/13/23 10/13/23 10/13/23 16:37 20:25 23:47 POC Glucose 87 79 111 H 10/14/23 10/14/23 10/14/23 04:08 04:31 05:01 POC Glucose 54 L* 49 L* 220 H 10/14/23 10/14/23 10/14/23 07:48 11:30 11:31 POC Glucose 212 H 68 L* 71 OUTPATIENT ANTIDIABETIC REGIMEN: * Metformin 1000mg BID * Glimepiride 1 mg PO daily * Trulicity 3mg SC Qwk HbA1c 7.5% (10/02/23) ASSESSMENT: 10/14: * BSGs labile w/ 2 instances of hypoglycemia over past 24 hours * Appears that carb ratio of 10 is too aggressive, loosen to 12 at breakfast, but another asymptomatic low at lunch today, so will loosen carb ratio further and set a maximum dose of 6 units/dose * Continue w/ current basal dose - if hypoglycemia continues, decrease tomorrow 10/13: * 22 units SQ insulin given over last 24 hours, while tolerating a diet * Fasting BSG at goal this AM; 6 units basal on board - however pt did receive correctional insulin last evening; continue same basal dose for now * Post-prandial BSGs at goal 2 of 3 yesterday. HS elevation likely due to lack of prandial coverage of late evening meal; continue the same CR/CF for now 10/10: * Patient received total of 13 units of insulin yesterday; 6 units basal + 7 units bolus. BSGs were [phone] mg/dl. * Fasting BSG today was 72 mg/dl. Basal insulin reduced further to 5 units at HS to prevent BSG from going lower in the AM. 10/08: * Isai received 19 units of insulin yesterday, 7 basal + 12 bolus. BSGs were: 614-726-198-89 mg/dL. * Fasting BSG was 139 mg/dL this AM. Will continue with current basal dose which was reduced on 10/06/23. * CF loosened yesterday but postprandials still trended down to below goal range throughout the day. Will loosen carb ratio this morning. PLAN FOR INPATIENT GLYCEMIC CONTROL: * Hold outpatient diabetes medications * Basal insulin * Lantus 6 units SC Q HS * Bolus insulin * NovoLog per scale ACHS or Q6hrs while NPO * Goal Range: Low 120 mg/dL - High 160 mg/dL * Correction Factor: 45 mg/dL/unit * Nutritional / Prandial insulin per carb ratio of 1 unit per 15 grams CHO consumed
--- NOTE | 2023-10-14 16:24 | Hospitalist Progress Note ---
Date of Service October 14, 2023 Assessment & Plan (1) Gastroenteritis: (2) Nausea vomiting and diarrhea: (3) Encephalopathy: Plan: (1) Ileus: Plan per Dr. Pacheco's notes with addendum: Mr. Kendall is a 68 year old gentleman with history of cognitive impairment/Klinefelter syndrome, cerebral palsy, DM2, COPD, PVD, TRINIDAD, GERD, chronic stasis dermatitis, hearing loss, osteoporosis, and valvular heart disease (mild MR/TR/Aortic Stenosis) who was admitted on 09/16 due to abdominal pain and diarrhea. Patient was found to have SBO v ileus and managed conservatively. No acute changes in management. Course prolonged due to placement issues and coordinating with [facility]. Patients course was complicated by episode of AMS after large BM and found to have a drop in sodium to 119. Nephrology consulted and felt at this time likely SIADH and urea initiated, with a notable improvement in hyponatremia. Patient to complete course of antibiotics 10/08. #Hypomagnesemia: Monitor and replete with current supplementation #Acute on Chronic hyponatremia*worsening initially, now improving -Thought to be SIADH picture per Nephrology -Trialed on lasix, no improvement, downtrended notably. discontinue diuretics Na 136 -The following are the discharge recommendations from nephrology: -will need urea at d/c 15 gm bid, ensure this is continued and discussed with placement agency to ensure it is obtained -hold further lasix at d/c given relative hypotension -fluid limit 1.5 L daily -Encourage high-protein diet 3 meals. Patient should be allowed to salt his food. -d/c with current mag supplements -Plan for bmp and mag w/in week of hospital d/c at PCP f/u -hospital d/c appt any physician [facility] 2-4 wks after d/c with bmp, magnesium, urine osms, serum osms, rd urine sodium 3-5 days before appt to be ordered by RENAL nurse #Acute toxic metabolic encephalopathy, likely 2/2 UTI *improved #Intellectual Disability, Klinefelters #Cerebral Palsy overnight 09/26-09/27; was bradycardic, low bp and SaO2 in 80s on 2L [place] O2. UA s/o uti, atb started, UCx w/ GNB; treat as follows Psychiatry consulted: neuropsych meds tapering, recommendations placed 09/28, taper reportedly possibly too fast per 09/30 recs, continue to monitor -Continuing Quetipine 100mg BID in order to not reduce taper and to monitor for any break through behaviors -Continue Gabapentin as ordered' -Continue Trileptal 300mg BID -Continue klonipin 0.5mg TID 10/14 stable #Viral Gastroenteritis *resolved #SBO versus ileus: Likely secondary to gastroenteritis Admitting CT abdomen/pelvis suggestive of ileus Repeat CT head scan of the abdomen pelvis did not show any intestinal obstruction. General surgery evaluated, managed conservatively C.Diff negative Continues to tolerate diet Will continue miralax daily to ensure BM 10/14 Still having soft stools Repeat C. difficile negative: negative MiraLAX held As needed Imodium Protonix increased to 40mg BID Monitor closely #Hypoglycemic episode followed by unresponsive episode 09/22/2023: Status post hypoglycemia protocol with improvement. Continue to monitor resolved #Diabetes mellitus type 2: Sliding scale insulin while in hospital. Resume home Trulicity, metformin and amaryl when discharged; glycemic consult following #Complicated UTI 2/2 Klebsiella: see above, zosyn 09/27. f/u Cx. zosyn to rocephin 09/28. EOT 10/08 10/13 completed 10 day course of IV Ceftri Other chronic medical conditions: Continue with/resume home meds as and when able. #Chronic diastolic heart failure (EF 60-65%, TTE 2022), stable -- BP on the lower side so Lasix was held -- BP seems to be improving resume Lasix is BP is consistently better, may only need 3x a week #Prior SVT/PAF not on anticoagulation due to fall risk, patient NSR, Continue Metoprolol #mild #PVD on Pentoxifylline #COPD: Not in acute exacerbation. #Elevated TSH iso of infection: Repeat in 4-6 weeks DVT prophylaxis. SCDs DNR Awaiting placement. Admission and Anticipated Discharge Date Admission Date: September 16, 2023 Subjective Follow-up for gastroenteritis, etc. Seen resting in bed, comfortable, not in distress Good spirits, smiling States he feels fine overall No new complaints Review of Systems Review of Systems: all noted and negative except for above Physical Exam Physical Exam: General- alert, not in distress, speaking with no effort or accessory muscle use Eyes- anicteric Neck- no JVD Lungs- clear breath sounds bilaterally Heart- normal rate, regular rhythm; no murmurs Abdomen- normal bowel sounds, nondistended, soft, nontender Extremities- no pretibial edema, no calf tenderness Neuro- alert, oriented; no new gross focal neurologic deficits Skin- warm & dry Results & Data Results & Data Vital Signs (Past 12 Hours) Vital Signs Temp Pulse Resp BP BP Pulse Ox O2 Del Method 10/14/23 16:18 36.8 C 53 L 18 154/76 H 95 Room Air 10/14/23 07:06 36.7 C 51 L 16 120/63 96 Room Air all noted and reviewed including below
[2023-10-14] MEDS: LANTUS PER UNIT CHARGE SQ SCH (21:00)
[2023-10-14] MEDS: LOPERAMIDE HCL 2 MG CAP PO PRN (21:00)
[2023-10-14] MEDS: SIMVASTATIN 40 MG TAB PO SCH (21:02)
[2023-10-14] MEDS: ALUMINUM/MAGNESIUM SUSP 30 ML UDC PO PRN (21:05)
[2023-10-15] MEDS: ALUMINUM/MAGNESIUM/SIMETH (MAALOX MAX) 30 ML UDC PO SCH ×4 (04:28→20:57)
[2023-10-15] MEDS: CLOTRIMAZOLE 1% CR 15 GM TUBE EXT SCH ×2 (08:42→20:57)
[2023-10-15] MEDS: ARTIFICIAL TEARS OP SCH ×2 (08:42→20:56)
[2023-10-15] MEDS: OXcarbazepine 150 MG TABLET PO SCH ×2 (08:43→21:29)
[2023-10-15] MEDS: UMECLIDINIUM BROMIDE 62.5MCG/BLISTER 7 PUFFS/INHALER INH SCH (08:43)
[2023-10-15] MEDS: LIDOCAINE 5% 1 PATCH TD SCH (08:43)
[2023-10-15] MEDS: UREA (UREA-NA) 15 GM PACK PO SCH ×2 (08:43→20:58)
[2023-10-15] MEDS: QUEtiapine FUMARATE 100 MG TABLET PO SCH ×2 (08:44→20:58)
[2023-10-15] MEDS: CEROVITE ADV FORMULA TAB PO SCH (08:44)
[2023-10-15] MEDS: MULTIVITAMIN TAB PO SCH (08:44)
[2023-10-15] MEDS: ADVANCED PROBIOTIC 1250 MG CAPSULE PO SCH (08:44)
[2023-10-15] MEDS: TAMSULOSIN HCL 0.4 MG CAP PO SCH (08:44)
[2023-10-15] MEDS: GABAPENTIN 300 MG CAP PO SCH ×3 (08:44→20:58)
[2023-10-15] MEDS: PANTOprazole 40 MG TAB PO SCH ×2 (08:44→20:58)
[2023-10-15] MEDS: FINASTERIDE 5 MG TAB PO SCH (08:44)
[2023-10-15] MEDS: MAGNESIUM CHLORIDE W/CALCIUM 64MG DELAYED REL TAB PO SCH (08:44)
[2023-10-15] MEDS: SERTRALINE HCL 50 MG TABLET PO SCH (08:44)
[2023-10-15] MEDS: POLYETHYLENE (MIRALAX) 17 GM PACK PO SCH (08:45)
[2023-10-15] MEDS: INSULIN ASPART PER UNIT CHARGE SC SCH ×4 (08:55→21:10)
[2023-10-15] MEDS: clonazePAM 0.5 MG TAB PO SCH ×3 (08:56→20:56)
--- NOTE | 2023-10-15 13:29 | Hospitalist Progress Note ---
Date of Service October 15, 2023 Assessment & Plan (1) Gastroenteritis: (2) Nausea vomiting and diarrhea: (3) Encephalopathy: Plan: (1) Ileus: Mr. Kendall is a 68 year old gentleman with history of cognitive impairment/Klinefelter syndrome, cerebral palsy, DM2, COPD, PVD, TRINIDAD, GERD, chronic stasis dermatitis, hearing loss, osteoporosis, and valvular heart disease (mild MR/TR/Aortic Stenosis) who was admitted on 09/16 due to abdominal pain and diarrhea. Patient was found to have SBO v ileus. This was managed conservatively and resolved Patients course was complicated by episode of AMS after large BM and found to have a drop in sodium to 119. Nephrology consulted and felt at this time likely SIADH and urea initiated, with a notable improvement in hyponatremia. No acute changes in management. Course prolonged due to placement issues and coordinating with [facility]. 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 Na downtrended notably and diuretics discontinued Check BMP, Mg, Phos in AM -The following are the discharge recommendations from nephrology: -will need urea at d/c 15 gm bid, ensure this is continued and discussed with placement agency to ensure it is obtained -hold further lasix at d/c given relative hypotension -fluid limit 1.5 L daily -Encourage high-protein diet 3 meals. Patient should be allowed to salt his food. -d/c with current mag supplements -Plan for bmp and mag w/in week of hospital d/c at PCP f/u -hospital d/c appt any physician [facility] 2-4 wks after d/c with bmp, magnesium, urine osms, serum osms, rd urine sodium 3-5 days before appt to be ordered by RENAL nurse #Acute toxic metabolic encephalopathy, likely 2/2 UTI *improved #Intellectual Disability, Klinefelters #Cerebral Palsy Overnight 09/26/23-09/27/23; was bradycardic, low bp and SaO2 in 80s on 2L [place] O2. UA was suggestive of uti, UCx grew Klebsiella pneumo Patient completed antibiotics Psychiatry consulted: neuropsych meds tapering, recommendations placed 09/28, taper reportedly possibly too fast per 09/30 recs, continue to monitor -Continuing Quetipine 100mg BID in order to not reduce taper and to monitor for any break through behaviors -Continue Gabapentin as ordered' -Continue Trileptal 300mg BID -Continue klonipin 0.5mg TID #Viral Gastroenteritis *resolved #SBO versus ileus: Likely secondary to gastroenteritis Admitting CT abdomen/pelvis suggestive of ileus Repeat CT head scan of the abdomen pelvis did not show any intestinal obstruction. General surgery evaluated This was managed conservatively C.Diff negative Continues to tolerate diet RN reports stools were loose yesterday Repeat C diff was negative Miralax changed to prn from scheduled As needed Imodium #Hypoglycemic episode followed by unresponsive episode 09/22/2023: Status post hypoglycemia protocol with improvement. Continue to monitor #Diabetes mellitus type 2: Sliding scale insulin while in hospital. Will resume home Trulicity, metformin and amaryl when discharged Large swings on blood glucose Glycemic pharm on board #Complicated UTI 2/2 Klebsiella: Completed antibiotics on 10/08/23 Other chronic medical conditions: Continue with/resume home meds as and when able. #Chronic diastolic heart failure (EF 60-65%, TTE 2022), stable Lasix on hold for now #Prior SVT/PAF not on anticoagulation due to fall risk, patient NSR, Continue Metoprolol #mild #PVD on Pentoxifylline #COPD: Not in acute exacerbation. #Elevated TSH iso of infection: Repeat in 4-6 weeks DVT prophylaxis. SCDs DNR Awaiting placement. I spent a total of 45 minutes coordinating, documenting and providing care for this patient excluding time spent in performance of separately billed services Admission and Anticipated Discharge Date Admission Date: September 16, 2023 Subjective Patient seen and examined No concerns from patient and RN He follows commands and communicates though sometimes its tough to make out what he says Physical Exam Constitutional: + well hydrated; no acute distress Eyes: PERRL, conjunctivae normal, anicteric sclerae ENMT: external ear and nose normal, oropharynx normal Respiratory: normal respiratory effort, lungs clear to auscultation Cardiovascular: Rate/Rhythm: regular rate and regular rhythm S1 S2 Gastrointestinal (Abdomen): normal bowel sounds, soft, nontender, no hepatosplenomegaly Musculoskeletal: No pedal edema Psychiatric: Alert, oriented, follows simple commands, no new focal deficits Results & Data Results & Data Vital Signs (Past 12 Hours) Vital Signs Temp Pulse Resp BP Pulse Ox O2 Del Method 10/15/23 07:43 36.4 C L 51 L 18 128/71 94 Room Air Laboratory Results Abnormal lab results 10/14/23 10/14/23 10/15/23 Range/Units 17:04 20:34 04:12 POC Glucose 201 H 181 H 224 H (70-99) mg/dl 10/15/23 Range/Units 07:32 POC Glucose 164 H (70-99) mg/dl
--- NOTE | 2023-10-15 14:49 | Pharmacy Report ---
Pharmacy Glycemic Short Note 2 - Date of Service October 15, 2023 - Glycemic Short BSG Results (Last 24 hours): 10/14/23 10/14/23 10/15/23 17:04 20:34 04:12 POC Glucose 201 H 181 H 224 H 10/15/23 10/15/23 07:32 11:38 POC Glucose 164 H 84 OUTPATIENT ANTIDIABETIC REGIMEN: * Metformin 1000mg BID * Glimepiride 1 mg PO daily * Trulicity 3mg SC Qwk HbA1c 7.5% (10/02/23) ASSESSMENT: 10/15 * Isai received 18 units of insulin yesterday (6 were basal) * BSGs continue to fluctuate, fasting BSG slightly elevated this AM. Will trend as 7 units HS appears to be too much * Will increase patient's goal range to help prevent hypoglycemia * Loosened correction factor further 10/14: * BSGs labile w/ 2 instances of hypoglycemia over past 24 hours * Appears that carb ratio of 10 is too aggressive, loosen to 12 at breakfast, but another asymptomatic low at lunch today, so will loosen carb ratio further and set a maximum dose of 6 units/dose * Continue w/ current basal dose - if hypoglycemia continues, decrease tomorrow 10/13: * 22 units SQ insulin given over last 24 hours, while tolerating a diet * Fasting BSG at goal this AM; 6 units basal on board - however pt did receive correctional insulin last evening; continue same basal dose for now * Post-prandial BSGs at goal 2 of 3 yesterday. HS elevation likely due to lack of prandial coverage of late evening meal; continue the same CR/CF for now 10/10: * Patient received total of 13 units of insulin yesterday; 6 units basal + 7 units bolus. BSGs were [phone] mg/dl. * Fasting BSG today was 72 mg/dl. Basal insulin reduced further to 5 units at HS to prevent BSG from going lower in the AM. 10/08: * Isai received 19 units of insulin yesterday, 7 basal + 12 bolus. BSGs were: 831-220-955-89 mg/dL. * Fasting BSG was 139 mg/dL this AM. Will continue with current basal dose which was reduced on 10/06/23. * CF loosened yesterday but postprandials still trended down to below goal range throughout the day. Will loosen carb ratio this morning. PLAN FOR INPATIENT GLYCEMIC CONTROL: * Hold outpatient diabetes medications * Basal insulin * Lantus 6 units SC Q HS * Bolus insulin * NovoLog per scale ACHS or Q6hrs while NPO * Goal Range: Low 140 mg/dL - High 180 mg/dL * Correction Factor: 65 mg/dL/unit * Nutritional / Prandial insulin per carb ratio of 1 unit per 15 grams CHO consumed
[2023-10-15] MEDS ORDERED: POLYETHYLENE (MIRALAX) 17 GM PACK PO PRN (15:14)
[2023-10-15] MEDS: ALUMINUM/MAGNESIUM SUSP 30 ML UDC PO PRN (20:55)
[2023-10-15] MEDS: LANTUS PER UNIT CHARGE SQ SCH (20:56)
[2023-10-15] MEDS: ACETAMINOPHEN 325 MG TAB PO PRN (20:56)
[2023-10-15] MEDS: LOPERAMIDE HCL 2 MG CAP PO PRN (20:56)
[2023-10-15] MEDS: SIMVASTATIN 40 MG TAB PO SCH (20:58)
[2023-10-16] MEDS ORDERED: CARBOHYDRATES FOR HYPOGLYCEMIA PO PRN (04:59)
[2023-10-16] MEDS ORDERED: GLUCOSE 10 TAB/TUBE PO PRN (04:59)
[2023-10-16] MEDS ORDERED: GLUCOSE 40% GEL 15 GM TUBE PO PRN (04:59)
[2023-10-16] MEDS ORDERED: GLUCAGON FOR INJ 1 MG VIAL SQ PRN (04:59)
[2023-10-16] MEDS ORDERED: DEXTROSE 50% 50 ML SYRINGE IV PRN (04:59)
[2023-10-16] MEDS: ALUMINUM/MAGNESIUM/SIMETH (MAALOX MAX) 30 ML UDC PO SCH ×2 (05:40→13:58)
[2023-10-16 07:36] LABS: Hematocrit (blood only) 33.9 % (42.0-52.0); Hemoglobin 10.8 g/dl (14.0-18.0); Mean Corpuscular Hemoglobin 32.2 pg (25.0-34.0); Mean Corpuscular Hgb Conc 31.9 g/dL (32.0-36.0); Mean Corpuscular Volume 101.2 fL (80.0-100.0); Mean Platelet Volume 10.2 fL (9.4-12.4); Platelet Count 153 K/uL (130-400); RDW Coefficient of Variation 12.9 % (11.5-14.5); RDW Standard Deviation 48.5 fL (36.4-46.3); Red Blood Count 3.35 M/uL (4.70-6.10); White Blood Count 3.77 K/ul (4.8-10.8)
[2023-10-16 07:58] LABS: Calcium 9.3 mg/dl (8.6-10.3); Creatinine Clr Calc Pharmacy 100.4 ml/min; Est GFR (African American) 117.3 ml/min; Est GFR (Non-African American) 101.2 ml/min; Magnesium 1.8 mg/dl (1.7-2.4); Phosphorus 3.5 mg/dl (2.5-4.9); Potassium 4.4 mmol/L (3.5-5.1)
[2023-10-16] MEDS: QUEtiapine FUMARATE 100 MG TABLET PO SCH (08:21)
[2023-10-16] MEDS: UREA (UREA-NA) 15 GM PACK PO SCH (08:21)
[2023-10-16] MEDS: PANTOprazole 40 MG TAB PO SCH (08:21)
[2023-10-16] MEDS: LIDOCAINE 5% 1 PATCH TD SCH (08:22)
[2023-10-16] MEDS: CEROVITE ADV FORMULA TAB PO SCH (08:22)
[2023-10-16] MEDS: ADVANCED PROBIOTIC 1250 MG CAPSULE PO SCH (08:22)
[2023-10-16] MEDS: MAGNESIUM CHLORIDE W/CALCIUM 64MG DELAYED REL TAB PO SCH (08:22)
[2023-10-16] MEDS: CLOTRIMAZOLE 1% CR 15 GM TUBE EXT SCH (08:24)
[2023-10-16] MEDS: INSULIN ASPART PER UNIT CHARGE SC SCH ×2 (08:27→12:06)
[2023-10-16] MEDS ORDERED: GLIMEPIRIDE 2 MG TAB PO SCH (12:00)
--- NOTE | 2023-10-16 13:50 | Discharge Summary ---
Date of Service October 16, 2023 Admission HPI Per Admitting Provider History obtained from patient, caregiver, and records. Limited history from patient secondary to intellectual impairment. Medical history significant for chronic diastolic heart failure (EF 60-65%, TTE 2022), PAF not on anticoagulation due to fall risk, PSVT, mild , PVD on pentoxifylline, hypertension, hyperlipidemia, COPD, TRINIDAD, DM 2 on oral medications, hyperprolactinemia, cerebral palsy, chronic anemia (baseline hemoglobin of 10), chronic thrombocytopenia, mood disorder, Klinefelter syndrome, intellectual disability, past tobacco abuse. Last confinement January 2023 for gastroenteritis and Enterococcus UTI status post amoxicillin Rx. Patient had sudden onset of abdominal pain going to the chest with diarrhea symptoms yesterday. No bleeding. Patient felt short of breath. Denies cough symptoms or headache symptoms. Patient brought to the ER for evaluation by caregiver. Medical History as above Surgical History : Cataract surgeries, IVC filter placement, cholecystectomy, kidney stone procedures Family History : Heart disease Personal/Social history : Past tobacco abuse, no EtOH intake, skilled nursing resident Admission Exam Per Admitting Provider GENERAL: uncomfortable, no respiratory distress SKIN: Normal color, warm HEENT: Elfrida palpebral conjunctivae, no ptosis, dry buccal mucosa NECK : Supple, no tenderness CHEST : Decreased breath sounds, no tenderness HEART : RRR, systolic murmur ABDOMEN: Some distention, central abdominal tenderness EXTREMITIES : No LE swelling/tenderness, no other conspicuous deformities noted NEUROLOGIC : Coherent, no facial asymmetry, no other gross focality Principal Diagnosis Ileus Gastroenteritis Hypomagnesemia Hyponatremia Encephalopathy Discharge Exam Constitutional + well hydrated; no acute distress Eyes PERRL, conjunctivae normal, anicteric sclerae ENMT external ear and nose normal, oropharynx normal Respiratory normal respiratory effort, lungs clear to auscultation Cardiovascular Rate/Rhythm: regular rhythm and + bradycardic S1 S2 Gastrointestinal (Abdomen) normal bowel sounds, soft, nontender, no hepatosplenomegaly Musculoskeletal No pedal edema Neurologic Alert, oriented, follows simple commands, no new focal deficits Difficult to make out some of his words Discharge Data Allergies Allergy/AdvReac Type Severity Reaction Status Date / Time lactose Allergy Intermediate GI SYMPTOMS Verified 09/16/23 03:01 aspirin Allergy Unknown UNKNOWN Verified 09/16/23 03:01 REACTION cephalexin Allergy Unknown UNKNOWN Verified 09/16/23 03:01 REACTION Cephalosporins Allergy Unknown UNKNOWN Verified 09/16/23 03:01 REACTION Corticosteroids Allergy Unknown UNKNOWN Verified 09/16/23 03:01 (Glucocorticoids) REACTION methylprednisolone Allergy Unknown UNKNOWN Verified 09/16/23 03:01 REACTION shellfish derived Allergy Unknown UNKNOWN Verified 09/16/23 03:01 REACTION Consultations 09/16/23 02:00 Consult General Surgery Routine 09/16/23 02:11 ED Decision to Admit Stat 09/27/23 15:57 Consult Psychiatry Routine Ordered Studies 09/15/23 22:29 CT abd pelvis wo con Stat 09/22/23 18:38 CT abd pelvis wo con Urgent Hospital Course (1) Gastroenteritis: (2) Nausea vomiting and diarrhea: (3) Encephalopathy: (1) Ileus: Mr. Kendall is a 68 year old gentleman with history of cognitive impairment/Klinefelter syndrome, cerebral palsy, DM2, COPD, PVD, TRINIDAD, GERD, chronic stasis dermatitis, hearing loss, osteoporosis, and valvular heart disease (mild MR/TR/Aortic Stenosis) who was admitted on 09/16 due to abdominal pain and diarrhea. Patient was found to have SBO v ileus. This was managed conservatively and resolved Patients course was complicated by episode of AMS after large BM and found to have a drop in sodium to 119. Nephrology consulted and felt at this time likely SIADH and urea initiated, with a notable improvement in hyponatremia. No acute changes in management. Course prolonged due to placement issues and coordinating with [facility]. 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 Na downtrended notably and diuretics discontinued -The following are the discharge recommendations from nephrology: -will need urea at d/c 15 gm bid, ensure this is continued and discussed with placement agency to ensure it is obtained -hold further lasix at d/c given relative hypotension -fluid limit 1.5 L daily -Encourage high-protein diet 3 meals. Patient should be allowed to salt his food. -d/c with current mag supplements -Plan for bmp and mag w/in week of hospital d/c at PCP f/u -hospital d/c appt any physician [place] 2-4 wks after d/c with bmp, magnesium, urine osms, serum osms, rd urine sodium 3-5 days before appt to be ordered by RENAL nurse #Acute toxic metabolic encephalopathy, likely 2/2 UTI *improved #Intellectual Disability, Arvin #Cerebral Palsy Overnight 09/26/23-09/27/23; He was bradycardic, low bp and SaO2 in 80s on 2L NC O2. UA was suggestive of uti, UCx grew Klebsiella pneumo Patient completed antibiotics Psychiatry was consulted They initially considered tapering some meds. The following are final recommendations/current meds, -Continuing Quetiapine 100mg BID in order to not reduce taper and to monitor for any break through behaviors -Continue Gabapentin 300mg TID -Continue Trileptal 300mg BID -Continue klonipin 0.5mg TID #Viral Gastroenteritis *resolved #SBO versus ileus: Likely secondary to gastroenteritis Admitting CT abdomen/pelvis suggestive of ileus Repeat CT head scan of the abdomen pelvis did not show any intestinal obstruction. General surgery evaluated This was managed conservatively C.Diff negative Continues to tolerate diet #Hypoglycemic episode followed by unresponsive episode 09/22/2023: Status post hypoglycemia protocol with improvement. #Diabetes mellitus type 2: Sliding scale insulin while in hospital. Resumed home Trulicity, metformin and amaryl on discharge Monitor blood glucose and adjust meds as needed #Complicated UTI 2/2 Klebsiella: Completed antibiotics on 10/08/23 #Chronic diastolic heart failure (EF 60-65%, TTE 2022), stable Lasix stopped as above #Prior SVT/PAF not on anticoagulation due to fall risk. Metoprolol stopped due to bradycardia #mild #PVD on Pentoxifylline #COPD: Not in acute exacerbation. #Elevated TSH iso of infection: Repeat in 4-6 weeks Total Time Total Time Spent Total Time Spent (In Minutes): 40 Total Time Includes: Examination of the Patient, Discharge Planning and Medication Reconciliation Discharge Plan Discharge Items Patient Disposition: [facility] Reason For Visit: Abdominal pain Discharge Diagnosis: Ileus Gastroenteritis Hypomagnesemia Hyponatremia Encephalopathy Activity: Resume your previous activity Non-emergency contact: Primary Care Provider Call non-emergency contact if: you have any medication questions Follow-up/Referrals: Andrew Montague MD [Primary Care Provider] - Diet: Carb Consistent or DM2 Fluids: 1500ml (6 cups) Diet Comment: Minced and Moist Addtl Attending Provider Instructions: Mr Kendall was brought to the hospital due to abdominal pain. He had a prolonged hospital stay and the above listed diagnoses were managed. He is being [facility]. Please refer to medication list for medication adjustments and changes Please ensure follow up with Nephrology in 2-4 weeks. Please PCP needs to follow up BMP, magnesium, Urine and serum osmole and urine sodium in 3-5 days. Please continue urea. Pending Studies at Discharge: No Stand-Alone Forms: My [facility] Skilled Items Patient informed of condition?: Yes DNR: Yes Discharge Level of Care: Skilled Communicable Disease: No Discharge Prognosis: Stable Lines: None Urinary Catheter: No Medications and DC Order Prescriptions: New Ure-Na 15 gram Powder In Packet 15 g PO BID Qty: 60 0RF Mag 64 64 mg Tablet,Delayed Release (Dr/Ec) 64 mg PO QAM Qty: 30 0RF Continued Neosporin ([id number]) 3.5-400-5,000 [id number] Ointment In Packet 1 applic TOPICAL DIRECTED multivitamin Tablet 1 tab PO DAILY Qty: 30 0RF acetaminophen [Tylenol] 325 mg Tablet 650 mg PO Q4 PRN (Reason: fever or pain) Qty: 50 0RF loperamide [Imodium A-D] 2 mg Capsule 2 mg PO TID PRN (Reason: Diarrhea) Qty: 10 0RF Rx Instructions: administer after each loose stool until symptoms controlled; do not exceed 8 mg per 24 hrs polyethylene glycol 3350 [Miralax] 17 gram Powder In Packet 17 g PO DIRECTED PRN (Reason: Constipation) Qty: 10 0RF Rx Instructions: give Q 72HRS PRN clonazepam 0.5 mg tablet 0.5 mg PO TID Qty: 90 0RF Rx Instructions: 0800, 1600, 2000 oxcarbazepine 300 mg tablet 300 mg PO BID Qty: 60 0RF guaifenesin 100 mg/5 mL Liquid 200 mg PO TID PRN (Reason: Cough) Qty: 1000 0RF pentoxifylline 400 mg tablet extended release 400 mg PO TID Qty: 90 0RF simvastatin 40 mg tablet 40 mg PO QPM Qty: 30 0RF glimepiride 1 mg tablet 1 mg PO DAILY Qty: 30 0RF tamsulosin 0.4 mg capsule 0.4 mg PO DAILY Qty: 30 0RF carboxymethylcellulose sodium [Refresh Tears] 0.5 % Drops 1 drp OPB BID Qty: 15 0RF metformin 1,000 mg tablet 1,000 mg PO BID Qty: 60 0RF gabapentin 300 mg capsule 300 mg PO TID Qty: 90 0RF bismuth subsalicylate [Pepto-Bismol] 262 mg Tablet,Chewable 1 tab PO Q12 PRN (Reason: .UPSET STOMACH) Qty: 10 0RF albuterol sulfate 90 mcg/actuation Hfa Aerosol Inhaler 2 puff INHALATION Q4 PRN (Reason: Shortness Of Breath Or Wheezing) Qty: 6.7 0RF sertraline 50 mg tablet 50 mg PO DAILY Qty: 30 0RF finasteride 5 mg Tablet 5 mg PO QAM Qty: 30 0RF cholecalciferol (vitamin D3) [Vitamin D3] 25 mcg (1,000 unit) Capsule 25 mcg PO QAM Qty: 30 0RF food supplemt, lactose-reduced Liquid 1 ea PO BID Qty: 1184 0RF Culturelle 15 billion cell Capsule, Sprinkle 2 cap PO DAILY Qty: 30 0RF Incruse Ellipta 62.5 mcg/actuation blister with device 1 inh INHALATION DAILY Qty: 30 0RF Trulicity 3 mg/0.5 mL pen injector 3 mg SUBCUT .WEEKLY Qty: 2 0RF Rx Instructions: wed Changed trazodone 50 mg tablet 50 mg PO HS PRN (Reason: agitation) Qty: 30 0RF quetiapine 100 mg tablet 100 mg PO BID Qty: 60 0RF Discontinued diphenhydramine HCl [Benadryl Allergy] 12.5 mg Tablet,Chewable 12.5 mg PO BID PRN (Reason: Itching) acetaminophen [Tylenol Arthritis] 650 mg Tablet Extended Release 1,300 mg PO [facility] Rx Instructions: AM & BEFORE HS furosemide 20 mg tablet 20 mg PO DAILY loratadine 10 mg Tablet 10 mg PO DAILY metoprolol tartrate 25 mg tablet 12.5 mg PO BID guaifenesin [Mucinex] 600 mg Tablet Extended Release 12hr 600 mg PO Q12H magnesium oxide 400 mg magnesium Tablet 400 mg PO BID Discharge Orders: Discharge Order (Routine); Ordered 10/16/23 Ordered By: Galilea Parham Admission Data Admit Date/Time: 09/16/23 02:54 Attending Provider: Galilea Parham I. Admit Provider: Jose Daniel Cohen Primary Care Provider: Andrew Montague Other Providers: Elda Arreola; [facility]; Cindy Priest; Luis Doty; Jose Daniel Cohen; Anaid Flores; Erin Fox; Aditya Mcnair; Favian Sethi; Joe Lopez; Asiya Lyman Other Interventions: Discharge Summary Assessment (RN) Last Done: 10/16/23 14:39
[2023-10-16] MEDS: ALUMINUM/MAGNESIUM SUSP 30 ML UDC PO PRN (13:52)
[2023-10-16] MEDS ORDERED: clonazePAM 0.5 MG TAB PO SCH (16:00)
[2023-10-16] MEDS ORDERED: metFORMIN HCL 500 MG TAB PO SCH (17:00)
[2023-10-16] MEDS ORDERED: QUEtiapine FUMARATE 100 MG TABLET PO SCH (21:00)
[2023-10-16] MEDS ORDERED: OXcarbazepine 150 MG TABLET PO SCH (21:00)
[2023-10-17] MEDS ORDERED: SERTRALINE HCL 50 MG TABLET PO SCH (09:00)
== END 2023-10-16 15:03 | DRG 391 ==
LOC: ED 21:42 → EDINP 09-16 02:54 → SUATTDRO 09-16 02:54 → 2N 09-16 17:20 → 3N 10-12 17:45

== ENCOUNTER 2023-11-18 12:29 | Inpatient (IN) ==
--- NOTE | 2023-11-18 12:40 | Emergency Department Note ---
Impression & Plan Acute hypernatremia ADMIT ED Provider Note HPI: History obtained from bedside RN via EMS report. The patient is a 68-year-old gentleman with history of cerebral palsy, bedbound, history of paroxysmal atrial fibrillation, presents emergency department with a chief complaint of fever and lethargy from the nursing facility. On arrival here to the ED the patient is a stable blood pressure at 115 systolic however he has noted to be in atrial fibrillation with RVR on the monitor with heart rate in the 130s. Patient is alert to verbal stimuli and is able to open his eyes when he say his name. Patient has oxygen saturation to 90% on my initial assessment was placed on 2 L nasal cannula oxygen with good improvement. ROS: - Per HPI Differential Diagnosis: Sepsis, urinary tract infection, hypotension secondary to arrhythmia, dehydration/acute kidney injury, amongst other potential pathologies. *Outpatient medications and allergy history reviewed. PE: General: Alert to verbal stimuli, frail-appearing HEENT: Normocephalic, trachea midline Eyes: Extraocular eye movement is intact, no scleral erythema Pulmonary: Clear to auscultation bilaterally, no wheezing Cardio: Tachycardic rate with irregular rhythm GI: Abdomen is soft to palpation : No suprapubic tenderness, Blue catheter in place MSK: No evidence of trauma or malformation of the extremities, no edema Skin: No evidence of rash Neuro: Alert to verbal stimuli, baseline contractures with history of cerebral palsy Psychiatric: Not applicable INDEPENDENT INTERPRETATIONS: groundwater monitoring technician: (As interpreted by myself): - An order was placed for continuous cardiac monitoring - Patient was noted to be in atrial fibrillation with a rate of 135 EKG: (As interpreted by myself): Rate: 143 Rhythm: Atrial fibrillation with RVR Intervals: Within normal limits ST changes: No ST elevation Time: 1235 Chest x-ray: (As interpreted by myself): No focal infiltrate Interventions provided in ED: -IV fluid bolus, IV Zosyn, IV insulin Medical Decision Making: IV was established and lab work obtained, patient was maintained on groundwater monitoring technician shortly after arrival. Lab work shows no leukocytosis, hemoglobin is stable at 12.6, platelet count is normal. Venous blood gas shows a pH of 7.22 without any evidence of hypercarbic respiratory failure, bicarbonate on VBG is measured at 21. CMP shows elevated sodium level at 158, potassium is normal, chloride is also elevated at 118, suspect an element of dehydration. Serum bicarbonate level on CMP is measured at 23, patient does not appear to be in DKA. Glucose is elevated at 523 and therefore patient was given IV fluids and a dose of IV insulin bolus. Lactic acid is noted to be within normal limits, initial troponin obtained is elevated at 57.7, EKG per my interpretation shows atrial fibrillation with RVR without any evidence of ST elevation. Low suspicion for ACS. I suspect that the elevated troponin level is likely related to demand ischemia given atrial fibrillation with RVR. procalcitonin is low. Urine is questionable for infection, there is 3+ glucose, 2+ ketones, 3+ blood, urine nitrite is negative but leukocyte esterase is 2+ and there is pyuria. Will treat with Zosyn and send for culture. Blue catheter was replaced here in the ED. Patient's anion gap is likely elevated secondary to uremia as BUN is elevated at 76. Lactic acid is normal. Patient serum bicarbonate level is normal therefore low suspicion for DKA. Patient's tachycardia downtrended with IV fluids. Blood pressure remained soft in the 90s systolic but patient remains alert. He remained stable on 2 L nasal cannula oxygen. Chest x-ray per my interpretation does not show any evidence of pneumonia. I discussed the case with the on-call admitting midlevel provider for the [facility] hospitalist service, Xiomara Lynn PA-C, and the patient was placed for admission in improved condition. Consultants/Discussions held with other healthcare providers: -Xiomara Lynn PA-C, Hospitalist Service Diagnosis: 1. Hypernatremia, acute 2. Atrial fibrillation with RVR, acute 3. Hyperchloremia, acute 4. Urinary tract infection, acute 5. Elevated high-sensitivity troponin level 6. Hyperglycemia, acute 7. Uremia, acute 8. History of cerebral palsy Disposition: Admission Aditya Andujar DO Emergency Medicine Past Med/Surg History Medical History Severe sepsis Pica Asthma Aortic stenosis Mild per 09/2021 ECHO [place] (obstructive sleep apnea) Per records Peroneal palsy DJD (degenerative joint disease) Neuropathy TMJ (temporomandibular joint disorder) Venous insufficiency History of COVID-19 Tested positive 09/21/21 [facility] ([facility] Sinus congestion only. no hospitalization. No current problems. Hyperlipidemia Depression Anxiety Osteoporosis Scoliosis GERD (gastroesophageal reflux disease) Diabetes mellitus, type 2 Chronic obstructive pulmonary disease Well controlled > hasnt used res inh for 2 yrs Cerebral palsy Neck pain Hypotension Elevated troponin Hyperglycemia Presence of IVC filter Placed in 1997 per records [place] (obstructive sleep apnea) PVD (peripheral vascular disease) Diabetes mellitus, type II GERD (gastroesophageal reflux disease) COPD (chronic obstructive pulmonary disease) Intellectual disability Lives at [facility] Tibia fracture Pneumonia Hospital-acquired pneumonia Femoral condyle fracture CAP (community acquired pneumonia) Surgical History S/P cataract surgery Left and Right History of colonoscopy History of tooth extraction History of cholecystectomy Family History Father Coronary heart disease Social History Smoking Status: Never smoker packs per day: 30; Second Hand Exposure: No; Do You Dip or Chew Tobacco: No; Hx Alcohol Use: No Hx Substance Use: No Preferred Language: Macedonian Communication Ability: Unable Communication Ability Comment: MR LIVES AT [facility] Communication Tools: Other Visual Impairment: No Limitations Hearing Ability: Use of Hearing Aid Brass Buffer Required: No Beliefs That Will Affect Care: None marital status: Single marital status details: [facility] Current Living Situation: Personal Care Facility Current Living Situation Comment: skilled nursing current occupational status: disabled How many Children do You have: 0 Feels Safe at Home: Yes Diet: diabetic caffeine: No Assistive Devices: Mechanical Lift and Wheelchair Allergies Allergies Allergy/AdvReac Type Severity Reaction Status Date / Time lactose Allergy Intermediate GI SYMPTOMS Verified 11/18/23 16:19 aspirin Allergy Unknown UNKNOWN Verified 11/18/23 16:19 REACTION cephalexin Allergy Unknown UNKNOWN Verified 11/18/23 16:19 REACTION Cephalosporins Allergy Unknown UNKNOWN Verified 11/18/23 16:19 REACTION Corticosteroids Allergy Unknown UNKNOWN Verified 11/18/23 16:19 (Glucocorticoids) REACTION methylprednisolone Allergy Unknown UNKNOWN Verified 11/18/23 16:19 REACTION shellfish derived Allergy Unknown UNKNOWN Verified 11/18/23 16:19 REACTION Home Meds Home Medications Medication Instructions Recorded Confirmed Frozen Nutritional Treat 1 cp PO QPM 11/18/23 11/18/23 Saccharomyces boulardii 250 mg 250 mg PO QAM 11/18/23 11/18/23 capsule (Florastor) acetaminophen 325 mg tablet 650 mg PO Q6H PRN fever or pain 11/18/23 11/18/23 (Tylenol) acetaminophen 650 mg rectal 650 mg AL Q6H PRN PAIN/FEVER 11/18/23 11/18/23 suppository dulaglutide 3 mg/0.5 mL 3 mg subcut WK 11/18/23 11/18/23 subcutaneous pen injector (Trulicity) glimepiride 1 mg tablet 2 mg PO DAILY 11/18/23 11/18/23 guaifenesin 100 mg/5 mL oral liquid 200 mg PO Q8H PRN Cough 11/18/23 11/18/23 insulin lispro 100 unit/mL 1 sliding scale dose subcut 11/18/23 11/18/23 subcutaneous solution (Humalog USEASDIRECTD PRN Hyperglycemia U-100 Insulin) loperamide 2 mg capsule (Imodium 2 mg PO Q8H PRN Diarrhea 11/18/23 11/18/23 A-D) magnesium chloride 64 mg 64 mg PO BID 11/18/23 11/18/23 (magnesium chloride) tablet,delayed release (Mag 64) ondansetron HCl 4 mg tablet 4 mg PO Q6H PRN NAUSEA/VOMITING 11/18/23 11/18/23 promethazine 25 mg tablet 25 mg PO Q6H PRN NAUSEA/VOMITING 11/18/23 11/18/23 promethazine 25 mg/mL injection 25 mg IM Q6H PRN NAUSEA/VOMITING 11/18/23 11/18/23 solution (Phenergan) simethicone 80 mg chewable tablet 160 mg PO QID 11/18/23 11/18/23 simvastatin 40 mg tablet 40 mg PO HS 11/18/23 11/18/23 sucralfate 100 mg/mL oral 10 ml PO QID 11/18/23 11/18/23 suspension (Carafate) tamsulosin 0.4 mg capsule 0.4 mg PO HS 11/18/23 11/18/23 urea 15 gram oral powder packet 15 g PO BIDM 11/18/23 11/18/23 (Ure-Na) Previous Rx's Medication Instructions Recorded albuterol sulfate 90 mcg/actuation 2 puff inhalation Q4 PRN Shortness 10/16/23 aerosol inhaler Of Breath Or Wheezing #6.7 grams bismuth subsalicylate 262 mg 1 tab PO Q12 PRN .UPSET STOMACH 10/16/23 chewable tablet (Pepto-Bismol) #10 tabs carboxymethylcellulose sodium 0.5 1 drp OPB BID #15 mL 10/16/23 % eye drops (Refresh Tears) cholecalciferol (vitamin D3) 25 25 mcg PO QAM #30 caps 10/16/23 mcg (1,000 unit) capsule (Vitamin D3) clonazepam 0.5 mg tablet 0.5 mg PO TID #90 tabs 10/16/23 finasteride 5 mg tablet 5 mg PO QAM #30 tabs 10/16/23 gabapentin 300 mg capsule 300 mg PO TID #90 caps 10/16/23 metformin 1,000 mg tablet 1,000 mg PO BID #60 tabs 10/16/23 multivitamin 1 tab PO DAILY #30 tabs 10/16/23 oxcarbazepine 300 mg tablet 300 mg PO BID #60 tabs 10/16/23 pentoxifylline 400 mg 400 mg PO TID #90 tabs 10/16/23 tablet,extended release quetiapine 100 mg tablet 100 mg PO BID #60 tabs 10/16/23 sertraline 50 mg tablet 50 mg PO DAILY #30 tabs 10/16/23 umeclidinium 62.5 mcg/actuation 1 inh inhalation DAILY #30 ea 10/16/23 blister powder for inhalation (Incruse Ellipta) Results & Data (ED) Vital Signs Vital Signs - 24 hr 11/18/23 12:45 11/18/23 12:46 11/18/23 12:49 Temperature 37.1 C Temperature Source Oral Pulse Rate 150 H 135 H 134 H Pulse Rate [Apical] Pulse Rate from SpO2 Sensor Respiratory Rate 20 14 15 Blood Pressure 115/72 Blood Pressure [Left Arm] Blood Pressure Mean 86 Blood Pressure Mean [Left Arm] Pulse Oximetry 97 97 97 Oxygen Delivery Method Nasal Cannula Oxygen Flow Rate 2 Sepsis Recent Fever Within 48 Hours Yes Sepsis New/Unexplained Change in Mental Status N/A Sepsis Action Taken by Nursing No Action Required 11/18/23 12:49 11/18/23 12:50 11/18/23 13:00 Temperature Temperature Source Pulse Rate 152 H 144 H Pulse Rate [Apical] Pulse Rate from SpO2 Sensor Respiratory Rate 25 H 25 H Blood Pressure 113/78 Blood Pressure [Left Arm] Blood Pressure Mean 84 Blood Pressure Mean [Left Arm] Pulse Oximetry 97 97 Oxygen Delivery Method Oxygen Flow Rate Sepsis Recent Fever Within 48 Hours Sepsis New/Unexplained Change in Mental Status Sepsis Action Taken by Nursing 11/18/23 13:03 11/18/23 13:03 11/18/23 13:03 Temperature Temperature Source Pulse Rate 136 H 136 H Pulse Rate [Apical] 136 H Pulse Rate from SpO2 Sensor Respiratory Rate 20 16 Blood Pressure Blood Pressure [Left Arm] 99/63 L Blood Pressure Mean Blood Pressure Mean [Left Arm] 75 Pulse Oximetry 96 97 97 Oxygen Delivery Method Nasal Cannula Nasal Cannula Oxygen Flow Rate 2 2 Sepsis Recent Fever Within 48 Hours Sepsis New/Unexplained Change in Mental Status Sepsis Action Taken by Nursing 11/18/23 13:03 11/18/23 13:06 11/18/23 13:10 Temperature Temperature Source Pulse Rate 152 H 137 H Pulse Rate [Apical] Pulse Rate from SpO2 Sensor Respiratory Rate 16 Blood Pressure 99/63 L Blood Pressure [Left Arm] Blood Pressure Mean 82 Blood Pressure Mean [Left Arm] Pulse Oximetry 97 Oxygen Delivery Method Oxygen Flow Rate Sepsis Recent Fever Within 48 Hours Sepsis New/Unexplained Change in Mental Status Sepsis Action Taken by Nursing 11/18/23 13:13 11/18/23 13:13 11/18/23 13:15 Temperature Temperature Source Pulse Rate 130 H Pulse Rate [Apical] Pulse Rate from SpO2 Sensor 130 H Respiratory Rate 21 Blood Pressure 99/72 L 90/70 L Blood Pressure [Left Arm] Blood Pressure Mean 74 75 Blood Pressure Mean [Left Arm] Pulse Oximetry 98 Oxygen Delivery Method Oxygen Flow Rate Sepsis Recent Fever Within 48 Hours Sepsis New/Unexplained Change in Mental Status Sepsis Action Taken by Nursing 11/18/23 13:15 11/18/23 13:20 11/18/23 13:30 Temperature Temperature Source Pulse Rate 143 H 141 H 144 H Pulse Rate [Apical] Pulse Rate from SpO2 Sensor 144 H 142 H 144 H Respiratory Rate 35 H 14 22 Blood Pressure Blood Pressure [Left Arm] Blood Pressure Mean Blood Pressure Mean [Left Arm] Pulse Oximetry 97 98 98 Oxygen Delivery Method Oxygen Flow Rate Sepsis Recent Fever Within 48 Hours Sepsis New/Unexplained Change in Mental Status Sepsis Action Taken by Nursing 11/18/23 13:30 11/18/23 13:40 11/18/23 13:45 Temperature Temperature Source Pulse Rate 123 H Pulse Rate [Apical] Pulse Rate from SpO2 Sensor 116 H Respiratory Rate 23 Blood Pressure 100/48 L 102/58 L Blood Pressure [Left Arm] Blood Pressure Mean 80 76 Blood Pressure Mean [Left Arm] Pulse Oximetry 98 Oxygen Delivery Method Oxygen Flow Rate Sepsis Recent Fever Within 48 Hours Sepsis New/Unexplained Change in Mental Status Sepsis Action Taken by Nursing 11/18/23 13:45 11/18/23 13:50 11/18/23 14:00 Temperature Temperature Source Pulse Rate 122 H 123 H 120 H Pulse Rate [Apical] Pulse Rate from SpO2 Sensor 119 H 106 H 119 H Respiratory Rate 25 H 22 25 H Blood Pressure Blood Pressure [Left Arm] Blood Pressure Mean Blood Pressure Mean [Left Arm] Pulse Oximetry 98 98 98 Oxygen Delivery Method Nasal Cannula Nasal Cannula Oxygen Flow Rate 2 2 Sepsis Recent Fever Within 48 Hours Sepsis New/Unexplained Change in Mental Status Sepsis Action Taken by Nursing 11/18/23 14:00 11/18/23 14:10 11/18/23 14:15 Temperature Temperature Source Pulse Rate 122 H Pulse Rate [Apical] Pulse Rate from SpO2 Sensor 121 H Respiratory Rate 20 Blood Pressure 98/61 L 95/47 L Blood Pressure [Left Arm] Blood Pressure Mean 79 65 Blood Pressure Mean [Left Arm] Pulse Oximetry 97 Oxygen Delivery Method Nasal Cannula Oxygen Flow Rate 2 Sepsis Recent Fever Within 48 Hours Sepsis New/Unexplained Change in Mental Status Sepsis Action Taken by Nursing 11/18/23 14:15 11/18/23 14:20 11/18/23 14:30 Temperature Temperature Source Pulse Rate 120 H 117 H Pulse Rate [Apical] Pulse Rate from SpO2 Sensor 120 H 108 H Respiratory Rate 18 18 Blood Pressure 81/51 L Blood Pressure [Left Arm] Blood Pressure Mean 54 Blood Pressure Mean [Left Arm] Pulse Oximetry 97 97 Oxygen Delivery Method Nasal Cannula Nasal Cannula Oxygen Flow Rate 2 2 Sepsis Recent Fever Within 48 Hours Sepsis New/Unexplained Change in Mental Status Sepsis Action Taken by Nursing 11/18/23 14:30 11/18/23 14:32 11/18/23 14:32 Temperature Temperature Source Pulse Rate 120 H 119 H Pulse Rate [Apical] Pulse Rate from SpO2 Sensor 106 H 117 H Respiratory Rate 16 19 Blood Pressure 82/61 L Blood Pressure [Left Arm] Blood Pressure Mean 68 Blood Pressure Mean [Left Arm] Pulse Oximetry 97 97 Oxygen Delivery Method Nasal Cannula Nasal Cannula Oxygen Flow Rate 2 2 Sepsis Recent Fever Within 48 Hours Sepsis New/Unexplained Change in Mental Status Sepsis Action Taken by Nursing 11/18/23 14:40 11/18/23 14:45 11/18/23 14:45 Temperature Temperature Source Pulse Rate 117 H 115 H Pulse Rate [Apical] Pulse Rate from SpO2 Sensor 112 H 115 H Respiratory Rate 28 H 19 Blood Pressure 91/56 L Blood Pressure [Left Arm] Blood Pressure Mean 66 Blood Pressure Mean [Left Arm] Pulse Oximetry 97 99 Oxygen Delivery Method Nasal Cannula Nasal Cannula Oxygen Flow Rate 2 2 Sepsis Recent Fever Within 48 Hours Sepsis New/Unexplained Change in Mental Status Sepsis Action Taken by Nursing 11/18/23 14:50 11/18/23 15:00 11/18/23 15:00 Temperature Temperature Source Pulse Rate 121 H 117 H Pulse Rate [Apical] Pulse Rate from SpO2 Sensor 121 H 114 H Respiratory Rate 22 24 Blood Pressure 88/38 L Blood Pressure [Left Arm] Blood Pressure Mean 52 Blood Pressure Mean [Left Arm] Pulse Oximetry 99 97 Oxygen Delivery Method Nasal Cannula Nasal Cannula Oxygen Flow Rate 2 2 Sepsis Recent Fever Within 48 Hours Sepsis New/Unexplained Change in Mental Status Sepsis Action Taken by Nursing 11/18/23 15:10 11/18/23 15:15 11/18/23 15:15 Temperature Temperature Source Pulse Rate 124 H 115 H Pulse Rate [Apical] Pulse Rate from SpO2 Sensor 123 H 112 H Respiratory Rate 21 21 Blood Pressure 90/52 L Blood Pressure [Left Arm] Blood Pressure Mean 65 Blood Pressure Mean [Left Arm] Pulse Oximetry 97 98 Oxygen Delivery Method Nasal Cannula Nasal Cannula Oxygen Flow Rate 2 2 Sepsis Recent Fever Within 48 Hours Sepsis New/Unexplained Change in Mental Status Sepsis Action Taken by Nursing 11/18/23 15:20 11/18/23 15:30 11/18/23 15:30 Temperature Temperature Source Pulse Rate 115 H 115 H Pulse Rate [Apical] Pulse Rate from SpO2 Sensor 107 H 114 H Respiratory Rate 18 27 H Blood Pressure 93/59 L Blood Pressure [Left Arm] Blood Pressure Mean 74 Blood Pressure Mean [Left Arm] Pulse Oximetry 97 99 Oxygen Delivery Method Nasal Cannula Nasal Cannula Oxygen Flow Rate 2 2 Sepsis Recent Fever Within 48 Hours Sepsis New/Unexplained Change in Mental Status Sepsis Action Taken by Nursing 11/18/23 15:40 11/18/23 15:45 11/18/23 15:45 Temperature Temperature Source Pulse Rate 117 H 118 H Pulse Rate [Apical] Pulse Rate from SpO2 Sensor 115 H 108 H Respiratory Rate 22 18 Blood Pressure 98/58 L Blood Pressure [Left Arm] Blood Pressure Mean 76 Blood Pressure Mean [Left Arm] Pulse Oximetry 98 98 Oxygen Delivery Method Nasal Cannula Nasal Cannula Oxygen Flow Rate 2 2 Sepsis Recent Fever Within 48 Hours Sepsis New/Unexplained Change in Mental Status Sepsis Action Taken by Nursing 11/18/23 15:50 11/18/23 16:01 11/18/23 16:10 Temperature Temperature Source Pulse Rate 116 H 112 H 113 H Pulse Rate [Apical] Pulse Rate from SpO2 Sensor 117 H 103 H 104 H Respiratory Rate 25 H 24 15 Blood Pressure Blood Pressure [Left Arm] Blood Pressure Mean Blood Pressure Mean [Left Arm] Pulse Oximetry 98 98 99 Oxygen Delivery Method Nasal Cannula Nasal Cannula Nasal Cannula Oxygen Flow Rate 2 2 2 Sepsis Recent Fever Within 48 Hours Sepsis New/Unexplained Change in Mental Status Sepsis Action Taken by Nursing 11/18/23 16:15 11/18/23 16:15 11/18/23 16:20 Temperature Temperature Source Pulse Rate 109 H 110 H Pulse Rate [Apical] Pulse Rate from SpO2 Sensor 90 103 H Respiratory Rate 31 H 18 Blood Pressure 93/53 L Blood Pressure [Left Arm] Blood Pressure Mean 69 Blood Pressure Mean [Left Arm] Pulse Oximetry 98 99 Oxygen Delivery Method Nasal Cannula Nasal Cannula Oxygen Flow Rate 2 2 Sepsis Recent Fever Within 48 Hours Sepsis New/Unexplained Change in Mental Status Sepsis Action Taken by Nursing 11/18/23 16:30 11/18/23 16:30 11/18/23 16:40 Temperature Temperature Source Pulse Rate 107 H 108 H Pulse Rate [Apical] Pulse Rate from SpO2 Sensor 92 H 91 H Respiratory Rate 16 27 H Blood Pressure 115/88 Blood Pressure [Left Arm] Blood Pressure Mean 97 Blood Pressure Mean [Left Arm] Pulse Oximetry 99 99 Oxygen Delivery Method Nasal Cannula Nasal Cannula Oxygen Flow Rate 2 2 Sepsis Recent Fever Within 48 Hours Sepsis New/Unexplained Change in Mental Status Sepsis Action Taken by Nursing 11/18/23 16:45 11/18/23 16:45 11/18/23 16:47 Temperature Temperature Source Pulse Rate 113 H 109 H Pulse Rate [Apical] Pulse Rate from SpO2 Sensor 95 H Respiratory Rate 22 Blood Pressure 106/65 Blood Pressure [Left Arm] Blood Pressure Mean 82 Blood Pressure Mean [Left Arm] Pulse Oximetry 98 Oxygen Delivery Method Nasal Cannula Oxygen Flow Rate 2 Sepsis Recent Fever Within 48 Hours Sepsis New/Unexplained Change in Mental Status Sepsis Action Taken by Nursing 11/18/23 16:50 11/18/23 17:00 11/18/23 17:00 Temperature Temperature Source Pulse Rate 106 H 110 H Pulse Rate [Apical] Pulse Rate from SpO2 Sensor 100 H 102 H Respiratory Rate 18 27 H Blood Pressure 96/60 L Blood Pressure [Left Arm] Blood Pressure Mean 69 Blood Pressure Mean [Left Arm] Pulse Oximetry 97 97 Oxygen Delivery Method Nasal Cannula Nasal Cannula Oxygen Flow Rate 2 2 Sepsis Recent Fever Within 48 Hours Sepsis New/Unexplained Change in Mental Status Sepsis Action Taken by Nursing 11/18/23 17:10 Temperature Temperature Source Pulse Rate 110 H Pulse Rate [Apical] Pulse Rate from SpO2 Sensor 105 H Respiratory Rate 38 H Blood Pressure Blood Pressure [Left Arm] Blood Pressure Mean Blood Pressure Mean [Left Arm] Pulse Oximetry 91 Oxygen Delivery Method Nasal Cannula Oxygen Flow Rate 2 Sepsis Recent Fever Within 48 Hours Sepsis New/Unexplained Change in Mental Status Sepsis Action Taken by Nursing Laboratory Data 11/18/23 12:45 11/18/23 12:45 Lab Results 11/18/23 11/18/23 11/18/23 Range/Units 12:45 14:00 14:01 WBC 9.87 (4.8-10.8) K/ul RBC 4.06 L (4.70-6.10) M/uL Hgb 12.6 L (14.0-18.0) g/dl Hct 42.7 (42.0-52.0) % MCV 105.2 H (80.0-100.0) fL MCH 31.0 (25.0-34.0) pg MCHC 29.5 L (32.0-36.0) g/dL RDW Std Deviation 54.9 H (36.4-46.3) fL RDW Coeff of Drew 14.1 (11.5-14.5) % Plt Count 233 (130-400) K/uL MPV 10.8 (9.4-12.4) fL Immature Gran % (Auto) 0.3 % Neut % (Auto) 79.3 % Lymph % (Auto) 14.5 % [place] % (Auto) 5.3 % Eos % (Auto) 0.2 % Baso % (Auto) 0.4 % Neut # (Auto) 7.83 H (1.40-6.50) K/uL Lymph # (Auto) 1.43 (1.20-3.40) K/uL [place] # (Auto) 0.52 (0.11-0.59) K/uL Eos # (Auto) 0.02 (0.00-0.50) K/uL Baso # (Auto) 0.04 (0.00-0.20) K/uL Immature Gran # (Auto) 0.03 (0.01-0.20) K/uL VBG pH (7.36-7.41) VBG pCO2 (38-50) mmHg VBG pO2 mmHg VBG HCO3 mmol/L VBG O2 Saturation % VBG Base Excess mEq/L Sodium 158 H* (136-145) mmol/L Potassium 4.4 (3.5-5.1) mmol/L Chloride 118 H (98-107) mmol/L Carbon Dioxide 23 (21-32) mmol/L Anion Gap 17 H (3-11) BUN 76 H (6-23) mg/dl Creatinine 1.37 (0.6-1.4) mg/dl Est Cr Clr Drug Dosing Not Reportable Est GFR ( Amer) 60.6 ml/min Est GFR (Non-Af Amer) 52.3 ml/min BUN/Creatinine Ratio 55.5 H (10-20) Glucose 523 H* (70-99(Fasting)) mg/dl POC Glucose (70-99) mg/dl Lactate 1.0 (0.4-2.0) mmol/L Calcium 10.6 H (8.6-10.3) mg/dl Magnesium 2.1 (1.7-2.4) mg/dl Total Bilirubin 0.3 (0.2-1.0) mg/dl Direct Bilirubin 0.0 (0-0.2) mg/dl AST 16 (13-39) U/L ALT 13 (7-52) U/L Alkaline Phosphatase 151 H (34-104) U/L Troponin I High Sens 57.7 H* 64.5 H* (0-20) pg/ml Total Protein 7.4 (6.0-8.3) gm/dl Albumin 3.5 (3.4-5.0) gm/dl Procalcitonin 0.22 (0-0.5) ng/ml Urine Color Urine Appearance (Clear) Urine pH (4.5-7.5) Ur Specific [place] (1.000-1.030) Urine Protein (Negative) Urine Glucose (UA) (Negative) Urine Ketones (Negative) Urine Blood (Negative) Urine Nitrite (Negative) Urine Bilirubin (Negative) Urine Urobilinogen (Negative) Ur Leukocyte Esterase (Negative) Urine WBC (Auto) (0-5) /hpf Urine RBC (Auto) (0-4) /hpf U Hyaline Cast (Auto) (0-5) /lpf U Epithel Cells (Auto) (0-5) /lpf Urine Bacteria (Auto) (Negative) Urine Yeast 11/18/23 11/18/23 11/18/23 Range/Units 14:36 16:01 16:32 WBC (4.8-10.8) K/ul RBC (4.70-6.10) M/uL Hgb (14.0-18.0) g/dl Hct (42.0-52.0) % MCV (80.0-100.0) fL MCH (25.0-34.0) pg MCHC (32.0-36.0) g/dL RDW Std Deviation (36.4-46.3) fL RDW Coeff of Drew (11.5-14.5) % Plt Count (130-400) K/uL MPV (9.4-12.4) fL Immature Gran % (Auto) % Neut % (Auto) % Lymph % (Auto) % [place] % (Auto) % Eos % (Auto) % Baso % (Auto) % Neut # (Auto) (1.40-6.50) K/uL Lymph # (Auto) (1.20-3.40) K/uL [place] # (Auto) (0.11-0.59) K/uL Eos # (Auto) (0.00-0.50) K/uL Baso # (Auto) (0.00-0.20) K/uL Immature Gran # (Auto) (0.01-0.20) K/uL VBG pH 7.22 L (7.36-7.41) VBG pCO2 50 (38-50) mmHg VBG pO2 90 mmHg VBG HCO3 21 mmol/L VBG O2 Saturation 96.1 % VBG Base Excess -7.4 mEq/L Sodium (136-145) mmol/L Potassium (3.5-5.1) mmol/L Chloride (98-107) mmol/L Carbon Dioxide (21-32) mmol/L Anion Gap (3-11) BUN (6-23) mg/dl Creatinine (0.6-1.4) mg/dl Est Cr Clr Drug Dosing Est GFR ( Amer) ml/min Est GFR (Non-Af Amer) ml/min BUN/Creatinine Ratio (10-20) Glucose (70-99(Fasting)) mg/dl POC Glucose 351 H* (70-99) mg/dl Lactate (0.4-2.0) mmol/L Calcium (8.6-10.3) mg/dl Magnesium (1.7-2.4) mg/dl Total Bilirubin (0.2-1.0) mg/dl Direct Bilirubin (0-0.2) mg/dl AST (13-39) U/L ALT (7-52) U/L Alkaline Phosphatase (34-104) U/L Troponin I High Sens (0-20) pg/ml Total Protein (6.0-8.3) gm/dl Albumin (3.4-5.0) gm/dl Procalcitonin (0-0.5) ng/ml Urine Color Yellow Urine Appearance Cloudy A (Clear) Urine pH 5.0 (4.5-7.5) Ur Specific [place] 1.023 (1.000-1.030) Urine Protein 2+ H (Negative) Urine Glucose (UA) 3+ H (Negative) Urine Ketones 2+ H (Negative) Urine Blood 3+ H (Negative) Urine Nitrite Negative (Negative) Urine Bilirubin Negative (Negative) Urine Urobilinogen Negative (Negative) Ur Leukocyte Esterase 2+ H (Negative) Urine WBC (Auto) >30 H (0-5) /hpf Urine RBC (Auto) 10-30 H (0-4) /hpf U Hyaline Cast (Auto) 1-5 (0-5) /lpf U Epithel Cells (Auto) 10-20 H (0-5) /lpf Urine Bacteria (Auto) Negative (Negative) Urine Yeast Not Reportable Administered Medications Sodium Chloride (Nss) 1,000 mls @ 999 mls/hr IV .Q1H1M SEN Stop: 11/18/23 18:30 Last Admin: 11/18/23 16:49 Dose: 999 mls/hr Documented By: Infusion: 11/18/23 16:49 Dose: Infused Documented By: Admin: 11/18/23 16:34 Dose: 999 mls/hr Documented By: AMS Discontinued Medications Sodium Chloride (Nss) 1,000 mls @ 999 mls/hr IV .Q1H1M SEN Stop: 11/18/23 13:45 Last Infusion: 11/18/23 15:42 Dose: Infused Documented By: Admin: 11/18/23 13:12 Dose: 999 mls/hr Documented By: ML Sodium Chloride (Nss) 1,000 mls @ 999 mls/hr IV .Q1H1M ONE Stop: 11/18/23 14:06 Last Infusion: 11/18/23 15:00 Dose: Infused Documented By: Admin: 11/18/23 13:09 Dose: 999 mls/hr Documented By: ML Piperacillin Sod/Tazobactam Sod (Zosyn) 4.5 gm in 100 mls @ 200 mls/hr IV NOW ONE Stop: 11/18/23 15:37 Last Infusion: 11/18/23 16:13 Dose: Infused Documented By: Admin: 11/18/23 15:30 Dose: 200 mls/hr Documented By: YESSI Insulin Human Regular (Novolin-R Insulin Per Unit Charge) 5 units IV NOW STA Stop: 11/18/23 15:11 Last Admin: 11/18/23 15:29 Dose: 5 units Documented By: YESSI Co-signed By: GURWINDER Imaging Data Radiologist's Impression: Chest X-Ray 11/18/23 12:34 XR chest 1V portable HISTORY: 68 years-old Male Sepsis acute sepsis COMPARISON: 09/26/2023 TECHNIQUE: AP view of the chest FINDINGS: Cardiac silhouette is enlarged. Pulmonary vascular congestion. No pneumothorax, pleural effusion or overt pulmonary edema. Mild subsegmental left basilar densities. Partially imaged IVC filter. Sigmoidal scoliosis of the spine. Chronic right-sided rib fractures. The patient is rotated. IMPRESSION: 1. Cardiomegaly with pulmonary vascular congestion. 2. Subsegmental left basilar opacities are similar to prior, likely atelectatic. ACT 112: Negative or not required by law. The above report was generated using voice recognition software. It may contain grammatical, syntax or spelling errors. Electronically signed by: Bradley Whalen M.D. 11/18/2023 1:45 PM Discharge Plan Visit Data Chief Complaint: Urinary Symptoms Stated Complaint: UTI/SEPSIS ED Provider: Aditya Andujar Discharge Problem: Acute hypernatremia Forms Stand Alone Forms: My [facility] Prescriptions Prescriptions: No Action multivitamin Tablet 1 tab PO DAILY Qty: 30 0RF clonazepam 0.5 mg tablet 0.5 mg PO TID Qty: 90 0RF Rx Instructions: 0800, 1600, 2000 oxcarbazepine 300 mg tablet 300 mg PO BID Qty: 60 0RF quetiapine 100 mg tablet 100 mg PO BID Qty: 60 0RF pentoxifylline 400 mg tablet extended release 400 mg PO TID Qty: 90 0RF carboxymethylcellulose sodium [Refresh Tears] 0.5 % Drops 1 drp OPB BID Qty: 15 0RF metformin 1,000 mg tablet 1,000 mg PO BID Qty: 60 0RF gabapentin 300 mg capsule 300 mg PO TID Qty: 90 0RF bismuth subsalicylate [Pepto-Bismol] 262 mg Tablet,Chewable 1 tab PO Q12 PRN (Reason: .UPSET STOMACH) Qty: 10 0RF albuterol sulfate 90 mcg/actuation Hfa Aerosol Inhaler 2 puff INHALATION Q4 PRN (Reason: Shortness Of Breath Or Wheezing) Qty: 6.7 0RF sertraline 50 mg tablet 50 mg PO DAILY Qty: 30 0RF finasteride 5 mg Tablet 5 mg PO QAM Qty: 30 0RF cholecalciferol (vitamin D3) [Vitamin D3] 25 mcg (1,000 unit) Capsule 25 mcg PO QAM Qty: 30 0RF Incruse Ellipta 62.5 mcg/actuation blister with device 1 inh INHALATION DAILY Qty: 30 0RF acetaminophen 650 mg Suppository 650 mg AL Q6H PRN (Reason: PAIN/FEVER) sucralfate [Carafate] 100 mg/mL Suspension 10 ml PO QID Rx Instructions: swish in mouth and swallow; use after food/drink ondansetron HCl [Zofran] 4 mg Tablet 4 mg PO Q6H PRN (Reason: NAUSEA/VOMITING) promethazine [Phenergan] 25 mg/mL Solution 25 mg IM Q6H PRN (Reason: NAUSEA/VOMITING) promethazine 25 mg Tablet 25 mg PO Q6H PRN (Reason: NAUSEA/VOMITING) insulin lispro [Humalog U-100 Insulin] 100 unit/mL Solution 1 sliding scale dose SUBCUT USEASDIRECTD PRN (Reason: Hyperglycemia) Rx Instructions: BSG 350-400=8 UNITS, BSG 401-450=12 UNITS, BSG 451-500=16 UNITS, XUY300- 550=18 UNITS, RECHECK BSG IN 2 HRS. simethicone 80 mg Tablet,Chewable 160 mg PO QID Saccharomyces boulardii [Florastor] 250 mg Capsule 250 mg PO QAM Frozen Nutritional Treat 1 cp PO QPM acetaminophen [Tylenol] 325 mg tablet 650 mg PO Q6H MDD 3 GRAMS APAP/24 HOURS PRN (Reason: fever or pain) loperamide [Imodium A-D] 2 mg capsule 2 mg PO Q8H PRN (Reason: Diarrhea) Rx Instructions: administer after each loose stool until symptoms controlled; do not exceed 8 mg per 24 hrs guaifenesin 100 mg/5 mL liquid 200 mg PO Q8H PRN (Reason: Cough) simvastatin 40 mg tablet 40 mg PO HS glimepiride 1 mg tablet 2 mg PO DAILY tamsulosin 0.4 mg capsule 0.4 mg PO HS Mag 64 64 mg tablet,delayed release (DR/EC) 64 mg PO BID Ure-Na 15 gram powder in packet 15 g PO BIDM Trulicity 3 mg/0.5 mL pen injector 3 mg SUBCUT WK Rx Instructions: [facility] Referrals Referrals: Andrew Montague MD [Primary Care Provider] -
[2023-11-18] MEDS ORDERED: SODIUM CHLORIDE 0.9% 1,000 ML IV SCH ×2 (12:45→18:14)
[2023-11-18] MEDS ORDERED: SODIUM CHLORIDE 0.9% 1,000 ML IV ONE (13:06)
[2023-11-18 13:10] LABS: Basophils # (auto) 0.04 K/uL (0.00-0.20); Basophils % (auto) 0.4 %; Eosinophils # (auto) 0.02 K/uL (0.00-0.50); Eosinophils % (auto) 0.2 %; Hematocrit (blood only) 42.7 % (42.0-52.0); Hemoglobin 12.6 g/dl (14.0-18.0); Immature Granulocytes # (auto) 0.03 K/uL (0.01-0.20); Immature Granulocytes % (auto) 0.3 %; Lymphocytes # (auto) 1.43 K/uL (1.20-3.40); Lymphocytes % (auto) 14.5 %; Mean Corpuscular Hgb Conc 29.5 g/dL (32.0-36.0); Mean Corpuscular Volume 105.2 fL (80.0-100.0); Mean Platelet Volume 10.8 fL (9.4-12.4); Monocytes # (auto) 0.52 K/uL (0.11-0.59); Monocytes % (auto) 5.3 %; Neutrophils # (auto) 7.83 K/uL (1.40-6.50); Neutrophils % (auto) 79.3 %; Platelet Count 233 K/uL (130-400); RDW Coefficient of Variation 14.1 % (11.5-14.5); RDW Standard Deviation 54.9 fL (36.4-46.3); Red Blood Count 4.06 M/uL (4.70-6.10); White Blood Count 9.87 K/ul (4.8-10.8)
[2023-11-18 13:29] LABS: Albumin Level 3.5 gm/dl (3.4-5.0); Anion Gap 17 (3-11); Bilirubin,Total 0.3 mg/dl (0.2-1.0); Calcium 10.6 mg/dl (8.6-10.3); Carbon Dioxide 23 mmol/L (21-32); Chloride 118 mmol/L (98-107); Magnesium 2.1 mg/dl (1.7-2.4); Potassium 4.4 mmol/L (3.5-5.1); Sodium 158 mmol/L (136-145)
[2023-11-18 13:42] LABS: Alanine Aminotransferase 13 U/L (7-52); Alkaline Phosphatase 151 U/L (34-104); Aspartate Aminotransferase 16 U/L (13-39); BUN Creatinine Ratio 55.5 (10-20); Blood Urea Nitrogen 76 mg/dl (6-23); Est GFR (African American) 60.6 ml/min; Est GFR (Non-African American) 52.3 ml/min; Glucose 523 mg/dl (70-99(Fasting)); Total Protein 7.4 gm/dl (6.0-8.3); Troponin I High Sensitivity 57.7 pg/ml (0-20)
--- NOTE | 2023-11-18 13:48 | XRay Report ---
XR chest 1V portable HISTORY: 68 years-old Male Sepsis acute sepsis COMPARISON: 09/26/2023 TECHNIQUE: AP view of the chest FINDINGS: Cardiac silhouette is enlarged. Pulmonary vascular congestion. No pneumothorax, pleural effusion or o vert pulmonary edema. Mild subsegmental left basilar densities. Partially imaged IVC filter. Sigmoida l scoliosis of the spine. Chronic right-sided rib fractures. The patient is rotated. IMPRESSION: 1. Cardiomegaly with pulmonary vascular congestion. 2. Subsegmental left basilar opacities are similar to prior, likely atelectatic. ACT 112: Negative or not required by law. The above report was generated using voice recognition software. It may contain grammatical, syntax o r spelling errors. Electronically signed by: Bradley Whalen M.D. 11/18/2023 1:45 PM
[2023-11-18 14:47] LABS: Appearance Urine Cloudy (Clear); Bacteria Urine Automated Negative (Negative); Bilirubin Urine Negative (Negative); Blood Urine 3+ (Negative); Color Urine Yellow; Glucose Urine UA 3+ (Negative); Ketones Urine 2+ (Negative); Leukocyte Esterase Urine 2+ (Negative); Nitrite Urine Negative (Negative); Protein Urine 2+ (Negative); Specific Gravity Urine 1.023 (1.000-1.030); Urobilinogen Urine Negative (Negative); WBC Urine Automated >30 /hpf (0-5)
[2023-11-18] MEDS ORDERED: PIPERACILLIN/TAZOBACTAM 4.5 GM/100 ML BAG IV ONE (15:08)
[2023-11-18] MEDS ORDERED: NovoLIN-R INSULIN PER UNIT CHARGE IV STA (15:10)
--- NOTE | 2023-11-18 16:06 | History & Physical Report ---
Date of Service November 18, 2023 Assessment & Plan (1) UTI (urinary tract infection): (2) Sepsis: Plan: -Admit to ICU -On IV Zosyn due to allergies -Blue catheter was exchanged upon presentation here to the ER, negative WBC, afebrile here but reported fever 101.8 at outpatient SNF -Follow UCx and BCx x 2 -BP is running soft systolics 100 down into the 90s currently, heart rate in 130s improved into the 115's with fluid resuscitation -Troponin is mildly elevated 57.7, can trend every 6 hours -history of Klebsiella UTI in September 2023, resistant to Bactrim and nitrofurantoin, sensitive to all other agents -Cont volume resuscitation, bps soft currently at bedside, if needs pressors then will need to contact POA as pt is not able to give consent - Afebrile currently - Can use tylenol po since he is more awake at this time - HR is improving (3) Hypernatremia: Plan: - Severe hypernatremia, on admission is 158, corrected is even higher with hyperglycemia. Appears dry on exam, fluid resuscitation as above-will give an additional 2L, has already received 2L NSS --- discussed with ICU --- will give 1L NSS again, total of 5 L infused. - BMP repeat next 1 at 1800, trend Q2H - Holding urea 15 gm BID as he was placed on this during last admission - Nephrology consultation (4) Cerebral palsy: (5) Intellectual disability: Plan: -History of such, chronic, stable -May continue on sertraline, Seroquel, oxcarbazepine, gabapentin -Had speech eval during last stay: alternate solids, liquids supervised meals, be fully alert and upright, oral hygiene (6) Aortic stenosis: (7) Presence of IVC filter: (8) Diastolic CHF, chronic: Plan: - EF 60-65%, TTE 2022), stable - Lasix stopped during recent hospitalization due to SIADH and hyponatremia - Allowed a high sodium diet as outpatient - will allow diet for now, montior sodium as above - Has free water deficit of 4.7 L on calculations, has received 2 L NSS so far, given additional 2 L and reassess BMP, glucose initially was 523, was given 5 units of insulin, recheck now --- down to 351. Follow labs. (9) PAF (paroxysmal atrial fibrillation): Plan: - not on anticoagulation due to fall risk. Metoprolol stopped due to bradycardia during last hospital stay (10) Chronic obstructive pulmonary disease: Plan: - Hx of such (11) Diabetes mellitus, type 2: Plan: - Sliding scale insulin while in hospital pending fluids/dehydration improved initial hyperglycemia - Will hold metformin po and glimepiride - Resumed home Trulicity, metformin and amaryl on discharge - Monitor blood glucose and adjust meds as needed (12) GERD (gastroesophageal reflux disease): Plan: - Cont GI PPx (13) Anemia: Plan: - Chronic, stable DVT ppx: teds, scds Lines 2 PIV FEN/GI: DM II diet CODE: FULL Dispo: From home, likely to remain in the hospital x 1-2 days History of Present Illness Chief Complaint: Sepsis, urinary symptoms Primary Care Provider: Andrew Montague MD This is a 68-year-old male with PMHx of Chronic diastolic CHF, PAF not on anticoagulation due to fall risk, PSVT, mild , HTN, HLD, cerebral palsy, nonverbal, intellectual disability, Klinefelter syndrome, hyperprolactinemia, mood disorder, SIADH, DM type II, COPD, GERD, TRINIDAD, peripheral vascular disease, who presents from SNF for complaints of fever, increased lethargy concern for UTI. He is reported to have had a fever of 101.8, UA was performed last evening and showed urine with +4 bacteria, and therefore he was sent via ambulance to the hospital here today with worsening lethargy. He has a chronic indwelling Blue catheter which was changed upon presentation to the ER today. He was recently hospitalized from 09/16 to 10/16 2023 for hyponatremia as well as Klebsiella UTI. He initially at that time presented with abdominal pain, chest pain and diarrhea. And it was thought that this was due to suspected ileus related to gastroenteritis. This prolonged hospital stay was complicated by hyponatremia secondary to SIADH worsened with the use of diuretics, Lasix, which was held and placed on urea 15 g twice daily as well as fluid restriction and 1.5 L fluid daily. He was allowed to use salt on his food and high-protein diet and was followed by nephrology at that time. He was discharged to [facility] and has been there since. He is found to have a white count of 9.87, afebrile here, UA appears suspicious for infection however may be colonized. Initially his heart rate was in the 130s, improved to the 110s with 30 cc/kg of IV fluids administered for sepsis protocol in the per ER. Troponins found to be elevated at 57.7. He was started on IV Zosyn due to allergies. Initially patient is asleep and difficult to awaken with verbal stimuli, throughout exam and with palpation of abdomen he awakens. Patient is essentially nonverbal. does smile and is awake during my physical exam, he follows some basic commands such as raising his hands, smiles intermittently saying hi. Attempted to contact SNF and medical office receptionist assistant was unable to connect me to the rehab facility to speak with nursing personelle. Allergies Allergy/AdvReac Type Severity Reaction Status Date / Time lactose Allergy Intermediate GI SYMPTOMS Verified 11/18/23 16:19 aspirin Allergy Unknown UNKNOWN Verified 11/18/23 16:19 REACTION cephalexin Allergy Unknown UNKNOWN Verified 11/18/23 16:19 REACTION Cephalosporins Allergy Unknown UNKNOWN Verified 11/18/23 16:19 REACTION Corticosteroids Allergy Unknown UNKNOWN Verified 11/18/23 16:19 (Glucocorticoids) REACTION methylprednisolone Allergy Unknown UNKNOWN Verified 11/18/23 16:19 REACTION shellfish derived Allergy Unknown UNKNOWN Verified 11/18/23 16:19 REACTION Home Medications Medication Instructions Recorded Confirmed Type albuterol sulfate 90 mcg/actuation 2 puff inhalation Q4 PRN Shortness 10/16/23 11/18/23 Rx aerosol inhaler Of Breath Or Wheezing #6.7 grams bismuth subsalicylate 262 mg 1 tab PO Q12 PRN .UPSET STOMACH 10/16/23 11/18/23 Rx chewable tablet (Pepto-Bismol) #10 tabs carboxymethylcellulose sodium 0.5 1 drp OPB BID #15 mL 10/16/23 11/18/23 Rx % eye drops (Refresh Tears) cholecalciferol (vitamin D3) 25 25 mcg PO QAM #30 caps 10/16/23 11/18/23 Rx mcg (1,000 unit) capsule (Vitamin D3) clonazepam 0.5 mg tablet 0.5 mg PO TID #90 tabs 10/16/23 11/18/23 Rx finasteride 5 mg tablet 5 mg PO QAM #30 tabs 10/16/23 11/18/23 Rx gabapentin 300 mg capsule 300 mg PO TID #90 caps 10/16/23 11/18/23 Rx metformin 1,000 mg tablet 1,000 mg PO BID #60 tabs 10/16/23 11/18/23 Rx multivitamin 1 tab PO DAILY #30 tabs 10/16/23 11/18/23 Rx oxcarbazepine 300 mg tablet 300 mg PO BID #60 tabs 10/16/23 11/18/23 Rx pentoxifylline 400 mg 400 mg PO TID #90 tabs 10/16/23 11/18/23 Rx tablet,extended release quetiapine 100 mg tablet 100 mg PO BID #60 tabs 10/16/23 11/18/23 Rx sertraline 50 mg tablet 50 mg PO DAILY #30 tabs 10/16/23 11/18/23 Rx umeclidinium 62.5 mcg/actuation 1 inh inhalation DAILY #30 ea 10/16/23 11/18/23 Rx blister powder for inhalation (Incruse Ellipta) Frozen Nutritional Treat 1 cp PO QPM 11/18/23 11/18/23 History Saccharomyces boulardii 250 mg 250 mg PO QAM 11/18/23 11/18/23 History capsule (Florastor) acetaminophen 325 mg tablet 650 mg PO Q6H PRN fever or pain 11/18/23 11/18/23 History (Tylenol) acetaminophen 650 mg rectal 650 mg RI Q6H PRN PAIN/FEVER 11/18/23 11/18/23 His tory suppository dulaglutide 3 mg/0.5 mL 3 mg subcut WK 11/18/23 11/18/23 History subcutaneous pen injector (Trulicity) glimepiride 1 mg tablet 2 mg PO DAILY 11/18/23 11/18/23 History guaifenesin 100 mg/5 mL oral liquid 200 mg PO Q8H PRN Cough 11/18/23 11/18/23 History insulin lispro 100 unit/mL 1 sliding scale dose subcut 11/18/23 11/18/23 History subcutaneous solution (Humalog USEASDIRECTD PRN Hyperglycemia U-100 Insulin) loperamide 2 mg capsule (Imodium 2 mg PO Q8H PRN Diarrhea 11/18/23 11/18/23 History A-D) magnesium chloride 64 mg 64 mg PO BID 11/18/23 11/18/23 History (magnesium chloride) tablet,delayed release (Mag 64) ondansetron HCl 4 mg tablet 4 mg PO Q6H PRN NAUSEA/VOMITING 11/18/23 11/18/23 History promethazine 25 mg tablet 25 mg PO Q6H PRN NAUSEA/VOMITING 11/18/23 11/18/23 History promethazine 25 mg/mL injection 25 mg IM Q6H PRN NAUSEA/VOMITING 11/18/23 11/18/23 History solution (Phenergan) simethicone 80 mg chewable tablet 160 mg PO QID 11/18/23 11/18/23 History simvastatin 40 mg tablet 40 mg PO HS 11/18/23 11/18/23 History sucralfate 100 mg/mL oral 10 ml PO QID 11/18/23 11/18/23 History suspension (Carafate) tamsulosin 0.4 mg capsule 0.4 mg PO HS 11/18/23 11/18/23 History urea 15 gram oral powder packet 15 g PO BIDM 11/18/23 11/18/23 History (Ure-Na) Past Med/Surg History Medical History Severe sepsis Pica Asthma Aortic stenosis Mild per 09/2021 ECHO TRINIDAD (obstructive sleep apnea) Per records Peroneal palsy DJD (degenerative joint disease) Neuropathy TMJ (temporomandibular joint disorder) Venous insufficiency History of COVID-19 Tested positive 09/21/21 [facility] Sinus congestion only. no hospitalization. No current problems. Hyperlipidemia Depression Anxiety Osteoporosis Scoliosis GERD (gastroesophageal reflux disease) Diabetes mellitus, type 2 Chronic obstructive pulmonary disease Well controlled > hasnt used res inh for 2 yrs Cerebral palsy Neck pain Hypotension Elevated troponin Hyperglycemia Presence of IVC filter Placed in 1997 per records TRINIDAD (obstructive sleep apnea) PVD (peripheral vascular disease) Diabetes mellitus, type II GERD (gastroesophageal reflux disease) COPD (chronic obstructive pulmonary disease) Intellectual disability [facility] Tibia fracture Pneumonia Hospital-acquired pneumonia Femoral condyle fracture CAP (community acquired pneumonia) Surgical History S/P cataract surgery Left and Right History of colonoscopy History of tooth extraction History of cholecystectomy Family History Father Coronary heart disease Social History Smoking Status: Never smoker packs per day: 30; Second Hand Exposure: No; Do You Dip or Chew Tobacco: No; Hx Alcohol Use: No Hx Substance Use: No Preferred Language: Lao Communication Ability: Unable Communication Ability Comment: [facility] Communication Tools: Other Visual Impairment: No Limitations Hearing Ability: Use of Hearing Aid Log Peeler Required: No Beliefs That Will Affect Care: None marital status: Single marital status details: [facility] Current Living Situation: Personal Care Facility Current Living Situation Comment: [facility] current occupational status: disabled How many Children do You have: 0 Feels Safe at Home: Yes Diet: diabetic caffeine: No Assistive Devices: Mechanical Lift and Wheelchair Review of Systems Review of Systems: Unobtainable due to cognitive status Physical Exam Physical Exam: General: awake, alert, no apparent distress, nonverbal, cerebral palsy, diffuse muscle wasting Head: Normocephalic, atraumatic ENT: PERRL, EOMI, no pharyngeal exudate, mucous membranes are very dry Chest: Clear to auscultation, on 3L via NC, no adventitious breath sounds Cardiac: Irregularly irregular, rate controlled, loud holosystolic murmur with radiation to carotids, no JVD, normal peripheral pulses, good capillary refill Abdominal: NABS x 4 quadrants, soft, nondistended, nontender to palpation, no rebound or guarding Extremities: Left lower extremity with chronic peripheral vascular skin changes, no peripheral edema or erythema, calfs nontender to palpation Skin: Skin turgor is poor Psych: Normal mood and affect pleasant Neuro: AA, strength unable to be assessed, essentially nonverbal, can say hi but this is all during the course of my visitation with the patient Please see attending addendum for further physical exam findings. Results & Data Results & Data Vital Signs (Past 12 Hours) Vital Signs Temp Pulse Pulse Resp BP BP Pulse Ox 11/18/23 14:50 121 H 22 99 11/18/23 14:45 91/56 L 11/18/23 14:45 115 H 19 99 11/18/23 14:40 117 H 28 H 97 11/18/23 14:32 119 H 19 97 11/18/23 14:32 82/61 L 11/18/23 14:30 120 H 16 97 11/18/23 14:30 81/51 L 11/18/23 14:20 117 H 18 97 11/18/23 14:15 120 H 18 97 11/18/23 14:15 95/47 L 11/18/23 14:10 122 H 20 97 11/18/23 14:00 98/61 L 11/18/23 14:00 120 H 25 H 98 11/18/23 13:50 123 H 22 98 11/18/23 13:45 122 H 25 H 98 11/18/23 13:45 102/58 L 11/18/23 13:40 123 H 23 98 11/18/23 13:30 100/48 L 11/18/23 13:30 144 H 22 98 11/18/23 13:20 141 H 14 98 11/18/23 13:15 143 H 35 H 97 11/18/23 13:15 90/70 L 11/18/23 13:13 130 H 21 98 11/18/23 13:13 99/72 L 11/18/23 13:10 137 H 16 97 11/18/23 13:06 152 H 11/18/23 13:03 99/63 L 11/18/23 13:03 136 H 16 97 11/18/23 13:03 136 H 20 99/63 L 97 11/18/23 13:03 136 H 96 11/18/23 13:00 144 H 25 H 97 11/18/23 12:50 152 H 25 H 97 11/18/23 12:49 113/78 11/18/23 12:49 134 H 15 97 11/18/23 12:46 135 H 14 97 11/18/23 12:45 37.1 C 150 H 20 115/72 97 O2 Del Method O2 Flow Rate 11/18/23 14:50 Nasal Cannula 2 11/18/23 14:45 11/18/23 14:45 Nasal Cannula 2 11/18/23 14:40 Nasal Cannula 2 11/18/23 14:32 Nasal Cannula 2 11/18/23 14:32 11/18/23 14:30 Nasal Cannula 2 11/18/23 14:30 11/18/23 14:20 Nasal Cannula 2 11/18/23 14:15 Nasal Cannula 2 11/18/23 14:15 11/18/23 14:10 Nasal Cannula 2 11/18/23 14:00 11/18/23 14:00 Nasal Cannula 2 11/18/23 13:50 Nasal Cannula 2 11/18/23 13:45 11/18/23 13:45 11/18/23 13:40 11/18/23 13:30 11/18/23 13:30 11/18/23 13:20 11/18/23 13:15 11/18/23 13:15 11/18/23 13:13 11/18/23 13:13 11/18/23 13:10 11/18/23 13:06 11/18/23 13:03 11/18/23 13:03 11/18/23 13:03 Nasal Cannula 2 11/18/23 13:03 Nasal Cannula 2 11/18/23 13:00 11/18/23 12:50 11/18/23 12:49 11/18/23 12:49 11/18/23 12:46 11/18/23 12:45 Nasal Cannula 2 Laboratory Results 11/18/23 14:36 Urine Culture - Pending Urine,Clean Catch 11/18/23 14:00 Aerobic Blood Culture - Pending Blood Anaerobic Blood Culture - Pending 11/18/23 12:45 Aerobic Blood Culture - Pending Blood Anaerobic Blood Culture - Pending 11/18/23 11/18/23 11/18/23 14:36 14:00 12:45 WBC 9.87 RBC 4.06 L Hgb 12.6 L Hct 42.7 MCV 105.2 H MCH 31.0 MCHC 29.5 L RDW Std Deviation 54.9 H RDW Coeff of Drew 14.1 Plt Count 233 MPV 10.8 Immature Gran % (Auto) 0.3 Neut % (Auto) 79.3 Lymph % (Auto) 14.5 [place] % (Auto) 5.3 Eos % (Auto) 0.2 Baso % (Auto) 0.4 Neut # (Auto) 7.83 H Lymph # (Auto) 1.43 [place] # (Auto) 0.52 Eos # (Auto) 0.02 Baso # (Auto) 0.04 Immature Gran # (Auto) 0.03 Sodium 158 H* Potassium 4.4 Chloride 118 H Carbon Dioxide 23 Anion Gap 17 H BUN 76 H Creatinine 1.37 Est Cr Clr Drug Dosing Not Reportable Est GFR ( Amer) 60.6 Est GFR (Non-Af Amer) 52.3 BUN/Creatinine Ratio 55.5 H Glucose 523 H* Lactate 1.0 Calcium 10.6 H Magnesium 2.1 Total Bilirubin 0.3 Direct Bilirubin 0.0 AST 16 ALT 13 Alkaline Phosphatase 151 H Troponin I High Sens 57.7 H* Total Protein 7.4 Albumin 3.5 Procalcitonin 0.22 Urine Color Yellow Urine Appearance Cloudy A Urine pH 5.0 Ur Specific [place] 1.023 Urine Protein 2+ H Urine Glucose (UA) 3+ H Urine Ketones 2+ H Urine Blood 3+ H Urine Nitrite Negative Urine Bilirubin Negative Urine Urobilinogen Negative Ur Leukocyte Esterase 2+ H Urine WBC (Auto) >30 H Urine RBC (Auto) 10-30 H U Hyaline Cast (Auto) 1-5 U Epithel Cells (Auto) 10-20 H Urine Bacteria (Auto) Negative Urine Yeast Not Reportable Diagnostic Findings Chest X-Ray 11/18/23 12:34 XR chest 1V portable HISTORY: 68 years-old Male Sepsis acute sepsis COMPARISON: 09/26/2023 TECHNIQUE: AP view of the chest FINDINGS: Cardiac silhouette is enlarged. Pulmonary vascular congestion. No pneumothorax, pleural effusion or overt pulmonary edema. Mild subsegmental left basilar densities. Partially imaged IVC filter. Sigmoidal scoliosis of the spine. Chronic right-sided rib fractures. The patient is rotated. IMPRESSION: 1. Cardiomegaly with pulmonary vascular congestion. 2. Subsegmental left basilar opacities are similar to prior, likely atelectatic. ACT 112: Negative or not required by law. The above report was generated using voice recognition software. It may contain grammatical, syntax or spelling errors. Electronically signed by: Bradley Whalen M.D. 11/18/2023 1:45 PM Code Status & VTE Plan Code Status DNR/DNI Supervising Physician Co-Signing Physician Notes 68-year-old male with PMHx of Chronic diastolic CHF, PAF not on anticoagulation due to fall risk, PSVT, mild , HTN, HLD, cerebral palsy, nonverbal, intellectual disability, Klinefelter syndrome, hyperprolactinemia, mood disorder, SIADH, DM type II, COPD, GERD, TRINIDAD, peripheral vascular disease, who presents from SNF for complaints of fever, increased lethargy concern for UTI Patient is currently arousable and occasionally follows simple commands. He is non verbal at baseline Patient's oral mucosa is dry Has got 2 L normal saline in the ER. BP 96/60, pulse in the 110s Labs notable for sodium of 158, glucose of 523, calcium of 10.6, Creatinine of 1.37 [baseline 0.5], troponin of 57.764.5 UA showed 2+ leukocyte esterase more than 30 WBC, VBG of 7.22 Chest x-ray noted cardiomegaly with pulmonary vascular congestion Possible Sepsis, Complicated UTI Severe dehydration Hypernatremia SRAVANTHI Got 2L bolus in ER Ordered another 2L IVF NSS bolus Monitor mental status Continue zosyn Check Blood culture, urine culture Get EKG Trend trop Monitor accucheck Hold Urea Hypernatremia is severe, 165 when corrected for hyperglycemia Free water deficit is 4.7L. Will give another 1L of fluid Recheck BMP stat and monitor frequently to avoid rapid correction Will need D5W after rehydration Got IV insulin Recheck BG. May need insulin drip after BMP results Follow up infectious workup Nephro consult I discussed patient with ICU Attending Dr uL and Nurse practitioner Brian. Patient accepted to ICU I spent a total of 50 minutes coordinating, documenting and providing care for this patient excluding time spent in performance of separately billed services (2) Sepsis Acute respiratory failure type: with hypoxia Sepsis acute organ dysfunction status: with acute organ dysfunction Sepsis type: sepsis due to unspecified organism Severe sepsis acute organ dysfunction type: acute respiratory failure Severe sepsis shock status: unspecified Qualified Code(s): A41.9 - Sepsis, unspecified organism; R65.20 - Severe sepsis without septic shock; J96.01 - Acute respiratory failure with hypoxia (13) Anemia Anemia type: unspecified type Qualified Code(s): D64.9 - Anemia, unspecified
[2023-11-18 16:12] LABS: Base Excess VBG -7.4 mEq/L; HCO3 VBG 21 mmol/L; Oxygen Saturation VBG 96.1 %; PCO2 VBG 50 mmHg (38-50); PO2 VBG 90 mmHg; pH VBG 7.22 (7.36-7.41)
[2023-11-18] MEDS: SODIUM CHLORIDE 0.9% 1,000 ML IV SCH ×2 (16:34→16:49)
[2023-11-18] MEDS ORDERED: ALBUTEROL HFA 8 GM INHALER INH PRN (17:45)
--- OUTSIDE RECORDS SUMMARY | 2023-11-18 18:05 | External Medical Summary | Summary of Care ---
Author Name Unknown Organization [facility] Address [address] [place] [address] Phone [phone] Care Team Providers Care Crime Victim Specialist Name Role Phone Clari ORELLANA MD, Andrew Lane Primary Care Provider Reason for Visit * Reason Onset Date Comments Fax 11/18/2023 Encounter Details Date Type Department Care Team ([facility] Contact Info) Description 11/18/2023 Telephone Family Practice [facility] [address] [place] [address] Andrew Montague III, MD [address] [place] [address] Fax Allergies Active Allergy Reactions Criticality Noted Date Comments Aspirin 04/06/2015 Cephalexin Unknown 11/07/2010 Cephalexin 05/27/2022 Cephalosporins Unknown 01/14/2001 Corticosteroids Unknown 01/14/2001 MEDROL PACK Haloperidol 10/25/2021 Tilactase Diarrhea 05/19/2018 Levofloxacin 07/28/2020 QUESTIONABLE allergy- rash AFTER finishing course of abx on chest Shellfish Allergy 04/06/2015 documented as of this encounter (statuses as of 11/18/2023) Medications Medication Sig Dispensed Refills Start Date End Date Status Culinary AgentsTOUCH BallLogic SYSTEM W/DEVICE KITIndications:DM type 2, goal A1c [...] directed for incontinence. 90 Each 04/08/2023 Active Gabapentin 300 MG Oral Capsule (Neurontin) [...] Tablet 5 06/23/2023 Active OneTouch Delica Plus [id number] ns:Type 2 diabetes mellitus with hemoglobin A1c goal of less than 7.0% ([facility]) Please check patients blood sugar before lunch on days that he attends the day program 400 Each 3 07/03/2023 Active Loperamide HCl 2 MG Oral Tablet (Immodium (A-D)) Take 1 Tablet by mouth 3 times a day as needed for Diarrhea. 30 Tablet 0 07/08/2023 Active Incruse Ellipta 62.5 MCG/ACT Inhalation Aerosol Powder Breath Activated (umeclidinium Eupora) Inhale 1 Puff by mouth in the morning. 30 Each 11 07/08/2023 Active Triamcinolone Acetonide 0.1 % External Ointment (Aristocort)Indica tions:Dermatitis,P ruritus Apply topically to affected area 2 times a day. To affected area for 4 weeks or until healed 80 g 1 07/11/2023 Active Incontinence Brief Large USE DIRECTED FOR INCONTINENCE and throughout the day program 90 Each 07/14/2023 Active Probiotic Acidophilus BioBeads Oral Capsule Take 1 Capsule by mouth in the morning and 1 Capsule at noon and 1 Capsule in the evening. Take with meals. 100 Capsule 3 07/15/2023 Active OneTouch Ultra In Vitro Strip (Glucose Blood)Indications: DM type 2, not at goal ([facility]) Please check patients blood sugar before lunch [...] at 8pm. 90 Tablet 11 09/02/2023 Active metFORMIN HCl 1000 MG Oral Tablet (Glucophage) TAKE 1 TABLET BY MOUTH TWICE DAILY WITH MEALS DM 56 Tablet 2 10/02/2023 Active Loratadine 10 MG Oral Tablet (Allergy Relief (Loratadine)) TAKE ONE TABLET BY MOUTH ONCE DAILY FOR ALLERGIES 28 Tablet 4 10/02/2023 Active Hospital, Clinic, or Other Facility Administered Medication Ordered Dose Route Frequency Start Date End Date Status Zinc Oxide (Desitin/Kevon) 40 % ointmentIndications:Skin ulcer of sacrum, unspecified ulcer stage ([facility]) TOP Daily(AM) 04/08/2022 Active Zinc Oxide (Desitin) 40 % pasteIndications:Open bite of buttock, unspecified laterality, initial encounter TOP BID (.AM/PM) 11/05/2022 Active documented as of this encounter (statuses as of 11/18/2023) Active Problems Problem Noted Date Diagnosed Date [...] as of this encounter (statuses as of 11/18/2023) Resolved Problems Problem Noted Date Diagnosed Date [...] Taxonomy. ACTIVE CASE MANAGEMENT Shanthi Dawson RN [phone] 05/20/2008 08/13/2010 Type 2 diabetes mellitus wit [...] as of this encounter (statuses as of 11/18/2023) Immunizations Name Administration Dates Next Due COVID-19 mRNA, LNP-s, No Pre serve, 2-Dose Series (Mustbin) 09/11/2021,12/20/2020,11/29/2020 Covid-19, Mrna, Lnp-s, Pf, B ivalent, 30 Mcg, IM, 12 yrs and above (Pfizer) 09/13/2022 H1N1 2009 Influenza, IM 09/04/2009 Hepatitis B, 20+ yrs 04/06/2014,11/05/19 14,09/29/2013,02/2012,07/23/2010 PPD 04/14/2023,,05/03/2019,04/27,06/10/2014,07/01/2012,07/02/20 11,06/28/2009,07/22/2007,01/08/2006,0 05/27/1998 06/30/2009 Pneumococcal Conjugate Vacc, 13 Valent (Prevnar) 09/22/2019 Pneumococcal Polysaccharide PPV23 (Pneumovax) 02/21/2021,08/13/2014,10/27/1997,10/1988 Seasonal Influenza, PF, 6 M & above, IM , (FluLaval or Fluzone) 07/28/2020,08/20/2018,08/21/2017 Seasonal Influenza, Quadriva lent Hd (Fluzone [...] the money to buy more. Never true 12/10/19 Within the past 12 months, t he food you bought just didn't last and you didn't have money to get more. Never true 12/10/2022 Sex and Gender Information Value Date Recorded Sex Assigned at Male 07/09/2022 11:29 AM EDT Gender Identity Male 07/09/2022 11:29 AM EDT Sexual Orientation Choose not to disclose 2021 11:29 AM EDT Job Start Date Occupation Industry Not on file Not on file Not on file documented as of this encounter Miscellaneous Notes * Telephone Encounter - Hardik Dyer OSA - 11/18/2023 9:11 AM EST Caller requesting the following information to be faxed: Name/Company of caller: [employer] Information requested to be faxed: Lab orders Fax number: [phone] Attention to Name/Company: [employer] Any additional information?: Pt gets labs done at [employer]. documented in this encounter Plan of Treatment Upcoming Encounters Date Type Department Care Team (Late st Contact Info) Description 11/26/2023 10:15 AM EST Imaging Radiology [facility] [address] [place] [address] 11/26/2023 1:40 PM EST Office Visit Nephrology, [place]ba Sargent [facility] [place] [address] Felecia Dooley MD [address] [place] [address] [place] [address] 12/11/2023 10:00 AM EST Imaging Radiology [address] [place] [address] 12/23/2023 11:30 AM EST Telemedicine Urology Elina IrbyHernan [address] [place] [address] Joseph Doty MD [address] [place] [address] 7, Telemed [facility] Urology Ex Rm [address] [place] [address] 03/10/2024 1:30 PM EDT Nurse Only Rheumatology [address] [place] [address] Pf, Nurse Rheum [address] [place] [address] [place] [address] 09/13/2024 2:00 PM EST Office Visit Rheumatology [address] [place] [address] [place] Saravia CRNP [address] [place] [address] [place] [address] Scheduled Procedures Name Priority Associated Diagnoses Date/Ti me COLONOSCOPY FLEXIBLE PROXIMAL DIAGNOSTIC Recall History of colon polyps Health Maintenance Due Date Last Done Comments Alpha-1 Antitrypsin 1972 Albumin/Creatinine Ratio 03/19/20232 022, 04/26/2020, 05/20/2019, Additional history exists Diabetic [...] D LEVEL ONCE IN A LIFETIME-USE SMARTSET# [id number] Completed 09/26/2022, 08/01/2022, 01/03/2021, Additional history exists LUNG CANCER SCREENING - USE SMARTSET [id number] Completed 11/22/2022, 11/20/2021, 09/04/2020, Additional history exists [...] filedocumented as of this encounter Care Teams Crime Victim Specialist Relationship Specialty Start Date End Date Andrew Montague III, MD [address] [place] [address] PCP - General 12/22/01 documented as of this encounter
[2023-11-18 18:28] LABS: Base Excess VBG -6.4 mEq/L; HCO3 VBG 22 mmol/L; Oxygen Saturation VBG 65.5 %; PCO2 VBG 55 mmHg (38-50); PO2 VBG 39 mmHg; pH VBG 7.21 (7.36-7.41)
[2023-11-18 19:11] LABS: Anion Gap 12 (3-11); Blood Urea Nitrogen 62 mg/dl (6-23); Calcium 8.8 mg/dl (8.6-10.3); Carbon Dioxide 22 mmol/L (21-32); Chloride 127 mmol/L (98-107); Est GFR (African American) 79.8 ml/min; Est GFR (Non-African American) 68.9 ml/min; Glucose Fasting 443 mg/dl (70-99); Potassium 3.7 mmol/L (3.5-5.1); Sodium 161 mmol/L (136-145); Troponin I High Sensitivity 74.9 pg/ml (0-20)
--- NOTE | 2023-11-18 19:34 | Critical Care Consultation ---
Date of Consultation November 18, 2023 Assessment & Plan (1) Acute hypernatremia: (2) Hyperglycemia due to type 2 diabetes mellitus: (3) Diastolic CHF, chronic: (4) Abnormal urinalysis: (5) Cerebral palsy: (6) Aortic stenosis: Plan Reason Critically Ill: 68 YOM with cerebral palsy [facility] resident admitted to hospital for hypernatremia, hyperglycemia and concern for UTI. To ICU for Hypernatremia with corrected starting NA of 168 and inital glucose of 523 Neuro - Hypernatremia, Cerebral Palsy CAM ICU: [facility] - Hypernatremia- Likely HHNK in setting of hyperglycemia as well. Either way- patient appears to be euvolemic at this time- - Correct hyperglycemia at this time, his HCO3 has been trending down and gap is borderline as well with ketones in urine supporting HHNK - Following correction of glucose and osmol/tonicity proceed as below - Free water deficit 4.2 liters from arrival labs and 1.7-2.1 liters for goal of 156-158 in 24 hours - Would expect serum sodium to increase as tonicity changes with insulin follow closely - Follow electrolytes, PH, NA level q2 then q4-6 when stabilized - Lactate is negative - Hold Urea - Follow urine output and urine osmol to make sure not central cause - Patient unlikely able to drink to thirst secondary to mental status, but can attempt water intake as offered- just will have to adjust infusion dose- likely keep NPO overnight as to not confound issue. - Nephrology appears to have been consulted by admitting team for hypernatremia as well- follow course overnight and can likely pass care over to primary team and nephrology in am. Cardiac - HFpEF, Elevated HsCTNI - Does not appear to be in acute failure at this time and chronic condition that is stable and with no current acute needs - Trend HsCTNI- likely demand at this time from likely hypovolemic/hyponatremia and elevated glucose levels Respiratory - COPD, TRINIDAD - No PFTs available for review - Continue ARPIT and Incruse Ellipta GI - No acute needs RENAL/LYTES - KRISTAL II, Mixed respiratory and metabolic acidosis - As above- likely pre-renal from hypovolemia - ICU electrolyte protocol. - Schedule albuterol consider CPAP - Follow HCO3 with correction of above- he is without gap and also with hyperchloremia of 127- lactate negative - Chronic Hayes - hayes exchanged in the EMD - no acute needs at this time as is draining ENDO - DMII, Elevated glucose likely HHNK - As above may have a component of HHNK await osmos and glucose levels following hydration - - Initiate insulin infusion - He is hyperosmolar will start insulin infusion at 0.05units/kg/hr- expect increase needed however do so slowly - Check PH and Bicarb level on arrival to the ICU -insulin infusion will be needed either way- adjust therapy goals as clinical picture progresses - Continue with Plasmalyte at 115 until glucose is in range- as above expect tonicity change to increase sodium levels - Once in goal will transition to D5W with KCL HEME -No acute needs ID - Initially there was concern for reported fever and possible UTI- Urine is without bacteria and appears as contaminant - Hold further antibiotics (espeically Zosyn with salt load) and follow clinical course- he is currently with no leukocytosis, no fever, negative PCT, and negative urine as well as CXR LINES/IV ACCESS - PIV, Hayes catheter Continue use of these lines DVT PROPHYLAXIS - SCDS, Heparin 5000 units BiD DISPO: ICU until NA and Glucose levels better controlled I have personally spent 50 minutes of critical care time in the direct management of this patient. This is a life/limb threatening event. This includes time spent evaluating patient, direct bedside care, chart review, placing orders, interpretation of diagnostic studies, discussion with consultants, patient, and family members, as well as other required patient management activities. This time is exclusive of all separately billable procedures, and teaching time and separate from and in addition to any other critical care service time. Thank you for allowing us to participate in the care of this patient. Please refer to my attending physician's documentation for any further recommendations. History of Present Illness Reason for Consultation: Hypernatremia/Hyperglycemia Requesting Physician: Prasad Calero MD Attending Physician: Galilea Parham MD History of Present Illness 68 YOM [facility] resident secodnary to mental disability of cerebral palsy. Medical history of: HFpEF, PAF (not on anticoagulation secondary to risk), PSVT, HTN, HLD, Klinefelter Syndrome, SIADH, DMII, COPD, GERD, TRINIDAD. Was transferred to the [facility] today [facility] for reports of fever, increased lethargy and concern for UTI in patient with chronic indwelling hayes catheter. He has been afebrile since his arrival to the [facility] and hayes catheter was changed out as well as urine speciment obtained. Initial labs were drawn with concern of hypernatremia with sodium of 158 and hyperglycemia to 523- His corrected sodium is 168. He was intravascularly repleted with 3liters of normal saline. He was also given ZOSYN for presumed UTI. His las labs are from 1245 this afternoon. ICU was consulted for admission at 1815 for concerns of his hypernatremia. Requested repeat BMP, Serum Osmo, Urine Osmo. Patient will be admitted to the ICU for close montioring of NA levels and correction of his hyperglycemia. Patient does carry history of actually HYPOnatremia which was diagnosed as SIADH on previous admission and has been on oral urea 15GM BID. Patient is nonverbal at baseline and is contracted. He is currently awake and is tracking me around the room. He appears to say hello and then starts to cry. Following his initial resuscitation patient appears Euvolemic on exam at this time with moist mucous membranes to include tongue and lips. His skin is warm and dry at this time as well as urine output is adequate. CODE: DNR/DNI Allergies Allergy/AdvReac Type Severity Reaction Status Date / Time lactose Allergy Intermediate GI SYMPTOMS Verified 11/18/23 16:19 aspirin Allergy Unknown UNKNOWN Verified 11/18/23 16:19 REACTION cephalexin Allergy Unknown UNKNOWN Verified 11/18/23 16:19 REACTION Cephalosporins Allergy Unknown UNKNOWN Verified 11/19/23 05:16 REACTION Corticosteroids Allergy Unknown UNKNOWN Verified 11/18/23 16:19 (Glucocorticoids) REACTION methylprednisolone Allergy Unknown UNKNOWN Verified 11/18/23 16:19 REACTION shellfish derived Allergy Unknown UNKNOWN Verified 11/18/23 16:19 REACTION Home Medications Medication Instructions Recorded Confirmed Type albuterol sulfate 90 mcg/actuation 2 puff inhalation Q4 PRN Shortness 10/16/23 11/18/23 Rx aerosol inhaler Of Breath Or Wheezing #6.7 grams bismuth subsalicylate 262 mg 1 tab PO Q12 PRN .UPSET STOMACH 10/16/23 11/18/23 Rx chewable tablet (Pepto-Bismol) #10 tabs carboxymethylcellulose sodium 0.5 1 drp OPB BID #15 mL 10/16/23 11/18/23 Rx % eye drops (Refresh Tears) cholecalciferol (vitamin D3) 25 25 mcg PO QAM #30 caps 10/16/23 11/18/23 Rx mcg (1,000 unit) capsule (Vitamin D3) clonazepam 0.5 mg tablet 0.5 mg PO TID #90 tabs 10/16/23 11/18/23 Rx finasteride 5 mg tablet 5 mg PO QAM #30 tabs 10/16/23 11/18/23 Rx gabapentin 300 mg capsule 300 mg PO TID #90 caps 10/16/23 11/18/23 Rx metformin 1,000 mg tablet 1,000 mg PO BID #60 tabs 10/16/23 11/18/23 Rx multivitamin 1 tab PO DAILY #30 tabs 10/16/23 11/18/23 Rx oxcarbazepine 300 mg tablet 300 mg PO BID #60 tabs 10/16/23 11/18/23 Rx pentoxifylline 400 mg 400 mg PO TID #90 tabs 10/16/23 11/18/23 Rx tablet,extended release quetiapine 100 mg tablet 100 mg PO BID #60 tabs 10/16/23 11/18/23 Rx sertraline 50 mg tablet 50 mg PO DAILY #30 tabs 10/16/23 11/18/23 Rx umeclidinium 62.5 mcg/actuation 1 inh inhalation DAILY #30 ea 10/16/23 11/18/23 Rx blister powder for inhalation (Incruse Ellipta) Frozen Nutritional Treat 1 cp PO QPM 11/18/23 11/18/23 History Saccharomyces boulardii 250 mg 250 mg PO QAM 11/18/23 11/18/23 History capsule (Florastor) acetaminophen 325 mg tablet 650 mg PO Q6H PRN fever or pain 11/18/23 11/18/23 History (Tylenol) acetaminophen 650 mg rectal 650 mg DE Q6H PRN PAIN/FEVER 11/18/23 11/18/23 History suppository dulaglutide 3 mg/0.5 mL 3 mg subcut WK 11/18/23 11/18/23 History subcutaneous pen injector (Trulicity) glimepiride 1 mg tablet 2 mg PO DAILY 11/18/23 11/18/23 History guaifenesin 100 mg/5 mL oral liquid 200 mg PO Q8H PRN Cough 11/18/23 11/18/23 History insulin lispro 100 unit/mL 1 sliding scale dose subcut 11/18/23 11/18/23 History subcutaneous solution (Humalog USEASDIRECTD PRN Hyperglycemia U-100 Insulin) loperamide 2 mg capsule (Imodium 2 mg PO Q8H PRN Diarrhea 11/18/23 11/18/23 History A-D) magnesium chloride 64 mg 64 mg PO BID 11/18/23 11/18/23 History (magnesium chloride) tablet,delayed release (Mag 64) ondansetron HCl 4 mg tablet 4 mg PO Q6H PRN NAUSEA/VOMITING 11/18/23 11/18/23 History promethazine 25 mg tablet 25 mg PO Q6H PRN NAUSEA/VOMITING 11/18/23 11/18/23 History promethazine 25 mg/mL injection 25 mg IM Q6H PRN NAUSEA/VOMITING 11/18/23 11/18/23 History solution (Phenergan) simethicone 80 mg chewable tablet 160 mg PO QID 11/18/23 11/18/23 History simvastatin 40 mg tablet 40 mg PO HS 11/18/23 11/18/23 History sucralfate 100 mg/mL oral 10 ml PO QID 11/18/23 11/18/23 History suspension (Carafate) tamsulosin 0.4 mg capsule 0.4 mg PO HS 11/18/23 11/18/23 History urea 15 gram oral powder packet 15 g PO BIDM 11/18/23 11/18/23 History (Ure-Na) Patient History Medical History Severe sepsis Pica Asthma Aortic stenosis Mild per 09/2021 ECHO TRINIDAD (obstructive sleep apnea) Per records Peroneal palsy DJD (degenerative joint disease) Neuropathy TMJ (temporomandibular joint disorder) Venous insufficiency History of COVID-19 Tested positive 09/21/21 [facility] ([facility]). Sinus congestion only. no hospitalization. No current problems. Hyperlipidemia Depression Anxiety Osteoporosis Scoliosis GERD (gastroesophageal reflux disease) Diabetes mellitus, type 2 Chronic obstructive pulmonary disease Well controlled > hasnt used res inh for 2 yrs Cerebral palsy Neck pain Hypotension Elevated troponin Hyperglycemia Presence of IVC filter Placed in 1997 per records TRINIDAD (obstructive sleep apnea) PVD (peripheral vascular disease) Diabetes mellitus, type II GERD (gastroesophageal reflux disease) COPD (chronic obstructive pulmonary disease) Intellectual disability Lives at [facility] facility Tibia fracture Pneumonia Hospital-acquired pneumonia Femoral condyle fracture CAP (community acquired pneumonia) Surgical History S/P cataract surgery Left and Right History of colonoscopy History of tooth extraction History of cholecystectomy Family History Father Coronary heart disease Social History Smoking Status: Former smoker packs per day: 30; Second Hand Exposure: No; Do You Dip or Chew Tobacco: No; Hx Alcohol Use: No Hx Substance Use: No Preferred Language: Malagasy Communication Ability: Effective Communication Ability Comment: MR LIVES AT [facility] Communication Tools: Other Visual Impairment: No Limitations Hearing Ability: Use of Hearing Aid Home Manager Required: No Beliefs That Will Affect Care: None marital status: Single marital status details: [facility] Current Living Situation: Personal Care Facility Current Living Situation Comment: [facility] current occupational status: disabled How many Children do You have: 0 Other Information That Helps Us Care for You: No Feels Safe at Home: Yes Safety Concerns: Feels Safe At This Time Diet: diabetic caffeine: No Assistive Devices: Mechanical Lift and Wheelchair Review of Systems Review of Systems: unable to perform secondary to mental disability. Physical Exam Physical Exam: PHYSICAL EXAM: General: awake when entering room- nonverbal at baseline ENT: PERRLA, follows me around the room, no pharyngeal exudate, mucous membra catalino moist Neuro: Awake- does make incomprehensible sounds which is his baseline, moves extremities although contracted Chest: equal rise and fall of the chest, no accessory muscle use, no heaves or thrills, Clear to auscultation, on room air, Cardiac: Regular rate and rhythm, telemetry reviewed- NSR, skin warm dry, cap refill <3 seconds, peripheral pusles +2 no JVD, no murmur GI: NABS x 4 quadrants, soft, : Hayes to gravity draining slime colored urine Skin: no rash or erythema Results & Data Results & Data Vital Signs (Past 12 Hours) Vital Signs Temp Pulse Pulse Resp BP BP Pulse Ox 11/18/23 18:30 106 H 17 111/75 100 11/18/23 18:15 106 H 30 H 101/47 L 100 11/18/23 18:00 104 H 30 H 89/48 L 94 11/18/23 17:45 109 H 27 H 92/49 L 93 11/18/23 17:30 110 H 16 89/43 L 93 11/18/23 17:15 110 H 22 87/52 L 92 11/18/23 17:10 110 H 38 H 91 11/18/23 17:00 96/60 L 11/18/23 17:00 110 H 27 H 97 11/18/23 16:50 106 H 18 97 11/18/23 16:47 109 H 11/18/23 16:45 113 H 22 98 11/18/23 16:45 106/65 11/18/23 16:40 108 H 27 H 99 11/18/23 16:30 107 H 16 99 11/18/23 16:30 115/88 11/18/23 16:20 110 H 18 99 11/18/23 16:15 93/53 L 11/18/23 16:15 109 H 31 H 98 11/18/23 16:10 113 H 15 99 11/18/23 16:01 112 H 24 98 11/18/23 15:50 116 H 25 H 98 11/18/23 15:45 118 H 18 98 11/18/23 15:45 98/58 L 11/18/23 15:40 117 H 22 98 11/18/23 15:30 115 H 27 H 99 11/18/23 15:30 93/59 L 11/18/23 15:20 115 H 18 97 11/18/23 15:15 115 H 21 98 11/18/23 15:15 90/52 L 11/18/23 15:10 124 H 21 97 11/18/23 15:00 88/38 L 11/18/23 15:00 117 H 24 97 11/18/23 14:50 121 H 22 99 11/18/23 14:45 91/56 L 11/18/23 14:45 115 H 19 99 11/18/23 14:40 117 H 28 H 97 11/18/23 14:32 119 H 19 97 11/18/23 14:32 82/61 L 11/18/23 14:30 120 H 16 97 11/18/23 14:30 81/51 L 11/18/23 14:20 117 H 18 97 11/18/23 14:15 120 H 18 97 11/18/23 14:15 95/47 L 11/18/23 14:10 122 H 20 97 11/18/23 14:00 98/61 L 11/18/23 14:00 120 H 25 H 98 11/18/23 13:50 123 H 22 98 11/18/23 13:45 122 H 25 H 98 11/18/23 13:45 102/58 L 11/18/23 13:40 123 H 23 98 11/18/23 13:30 100/48 L 11/18/23 13:30 144 H 22 98 11/18/23 13:20 141 H 14 98 11/18/23 13:15 143 H 35 H 97 11/18/23 13:15 90/70 L 11/18/23 13:13 130 H 21 98 11/18/23 13:13 99/72 L 11/18/23 13:10 137 H 16 97 11/18/23 13:06 152 H 11/18/23 13:03 99/63 L 11/18/23 13:03 136 H 16 97 11/18/23 13:03 136 H 20 99/63 L 97 11/18/23 13:03 136 H 96 11/18/23 13:00 144 H 25 H 97 11/18/23 12:50 152 H 25 H 97 11/18/23 12:49 113/78 11/18/23 12:49 134 H 15 97 11/18/23 12:46 135 H 14 97 11/18/23 12:45 37.1 C 150 H 20 115/72 97 O2 Del Method O2 Flow Rate 11/18/23 18:30 Nasal Cannula 2 11/18/23 18:15 Nasal Cannula 2 11/18/23 18:00 Nasal Cannula 2 11/18/23 17:45 Nasal Cannula 2 11/18/23 17:30 Nasal Cannula 2 11/18/23 17:15 Nasal Cannula 2 11/18/23 17:10 Nasal Cannula 2 11/18/23 17:00 11/18/23 17:00 Nasal Cannula 2 11/18/23 16:50 Nasal Cannula 2 11/18/23 16:47 11/18/23 16:45 Nasal Cannula 2 11/18/23 16:45 11/18/23 16:40 Nasal Cannula 2 11/18/23 16:30 Nasal Cannula 2 11/18/23 16:30 11/18/23 16:20 Nasal Cannula 2 11/18/23 16:15 11/18/23 16:15 Nasal Cannula 2 11/18/23 16:10 Nasal Cannula 2 11/18/23 16:01 Nasal Cannula 2 11/18/23 15:50 Nasal Cannula 2 11/18/23 15:45 Nasal Cannula 2 11/18/23 15:45 11/18/23 15:40 Nasal Cannula 2 11/18/23 15:30 Nasal Cannula 2 11/18/23 15:30 11/18/23 15:20 Nasal Cannula 2 11/18/23 15:15 Nasal Cannula 2 11/18/23 15:15 11/18/23 15:10 Nasal Cannula 2 11/18/23 15:00 11/18/23 15:00 Nasal Cannula 2 11/18/23 14:50 Nasal Cannula 2 11/18/23 14:45 11/18/23 14:45 Nasal Cannula 2 11/18/23 14:40 Nasal Cannula 2 11/18/23 14:32 Nasal Cannula 2 11/18/23 14:32 11/18/23 14:30 Nasal Cannula 2 11/18/23 14:30 11/18/23 14:20 Nasal Cannula 2 11/18/23 14:15 Nasal Cannula 2 11/18/23 14:15 11/18/23 14:10 Nasal Cannula 2 11/18/23 14:00 11/18/23 14:00 Nasal Cannula 2 11/18/23 13:50 Nasal Cannula 2 11/18/23 13:45 11/18/23 13:45 11/18/23 13:40 11/18/23 13:30 11/18/23 13:30 11/18/23 13:20 11/18/23 13:15 11/18/23 13:15 11/18/23 13:13 11/18/23 13:13 11/18/23 13:10 11/18/23 13:06 11/18/23 13:03 11/18/23 13:03 11/18/23 13:03 Nasal Cannula 2 11/18/23 13:03 Nasal Cannula 2 11/18/23 13:00 11/18/23 12:50 11/18/23 12:49 11/18/23 12:49 11/18/23 12:46 11/18/23 12:45 Nasal Cannula 2 Laboratory Results Abnormal lab results 11/18/23 11/18/23 11/18/23 Range/Units 12:45 14:01 14:36 RBC 4.06 L (4.70-6.10) M/uL Hgb 12.6 L (14.0-18.0) g/dl MCV 105.2 H (80.0-100.0) fL MCHC 29.5 L (32.0-36.0) g/dL RDW Std Deviation 54.9 H (36.4-46.3) fL Neut # (Auto) 7.83 H (1.40-6.50) K/uL VBG pH (7.36-7.41) VBG pCO2 (38-50) mmHg Sodium 158 H* (136-145) mmol/L Chloride 118 H (98-107) mmol/L Anion Gap 17 H (3-11) BUN 76 H (6-23) mg/dl BUN/Creatinine Ratio 55.5 H (10-20) Glucose 523 H* (70-99(Fasting)) mg/dl POC Glucose (70-99) mg/dl Calcium 10.6 H (8.6-10.3) mg/dl Alkaline Phosphatase 151 H (34-104) U/L Troponin I High Sens 57.7 H* 64.5 H* (0-20) pg/ml Urine Appearance Cloudy A (Clear) Urine Protein 2+ H (Negative) Urine Glucose (UA) 3+ H (Negative) Urine Ketones 2+ H (Negative) Urine Blood 3+ H (Negative) Ur Leukocyte Esterase 2+ H (Negative) Urine WBC (Auto) >30 H (0-5) /hpf Urine RBC (Auto) 10-30 H (0-4) /hpf U Epithel Cells (Auto) 10-20 H (0-5) /lpf 11/18/23 11/18/23 11/18/23 Range/Units 16:01 16:32 18:15 RBC (4.70-6.10) M/uL Hgb (14.0-18.0) g/dl MCV (80.0-100.0) fL MCHC (32.0-36.0) g/dL RDW Std Deviation (36.4-46.3) fL Neut # (Auto) (1.40-6.50) K/uL VBG pH 7.22 L 7.21 L (7.36-7.41) VBG pCO2 55 H (38-50) mmHg Sodium (136-145) mmol/L Chloride (98-107) mmol/L Anion Gap (3-11) BUN (6-23) mg/dl BUN/Creatinine Ratio (10-20) Glucose (70-99(Fasting)) mg/dl POC Glucose 351 H* (70-99) mg/dl Calcium (8.6-10.3) mg/dl Alkaline Phosphatase (34-104) U/L Troponin I High Sens (0-20) pg/ml Urine Appearance (Clear) Urine Protein (Negative) Urine Glucose (UA) (Negative) Urine Ketones (Negative) Urine Blood (Negative) Ur Leukocyte Esterase (Negative) Urine WBC (Auto) (0-5) /hpf Urine RBC (Auto) (0-4) /hpf U Epithel Cells (Auto) (0-5) /lpf Diagnostic Findings Chest X-Ray 11/18/23 12:34 XR chest 1V portable HISTORY: 68 years-old Male Sepsis acute sepsis COMPARISON: 09/26/2023 TECHNIQUE: AP view of the chest FINDINGS: Cardiac silhouette is enlarged. Pulmonary vascular congestion. No pneumothorax, pleural effusion or overt pulmonary edema. Mild subsegmental left basilar densities. Partially imaged IVC filter. Sigmoidal scoliosis of the spine. Chronic right-sided rib fractures. The patient is rotated. IMPRESSION: 1. Cardiomegaly with pulmonary vascular congestion. 2. Subsegmental left basilar opacities are similar to prior, likely atelectatic. ACT 112: Negative or not required by law. The above report was generated using voice recognition software. It may contain grammatical, syntax or spelling errors. Electronically signed by: Bradley Whalen M.D. 11/18/2023 1:45 PM Medications Administered Discontinued Medications Sodium Chloride (Nss) 1,000 mls @ 999 mls/hr IV .Q1H1M SEN Stop: 11/18/23 13:45 Last Infusion: 11/18/23 15:42 Dose: Infused Documented By: Admin: 11/18/23 13:12 Dose: 999 mls/hr Documented By: ML Sodium Chloride (Nss) 1,000 mls @ 999 mls/hr IV .Q1H1M ONE Stop: 11/18/23 14:06 Last Infusion: 11/18/23 15:00 Dose: Infused Documented By: Admin: 11/18/23 13:09 Dose: 999 mls/hr Documented By: ML Piperacillin Sod/Tazobactam Sod (Zosyn) 4.5 gm in 100 mls @ 200 mls/hr IV NOW ONE Stop: 11/18/23 15:37 Last Infusion: 11/18/23 16:13 Dose: Infused Documented By: Admin: 11/18/23 15:30 Dose: 200 mls/hr Documented By: AMS Sodium Chloride (Nss) 1,000 mls @ 999 mls/hr IV .Q1H1M SEN Stop: 11/18/23 18:30 Last Admin: 11/18/23 16:49 Dose: 999 mls/hr Documented By: Infusion: 11/18/23 16:49 Dose: Infused Documented By: Admin: 11/18/23 16:34 Dose: 999 mls/hr Documented By: YESSI Insulin Human Regular (Novolin-R Insulin Per Unit Charge) 5 units IV NOW STA Stop: 11/18/23 15:11 Last Admin: 11/18/23 15:29 Dose: 5 units Documented By: YESSI Co-signed By: GURWINDER Coding Level of Care Code 01846 CRITICAL CARE 1ST 30-74M Diagnoses Acute hypernatremia E87.0 Hyperglycemia due to type 2 diabetes mellitus E11.65 Diastolic CHF, chronic I50.32 Abnormal urinalysis R82.90 Cerebral palsy G80.9 Aortic stenosis I35.0
[2023-11-18] MEDS ORDERED: CARBOHYDRATES FOR HYPOGLYCEMIA PO PRN (19:41)
[2023-11-18] MEDS ORDERED: GLUCAGON FOR INJ 1 MG VIAL SQ PRN (19:41)
[2023-11-18] MEDS ORDERED: POTASSIUM CHLORIDE 20 MEQ/15 ML UDC PO STA (19:41)
[2023-11-18] MEDS ORDERED: GLUCOSE 10 TAB/TUBE PO PRN (19:41)
[2023-11-18] MEDS ORDERED: DEXTROSE 50% 50 ML SYRINGE IV PRN (19:41)
[2023-11-18] MEDS ORDERED: ONDANSETRON INJ 2 MG/ML 2 ML VIAL IV PRN (19:41)
[2023-11-18] MEDS ORDERED: INSULIN ASPART PER UNIT CHARGE SC SCH (19:41)
[2023-11-18] MEDS ORDERED: STAT IV Infusion **Titration per Protocol STA (19:48)
[2023-11-18] MEDS ORDERED: PHARMACY GLYCEMIC MGMT CONSULT PRN (19:48)
[2023-11-18] MEDS ORDERED: POTASSIUM CHLORIDE 20 MEQ in DEXTROSE 5% 500 ML IV SCH (20:00)
[2023-11-18] MEDS ORDERED: INSULIN REGULAR 250 UNITS in SODIUM CHLORIDE 0.9% 247.5 ML IV SCH (20:00)
[2023-11-18] MEDS ORDERED: ALBUTEROL HFA 8 GM INHALER INH SCH (20:15)
[2023-11-18] MEDS: TAMSULOSIN HCL 0.4 MG CAP PO SCH (20:35)
[2023-11-18] MEDS: SUCRALFATE 1 GM/10 ML UDC PO SCH (20:35)
[2023-11-18] MEDS: SIMVASTATIN 40 MG TAB PO SCH (20:36)
[2023-11-18] MEDS: SIMETHICONE 80 MG CHEW PO SCH (20:37)
[2023-11-18] MEDS: QUEtiapine FUMARATE 100 MG TABLET PO SCH (20:38)
[2023-11-18] MEDS: OXcarbazepine 150 MG TABLET PO SCH (20:39)
[2023-11-18] MEDS: PENTOXIFYLLINE 400MG EXT REL TAB PO SCH (20:39)
[2023-11-18] MEDS: MAGNESIUM CHLORIDE W/CALCIUM 64MG DELAYED REL TAB PO SCH (20:40)
[2023-11-18] MEDS: GABAPENTIN 300 MG CAP PO SCH (20:41)
[2023-11-18] MEDS ORDERED: PIPERACILLIN/TAZOBACTAM 4.5 GM in DEXTROSE 5% MINI-B 100 ML IV SCH (21:00)
[2023-11-18] MEDS: INSULIN ASPART PER UNIT CHARGE SC SCH (21:06)
[2023-11-18] MEDS: ARTIFICIAL TEARS OP SCH (21:23)
[2023-11-18] MEDS: ALBUTEROL 0.083% NEBU SOLN 3 ML VIAL NEB SCH (21:37)
[2023-11-18] MEDS ORDERED: PLASMA-LYTE A 500 ML IV ONE (21:40)
[2023-11-18] MEDS ORDERED: PLASMA-LYTE A 1,000 ML IV SCH (22:15)
[2023-11-18 22:35] LABS: BUN Creatinine Ratio 52.9 (10-20); Calcium 8.6 mg/dl (8.6-10.3); Creatinine Clr Calc Pharmacy 51.3 ml/min; Est GFR (African American) 86.5 ml/min; Est GFR (Non-African American) 74.6 ml/min; Magnesium 1.7 mg/dl (1.7-2.4); Phosphorus 3.9 mg/dl (2.5-4.9); Potassium 3.9 mmol/L (3.5-5.1)
[2023-11-18 23:21] LABS: Calcium 8.3 mg/dl (8.6-10.3); Creatinine Clr Calc Pharmacy 54.5 ml/min; Est GFR (African American) 93.1 ml/min; Est GFR (Non-African American) 80.3 ml/min; Potassium 4.8 mmol/L (3.5-5.1)
[2023-11-18 23:24] LABS: iSTAT Allen Test Pass; iSTAT Art Bld Gas pCO2 Correct 44 mmHg (35-46); iSTAT Art Bld Gas pH Corrected 7.277 (7.35-7.45); iSTAT Arterial Blood Gas HCO3 21 meg/L (19-24); iSTAT Arterial Blood Gas pCO2 45 mmHg (35-46); iSTAT Arterial Blood Gas pH 7.27 (7.35-7.45); iSTAT Arterial Blood Gas pO2 137 mmHg (80-95); iSTAT Arterial Blood Gas pO2 C 134; iSTAT Carbon Dioxide 22 mmol/L (24-31); iSTAT Hematocrit 27 % (42-52); iSTAT Hemoglobin 9.2 g/dl (14.0-18.0); iSTAT Potassium 4.2 mmol/L (3.3-5.0); iSTAT Site L Radial; iSTAT Sodium 156 mmol/L (135-144)
[2023-11-18] MEDS: MAGNESIUM SULFATE / D5W 1 GM/100 ML BAG IV SCH (23:48)
[2023-11-19] MEDS: ALBUTEROL 0.083% NEBU SOLN 3 ML VIAL NEB SCH ×4 (00:51→20:10)
[2023-11-19 01:10] LABS: BUN Creatinine Ratio 49.4 (10-20); Calcium 8.2 mg/dl (8.6-10.3); Creatinine Clr Calc Pharmacy 58.8 ml/min; Est GFR (African American) 101.1 ml/min; Est GFR (Non-African American) 87.2 ml/min; Magnesium 1.7 mg/dl (1.7-2.4); Potassium 3.9 mmol/L (3.5-5.1); Troponin I High Sensitivity 72.3 pg/ml (0-20)
[2023-11-19] MEDS ORDERED: POTASSIUM CHLORIDE 20 MEQ/15 ML UDC PO STA ×2 (01:10→05:57)
[2023-11-19] MEDS ORDERED: POTASSIUM PHOS 3 MMOL/1 ML INFUSION IV STA (01:15)
[2023-11-19] MEDS ORDERED: POTASSIUM PHOSPHATE 6 MMOL in 0.9 % SODIUM CHLORIDE 100 ML IV ONE (01:30)
[2023-11-19] MEDS: MAGNESIUM SULFATE / D5W 1 GM/100 ML BAG IV SCH (01:36)
[2023-11-19] MEDS: POTASSIUM CHLORIDE 40 MEQ in DEXTROSE 5% 1,000 ML IV SCH ×2 (02:04→14:19)
[2023-11-19] MEDS ORDERED: POTASSIUM CHLORIDE 40 MEQ in DEXTROSE 5% 1,000 ML IV SCH (02:30)
[2023-11-19 03:30] LABS: A calco-baum cmplx NotReported Not Detected (NotDetected); Bact fragilis Not Reported Not Detected (NotDetected); Blood Culture Id Panel See PCR Comment (NotDetected); C auris Not Reported Not Detected (NotDetected); CTX-M Resistant Gene Not Detected (NotDetected); Calbicans Not Reported Not Detected (NotDetected); Candida glabrata Not Reported Not Detected (NotDetected); Candida krusei Not Reported Not Detected (NotDetected); Cneoformans/gatti Not Reported Not Detected (NotDetected); Cparapsilosis Not Reported Not Detected (NotDetected); E cloacae compx Not Reported Not Detected (NotDetected); Efaecalis Not Reported Not Detected (NotDetected); Efaecium Not Reported Not Detected (NotDetected); Enterobacterales DETECTED (NotDetected); Enterobacterales Not Reported DETECTED (NotDetected); Escherichia coli Not Reported Not Detected (NotDetected); H influenzae Not Reported Not Detected (NotDetected); IMP Resistant Gene Not Detected (NotDetected); K aerogenes Not Reported Not Detected (NotDetected); KPC Resistant Gene Not Detected (NotDetected); Koxytoca Not Reported Not Detected (NotDetected); Kpneumoniae grp Not Reported DETECTED (NotDetected); Lmonocyt Not Reported Not Detected (NotDetected); N meningitidis Not Reported Not Detected (NotDetected); NDM Resistant Gene Not Detected (NotDetected); OXA 48 Like Resistant Gene Not Detected (NotDetected); P aeruginosa Not Reported Not Detected (NotDetected); Proteus spp Not Reported Not Detected (NotDetected); Salmonella spp Not Reported Not Detected (NotDetected); Smarcescens Not Reported Not Detected (NotDetected); Staph lugdunensis Not Reported Not Detected (NotDetected); Staph spp. Not Reported Not Detected (NotDetected); Staphaureus Not Reported Not Detected (NotDetected); Staphepi Not Reported Not Detected (NotDetected); Stenmaltophilia Not Reported Not Detected (NotDetected); Strep agal(GrpB) Not Reported Not Detected (NotDetected); Strep pneum Not Reported Not Detected (NotDetected); Strep pyog (GrpA) Not Reported Not Detected (NotDetected); Strep spp Not Reported Not Detected (NotDetected); VIM Resistant Gene Not Detected (NotDetected); mcr-1 Colistin Resistant Gene Not Detected (NotDetected)
[2023-11-19 04:05] LABS: Klebsiella pneumoniae group DETECTED (NotDetected)
[2023-11-19 05:06] LABS: Hematocrit (blood only) 32.1 % (42.0-52.0); Hemoglobin 9.4 g/dl (14.0-18.0); Mean Corpuscular Hemoglobin 31.2 pg (25.0-34.0); Mean Corpuscular Hgb Conc 29.3 g/dL (32.0-36.0); Mean Corpuscular Volume 106.6 fL (80.0-100.0); Mean Platelet Volume 10.6 fL (9.4-12.4); Platelet Count 152 K/uL (130-400); RDW Coefficient of Variation 14.1 % (11.5-14.5); RDW Standard Deviation 55.3 fL (36.4-46.3); Red Blood Count 3.01 M/uL (4.70-6.10); White Blood Count 9.56 K/ul (4.8-10.8)
--- NOTE | 2023-11-19 05:14 | Communication Note ---
Date of Service: November 19, 2023 Blood Culture preliminary with GNB- enterobacterales species with BCID of K. pneumoniae- which was noted in urine in Oct 07. Will place patient on Ro cephin 2GM IV q24. Allergy list reviewed with Pharmacy, Cephlasporin allergy has been listed for extended period of time, and he has received Rocephin in the past without difficulties. Angel Luis RAMOS ([facility])
[2023-11-19 05:20] LABS: BUN Creatinine Ratio 51.3 (10-20); Calcium 8.2 mg/dl (8.6-10.3); Creatinine Clr Calc Pharmacy 78.6 ml/min; Est GFR (African American) 107.9 ml/min; Est GFR (Non-African American) 93.1 ml/min; Magnesium 2.3 mg/dl (1.7-2.4); Phosphorus 2.8 mg/dl (2.5-4.9); Potassium 4.1 mmol/L (3.5-5.1)
[2023-11-19] MEDS: cefTRIAXone SODIUM 2,000 MG in DEXTROSE 5 % MINI-B 50 ML IV SCH (05:22)
--- NOTE | 2023-11-19 07:13 | Critical Care Progress Note ---
Date of Service November 19, 2023 Assessment & Plan (1) Acute hypernatremia: (2) Hyperglycemia due to type 2 diabetes mellitus: (3) Diastolic CHF, chronic: (4) Abnormal urinalysis: (5) Cerebral palsy: (6) Aortic stenosis: Plan Reason Critically Ill: 68 YOM with cerebral palsy [facility] resident admitted to hospital for hypernatremia, hyperglycemia and concern for UTI. To ICU for Hypernatremia with corrected starting NA of 168 and inital glucose of 523 Neuro - Cerebral Palsy CAM ICU: KINZA --Mental status seems to be back to his baseline - Hypernatremia- Likely HHNK in setting of hyperglycemia as well. - Lactate is negative - Hold Urea Cardiac - HFpEF, Elevated HsCTNI - Does not appear to be in acute failure at this time and chronic condition that is stable and with no current acute needs - Trend HsCTNI- likely demand at this time from likely hypovolemic/hyponatremia and elevated glucose levels -- Shock Likely from hypovolemia Responded to fluids Random cortisol 14 Respiratory - COPD, TRINIDAD - No PFTs available for review - Continue ARPIT and Incruse Ellipta GI - No acute needs RENAL/LYTES - SRAVANTHI II, hypernatremia --Hypernatremia Hyperosmolar, Hypovolemic Urine osmolality 654, serum muscularity and 51 Follow-up urine sodium Free water deficit 3.9 L. Replace at least half of it in the next 24 hours with D5 water - ICU electrolyte protocol. - Schedule albuterol consider CPAP - Chronic Blue - Blue exchanged in the ED - no acute needs at this time as is draining ENDO - DMII, Elevated glucose likely HHNK -- Insulin drip till we are back to normal osmolality HEME -- Macrocytic anemia Continue to monitor ID - -- Gram-negative bacteremia Klebsiella as per the [employer] Was pansensitive in the urine on the last admission Continue with Rocephin Procalcitonin 0.22 --DNR/DNI --Prophylaxis VTE: IPC GI: None Lines: Peripheral Diet: Cardiac Plan: In/out: +7.9 L, urine output 1225 Continue with D5 water with 40 of KCl at 85 mL/h. Once the patient is off insulin drip get rid of KCl. Goal sodium for the first 24 hours is 158. For the next 24 hours would be 150 Continue with Rocephin for gram-negative bacilli Would recommend to repeat blood culture in 48 hours Will look at patient's trajectory as well as sodium going forward. If the sodium is going down at the expected range, will change the frequency of BMP to q. 8 Case was discussed with primary team I have personally spent 35 minutes of critical care time in the direct management of this patient. This is a life/limb threatening event. This includes time spent evaluating patient, direct bedside care, chart review, placing orders, interpretation of diagnostic studies, discussion with consultants, patient, and family members, as well as other required patient management activities. This time is exclusive of all separately billable procedures, and teaching time and separate from and in addition to any other critical care service time. Thank you for allowing us to participate in the care of this patient. Please refer to my attending physician's documentation for any further recommendations. Admission and Anticipated Discharge Date Admission Date: November 18, 2023 Subjective Patient seen and examined at bedside. No acute distress, no adverse events overnight He is nonverbal. But does not yes and no to certain questions Denied any chest pain, no abdominal pain. Did complain of mild headache Was able to tolerate diet in the morning. His MAP was in the high 60s off of vasopressors. Review of Systems 2 Review of Systems: All systems reviewed & are unremarkable except as noted in HPI & below Physical Exam 2 Physical Exam: Constitutional: No acute distress HEENT: EOMI, PERRLA Respiratory system: Decreased air entry bilaterally, no wheeze, rhonchi, mild crackles bilateral lower lobes CVS: S1-S2 positive, no murmurs or gallops Abdomen: Soft, nontender, nondistended, positive bowel sounds x4 Extremities: +2 pulses bilaterally radialis/ dorsalis pedis, no cyanosis, no edema Neuro: Wake and oriented Psych: Normal mood and affect G/U: Positive chronic Blue Skin: no rashes, warm and dry Lymphatic: no cervical or axillary lymphadenopathy Results & Data Results & Data Vital Signs (Past 12 Hours) Vital Signs Temp Pulse Pulse Resp BP BP BP 11/19/23 05:00 95/48 L 11/19/23 05:00 83 18 11/19/23 04:38 36.7 C 11/19/23 04:02 100/56 L 11/19/23 04:02 85 19 11/19/23 04:00 100/56 L 11/19/23 04:00 85 14 11/19/23 03:00 87 15 11/19/23 03:00 103/60 11/19/23 02:00 103/61 11/19/23 02:00 95 H 16 11/19/23 01:00 101/61 11/19/23 01:00 87 16 11/19/23 01:00 36.6 C 11/19/23 00:51 18 11/19/23 00:08 102/61 11/19/23 00:02 89 17 11/19/23 00:00 102/61 11/19/23 00:00 88 17 11/18/23 23:00 101 H 16 11/18/23 23:00 115/58 L 11/18/23 22:57 99 H 11/18/23 22:17 37 C 11/18/23 22:00 102 H 15 122/62 11/18/23 21:37 18 11/18/23 21:00 110 H 21 121/56 L 11/18/23 20:14 36.7 C 118 H 30 H 107/67 11/18/23 20:00 11/18/23 20:00 36.8 C 108 H 17 133/65 11/18/23 19:41 Pulse Ox Pulse Ox O2 Del Method O2 Del Method O2 Flow Rate O2 Flow Rate 11/19/23 05:00 11/19/23 05:00 100 11/19/23 04:38 11/19/23 04:02 11/19/23 04:02 100 11/19/23 04:00 11/19/23 04:00 100 11/19/23 03:00 100 11/19/23 03:00 11/19/23 02:00 11/19/23 02:00 99 11/19/23 01:00 11/19/23 01:00 100 11/19/23 01:00 11/19/23 00:51 100 Nasal Cannula 3 11/19/23 00:08 11/19/23 00:02 100 11/19/23 00:00 11/19/23 00:00 100 11/18/23 23:00 89 L 11/18/23 23:00 11/18/23 22:57 11/18/23 22:17 11/18/23 22:00 11/18/23 21:37 100 Nasal Cannula 3 11/18/23 21:00 99 11/18/23 20:14 99 Nasal Cannula 3 11/18/23 20:00 Nasal Cannula 2 11/18/23 20:00 100 Nasal Cannula 2 11/18/23 19:41 99 Nasal Cannula 2 Laboratory Results 11/19/23 04:15 11/19/23 04:15 Coding Level of Care Code 11973 CRITICAL CARE 1ST 30-74M Diagnoses Acute hypernatremia E87.0 Hyperglycemia due to type 2 diabetes mellitus E11.65 Diastolic CHF, chronic I50.32 Abnormal urinalysis R82.90 Cerebral palsy G80.9 Aortic stenosis I35.0
[2023-11-19] MEDS: FINASTERIDE 5 MG TAB PO SCH (08:04)
[2023-11-19] MEDS: ARTIFICIAL TEARS OP SCH ×2 (08:04→20:39)
[2023-11-19] MEDS: CHOLECALCIFEROL 25 MCG (1000 UNITS) TAB PO SCH (08:04)
[2023-11-19] MEDS: GABAPENTIN 300 MG CAP PO SCH ×3 (08:04→20:41)
[2023-11-19] MEDS: MAGNESIUM CHLORIDE W/CALCIUM 64MG DELAYED REL TAB PO SCH ×2 (08:05→20:40)
[2023-11-19] MEDS: OXcarbazepine 150 MG TABLET PO SCH ×2 (08:09→20:42)
[2023-11-19] MEDS: PENTOXIFYLLINE 400MG EXT REL TAB PO SCH ×3 (08:09→20:40)
[2023-11-19] MEDS: MULTIVITAMIN TAB PO SCH (08:09)
[2023-11-19] MEDS: SACCHAROMYCES BOULARDII 250 MG CAP PO SCH (08:09)
[2023-11-19] MEDS: SERTRALINE HCL 50 MG TABLET PO SCH (08:09)
[2023-11-19] MEDS: UMECLIDINIUM BROMIDE 62.5MCG/BLISTER 7 PUFFS/INHALER INH SCH (08:09)
[2023-11-19] MEDS: QUEtiapine FUMARATE 100 MG TABLET PO SCH ×2 (08:09→20:41)
[2023-11-19] MEDS: SIMETHICONE 80 MG CHEW PO SCH ×4 (08:09→20:39)
[2023-11-19] MEDS: SUCRALFATE 1 GM/10 ML UDC PO SCH ×4 (08:09→20:43)
[2023-11-19] MEDS: INSULIN ASPART PER UNIT CHARGE SC SCH ×4 (08:21→20:36)
[2023-11-19 08:46] LABS: Magnesium 2.1 mg/dl (1.7-2.4)
[2023-11-19 08:51] LABS: Phosphorus 2.7 mg/dl (2.5-4.9)
[2023-11-19] MEDS ORDERED: LANTUS PER UNIT CHARGE SC ONE (10:30)
[2023-11-19 11:03] LABS: BUN Creatinine Ratio 45.8 (10-20); Calcium 8.5 mg/dl (8.6-10.3); Est GFR (African American) 110.3 ml/min; Est GFR (Non-African American) 95.2 ml/min; Potassium 4.4 mmol/L (3.5-5.1)
--- NOTE | 2023-11-19 11:11 | Electrocardiogram Report ---
Test Reason : Blood Pressure : / mmHG Vent. Rate : 143 BPM Atrial Rate : 000 BPM P-R Int : 000 ms QRS Dur : 098 ms QT Int : 306 ms P-R-T Axes : 000 038 086 degrees QTc Int : 472 ms Atrial fibrillation with rapid ventricular response with premature ventricular or aberrantly conducte d complexes Incomplete right bundle branch block Marked ST abnormality, possible anterior subendocardial injury Abnormal ECG Confirmed by Sreedhar Dowling ([id number]) on 11/19/2023 11:11:00 AM Referred By: REFERRED SELF Confirmed By:Evan Dowling
--- NOTE | 2023-11-19 11:25 | Electrocardiogram Report ---
Test Reason : Blood Pressure : / mmHG Vent. Rate : 086 BPM Atrial Rate : 086 BPM P-R Int : 166 ms QRS Dur : 106 ms QT Int : 394 ms P-R-T Axes : 004 038 045 degrees QTc Int : 471 ms Poor data quality, interpretation may be adversely affected Sinus rhythm with Premature atrial complexes Incomplete right bundle branch block Nonspecific T wave abnormality Abnormal ECG When compared with ECG of 18-NOV-2023 12:35, (unconfirmed) Significant changes have occurred Confirmed by Sreedhar Dowling ([id number]) on 11/19/2023 11:25:17 AM Referred By: REFERRED SELF Confirmed By:Evan Dowling
--- NOTE | 2023-11-19 11:52 | Nephrology Consultation ---
Date of Consultation November 19, 2023 Assessment & Plan (1) Acute hypernatremia: He has Serum na of 161 even when his glucose was 523 so true na was much higher. He has massive fluid deficit and at this severe level hard /not accurate to even measure. he needs D5W a lot. Given his small size, h/o CHF and already received so much NS/RL no need to try to correct Na quick. he will need few days to get it to normal. Agree with no urea. encourage PO fluid and food. BMP can be done q12. Continue D5w at 80ml/hr (2) Hyperglycemia due to type 2 diabetes mellitus: On insulin drip (3) UTI (urinary tract infection): On Abx currently. History of Present Illness Reason for Consultation: Hypernatremia Attending Physician: Edison Lara MD History of Present Illness 68/M with Cerebral palsy, who presents from SNF for complaints of fever, increased lethargy and UTI. He had a fever of 101.8, UA showed urine with +4 bacteria, and therefore he was sent via ambulance to the hospital here today with worsening lethargy. He has a chronic indwelling Blue catheter which was changed upon presentation to the ER today. na was very high at 161. He was recently hospitalized from 09/16 to 10/16/2023 for hyponatremia as well as Klebsiella UTI. He initially at that time presented with abdominal pain, chest pain and diarrhea. And it was thought that this was due to suspected ileus related to gastroenteritis. This prolonged hospital stay was complicated by hyponatremia secondary to SIADH worsened with the use of diuretics, Lasix, which was held and placed on urea 15 g twice daily as well as fluid restriction and 1.5 L fluid daily. He was allowed to use salt on his food and high-protein diet and was followed by nephrology at that time. He was discharged to [facility] and has been there since. was getting urea at the SNF. Since admission he has got about 5 liters of NS/RL--for low BP and volume depletion. Just got started on D5w. na has not dropped much so far and is still 159. Sugar was 523 on admission and now is normal on Insulin drip. ROS--Non verbal from Cerebral palsy. Physical Exam Physical Exam: General: awake, alert, no apparent distress, nonverbal, cerebral palsy, diffuse muscle wasting. Chronic Ill and cacehctic mucous membranes are very dry Chest: Clear to auscultation, on 3L via NC, Cardiac: Irregularly irregular, rate controlled, loud holosystolic murmur with radiation to carotids, no JVD, normal peripheral pulses, good capillary refill Abdominal: NABS x 4 quadrants, soft, nondistended, nontender to palpation, no rebound or guarding Extremities: Left lower extremity with chronic peripheral vascular skin changes, no peripheral edema or erythema, calfs nontender to palpation Skin: Skin turgor is poor Psych: Normal mood and affect pleasant Allergies Allergy/AdvReac Type Severity Reaction Status Date / Time lactose Allergy Intermediate GI SYMPTOMS Verified 11/18/23 16:19 aspirin Allergy Unknown UNKNOWN Verified 11/18/23 16:19 REACTION cephalexin Allergy Unknown UNKNOWN Verified 11/18/23 16:19 REACTION Cephalosporins Allergy Unknown UNKNOWN Verified 11/19/23 05:16 REACTION Corticosteroids Allergy Unknown UNKNOWN Verified 11/18/23 16:19 (Glucocorticoids) REACTION methylprednisolone Allergy Unknown UNKNOWN Verified 11/18/23 16:19 REACTION shellfish derived Allergy Unknown UNKNOWN Verified 11/18/23 16:19 REACTION Home Medications Medication Instructions Recorded Confirmed Type albuterol sulfate 90 mcg/actuation 2 puff inhalation Q4 PRN Shortness 10/16/23 11/18/23 Rx aerosol inhaler Of Breath Or Wheezing #6.7 grams bismuth subsalicylate 262 mg 1 tab PO Q12 PRN .UPSET STOMACH 10/16/23 11/18/23 Rx chewable tablet (Pepto-Bismol) #10 tabs carboxymethylcellulose sodium 0.5 1 drp OPB BID #15 mL 10/16/23 11/18/23 Rx % eye drops (Refresh Tears) cholecalciferol (vitamin D3) 25 25 mcg PO QAM #30 caps 10/16/23 11/18/23 Rx mcg (1,000 unit) capsule (Vitamin D3) clonazepam 0.5 mg tablet 0.5 mg PO TID #90 tabs 10/16/23 11/18/23 Rx finasteride 5 mg tablet 5 mg PO QAM #30 tabs 10/16/23 11/18/23 Rx gabapentin 300 mg capsule 300 mg PO TID #90 caps 10/16/23 11/18/23 Rx metformin 1,000 mg tablet 1,000 mg PO BID #60 tabs 10/16/23 11/18/23 Rx multivitamin 1 tab PO DAILY #30 tabs 10/16/23 11/18/23 Rx oxcarbazepine 300 mg tablet 300 mg PO BID #60 tabs 10/16/23 11/18/23 Rx pentoxifylline 400 mg 400 mg PO TID #90 tabs 10/16/23 11/18/23 Rx tablet,extended release quetiapine 100 mg tablet 100 mg PO BID #60 tabs 10/16/23 11/18/23 Rx sertraline 50 mg tablet 50 mg PO DAILY #30 tabs 10/16/23 11/18/23 Rx umeclidinium 62.5 mcg/actuation 1 inh inhalation DAILY #30 ea 10/16/23 11/18/23 Rx blister powder for inhalation (Incruse Ellipta) Frozen Nutritional Treat 1 cp PO QPM 11/18/23 11/18/23 History Saccharomyces boulardii 250 mg 250 mg PO QAM 11/18/23 11/18/23 History capsule (Florastor) acetaminophen 325 mg tablet 650 mg PO Q6H PRN fever or pain 11/18/23 11/18/23 History (Tylenol) acetaminophen 650 mg rectal 650 mg NH Q6H PRN PAIN/FEVER 11/18/23 11/18/23 History suppository dulaglutide 3 mg/0.5 mL 3 mg subcut WK 11/18/23 11/18/23 History subcutaneous pen injector (Trulicity) glimepiride 1 mg tablet 2 mg PO DAILY 11/18/23 11/18/23 History guaifenesin 100 mg/5 mL oral liquid 200 mg PO Q8H PRN Cough 11/18/23 11/18/23 History insulin lispro 100 unit/mL 1 sliding scale dose subcut 11/18/23 11/18/23 History subcutaneous solution (Humalog USEASDIRECTD PRN Hyperglycemia U-100 Insulin) loperamide 2 mg capsule (Imodium 2 mg PO Q8H PRN Diarrhea 11/18/23 11/18/23 History A-D) magnesium chloride 64 mg 64 mg PO BID 11/18/23 11/18/23 History (magnesium chloride) tablet,delayed release (Mag 64) ondansetron HCl 4 mg tablet 4 mg PO Q6H PRN NAUSEA/VOMITING 11/18/23 11/18/23 History promethazine 25 mg tablet 25 mg PO Q6H PRN NAUSEA/VOMITING 11/18/23 11/18/23 History promethazine 25 mg/mL injection 25 mg IM Q6H PRN NAUSEA/VOMITING 11/18/23 11/18/23 History solution (Phenergan) simethicone 80 mg chewable tablet 160 mg PO QID 11/18/23 11/18/23 History simvastatin 40 mg tablet 40 mg PO HS 11/18/23 11/18/23 History sucralfate 100 mg/mL oral 10 ml PO QID 11/18/23 11/18/23 History suspension (Carafate) tamsulosin 0.4 mg capsule 0.4 mg PO HS 11/18/23 11/18/23 History urea 15 gram oral powder packet 15 g PO BIDM 11/18/23 11/18/23 History (Ure-Na) Patient History Medical History Severe sepsis Pica Asthma Aortic stenosis Mild per 09/2021 ECHO TRINIDAD (obstructive sleep apnea) Per records Peroneal palsy DJD (degenerative joint disease) Neuropathy TMJ (temporomandibular joint disorder) Venous insufficiency History of COVID-19 Tested positive 09/21/21 [facility] Sinus congestion only. no hospitalization. No current problems. Hyperlipidemia Depression Anxiety Osteoporosis Scoliosis GERD (gastroesophageal reflux disease) Diabetes mellitus, type 2 Chronic obstructive pulmonary disease Well controlled > hasnt used res inh for 2 yrs Cerebral palsy Neck pain Hypotension Elevated troponin Hyperglycemia Presence of IVC filter Placed in 1997 per records TRINIDAD (obstructive sleep apnea) PVD (peripheral vascular disease) Diabetes mellitus, type II GERD (gastroesophageal reflux disease) COPD (chronic obstructive pulmonary disease) Intellectual disability [facility] at [facility] Tibia fracture Pneumonia Hospital-acquired pneumonia Femoral condyle fracture CAP (community acquired pneumonia) Surgical History S/P cataract surgery Left and Right History of colonoscopy History of tooth extraction History of cholecystectomy Family History Father Coronary heart disease Social History Smoking Status: Former smoker packs per day: 30; Second Hand Exposure: No; Do You Dip or Chew Tobacco: No; Hx Alcohol Use: No Hx Substance Use: No Preferred Language: Liberian Communication Ability: Effective Communication Ability Comment: [facility] Communication Tools: Other Visual Impairment: No Limitations Hearing Ability: Use of Hearing Aid Guest Services Manager Required: No Beliefs That Will Affect Care: None marital status: Single marital status details: [facility] Current Living Situation: Personal Care Facility Current Living Situation Comment: correction current occupational status: disabled How many Children do You have: 0 Other Information That Helps Us Care for You: No Feels Safe at Home: Yes Safety Concerns: Feels Safe At This Time Diet: diabetic caffeine: No Assistive Devices: Mechanical Lift and Wheelchair Results & Data Vital Signs (Past 12 Hours) Vital Signs Temp Pulse Pulse Resp BP Pulse Ox O2 Del Method 11/19/23 11:00 117/66 11/19/23 11:00 83 14 94 11/19/23 10:00 83 20 90 11/19/23 09:42 104/60 11/19/23 09:42 84 15 95 11/19/23 09:18 Nasal Cannula 11/19/23 09:00 83 17 94 11/19/23 09:00 84/48 L 11/19/23 08:52 90/53 L 11/19/23 08:52 84 17 100 11/19/23 08:00 86/56 L 11/19/23 08:00 83 19 100 11/19/23 08:00 36.4 C L 11/19/23 07:15 85 20 98 Nasal Cannula 11/19/23 07:00 80 22 11/19/23 07:00 109/54 L 11/19/23 05:00 95/48 L 11/19/23 05:00 83 18 100 11/19/23 04:38 36.7 C 11/19/23 04:02 100/56 L 11/19/23 04:02 85 19 100 11/19/23 04:00 100/56 L 11/19/23 04:00 85 14 100 11/19/23 03:00 87 15 100 11/19/23 03:00 103/60 11/19/23 02:00 103/61 11/19/23 02:00 95 H 16 99 11/19/23 01:00 101/61 11/19/23 01:00 87 16 100 11/19/23 01:00 36.6 C 11/19/23 00:51 18 100 Nasal Cannula 11/19/23 00:08 102/61 11/19/23 00:02 89 17 100 11/19/23 00:00 102/61 11/19/23 00:00 88 17 100 O2 Flow Rate 11/19/23 11:00 11/19/23 11:00 11/19/23 10:00 11/19/23 09:42 11/19/23 09:42 11/19/23 09:18 11/19/23 09:00 11/19/23 09:00 11/19/23 08:52 11/19/23 08:52 11/19/23 08:00 11/19/23 08:00 11/19/23 08:00 11/19/23 07:15 2 11/19/23 07:00 11/19/23 07:00 11/19/23 05:00 11/19/23 05:00 11/19/23 04:38 11/19/23 04:02 11/19/23 04:02 11/19/23 04:00 11/19/23 04:00 11/19/23 03:00 11/19/23 03:00 11/19/23 02:00 11/19/23 02:00 11/19/23 01:00 11/19/23 01:00 11/19/23 01:00 11/19/23 00:51 3 11/19/23 00:08 11/19/23 00:02 11/19/23 00:00 11/19/23 00:00
[2023-11-19 12:45] LABS: BUN Creatinine Ratio 40.3 (10-20); Calcium 8.3 mg/dl (8.6-10.3); Est GFR (African American) 110.3 ml/min; Est GFR (Non-African American) 95.2 ml/min; Potassium 4.8 mmol/L (3.5-5.1)
[2023-11-19] MEDS ORDERED: INSULIN ASPART PER UNIT CHARGE SC ONE ×2 (12:45→22:00)
--- NOTE | 2023-11-19 12:55 | Pharmacy Report ---
Pharmacy Glycemic Short Note 2 - Date of Service November 19, 2023 - Glycemic Short BSG Results (Last 24 hours): 11/18/23 11/18/23 11/18/23 12:45 16:32 18:15 Glucose 523 H* POC Glucose 351 H* Fasting Glucose 443 H* 11/18/23 11/18/23 11/18/23 19:43 20:49 21:30 Glucose 442 H* POC Glucose 384 H* 428 H* Fasting Glucose 11/18/23 11/18/23 11/18/23 22:32 22:37 23:28 Glucose 417 H* POC Glucose 382 H* 391 H* Fasting Glucose 11/19/23 11/19/23 11/19/23 00:25 00:32 01:26 Glucose 307 H* POC Glucose 294 H 222 H Fasting Glucose 307 H* 11/19/23 11/19/23 11/19/23 02:26 04:02 04:15 Glucose 161 H POC Glucose 158 H 150 H Fasting Glucose 11/19/23 11/19/23 11/19/23 05:06 06:09 07:55 Glucose POC Glucose 151 H 141 H 84 Fasting Glucose 11/19/23 11/19/23 11/19/23 08:16 08:16 08:30 Glucose 89 Cancelled POC Glucose 97 Fasting Glucose 11/19/23 11/19/23 11/19/23 09:24 10:30 11:34 Glucose POC Glucose 150 H 168 H 189 H Fasting Glucose 11/19/23 11/19/23 12:26 12:29 Glucose POC Glucose 295 H 289 H Fasting Glucose OUTPATIENT ANTIDIABETIC REGIMEN: * glimepiride 3 mg PO qd, insulin lispro SST ACHS, metformin 1 gm BID * A1c 7.5% 10/02/23 ASSESSMENT: * Patient admitted to ICU with hypernatremia, hyperglycemia, K. pneumoniae bacte remia (likely urine source). Blood sugars corrected overnight with insulin infusion. Serum osmol still elevated with Na in the 150s- slow correction and patient is currently on D5W + 40 Kcl @85 ml/hr * Insulin infusion rate reduced to 1 unit/hr with a blood sugar of 84 mg/dL. Patient is now ordered diet and eating. Per flat ironer okay to transition off of insulin infusion * 15 units of basal given to help transition, unfortunately BSGs had trended upward to 289 mg/dL. Will give 3 additional units of novolog and discontinue infusion when back in goal range. * Set Novolog parameters weight based stress of 2. Reviewed previous admission in September basal doses ranged from 6 to 12 units. PLAN FOR INPATIENT GLYCEMIC CONTROL: * Hold outpatient oral diabetes medications * Basal insulin * Lantus 15 units x 1- further doses to be determined * Insulin infusion will continue until 1630 or 2 consecutive BSGs within goal range; current goal range 120-180 mg/dL * Bolus insulin- to start at 1630 * NovoLog per scale ACHS or Q6hrs while NPO * Goal Range: Low 110 mg/dL - High 160 mg/dL * Correction Factor: 40 mg/dL/unit * Nutritional / Prandial insulin per carb ratio of 1 unit per 11 grams CHO consumed
[2023-11-19] MEDS: DEXTROSE 5% 1,000 ML IV SCH (14:53)
--- NOTE | 2023-11-19 15:09 | Hospitalist Progress Note ---
Date of Service November 19, 2023 Assessment & Plan (1) Hypernatremia: Plan 68-year-old male with PMH of chronic diastolic CHF, PAF/not on anticoagulation due to fall risk, PSVT, mild , HTN, HLD, cerebral palsy, nonverbal, intel lectual disability, Klinefelter syndrome, hyperprolactinemia, mood disorder, SIADH, T2DM, COPD, GERD, TRINIDAD, PVD presented from SNF for complaints of fever and increased lethargy and concern for UTI. He was reported to have had a fever of 101.8F, UA was performed prior to arrival which was suggestive of UTI. Of note, he has chronic indwelling Blue catheter which was changed upon presentation to the ED. He is being managed for the following: Likely Catheter associated UTI Sepsis POA: Likely secondary to above. Respiratory rate and pulse rate elevated at presentation. Lactate and procalcitonin WNL. Gram-negative bacilli bacteremia: Likely secondary to UTI Patient presented from SNF due to increasing lethargy/fever and concern for UTI. History of Klebsiella UTI in September 2023, resistant to Bactrim and nitrofurantoin, sensitive to all other agents Admitting urine culture inconclusive, sent repeat urine culture 11/19 Admitting blood culture preliminary positive for GNB, follow final Status post IV fluid resuscitation 11/18. Patient received Zosyn 11/18, changed to Rocephin 11/19, continue. Follow repeat blood culture 11/19. Urine catheter changed in 11/18. ID consult, await recs. Hemodynamics more stable. Blood pressure more stable. Likely demand ischemia: Troponin elevated at presentation, fairly flat trended. Likely secondary to acute sepsis. Admitting EKG with A-fib with RVR. Back to sinus rhythm per EKG 11/19. Continue telemetry monitoring. Dehydration: likely 2/2 poor po intake 2/2 underlying comorbidities including nonverbal status/cerebral palsy/intellectual disability. Severe hyponatremia Admitting sodium of 158, corrected is even higher with hyperglycemia at presentation. At presentation, patient was dry on exam. Status post 5 L IV fluid resuscitation at presentation today. Encourage p.o. food and fluid. Home urea discontinued. Nephrology on board, D5W at 80 mL an hour. Monitor BMP closely. Acute kidney injury: Likely prerenal secondary to dehydration. Baseline creatinine around 0.6, admitting creatinine of 1.37. Status post IV fluid. Resolved. T2DM and likely DKA at presentation: Urinary ketones +ve, AG elevated at admission. s/p insulin infusion, glycemic pharmacy on board. Glucose levels better controlled now. Resume home Trulicity, metformin and amaryl on discharge. Other chronic medical conditions: Continue with/resume home meds as and when able Cerebral palsy/intellectual disability -history of status, chronic, stable. Continue home sertraline/Seroquel/oxcarbazepine/gabapentin. Had a speech evaluation during last stay: Alternate solids, liquids supervised meals, be fully alert and upright, oral hygiene. Aortic stenosis/IVC filter in situ/chronic diastolic CHF: 2022 TTE with EF of 60 to 65%, chronic, stable. Lasix was stopped during recent hospitalization due to SIADH and hyponatremia. Was dehydrated at presentation, appears euvolemic now, monitor volume status. Paroxysmal A-fib: not on anticoagulation due to fall risk. Metoprolol stopped due to bradycardia during last hospital stay Chronic obstructive pulmonary disease: Hx of such. Stable. Continue Delaney and Incruse Ellipta. Anemia: Chronic, stable. DVT prophylaxis: Teds, SCDs CODE STATUS: Full Dispo: PT/OT, CM to assist with DC plan. Admission and Anticipated Discharge Date Admission Date: November 18, 2023 Subjective Patient was seen and examined at bedside. Patient was sitting up in bed, on 1 L oxygen via nasal cannula, NAD. Per RN, patient is eating okay and moving bowels okay, no concern of blood in the stool. No new acute event overnight. Patient appears tired and lethargic, ROS not able due to cognition status. Of note, patient appears to be in some kind of distress all the time which is his baseline per prior admitting notes. Physical Exam Physical Exam: GENERAL: awake, tired/lethargic/weak/frail appearing. NAD, on 1 L O2 via NC. Not able to cooperate. incomprehensible speech. HEENT: No pallor, no icterus. Pupils equal, round and reactive to light. Oral mucosa moist. NECK: No JVD, no neck masses. HEART: S1 and S2 heard. Regular rate and rhythm. No murmur, no gallop. RESPIRATORY SYSTEM: Normal AP diameter. No accessory muscle use. No wheezing, no crackles. decreased breath sounds (? d/t not being able to cooperate w/ exam) ABDOMEN: Soft, bowel sounds present, nontender, no distention. CENTRAL NERVOUS SYSTEM: No facial droop. Moves extremities. EXTREMITIES: No edema, no erythema seen. Results & Data Results & Data Vital Signs (Past 12 Hours) Vital Signs Temp Pulse Pulse Resp BP Pulse Ox O2 Del Method 11/19/23 12:34 82 18 97 Room Air 11/19/23 11:00 117/66 11/19/23 11:00 83 14 94 11/19/23 10:00 83 20 90 11/19/23 09:42 104/60 11/19/23 09:42 84 15 95 11/19/23 09:18 Nasal Cannula 11/19/23 09:00 83 17 94 11/19/23 09:00 84/48 L 11/19/23 08:52 90/53 L 11/19/23 08:52 84 17 100 11/19/23 08:00 86/56 L 11/19/23 08:00 83 19 100 11/19/23 08:00 36.4 C L 11/19/23 07:15 85 20 98 Nasal Cannula 11/19/23 07:00 80 22 11/19/23 07:00 109/54 L 11/19/23 05:00 95/48 L 11/19/23 05:00 83 18 100 11/19/23 04:38 36.7 C 11/19/23 04:02 100/56 L 11/19/23 04:02 85 19 100 11/19/23 04:00 100/56 L 11/19/23 04:00 85 14 100 11/19/23 03:00 87 15 100 11/19/23 03:00 103/60 O2 Flow Rate 11/19/23 12:34 11/19/23 11:00 11/19/23 11:00 11/19/23 10:00 11/19/23 09:42 11/19/23 09:42 11/19/23 09:18 11/19/23 09:00 11/19/23 09:00 11/19/23 08:52 11/19/23 08:52 11/19/23 08:00 11/19/23 08:00 11/19/23 08:00 11/19/23 07:15 2 11/19/23 07:00 11/19/23 07:00 11/19/23 05:00 11/19/23 05:00 11/19/23 04:38 11/19/23 04:02 11/19/23 04:02 11/19/23 04:00 11/19/23 04:00 11/19/23 03:00 11/19/23 03:00
[2023-11-19] MEDS ORDERED: INSULIN INFUSION~PENDING ORDER SCH (16:00)
[2023-11-19 16:52] LABS: BUN Creatinine Ratio 40.3 (10-20); Calcium 8.5 mg/dl (8.6-10.3); Creatinine Clr Calc Pharmacy 89.2 ml/min; Est GFR (African American) 113.6 ml/min; Phosphorus 2.3 mg/dl (2.5-4.9); Potassium 4.5 mmol/L (3.5-5.1)
[2023-11-19] MEDS: SIMVASTATIN 40 MG TAB PO SCH (20:41)
[2023-11-19] MEDS: TAMSULOSIN HCL 0.4 MG CAP PO SCH (20:43)
[2023-11-19 21:35] LABS: BUN Creatinine Ratio 44.4 (10-20); Creatinine Clr Calc Pharmacy 94.9 ml/min; Est GFR (African American) 116.5 ml/min; Est GFR (Non-African American) 100.5 ml/min; Potassium 4.9 mmol/L (3.5-5.1)
[2023-11-19] MEDS ORDERED: INSULIN HUMAN REGULAR PER UNIT 5 UNITS in SYRINGE 4.95 ML IV ONE (22:30)
[2023-11-19] MEDS ORDERED: ALBUTEROL 0.083% NEBU SOLN 3 ML VIAL ONE (23:43)
[2023-11-20] MEDS: INSULIN ASPART PER UNIT CHARGE SC SCH ×6 (00:21→20:48)
[2023-11-20] MEDS: ALBUTEROL 0.083% NEBU SOLN 3 ML VIAL NEB SCH ×4 (00:44→20:09)
[2023-11-20 01:25] LABS: BUN Creatinine Ratio 42.4 (10-20); Calcium 8.2 mg/dl (8.6-10.3); Creatinine Clr Calc Pharmacy 101.3 ml/min; Est GFR (African American) 119.7 ml/min; Est GFR (Non-African American) 103.3 ml/min; Potassium 4.2 mmol/L (3.5-5.1)
[2023-11-20] MEDS ORDERED: INSULIN ASPART PER UNIT CHARGE SC ONE (02:00)
[2023-11-20] MEDS: cefTRIAXone SODIUM 2,000 MG in DEXTROSE 5 % MINI-B 50 ML IV SCH (04:33)
[2023-11-20 04:59] LABS: Hematocrit (blood only) 32.4 % (42.0-52.0); Hemoglobin 9.4 g/dl (14.0-18.0); Mean Corpuscular Hemoglobin 30.5 pg (25.0-34.0); Mean Corpuscular Volume 105.2 fL (80.0-100.0); Mean Platelet Volume 10.6 fL (9.4-12.4); Platelet Count 124 K/uL (130-400); RDW Standard Deviation 54.2 fL (36.4-46.3); Red Blood Count 3.08 M/uL (4.70-6.10); White Blood Count 6.35 K/ul (4.8-10.8)
[2023-11-20 05:11] LABS: BUN Creatinine Ratio 40.7 (10-20); Calcium 8.1 mg/dl (8.6-10.3); Creatinine Clr Calc Pharmacy 110.8 ml/min; Est GFR (African American) 124.2 ml/min; Est GFR (Non-African American) 107.1 ml/min; Potassium 4.3 mmol/L (3.5-5.1)
[2023-11-20] MEDS: ARTIFICIAL TEARS OP SCH ×2 (08:17→19:43)
[2023-11-20] MEDS: CHOLECALCIFEROL 25 MCG (1000 UNITS) TAB PO SCH (08:18)
[2023-11-20] MEDS: FINASTERIDE 5 MG TAB PO SCH (08:18)
[2023-11-20] MEDS: GABAPENTIN 300 MG CAP PO SCH ×3 (08:19→19:37)
[2023-11-20] MEDS: MAGNESIUM CHLORIDE W/CALCIUM 64MG DELAYED REL TAB PO SCH ×2 (08:19→19:38)
[2023-11-20] MEDS: MULTIVITAMIN TAB PO SCH (08:20)
[2023-11-20] MEDS: OXcarbazepine 150 MG TABLET PO SCH ×2 (08:20→19:37)
[2023-11-20] MEDS: QUEtiapine FUMARATE 100 MG TABLET PO SCH ×2 (08:21→19:38)
[2023-11-20] MEDS: SACCHAROMYCES BOULARDII 250 MG CAP PO SCH (08:21)
[2023-11-20] MEDS: PENTOXIFYLLINE 400MG EXT REL TAB PO SCH ×3 (08:21→19:37)
[2023-11-20] MEDS: SERTRALINE HCL 50 MG TABLET PO SCH (08:22)
[2023-11-20] MEDS: SUCRALFATE 1 GM/10 ML UDC PO SCH ×4 (08:32→19:37)
[2023-11-20] MEDS: UMECLIDINIUM BROMIDE 62.5MCG/BLISTER 7 PUFFS/INHALER INH SCH (08:32)
[2023-11-20] MEDS: SIMETHICONE 80 MG CHEW PO SCH ×4 (08:32→19:38)
[2023-11-20] MEDS ORDERED: LANTUS PER UNIT CHARGE SC SCH (09:00)
[2023-11-20] MEDS ORDERED: LANTUS PER UNIT CHARGE SC ONE (09:00)
[2023-11-20 09:05] LABS: BUN Creatinine Ratio 36.5 (10-20); Calcium 8.4 mg/dl (8.6-10.3); Creatinine Clr Calc Pharmacy 115.1 ml/min; Est GFR (African American) 126.1 ml/min; Est GFR (Non-African American) 108.8 ml/min; Potassium 4.4 mmol/L (3.5-5.1)
[2023-11-20] MEDS: LANTUS PER UNIT CHARGE SC SCH (09:05)
--- NOTE | 2023-11-20 09:30 | Pharmacy Report ---
Pharmacy Glycemic Short Note 2 - Date of Service November 20, 2023 - Glycemic Short BSG Results (Last 24 hours): 11/19/23 11/19/23 11/19/23 08:16 08:16 09:24 Glucose 89 Cancelled POC Glucose 150 H 11/19/23 11/19/23 11/19/23 10:30 11:34 12:10 Glucose 252 H POC Glucose 168 H 189 H 11/19/23 11/19/23 11/19/23 12:26 12:29 13:33 Glucose POC Glucose 295 H 289 H 239 H 11/19/23 11/19/23 11/19/23 14:28 15:30 16:17 Glucose POC Glucose 179 H 136 H 129 H 11/19/23 11/19/23 11/19/23 16:22 20:00 20:01 Glucose 140 H POC Glucose 369 H* 377 H* 11/19/23 11/19/23 11/20/23 20:40 22:05 00:15 Glucose 418 H* POC Glucose 355 H* 218 H 11/20/23 11/20/23 11/20/23 00:50 03:22 04:36 Glucose 209 H 122 H POC Glucose 126 H 11/20/23 11/20/23 07:48 08:24 Glucose 175 H POC Glucose 170 H OUTPATIENT ANTIDIABETIC REGIMEN: * glimepiride 3 mg PO qd, insulin lispro SST ACHS, metformin 1 gm BID * A1c 7.5% 10/02/23 ASSESSMENT: 11/20: * Isai received 60 units of insulin yesterday (15 were basal, 34 units from insulin infusion overnight, 5 units regular insulin IV bolus, and 11 units of Novolog as bolus) * Drip transition was successful yesterday evening, but did require a regular insulin IV bolus of 5 units at 2200 and then 3 units of Novolog at 0000 check. * Fasting BSG slightly elevated this morning, will add the 3 units given last night at 0000 to the daily basal dosage. * Historically he required anywhere from 15-25 units of insulin per day while inpatient. He was on a dextrose infusion until yesterday afternoon which was likely contributing to increased insulin needs yesterday. BSGs were historically very labile with episodes of hypoglycemia/hyperglycemia. Will make adjustments cautiously. CDE also reports outpatient BSGs recently significantly elevated with minimal hypoglycemia per notes. * Will tighten carbohydrate ratio slightly in an attempt to prevent prandial hyperglycemia, consider increasing goal range based on response to regimen. Correction factor tightened yesterday evening, will continue to monitor, appears that he is correcting adequately 11/19: * Patient admitted to ICU with hypernatremia, hyperglycemia, K. pneumoniae bacteremia (likely urine source). Blood sugars corrected overnight with insulin infusion. Serum osmol still elevated with Na in the 150s- slow co rrection and patient is currently on D5W + 40 Kcl @85 ml/hr * Insulin infusion rate reduced to 1 unit/hr with a blood sugar of 84 mg/dL. Patient is now ordered diet and eating. Per contracting officer okay to transition off of insulin infusion * 15 units of basal given to help transition, unfortunately BSGs had trended upward to 289 mg/dL. Will give 3 additional units of novolog and discontinue infusion when back in goal range. * Set Novolog parameters weight based stress of 2. Reviewed previous admission in September basal doses ranged from 6 to 12 units. PLAN FOR INPATIENT GLYCEMIC CONTROL: * Hold outpatient oral diabetes medications * Basal insulin * Lantus 18 units SQ daily * Bolus insulin * NovoLog per scale ACHS or Q6hrs while NPO * Goal Range: Low 110 mg/dL - High 160 mg/dL * Correction Factor: 30 mg/dL/unit * Nutritional / Prandial insulin per carb ratio of 1 unit per 8 grams CHO consumed
--- NOTE | 2023-11-20 14:28 | Nephrology Progress Note ---
Date of Service November 20, 2023 Assessment & Plan Admission and Anticipated Discharge Date Admission Date: November 18, 2023 Subjective Assessment & Plan (1) Acute hypernatremia: He has Serum na of 161 even when his glucose was 523 so true na was much higher. He has massive fluid deficit and at this severe level hard /not accurate to even measure. he needs D5W a lot. Given his small size, h/o CHF and already received so much NS/RL no need to try to correct Na quick. he will need few days to get it to normal. Agree with no urea. encourage PO fluid and food. BMP can be done daily at this point Continue D5w at 80ml/hr S---- now moved out of ICU. Sodium is improving but still not normal. patient is Non verbal from Cerebral palsy. Physical Exam Physical Exam: General: awake, alert, no apparent distress, nonverbal, cerebral palsy, diffuse muscle wasting. Chronic Ill and cacehctic mucous membranes are very dry Chest: Clear to auscultation, on 3L via NC, Cardiac: Irregularly irregular, rate controlled, loud holosystolic murmur with radiation to carotids, no JVD, normal peripheral pulses, good capillary refill Abdominal: NABS x 4 quadrants, soft, nondistended, nontender to palpation, no rebound or guarding Extremities: Left lower extremity with chronic peripheral vascular skin changes, no peripheral edema or erythema, calfs nontender to palpation Skin: Skin turgor is poor Psych: Normal mood and affect pleasant Results & Data Vital Signs (Past 12 Hours) Vital Signs Temp Pulse Pulse Resp BP Pulse Ox O2 Del Method 11/20/23 12:52 84 20 96 Room Air 11/20/23 11:04 37.1 C 96 H 19 93/52 L 96 Room Air 11/20/23 08:03 74 15 97 Room Air 11/20/23 07:32 36.3 C L 67 16 95/56 L 96 Room Air 11/20/23 03:51 102/52 L 11/20/23 03:00 71 15 91 11/20/23 03:00 36.8 C 91/52 L 11/20/23 02:30 69 15 98 FiO2 11/20/23 12:52 11/20/23 11:04 11/20/23 08:03 21 11/20/23 07:32 11/20/23 03:51 11/20/23 03:00 11/20/23 03:00 11/20/23 02:30
--- NOTE | 2023-11-20 16:48 | Hospitalist Progress Note ---
Date of Service November 20, 2023 Assessment & Plan (1) Hypernatremia: Plan 68-year-old male with PMH of chronic diastolic CHF, PAF/not on anticoagulation due to fall risk, PSVT, mild , HTN, HLD, cerebral palsy, nonverbal, intel lectual disability, Klinefelter syndrome, hyperprolactinemia, mood disorder, SIADH, T2DM, COPD, GERD, TRINIDAD, PVD presented from SNF for complaints of fever and increased lethargy and concern for UTI. He was reported to have had a fever of 101.8F, UA was performed prior to arrival which was suggestive of UTI. Of note, he has chronic indwelling Blue catheter which was changed upon presentation to the ED. He is being managed for the following: Likely Catheter associated UTI Sepsis POA: Likely secondary to above. Respiratory rate and pulse rate elevated at presentation. Lactate and procalcitonin WNL. Gram-negative bacilli bacteremia: Likely secondary to UTI Patient presented from SNF due to increasing lethargy/fever and concern for UTI. History of Klebsiella UTI in September 2023, resistant to Bactrim and nitrofurantoin, sensitive to all other agents Admitting urine culture inconclusive, sent repeat urine culture 11/19 Admitting blood culture preliminary positive for GNB, follow final Status post IV fluid resuscitation 11/18. Patient received Zosyn 11/18, changed to Rocephin 11/19, continue. Follow repeat blood culture 11/19. Urine catheter changed in 11/18. ID consult, await recs. Hemodynamics more stable. Blood pressure at his baseline. Likely demand ischemia: Troponin elevated at presentation, fairly flat trended. Likely secondary to acute sepsis. Admitting EKG with A-fib with RVR. Back to sinus rhythm per EKG 11/19. Continue telemetry monitoring. Dehydration: likely 2/2 poor po intake 2/2 underlying comorbidities including nonverbal status/cerebral palsy/intellectual disability. Severe hyponatremia Admitting sodium of 158, corrected is even higher with hyperglycemia at presentation. At presentation, patient was dry on exam. Status post 5 L IV fluid resuscitation at presentation today. Encourage p.o. food and fluid. Home urea discontinued. Nephrology on board, D5W at 80 mL an hour. Monitor BMP closely. Na improving. labs in am. Acute kidney injury: Likely prerenal secondary to dehydration. Baseline c reatinine around 0.6, admitting creatinine of 1.37. Status post IV fluid. Resolved. T2DM and likely DKA at presentation: Urinary ketones +ve, AG elevated at admission. s/p insulin infusion, glycemic pharmacy on board. Glucose levels better controlled now. Resume home Trulicity, metformin and amaryl on discharge. Other chronic medical conditions: Continue with/resume home meds as and when able Cerebral palsy/intellectual disability -history of status, chronic, stable. Continue home sertraline/Seroquel/oxcarbazepine/gabapentin. Had a speech evaluation during last stay: Alternate solids, liquids supervised meals, be fully alert and upright, oral hygiene. Aortic stenosis/IVC filter in situ/chronic diastolic CHF: 2022 TTE with EF of 60 to 65%, chronic, stable. Lasix was stopped during recent hospitalization due to SIADH and hyponatremia. Was dehydrated at presentation, appears euvolemic now, monitor volume status. Paroxysmal A-fib: not on anticoagulation due to fall risk. Metoprolol stopped due to bradycardia during last hospital stay Chronic obstructive pulmonary disease: Hx of such. Stable. Continue Delaney and Incruse Ellipta. Anemia: Chronic, stable. DVT prophylaxis: Teds, SCDs CODE STATUS: Full Dispo: PT/OT, CM to assist with DC plan. Admission and Anticipated Discharge Date Admission Date: November 18, 2023 Subjective Patient was seen and examined at bedside. Patient was sitting up in bed, on RA, NAD. Per RN, patient is eating okay and No new acute event overnight. Patient appears more awake today, ROS not able due to cognition status. Of note, patient appears to be in some kind of distress all the time which is his baseline per prior admitting notes. Physical Exam Physical Exam: GENERAL: awake, awake, weak/frail appearing. NAD, on RA. Not able to cooperate. incomprehensible speech. HEENT: No pallor, no icterus. Pupils equal, round and reactive to light. Oral mucosa moist. NECK: No JVD, no neck masses. HEART: S1 and S2 heard. Regular rate and rhythm. No murmur, no gallop. RESPIRATORY SYSTEM: Normal AP diameter. No accessory muscle use. No wheezing, no crackles. decreased breath sounds (? d/t not being able to cooperate w/ exam) ABDOMEN: Soft, bowel sounds present, nontender, no distention. CENTRAL NERVOUS SYSTEM: No facial droop. Moves extremities. EXTREMITIES: No edema, no erythema seen. Results & Data Results & Data Vital Signs (Past 12 Hours) Vital Signs Temp Pulse Pulse Resp BP Pulse Ox O2 Del Method 11/20/23 15:26 36.8 C 90 19 97/60 L 96 Room Air 11/20/23 13:00 11/20/23 12:52 84 20 96 Room Air 11/20/23 11:04 37.1 C 96 H 19 93/52 L 96 Room Air 11/20/23 08:03 74 15 97 Room Air 11/20/23 08:00 71 11/20/23 07:32 36.3 C L 67 16 95/56 L 96 Room Air O2 Del Method FiO2 11/20/23 15:26 11/20/23 13:00 Room Air 11/20/23 12:52 11/20/23 11:04 11/20/23 08:03 21 11/20/23 08:00 11/20/23 07:32
[2023-11-20] MEDS: SIMVASTATIN 40 MG TAB PO SCH (19:37)
[2023-11-20] MEDS: TAMSULOSIN HCL 0.4 MG CAP PO SCH (19:37)
[2023-11-20] MEDS: GLUCOSE 40% GEL 15 GM TUBE PO PRN (20:43)
[2023-11-20] MEDS: ACETAMINOPHEN 325 MG TAB PO PRN (21:47)
[2023-11-20] MEDS: DEXTROSE 5% 1,000 ML IV SCH (21:59)
[2023-11-21] MEDS: ALBUTEROL 0.083% NEBU SOLN 3 ML VIAL NEB SCH ×4 (01:07→20:17)
[2023-11-21] MEDS: cefTRIAXone SODIUM 2,000 MG in DEXTROSE 5 % MINI-B 50 ML IV SCH (04:41)
[2023-11-21 07:40] LABS: BUN Creatinine Ratio 31.5 (10-20); Calcium 8.5 mg/dl (8.6-10.3); Creatinine Clr Calc Pharmacy 114.1 ml/min; Est GFR (African American) 124.2 ml/min; Est GFR (Non-African American) 107.1 ml/min; Magnesium 1.8 mg/dl (1.7-2.4); Phosphorus 2.9 mg/dl (2.5-4.9); Potassium 4.8 mmol/L (3.5-5.1)
[2023-11-21] MEDS: ACETAMINOPHEN 325 MG TAB PO PRN (07:44)
[2023-11-21] MEDS: ARTIFICIAL TEARS OP SCH ×2 (08:32→20:32)
[2023-11-21] MEDS: SIMETHICONE 80 MG CHEW PO SCH ×4 (08:34→20:05)
[2023-11-21] MEDS: QUEtiapine FUMARATE 100 MG TABLET PO SCH ×2 (08:35→20:05)
[2023-11-21] MEDS: OXcarbazepine 150 MG TABLET PO SCH ×2 (08:35→20:05)
[2023-11-21] MEDS: SACCHAROMYCES BOULARDII 250 MG CAP PO SCH (08:35)
[2023-11-21] MEDS: PENTOXIFYLLINE 400MG EXT REL TAB PO SCH ×3 (08:35→20:05)
[2023-11-21] MEDS: SERTRALINE HCL 50 MG TABLET PO SCH (08:35)
[2023-11-21] MEDS: CHOLECALCIFEROL 25 MCG (1000 UNITS) TAB PO SCH (08:36)
[2023-11-21] MEDS: GABAPENTIN 300 MG CAP PO SCH ×3 (08:36→20:05)
[2023-11-21] MEDS: UMECLIDINIUM BROMIDE 62.5MCG/BLISTER 7 PUFFS/INHALER INH SCH (08:36)
[2023-11-21] MEDS: FINASTERIDE 5 MG TAB PO SCH (08:36)
[2023-11-21] MEDS: SUCRALFATE 1 GM/10 ML UDC PO SCH ×4 (08:36→20:04)
[2023-11-21] MEDS: MAGNESIUM CHLORIDE W/CALCIUM 64MG DELAYED REL TAB PO SCH ×2 (08:36→20:04)
[2023-11-21] MEDS: MULTIVITAMIN TAB PO SCH (08:36)
[2023-11-21] MEDS: INSULIN ASPART PER UNIT CHARGE SC SCH ×4 (08:47→20:32)
[2023-11-21] MEDS: LANTUS PER UNIT CHARGE SC SCH (08:48)
--- NOTE | 2023-11-21 13:56 | Hospitalist Progress Note ---
Date of Service November 21, 2023 Assessment & Plan (1) Hypernatremia: Plan 68-year-old male with PMH of chronic diastolic CHF, PAF/not on anticoagulation due to fall risk, PSVT, mild , HTN, HLD, cerebral palsy, nonverbal, intel lectual disability, Klinefelter syndrome, hyperprolactinemia, mood disorder, SIADH, T2DM, COPD, GERD, TRINIDAD, PVD presented from SNF for complaints of fever and increased lethargy and concern for UTI. He was reported to have had a fever of 101.8F, UA was performed prior to arrival which was suggestive of UTI. Of note, he has chronic indwelling Blue catheter which was changed upon presentation to the ED. He is being managed for the following: Likely Catheter associated UTI Sepsis POA: Likely secondary to above. Respiratory rate and pulse rate elevated at presentation. Lactate and procalcitonin WNL. Gram-negative bacilli bacteremia: Likely secondary to UTI Patient presented from SNF due to increasing lethargy/fever and concern for UTI. History of Klebsiella UTI in September 2023, resistant to Bactrim and nitrofurantoin, sensitive to all other agents Admitting urine culture inconclusive, sent repeat urine culture 11/19 Admitting blood culture preliminary positive for GNB, follow final Status post IV fluid resuscitation 11/18. Patient received Zosyn 11/18, changed to Rocephin 11/19, continue. Follow repeat blood culture 11/19. Urine catheter changed in 11/18. ID consult, await recs. Hemodynamics more stable. Blood pressure at his baseline. Likely demand ischemia: Troponin elevated at presentation, fairly flat trended. Likely secondary to acute sepsis. Admitting EKG with A-fib with RVR. Back to sinus rhythm per EKG 11/19. Continue telemetry monitoring. Dehydration: likely 2/2 poor po intake 2/2 underlying comorbidities including nonverbal status/cerebral palsy/intellectual disability. Severe hyponatremia Admitting sodium of 158, corrected is even higher with hyperglycemia at presentation. At presentation, patient was dry on exam. Status post 5 L IV fluid resuscitation at presentation day. Encourage p.o. food and fluid. Home urea discontinued. Nephrology on board, Na improved, dc ivf. Monitor BMP closely. Na resolved. labs in am or prn. Acute kidney injury: Likely prerenal secondary to dehydration. Baseline creatinine around 0.6, admitting creatinine of 1.37. Status post IV fluid. Resolved. T2DM and likely DKA at presentation: Urinary ketones +ve, AG elevated at admission. s/p insulin infusion, glycemic pharmacy on board. Glucose levels better controlled now. Resume home Trulicity, metformin and amaryl on discharge. Other chronic medical conditions: Continue with/resume home meds as and when able Cerebral palsy/intellectual disability -history of status, chronic, stable. Continue home sertraline/Seroquel/oxcarbazepine/gabapentin. Had a speech evaluation during last stay: Alternate solids, liquids supervised meals, be fully alert and upright, oral hygiene. Aortic stenosis/IVC filter in situ/chronic diastolic CHF: 2022 TTE with EF of 60 to 65%, chronic, stable. Lasix was stopped during recent hospitalization due to SIADH and hyponatremia. Was dehydrated at presentation, appears euvolemic now, monitor volume status. Paroxysmal A-fib: not on anticoagulation due to fall risk. Metoprolol stopped due to bradycardia during last hospital stay Chronic obstructive pulmonary disease: Hx of such. Stable. Continue Delaney and Incruse Ellipta. Anemia: Chronic, stable. DVT prophylaxis: Teds, SCDs CODE STATUS: Full Dispo: PT/OT, CM to assist with DC plan. DC pending ID recs. Admission and Anticipated Discharge Date Admission Date: November 18, 2023 Subjective Patient was seen and examined at bedside. Patient was lying in bed, on RA, NAD. Patient awake and alert, ROS not able due to cognition status. Of note, patient appears to be in some kind of distress all the time which is his baseline per prior admitting notes. Physical Exam Physical Exam: GENERAL: awake, alert, weak/frail appearing. NAD, on RA. Not able to cooperate. incomprehensible speech. HEENT: No pallor, no icterus. Pupils equal, round and reactive to light. Oral mucosa moist. NECK: No JVD, no neck masses. HEART: S1 and S2 heard. Regular rate and rhythm. No murmur, no gallop. RESPIRATORY SYSTEM: Normal AP diameter. No accessory muscle use. No wheezing, no crackles. decreased breath sounds (? d/t not being able to cooperate w/ exam) ABDOMEN: Soft, bowel sounds present, nontender, no distention. CENTRAL NERVOUS SYSTEM: No facial droop. Moves extremities. EXTREMITIES: No edema, no erythema seen. Results & Data Results & Data Vital Signs (Past 12 Hours) Vital Signs Temp Pulse Pulse Resp BP BP Pulse Ox 11/21/23 12:02 36.4 C L 89 19 98/62 L 94 11/21/23 07:41 11/21/23 07:37 36.2 C L 65 19 119/54 L 100 11/21/23 07:34 63 20 98 11/21/23 07:10 64 11/21/23 02:00 36.9 C 66 16 90/52 L 95 O2 Del Method 11/21/23 12:02 Room Air 11/21/23 07:41 Room Air 11/21/23 07:37 Room Air 11/21/23 07:34 Room Air 11/21/23 07:10 11/21/23 02:00 Room Air
--- NOTE | 2023-11-21 14:09 | Pharmacy Report ---
Pharmacy Glycemic Short Note 2 - Date of Service November 21, 2023 - Glycemic Short BSG Results (Last 24 hours): 11/20/23 11/20/23 11/20/23 16:05 20:06 20:08 Glucose POC Glucose 113 H 46 L* 48 L* 11/20/23 11/20/23 11/20/23 20:20 20:40 20:58 Glucose POC Glucose 48 L* 49 L* 72 11/21/23 11/21/23 11/21/23 02:26 07:05 07:43 Glucose 221 H POC Glucose 249 H 202 H 11/21/23 12:01 Glucose POC Glucose 244 H OUTPATIENT ANTIDIABETIC REGIMEN: * glimepiride 3 mg PO qd, insulin lispro SST ACHS, metformin 1 gm BID * A1c 7.5% 10/02/23 ASSESSMENT: 11/20: * Isai received 42 units of insulin yesterday (18 were basal) * Fasting BSG this AM elevated, hypoglycemia yesterday at bedtime treated with 30gms of glucose gel, RN reported he did not eat much of his dinner, 54 carbohydrates appear to have been covered, added dose instructions to Novolog order "give Novolog immediately after eating and to call pharmacy for dose adjustments if less than 75% of meal was eaten" * Will continue with current basal regimen at this time due to hypoglycemic event yesterday which was likely contributory to elevated fasting BSG * Consider increased goal range to prevent hypoglycemia, no correctional insulin given for yesterday's dinner so will continue with current Novolog parameters at this time 11/21 * Isai received 60 units of insulin yesterday (15 were basal, 34 units from insulin infusion overnight, 5 units regular insulin IV bolus, and 11 units of Novolog as bolus) * Drip transition was successful yesterday evening, but did require a regular insulin IV bolus of 5 units at 2200 and then 3 units of Novolog at 0000 check. * Fasting BSG slightly elevated this morning, will add the 3 units given last night at 0000 to the daily basal dosage. * Historically he required anywhere from 15-25 units of insulin per day while inpatient. He was on a dextrose infusion until yesterday afternoon which was likely contributing to increased insulin needs yesterday. BSGs were hi storically very labile with episodes of hypoglycemia/hyperglycemia. Will make adjustments cautiously. CDE also reports outpatient BSGs recently significantly elevated with minimal hypoglycemia per notes. * Will tighten carbohydrate ratio slightly in an attempt to prevent prandial hyperglycemia, consider increasing goal range based on response to regimen. Correction factor tightened yesterday evening, will continue to monitor, appears that he is correcting adequately 11/19: * Patient admitted to ICU with hypernatremia, hyperglycemia, K. pneumoniae bacteremia (likely urine source). Blood sugars corrected overnight with insulin infusion. Serum osmol still elevated with Na in the 150s- slow correction and patient is currently on D5W + 40 Kcl @85 ml/hr * Insulin infusion rate reduced to 1 unit/hr with a blood sugar of 84 mg/dL. Patient is now ordered diet and eating. Per laboratory manager okay to transition off of insulin infusion * 15 units of basal given to help transition, unfortunately BSGs had trended upward to 289 mg/dL. Will give 3 additional units of novolog and discontinue infusion when back in goal range. * Set Novolog parameters weight based stress of 2. Reviewed previous admission in September basal doses ranged from 6 to 12 units. PLAN FOR INPATIENT GLYCEMIC CONTROL: * Hold outpatient oral diabetes medications * Basal insulin * Lantus 18 units SQ daily * Bolus insulin * NovoLog per scale ACHS or Q6hrs while NPO * Goal Range: Low 110 mg/dL - High 140 mg/dL * Correction Factor: 30 mg/dL/unit * Nutritional / Prandial insulin per carb ratio of 1 unit per 8 grams CHO consumed
[2023-11-21] MEDS ORDERED: OPTIRAY 320 500ml IV ONE (18:52)
--- NOTE | 2023-11-21 19:20 | CT Scan Report ---
Exam(s): CT ABDOMEN + PELVIS With Contrast Oral - High Density Amt: gastro, IV Amt: OPTIRAY 320 82ML EXAM: CT Abdomen and Pelvis With Intravenous Contrast CLINICAL HISTORY: Reason for exam: ro abcess. TECHNIQUE: Axial computed tomography images of the abdomen and pelvis with intravenous contrast. CTDI is 21.78 mGy and DLP is 1070.26 mGy-cm. Automated exposure control was utilized for the study. A dose lowering technique was utilized adhering to the principles of ALARA. CONTRAST: Patient received gastro of Oral - High Density and OPTIRAY 320 82ML of IV contrast COMPARISON: 09/22/2023. FINDINGS: Lung bases: There is vascular crowding with bilateral lower lobe and lingular atelectasis. Heart: Borderline cardiomegaly with coronary artery calcifications. ABDOMEN: Liver: Unremarkable. No mass. Gallbladder and bile ducts: Status post cholecystectomy. No ductal dilation. Pancreas: Unremarkable. No mass. No ductal dilation. Spleen: Unremarkable. No splenomegaly. Adrenals: Unremarkable. No mass. Kidneys and ureters: Unremarkable. No solid mass. No hydronephrosis. Stomach and bowel: There is contrast within the colon. Mild nonspecific distention of the small bowel and colon. No mucosal thickening. PELVIS: Appendix: Partially identified appendix of normal size. Bladder: Significant thickening of the wall through the urinary bladder, cannot exclude cystitis. A Blue catheter is identified within the bladder. Reproductive: Unremarkable as visualized. ABDOMEN and PELVIS: Intraperitoneal space: Trace free fluid within the posterior pelvis. No free air. Bones/joints: Multilevel degenerative disease of the spine with osteopenia. Decrease in vertebral body height at T12 and L1 consistent with moderate compression fracture with mild compression fracture of T11, unchanged in the interval. No dislocation. Soft tissues: Unremarkable. Vasculature: There is an IVC filter in place. Nonspecific calcifications through the wall of the inferior vena cava. Calcified at the skull disease of aorta with no aneurysm. Lymph nodes: Unremarkable. No enlarged lymph nodes. IMPRESSION: 1. Possible cystitis, correlation with urinalysis recommended. 2. No acute appendicitis or bowel obstruction pain 3. Nonspecific mild free fluid within the posterior pelvis, etiology indeterminate. No obvious fluid collection to suggest drainable abscess. 4. Status post cholecystectomy, otherwise unremarkable abdominal viscera. Electronically signed by: Mireya Mccollum MD 11/21/23 19:20 PM
[2023-11-21] MEDS: TAMSULOSIN HCL 0.4 MG CAP PO SCH (20:05)
[2023-11-21] MEDS: SIMVASTATIN 40 MG TAB PO SCH (20:05)
[2023-11-22] MEDS: ALBUTEROL 0.083% NEBU SOLN 3 ML VIAL NEB SCH ×3 (00:47→15:12)
[2023-11-22] MEDS: cefTRIAXone SODIUM 2,000 MG in DEXTROSE 5 % MINI-B 50 ML IV SCH (04:40)
[2023-11-22 06:56] LABS: BUN Creatinine Ratio 29.4 (10-20); Calcium 8.8 mg/dl (8.6-10.3); Creatinine Clr Calc Pharmacy 124.1 ml/min; Est GFR (African American) 127.1 ml/min; Est GFR (Non-African American) 109.7 ml/min; Hematocrit (blood only) 28.3 % (42.0-52.0); Hemoglobin 8.9 g/dl (14.0-18.0); Magnesium 1.7 mg/dl (1.7-2.4); Mean Corpuscular Hemoglobin 31.2 pg (25.0-34.0); Mean Corpuscular Hgb Conc 31.4 g/dL (32.0-36.0); Mean Corpuscular Volume 99.3 fL (80.0-100.0); Mean Platelet Volume 11.3 fL (9.4-12.4); Phosphorus 3.5 mg/dl (2.5-4.9); Platelet Count 126 K/uL (130-400); Potassium 4.5 mmol/L (3.5-5.1); RDW Coefficient of Variation 13.5 % (11.5-14.5); RDW Standard Deviation 48.7 fL (36.4-46.3); Red Blood Count 2.85 M/uL (4.70-6.10); White Blood Count 4.92 K/ul (4.8-10.8)
[2023-11-22] MEDS: PENTOXIFYLLINE 400MG EXT REL TAB PO SCH ×3 (08:07→20:48)
[2023-11-22] MEDS: QUEtiapine FUMARATE 100 MG TABLET PO SCH ×2 (08:07→20:48)
[2023-11-22] MEDS: GABAPENTIN 300 MG CAP PO SCH ×3 (08:08→20:48)
[2023-11-22] MEDS: FINASTERIDE 5 MG TAB PO SCH (08:08)
[2023-11-22] MEDS: MULTIVITAMIN TAB PO SCH (08:08)
[2023-11-22] MEDS: SACCHAROMYCES BOULARDII 250 MG CAP PO SCH (08:08)
[2023-11-22] MEDS: MAGNESIUM CHLORIDE W/CALCIUM 64MG DELAYED REL TAB PO SCH ×2 (08:08→20:48)
[2023-11-22] MEDS: CHOLECALCIFEROL 25 MCG (1000 UNITS) TAB PO SCH (08:08)
[2023-11-22] MEDS: SUCRALFATE 1 GM/10 ML UDC PO SCH ×4 (08:08→20:48)
[2023-11-22] MEDS: SERTRALINE HCL 50 MG TABLET PO SCH (08:08)
[2023-11-22] MEDS: OXcarbazepine 150 MG TABLET PO SCH ×2 (08:08→20:48)
[2023-11-22] MEDS: UMECLIDINIUM BROMIDE 62.5MCG/BLISTER 7 PUFFS/INHALER INH SCH (08:09)
[2023-11-22] MEDS: SIMETHICONE 80 MG CHEW PO SCH ×4 (08:09→20:48)
[2023-11-22] MEDS: LANTUS PER UNIT CHARGE SC SCH (09:43)
[2023-11-22] MEDS: ARTIFICIAL TEARS OP SCH ×2 (09:44→20:49)
[2023-11-22] MEDS: INSULIN ASPART PER UNIT CHARGE SC SCH ×4 (09:44→20:50)
--- NOTE | 2023-11-22 11:51 | Nephrology Progress Note ---
Date of Service November 22, 2023 Assessment & Plan (1) Acute hypernatremia: Plan: He has Serum na of 161 even when his glucose was 523 so true na was much higher. He has massive fluid deficit and at this severe level hard /not accurate to even measure. Sodium is improved to 139. Encourage oral intake encourage PO fluid and food. Will sign off. Please call if additional questions or concerns Admission and Anticipated Discharge Date Admission Date: November 18, 2023 Subjective Seen for hypernatremia. Patient is unable to give history due to cerebral palsy Review of Systems 2 Review of Systems: Unable to obtain due to cerebral palsy Physical Exam 2 Physical Exam: General exam: Appears comfortable, no acute distress HEENT: Pupils are equal and reactive to light Neck: No JVD, neck is supple trachea is midline Respiratory system: Clear breath sounds bilaterally. Gastrointestinal: Abdomen is soft, non distended, non tender, bowel sounds are present CVS: Regular rate and rhythm. No murmurs, rubs or gallops Musculoskeletal: No joint or muscle tenderness Extremities: Non tender, no edema, peripheral pulses are present Neuro: Cerebral palsy Skin: No rashes Results & Data Vital Signs (Past 12 Hours) Vital Signs Temp Pulse Pulse Resp BP BP Pulse Ox 11/22/23 07:53 36.8 C 81 18 100/65 95 11/22/23 07:30 80 11/22/23 07:28 83 16 95 11/22/23 02:53 37.3 C 86 20 100/61 96 11/22/23 00:47 82 18 98 11/22/23 00:26 85 O2 Del Method 11/22/23 07:53 Room Air 11/22/23 07:30 11/22/23 07:28 Room Air 11/22/23 02:53 Room Air 11/22/23 00:47 Room Air 11/22/23 00:26 Laboratory Results 11/22/23 06:07 11/22/23 06:07 WBC 4.92 RBC 2.85 L MCV 99.3 D MCH 31.2 MCHC 31.4 L RDW Std Deviation 48.7 H RDW Coeff of Drew 13.5 Plt Count 126 L MPV 11.3 Phosphorus 3.5
[2023-11-22] MEDS ORDERED: ALBUTEROL 0.083% NEBU SOLN 3 ML VIAL NEB PRN (13:42)
--- NOTE | 2023-11-22 14:00 | Hospitalist Progress Note ---
Date of Service November 22, 2023 Assessment & Plan (1) Hypernatremia: Plan 68-year-old male with PMH of chronic diastolic CHF, PAF/not on anticoagulation due to fall risk, PSVT, mild , HTN, HLD, cerebral palsy, nonverbal, intel lectual disability, Klinefelter syndrome, hyperprolactinemia, mood disorder, SIADH, T2DM, COPD, GERD, [place], PVD presented from SNF for complaints of fever and increased lethargy and concern for UTI. He was reported to have had a fever of 101.8F, UA was performed prior to arrival which was suggestive of UTI. Of note, he has chronic indwelling Blue catheter which was changed upon presentation to the ED. He is being managed for the following: Likely Catheter associated UTI Sepsis POA: Likely secondary to above. Respiratory rate and pulse rate elevated at presentation. Lactate and procalcitonin WNL. Gram-negative bacilli bacteremia: Likely secondary to UTI Patient presented from SNF due to increasing lethargy/fever and concern for UTI. History of Klebsiella UTI in September 2023, resistant to Bactrim and nitrofurantoin, sensitive to all other agents Admitting urine culture inconclusive, sent repeat urine culture 11/19 Admitting blood culture preliminary positive for GNB, follow final Status post IV fluid resuscitation 11/18. Patient received Zosyn 11/18, changed to Rocephin 11/19, continue. Follow repeat blood culture 11/19. Urine catheter changed in 11/18. ID consult, Discussed with ID 11/21, will get CTAP to rule out abscess and if negative for abscess will continue antibiotic for 10 days. Either Cipro or Bactrim would be okay. CTAP neg for abcess. Hemodynamics more stable. Blood pressure at his baseline. Likely demand ischemia: Troponin elevated at presentation, fairly flat trended. Likely secondary to acute sepsis. Admitting EKG with A-fib with RVR. Back to sinus rhythm per EKG 11/19. Continue telemetry monitoring. Dehydration: likely 2/2 poor po intake 2/2 underlying comorbidities including nonverbal status/cerebral palsy/intellectual disability. Severe hypernatremia Admitting sodium of 158, corrected is even higher with hyperglycemia at presentation. At presentation, patient was dry on exam. Status post 5 L IV fluid resuscitation at presentation day. Encourage p.o. food and fluid. Home urea discontinued. Nephrology on board, Na improved, dc ivf. Monitor BMP closely. Na resolved. labs in am or prn. Acute kidney injury: Likely prerenal secondary to dehydration. Baseline creatinine around 0.6, admitting creatinine of 1.37. Status post IV fluid. Resolved. T2DM and likely DKA at presentation: Urinary ketones +ve, AG elevated at admission. s/p insulin infusion, glycemic pharmacy on board. Glucose levels better controlled now. Resume home Trulicity, metformin and amaryl on discharge. Other chronic medical conditions: Continue with/resume home meds as and when able Cerebral palsy/intellectual disability -history of status, chronic, stable. Continue home sertraline/Seroquel/oxcarbazepine/gabapentin. Had a speech evaluation during last stay: Alternate solids, liquids supervised meals, be fully alert and upright, oral hygiene. Aortic stenosis/IVC filter in situ/chronic diastolic CHF: 2022 TTE with EF of 60 to 65%, chronic, stable. Lasix was stopped during recent hospitalization due to SIADH and hyponatremia. Was dehydrated at presentation, appears euvolemic now, monitor volume status. Paroxysmal A-fib: not on anticoagulation due to fall risk. Metoprolol stopped due to bradycardia during last hospital stay Chronic obstructive pulmonary disease: Hx of such. Stable. Continue Delaney and Incruse Ellipta. Anemia: Chronic, stable. DVT prophylaxis: Teds, SCDs CODE STATUS: Full Dispo: PT/OT, CM to assist with DC plan. DC pending ID recs. Admission and Anticipated Discharge Date Admission Date: November 18, 2023 Subjective Patient was seen and examined at bedside. Patient was lying in bed, on RA, NAD. Patient awake and alert, ROS not able due to cognition status. Pt watching television, appears comfortable. Of note, patient appears to be in some kind of distress all the time which is his baseline per prior admitting notes. Physical Exam Physical Exam: GENERAL: awake, alert, weak/frail appearing. NAD, on RA. Not able to cooperate. incomprehensible speech. HEENT: No pallor, no icterus. Pupils equal, round and reactive to light. Oral mucosa moist. NECK: No JVD, no neck masses. HEART: S1 and S2 heard. Regular rate and rhythm. No murmur, no gallop. RESPIRATORY SYSTEM: Normal AP diameter. No accessory muscle use. No wheezing, no crackles. ABDOMEN: Soft, bowel sounds present, nontender, no distention. CENTRAL NERVOUS SYSTEM: No facial droop. Moves extremities. EXTREMITIES: No edema, no erythema seen. Results & Data Results & Data Vital Signs (Past 12 Hours) Vital Signs Temp Pulse Pulse Resp BP BP Pulse Ox 11/22/23 11:36 36.6 C 81 18 93/60 L 97 11/22/23 07:53 36.8 C 81 18 100/65 95 11/22/23 07:30 80 11/22/23 07:28 83 16 95 11/22/23 02:53 37.3 C 86 20 100/61 96 O2 Del Method 11/22/23 11:36 Room Air 11/22/23 07:53 Room Air 11/22/23 07:30 11/22/23 07:28 Room Air 11/22/23 02:53 Room Air
[2023-11-22] MEDS: GLUCOSE 40% GEL 15 GM TUBE PO PRN ×2 (20:42→21:03)
[2023-11-22] MEDS: SIMVASTATIN 40 MG TAB PO SCH (20:48)
[2023-11-22] MEDS: TAMSULOSIN HCL 0.4 MG CAP PO SCH (20:48)
[2023-11-23] MEDS: cefTRIAXone SODIUM 2,000 MG in DEXTROSE 5 % MINI-B 50 ML IV SCH ×2 (04:53→06:37)
[2023-11-23] MEDS: INSULIN ASPART PER UNIT CHARGE SC SCH ×2 (08:55→13:12)
[2023-11-23] MEDS: LANTUS PER UNIT CHARGE SC SCH (08:55)
[2023-11-23] MEDS: FINASTERIDE 5 MG TAB PO SCH (08:57)
[2023-11-23] MEDS: ARTIFICIAL TEARS OP SCH (08:57)
[2023-11-23] MEDS: GABAPENTIN 300 MG CAP PO SCH (08:57)
[2023-11-23] MEDS: OXcarbazepine 150 MG TABLET PO SCH (08:58)
[2023-11-23] MEDS: PENTOXIFYLLINE 400MG EXT REL TAB PO SCH (08:58)
[2023-11-23] MEDS: SIMETHICONE 80 MG CHEW PO SCH ×2 (08:59→13:09)
[2023-11-23] MEDS: MAGNESIUM CHLORIDE W/CALCIUM 64MG DELAYED REL TAB PO SCH (08:59)
[2023-11-23] MEDS: CHOLECALCIFEROL 25 MCG (1000 UNITS) TAB PO SCH (08:59)
[2023-11-23] MEDS: SERTRALINE HCL 50 MG TABLET PO SCH (08:59)
[2023-11-23] MEDS: MULTIVITAMIN TAB PO SCH (08:59)
[2023-11-23] MEDS: SACCHAROMYCES BOULARDII 250 MG CAP PO SCH (08:59)
[2023-11-23] MEDS: QUEtiapine FUMARATE 100 MG TABLET PO SCH (08:59)
[2023-11-23] MEDS: SUCRALFATE 1 GM/10 ML UDC PO SCH ×2 (09:00→13:10)
[2023-11-23] MEDS: UMECLIDINIUM BROMIDE 62.5MCG/BLISTER 7 PUFFS/INHALER INH SCH (09:00)
--- NOTE | 2023-11-23 13:51 | Discharge Summary ---
Date of Service November 23, 2023 Admission HPI Per Admitting Provider This is a 68-year-old male with PMHx of Chronic diastolic CHF, PAF not on anticoagulation due to fall risk, PSVT, mild , HTN, HLD, cerebral palsy, nonverbal, intellectual disability, Klinefelter syndrome, hyperprolactinemia, mood disorder, SIADH, DM type II, COPD, GERD, TRINIDAD, peripheral vascular disease, who presents from SNF for complaints of fever, increased lethargy concern for UTI. He is reported to have had a fever of 101.8, UA was performed last evening and showed urine with +4 bacteria, and therefore he was sent via ambulance to the hospital here today with worsening lethargy. He has a chronic indwelling Blue catheter which was changed upon presentation to the ER today. He was recently hospitalized from 09/16 to 10/16 2023 for hyponatremia as well as Klebsiella UTI. He initially at that time presented with abdominal pain, chest pain and diarrhea. And it was thought that this was due to suspected ileus related to gastroenteritis. This prolonged hospital stay was complicated by hyponatremia secondary to SIADH worsened with the use of diuretics, Lasix, which was held and placed on urea 15 g twice daily as well as fluid restriction and 1.5 L fluid daily. He was allowed to use salt on his food and high-protein diet and was followed by nephrology at that time. He was discharged to [facility] and has been there since. He is found to have a white count of 9.87, afebrile here, UA appears suspicious for infection however may be colonized. Initially his heart rate was in the 130s, improved to the 110s with 30 cc/kg of IV fluids administered for sepsis protocol in the per ER. Troponins found to be elevated at 57.7. He was started on IV Zosyn due to allergies. Initially patient is asleep and difficult to awaken with verbal stimuli, throughout exam and with palpation of abdomen he awakens. Patient is essentially nonverbal. does smile and is awake during my physical exam, he follows some basic commands such as raising his hands, smiles intermittently saying hi. Attempted to contact SNF and reception manager was unable to connect me to the rehab facility to speak with nursing personelle. Admission Exam Per Admitting Provider General: awake, alert, no apparent distress, nonverbal, cerebral palsy, diffuse muscle wasting Head: Normocephalic, atraumatic ENT: PERRL, EOMI, no pharyngeal exudate, mucous membranes are very dry Chest: Clear to auscultation, on 3L via NC, no adventitious breath sounds Cardiac: Irregularly irregular, rate controlled, loud holosystolic murmur with radiation to carotids, no JVD, normal peripheral pulses, good capillary refill Abdominal: NABS x 4 quadrants, soft, nondistended, nontender to palpation, no rebound or guarding Extremities: Left lower extremity with chronic peripheral vascular skin changes, no peripheral edema or erythema, calfs nontender to palpation Skin: Skin turgor is poor Psych: Normal mood and affect pleasant Neuro: AA, strength unable to be assessed, essentially nonverbal, can say hi but this is all during the course of my visitation with the patient Please see attending addendum for further physical exam findings. Principal Diagnosis Catheter associated UTI Sepsis POA Gram-negative bacilli bacteremia Discharge Exam GENERAL: awake, alert, weak/frail appearing. NAD, on RA. Not able to cooperate. incomprehensible speech. HEENT: No pallor, no icterus. Pupils equal, round and reactive to light. Oral mucosa moist. NECK: No JVD, no neck masses. HEART: S1 and S2 heard. Regular rate and rhythm. No murmur, no gallop. RESPIRATORY SYSTEM: Normal AP diameter. No accessory muscle use. No wheezing, no crackles. ABDOMEN: Soft, bowel sounds present, nontender, no distention. CENTRAL NERVOUS SYSTEM: No facial droop. Moves extremities. EXTREMITIES: No edema, no erythema seen. Discharge Data Allergies Allergy/AdvReac Type Severity Reaction Status Date / Time lactose Allergy Intermediate GI SYMPTOMS Verified 11/18/23 16:19 aspirin Allergy Unknown UNKNOWN Verified 11/18/23 16:19 REACTION cephalexin Allergy Unknown UNKNOWN Verified 11/18/23 16:19 REACTION Cephalosporins Allergy Unknown UNKNOWN Verified 11/19/23 05:16 REACTION Corticosteroids Allergy Unknown UNKNOWN Verified 11/18/23 16:19 (Glucocorticoids) REACTION methylprednisolone Allergy Unknown UNKNOWN Verified 11/18/23 16:19 REACTION shellfish derived Allergy Unknown UNKNOWN Verified 11/18/23 16:19 REACTION Consultations 11/18/23 15:41 ED Decision to Admit Stat 11/18/23 16:11 Consult Nephrology Routine 11/18/23 18:12 Consult Heating Worker Routine 11/19/23 14:33 Consult Infectious Diseases Routine Ordered Studies 11/21/23 15:59 CT Abd and Pelvis [CT abd pelvis oral and IV con] Routine Hospital Course (1) Hypernatremia: Plan 68-year-old male with PMH of chronic diastolic CHF, PAF/not on anticoagulation due to fall risk, PSVT, mild , HTN, HLD, cerebral palsy, nonverbal, intellectual disability, Klinefelter syndrome, hyperprolactinemia, mood disorder, SIADH, T2DM, COPD, GERD, TRINIDAD, PVD presented from SNF for complaints of fever and increased lethargy and concern for UTI. He was reported to have had a fever of 101.8F, UA was performed prior to arrival which was suggestive of UTI. Of note, he has chronic indwelling Blue catheter which was changed upon presentation to the ED. He was managed for the following: Likely Catheter associated UTI Sepsis POA: Likely secondary to above. Respiratory rate and pulse rate elevated at presentation. Lactate and procalcitonin WNL. Gram-negative bacilli bacteremia: Likely secondary to UTI Patient presented from SNF due to increasing lethargy/fever and concern for UTI. History of Klebsiella UTI in September 2023, resistant to Bactrim and nitrofurantoin, sensitive to all other agents Admitting urine culture inconclusive, sent repeat urine culture 11/19 Admitting blood culture preliminary positive for GNB, follow final Status post IV fluid resuscitation 11/18. Patient received Zosyn 11/18, changed to Rocephin 11/19, continue. Follow repeat blood culture 11/19. Urine catheter changed in 11/18. ID consult, appreciate recs. Hemodynamics more stable. Blood pressure at his baseline. Pt being discharged on oral antibiotic to complete the course. Likely demand ischemia: Troponin elevated at presentation, fairly flat trended. Likely secondary to acute sepsis. Admitting EKG with A-fib with RVR. Back to sinus rhythm per EKG 11/19. Continue telemetry monitoring. Dehydration: likely 2/2 poor po intake 2/2 underlying comorbidities including nonverbal status/cerebral palsy/intellectual disability. Severe hypernatremia Admitting sodium of 158, corrected is even higher with hyperglycemia at presentation. At presentation, patient was dry on exam. Status post 5 L IV fluid resuscitation at presentation day. Encourage p.o. food and fluid. Home urea discontinued. Nephrology on board, Na improved, dc ivf. Monitor BMP closely. Na resolved. labs in am or prn. Acute kidney injury: Likely prerenal secondary to dehydration. Baseline creatinine around 0.6, admitting creatinine of 1.37. Status post IV fluid. Resolved. T2DM and likely DKA at presentation: Urinary ketones +ve, AG elevated at admission. s/p insulin infusion, glycemic pharmacy on board. Glucose levels better controlled now. Resume home Trulicity, metformin and amaryl on discharge. Other chronic medical conditions: Continue with/resume home meds as and when able Cerebral palsy/intellectual disability -history of status, chronic, stable. Continue home sertraline/Seroquel/oxcarbazepine/gabapentin. Had a speech evaluation during last stay: Alternate solids, liquids supervised meals, be fully alert and upright, oral hygiene. Aortic stenosis/IVC filter in situ/chronic diastolic CHF: 2022 TTE with EF of 60 to 65%, chronic, stable. Lasix was stopped during recent hospitalization due to SIADH and hyponatremia. Was dehydrated at presentation, appears euvolemic now, monitor volume status. Paroxysmal A-fib: not on anticoagulation due to fall risk. Metoprolol stopped due to bradycardia during last hospital stay Chronic obstructive pulmonary disease: Hx of such. Stable. Continue Delaney and Incruse Ellipta. Anemia: Chronic, stable. DVT prophylaxis: Teds, SCDs CODE STATUS: Full Dispo: PT/OT, CM to assist with DC plan. Patient is being discharged with following instruction at the point of discharg e: Follow-up with your primary care physician within a week time and likely you will need labs CBC/CMP/magnesium/phosphorus. You will be discharged on ciprofloxacin to complete the course for UTI and gram- negative bacteremia. Probiotics will be added. Your glimepiride has been discontinued and insulin glargine has been added. Follow-up with your diabetic clinic for ongoing management of her diabetes. Continue medications as prescribed. Please make sure that you are able to get your medications today by calling your pharmacy before you leave the hospital so that your treatment continuity is not broken. Counts Include 234 Beds At [facility] Attestation I certify that this patient is under my care and that I, or a physicians law office assistant working with me, had a face to-face encounter that meets the [id number] encounter requirements with this patient. The encounter with the patient was in whole, or in part, for the following medical condition, which is the primary reason for home health care (list medical condition): I certify that, based on my findings, the following services are medically necessary home health services: My clinical findings support the need for the above services because: Further, I certify that my clinical findings support that this patient is homebound (i.e. absences from home require considerable and taxing effort and are for medical reasons or restoration services or infrequently or of short duration when for other reasons) because: Certification for Home Health Services: Based on the above findings, I certify that this patient is confined to the home and needs intermittent snf care, physical therapy and/or speech therapy or continues to need occupational therapy. The patient is under my care, and I have initiated the establishment of the plan of care. This patient will be followed by a physician who will periodically review the plan of care. Total Time Total Time Spent Total Time Spent (In Minutes): 45 Discharge Plan Discharge Items Patient Disposition: Transfer [facility] Reason For Visit: SEPSIS, UTI, HYPERNATREMIA Discharge Diagnosis: Catheter associated UTI Sepsis POA Gram-negative bacilli bacteremia Activity: Resume your previous activity Non-emergency contact: Primary Care Provider Call non-emergency contact if: you have any medication questions, your symptoms worsen and your temperature is above 101 Follow-up/Referrals: Andrew Montague MD [Primary Care Provider] - Diet: Carb Consistent or DM2 and Lactose Intolerant Diet Texture: Pureed (blended smooth) Addtl Attending Provider Instructions: Follow-up with your primary care physician within a week time and likely you will need labs CBC/CMP/magnesium/phosphorus. You will be discharged on ciprofloxacin to complete the course for UTI and gram- negative bacteremia. Probiotics will be added. Your glimepiride has been discontinued and insulin glargine has been added. Follow-up with your diabetic clinic for ongoing management of her diabetes. Continue medications as prescribed. Please make sure that you are able to get your medications today by calling your pharmacy before you leave the hospital so that your treatment continuity is not broken. Addtl Clay Transporter Provider Instructions: DIABETES ASSESSMENT: - Average blood sugar over the past 2 weeks is 340. - Majority of home blood sugar levels are above target with 78% of values above 250. - The small number of blood sugar levels in target are typically following severe hyperglycemia/high Humalog correctional dose suggesting need for Humalog (set dose) with meals (hold dose if patient consumes < 50% of meal). Would discontinue Glimepiride. - Fasting blood sugar levels are persistently above target suggesting need for addition of a once daily basal insulin. Pending Studies at Discharge: Yes Stand-Alone Forms: My [facility] Skilled Items Patient informed of condition?: Yes DNR: Yes Discharge Level of Care: Skilled Communicable Disease: No Discharge Prognosis: Stable Lines: None Urinary Catheter: Yes Medications and DC Order Prescriptions: New ciprofloxacin HCl 500 mg tablet 500 mg PO BID 10 Days Qty: 20 0RF Probiotic 3 billion cell capsule 3,000 mmu cells PO DAILY 14 Days Qty: 14 0RF Rx Instructions: administer with a meal insulin glargine 100 unit/mL (3 mL) insulin pen 10 unit subcut DAILY Qty: 15 0RF Continued multivitamin Tablet 1 tab PO DAILY Qty: 30 0RF clonazepam 0.5 mg tablet 0.5 mg PO TID Qty: 90 0RF Rx Instructions: 0800, 1600, 2000 oxcarbazepine 300 mg tablet 300 mg PO BID Qty: 60 0RF quetiapine 100 mg tablet 100 mg PO BID Qty: 60 0RF pentoxifylline 400 mg tablet extended release 400 mg PO TID Qty: 90 0RF carboxymethylcellulose sodium [Refresh Tears] 0.5 % Drops 1 drp OPB BID Qty: 15 0RF metformin 1,000 mg tablet 1,000 mg PO BID Qty: 60 0RF gabapentin 300 mg capsule 300 mg PO TID Qty: 90 0RF bismuth subsalicylate [Pepto-Bismol] 262 mg Tablet,Chewable 1 tab PO Q12 PRN (Reason: .UPSET STOMACH) Qty: 10 0RF albuterol sulfate 90 mcg/actuation Hfa Aerosol Inhaler 2 puff INHALATION Q4 PRN (Reason: Shortness Of Breath Or Wheezing) Qty: 6.7 0RF sertraline 50 mg tablet 50 mg PO DAILY Qty: 30 0RF finasteride 5 mg Tablet 5 mg PO QAM Qty: 30 0RF cholecalciferol (vitamin D3) [Vitamin D3] 25 mcg (1,000 unit) Capsule 25 mcg PO QAM Qty: 30 0RF Incruse Ellipta 62.5 mcg/actuation blister with device 1 inh INHALATION DAILY Qty: 30 0RF acetaminophen 650 mg Suppository 650 mg NC Q6H PRN (Reason: PAIN/FEVER) sucralfate [Carafate] 100 mg/mL Suspension 10 ml PO QID Rx Instructions: swish in mouth and swallow; use after food/drink ondansetron HCl [Zofran] 4 mg Tablet 4 mg PO Q6H PRN (Reason: NAUSEA/VOMITING) promethazine [Phenergan] 25 mg/mL Solution 25 mg IM Q6H PRN (Reason: NAUSEA/VOMITING) promethazine 25 mg Tablet 25 mg PO Q6H PRN (Reason: NAUSEA/VOMITING) insulin lispro [Humalog U-100 Insulin] 100 unit/mL Solution 1 sliding scale dose SUBCUT USEASDIRECTD PRN (Reason: Hyperglycemia) Rx Instructions: BSG 350-400=8 UNITS, BSG 401-450=12 UNITS, BSG 451-500=16 UNITS, [id number]=2 8 UNITS, RECHECK BSG IN 2 HRS. simethicone 80 mg Tablet,Chewable 160 mg PO QID Saccharomyces boulardii [Florastor] 250 mg Capsule 250 mg PO QAM Frozen Nutritional Treat 1 cp PO QPM acetaminophen [Tylenol] 325 mg tablet 650 mg PO Q6H MDD 3 GRAMS APAP/24 HOURS PRN (Reason: fever or pain) loperamide [Imodium A-D] 2 mg capsule 2 mg PO Q8H PRN (Reason: Diarrhea) Rx Instructions: administer after each loose stool until symptoms controlled; do not exceed 8 mg per 24 hrs guaifenesin 100 mg/5 mL liquid 200 mg PO Q8H PRN (Reason: Cough) simvastatin 40 mg tablet 40 mg PO HS tamsulosin 0.4 mg capsule 0.4 mg PO HS Mag 64 64 mg tablet,delayed release (DR/EC) 64 mg PO BID Trulicity 3 mg/0.5 mL pen injector 3 mg SUBCUT WK Rx Instructions: WEDNESDAYS Discontinued glimepiride 1 mg tablet 2 mg PO DAILY Ure-Na 15 gram powder in packet 15 g PO BIDM Discharge Orders: Discharge Order (Routine); Ordered 11/23/23 Ordered By: Edison Lara Admission Data Admit Date/Time: 11/18/23 18:12 Attending Provider: Edison Lara Admit Provider: Galilea Parham I. Primary Care Provider: Andrew Montague Other Providers: Galilea Parham I.; Jason Latham; Raymundo Lu; Paco Hopson; Kimberlyn Jackson; Omar Lyman I.; Matt Loya II; Katalina Lee; Aditya Fletcher; Adam Lovell; Richard Chau; Brian Mac
== END 2023-11-23 14:39 | DRG 871 ==
LOC: ED 12:29 → EDINP 16:11 → SUATTDRO 18:12 → 1E 18:19 → 4W 11-20 06:38